=== PATIENT | female | born 1950 | race African-American/Black ===

== ENCOUNTER 2017-03-07 15:52 | Emergency (ER) | payer MEDICAID ==
[~2017-03-07] VITALS: Ht 177.8 cm; Wt 117.9 kg
[~2017-03-07 15:52] MED LIST: AMLODIPINE BESY10 MG ORAL; CIPROFLOXACIN500 M2 ORAL; CYCLOBENZAPRINE10 MG ORAL; DOXAZOSIN MESYLA4 MG ORAL; FLAGYL500 MG ORAL; HYDROCHLOROTHIA25 MG ORAL; LEVAQUIN500 MG ORAL; METOPROLOL TAR100 MG ORAL; METRONIDAZOLE500 MG ORAL; NORCO 10/3251 EA ORAL; SIMVASTATIN40 MG ORAL; SOMA350 MG PO; TRAZODONE HCL150 MG ORAL; UNOBMED
[2017-03-07 16:10] VITALS: BP 177/98
[2017-03-07 16:34] LABS: BASOPHILS % (AUTO) 0.7 % (0.0-2.0); EOSINOPHILS % (AUTO) 0.3 % (0.0-3.0); LYMPHOCYTES % (AUTO) 22.5 % (20.0-45.0); MEAN CORPUSCULAR HEMOGLOBIN 29.1 PG (27.0-31.0); MEAN CORPUSCULAR HGB CONC 33.1 G/DL (32.0-36.0); MEAN CORPUSCULAR VOLUME 88 FL (80-99); MEAN PLATELET VOLUME 8.1 FL (6.5-10.1); MONOCYTES % (AUTO) 7.4 % (1.0-10.0); NEUTROPHILS % (AUTO) 69.1 % (45.0-75.0); PLATELET COUNT 207 K/UL (150-450); RED BLOOD COUNT 4.64 M/UL (4.20-5.40); RED CELL DISTRIBUTION WIDTH 13.4 % (11.6-14.8); WHITE BLOOD COUNT 6.3 K/UL (4.8-10.8)
[2017-03-07 16:52] LABS: TROPONIN I < 0.30 ng/mL (<=0.30)
[2017-03-07 16:53] LABS: ALANINE AMINOTRANSFERASE 14 U/L (3-33); ALBUMIN/GLOBULIN RATIO 1.1 (1.0-2.7); ANION GAP 18 (5-15); ASPARTATE AMINO TRANSFERASE 28 U/L (5-40); CALCIUM 10.5 mg/dL (8.6-10.2); CARBON DIOXIDE 26 mEQ/L (20-30); CHLORIDE 99 mEQ/L (98-107); CREATININE 0.9 mg/dL (0.5-0.9); GLOMERULAR FILTRATION RATE > 60 mL/min (>60); HEMOLYSIS 0; POTASSIUM 3.4 mEQ/L (3.4-4.9); SODIUM 143 mEQ/L (135-145); TOTAL PROTEIN 7.7 g/dL (6.6-8.7)
[2017-03-07 17:03] LABS: CKMB 2.6 ng/mL (< 3.8)
[2017-03-07] MEDS ORDERED: Cephalexin 500mg cap ORAL ONE (18:15)
[2017-03-07] MEDS ORDERED: KEFLEX500 MG ORAL (18:21)
[2017-03-07 18:32] VITALS: BP 178/63
--- NOTE | 2017-03-07 19:20 | Emergency Room Report ---
History of Present Illness General Chief Complaint: Altered Level of Consciousness Source: Patient Present Illness HPI 66-year-old female presents to ED for evaluation. Patient brought in by daughter. Daughter states she is concerned that the patient may be having a stroke. Patient had a fall last week and another fall yesterday. Patient does not live with daughter. Daughter spoke to the patient states that she appeared confused after the fall. Patient did not appear confused at this time. Patient states she fell because of pain in her knees; has history of chronic pain in both knees and is on medication. Pain is a 10 out of 10, throbbing, nonradiating. Denies any headache, blurry vision, nausea or vomiting. Denies chest pain or shortness of breath. BP high at triage. States she did not take her medication today. No other aggravating or relieving factors. Denies any other associated symptoms Allergies: Coded Allergies: LISINOPRIL (Verified Allergy, Unknown, Hives, 04/12/14) Patient History Past Medical History: HTN Past Surgical History: none Pertinent Family History: none Social History: Denies: alcohol use, drug use, smoking Now: No Immunizations: UTD Reviewed Nursing Documentation: PMH: Agreed, PSxH: Agreed Nursing Documentation-PMH Past Medical History: No History, Except For Hx Cardiac Problems: Yes Hx Hypertension: Yes Hx Pacemaker: No - CHRONIC NECK PAIN Hx Cancer: No Hx Gastrointestinal Problems: Yes Hx Neurological Problems: No Review of Systems All Other Systems: negative except mentioned in HPI Physical Exam Vital Signs Date Time Temp Pulse Resp B/P Pulse Ox O2 Delivery O2 Flow Rate FiO2 5/20/17 16:04 96.3 62 22 192/109 96 Room Air Sp02 EP Interpretation: reviewed, normal General Appearance: no apparent distress, alert, GCS 15, non-toxic, obese Head: normocephalic, atraumatic Eyes: bilateral eye PERRL, bilateral eye normal inspection ENT: hearing grossly normal, normal pharynx, no angioedema, normal voice Neck: full range of motion, supple/symm/no masses Respiratory: chest non-tender, lungs clear, normal breath sounds, speaking full sentences Cardiovascular #1: regular rate, rhythm, no edema Cardiovascular #2: 2+ carotid (R), 2+ carotid (L), 2+ radial (R), 2+ radial (L) , 2+ dorsalis pedis (R), 2+ dorsalis pedis (L) Gastrointestinal: normal bowel sounds, non tender, soft, non-distended, no guarding, no rebound Rectal: deferred Genitourinary: normal inspection, no CVA tenderness Musculoskeletal: back normal, gait/station normal, normal range of motion, swelling - bilateral knees Neurologic: alert, oriented x3, responsive, motor strength/tone normal, sensory intact, speech normal Psychiatric: judgement/insight normal, memory normal, mood/affect normal, no suicidal/homicidal ideation Reflexes: 3+ bicep (R), 3+ bicep (L), 3+ tricep (R), 3+ tricep (L), 3+ knee (R) , 3+ knee (L) Skin: other - erythema/induration to LLE Lymphatic: no adenopathy Medical Decision Making Diagnostic Impression: Primary Impression: Forgetfulness Additional Impressions: Chronic pain of both knees Cellulitis of left leg Hypertension Qualified Codes: I10 - Essential (primary) hypertension ER Course Hospital Course 66-year-old female presents to ED for evaluation of forgetfulness, fall x2, chronic knee pain. daughter concerned for stroke Differential diagnoses include: arrythmia, dehydration, intracranial bleed, seizure Clinical course Patient placed on stretcher. on front desk monitor. After initial history and physical I ordered labs, EKG, chest Xray, IVFs, CT Brain, xrays of bilateral knees labs reviewed- no leukocytosis, Hb/Hct stable, electrolytes ok, troponins negative CT Brain - unremarkable Chest x-ray- no acute process EKG - NSR, no acute changes During my assessment patient had normal neurological exam. No slurred speech facial droop. No motor deficit. Patient is awake alert oriented x3, normal memory. patient does have erythema and induration to distal LLE consistent with cellulitis given keflex in ED X-rays of bilateral knee show significant reduction of joint spacing consistent with arthritis BP initially elevated, with some improvement noted without acute intervention. We will give patient her evening dose of blood pressure medication I discussed findings with patient and daughter. He agreed that patient can be discharged to home at this time pending followup with PMD this week I. I feel this is a highly complex case requiring extensive working including EKG/Rhythm strip, Xray/CT/US, Blood/urine lab work, repeat exams while in ED, and administration of strong opiates/narcotics for pain control, admission to hospital or close patient follow up. Diagnosis - forgetfulness, chronic pain of both knees, cellulitis of left leg, hypertension Stable and discharged to home with Rx Keflex. Followup with PMD. Return to ED if symptoms recur or worsen Labs Test 03/07/17 16:15 White Blood Count 6.3 K/UL (4.8-10.8) Red Blood Count 4.64 M/UL (4.20-5.40) Hemoglobin 13.5 G/DL (12.0-16.0) Hematocrit 40.8 % (37.0-47.0) Mean Corpuscular Volume 88 FL (80-99) Mean Corpuscular Hemoglobin 29.1 PG (27.0-31.0) Mean Corpuscular Hemoglobin Concent 33.1 G/DL (32.0-36.0) Red Cell Distribution Width 13.4 % (11.6-14.8) Platelet Count 207 K/UL (150-450) Mean Platelet Volume 8.1 FL (6.5-10.1) Neutrophils (%) (Auto) 69.1 % (45.0-75.0) Lymphocytes (%) (Auto) 22.5 % (20.0-45.0) Monocytes (%) (Auto) 7.4 % (1.0-10.0) Eosinophils (%) (Auto) 0.3 % (0.0-3.0) Basophils (%) (Auto) 0.7 % (0.0-2.0) Sodium Level 143 mEQ/L (135-145) Potassium Level 3.4 mEQ/L (3.4-4.9) Chloride Level 99 mEQ/L (98-107) Carbon Dioxide Level 26 mEQ/L (20-30) Anion Gap 18 (5-15) Blood Urea Nitrogen 19 mg/dL (7-23) Creatinine 0.9 mg/dL (0.5-0.9) Estimat Glomerular Filtration Rate > 60 mL/min (>60) Glucose Level 122 mg/dL (74-106) Calcium Level 10.5 mg/dL (8.6-10.2) Total Bilirubin 0.5 mg/dL (0.0-1.2) Aspartate Amino Transf (AST/SGOT) 28 U/L (5-40) Alanine Aminotransferase (ALT/SGPT) 14 U/L (3-33) Alkaline Phosphatase 240 U/L (35-104) Total Creatine Kinase 88 U/L (26-140) Creatine Kinase MB 2.6 ng/mL (< 3.8) Creatine Kinase MB Relative Index 2.9 Troponin I < 0.30 ng/mL (<=0.30) Total Protein 7.7 g/dL (6.6-8.7) Albumin 4.1 g/dL (3.5-5.2) Globulin 3.6 g/dL Albumin/Globulin Ratio 1.1 (1.0-2.7) EKG Diagnostic Results Rate: normal Rhythm: NSR ST Segments: no acute changes ASA given to the pt in ED: No Rhythm Strip Diag. Results EP Interpretation: yes Rhythm: NSR, no PVC's, no ectopy Chest X-Ray Diagnostic Results EP Interpretation: Yes Findings: no consolidation, no effusion, no pneumothorax, no acute cardiopulmonary disease Number of Views: 1 CT/MRI/US Diagnostic Results CT/MRI/US Diagnostic Results : Imaging Test Ordered: CT Head Impression no acute process Last Vital Signs Date Time Temp Pulse Resp B/P Pulse Ox O2 Delivery O2 Flow Rate FiO2 03/07/17 18:32 62 15 178/63 98 Room Air 03/07/17 16:10 98.3 Status: improved Disposition: HOME, SELF-CARE Condition: Stable Scripts Cephalexin* (KEFLEX*) 500 Mg Capsule 500 MG ORAL Q6H, #28 CAP 0 Refills Prov: GREG LUTZ M.D. 03/07/17 Referrals: NON PHYSICIAN (PCP) Patient Instructions: Cellulitis GREG LUTZ M.D. March 07, 2017 19:20
--- NOTE | 2017-03-08 09:01 | Diagnostic Imaging Report ---
Indications: Fall, left knee injury and pain Technique: 3 views left knee. Findings: Comparison: None Suprapatellar bursa is mildly distended and increased attenuation. No associated fat fluid level. No fracture, dislocation, joint space widening , surrounding soft tissue swelling/foreign body/gas, or other acute changes are identified. Lateral knee joint compartment [place] narrowed with marginal osteophyte formation. IMPRESSION: Small suprapatellar effusion, nonspecific No other evidence of acute injury to the left knee lateral knee joint osteoarthritis.
--- NOTE | 2017-03-08 09:02 | Diagnostic Imaging Report ---
Indication: Fall, chest injury and pain Technique: Single portable AP view of the chest. Findings: Comparison: None. The bones and extra pulmonary soft tissues, cardiomediastinal silhouette, pulmonary vasculature and parenchyma, and pleural surfaces are unremarkable. IMPRESSION: Negative portable AP chest--no evidence of acute injury.
--- NOTE | 2017-03-08 09:04 | Diagnostic Imaging Report ---
Indications: Fall, syncope, altered mental status Technique: Continuous helical CT imaging of the brain was performed with nonionic exposure control on a Siemens sensation [address] scanner. Axial and coronal images were reconstructed at 5 mm slice thickness and interval. CTDI volume(s): 70 mGy Total DLP: 1421 mGy-cm Findings: Comparison: None [place] low attenuation is present in the bilateral periventricular white matter. Ventricles, cisterns, and sulci are diffusely prominent. No evidence of mass or hemorrhage, mass effect, midline shift, hydrocephalus, or increased intracranial pressure. Bone window images demonstrate diffuse calvarial sclerosis, are otherwise unremarkable. Visualized paranasal sinuses and mastoid air cells are clear. IMPRESSION: No evidence of acute injury or other acute intracranial pathology Bilateral cerebral periventricular white matter low attenuation, nonspecific, likely chronic microvascular ischemic in nature. Atrophy. Apparent diffuse calvarial sclerosis. Underlying metabolic disorder or chronic Dilantin effect may be considered. Written preliminary report placed in PACS 03/07/[address] scanner at [facility] is accredited by the [employer] and the scans are performed using protocols designed to limit radiation exposure to as low as reasonably achievable to attain images of sufficient resolution adequate for diagnostic evaluation.
--- NOTE | 2017-03-09 08:34 | Diagnostic Imaging Report ---
Indications: Fall, right knee injury and pain Technique: 3 views right knee. Findings: Comparison: None Suprapatellar bursa is mildly distended and increased attenuation. No associated fat fluid level. No fracture, dislocation, joint space widening , surrounding soft tissue swelling/foreign body/gas, or other acute changes are identified. Lateral knee joint compartment severely narrowed with marginal osteophyte formation, subchondral sclerosis and cyst formation. IMPRESSION: Small suprapatellar effusion, nonspecific No other evidence of acute injury to the right knee lateral knee joint osteoarthritis.
--- NOTE | 2017-03-10 18:38 | Cardiology Report ---
APPROVED REPORT EKG Measurement Heart [id number] Sinus bradycardia Biatrial enlargement Abnormal ECG
== END 2017-03-07 18:34 | disposition home or self-care (01) ==
LOC: EMR 16:28
DX: R41.3 Other amnesia (principal); G89.29 Other chronic pain; M25.562 Pain in left knee; M25.561 Pain in right knee; L03.116 Cellulitis of left lower limb; I10 Essential (primary) hypertension; Z91.81 History of falling; Z88.8 Allergy status to other drugs, medicaments and biological substances
CPT/HCPCS: 36415; 70450; 71010; 73562; 80053; 82550; 82553; 84484; 85025; 93005; 96360; 99284; J7040

== ENCOUNTER 2017-03-25 15:11 | Inpatient (IN) | payer MEDICAID ==
[~2017-03-25] VITALS: Ht 177.8 cm; Wt 113.4 kg
[~2017-03-25 15:11] MED LIST changes: +KEFLEX500 MG ORAL
[2017-03-25] MEDS ORDERED: Bacitracin Oint UD TOPIC ONE (15:45)
[2017-03-25] MEDS ORDERED: TdaP Vaccine 0.5ml Syr IM ONE (15:45)
[2017-03-25 15:55] LABS: ABG PCO2 55.8 mmHg (35.0-45.0)
[2017-03-25 15:56] LABS: ABG ALLEN TEST POSITIVE; ABG BASE EXCESS 1.2
[2017-03-25 16:00] VITALS: BP 110/64
[2017-03-25 16:09] LABS: BASOPHILS % (AUTO) 0.3 % (0.0-2.0); LYMPHOCYTES % (AUTO) 29.1 % (20.0-45.0); MEAN CORPUSCULAR HEMOGLOBIN 26.1 PG (27.0-31.0); MEAN CORPUSCULAR HGB CONC 30.4 G/DL (32.0-36.0); MEAN CORPUSCULAR VOLUME 86 FL (80-99); MEAN PLATELET VOLUME 8.6 FL (6.5-10.1); MONOCYTES % (AUTO) 9.7 % (1.0-10.0); NEUTROPHILS % (AUTO) 59.8 % (45.0-75.0); PLATELET COUNT 183 K/UL (150-450); RED BLOOD COUNT 4.93 M/UL (4.20-5.40); RED CELL DISTRIBUTION WIDTH 13.4 % (11.6-14.8); WHITE BLOOD COUNT 3.8 K/UL (4.8-10.8)
[2017-03-25 16:09] LABS: APPEARANCE,URINE CLEAR; KETONES,URINE NEGATIVE (NEGATIVE); LEUKOCYTE ESTERASE ,URINE NEGATIVE (NEGATIVE); NITRITE,URINE NEGATIVE (NEGATIVE); PH,URINE 6 (4.5-8.0); PROTEIN,URINE 2+ (NEGATIVE); UROBILINOGEN,URINE NORMAL MG/DL (0.0-1.0)
[2017-03-25 16:19] LABS: BACTERIA,URINE FEW /HPF; RBC,URINE 0-2 /HPF (0 - 2); SQUAMOUS EPITHELIAL CELL,UR FEW /LPF (NONE/OCC); WBC,URINE 0-2 /HPF (0 - 2)
[2017-03-25 16:32] LABS: ACETAMINOPHEN < 10 ug/mL (10-30); ALANINE AMINOTRANSFERASE 29 U/L (3-33); ALCOHOL < 10 mg/dL; ANION GAP 13 (5-15); ASPARTATE AMINO TRANSFERASE 48 U/L (5-40); CALCIUM 9.8 mg/dL (8.6-10.2); CARBON DIOXIDE 28 mEQ/L (20-30); CHLORIDE 99 mEQ/L (98-107); CREATININE 1.5 mg/dL (0.5-0.9); GLOMERULAR FILTRATION RATE 42.3 mL/min (>60); HEMOLYSIS 30; POTASSIUM 2.9 mEQ/L (3.4-4.9); SODIUM 140 mEQ/L (135-145); TOTAL PROTEIN 7.4 g/dL (6.6-8.7)
[2017-03-25 16:33] LABS: AMMONIA 41 umol/L (11-51)
--- NOTE | 2017-03-25 16:33 | Emergency Room Report ---
History of Present Illness General Chief Complaint: Altered Level of Consciousness Source: Patient, Medical Record Present Illness HPI The patient was brought to emergency department by a friend. She spoke with a friend earlier this morning sounded normal. When the friend's cane this afternoon the patient was diaphoretic and was not responsive. She had difficulty getting the patient into the hospital. The patient has had at least 2 episodes of decreased mentation recently. One was felt related to a fall. She was evaluated here for this problem with the CAT scan and discharged to home. It's uncertain whether she's had more falling episodes of. Review of her medications suggest that she's taking soma and other analgesics. Uncertain whether she's taken excessive amounts of his medications recently. The patient has is wound on her left lower leg. There is swelling on that leg. There is no history of clots in the past. The friend does not know of any history of fevers. The patient has a colostomy which was performed after having a bout of diverticulitis. Allergies: Coded Allergies: LISINOPRIL (Verified Allergy, Unknown, Hives, 04/12/14) Patient History Limited by: medical condition Past Medical History: see triage record, old chart reviewed Past Surgical History: other - colostomy Social History Narrative lives by herself Reviewed Nursing Documentation: PMH: Agreed, PSxH: Agreed Nursing Documentation-PMH Past Medical History: No History, Except For Hx Cardiac Problems: Yes Hx Hypertension: Yes Hx Pacemaker: No - CHRONIC NECK PAIN Hx Cancer: No Hx Gastrointestinal Problems: Yes Hx Neurological Problems: No Review of Systems All Other Systems: limited Physical Exam Vital Signs Date Time Temp Pulse Resp B/P Pulse Ox O2 Delivery O2 Flow Rate FiO2 03/25/17 15:32 98.2 58 14 101/60 95 Room Air Sp02 EP Interpretation: reviewed, normal General Appearance: no apparent distress, lethargic - will answer to name Head: normocephalic Eyes: bilateral eye PERRL - small pupils, bilateral eye normal inspection ENT: dry mucus membranes - gag present Neck: supple Respiratory: lungs clear, normal breath sounds, other - decreased tidal volume but sat OK Cardiovascular #1: regular rate, rhythm Cardiovascular #2: 2+ radial (R) Gastrointestinal: normal inspection, non tender, no mass, non-distended, abnormal bowel sounds - decreased Musculoskeletal: back normal, normal range of motion, swelling - L calf Neurologic: responsive, sensory intact - all 4 to pain Reflexes: 1+ knee (R), 1+ knee (L) Skin: warm/dry, abrasions - L lower leg with surrounding erythema Medical Decision Making Diagnostic Impression: Primary Impression: Altered level of consciousness Additional Impressions: Leg abrasion, infected Qualified Codes: S80.812D - Abrasion, left lower leg, subsequent encounter; L08.9 - Local infection of the skin and subcutaneous tissue, unspecified Renal insufficiency Hypokalemia ER Course The patient presents with lethargy and stupor. She's not diaphoretic at this time. She's had recurrent falls. We need to exclude intracranial bleed or subdural hematoma. She has a nonfocal neurologic exam at this time but mentation is clearly depressed -- she does answer to her name. Her mucous membranes are dry suggesting an element of dehydration. With lethargy and the fact that she has Soma and Leander excessive medication is a consideration. In the past we noted cellulitis of the left leg. There appears to be an infection however this doesn't appear to be the cause of her altered mentation. There's unilateral swelling and DVT needs to be excluded. Respiratory drive is depressed and an ABG will assess her respiratory status. An EKG will be obtained to exclude cardiac cause. EKG was read by the computer as a STEMI however this EKG reading was in error. Chest x-ray reveals hyperventilation but no infiltrates. Is mild cardiomegaly. Blood gas has moderate hypercardia. This will be observed and consideration for BiPAP in the future if her mentation does not improve. One consideration would be to treat with narcan, however, I am electing to observe. CT of the head is negative. Labs are significant for positive tox screen for opiates and benzodiazepines. (No benzo Rx recorded -- family consider possible source = boyfriend). Decision to give trial of narcan as she is still lethargic. Improved mentation after narcan. Ultrasound neg for DVT. EKG repeated as first suggested acute injury. (Troponin neg.) Repeat EKG NSR, 63, nl axis and normal ST segments. Renal insufficiency. Will treat low potassium. Admit Dr. Butron telemetry. Laboratory Tests Test 03/25/17 15:40 03/25/17 15:44 03/25/17 16:00 White Blood Count 3.8 K/UL (4.8-10.8) L Red Blood Count 4.93 M/UL (4.20-5.40) Hemoglobin 12.9 G/DL (12.0-16.0) Hematocrit 42.4 % (37.0-47.0) Mean Corpuscular Volume 86 FL (80-99) Mean Corpuscular Hemoglobin 26.1 PG (27.0-31.0) L Mean Corpuscular Hemoglobin Concent 30.4 G/DL (32.0-36.0) L Red Cell Distribution Width 13.4 % (11.6-14.8) Platelet Count 183 K/UL (150-450) Mean Platelet Volume 8.6 FL (6.5-10.1) Neutrophils (%) (Auto) 59.8 % (45.0-75.0) Lymphocytes (%) (Auto) 29.1 % (20.0-45.0) Monocytes (%) (Auto) 9.7 % (1.0-10.0) Eosinophils (%) (Auto) 1.0 % (0.0-3.0) Basophils (%) (Auto) 0.3 % (0.0-2.0) Sodium Level 140 mEQ/L (135-145) Potassium Level 2.9 mEQ/L (3.4-4.9) L Chloride Level 99 mEQ/L (98-107) Carbon Dioxide Level 28 mEQ/L (20-30) Anion Gap 13 (5-15) Blood Urea Nitrogen 23 mg/dL (7-23) Creatinine 1.5 mg/dL (0.5-0.9) H Estimate Glomerular Filtration Rate 42.3 mL/min (>60) Glucose Level 117 mg/dL (74-106) H Calcium Level 9.8 mg/dL (8.6-10.2) Total Bilirubin 0.3 mg/dL (0.0-1.2) Aspartate Amino Transferase (AST) 48 U/L (5-40) H Alanine Aminotransferase (ALT) 29 U/L (3-33) Alkaline Phosphatase 234 U/L (35-104) H Ammonia 41 umol/L (11-51) Total Creatine Kinase 80 U/L (26-140) Troponin I < 0.30 ng/mL (<=0.30) Total Protein 7.4 g/dL (6.6-8.7) Albumin 3.7 g/dL (3.5-5.2) Globulin 3.7 g/dL Albumin/Globulin Ratio 1.0 (1.0-2.7) Salicylates Level < 1 mg/dL (10-30) L Acetaminophen Level < 10 ug/mL (10-30) L Serum Alcohol < 10 mg/dL Arterial Blood pH 7.324 (7.350-7.450) Arterial Blood Partial Pressure CO2 55.8 mmHg (35.0-45.0) *H Arterial Blood Partial Pressure O2 67.3 mmHg (75.0-100.0) L Arterial Blood HCO3 28.4 mmol/L (22.0-26.0) H Arterial Blood Oxygen Saturation 91.5 % (92.0-98.0) L Arterial Blood Base Excess 1.2 Kelvin Test Positive Urine Color Yellow Urine Appearance Clear Urine pH 6 (4.5-8.0) Urine Specific [place] 1.020 (1.005-1.035) Urine Protein 2+ (NEGATIVE) H Urine Glucose (UA) Negative (NEGATIVE) Urine Ketones Negative (NEGATIVE) Urine Occult Blood Negative (NEGATIVE) Urine Nitrite Negative (NEGATIVE) Urine Bilirubin Negative (NEGATIVE) Urine Urobilinogen Normal MG/DL (0.0-1.0) Urine Leukocyte Esterase Negative (NEGATIVE) Urine RBC 0-2 /HPF (0 - 2) Urine WBC 0-2 /HPF (0 - 2) Urine Squamous Epithelial Cells Few /LPF (NONE/OCC) Urine Bacteria Few /HPF (NONE) Urine Opiates Screen Positive (NEGATIVE) H Urine Barbiturates Screen Negative (NEGATIVE) Phencyclidine (PCP) Screen Negative (NEGATIVE) Urine Amphetamines Screen Negative (NEGATIVE) Urine Benzodiazepines Screen Positive (NEGATIVE) H Urine Cocaine Screen Negative (NEGATIVE) Urine Marijuana (THC) Screen Negative (NEGATIVE) EKG Diagnostic Results Rate: normal Rhythm: NSR ST Segments: other - EKG read as STEMI - I disagree - RBBB and NSSTTW changes Rhythm Strip Diag. Results EP Interpretation: yes Rhythm: NSR, no PVC's, no ectopy Chest X-Ray Diagnostic Results EP Interpretation: Yes Findings: no consolidation, no effusion, no pneumothorax, no acute cardiopulmonary disease, other - poor inspiration Number of Views: 1 CT/MRI/US Diagnostic Results CT/MRI/US Diagnostic Results #1: Imaging Test Ordered: head Impression no bleed - white matter changes CT/MRI/US Diagnostic Results #2: Imaging Test Ordered: non-invasive L leg Impression No DVT Last Vital Signs Date Time Temp Pulse Resp B/P Pulse Ox O2 Delivery O2 Flow Rate FiO2 03/26/17 00:00 97.3 56 20 122/71 100 Room Air 03/25/17 21:46 2.0 03/25/17 21:26 28 Status: improved Disposition: ADMITTED INPATIENT Condition: Serious Referrals: [facility],REFERRING (PCP) Rafat Daniels M.D. Mar 25, 2017 16:33
[2017-03-25 16:37] LABS: TROPONIN I < 0.30 ng/mL (<=0.30)
[2017-03-25] MEDS ORDERED: Naloxone 1mg/ml 2ml IVP ONE (17:30)
[2017-03-25 18:00] VITALS: BP 184/90
[2017-03-25] MEDS ORDERED: BACLOFEN10 MG ORAL (18:24)
[2017-03-25] MEDS ORDERED: TRIAMTERENE-HC1 EAC7 ORAL (18:24)
[2017-03-25] MEDS ORDERED: KCl 10% 40mEq/30ml liquid ORAL STA (18:45)
[2017-03-25] MEDS ORDERED: LORazepam Inj 2mg/ml 1ml IV PRN (19:15)
[2017-03-25] MEDS ORDERED: Mylanta II UD 30ml ORAL PRN (19:15)
[2017-03-25] MEDS ORDERED: Nitroglycerin Subl 0.4mg tab (Bottle Of 25) SL PRN (19:15)
[2017-03-25] MEDS ORDERED: Miralax 17gm pkt ORAL PRN (19:15)
[2017-03-25] MEDS ORDERED: DuoNeb 0.5-3(2.5)mg/3ml neb HHN PRN (19:15)
[2017-03-25 20:00] VITALS: BP 123/68
[2017-03-25 21:00] VITALS: BP 126/64
[2017-03-25 21:46] VITALS: BP 118/71
[2017-03-25] MEDS: Heparin 5000 units/ml inj SUBQ SCH (21:51)
[2017-03-25] MEDS: Morphine Sulfate 2mg/ml Inj IVP PRN (23:45)
[2017-03-26] VITALS: BP 122/71
[2017-03-26] MEDS: Morphine Sulfate 2mg/ml Inj IVP PRN ×3 (03:53→08:19)
[2017-03-26 04:12] VITALS: BP 151/71
[2017-03-26 08:11] VITALS: BP 146/74
[2017-03-26] MEDS: Heparin 5000 units/ml inj SUBQ SCH (08:20)
--- NOTE | 2017-03-26 09:09 | Diagnostic Imaging Report ---
Indication: Chest Pain Comparison: A single view chest radiograph was obtained. Findings: Mild interstitial edema suspected. Lung volumes are low. Heart is enlarged. Impression: Mild interstitial edema suspected
--- NOTE | 2017-03-26 09:09 | Diagnostic Imaging Report ---
Indication: Altered level of consciousness Technique: Contiguous 5 mm thick transaxial imaging of the head obtained in a Siemens Sensation [address] scanner. Soft tissue and bone windows generated. Total Dose length Product (DLP): [address] Dose Index Volume (CTDIvol): 70.38 mGy Comparison: 03/07/17 Findings: There is mild prominence of the ventricles, basal cisterns, and cerebral sulci consistent with atrophy. Mild, nonspecific, white matter hypoattenuation is noted throughout the brain consistent with chronic small vessel disease. There is no midline shift, edema, acute hemorrhage, mass effect, or abnormal extra-axial fluid collections. Bones and extra osseous soft tissues are unremarkable. Impression: No acute intracranial bleed, mass effect or edema. Mild atrophy of the brain. Nonspecific white matter hypoattenuation probably due to chronic small vessel disease. The CT scanner at [facility] is accredited by the [employer] and the scans are performed using dose optimization techniques as appropriate to a performed exam including Automatic Exposure control.
--- NOTE | 2017-03-26 11:44 | History and Physical ---
History of Present Illness General Date patient seen: Mar 26, 2017 Reason for Hospitalization: Altered Level of Consciousness Present Illness HPI 66 year old female with hx of HTN, chronic pain, was brought to emergency department by a friend because she was not responsive. she's taking soma and other analgesics. Uncertain whether she's taken excessive amounts of his medications recently. She was admitted to telemetry for ALOC. Initial evaluation showed that she had opiotes and benzos in her urine. This morning she is totally awake and asymtomatic and wants to go home. Allergies: Coded Allergies: LISINOPRIL (Verified Allergy, Unknown, Hives, 04/12/14) Medication History Scheduled Amlodipine Besylate* (Amlodipine Besylate*), 10 MG ORAL DAILY, (Reported) Baclofen* (Baclofen*), 10 MG ORAL NEEDED, (Reported) Cephalexin* (Keflex*), 500 MG ORAL Q6H Cyclobenzaprine Hcl* (Flexeril*), 10 MG ORAL THREE TIMES A DAY Doxazosin Mesylate* (Doxazosin Mesylate*), 4 MG ORAL DAILY, (Reported) Hydrochlorothiazide* (Hydrochlorothiazide*), 25 MG ORAL DAILY, (Reported) Simvastatin (Zocor), 40 MG ORAL BEDTIME, (Reported) Trazodone* (Trazodone*), 200 MG ORAL BEDTIME, (Reported) Triamterene/Hydrochlorothiazid (Triamterene-Hctz 37.5-25 Mg Cp), 1 CAP ORAL DAILY, (Reported) Scheduled PRN Carisoprodol* (Soma*), 350 MG PO Q6H PRN for For Pain, (Reported) Hydrocodone/Acetaminophen (Hydrocodon-Acetaminophn 10-325), 1 TAB ORAL Q6H PRN for For Pain, (Reported) Patient History Healthcare decision maker Resuscitation status Full Code Advanced Directive on File Past Medical/Surgical History Past Medical/Surgical History: (1) Chronic pain of both knees (2) Pericolonic abscess due to diverticulitis Review of Systems All Other Systems: negative except mentioned in HPI Physical Exam General Appearance: WD/WN, no apparent distress Lines, tubes and drains: peripheral HEENT: normocephalic, atraumatic Neck: non-tender, normal alignment Respiratory/Chest: chest wall non-tender, lungs clear Cardiovascular/Chest: normal peripheral pulses, normal rate Abdomen: normal bowel sounds Skin Exam: normal pigmentation Last 24 Hour Vital Signs Date Time Temp Pulse Resp B/P Pulse Ox O2 Delivery O2 Flow Rate FiO2 03/26/17 08:11 95.9 66 18 146/74 99 Nasal Cannula 2.0 66 03/26/17 08:00 55 03/26/17 07:10 98 Nasal Cannula 2.0 28 03/26/17 07:10 69 18 Nasal Cannula 2.0 28 03/26/17 07:10 Nasal Cannula 2.0 28 03/26/17 07:09 Nasal Cannula 2.0 28 03/26/17 07:09 98 Nasal Cannula 2.0 28 03/26/17 07:09 69 18 Nasal Cannula 2.0 28 03/26/17 04:12 97.5 61 20 151/71 100 Nasal Cannula 2.0 03/26/17 04:00 67 03/26/17 00:00 97.3 56 20 122/71 100 Room Air 03/25/17 23:39 55 03/25/17 21:46 97.0 66 20 118/71 99 Nasal Cannula 2.0 03/25/17 21:26 Nasal Cannula 2.0 28 03/25/17 21:25 66 16 Nasal Cannula 2.0 03/25/17 21:25 99 Nasal Cannula 2.0 28 03/25/17 21:00 98.3 64 14 126/64 100 Nasal Cannula 2.0 03/25/17 21:00 98.3 64 14 126/64 100 Nasal Cannula 2.0 03/25/17 20:00 98.1 64 17 123/68 100 Nasal Cannula 2.0 03/25/17 18:40 184/90 03/25/17 18:00 61 18 184/90 95 Nasal Cannula 2.0 03/25/17 16:00 56 12 110/64 97 Nasal Cannula 2.0 03/25/17 15:32 98.2 58 14 101/60 95 Room Air Intake and Output 03/25/17 03/26/17 19:00 07:00 Intake Total 1050 ml 1238 ml Output Total 600 ml Balance 1050 ml 638 ml Intake Oral 0 ml IV Total 1050 ml 1238 ml Output Urine Total 600 ml # Bowel Movements 1 Laboratory Tests Test 03/25/17 15:40 03/25/17 15:44 03/25/17 16:00 White Blood Count 3.8 K/UL (4.8-10.8) L Red Blood Count 4.93 M/UL (4.20-5.40) Hemoglobin 12.9 G/DL (12.0-16.0) Hematocrit 42.4 % (37.0-47.0) Mean Corpuscular Volume 86 FL (80-99) Mean Corpuscular Hemoglobin 26.1 PG (27.0-31.0) L Mean Corpuscular Hemoglobin Concent 30.4 G/DL (32.0-36.0) L Red Cell Distribution Width 13.4 % (11.6-14.8) Platelet Count 183 K/UL (150-450) Mean Platelet Volume 8.6 FL (6.5-10.1) Neutrophils (%) (Auto) 59.8 % (45.0-75.0) Lymphocytes (%) (Auto) 29.1 % (20.0-45.0) Monocytes (%) (Auto) 9.7 % (1.0-10.0) Eosinophils (%) (Auto) 1.0 % (0.0-3.0) Basophils (%) (Auto) 0.3 % (0.0-2.0) Sodium Level 140 mEQ/L (135-145) Potassium Level 2.9 mEQ/L (3.4-4.9) L Chloride Level 99 mEQ/L (98-107) Carbon Dioxide Level 28 mEQ/L (20-30) Anion Gap 13 (5-15) Blood Urea Nitrogen 23 mg/dL (7-23) Creatinine 1.5 mg/dL (0.5-0.9) H Estimat Glomerular Filtration Rate 42.3 mL/min (>60) Glucose Level 117 mg/dL (74-106) H Calcium Level 9.8 mg/dL (8.6-10.2) Total Bilirubin 0.3 mg/dL (0.0-1.2) Aspartate Amino Transf (AST/SGOT) 48 U/L (5-40) H Alanine Aminotransferase (ALT/SGPT) 29 U/L (3-33) Alkaline Phosphatase 234 U/L (35-104) H Ammonia 41 umol/L (11-51) Total Creatine Kinase 80 U/L (26-140) Troponin I < 0.30 ng/mL (<=0.30) Total Protein 7.4 g/dL (6.6-8.7) Albumin 3.7 g/dL (3.5-5.2) Globulin 3.7 g/dL Albumin/Globulin Ratio 1.0 (1.0-2.7) Salicylates Level < 1 mg/dL (10-30) L Acetaminophen Level < 10 ug/mL (10-30) L Serum Alcohol < 10 mg/dL Arterial Blood pH 7.324 (7.350-7.450) Arterial Blood Partial Pressure CO2 55.8 mmHg (35.0-45.0) *H Arterial Blood Partial Pressure O2 67.3 mmHg (75.0-100.0) L Arterial Blood HCO3 28.4 mmol/L (22.0-26.0) H Arterial Blood Oxygen Saturation 91.5 % (92.0-98.0) L Arterial Blood Base Excess 1.2 Kelvin Test Positive Urine Color Yellow Urine Appearance Clear Urine pH 6 (4.5-8.0) Urine Specific [place] 1.020 (1.005-1.035) Urine Protein 2+ (NEGATIVE) H Urine Glucose (UA) Negative (NEGATIVE) Urine Ketones Negative (NEGATIVE) Urine Occult Blood Negative (NEGATIVE) Urine Nitrite Negative (NEGATIVE) Urine Bilirubin Negative (NEGATIVE) Urine Urobilinogen Normal MG/DL (0.0-1.0) Urine Leukocyte Esterase Negative (NEGATIVE) Urine RBC 0-2 /HPF (0 - 2) Urine WBC 0-2 /HPF (0 - 2) Urine Squamous Epithelial Cells Few /LPF (NONE/OCC) Urine Bacteria Few /HPF (NONE) Urine Opiates Screen Positive (NEGATIVE) H Urine Barbiturates Screen Negative (NEGATIVE) Phencyclidine (PCP) Screen Negative (NEGATIVE) Urine Amphetamines Screen Negative (NEGATIVE) Urine Benzodiazepines Screen Positive (NEGATIVE) H Urine Cocaine Screen Negative (NEGATIVE) Urine Marijuana (THC) Screen Negative (NEGATIVE) Height (Feet): 5 Height (Inches): 10.00 Weight (Pounds): 250 Medications Current Medications Medications (Trade) Dose Ordered Sig/Debbie Route PRN Reason Start Time Stop Time Status Last Admin Dose Admin Acetaminophen (Tylenol) 650 mg Q4H PRN ORAL fever 03/25/17 19:15 04/24/17 19:14 Al Hydroxide/Mg Hydroxide (Mylanta II) 30 ml Q6H PRN ORAL dyspepsia 03/25/17 19:15 04/24/17 19:14 Albuterol/ Ipratropium (DuoNeb 0.5-3(2.5)mg/3ml) 3 ml EVERY 4 HOURS PRN HHN Shortness of Breath 03/25/17 19:15 03/30/17 19:14 Clonidine HCl (Catapres) 0.1 mg Q4H PRN ORAL For High Blood Pressure 03/25/17 19:15 04/24/17 19:14 Dextrose (Dextrose 50%) STAT PRN IV Hypoglycemia 03/25/17 19:15 04/24/17 19:14 Heparin Sodium (Porcine) (Heparin 5000 units/ml) 5,000 units EVERY 12 HOURS SUBQ 03/25/17 21:00 04/24/17 20:59 03/26/17 08:20 Lorazepam (Ativan 2mg/ml 1ml) 0.5 mg Q4H PRN IV For Anxiety 03/25/17 19:15 04/01/17 19:14 Morphine Sulfate (Morphine Sulfate) 1 mg EVERY 4 HOURS PRN IVP For Pain 7-03/25/17 19:15 04/01/17 19:14 03/26/17 08:19 Nitroglycerin (Ntg) 0.4 mg Q5M X 3 DOSES PRN SL Prn Chest Pain 03/25/17 19:15 04/24/17 19:14 Ondansetron HCl (Zofran) 4 mg Q6H PRN IVP Nausea & Vomiting 03/25/17 19:15 04/24/17 19:14 Polyethylene Glycol (Miralax) 17 gm HSPRN PRN ORAL Constipation 03/25/17 19:15 04/24/17 19:14 Sodium Chloride (Sodium Chloride 1000ml bag) 1,000 ml @ 150 mls/hr Q6H40M IV 03/25/17 15:45 04/24/17 15:44 03/26/17 05:58 Temazepam (Restoril) 15 mg HSPRN PRN ORAL Insomnia 03/25/17 19:15 04/01/17 19:14 Assessment/Plan Problem List: (1) Altered level of consciousness ICD Codes: R40.4 - Transient alteration of awareness SNOMED: 3081537 (2) Chronic pain of both knees ICD Codes: M25.561 - Pain in right knee; M25.562 - Pain in left knee; G89.29 - Other chronic pain SNOMED: 51274728, 16724881 (3) Hypokalemia ICD Codes: E87.6 - Hypokalemia SNOMED: 81513767, [id number] Assessment/Plan improved dc home with outpatient psych evaluation no suicidal intention was noticed TATYANA PALOMINO Mar 26, 2017 11:43
[2017-03-26 12:00] VITALS: BP 121/72
--- NOTE | 2017-03-27 12:15 | Discharge Summary ---
Discharge Summary Hospital Course Date of Admission Mar 25, 2017 at 15:50 Date of Discharge Mar 26, 2017 at 13:37 Admitting Diagnosis stupor HPI Hilaria Hayward is a 66 year old female who was admitted on Mar 25, 2017 at 15:50 for [facility] Hospital Course [id number] Discharge Discharge Disposition Patient was discharged to Home (01) Discharge Diagnoses: Wendi Moore NP Mar 27, 2017 12:15
--- NOTE | 2017-03-28 01:45 | Discharge Summary 2 SIG ---
DATE OF ADMISSION: 03/25/2017 DATE OF DISCHARGE: 03/26/2017 BRIEF HOSPITAL COURSE: The patient is a 66-year-old female, who was brought in by a friend due to altered level of consciousness. The patient was reported to be normal earlier in the morning and in the afternoon was diaphoretic and was not responsive. She had at least two episodes of decreased mentation recently. She was evaluated prior for same problems and CAT scan was done and was discharged home. Review of her medications suggest that she is on Soma and other analgesics and had a wound on the left leg with swelling. On evaluation at ED, she had nonfocal neurologic examination, but mentation was clearly depressed. Chest x-ray showed hyperventilation, but no infiltrates. Blood gas has moderate hypercapnia. CT of the head was negative. Urine toxicology was positive for opiates and benzodiazepines. She was given Narcan. Ultrasound of the leg was negative for DVT. Laboratories showed low potassium and renal insufficiency. EKG repeat showed normal sinus rhythm with normal axis and normal ST segments. She was unstable for transfer and was admitted to telemetry. Following day, the patient is fully awake and asymptomatic. Symptoms improved and the patient was discharged home. Recommended outpatient psychiatric evaluation. FINAL DIAGNOSES: 1. Altered level of consciousness/acute toxic metabolic encephalopathy. 2. Chronic pain on both knees. 3. Hypokalemia. Murray Burton M.D. I have been assigned to dictate discharge summary on this account and I was not involved in the patient's management. Wendi Moore N.P. DR: NICOLE JOB#: [id number] CC:
== END 2017-03-26 13:37 | disposition home or self-care (01) | DRG 52 ==
LOC: EMR 15:40 → 2E 15:50 → EDBEDREQ 20:01 → 2E 21:17
DX: G92 Toxic encephalopathy (principal); I10 Essential (primary) hypertension; E87.6 Hypokalemia; E86.0 Dehydration; G89.29 Other chronic pain; M25.562 Pain in left knee; L08.9 Local infection of the skin and subcutaneous tissue, unspecified; M25.561 Pain in right knee; N28.9 Disorder of kidney and ureter, unspecified; Z91.81 History of falling
CPT/HCPCS: 36415; 36600; 70450; 71010; 80053; 80300; 80329; 81003; 82140; 82550; 82803; 84484; 85025; 90471; 90715; 93005; 93306; 93880; 93971; 94664; 94760; J2310

== ENCOUNTER 2017-04-17 12:03 | Inpatient (IN) | payer MEDICAID ==
[~2017-04-17] VITALS: Ht 175.3 cm; Wt 95.3 kg
[~2017-04-17 12:03] MED LIST changes: +BACLOFEN10 MG ORAL; +TRIAMTERENE-HC1 EAC7 ORAL
[2017-04-17 12:40] LABS: BASOPHILS % (AUTO) 0.2 % (0.0-2.0); EOSINOPHILS % (AUTO) 0.1 % (0.0-3.0); LYMPHOCYTES % (AUTO) 13.3 % (20.0-45.0); MEAN CORPUSCULAR HEMOGLOBIN 27.8 PG (27.0-31.0); MEAN CORPUSCULAR HGB CONC 31.4 G/DL (32.0-36.0); MEAN CORPUSCULAR VOLUME 88 FL (80-99); MEAN PLATELET VOLUME 8.2 FL (6.5-10.1); NEUTROPHILS % (AUTO) 80.6 % (45.0-75.0); PLATELET COUNT 205 K/UL (150-450); RED BLOOD COUNT 4.73 M/UL (4.20-5.40); WHITE BLOOD COUNT 6.1 K/UL (4.8-10.8)
[2017-04-17 12:45] VITALS: BP 156/62
[2017-04-17 12:52] LABS: ACETAMINOPHEN < 10 ug/mL (10-30); ALANINE AMINOTRANSFERASE 23 U/L (3-33); ALBUMIN/GLOBULIN RATIO 0.9 (1.0-2.7); ALCOHOL < 10 mg/dL; ANION GAP 17 (5-15); ASPARTATE AMINO TRANSFERASE 101 U/L (5-40); CARBON DIOXIDE 24 mEQ/L (20-30); CHLORIDE 101 mEQ/L (98-107); CREATININE 1.5 mg/dL (0.5-0.9); GLOMERULAR FILTRATION RATE 42.3 mL/min (>60); HEMOLYSIS 6; POTASSIUM 3.4 mEQ/L (3.4-4.9); SODIUM 142 mEQ/L (135-145); TOTAL PROTEIN 8.1 g/dL (6.6-8.7)
[2017-04-17 12:56] LABS: AMMONIA 13 umol/L (11-51)
[2017-04-17 13:21] LABS: TROPONIN I < 0.30 ng/mL (<=0.30)
--- NOTE | 2017-04-17 13:25 | Emergency Room Report ---
History of Present Illness General Chief Complaint: Altered Level of Consciousness Source: Medical Record, EMS Present Illness HPI The patient was brought in with altered mental status. She came in via EMS. Her Accu-Chek was normal. She is unable to answer questions at this time. Paramedics did not get a focal neurologic exam. She's not cooperative for them. Eyes are open but she's not focalizing or responding to commands. Apparently, her colostomy broke at home. Apparently her boyfriend called daughter who then called 911. Glucose normal in field. She has many pain medicines. She had a similar presentation and was admitted 03/25, discharged next day. This was the admission note: The patient was brought to emergency department by a friend. She spoke with a friend earlier this morning sounded normal. When the friend's cane this afternoon the patient was diaphoretic and was not responsive. She had difficulty getting the patient into the hospital. The patient has had at least 2 episodes of decreased mentation recently. One was felt related to a fall. She was evaluated here for this problem with the CAT scan and discharged to home. It's uncertain whether she's had more falling episodes of. Review of her medications suggest that she's taking soma and other analgesics. Uncertain whether she's taken excessive amounts of his medications recently. The patient has is wound on her left lower leg. There is swelling on that leg. There is no history of clots in the past. The friend does not know of any history of fevers. The patient has a colostomy which was performed after having a bout of diverticulitis. Discharge Dx: 1. Altered level of consciousness/acute toxic metabolic encephalopathy. 2. Chronic pain on both knees. 3. Hypokalemia. Allergies: Coded Allergies: LISINOPRIL (Verified Allergy, Unknown, Hives, 04/12/14) Patient History Limited by: medical condition Past Medical History: see triage record Social History: Reports: drug use - RX, Denies: smoking Social History Narrative with boyfriend Reviewed Nursing Documentation: PMH: Agreed, PSxH: Agreed Nursing Documentation-PMH Past Medical History: No History, Except For Hx Cardiac Problems: Yes Hx Hypertension: Yes Hx Pacemaker: No - CHRONIC NECK PAIN Hx Cancer: No Hx Gastrointestinal Problems: Yes Hx Neurological Problems: No Review of Systems All Other Systems: limited Physical Exam Vital Signs Date Time Temp Pulse Resp B/P Pulse Ox O2 Delivery O2 Flow Rate FiO2 04/17/17 11:52 99.1 75 16 174/85 99 Room Air Sp02 EP Interpretation: reviewed, normal General Appearance: no apparent distress, non-toxic, Stupor - minimal response to pain Head: normocephalic, atraumatic Eyes: bilateral eye EOMI, bilateral eye PERRL ENT: moist mucus membranes Neck: supple Respiratory: lungs clear, normal breath sounds Cardiovascular #1: regular rate, rhythm Cardiovascular #2: 2+ radial (R) Gastrointestinal: normal inspection, normal bowel sounds, non tender, no mass, non-distended Musculoskeletal: back normal, gait/station normal, normal range of motion Neurologic: other - + gag, min withdrawal to pain Psychiatric: other - stupor Skin: other - pressure sore L cheek Medical Decision Making Diagnostic Impression: Primary Impression: Stupor Additional Impression: Polypharmacy overdose ER Course Patient presents with ALOC. DDx: OD, electrolyte abnormalities, CVA, bleed, encephalopathy from other sources, occult infection (amongst others). Needs emergent evaluation with labs, EKG, CT head. Patient protecting airway at the time. The patient is in a stupor. She's protecting her airway at this time. However were going to give her a test dose of Narcan to make sure that she responds. Patient some more responsive after narcan. Still stuporous. ABG not need intubation. Consideration for narcan drip - Gag still present, ABG no resp acidosis - stable without drip. Admit tele Dr. Burton. Contact Dr Gilbert for consultation Laboratory Tests Test 04/17/17 12:10 04/17/17 13:45 04/17/17 14:45 White Blood Count 6.1 K/UL (4.8-10.8) Red Blood Count 4.73 M/UL (4.20-5.40) Hemoglobin 13.1 G/DL (12.0-16.0) Hematocrit 41.8 % (37.0-47.0) Mean Corpuscular Volume 88 FL (80-99) Mean Corpuscular Hemoglobin 27.8 PG (27.0-31.0) Mean Corpuscular Hemoglobin Concent 31.4 G/DL (32.0-36.0) L Red Cell Distribution Width 14.0 % (11.6-14.8) Platelet Count 205 K/UL (150-450) Mean Platelet Volume 8.2 FL (6.5-10.1) Neutrophils (%) (Auto) 80.6 % (45.0-75.0) H Lymphocytes (%) (Auto) 13.3 % (20.0-45.0) L Monocytes (%) (Auto) 6.0 % (1.0-10.0) Eosinophils (%) (Auto) 0.1 % (0.0-3.0) Basophils (%) (Auto) 0.2 % (0.0-2.0) Sodium Level 142 mEQ/L (135-145) Potassium Level 3.4 mEQ/L (3.4-4.9) Chloride Level 101 mEQ/L (98-107) Carbon Dioxide Level 24 mEQ/L (20-30) Anion Gap 17 (5-15) H Blood Urea Nitrogen 36 mg/dL (7-23) H Creatinine 1.5 mg/dL (0.5-0.9) H Estimate Glomerular Filtration Rate 42.3 mL/min (>60) Glucose Level 158 mg/dL (74-106) H Lactic Acid Level 1.30 mmol/L (0.66-2.22) Calcium Level 10.0 mg/dL (8.6-10.2) Total Bilirubin 0.4 mg/dL (0.0-1.2) Aspartate Amino Transferase (AST) 101 U/L (5-40) H Alanine Aminotransferase (ALT) 23 U/L (3-33) Alkaline Phosphatase 173 U/L (35-104) H Ammonia 13 umol/L (11-51) Total Creatine Kinase 3554 U/L (26-140) H Troponin I < 0.30 ng/mL (<=0.30) Total Protein 8.1 g/dL (6.6-8.7) Albumin 3.9 g/dL (3.5-5.2) Globulin 4.2 g/dL Albumin/Globulin Ratio 0.9 (1.0-2.7) L Salicylates Level < 1 mg/dL (10-30) L Acetaminophen Level < 10 ug/mL (10-30) L Serum Alcohol < 10 mg/dL Urine Color Pale yellow Urine Appearance Clear Urine pH 5 (4.5-8.0) Urine Specific [place] 1.015 (1.005-1.035) Urine Protein 1+ (NEGATIVE) H Urine Glucose (UA) Negative (NEGATIVE) Urine Ketones Negative (NEGATIVE) Urine Occult Blood 5+ (NEGATIVE) H Urine Nitrite Negative (NEGATIVE) Urine Bilirubin Negative (NEGATIVE) Urine Urobilinogen Normal MG/DL (0.0-1.0) Urine Leukocyte Esterase Negative (NEGATIVE) Urine RBC 2-4 /HPF (0 - 2) H Urine WBC 0-2 /HPF (0 - 2) Urine Squamous Epithelial Cells Few /LPF (NONE/OCC) Urine Bacteria Few /HPF (NONE) Urine Hyaline Casts 0-2 /LPF (NONE) H Urine Opiates Screen Positive (NEGATIVE) H Urine Barbiturates Screen Negative (NEGATIVE) Phencyclidine (PCP) Screen Negative (NEGATIVE) Urine Amphetamines Screen Negative (NEGATIVE) Urine Benzodiazepines Screen Positive (NEGATIVE) H Urine Cocaine Screen Negative (NEGATIVE) Urine Marijuana (THC) Screen Negative (NEGATIVE) Arterial Blood pH 7.400 (7.350-7.450) Arterial Blood Partial Pressure CO2 38.2 mmHg (35.0-45.0) Arterial Blood Partial Pressure O2 73.8 mmHg (75.0-100.0) L Arterial Blood HCO3 23.2 mmol/L (22.0-26.0) Arterial Blood Oxygen Saturation 94.7 % (92.0-98.0) Arterial Blood Base Excess -1.3 Kelvin Test Positive EKG Diagnostic Results Rate: normal Rhythm: NSR ST Segments: no acute changes Rhythm Strip Diag. Results EP Interpretation: yes Rhythm: NSR, no PVC's, no ectopy Chest X-Ray Diagnostic Results Chest X-Ray Diagnostic Results : Chest X-Ray Ordered: Yes # of Views/Limited/Complete: 1 View EP Interpretation: Yes Interpretation: no consolidation, no effusion, no pneumothorax, no acute cardiopulmonary disease Indication: Other Impression: No acute disease Interpreting ER Provider: Electronically signed by Rafat Daniels MD Last Vital Signs Date Time Temp Pulse Resp B/P Pulse Ox O2 Delivery O2 Flow Rate FiO2 04/18/17 00:00 96 04/18/17 00:00 98.2 20 169/78 97 Room Air Status: improved Disposition: ADMITTED INPATIENT Condition: Serious Referrals: [facility],REFERRING (PCP) Rafat Daniels M.D. Apr 17, 2017 13:25
[2017-04-17] MEDS ORDERED: CYMBALTA60 MG ORAL (13:33)
[2017-04-17] MEDS ORDERED: PROMETHAZINE V473 ML PO (13:33)
[2017-04-17] MEDS ORDERED: GABAPENTIN300 MG ORAL (13:33)
[2017-04-17] MEDS ORDERED: DICLOFENAC SODI75 MG ORAL (13:36)
[2017-04-17] MEDS ORDERED: METOPROLOL TAR100 M1 ORAL (13:36)
[2017-04-17] MEDS ORDERED: BACTRIM-DS1 EA ORAL (13:38)
[2017-04-17 13:47] VITALS: BP 150/74
--- NOTE | 2017-04-17 13:49 | Diagnostic Imaging Report ---
Indications: Altered mental status Technique: Spiral acquisitions obtained through the brain. Angled axial and coronal 5 x 5 mm slices were reconstructed. Total dose length product 1495 mGycm. CTDI vol(s) 70 mGy. Dose reduction achieved using automated exposure control Comparison: 03/25/2017 Findings: Again demonstrated is prominence of the ventricles and extra-axial CSF spaces, particularly the former. No acute hemorrhage or edema. No mass effect or midline shift. Normal galindo-white differentiation. Visualized orbits and sinuses are unremarkable. Intact calvarium. Impression: Chronic and age-related changes, as described, stable since 03/25/2017. Negative for acute intracranial bleed or mass effect The CT scanner at [facility] is accredited by the [employer] and the scans are performed using protocols designed to limit radiation exposure to as low as reasonably achievable to attain images of sufficient resolution adequate for diagnostic evaluation.
[2017-04-17 13:58] LABS: APPEARANCE,URINE CLEAR; KETONES,URINE NEGATIVE (NEGATIVE); LEUKOCYTE ESTERASE ,URINE NEGATIVE (NEGATIVE); NITRITE,URINE NEGATIVE (NEGATIVE); PH,URINE 5 (4.5-8.0); PROTEIN,URINE 1+ (NEGATIVE); UROBILINOGEN,URINE NORMAL MG/DL (0.0-1.0)
[2017-04-17] MEDS ORDERED: Naloxone 1mg/ml 2ml IVP ONE (14:00)
[2017-04-17 14:10] LABS: BACTERIA,URINE FEW /HPF; HYALINE CASTS, URINE 0-2 /LPF; SQUAMOUS EPITHELIAL CELL,UR FEW /LPF (NONE/OCC); WBC,URINE 0-2 /HPF (0 - 2)
[2017-04-17 14:56] LABS: ABG ALLEN TEST POSITIVE; ABG BASE EXCESS -1.3; ABG PCO2 38.2 mmHg (35.0-45.0)
--- NOTE | 2017-04-17 15:08 | Diagnostic Imaging Report ---
Indication: Chest pain Technique: One view of the chest Comparison: 03/25/2017 Findings: The lungs and pleural spaces are clear. Heart size is upper limits of normal. There are degenerative changes of the thoracic spine. No significant change Impression: No acute process
[2017-04-17 16:14] VITALS: BP 210/82
--- NOTE | 2017-04-17 16:19 | History and Physical ---
History of Present Illness General Date patient seen: Apr 17, 2017 Time patient seen: 15:30 Reason for Hospitalization: Altered Level of Consciousness Present Illness HPI 66 y/old female was brought in with altered mental status. Boyfriend found her lying on the floor and called her daughter. who in turn called paramedics Accu-Chek was stable, WNL She was unable to answer questions at that time. Eyes were open but she' was not focalizing or responding to commands. patient was afebrile, no leucocytosis CT head no acute findings CXR no acute findings CK -3554 elevated blood pressure , highest 210/82 elevated alkaline phosphatase BUN 36 and creat 1.6 Narcan x 1 given, brief response, then fell in sleep again ABG no evidence of respiratory acidosis patient was able to protect her airway/intact gag reflex patient was admitted to telemetry floor Allergies: Coded Allergies: LISINOPRIL (Verified Allergy, Unknown, Hives, 04/12/14) Medication History Scheduled Amlodipine Besylate* (Amlodipine Besylate*), 10 MG ORAL DAILY, (Reported) Baclofen* (Baclofen*), 10 MG ORAL NEEDED, (Reported) Cephalexin* (Keflex*), 500 MG ORAL Q6H Cyclobenzaprine Hcl* (Flexeril*), 10 MG ORAL THREE TIMES A DAY Diclofenac Sod* (Voltaren*), 75 MG ORAL BID, (Reported) Doxazosin Mesylate* (Doxazosin Mesylate*), 4 MG ORAL DAILY, (Reported) Duloxetine Hcl* (Cymbalta*), 60 MG ORAL BID, (Reported) Gabapentin* (Gabapentin*), 300 MG ORAL BEDTIME, (Reported) Hydrochlorothiazide* (Hydrochlorothiazide*), 25 MG ORAL DAILY, (Reported) Metoprolol Tartrate* (Metoprolol Tartrate*), 100 MG ORAL EVERY 12 HOURS, ( Reported) Simvastatin (Zocor), 40 MG ORAL BEDTIME, (Reported) Trazodone* (Trazodone*), 200 MG ORAL BEDTIME, (Reported) Triamterene/Hydrochlorothiazid (Triamterene-Hctz 37.5-25 Mg Cp), 1 CAP ORAL DAILY, (Reported) Trimethoprim/Sulfamethoxazole (Bactrim Ds Tablet), 1 TAB ORAL TWICE A DAY, ( Reported) Scheduled PRN Carisoprodol* (Soma*), 350 MG PO Q6H PRN for For Pain, (Reported) Hydrocodone/Acetaminophen (Hydrocodon-Acetaminophn 10-325), 1 TAB ORAL Q6H PRN for For Pain, (Reported) Miscellaneous Medications Phenylephrine HCl/Prometh HCl (Promethazine Vc Syrup), Unknown Dose PO, ( Reported) Patient History Limited by: medical condition History Provided By: Family Member Healthcare decision maker Resuscitation status Advanced Directive on File Past Medical/Surgical History Past Medical/Surgical History: (1) Sciatica neuralgia (2) Chronic back pain (3) Hypertension (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 Review of Systems ROS Narrative unable to collect due to ALOC Physical Exam General Appearance: no apparent distress, lethargic Lines, tubes and drains: peripheral HEENT: normocephalic, atraumatic, anicteric Neck: supple Respiratory/Chest: chest wall non-tender, lungs clear, no respiratory distress , no accessory muscle use Cardiovascular/Chest: normal peripheral pulses, normal rate, regular rhythm, other - edema +1 BLE Abdomen: normal bowel sounds, non tender - obese, soft Skin Exam: warm/dry, other - abrasion L cheek and left forearm Neurologic: other - lethargic Musculoskeletal: normal muscle bulk Last 24 Hour Vital Signs Date Time Temp Pulse Resp B/P Pulse Ox O2 Delivery O2 Flow Rate FiO2 04/17/17 15:12 203/92 04/17/17 13:47 66 20 150/74 99 Room Air 04/17/17 12:45 97.6 69 22 156/62 100 Room Air 04/17/17 11:52 99.1 75 16 174/85 99 Room Air Laboratory Tests Test 04/17/17 12:10 04/17/17 13:45 04/17/17 14:45 White Blood Count 6.1 K/UL (4.8-10.8) Red Blood Count 4.73 M/UL (4.20-5.40) Hemoglobin 13.1 G/DL (12.0-16.0) Hematocrit 41.8 % (37.0-47.0) Mean Corpuscular Volume 88 FL (80-99) Mean Corpuscular Hemoglobin 27.8 PG (27.0-31.0) Mean Corpuscular Hemoglobin Concent 31.4 G/DL (32.0-36.0) L Red Cell Distribution Width 14.0 % (11.6-14.8) Platelet Count 205 K/UL (150-450) Mean Platelet Volume 8.2 FL (6.5-10.1) Neutrophils (%) (Auto) 80.6 % (45.0-75.0) H Lymphocytes (%) (Auto) 13.3 % (20.0-45.0) L Monocytes (%) (Auto) 6.0 % (1.0-10.0) Eosinophils (%) (Auto) 0.1 % (0.0-3.0) Basophils (%) (Auto) 0.2 % (0.0-2.0) Sodium Level 142 mEQ/L (135-145) Potassium Level 3.4 mEQ/L (3.4-4.9) Chloride Level 101 mEQ/L (98-107) Carbon Dioxide Level 24 mEQ/L (20-30) Anion Gap 17 (5-15) H Blood Urea Nitrogen 36 mg/dL (7-23) H Creatinine 1.5 mg/dL (0.5-0.9) H Estimat Glomerular Filtration Rate 42.3 mL/min (>60) Glucose Level 158 mg/dL (74-106) H Lactic Acid Level 1.30 mmol/L (0.66-2.22) Calcium Level 10.0 mg/dL (8.6-10.2) Total Bilirubin 0.4 mg/dL (0.0-1.2) Aspartate Amino Transf (AST/SGOT) 101 U/L (5-40) H Alanine Aminotransferase (ALT/SGPT) 23 U/L (3-33) Alkaline Phosphatase 173 U/L (35-104) H Ammonia 13 umol/L (11-51) Total Creatine Kinase 3554 U/L (26-140) H Troponin I < 0.30 ng/mL (<=0.30) Total Protein 8.1 g/dL (6.6-8.7) Albumin 3.9 g/dL (3.5-5.2) Globulin 4.2 g/dL Albumin/Globulin Ratio 0.9 (1.0-2.7) L Salicylates Level < 1 mg/dL (10-30) L Acetaminophen Level < 10 ug/mL (10-30) L Serum Alcohol < 10 mg/dL Urine Color Pale yellow Urine Appearance Clear Urine pH 5 (4.5-8.0) Urine Specific [place] 1.015 (1.005-1.035) Urine Protein 1+ (NEGATIVE) H Urine Glucose (UA) Negative (NEGATIVE) Urine Ketones Negative (NEGATIVE) Urine Occult Blood 5+ (NEGATIVE) H Urine Nitrite Negative (NEGATIVE) Urine Bilirubin Negative (NEGATIVE) Urine Urobilinogen Normal MG/DL (0.0-1.0) Urine Leukocyte Esterase Negative (NEGATIVE) Urine RBC 2-4 /HPF (0 - 2) H Urine WBC 0-2 /HPF (0 - 2) Urine Squamous Epithelial Cells Few /LPF (NONE/OCC) Urine Bacteria Few /HPF (NONE) Urine Hyaline Casts 0-2 /LPF (NONE) H Urine Opiates Screen Positive (NEGATIVE) H Urine Barbiturates Screen Negative (NEGATIVE) Phencyclidine (PCP) Screen Negative (NEGATIVE) Urine Amphetamines Screen Negative (NEGATIVE) Urine Benzodiazepines Screen Positive (NEGATIVE) H Urine Cocaine Screen Negative (NEGATIVE) Urine Marijuana (THC) Screen Negative (NEGATIVE) Arterial Blood pH 7.400 (7.350-7.450) Arterial Blood Partial Pressure CO2 38.2 mmHg (35.0-45.0) Arterial Blood Partial Pressure O2 73.8 mmHg (75.0-100.0) L Arterial Blood HCO3 23.2 mmol/L (22.0-26.0) Arterial Blood Oxygen Saturation 94.7 % (92.0-98.0) Arterial Blood Base Excess -1.3 Kelvin Test Positive Height (Feet): 5 Height (Inches): 9.00 Weight (Pounds): 210 Medications Current Medications Medications (Trade) Dose Ordered Sig/Debbie Route PRN Reason Start Time Stop Time Status Last Admin Dose Admin Sodium Chloride (Sodium Chloride 1000ml bag) 1,000 ml @ 300 mls/hr Q3H20M IV 04/17/17 12:15 05/17/17 12:14 04/17/17 12:33 Assessment/Plan Assessment/Plan ASSESSMENT acute toxic encephalopathy 2 to overdose overdose on pain medications rhabdo acute renal failure HTN urgency colostomy PLAN OF CARE admit to tele s/p Narcan CT head no acute intracranial pathology urine tox screen + benzo and opiates gag intact, will hold on Narcan gtt for now neuro checks and gag reflex q2 IVF monitor renal parameters, lytes trend CK renal US BP management with IV Hydralazine DVT prophylaxis wound nurse eval psych eval case discussed and evaluated by supervising physician Jason (Esther),Mary CHAIREZ Apr 17, 2017 16:19
[2017-04-17] MEDS ORDERED: DuoNeb 0.5-3(2.5)mg/3ml neb HHN PRN (16:30)
[2017-04-17 17:01] VITALS: BP 175/75
[2017-04-17] MEDS: D5 1/2NS 1,000 ML IV SCH (17:30)
[2017-04-17 17:47] VITALS: BP 136/60
[2017-04-17 20:00] VITALS: BP_SYST 137; BP_SYST 161; BP_DIAS 71; BP_DIAS 90
[2017-04-17] MEDS: Heparin 5000 units/ml inj SUBQ SCH (21:22)
[2017-04-18] VITALS: BP 169/78
[2017-04-18 04:00] VITALS: BP 161/87
[2017-04-18 06:36] LABS: BASOPHILS % (AUTO) 0.8 % (0.0-2.0); EOSINOPHILS % (AUTO) 0.8 % (0.0-3.0); LYMPHOCYTES % (AUTO) 22.6 % (20.0-45.0); MEAN CORPUSCULAR HEMOGLOBIN 27.5 PG (27.0-31.0); MEAN CORPUSCULAR HGB CONC 31.2 G/DL (32.0-36.0); MEAN CORPUSCULAR VOLUME 88 FL (80-99); MEAN PLATELET VOLUME 8.5 FL (6.5-10.1); MONOCYTES % (AUTO) 9.7 % (1.0-10.0); NEUTROPHILS % (AUTO) 66.1 % (45.0-75.0); PLATELET COUNT 204 K/UL (150-450); RED BLOOD COUNT 4.71 M/UL (4.20-5.40); RED CELL DISTRIBUTION WIDTH 13.9 % (11.6-14.8); WHITE BLOOD COUNT 6.1 K/UL (4.8-10.8)
[2017-04-18 06:44] LABS: ANION GAP 15 (5-15); CALCIUM 9.8 mg/dL (8.6-10.2); CARBON DIOXIDE 26 mEQ/L (20-30); CHLORIDE 108 mEQ/L (98-107); CREATININE 0.8 mg/dL (0.5-0.9); GLOMERULAR FILTRATION RATE > 60 mL/min (>60); HEMOLYSIS 3; POTASSIUM 3.1 mEQ/L (3.4-4.9); SODIUM 149 mEQ/L (135-145)
[2017-04-18] MEDS: D5 1/2NS 1,000 ML IV SCH (06:50)
[2017-04-18 07:56] VITALS: BP 148/79
[2017-04-18 08:44] LABS: ABG ALLEN TEST POSITIVE; ABG BASE EXCESS 1.2; ABG PCO2 35.2 mmHg (35.0-45.0)
[2017-04-18] MEDS: Nystatin Powder 100,000 units/gm 15gm TOPIC SCH ×3 (09:17→17:16)
[2017-04-18] MEDS: Heparin 5000 units/ml inj SUBQ SCH ×2 (09:22→21:10)
--- NOTE | 2017-04-18 09:43 | Cardiology Progress Note ---
Assessment/Plan Assessment/Plan altered mentation chronic pain systolic murmur sinus tachy rhabo s/p fall ?? 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 by not suggestive of syncope will however check orthostatic vital keep on tele ivf 10/20 ns as na has in creased agree with neuro evla echo [id number] Objective Last 24 Hour Vital Signs Date Time Temp Pulse Resp B/P Pulse Ox O2 Delivery O2 Flow Rate FiO2 04/18/17 08:00 97 04/18/17 07:56 97.9 95 20 148/79 97 Room Air 04/18/17 07:46 101 20 Room Air 04/18/17 04:00 98.2 102 20 161/87 97 Room Air 04/18/17 04:00 100 04/18/17 01:43 90 18 Room Air 04/18/17 00:00 96 04/18/17 00:00 98.2 81 20 169/78 97 Room Air 04/17/17 23:31 169/98 04/17/17 20:00 92 04/17/17 20:00 98.1 90 20 161/71 98 Room Air 04/17/17 17:47 95 136/60 04/17/17 17:01 98.2 98 23 175/75 Room Air 04/17/17 16:50 98 04/17/17 16:37 97.6 94 20 210/82 98 Room Air 04/17/17 16:26 210/82 04/17/17 16:14 97.6 94 20 210/82 98 Room Air 04/17/17 15:12 203/92 04/17/17 13:47 66 20 150/74 99 Room Air 04/17/17 12:45 97.6 69 22 156/62 100 Room Air 04/17/17 11:52 99.1 75 16 174/85 99 Room Air Intake and Output 04/17/17 04/18/17 19:00 07:00 Intake Total 75 ml 900 ml Output Total 500 ml 625 ml Balance -425 ml 275 ml IV Total 75 ml 900 ml Output Urine Total 500 ml 625 ml # Voids 1 1 Laboratory Tests Test 04/17/17 12:10 04/17/17 13:45 04/17/17 14:45 04/18/17 05:50 White Blood Count 6.1 K/UL (4.8-10.8) Red Blood Count 4.73 M/UL (4.20-5.40) Hemoglobin 13.1 G/DL (12.0-16.0) Hematocrit 41.8 % (37.0-47.0) Mean Corpuscular Volume 88 FL (80-99) Mean Corpuscular Hemoglobin 27.8 PG (27.0-31.0) Mean Corpuscular Hemoglobin Concent 31.4 G/DL (32.0-36.0) L Red Cell Distribution Width 14.0 % (11.6-14.8) Platelet Count 205 K/UL (150-450) Mean Platelet Volume 8.2 FL (6.5-10.1) Neutrophils (%) (Auto) 80.6 % (45.0-75.0) H Lymphocytes (%) (Auto) 13.3 % (20.0-45.0) L Monocytes (%) (Auto) 6.0 % (1.0-10.0) Eosinophils (%) (Auto) 0.1 % (0.0-3.0) Basophils (%) (Auto) 0.2 % (0.0-2.0) Sodium Level 142 mEQ/L (135-145) Potassium Level 3.4 mEQ/L (3.4-4.9) Chloride Level 101 mEQ/L (98-107) Carbon Dioxide Level 24 mEQ/L (20-30) Anion Gap 17 (5-15) H Blood Urea Nitrogen 36 mg/dL (7-23) H Creatinine 1.5 mg/dL (0.5-0.9) H Estimat Glomerular Filtration Rate 42.3 mL/min (>60) Glucose Level 158 mg/dL (74-106) H Lactic Acid Level 1.30 mmol/L (0.66-2.22) Calcium Level 10.0 mg/dL (8.6-10.2) Total Bilirubin 0.4 mg/dL (0.0-1.2) Aspartate Amino Transf (AST/SGOT) 101 U/L (5-40) H Alanine Aminotransferase (ALT/SGPT) 23 U/L (3-33) Alkaline Phosphatase 173 U/L (35-104) H Ammonia 13 umol/L (11-51) Total Creatine Kinase 3554 U/L (26-140) H Troponin I < 0.30 ng/mL (<=0.30) Total Protein 8.1 g/dL (6.6-8.7) Albumin 3.9 g/dL (3.5-5.2) Globulin 4.2 g/dL Albumin/Globulin Ratio 0.9 (1.0-2.7) L Salicylates Level < 1 mg/dL (10-30) L Acetaminophen Level < 10 ug/mL (10-30) L Serum Alcohol < 10 mg/dL Urine Color Pale yellow Urine Appearance Clear Urine pH 5 (4.5-8.0) Urine Specific [place] 1.015 (1.005-1.035) Urine Protein 1+ (NEGATIVE) H Urine Glucose (UA) Negative (NEGATIVE) Urine Ketones Negative (NEGATIVE) Urine Occult Blood 5+ (NEGATIVE) H Urine Nitrite Negative (NEGATIVE) Urine Bilirubin Negative (NEGATIVE) Urine Urobilinogen Normal MG/DL (0.0-1.0) Urine Leukocyte Esterase Negative (NEGATIVE) Urine RBC 2-4 /HPF (0 - 2) H Urine WBC 0-2 /HPF (0 - 2) Urine Squamous Epithelial Cells Few /LPF (NONE/OCC) Urine Bacteria Few /HPF (NONE) Urine Hyaline Casts 0-2 /LPF (NONE) H Urine Opiates Screen Positive (NEGATIVE) H Urine Barbiturates Screen Negative (NEGATIVE) Phencyclidine (PCP) Screen Negative (NEGATIVE) Urine Amphetamines Screen Negative (NEGATIVE) Urine Benzodiazepines Screen Positive (NEGATIVE) H Urine Cocaine Screen Negative (NEGATIVE) Urine Marijuana (THC) Screen Negative (NEGATIVE) Arterial Blood pH 7.400 (7.350-7.450) Arterial Blood Partial Pressure CO2 38.2 mmHg (35.0-45.0) Arterial Blood Partial Pressure O2 73.8 mmHg (75.0-100.0) L Arterial Blood HCO3 23.2 mmol/L (22.0-26.0) Arterial Blood Oxygen Saturation 94.7 % (92.0-98.0) Arterial Blood Base Excess -1.3 Kelvin Test Positive Magnesium Level 2.2 mg/dL (1.7-2.5) Test 04/18/17 05:55 04/18/17 08:30 White Blood Count 6.1 K/UL (4.8-10.8) Red Blood Count 4.71 M/UL (4.20-5.40) Hemoglobin 12.9 G/DL (12.0-16.0) Hematocrit 41.4 % (37.0-47.0) Mean Corpuscular Volume 88 FL (80-99) Mean Corpuscular Hemoglobin 27.5 PG (27.0-31.0) Mean Corpuscular Hemoglobin Concent 31.2 G/DL (32.0-36.0) L Red Cell Distribution Width 13.9 % (11.6-14.8) Platelet Count 204 K/UL (150-450) Mean Platelet Volume 8.5 FL (6.5-10.1) Neutrophils (%) (Auto) 66.1 % (45.0-75.0) Lymphocytes (%) (Auto) 22.6 % (20.0-45.0) Monocytes (%) (Auto) 9.7 % (1.0-10.0) Eosinophils (%) (Auto) 0.8 % (0.0-3.0) Basophils (%) (Auto) 0.8 % (0.0-2.0) Sodium Level 149 mEQ/L (135-145) H Potassium Level 3.1 mEQ/L (3.4-4.9) L Chloride Level 108 mEQ/L (98-107) H Carbon Dioxide Level 26 mEQ/L (20-30) Anion Gap 15 (5-15) Blood Urea Nitrogen 19 mg/dL (7-23) Creatinine 0.8 mg/dL (0.5-0.9) Estimat Glomerular Filtration Rate > 60 mL/min (>60) Glucose Level 143 mg/dL (74-106) H Calcium Level 9.8 mg/dL (8.6-10.2) Total Creatine Kinase 2935 U/L (26-140) H Arterial Blood pH 7.460 (7.350-7.450) Arterial Blood Partial Pressure CO2 35.2 mmHg (35.0-45.0) Arterial Blood Partial Pressure O2 84.5 mmHg (75.0-100.0) Arterial Blood HCO3 24.6 mmol/L (22.0-26.0) Arterial Blood Oxygen Saturation 96.0 % (92.0-98.0) Arterial Blood Base Excess 1.2 Kelvin Test Positive FARZANA BARRAZA Apr 18, 2017 09:43
--- NOTE | 2017-04-18 09:46 | Cardiology Progress Note ---
Assessment/Plan Assessment/Plan altered mentation chronic pain systolic murmur sinus tachy rhabo s/p fall ?? 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 100 mg bid and 3 bottles of dya zide will resume metoprolol for nwo and may consider hctz warned pt to avoid polypharmacy avoid arbs adn sudhir Objective Last 24 Hour Vital Signs Date Time Temp Pulse Resp B/P Pulse Ox O2 Delivery O2 Flow Rate FiO2 04/18/17 08:00 97 04/18/17 07:56 97.9 95 20 148/79 97 Room Air 04/18/17 07:46 101 20 Room Air 04/18/17 04:00 98.2 102 20 161/87 97 Room Air 04/18/17 04:00 100 04/18/17 01:43 90 18 Room Air 04/18/17 00:00 96 04/18/17 00:00 98.2 81 20 169/78 97 Room Air 04/17/17 23:31 169/98 04/17/17 20:00 92 04/17/17 20:00 98.1 90 20 161/71 98 Room Air 04/17/17 17:47 95 136/60 04/17/17 17:01 98.2 98 23 175/75 Room Air 04/17/17 16:50 98 04/17/17 16:37 97.6 94 20 210/82 98 Room Air 04/17/17 16:26 210/82 04/17/17 16:14 97.6 94 20 210/82 98 Room Air 04/17/17 15:12 203/92 04/17/17 13:47 66 20 150/74 99 Room Air 04/17/17 12:45 97.6 69 22 156/62 100 Room Air 04/17/17 11:52 99.1 75 16 174/85 99 Room Air Intake and Output 04/17/17 04/18/17 19:00 07:00 Intake Total 75 ml 900 ml Output Total 500 ml 625 ml Balance -425 ml 275 ml IV Total 75 ml 900 ml Output Urine Total 500 ml 625 ml # Voids 1 1 Laboratory Tests Test 04/17/17 12:10 04/17/17 13:45 04/17/17 14:45 04/18/17 05:50 White Blood Count 6.1 K/UL (4.8-10.8) Red Blood Count 4.73 M/UL (4.20-5.40) Hemoglobin 13.1 G/DL (12.0-16.0) Hematocrit 41.8 % (37.0-47.0) Mean Corpuscular Volume 88 FL (80-99) Mean Corpuscular Hemoglobin 27.8 PG (27.0-31.0) Mean Corpuscular Hemoglobin Concent 31.4 G/DL (32.0-36.0) L Red Cell Distribution Width 14.0 % (11.6-14.8) Platelet Count 205 K/UL (150-450) Mean Platelet Volume 8.2 FL (6.5-10.1) Neutrophils (%) (Auto) 80.6 % (45.0-75.0) H Lymphocytes (%) (Auto) 13.3 % (20.0-45.0) L Monocytes (%) (Auto) 6.0 % (1.0-10.0) Eosinophils (%) (Auto) 0.1 % (0.0-3.0) Basophils (%) (Auto) 0.2 % (0.0-2.0) Sodium Level 142 mEQ/L (135-145) Potassium Level 3.4 mEQ/L (3.4-4.9) Chloride Level 101 mEQ/L (98-107) Carbon Dioxide Level 24 mEQ/L (20-30) Anion Gap 17 (5-15) H Blood Urea Nitrogen 36 mg/dL (7-23) H Creatinine 1.5 mg/dL (0.5-0.9) H Estimat Glomerular Filtration Rate 42.3 mL/min (>60) Glucose Level 158 mg/dL (74-106) H Lactic Acid Level 1.30 mmol/L (0.66-2.22) Calcium Level 10.0 mg/dL (8.6-10.2) Total Bilirubin 0.4 mg/dL (0.0-1.2) Aspartate Amino Transf (AST/SGOT) 101 U/L (5-40) H Alanine Aminotransferase (ALT/SGPT) 23 U/L (3-33) Alkaline Phosphatase 173 U/L (35-104) H Ammonia 13 umol/L (11-51) Total Creatine Kinase 3554 U/L (26-140) H Troponin I < 0.30 ng/mL (<=0.30) Total Protein 8.1 g/dL (6.6-8.7) Albumin 3.9 g/dL (3.5-5.2) Globulin 4.2 g/dL Albumin/Globulin Ratio 0.9 (1.0-2.7) L Salicylates Level < 1 mg/dL (10-30) L Acetaminophen Level < 10 ug/mL (10-30) L Serum Alcohol < 10 mg/dL Urine Color Pale yellow Urine Appearance Clear Urine pH 5 (4.5-8.0) Urine Specific [place] 1.015 (1.005-1.035) Urine Protein 1+ (NEGATIVE) H Urine Glucose (UA) Negative (NEGATIVE) Urine Ketones Negative (NEGATIVE) Urine Occult Blood 5+ (NEGATIVE) H Urine Nitrite Negative (NEGATIVE) Urine Bilirubin Negative (NEGATIVE) Urine Urobilinogen Normal MG/DL (0.0-1.0) Urine Leukocyte Esterase Negative (NEGATIVE) Urine RBC 2-4 /HPF (0 - 2) H Urine WBC 0-2 /HPF (0 - 2) Urine Squamous Epithelial Cells Few /LPF (NONE/OCC) Urine Bacteria Few /HPF (NONE) Urine Hyaline Casts 0-2 /LPF (NONE) H Urine Opiates Screen Positive (NEGATIVE) H Urine Barbiturates Screen Negative (NEGATIVE) Phencyclidine (PCP) Screen Negative (NEGATIVE) Urine Amphetamines Screen Negative (NEGATIVE) Urine Benzodiazepines Screen Positive (NEGATIVE) H Urine Cocaine Screen Negative (NEGATIVE) Urine Marijuana (THC) Screen Negative (NEGATIVE) Arterial Blood pH 7.400 (7.350-7.450) Arterial Blood Partial Pressure CO2 38.2 mmHg (35.0-45.0) Arterial Blood Partial Pressure O2 73.8 mmHg (75.0-100.0) L Arterial Blood HCO3 23.2 mmol/L (22.0-26.0) Arterial Blood Oxygen Saturation 94.7 % (92.0-98.0) Arterial Blood Base Excess -1.3 Kelvin Test Positive Magnesium Level 2.2 mg/dL (1.7-2.5) Test 04/18/17 05:55 04/18/17 08:30 White Blood Count 6.1 K/UL (4.8-10.8) Red Blood Count 4.71 M/UL (4.20-5.40) Hemoglobin 12.9 G/DL (12.0-16.0) Hematocrit 41.4 % (37.0-47.0) Mean Corpuscular Volume 88 FL (80-99) Mean Corpuscular Hemoglobin 27.5 PG (27.0-31.0) Mean Corpuscular Hemoglobin Concent 31.2 G/DL (32.0-36.0) L Red Cell Distribution Width 13.9 % (11.6-14.8) Platelet Count 204 K/UL (150-450) Mean Platelet Volume 8.5 FL (6.5-10.1) Neutrophils (%) (Auto) 66.1 % (45.0-75.0) Lymphocytes (%) (Auto) 22.6 % (20.0-45.0) Monocytes (%) (Auto) 9.7 % (1.0-10.0) Eosinophils (%) (Auto) 0.8 % (0.0-3.0) Basophils (%) (Auto) 0.8 % (0.0-2.0) Sodium Level 149 mEQ/L (135-145) H Potassium Level 3.1 mEQ/L (3.4-4.9) L Chloride Level 108 mEQ/L (98-107) H Carbon Dioxide Level 26 mEQ/L (20-30) Anion Gap 15 (5-15) Blood Urea Nitrogen 19 mg/dL (7-23) Creatinine 0.8 mg/dL (0.5-0.9) Estimat Glomerular Filtration Rate > 60 mL/min (>60) Glucose Level 143 mg/dL (74-106) H Calcium Level 9.8 mg/dL (8.6-10.2) Total Creatine Kinase 2935 U/L (26-140) H Arterial Blood pH 7.460 (7.350-7.450) Arterial Blood Partial Pressure CO2 35.2 mmHg (35.0-45.0) Arterial Blood Partial Pressure O2 84.5 mmHg (75.0-100.0) Arterial Blood HCO3 24.6 mmol/L (22.0-26.0) Arterial Blood Oxygen Saturation 96.0 % (92.0-98.0) Arterial Blood Base Excess 1.2 Kelvin Test Positive FARZANA BARRAZA Apr 18, 2017 09:46
--- NOTE | 2017-04-18 10:51 | Pulmonology Progress Note ---
Assessment/Plan Assessment/Plan ASSESSMENT acute toxic encephalopathy possibly to overdose vs syncope possible overdose on pain medications possible syncope expressive aphasia rhabdo acute renal failure -resolved HTN urgency colostomy PT/OT PLAN OF CARE tele s/p Narcan now awake urine tox screen + benzo and opiates ( chronically using them, denies any increase in dose, denies taking extra) awake now, mental status back to normal, labile mood, expressive aphasia no prior hx of CVA, presumed earlier that was OD on meds, however for now unclear, possible syncopal episode , since patient denies using more pills, appears with expressive aphasia and labile mood CT head no acute intracranial pathology likely had syncopal episode will get neuro and cardio eval orthostatic VS carotid Duplex lipid apnel consider MRI on Thursday IVF monitor renal parameters, lytes ( replace K, Mg stable) ARF resolved, keep IVF till am then will dc CK trending down slowly renal US BP management with CCB DVT prophylaxis wound nurse eval psych eval case discussed and evaluated by supervising physician Subjective Allergies: Coded Allergies: LISINOPRIL (Verified Allergy, Unknown, Hives, 04/12/14) Subjective patient awake, alert, responsive unaware what happened, but at that day denies any symptoms preceding the incident such as chest pain, SOB, dizziness denies taking any extra pills except what she is taking for chronic pain during conversation noted expressive aphasia, patient corrects herself, labile mood no focal deficits denies chest pain, SOB, dizziness K-low CK slowly trending down Objective Last 24 Hour Vital Signs Date Time Temp Pulse Resp B/P Pulse Ox O2 Delivery O2 Flow Rate FiO2 04/18/17 08:00 97 04/18/17 07:56 97.9 95 20 148/79 97 Room Air 04/18/17 07:46 101 20 Room Air 04/18/17 04:00 98.2 102 20 161/87 97 Room Air 04/18/17 04:00 100 04/18/17 01:43 90 18 Room Air 04/18/17 00:00 96 04/18/17 00:00 98.2 81 20 169/78 97 Room Air 04/17/17 23:31 169/98 04/17/17 20:00 92 04/17/17 20:00 98.1 90 20 161/71 98 Room Air 04/17/17 17:47 95 136/60 04/17/17 17:01 98.2 98 23 175/75 Room Air 04/17/17 16:50 98 04/17/17 16:37 97.6 94 20 210 98 Room Air 04/17/17 16:26 210/82 04/17/17 16:14 97.6 94 20 210/82 98 Room Air 04/17/17 15:12 203/92 04/17/17 13:47 66 20 150/74 99 Room Air 04/17/17 12:45 97.6 69 22 156/62 100 Room Air 04/17/17 11:52 99.1 75 16 174/85 99 Room Air Intake and Output 04/17/17 04/18/17 19:00 07:00 Intake Total 75 ml 900 ml Output Total 500 ml 625 ml Balance -425 ml 275 ml IV Total 75 ml 900 ml Output Urine Total 500 ml 625 ml # Voids 1 1 Objective General Appearance: no apparent distress, awake, responsive Lines, tubes and drains: peripheral HEENT: normocephalic, atraumatic, anicteric Neck: supple Respiratory/Chest: chest wall non-tender, lungs clear, no respiratory distress , no accessory muscle use Cardiovascular/Chest: normal peripheral pulses, normal rate, regular rhythm, edema +1 BLE Abdomen: normal bowel sounds, non tender, obese, soft, colostomy with small amount of brown yellowish output Skin Exam: warm/dry, other - abrasion L cheek and left forearm Neurologic: awake, alert, responsive, labile mood, expressive aphasia Musculoskeletal: normal muscle bulk Laboratory Tests 04/17/17 12:10: White Blood Count 6.1, Red Blood Count 4.73, Hemoglobin 13.1, Hematocrit 41.8, Mean Corpuscular Volume 88, Mean Corpuscular Hemoglobin 27.8, Mean Corpuscular Hemoglobin Concent 31.4L, Red Cell Distribution Width 14.0, Platelet Count 205, Mean Platelet Volume 8.2, Neutrophils (%) (Auto) 80.6H, Lymphocytes (%) (Auto) 13.3L, Monocytes (%) (Auto) 6.0, Eosinophils (%) (Auto) 0.1, Basophils (%) (Auto ) 0.2, Sodium Level 142, Potassium Level 3.4, Chloride Level 101, Carbon Dioxide Level 24, Anion Gap 17H, Blood Urea Nitrogen 36H, Creatinine 1.5H, Estimat Glomerular Filtration Rate 42.3, Glucose Level 158H, Lactic Acid Level 1.30, Calcium Level 10.0, Total Bilirubin 0.4, Aspartate Amino Transf (AST/SGOT ) 101H, Alanine Aminotransferase (ALT/SGPT) 23, Alkaline Phosphatase 173H, Ammonia 13, Total Creatine Kinase 3554H, Troponin I < 0.30, Total Protein 8.1, Albumin 3.9, Globulin 4.2, Albumin/Globulin Ratio 0.9L, Salicylates Level < 1L, Acetaminophen Level < 10L, Serum Alcohol < 10 04/17/17 13:45: Urine Color Pale yellow, Urine Appearance Clear, Urine pH 5, Urine Specific [place] 1.015, Urine Protein 1+H, Urine Glucose (UA) Negative, Urine Ketones Negative, Urine Occult Blood 5+H, Urine Nitrite Negative, Urine Bilirubin Negative, Urine Urobilinogen Normal, Urine Leukocyte Esterase Negative, Urine RBC 2-4H, Urine WBC 0-2, Urine Squamous Epithelial Cells Few, Urine Bacteria Few , Urine Hyaline Casts 0-2H, Urine Opiates Screen PositiveH, Urine Barbiturates Screen Negative, Phencyclidine (PCP) Screen Negative, Urine Amphetamines Screen Negative, Urine Benzodiazepines Screen PositiveH, Urine Cocaine Screen Negative , Urine Marijuana (THC) Screen Negative 04/17/17 14:45: Arterial Blood pH 7.400, Arterial Blood Partial Pressure CO2 38.2, Arterial Blood Partial Pressure O2 73.8L, Arterial Blood HCO3 23.2, Arterial Blood Oxygen Saturation 94.7, Arterial Blood Base Excess -1.3, Kelvin Test Positive 04/18/17 05:50: Magnesium Level 2.2 04/18/17 05:55: White Blood Count 6.1, Red Blood Count 4.71, Hemoglobin 12.9, Hematocrit 41.4, Mean Corpuscular Volume 88, Mean Corpuscular Hemoglobin 27.5, Mean Corpuscular Hemoglobin Concent 31.2L, Red Cell Distribution Width 13.9, Platelet Count 204, Mean Platelet Volume 8.5, Neutrophils (%) (Auto) 66.1, Lymphocytes (%) (Auto) 22.6, Monocytes (%) (Auto) 9.7, Eosinophils (%) (Auto) 0.8, Basophils (%) (Auto ) 0.8, Sodium Level 149H, Potassium Level 3.1L, Chloride Level 108H, Carbon Dioxide Level 26, Anion Gap 15, Blood Urea Nitrogen 19, Creatinine 0.8, Estimat Glomerular Filtration Rate > 60, Glucose Level 143H, Calcium Level 9.8, Total Creatine Kinase 2935H 04/18/17 08:30: Arterial Blood pH 7.460H, Arterial Blood Partial Pressure CO2 35.2, Arterial Blood Partial Pressure O2 84.5, Arterial Blood HCO3 24.6, Arterial Blood Oxygen Saturation 96.0, Arterial Blood Base Excess 1.2, Kelvin Test Positive Current Medications Medications (Trade) Dose Ordered Sig/Debbie Route PRN Reason Start Time Stop Time Status Last Admin Dose Admin Albuterol/ Ipratropium (DuoNeb 0.5-3(2.5)mg/3ml) 3 ml Q4H PRN HHN Shortness of Breath 04/17/17 16:30 04/22/17 16:29 Amlodipine Besylate (Norvasc) 10 mg DAILY ORAL 04/18/17 10:00 05/18/17 09:59 Dextrose STAT PRN IV Hypoglycemia 04/17/17 16:30 05/17/17 16:29 Dextrose/Sodium Chloride (D5 0.45% NS) 1,000 ml @ 75 mls/hr [id number] IV 04/17/17 16:45 05/17/17 16:44 04/18/17 06:50 Heparin Sodium (Porcine) (Heparin 5000 units/ml) 5,000 units EVERY 12 HOURS SUBQ 04/17/17 21:00 05/17/17 20:59 04/18/17 09:22 Hydralazine HCl (Apresoline) 5 mg Q4H PRN IV SBP >160 04/17/17 23:30 05/17/17 23:29 04/17/17 23:31 Nystatin (Nystop Powder) 1 applic THREE TIMES A DAY TOPIC 04/18/17 09:00 05/18/17 08:59 04/18/17 09:17 Mary Gomez NP (Vanchtein) Apr 18, 2017 10:51
--- NOTE | 2017-04-18 10:54 | Diagnostic Imaging Report ---
Indication:Elevated Bun and Creatinine. Technique: Grayscale and duplex Doppler imaging of the kidneys performed. Comparison: None Findings: Renal echogenicity is normal. There is a question of a 3 cm mass in the midpole the right kidney. This is probably a column of Anastacio. However further evaluation with CT is suggested. There is no hydronephrosis. The IVC and urinary bladder are unremarkable. A Desai catheter is noted. Right kidney is 10.5 CM. Left kidney 11 point one CM. There is a probable cyst in the right kidney measuring 8 mm. Impression: Some prominence in the midpole the right kidney noted. This could be a column of Anastacio but a small mass is not excluded. Further evaluation with contrast-enhanced CT is recommended. Probable right renal cyst 8 mm.
[2017-04-18 11:50] VITALS: BP 186/98
[2017-04-18 16:00] VITALS: BP 166/82
--- NOTE | 2017-04-18 17:46 | Consultation ---
DATE OF CONSULTATION: 04/18/2017 CARDIOLOGY CONSULTATION: CONSULTING PHYSICIAN: Neri Moreno M.D. ATTENDING PHYSICIAN: Murray Burton M.D. REFERRING PHYSICIAN: Murray Burton M.D. REASON FOR REFERRAL: Change in mentation and evaluation for possible syncope. HISTORY OF PRESENT ILLNESS: This is a middle-aged female who is brought into the hospital at [facility]. Apparently, she was found on the on the floor altered. She sat down and then laid down. No complaints of trauma. Apparently, no droops. Apparently, the told the paramedics that she may have taken too much of her pain medications. Her initial blood pressure was 144/116 and subsequently 174/85. Blood sugar is 189. The patient was transferred to the emergency room here at [facility] where she was evaluated by the emergency room physician and was admitted to the hospital for altered level of consciousness of unknown etiology, although overdose of medications was being considered. The patient was initially unresponsive, but has been able to control her airway. She was given a dose of Narcan. She apparently responded to that for brief period of time and then she fell asleep again. At this time, on my evaluation, she is fully awake. She does not recall what happened to her and does not know what caused her to come to the hospital. She does not have any pain or pressure in her chest. She denies any shortness of breath. States she does admit to occasional to being dizzy or lightheaded when she stands up. She admits eating three times a day and she indicates she drinks water. There are no palpitations. There is no pain, pressure, tightness, or heaviness in her chest. PAST MEDICAL HISTORY: Positive for prior admissions for altered mentation on several occasions. Apparently, it was felt to be toxic metabolic encephalopathy, chronic pain in both knees, and hypokalemia. She has had history of E. coli, Bacteroides, Enterococcus, diverticulitis, and abscess where she has had colostomy bag. She has had hypertension, hyperlipidemia, anemia, and obesity. ALLERGIES: JENA inhibitors. SOCIAL HISTORY: She denies smoking or drinking of alcoholic beverages. No drug use. She states she lives at home. REVIEW OF SYSTEMS: Gastrointestinal: She denies any nausea, vomiting, diarrhea, or constipation. She has colostomy bag. Genitourinary: She denies. Pulmonary: She denies. Constitutional: She denies. Neurological: As mentioned, confusion. PHYSICAL EXAMINATION: GENERAL: Shows to be confused middle-aged female, in no respiratory distress. NECK: Supple. Carotid, cardiac murmur. LUNGS: Otherwise clear to auscultation and percussion. CARDIAC: Regular rhythm. Systolic ejection murmur. No RV lifts, heaves, or thrills noted. ABDOMEN: Soft. Colostomy bag is noted. EXTREMITIES: There is no edema. NEUROLOGIC: She is awake, alert, responsive, slow to mentate, but communicate. LABORATORY AND DIAGNOSTIC DATA: Her white count 6.1, hemoglobin 12.9, and platelet count 204,000. Blood gas, pH 7.46, pCO2 of 35, pO2 of 84, bicarbonate of 27, although her initial blood gases yesterday were also adequate. Sodium 149 that is up from 142 with potassium of 3.1, chloride 108, bicarbonate 26, BUN 19, creatinine 0.8, glucose 143, and calcium level of 9.8. CK is down to 2900 from 3500 in this hospitalization and previously as low as 70. Troponin was negative at the time of admission yesterday. Her albumin was 3.9. She had urinalysis that shows 2-4 RBCs, 0-2 WBCs, and urine drug screen that was positive for benzodiazepines as well as opiates but negative for salicylates, Tylenol, and alcohol. She has had CT scan of her head that was performed and this shows chronic and age-related changes, stable, and negative for any acute intracranial bleed. Chest x-ray performed yesterday showed no acute processes. Her electrocardiogram showed normal sinus rhythm, normal QRS axis, no ST or T-wave abnormalities of significant degree, and nonspecific changes noted. Telemetry shows sinus and sinus tachycardia. ASSESSMENT: 1. Altered mentation. 2. Chronic pain. 3. Systolic murmur. 4. Sinus tachycardia. 5. Rhabdomyolysis. 6. Questionable fall. PLAN: Dr. Burton, this patient was seen in cardiac consultation. The patient's electrocardiogram is negative. Troponins are negative. No chest pain. No signs of congestive heart failure. 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 We will, however, check orthostatic vitals and keep the patient on telemetry for another 24 hours. IV fluids will be administered with half-normal saline as sodium has increased. I do recommend neurological evaluation. An echocardiogram has been performed recently for which the patient was last here which showed trace to mild mitral and aortic regurgitation, mild diastolic relaxation abnormality, ejection fraction of 65%, pulmonary systolic pressure of 44, mild left ventricular hypertrophy, and moderate left atrial enlargement was documented. She does have a systolic murmur at this time. This may be related to flow as well as aortic cusp sclerosis. We will follow the patient along with you. Neri Moreno M.D. DR: Mary Lou JOB#: [id number] CC:
[2017-04-18 20:48] VITALS: BP 163/90
[2017-04-18] MEDS: Norco 5mg/325mg tab ORAL PRN (23:31)
[2017-04-19] VITALS (9 sets, daily range): BP systolic 124–191; BP diastolic 64–86
[2017-04-19] MEDS: Norco 5mg/325mg tab ORAL PRN ×3 (05:52→19:33)
[2017-04-19 08:29] LABS: BASOPHILS % (AUTO) 1.3 % (0.0-2.0); EOSINOPHILS % (AUTO) 1.6 % (0.0-3.0); LYMPHOCYTES % (AUTO) 30.1 % (20.0-45.0); MEAN CORPUSCULAR HEMOGLOBIN 27.7 PG (27.0-31.0); MEAN CORPUSCULAR HGB CONC 31.4 G/DL (32.0-36.0); MEAN CORPUSCULAR VOLUME 88 FL (80-99); MEAN PLATELET VOLUME 8.2 FL (6.5-10.1); MONOCYTES % (AUTO) 12.7 % (1.0-10.0); NEUTROPHILS % (AUTO) 54.3 % (45.0-75.0); PLATELET COUNT 215 K/UL (150-450); RED CELL DISTRIBUTION WIDTH 14.1 % (11.6-14.8); WHITE BLOOD COUNT 4.7 K/UL (4.8-10.8)
[2017-04-19 08:47] LABS: ANION GAP 14 (5-15); CALCIUM 9.7 mg/dL (8.6-10.2); CARBON DIOXIDE 24 mEQ/L (20-30); CHLORIDE 104 mEQ/L (98-107); CHOLESTEROL 169 mg/dL (< 200); CHOLESTEROL/HDL RATIO 4.6 (3.3-4.4); CREATININE 0.7 mg/dL (0.5-0.9); GLOMERULAR FILTRATION RATE > 60 mL/min (>60); HEMOLYSIS 12; LDL CHOLESTEROL (CALC.) 101 mg/dL (60-99); POTASSIUM 3.1 mEQ/L (3.4-4.9); SODIUM 142 mEQ/L (135-145)
[2017-04-19] MEDS: Nystatin Powder 100,000 units/gm 15gm TOPIC SCH ×3 (09:44→18:30)
[2017-04-19] MEDS: Heparin 5000 units/ml inj SUBQ SCH ×2 (09:46→21:22)
--- NOTE | 2017-04-19 11:18 | Cardiology Report ---
APPROVED REPORT EKG Measurement Heart [id number] Normal sinus rhythm Biatrial enlargement Abnormal ECG
--- NOTE | 2017-04-19 12:41 | Cardiology Progress Note ---
Assessment/Plan Assessment/Plan altered mentation chronic pain systolic murmur sinus tachy rhabo s/p fall ?? 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 100 mg bid and 3 bottles of dya zide will resume metoprolol for nwo and may consider hctz warned pt to avoid polypharmacy avoid arbs adn acei note the notation for 04/18 by me unfortunately duplicated by mistake with some data form 04/19 beign added to that note Subjective Cardiovascular: Reports: palpitations, Denies: chest pain, irregular heart rate , lightheadedness Respiratory: Denies: cough Gastrointestinal/Abdominal: Denies: abdominal pain Genitourinary: Denies: burning Objective Last 24 Hour Vital Signs Date Time Temp Pulse Resp B/P Pulse Ox O2 Delivery O2 Flow Rate FiO2 04/19/17 11:30 97.3 97 18 145/64 99 Room Air 04/19/17 09:45 97 172/79 04/19/17 09:10 119 04/19/17 09:05 100 04/19/17 09:03 97 18 172/79 98 Room Air 04/19/17 09:00 95 04/19/17 08:08 191/83 04/19/17 08:00 89 04/19/17 07:53 98.2 90 18 191/83 98 Room Air 04/19/17 07:49 95 18 Room Air 04/19/17 04:06 97.9 88 18 147/86 95 Room Air 04/19/17 04:00 93 04/19/17 00:27 107 04/19/17 00:11 97.3 101 18 137/69 99 Room Air 04/18/17 23:04 174 04/18/17 22:59 156 04/18/17 22:54 149 04/18/17 21:26 163/90 04/18/17 20:48 98.2 101 18 163/90 99 Room Air 04/18/17 20:19 115 04/18/17 19:45 101 18 Room Air 04/18/17 17:17 166/82 7/1/17 16:00 104 04/18/17 16:00 98.8 106 18 166/82 96 Room Air General Appearance: alert, obese Neck: supple Cardiovascular: normal rate, regular rhythm Respiratory/Chest: lungs clear, normal breath sounds Intake and Output 04/18/17 04/19/17 19:00 07:00 Intake Total 1040 ml 750 ml Output Total 900 ml 500 ml Balance 140 ml 250 ml Intake Oral 290 ml IV Total 750 ml 750 ml Output Urine Total 900 ml 500 ml # Bowel Movements 1 2 Laboratory Tests Test 04/19/17 08:15 White Blood Count 4.7 K/UL (4.8-10.8) L Red Blood Count 4.80 M/UL (4.20-5.40) Hemoglobin 13.3 G/DL (12.0-16.0) Hematocrit 42.4 % (37.0-47.0) Mean Corpuscular Volume 88 FL (80-99) Mean Corpuscular Hemoglobin 27.7 PG (27.0-31.0) Mean Corpuscular Hemoglobin Concent 31.4 G/DL (32.0-36.0) L Red Cell Distribution Width 14.1 % (11.6-14.8) Platelet Count 215 K/UL (150-450) Mean Platelet Volume 8.2 FL (6.5-10.1) Neutrophils (%) (Auto) 54.3 % (45.0-75.0) Lymphocytes (%) (Auto) 30.1 % (20.0-45.0) Monocytes (%) (Auto) 12.7 % (1.0-10.0) H Eosinophils (%) (Auto) 1.6 % (0.0-3.0) Basophils (%) (Auto) 1.3 % (0.0-2.0) Sodium Level 142 mEQ/L (135-145) Potassium Level 3.1 mEQ/L (3.4-4.9) L Chloride Level 104 mEQ/L (98-107) Carbon Dioxide Level 24 mEQ/L (20-30) Anion Gap 14 (5-15) Blood Urea Nitrogen 11 mg/dL (7-23) Creatinine 0.7 mg/dL (0.5-0.9) Estimat Glomerular Filtration Rate > 60 mL/min (>60) Glucose Level 153 mg/dL (74-106) H Calcium Level 9.7 mg/dL (8.6-10.2) Triglycerides Level 153 mg/dL (< 150) H Cholesterol Level 169 mg/dL (< 200) LDL Cholesterol 101 mg/dL (60-99) H HDL Cholesterol 37 mg/dL (> 60) Cholesterol/HDL Ratio 4.6 (3.3-4.4) H Microbiology Date/Time Source Procedure Growth Status 04/17/17 17:30 Nasal Nares MRSA Culture - Final NO METHICILLIN RESISTANT STAPH AUREUS... Complete 04/17/17 17:30 Rectum VRE Culture - Final NO VANCOMYCIN RESISTANT ENTEROCOCCUS ... Complete FARZANA BARRAZA Apr 19, 2017 12:41
[2017-04-19] MEDS ORDERED: Metoprolol 5mg/5ml Inj IVP ONE (12:45)
--- NOTE | 2017-04-19 12:53 | Pulmonology Progress Note ---
Assessment/Plan Assessment/Plan ASSESSMENT acute toxic encephalopathy possibly to overdose vs syncope possible overdose on pain medications possible syncope stupor initially -resolved expressive aphasia -resolved rhabdo acute renal failure -resolved HTN urgency colostomy PT/OT PLAN OF CARE tele s/p Narcan now awake urine tox screen + benzo and opiates ( chronically using them, denief any increase in dose, denies taking extra) awake now, mental status back to normal, labile mood, expressive aphasia resolved today no prior hx of CVA, presumed earlier that was OD on meds, however for now unclear, possible syncopal episode , since patient denied using more pills, appeared with expressive aphasia and labile mood, ?TIA CT head no acute intracranial pathology likely had syncopal episode cardio eval appreciated orthostatic VS with significant orthostatic changes hydrate patient /IVF continue syncope if real indeed could be due to orthostatic changes PT/OT eval and Rx mobilize fall precautions neuro eval pending carotid Duplex lipid panel with elevated LDL, not able to start statin due to increased CK educated on low fat low cholesterol diet, recheck lipid panel in 3 months consider MRI on Thursday per neuro discretion monitor renal parameters, lytes ( replace K,check in am ARF resolved, CK trending down slowly renal US with possible mass R pole kidney , CT recommended, will proceed in am BP management with CCB DVT prophylaxis wound nurse eval psych eval case discussed and evaluated by supervising physician Subjective Allergies: Coded Allergies: LISINOPRIL (Verified Allergy, Unknown, Hives, 04/12/14) Subjective patient awake, alert, responsive unaware what happened, but at that day denied any symptoms preceding the incident such as chest pain, SOB, dizziness today patient was telling me that she was told that she fell from the bed ( does not remember it) denied taking any extra pills except what she is taking for chronic pain during conversation on 04/18 noted expressive aphasia, patient corrected herself , today no expressive aphasia -resolved labile mood no focal deficits denies chest pain, SOB, dizziness K-low CK slowly trending down Objective Last 24 Hour Vital Signs Date Time Temp Pulse Resp B/P Pulse Ox O2 Delivery O2 Flow Rate FiO2 04/19/17 11:30 97.3 97 18 145/64 99 Room Air 04/19/17 09:45 97 172/79 04/19/17 09:10 119 04/19/17 09:05 100 04/19/17 09:03 97 18 172/79 98 Room Air 04/19/17 09:00 95 04/19/17 08:08 191/83 04/19/17 08:00 89 04/19/17 07:53 98.2 90 18 191/83 98 Room Air 04/19/17 07:49 95 18 Room Air 04/19/17 04:06 97.9 88 18 147/86 95 Room Air 04/19/17 04:00 93 04/19/17 00:27 107 04/19/17 00:11 97.3 101 18 137/69 99 Room Air 04/18/17 23:04 174 04/18/17 22:59 156 04/18/17 22:54 149 04/18/17 21:26 163/90 04/18/17 20:48 98.2 101 18 163/90 99 Room Air 04/18/17 20:19 115 04/18/17 19:45 101 18 Room Air 04/18/17 17:17 166/82 04/18/17 16:00 104 04/18/17 16:00 98.8 106 18 166/82 96 Room Air Intake and Output 04/18/17 04/19/17 19:00 07:00 Intake Total 1040 ml 750 ml Output Total 900 ml 500 ml Balance 140 ml 250 ml Intake Oral 290 ml IV Total 750 ml 750 ml Output Urine Total 900 ml 500 ml # Bowel Movements 1 2 Objective General Appearance: no apparent distress, awake, responsive Lines, tubes and drains: peripheral HEENT: normocephalic, atraumatic, anicteric Neck: supple Respiratory/Chest: chest wall non-tender, lungs clear, no respiratory distress , no accessory muscle use Cardiovascular/Chest: normal peripheral pulses, normal rate, regular rhythm, edema +1 BLE Abdomen: normal bowel sounds, non tender, obese, soft, colostomy with small amount of brown yellowish output Skin Exam: warm/dry, other - abrasion L cheek and left forearm Neurologic: awake, alert, responsive, labile mood, expressive aphasia Musculoskeletal: normal muscle bulk Microbiology Date/Time Source Procedure Growth Status 04/17/17 17:30 Nasal Nares MRSA Culture - Final NO METHICILLIN RESISTANT STAPH AUREUS... Complete 04/17/17 17:30 Rectum VRE Culture - Final NO VANCOMYCIN RESISTANT ENTEROCOCCUS ... Complete Laboratory Tests 04/19/17 08:15: White Blood Count 4.7L, Red Blood Count 4.80, Hemoglobin 13.3, Hematocrit 42.4, Mean Corpuscular Volume 88, Mean Corpuscular Hemoglobin 27.7, Mean Corpuscular Hemoglobin Concent 31.4L, Red Cell Distribution Width 14.1, Platelet Count 215, Mean Platelet Volume 8.2, Neutrophils (%) (Auto) 54.3, Lymphocytes (%) (Auto) 30.1, Monocytes (%) (Auto) 12.7H, Eosinophils (%) (Auto) 1.6, Basophils (%) ( Auto) 1.3, Sodium Level 142, Potassium Level 3.1L, Chloride Level 104, Carbon Dioxide Level 24, Anion Gap 14, Blood Urea Nitrogen 11, Creatinine 0.7, Estimat Glomerular Filtration Rate > 60, Glucose Level 153H, Calcium Level 9.7, Triglycerides Level 153H, Cholesterol Level 169, LDL Cholesterol 101H, HDL Cholesterol 37, Cholesterol/HDL Ratio 4.6H Current Medications Medications (Trade) Dose Ordered Sig/Debbie Route PRN Reason Start Time Stop Time Status Last Admin Dose Admin Acetaminophen/ Hydrocodone Bitart ([place] 5/325) 1 tab Q6H PRN ORAL For Pain 04/18/17 23:00 04/25/17 22:59 04/19/17 05:52 Albuterol/ Ipratropium (DuoNeb 0.5-3(2.5)mg/3ml) 3 ml Q4H PRN HHN Shortness of Breath 04/17/17 16:30 04/22/17 16:29 Amlodipine Besylate 10 mg 10 mg DAILY ORAL 04/18/17 10:00 05/18/17 09:59 04/19/17 09:45 Dextrose (D5W 1000ml) 1,000 ml @ 75 mls/hr [id number] IV 04/18/17 11:00 05/18/17 10:59 04/19/17 01:46 Dextrose (Dextrose 50%) STAT PRN IV Hypoglycemia 04/17/17 16:30 05/17/17 16:29 Heparin Sodium (Porcine) (Heparin 5000 units/ml) 5,000 units EVERY 12 HOURS SUBQ 04/17/17 21:00 05/17/17 20:59 04/19/17 09:46 Hydralazine HCl (Apresoline) 5 mg Q4H PRN IV SBP >160 04/17/17 23:30 05/17/17 23:29 04/19/17 08:08 Nystatin (Nystop Powder) 1 applic THREE TIMES A DAY TOPIC 04/18/17 09:00 05/18/17 08:59 04/19/17 09:44 Jason (Esther)Mary NP Apr 19, 2017 12:53
--- NOTE | 2017-04-19 14:36 | Consultation ---
History of Present Illness General Date patient seen: Apr 18, 2017 Chief Complaint: Altered Level of Consciousness Present Illness HPI the pt is a 66 yo female. The patient was brought in with altered mental status. She came in via EMS. Her Accu-Chek was normal. She is unable to answer questions at this time. Paramedics did not get a focal neurologic exam. She's not cooperative for them. Eyes are open but she's not focalizing or responding to commands. Apparently, her colostomy broke at home. Apparently her boyfriend called daughter who then called 911. During the eval sitter was beside her, the was irritable and confused. the pt was alert and oriented to self and place. the pt perseverated that she didn't want to speak with a psychiatrist. the pt insisted that she didn't attempt suicide. the pt however was unable to provide history. Allergies: Coded Allergies: LISINOPRIL (Verified Allergy, Unknown, Hives, 04/12/14) Medication History Scheduled Amlodipine Besylate* (Amlodipine Besylate*), 10 MG ORAL DAILY, (Reported) Baclofen* (Baclofen*), 10 MG ORAL NEEDED, (Reported) Cephalexin* (Keflex*), 500 MG ORAL Q6H Cyclobenzaprine Hcl* (Flexeril*), 10 MG ORAL THREE TIMES A DAY Diclofenac Sod* (Voltaren*), 75 MG ORAL BID, (Reported) Doxazosin Mesylate* (Doxazosin Mesylate*), 4 MG ORAL DAILY, (Reported) Duloxetine Hcl* (Cymbalta*), 60 MG ORAL BID, (Reported) Gabapentin* (Gabapentin*), 300 MG ORAL BEDTIME, (Reported) Hydrochlorothiazide* (Hydrochlorothiazide*), 25 MG ORAL DAILY, (Reported) Metoprolol Tartrate* (Metoprolol Tartrate*), 100 MG ORAL EVERY 12 HOURS, ( Reported) Simvastatin (Zocor), 40 MG ORAL BEDTIME, (Reported) Trazodone* (Trazodone*), 200 MG ORAL BEDTIME, (Reported) Triamterene/Hydrochlorothiazid (Triamterene-Hctz 37.5-25 Mg Cp), 1 CAP ORAL DAILY, (Reported) Trimethoprim/Sulfamethoxazole (Bactrim Ds Tablet), 1 TAB ORAL TWICE A DAY, ( Reported) Scheduled PRN Carisoprodol* (Soma*), 350 MG PO Q6H PRN for For Pain, (Reported) Hydrocodone/Acetaminophen (Hydrocodon-Acetaminophn 10-325), 1 TAB ORAL Q6H PRN for For Pain, (Reported) Miscellaneous Medications Phenylephrine HCl/Prometh HCl (Promethazine Vc Syrup), Unknown Dose PO, ( Reported) Patient History History Provided By: Patient, Caregiver, PMD Healthcare decision maker Resuscitation status Full Code Advanced Directive on File Past Medical/Surgical History Past Medical/Surgical History: (1) Abscess (2) Fistula (3) Forgetfulness (4) Cellulitis of left leg (5) Chronic pain of both knees (6) Stupor (7) Hypertension (8) Sciatica neuralgia (9) Chronic back pain (10) Pericolonic abscess due to diverticulitis (11) Overdose of opiate or related narcotic (12) Acute encephalopathy Review of Systems Psychiatric: Reports: anxiety, depressed feelings, emotional problems, prior hx Physical Exam General Appearance: alert, moderate distress, agitated, overweight Neurologic: alert, oriented x 3 - person and place, responsive, depressed affect Last 24 Hour Vital Signs Date Time Temp Pulse Resp B/P Pulse Ox O2 Delivery O2 Flow Rate FiO2 04/19/17 13:07 136 18 124/77 98 Room Air 04/19/17 12:50 146 157/74 04/19/17 12:50 146 157/74 04/19/17 11:30 97.3 97 18 145/64 99 Room Air 04/19/17 09:45 97 172/79 04/19/17 09:10 119 04/19/17 09:05 100 04/19/17 09:03 97 18 172/79 98 Room Air 04/19/17 09:00 95 04/19/17 08:08 191/83 04/19/17 08:00 89 04/19/17 07:53 98.2 90 18 191/83 98 Room Air 04/19/17 07:49 95 18 Room Air 04/19/17 04:06 97.9 88 18 147/86 95 Room Air 04/19/17 04:00 93 04/19/17 00:27 107 04/19/17 00:11 97.3 101 18 137/69 99 Room Air 04/18/17 23:04 174 04/18/17 22:59 156 04/18/17 22:54 149 04/18/17 21:26 163/90 04/18/17 20:48 98.2 101 18 163/90 99 Room Air 04/18/17 20:19 115 04/18/17 19:45 101 18 Room Air 04/18/17 17:17 166/82 04/18/17 16:00 104 04/18/17 16:00 98.8 106 18 166/82 96 Room Air Intake and Output 04/18/17 04/19/17 19:00 07:00 Intake Total 1040 ml 750 ml Output Total 900 ml 500 ml Balance 140 ml 250 ml Intake Oral 290 ml IV Total 750 ml 750 ml Output Urine Total 900 ml 500 ml # Bowel Movements 1 2 Laboratory Tests Test 04/19/17 08:15 White Blood Count 4.7 K/UL (4.8-10.8) L Red Blood Count 4.80 M/UL (4.20-5.40) Hemoglobin 13.3 G/DL (12.0-16.0) Hematocrit 42.4 % (37.0-47.0) Mean Corpuscular Volume 88 FL (80-99) Mean Corpuscular Hemoglobin 27.7 PG (27.0-31.0) Mean Corpuscular Hemoglobin Concent 31.4 G/DL (32.0-36.0) L Red Cell Distribution Width 14.1 % (11.6-14.8) Platelet Count 215 K/UL (150-450) Mean Platelet Volume 8.2 FL (6.5-10.1) Neutrophils (%) (Auto) 54.3 % (45.0-75.0) Lymphocytes (%) (Auto) 30.1 % (20.0-45.0) Monocytes (%) (Auto) 12.7 % (1.0-10.0) H Eosinophils (%) (Auto) 1.6 % (0.0-3.0) Basophils (%) (Auto) 1.3 % (0.0-2.0) Sodium Level 142 mEQ/L (135-145) Potassium Level 3.1 mEQ/L (3.4-4.9) L Chloride Level 104 mEQ/L (98-107) Carbon Dioxide Level 24 mEQ/L (20-30) Anion Gap 14 (5-15) Blood Urea Nitrogen 11 mg/dL (7-23) Creatinine 0.7 mg/dL (0.5-0.9) Estimat Glomerular Filtration Rate > 60 mL/min (>60) Glucose Level 153 mg/dL (74-106) H Calcium Level 9.7 mg/dL (8.6-10.2) Triglycerides Level 153 mg/dL (< 150) H Cholesterol Level 169 mg/dL (< 200) LDL Cholesterol 101 mg/dL (60-99) H HDL Cholesterol 37 mg/dL (> 60) Cholesterol/HDL Ratio 4.6 (3.3-4.4) H Height (Feet): 5 Height (Inches): 9.00 Weight (Pounds): 210 Medications Current Medications Medications (Trade) Dose Ordered Sig/Debbie Route PRN Reason Start Time Stop Time Status Last Admin Dose Admin Acetaminophen/ Hydrocodone Bitart (Adams 5/325) 1 tab Q6H PRN ORAL For Pain 04/18/17 23:00 04/25/17 22:59 04/19/17 13:30 Albuterol/ Ipratropium (DuoNeb 0.5-3(2.5)mg/3ml) 3 ml Q4H PRN HHN Shortness of Breath 04/17/17 16:30 04/22/17 16:29 Amlodipine Besylate (Norvasc) 10 mg DAILY ORAL 04/18/17 10:00 05/18/17 09:59 04/19/17 09:45 Dextrose (D5W 1000ml) 1,000 ml @ 50 mls/hr Q20H IV 04/19/17 14:00 05/19/17 13:59 04/19/17 14:22 Dextrose (Dextrose 50%) STAT PRN IV Hypoglycemia 04/17/17 16:30 05/17/17 16:29 Heparin Sodium (Porcine) (Heparin 5000 units/ml) 5,000 units EVERY 12 HOURS SUBQ 04/17/17 21:00 05/17/17 20:59 04/19/17 09:46 Hydralazine HCl (Apresoline) 5 mg Q4H PRN IV SBP >160 04/17/17 23:30 05/17/17 23:29 04/19/17 08:08 Metoprolol Tartrate 100 mg 100 mg EVERY 12 HOURS ORAL 04/19/17 12:45 05/19/17 12:44 04/19/17 12:50 Nystatin (Nystop Powder) 1 applic THREE TIMES A DAY TOPIC 04/18/17 09:00 05/18/17 08:59 04/19/17 13:29 Assessment/Plan Status: progressing Assessment/Plan sp ?od? denied si or sa - no meds -will reassess -not at imminent dts/dto Woody Gilbert M.D. Apr 19, 2017 14:36
[2017-04-20] MEDS: Norco 5mg/325mg tab ORAL PRN ×4 (01:54→21:40)
[2017-04-20 03:53] VITALS: BP 155/84
[2017-04-20 07:08] LABS: BASOPHILS % (AUTO) 1.1 % (0.0-2.0); EOSINOPHILS % (AUTO) 2.4 % (0.0-3.0); LYMPHOCYTES % (AUTO) 24.4 % (20.0-45.0); MEAN CORPUSCULAR HGB CONC 31.9 G/DL (32.0-36.0); MEAN CORPUSCULAR VOLUME 88 FL (80-99); MEAN PLATELET VOLUME 8.3 FL (6.5-10.1); MONOCYTES % (AUTO) 12.2 % (1.0-10.0); PLATELET COUNT 224 K/UL (150-450); RED BLOOD COUNT 4.93 M/UL (4.20-5.40); RED CELL DISTRIBUTION WIDTH 14.2 % (11.6-14.8); WHITE BLOOD COUNT 5.9 K/UL (4.8-10.8)
[2017-04-20 07:18] LABS: ANION GAP 13 (5-15); CALCIUM 10.1 mg/dL (8.6-10.2); CARBON DIOXIDE 26 mEQ/L (20-30); CHLORIDE 104 mEQ/L (98-107); CREATININE 0.7 mg/dL (0.5-0.9); GLOMERULAR FILTRATION RATE > 60 mL/min (>60); HEMOLYSIS 3; MAGNESIUM 1.7 mg/dL (1.7-2.5); POTASSIUM 3.4 mEQ/L (3.4-4.9); SODIUM 143 mEQ/L (135-145)
[2017-04-20 08:02] VITALS: BP 181/95
[2017-04-20] MEDS: Nystatin Powder 100,000 units/gm 15gm TOPIC SCH ×3 (08:47→18:40)
[2017-04-20] MEDS: Heparin 5000 units/ml inj SUBQ SCH ×2 (08:48→21:40)
[2017-04-20] MEDS ORDERED: D5 1/2NS 1000ml IV ONE (09:13)
[2017-04-20 11:15] VITALS: BP 153/67
--- NOTE | 2017-04-20 11:31 | Neurology Progress Note ---
Objective Physical Exam Last Vital Signs Date Time Temp Pulse Resp B/P Pulse Ox O2 Delivery O2 Flow Rate FiO2 04/20/17 11:15 96.6 63 18 153/67 97 Room Air 04/19/17 19:30 21 Laboratory Tests Test 04/20/17 05:05 White Blood Count 5.9 K/UL (4.8-10.8) Red Blood Count 4.93 M/UL (4.20-5.40) Hemoglobin 13.8 G/DL (12.0-16.0) Hematocrit 43.2 % (37.0-47.0) Mean Corpuscular Volume 88 FL (80-99) Mean Corpuscular Hemoglobin 28.0 PG (27.0-31.0) Mean Corpuscular Hemoglobin Concent 31.9 G/DL (32.0-36.0) L Red Cell Distribution Width 14.2 % (11.6-14.8) Platelet Count 224 K/UL (150-450) Mean Platelet Volume 8.3 FL (6.5-10.1) Neutrophils (%) (Auto) 60.0 % (45.0-75.0) Lymphocytes (%) (Auto) 24.4 % (20.0-45.0) Monocytes (%) (Auto) 12.2 % (1.0-10.0) H Eosinophils (%) (Auto) 2.4 % (0.0-3.0) Basophils (%) (Auto) 1.1 % (0.0-2.0) Sodium Level 143 mEQ/L (135-145) Potassium Level 3.4 mEQ/L (3.4-4.9) Chloride Level 104 mEQ/L (98-107) Carbon Dioxide Level 26 mEQ/L (20-30) Anion Gap 13 (5-15) Blood Urea Nitrogen 10 mg/dL (7-23) Creatinine 0.7 mg/dL (0.5-0.9) Estimat Glomerular Filtration Rate > 60 mL/min (>60) Glucose Level 115 mg/dL (74-106) H Calcium Level 10.1 mg/dL (8.6-10.2) Magnesium Level 1.7 mg/dL (1.7-2.5) Total Creatine Kinase 912 U/L (26-140) H Impression/Recommendations Status: progressing Recommendations #[id number] PAUL DONATO Apr 20, 2017 11:31
--- NOTE | 2017-04-20 11:48 | Cardiology Progress Note ---
Assessment/Plan Assessment/Plan altered mentation chronic pain systolic murmur sinus tachy rhabo s/p fall ?? 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 i have told her to make suer she get referral to salon customer experience specialist by pmd for fu no furtehr aflutter yest bp at tiem elevated cannot take acei will start hydralazine (avoid clonidine due to need for bb) had ct of ab await result ambulate Subjective Cardiovascular: Denies: chest pain, lightheadedness, palpitations Respiratory: Denies: shortness of breath Gastrointestinal/Abdominal: Denies: abdominal pain Genitourinary: Denies: burning Objective Last 24 Hour Vital Signs Date Time Temp Pulse Resp B/P Pulse Ox O2 Delivery O2 Flow Rate FiO2 04/20/17 11:15 96.6 63 18 153/67 97 Room Air 04/20/17 09:10 77 04/20/17 09:05 67 04/20/17 09:00 66 04/20/17 08:46 76 191/84 04/20/17 08:46 76 191/84 04/20/17 08:02 181/95 04/20/17 08:02 96.4 74 18 181/95 98 Room Air 04/20/17 04:09 68 04/20/17 03:53 98.6 78 18 155/84 94 Room Air 04/20/17 02:54 98.1 04/20/17 00:00 62 04/19/17 23:45 98.1 73 19 142/76 95 Room Air 04/19/17 21:21 76 178/89 04/19/17 20:11 75 76 88 04/19/17 20:10 98.7 75 18 159/78 98 Room Air 04/19/17 20:00 77 04/19/17 19:30 80 20 Room Air 21 04/19/17 16:00 68 04/19/17 15:41 97.5 72 18 148/78 95 Room Air 04/19/17 13:07 136 18 124/77 98 Room Air 04/19/17 12:50 146 157/74 04/19/17 12:50 146 157/74 04/19/17 12:00 102 General Appearance: no apparent distress, alert Neck: supple Cardiovascular: normal rate, regular rhythm Respiratory/Chest: lungs clear, normal breath sounds Abdomen: normal bowel sounds, non tender, soft Extremities: no swelling Intake and Output 04/19/17 04/20/17 19:00 07:00 Intake Total 975 ml 400 ml Balance 975 ml 400 ml Intake Oral 400 ml IV Total 575 ml 400 ml # Voids 1 # Bowel Movements 1 Laboratory Tests Test 04/20/17 05:05 White Blood Count 5.9 K/UL (4.8-10.8) Red Blood Count 4.93 M/UL (4.20-5.40) Hemoglobin 13.8 G/DL (12.0-16.0) Hematocrit 43.2 % (37.0-47.0) Mean Corpuscular Volume 88 FL (80-99) Mean Corpuscular Hemoglobin 28.0 PG (27.0-31.0) Mean Corpuscular Hemoglobin Concent 31.9 G/DL (32.0-36.0) L Red Cell Distribution Width 14.2 % (11.6-14.8) Platelet Count 224 K/UL (150-450) Mean Platelet Volume 8.3 FL (6.5-10.1) Neutrophils (%) (Auto) 60.0 % (45.0-75.0) Lymphocytes (%) (Auto) 24.4 % (20.0-45.0) Monocytes (%) (Auto) 12.2 % (1.0-10.0) H Eosinophils (%) (Auto) 2.4 % (0.0-3.0) Basophils (%) (Auto) 1.1 % (0.0-2.0) Sodium Level 143 mEQ/L (135-145) Potassium Level 3.4 mEQ/L (3.4-4.9) Chloride Level 104 mEQ/L (98-107) Carbon Dioxide Level 26 mEQ/L (20-30) Anion Gap 13 (5-15) Blood Urea Nitrogen 10 mg/dL (7-23) Creatinine 0.7 mg/dL (0.5-0.9) Estimat Glomerular Filtration Rate > 60 mL/min (>60) Glucose Level 115 mg/dL (74-106) H Calcium Level 10.1 mg/dL (8.6-10.2) Magnesium Level 1.7 mg/dL (1.7-2.5) Total Creatine Kinase 912 U/L (26-140) H Microbiology Date/Time Source Procedure Growth Status 04/17/17 17:30 Nasal Nares MRSA Culture - Final NO METHICILLIN RESISTANT STAPH AUREUS... Complete 04/17/17 17:30 Rectum VRE Culture - Final NO VANCOMYCIN RESISTANT ENTEROCOCCUS ... Complete FARZANA BARRAZA Apr 20, 2017 11:48
--- NOTE | 2017-04-20 12:11 | Pulmonology Progress Note ---
Assessment/Plan Problems: (1) Acute encephalopathy (2) Uncontrolled seizures (3) Atrial flutter (4) Chronic back pain (5) Hypertension Assessment/Plan EEG pending one episode of aflutter resolved spontaneously all notes reviewed awaiting neuro recommendation for treatment Subjective ROS Limited/Unobtainable: No Interval Events: d/w dr Song, EEG pending, Allergies: Coded Allergies: LISINOPRIL (Verified Allergy, Unknown, Hives, 04/12/14) Objective Last 24 Hour Vital Signs Date Time Temp Pulse Resp B/P Pulse Ox O2 Delivery O2 Flow Rate FiO2 04/20/17 11:15 96.6 63 18 153/67 97 Room Air 04/20/17 10:08 76 18 Room Air 04/20/17 09:10 77 04/20/17 09:05 67 04/20/17 09:00 66 04/20/17 08:46 76 191/84 04/20/17 08:46 76 191/84 04/20/17 08:02 181/95 04/20/17 08:02 96.4 74 18 181/95 98 Room Air 04/20/17 04:09 68 04/20/17 03:53 98.6 78 18 155/84 94 Room Air 04/20/17 02:54 98.1 04/20/17 00:00 62 04/19/17 23:45 98.1 73 19 142/76 95 Room Air 04/19/17 21:21 76 178/89 04/19/17 20:11 75 76 88 04/19/17 20:10 98.7 75 18 159/78 98 Room Air 04/19/17 20:00 77 04/19/17 19:30 80 20 Room Air 21 04/19/17 16:00 68 04/19/17 15:41 97.5 72 18 148/78 95 Room Air 04/19/17 13:07 136 18 124/77 98 Room Air 04/19/17 12:50 146 157/74 04/19/17 12:50 146 157/74 Intake and Output 04/19/17 04/20/17 19:00 07:00 Intake Total 975 ml 400 ml Balance 975 ml 400 ml Intake Oral 400 ml IV Total 575 ml 400 ml # Voids 1 # Bowel Movements 1 General Appearance: WD/WN HEENT: normocephalic, atraumatic Respiratory/Chest: chest wall non-tender, lungs clear Breasts: no masses Cardiovascular: normal peripheral pulses, normal rate Abdomen: normal bowel sounds, soft, non tender Genitourinary: normal external genitalia Extremities: no cyanosis, no clubbing Microbiology Date/Time Source Procedure Growth Status 04/17/17 17:30 Nasal Nares MRSA Culture - Final NO METHICILLIN RESISTANT STAPH AUREUS... Complete 04/17/17 17:30 Rectum VRE Culture - Final NO VANCOMYCIN RESISTANT ENTEROCOCCUS ... Complete Laboratory Tests 04/20/17 05:05: White Blood Count 5.9, Red Blood Count 4.93, Hemoglobin 13.8, Hematocrit 43.2, Mean Corpuscular Volume 88, Mean Corpuscular Hemoglobin 28.0, Mean Corpuscular Hemoglobin Concent 31.9L, Red Cell Distribution Width 14.2, Platelet Count 224, Mean Platelet Volume 8.3, Neutrophils (%) (Auto) 60.0, Lymphocytes (%) (Auto) 24.4, Monocytes (%) (Auto) 12.2H, Eosinophils (%) (Auto) 2.4, Basophils (%) ( Auto) 1.1, Sodium Level 143, Potassium Level 3.4, Chloride Level 104, Carbon Dioxide Level 26, Anion Gap 13, Blood Urea Nitrogen 10, Creatinine 0.7, Estimat Glomerular Filtration Rate > 60, Glucose Level 115H, Calcium Level 10.1, Magnesium Level 1.7, Total Creatine Kinase 912H, Triglycerides Level [Pending], Cholesterol Level [Pending], LDL Cholesterol [Pending], HDL Cholesterol [Pending ], Cholesterol/HDL Ratio [Pending], Vitamin B12 Level [Pending], Thyroid Stimulating Hormone (TSH) [Pending] Current Medications Medications (Trade) Dose Ordered Sig/Debbie Route PRN Reason Start Time Stop Time Status Last Admin Dose Admin Acetaminophen/ Hydrocodone Bitart (Annabella 5/325) 1 tab Q6H PRN ORAL For Pain 04/18/17 23:00 04/25/17 22:59 04/20/17 08:47 Albuterol/ Ipratropium (DuoNeb 0.5-3(2.5)mg/3ml) 3 ml Q4H PRN HHN Shortness of Breath 04/17/17 16:30 04/22/17 16:29 Amlodipine Besylate (Norvasc) 10 mg DAILY ORAL 04/18/17 10:00 05/18/17 09:59 04/20/17 08:46 Dextrose (D5W 1000ml) 1,000 ml @ 50 mls/hr Q20H IV 04/19/17 14:00 05/19/17 13:59 04/20/17 10:05 Dextrose (Dextrose 50%) STAT PRN IV Hypoglycemia 04/17/17 16:30 05/17/17 16:29 Heparin Sodium (Porcine) (Heparin 5000 units/ml) 5,000 units EVERY 12 HOURS SUBQ 04/17/17 21:00 05/17/17 20:59 04/20/17 08:48 Hydralazine HCl (Apresoline) 5 mg Q4H PRN IV SBP >160 04/17/17 23:30 05/17/17 23:29 04/20/17 08:02 Hydralazine HCl (Apresoline) 25 mg Q8HR ORAL 04/20/17 14:00 05/20/17 13:59 Metoprolol Tartrate 100 mg 100 mg EVERY 12 HOURS ORAL 04/19/17 12:45 05/19/17 12:44 04/20/17 08:46 Nystatin (Nystop Powder) 1 applic THREE TIMES A DAY TOPIC 04/18/17 09:00 05/18/17 08:59 04/20/17 08:47 Temazepam (Restoril) 7.5 mg HSPRN PRN ORAL Insomnia 04/19/17 19:45 04/26/17 19:44 TATYANA PALOMINO Apr 20, 2017 12:11
[2017-04-20 12:13] LABS: CHOLESTEROL/HDL RATIO 5.4 (3.3-4.4)
[2017-04-20 12:23] LABS: THYROID STIMULATING HORMONE 1.37 uIU/mL (0.300-4.500)
--- NOTE | 2017-04-20 12:27 | Diagnostic Imaging Report ---
Indications: Abdominal pain, indeterminate right renal mass Technique: Continuous helical CT imaging of the abdomen and pelvis was performed with automatic exposure control following administration of oral and intravenous nonionic iodine contrast, on a Siemens sensation [address] scanner. Arterial, venous, delayed phase imaging performed. Axial, coronal, and sagittal images were reconstructed at 5 mm slice thickness. CTDI volume(s): 12, 158, 19x3 mGy Total DLP: 2706 mGy-cm Findings: Comparison: Renal ultrasound 04/17/2017; multiple prior CT scans of the abdomen and pelvis ranging from 05/05/2016 back to 04/12/2014 Sharply circumscribed mass is again noted in the anterolateral periphery of upper pole cortex of right kidney, partially exophytic, measuring 15 mm in diameter. It is predominantly low in attenuation with a central focus of relatively increased attenuation. It is not appreciably enhance. It is entirely unchanged in appearance from 2013. 11 mm circumscribed uniformly low attenuation focus in anterior lower pole cortex of right kidney also unchanged. No additional mass corresponding to questionable 3 cm lesion on ultrasound exists. Both kidneys demonstrate otherwise homogeneous, symmetric nephrographic enhancement of in excretion of contrast by both kidneys, bladder opacifying normal caliber renal collecting systems and ureters bilaterally. No stone. No perinephric or periureteral stranding. Urinary bladder contains a small amount of intraluminal gas but is otherwise unremarkable. Circumscribed focus of decreased attenuation in hepatic segment IVb, scattered arterial mural calcifications without obvious flow-limiting stenosis or occlusion, broad-based diastases of the linea alba at and above the level of the umbilicus, separate left lower quadrant ventral hernia in association with left lower quadrant colostomy, containing multiple unremarkable appearing small bowel loops all unchanged. Segmental differential mural thickening of the descending colon above the level of colostomy now suggested. 5 cm loculated fluid collection resides adjacent to the colostomy hernia sac within the left lower quadrant subcutaneous soft tissues. Sigmoid colon has been resected. Residual rectal stump noted with adjacent surgical clips. Remainder of gastrointestinal tract anatomy demonstrates no other obvious acute abnormality. Minimal subsegmental atelectasis in both lung bases. Small right pleural effusion. Mild degenerative changes in lumbar spine. Impression: Stable 1.5 cm lesion in upper pole cortex of right kidney, not corresponding to apparent 3 cm sonographic mass, likely representing complex/complicated cyst. Apparent sonographic finding likely artifactual. Stable 1.1 cm simple cyst lower pole right kidney Interval sigmoid colon resection with left lower quadrant colostomy, associated hernia containing small bowel loops, adjacent to 5 cm fluid collection anterior abdominal wall which is nonspecific Apparent mural thickening of descending colon proximal to colostomy may represent under distention. Mural pathology not excludable. Consider colonoscopy for further evaluation. Liver lesion most likely focal fatty infiltration Arteriosclerosis Small right pleural effusion, nonspecific Pulmonary bibasal subsegmental atelectasis Degenerative spondylosis
--- NOTE | 2017-04-20 13:40 | Diagnostic Imaging Report ---
APPROVED REPORT CPT Code: 50637 Vascular Symptoms Syncope Doppler Spectral Velocity Analysis RightLeft RIGHT SIDE: CCA/ECA - Imaging reveals no significant plaque in the common carotid and external carotid arteries. ICA - Imaging reveals irregular plaque in the internal carotid artery. The Doppler signal indicates the degree of stenosis is mild (30%) in the internal carotid artery. VERTEBRAL-The vertebral artery is patent, without evidence of stenosis or steal. LEFT SIDE: CCA - Imaging reveals no significant plaque within the extracranial carotid arteries. The Doppler spectral flow analysis is within normal limits throughout the extracranial carotid arteries. VERTEBRAL - The vertebral artery is within normal limits.
--- NOTE | 2017-04-20 14:31 | Consultation ---
DATE OF CONSULTATION: 04/20/2017 REQUESTING PHYSICIAN: Murray Burton M.D. HISTORY OF PRESENT ILLNESS: This is a 66-year-old female, seen in neurological consultation to evaluate the recurrent episodes of unresponsiveness. According to the patient, she has no full recollection of event, but she knows that she was in bed and probably sleep, then apparently she fell off the bed down to the ground, hit her head and remained unresponsive for couple of hours. Meanwhile, her boyfriend called the daughter and then called paramedics and she was brought to the emergency room. Accu-Chek was normal, she was unable to respond to questions. There was no other focal findings. The patient was not cooperative for examination. She was able to open eyes, but was not responding to any command. Blood sugar was normal. Her vital signs on admission, blood pressure 174/85, temperature 99.1 degrees. After observation, blood pressure went up to 210/82, remained hypertensive during hospitalization. Heart rate fluctuating up to 136. Imaging studies included a CAT scan of the brain revealing a prominence of ventricles and extraaxial CSF spaces with no hemorrhage and no acute intracranial abnormality noted, chronic age-related changes. Remained stable since her last CT obtained on 03/22/2017. Her chest x-ray with no acute finding. Ultrasound, no mass or lesions noted. A 2D echocardiogram, no mural thrombi. The patient had a previous assessment at that facility initially on February 2017. She was brought in by her daughter, who was concerned that she might have a stroke after having at least two episodes of fall and described being confused after fall. Although, on arrival to the emergency room, she was back to her baseline. She was complaining of 10/10, throbbing, nonradiating knee pain. Blood pressure was very high at 192/109. The patient claimed that she was not taking any medications on the day of admission. An EKG revealed normal sinus rhythm. Second hospitalization was in 03/25/2017, the patient again was brought by her friend. The patient described as found to be diaphoretic and nonresponsive. She had difficulty responsive with a history of two recent decreased mentation episode as well, which was related to the fall. The patient was taken Soma and some other analgesics and was not sure if she overdosed with medication. There was a swelling of left lower extremity. The patient was given Narcan, which improved her mentation. Ultrasound of both lower extremities, no evidence of DVT. Her laboratory work included a normal ammonia level. Normal troponin. Elevated creatinine 1.5 and BUN of 23. Following current admission until present time, there was no further paroxysmal activities. PAST MEDICAL HISTORY: The patient has a history of diverticulitis, required colostomy, history of hypertension, history of chronic pain syndrome related to degenerative joint disease with severe both knee pain. Insomnia. MEDICATIONS: Her treatment prior to admission included Bactrim, triamterene, trazodone 200 mg at bedtime, simvastatin 40 mg at bedtime, metoprolol, hydrocodone 10 mg q.6 hours p.r.n., hydrochlorothiazide, gabapentin 300 mg at bedtime, Cymbalta 60 mg b.i.d., doxazosin, Voltaren 75 mg b.i.d., Soma q.6 hours p.r.n., Flexeril 10 mg three times a day, baclofen 10 mg p.r.n. . ALLERGIES: Lisinopril. FAMILY HISTORY: Noncontributory. SOCIAL HISTORY: The patient stated that she is a , but now lives with a boyfriend. She has a daughter helping her. The patient indicated she is doing all activities of daily living, although with difficulties using walker due to severe knee pain. REVIEW OF SYMPTOMS: The patient stated now she is feeling fine except pain in her knee. She denies headache, dizziness, or occasional episodes when she is getting up. No chest pain. No palpitations. No respiratory problems. Unaware of having strokes, TIA, or seizures. PHYSICAL EXAMINATION: GENERAL: Well-developed, obese female, not in acute distress, lying comfortably in bed. VITAL SIGNS: Her vital signs now are stable with blood pressure 153/67, heart rate of 62, and temperature 96.6 degrees. HEENT: Head, normocephalic. There is a bruise on the left zygomatic region. No otorrhea. No rhinorrhea. NECK: Supple. No meningeal signs. MUSCULOSKELETAL: Arthritic changes in both knees. Tender on palpation. This is a 1+ pitting edema both ankles. Peripheral pulses 1+ and symmetric. MENTAL STATUS: She is alert and oriented to her name, age, place, and address, but confused with year, stating it is 1917, then corrected with 1970, seems surprised to now it is 2017. She is a poor historian, has poor recollection indicating only that she probably slept during episodes of unresponsiveness. She describes no tongue biting. No urine or bowel incontinence. She is pleasant, cooperative, and follows commands. CRANIAL NERVE II: Pupils both responding to light and accommodation. Extraocular movements intact. No nystagmus. CRANIAL NERVE V: Normal corneal responses. CRANIAL NERVE VII: No facial asymmetry. CRANIAL NERVE VIII: Grossly normal hearing. CRANIAL NERVES IX THROUGH XII: Tongue is in midline. Symmetric palate elevation. MOTOR EXAMINATION: Normal muscle tone and strength 5/5 in all extremities. No involuntary movement. Deep tendon reflexes 1+ symmetric with downgoing toes on both sides. SENSORY EXAMINATION: Normal to pinprick and light touch. Gait not tested. IMPRESSION: 1. This is a 66-year-old female with recurrent episodes of loss of consciousness with fall, etiology not determined. Rule out seizure activities, rule out over medications, toxic encephalopathy. 2. Hypertension, poor control. 3. Morbid obesity. 4. Hyperlipidemia. 5. Chronic pain syndrome. 6. Osteoarthritis, severe knee pain. 7. Polypharmacy. RECOMMENDATION: 1. Reduce all unessential medications. 2. Electroencephalogram to obtain. 3. Recheck orthostatic blood pressure. 4. Carotid duplex. 5. Pain management. Thank you for allowing me to see this interesting patient in neurological consultation. Efren Song M.D. DR: PRITI JOB#: [id number] CC:
[2017-04-20] MEDS: HydrALAZINE 25mg tab ORAL SCH ×2 (15:11→21:40)
[2017-04-20 15:24] VITALS: BP 157/103
[2017-04-20 20:00] VITALS: BP 137/69
[2017-04-21] VITALS: BP 142/70
[2017-04-21] MEDS: Norco 5mg/325mg tab ORAL PRN ×2 (03:41→09:57)
[2017-04-21 03:59] VITALS: BP 159/68
[2017-04-21] MEDS: HydrALAZINE 25mg tab ORAL SCH (05:41)
[2017-04-21 08:00] VITALS: BP 172/92
--- NOTE | 2017-04-21 09:31 | Pulmonology Progress Note ---
Assessment/Plan Problems: (1) Acute encephalopathy (2) Uncontrolled seizures (3) Atrial flutter (4) Chronic back pain (5) Hypertension Assessment/Plan EEG done, result pending one episode of aflutter resolved spontaneously all notes reviewed awaiting neuro recommendation for treatment Pain consult monitor BP Subjective ROS Limited/Unobtainable: No Interval Events: no more episodes of syncope, c/o severe pain Allergies: Coded Allergies: LISINOPRIL (Verified Allergy, Unknown, Hives, 04/12/14) Objective Last 24 Hour Vital Signs Date Time Temp Pulse Resp B/P Pulse Ox O2 Delivery O2 Flow Rate FiO2 04/21/17 08:18 77 20 Room Air 21 04/21/17 08:00 97.9 63 18 172/92 95 Room Air 04/21/17 05:41 145/85 04/21/17 04:00 66 04/21/17 03:59 98.5 52 18 159/68 98 Room Air 04/21/17 00:00 98.2 58 18 142/70 94 Room Air 04/21/17 00:00 60 04/20/17 21:40 137/69 04/20/17 21:39 77 137/69 04/20/17 20:52 77 76 84 04/20/17 20:00 98.6 77 19 137/69 96 Room Air 04/20/17 20:00 75 04/20/17 19:30 77 20 Room Air 21 04/20/17 16:00 77 04/20/17 15:24 97.2 81 18 157/103 100 Room Air 04/20/17 15:11 157/103 04/20/17 12:00 66 04/20/17 11:15 96.6 63 18 153/67 97 Room Air 04/20/17 10:08 76 18 Room Air 21 Intake and Output 04/20/17 04/21/17 19:00 07:00 Intake Total 1030 ml 600 ml Output Total 700 ml 500 ml Balance 330 ml 100 ml Intake Oral 480 ml IV Total 550 ml 600 ml Output Urine Total 700 ml 500 ml # Voids 2 # Bowel Movements 1 General Appearance: WD/WN HEENT: normocephalic, atraumatic, anicteric Respiratory/Chest: chest wall non-tender, lungs clear Breasts: no masses Cardiovascular: normal peripheral pulses Abdomen: normal bowel sounds, soft, non tender Genitourinary: normal external genitalia Extremities: no cyanosis Skin: no rash, no ulcers 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 II-XII grossly normal, no motor/sensory deficits Current Medications Medications (Trade) Dose Ordered Sig/Debbie Route PRN Reason Start Time Stop Time Status Last Admin Dose Admin Acetaminophen/ Hydrocodone Bitart ([place] 5/325) 1 tab Q6H PRN ORAL For Pain 04/18/17 23:00 04/25/17 22:59 04/21/17 03:41 Albuterol/ Ipratropium (DuoNeb 0.5-3(2.5)mg/3ml) 3 ml Q4H PRN HHN Shortness of Breath 04/17/17 16:30 04/22/17 16:29 Amlodipine Besylate (Norvasc) 10 mg DAILY ORAL 04/18/17 10:00 05/18/17 09:59 04/20/17 08:46 Dextrose (D5W 1000ml) 1,000 ml @ 50 mls/hr Q20H IV 04/19/17 14:00 05/19/17 13:59 04/21/17 05:41 Dextrose (Dextrose 50%) STAT PRN IV Hypoglycemia 04/17/17 16:30 05/17/17 16:29 Heparin Sodium (Porcine) (Heparin 5000 units/ml) 5,000 units EVERY 12 HOURS SUBQ 04/17/17 21:00 05/17/17 20:59 04/20/17 21:40 Hydralazine HCl (Apresoline) 5 mg Q4H PRN IV SBP >160 04/17/17 23:30 05/17/17 23:29 04/20/17 08:02 Hydralazine HCl (Apresoline) 25 mg Q8HR ORAL 04/20/17 14:00 05/20/17 13:59 04/21/17 05:41 Metoprolol Tartrate 100 mg 100 mg EVERY 12 HOURS ORAL 04/19/17 12:45 05/19/17 12:44 04/20/17 21:39 Nystatin (Nystop Powder) 1 applic THREE TIMES A DAY TOPIC 04/18/17 09:00 05/18/17 08:59 04/20/17 18:40 Temazepam (Restoril) 7.5 mg HSPRN PRN ORAL Insomnia 04/19/17 19:45 04/26/17 19:44 04/20/17 22:46 TATYANA PALOMINO Apr 21, 2017 09:31
[2017-04-21] MEDS: Nystatin Powder 100,000 units/gm 15gm TOPIC SCH (10:01)
[2017-04-21] MEDS: Heparin 5000 units/ml inj SUBQ SCH (10:01)
--- NOTE | 2017-04-21 11:28 | Cardiology Progress Note ---
Assessment/Plan Assessment/Plan altered mentation chronic pain systolic murmur sinus tachy rhabo s/p fall ?? 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 bp at tiem elevated cannot take acei will increase hydralazine (avoid clonidine due to need for bb) ambualte Subjective Cardiovascular: Denies: chest pain, lightheadedness, palpitations Respiratory: Denies: shortness of breath Gastrointestinal/Abdominal: Denies: abdominal pain Genitourinary: Denies: burning Objective Last 24 Hour Vital Signs Date Time Temp Pulse Resp B/P Pulse Ox O2 Delivery O2 Flow Rate FiO2 04/21/17 09:57 81 171/85 04/21/17 09:56 81 171/85 04/21/17 09:00 78 81 78 04/21/17 08:18 77 20 Room Air 04/21/17 08:00 73 04/21/17 08:00 97.9 63 18 172/92 95 Room Air 04/21/17 05:41 145/85 04/21/17 04:00 66 04/21/17 03:59 98.5 52 18 159/68 98 Room Air 04/21/17 00:00 98.2 58 18 142/70 94 Room Air 04/21/17 00:00 60 04/20/17 21:40 137/69 04/20/17 21:39 77 137/69 04/20/17 20:52 77 76 84 04/20/17 20:00 98.6 77 19 137/69 96 Room Air 04/20/17 20:00 75 04/20/17 19:30 77 20 Room Air 04/20/17 16:00 77 04/20/17 15:24 97.2 81 18 157/103 100 Room Air 04/20/17 15:11 157/103 04/20/17 12:00 66 General Appearance: no apparent distress, alert Neck: no JVD Cardiovascular: normal rate, regular rhythm Respiratory/Chest: lungs clear, normal breath sounds Abdomen: normal bowel sounds, non tender, soft Extremities: trace edema Intake and Output 04/20/17 04/21/17 19:00 07:00 Intake Total 1030 ml 600 ml Output Total 700 ml 500 ml Balance 330 ml 100 ml Intake Oral 480 ml IV Total 550 ml 600 ml Output Urine Total 700 ml 500 ml # Voids 2 # Bowel Movements 1 FARZANA BARRAZA Apr 21, 2017 11:28
[2017-04-21 12:00] VITALS: BP 158/76
[2017-04-21] MEDS ORDERED: HydrALAZINE 50mg tab ORAL SCH (14:00)
--- NOTE | 2017-04-22 10:02 | Diagnostic Imaging Report ---
Indications: Altered mental status Technique: Sagittal and axial T1 weighted FLAIR, axial T2-weighted fat saturated fast spin echo propeller, T2-weighted FLAIR, T2*-weighted gradient echo, and diffusion sequences of the brain were performed without IV gadolinium administration. Findings: Comparison: Noncontrast CT head 04/17/17 Multiple small foci of T2 signal hyperintensity scattered throughout bilateral periventricular, deep, subcortical white matter. Pedicles, cisterns, sulci are diffusely prominent. No evidence of mass or hemorrhage, other signal abnormality, mass effect, midline shift, hydrocephalus, or increased intracranial pressure. No restricted diffusion. Central vascular flow voids are preserved. IMPRESSION: No evidence of acute intracranial pathology, unchanged Bilateral white matter mild focal signal hyperintensity likely chronic microvascular ischemic Atrophy, somewhat prominent for age. No change from prior exam.
--- NOTE | 2017-04-23 06:00 | Discharge Summary 2 SIG ---
DATE OF ADMISSION: 04/17/2017 DATE OF DISCHARGE: 04/21/2017 REASON FOR ADMISSION: The patient is a 66-year-old female, who was brought in with altered mental status. Boyfriend found her lying on the floor and called the daughter, who in turn called engraver tire mold. Accu-Chek was stable, within normal limits. She was unable to answer all questions at that time. She was afebrile. No leukocytosis. CT of the head revealed no acute intracranial pathology. Chest x-ray revealed no acute cardiopulmonary pathology. CK was 3554, elevated. Blood pressure highest 210/82. Elevated alkaline phosphatase. BUN 36 and creatinine 1.6. Narcan given. There was brief response, then patient fell asleep again. ABG revealed no evidence of respiratory acidosis. The patient was able to protect her airway and had intact gag reflex. I feel that did not meet any need for emergent intubation. The patient admitted to telemetry floor. ADMITTING DIAGNOSES: 1. Acute toxic encephalopathy secondary to overdose. 2. Overdose on pain medication. 3. Rhabdomyolysis. 4. Questionable fall. 5. Acute renal failure. 6. Hypertensive urgency. 7. Colostomy. HOSPITAL STAY: The patient admitted to telemetry floor. Urine tox screen was positive for benzodiazepine and opiates. However, the patient was taking the medication, taking the benzodiazepine and opiates on regular basis for chronic back pain and gag was negative. No Narcan drip was decided at that time and neuro checks and gag reflex every two hours. For the first 24 hours, the patient was on the IV fluids. Renal parameters and electrolytes were closely monitored. CK was trending down. Renal ultrasound was ordered. Blood pressure was managed on IV hydralazine initially. DVT prophylaxis provided. Psychiatric, neuro, and cardiac consults were requested. Subsequently, rail car repair carman have seen the patient. According to rail car repair carman, the patient has a questionable fall, systolic normal sinus tachycardia. The patient's electrocardiogram was negative. Troponins were negative. No chest pain. No signs of congestive heart failure. According to the history from engraver tire mold run sheet, it was not suggestive of syncope as the cause of the patient issue, however, orthostatic vital signs were checked and the patient found to be orthostatic likely secondary to dehydration and volume depletion. The patient was on the IV hydration and the patient was kept on telemetry for another 24 hours and was improving. IV fluids provided. Echocardiogram revealed ejection fraction of 65%, pulmonary systolic pressure of 44, mild left ventricular hypertrophy, and moderate left atrial enlargement. The patient had a systolic murmur. It could be related to the flow as well as the aortic cusp sclerosis. Neurology subsequently also seen the patient and per neurologist, the patient continued to have recurrent episodes, the loss of consciousness is full. Etiology was not determined. He wanted to rule out seizure activity versus over medication related to, recommended good control of blood pressure, reduce all unnecessarily medication. Recheck EEG. Carotid duplex was essentially negative as well as MRI of the brain. Head Of Merchandise Buying closely followed. Again, no chest pain, no shortness of breath, no signs of CHF. Troponin negative. EKG negative. Blood pressure higher. IV fluids discontinued. Blood pressure with beta-gabriel and hydralazine. The patient had episodes of atrial flutter, responded to beta-gabriel and started on beta-gabriel. The patient need long-term follow up with the rail car repair carman. Head Of Merchandise Buying spoke with the patient about that and the patient is aware of that. The patient needs to have a referral from primary care provider to rail car repair carman. No further atrial flutter. The patient unfortunately is allergic to JENA inhibitor. blood pressure controlled with beta-gabriel and hydralazine. Avoid clonidine due to the need for beta-gabriel for tachycardia control. The patient had a CT of the abdomen and pelvis done, which carefully reviewed, it does not show any acute pathology. EEG results still pending. The patient's mental status improved to baseline. Lipid panel reviewed, elevated triglycerides and elevated LDL. The patient started on the statin and aspirin. Psychiatrist has seen the patient. According to psychiatrist, the patient's condition is likely due to the overdose; however, the patient denied suicidal ideation or suicidal attempt. According to psychiatrist, the patient not an imminent danger to herself or danger to others. CK was trending down. Renal parameters improved with IV hydration. Acute renal failure likely secondary to rhabdomyolysis, resolved. Prior to signing against medical advice, BUN was 10 and creatinine was 0.7. While upon admission, BUN was 36 and creatinine 1.5. CK from 3554 down to 912. The patient decided to sign against medical advice. The patient did not want to listen to anyone. The patient did not want to hear any other explanation. All risks and consequences of leaving against medical advice discussed with the patient. The patient insisted on leaving. FINAL DIAGNOSES: 1. Acute toxic encephalopathy, possibly due to overdose versus syncope. 2. Possible overdose on pain medication. 3. Possible syncope. 4. Initial stupor, resolved. 5. Rhabdomyolysis. 6. Acute renal failure, resolved. 7. Hypertensive urgency. 8. Colostomy. 9. Chronic back pain. 10. Chronic pain syndrome. 11. Sinus tachycardia. 12. Episodes of atrial flutter. EEG still pending. The patient signed against medical advice. Murray Burton M.D. I have been assigned to dictate discharge summary on this account and I was not involved in the patient's management. Mary Camilogenesee hospitalNohemy N.PJaimee DR: PRADIP JOB#: [id number] CC:
--- NOTE | 2017-04-24 14:54 | General Progress Note ---
Assessment/Plan Status: doing well, stable, progressing Subjective Date patient seen: Apr 21, 2017 Constitutional: Reports: malaise, weakness Neurologic/Psychiatric: Reports: anxiety, depressed, emotional problems Allergies: Coded Allergies: LISINOPRIL (Verified Allergy, Unknown, Hives, 04/12/14) All Systems: reviewed and negative except above Objective Height (Feet): 5 Height (Inches): 9.00 Weight (Pounds): 210 General Appearance: no apparent distress, alert Neurologic: alert, oriented x 3, responsive, depressed affect Woody Gilbert M.D. Apr 24, 2017 14:54
== END 2017-04-21 13:30 | disposition left against medical advice (07) | DRG 812 ==
LOC: EDBD 12:03 → EDBEDREQ 13:10 → EMR 13:21 → 2E 13:30 → EDBEDREQ 14:22 → 2E 04-18 17:52
DX: T40.2X1A Poisoning by other opioids, accidental (unintentional), initial encounter (principal); G92 Toxic encephalopathy; N17.9 Acute kidney failure, unspecified; M62.82 Rhabdomyolysis; R47.01 Aphasia; I48.92 Unspecified atrial flutter; E66.01 Morbid (severe) obesity due to excess calories; R55 Syncope and collapse; I16.0 Hypertensive urgency; Z93.3 Colostomy status; Y92.009 Unspecified place in unspecified non-institutional (private) residence as the place of occurrence of the external cause; E86.0 Dehydration; M54.9 Dorsalgia, unspecified; E78.5 Hyperlipidemia, unspecified; G89.4 Chronic pain syndrome; R01.1 Cardiac murmur, unspecified; E87.6 Hypokalemia
CPT/HCPCS: 36415; 36600; 70450; 70551; 71010; 74177; 76775; 80048; 80053; 80061; 80300; 80329; 81003; 82140; 82550; 82607; 82803; 82962; 83605; 83735; 84443; 84484; 85025; 87081; 93005; 93880; 94664; 95819; J2310; J8499

== ENCOUNTER 2017-11-14 01:46 | Inpatient (IN) | payer MEDICARE, MEDICAID ==
[2017-11-14] VITALS (7 sets, daily range): BP systolic 130–160; BP diastolic 77–87
[~2017-11-14] VITALS: Ht 172.7 cm; Wt 77.1 kg
[~2017-11-14 01:46] MED LIST changes: +BACTRIM-DS1 EA ORAL; +CYMBALTA60 MG ORAL; +DICLOFENAC SODI75 MG ORAL; +GABAPENTIN300 MG ORAL; +METOPROLOL TAR100 M1 ORAL; +PROMETHAZINE V473 ML PO
--- NOTE | 2017-11-14 02:13 | Emergency Room Report ---
History of Present Illness General Chief Complaint: Generalized Weakness Source: Medical Record, EMS Present Illness HPI Is a 67-year-old female with history of chronic pain. She's been here a couple times for overdose on her pain medication. Patient presents with altered mental status. She's been falling more frequently in the last week. No focal deficit. Has generalized weakness. No nausea no vomiting. No fever or chills. History limited in this patient because of her confusion and medical condition. History is through EMS. Allergies: Coded Allergies: LISINOPRIL (Verified Allergy, Unknown, Hives, 04/12/14) Patient History Past Medical History: see triage record, old chart reviewed, HTN Past Surgical History: other Pertinent Family History: none Social History: Denies: drug use Last Menstrual Period: n/a Now: No Immunizations: other Reviewed Nursing Documentation: PMH: Agreed, PSxH: Agreed Nursing Documentation-PMH Past Medical History: No History, Except For Hx Cardiac Problems: Yes Hx Hypertension: Yes Hx Pacemaker: No - CHRONIC NECK PAIN Hx Diabetes: Yes Hx Cancer: No Hx Gastrointestinal Problems: Yes Hx Neurological Problems: No Review of Systems Constitutional: Reports: weakness Eye: Denies: eye pain, blurred vision ENT: Denies: ear pain, nose congestion, throat swelling Respiratory: Denies: cough, shortness of breath Cardiovascular: Denies: chest pain, palpitations Gastrointestinal: Denies: abdominal pain, diarrhea, nausea, vomiting Musculoskeletal: Denies: back pain, joint pain Skin: Denies: rash Neurological: Denies: headache, numbness Endocrine: Denies: increased thirst, increased urine Hematologic/Lymphatic: Denies: easy bruising All Other Systems: negative except mentioned in HPI Physical Exam Vital Signs Date Time Temp Pulse Resp B/P (MAP) Pulse Ox O2 Delivery O2 Flow Rate FiO2 11/14/17 01:40 97.9 140 18 130/82 97 Room Air vitals with tachycardia Sp02 EP Interpretation: reviewed, normal General Appearance: no apparent distress, lethargic, Chronically Ill Head: normocephalic, atraumatic Eyes: bilateral eye PERRL, bilateral eye EOMI ENT: hearing grossly normal, normal pharynx Neck: full range of motion, supple, no meningismus Respiratory: chest non-tender, lungs clear, normal breath sounds Cardiovascular #1: no murmur, tachycardia, other - Irregular pattern Gastrointestinal: normal bowel sounds, non tender, no mass, no organomegaly, no bruit, non-distended Musculoskeletal: back normal, normal range of motion Neurologic: grossly normal Psychiatric: depressed affect Skin: warm/dry Medical Decision Making Diagnostic Impression: Primary Impression: Acute encephalopathy Additional Impressions: Overdose of opiate or related narcotic Qualified Codes: T40.601A - Poisoning by unspecified narcotics, accidental ( unintentional), initial encounter Cocaine abuse Hypokalemia Hypertension Qualified Codes: I10 - Essential (primary) hypertension ER Course Patient presents with an altered mental status. This is secondary to most likely polysubstance. She said was issue in the past with opiate and benzo. Now positive for cocaine. No evidence of seizure. No evidence of TIA or CVA. No ACS. Heart rate improved after beta gabriel. I suspect that she is noncompliant with her blood pressure medication. Will admit for further workup. Because her primary care doctor is Dr. Hodges, will admit to Dr. Andrew. Lab Results Impression labs unremarkable EKG Diagnostic Results Rate: tachycardiac Rhythm: NSR ST Segments: no acute changes Rhythm Strip Diag. Results Rhythm Strip Time: 04:38 EP Interpretation: yes Rate: 100 Rhythm: NSR, no PVC's, no ectopy Chest X-Ray Diagnostic Results Chest X-Ray Diagnostic Results : Chest X-Ray Ordered: Yes # of Views/Limited/Complete: 1 View Indication: Shortness of Breath EP Interpretation: Yes Interpretation: no consolidation, no effusion, no pneumothorax Impression: No acute disease Electronically Signed by: John Estrada MD CT/MRI/US Diagnostic Results CT/MRI/US Diagnostic Results : Imaging Test Ordered: CT head Impression Read by radiologist. Negative. Last Vital Signs Date Time Temp Pulse Resp B/P (MAP) Pulse Ox O2 Delivery O2 Flow Rate FiO2 11/14/17 01:50 97.9 18 130/82 97 Room Air 11/14/17 01:40 140 Status: improved Disposition: ADMITTED INPATIENT Condition: Serious Referrals: NON PHYSICIAN (PCP) JOHN ESTRADA M.D. Nov 14, 2017 02:13
[2017-11-14] MEDS ORDERED: Metoprolol 5mg/5ml Inj IVP ONE (02:30)
[2017-11-14 02:51] LABS: BASOPHILS % (AUTO) 0.8 % (0.0-2.0); EOSINOPHILS % (AUTO) 0.3 % (0.0-3.0); HEMOGLOBIN 13.9 G/DL (12.0-16.0); LYMPHOCYTES % (AUTO) 8.2 % (20.0-45.0); MEAN CORPUSCULAR VOLUME 88 FL (80-99); MONOCYTES % (AUTO) 9.9 % (1.0-10.0); NEUTROPHILS % (AUTO) 80.9 % (45.0-75.0); PLATELET COUNT 222 K/UL (150-450); RED BLOOD COUNT 5.13 M/UL (4.20-5.40); RED CELL DISTRIBUTION WIDTH 13.3 % (11.6-14.8); WHITE BLOOD COUNT 7.6 K/UL (4.8-10.8)
[2017-11-14 02:53] LABS: APPEARANCE,URINE CLEAR; BILIRUBIN, URINE 1+ (NEGATIVE); GLUCOSE, URINE (UA) NEGATIVE (NEGATIVE); KETONES,URINE 3+ (NEGATIVE); LEUKOCYTE ESTERASE ,URINE 1+ (NEGATIVE); NITRITE,URINE NEGATIVE (NEGATIVE); PH,URINE 6 (4.5-8.0); PROTEIN,URINE 2+ (NEGATIVE); UROBILINOGEN,URINE 4 MG/DL (0.0-1.0)
[2017-11-14 03:03] LABS: ANION GAP 5 mmol/L (5-15); BLOOD UREA NITROGEN 24 mg/dL (7-18); CALCIUM 10.2 MG/DL (8.5-10.1); CARBON DIOXIDE 33 MMOL/L (21-32); CHLORIDE 106 MMOL/L (98-107); CREATININE 1.2 MG/DL (0.55-1.30); POTASSIUM 3.2 MMOL/L (3.5-5.1); SODIUM 144 MMOL/L (136-145)
[2017-11-14 03:17] LABS: COLOR,URINE YELLOW
[2017-11-14] MEDS ORDERED: LORazepam Inj 2mg/ml 1ml IV PRN (09:00)
--- NOTE | 2017-11-14 09:25 | Diagnostic Imaging Report ---
Indication: Altered mental status Technique: Continuous helical CT scanning of the head was performed utilizing automated exposure control without intravenous contrast material. Axial and coronal reconstructions were obtained. Comparison: MRI of the brain 04/20/2017; CT head 04/17/2017. CT dose: Total DLP 1530.42 mGycm; CTDI vol 70.38 mGy Findings: There is no acute intracranial hemorrhage, mass effect or cortical edema. The ventricles, cisterns and sulci are prominent consistent with atrophy; size and configuration of the ventricular system is stable compared to the prior exam. Periventricular hypoattenuation is seen, a nonspecific finding. Visualized mastoid air cells and paranasal sinuses are unremarkable. No focal lesions of the bony calvarium or soft tissues of the scalp are seen. IMPRESSION: No evidence of acute intracranial hemorrhage, mass effect or cortical edema. MRI may be obtained for more sensitive evaluation as clinically indicated. Atrophy and nonspecific periventricular hypoattenuation suggestive of chronic ischemic microvascular changes. This corresponds with the statrad preliminary report. The CT scanner at [facility] is accredited by the [employer] and the scans are performed using protocols designed to limit radiation exposure to as low as reasonably achievable to attain images of sufficient resolution adequate for diagnostic evaluation.
[2017-11-14] MEDS: Heparin 5000 units/ml inj SUBQ SCH ×2 (09:34→21:26)
[2017-11-14 11:41] LABS: ALANINE AMINOTRANSFERASE 7 U/L (12-78); ALBUMIN 2.5 G/DL (3.4-5.0); ALBUMIN/GLOBULIN RATIO 0.5 (1.0-2.7); ALKALINE PHOSPHATASE 141 U/L (46-116); ANION GAP 8 mmol/L (5-15); ASPARTATE AMINO TRANSFERASE 80 U/L (15-37); BILIRUBIN,TOTAL 0.6 MG/DL (0.2-1.0); BLOOD UREA NITROGEN 20 mg/dL (7-18); CALCIUM 9.4 MG/DL (8.5-10.1); CARBON DIOXIDE 28 MMOL/L (21-32); CHLORIDE 109 MMOL/L (98-107); CREATININE 0.9 MG/DL (0.55-1.30); POTASSIUM 3.4 MMOL/L (3.5-5.1); SODIUM 145 MMOL/L (136-145)
--- NOTE | 2017-11-14 12:14 | Diagnostic Imaging Report ---
Indication: Altered mental status Technique: XRAY Chest 1v Comparison: 04/17/2017 Findings: Borderline cardiomegaly stable. Mediastinal contours are sharp. Lung volumes are low, artifactually exaggerate vascular markings. No definite focal consolidation. No pleural effusion or pneumothorax. There is degenerative change of the spine. No acute osseous abnormality seen. Impression: Limited exam. No radiographic evidence of acute cardiopulmonary disease.
[2017-11-14] MEDS ORDERED: Tubing IV Secondary IV ONE (16:13)
--- NOTE | 2017-11-14 18:00 | History and Physical Report ---
DATE OF ADMISSION: 11/14/2017 CHIEF COMPLAINT: Altered mental status, possible drug overdose. HISTORY OF PRESENT ILLNESS: The patient is a 67-year-old female, who was brought in with complaints of altered mental status. She has had prior episodes at presentation in the ER because of possible overdose on pain medications. The patient is unclear how she actually ended up in the ER. She denies taking any medications including pain medications. On evaluation in the emergency room, the patient's tox screen was positive for opiates, benzodiazepines, and cocaine. She was tachycardiac. She had a CAT scan of the head that was negative. In light of her tachycardia and persistent altered mentation, she is admitted for further evaluation and care. PAST MEDICAL HISTORY: None. PAST SURGICAL HISTORY: None. CURRENT MEDICATIONS: The patient states none. ALLERGIES: Lisinopril. FAMILY HISTORY: None. SOCIAL HISTORY: The patient denies any tobacco, ethanol, or drugs. REVIEW OF SYSTEMS: GENERAL: No fever or chills. HEENT: No headaches or visual changes. CARDIOPULMONARY: No chest pain or shortness of breath. GASTROINTESTINAL: No nausea or vomiting. GENITOURINARY: No urgency or frequency. MUSCULOSKELETAL: No joint pain or swelling. NEUROLOGIC: No evidence of seizures. PHYSICAL EXAMINATION: VITAL SIGNS: Temperature 98.2, pulse 117, respirations 20, and blood pressure 159/77. GENERAL: The patient is a well-developed female, in no apparent distress. She is awake, alert, and oriented to person, place, and time. NECK: Supple. There is no adenopathy. HEART: Regular rate and rhythm. LUNGS: Clear. ABDOMEN: Soft, nontender, and nondistended. EXTREMITIES: Without clubbing, cyanosis, or edema. There is some ecchymosis on the left wrist and hand and slight swelling. LABORATORY DATA: CT scan of the head was negative. White count was 7, hemoglobin 13, and platelet count 222,000. Sodium 144, potassium is 3.2, and glucose of 135. ASSESSMENT: This is a pleasant female with complaints of altered mentation secondary to drug overdose. She appears to be improved although she is tachycardic and may be having some withdrawal. PLAN: 1. IV hydration. 2. P.r.n. blood pressure medication regimen. 3. X-ray of the left hand. 4. director client services evaluation. Roby Andrew M.D. DR: JASON JOB#: [id number] CC:
[2017-11-15] VITALS (7 sets, daily range): BP systolic 128–176; BP diastolic 85–105
[2017-11-15] MEDS: Heparin 5000 units/ml inj SUBQ SCH ×2 (09:00→21:19)
--- NOTE | 2017-11-15 12:29 | General Progress Note ---
Assessment/Plan Problem List: (1) Chronic back pain ICD Codes: M54.9 - Dorsalgia, unspecified; G89.29 - Other chronic pain SNOMED: 865490838 (2) Cocaine abuse ICD Codes: F14.10 - Cocaine abuse, uncomplicated SNOMED: 31620759 (3) Acute encephalopathy ICD Codes: G93.40 - Encephalopathy, unspecified SNOMED: 3125391 Status: stable Assessment/Plan on ivf repeat tox screen replace k dialysis social worker eval pt/ot Subjective ROS Limited/Unobtainable: No Constitutional: Reports: malaise, weakness HEENT: Reports: no symptoms Cardiovascular: Reports: no symptoms Respiratory: Reports: no symptoms Gastrointestinal/Abdominal: Reports: no symptoms Genitourinary: Reports: no symptoms Neurologic/Psychiatric: Reports: no symptoms Endocrine: Reports: no symptoms Hematologic/Lymphatic: Reports: no symptoms Allergies: Coded Allergies: LISINOPRIL (Verified Allergy, Unknown, Hives, 04/12/14) All Systems: reviewed and negative except above Subjective seems more alert and less confused. denies taking drugs. remains on ivf. Objective Last 24 Hour Vital Signs Date Time Temp Pulse Resp B/P (MAP) Pulse Ox O2 Delivery O2 Flow Rate FiO2 11/15/17 08:00 99.7 102 20 169/86 96 11/15/17 03:45 98.2 108 20 150/105 96 11/15/17 00:08 98.4 111 18 128/95 94 11/14/17 20:20 98.4 109 18 145/79 94 11/14/17 16:00 98.2 106 18 154/81 94 Room Air 11/14/17 15:39 160/80 Intake and Output 11/14/17 11/15/17 19:00 07:00 Intake Total 1440 ml 200 ml Balance 1440 ml 200 ml Intake Oral 540 ml IV Total 900 ml 200 ml # Voids 1 # Bowel Movements 1 Height (Feet): 5 Height (Inches): 8.00 Weight (Pounds): 170 General Appearance: WD/WN, alert Neck: supple Cardiovascular: normal rate, regular rhythm Respiratory/Chest: chest wall non-tender, lungs clear, normal breath sounds Abdomen: normal bowel sounds, non tender, soft, no organomegaly Edema: mild edema 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
[2017-11-15] MEDS ORDERED: NS 275ml ONE (16:27)
[2017-11-15] MEDS ORDERED: Flu Vaccine Quadrivalent 0.5ml IM ONE (17:30)
[2017-11-16] VITALS: BP 170/91
[2017-11-16 04:00] VITALS: BP 154/90
[2017-11-16 07:50] VITALS: BP 186/78
[2017-11-16 08:49] LABS: ALANINE AMINOTRANSFERASE 22 U/L (12-78); ALBUMIN 2.3 G/DL (3.4-5.0); ALBUMIN/GLOBULIN RATIO 0.5 (1.0-2.7); ALKALINE PHOSPHATASE 179 U/L (46-116); ANION GAP 9 mmol/L (5-15); ASPARTATE AMINO TRANSFERASE 67 U/L (15-37); BILIRUBIN,TOTAL 0.4 MG/DL (0.2-1.0); BLOOD UREA NITROGEN 11 mg/dL (7-18); CALCIUM 9.7 MG/DL (8.5-10.1); CARBON DIOXIDE 28 MMOL/L (21-32); CHLORIDE 110 MMOL/L (98-107); CREATININE 0.7 MG/DL (0.55-1.30); SODIUM 147 MMOL/L (136-145)
[2017-11-16] MEDS: Heparin 5000 units/ml inj SUBQ SCH ×2 (10:26→20:16)
[2017-11-16 12:00] VITALS: BP 163/98
--- NOTE | 2017-11-16 12:05 | General Progress Note ---
Assessment/Plan Problem List: (1) Chronic back pain ICD Codes: M54.9 - Dorsalgia, unspecified; G89.29 - Other chronic pain SNOMED: 695201558 (2) Cocaine abuse ICD Codes: F14.10 - Cocaine abuse, uncomplicated SNOMED: 08713418 (3) Acute encephalopathy ICD Codes: G93.40 - Encephalopathy, unspecified SNOMED: 0942397 Status: stable, progressing Assessment/Plan dc ivf repeat tox screen now negative for thc and cocaine director social service eval pt/ot increase bp rx Subjective ROS Limited/Unobtainable: No Constitutional: Reports: malaise, weakness HEENT: Reports: no symptoms Cardiovascular: Reports: no symptoms Respiratory: Reports: cough Gastrointestinal/Abdominal: Reports: no symptoms Genitourinary: Reports: no symptoms Neurologic/Psychiatric: Reports: pre-existing deficit Endocrine: Reports: no symptoms Hematologic/Lymphatic: Reports: no symptoms Allergies: Coded Allergies: LISINOPRIL (Verified Allergy, Unknown, Hives, 04/12/14) All Systems: reviewed and negative except above Subjective seems more alert and less confused. denies taking drugs. remains on ivf. BP high. wants to go home. still not seen by therapy yet. Objective Last 24 Hour Vital Signs Date Time Temp Pulse Resp B/P (MAP) Pulse Ox O2 Delivery O2 Flow Rate FiO2 11/16/17 10:25 90 186/78 11/16/17 10:25 90 186/78 11/16/17 07:50 97.9 90 18 186/78 95 Room Air 11/16/17 06:32 174/76 11/16/17 04:21 97.6 11/16/17 04:00 97.6 90 20 154/90 98 Room Air 11/16/17 00:50 170/91 11/16/17 00:00 97.9 95 20 170/91 97 Room Air 11/15/17 20:30 159/85 11/15/17 20:00 Room Air 11/15/17 20:00 98.1 92 20 174/88 97 11/15/17 16:00 98.2 94 20 170/95 94 Intake and Output 11/15/17 11/16/17 19:00 07:00 Intake Total 280 ml 480 ml Balance 280 ml 480 ml Intake Oral 180 ml 480 ml IV Total 100 ml # Voids 2 2 # Bowel Movements 1 Laboratory Tests 11/16/17 05:25: Sodium Level 147H, Potassium Level 4.0, Chloride Level 110H, Carbon Dioxide Level 28, Anion Gap 9, Blood Urea Nitrogen 11, Creatinine 0.7, Estimat Glomerular Filtration Rate > 60, Glucose Level 99, Calcium Level 9.7, Total Bilirubin 0.4, Aspartate Amino Transf (AST/SGOT) 67H, Alanine Aminotransferase ( ALT/SGPT) 22, Alkaline Phosphatase 179H, Troponin I 0.000, Total Protein 7.1, Albumin 2.3L, Globulin 4.8, Albumin/Globulin Ratio 0.5L Height (Feet): 5 Height (Inches): 8.00 Weight (Pounds): 170 Objective General Appearance: WD/WN, alert Neck: supple Cardiovascular: normal rate, regular rhythm Respiratory/Chest: chest wall non-tender, lungs clear, normal breath sounds Abdomen: normal bowel sounds, non tender, soft, no organomegaly Edema: mild edema 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
--- NOTE | 2017-11-16 15:06 | Wound Care Consultation ---
Wound Assessment Wound Assessment #1: Wound Number: 1 Wound Present on Admission: Yes New Wound: No Status Change of Wound: No Wound Location Body Site Modif: left, lower, anterior Wound Location Body Site: leg Wound Type: lesion-etiology unknown - with necrotic scab site #1 Grace Test: Does not Grace Wound Thickness: Full Thickness Wound Length: 1.5 Wound Width: 1.0 Wound Depth: utd Percent of Wound Black/Brown: 100 Wound Drainage Amount: None Wound Drainage Odor: None/Absent Tissue Surrounding Wound: Intact Wound General Appearance: Blackened - necrotic scab Wound Assessment #2: Wound Number: 2 Wound Present on Admission: Yes New Wound: No Status Change of Wound: No Wound Location Body Site Modif: left, lower, anterior Wound Location Body Site: leg Wound Type: lesion-etiology unknown - with dry necrotic adhered scab site #2 Grace Test: Does not Grace Wound Length: 1.0 Wound Width: 1.0 Wound Depth: utd Percent of Wound Black/Brown: 100 Wound Drainage Amount: None Wound Drainage Odor: None/Absent Tissue Surrounding Wound: Intact Wound General Appearance: Blackened - dry scab Wound Assessment #3: Wound Number: 3 Wound Present on Admission: Yes New Wound: No Status Change of Wound: No Wound Location Body Site: other - sacrococcygeal extending to left and right buttocks Wound Type: pressure ulcer Grace Test: Does not Grace Pressure Ulcer Stage: IV - noted unstageable wound bed mid sacrococcyx area ,appears deep Wound Thickness: Full Thickness Wound Length: 13.0 Wound Width: 18.0 Wound Depth: utd Percent of Wound [place]/Red: 10 Percent of Wound Bed Yellow/Wh: 40 Percent of Wound Purple/Maroon: 50 - at risk for further skin breakdown Wound Drainage Description: Serosanguineous Wound Drainage Amount: Copious Wound Drainage Odor: None/Absent Tissue Surrounding Wound: Macerated Wound General Appearance: Reddened, Draining, Necrotic Wound Assessment #4: Wound Number: 4 Wound Present on Admission: Yes New Wound: No Status Change of Wound: No Wound Location Body Site Modif: right, lateral Wound Location Body Site: heel Wound Type: pressure ulcer Grace Test: Does not Grace Pressure Ulcer Stage: Deep Tissue Injury - with serous filled blister Blisters: Blister w/ Intact Cap - surrounding tissue dti Wound Thickness: Full Thickness Wound Length: 4.0 Wound Width: 4.0 Wound Depth: utd Percent of Wound [place]/Red: 50 Percent of Wound Purple/Maroon: 50 Wound Drainage Amount: None Wound Drainage Odor: None/Absent Tissue Surrounding Wound: Intact - erythemic Wound General Appearance: Reddened Wound Assessment #5: Wound Number: 5 Wound Present on Admission: Yes New Wound: No Status Change of Wound: No Wound Location Body Site Modif: right, mid, lower, lateral Wound Location Body Site: leg Wound Type: scab - scattered scabs Grace Test: Does not Grace Wound Thickness: Partial Thickness Percent of Wound Black/Brown: 100 - dry brown Wound Drainage Amount: None Wound Drainage Odor: None/Absent Tissue Surrounding Wound: Intact Wound General Appearance: Reddened, Blackened - brown scabs Wound Assessment #6: Wound Number: 6 Wound Present on Admission: Yes New Wound: No Status Change of Wound: No Wound Location Body Site Modif: right, posterior Wound Location Body Site: shoulder Wound Type: scab Grace Test: Does not Grace Wound Length: 3.0 Wound Width: 0.5 Percent of Wound Black/Brown: 100 - wagner/brown Wound Drainage Amount: None Wound Drainage Odor: None/Absent Tissue Surrounding Wound: Intact Wound General Appearance: Open to air - bornw/wagner scab Wound Assessment #7: Wound Number: 7 Wound Present on Admission: Yes New Wound: No Status Change of Wound: No Wound Location Body Site Modif: left Wound Location Body Site: buttocks Wound Type: discoloration - scattered Grace Test: Does not Grace Percent of Wound Purple/Maroon: 100 - purple/maroon Wound Drainage Amount: None Wound Drainage Odor: None/Absent Tissue Surrounding Wound: Intact Wound General Appearance: Reddened - maroon Wound Comment #1 left lower leg lesion-etiology unknown with necrotic scab site #1 #2 left lower leg lesion-etiology unknown with necrotic scab site #2 #3 Sacrococcygeal extending to left and right buttocks stage 4 , depth unable to determine , presence of necrotic tissue, surrounding tissue deep maroon color at risk for further skin breakdown. #4 right lateral heel deep tissue injury with blister cap intact.-at risk for further skin breakdown #5 right lower, mid,lateral leg scattered scabs #6 right posterior shoulder scab #7 left buttocks scattered maroon discolorations. RECOMMENDATION. follow up with attending MD for possible consult with wound MD for debridement. -Local wound care as ordered. -Apply low air loss mattress for wound and skin management. -Optimize nutrition. -Keep clean and dry -Turn and reposition -Offload affected areas. -heel protectors. -Assess and notify MD for any further change of condition to skin noted. CORINNE MARTINES Nov 16, 2017 15:06
--- NOTE | 2017-11-16 17:37 | Consultation ---
History of Present Illness General Date patient seen: Nov 16, 2017 Time patient seen: 17:22 Chief Complaint: Generalized Weakness Referring physician: Dr. Andrew Reason for Consultation: Buttock ulcers Present Illness HPI Asked to evaluate this 67 yof who was admitted to [facility] over the weekend with altered mental status. Tox screen was found to be + for cocaine and opioids. She was noted to have b/l medial buttock ulcers upon admission. Per her history she states she has had them for approximately a month. She is ambulatory and lives at home with her boyfriend. She has a colostomy from an emergency surgery for intra-abdominal infection a year ago. She denies cigarette smoking and she denies h/o DM. Allergies: Coded Allergies: LISINOPRIL (Verified Allergy, Unknown, Hives, 04/12/14) Medication History Scheduled Amlodipine Besylate* (Amlodipine Besylate*), 10 MG ORAL DAILY, (Reported) Baclofen* (Baclofen*), 10 MG ORAL NEEDED, (Reported) Cephalexin* (Keflex*), 500 MG ORAL Q6H Cyclobenzaprine Hcl* (Flexeril*), 10 MG ORAL THREE TIMES A DAY Diclofenac Sod* (Voltaren*), 75 MG ORAL BID, (Reported) Doxazosin Mesylate* (Doxazosin Mesylate*), 4 MG ORAL DAILY, (Reported) Duloxetine Hcl* (Cymbalta*), 60 MG ORAL BID, (Reported) Gabapentin* (Gabapentin*), 300 MG ORAL BEDTIME, (Reported) Hydrochlorothiazide* (Hydrochlorothiazide*), 25 MG ORAL DAILY, (Reported) Metoprolol Tartrate* (Metoprolol Tartrate*), 100 MG ORAL EVERY 12 HOURS, ( Reported) Simvastatin (Zocor), 40 MG ORAL BEDTIME, (Reported) Trazodone* (Trazodone*), 200 MG ORAL BEDTIME, (Reported) Triamterene/Hydrochlorothiazid (Triamterene-Hctz 37.5-25 Mg Cp), 1 CAP ORAL DAILY, (Reported) Trimethoprim/Sulfamethoxazole (Bactrim Ds Tablet), 1 TAB ORAL TWICE A DAY, ( Reported) Scheduled PRN Carisoprodol* (Soma*), 350 MG PO Q6H PRN for For Pain, (Reported) Hydrocodone/Acetaminophen (Hydrocodon-Acetaminophn 10-325), 1 TAB ORAL Q6H PRN for For Pain, (Reported) Miscellaneous Medications Phenylephrine HCl/Prometh HCl (Promethazine Vc Syrup), Unknown Dose PO, ( Reported) Patient History History Provided By: Patient, Medical Record Healthcare decision maker Resuscitation status Advanced Directive on File Past Medical/Surgical History Past Medical/Surgical History: (1) Hypertension (2) Cocaine abuse Review of Systems Constitutional: Reports: no symptoms Eye: Reports: no symptoms ENT: Reports: no symptoms Respiratory: Reports: no symptoms Skin: Reports: see HPI Psychiatric: Reports: prior hx Neurological: Reports: no symptoms Endocrine: Reports: no symptoms Hematologic/Lymphatic: Reports: no symptoms Physical Exam General Appearance: no apparent distress, alert, obese Lines, tubes and drains: peripheral Respiratory/Chest: no respiratory distress Abdomen: non tender, soft Skin Exam: other - Right buttock with superficial ulcer in irregular pattern with pink granular base. Appears to have been a blister based on the periskin. Left medial buttock with area of DSTI and surrounding area with superficial epidermal loss and pink granular base. No erythema or warmth. No crepitus and no fluctuance. Musculoskeletal: normal muscle bulk Last 24 Hour Vital Signs Date Time Temp Pulse Resp B/P (MAP) Pulse Ox O2 Delivery O2 Flow Rate FiO2 11/16/17 12:00 97.8 72 18 163/98 97 Room Air 11/16/17 10:25 90 186/78 11/16/17 10:25 90 186/78 11/16/17 07:50 97.9 90 18 186/78 95 Room Air 11/16/17 06:32 174/76 11/16/17 04:21 97.6 11/16/17 04:00 97.6 90 20 154/90 98 Room Air 11/16/17 00:50 170/91 11/16/17 00:00 97.9 95 20 170/91 97 Room Air 11/15/17 20:30 159/85 11/15/17 20:00 Room Air 11/15/17 20:00 98.1 92 20 174/88 97 Intake and Output 11/15/17 11/16/17 19:00 07:00 Intake Total 280 ml 480 ml Balance 280 ml 480 ml Intake Oral 180 ml 480 ml IV Total 100 ml # Voids 2 2 # Bowel Movements 1 Laboratory Tests Test 11/16/17 05:25 Sodium Level 147 MMOL/L (136-145) H Potassium Level 4.0 MMOL/L (3.5-5.1) Chloride Level 110 MMOL/L (98-107) H Carbon Dioxide Level 28 MMOL/L (21-32) Anion Gap 9 mmol/L (5-15) Blood Urea Nitrogen 11 mg/dL (7-18) Creatinine 0.7 MG/DL (0.55-1.30) Estimat Glomerular Filtration Rate > 60 mL/min (>60) Glucose Level 99 MG/DL (74-106) Calcium Level 9.7 MG/DL (8.5-10.1) Total Bilirubin 0.4 MG/DL (0.2-1.0) Aspartate Amino Transf (AST/SGOT) 67 U/L (15-37) H Alanine Aminotransferase (ALT/SGPT) 22 U/L (12-78) Alkaline Phosphatase 179 U/L (46-116) H Troponin I 0.000 ng/mL (0.000-0.056) Total Protein 7.1 G/DL (6.4-8.2) Albumin 2.3 G/DL (3.4-5.0) L Globulin 4.8 g/dL Albumin/Globulin Ratio 0.5 (1.0-2.7) L Height (Feet): 5 Height (Inches): 8.00 Weight (Pounds): 170 Medications Current Medications Medications (Trade) Dose Ordered Sig/Debbie Route PRN Reason Start Time Stop Time Status Last Admin Dose Admin Acetaminophen (Tylenol) 650 mg Q4H PRN ORAL Mild Pain/Temp > 100.5 11/14/17 09:00 12/14/17 08:59 11/16/17 03:22 Amlodipine Besylate (Norvasc) 10 mg DAILY ORAL 11/16/17 09:00 12/16/17 08:59 11/16/17 10:25 Clonidine HCl (Catapres Tab) 0.1 mg Q4H PRN ORAL SBP>160 11/14/17 09:00 12/14/17 08:59 11/16/17 06:32 Heparin Sodium (Porcine) (Heparin 5000 units/ml) 5,000 units EVERY 12 HOURS SUBQ 11/14/17 09:00 12/14/17 08:59 11/16/17 10:26 Hydrochlorothiazide (Hydrodiuril) 25 mg DAILY ORAL 11/16/17 09:00 12/16/17 08:59 11/16/17 10:25 Lorazepam (Ativan 2mg/ml 1ml) 1 mg Q4H PRN IV For Anxiety 11/14/17 09:00 11/21/17 08:59 Metoprolol Tartrate (Lopressor) 100 mg EVERY 12 HOURS ORAL 11/16/17 10:00 12/16/17 09:59 11/16/17 10:25 Pantoprazole (Protonix) 40 mg DAILY ORAL 11/14/17 09:00 12/14/17 08:59 11/16/17 10:25 Sodium Chloride 1,000 ml @ 50 mls/hr Q20H IV 11/15/17 12:00 12/15/17 11:59 11/16/17 07:04 Vitamin A/Vitamin D (A & D Oint) 1 applic EVERY 12 HOURS TOPIC 11/16/17 21:00 12/16/17 20:59 Assessment/Plan Status: stable Assessment/Plan Patient with medial buttock ulcers. Unclear as to the etiology as she is ambulatory but denies being bedridden in the last month. Typical position for pressure ulcers but in an ambulatory patient the only explanation for her to have pressure ulcers is if she was supine or in a low seated position for a period of time. There is no clinical sign of wound infection. The area of deeper soft tissue injury on the left buttock will need to be off loaded to prevent worsening. The more superficial ulcers in the periphery should heal in the next couple-few weeks with dressing changes and offloading. Due to the location of the wounds there is a lot of moisture build up which creates too moist of an an environment. Recommend calcium alginate to the superficial epidermal loss to address the moisture level and facilitate healing covered by dry dressings. Once the patient is discharged, will arrange follow up at the outpatient wound center for continuity of care until the ulcers are healed. Thank you for allowing me to participate in this patient's care. ASHA SHUKLA Nov 16, 2017 17:37
[2017-11-16 20:00] VITALS: BP 165/96
[2017-11-16] MEDS: Vitamin A&D Oint 2oz Tube TOPIC SCH (20:13)
[2017-11-16 22:16] LABS: APPEARANCE,URINE CLEAR; BILIRUBIN, URINE NEGATIVE (NEGATIVE); COLOR,URINE PALE YELLOW; GLUCOSE, URINE (UA) NEGATIVE (NEGATIVE); KETONES,URINE NEGATIVE (NEGATIVE); LEUKOCYTE ESTERASE ,URINE 1+ (NEGATIVE); NITRITE,URINE NEGATIVE (NEGATIVE); PH,URINE 8 (4.5-8.0); PROTEIN,URINE NEGATIVE (NEGATIVE); UROBILINOGEN,URINE NORMAL MG/DL (0.0-1.0)
[2017-11-17] VITALS (7 sets, daily range): BP systolic 119–166; BP diastolic 76–101
[2017-11-17] MEDS: Vitamin A&D Oint 2oz Tube TOPIC SCH ×2 (09:25→20:33)
[2017-11-17] MEDS: Heparin 5000 units/ml inj SUBQ SCH ×2 (09:28→20:41)
[2017-11-18] VITALS: BP 143/80
[2017-11-18 04:00] VITALS: BP 140/73
[2017-11-18 08:09] VITALS: BP 155/65
[2017-11-18] MEDS: Vitamin A&D Oint 2oz Tube TOPIC SCH ×2 (09:17→22:52)
[2017-11-18] MEDS: Heparin 5000 units/ml inj SUBQ SCH ×2 (09:19→22:57)
[2017-11-18 11:41] VITALS: BP 138/68
[2017-11-18 15:45] VITALS: BP 151/75
[2017-11-18 20:00] VITALS: BP 123/61
[2017-11-19] VITALS: BP 149/74
[2017-11-19 04:00] VITALS: BP 157/88
[2017-11-19 08:00] VITALS: BP 169/80
[2017-11-19] MEDS: Vitamin A&D Oint 2oz Tube TOPIC SCH (08:21)
[2017-11-19] MEDS: Heparin 5000 units/ml inj SUBQ SCH (08:21)
--- NOTE | 2017-11-19 08:45 | General Progress Note ---
Assessment/Plan Problem List: (1) Chronic back pain ICD Codes: M54.9 - Dorsalgia, unspecified; G89.29 - Other chronic pain SNOMED: 091509030 (2) Cocaine abuse ICD Codes: F14.10 - Cocaine abuse, uncomplicated SNOMED: 79713070 (3) Acute encephalopathy ICD Codes: G93.40 - Encephalopathy, unspecified SNOMED: 7424134 Status: stable, tolerating diet Assessment/Plan dc ivf repeat tox screen now negative for thc and cocaine social science manager eval pt/ot increase bp rx as needed Subjective ROS Limited/Unobtainable: No Constitutional: Reports: malaise, weakness HEENT: Reports: no symptoms Cardiovascular: Reports: no symptoms Respiratory: Reports: cough Gastrointestinal/Abdominal: Reports: no symptoms Genitourinary: Reports: no symptoms Neurologic/Psychiatric: Reports: no symptoms Endocrine: Reports: no symptoms Hematologic/Lymphatic: Reports: no symptoms Allergies: Coded Allergies: LISINOPRIL (Verified Allergy, Unknown, Hives, 04/12/14) All Systems: reviewed and negative except above Subjective no complaints. denies pain. no sob. awaiting bed at [facility] Objective Last 24 Hour Vital Signs Date Time Temp Pulse Resp B/P (MAP) Pulse Ox O2 Delivery O2 Flow Rate FiO2 11/19/17 08:20 60 169/83 11/19/17 08:20 60 169/83 11/19/17 04:00 57 20 157/88 97 11/19/17 00:00 97.8 58 18 149/74 98 11/18/17 22:52 60 123/61 11/18/17 20:00 97.0 60 18 123/61 97 11/18/17 15:45 98.1 62 20 151/75 97 11/18/17 11:41 98.4 56 20 138/68 97 11/18/17 09:17 62 155/65 11/18/17 09:16 62 155/65 Intake and Output 11/18/17 11/19/17 19:00 07:00 Intake Total 360 ml 150 ml Balance 360 ml 150 ml Intake Oral 360 ml 150 ml # Voids 5 1 Height (Feet): 5 Height (Inches): 8.00 Weight (Pounds): 170 Objective General Appearance: WD/WN, alert Neck: supple Cardiovascular: normal rate, regular rhythm Respiratory/Chest: chest wall non-tender, lungs clear, normal breath sounds Abdomen: normal bowel sounds, non tender, soft, no organomegaly Edema: mild edema 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
[2017-11-19 12:00] VITALS: BP 156/91
[2017-11-19 16:00] VITALS: BP 160/91
--- NOTE | 2017-11-20 12:55 | Discharge Summary ---
DATE OF ADMISSION: 11/14/2017 DATE OF DISCHARGE: 11/17/2017 ADMISSION DIAGNOSES: 1. Altered mental status. 2. Toxic metabolic encephalopathy. 3. Hypertension. 4. Sacral decubitus ulcer. DISCHARGE DIAGNOSES: 1. Altered mental status. 2. Toxic metabolic encephalopathy. 3. Hypertension. 4. Sacral decubitus ulcer. HOSPITAL COURSE: The patient is a pleasant female, who was admitted with presumed drug overdose. She was monitored on the med/surg unit where she remained stable. The patient adamantly refused taking any type of illicit drugs and a repeat toxicology screen was actually negative for cocaine and marijuana. The patient was seen by Plastic Surgery for sacral wound. Wound care ordered for followup as per the Plastic Surgery instructions. On discharge, the patient was stable to be discharged to a alf facility for wound care. DISCHARGE MEDICATIONS: Please see discharge medication list for discharge medications. DIET: Cardiac diet. ACTIVITY: Ad-Pinky. FOLLOWUP: The patient will follow up in one to two days at the alf facility. Roby Andrew M.D. DR: HUEY JOB#: [id number] CC:
--- NOTE | 2017-11-20 12:55 | Discharge Summary ---
DATE OF ADMISSION: 11/14/2017 ADMISSION DIAGNOSES: 1. Toxic metabolic encephalopathy. 2. Possible drug overdose. 3. Possible urinary tract infection. 4. Hypertension. 5. Sacral stage II ulcer, present on admission. DISCHARGE DIAGNOSES: 1. Toxic metabolic encephalopathy. 2. Possible drug overdose. 3. Possible urinary tract infection. 4. Hypertension. 5. Sacral stage II ulcer, present on admission. HISTORY OF PRESENT ILLNESS: The patient is a pleasant female, admitted with overdose. She tested positive for cocaine, marijuana, and opiates. She was monitored. Mental status returned back to baseline. She did present with a sacral wound. She was seen by Plastic Surgery. The patient's hospital course was complicated by difficult to control blood pressure. Blood pressure regimen was adjusted. On discharge, she was doing well. Recommended the patient go to a longterm facility for wound care. The patient will be followed up there in one to two days. DISCHARGE MEDICATIONS: Please see discharge medication list discharge medications. DIET: Cardiac diet. ACTIVITY: Ad-Pinky. Roby Andrew M.D. DR: HUEY JOB#: [id number] CC:
--- NOTE | 2017-11-23 13:55 | Cardiology Report ---
APPROVED REPORT EKG Measurement Heart [id number] Sinus tachycardia Possible Left atrial enlargement Left ventricular hypertrophy Abnormal ECG
== END 2017-11-19 19:45 | DRG 917 ==
LOC: EDBD 01:46 → EMR 01:55 → 4W 04:05 → EDBEDREQ 04:25 → 4E 11-15 02:00 → 4W 11-15 08:44
DX: T50.901A Poisoning by unspecified drugs, medicaments and biological substances, accidental (unintentional), initial encounter (principal); G92 Toxic encephalopathy; L89.152 Pressure ulcer of sacral region, stage 2; N39.0 Urinary tract infection, site not specified; F14.10 Cocaine abuse, uncomplicated; I10 Essential (primary) hypertension; E87.6 Hypokalemia; G89.29 Other chronic pain; M54.9 Dorsalgia, unspecified; Z43.3 Encounter for attention to colostomy; Z88.8 Allergy status to other drugs, medicaments and biological substances
CPT/HCPCS: 36415; 70450; 71045; 80048; 80053; 80307; 80329; 81001; 84484; 85025; 87086; 87181; 90630; 93005; 99285; J8499

== ENCOUNTER 2020-01-21 18:57 | Inpatient (IN) | payer MEDICARE, MEDICAID ==
[~2020-01-21] VITALS: Ht 165.1 cm; Wt 98.4 kg
--- NOTE | 2020-01-21 19:00 | NUR ---
ED Nurse Note: Pt brought in by ambulance 70 from home c/o failure to thrive and body pain for 5 days. Per EMS, pt has decreased appetite, weakness for 5 days. Placed on bed, VSS, on RA, afebrile on triage. Pt is AOx3 arrived with a colostomy bag, in placed. Safety assured; will continue to monitor
[2020-01-21 19:10] VITALS: BP 108/94
--- NOTE | 2020-01-21 19:12 | Emergency Room Report ---
History of Present Illness General Chief Complaint: Generalized Weakness Source: Patient Present Illness HPI 69-year-old female history of hypertension, diabetes, polysubstance abuse, presented from home by EMS for generalized weakness. Apparently patient is unable to ambulate for the past 4 to 5 days. Patient is a very poor historian. She denies any nausea, vomiting, diarrhea or urinary complaints. She has been admitted in the past for altered mental status secondary to polysubstance abuse. As well as generalized weakness. Patient presented from home. Allergies: Coded Allergies: LISINOPRIL (Verified Allergy, Unknown, Hives, 04/12/14) COVID-19 Screening Contact w/high risk pt: No Recent Travel to affected area: No Experienced COVID-19 symptoms?: No Patient History Reviewed Nursing Documentation: PMH: Agreed; PSxH: Agreed Nursing Documentation-PMH Hx Cardiac Problems: Yes Hx Hypertension: Yes Hx Pacemaker: No - CHRONIC NECK PAIN Hx Diabetes: Yes Hx Cancer: No Hx Gastrointestinal Problems: Yes Hx Neurological Problems: No Review of Systems All Other Systems: negative except mentioned in HPI Physical Exam Vital Signs Date Time Temp Pulse Resp B/P (MAP) Pulse Ox O2 Delivery O2 Flow Rate FiO2 01/21/20 18:53 98.2 100 20 108/94 (99) 97 Room Air Sp02 EP Interpretation: reviewed, normal General Appearance: well appearing, no apparent distress Head: normocephalic, atraumatic Eyes: bilateral eye PERRL, bilateral eye EOMI ENT: hearing grossly normal, moist mucus membranes Neck: full range of motion, supple Respiratory: lungs clear, normal breath sounds, no rhonchi, no respiratory distress, no retraction, no wheezing Cardiovascular #1: normal peripheral pulses, regular rate, rhythm, no murmur Gastrointestinal: non tender, soft, non-distended, no guarding, other - Colostomy present with stool output Musculoskeletal: other - Trace bilateral lower extremity edema noted Neurologic: alert, oriented x3, no focal defects Skin: normal color, warm/dry Medical Decision Making Diagnostic Impression: Primary Impression: Episode of generalized weakness Additional Impressions: Hypokalemia Failure to thrive ER Course Differential included but not limited to deconditioning, dehydration, failure to thrive, generalized weakness, polysubstance abuse to name a few. On my exam patient had no focal neurologic deficits. IV fluids given. Laboratory studies demonstrated hypokalemia with a potassium of 2.6. EKG had no QRS widening noted. No arrhythmia noted. Due to patient's generalized weakness poor p.o. intake suspect failure to thrive in addition to hypokalemia will admit to the telemetry unit. I spoke with patient's primary care doctor who accepted the patient for admission. Laboratory Tests Test 01/21/20 19:10 01/21/20 19:45 White Blood Count 6.3 K/UL (4.8-10.8) Red Blood Count 4.30 M/UL (4.20-5.40) Hemoglobin 9.9 G/DL (12.0-16.0) L Hematocrit 32.4 % (37.0-47.0) L Mean Corpuscular Volume 75 FL (80-99) L Mean Corpuscular Hemoglobin 23.0 PG (27.0-31.0) L Mean Corpuscular Hemoglobin Concent 30.5 G/DL (32.0-36.0) L Red Cell Distribution Width 16.5 % (11.6-14.8) H Platelet Count 262 K/UL (150-450) Mean Platelet Volume 8.8 FL (6.5-10.1) Neutrophils (%) (Auto) 77.6 % (45.0-75.0) H Lymphocytes (%) (Auto) 10.1 % (20.0-45.0) L Monocytes (%) (Auto) 10.5 % (1.0-10.0) H Eosinophils (%) (Auto) 1.0 % (0.0-3.0) Basophils (%) (Auto) 0.8 % (0.0-2.0) Sodium Level 145 MMOL/L (136-145) Potassium Level 2.6 MMOL/L (3.5-5.1) *L Chloride Level 105 MMOL/L (98-107) Carbon Dioxide Level 28 MMOL/L (21-32) Anion Gap 12 mmol/L (5-15) Blood Urea Nitrogen 45 mg/dL (7-18) H Creatinine 1.1 MG/DL (0.55-1.30) Estimated Glomerular Filtration Rate > 60 mL/min (>60) Glucose Level 105 MG/DL (74-106) Lactic Acid Level 1.30 mmol/L (0.4-2.0) Calcium Level 10.2 MG/DL (8.5-10.1) H Magnesium Level 1.7 MG/DL (1.8-2.4) L Total Bilirubin 0.4 MG/DL (0.2-1.0) Aspartate Amino Transferase (AST) 34 U/L (15-37) Alanine Aminotransferase (ALT) 12 U/L (12-78) Alkaline Phosphatase 101 U/L (46-116) Total Creatine Kinase 540 U/L (26-308) H Creatine Kinase MB 3.6 NG/ML (0.0-3.6) Creatine Kinase MB Relative Index 0.6 Troponin I 0.005 ng/mL (0.000-0.056) Total Protein 8.0 G/DL (6.4-8.2) Albumin 2.8 G/DL (3.4-5.0) L Globulin 5.2 g/dL Albumin/Globulin Ratio 0.5 (1.0-2.7) L Urine Color Pale yellow Urine Appearance Clear Urine pH 6 (4.5-8.0) Urine Specific [place] 1.010 (1.005-1.035) Urine Protein 1+ (NEGATIVE) H Urine Glucose (UA) Negative (NEGATIVE) Urine Ketones 1+ (NEGATIVE) H Urine Blood Negative (NEGATIVE) Urine Nitrite Negative (NEGATIVE) Urine Bilirubin Negative (NEGATIVE) Urine Urobilinogen Normal MG/DL (0.0-1.0) Urine Leukocyte Esterase 1+ (NEGATIVE) H Urine RBC 0-2 /HPF (0 - 2) Urine WBC 2-4 /HPF (0 - 2) Urine Squamous Epithelial Cells Few /LPF (NONE/OCC) Urine Bacteria Few /HPF (NONE) Urine Opiates Screen Positive (NEGATIVE) H Urine Barbiturates Screen Negative (NEGATIVE) Phencyclidine (PCP) Screen Negative (NEGATIVE) Urine Amphetamines Screen Negative (NEGATIVE) Urine Benzodiazepines Screen Positive (NEGATIVE) H Urine Cocaine Screen Negative (NEGATIVE) Urine Marijuana (THC) Screen Negative (NEGATIVE) EKG Diagnostic Results Rhythm: NSR ST Segments: no acute changes Other Impression Sinus tachycardia CT/MRI/US Diagnostic Results CT/MRI/US Diagnostic Results : Imaging Test Ordered: CT scan of the brain Impression IMPRESSION: 1. No acute intracranial abnormality. 2. Mild chronic senescent findings above. Last Vital Signs Date Time Temp Pulse Resp B/P (MAP) Pulse Ox O2 Delivery O2 Flow Rate FiO2 4/4/20 18:53 98.2 100 20 108/94 (99) 97 Room Air Disposition: ADMITTED INPATIENT Condition: Serious Krystian Lao M.D. Jan 21, 2020 19:12
--- NOTE | 2020-01-21 19:20 | NUR ---
ED Nurse Note: All blood work drawn and sent to lab. prepress technician at bedside performing EKG.
--- NOTE | 2020-01-21 19:25 | NUR ---
ED Nurse Note: xray at bedside
--- NOTE | 2020-01-21 19:27 | NUR ---
ED Nurse Note: pt BIBA from home CO body aches and sudden inability to move. HR elevated, ERMD aware. pt aao x 4, bed bound. ERMD at bedside. Pt denies fever or cough.
--- NOTE | 2020-01-21 19:30 | NUR ---
ED Nurse Note: pt has 3 pressure ulcers on left and right buttocks and lower portion of coccyx; pt is aware of the wounds and states they are over a month old. Addendum: 01/21/20 at 2103 by DOLORES ED Nurse Note: pt has 3 pressure ulcers on left and right buttocks and lower portion of coccyx; pt is aware of the wounds and states they are over a month old. Pictures taken and uploaded.
--- NOTE | 2020-01-21 19:41 | Diagnostic Imaging Report ---
EXAM: XR Chest, 1 View CLINICAL HISTORY: SOB TECHNIQUE: Frontal view of the chest. COMPARISON: 11/14/2017 FINDINGS: Lungs: Unremarkable. No consolidation. Pleural space: Unremarkable. No pneumothorax. Heart: Unremarkable. No cardiomegaly. Mediastinum: Unremarkable. Bones/joints: Unremarkable. IMPRESSION: 1. No acute cardiopulmonary disease. 2. If there is continued concern recommend frontal and lateral chest radiographs or CT.
[2020-01-21 19:49] LABS: BASOPHILS % (AUTO) 0.8 % (0.0-2.0); HEMATOCRIT 32.4 % (37.0-47.0); HEMOGLOBIN 9.9 G/DL (12.0-16.0); LYMPHOCYTES % (AUTO) 10.1 % (20.0-45.0); MEAN CORPUSCULAR VOLUME 75 FL (80-99); MONOCYTES % (AUTO) 10.5 % (1.0-10.0); NEUTROPHILS % (AUTO) 77.6 % (45.0-75.0); PLATELET COUNT 262 K/UL (150-450); RED CELL DISTRIBUTION WIDTH 16.5 % (11.6-14.8); WHITE BLOOD COUNT 6.3 K/UL (4.8-10.8)
--- NOTE | 2020-01-21 20:15 | NUR ---
ED Nurse Note: Ua sent to lab with library cataloging technician. Pt requested pain medication; ermd aware
[2020-01-21 20:19] LABS: ALANINE AMINOTRANSFERASE 12 U/L (12-78); ALBUMIN 2.8 G/DL (3.4-5.0); ALBUMIN/GLOBULIN RATIO 0.5 (1.0-2.7); ALKALINE PHOSPHATASE 101 U/L (46-116); ANION GAP 12 mmol/L (5-15); ASPARTATE AMINO TRANSFERASE 34 U/L (15-37); BILIRUBIN,TOTAL 0.4 MG/DL (0.2-1.0); BLOOD UREA NITROGEN 45 mg/dL (7-18); CALCIUM 10.2 MG/DL (8.5-10.1); CARBON DIOXIDE 28 MMOL/L (21-32); CHLORIDE 105 MMOL/L (98-107); CKMB 3.6 NG/ML (0.0-3.6); CREATINE KINASE 540 U/L (26-308); CREATININE 1.1 MG/DL (0.55-1.30); SODIUM 145 MMOL/L (136-145)
[2020-01-21 20:21] LABS: POTASSIUM 2.6 MMOL/L (3.5-5.1)
--- NOTE | 2020-01-21 20:22 | Consultation ---
History of Present Illness General Chief Complaint: Generalized Weakness Present Illness HPI This is a 69 year old female with past medical history of HTN, HLD, s/p colostomy (hx of complicated diverticulitis) presenting with generalized weakness and fatigue. Patient states that over the last couple of weeks she has been experiencing worsening weakness and lethargy in addition to poor apatite. Patient reports of sleeping throughout the day because of extreme fatigue. She complains of generalized body pain and muscle cramps. Patient denies any nausea, vomiting, diarrhea, fever, chills, abdominal pain, cough, shortness of breath, sick contacts or recent travel. She does not report of any change in her colostomy output. On arrival to the ED, patient's vitals were within the normal limit .Patient's lab values were significant for K:2.6, M.7 and albumin low at 2.8. The CK was elevated at 540. Patient is being admitted for furher observation and medical management. Head CT: IMPRESSION: 1. No acute intracranial abnormality. 2. Mild chronic senescent findings above. Allergies: Coded Allergies: LISINOPRIL (Verified Allergy, Unknown, Hives, 04/12/14) Medication History Scheduled Amlodipine Besylate* (Amlodipine Besylate*), 10 MG ORAL DAILY, (Reported) Baclofen* (Baclofen*), 10 MG ORAL NEEDED, (Reported) Doxazosin Mesylate* (Doxazosin Mesylate*), 4 MG ORAL DAILY, (Reported) Duloxetine Hcl* (Cymbalta*), 60 MG ORAL BID, (Reported) Gabapentin* (Gabapentin*), 300 MG ORAL BEDTIME, (Reported) Metoprolol Tartrate* (Metoprolol Tartrate*), 100 MG ORAL EVERY 12 HOURS, ( Reported) Simvastatin (Zocor), 40 MG ORAL BEDTIME, (Reported) Trazodone* (Trazodone*), 200 MG ORAL BEDTIME, (Reported) Scheduled PRN Hydrocodone/Acetaminophen (Hydrocodon-Acetaminophn 10-325), 1 TAB ORAL Q6H PRN for For Pain, (Reported) Discontinued Medications Cephalexin* (Keflex*), 500 MG ORAL Q6H Discontinued Reason: MD discontinued med Hydrochlorothiazide* (Hydrochlorothiazide*), 25 MG ORAL DAILY, (Reported) Discontinued Reason: MD discontinued med Triamterene/Hydrochlorothiazid (Triamterene-Hctz 37.5-25 Mg Cp), 1 CAP ORAL DAILY, (Reported) Discontinued Reason: discontinued med Patient History Healthcare decision maker Resuscitation status Advanced Directive on File Review of Systems All Other Systems: negative except mentioned in HPI Physical Exam Last 24 Hour Vital Signs Date Time Temp Pulse Resp B/P (MAP) Pulse Ox O2 Delivery O2 Flow Rate FiO2 01/21/20 19:10 98.2 100 20 108/94 97 Room Air 01/21/20 19:10 100 20 Room Air 01/21/20 18:53 98.2 100 20 108/94 (99) 97 Room Air Laboratory Tests Test 01/21/20 19:10 White Blood Count 6.3 K/UL (4.8-10.8) Red Blood Count 4.30 M/UL (4.20-5.40) Hemoglobin 9.9 G/DL (12.0-16.0) L Hematocrit 32.4 % (37.0-47.0) L Mean Corpuscular Volume 75 FL (80-99) L Mean Corpuscular Hemoglobin 23.0 PG (27.0-31.0) L Mean Corpuscular Hemoglobin Concent 30.5 G/DL (32.0-36.0) L Red Cell Distribution Width 16.5 % (11.6-14.8) H Platelet Count 262 K/UL (150-450) Mean Platelet Volume 8.8 FL (6.5-10.1) Neutrophils (%) (Auto) 77.6 % (45.0-75.0) H Lymphocytes (%) (Auto) 10.1 % (20.0-45.0) L Monocytes (%) (Auto) 10.5 % (1.0-10.0) H Eosinophils (%) (Auto) 1.0 % (0.0-3.0) Basophils (%) (Auto) 0.8 % (0.0-2.0) Sodium Level 145 MMOL/L (136-145) Potassium Level 2.6 MMOL/L (3.5-5.1) *L Chloride Level 105 MMOL/L (98-107) Carbon Dioxide Level 28 MMOL/L (21-32) Anion Gap 12 mmol/L (5-15) Blood Urea Nitrogen 45 mg/dL (7-18) H Creatinine 1.1 MG/DL (0.55-1.30) Estimat Glomerular Filtration Rate > 60 mL/min (>60) Glucose Level 105 MG/DL (74-106) Lactic Acid Level Pending Calcium Level 10.2 MG/DL (8.5-10.1) H Magnesium Level 1.7 MG/DL (1.8-2.4) L Total Bilirubin 0.4 MG/DL (0.2-1.0) Aspartate Amino Transf (AST/SGOT) 34 U/L (15-37) Alanine Aminotransferase (ALT/SGPT) 12 U/L (12-78) Alkaline Phosphatase 101 U/L (46-116) Total Creatine Kinase 540 U/L (26-308) H Creatine Kinase MB 3.6 NG/ML (0.0-3.6) Creatine Kinase MB Relative Index 0.6 Troponin I 0.005 ng/mL (0.000-0.056) Total Protein 8.0 G/DL (6.4-8.2) Albumin 2.8 G/DL (3.4-5.0) L Globulin 5.2 g/dL Albumin/Globulin Ratio 0.5 (1.0-2.7) L Height (Feet): 5 Height (Inches): 6.00 Weight (Pounds): 220 Objective Narrative General Appearance: alert, no distress HEENT: normocephalic, atraumatic, anicteric, PERRL Neck: non-tender, normal alignment, normal inspection Respiratory/Chest: chest wall non-tender, lungs clear, normal breath sounds, no accessory muscle use, respiratory distress Cardiovascular/Chest: normal peripheral pulses, normal rate, regular rhythm, regularly irregular Abdomen: normal bowel sounds, other - colostomy bag in place Extremities: normal inspection, no calf tenderness, other - Generalized tenderness in the muscles of UE and LE Skin Exam: normal pigmentation Neurologic: no motor/sensory deficits, alert, oriented x 3 Assessment/Plan Diagnosis [place]: #severe hyperkalemia- in the setting of decreased PO intake and thiazide use #Hypomagnesemia #Anemia #Generalized weakness, failure to thrive #HTN #HLD # s/p colostomy (hx of complicated diverticulitis) - admit inpatient - IVF- d51/2NS + 20 meq at 75cc/hr - replete K - check phos - monitor BMP - hold HCTZ - resume home Amlodipine 10mg daily and Metoprolol 100mg BID -Hydralazine PRN for SBP >160 - Continue to monitor - replete mag - monitor hemoglobin - check iron panel - PT/OT - dispo planning to SNF-> [facility] Venkat Vick M.D. Jan 21, 2020 20:22
[2020-01-21 20:29] LABS: APPEARANCE,URINE CLEAR; BILIRUBIN, URINE NEGATIVE (NEGATIVE); COLOR,URINE PALE YELLOW; GLUCOSE, URINE (UA) NEGATIVE (NEGATIVE); KETONES,URINE 1+ (NEGATIVE); LEUKOCYTE ESTERASE ,URINE 1+ (NEGATIVE); NITRITE,URINE NEGATIVE (NEGATIVE); PH,URINE 6 (4.5-8.0); PROTEIN,URINE 1+ (NEGATIVE); UROBILINOGEN,URINE NORMAL MG/DL (0.0-1.0)
[2020-01-21] MEDS ORDERED: Potassium Chl 10mEq/100ml 110 ML IV ONE (20:30)
--- NOTE | 2020-01-21 20:58 | NUR ---
ED Nurse Note: IV and PO mediations administered and running. Pt tolerating well. no ss of distress noted. no adverse reactions noted.
--- NOTE | 2020-01-21 21:07 | NUR ---
ED Nurse Note: pt taken to CT in stable condition, vss no ss of distress noted.
--- NOTE | 2020-01-21 21:25 | NUR ---
ED Nurse Note: PT RETURNED FROM CT IN STABLE CONDITION, VSS NO SS OF DISTRESS NOTED.
[2020-01-21 21:30] VITALS: BP 148/68
--- NOTE | 2020-01-21 21:31 | Diagnostic Imaging Report ---
EXAM: CT Head Without Intravenous Contrast CLINICAL HISTORY: AMS TECHNIQUE: Axial computed tomography images of the head/brain without intravenous contrast. CTDI is 54 mGy and DLP is 1099 mGy-cm. One or more of the following dose reduction techniques were used: automated exposure control, adjustment of the mA and/or kV according to patient size, use of iterative reconstruction technique. COMPARISON: 11/14/2017 FINDINGS: Brain: Parenchymal volume loss. Nonspecific white matter hypoattenuation likely secondary to chronic microvascular ischemia. Cerebrovascular ASVD. No hemorrhage. Ventricles: Unremarkable. No ventriculomegaly. Bones/joints: Unremarkable. No acute fracture. Soft tissues: Unremarkable. Sinuses: Unremarkable as visualized. No acute sinusitis. Mastoid air cells: Unremarkable as visualized. No mastoid effusion. IMPRESSION: 1. No acute intracranial abnormality. 2. Mild chronic senescent findings above.
--- NOTE | 2020-01-21 22:17 | NUR ---
ED Nurse Note: PT COLOSTOMY BAG PLACED INCORRECTLY PRIOR TO ED VISIT. COLOSTOMY BAG REPLACED AND ADJUSTED. PT TOLERATED WELL. NO SS OF DISTRESS NOTED.
[2020-01-21 23:12] VITALS: BP 145/73
[2020-01-22 01:33] VITALS: BP 141/68
--- NOTE | 2020-01-22 01:56 | NUR ---
ED Nurse Note: Report given to JOSSELYN Valentine.
[2020-01-22 01:59] LABS: ANION GAP 9 mmol/L (5-15); BLOOD UREA NITROGEN 39 mg/dL (7-18); CALCIUM 9.2 MG/DL (8.5-10.1); CARBON DIOXIDE 28 MMOL/L (21-32); CHLORIDE 109 MMOL/L (98-107); SODIUM 146 MMOL/L (136-145)
[2020-01-22 02:01] LABS: POTASSIUM 2.7 MMOL/L (3.5-5.1)
--- NOTE | 2020-01-22 02:15 | NUR ---
ER DISCHARGE NOTE: Patient is cleared to be discharged to MS unit per ERMD, pt is aox3, on room air, with stable vital signs. pt was able to verbalize understanding. pt is bedbound. pt took all belongings. Report given to JOSSELYN Valentine. Pt transferred to MS unit with 2 RNs via liz
--- NOTE | 2020-01-22 02:30 | NUR ---
NURSE NOTES: Received patient per liz with iv line on the left ac. colostomy on the left lower quadrant, and weiss catheter draining well. complaints of generalized weakness. skin assessment done with pressure injury on the sacrum. called dr. reid. awaiting for call back. after 15 minutes, received a call back from dr. graham with an order of potassium cl 40 meq IV and potassium cl 40 meq PO bid x 1 day due to potassium level of 2.7. per to continue other home meds. reiterated to call or ask for assistance. call light and light button within easy reach. bed locked and in lowest position. will continue plan of care.
[2020-01-22] MEDS ORDERED: Sodium Chloride for KCL Premix X 4hrs IV SCH (03:30)
--- NOTE | 2020-01-22 05:28 | History and Physical ---
History of Present Illness General Date patient seen: Jan 22, 2020 Time patient seen: 03:00 Reason for Hospitalization: Generalized WeaknessHypokalemiaFailure to thrive Present Illness HPI Mrs. Hilaria Carrasco is a 69 YO F with HTN, HLD, s/p colostomy (hx of complicated diverticulitis) presenting with generalized weakness and fatigue. Patient states that over the last couple of weeks she has been experiencing worsening weakness and lethargy in addition to poor apatite. Patient reports of sleeping throughout the day because of extreme fatigue. She complains of generalized body pain and muscle cramps. Patient denies any nausea, vomiting, diarrhea, fever, chills, abdominal pain, cough, shortness of breath, sick contacts or recent travel. She does not report of any change in her colostomy output. On arrival to the ED, patient's vitals were within the normal limit .Patient's lab values were significant for K:2.6, M.7 and albumin low at 2.8. The CK was elevated at 540. Patient is being admitted for furher observation and medical management. Allergies: Coded Allergies: LISINOPRIL (Verified Allergy, Unknown, Hives, 04/12/14) COVID-19 Screening Contact w/high risk pt: No Recent Travel to affected area: No Experienced COVID-19 symptoms?: No Medication History Scheduled Amlodipine Besylate* (Amlodipine Besylate*), 10 MG ORAL DAILY, (Reported) Baclofen* (Baclofen*), 10 MG ORAL NEEDED, (Reported) Doxazosin Mesylate* (Doxazosin Mesylate*), 4 MG ORAL DAILY, (Reported) Duloxetine Hcl* (Cymbalta*), 60 MG ORAL BID, (Reported) Gabapentin* (Gabapentin*), 300 MG ORAL BEDTIME, (Reported) Metoprolol Tartrate* (Metoprolol Tartrate*), 100 MG ORAL EVERY 12 HOURS, ( Reported) Simvastatin (Zocor), 40 MG ORAL BEDTIME, (Reported) Trazodone* (Trazodone*), 200 MG ORAL BEDTIME, (Reported) Scheduled PRN Hydrocodone/Acetaminophen (Hydrocodon-Acetaminophn 10-325), 1 TAB ORAL Q6H PRN for For Pain, (Reported) Discontinued Medications Cephalexin* (Keflex*), 500 MG ORAL Q6H Discontinued Reason: MD discontinued med Hydrochlorothiazide* (Hydrochlorothiazide*), 25 MG ORAL DAILY, (Reported) Discontinued Reason: discontinued med Triamterene/Hydrochlorothiazid (Triamterene-Hctz 37.5-25 Mg Cp), 1 CAP ORAL DAILY, (Reported) Discontinued Reason: discontinued med Patient History Healthcare decision maker Resuscitation status Full Code Advanced Directive on File Review of Systems Constitutional: Reports: other - generalized wekaness and fatigue Musculoskeletal: Reports: no symptoms, see HPI, back pain, gout, joint pain, joint swelling, muscle pain, muscle stiffness, other - Diffuse muscle and joint pain Physical Exam General Appearance: alert, lethargic, mild distress HEENT: normocephalic, atraumatic, anicteric, PERRL Neck: non-tender, normal alignment, normal inspection Respiratory/Chest: chest wall non-tender, lungs clear, normal breath sounds, no accessory muscle use, respiratory distress Cardiovascular/Chest: normal peripheral pulses, normal rate, regular rhythm, regularly irregular Abdomen: normal bowel sounds, other - colostomy bag in place Extremities: normal inspection, no calf tenderness, other - Generalized tenderness in the muscles of UE and LE Skin Exam: normal pigmentation Neurologic: no motor/sensory deficits, alert, oriented x 3 Last 24 Hour Vital Signs Date Time Temp Pulse Resp B/P (MAP) Pulse Ox O2 Delivery O2 Flow Rate FiO2 01/22/20 04:21 Room Air 01/22/20 02:15 98.2 98 20 141/68 97 Room Air 01/22/20 01:33 98.2 98 20 141/68 97 Room Air 01/21/20 23:12 98.2 98 20 145/73 97 Room Air 01/21/20 21:30 98.2 98 20 148/68 97 Room Air 01/21/20 21:11 98.2 01/21/20 19:10 98.2 100 20 108/94 97 Room Air 01/21/20 19:10 100 20 Room Air 01/21/20 18:53 98.2 100 20 108/94 (99) 97 Room Air Intake and Output 01/21/20 01/22/20 19:00 07:00 Intake Total 2540 ml Output Total 900 ml Balance 1640 ml Intake Oral 240 ml IV Total 2300 ml Output Urine Total 900 ml Laboratory Tests Test 01/21/20 19:10 01/21/20 19:45 01/22/20 01:20 White Blood Count 6.3 K/UL (4.8-10.8) Red Blood Count 4.30 M/UL (4.20-5.40) Hemoglobin 9.9 G/DL (12.0-16.0) L Hematocrit 32.4 % (37.0-47.0) L Mean Corpuscular Volume 75 FL (80-99) L Mean Corpuscular Hemoglobin 23.0 PG (27.0-31.0) L Mean Corpuscular Hemoglobin Concent 30.5 G/DL (32.0-36.0) L Red Cell Distribution Width 16.5 % (11.6-14.8) H Platelet Count 262 K/UL (150-450) Mean Platelet Volume 8.8 FL (6.5-10.1) Neutrophils (%) (Auto) 77.6 % (45.0-75.0) H Lymphocytes (%) (Auto) 10.1 % (20.0-45.0) L Monocytes (%) (Auto) 10.5 % (1.0-10.0) H Eosinophils (%) (Auto) 1.0 % (0.0-3.0) Basophils (%) (Auto) 0.8 % (0.0-2.0) Sodium Level 145 MMOL/L (136-145) 146 MMOL/L (136-145) H Potassium Level 2.6 MMOL/L (3.5-5.1) *L 2.7 MMOL/L (3.5-5.1) *L Chloride Level 105 MMOL/L (98-107) 109 MMOL/L (98-107) H Carbon Dioxide Level 28 MMOL/L (21-32) 28 MMOL/L (21-32) Anion Gap 12 mmol/L (5-15) 9 mmol/L (5-15) Blood Urea Nitrogen 45 mg/dL (7-18) H 39 mg/dL (7-18) H Creatinine 1.1 MG/DL (0.55-1.30) 1.0 MG/DL (0.55-1.30) Estimat Glomerular Filtration Rate > 60 mL/min (>60) > 60 mL/min (>60) Glucose Level 105 MG/DL (74-106) 104 MG/DL (74-106) Lactic Acid Level 1.30 mmol/L (0.4-2.0) Calcium Level 10.2 MG/DL (8.5-10.1) H 9.2 MG/DL (8.5-10.1) Magnesium Level 1.7 MG/DL (1.8-2.4) L Total Bilirubin 0.4 MG/DL (0.2-1.0) Aspartate Amino Transf (AST/SGOT) 34 U/L (15-37) Alanine Aminotransferase (ALT/SGPT) 12 U/L (12-78) Alkaline Phosphatase 101 U/L (46-116) Total Creatine Kinase 540 U/L (26-308) H Creatine Kinase MB 3.6 NG/ML (0.0-3.6) Creatine Kinase MB Relative Index 0.6 Troponin I 0.005 ng/mL (0.000-0.056) Total Protein 8.0 G/DL (6.4-8.2) Albumin 2.8 G/DL (3.4-5.0) L Globulin 5.2 g/dL Albumin/Globulin Ratio 0.5 (1.0-2.7) L Urine Color Pale yellow Urine Appearance Clear Urine pH 6 (4.5-8.0) Urine Specific [place] 1.010 (1.005-1.035) Urine Protein 1+ (NEGATIVE) H Urine Glucose (UA) Negative (NEGATIVE) Urine Ketones 1+ (NEGATIVE) H Urine Blood Negative (NEGATIVE) Urine Nitrite Negative (NEGATIVE) Urine Bilirubin Negative (NEGATIVE) Urine Urobilinogen Normal MG/DL (0.0-1.0) Urine Leukocyte Esterase 1+ (NEGATIVE) H Urine RBC 0-2 /HPF (0 - 2) Urine WBC 2-4 /HPF (0 - 2) Urine Squamous Epithelial Cells Few /LPF (NONE/OCC) Urine Bacteria Few /HPF (NONE) Urine Opiates Screen Positive (NEGATIVE) H Urine Barbiturates Screen Negative (NEGATIVE) Phencyclidine (PCP) Screen Negative (NEGATIVE) Urine Amphetamines Screen Negative (NEGATIVE) Urine Benzodiazepines Screen Positive (NEGATIVE) H Urine Cocaine Screen Negative (NEGATIVE) Urine Marijuana (THC) Screen Negative (NEGATIVE) Height (Feet): 5 Height (Inches): 5.00 Weight (Pounds): 217 Medications Current Medications Medications (Trade) Dose Ordered Sig/Debbie Route PRN Reason Start Time Stop Time Status Last Admin Dose Admin Acetaminophen/ Hydrocodone Bitart ([place] 10/325) 1 tab Q6H PRN ORAL For Pain 01/22/20 04:00 01/29/20 03:59 Amlodipine Besylate (Norvasc) 10 mg DAILY ORAL 01/22/20 09:00 02/21/20 08:59 Atorvastatin Calcium (Lipitor) 40 mg BEDTIME ORAL 01/22/20 21:00 04/21/20 20:59 Baclofen (Lioresal) 10 mg NEEDED ORAL 01/22/20 04:00 02/21/20 03:59 UNV Doxazosin Mesylate (Cardura) 4 mg DAILY ORAL 01/22/20 09:00 02/21/20 08:59 Duloxetine HCl (Cymbalta) 60 mg BID ORAL 01/22/20 09:00 04/21/20 08:59 Gabapentin (Neurontin) 300 mg BEDTIME ORAL 01/22/20 21:00 02/21/20 20:59 Heparin Sodium (Porcine) (Heparin 5000 units/ml) 5,000 units EVERY 12 HOURS SUBQ 01/22/20 09:00 03/07/20 08:59 Metoprolol Tartrate (Lopressor) 100 mg EVERY 12 HOURS ORAL 01/22/20 09:00 04/21/20 08:59 Potassium Chloride 10 meq/ Sodium Chloride 1,005 ml @ 75 mls/hr [id number] ONCE IV 01/22/20 04:00 01/22/20 17:23 UNV Potassium Chloride 100 ml @ 100 mls/hr Q1H IVPB 01/22/20 03:30 01/22/20 07:29 01/22/20 03:28 Potassium Chloride (K-Dur) 40 meq TWICE A DAY ORAL 01/22/20 09:00 01/22/20 23:59 Sodium Chloride 400 ml @ 100 mls/hr Q4H IV 01/22/20 03:30 01/22/20 07:29 01/22/20 03:33 Trazodone HCl (Desyrel) 200 mg BEDTIME ORAL 01/22/20 21:00 02/21/20 20:59 Assessment/Plan Assessment/Plan: Mrs. Carrasco is a 69YO F with HTN, HLD, chronic pain, s/p colostomy (hx of complicated diverticulitis s/p colectomy) presenting with worsening poor apatite and generalized weakness. Inpatient medical work up is signicant for hypokalemia (K:2.6) and elevation of the CK:540. She is being admitted for further observation and medical management. #Generalized weakness #Failure to thrive #Hypoalbuminemia #Poor PO intake -Admit to inpatient. -IVF hydration. -PT/OT-Encourage mobilization -Nutrition consult. -Monitor electrolytes. -Neuro consult in the A.M. #Hypokalemia 2/2 to poor PO intake -Serum K: 2.6 on admission. -IV Potassium 40mg Once; KCl tab 40 mg PO BID x 1 day -Continue to monitor and replenish PRN. -Dr. Venkat Montes on board. Appreciate further input. #Hypomagnesemia: -Serum M.7 on admission -2g IV Mg. -Continue to monitor. #Elevated serum Creatinine Kinase: -In the setting of immobility and poor PO intake -IVF hydration #Chronic microcytic anemia: -Serum Hgb: 9.9; MCV: 75 -No signs of acute bleeding. -Continue to monitor. #Decubitus Ulcer (III): -No signs of cellulitis -wound care consult appreciated. #Essential HTN: -Resume home Amlodipine and Metoprolol -Home HCTZ held given electrolyte abnormalities. -Continue to monitor. #HLD: -Resume home Simvastatin. #Chronic pain: -Resume home Duloxetine, gabapentin and [place]. -PT/OT F: IV N.S @ 75cc/hr for 12 hours E: Monitor and replete PRN N: Cardiac Diet. DVT PPX: SubQ heparin I spent 55 minutes on this patient's case, and >50% was dedicated to counseling and/or care coordination. I spent an additional 17 min on chart review including prior consult notes, progress notes, procedures, imaging, labs hemodynamics and clinical documentation. Time of note may not reflect time of encounter. Augustin Tabares M.D. Jan 22, 2020 05:28
--- NOTE | 2020-01-22 07:36 | NUR ---
HAND-OFF: Report given to maddy euceda.
[2020-01-22 08:00] VITALS: BP 161/91
[2020-01-22 09:01] LABS: BASOPHILS % (AUTO) 0.4 % (0.0-2.0); EOSINOPHILS % (AUTO) 1.8 % (0.0-3.0); HEMATOCRIT 27.7 % (37.0-47.0); HEMOGLOBIN 8.6 G/DL (12.0-16.0); LYMPHOCYTES % (AUTO) 15.8 % (20.0-45.0); MEAN CORPUSCULAR VOLUME 74 FL (80-99); MONOCYTES % (AUTO) 12.5 % (1.0-10.0); NEUTROPHILS % (AUTO) 69.5 % (45.0-75.0); PLATELET COUNT 227 K/UL (150-450); RED BLOOD COUNT 3.75 M/UL (4.20-5.40); RED CELL DISTRIBUTION WIDTH 14.5 % (11.6-14.8); WHITE BLOOD COUNT 5.9 K/UL (4.8-10.8)
[2020-01-22] MEDS: DULoxetine 30mg cap ORAL SCH ×2 (09:20→19:01)
[2020-01-22] MEDS: HYDROcodone/Acetamin 10/325 tab ORAL PRN ×2 (09:21→19:16)
[2020-01-22 09:28] LABS: ALBUMIN 2.3 G/DL (3.4-5.0); ALBUMIN/GLOBULIN RATIO 0.5 (1.0-2.7); ALKALINE PHOSPHATASE 90 U/L (46-116); ANION GAP 10 mmol/L (5-15); ASPARTATE AMINO TRANSFERASE 36 U/L (15-37); BILIRUBIN,TOTAL 0.3 MG/DL (0.2-1.0); BLOOD UREA NITROGEN 31 mg/dL (7-18); CALCIUM 9.1 MG/DL (8.5-10.1); CARBON DIOXIDE 25 MMOL/L (21-32); CHLORIDE 111 MMOL/L (98-107); CREATININE 0.8 MG/DL (0.55-1.30); POTASSIUM 3.3 MMOL/L (3.5-5.1); SODIUM 146 MMOL/L (136-145)
[2020-01-22] MEDS: Heparin 5000 units/ml inj SUBQ SCH ×2 (09:35→20:16)
[2020-01-22] MEDS: Doxazosin 4mg tab ORAL SCH (09:36)
[2020-01-22] MEDS: Metoprolol Tartrate 100mg tab ORAL SCH ×2 (09:36→20:23)
--- NOTE | 2020-01-22 10:00 | NUR ---
NURSE NOTES: PT AXOX3, FORGETFUL AT TIMES. PT STATES PAIN 10/10 GENERALIZED. RN ADMINISTERED PRN [place] 10/325 ORDERED. IN NO APPARENT DISTRESS AT THIS TIME. PT INSTRUCTED ON FALL/SAFETY PRECAUTIONS AND NOT TO AMBULATE INDEPENDENTLY. PT VERBALIZED UNDERSTANDING. RN EDUCATED PT HOW TO USE CALL LIGHT. BED IN LOWEST POSITION WITH BEDSIDE RAILS X3 RAISE.D BED ALARM ON. WILL CONTINUE TO MONITOR.
[2020-01-22 10:20] LABS: ALANINE AMINOTRANSFERASE 6 U/L (12-78)
[2020-01-22 10:23] LABS: BILIRUBIN,DIRECT < 0.1 MG/DL (0.0-0.3)
--- NOTE | 2020-01-22 10:25 | General Progress Note ---
Assessment/Plan Assessment/Plan: Mrs. Carrasco is a 69YO F with HTN, HLD, chronic pain, s/p colostomy (hx of complicated diverticulitis s/p colectomy) presenting with worsening poor appetite and generalized weakness. Inpatient medical work up is significant for hypokalemia (K:2.6) and elevation of the CK:540. She is being admitted for further observation and medical management. #Generalized weakness #Failure to thrive #Hypoalbuminemia #Poor PO intake -Cont. inpatient medical management -IVF hydration. -PT/OT -Encourage mobilization -Nutrition consulted -Monitor electrolytes. -Neuro consulted, recs appreciated -CM for d/c planning #Hypokalemia 2/2 to poor PO intake -Serum K: 2.6 on admission, improved to 3.3 -s/p IV Potassium 40mg Once; KCl tab 40 mg PO BID x 1 day -Continue to monitor and replenish PRN. -Dr. Venkat Montes following. Appreciate further input. #Hypomagnesemia: -Serum M.7 on admission, s/p 2g IV Mg. -Continue to monitor, replace PRN #Elevated serum Creatinine Kinase: -In the setting of immobility and poor PO intake -IVF hydration #Chronic microcytic anemia: -Serum Hgb: 9.9; MCV: 75 -No signs of acute bleeding. -Continue to monitor. #Decubitus Ulcer (III): -No signs of cellulitis -wound care consult appreciated. #Essential HTN: -Cont. home Amlodipine and Metoprolol -Home HCTZ held given electrolyte abnormalities. -Hydralazine PRN for SBP >160 -Continue to monitor. #HLD: -Resume home Simvastatin. #Chronic pain: -Resume home Duloxetine, gabapentin and [place]. -PT/OT F: IV N.S @ 75cc/hr for 12 hours E: Monitor and replete PRN N: Cardiac Diet. DVT PPX: SubQ heparin I spent 35 minutes on this patient's case, and >50% was dedicated to counseling and/or care coordination. I spent an additional 25 min on chart review including prior consult notes, progress notes, procedures, imaging, labs hemodynamics and clinical documentation. Time of note may not reflect time of encounter. Subjective Constitutional: Reports: malaise HEENT: Denies: no symptoms, eye pain, blurred vision, tearing, double vision, ear pain, ear discharge, nose pain, nose congestion, throat pain, throat swelling, mouth pain, mouth swelling, other Cardiovascular: Denies: no symptoms, chest pain, edema, irregular heart rate, lightheadedness, palpitations, syncope, other Respiratory: Denies: no symptoms, cough, orthopnea, shortness of breath, SOB with excertion, SOB at rest, sputum, stridor, wheezing, other Gastrointestinal/Abdominal: Denies: no symptoms, abdomen distended, abdominal pain, black stools, tarry stools, blood in stool, constipated, diarrhea, difficulty swallowing, nausea, poor appetite, poor fluid intake, rectal bleeding , vomiting, other Genitourinary: Denies: no symptoms, burning, discharge, frequency, flank pain, hematuria, incontinence, pain, urgency, other Allergies: Coded Allergies: LISINOPRIL (Verified Allergy, Unknown, Hives, 04/12/14) Subjective Follow-up for generalized weakness. No acute events overnight, patient states she continues to feel generalized weakness, states it has been going on for about 2 weeks, patient notes decreased appetite. Denies any F/C, cough, CP, S OB, abdominal pain, dysuria. Objective Last 24 Hour Vital Signs Date Time Temp Pulse Resp B/P (MAP) Pulse Ox O2 Delivery O2 Flow Rate FiO2 01/22/20 09:36 99 167/91 01/22/20 09:36 99 167/91 01/22/20 08:00 97.3 96 16 161/91 (114) 96 01/22/20 04:21 Room Air 01/22/20 02:15 98.2 98 20 141/68 97 Room Air 01/22/20 01:33 98.2 98 20 141/68 97 Room Air 01/21/20 23:12 98.2 98 20 145/73 97 Room Air 01/21/20 21:30 98.2 98 20 148/68 97 Room Air 01/21/20 21:11 98.2 01/21/20 19:10 98.2 100 20 108/94 97 Room Air 01/21/20 19:10 100 20 Room Air 01/21/20 18:53 98.2 100 20 108/94 (99) 97 Room Air Intake and Output 01/21/20 01/22/20 19:00 07:00 Intake Total 2740 ml Output Total 1350 ml Balance 1390 ml Intake Oral 440 ml IV Total 2300 ml Output Urine Total 1350 ml Laboratory Tests 01/21/20 19:10: White Blood Count 6.3, Red Blood Count 4.30, Hemoglobin 9.9L, Hematocrit 32.4L, Mean Corpuscular Volume 75L, Mean Corpuscular Hemoglobin 23.0L, Mean Corpuscular Hemoglobin Concent 30.5L, Red Cell Distribution Width 16.5H, Platelet Count 262, Mean Platelet Volume 8.8, Neutrophils (%) (Auto) 77.6H, Lymphocytes (%) (Auto) 10.1L, Monocytes (%) (Auto) 10.5H, Eosinophils (%) (Auto ) 1.0, Basophils (%) (Auto) 0.8, Sodium Level 145, Potassium Level 2.6*L, Chloride Level 105, Carbon Dioxide Level 28, Anion Gap 12, Blood Urea Nitrogen 45H, Creatinine 1.1, Estimat Glomerular Filtration Rate > 60, Glucose Level 105 , Lactic Acid Level 1.30, Calcium Level 10.2H, Magnesium Level 1.7L, Total Bilirubin 0.4, Aspartate Amino Transf (AST/SGOT) 34, Alanine Aminotransferase ( ALT/SGPT) 12, Alkaline Phosphatase 101, Total Creatine Kinase 540H, Creatine Kinase MB 3.6, Creatine Kinase MB Relative Index 0.6, Troponin I 0.005, Total Protein 8.0, Albumin 2.8L, Globulin 5.2, Albumin/Globulin Ratio 0.5L 01/21/20 19:45: Urine Color Pale yellow, Urine Appearance Clear, Urine pH 6, Urine Specific [place] 1.010, Urine Protein 1+H, Urine Glucose (UA) Negative, Urine Ketones 1+H , Urine Blood Negative, Urine Nitrite Negative, Urine Bilirubin Negative, Urine Urobilinogen Normal, Urine Leukocyte Esterase 1+H, Urine RBC 0-2, Urine WBC 2-4 , Urine Squamous Epithelial Cells Few, Urine Bacteria Few, Urine Opiates Screen PositiveH, Urine Barbiturates Screen Negative, Phencyclidine (PCP) Screen Negative, Urine Amphetamines Screen Negative, Urine Benzodiazepines Screen PositiveH, Urine Cocaine Screen Negative, Urine Marijuana (THC) Screen Negative 01/22/20 01:20: Sodium Level 146H, Potassium Level 2.7*L, Chloride Level 109H, Carbon Dioxide Level 28, Anion Gap 9, Blood Urea Nitrogen 39H, Creatinine 1.0, Estimat Glomerular Filtration Rate > 60, Glucose Level 104, Calcium Level 9.2 01/22/20 08:13: White Blood Count 5.9, Red Blood Count 3.75L, Hemoglobin 8.6L, Hematocrit 27.7L , Mean Corpuscular Volume 74L, Mean Corpuscular Hemoglobin 23.0L, Mean Corpuscular Hemoglobin Concent 31.2L, Red Cell Distribution Width 14.5, Platelet Count 227, Mean Platelet Volume 6.8, Neutrophils (%) (Auto) 69.5, Lymphocytes (%) (Auto) 15.8L, Monocytes (%) (Auto) 12.5H, Eosinophils (%) (Auto ) 1.8, Basophils (%) (Auto) 0.4, Sodium Level 146H, Potassium Level 3.3L, Chloride Level 111H, Carbon Dioxide Level 25, Anion Gap 10, Blood Urea Nitrogen 31H, Creatinine 0.8, Estimat Glomerular Filtration Rate > 60, Glucose Level 91, Calcium Level 9.1, Total Bilirubin 0.3, Aspartate Amino Transf (AST/SGOT) 36, Alanine Aminotransferase (ALT/SGPT) 6L, Alkaline Phosphatase 90, Total Protein 6.8, Albumin 2.3L, Globulin 4.5, Albumin/Globulin Ratio 0.5L, Direct Bilirubin < 0.1 Height (Feet): 5 Height (Inches): 5.00 Weight (Pounds): 217 Objective General: NAD, A&O x 3, slow mentation otherwise awake, alert HEENT: NCAT, EOMi, dry MMM CV: RRR, no murmurs, rubs, or gallops Pulm: CTAB, No wheezes, rhonchi, or rales, no accessory muscle usage or conversational dyspnea GI: Soft, nontender, nondistended, bowel sounds present, colostomy present with brown stool, C/D/I Neuro: CN 2-12 grossly intact bilaterally, no focal signs. Ext: No lower extremity edema bilaterally Skin: no rashes lesions or ulcers Msk: Joints symmetrical in upper extremity and lower extremity bilaterally, no joint swelling. Delphine Cochran M.D. Jan 22, 2020 10:25
[2020-01-22] MEDS ORDERED: HydrALAZINE 25mg tab ORAL PRN (10:30)
[2020-01-22 12:00] VITALS: BP 134/50
--- NOTE | 2020-01-22 12:08 | Nephrology Progress Note ---
Assessment/Plan Plan #severe hyperkalemia- in the setting of decreased PO intake and thiazide use #Hypomagnesemia #Anemia #Generalized weakness, failure to thrive #HTN #HLD # s/p colostomy (hx of complicated diverticulitis) - IVF- d51/2NS + 20 meq at 75cc/hr - replete K - check phos - monitor BMP - hold HCTZ - resume home Amlodipine 10mg daily and Metoprolol 100mg BID - continue Hydralazine PRN for SBP >160 - Continue to monitor - replete mag - monitor hemoglobin - check iron panel - PT/OT - dispo planning to SNF-> [facility] Subjective ROS Limited/Unobtainable: No Constitutional: Denies: no symptoms, chills, diaphoresis, fever, malaise, weakness, other HEENT: Denies: no symptoms, eye pain, blurred vision, tearing, double vision, ear pain, ear discharge, nose pain, nose congestion, throat pain, throat swelling, mouth pain, mouth swelling, other Genitourinary: Denies: no symptoms, burning, discharge, frequency, flank pain, hematuria, incontinence, pain, urgency, other Subjective feeling better today less weak no nausea or emesis pending PT K 3.3 today getting repleted Objective Objective Last 24 Hour Vital Signs Date Time Temp Pulse Resp B/P (MAP) Pulse Ox O2 Delivery O2 Flow Rate FiO2 01/22/20 09:36 99 167/91 01/22/20 09:36 99 167/91 01/22/20 08:00 97.3 96 16 161/91 (114) 96 01/22/20 04:21 Room Air 01/22/20 02:15 98.2 98 20 141/68 97 Room Air 01/22/20 01:33 98.2 98 20 141/68 97 Room Air 01/21/20 23:12 98.2 98 20 145/73 97 Room Air 01/21/20 21:30 98.2 98 20 148/68 97 Room Air 01/21/20 21:11 98.2 01/21/20 19:10 98.2 100 20 108/94 97 Room Air 01/21/20 19:10 100 20 Room Air 01/21/20 18:53 98.2 100 20 108/94 (99) 97 Room Air Intake and Output 01/21/20 01/22/20 19:00 07:00 Intake Total 2740 ml Output Total 1350 ml Balance 1390 ml Intake Oral 440 ml IV Total 2300 ml Output Urine Total 1350 ml Laboratory Tests 01/21/20 19:10: White Blood Count 6.3, Red Blood Count 4.30, Hemoglobin 9.9L, Hematocrit 32.4L, Mean Corpuscular Volume 75L, Mean Corpuscular Hemoglobin 23.0L, Mean Corpuscular Hemoglobin Concent 30.5L, Red Cell Distribution Width 16.5H, Platelet Count 262, Mean Platelet Volume 8.8, Neutrophils (%) (Auto) 77.6H, Lymphocytes (%) (Auto) 10.1L, Monocytes (%) (Auto) 10.5H, Eosinophils (%) (Auto ) 1.0, Basophils (%) (Auto) 0.8, Sodium Level 145, Potassium Level 2.6*L, Chloride Level 105, Carbon Dioxide Level 28, Anion Gap 12, Blood Urea Nitrogen 45H, Creatinine 1.1, Estimat Glomerular Filtration Rate > 60, Glucose Level 105 , Lactic Acid Level 1.30, Calcium Level 10.2H, Magnesium Level 1.7L, Total Bilirubin 0.4, Aspartate Amino Transf (AST/SGOT) 34, Alanine Aminotransferase ( ALT/SGPT) 12, Alkaline Phosphatase 101, Total Creatine Kinase 540H, Creatine Kinase MB 3.6, Creatine Kinase MB Relative Index 0.6, Troponin I 0.005, Total Protein 8.0, Albumin 2.8L, Globulin 5.2, Albumin/Globulin Ratio 0.5L 01/21/20 19:45: Urine Color Pale yellow, Urine Appearance Clear, Urine pH 6, Urine Specific [place] 1.010, Urine Protein 1+H, Urine Glucose (UA) Negative, Urine Ketones 1+H , Urine Blood Negative, Urine Nitrite Negative, Urine Bilirubin Negative, Urine Urobilinogen Normal, Urine Leukocyte Esterase 1+H, Urine RBC 0-2, Urine WBC 2-4 , Urine Squamous Epithelial Cells Few, Urine Bacteria Few, Urine Opiates Screen PositiveH, Urine Barbiturates Screen Negative, Phencyclidine (PCP) Screen Negative, Urine Amphetamines Screen Negative, Urine Benzodiazepines Screen PositiveH, Urine Cocaine Screen Negative, Urine Marijuana (THC) Screen Negative 01/22/20 01:20: Sodium Level 146H, Potassium Level 2.7*L, Chloride Level 109H, Carbon Dioxide Level 28, Anion Gap 9, Blood Urea Nitrogen 39H, Creatinine 1.0, Estimat Glomerular Filtration Rate > 60, Glucose Level 104, Calcium Level 9.2 01/22/20 08:13: White Blood Count 5.9, Red Blood Count 3.75L, Hemoglobin 8.6L, Hematocrit 27.7L , Mean Corpuscular Volume 74L, Mean Corpuscular Hemoglobin 23.0L, Mean Corpuscular Hemoglobin Concent 31.2L, Red Cell Distribution Width 14.5, Platelet Count 227, Mean Platelet Volume 6.8, Neutrophils (%) (Auto) 69.5, Lymphocytes (%) (Auto) 15.8L, Monocytes (%) (Auto) 12.5H, Eosinophils (%) (Auto ) 1.8, Basophils (%) (Auto) 0.4, Sodium Level 146H, Potassium Level 3.3L, Chloride Level 111H, Carbon Dioxide Level 25, Anion Gap 10, Blood Urea Nitrogen 31H, Creatinine 0.8, Estimat Glomerular Filtration Rate > 60, Glucose Level 91, Calcium Level 9.1, Magnesium Level 1.9, Total Bilirubin 0.3, Aspartate Amino Transf (AST/SGOT) 36, Alanine Aminotransferase (ALT/SGPT) 6L, Alkaline Phosphatase 90, Total Protein 6.8, Albumin 2.3L, Globulin 4.5, Albumin/Globulin Ratio 0.5L, Direct Bilirubin < 0.1 Height (Feet): 5 Height (Inches): 5.00 Weight (Pounds): 217 General Appearance: WD/WN, no apparent distress EENT: PERRL/EOMI, normal ENT inspection Neck: non-tender, normal alignment Cardiovascular: normal peripheral pulses, normal rate, regular rhythm Respiratory/Chest: chest wall non-tender Abdomen: normal bowel sounds, non tender Neurologic: alert, oriented x 3 Venkat Montes M.D. Jan 22, 2020 12:07
[2020-01-22] MEDS: D5 1/2NS w/KCl 20mEq 1,000 ML IV SCH (13:56)
--- NOTE | 2020-01-22 15:00 | NUR ---
NURSE NOTES: Received report from [facility],patient alert,respirations unlabored,IV fluids infusing as ordered.Desai catheter is in place and draining clear yellow urine.colostomy bag in place with formed soft brown stool noted.No complaints at this time.Bed alarm is on,call light within reach.
--- NOTE | 2020-01-22 15:00 | NUR ---
HAND-OFF: Report given to Tamiko GOYAL RN.
[2020-01-22 16:00] VITALS: BP 121/67
--- NOTE | 2020-01-22 16:58 | NUR ---
PT note PT ronald completed, treatment initiated. Patient c/o pain in both knees, specially on weight bearing and has muscle weakness all over, requiring extensive assist x 2 persons in mobility and is unable to stand. Patient needs PT to increase her muscle strength and balance and decrease pain to improve her functional mobility and gait. Addendum: 01/22/20 at 1659 by FENG BLEVINS PT Amended: Links added.
--- NOTE | 2020-01-22 17:09 | Consultation ---
History of Present Illness General Date patient seen: Jan 22, 2020 Time patient seen: 17:03 Chief Complaint: Generalized Weakness Present Illness HPI Mrs. Carrasco is a 69 F with HTN, HLD, chronic pain, s/p colostomy (hx of complicated diverticulitis s/p colectomy) presenting with worsening poor appetite and generalized weakness. Inpatient medical work up is significant for hypokalemia (K:2.6) and elevation of the CK:540. Patient states that over the last couple of weeks she has been experiencing worsening weakness and lethargy in addition to poor apatite. Allergies: Coded Allergies: LISINOPRIL (Verified Allergy, Unknown, Hives, 04/12/14) Medication History Scheduled Amlodipine Besylate* (Amlodipine Besylate*), 10 MG ORAL DAILY, (Reported) Baclofen* (Baclofen*), 10 MG ORAL NEEDED, (Reported) Doxazosin Mesylate* (Doxazosin Mesylate*), 4 MG ORAL DAILY, (Reported) Duloxetine Hcl* (Cymbalta*), 60 MG ORAL BID, (Reported) Gabapentin* (Gabapentin*), 300 MG ORAL BEDTIME, (Reported) Metoprolol Tartrate* (Metoprolol Tartrate*), 100 MG ORAL EVERY 12 HOURS, ( Reported) Simvastatin (Zocor), 40 MG ORAL BEDTIME, (Reported) Trazodone* (Trazodone*), 200 MG ORAL BEDTIME, (Reported) Scheduled PRN Hydrocodone/Acetaminophen (Hydrocodon-Acetaminophn 10-325), 1 TAB ORAL Q6H PRN for For Pain, (Reported) Discontinued Medications Cephalexin* (Keflex*), 500 MG ORAL Q6H Discontinued Reason: MD discontinued med Hydrochlorothiazide* (Hydrochlorothiazide*), 25 MG ORAL DAILY, (Reported) Discontinued Reason: MD discontinued med Triamterene/Hydrochlorothiazid (Triamterene-Hctz 37.5-25 Mg Cp), 1 CAP ORAL DAILY, (Reported) Discontinued Reason: MD discontinued med Patient History Healthcare decision maker Resuscitation status Full Code Advanced Directive on File Review of Systems Constitutional: Reports: malaise, weakness Eye: Reports: no symptoms ENT: Reports: no symptoms Respiratory: Reports: no symptoms Cardiovascular: Reports: no symptoms Gastrointestinal: Reports: no symptoms Genitourinary: Reports: no symptoms Musculoskeletal: Reports: no symptoms Skin: Reports: no symptoms Psychiatric: Reports: no symptoms Neurological: Reports: no symptoms Endocrine: Reports: no symptoms Hematologic/Lymphatic: Reports: no symptoms Physical Exam General Appearance: lethargic, cachetic Lines, tubes and drains: peripheral HEENT: normocephalic, atraumatic Neck: non-tender, normal alignment, supple, normal inspection Respiratory/Chest: chest wall non-tender, lungs clear Cardiovascular/Chest: normal peripheral pulses, normal rate, regular rhythm Abdomen: normal bowel sounds, non tender, soft, no organomegaly Extremities: normal range of motion, non-tender, normal inspection, no calf tenderness Skin Exam: normal pigmentation, warm/dry, cyanotic 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, no motor/sensory deficits Last 24 Hour Vital Signs Date Time Temp Pulse Resp B/P (MAP) Pulse Ox O2 Delivery O2 Flow Rate FiO2 01/22/20 12:00 98.2 67 18 134/50 (78) 95 01/22/20 09:36 99 167/91 01/22/20 09:36 99 167/91 01/22/20 09:00 Room Air 01/22/20 08:00 97.3 96 16 161/91 (114) 96 01/22/20 04:21 Room Air 01/22/20 02:15 98.2 98 20 141/68 97 Room Air 01/22/20 01:33 98.2 98 20 141/68 97 Room Air 01/21/20 23:12 98.2 98 20 145/73 97 Room Air 01/21/20 21:30 98.2 98 20 148/68 97 Room Air 01/21/20 21:11 98.2 01/21/20 19:10 98.2 100 20 108/94 97 Room Air 01/21/20 19:10 100 20 Room Air 01/21/20 18:53 98.2 100 20 108/94 (99) 97 Room Air Intake and Output 01/21/20 01/22/20 19:00 07:00 Intake Total 2740 ml Output Total 1350 ml Balance 1390 ml Intake Oral 440 ml IV Total 2300 ml Output Urine Total 1350 ml Laboratory Tests Test 01/21/20 19:10 01/21/20 19:45 01/22/20 01:20 01/22/20 08:13 White Blood Count 6.3 K/UL (4.8-10.8) 5.9 K/UL (4.8-10.8) Red Blood Count 4.30 M/UL (4.20-5.40) 3.75 M/UL (4.20-5.40) L Hemoglobin 9.9 G/DL (12.0-16.0) L 8.6 G/DL (12.0-16.0) L Hematocrit 32.4 % (37.0-47.0) L 27.7 % (37.0-47.0) L Mean Corpuscular Volume 75 FL (80-99) L 74 FL (80-99) L Mean Corpuscular Hemoglobin 23.0 PG (27.0-31.0) L 23.0 PG (27.0-31.0) L Mean Corpuscular Hemoglobin Concent 30.5 G/DL (32.0-36.0) L 31.2 G/DL (32.0-36.0) L Red Cell Distribution Width 16.5 % (11.6-14.8) H 14.5 % (11.6-14.8) Platelet Count 262 K/UL (150-450) 227 K/UL (150-450) Mean Platelet Volume 8.8 FL (6.5-10.1) 6.8 FL (6.5-10.1) Neutrophils (%) (Auto) 77.6 % (45.0-75.0) H 69.5 % (45.0-75.0) Lymphocytes (%) (Auto) 10.1 % (20.0-45.0) L 15.8 % (20.0-45.0) L Monocytes (%) (Auto) 10.5 % (1.0-10.0) H 12.5 % (1.0-10.0) H Eosinophils (%) (Auto) 1.0 % (0.0-3.0) 1.8 % (0.0-3.0) Basophils (%) (Auto) 0.8 % (0.0-2.0) 0.4 % (0.0-2.0) Sodium Level 145 MMOL/L (136-145) 146 MMOL/L (136-145) H 146 MMOL/L (136-145) H Potassium Level 2.6 MMOL/L (3.5-5.1) *L 2.7 MMOL/L (3.5-5.1) *L 3.3 MMOL/L (3.5-5.1) L Chloride Level 105 MMOL/L (98-107) 109 MMOL/L (98-107) H 111 MMOL/L (98-107) H Carbon Dioxide Level 28 MMOL/L (21-32) 28 MMOL/L (21-32) 25 MMOL/L (21-32) Anion Gap 12 mmol/L (5-15) 9 mmol/L (5-15) 10 mmol/L (5-15) Blood Urea Nitrogen 45 mg/dL (7-18) H 39 mg/dL (7-18) H 31 mg/dL (7-18) H Creatinine 1.1 MG/DL (0.55-1.30) 1.0 MG/DL (0.55-1.30) 0.8 MG/DL (0.55-1.30) Estimat Glomerular Filtration Rate > 60 mL/min (>60) > 60 mL/min (>60) > 60 mL/min (>60) Glucose Level 105 MG/DL (74-106) 104 MG/DL (74-106) 91 MG/DL (74-106) Lactic Acid Level 1.30 mmol/L (0.4-2.0) Calcium Level 10.2 MG/DL (8.5-10.1) H 9.2 MG/DL (8.5-10.1) 9.1 MG/DL (8.5-10.1) Magnesium Level 1.7 MG/DL (1.8-2.4) L 1.9 MG/DL (1.8-2.4) Total Bilirubin 0.4 MG/DL (0.2-1.0) 0.3 MG/DL (0.2-1.0) Aspartate Amino Transf (AST/SGOT) 34 U/L (15-37) 36 U/L (15-37) Alanine Aminotransferase (ALT/SGPT) 12 U/L (12-78) 6 U/L (12-78) L Alkaline Phosphatase 101 U/L (46-116) 90 U/L (46-116) Total Creatine Kinase 540 U/L (26-308) H Creatine Kinase MB 3.6 NG/ML (0.0-3.6) Creatine Kinase MB Relative Index 0.6 Troponin I 0.005 ng/mL (0.000-0.056) Total Protein 8.0 G/DL (6.4-8.2) 6.8 G/DL (6.4-8.2) Albumin 2.8 G/DL (3.4-5.0) L 2.3 G/DL (3.4-5.0) L Globulin 5.2 g/dL 4.5 g/dL Albumin/Globulin Ratio 0.5 (1.0-2.7) L 0.5 (1.0-2.7) L Urine Color Pale yellow Urine Appearance Clear Urine pH 6 (4.5-8.0) Urine Specific [place] 1.010 (1.005-1.035) Urine Protein 1+ (NEGATIVE) H Urine Glucose (UA) Negative (NEGATIVE) Urine Ketones 1+ (NEGATIVE) H Urine Blood Negative (NEGATIVE) Urine Nitrite Negative (NEGATIVE) Urine Bilirubin Negative (NEGATIVE) Urine Urobilinogen Normal MG/DL (0.0-1.0) Urine Leukocyte Esterase 1+ (NEGATIVE) H Urine RBC 0-2 /HPF (0 - 2) Urine WBC 2-4 /HPF (0 - 2) Urine Squamous Epithelial Cells Few /LPF (NONE/OCC) Urine Bacteria Few /HPF (NONE) Urine Opiates Screen Positive (NEGATIVE) H Urine Barbiturates Screen Negative (NEGATIVE) Phencyclidine (PCP) Screen Negative (NEGATIVE) Urine Amphetamines Screen Negative (NEGATIVE) Urine Benzodiazepines Screen Positive (NEGATIVE) H Urine Cocaine Screen Negative (NEGATIVE) Urine Marijuana (THC) Screen Negative (NEGATIVE) Direct Bilirubin < 0.1 MG/DL (0.0-0.3) Height (Feet): 5 Height (Inches): 5.00 Weight (Pounds): 217 Medications Current Medications Medications (Trade) Dose Ordered Sig/Debbie Route PRN Reason Start Time Stop Time Status Last Admin Dose Admin Acetaminophen/ Hydrocodone Bitart ([place] 10/325) 1 tab Q6H PRN ORAL For Pain 01/22/20 04:00 01/29/20 03:59 01/22/20 09:21 Amlodipine Besylate (Norvasc) 10 mg DAILY ORAL 01/22/20 09:00 02/21/20 08:59 01/22/20 09:36 Atorvastatin Calcium (Lipitor) 40 mg BEDTIME ORAL 01/22/20 21:00 04/21/20 20:59 Baclofen (Lioresal) 10 mg DAILYPRN PRN ORAL muscle pain 01/22/20 04:00 02/21/20 03:59 Dextrose/ Electrolytes 1,000 ml @ 75 mls/hr [id number] IV 01/22/20 13:00 02/21/20 12:59 01/22/20 13:56 Doxazosin Mesylate (Cardura) 4 mg DAILY ORAL 01/22/20 09:00 02/21/20 08:59 01/22/20 09:36 Duloxetine HCl (Cymbalta) 60 mg BID ORAL 01/22/20 09:00 04/21/20 08:59 01/22/20 09:20 Gabapentin (Neurontin) 300 mg BEDTIME ORAL 01/22/20 21:00 02/21/20 20:59 Heparin Sodium (Porcine) (Heparin 5000 units/ml) 5,000 units EVERY 12 HOURS SUBQ 01/22/20 09:00 03/07/20 08:59 01/22/20 09:35 Hydralazine HCl (Apresoline) 25 mg Q6H PRN ORAL For High Blood Pressure 01/22/20 10:30 04/21/20 10:29 Hydralazine HCl (Apresoline) 25 mg Q6HR ORAL 01/22/20 18:00 04/21/20 17:59 Metoprolol Tartrate (Lopressor) 100 mg EVERY 12 HOURS ORAL 01/22/20 09:00 04/21/20 08:59 01/22/20 09:36 Potassium Chloride (K-Dur) 40 meq TWICE A DAY ORAL 01/22/20 09:00 01/22/20 23:59 01/22/20 09:20 Trazodone HCl (Desyrel) 200 mg BEDTIME ORAL 01/22/20 21:00 02/21/20 20:59 Assessment/Plan Status: stable Assessment/Plan: ASSESSMENT: -Weakness/Failure to thrive -Low albumin -Poor PO intake -Hypokalemia -Ectopy/PVCs -Low magnesium -VENTURA -Anemia -Hypertension -HLD -chronic pain PLAN: -IV fluid hydration -Replete electrolytes -Multivitamin -Continue metoprolol -Continue amlodipine -Hold HCTZ in setting of VENTURA -Continue simvastatin -Outpatient stress test -No indication for cardiac cath Rafat Crooks MD Jan 22, 2020 17:09
--- NOTE | 2020-01-22 18:38 | Consultation ---
History of Present Illness General Date patient seen: Jan 22, 2020 Reason for Hospitalization: Generalized Weakness Present Illness HPI 69F very pleasant presented feeling weak, ill, and with discomfort generalized. states had colostomy a few years ago for perforated viscus and since has been having bulge. ostomy output okay. no n/v/f/c. admitted for care and management. surgery called to evaluate. patient seen, chart reviewed, patient examined. Allergies: Coded Allergies: LISINOPRIL (Verified Allergy, Unknown, Hives, 04/12/14) COVID-19 Screening Contact w/high risk pt: No Recent Travel to affected area: No Experienced COVID-19 symptoms?: No Medication History Scheduled Amlodipine Besylate* (Amlodipine Besylate*), 10 MG ORAL DAILY, (Reported) Baclofen* (Baclofen*), 10 MG ORAL NEEDED, (Reported) Doxazosin Mesylate* (Doxazosin Mesylate*), 4 MG ORAL DAILY, (Reported) Duloxetine Hcl* (Cymbalta*), 60 MG ORAL BID, (Reported) Gabapentin* (Gabapentin*), 300 MG ORAL BEDTIME, (Reported) Metoprolol Tartrate* (Metoprolol Tartrate*), 100 MG ORAL EVERY 12 HOURS, ( Reported) Simvastatin (Zocor), 40 MG ORAL BEDTIME, (Reported) Trazodone* (Trazodone*), 200 MG ORAL BEDTIME, (Reported) Scheduled PRN Hydrocodone/Acetaminophen (Hydrocodon-Acetaminophn 10-325), 1 TAB ORAL Q6H PRN for For Pain, (Reported) Discontinued Medications Cephalexin* (Keflex*), 500 MG ORAL Q6H Discontinued Reason: MD discontinued med Hydrochlorothiazide* (Hydrochlorothiazide*), 25 MG ORAL DAILY, (Reported) Discontinued Reason: MD discontinued med Triamterene/Hydrochlorothiazid (Triamterene-Hctz 37.5-25 Mg Cp), 1 CAP ORAL DAILY, (Reported) Discontinued Reason: MD discontinued med Patient History History Provided By: Patient, Medical Record, PMD Healthcare decision maker Resuscitation status Full Code Advanced Directive on File Past Medical/Surgical History Past Medical/Surgical History: (1) Sciatica neuralgia (2) Abscess (3) Fistula (4) Forgetfulness (5) Cellulitis of left leg (6) Chronic pain of both knees (7) Atrial flutter (8) Uncontrolled seizures (9) Hypertension (10) Overdose of opiate or related narcotic (11) Chronic back pain (12) Acute encephalopathy (13) Pericolonic abscess due to diverticulitis (14) Hypokalemia (15) Failure to thrive (16) Episode of generalized weakness Review of Systems Review of Symptoms General ROS: no weight loss or fever Psychological ROS: no depression or mood changes, no memory loss Ophthalmic ROS: no visual changes or eye irritation ENT ROS: no nasal congestion, hearing loss, dizziness Allergy and Immunology ROS: no allergic symptoms or urticaria Hematological and Lymphatic ROS: no swollen glands, unusual bleeding or bruising Endocrine ROS: no polyuria, polydipsia, weight changes, temperature intolerance Respiratory ROS: no cough, shortness of breath, or wheezing Cardiovascular ROS: no chest pain or dyspnea on exertion Gastrointestinal ROS: denies abdominal pain, bright red blood in stool. Musculoskeletal ROS: no myalgias or arthralgias Neurological ROS: no TIA or stroke symptoms Dermatological ROS: no new or changing skin lesions, rashes or pruritis Physical Exam Physical Exam General appearance: alert, cooperative, no distress, appears stated age Head: Normocephalic, without obvious abnormality, atraumatic Eyes: conjunctivae/corneas clear. PERRL, EOM's intact. Fundi benign Throat: Lips, mucosa, and tongue normal. Teeth and gums normal Neck: supple, symmetrical, trachea midline, no adenopathy, thyroid: not enlarged, symmetric, no tenderness/mass/nodules, no carotid bruit and no JVD Lungs: clear to auscultation bilaterally Heart: regular rate and rhythm, S1, S2 normal, no murmur, click, rub or gallop Abdomen: soft, non-tender. Bowel sounds normal. No masses, no organomegaly; llq ostomy with parastomal hernia. midline ventral umbilical incisional hernia Extremities: extremities normal, atraumatic, no cyanosis or edema Pulses: 2+ and symmetric Skin: Skin color, texture, turgor normal. No rashes or lesions Neurologic: Grossly normal Last 24 Hour Vital Signs Date Time Temp Pulse Resp B/P (MAP) Pulse Ox O2 Delivery O2 Flow Rate FiO2 01/22/20 12:00 98.2 67 18 134/50 (78) 95 01/22/20 09:36 99 167/91 01/22/20 09:36 99 167/91 01/22/20 09:00 Room Air 01/22/20 08:00 97.3 96 16 161/91 (114) 96 01/22/20 04:21 Room Air 01/22/20 02:15 98.2 98 20 141/68 97 Room Air 01/22/20 01:33 98.2 98 20 141/68 97 Room Air 01/21/20 23:12 98.2 98 20 145/73 97 Room Air 01/21/20 21:30 98.2 98 20 148/68 97 Room Air 01/21/20 21:11 98.2 01/21/20 19:10 98.2 100 20 108/94 97 Room Air 01/21/20 19:10 100 20 Room Air 01/21/20 18:53 98.2 100 20 108/94 (99) 97 Room Air Intake and Output 01/21/20 01/22/20 19:00 07:00 Intake Total 2740 ml Output Total 1350 ml Balance 1390 ml Intake Oral 440 ml IV Total 2300 ml Output Urine Total 1350 ml Laboratory Tests Test 01/21/20 19:10 01/21/20 19:45 01/22/20 01:20 01/22/20 08:13 White Blood Count 6.3 K/UL (4.8-10.8) 5.9 K/UL (4.8-10.8) Red Blood Count 4.30 M/UL (4.20-5.40) 3.75 M/UL (4.20-5.40) L Hemoglobin 9.9 G/DL (12.0-16.0) L 8.6 G/DL (12.0-16.0) L Hematocrit 32.4 % (37.0-47.0) L 27.7 % (37.0-47.0) L Mean Corpuscular Volume 75 FL (80-99) L 74 FL (80-99) L Mean Corpuscular Hemoglobin 23.0 PG (27.0-31.0) L 23.0 PG (27.0-31.0) L Mean Corpuscular Hemoglobin Concent 30.5 G/DL (32.0-36.0) L 31.2 G/DL (32.0-36.0) L Red Cell Distribution Width 16.5 % (11.6-14.8) H 14.5 % (11.6-14.8) Platelet Count 262 K/UL (150-450) 227 K/UL (150-450) Mean Platelet Volume 8.8 FL (6.5-10.1) 6.8 FL (6.5-10.1) Neutrophils (%) (Auto) 77.6 % (45.0-75.0) H 69.5 % (45.0-75.0) Lymphocytes (%) (Auto) 10.1 % (20.0-45.0) L 15.8 % (20.0-45.0) L Monocytes (%) (Auto) 10.5 % (1.0-10.0) H 12.5 % (1.0-10.0) H Eosinophils (%) (Auto) 1.0 % (0.0-3.0) 1.8 % (0.0-3.0) Basophils (%) (Auto) 0.8 % (0.0-2.0) 0.4 % (0.0-2.0) Sodium Level 145 MMOL/L (136-145) 146 MMOL/L (136-145) H 146 MMOL/L (136-145) H Potassium Level 2.6 MMOL/L (3.5-5.1) *L 2.7 MMOL/L (3.5-5.1) *L 3.3 MMOL/L (3.5-5.1) L Chloride Level 105 MMOL/L (98-107) 109 MMOL/L (98-107) H 111 MMOL/L (98-107) H Carbon Dioxide Level 28 MMOL/L (21-32) 28 MMOL/L (21-32) 25 MMOL/L (21-32) Anion Gap 12 mmol/L (5-15) 9 mmol/L (5-15) 10 mmol/L (5-15) Blood Urea Nitrogen 45 mg/dL (7-18) H 39 mg/dL (7-18) H 31 mg/dL (7-18) H Creatinine 1.1 MG/DL (0.55-1.30) 1.0 MG/DL (0.55-1.30) 0.8 MG/DL (0.55-1.30) Estimat Glomerular Filtration Rate > 60 mL/min (>60) > 60 mL/min (>60) > 60 mL/min (>60) Glucose Level 105 MG/DL (74-106) 104 MG/DL (74-106) 91 MG/DL (74-106) Lactic Acid Level 1.30 mmol/L (0.4-2.0) Calcium Level 10.2 MG/DL (8.5-10.1) H 9.2 MG/DL (8.5-10.1) 9.1 MG/DL (8.5-10.1) Magnesium Level 1.7 MG/DL (1.8-2.4) L 1.9 MG/DL (1.8-2.4) Total Bilirubin 0.4 MG/DL (0.2-1.0) 0.3 MG/DL (0.2-1.0) Aspartate Amino Transf (AST/SGOT) 34 U/L (15-37) 36 U/L (15-37) Alanine Aminotransferase (ALT/SGPT) 12 U/L (12-78) 6 U/L (12-78) L Alkaline Phosphatase 101 U/L (46-116) 90 U/L (46-116) Total Creatine Kinase 540 U/L (26-308) H Creatine Kinase MB 3.6 NG/ML (0.0-3.6) Creatine Kinase MB Relative Index 0.6 Troponin I 0.005 ng/mL (0.000-0.056) Total Protein 8.0 G/DL (6.4-8.2) 6.8 G/DL (6.4-8.2) Albumin 2.8 G/DL (3.4-5.0) L 2.3 G/DL (3.4-5.0) L Globulin 5.2 g/dL 4.5 g/dL Albumin/Globulin Ratio 0.5 (1.0-2.7) L 0.5 (1.0-2.7) L Urine Color Pale yellow Urine Appearance Clear Urine pH 6 (4.5-8.0) Urine Specific [place] 1.010 (1.005-1.035) Urine Protein 1+ (NEGATIVE) H Urine Glucose (UA) Negative (NEGATIVE) Urine Ketones 1+ (NEGATIVE) H Urine Blood Negative (NEGATIVE) Urine Nitrite Negative (NEGATIVE) Urine Bilirubin Negative (NEGATIVE) Urine Urobilinogen Normal MG/DL (0.0-1.0) Urine Leukocyte Esterase 1+ (NEGATIVE) H Urine RBC 0-2 /HPF (0 - 2) Urine WBC 2-4 /HPF (0 - 2) Urine Squamous Epithelial Cells Few /LPF (NONE/OCC) Urine Bacteria Few /HPF (NONE) Urine Opiates Screen Positive (NEGATIVE) H Urine Barbiturates Screen Negative (NEGATIVE) Phencyclidine (PCP) Screen Negative (NEGATIVE) Urine Amphetamines Screen Negative (NEGATIVE) Urine Benzodiazepines Screen Positive (NEGATIVE) H Urine Cocaine Screen Negative (NEGATIVE) Urine Marijuana (THC) Screen Negative (NEGATIVE) Direct Bilirubin < 0.1 MG/DL (0.0-0.3) Height (Feet): 5 Height (Inches): 5.00 Weight (Pounds): 217 Medications Current Medications Medications (Trade) Dose Ordered Sig/Debbie Route PRN Reason Start Time Stop Time Status Last Admin Dose Admin Acetaminophen/ Hydrocodone Bitart ([place] 10/325) 1 tab Q6H PRN ORAL For Pain 01/22/20 04:00 01/29/20 03:59 01/22/20 09:21 Amlodipine Besylate (Norvasc) 10 mg DAILY ORAL 01/22/20 09:00 02/21/20 08:59 01/22/20 09:36 Atorvastatin Calcium (Lipitor) 40 mg BEDTIME ORAL 01/22/20 21:00 04/21/20 20:59 Baclofen (Lioresal) 10 mg DAILYPRN PRN ORAL muscle pain 01/22/20 04:00 02/21/20 03:59 Dextrose/ Electrolytes 1,000 ml @ 75 mls/hr [id number] IV 01/22/20 13:00 02/21/20 12:59 01/22/20 13:56 Doxazosin Mesylate (Cardura) 4 mg DAILY ORAL 01/22/20 09:00 02/21/20 08:59 01/22/20 09:36 Duloxetine HCl (Cymbalta) 60 mg BID ORAL 01/22/20 09:00 04/21/20 08:59 01/22/20 09:20 Gabapentin (Neurontin) 300 mg BEDTIME ORAL 01/22/20 21:00 02/21/20 20:59 Heparin Sodium (Porcine) (Heparin 5000 units/ml) 5,000 units EVERY 12 HOURS SUBQ 01/22/20 09:00 03/07/20 08:59 01/22/20 09:35 Hydralazine HCl (Apresoline) 25 mg Q6H PRN ORAL For High Blood Pressure 01/22/20 10:30 04/21/20 10:29 Hydralazine HCl (Apresoline) 25 mg Q6HR ORAL 01/22/20 18:00 04/21/20 17:59 Metoprolol Tartrate (Lopressor) 100 mg EVERY 12 HOURS ORAL 01/22/20 09:00 04/21/20 08:59 01/22/20 09:36 Potassium Chloride (K-Dur) 40 meq TWICE A DAY ORAL 01/22/20 09:00 01/22/20 23:59 01/22/20 09:20 Trazodone HCl (Desyrel) 200 mg BEDTIME ORAL 01/22/20 21:00 02/21/20 20:59 Assessment/Plan Problem List: (1) Hypokalemia ICD Codes: E87.6 - Hypokalemia SNOMED: 24150370 (2) Atrial flutter ICD Codes: I48.92 - Unspecified atrial flutter SNOMED: 1373114 (3) Abscess ICD Codes: L02.91 - Cutaneous abscess, unspecified SNOMED: 869228561 (4) Failure to thrive SNOMED: 25293476 (5) Fistula ICD Codes: L98.8 - Other specified disorders of the skin and subcutaneous tissue SNOMED: 167619604 (6) Hypertension ICD Codes: I10 - Essential (primary) hypertension SNOMED: 12480610 (7) Sciatica neuralgia ICD Codes: M54.30 - Sciatica, unspecified side SNOMED: 76840217 (8) Uncontrolled seizures ICD Codes: R56.9 - Unspecified convulsions SNOMED: 67377201 (9) Forgetfulness ICD Codes: R68.89 - Other general symptoms and signs SNOMED: 38153824 (10) Chronic back pain ICD Codes: M54.9 - Dorsalgia, unspecified; G89.29 - Other chronic pain SNOMED: 867020221 (11) Overdose of opiate or related narcotic ICD Codes: T40.601A - Poisoning by unspecified narcotics, accidental ( unintentional), initial encounter SNOMED: 729650121 (12) Cellulitis of left leg ICD Codes: L03.116 - Cellulitis of left lower limb; M25.562 - Pain in left knee ; G89.29 - Other chronic pain SNOMED: 072069890, 05119929 (13) Episode of generalized weakness ICD Codes: R53.1 - Weakness SNOMED: 76280255 (14) Acute encephalopathy ICD Codes: G93.40 - Encephalopathy, unspecified SNOMED: 3491576 (15) Pericolonic abscess due to diverticulitis ICD Codes: K63.0 - Abscess of intestine SNOMED: 304949233 (16) Chronic pain of both knees ICD Codes: M25.561 - Pain in right knee; M25.562 - Pain in left knee; G89.29 - Other chronic pain SNOMED: 74071389, 55811841 (17) Sacral decubitus ulcer Assessment & Plan: patient presented on admission with a stage 3 sacral decubitus ulcer. states she has note been walking in sometime and mainly lay flat or up. can move but does not much no tenderness on palpation no drainage no signs of active infection discussed with patient in detail and care plan given turn q2h off load pressure wash daily with NS, apply therahoney gauze and foam dressing daily and prn saturation heel protectors nutritional optimization will follow with recs thank you ICD Codes: L89.159 - Pressure ulcer of sacral region, unspecified stage SNOMED: 354361756 (18) Ventral incisional hernia Assessment & Plan: reducible ventral hernia incisional. small 2cm defect, no bowel contents noted parastomal hernia large on llq, reducible recommend outpatient eval for management will monitor okay for diet activity as tolerated ostomy bag prn thank you ICD Codes: K43.2 - Incisional hernia without obstruction or gangrene SNOMED: 402575033 Julian Iglesias Jan 22, 2020 18:38
--- NOTE | 2020-01-22 19:00 | NUR ---
NURSE NOTES: Skin care given,turned and postion,patient complaint of pain,will give pain medication as ordered,Bed alarm on,call light within reach.
[2020-01-22] MEDS: HydrALAZINE 25mg tab ORAL SCH (19:01)
--- NOTE | 2020-01-22 19:30 | NUR ---
NURSE NOTES: Patient in bed, alert and oriented x3, no complaints of pain upon rounds, no SOB noted. Instructed to use the call light for assistance. Bed in lowest, lock engaged and alarm on. Will continue plan of care.
--- NOTE | 2020-01-22 19:48 | NUR ---
HAND-OFF: Report given to Jammie ARCOS.
--- NOTE | 2020-01-22 19:48 | NUR ---
NURSE NOTES On coming Nurse aware of fall risk.:
--- NOTE | 2020-01-22 19:56 | Neurology Progress Note ---
Interim History Interim History ROS Limited/Unobtainable: No Interim History 69 YO F with HTN, HLD, s/p colostomy (hx of complicated diverticulitis) presenting with generalized weakness and fatigue. Patient states that over the last couple of weeks she has been experiencing worsening weakness and lethargy in addition to poor apatite. Patient reports of sleeping throughout the day because of extreme fatigue. She complains of generalized body pain and muscle cramps. Patient denies any nausea, vomiting, diarrhea, fever, chills, abdominal pain, cough, shortness of breath, sick contacts or recent travel. She does not report of any change in her colostomy output. On arrival to the ED, patient's vitals were within the normal limit .Patient's lab values were significant for K:2.6, M.7 and albumin low at 2.8. The CK was elevated at 540. pt very weak for days, disoriented, can only tell me name and year Objective Physical Exam Last Vital Signs Date Time Temp Pulse Resp B/P (MAP) Pulse Ox O2 Delivery O2 Flow Rate FiO2 01/22/20 19:01 140/62 01/22/20 16:00 98.3 87 19 96 01/22/20 09:00 Room Air cc 35 min Laboratory Tests Test 01/22/20 01:20 01/22/20 08:13 Sodium Level 146 MMOL/L (136-145) H 146 MMOL/L (136-145) H Potassium Level 2.7 MMOL/L (3.5-5.1) *L 3.3 MMOL/L (3.5-5.1) L Chloride Level 109 MMOL/L (98-107) H 111 MMOL/L (98-107) H Carbon Dioxide Level 28 MMOL/L (21-32) 25 MMOL/L (21-32) Anion Gap 9 mmol/L (5-15) 10 mmol/L (5-15) Blood Urea Nitrogen 39 mg/dL (7-18) H 31 mg/dL (7-18) H Creatinine 1.0 MG/DL (0.55-1.30) 0.8 MG/DL (0.55-1.30) Estimat Glomerular Filtration Rate > 60 mL/min (>60) > 60 mL/min (>60) Glucose Level 104 MG/DL (74-106) 91 MG/DL (74-106) Calcium Level 9.2 MG/DL (8.5-10.1) 9.1 MG/DL (8.5-10.1) White Blood Count 5.9 K/UL (4.8-10.8) Red Blood Count 3.75 M/UL (4.20-5.40) L Hemoglobin 8.6 G/DL (12.0-16.0) L Hematocrit 27.7 % (37.0-47.0) L Mean Corpuscular Volume 74 FL (80-99) L Mean Corpuscular Hemoglobin 23.0 PG (27.0-31.0) L Mean Corpuscular Hemoglobin Concent 31.2 G/DL (32.0-36.0) L Red Cell Distribution Width 14.5 % (11.6-14.8) Platelet Count 227 K/UL (150-450) Mean Platelet Volume 6.8 FL (6.5-10.1) Neutrophils (%) (Auto) 69.5 % (45.0-75.0) Lymphocytes (%) (Auto) 15.8 % (20.0-45.0) L Monocytes (%) (Auto) 12.5 % (1.0-10.0) H Eosinophils (%) (Auto) 1.8 % (0.0-3.0) Basophils (%) (Auto) 0.4 % (0.0-2.0) Magnesium Level 1.9 MG/DL (1.8-2.4) Total Bilirubin 0.3 MG/DL (0.2-1.0) Direct Bilirubin < 0.1 MG/DL (0.0-0.3) Aspartate Amino Transf (AST/SGOT) 36 U/L (15-37) Alanine Aminotransferase (ALT/SGPT) 6 U/L (12-78) L Alkaline Phosphatase 90 U/L (46-116) Total Protein 6.8 G/DL (6.4-8.2) Albumin 2.3 G/DL (3.4-5.0) L Globulin 4.5 g/dL Albumin/Globulin Ratio 0.5 (1.0-2.7) L Head: normocophalic Neck: no rigidity EENT: benign Neurologic Exam Mental Status: awake, alert Motor System: strength 5/5 Objective 5-/5 all over, non focal disoriented, confused, tangential Impression/Recommendations Problems: (1) Hypokalemia (2) Atrial flutter (3) Abscess (4) Failure to thrive (5) Fistula (6) Hypertension (7) Sciatica neuralgia (8) Uncontrolled seizures (9) Forgetfulness (10) Chronic back pain (11) Overdose of opiate or related narcotic (12) Cellulitis of left leg (13) Episode of generalized weakness (14) Acute encephalopathy (15) Pericolonic abscess due to diverticulitis (16) Chronic pain of both knees (17) Sacral decubitus ulcer (18) Ventral incisional hernia Status: stable Diagnostic Impression Acute encephalopathy with gen weakness, likely metabolic Non focal no signs of parkinsonism, possible underlying cognitive decline Cont exc medical support PT OT Del precautions Neuropsych outpatient Manolo Sauceda MD Jan 22, 2020 19:55
[2020-01-22 20:00] VITALS: BP_SYST 115; BP_SYST 123; BP_DIAS 60; BP_DIAS 83
[2020-01-22] MEDS: Atorvastatin 20mg tab ORAL SCH (20:14)
[2020-01-22] MEDS: TraZODone 100mg tab ORAL SCH (20:14)
[2020-01-23] VITALS: BP 142/84
[2020-01-23] MEDS: HydrALAZINE 25mg tab ORAL SCH ×2 (00:07→05:24)
[2020-01-23] MEDS: D5 1/2NS w/KCl 20mEq 1,000 ML IV SCH (02:31)
[2020-01-23 04:00] VITALS: BP 146/81
[2020-01-23] MEDS: HYDROcodone/Acetamin 10/325 tab ORAL PRN ×3 (05:23→18:32)
--- NOTE | 2020-01-23 07:09 | NUR ---
HAND-OFF: Report given to JOSSELYN Mays.
[2020-01-23 07:42] LABS: BASOPHILS % (AUTO) 0.4 % (0.0-2.0); EOSINOPHILS % (AUTO) 2.1 % (0.0-3.0); HEMATOCRIT 29.5 % (37.0-47.0); HEMOGLOBIN 9.3 G/DL (12.0-16.0); LYMPHOCYTES % (AUTO) 17.3 % (20.0-45.0); MEAN CORPUSCULAR VOLUME 74 FL (80-99); MONOCYTES % (AUTO) 9.2 % (1.0-10.0); PLATELET COUNT 228 K/UL (150-450); RED BLOOD COUNT 3.98 M/UL (4.20-5.40); RED CELL DISTRIBUTION WIDTH 14.4 % (11.6-14.8); WHITE BLOOD COUNT 6.4 K/UL (4.8-10.8)
[2020-01-23 08:00] VITALS: BP 165/85
[2020-01-23 08:47] LABS: ANION GAP 12 mmol/L (5-15); BLOOD UREA NITROGEN 18 mg/dL (7-18); CALCIUM 9.4 MG/DL (8.5-10.1); CARBON DIOXIDE 22 MMOL/L (21-32); CHLORIDE 109 MMOL/L (98-107); CREATININE 0.9 MG/DL (0.55-1.30); SODIUM 143 MMOL/L (136-145)
--- NOTE | 2020-01-23 09:05 | Consultation ---
History of Present Illness General Chief Complaint: Generalized Weakness Reason for Consultation: ams Present Illness HPI 69 YO F with HTN, HLD, s/p colostomy (hx of complicated diverticulitis) presenting with generalized weakness and fatigue. Patient states that over the last couple of weeks she has been experiencing worsening weakness and lethargy in addition to poor apatite. Patient reports of sleeping throughout the day because of extreme fatigue. She complains of generalized body pain and muscle cramps. Patient denies any nausea, vomiting, diarrhea, fever, chills, abdominal pain, cough, shortness of breath, sick contacts or recent travel. She does not report of any change in her colostomy output. On arrival to the ED, patient's vitals were within the normal limit .Patient's lab values were significant for K:2.6, M.7 and albumin low at 2.8. The CK was elevated at 540. pt very weak for days, disoriented, can only tell me name and year Allergies: Coded Allergies: LISINOPRIL (Verified Allergy, Unknown, Hives, 04/12/14) Medication History Scheduled Amlodipine Besylate* (Amlodipine Besylate*), 10 MG ORAL DAILY, (Reported) Baclofen* (Baclofen*), 10 MG ORAL NEEDED, (Reported) Doxazosin Mesylate* (Doxazosin Mesylate*), 4 MG ORAL DAILY, (Reported) Duloxetine Hcl* (Cymbalta*), 60 MG ORAL BID, (Reported) Gabapentin* (Gabapentin*), 300 MG ORAL BEDTIME, (Reported) Metoprolol Tartrate* (Metoprolol Tartrate*), 100 MG ORAL EVERY 12 HOURS, ( Reported) Simvastatin (Zocor), 40 MG ORAL BEDTIME, (Reported) Trazodone* (Trazodone*), 200 MG ORAL BEDTIME, (Reported) Scheduled PRN Hydrocodone/Acetaminophen (Hydrocodon-Acetaminophn 10-325), 1 TAB ORAL Q6H PRN for For Pain, (Reported) Discontinued Medications Cephalexin* (Keflex*), 500 MG ORAL Q6H Discontinued Reason: MD discontinued med Hydrochlorothiazide* (Hydrochlorothiazide*), 25 MG ORAL DAILY, (Reported) Discontinued Reason: MD discontinued med Triamterene/Hydrochlorothiazid (Triamterene-Hctz 37.5-25 Mg Cp), 1 CAP ORAL DAILY, (Reported) Discontinued Reason: discontinued med Patient History Healthcare decision maker Resuscitation status Full Code Advanced Directive on File Review of Systems ROS Narrative cc 36 min Physical Exam General Appearance: alert, confused HEENT: normocephalic, atraumatic Neck: non-tender, supple Respiratory/Chest: chest wall non-tender Breasts: no masses Cardiovascular/Chest: normal peripheral pulses Abdomen: normal bowel sounds 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, no motor/sensory deficits, alert, responsive, depressed affect Last 24 Hour Vital Signs Date Time Temp Pulse Resp B/P (MAP) Pulse Ox O2 Delivery O2 Flow Rate FiO2 01/23/20 08:00 98.2 100 19 165/85 (111) 97 01/23/20 05:24 152/81 01/23/20 04:00 99.0 95 18 146/81 (102) 98 01/23/20 00:07 142/84 01/23/20 00:00 98.2 92 16 142/84 (103) 95 01/22/20 21:00 Room Air 01/22/20 20:00 98.9 83 18 115/60 (78) 98 01/22/20 19:01 140/62 01/22/20 16:00 98.3 87 19 121/67 (85) 96 01/22/20 12:00 98.2 67 18 134/50 (78) 95 01/22/20 09:36 99 167/91 01/22/20 09:36 99 167/91 Intake and Output 01/22/20 01/23/20 19:00 07:00 Intake Total 655 ml 750 ml Output Total 400 ml 450 ml Balance 255 ml 300 ml Intake Oral 480 ml IV Total 175 ml 750 ml Output Urine Total 400 ml 450 ml # Voids 1 Laboratory Tests Test 01/23/20 06:14 White Blood Count 6.4 K/UL (4.8-10.8) Red Blood Count 3.98 M/UL (4.20-5.40) L Hemoglobin 9.3 G/DL (12.0-16.0) L Hematocrit 29.5 % (37.0-47.0) L Mean Corpuscular Volume 74 FL (80-99) L Mean Corpuscular Hemoglobin 23.4 PG (27.0-31.0) L Mean Corpuscular Hemoglobin Concent 31.5 G/DL (32.0-36.0) L Red Cell Distribution Width 14.4 % (11.6-14.8) Platelet Count 228 K/UL (150-450) Mean Platelet Volume 6.9 FL (6.5-10.1) Neutrophils (%) (Auto) 71.0 % (45.0-75.0) Lymphocytes (%) (Auto) 17.3 % (20.0-45.0) L Monocytes (%) (Auto) 9.2 % (1.0-10.0) Eosinophils (%) (Auto) 2.1 % (0.0-3.0) Basophils (%) (Auto) 0.4 % (0.0-2.0) Sodium Level 143 MMOL/L (136-145) Potassium Level 4.0 MMOL/L (3.5-5.1) Chloride Level 109 MMOL/L (98-107) H Carbon Dioxide Level 22 MMOL/L (21-32) Anion Gap 12 mmol/L (5-15) Blood Urea Nitrogen 18 mg/dL (7-18) Creatinine 0.9 MG/DL (0.55-1.30) Estimat Glomerular Filtration Rate > 60 mL/min (>60) Glucose Level 111 MG/DL (74-106) H Calcium Level 9.4 MG/DL (8.5-10.1) Phosphorus Level Pending Iron Level Pending Ferritin Pending Height (Feet): 5 Height (Inches): 5.00 Weight (Pounds): 217 Medications Current Medications Medications (Trade) Dose Ordered Sig/Debbie Route PRN Reason Start Time Stop Time Status Last Admin Dose Admin Acetaminophen/ Hydrocodone Bitart (Rosebud 10/325) 1 tab Q6H PRN ORAL For Pain 01/22/20 04:00 01/29/20 03:59 01/23/20 05:23 Amlodipine Besylate (Norvasc) 10 mg DAILY ORAL 01/22/20 09:00 02/21/20 08:59 01/22/20 09:36 Atorvastatin Calcium (Lipitor) 40 mg BEDTIME ORAL 01/22/20 21:00 04/21/20 20:59 01/22/20 20:14 Baclofen (Lioresal) 10 mg DAILYPRN PRN ORAL muscle pain 01/22/20 04:00 02/21/20 03:59 Dextrose/ Electrolytes 1,000 ml @ 75 mls/hr [id number] IV 01/22/20 13:00 02/21/20 12:59 01/23/20 02:31 Doxazosin Mesylate (Cardura) 4 mg DAILY ORAL 01/22/20 09:00 02/21/20 08:59 01/22/20 09:36 Duloxetine HCl (Cymbalta) 60 mg BID ORAL 01/22/20 09:00 04/21/20 08:59 01/22/20 19:01 Gabapentin (Neurontin) 300 mg BEDTIME ORAL 01/22/20 21:00 02/21/20 20:59 01/22/20 20:14 Heparin Sodium (Porcine) (Heparin 5000 units/ml) 5,000 units EVERY 12 HOURS SUBQ 01/22/20 09:00 03/07/20 08:59 01/22/20 20:16 Hydralazine HCl (Apresoline) 25 mg Q6H PRN ORAL For High Blood Pressure 01/22/20 10:30 04/21/20 10:29 Hydralazine HCl (Apresoline) 25 mg Q6HR ORAL 01/22/20 18:00 04/21/20 17:59 01/23/20 05:24 Metoprolol Tartrate (Lopressor) 100 mg EVERY 12 HOURS ORAL 01/22/20 09:00 04/21/20 08:59 01/22/20 09:36 Trazodone HCl (Desyrel) 200 mg BEDTIME ORAL 01/22/20 21:00 02/21/20 20:59 01/22/20 20:14 Assessment/Plan Problem List: (1) Hypokalemia ICD Codes: E87.6 - Hypokalemia SNOMED: 03611293 (2) Atrial flutter ICD Codes: I48.92 - Unspecified atrial flutter SNOMED: 5014965 (3) Abscess ICD Codes: L02.91 - Cutaneous abscess, unspecified SNOMED: 951084834 (4) Failure to thrive SNOMED: 07938999 (5) Fistula ICD Codes: L98.8 - Other specified disorders of the skin and subcutaneous tissue SNOMED: 954987340 (6) Hypertension ICD Codes: I10 - Essential (primary) hypertension SNOMED: 69215623 (7) Sciatica neuralgia ICD Codes: M54.30 - Sciatica, unspecified side SNOMED: 45789947 (8) Uncontrolled seizures ICD Codes: R56.9 - Unspecified convulsions SNOMED: 29463440 (9) Forgetfulness ICD Codes: R68.89 - Other general symptoms and signs SNOMED: 12055071 (10) Chronic back pain ICD Codes: M54.9 - Dorsalgia, unspecified; G89.29 - Other chronic pain SNOMED: 110297526 (11) Overdose of opiate or related narcotic ICD Codes: T40.601A - Poisoning by unspecified narcotics, accidental ( unintentional), initial encounter SNOMED: 768220911 (12) Cellulitis of left leg ICD Codes: L03.116 - Cellulitis of left lower limb; M25.562 - Pain in left knee ; G89.29 - Other chronic pain SNOMED: 474189745, 63527096 (13) Episode of generalized weakness ICD Codes: R53.1 - Weakness SNOMED: 08009237 (14) Acute encephalopathy ICD Codes: G93.40 - Encephalopathy, unspecified SNOMED: 2548796 (15) Pericolonic abscess due to diverticulitis ICD Codes: K63.0 - Abscess of intestine SNOMED: 619520755 (16) Chronic pain of both knees ICD Codes: M25.561 - Pain in right knee; M25.562 - Pain in left knee; G89.29 - Other chronic pain SNOMED: 16271667, 94151155 (17) Sacral decubitus ulcer ICD Codes: L89.159 - Pressure ulcer of sacral region, unspecified stage SNOMED: 826797074 (18) Ventral incisional hernia ICD Codes: K43.2 - Incisional hernia without obstruction or gangrene SNOMED: 981616311 Assessment/Plan: acute encephalopathy, metabolic non focal exam Manolo Sauceda MD Jan 23, 2020 09:05
--- NOTE | 2020-01-23 09:05 | Neurology Progress Note ---
Interim History Interim History ROS Limited/Unobtainable: No Interim History more alert today, conversant, still confused asking for breakfast Objective Physical Exam Last Vital Signs Date Time Temp Pulse Resp B/P (MAP) Pulse Ox O2 Delivery O2 Flow Rate FiO2 01/23/20 08:00 98.2 100 19 165/85 (111) 97 01/22/20 21:00 Room Air Laboratory Tests Test 01/23/20 06:14 White Blood Count 6.4 K/UL (4.8-10.8) Red Blood Count 3.98 M/UL (4.20-5.40) L Hemoglobin 9.3 G/DL (12.0-16.0) L Hematocrit 29.5 % (37.0-47.0) L Mean Corpuscular Volume 74 FL (80-99) L Mean Corpuscular Hemoglobin 23.4 PG (27.0-31.0) L Mean Corpuscular Hemoglobin Concent 31.5 G/DL (32.0-36.0) L Red Cell Distribution Width 14.4 % (11.6-14.8) Platelet Count 228 K/UL (150-450) Mean Platelet Volume 6.9 FL (6.5-10.1) Neutrophils (%) (Auto) 71.0 % (45.0-75.0) Lymphocytes (%) (Auto) 17.3 % (20.0-45.0) L Monocytes (%) (Auto) 9.2 % (1.0-10.0) Eosinophils (%) (Auto) 2.1 % (0.0-3.0) Basophils (%) (Auto) 0.4 % (0.0-2.0) Sodium Level 143 MMOL/L (136-145) Potassium Level 4.0 MMOL/L (3.5-5.1) Chloride Level 109 MMOL/L (98-107) H Carbon Dioxide Level 22 MMOL/L (21-32) Anion Gap 12 mmol/L (5-15) Blood Urea Nitrogen 18 mg/dL (7-18) Creatinine 0.9 MG/DL (0.55-1.30) Estimat Glomerular Filtration Rate > 60 mL/min (>60) Glucose Level 111 MG/DL (74-106) H Calcium Level 9.4 MG/DL (8.5-10.1) Phosphorus Level Pending Iron Level Pending Ferritin Pending Head: normocophalic Neck: no rigidity EENT: benign Neurologic Exam Mental Status: awake, alert Motor System: strength 5/5 Objective 5-/5 all over, non focal disoriented, confused, tangential Impression/Recommendations Problems: (1) Hypokalemia (2) Atrial flutter (3) Abscess (4) Failure to thrive (5) Fistula (6) Hypertension (7) Sciatica neuralgia (8) Uncontrolled seizures (9) Forgetfulness (10) Chronic back pain (11) Overdose of opiate or related narcotic (12) Cellulitis of left leg (13) Episode of generalized weakness (14) Acute encephalopathy (15) Pericolonic abscess due to diverticulitis (16) Chronic pain of both knees (17) Sacral decubitus ulcer (18) Ventral incisional hernia Status: stable Diagnostic Impression Acute encephalopathy with gen weakness, likely metabolic Non focal no signs of parkinsonism, possible underlying cognitive decline Cont exc medical support PT OT Del precautions Neuropsych outpatient Manolo Sauceda MD Jan 23, 2020 09:05
[2020-01-23] MEDS: Doxazosin 4mg tab ORAL SCH (09:13)
[2020-01-23] MEDS: Metoprolol Tartrate 100mg tab ORAL SCH ×2 (09:13→20:39)
[2020-01-23] MEDS: DULoxetine 30mg cap ORAL SCH ×2 (09:13→17:40)
[2020-01-23] MEDS: Heparin 5000 units/ml inj SUBQ SCH ×2 (09:15→20:40)
[2020-01-23 09:20] LABS: PHOSPHORUS 2.1 MG/DL (2.5-4.9)
--- NOTE | 2020-01-23 09:47 | Nephrology Progress Note ---
Assessment/Plan Plan #severe hyperkalemia- in the setting of decreased PO intake and thiazide use #Hypomagnesemia #Anemia #Generalized weakness, failure to thrive #HTN #HLD # s/p colostomy (hx of complicated diverticulitis) - DC - replete phos - check phos - monitor BMP - hold HCTZ - resume home Amlodipine 10mg daily and Metoprolol 100mg BID - hydralazine 50mg q6hr - continue Hydralazine PRN for SBP >160 - Continue to monitor - monitor hemoglobin - IV iron - PT/OT - dispo planning to SNF-> [facility] Subjective Subjective feeling better today less weak no nausea or emesis pending PT Lytes ok Objective Objective Last 24 Hour Vital Signs Date Time Temp Pulse Resp B/P (MAP) Pulse Ox O2 Delivery O2 Flow Rate FiO2 01/23/20 09:13 100 165/85 01/23/20 09:13 100 165/85 01/23/20 08:00 98.2 100 19 165/85 (111) 97 01/23/20 05:24 152/81 01/23/20 04:00 99.0 95 18 146/81 (102) 98 01/23/20 00:07 142/84 01/23/20 00:00 98.2 92 16 142/84 (103) 95 01/22/20 21:00 Room Air 01/22/20 20:00 98.9 83 18 115/60 (78) 98 01/22/20 19:01 140/62 01/22/20 16:00 98.3 87 19 121/67 (85) 96 01/22/20 12:00 98.2 67 18 134/50 (78) 95 Intake and Output 01/22/20 01/23/20 19:00 07:00 Intake Total 655 ml 750 ml Output Total 400 ml 450 ml Balance 255 ml 300 ml Intake Oral 480 ml IV Total 175 ml 750 ml Output Urine Total 400 ml 450 ml # Voids 1 Laboratory Tests 01/23/20 06:14: White Blood Count 6.4, Red Blood Count 3.98L, Hemoglobin 9.3L, Hematocrit 29.5L , Mean Corpuscular Volume 74L, Mean Corpuscular Hemoglobin 23.4L, Mean Corpuscular Hemoglobin Concent 31.5L, Red Cell Distribution Width 14.4, Platelet Count 228, Mean Platelet Volume 6.9, Neutrophils (%) (Auto) 71.0, Lymphocytes (%) (Auto) 17.3L, Monocytes (%) (Auto) 9.2, Eosinophils (%) (Auto) 2.1, Basophils (%) (Auto) 0.4, Sodium Level 143, Potassium Level 4.0, Chloride Level 109H, Carbon Dioxide Level 22, Anion Gap 12, Blood Urea Nitrogen 18, Creatinine 0.9, Estimat Glomerular Filtration Rate > 60, Glucose Level 111H, Calcium Level 9.4, Phosphorus Level 2.1L, Iron Level 15L, Ferritin 50 Height (Feet): 5 Height (Inches): 5.00 Weight (Pounds): 217 Venkat Montes M.D. Jan 23, 2020 09:47
--- NOTE | 2020-01-23 11:17 | Cardiology Progress Note ---
Assessment/Plan Status: stable Assessment/Plan Assessment/Plan: ASSESSMENT: -Weakness/Failure to thrive -Low albumin -Poor PO intake -Hypokalemia -Ectopy/PVCs -Low magnesium -VENTURA -Anemia -Hypertension -HLD -chronic pain PLAN: -IV fluid hydration -Replete electrolytes -Multivitamin -Continue metoprolol -Continue amlodipine -Hold HCTZ in setting of VENTURA -Continue simvastatin -Outpatient stress test -No indication for cardiac cath Subjective Cardiovascular: Reports: no symptoms Respiratory: Reports: no symptoms Gastrointestinal/Abdominal: Reports: no symptoms Genitourinary: Reports: no symptoms Subjective No acute events, vitals stable no fevers, patient reports feeling better. Objective Last 24 Hour Vital Signs Date Time Temp Pulse Resp B/P (MAP) Pulse Ox O2 Delivery O2 Flow Rate FiO2 01/23/20 09:13 100 165/85 01/23/20 09:13 100 165/85 01/23/20 08:00 98.2 100 19 165/85 (111) 97 01/23/20 05:24 152/81 01/23/20 04:00 99.0 95 18 146/81 (102) 98 01/23/20 00:07 142/84 01/23/20 00:00 98.2 92 16 142/84 (103) 95 01/22/20 21:00 Room Air 01/22/20 20:00 98.9 83 18 115/60 (78) 98 01/22/20 19:01 140/62 01/22/20 16:00 98.3 87 19 121/67 (85) 96 01/22/20 12:00 98.2 67 18 134/50 (78) 95 General Appearance: no apparent distress, alert EENT: PERRL/EOMI, normal ENT inspection, TMs normal, pharynx normal Neck: non-tender, normal alignment, supple, normal inspection, no JVD Rhythm: NSR Cardiovascular: normal peripheral pulses, normal rate, regular rhythm Respiratory/Chest: chest wall non-tender, lungs clear, normal breath sounds, no respiratory distress, no accessory muscle use Abdomen: normal bowel sounds, non tender, soft, no organomegaly, no mass Extremities: normal range of motion, non-tender, normal inspection Intake and Output 01/22/20 01/23/20 19:00 07:00 Intake Total 655 ml 750 ml Output Total 400 ml 450 ml Balance 255 ml 300 ml Intake Oral 480 ml IV Total 175 ml 750 ml Output Urine Total 400 ml 450 ml # Voids 1 Laboratory Tests Test 01/23/20 06:14 White Blood Count 6.4 K/UL (4.8-10.8) Red Blood Count 3.98 M/UL (4.20-5.40) L Hemoglobin 9.3 G/DL (12.0-16.0) L Hematocrit 29.5 % (37.0-47.0) L Mean Corpuscular Volume 74 FL (80-99) L Mean Corpuscular Hemoglobin 23.4 PG (27.0-31.0) L Mean Corpuscular Hemoglobin Concent 31.5 G/DL (32.0-36.0) L Red Cell Distribution Width 14.4 % (11.6-14.8) Platelet Count 228 K/UL (150-450) Mean Platelet Volume 6.9 FL (6.5-10.1) Neutrophils (%) (Auto) 71.0 % (45.0-75.0) Lymphocytes (%) (Auto) 17.3 % (20.0-45.0) L Monocytes (%) (Auto) 9.2 % (1.0-10.0) Eosinophils (%) (Auto) 2.1 % (0.0-3.0) Basophils (%) (Auto) 0.4 % (0.0-2.0) Sodium Level 143 MMOL/L (136-145) Potassium Level 4.0 MMOL/L (3.5-5.1) Chloride Level 109 MMOL/L (98-107) H Carbon Dioxide Level 22 MMOL/L (21-32) Anion Gap 12 mmol/L (5-15) Blood Urea Nitrogen 18 mg/dL (7-18) Creatinine 0.9 MG/DL (0.55-1.30) Estimat Glomerular Filtration Rate > 60 mL/min (>60) Glucose Level 111 MG/DL (74-106) H Calcium Level 9.4 MG/DL (8.5-10.1) Phosphorus Level 2.1 MG/DL (2.5-4.9) L Iron Level 15 ug/dL (50-175) L Ferritin 50 NG/ML (8-388) Rafat Crooks MD Jan 23, 2020 11:17
--- NOTE | 2020-01-23 11:54 | NUR ---
RD ASSESSMENT & RECOMMENDATIONS SEE CARE ACTIVITY FOR COMPLETE ASSESSMENT DAILY ESTIMATED NEEDS: Needs based on Wound, 75.8kg adj 23-28 kcals/kg [id number] total kcals 1.25-1.5 g protein/kg 95-114 g total protein 25-30 mL/kg 1866-1824 total fluid mLs NUTRITION DIAGNOSIS: Increased pro needs r/t wound healing as evidenced by sacral stage 3 wound. CURRENT DIET: Cardiac PO DIET RECOMMENDATIONS: Low Na/ Low fiber diet ADDITIONAL RECOMMENDATIONS: 1) Maintain calibrated bed scale wts 2) Wound care: CLIF BID + MVI w/ min qd Hold Vit C, may cause increased ostomy o/p If tolerated, rec 250mg BID 3) Lytes daily, replete as needed 4) Add High pro snacks w/ current fair po intake 5) Ensure Enlive qdaily
[2020-01-23 12:00] VITALS: BP 152/76
--- NOTE | 2020-01-23 12:03 | General Progress Note ---
Assessment/Plan Status: stable Assessment/Plan: Mrs. Carrasco is a 69YO F with HTN, HLD, chronic pain, s/p colostomy (hx of complicated diverticulitis s/p colectomy) presenting with worsening poor appetite and generalized weakness. Inpatient medical work up is significant for hypokalemia (K:2.6) and elevation of the CK:540. She is being admitted for further observation and medical management. #Generalized weakness #Failure to thrive #Hypoalbuminemia #Poor PO intake -Cont. inpatient medical management -d/c IVF hydration -PT/OT -Encourage mobilization -Nutrition consulted -Monitor electrolytes. -Neuro consulted, recs appreciated -CM for d/c planning #Hypokalemia 2/2 to poor PO intake - resolved #Hypomagnesemia - resolved #Elevated serum Creatinine Kinase -Continue to monitor and replenish PRN. -s/p IV hydration -Dr. Venkat Montes following. Appreciate further input. #Chronic microcytic anemia: -Serum Hgb: 9.9; MCV: 75 -No signs of acute bleeding. -Continue to monitor. #Decubitus Ulcer (III): -No signs of cellulitis -wound care consult appreciated. #Essential HTN: -Cont. home Amlodipine and Metoprolol -Home HCTZ held given electrolyte abnormalities -restart HCTZ given electrolytes now replaced -Hydralazine -Continue to monitor. #HLD: -cont. home Simvastatin. #Chronic pain: -Resume home Duloxetine, gabapentin and [place]. -PT/OT DVT PPX: SubQ heparin Dispo: plan to d/c to SNF tomorrow once BP better controlled. I spent 35 minutes on this patient's case, and >50% was dedicated to counseling and/or care coordination. Time of note may not reflect time of encounter. Subjective Constitutional: Reports: weakness - generalized; Denies: no symptoms, chills, diaphoresis, fever, malaise, other HEENT: Denies: no symptoms, eye pain, blurred vision, tearing, double vision, ear pain, ear discharge, nose pain, nose congestion, throat pain, throat swelling, mouth pain, mouth swelling, other Cardiovascular: Denies: no symptoms, chest pain, edema, irregular heart rate, lightheadedness, palpitations, syncope, other Respiratory: Denies: no symptoms, cough, orthopnea, shortness of breath, SOB with excertion, SOB at rest, sputum, stridor, wheezing, other Gastrointestinal/Abdominal: Denies: no symptoms, abdomen distended, abdominal pain, black stools, tarry stools, blood in stool, constipated, diarrhea, difficulty swallowing, nausea, poor appetite, poor fluid intake, rectal bleeding , vomiting, other Genitourinary: Denies: no symptoms, burning, discharge, frequency, flank pain, hematuria, incontinence, pain, urgency, other Allergies: Coded Allergies: LISINOPRIL (Verified Allergy, Unknown, Hives, 04/12/14) Subjective Follow-up for generalized weakness. No acute issues overnight, pt with no concerns today, denies CP, F/C, cough. BP elevated today. Objective Last 24 Hour Vital Signs Date Time Temp Pulse Resp B/P (MAP) Pulse Ox O2 Delivery O2 Flow Rate FiO2 01/23/20 09:13 100 165/85 01/23/20 09:13 100 165/85 01/23/20 08:00 98.2 100 19 165/85 (111) 97 01/23/20 05:24 152/81 01/23/20 04:00 99.0 95 18 146/81 (102) 98 01/23/20 00:07 142/84 01/23/20 00:00 98.2 92 16 142/84 (103) 95 01/22/20 21:00 Room Air 01/22/20 20:00 98.9 83 18 115/60 (78) 98 01/22/20 19:01 140/62 01/22/20 16:00 98.3 87 19 121/67 (85) 96 01/22/20 12:00 98.2 67 18 134/50 (78) 95 Intake and Output 01/22/20 01/23/20 19:00 07:00 Intake Total 655 ml 750 ml Output Total 400 ml 450 ml Balance 255 ml 300 ml Intake Oral 480 ml IV Total 175 ml 750 ml Output Urine Total 400 ml 450 ml # Voids 1 Laboratory Tests 01/23/20 06:14: White Blood Count 6.4, Red Blood Count 3.98L, Hemoglobin 9.3L, Hematocrit 29.5L , Mean Corpuscular Volume 74L, Mean Corpuscular Hemoglobin 23.4L, Mean Corpuscular Hemoglobin Concent 31.5L, Red Cell Distribution Width 14.4, Platelet Count 228, Mean Platelet Volume 6.9, Neutrophils (%) (Auto) 71.0, Lymphocytes (%) (Auto) 17.3L, Monocytes (%) (Auto) 9.2, Eosinophils (%) (Auto) 2.1, Basophils (%) (Auto) 0.4, Sodium Level 143, Potassium Level 4.0, Chloride Level 109H, Carbon Dioxide Level 22, Anion Gap 12, Blood Urea Nitrogen 18, Creatinine 0.9, Estimat Glomerular Filtration Rate > 60, Glucose Level 111H, Calcium Level 9.4, Phosphorus Level 2.1L, Iron Level 15L, Ferritin 50 Height (Feet): 5 Height (Inches): 5.00 Weight (Pounds): 217 Objective General: NAD, A&O x 3, awake, alert HEENT: NCAT, EOMi, MMM CV: RRR, no murmurs, rubs, or gallops Pulm: CTAB, No wheezes, rhonchi, or rales, no accessory muscle usage or conversational dyspnea GI: Soft, nontender, nondistended, bowel sounds present, colostomy present with brown stool, C/D/I Ext: No lower extremity edema bilaterally Skin: no rashes lesions or ulcers Delphine Cochran M.D. Jan 23, 2020 12:03
[2020-01-23] MEDS: Phospha 250 Neutral tab ORAL SCH ×2 (12:06→17:40)
[2020-01-23] MEDS: HydrALAZINE 50mg tab ORAL SCH ×2 (12:07→17:40)
--- NOTE | 2020-01-23 12:48 | NUR ---
DISCHARGE PLANNING: PATIENT HAS BEEN REFERRED TO [facility] T: [phone] F: [phone] ANTICIPATED DC IN AM
[2020-01-23 15:21] VITALS: BP 150/65
--- NOTE | 2020-01-23 17:40 | Surgery Progress Note ---
Surgery Progress Note Subjective Symptoms: improved, tolerating diet, voiding well, passing flatus, BM, pain decreased Objective Last 24 Hour Vital Signs Date Time Temp Pulse Resp B/P (MAP) Pulse Ox O2 Delivery O2 Flow Rate FiO2 01/23/20 15:21 99.3 93 21 150/65 (93) 97 01/23/20 12:37 98.2 01/23/20 12:07 165/85 01/23/20 12:00 98.6 93 20 152/76 (101) 97 01/23/20 09:13 100 165/85 01/23/20 09:13 100 165/85 01/23/20 09:00 Room Air 01/23/20 08:00 98.2 100 19 165/85 (111) 97 01/23/20 05:24 152/81 01/23/20 04:00 99.0 95 18 146/81 (102) 98 01/23/20 00:07 142/84 01/23/20 00:00 98.2 92 16 142/84 (103) 95 01/22/20 21:00 Room Air 01/22/20 20:00 98.9 83 18 115/60 (78) 98 01/22/20 19:01 140/62 I&O Intake and Output 01/22/20 01/23/20 19:00 07:00 Intake Total 655 ml 825 ml Output Total 400 ml 450 ml Balance 255 ml 375 ml Intake Oral 480 ml IV Total 175 ml 825 ml Output Urine Total 400 ml 450 ml # Voids 1 Dressing: dry Wound: clean Cardiovascular: RSR Respiratory: clear Abdomen: soft, non-tender, present bowel sounds, other Extremities: no tenderness, no cyanosis Laboratory Tests Test 01/23/20 06:14 White Blood Count 6.4 K/UL (4.8-10.8) Red Blood Count 3.98 M/UL (4.20-5.40) L Hemoglobin 9.3 G/DL (12.0-16.0) L Hematocrit 29.5 % (37.0-47.0) L Mean Corpuscular Volume 74 FL (80-99) L Mean Corpuscular Hemoglobin 23.4 PG (27.0-31.0) L Mean Corpuscular Hemoglobin Concent 31.5 G/DL (32.0-36.0) L Red Cell Distribution Width 14.4 % (11.6-14.8) Platelet Count 228 K/UL (150-450) Mean Platelet Volume 6.9 FL (6.5-10.1) Neutrophils (%) (Auto) 71.0 % (45.0-75.0) Lymphocytes (%) (Auto) 17.3 % (20.0-45.0) L Monocytes (%) (Auto) 9.2 % (1.0-10.0) Eosinophils (%) (Auto) 2.1 % (0.0-3.0) Basophils (%) (Auto) 0.4 % (0.0-2.0) Sodium Level 143 MMOL/L (136-145) Potassium Level 4.0 MMOL/L (3.5-5.1) Chloride Level 109 MMOL/L (98-107) H Carbon Dioxide Level 22 MMOL/L (21-32) Anion Gap 12 mmol/L (5-15) Blood Urea Nitrogen 18 mg/dL (7-18) Creatinine 0.9 MG/DL (0.55-1.30) Estimat Glomerular Filtration Rate > 60 mL/min (>60) Glucose Level 111 MG/DL (74-106) H Calcium Level 9.4 MG/DL (8.5-10.1) Phosphorus Level 2.1 MG/DL (2.5-4.9) L Iron Level 15 ug/dL (50-175) L Ferritin 50 NG/ML (8-388) Plan Problems: (1) Hypokalemia (2) Atrial flutter (3) Abscess (4) Failure to thrive (5) Fistula (6) Hypertension (7) Sciatica neuralgia (8) Uncontrolled seizures (9) Forgetfulness (10) Chronic back pain (11) Overdose of opiate or related narcotic (12) Cellulitis of left leg (13) Episode of generalized weakness (14) Acute encephalopathy (15) Pericolonic abscess due to diverticulitis (16) Chronic pain of both knees (17) Sacral decubitus ulcer Assessment & Plan: patient presented on admission with a stage 3 sacral decubitus ulcer. states she has note been walking in sometime and mainly lay flat or up. can move but does not much no tenderness on palpation no drainage no signs of active infection discussed with patient in detail and care plan given turn q2h off load pressure wash daily with NS, apply therahoney gauze and foam dressing daily and prn saturation heel protectors nutritional optimization will follow with recs thank you (18) Ventral incisional hernia Assessment & Plan: reducible ventral hernia incisional. small 2cm defect, no bowel contents noted parastomal hernia large on llq, reducible recommend outpatient eval for management will monitor okay for diet activity as tolerated ostomy bag prn thank you Julian Iglesias Jan 23, 2020 17:40
--- NOTE | 2020-01-23 17:41 | NUR ---
NURSE NOTES:WOUND CARE NOTES:Pt presented on admission with Sacral DTPI with multiple small Unstageable and full thickness wounds within base of injury (L)8.2cm x (W)10.4cm. surrounding base of wound is maroon and indurated. Small amt serous exudate noted. Reabsorbing DTPI L ischium. Base os injury is dry with peeling black skin. No erythema or induration periwound. Both heels are firm and easily blanchable. Pt denied tenderness when each heel individually palpated. Both lower ext are edematous . Hemosiderin noted to distal L lower ext. No other skin breakdown noted. Pt educated on wound prevention and encouraged to frequently turn while in bed to relieve pressure off buttocks. encouraged to keep heels floated off mattress. Tx.Plan: Cleanse wound sacrum with Saline. Apply Therahoney. Apply Moisture Barrier Paste periwound.Cover with Optifoam drsg Daily and prn. Apply Cavilon Skin Barrier to both heels. Cover each heels with Optifoam drsg. Change every 7 days and prn. Reposition at least every 2hours or as tolerated. Off-load heels with pillow. Moisturize both lower ext with Phytoplex Skin Nourishing Lotion Daily.
--- NOTE | 2020-01-23 19:30 | NUR ---
NURSE NOTES: Report received from Tabatha ARCOS. Patient is awake and alert x 3. Patient noted to currently be on room air. Denies shortness of breath. Denies chest pain. Patient noted to have Desai catheter for retention draining clear yellow urine. Patient noted to have 20 robert in right wrist. No fluids ordered at this time. Was endorsed to Alexis ARCOS that plan is for patient to be discharged on January. Educated patient to call if needs to get up. Patient verbalized understanding. Call light in reach. Bed locked, alarmed, in lowest position. Will continue to follow plan of care.
--- NOTE | 2020-01-23 19:54 | NUR ---
HAND-OFF: Report given to JOSSELYN Correa.
[2020-01-23 20:00] VITALS: BP 112/59
[2020-01-23] MEDS: TraZODone 100mg tab ORAL SCH (20:39)
[2020-01-23] MEDS: Atorvastatin 20mg tab ORAL SCH (20:40)
[2020-01-24] VITALS: BP 143/78
[2020-01-24] MEDS: HydrALAZINE 50mg tab ORAL SCH ×3 (00:27→12:57)
[2020-01-24 04:00] VITALS: BP 145/78
[2020-01-24 06:32] LABS: BASOPHILS % (AUTO) 1.6 % (0.0-2.0); HEMATOCRIT 29.9 % (37.0-47.0); HEMOGLOBIN 9.2 G/DL (12.0-16.0); LYMPHOCYTES % (AUTO) 11.6 % (20.0-45.0); MEAN CORPUSCULAR VOLUME 74 FL (80-99); MONOCYTES % (AUTO) 12.2 % (1.0-10.0); NEUTROPHILS % (AUTO) 73.6 % (45.0-75.0); PLATELET COUNT 237 K/UL (150-450); RED BLOOD COUNT 4.05 M/UL (4.20-5.40); RED CELL DISTRIBUTION WIDTH 14.3 % (11.6-14.8); WHITE BLOOD COUNT 6.7 K/UL (4.8-10.8)
[2020-01-24 06:57] LABS: ANION GAP 9 mmol/L (5-15); BLOOD UREA NITROGEN 14 mg/dL (7-18); CALCIUM 9.1 MG/DL (8.5-10.1); CARBON DIOXIDE 25 MMOL/L (21-32); CHLORIDE 109 MMOL/L (98-107); CREATININE 0.9 MG/DL (0.55-1.30); POTASSIUM 3.8 MMOL/L (3.5-5.1); SODIUM 143 MMOL/L (136-145)
--- NOTE | 2020-01-24 07:32 | NUR ---
HAND-OFF: Report given to Kinza ARCOS.
[2020-01-24 08:00] VITALS: BP 165/88
--- NOTE | 2020-01-24 08:08 | NUR ---
NURSE NOTES: Patient awake, alert x3, forgetful; on room air, no sing of distress and shortness of breath; no sing of chest pain; IV Right-Wrist 20G flushes well; Colostomy at the Left lower quadrant; Desai in place, drains yellow urine; bed side Commod within reach; side rails up x2, breaks engaged, bed at lowest position; call light within reach; will keep monitoring.
[2020-01-24] MEDS: Doxazosin 4mg tab ORAL SCH (08:49)
[2020-01-24] MEDS: Phospha 250 Neutral tab ORAL SCH ×2 (08:49→12:57)
[2020-01-24] MEDS: Metoprolol Tartrate 100mg tab ORAL SCH (08:49)
[2020-01-24] MEDS: DULoxetine 30mg cap ORAL SCH (08:49)
[2020-01-24] MEDS: HYDROcodone/Acetamin 10/325 tab ORAL PRN (08:51)
[2020-01-24] MEDS: Heparin 5000 units/ml inj SUBQ SCH (08:51)
--- NOTE | 2020-01-24 08:57 | NUR ---
NURSE NOTES: Patient is a fall risk, certified nursing attendant Toya is aware; bed at lowest position and locked, bed alarm on, call light within reach; patient instructed to call for help; will keep monitoring.
--- NOTE | 2020-01-24 11:29 | NUR ---
CASE MANAGEMENT: INITIAL REVIEW 69YR OLD FEMALE BIBA FROM HOME CC: GENERALIZED WEAKNESS; FAILURE TO THRIVE; BODY PAIN X5 DAYS; DECREASE APPETITE PMH: AMS; POLYSUBSTANCE ABUSE SI:GENERALIZED WEAKNESS . HYPOKALEMIA . WOUNDS . FAILURE TO THRIVE 98.3 100 20 108/94 97% ON RA K+ 2.6 BUN 45 CA+ 10.2 MG 1.7 TCK 540 H/H 9.9/32.4 URINE OPIATES (+) URINE BENZO (+) IS:IVF NS BOLUS X1 IV KCL X1 TYLENOL PO X1 CHEST X-RAY-No acute cardiopulmonary disease. CT HEAD- No acute intracranial abnormality; Mild chronic senescent findings above. \: [facility]E [facility]G UN[facility] DCP: HOME WHEN STABLE CASE MANAGEMENT: REVIEW 01/23/20 SI:GENERALIZED WEAKNESS . HYPOKALEMIA . WOUNDS . FAILURE TO THRIVE 98.6 93 20 152/76 97% ON RA CL- 109 H/H 9.3/29.5 IS:HEPARIN SQ BID NORVASC PO QD CARDURA PO QD HYDRALAZINE PO Q6HR LOPRESSOR PO BID LIPITOR PO QHS NEURONTIN PO QHS PHOSPHA NEUTRAL PO TID DOOR MANAGER VIT PO QD \: [facility]G UN[facility] DCP: HOME WHEN STABLE PLAN: MONITOR BP WOUND CARE PLACEMENT- PATIENT AGREEABLE [facility]
--- NOTE | 2020-01-24 11:59 | Nephrology Progress Note ---
Assessment/Plan Plan #severe hyperkalemia- in the setting of decreased PO intake and thiazide use #Hypomagnesemia #Anemia #Generalized weakness, failure to thrive #HTN #HLD # s/p colostomy (hx of complicated diverticulitis) - DC - replete phos - check phos - monitor BMP - hold HCTZ - resume home Amlodipine 10mg daily and Metoprolol 100mg BID - hydralazine 50mg q6hr - continue Hydralazine PRN for SBP >160 - Continue to monitor - monitor hemoglobin - IV iron - PT/OT - dispo planning to SNF-> [facility] Subjective Subjective feeling better today less weak had one episode of emesis today Objective Objective Last 24 Hour Vital Signs Date Time Temp Pulse Resp B/P (MAP) Pulse Ox O2 Delivery O2 Flow Rate FiO2 01/24/20 09:21 98.0 01/24/20 09:00 Room Air 01/24/20 08:49 112 165/88 01/24/20 08:49 112 165/88 01/24/20 08:00 98.0 112 18 165/88 (113) 97 01/24/20 06:12 145/80 01/24/20 04:58 Room Air 01/24/20 04:00 99.2 101 22 145/78 (100) 95 01/24/20 00:27 143/78 01/24/20 00:00 98.6 99 24 143/78 (99) 95 01/23/20 21:00 Room Air 01/23/20 20:39 100 112/59 01/23/20 20:00 98.0 100 20 112/59 (76) 94 01/23/20 17:40 150/65 01/23/20 15:21 99.3 93 21 150/65 (93) 97 01/23/20 12:07 165/85 01/23/20 12:00 98.6 93 20 152/76 (101) 97 Intake and Output 01/23/20 01/24/20 19:00 07:00 Intake Total 225 ml Output Total 200 ml Balance 225 ml -200 ml IV Total 225 ml Output Urine Total 200 ml # Bowel Movements 2 Laboratory Tests 01/24/20 05:45: White Blood Count 6.7, Red Blood Count 4.05L, Hemoglobin 9.2L, Hematocrit 29.9L , Mean Corpuscular Volume 74L, Mean Corpuscular Hemoglobin 22.8L, Mean Corpuscular Hemoglobin Concent 30.9L, Red Cell Distribution Width 14.3, Platelet Count 237, Mean Platelet Volume 6.6, Neutrophils (%) (Auto) 73.6, Lymphocytes (%) (Auto) 11.6L, Monocytes (%) (Auto) 12.2H, Eosinophils (%) (Auto ) 1.0, Basophils (%) (Auto) 1.6, Sodium Level 143, Potassium Level 3.8, Chloride Level 109H, Carbon Dioxide Level 25, Anion Gap 9, Blood Urea Nitrogen 14, Creatinine 0.9, Estimat Glomerular Filtration Rate > 60, Glucose Level 115H , Calcium Level 9.1 Height (Feet): 5 Height (Inches): 5.00 Weight (Pounds): 217 Venkat Montes M.D. Jan 24, 2020 11:59
[2020-01-24 12:00] VITALS: BP 166/93
--- NOTE | 2020-01-24 12:56 | Surgery Progress Note ---
Surgery Progress Note Subjective Symptoms: improved Objective Last 24 Hour Vital Signs Date Time Temp Pulse Resp B/P (MAP) Pulse Ox O2 Delivery O2 Flow Rate FiO2 01/24/20 12:00 97.9 96 19 166/93 (117) 98 01/24/20 09:21 98.0 01/24/20 09:00 Room Air 01/24/20 08:49 112 165/88 01/24/20 08:49 112 165/88 01/24/20 08:00 98.0 112 18 165/88 (113) 97 01/24/20 06:12 145/80 01/24/20 04:58 Room Air 01/24/20 04:00 99.2 101 22 145/78 (100) 95 01/24/20 00:27 143/78 01/24/20 00:00 98.6 99 24 143/78 (99) 95 01/23/20 21:00 Room Air 01/23/20 20:39 100 112/59 01/23/20 20:00 98.0 100 20 112/59 (76) 94 01/23/20 17:40 150/65 01/23/20 15:21 99.3 93 21 150/65 (93) 97 I&O Intake and Output 01/23/20 01/24/20 19:00 07:00 Intake Total 225 ml Output Total 200 ml Balance 225 ml -200 ml IV Total 225 ml Output Urine Total 200 ml # Bowel Movements 2 Dressing: dry Wound: clean Cardiovascular: RSR Respiratory: clear, decreased breath sounds Abdomen: non-tender, present bowel sounds Extremities: no cyanosis Laboratory Tests Test 01/24/20 05:45 White Blood Count 6.7 K/UL (4.8-10.8) Red Blood Count 4.05 M/UL (4.20-5.40) L Hemoglobin 9.2 G/DL (12.0-16.0) L Hematocrit 29.9 % (37.0-47.0) L Mean Corpuscular Volume 74 FL (80-99) L Mean Corpuscular Hemoglobin 22.8 PG (27.0-31.0) L Mean Corpuscular Hemoglobin Concent 30.9 G/DL (32.0-36.0) L Red Cell Distribution Width 14.3 % (11.6-14.8) Platelet Count 237 K/UL (150-450) Mean Platelet Volume 6.6 FL (6.5-10.1) Neutrophils (%) (Auto) 73.6 % (45.0-75.0) Lymphocytes (%) (Auto) 11.6 % (20.0-45.0) L Monocytes (%) (Auto) 12.2 % (1.0-10.0) H Eosinophils (%) (Auto) 1.0 % (0.0-3.0) Basophils (%) (Auto) 1.6 % (0.0-2.0) Sodium Level 143 MMOL/L (136-145) Potassium Level 3.8 MMOL/L (3.5-5.1) Chloride Level 109 MMOL/L (98-107) H Carbon Dioxide Level 25 MMOL/L (21-32) Anion Gap 9 mmol/L (5-15) Blood Urea Nitrogen 14 mg/dL (7-18) Creatinine 0.9 MG/DL (0.55-1.30) Estimat Glomerular Filtration Rate > 60 mL/min (>60) Glucose Level 115 MG/DL (74-106) H Calcium Level 9.1 MG/DL (8.5-10.1) Plan Problems: (1) Hypokalemia (2) Atrial flutter (3) Abscess (4) Failure to thrive (5) Fistula (6) Hypertension (7) Sciatica neuralgia (8) Uncontrolled seizures (9) Forgetfulness (10) Chronic back pain (11) Overdose of opiate or related narcotic (12) Cellulitis of left leg (13) Episode of generalized weakness (14) Acute encephalopathy (15) Pericolonic abscess due to diverticulitis (16) Chronic pain of both knees (17) Sacral decubitus ulcer Assessment & Plan: patient presented on admission with a stage 3 sacral decubitus ulcer. states she has note been walking in sometime and mainly lay flat or up. can move but does not much no tenderness on palpation no drainage no signs of active infection discussed with patient in detail and care plan given turn q2h off load pressure wash daily with NS, apply therahoney gauze and foam dressing daily and prn saturation heel protectors nutritional optimization will follow with recs thank you (18) Ventral incisional hernia Assessment & Plan: reducible ventral hernia incisional. small 2cm defect, no bowel contents noted parastomal hernia large on llq, reducible recommend outpatient eval for management will monitor okay for diet activity as tolerated ostomy bag prn thank you Julian Iglesias Jan 24, 2020 12:56
[2020-01-24 12:57] VITALS: BP 166/93
--- NOTE | 2020-01-24 12:57 | NUR ---
DISCHARGE PLANNING: PATIENT HAS BEEN ACCEPTED [facility]: [facility] T: [phone] ~~ FOR NURSE TO NURSE REPORT F: [phone] ROOM# 20 A SKILLED NO DC ORDER AT THIS TIME
[2020-01-24] MEDS ORDERED: APRESOLINE50 MG ORAL (13:48)
[2020-01-24] MEDS ORDERED: PHOSPHA 250 NE250 M1 ORAL (13:48)
--- NOTE | 2020-01-24 13:52 | Discharge Summary ---
Discharge Summary Hospital Course Date of Admission Jan 21, 2020 at 20:19 Date of Discharge 01/24/20 Admitting Diagnosis Gen Weakness, failure to thrive HPI Hilaria Carrasco is a 69 year old female who was admitted on Jan 21, 2020 at 20:19 for Generalized Weakness/Failure To Thrive Consultations Nephrology, Cardiology Procedures None Hospital Course Mrs. Carrasco is a 69YO F with HTN, HLD, chronic pain, s/p colostomy (hx of complicated diverticulitis s/p colectomy) presenting with worsening poor appetite and generalized weakness. Inpatient medical work up is significant for hypokalemia (K:2.6) and elevation of the CK:540. She was admitted to the medical service, seen by Nephrology, started on IV fluids and electrolytes replacement. Seen by Cardiology, she was started on hydralazine for uncontrolled HTN. She will be discharged back to SNF on neutraphos #Generalized weakness #Failure to thrive #Hypoalbuminemia #Poor PO intake #Hypokalemia 2/2 to poor PO intake - resolved #Hypomagnesemia - resolved #Elevated serum Creatinine Kinase #Chronic microcytic anemia: #Decubitus Ulcer (III) #Essential HTN #HLD #Chronic pain I spent 35 minutes on this patient's discharge I spent an additional 35 minutes on review of medical records including prior records, consult notes, progress notes, procedures, imaging, labs, hemodynamics , and other clinical documentation. Discharge Medications New Medications: Hydralazine HCl (Hydralazine HCl) 50 Mg Tablet 50 MG ORAL Q6HR for 30 Days, #30 TAB Phosphorus (Phospha 250 Neutral Tablet) 250 Mg Tablet 250 MG ORAL THREE TIMES A DAY for 10 Days, #10 TAB Continued Medications: Amlodipine Besylate* (Amlodipine Besylate*) 10 Mg Tablet 10 MG ORAL DAILY, TAB Baclofen* (Baclofen*) 10 Mg Tablet 10 MG ORAL NEEDED, TAB Doxazosin Mesylate* (Doxazosin Mesylate*) 4 Mg Tablet 4 MG ORAL DAILY, TAB Duloxetine Hcl* (Cymbalta*) 60 Mg Capsule.dr 60 MG ORAL BID, CAP Gabapentin* (Gabapentin*) 300 Mg Capsule 300 MG ORAL BEDTIME, CAP Hydrocodone/Acetaminophen (Hydrocodon-Acetaminophn 10-325) 1 Ea Tab 1 TAB ORAL Q6H PRN for For Pain, #60 TAB 0 Refills Metoprolol Tartrate* (Metoprolol Tartrate*) 100 Mg Tablet 100 MG ORAL EVERY 12 HOURS, TAB Simvastatin (Zocor) 40 Mg Tablet 40 MG ORAL BEDTIME, TAB Discharge Condition Upon Discharge: stable Discharge Vital Signs Last Vital Signs Date Time Temp Pulse Resp B/P (MAP) Pulse Ox O2 Delivery O2 Flow Rate FiO2 01/24/20 12:57 166/93 01/24/20 12:00 97.9 96 19 98 01/24/20 09:00 Room Air Discharge Disposition Patient was discharged to SNF Discharge Diagnoses: (1) Hypokalemia (2) Failure to thrive (3) Episode of generalized weakness Marocs Pathak MD Jan 24, 2020 13:51
--- NOTE | 2020-01-24 14:22 | NUR ---
*-*DISCHARGE PLANNED*-* PATIENT HAS BEEN ACCEPTED AND WILL BE DISCHARGED TO: [facility] T: [phone] ~~ FOR NURSE TO NURSE REPORT ROOM# 20 A SKILLED [facility] TRANSPORTATION HAS BEEN SET FOR 3PM SPOKE WITH MOO Han SPOKE WITH DAUGHTER, ALMA NUNEZ WHO IS IN AGREEMENT TO DISCHARGE AND TRANSPORTATION.
--- NOTE | 2020-01-24 14:29 | NUR ---
NURSE NOTES: I received an order to remove Desai upon discharge from [facility].
--- NOTE | 2020-01-24 15:45 | NUR ---
NURSE NOTES: Patient discharge to [facility]; report given to JOSSELYN Schwartz at T; family notified of patient's discharge; IV access and name tag removed upon discharge; Colostomy bag changed; Wound care provided and picture taken; patient stable upon discharge; printed package given to [facility] personnel; patient is stable upon discharge;
--- NOTE | 2020-01-24 21:43 | Neurology Progress Note ---
Interim History Interim History ROS Limited/Unobtainable: No Interim History doing better, stronger, back to [facility] today Objective Physical Exam Last Vital Signs Date Time Temp Pulse Resp B/P (MAP) Pulse Ox O2 Delivery O2 Flow Rate FiO2 01/24/20 12:57 166/93 01/24/20 12:00 97.9 96 19 98 01/24/20 09:00 Room Air Laboratory Tests Test 01/24/20 05:45 White Blood Count 6.7 K/UL (4.8-10.8) Red Blood Count 4.05 M/UL (4.20-5.40) L Hemoglobin 9.2 G/DL (12.0-16.0) L Hematocrit 29.9 % (37.0-47.0) L Mean Corpuscular Volume 74 FL (80-99) L Mean Corpuscular Hemoglobin 22.8 PG (27.0-31.0) L Mean Corpuscular Hemoglobin Concent 30.9 G/DL (32.0-36.0) L Red Cell Distribution Width 14.3 % (11.6-14.8) Platelet Count 237 K/UL (150-450) Mean Platelet Volume 6.6 FL (6.5-10.1) Neutrophils (%) (Auto) 73.6 % (45.0-75.0) Lymphocytes (%) (Auto) 11.6 % (20.0-45.0) L Monocytes (%) (Auto) 12.2 % (1.0-10.0) H Eosinophils (%) (Auto) 1.0 % (0.0-3.0) Basophils (%) (Auto) 1.6 % (0.0-2.0) Sodium Level 143 MMOL/L (136-145) Potassium Level 3.8 MMOL/L (3.5-5.1) Chloride Level 109 MMOL/L (98-107) H Carbon Dioxide Level 25 MMOL/L (21-32) Anion Gap 9 mmol/L (5-15) Blood Urea Nitrogen 14 mg/dL (7-18) Creatinine 0.9 MG/DL (0.55-1.30) Estimat Glomerular Filtration Rate > 60 mL/min (>60) Glucose Level 115 MG/DL (74-106) H Calcium Level 9.1 MG/DL (8.5-10.1) Head: normocophalic Neck: no rigidity EENT: benign Neurologic Exam Mental Status: awake, alert Motor System: strength 5/5 Objective 5-/5 all over, non focal disoriented, confused, tangential Impression/Recommendations Problems: (1) Hypokalemia (2) Atrial flutter (3) Abscess (4) Failure to thrive (5) Fistula (6) Hypertension (7) Sciatica neuralgia (8) Uncontrolled seizures (9) Forgetfulness (10) Chronic back pain (11) Overdose of opiate or related narcotic (12) Cellulitis of left leg (13) Episode of generalized weakness (14) Acute encephalopathy (15) Pericolonic abscess due to diverticulitis (16) Chronic pain of both knees (17) Sacral decubitus ulcer (18) Ventral incisional hernia Status: stable Diagnostic Impression Acute encephalopathy with gen weakness, likely metabolic Non focal no signs of parkinsonism, possible underlying cognitive decline Cont exc medical support PT OT Del precautions Neuropsych outpatient Manolo Sauceda MD Jan 24, 2020 21:43
== END 2020-01-24 16:01 | DRG 640 ==
LOC: EDBD 18:57 → EMR 19:29 → 4E 20:19 → EDBEDREQSVC 20:25 → EDBEDREQ 21:55 → 4E 01-22 20:42
DX: E87.6 Hypokalemia (principal); L89.153 Pressure ulcer of sacral region, stage 3; G93.41 Metabolic encephalopathy; I48.92 Unspecified atrial flutter; L03.116 Cellulitis of left lower limb; R62.7 Adult failure to thrive; Z88.8 Allergy status to other drugs, medicaments and biological substances; I10 Essential (primary) hypertension; E88.09 Other disorders of plasma-protein metabolism, not elsewhere classified; E83.42 Hypomagnesemia; E78.5 Hyperlipidemia, unspecified; G89.29 Other chronic pain; D64.9 Anemia, unspecified; Z93.3 Colostomy status; M54.30 Sciatica, unspecified side; K43.9 Ventral hernia without obstruction or gangrene
CPT/HCPCS: 36415; 70450; 71045; 80048; 80053; 80307; 81003; 82248; 82550; 82553; 82728; 83540; 83605; 83735; 84100; 84484; 85025; 93005; 96361; 96365; 99285; C9399; J7030; J8499

== ENCOUNTER 2020-03-26 18:47 | Inpatient (IN) | payer MEDICARE, MEDICAID ==
[~2020-03-26] VITALS: Ht 172.7 cm; Wt 133.0 kg
[2020-03-26 18:47] VITALS: BP 108/53
[~2020-03-26 18:47] MED LIST changes: +APRESOLINE50 MG ORAL; +PHOSPHA 250 NE250 M1 ORAL
--- NOTE | 2020-03-26 18:47 | NUR ---
ED Nurse Note: Patient SELAM RA68 from home c/o altered mental status. Per EMs, pt is more altered than usual and lethargic. Pt AAOx2, able to answer questions. Pt has a colostomy bag on right lower abdomen. No SOB. Afebrile. Pt placed on a gown and hooked on registered nurse cardiac telemetry.
--- NOTE | 2020-03-26 19:10 | NUR ---
HAND-OFF: Report given to Morgan RN. Endorsed plan of care.
--- NOTE | 2020-03-26 19:11 | NUR ---
ED Nurse Note: Report received from Miquel. Patient is on bed awake on semi fowlers position. Patient is lethargic but is arousable and communicates when asked.
--- NOTE | 2020-03-26 19:20 | NUR ---
ED Nurse Note: facilities technician at bedside
[2020-03-26 19:56] LABS: ANION GAP 23 mmol/L (5-15); BLOOD UREA NITROGEN 83 mg/dL (7-18); CALCIUM 9.4 MG/DL (8.5-10.1); CARBON DIOXIDE 15 MMOL/L (21-32); CHLORIDE 99 MMOL/L (98-107); CREATININE 6.6 MG/DL (0.55-1.30); POTASSIUM 5.8 MMOL/L (3.5-5.1); SODIUM 137 MMOL/L (136-145)
[2020-03-26 19:57] LABS: HEMATOCRIT 50.4 % (37.0-47.0); MEAN CORPUSCULAR VOLUME 88 FL (80-99); PLATELET COUNT 241 K/UL (150-450); RED BLOOD COUNT 5.73 M/UL (4.20-5.40); RED CELL DISTRIBUTION WIDTH 21.4 % (11.6-14.8); WHITE BLOOD COUNT 10.9 K/UL (4.8-10.8)
[2020-03-26 20:01] LABS: BASOPHILS % (AUTO) 0.6 % (0.0-2.0); LYMPHOCYTES % (AUTO) 4.1 % (20.0-45.0); MONOCYTES % (AUTO) 5.6 % (1.0-10.0); NEUTROPHILS % (AUTO) 89.7 % (45.0-75.0)
--- NOTE | 2020-03-26 20:04 | Emergency Room Report ---
History of Present Illness General Chief Complaint: Altered Level of Consciousness Source: Family Member, EMS Present Illness HPI Patient presents with complaints of worsening symptoms patient herself appears Chronically debilitated I did make contact with the patient's reports that the patient was at a nursing facility for over a month Upon coming home she appeared to be weak patient was also taking Increased numbers of her pain medication and became more unresponsive last night around 10 PM And as the patient was difficult to handle Appears to be more confused dehydrated paramedics were summoned There was no reports of vomiting or diarrhea Allergies: Coded Allergies: LISINOPRIL (Verified Allergy, Unknown, Hives, 04/12/14) COVID-19 Screening Contact w/high risk pt: No Recent Travel to affected area: No Experienced COVID-19 symptoms?: No COVID-19 Testing performed DIRECTOR PRODUCT: No Patient History Limited by: medical condition Past Medical History: see triage record Reviewed Nursing Documentation: PMH: Agreed; PSxH: Agreed Nursing Documentation-PMH Hx Cardiac Problems: Yes Hx Hypertension: Yes Hx Pacemaker: No - CHRONIC NECK PAIN Hx Diabetes: Yes Hx Cancer: No Hx Neurological Problems: Yes Hx Seizures: Yes Review of Systems All Other Systems: limited - Other than the ones mentioned in the history of present illness all others are reviewed however they do stay limited due to the patient's mental status Physical Exam Vital Signs Date Time Temp Pulse Resp B/P (MAP) Pulse Ox O2 Delivery O2 Flow Rate FiO2 03/26/20 18:40 99.0 115 20 108/53 (71) 98 Room Air Sp02 EP Interpretation: reviewed, normal General Appearance: other - Patient appears chronically ill Head: normocephalic, atraumatic Eyes: bilateral eye PERRL, bilateral eye EOMI ENT: EOM grossly intact Neck: supple Respiratory: no respiratory distress, no retraction, crackles - both lower lobes Cardiovascular #1: tachycardia Gastrointestinal: non tender, soft Musculoskeletal: other - Patient appears chronically debilitated both lower extremities are extended Neurologic: other - Some verbal response, but chronic disability Skin: no rash Lymphatic: normal inspection Procedures Critical Care Time Critical Care Time 50 minutes for multiple re-evaluations critical presentation concerning for endorgan failure and possible not including any procedural time Medical Decision Making Diagnostic Impression: Primary Impression: Hyperkalemia Additional Impressions: Dehydration Sepsis ER Course Patient is a fairly complex patient with multiple differential to consideration including but not limited to cardiac cardiopulmonary , infectious ,neurological , neurosurgical and vascular emergencies Patient had extensive blood work initiated and imaging Continues to maintain appropriate airway and respiration Patient's total CK significantly elevated Urine sample also shows infectious process Patient's x-ray does not show any acute process Patient further hydrated antibiotics are provided Patient admitted for further inpatient care Labs Test 03/26/20 19:15 White Blood Count 10.9 K/UL (4.8-10.8) Red Blood Count 5.73 M/UL (4.20-5.40) Hemoglobin 14.0 G/DL (12.0-16.0) Hematocrit 50.4 % (37.0-47.0) Mean Corpuscular Volume 88 FL (80-99) Mean Corpuscular Hemoglobin 24.4 PG (27.0-31.0) Mean Corpuscular Hemoglobin Concent 27.8 G/DL (32.0-36.0) Red Cell Distribution Width 21.4 % (11.6-14.8) Platelet Count 241 K/UL (150-450) Mean Platelet Volume 10.2 FL (6.5-10.1) Neutrophils (%) (Auto) 89.7 % (45.0-75.0) Lymphocytes (%) (Auto) 4.1 % (20.0-45.0) Monocytes (%) (Auto) 5.6 % (1.0-10.0) Eosinophils (%) (Auto) 0.0 % (0.0-3.0) Basophils (%) (Auto) 0.6 % (0.0-2.0) Sodium Level 137 MMOL/L (136-145) Potassium Level 5.8 MMOL/L (3.5-5.1) Chloride Level 99 MMOL/L (98-107) Carbon Dioxide Level 15 MMOL/L (21-32) Anion Gap 23 mmol/L (5-15) Blood Urea Nitrogen 83 mg/dL (7-18) Creatinine 6.6 MG/DL (0.55-1.30) Estimat Glomerular Filtration Rate 7.5 mL/min (>60) Glucose Level 193 MG/DL (74-106) Lactic Acid Level 5.40 mmol/L (0.4-2.0) Calcium Level 9.4 MG/DL (8.5-10.1) Total Bilirubin 0.6 MG/DL (0.2-1.0) Aspartate Amino Transf (AST/SGOT) 152 U/L (15-37) Alanine Aminotransferase (ALT/SGPT) 30 U/L (12-78) Alkaline Phosphatase 264 U/L (46-116) Creatine Kinase MB 112.0 NG/ML (0.0-3.6) Creatine Kinase MB Relative Index 1.1 Troponin I 0.004 ng/mL (0.000-0.056) Pro-B-Type Natriuretic Peptide 2592 pg/mL (0-125) Total Protein 8.1 G/DL (6.4-8.2) Albumin 3.2 G/DL (3.4-5.0) Globulin 4.9 g/dL Albumin/Globulin Ratio 0.7 (1.0-2.7) Lipase 83 U/L (73-393) Rhythm Strip Diag. Results EP Interpretation: yes Rate: 110 Rhythm: no PVC's, no ectopy, other - Sinus tach Chest X-Ray Diagnostic Results Chest X-Ray Diagnostic Results : Chest X-Ray Ordered: Yes # of Views/Limited/Complete: 1 View Indication: Chest Pain EP Interpretation: Yes Interpretation: no consolidation, no effusion, no pneumothorax Impression: No acute disease Electronically Signed by: Neo Johnson DO Last Vital Signs Date Time Temp Pulse Resp B/P (MAP) Pulse Ox O2 Delivery O2 Flow Rate FiO2 03/26/20 18:47 99.0 115 20 108/53 98 Room Air Status: improved Disposition: ADMITTED INPATIENT Condition: Serious Referrals: NOT CHOSEN IPA/,REFERRING (PCP) Neo Johnson DO Mar 26, 2020 20:04
[2020-03-26 20:10] LABS: ALANINE AMINOTRANSFERASE 30 U/L (12-78); ALBUMIN 3.2 G/DL (3.4-5.0); ALBUMIN/GLOBULIN RATIO 0.7 (1.0-2.7); ALKALINE PHOSPHATASE 264 U/L (46-116); ASPARTATE AMINO TRANSFERASE 152 U/L (15-37); BILIRUBIN,TOTAL 0.6 MG/DL (0.2-1.0)
[2020-03-26] MEDS ORDERED: cefTRIAXone 1 GM in NS 55 ML IVPB ONE (20:30)
[2020-03-26] MEDS ORDERED: Insulin Human Regular 100units/ml 3ml IV ONE (20:30)
[2020-03-26 20:40] VITALS: BP 138/82
[2020-03-26 20:57] LABS: CREATINE KINASE > 10000 U/L (26-308)
[2020-03-26] MEDS ORDERED: Miralax 17gm pkt ORAL PRN (21:15)
[2020-03-26] MEDS ORDERED: Milk of Magnesia 30ml Ud ORAL PRN (21:15)
[2020-03-26] MEDS ORDERED: Mylanta II UD 30ml ORAL PRN (21:15)
[2020-03-26] MEDS ORDERED: LORazepam Inj 2mg/ml 1ml IV PRN (21:15)
[2020-03-26] MEDS ORDERED: Morphine Sulfate 4mg/ml Inj (IV USE ONLY) IVP PRN (21:15)
[2020-03-26] MEDS ORDERED: Metoclopramide 10mg/2ml Inj IVP PRN (21:15)
--- NOTE | 2020-03-26 21:26 | History & Physical ---
History and Physical History & Physicial Discussed case with ED and Dr. Montes her food and beverage controller, chart, labs, flowsheet 69 y/o AA female who resides at a SNF sent into the ED for acute encephalopathy and lethargy. Labs reveal VENTURA (baseline creat 1.4) with hyperkalemia, likely all pre-renal due to dehydration. UA is pending but likely source of dehydration is sepsis, and given SNF, will cover empirically with cefepime until UA/cultures finalized. Cont hydration, and follow renal function carefully , will remain on tele due to hyperkalemia. Malathi Mendez MD Mar 26, 2020 21:26
[2020-03-26 22:40] VITALS: BP 131/68
[2020-03-27] VITALS (15 sets, daily range): BP systolic 90–133; BP diastolic 47–101
--- NOTE | 2020-03-27 03:50 | NUR ---
ED Nurse Note: Colostomy set and bag changed. Stoma is reddish and moist. No signs of bleeding noted.
--- NOTE | 2020-03-27 05:15 | NUR ---
GINNA, PATIENTS [phone]
--- NOTE | 2020-03-27 05:43 | NUR ---
ED Nurse Note: Patient asleep on bed. Patient was arousable when talked to. Not in distress
--- NOTE | 2020-03-27 07:26 | NUR ---
HAND-OFF: Report given to Keturah Dockery
--- NOTE | 2020-03-27 07:59 | NUR ---
ED Nurse Note: Morning labs sent. Noted pt had skin tear on left buttock.
[2020-03-27 08:16] LABS: BASOPHILS % (AUTO) 0.5 % (0.0-2.0); HEMATOCRIT 41.2 % (37.0-47.0); HEMOGLOBIN 13.1 G/DL (12.0-16.0); LYMPHOCYTES % (AUTO) 5.9 % (20.0-45.0); MEAN CORPUSCULAR VOLUME 81 FL (80-99); MONOCYTES % (AUTO) 14.7 % (1.0-10.0); NEUTROPHILS % (AUTO) 78.9 % (45.0-75.0); PLATELET COUNT 209 K/UL (150-450); RED BLOOD COUNT 5.11 M/UL (4.20-5.40); WHITE BLOOD COUNT 8.6 K/UL (4.8-10.8)
[2020-03-27 08:23] LABS: ANION GAP 16 mmol/L (5-15); BLOOD UREA NITROGEN 86 mg/dL (7-18); CALCIUM 8.2 MG/DL (8.5-10.1); CARBON DIOXIDE 18 MMOL/L (21-32); CHLORIDE 106 MMOL/L (98-107); POTASSIUM 5.1 MMOL/L (3.5-5.1); SODIUM 140 MMOL/L (136-145)
--- NOTE | 2020-03-27 08:47 | NUR ---
ED Nurse Note: Noted heart rate of 190-200. Dr Lewis was notified. EKG done. Waiting for new orders.
[2020-03-27] MEDS: Metoprolol Tartrate 5mg/5ml Inj IVP SCH ×3 (08:50→09:03)
--- NOTE | 2020-03-27 08:55 | NUR ---
ED Nurse Note: Dr Montes at the bed side and ordered kayexalate [address] Montes aware of EKG and heart rate with lopressor given per ERMD order.
[2020-03-27] MEDS ORDERED: Sodium Polystyrene Sulfonate 15gm Powder ORAL ONE (09:00)
[2020-03-27] MEDS ORDERED: Cefepime HCl 1 GM in D5W 55 ML IVPB ONE (09:00)
[2020-03-27] MEDS ORDERED: D5W IVPB SCH (09:00)
[2020-03-27] MEDS ORDERED: CEFEPIME IVPB SCH (09:00)
[2020-03-27] MEDS: Docusate 100mg cap ORAL SCH ×2 (09:22→21:00)
[2020-03-27] MEDS: Metoprolol Tartrate 100mg tab ORAL SCH ×2 (09:22→21:00)
[2020-03-27] MEDS: Heparin 5000 units/ml inj SUBQ SCH ×2 (09:23→22:01)
[2020-03-27] MEDS ORDERED: Cefepime HCl 1 GM in D5W 55 ML IVPB SCH (09:45)
--- NOTE | 2020-03-27 11:28 | NUR ---
ED Nurse Note:pt. became MD GAMA notified and placed on non-rebreather
--- NOTE | 2020-03-27 11:35 | NUR ---
ED Nurse Note:pt. got intubated by dr. Lewis at 1135 and placed on mech vent, ET size 8, 26cm at the lip, pt. was given 20mg of Ethimodate per md order
--- NOTE | 2020-03-27 12:44 | Diagnostic Imaging Report ---
Indication: Chest pain Technique: One view of the chest Comparison: 01/21/2020 Findings: There is some atelectasis at the left lung base. The heart is upper limits normal in size. The aorta is tortuous and calcified. Impression: Left basilar atelectasis. No acute process otherwise
--- NOTE | 2020-03-27 12:45 | NUR ---
ED Nurse Note: Dr Lewis notified of SBP 70-80mmhg. Started IV fluid bolus at this time.
--- NOTE | 2020-03-27 13:08 | Consultation ---
History of Present Illness General Chief Complaint: Altered Level of Consciousness Present Illness HPI This is a 69 year old female with past medical history of CKD III, chronic pain with opiod dependence, DM, HTN, obesity, recent discharged from SNF presented to the ED with weakness. while in the ED she became more lethargic,confused and went into afib with RVR. she was given multiple doses of metop. She was eventually intubated for airway protection. labs notable for hyperkalemi, Chaitanya, rhabdomyalysis and UTI. She was noted to have lactic acidosis. Allergies: Coded Allergies: LISINOPRIL (Verified Allergy, Unknown, Hives, 04/12/14) Medication History Scheduled Amlodipine Besylate* (Amlodipine Besylate*), 10 MG ORAL DAILY, (Reported) Baclofen* (Baclofen*), 10 MG ORAL NEEDED, (Reported) Doxazosin Mesylate* (Doxazosin Mesylate*), 4 MG ORAL DAILY, (Reported) Duloxetine Hcl* (Cymbalta*), 60 MG ORAL BID, (Reported) Gabapentin* (Gabapentin*), 300 MG ORAL BEDTIME, (Reported) Hydralazine HCl (Hydralazine HCl), 50 MG ORAL Q6HR Metoprolol Tartrate* (Metoprolol Tartrate*), 100 MG ORAL EVERY 12 HOURS, ( Reported) Phosphorus (Phospha 250 Neutral Tablet), 250 MG ORAL THREE TIMES A DAY Simvastatin (Zocor), 40 MG ORAL BEDTIME, (Reported) Trazodone* (Trazodone*), 200 MG ORAL BEDTIME, (Reported) Scheduled PRN Hydrocodone/Acetaminophen (Hydrocodon-Acetaminophn 10-325), 1 TAB ORAL Q6H PRN for For Pain, (Reported) Patient History Healthcare decision maker Resuscitation status Advanced Directive on File Review of Systems ROS Narrative Unable to obtain due to intubation. Physical Exam General Appearance: other - intubated Lines, tubes and drains: peripheral HEENT: normocephalic, atraumatic Neck: non-tender, normal alignment, supple Respiratory/Chest: lungs clear Cardiovascular/Chest: normal peripheral pulses, tachycardia, irregularly irregular Abdomen: soft Skin Exam: normal pigmentation Neurologic: disoriented Last 24 Hour Vital Signs Date Time Temp Pulse Resp B/P (MAP) Pulse Ox O2 Delivery O2 Flow Rate FiO2 03/27/20 11:56 97 20 100 03/27/20 11:40 97 33 114/80 100 Mechanical Ventilator 100 03/27/20 09:26 119 126/101 03/27/20 09:22 119 126/101 03/27/20 09:09 119 18 126/101 99 Nasal Cannula 2.0 03/27/20 09:03 146 126/101 03/27/20 08:57 166 118/75 03/27/20 08:50 195 115/74 03/27/20 08:35 195 22 115/74 99 Nasal Cannula 2.0 03/27/20 05:42 99.0 136 21 131/69 99 Room Air 03/27/20 03:40 98.2 138 20 128/82 98 Room Air 03/27/20 01:40 98.2 124 20 133/70 98 Room Air 03/26/20 22:40 98.2 120 20 131/68 98 Room Air 03/26/20 20:40 99.0 118 20 138/82 98 Room Air 03/26/20 18:47 99.0 115 20 108/53 98 Room Air 03/26/20 18:47 115 20 Room Air 03/26/20 18:40 99.0 115 20 108/53 (71) 98 Room Air Intake and Output 03/26/20 03/27/20 19:00 07:00 Output Total 600 ml Balance -600 ml Output Urine Total 500 ml Stool Total 100 ml Laboratory Tests Test 03/26/20 19:15 03/26/20 21:15 03/27/20 07:45 White Blood Count 10.9 K/UL (4.8-10.8) H 8.6 K/UL (4.8-10.8) Red Blood Count 5.73 M/UL (4.20-5.40) H 5.11 M/UL (4.20-5.40) Hemoglobin 14.0 G/DL (12.0-16.0) 13.1 G/DL (12.0-16.0) Hematocrit 50.4 % (37.0-47.0) H 41.2 % (37.0-47.0) Mean Corpuscular Volume 88 FL (80-99) 81 FL (80-99) Mean Corpuscular Hemoglobin 24.4 PG (27.0-31.0) L 25.6 PG (27.0-31.0) L Mean Corpuscular Hemoglobin Concent 27.8 G/DL (32.0-36.0) L 31.7 G/DL (32.0-36.0) L Red Cell Distribution Width 21.4 % (11.6-14.8) H 19.0 % (11.6-14.8) H Platelet Count 241 K/UL (150-450) 209 K/UL (150-450) Mean Platelet Volume 10.2 FL (6.5-10.1) H 7.2 FL (6.5-10.1) Neutrophils (%) (Auto) 89.7 % (45.0-75.0) H 78.9 % (45.0-75.0) H Lymphocytes (%) (Auto) 4.1 % (20.0-45.0) L 5.9 % (20.0-45.0) L Monocytes (%) (Auto) 5.6 % (1.0-10.0) 14.7 % (1.0-10.0) H Eosinophils (%) (Auto) 0.0 % (0.0-3.0) 0.0 % (0.0-3.0) Basophils (%) (Auto) 0.6 % (0.0-2.0) 0.5 % (0.0-2.0) Sodium Level 137 MMOL/L (136-145) 140 MMOL/L (136-145) Potassium Level 5.8 MMOL/L (3.5-5.1) H 5.1 MMOL/L (3.5-5.1) Chloride Level 99 MMOL/L (98-107) 106 MMOL/L (98-107) Carbon Dioxide Level 15 MMOL/L (21-32) L 18 MMOL/L (21-32) L Anion Gap 23 mmol/L (5-15) H 16 mmol/L (5-15) H Blood Urea Nitrogen 83 mg/dL (7-18) H 86 mg/dL (7-18) H Creatinine 6.6 MG/DL (0.55-1.30) H 6.0 MG/DL (0.55-1.30) H Estimat Glomerular Filtration Rate 7.5 mL/min (>60) 8.5 mL/min (>60) Glucose Level 193 MG/DL (74-106) H 142 MG/DL (74-106) H Lactic Acid Level 5.40 mmol/L (0.4-2.0) H 3.20 mmol/L (0.66-2.22) H Calcium Level 9.4 MG/DL (8.5-10.1) 8.2 MG/DL (8.5-10.1) L Total Bilirubin 0.6 MG/DL (0.2-1.0) Aspartate Amino Transf (AST/SGOT) 152 U/L (15-37) H Alanine Aminotransferase (ALT/SGPT) 30 U/L (12-78) Alkaline Phosphatase 264 U/L (46-116) H Total Creatine Kinase > 79064 U/L (26-308) H Creatine Kinase MB 112.0 NG/ML (0.0-3.6) H Creatine Kinase MB Relative Index 1.1 Troponin I 0.004 ng/mL (0.000-0.056) Pro-B-Type Natriuretic Peptide 2592 pg/mL (0-125) H Total Protein 8.1 G/DL (6.4-8.2) Albumin 3.2 G/DL (3.4-5.0) L Globulin 4.9 g/dL Albumin/Globulin Ratio 0.7 (1.0-2.7) L Lipase 83 U/L (73-393) Magnesium Level 2.4 MG/DL (1.8-2.4) Height (Feet): 5 Height (Inches): 8.00 Weight (Pounds): 250 Medications Current Medications Medications (Trade) Dose Ordered Sig/Debbie Route PRN Reason Start Time Stop Time Status Last Admin Dose Admin Acetaminophen (Tylenol) 650 mg Q4H PRN ORAL Mild Pain (Pain Scale 1-3) 03/26/20 21:15 04/25/20 21:14 Acetaminophen (Tylenol) 650 mg Q4H PRN ORAL Temp >100.5 03/26/20 21:15 04/25/20 21:14 Al Hydroxide/Mg Hydroxide (Mylanta II) 30 ml Q6H PRN ORAL dyspepsia 03/26/20 21:15 04/25/20 21:14 Amlodipine Besylate (Norvasc) 10 mg DAILY ORAL 03/27/20 09:00 04/26/20 08:59 03/27/20 09:26 Bisacodyl (Dulcolax) 10 mg HSPRN PRN RECTAL Constipation 03/26/20 21:15 06/24/20 21:14 Cefepime HCl 1 gm/ Dextrose 55 ml @ 110 mls/hr Q24H IVPB 03/27/20 09:45 04/03/20 09:44 03/27/20 09:40 Dextrose (Dextrose 50%) 25 ml Q30M PRN IV Hypoglycemia 03/26/20 21:15 06/24/20 21:14 Dextrose (Dextrose 50%) 50 ml Q30M PRN IV Hypoglycemia 03/26/20 21:15 06/24/20 21:14 Diphenhydramine HCl (Benadryl) 25 mg Q6H PRN ORAL Itching/Pruritis 03/26/20 21:15 04/25/20 21:14 Docusate Sodium (Colace) 100 mg EVERY 12 HOURS ORAL 03/27/20 09:00 04/26/20 08:59 03/27/20 09:22 Gabapentin (Neurontin) 300 mg BEDTIME ORAL 03/27/20 21:00 04/26/20 20:59 Heparin Sodium (Porcine) (Heparin 5000 units/ml) 5,000 units EVERY 12 HOURS SUBQ 03/27/20 09:00 05/11/20 08:59 03/27/20 09:23 Lorazepam (Ativan 2mg/ml 1ml) 0.5 mg Q4H PRN IV For Anxiety 03/26/20 21:15 04/02/20 21:14 Magnesium Hydroxide (Mom) 30 ml HSPRN PRN ORAL Constipation 03/26/20 21:15 04/25/20 21:14 Metoclopramide HCl (Reglan) 10 mg Q6H PRN IVP Nausea & Vomiting 03/26/20 21:15 04/25/20 21:14 Metoprolol Tartrate (Lopressor) 5 mg Q5MIN X 3 IVP 03/27/20 09:00 06/25/20 08:59 03/27/20 09:03 Metoprolol Tartrate (Lopressor) 100 mg EVERY 12 HOURS ORAL 03/27/20 09:00 06/25/20 08:59 03/27/20 09:22 Morphine Sulfate (Morphine Sulfate) 2 mg Q4H PRN IVP Moderate Pain (Pain Scale 4-6) 03/26/20 21:15 04/02/20 21:14 Morphine Sulfate (Morphine Sulfate) 4 mg Q4H PRN IVP Severe Pain (Pain Scale 7-10) 03/26/20 21:15 04/02/20 21:14 Ondansetron HCl (Zofran) 4 mg Q6H PRN IVP Nausea & Vomiting 03/26/20 21:15 04/25/20 21:14 Polyethylene Glycol (Miralax) 17 gm HSPRN PRN ORAL Constipation 03/26/20 21:15 04/25/20 21:14 Sodium Chloride 1,000 ml @ 200 mls/hr Q5H IV 03/27/20 12:45 04/26/20 12:44 03/27/20 12:49 Sodium Chloride 1,000 ml @ 999 mls/hr Q1H1M ONCE IV 03/27/20 12:45 03/27/20 13:45 03/27/20 12:49 Temazepam (Restoril) 15 mg HSPRN PRN ORAL Insomnia 03/26/20 21:15 04/02/20 21:14 Assessment/Plan Diagnosis [place] I: #CHAITANYA due to ATN in the setting of rhabdo- on CKD #hyperkalemia #Rhabdo #UTI sepsis #Lactic acidsis #AMS - toxic metabolic encephalopathy #Hypoxemic resp failure #afib with RVR #HLD #Obesity - admit to ICU - IVF - monitor K,bmp - will discuss need for HD if no improvement with hydration - weiss placed - strict I&Os - vent management per Dr. Cordova - cardiology eval - 2d echo - ID consult - vanco and cefepime - follow cx - monitor BMP, mag and phos daily Time spent over 70 minutes- greater than 50% on care coordination and counseling Venkat Montes M.D. Mar 27, 2020 13:08
[2020-03-27] MEDS ORDERED: Sodium Bicarbonate 50ml Carp IV SCH ×2 (13:09→22:45)
--- NOTE | 2020-03-27 13:24 | Emergency Room Report ---
History of Present Illness General Chief Complaint: Altered Level of Consciousness Source: Family Member, EMS Present Illness Allergies: Coded Allergies: LISINOPRIL (Verified Allergy, Unknown, Hives, 04/12/14) COVID-19 Screening Contact w/high risk pt: No Recent Travel to affected area: No Experienced COVID-19 symptoms?: No COVID-19 Testing performed WOOD GETTER: No Nursing Documentation-PMH Hx Cardiac Problems: Yes Hx Hypertension: Yes Hx Pacemaker: No - CHRONIC NECK PAIN Hx Diabetes: Yes Hx Cancer: No Hx Neurological Problems: Yes Hx Seizures: Yes Physical Exam Vital Signs Date Time Temp Pulse Resp B/P (MAP) Pulse Ox O2 Delivery O2 Flow Rate FiO2 03/26/20 18:40 99.0 115 20 108/53 (71) 98 Room Air 03/27/20 08:35 2.0 03/27/20 11:40 100 Procedures Critical Care Time Critical Care Time i. I feel this is a highly complex case requiring extensive working including EKG/Rhythm strip, Xray/CT/US, Blood/urine lab work, repeat exams while in ED, and administration of strong opiates/narcotics for pain control, admission to hospital or close patient follow up. Total time: 60 min bedside evaluation and treatment excludes procedures (EKG). Reason for critical care: afib with RVR, respiratory distress Possible complications: hypotension, hypertension, [place], shock, arrhythmias, metabolic acidosis, end organ damage, respiratory failure. Interventions: loressor x 3, intubation Course: Patient pending bed assignment. Patient tachycardic to the low 130s but suddenly became tachycardic to 1 6170. EKG shows A. fib with RVR. Given Lopressor x3 with cardioversion achieved. While awaiting bed assignment patient became hypoxic and appeared to be apneic. Patient required emergent intubation. Patient intubated. Currently awaiting ICU bed Consultations: nursing staff, EMS, family Performed by: Dr Lewis Tolerated well condition = critical j. because of unstable vital signs this patient had a condition that could potentially threaten life or limb. I feel this is a critical patient who required my full attention while patient was considered critical. Total Critical Care Time excluding procedures was greater than 60 minutes Intubation Intubation : Consent: Emergent Intubation Method: orotracheal Tube Size (cm): 7.5 Medications: Etomidate Breath Sounds after Intubation: equal Intubation Complications: no complications Post Intubation Xray: Yes Attempts: One Patient Tolerated: Well Complications: None Medical Decision Making Diagnostic Impression: Primary Impression: Hyperkalemia Additional Impressions: Sepsis Dehydration ER Course Dr Raineyent pending bed assignment. Patient initially seen and evaluated by Dr Johnson. Please see his note for full history and physical Patient tachycardic on monitor between 115 and 130. Patient then developed tachycardia to the 180s to 200. EKG shows A. fib with RVR. I ordered Lopressor x3 with cardioversion achieved Patient suddenly became stridorous and appeared apneic with hypoxia. I intubated patient emergently for airway protection. Chest x-ray confirms ET tube placement. Patient will be admitted to ICU Last Vital Signs Date Time Temp Pulse Resp B/P (MAP) Pulse Ox O2 Delivery O2 Flow Rate FiO2 03/27/20 11:56 97 20 100 03/27/20 11:40 114/80 100 Mechanical Ventilator 03/27/20 09:09 2.0 03/27/20 05:42 99.0 Status: improved Disposition: ADMITTED INPATIENT Condition: Critical Referrals: NOT CHOSEN IPA/,REFERRING (PCP) Simon Lewis MD Mar 27, 2020 13:24
--- NOTE | 2020-03-27 14:00 | Consultation ---
DATE OF CONSULTATION: 03/27/2020 PULMONARY CONSULTATION CONSULTING PHYSICIAN: Travis Cordova M.D. HISTORY OF PRESENT ILLNESS: This is a 69-year-old [facility] resident who is admitted to the hospital with generalized weakness. She was also found to have evidence of hyperkalemia and renal dysfunction. Consultation was requested due to need for ICU care and also concern regarding sepsis. The patient is weak and debilitated and unable to answer questions. The patient is confused and unable to answer questions appropriately. PAST MEDICAL HISTORY: Notable for hypertension, unspecified heart disease, diabetes mellitus, seizure disorder. PAST SURGICAL HISTORY: Unknown. ALLERGIES: Lisinopril. MEDICATIONS: Include Tylenol, amlodipine, cefepime, Neurontin, Ativan, metoprolol, Zofran, and temazepam. REVIEW OF SYSTEMS: Not obtainable. PHYSICAL EXAMINATION: GENERAL: Reveals a 69-year-old female. VITAL SIGNS: Blood pressure 120/90, heart rate 110, respirations 20. O2 saturation 99% on 2 L oxygen. HEENT: Unremarkable. CHEST: Shows decreased breath sounds bilaterally. HEART: Normal heart sounds. ABDOMEN: Soft. EXTREMITIES: No appreciable edema. LABORATORY DATA: As discussed above, notable for potassium now of 5.1, creatinine now of 6. CBC is 10.9, now at 8.6. Hemoglobin is normal. Platelet count is normal. X-ray chest, per report, is unremarkable although I have not reviewed the images myself. IMPRESSION: 1. Hyperkalemia. 2. Sinus tachycardia. 3. Rule out sepsis. 4. Hypertension. 5. Seizure disorder. 6. Acute renal failure. DISCUSSION: Admit to the hospital. The patient needs hydration. She will need correction of hyperkalemia with Kayexalate, glucose, calcium, and insulin. May need ICU care. We will monitor. Currently, the patient is in the ER. We will follow carefully. Travis Cordova M.D. DR: LEIDA JOB#: [id number] CC:
--- NOTE | 2020-03-27 15:34 | Diagnostic Imaging Report ---
Indication: Post intubation Technique: One view of the chest Comparison: 03/26/2020 Findings: Interim endotracheal intubation, endotracheal tube tip projecting approximately 2 cm above the ericka in good position. There is increased atelectasis in the right perihilar region. The lungs and pleural spaces are otherwise clear. The heart size is normal. Impression: Satisfactory endotracheal intubation Increased right perihilar atelectasis
--- NOTE | 2020-03-27 16:35 | NUR ---
ED Nurse Note: Pt is resting on gurney and connected to mechanical ventilator. IV fluids maintenance still running. Adan RN swabed for rapid covid testing witnesed by primary RN.
--- NOTE | 2020-03-27 16:47 | NUR ---
RESPIRATORY NOTE: called to ER for ABG. ABG was drawn and relayed to ER MD. pt intubated at 1135 with ETT 8.0 placed 26cm at the lip. ETT is secured via anchor fast with no visible redness or skin irriation prior to intubation. placed pt on AC 18 500 40% +5. no signs of resp distress post intubation. RN at bedside.
--- NOTE | 2020-03-27 17:41 | History and Physical ---
History of Present Illness General Date patient seen: Mar 27, 2020 Reason for Hospitalization: Altered Level of Consciousness Present Illness HPI Ms. Hayward is a 69 year old female with unclear PMHx, presenting from SNF, with increased lethargy, weakness. patient was intubated at the time of encounter. unable to get history Allergies: Coded Allergies: LISINOPRIL (Verified Allergy, Unknown, Hives, 04/12/14) COVID-19 Screening Contact w/high risk pt: No Recent Travel to affected area: No Experienced COVID-19 symptoms?: No Medication History Scheduled Amlodipine Besylate* (Amlodipine Besylate*), 10 MG ORAL DAILY, (Reported) Baclofen* (Baclofen*), 10 MG ORAL NEEDED, (Reported) Doxazosin Mesylate* (Doxazosin Mesylate*), 4 MG ORAL DAILY, (Reported) Duloxetine Hcl* (Cymbalta*), 60 MG ORAL BID, (Reported) Gabapentin* (Gabapentin*), 300 MG ORAL BEDTIME, (Reported) Hydralazine HCl (Hydralazine HCl), 50 MG ORAL Q6HR Metoprolol Tartrate* (Metoprolol Tartrate*), 100 MG ORAL EVERY 12 HOURS, ( Reported) Phosphorus (Phospha 250 Neutral Tablet), 250 MG ORAL THREE TIMES A DAY Simvastatin (Zocor), 40 MG ORAL BEDTIME, (Reported) Trazodone* (Trazodone*), 200 MG ORAL BEDTIME, (Reported) Scheduled PRN Hydrocodone/Acetaminophen (Hydrocodon-Acetaminophn 10-325), 1 TAB ORAL Q6H PRN for For Pain, (Reported) Patient History Limited by: medical condition History Provided By: Medical Record Healthcare decision maker Resuscitation status Advanced Directive on File Review of Systems ROS Narrative ROS unable to be obtained, patient intubated, nonverbal Physical Exam General Appearance: no apparent distress, obese HEENT: normocephalic, atraumatic Respiratory/Chest: lungs clear Cardiovascular/Chest: tachycardia, irregularly irregular Abdomen: normal bowel sounds, soft, no organomegaly Extremities: non-tender Neurologic: alert, oriented x 3 Last 24 Hour Vital Signs Date Time Temp Pulse Resp B/P (MAP) Pulse Ox O2 Delivery O2 Flow Rate FiO2 03/27/20 15:55 99 18 100 03/27/20 15:02 98.7 74 16 112/73 100 Mechanical Ventilator 40 03/27/20 13:52 86 20 104/60 99 Mechanical Ventilator 40 03/27/20 13:50 2.0 40 03/27/20 13:00 75 15 110/76 96 Mechanical Ventilator 40 03/27/20 12:00 99.0 89 16 90/62 99 Mechanical Ventilator 100 03/27/20 11:56 97 20 100 03/27/20 11:40 97 33 114/80 100 Mechanical Ventilator 100 03/27/20 09:26 119 126/101 03/27/20 09:22 119 126/101 03/27/20 09:09 119 18 126/101 99 Nasal Cannula 2.0 03/27/20 09:03 146 126/101 03/27/20 08:57 166 118/75 03/27/20 08:50 195 115/74 03/27/20 08:35 195 22 115/74 99 Nasal Cannula 2.0 03/27/20 05:42 99.0 136 21 131/69 99 Room Air 03/27/20 03:40 98.2 138 20 128/82 98 Room Air 03/27/20 01:40 98.2 124 20 133/70 98 Room Air 03/26/20 22:40 98.2 120 20 131/68 98 Room Air 03/26/20 20:40 99.0 118 20 138/82 98 Room Air 03/26/20 18:47 99.0 115 20 108/53 98 Room Air 03/26/20 18:47 115 20 Room Air 03/26/20 18:40 99.0 115 20 108/53 (71) 98 Room Air Intake and Output 03/26/20 03/27/20 19:00 07:00 Output Total 600 ml Balance -600 ml Output Urine Total 500 ml Stool Total 100 ml Laboratory Tests Test 03/26/20 19:15 03/26/20 21:15 03/27/20 07:45 03/27/20 13:10 White Blood Count 10.9 K/UL (4.8-10.8) H 8.6 K/UL (4.8-10.8) Red Blood Count 5.73 M/UL (4.20-5.40) H 5.11 M/UL (4.20-5.40) Hemoglobin 14.0 G/DL (12.0-16.0) 13.1 G/DL (12.0-16.0) Hematocrit 50.4 % (37.0-47.0) H 41.2 % (37.0-47.0) Mean Corpuscular Volume 88 FL (80-99) 81 FL (80-99) Mean Corpuscular Hemoglobin 24.4 PG (27.0-31.0) L 25.6 PG (27.0-31.0) L Mean Corpuscular Hemoglobin Concent 27.8 G/DL (32.0-36.0) L 31.7 G/DL (32.0-36.0) L Red Cell Distribution Width 21.4 % (11.6-14.8) H 19.0 % (11.6-14.8) H Platelet Count 241 K/UL (150-450) 209 K/UL (150-450) Mean Platelet Volume 10.2 FL (6.5-10.1) H 7.2 FL (6.5-10.1) Neutrophils (%) (Auto) 89.7 % (45.0-75.0) H 78.9 % (45.0-75.0) H Lymphocytes (%) (Auto) 4.1 % (20.0-45.0) L 5.9 % (20.0-45.0) L Monocytes (%) (Auto) 5.6 % (1.0-10.0) 14.7 % (1.0-10.0) H Eosinophils (%) (Auto) 0.0 % (0.0-3.0) 0.0 % (0.0-3.0) Basophils (%) (Auto) 0.6 % (0.0-2.0) 0.5 % (0.0-2.0) Sodium Level 137 MMOL/L (136-145) 140 MMOL/L (136-145) Potassium Level 5.8 MMOL/L (3.5-5.1) H 5.1 MMOL/L (3.5-5.1) Chloride Level 99 MMOL/L (98-107) 106 MMOL/L (98-107) Carbon Dioxide Level 15 MMOL/L (21-32) L 18 MMOL/L (21-32) L Anion Gap 23 mmol/L (5-15) H 16 mmol/L (5-15) H Blood Urea Nitrogen 83 mg/dL (7-18) H 86 mg/dL (7-18) H Creatinine 6.6 MG/DL (0.55-1.30) H 6.0 MG/DL (0.55-1.30) H Estimat Glomerular Filtration Rate 7.5 mL/min (>60) 8.5 mL/min (>60) Glucose Level 193 MG/DL (74-106) H 142 MG/DL (74-106) H Lactic Acid Level 5.40 mmol/L (0.4-2.0) H 3.20 mmol/L (0.66-2.22) H Calcium Level 9.4 MG/DL (8.5-10.1) 8.2 MG/DL (8.5-10.1) L Total Bilirubin 0.6 MG/DL (0.2-1.0) Aspartate Amino Transf (AST/SGOT) 152 U/L (15-37) H Alanine Aminotransferase (ALT/SGPT) 30 U/L (12-78) Alkaline Phosphatase 264 U/L (46-116) H Total Creatine Kinase > 17289 U/L (26-308) H Creatine Kinase MB 112.0 NG/ML (0.0-3.6) H Creatine Kinase MB Relative Index 1.1 Troponin I 0.004 ng/mL (0.000-0.056) Pro-B-Type Natriuretic Peptide 2592 pg/mL (0-125) H Total Protein 8.1 G/DL (6.4-8.2) Albumin 3.2 G/DL (3.4-5.0) L Globulin 4.9 g/dL Albumin/Globulin Ratio 0.7 (1.0-2.7) L Lipase 83 U/L (73-393) Magnesium Level 2.4 MG/DL (1.8-2.4) Arterial Blood pH 7.190 (7.350-7.450) Arterial Blood Partial Pressure CO2 36.4 mmHg (35.0-45.0) Arterial Blood Partial Pressure O2 481.3 mmHg (75.0-100.0) H Arterial Blood HCO3 13.6 mmol/L (22.0-26.0) *L Arterial Blood Oxygen Saturation 99.8 % (95-100) Arterial Blood Base Excess -13.7 (-2-2) *L Kelvin Test Positive Height (Feet): 5 Height (Inches): 8.00 Weight (Pounds): 250 Medications Current Medications Medications (Trade) Dose Ordered Sig/Debbie Route PRN Reason Start Time Stop Time Status Last Admin Dose Admin Acetaminophen (Tylenol) 650 mg Q4H PRN ORAL Mild Pain (Pain Scale 1-3) 03/26/20 21:15 04/25/20 21:14 Acetaminophen (Tylenol) 650 mg Q4H PRN ORAL Temp >100.5 03/26/20 21:15 04/25/20 21:14 Al Hydroxide/Mg Hydroxide (Mylanta II) 30 ml Q6H PRN ORAL dyspepsia 03/26/20 21:15 04/25/20 21:14 Amlodipine Besylate (Norvasc) 10 mg DAILY ORAL 03/27/20 09:00 04/26/20 08:59 03/27/20 09:26 Bisacodyl (Dulcolax) 10 mg HSPRN PRN RECTAL Constipation 03/26/20 21:15 06/24/20 21:14 Cefepime HCl 1 gm/ Dextrose 55 ml @ 110 mls/hr Q24H IVPB 03/27/20 09:45 04/03/20 09:44 03/27/20 09:40 Dextrose (Dextrose 50%) 25 ml Q30M PRN IV Hypoglycemia 03/26/20 21:15 06/24/20 21:14 Dextrose (Dextrose 50%) 50 ml Q30M PRN IV Hypoglycemia 03/26/20 21:15 06/24/20 21:14 Diphenhydramine HCl (Benadryl) 25 mg Q6H PRN ORAL Itching/Pruritis 03/26/20 21:15 04/25/20 21:14 Docusate Sodium (Colace) 100 mg EVERY 12 HOURS ORAL 03/27/20 09:00 04/26/20 08:59 03/27/20 09:22 Gabapentin (Neurontin) 300 mg BEDTIME ORAL 03/27/20 21:00 04/26/20 20:59 Heparin Sodium (Porcine) (Heparin 5000 units/ml) 5,000 units EVERY 12 HOURS SUBQ 03/27/20 09:00 05/11/20 08:59 03/27/20 09:23 Lorazepam (Ativan 2mg/ml 1ml) 0.5 mg Q4H PRN IV For Anxiety 03/26/20 21:15 04/02/20 21:14 Magnesium Hydroxide (Mom) 30 ml HSPRN PRN ORAL Constipation 03/26/20 21:15 04/25/20 21:14 Metoclopramide HCl (Reglan) 10 mg Q6H PRN IVP Nausea & Vomiting 03/26/20 21:15 04/25/20 21:14 Metoprolol Tartrate (Lopressor) 5 mg Q5MIN X 3 IVP 03/27/20 09:00 06/25/20 08:59 03/27/20 09:03 Metoprolol Tartrate (Lopressor) 100 mg EVERY 12 HOURS ORAL 03/27/20 09:00 06/25/20 08:59 03/27/20 09:22 Morphine Sulfate (Morphine Sulfate) 2 mg Q4H PRN IVP Moderate Pain (Pain Scale 4-6) 03/26/20 21:15 04/02/20 21:14 Morphine Sulfate (Morphine Sulfate) 4 mg Q4H PRN IVP Severe Pain (Pain Scale 7-10) 03/26/20 21:15 04/02/20 21:14 Ondansetron HCl (Zofran) 4 mg Q6H PRN IVP Nausea & Vomiting 03/26/20 21:15 04/25/20 21:14 Polyethylene Glycol (Miralax) 17 gm HSPRN PRN ORAL Constipation 03/26/20 21:15 04/25/20 21:14 Sodium Chloride 1,000 ml @ 200 mls/hr Q5H IV 03/27/20 12:45 04/26/20 12:44 03/27/20 12:49 Temazepam (Restoril) 15 mg HSPRN PRN ORAL Insomnia 03/26/20 21:15 04/02/20 21:14 Assessment/Plan Problem List: (1) Atrial flutter ICD Codes: I48.92 - Unspecified atrial flutter SNOMED: 6755966 (2) Hypertension ICD Codes: I10 - Essential (primary) hypertension SNOMED: 06853444 (3) Hyperkalemia ICD Codes: E87.5 - Hyperkalemia SNOMED: 22803775 (4) Acute encephalopathy ICD Codes: G93.40 - Encephalopathy, unspecified SNOMED: 3932399 (5) Acute and chronic respiratory failure with hypoxia ICD Codes: J96.21 - Acute and chronic respiratory failure with hypoxia SNOMED: 52644402, 130970877 (6) VENTURA (acute kidney injury) ICD Codes: N17.9 - Acute kidney failure, unspecified SNOMED: 4710543, 05657007 Status: deteriorating Assessment/Plan: Ms. Hayward is a 69 year old female with unknown history, presenting with AMS, weaknses, found to have rhabdo, VENTURA, a fib RVR then later was intubated for hypoxia/stridor. #Acute hypoxic respiratory failure #Acute toxometabolic encephalopathy -Unclear etiology, but desaturated in the ED. -Intubated in the ED (03/27 -) -Admit to ICU -pulm/ICU consulted. appreciate recs. -ventilator/sedation per ICU #A fib RVR #Elevated BNP #?CHF -s/p multiple doses of MTP in the ED. -cardiology consulted. appreciate recs. -cardiac meds per cards #rhabdomyolosis -CK >47567 on presentation. -s/p IVF boluses in ED. continue IVF. -check CK daily #VENTURA #Hyperkalemia #Anion gap metabolic acidosis -worsening renal fx. HyperK resolved. -nephrology on board. May need HD. -trend BMP #Sepsis -continue cefepime (03/27 -) -f/u cultures. Time spent on encounter, 77 minutes, >40 mins on counseling and coordination of care. Extra 37 mins spent on chart review of EMR records, including physician documentation, labs, meds, imaging studies. Time of note doesn't reflect time of encounter. Ousmane Torres MD Mar 27, 2020 17:41
--- NOTE | 2020-03-27 17:50 | NUR ---
ED Nurse Note: Lab called and rapid covid testing negative per Helga ARCOS.
--- NOTE | 2020-03-27 19:09 | NUR ---
HAND-OFF: Report given to Waleska ARCOS.
--- NOTE | 2020-03-27 19:15 | NUR ---
ED Nurse Note: Patient suctioned with yanker as thick mucus was down the right side of her face. Pillow provided ro prop neck in anterior position. VRE sample taken from stoma and sent down to lab along with MRSA nasal specimen. Will continue to monitor for transport to floor.
--- NOTE | 2020-03-27 20:00 | NUR ---
ED Nurse Note: Patient resting comfortably with no s/s of agitation despite lack of sedation medication. Will continue to monitor patient's behavioral status to protect airway.
[2020-03-27] MEDS ORDERED: Vancomycin 1.5gm/NS Premix 275 ML IVPB SCH ×2 (20:07→23:00)
--- NOTE | 2020-03-27 21:00 | NUR ---
ED Nurse Note: Nay guadarrama, will continue to monitor for transport to floor.
--- NOTE | 2020-03-27 21:05 | NUR ---
ED Nurse Note: Patient is tachycardic even more so than in recent history, Charge nurse informed.
--- NOTE | 2020-03-27 21:08 | Infectious Diseases Prog Note ---
Assessment/Plan Assessment/Plan Full consult dictated: A) 1) possible sepsis, elevated lactic acid 2) respiratory failure 3) dony 4) pmh noted 5) allergies - lisinopril P) 1) cefepime and vancomycin, add flagyl 2) f/u on cultures, covid-19 testing, labs and chest x-ray 3) thank you Subjective Allergies: Coded Allergies: LISINOPRIL (Verified Allergy, Unknown, Hives, 04/12/14) Objective Vital Signs Last 24 Hour Vital Signs Date Time Temp Pulse Resp B/P (MAP) Pulse Ox O2 Delivery O2 Flow Rate FiO2 03/27/20 20:14 98.7 105 18 107/56 100 Mechanical Ventilator 2.0 100 03/27/20 19:19 103 19 100 03/27/20 19:15 98.7 102 18 102/62 100 Mechanical Ventilator 2.0 40 03/27/20 18:08 89 15 97/47 100 Mechanical Ventilator 40 03/27/20 17:03 98.7 98 15 90/48 100 Mechanical Ventilator 40 03/27/20 16:03 92 16 90/61 100 Mechanical Ventilator 40 03/27/20 15:55 99 18 100 03/27/20 15:02 98.7 74 16 112/73 100 Mechanical Ventilator 40 03/27/20 13:52 86 20 104/60 99 Mechanical Ventilator 40 03/27/20 13:50 2.0 40 03/27/20 13:00 75 15 110/76 96 Mechanical Ventilator 40 03/27/20 12:00 99.0 89 16 90/62 99 Mechanical Ventilator 100 03/27/20 11:56 97 20 100 03/27/20 11:40 97 33 114/80 100 Mechanical Ventilator 100 03/27/20 09:26 119 126/101 03/27/20 09:22 119 126/101 03/27/20 09:09 119 18 126/101 99 Nasal Cannula 2.0 03/27/20 09:03 146 126/101 03/27/20 08:57 166 118/75 03/27/20 08:50 195 115/74 03/27/20 08:35 195 22 115/74 99 Nasal Cannula 2.0 03/27/20 05:42 99.0 136 21 131/69 99 Room Air 03/27/20 03:40 98.2 138 20 128/82 98 Room Air 03/27/20 01:40 98.2 124 20 133/70 98 Room Air 03/26/20 22:40 98.2 120 20 131/68 98 Room Air Height (Feet): 5 Height (Inches): 8.00 Weight (Pounds): 250 Laboratory Tests Test 03/26/20 21:15 03/27/20 07:45 03/27/20 13:10 03/27/20 20:05 Lactic Acid Level 3.20 mmol/L (0.66-2.22) H White Blood Count 8.6 K/UL (4.8-10.8) Red Blood Count 5.11 M/UL (4.20-5.40) Hemoglobin 13.1 G/DL (12.0-16.0) Hematocrit 41.2 % (37.0-47.0) Mean Corpuscular Volume 81 FL (80-99) Mean Corpuscular Hemoglobin 25.6 PG (27.0-31.0) L Mean Corpuscular Hemoglobin Concent 31.7 G/DL (32.0-36.0) L Red Cell Distribution Width 19.0 % (11.6-14.8) H Platelet Count 209 K/UL (150-450) Mean Platelet Volume 7.2 FL (6.5-10.1) Neutrophils (%) (Auto) 78.9 % (45.0-75.0) H Lymphocytes (%) (Auto) 5.9 % (20.0-45.0) L Monocytes (%) (Auto) 14.7 % (1.0-10.0) H Eosinophils (%) (Auto) 0.0 % (0.0-3.0) Basophils (%) (Auto) 0.5 % (0.0-2.0) Sodium Level 140 MMOL/L (136-145) Potassium Level 5.1 MMOL/L (3.5-5.1) Chloride Level 106 MMOL/L (98-107) Carbon Dioxide Level 18 MMOL/L (21-32) L Anion Gap 16 mmol/L (5-15) H Blood Urea Nitrogen 86 mg/dL (7-18) H Creatinine 6.0 MG/DL (0.55-1.30) H Estimat Glomerular Filtration Rate 8.5 mL/min (>60) Glucose Level 142 MG/DL (74-106) H Calcium Level 8.2 MG/DL (8.5-10.1) L Magnesium Level 2.4 MG/DL (1.8-2.4) Arterial Blood pH 7.190 (7.350-7.450) 7.274 (7.350-7.450) Arterial Blood Partial Pressure CO2 36.4 mmHg (35.0-45.0) 35.7 mmHg (35.0-45.0) Arterial Blood Partial Pressure O2 481.3 mmHg (75.0-100.0) H 141.0 mmHg (75.0-100.0) H Arterial Blood HCO3 13.6 mmol/L (22.0-26.0) *L 16.2 mmol/L (22.0-26.0) *L Arterial Blood Oxygen Saturation 99.8 % (95-100) 98.5 % (95-100) Arterial Blood Base Excess -13.7 (-2-2) *L -9.8 (-2-2) *L Kelvin Test Positive Positive Current Medications Medications (Trade) Dose Ordered Sig/Debbie Route PRN Reason Start Time Stop Time Status Last Admin Dose Admin Acetaminophen (Tylenol) 650 mg Q4H PRN ORAL Mild Pain (Pain Scale 1-3) 03/26/20 21:15 04/25/20 21:14 Acetaminophen (Tylenol) 650 mg Q4H PRN ORAL Temp >100.5 03/26/20 21:15 04/25/20 21:14 Al Hydroxide/Mg Hydroxide (Mylanta II) 30 ml Q6H PRN ORAL dyspepsia 03/26/20 21:15 04/25/20 21:14 Bisacodyl (Dulcolax) 10 mg HSPRN PRN RECTAL Constipation 03/26/20 21:15 06/24/20 21:14 Cefepime HCl 1 gm/ Dextrose 55 ml @ 110 mls/hr Q24H IVPB 03/28/20 15:00 04/04/20 14:59 Dextrose (Dextrose 50%) 25 ml Q30M PRN IV Hypoglycemia 03/26/20 21:15 06/24/20 21:14 Dextrose (Dextrose 50%) 50 ml Q30M PRN IV Hypoglycemia 03/26/20 21:15 06/24/20 21:14 Diphenhydramine HCl (Benadryl) 25 mg Q6H PRN ORAL Itching/Pruritis 03/26/20 21:15 04/25/20 21:14 Docusate Sodium (Colace) 100 mg EVERY 12 HOURS ORAL 03/27/20 09:00 04/26/20 08:59 03/27/20 09:22 Gabapentin (Neurontin) 300 mg BEDTIME ORAL 03/27/20 21:00 04/26/20 20:59 Heparin Sodium (Porcine) (Heparin 5000 units/ml) 5,000 units EVERY 12 HOURS SUBQ 03/27/20 09:00 05/11/20 08:59 03/27/20 09:23 Lorazepam (Ativan 2mg/ml 1ml) 0.5 mg Q4H PRN IV For Anxiety 03/26/20 21:15 04/02/20 21:14 Magnesium Hydroxide (Mom) 30 ml HSPRN PRN ORAL Constipation 03/26/20 21:15 04/25/20 21:14 Metoclopramide HCl (Reglan) 10 mg Q6H PRN IVP Nausea & Vomiting 03/26/20 21:15 04/25/20 21:14 Metoprolol Tartrate (Lopressor) 100 mg EVERY 12 HOURS ORAL 03/27/20 09:00 06/25/20 08:59 03/27/20 09:22 Morphine Sulfate (Morphine Sulfate) 2 mg Q4H PRN IVP Moderate Pain (Pain Scale 4-6) 03/26/20 21:15 04/02/20 21:14 Morphine Sulfate (Morphine Sulfate) 4 mg Q4H PRN IVP Severe Pain (Pain Scale 7-10) 03/26/20 21:15 04/02/20 21:14 Ondansetron HCl (Zofran) 4 mg Q6H PRN IVP Nausea & Vomiting 03/26/20 21:15 04/25/20 21:14 Polyethylene Glycol (Miralax) 17 gm HSPRN PRN ORAL Constipation 03/26/20 21:15 04/25/20 21:14 Sodium Chloride 1,000 ml @ 100 mls/hr Q10H IV 03/27/20 21:00 04/26/20 20:59 Temazepam (Restoril) 15 mg HSPRN PRN ORAL Insomnia 03/26/20 21:15 04/02/20 21:14 Vancomycin HCl (Vanco pharmacy to dose) 1 ea DAILY PRN MISC Per rx protocol 03/27/20 20:15 04/26/20 20:14 Vancomycin/Sodium Chloride 275 ml @ 137.5 mls/ hr ONCE IVPB 03/27/20 23:00 03/28/20 01:00 Jose Valdes MD Mar 27, 2020 21:08
--- NOTE | 2020-03-27 21:23 | NUR ---
ED Nurse Note: paged Dr. Mendez due to patients heart rate in the 160s
--- NOTE | 2020-03-27 21:35 | NUR ---
ED Nurse Note: Patient is also diaphoretic, and has axillary temp of 100.3, charge nurse informed. Wiped patient down with dry cloth, removed blanket and will continue to monitor patient closely and await return call of admitting physician regarding oral orders not being the correct route of administration given the oral intubation, persistent tachycardia as high as 162 and impending need for intervention medication.
--- NOTE | 2020-03-27 22:35 | NUR ---
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 Will await return call.
--- NOTE | 2020-03-27 22:43 | Consultation ---
History of Present Illness General Date patient seen: Mar 27, 2020 Time patient seen: 22:35 Chief Complaint: Altered Level of Consciousness Present Illness HPI 69 year old patient well know to me presents from [facility] AMS lethargy weakness , intubated for airway support, labs with elevated LFTs, troponin negative, CXR clear, Cardiology consulted for tachycardia Allergies: Coded Allergies: LISINOPRIL (Verified Allergy, Unknown, Hives, 04/12/14) Medication History Scheduled Amlodipine Besylate* (Amlodipine Besylate*), 10 MG ORAL DAILY, (Reported) Baclofen* (Baclofen*), 10 MG ORAL NEEDED, (Reported) Doxazosin Mesylate* (Doxazosin Mesylate*), 4 MG ORAL DAILY, (Reported) Duloxetine Hcl* (Cymbalta*), 60 MG ORAL BID, (Reported) Gabapentin* (Gabapentin*), 300 MG ORAL BEDTIME, (Reported) Hydralazine HCl (Hydralazine HCl), 50 MG ORAL Q6HR Metoprolol Tartrate* (Metoprolol Tartrate*), 100 MG ORAL EVERY 12 HOURS, ( Reported) Phosphorus (Phospha 250 Neutral Tablet), 250 MG ORAL THREE TIMES A DAY Simvastatin (Zocor), 40 MG ORAL BEDTIME, (Reported) Trazodone* (Trazodone*), 200 MG ORAL BEDTIME, (Reported) Scheduled PRN Hydrocodone/Acetaminophen (Hydrocodon-Acetaminophn 10-325), 1 TAB ORAL Q6H PRN for For Pain, (Reported) Patient History Healthcare decision maker Resuscitation status Advanced Directive on File Review of Systems Constitutional: Reports: no symptoms, weakness Eye: Reports: no symptoms ENT: Reports: no symptoms Respiratory: Reports: no symptoms Cardiovascular: Reports: no symptoms Gastrointestinal: Reports: no symptoms Genitourinary: Reports: no symptoms Musculoskeletal: Reports: no symptoms Skin: Reports: no symptoms Psychiatric: Reports: no symptoms Neurological: Reports: no symptoms Endocrine: Reports: no symptoms Hematologic/Lymphatic: Reports: no symptoms Physical Exam General Appearance: lethargic, confused, mild distress Lines, tubes and drains: peripheral HEENT: normocephalic, atraumatic, mucous membranes moist, PERRL, pharynx normal , no JVD Neck: non-tender, normal alignment, supple Respiratory/Chest: accessory muscle use, crackles/rales, rhonchi - bilaterally Cardiovascular/Chest: normal peripheral pulses, tachycardia Abdomen: normal bowel sounds, non tender Extremities: normal range of motion, non-tender, normal inspection, no calf tenderness Skin Exam: normal pigmentation, warm/dry 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, abnormal CN, sensory deficit, disoriented Last 24 Hour Vital Signs Date Time Temp Pulse Resp B/P (MAP) Pulse Ox O2 Delivery O2 Flow Rate FiO2 03/27/20 20:14 98.7 105 18 107/56 100 Mechanical Ventilator 2.0 100 03/27/20 19:19 103 19 100 03/27/20 19:15 98.7 102 18 102/62 100 Mechanical Ventilator 2.0 40 03/27/20 18:08 89 15 97/47 100 Mechanical Ventilator 40 03/27/20 17:03 98.7 98 15 90/48 100 Mechanical Ventilator 40 03/27/20 16:03 92 16 90/61 100 Mechanical Ventilator 40 03/27/20 15:55 99 18 100 03/27/20 15:02 98.7 74 16 112/73 100 Mechanical Ventilator 40 03/27/20 13:52 86 20 104/60 99 Mechanical Ventilator 40 03/27/20 13:50 2.0 40 03/27/20 13:00 75 15 110/76 96 Mechanical Ventilator 40 03/27/20 12:00 99.0 89 16 90/62 99 Mechanical Ventilator 100 03/27/20 11:56 97 20 100 03/27/20 11:40 97 33 114/80 100 Mechanical Ventilator 100 03/27/20 09:26 119 126/101 03/27/20 09:22 119 126/101 03/27/20 09:09 119 18 126/101 99 Nasal Cannula 2.0 03/27/20 09:03 146 126/101 03/27/20 08:57 166 118/75 03/27/20 08:50 195 115/74 03/27/20 08:35 195 22 115/74 99 Nasal Cannula 2.0 03/27/20 05:42 99.0 136 21 131/69 99 Room Air 03/27/20 03:40 98.2 138 20 128/82 98 Room Air 03/27/20 01:40 98.2 124 20 133/70 98 Room Air 03/26/20 22:40 98.2 120 20 131/68 98 Room Air Intake and Output 03/26/20 03/27/20 19:00 07:00 Output Total 600 ml Balance -600 ml Output Urine Total 500 ml Stool Total 100 ml Laboratory Tests Test 03/27/20 07:45 03/27/20 13:10 03/27/20 20:05 White Blood Count 8.6 K/UL (4.8-10.8) Red Blood Count 5.11 M/UL (4.20-5.40) Hemoglobin 13.1 G/DL (12.0-16.0) Hematocrit 41.2 % (37.0-47.0) Mean Corpuscular Volume 81 FL (80-99) Mean Corpuscular Hemoglobin 25.6 PG (27.0-31.0) L Mean Corpuscular Hemoglobin Concent 31.7 G/DL (32.0-36.0) L Red Cell Distribution Width 19.0 % (11.6-14.8) H Platelet Count 209 K/UL (150-450) Mean Platelet Volume 7.2 FL (6.5-10.1) Neutrophils (%) (Auto) 78.9 % (45.0-75.0) H Lymphocytes (%) (Auto) 5.9 % (20.0-45.0) L Monocytes (%) (Auto) 14.7 % (1.0-10.0) H Eosinophils (%) (Auto) 0.0 % (0.0-3.0) Basophils (%) (Auto) 0.5 % (0.0-2.0) Sodium Level 140 MMOL/L (136-145) Potassium Level 5.1 MMOL/L (3.5-5.1) Chloride Level 106 MMOL/L (98-107) Carbon Dioxide Level 18 MMOL/L (21-32) L Anion Gap 16 mmol/L (5-15) H Blood Urea Nitrogen 86 mg/dL (7-18) H Creatinine 6.0 MG/DL (0.55-1.30) H Estimat Glomerular Filtration Rate 8.5 mL/min (>60) Glucose Level 142 MG/DL (74-106) H Calcium Level 8.2 MG/DL (8.5-10.1) L Magnesium Level 2.4 MG/DL (1.8-2.4) Arterial Blood pH 7.190 (7.350-7.450) 7.274 (7.350-7.450) Arterial Blood Partial Pressure CO2 36.4 mmHg (35.0-45.0) 35.7 mmHg (35.0-45.0) Arterial Blood Partial Pressure O2 481.3 mmHg (75.0-100.0) H 141.0 mmHg (75.0-100.0) H Arterial Blood HCO3 13.6 mmol/L (22.0-26.0) *L 16.2 mmol/L (22.0-26.0) *L Arterial Blood Oxygen Saturation 99.8 % (95-100) 98.5 % (95-100) Arterial Blood Base Excess -13.7 (-2-2) *L -9.8 (-2-2) *L Kelvin Test Positive Positive Height (Feet): 5 Height (Inches): 8.00 Weight (Pounds): 250 Medications Current Medications Medications (Trade) Dose Ordered Sig/Debbie Route PRN Reason Start Time Stop Time Status Last Admin Dose Admin Acetaminophen (Tylenol) 650 mg Q4H PRN ORAL Mild Pain (Pain Scale 1-3) 03/26/20 21:15 04/25/20 21:14 Acetaminophen (Tylenol) 650 mg Q4H PRN ORAL Temp >100.5 03/26/20 21:15 04/25/20 21:14 Al Hydroxide/Mg Hydroxide (Mylanta II) 30 ml Q6H PRN ORAL dyspepsia 03/26/20 21:15 04/25/20 21:14 Bisacodyl (Dulcolax) 10 mg HSPRN PRN RECTAL Constipation 03/26/20 21:15 06/24/20 21:14 Cefepime HCl 1 gm/ Dextrose 55 ml @ 110 mls/hr Q24H IVPB 03/28/20 15:00 04/04/20 14:59 Dextrose (Dextrose 50%) 25 ml Q30M PRN IV Hypoglycemia 03/26/20 21:15 06/24/20 21:14 Dextrose (Dextrose 50%) 50 ml Q30M PRN IV Hypoglycemia 03/26/20 21:15 06/24/20 21:14 Diphenhydramine HCl (Benadryl) 25 mg Q6H PRN ORAL Itching/Pruritis 03/26/20 21:15 04/25/20 21:14 Docusate Sodium (Colace) 100 mg EVERY 12 HOURS ORAL 03/27/20 09:00 04/26/20 08:59 03/27/20 09:22 Gabapentin (Neurontin) 300 mg BEDTIME ORAL 03/27/20 21:00 04/26/20 20:59 Heparin Sodium (Porcine) (Heparin 5000 units/ml) 5,000 units EVERY 12 HOURS SUBQ 03/27/20 09:00 05/11/20 08:59 03/27/20 22:01 Lorazepam (Ativan 2mg/ml 1ml) 0.5 mg Q4H PRN IV For Anxiety 03/26/20 21:15 04/02/20 21:14 Magnesium Hydroxide (Mom) 30 ml HSPRN PRN ORAL Constipation 03/26/20 21:15 04/25/20 21:14 Metoclopramide HCl (Reglan) 10 mg Q6H PRN IVP Nausea & Vomiting 03/26/20 21:15 04/25/20 21:14 Metoprolol Tartrate (Lopressor) 100 mg EVERY 12 HOURS ORAL 03/27/20 09:00 06/25/20 08:59 03/27/20 09:22 Metronidazole 100 ml @ 100 mls/hr Q8HR IVPB 03/27/20 22:00 04/03/20 21:59 Morphine Sulfate (Morphine Sulfate) 2 mg Q4H PRN IVP Moderate Pain (Pain Scale 4-6) 03/26/20 21:15 04/02/20 21:14 Morphine Sulfate (Morphine Sulfate) 4 mg Q4H PRN IVP Severe Pain (Pain Scale 7-10) 03/26/20 21:15 04/02/20 21:14 Ondansetron HCl (Zofran) 4 mg Q6H PRN IVP Nausea & Vomiting 03/26/20 21:15 04/25/20 21:14 Polyethylene Glycol (Miralax) 17 gm HSPRN PRN ORAL Constipation 03/26/20 21:15 04/25/20 21:14 Sodium Chloride 1,000 ml @ 100 mls/hr Q10H IV 03/27/20 21:00 04/26/20 20:59 03/27/20 21:55 Temazepam (Restoril) 15 mg HSPRN PRN ORAL Insomnia 03/26/20 21:15 04/02/20 21:14 Vancomycin HCl (Vanco pharmacy to dose) 1 ea DAILY PRN MISC Per rx protocol 03/27/20 20:15 04/26/20 20:14 Vancomycin/Sodium Chloride 275 ml @ 137.5 mls/ hr ONCE IVPB 03/27/20 23:00 03/28/20 01:00 Assessment/Plan Status: stable Assessment/Plan: Assessment/Plan Problem List: (1) Atrial flutter ICD Codes: I48.92 - Unspecified atrial flutter SNOMED: 1370630 (2) Hypertension ICD Codes: I10 - Essential (primary) hypertension SNOMED: 93789168 (3) Hyperkalemia ICD Codes: E87.5 - Hyperkalemia SNOMED: 73560805 (4) Acute encephalopathy ICD Codes: G93.40 - Encephalopathy, unspecified SNOMED: 4596103 (5) Acute and chronic respiratory failure with hypoxia ICD Codes: J96.21 - Acute and chronic respiratory failure with hypoxia SNOMED: 34234708, 720532467 (6) VENTURA (acute kidney injury) ICD Codes: N17.9 - Acute kidney failure, unspecified SNOMED: 7906448, 69161470 Status: deteriorating AFIB -Rate control -No indication for cardioversion -Metoprolol 100 mg BID -Heparin gtt -Echocardiogram Elevated BNP -CXR clear -Echocardiogram pending' -No signs of LV fluid overload, wll monitor right sided filling pressures -Hold diuresis for now given VENTURA/CKD/Rhabdo Continue iV fluids Continue broad specturm Abx Monitor neuro exam, daily SBT Critical care 40 minutes Rafat Crooks MD Mar 27, 2020 22:43
[2020-03-27 23:10] LABS: ANION GAP 16 mmol/L (5-15); BLOOD UREA NITROGEN 92 mg/dL (7-18); CALCIUM 8.3 MG/DL (8.5-10.1); CARBON DIOXIDE 18 MMOL/L (21-32); CHLORIDE 110 MMOL/L (98-107); POTASSIUM 5.3 MMOL/L (3.5-5.1); SODIUM 144 MMOL/L (136-145)
--- NOTE | 2020-03-27 23:13 | NUR ---
ED Nurse Note: Returned call received from Dr. Mendez who intends to contact power brake rebuilder for orders for amiodarone. Also Vanessa informed of current inaccurate orders regarding oral route. Will await change in orders and new order to attend to tachycardia.
[2020-03-27 23:25] LABS: CREATINE KINASE 5981 U/L (26-308)
[2020-03-28] VITALS (52 sets, daily range): BP systolic 53–148; BP diastolic 34–79
[2020-03-28] MEDS: Sodium Bicarbonate 50 ML in Sodium Chloride 1,000 ML IV SCH ×2 (00:19→13:45)
--- NOTE | 2020-03-28 00:40 | NUR ---
ED Nurse Note: Report rendered to Kevin ARCOS, in person.
--- NOTE | 2020-03-28 00:54 | NUR ---
ED Nurse Note: Patient transported to ICU without incident by two RN and RT. Patient was manually bagged with O2 administration.
--- NOTE | 2020-03-28 01:00 | NUR ---
NURSE NOTES: Received patient from [facility] [employer] [facility]. Patient is awake, non-verbal. Patient is on an Osmolol gtt at 200mcg/min for SVT in the 150s. Patients temperature is 100.4F. Desai catheter noted, PIV noted. Decubitus on sacral area. Pictures taken. NAD at this time.
--- NOTE | 2020-03-28 01:30 | NUR ---
NURSE NOTES: Restarted NaHCO3 gtt. Patient has only one PIV. Attempted to insert another IV line but unsuccessful. Will try again later. Patient tolerating ventilator without any problems. Non-labored breathing, breathing pattern normal.
--- NOTE | 2020-03-28 02:00 | NUR ---
NURSE NOTES: Repositioned patient and oral care performed.
--- NOTE | 2020-03-28 04:00 | NUR ---
NURSE NOTES: Patients HR is 150-160s. Patient awake, eyes open spontaneously, not responsive to command. Spo2 100% at 40% Fio2. No acute respiratory distress. Temperature is 100.6F. Patients on cooling blanket. Blood pressures MAP at 60.
[2020-03-28 04:51] LABS: ANION GAP 17 mmol/L (5-15); BLOOD UREA NITROGEN 95 mg/dL (7-18); CALCIUM 8.1 MG/DL (8.5-10.1); CARBON DIOXIDE 17 MMOL/L (21-32); CHLORIDE 110 MMOL/L (98-107); CREATININE 5.9 MG/DL (0.55-1.30); POTASSIUM 4.9 MMOL/L (3.5-5.1); SODIUM 144 MMOL/L (136-145)
[2020-03-28 04:57] LABS: BASOPHILS % (AUTO) 0.4 % (0.0-2.0); HEMATOCRIT 34.1 % (37.0-47.0); MEAN CORPUSCULAR VOLUME 80 FL (80-99); MONOCYTES % (AUTO) 12.7 % (1.0-10.0); NEUTROPHILS % (AUTO) 79.9 % (45.0-75.0); PLATELET COUNT 197 K/UL (150-450); RED BLOOD COUNT 4.29 M/UL (4.20-5.40); RED CELL DISTRIBUTION WIDTH 18.9 % (11.6-14.8); WHITE BLOOD COUNT 7.9 K/UL (4.8-10.8)
[2020-03-28 05:04] LABS: ALANINE AMINOTRANSFERASE 31 U/L (12-78); ALBUMIN 1.6 G/DL (3.4-5.0); ALBUMIN/GLOBULIN RATIO 0.4 (1.0-2.7); ALKALINE PHOSPHATASE 159 U/L (46-116); ASPARTATE AMINO TRANSFERASE 144 U/L (15-37); BILIRUBIN,TOTAL 0.6 MG/DL (0.2-1.0); CREATINE KINASE 5241 U/L (26-308)
--- NOTE | 2020-03-28 05:45 | Consultation ---
DATE OF CONSULTATION: 03/27/2020 INFECTIOUS DISEASES CONSULTATION CONSULTING PHYSICIAN: Jose Valdes M.D. ATTENDING PHYSICIAN: Malathi Mendez M.D. REFERRING PHYSICIAN: Malathi Mendez M.D. REASON FOR CONSULTATION: Sepsis, elevated lactic acid. CHIEF COMPLAINT: The patient's chief complaint coming into the hospital is tachycardia, dehydration. HISTORY OF PRESENT ILLNESS: This is a 69-year-old female who presents to [facility] with what looks like initial lethargy and weakness. The patient had an elevated lactic acid and was cultured. The patient had on chest x-ray atelectasis. The patient now has respiratory failure, on a vent and is going to the ICU. It looks like she is not on pressors. Infectious Diseases consultation was requested for antibiotic management of the patient. She was started empirically on vancomycin and cefepime for sepsis. I am adding Flagyl. Followup chest x-ray is ordered. Cultures have been ordered. COVID testing is also underway. The patient has no fevers at this time. MAR was noted. Orders were noted. Notes are reviewed. The patient cannot add to this history. I saw the patient in the emergency room. REVIEW OF SYSTEMS: CONSTITUTIONAL: The patient is lethargic, weak. She came in with dehydration. She currently has no fevers. I do not believe she is on pressors. She is on a vent. HEAD AND NECK: Orally intubated. CARDIAC: No pressors that I am aware of. GASTROINTESTINAL: No nausea, vomiting, or diarrhea. GENITOURINARY: She has a Desai. PULMONARY: She is short of breath on a vent. SKIN: No new rash. NEUROLOGIC: No seizures. Generalized weakness, poorly responsive. No seizure activity. No significant secretions seen. Review of systems is otherwise limited in this patient. No seizure activity also. Review of systems otherwise limited in this patient. PAST MEDICAL HISTORY: The patient's past medical history includes the following:. The patient has a past medical history of atrial flutter, hypertension, hyperkalemia, encephalopathy, renal failure, atrial fibrillation with rapid ventricular response. She has a history of diabetes as I mentioned, hypertension, also history of diabetes, seizures, cardiac and neurologic disease, and chronic neck pain. ALLERGIES: Include lisinopril. No antibiotic allergies. SOCIAL HISTORY: Negative for smoking, alcohol, or drug abuse. I believe she comes from a [facility] facility also. FAMILY HISTORY: Noncontributory. Negative for exposure to tuberculosis or cancer. MEDICATIONS: Upon reviewing the MAR, she is on the following medications: She is on cefepime and vancomycin. She is on Neurontin, IV fluids, Flagyl. She is on heparin and docusate. She was given metoprolol, heparin, acetaminophen, morphine, bisacodyl, magnesium hydroxide, polyethylene glycol, Zofran, Reglan, lorazepam, and temazepam. Outside medications noted and reconciliated. Antibiotics, vancomycin, Rocephin, and Flagyl. PHYSICAL EXAMINATION: VITAL SIGNS: Temperature is 98.7, pulse rate 105, respiratory rate 18, blood pressure 107/56, and saturation 100% on FiO2 of 100%. GENERAL: Lethargic, weak. HEAD AND NECK: Orally intubated. No icterus. Normocephalic. No JVD. No icterus. HEART: Regular. No obvious gallop or murmur. ABDOMEN: Soft. Positive bowel sounds. LUNGS: Bilateral rhonchi and rales. SKIN: No rash. MUSCULOSKELETAL: No effusions. Legs are without cellulitis. She has edema. PERIPHERAL VASCULAR: No gangrene. GENITOURINARY: I think she has a Desai. LINES: Line sites without phlebitis. NEUROLOGIC: Generalized weakness, poorly responsive. LABORATORY AND DIAGNOSTIC DATA: White count 8.6, hemoglobin 13.1. Creatinine is 6.0. LFTs were noted. Lactic acid was 5.4. Cultures are pending. COVID testing pending. Chest x-ray shows only atelectasis. Both x-ray showed atelectasis. Report was noted and reviewed. Cultures pending. ASSESSMENT AND PLAN: 1. The patient has possible sepsis, elevated lactic acid, lethargy. She is currently in respiratory failure, renal failure, has SIRS criteria, on vent, respiratory failure with tachycardia, and altered mental status. Based on the elevated lactic acid, I agree with empiric treatment with vancomycin and cefepime for sepsis. I will add Flagyl also for anaerobic coverage. Continue vancomycin, Rocephin, and Flagyl for sepsis. Check cultures, laboratories, COVID testing, chest x-ray, and blood cultures. Continue vancomycin, Rocephin, and Flagyl for sepsis pending workup. 2. Respiratory failure, on vent. 3. Renal failure. 4. Diabetes. 5. Hypertension. 6. Diabetes and hypertension, treatment per primary care team. 7. Patient with history of altered mental status. 8. Seizure history. 9. Chronic neck pain. 10. Acute kidney injury and renal failure. 11. Allergies to lisinopril. 12. Social history is negative. 13. Family history is noncontributory. 14. MAR was noted. 15. Case was discussed with RN. 16. ICU care. 17. Skin care. 18. Continue treatment per primary consultants. Jose Valdes M.D. DR: RICHARD JOB#: [id number] CC: LISA
--- NOTE | 2020-03-28 06:00 | NUR ---
NURSE NOTES: AM meds given. Patient repositioned. IV line patent. HR maintains at 150s ST. Osmolol increased to 200mcg/min. BP us 89/56
--- NOTE | 2020-03-28 06:48 | NUR ---
NURSE NOTES: Hung new bag Osmolol.
--- NOTE | 2020-03-28 07:15 | NUR ---
NURSE NOTES: Patient received lying in bed, awake, does not track or follow. Orally intubated, vent settings: AC- 18, TV-500, FiO2-40%, PEEP - 5, saturating 100%. No respiratory distress. No tube feeding ordered. On Esmolol 200 mcg/kg/min via left EJ, infusing well. Patient is tachycardic on the monitor, rate of 140s. Safety measures implemented, bed in lowest position. Upper and lower extremities elevated. Will monitor the patient.
--- NOTE | 2020-03-28 08:23 | NUR ---
RD ASSESSMENT & RECOMMENDATIONS SEE CARE ACTIVITY FOR COMPLETE ASSESSMENT DAILY ESTIMATED NEEDS: Needs based on Critical care, sepsis 75.8kg adj 20-28 kcals/kg 0410-2139 total kcals 1.25-1.5 g protein/kg 95-152 g total protein 25-30 mL/kg 8590-4884 total fluid mLs NUTRITION DIAGNOSIS: Swallowing difficulty r/t respiratory status as evidenced by pt orally intubated, ICU status. CURRENT TF:NPO ENTERAL NUTRITION RECOMMENDATIONS: VITAL AF 1.2 @55ml/hr x24 hrs to provide 1320ml, 1584 kcal, 99g pro, 1071ml free H2O - As medically able, rec non oral feeds. Start VITAL 1.2 @low rate 15ml/hr x6 hrs, advance as tolerated 10ml/hr q4-6 hrs to goal. - Flush per MD/ HOB over 30 degrees -> IF POTASSIUM REMAINS ELEVATED-> Rec NEPRO w/ goal rate of 40ml/hr for 24 hrs to provide 960ml, 1728 kcal, 78g pro, 698ml free H2O. -> Feed w/ hemodynamic stability. ADDITIONAL RECOMMENDATIONS: 1) Maintain calibrated bed scale wts (248lbs vs 217lbs last adm) 2) F/up w/ WC eval. NPO at this time 3) Monitor lytes, need for renal formula 4) Feed when hemodynamically stable -> trophic feeds w/ low BP to maintain gut integrity . .
--- NOTE | 2020-03-28 08:34 | Nephrology Progress Note ---
Assessment/Plan Plan #VENTURA due to ATN in the setting of rhabdo- on CKD #hyperkalemia #Rhabdo #UTI sepsis #Lactic acidsis #AMS - toxic metabolic encephalopathy #Hypoxemic resp failure #afib with RVR #HLD #Obesity - no acute indication for HD - monitor UOP - DC IVF- - 2 amps of bicarb - albumin for BP support - check pm BMP - metop per Cardiology - monitor K,bmp - will discuss need for HD if no improvement with hydration - weiss placed - strict I&Os - vent management per Dr. Cordova - cardiology eval - 2d echo - ID consult - vanco and cefepime - follow cx - monitor BMP, mag and phos daily 30 minutes of critical care time- greater than 50% on care coordination and counseling Subjective ROS Limited/Unobtainable: Yes Subjective Cr slowly downtrending remains intubated tachycardic Objective Objective Last 24 Hour Vital Signs Date Time Temp Pulse Resp B/P (MAP) Pulse Ox O2 Delivery O2 Flow Rate FiO2 03/28/20 07:01 148 22 40 03/28/20 07:00 148 22 85/64 (71) 100 03/28/20 06:45 148 22 85/63 (70) 100 03/28/20 06:32 155 20 03/28/20 06:30 150 21 87/65 (72) 100 03/28/20 06:00 153 19 89/56 (67) 100 03/28/20 05:57 153 19 83/58 (66) 100 03/28/20 05:45 154 18 77/54 (62) 100 03/28/20 05:30 154 19 77/53 (61) 100 03/28/20 05:00 154 19 88/59 (69) 03/28/20 04:30 171 20 105/62 (76) 100 03/28/20 04:00 Mechanical Ventilator 03/28/20 04:00 160 03/28/20 04:00 100.6 169 21 77/50 (59) 03/28/20 04:00 40 03/28/20 03:30 161 22 82/59 (67) 03/28/20 03:08 159 21 40 03/28/20 03:00 160 21 88/61 (70) 03/28/20 02:50 160 23 85/54 (64) 03/28/20 02:30 159 21 84/60 (68) 03/28/20 02:00 166 22 83/60 (68) 100 03/28/20 01:40 163 23 89/72 (78) 100 03/28/20 01:30 160 21 82/62 (69) 100 03/28/20 01:26 168 22 53/34 (40) 100 03/28/20 01:00 155 03/28/20 01:00 Mechanical Ventilator 03/28/20 00:54 98.7 105 20 107/56 100 Mechanical Ventilator 2.0 40 03/28/20 00:00 40 03/28/20 00:00 Mechanical Ventilator 03/27/20 23:47 156 20 40 03/27/20 21:00 155 83/49 03/27/20 20:14 98.7 105 18 107/56 100 Mechanical Ventilator 2.0 100 03/27/20 19:19 103 19 100 03/27/20 19:15 98.7 102 18 102/62 100 Mechanical Ventilator 2.0 40 03/27/20 18:08 89 15 97/47 100 Mechanical Ventilator 40 03/27/20 17:03 98.7 98 15 90/48 100 Mechanical Ventilator 40 03/27/20 16:03 92 16 90/61 100 Mechanical Ventilator 40 03/27/20 15:55 99 18 100 03/27/20 15:02 98.7 74 16 112/73 100 Mechanical Ventilator 40 03/27/20 13:52 86 20 104/60 99 Mechanical Ventilator 40 03/27/20 13:50 2.0 40 03/27/20 13:00 75 15 110/76 96 Mechanical Ventilator 40 03/27/20 12:00 99.0 89 16 90/62 99 Mechanical Ventilator 100 03/27/20 11:56 97 20 100 03/27/20 11:40 97 33 114/80 100 Mechanical Ventilator 100 03/27/20 09:26 119 126/101 03/27/20 09:22 119 126/101 03/27/20 09:09 119 18 126/101 99 Nasal Cannula 2.0 03/27/20 09:03 146 126/101 03/27/20 08:57 166 118/75 03/27/20 08:50 195 115/74 03/27/20 08:35 195 22 115/74 99 Nasal Cannula 2.0 Intake and Output 03/27/20 03/28/20 19:00 07:00 Intake Total 200 ml 1198.790 ml Output Total 235 ml Balance 200 ml 963.790 ml Intake IV Total 200 ml 1198.790 ml Output Urine Total 235 ml Laboratory Tests 03/27/20 13:10: Arterial Blood pH 7.190*L, Arterial Blood Partial Pressure CO2 36.4, Arterial Blood Partial Pressure O2 481.3H, Arterial Blood HCO3 13.6*L, Arterial Blood Oxygen Saturation 99.8, Arterial Blood Base Excess -13.7*L, Kelvin Test Positive 03/27/20 20:05: Arterial Blood pH 7.274L, Arterial Blood Partial Pressure CO2 35.7, Arterial Blood Partial Pressure O2 141.0H, Arterial Blood HCO3 16.2*L, Arterial Blood Oxygen Saturation 98.5, Arterial Blood Base Excess -9.8*L, Kelvin Test Positive 03/27/20 22:38: Sodium Level 144, Potassium Level 5.3H, Chloride Level 110H, Carbon Dioxide Level 18L, Anion Gap 16H, Blood Urea Nitrogen 92H, Creatinine 6.0H, Estimat Glomerular Filtration Rate 8.5, Glucose Level 107H, Calcium Level 8.3L, Total Creatine Kinase 5981H 03/27/20 23:05: Lactic Acid Level 2.30H 03/27/20 23:45: Lactic Acid Level 2.60H 03/28/20 04:05: White Blood Count 7.9, Red Blood Count 4.29, Hemoglobin 11.0L, Hematocrit 34.1L , Mean Corpuscular Volume 80, Mean Corpuscular Hemoglobin 25.6L, Mean Corpuscular Hemoglobin Concent 32.1, Red Cell Distribution Width 18.9H, Platelet Count 197, Mean Platelet Volume 7.3, Neutrophils (%) (Auto) 79.9H, Lymphocytes (%) (Auto) 7.0L, Monocytes (%) (Auto) 12.7H, Eosinophils (%) (Auto) 0.0, Basophils (%) (Auto) 0.4, Sodium Level 144, Potassium Level 4.9, Chloride Level 110H, Carbon Dioxide Level 17L, Anion Gap 17H, Blood Urea Nitrogen 95H, Creatinine 5.9H, Estimat Glomerular Filtration Rate 8.6, Glucose Level 112H, Calcium Level 8.1L, Total Bilirubin 0.6, Aspartate Amino Transf (AST/SGOT) 144H , Alanine Aminotransferase (ALT/SGPT) 31, Alkaline Phosphatase 159H, Total Creatine Kinase 5241H, Total Protein 5.5#L, Albumin 1.6L, Globulin 3.9, Albumin/ Globulin Ratio 0.4L Height (Feet): 5 Height (Inches): 6.00 Weight (Pounds): 248 Objective General Appearance: other - intubated Lines, tubes and drains: peripheral HEENT: normocephalic, atraumatic Neck: non-tender, normal alignment, supple Respiratory/Chest: lungs clear Cardiovascular/Chest: normal peripheral pulses, tachycardia, irregularly irregular Abdomen: soft Skin Exam: normal pigmentation Neurologic: disoriented Venkat Montes M.D. Mar 28, 2020 08:34
[2020-03-28] MEDS: Heparin 5000 units/ml inj SUBQ SCH (08:35)
--- NOTE | 2020-03-28 08:50 | NUR ---
Dr. Crooks made aware of HR 145-149/min ( sustain)
[2020-03-28] MEDS: Docusate 100mg cap ORAL SCH ×2 (09:00→20:01)
[2020-03-28] MEDS: Metoprolol Tartrate 100mg tab ORAL SCH ×2 (09:38→20:01)
--- NOTE | 2020-03-28 09:38 | NUR ---
NURSE NOTES: Patient needing NG/OG tube placement, medications unable to be administered.
--- NOTE | 2020-03-28 10:42 | NUR ---
NURSE NOTES: Informed Dr. Crooks of pt's 12 EKG. Ordered amiodarone gtt.
[2020-03-28] MEDS ORDERED: Amiodarone 900 MG in D5W 500ml 482 ML IV ONE (10:45)
--- NOTE | 2020-03-28 10:58 | NUR ---
NURSE NOTES: Dr. Crooks called and canceled amiodarone gtt and continue esmolol drip d/t liver function.
--- NOTE | 2020-03-28 10:58 | Pulmonology Progress Note ---
Subjective Interval Events: Intubated; no new events Constitutional: Reports: no symptoms HEENT: Repors: no symptoms Respiratory: Reports: no symptoms Cardiovascular: Reports: no symptoms Gastrointestinal/Abdominal: Reports: no symptoms Allergies: Coded Allergies: LISINOPRIL (Verified Allergy, Unknown, Hives, 04/12/14) Objective Last 24 Hour Vital Signs Date Time Temp Pulse Resp B/P (MAP) Pulse Ox O2 Delivery O2 Flow Rate FiO2 03/28/20 10:50 144 22 40 03/28/20 09:30 144 23 97/58 (71) 03/28/20 09:15 144 23 103/57 (72) 03/28/20 09:00 145 21 93/65 (74) 03/28/20 09:00 40 03/28/20 08:45 148 22 101/65 (77) 03/28/20 08:30 144 20 86/61 (69) 03/28/20 08:15 145 23 80/53 (62) 03/28/20 08:00 98.7 145 21 84/60 (68) 03/28/20 08:00 Mechanical Ventilator 03/28/20 07:01 148 22 40 03/28/20 07:00 148 22 85/64 (71) 100 03/28/20 06:45 148 22 85/63 (70) 100 03/28/20 06:32 155 20 03/28/20 06:30 150 21 87/65 (72) 100 03/28/20 06:00 153 19 89/56 (67) 100 03/28/20 05:57 153 19 83/58 (66) 100 03/28/20 05:45 154 18 77/54 (62) 100 03/28/20 05:30 154 19 77/53 (61) 100 03/28/20 05:00 154 19 88/59 (69) 03/28/20 04:30 171 20 105/62 (76) 100 03/28/20 04:00 Mechanical Ventilator 03/28/20 04:00 160 03/28/20 04:00 100.6 169 21 77/50 (59) 03/28/20 04:00 40 03/28/20 03:30 161 22 82/59 (67) 03/28/20 03:08 159 21 40 03/28/20 03:00 160 21 88/61 (70) 03/28/20 02:50 160 23 85/54 (64) 03/28/20 02:30 159 21 84/60 (68) 03/28/20 02:00 166 22 83/60 (68) 100 03/28/20 01:40 163 23 89/72 (78) 100 03/28/20 01:30 160 21 82/62 (69) 100 03/28/20 01:26 168 22 53/34 (40) 100 03/28/20 01:00 155 03/28/20 01:00 Mechanical Ventilator 03/28/20 00:54 98.7 105 20 107/56 100 Mechanical Ventilator 2.0 40 03/28/20 00:00 40 03/28/20 00:00 Mechanical Ventilator 03/27/20 23:47 156 20 40 03/27/20 21:00 155 83/49 03/27/20 20:14 98.7 105 18 107/56 100 Mechanical Ventilator 2.0 100 03/27/20 19:19 103 19 100 03/27/20 19:15 98.7 102 18 102/62 100 Mechanical Ventilator 2.0 40 03/27/20 18:08 89 15 97/47 100 Mechanical Ventilator 40 03/27/20 17:03 98.7 98 15 90/48 100 Mechanical Ventilator 40 03/27/20 16:03 92 16 90/61 100 Mechanical Ventilator 40 03/27/20 15:55 99 18 100 03/27/20 15:02 98.7 74 16 112/73 100 Mechanical Ventilator 40 03/27/20 13:52 86 20 104/60 99 Mechanical Ventilator 40 03/27/20 13:50 2.0 40 03/27/20 13:00 75 15 110/76 96 Mechanical Ventilator 40 03/27/20 12:00 99.0 89 16 90/62 99 Mechanical Ventilator 100 03/27/20 11:56 97 20 100 03/27/20 11:40 97 33 114/80 100 Mechanical Ventilator 100 Intake and Output 03/27/20 03/28/20 19:00 07:00 Intake Total 200 ml 1198.790 ml Output Total 235 ml Balance 200 ml 963.790 ml Intake IV Total 200 ml 1198.790 ml Output Urine Total 235 ml General Appearance: no acute distress HEENT: normocephalic Respiratory: chest wall non-tender, lungs clear Cardiovascular: normal peripheral pulses, normal rate Abdomen: normal bowel sounds Microbiology Date/Time Source Procedure Growth Status 03/26/20 19:15 Blood Blood Culture - Preliminary NO GROWTH AFTER 24 HOURS Resulted 03/26/20 19:05 Blood Blood Culture - Preliminary NO GROWTH AFTER 24 HOURS Resulted 03/27/20 16:30 Nasopharynx SARS-CoV-2 RdRp Gene Assay - Final Complete 03/26/20 21:15 Nasopharynx Coronavirus COVID-19 PCR ([facility]) - Final Complete Laboratory Tests 03/27/20 13:10: Arterial Blood pH 7.190*L, Arterial Blood Partial Pressure CO2 36.4, Arterial Blood Partial Pressure O2 481.3H, Arterial Blood HCO3 13.6*L, Arterial Blood Oxygen Saturation 99.8, Arterial Blood Base Excess -13.7*L, Kelvin Test Positive 03/27/20 20:05: Arterial Blood pH 7.274L, Arterial Blood Partial Pressure CO2 35.7, Arterial Blood Partial Pressure O2 141.0H, Arterial Blood HCO3 16.2*L, Arterial Blood Oxygen Saturation 98.5, Arterial Blood Base Excess -9.8*L, Kelvin Test Positive 03/27/20 22:38: Sodium Level 144, Potassium Level 5.3H, Chloride Level 110H, Carbon Dioxide Level 18L, Anion Gap 16H, Blood Urea Nitrogen 92H, Creatinine 6.0H, Estimat Glomerular Filtration Rate 8.5, Glucose Level 107H, Calcium Level 8.3L, Total Creatine Kinase 5981H 03/27/20 23:05: Lactic Acid Level 2.30H 03/27/20 23:45: Lactic Acid Level 2.60H 03/28/20 04:05: White Blood Count 7.9, Red Blood Count 4.29, Hemoglobin 11.0L, Hematocrit 34.1L , Mean Corpuscular Volume 80, Mean Corpuscular Hemoglobin 25.6L, Mean Corpuscular Hemoglobin Concent 32.1, Red Cell Distribution Width 18.9H, Platelet Count 197, Mean Platelet Volume 7.3, Neutrophils (%) (Auto) 79.9H, Lymphocytes (%) (Auto) 7.0L, Monocytes (%) (Auto) 12.7H, Eosinophils (%) (Auto) 0.0, Basophils (%) (Auto) 0.4, Sodium Level 144, Potassium Level 4.9, Chloride Level 110H, Carbon Dioxide Level 17L, Anion Gap 17H, Blood Urea Nitrogen 95H, Creatinine 5.9H, Estimat Glomerular Filtration Rate 8.6, Glucose Level 112H, Calcium Level 8.1L, Total Bilirubin 0.6, Aspartate Amino Transf (AST/SGOT) 144H , Alanine Aminotransferase (ALT/SGPT) 31, Alkaline Phosphatase 159H, Total Creatine Kinase 5241H, Total Protein 5.5#L, Albumin 1.6L, Globulin 3.9, Albumin/ Globulin Ratio 0.4L 03/28/20 10:14: Arterial Blood pH 7.275L, Arterial Blood Partial Pressure CO2 33.0L, Arterial Blood Partial Pressure O2 141.0H, Arterial Blood HCO3 15.0*L, Arterial Blood Oxygen Saturation 98.1, Arterial Blood Base Excess -10.8*L, Kelvin Test Positive Current Medications Medications (Trade) Dose Ordered Sig/Debbie Route PRN Reason Start Time Stop Time Status Last Admin Dose Admin Acetaminophen (Tylenol) 650 mg Q4H PRN ORAL Mild Pain (Pain Scale 1-3) 03/26/20 21:15 04/25/20 21:14 Acetaminophen (Tylenol) 650 mg Q4H PRN ORAL Temp >100.5 03/26/20 21:15 04/25/20 21:14 Al Hydroxide/Mg Hydroxide (Mylanta II) 30 ml Q6H PRN ORAL dyspepsia 03/26/20 21:15 04/25/20 21:14 Bisacodyl (Dulcolax) 10 mg HSPRN PRN RECTAL Constipation 03/26/20 21:15 06/24/20 21:14 Cefepime HCl 1 gm/ Dextrose 55 ml @ 110 mls/hr Q24H IVPB 03/28/20 15:00 04/04/20 14:59 Dextrose (Dextrose 50%) 25 ml Q30M PRN IV Hypoglycemia 03/26/20 21:15 06/24/20 21:14 Dextrose (Dextrose 50%) 50 ml Q30M PRN IV Hypoglycemia 03/26/20 21:15 06/24/20 21:14 Diphenhydramine HCl (Benadryl) 25 mg Q6H PRN ORAL Itching/Pruritis 03/26/20 21:15 04/25/20 21:14 Docusate Sodium (Colace) 100 mg EVERY 12 HOURS ORAL 03/27/20 09:00 04/26/20 08:59 03/27/20 09:22 Esmolol HCl 250 ml @ 0 mls/hr Q24H IV 03/28/20 11:30 04/27/20 11:29 Gabapentin (Neurontin) 300 mg BEDTIME ORAL 03/27/20 21:00 04/26/20 20:59 03/27/20 21:00 Heparin Sodium (Porcine) (Heparin 5000 units/ml) 5,000 units EVERY 12 HOURS SUBQ 03/27/20 09:00 05/11/20 08:59 03/28/20 08:35 Lorazepam (Ativan 2mg/ml 1ml) 0.5 mg Q4H PRN IV For Anxiety 03/26/20 21:15 04/02/20 21:14 Magnesium Hydroxide (Mom) 30 ml HSPRN PRN ORAL Constipation 03/26/20 21:15 04/25/20 21:14 Metoclopramide HCl (Reglan) 10 mg Q6H PRN IVP Nausea & Vomiting 03/26/20 21:15 04/25/20 21:14 Metoprolol Tartrate (Lopressor) 100 mg EVERY 12 HOURS ORAL 03/27/20 09:00 06/25/20 08:59 03/27/20 09:22 Metronidazole 100 ml @ 100 mls/hr Q8HR IVPB 03/27/20 22:00 04/03/20 21:59 03/28/20 06:17 Morphine Sulfate (Morphine Sulfate) 2 mg Q4H PRN IVP Moderate Pain (Pain Scale 4-6) 03/26/20 21:15 04/02/20 21:14 Morphine Sulfate (Morphine Sulfate) 4 mg Q4H PRN IVP Severe Pain (Pain Scale 7-10) 03/26/20 21:15 04/02/20 21:14 Ondansetron HCl (Zofran) 4 mg Q6H PRN IVP Nausea & Vomiting 03/26/20 21:15 04/25/20 21:14 Polyethylene Glycol (Miralax) 17 gm HSPRN PRN ORAL Constipation 03/26/20 21:15 04/25/20 21:14 Sodium Bicarbonate 50 ml/ Sodium Chloride 1,050 ml @ 75 mls/hr Q14H IV 03/27/20 23:00 04/26/20 22:59 03/28/20 00:19 Temazepam (Restoril) 15 mg HSPRN PRN ORAL Insomnia 03/26/20 21:15 04/02/20 21:14 Vancomycin HCl (Vanco pharmacy to dose) 1 ea DAILY PRN MISC Per rx protocol 03/27/20 20:15 04/26/20 20:14 Assessment/Plan Assessment/Plan IMPRESSION: 1. Hyperkalemia. 2. Sinus tachycardia. 3. Rule out sepsis. 4. Hypertension. 5. Seizure disorder. 6. Acute renal failure. 7. Respiratory failure DISCUSSION: A Continue ICU care Correction of electrolytes Check ABg Will begin weaning in Am 03/29/20 Abx Seven Yao Omar Syed MD Mar 28, 2020 10:58
[2020-03-28] MEDS ORDERED: Heparin1,000 units/500ml Premix(Conc:2 units/ml) IV ONE (11:00)
[2020-03-28] MEDS ORDERED: Lidocaine 1% Plain 30 ml INJ ONE (11:00)
--- NOTE | 2020-03-28 11:06 | NUR ---
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 KYLEE spoke w/ pt's daughter Lainey Reaves [phone] and obtained information. Pt resides w/ her boyfriend Armand Giron at [address] [place] [address]. Pt was [facility] to [facility] on 01/24/2020. Pt is and has one adult daughter. Pt does not have POA/AD. It is unknown if pt is legally to Armand Giron [phone]. KYLEE left a vm to Armand Giron for call back. Lainey informed this SW that pt expressed full code in the past. Lainey is willing to make decision on behalf of pt if she cannot make one for herself.
--- NOTE | 2020-03-28 11:38 | NUR ---
NURSE NOTES: Left a message for Dr. Mendez, patient has no NG or OG tube for nutritional support and medication administration and also patient for PICC insertion per Dr. Cordova's order. Patient remains on Esmolol drip. Will await call back.
--- NOTE | 2020-03-28 11:55 | NUR ---
NURSE NOTES: Dr. Roy in unit, verified isolation status, per MD keep isolation for now till cleared to be off of isolation.
--- NOTE | 2020-03-28 13:02 | Infectious Diseases Prog Note ---
Assessment/Plan Assessment/Plan F A) 1) possible sepsis, elevated lactic acid 2) respiratory failure, covid testing negative x 2 3) dony 4) pmh noted 5) allergies - lisinopril P) 1) cefepime and vancomycin, flagyl 2) f/u on cultures, labs and chest x-ray 3) icu care 4) will f/u Subjective Constitutional: Reports: fever HEENT: Reports: congestion Respiratory: Reports: shortness of breath, other - on vent Cardiovascular: Reports: other - no pressors Allergies: Coded Allergies: LISINOPRIL (Verified Allergy, Unknown, Hives, 04/12/14) Objective Vital Signs Last 24 Hour Vital Signs Date Time Temp Pulse Resp B/P (MAP) Pulse Ox O2 Delivery O2 Flow Rate FiO2 03/28/20 11:15 145 21 124/65 (84) 03/28/20 11:00 145 19 106/50 (68) 03/28/20 10:50 144 22 40 03/28/20 10:30 142 20 93/62 (72) 03/28/20 10:00 141 21 95/58 (70) 03/28/20 09:30 144 23 97/58 (71) 03/28/20 09:15 144 23 103/57 (72) 03/28/20 09:00 145 21 93/65 (74) 03/28/20 09:00 40 03/28/20 08:45 148 22 101/65 (77) 03/28/20 08:30 144 20 86/61 (69) 03/28/20 08:15 145 23 80/53 (62) 03/28/20 08:00 98.7 145 21 84/60 (68) 03/28/20 08:00 Mechanical Ventilator 03/28/20 07:01 148 22 40 03/28/20 07:00 148 22 85/64 (71) 100 03/28/20 06:45 148 22 85/63 (70) 100 03/28/20 06:32 155 20 03/28/20 06:30 150 21 87/65 (72) 100 03/28/20 06:00 153 19 89/56 (67) 100 03/28/20 05:57 153 19 83/58 (66) 100 03/28/20 05:45 154 18 77/54 (62) 100 03/28/20 05:30 154 19 77/53 (61) 100 03/28/20 05:00 154 19 88/59 (69) 03/28/20 04:30 171 20 105/62 (76) 100 03/28/20 04:00 Mechanical Ventilator 03/28/20 04:00 160 03/28/20 04:00 100.6 169 21 77/50 (59) 03/28/20 04:00 40 03/28/20 03:30 161 22 82/59 (67) 03/28/20 03:08 159 21 40 03/28/20 03:00 160 21 88/61 (70) 03/28/20 02:50 160 23 85/54 (64) 03/28/20 02:30 159 21 84/60 (68) 03/28/20 02:00 166 22 83/60 (68) 100 03/28/20 01:40 163 23 89/72 (78) 100 03/28/20 01:30 160 21 82/62 (69) 100 03/28/20 01:26 168 22 53/34 (40) 100 03/28/20 01:00 155 03/28/20 01:00 Mechanical Ventilator 03/28/20 00:54 98.7 105 20 107/56 100 Mechanical Ventilator 2.0 40 03/28/20 00:00 40 03/28/20 00:00 Mechanical Ventilator 03/27/20 23:47 156 20 40 03/27/20 21:00 155 83/49 03/27/20 20:14 98.7 105 18 107/56 100 Mechanical Ventilator 2.0 100 03/27/20 19:19 103 19 100 03/27/20 19:15 98.7 102 18 102/62 100 Mechanical Ventilator 2.0 40 03/27/20 18:08 89 15 97/47 100 Mechanical Ventilator 40 03/27/20 17:03 98.7 98 15 90/48 100 Mechanical Ventilator 40 03/27/20 16:03 92 16 90/61 100 Mechanical Ventilator 40 03/27/20 15:55 99 18 100 03/27/20 15:02 98.7 74 16 112/73 100 Mechanical Ventilator 40 03/27/20 13:52 86 20 104/60 99 Mechanical Ventilator 40 03/27/20 13:50 2.0 40 Height (Feet): 5 Height (Inches): 6.00 Weight (Pounds): 248 General Appearance: no acute distress HEENT: normocephalic, atraumatic, anicteric Respiratory/Chest: crackles/rales, rhonchi - bilaterally Cardiovascular: normal rate, regular rhythm Microbiology Date/Time Source Procedure Growth Status 03/26/20 19:15 Blood Blood Culture - Preliminary NO GROWTH AFTER 24 HOURS Resulted 03/26/20 19:05 Blood Blood Culture - Preliminary NO GROWTH AFTER 24 HOURS Resulted 03/27/20 16:30 Nasopharynx SARS-CoV-2 RdRp Gene Assay - Final Complete 03/26/20 21:15 Nasopharynx Coronavirus COVID-19 PCR ([facility]) - Final Complete Laboratory Tests Test 03/27/20 13:10 03/27/20 20:05 03/27/20 22:38 03/27/20 23:05 Arterial Blood pH 7.190 (7.350-7.450) 7.274 (7.350-7.450) Arterial Blood Partial Pressure CO2 36.4 mmHg (35.0-45.0) 35.7 mmHg (35.0-45.0) Arterial Blood Partial Pressure O2 481.3 mmHg (75.0-100.0) H 141.0 mmHg (75.0-100.0) H Arterial Blood HCO3 13.6 mmol/L (22.0-26.0) *L 16.2 mmol/L (22.0-26.0) *L Arterial Blood Oxygen Saturation 99.8 % (95-100) 98.5 % (95-100) Arterial Blood Base Excess -13.7 (-2-2) *L -9.8 (-2-2) *L Kelvin Test Positive Positive Sodium Level 144 MMOL/L (136-145) Potassium Level 5.3 MMOL/L (3.5-5.1) H Chloride Level 110 MMOL/L (98-107) H Carbon Dioxide Level 18 MMOL/L (21-32) L Anion Gap 16 mmol/L (5-15) H Blood Urea Nitrogen 92 mg/dL (7-18) H Creatinine 6.0 MG/DL (0.55-1.30) H Estimat Glomerular Filtration Rate 8.5 mL/min (>60) Glucose Level 107 MG/DL (74-106) H Calcium Level 8.3 MG/DL (8.5-10.1) L Total Creatine Kinase 5981 U/L (26-308) H Lactic Acid Level 2.30 mmol/L (0.4-2.0) H Test 03/27/20 23:45 03/28/20 04:05 03/28/20 10:14 03/28/20 12:10 Lactic Acid Level 2.60 mmol/L (0.66-2.22) H White Blood Count 7.9 K/UL (4.8-10.8) Red Blood Count 4.29 M/UL (4.20-5.40) Hemoglobin 11.0 G/DL (12.0-16.0) L Hematocrit 34.1 % (37.0-47.0) L Mean Corpuscular Volume 80 FL (80-99) Mean Corpuscular Hemoglobin 25.6 PG (27.0-31.0) L Mean Corpuscular Hemoglobin Concent 32.1 G/DL (32.0-36.0) Red Cell Distribution Width 18.9 % (11.6-14.8) H Platelet Count 197 K/UL (150-450) Mean Platelet Volume 7.3 FL (6.5-10.1) Neutrophils (%) (Auto) 79.9 % (45.0-75.0) H Lymphocytes (%) (Auto) 7.0 % (20.0-45.0) L Monocytes (%) (Auto) 12.7 % (1.0-10.0) H Eosinophils (%) (Auto) 0.0 % (0.0-3.0) Basophils (%) (Auto) 0.4 % (0.0-2.0) Sodium Level 144 MMOL/L (136-145) Pending Potassium Level 4.9 MMOL/L (3.5-5.1) Pending Chloride Level 110 MMOL/L (98-107) H Pending Carbon Dioxide Level 17 MMOL/L (21-32) L Pending Anion Gap 17 mmol/L (5-15) H Blood Urea Nitrogen 95 mg/dL (7-18) H Pending Creatinine 5.9 MG/DL (0.55-1.30) H Pending Estimat Glomerular Filtration Rate 8.6 mL/min (>60) Pending Glucose Level 112 MG/DL (74-106) H Pending Calcium Level 8.1 MG/DL (8.5-10.1) L Pending Total Bilirubin 0.6 MG/DL (0.2-1.0) Aspartate Amino Transf (AST/SGOT) 144 U/L (15-37) H Alanine Aminotransferase (ALT/SGPT) 31 U/L (12-78) Alkaline Phosphatase 159 U/L (46-116) H Total Creatine Kinase 5241 U/L (26-308) H Total Protein 5.5 G/DL (6.4-8.2) #L Albumin 1.6 G/DL (3.4-5.0) L Globulin 3.9 g/dL Albumin/Globulin Ratio 0.4 (1.0-2.7) L Arterial Blood pH 7.275 (7.350-7.450) Arterial Blood Partial Pressure CO2 33.0 mmHg (35.0-45.0) L Arterial Blood Partial Pressure O2 141.0 mmHg (75.0-100.0) H Arterial Blood HCO3 15.0 mmol/L (22.0-26.0) *L Arterial Blood Oxygen Saturation 98.1 % (95-100) Arterial Blood Base Excess -10.8 (-2-2) *L Kelvin Test Positive Random Vancomycin Level Pending Current Medications Medications (Trade) Dose Ordered Sig/Debbie Route PRN Reason Start Time Stop Time Status Last Admin Dose Admin Acetaminophen (Tylenol) 650 mg Q4H PRN ORAL Mild Pain (Pain Scale 1-3) 03/26/20 21:15 04/25/20 21:14 Acetaminophen (Tylenol) 650 mg Q4H PRN ORAL Temp >100.5 03/26/20 21:15 04/25/20 21:14 Al Hydroxide/Mg Hydroxide (Mylanta II) 30 ml Q6H PRN ORAL dyspepsia 03/26/20 21:15 04/25/20 21:14 Bisacodyl (Dulcolax) 10 mg HSPRN PRN RECTAL Constipation 03/26/20 21:15 06/24/20 21:14 Cefepime HCl 1 gm/ Dextrose 55 ml @ 110 mls/hr Q24H IVPB 03/28/20 15:00 04/04/20 14:59 Chlorhexidine Gluconate (Laurie-Hex 2%) 1 applic DAILY@2000 TOPIC 03/28/20 20:00 06/26/20 19:59 Dextrose (Dextrose 50%) 25 ml Q30M PRN IV Hypoglycemia 03/26/20 21:15 06/24/20 21:14 Dextrose (Dextrose 50%) 50 ml Q30M PRN IV Hypoglycemia 03/26/20 21:15 06/24/20 21:14 Diphenhydramine HCl (Benadryl) 25 mg Q6H PRN ORAL Itching/Pruritis 03/26/20 21:15 04/25/20 21:14 Docusate Sodium (Colace) 100 mg EVERY 12 HOURS ORAL 03/27/20 09:00 04/26/20 08:59 03/27/20 09:22 Esmolol HCl 250 ml @ 0 mls/hr Q24H IV 03/28/20 11:30 04/27/20 11:29 03/28/20 11:19 Gabapentin (Neurontin) 300 mg BEDTIME ORAL 03/27/20 21:00 04/26/20 20:59 03/27/20 21:00 Heparin Sodium (Porcine) (Heparin 5000 units/ml) 5,000 units EVERY 12 HOURS SUBQ 03/27/20 09:00 05/11/20 08:59 03/28/20 08:35 Lorazepam (Ativan 2mg/ml 1ml) 0.5 mg Q4H PRN IV For Anxiety 03/26/20 21:15 04/02/20 21:14 Magnesium Hydroxide (Mom) 30 ml HSPRN PRN ORAL Constipation 03/26/20 21:15 04/25/20 21:14 Metoclopramide HCl (Reglan) 10 mg Q6H PRN IVP Nausea & Vomiting 03/26/20 21:15 04/25/20 21:14 Metoprolol Tartrate (Lopressor) 100 mg EVERY 12 HOURS ORAL 03/27/20 09:00 06/25/20 08:59 03/27/20 09:22 Metronidazole 100 ml @ 100 mls/hr Q8HR IVPB 03/27/20 22:00 04/03/20 21:59 03/28/20 06:17 Morphine Sulfate (Morphine Sulfate) 2 mg Q4H PRN IVP Moderate Pain (Pain Scale 4-6) 03/26/20 21:15 04/02/20 21:14 Morphine Sulfate (Morphine Sulfate) 4 mg Q4H PRN IVP Severe Pain (Pain Scale 7-10) 03/26/20 21:15 04/02/20 21:14 Ondansetron HCl (Zofran) 4 mg Q6H PRN IVP Nausea & Vomiting 03/26/20 21:15 04/25/20 21:14 Polyethylene Glycol (Miralax) 17 gm HSPRN PRN ORAL Constipation 03/26/20 21:15 04/25/20 21:14 Sodium Bicarbonate 50 ml/ Sodium Chloride 1,050 ml @ 75 mls/hr Q14H IV 03/27/20 23:00 04/26/20 22:59 03/28/20 00:19 Temazepam (Restoril) 15 mg HSPRN PRN ORAL Insomnia 03/26/20 21:15 04/02/20 21:14 Vancomycin HCl (Vanco pharmacy to dose) 1 ea DAILY PRN MISC Per rx protocol 03/27/20 20:15 04/26/20 20:14 Jose Valdes MD Mar 28, 2020 13:02
[2020-03-28] MEDS ORDERED: Adenosine 6mg/2ml Inj IVP SCH ×2 (13:03→14:00)
[2020-03-28 13:07] LABS: ANION GAP 20 mmol/L (5-15); BLOOD UREA NITROGEN 96 mg/dL (7-18); CALCIUM 8.1 MG/DL (8.5-10.1); CARBON DIOXIDE 16 MMOL/L (21-32); CHLORIDE 108 MMOL/L (98-107); CREATININE 5.8 MG/DL (0.55-1.30); POTASSIUM 5.3 MMOL/L (3.5-5.1); SODIUM 144 MMOL/L (136-145)
--- NOTE | 2020-03-28 13:10 | NUR ---
NURSE NOTES: Patient is still Afib 130s on the monitor. Adenosine 6mg IVP x1 given as ordered.
[2020-03-28] MEDS ORDERED: dilTIAZem Premix 125mg/125ml 125 ML IVPB SCH (13:56)
[2020-03-28] MEDS: Cefepime HCl 1 GM in D5W 55 ML IVPB SCH (14:18)
[2020-03-28] MEDS: Sodium Polystyrene Sulfonate Enema RECTAL ONE ×2 (14:30→14:51)
[2020-03-28] MEDS ORDERED: Sodium Bicarbonate 50ml Carp IV SCH (14:30)
[2020-03-28] MEDS ORDERED: Vancomycin 1gm/D5W 275ml IVPB ONE ×2 (14:30)
--- NOTE | 2020-03-28 14:33 | NUR ---
NURSE NOTES: Report given to JOSSELYN Ramires.
--- NOTE | 2020-03-28 14:38 | Consultation ---
History of Present Illness General Date patient seen: Mar 28, 2020 Reason for Hospitalization: Altered Level of Consciousness Present Illness HPI Very unfortunate [age]-year-old female multi-medical comorbidities with [facility] resident that presented with leukocytosis lactic acidosis abnormal labs renal insufficiency on vent support now in the intensive care unit identified to have sepsis. Surgery called to evaluate and assist with care. Patient seen , patient evaluate, chart reviewed. Imaging reviewed. Micro noted labs noted Allergies: Coded Allergies: LISINOPRIL (Verified Allergy, Unknown, Hives, 04/12/14) COVID-19 Screening Contact w/high risk pt: Yes Recent Travel to affected area: No Experienced COVID-19 symptoms?: Yes COVID-19 symptoms experienced: Fever (T>100.4F or >38C), Shortness of Breath Medication History Scheduled Amlodipine Besylate* (Amlodipine Besylate*), 10 MG ORAL DAILY, (Reported) Baclofen* (Baclofen*), 10 MG ORAL NEEDED, (Reported) Doxazosin Mesylate* (Doxazosin Mesylate*), 4 MG ORAL DAILY, (Reported) Duloxetine Hcl* (Cymbalta*), 60 MG ORAL BID, (Reported) Gabapentin* (Gabapentin*), 300 MG ORAL BEDTIME, (Reported) Hydralazine HCl (Hydralazine HCl), 50 MG ORAL Q6HR Metoprolol Tartrate* (Metoprolol Tartrate*), 100 MG ORAL EVERY 12 HOURS, ( Reported) Phosphorus (Phospha 250 Neutral Tablet), 250 MG ORAL THREE TIMES A DAY Simvastatin (Zocor), 40 MG ORAL BEDTIME, (Reported) Trazodone* (Trazodone*), 200 MG ORAL BEDTIME, (Reported) Scheduled PRN Hydrocodone/Acetaminophen (Hydrocodon-Acetaminophn 10-325), 1 TAB ORAL Q6H PRN for For Pain, (Reported) Patient History Limited by: medical condition, other History Provided By: Medical Record, PMD Healthcare decision maker Resuscitation status Advanced Directive on File Past Medical/Surgical History Past Medical/Surgical History: (1) Abscess (2) Fistula (3) Sciatica neuralgia (4) Uncontrolled seizures (5) Forgetfulness (6) Chronic back pain (7) Overdose of opiate or related narcotic (8) Cellulitis of left leg (9) Pericolonic abscess due to diverticulitis (10) Chronic pain of both knees (11) Sacral decubitus ulcer (12) Ventral incisional hernia (13) Dehydration (14) Hyperkalemia (15) Sepsis (16) Atrial flutter (17) Hypertension (18) Acute encephalopathy (19) VENTURA (acute kidney injury) (20) Acute and chronic respiratory failure with hypoxia Review of Systems Review of Symptoms -Y-n-s-e-r-a-l- -R-O-S--:- -n-o- -u-z-m-g-h-t- -l-o-s-s- -o-r- -f-e-v-e-r- -K-j-o-u-f-z-y-t-c-i-c-a-l- -R-O-S--:- -n-o- -r-e-q-j-q-s-s-i-o-n- -o-r- -m-o-o-d- -s-m-b-n-g-e-s--,- -n-o- -g-i-t-o-r-y- -l-o-s-s- -K-r-c-p-c-c-l-m-i-c- -R-O-S--:- -n-o- -u-t-h-u-a-l- -a-f-w-n-g-e-s- -o-r- -e-y-e- -o-t-o-x-g-k-t-i-o-n- -E-N-T- -R-O-S--:- -n-o- -n-a-s-a-l- -h-n-i-b-l-r-t-i-o-n--,- -x-l-c-r-i-n-g- -l-o-s-s--,- -o-m-x-x-b-i-e-s-s- -D-n-h-e-r-g-y- -a-n-d- -N-b-o-i-w-s-l-o-g-y- -R-O-S--:- -n-o- -a-y-s-e-r-g-i-c- -d-h-v-p-t-o-m-s- -o-r- -n-d-u-l-z-e-r-i-a- -Y-d-l-u-a-c-q-d-d-i-c-a-l- -a-n-d- -T-g-n-q-v-v-t-i-c- -R-O-S--:- -n-o- -r-i-w-l-l-e-n- -g-q-y-n-d-s--,- -a-j-i-s-u-a-l- -b-x-q-e-d-i-n-g- -o-r- -s-z-q-i-s-i-n-g- -K-a-g-f-l-i-i-n-e- -R-O-S--:- -n-o- -j-z-c-y-u-r-i-a--,- -b-z-g-h-e-v-p-s-i-a- -,- -v-q-c-g-h-t- -i-q-q-n-g-e-s--,- -y-f-x-x-j-h-a-t-u-r-e- -z-c-s-x-w-a-r-a-n-c-e- -U-b-q-g-q-o-a-t-o-r-y- -R-O-S--:- -n-o- -c-o-u-g-h--,- -f-c-o-l-s-e-e-s-s- -o-f- -v-n-q-a-t-h--,- -o-r- -m-d-d-e-z-i-n-g- -X-t-p-z-o-p-n-k-n-c-u-l-a-r- -R-O-S--:- -n-o- -c-h-e-s-t- -p-a-i-n- -o-r- -l-z-k-p-n-e-a- -o-n- -h-c-m-r-t-i-o-n- -O-p-y-t-d-w-y-v-f-k-c-f-i-n-a-l- -R-O-S--:- -i-r-o-i-e-s- -r-d-m-s-t-w-n-a-l- -p-a-i-n--,- -h-r-k-g-h-t- -r-e-d- -b-l-o-o-d- -i-n- -s-t-o-o-l-.- -Z-e-j-m-b-l-o-m-b-e-e-j-t-a-l- -R-O-S--:- -n-o- -u-g-h-l-g-i-a-s- -o-r- -y-i-e-f-r-e-l-g-i-a-s- -Y-o-u-a-g-r-n-r-b-c-a-l- -R-O-S--:- -n-o- -T-I-A- -o-r- -q-a-p-o-k-e- -l-t-f-p-t-o-m-s- -T-n-x-z-i-u-a-f-o-g-i-c-a-l- -R-O-S--:- -n-o- -n-e-w- -o-r- -u-w-q-n-g-i-n-g- -s-k-i-n- -t-k-n-i-o-n-s--,- -q-s-d-h-e-s- -o-r- -y-x-w-r-i-t-i-s- Physical Exam Physical Exam General appearance: distress, appears stated age Head: Normocephalic, without obvious abnormality, atraumatic Eyes: conjunctivae/corneas clear. PERRL, EOM's intact. Fundi benign Throat: Lips, mucosa, and tongue normal. Teeth and gums normal Neck: supple, symmetrical, trachea midline, no adenopathy, thyroid: not enlarged, symmetric, no tenderness/mass/nodules, no carotid bruit and no JVD Lungs: decresaed to auscultation bilaterally no support Heart: regular rate and rhythm, S1, S2 normal, no murmur, click, rub or gallop Abdomen: soft, non-tender. Bowel sounds normal. No masses, no organomegaly Extremities: extremities normal, atraumatic, no cyanosis or edema Pulses: 2+ and symmetric Skin: Skin cseen below Neurologic: Grossly normal Last 24 Hour Vital Signs Date Time Temp Pulse Resp B/P (MAP) Pulse Ox O2 Delivery O2 Flow Rate FiO2 03/28/20 14:03 136 03/28/20 13:10 136 03/28/20 11:15 145 21 124/65 (84) 03/28/20 11:00 145 19 106/50 (68) 03/28/20 10:50 144 22 40 03/28/20 10:30 142 20 93/62 (72) 03/28/20 10:00 141 21 95/58 (70) 03/28/20 09:30 144 23 97/58 (71) 03/28/20 09:15 144 23 103/57 (72) 03/28/20 09:00 145 21 93/65 (74) 03/28/20 09:00 40 03/28/20 08:45 148 22 101/65 (77) 03/28/20 08:30 144 20 86/61 (69) 03/28/20 08:15 145 23 80/53 (62) 03/28/20 08:00 98.7 145 21 84/60 (68) 03/28/20 08:00 Mechanical Ventilator 03/28/20 07:01 148 22 40 03/28/20 07:00 148 22 85/64 (71) 100 03/28/20 06:45 148 22 85/63 (70) 100 03/28/20 06:32 155 20 03/28/20 06:30 150 21 87/65 (72) 100 03/28/20 06:00 153 19 89/56 (67) 100 03/28/20 05:57 153 19 83/58 (66) 100 03/28/20 05:45 154 18 77/54 (62) 100 03/28/20 05:30 154 19 77/53 (61) 100 03/28/20 05:00 154 19 88/59 (69) 03/28/20 04:30 171 20 105/62 (76) 100 03/28/20 04:00 Mechanical Ventilator 03/28/20 04:00 160 03/28/20 04:00 100.6 169 21 77/50 (59) 03/28/20 04:00 40 03/28/20 03:30 161 22 82/59 (67) 03/28/20 03:08 159 21 40 03/28/20 03:00 160 21 88/61 (70) 03/28/20 02:50 160 23 85/54 (64) 03/28/20 02:30 159 21 84/60 (68) 03/28/20 02:00 166 22 83/60 (68) 100 03/28/20 01:40 163 23 89/72 (78) 100 03/28/20 01:30 160 21 82/62 (69) 100 03/28/20 01:26 168 22 53/34 (40) 100 03/28/20 01:00 155 03/28/20 01:00 Mechanical Ventilator 03/28/20 00:54 98.7 105 20 107/56 100 Mechanical Ventilator 2.0 40 03/28/20 00:00 40 03/28/20 00:00 Mechanical Ventilator 03/27/20 23:47 156 20 40 03/27/20 21:00 155 83/49 03/27/20 20:14 98.7 105 18 107/56 100 Mechanical Ventilator 2.0 100 03/27/20 19:19 103 19 100 03/27/20 19:15 98.7 102 18 102/62 100 Mechanical Ventilator 2.0 40 03/27/20 18:08 89 15 97/47 100 Mechanical Ventilator 40 03/27/20 17:03 98.7 98 15 90/48 100 Mechanical Ventilator 40 03/27/20 16:03 92 16 90/61 100 Mechanical Ventilator 40 03/27/20 15:55 99 18 100 03/27/20 15:02 98.7 74 16 112/73 100 Mechanical Ventilator 40 Intake and Output 03/27/20 03/28/20 19:00 07:00 Intake Total 200 ml 1198.790 ml Output Total 235 ml Balance 200 ml 963.790 ml Intake IV Total 200 ml 1198.790 ml Output Urine Total 235 ml Laboratory Tests Test 03/27/20 20:05 03/27/20 22:38 03/27/20 23:05 03/27/20 23:45 Arterial Blood pH 7.274 (7.350-7.450) Arterial Blood Partial Pressure CO2 35.7 mmHg (35.0-45.0) Arterial Blood Partial Pressure O2 141.0 mmHg (75.0-100.0) H Arterial Blood HCO3 16.2 mmol/L (22.0-26.0) *L Arterial Blood Oxygen Saturation 98.5 % (95-100) Arterial Blood Base Excess -9.8 (-2-2) *L Kelvin Test Positive Sodium Level 144 MMOL/L (136-145) Potassium Level 5.3 MMOL/L (3.5-5.1) H Chloride Level 110 MMOL/L (98-107) H Carbon Dioxide Level 18 MMOL/L (21-32) L Anion Gap 16 mmol/L (5-15) H Blood Urea Nitrogen 92 mg/dL (7-18) H Creatinine 6.0 MG/DL (0.55-1.30) H Estimat Glomerular Filtration Rate 8.5 mL/min (>60) Glucose Level 107 MG/DL (74-106) H Calcium Level 8.3 MG/DL (8.5-10.1) L Total Creatine Kinase 5981 U/L (26-308) H Lactic Acid Level 2.30 mmol/L (0.4-2.0) H 2.60 mmol/L (0.66-2.22) H Test 03/28/20 04:05 03/28/20 10:14 03/28/20 12:10 White Blood Count 7.9 K/UL (4.8-10.8) Red Blood Count 4.29 M/UL (4.20-5.40) Hemoglobin 11.0 G/DL (12.0-16.0) L Hematocrit 34.1 % (37.0-47.0) L Mean Corpuscular Volume 80 FL (80-99) Mean Corpuscular Hemoglobin 25.6 PG (27.0-31.0) L Mean Corpuscular Hemoglobin Concent 32.1 G/DL (32.0-36.0) Red Cell Distribution Width 18.9 % (11.6-14.8) H Platelet Count 197 K/UL (150-450) Mean Platelet Volume 7.3 FL (6.5-10.1) Neutrophils (%) (Auto) 79.9 % (45.0-75.0) H Lymphocytes (%) (Auto) 7.0 % (20.0-45.0) L Monocytes (%) (Auto) 12.7 % (1.0-10.0) H Eosinophils (%) (Auto) 0.0 % (0.0-3.0) Basophils (%) (Auto) 0.4 % (0.0-2.0) Sodium Level 144 MMOL/L (136-145) 144 MMOL/L (136-145) Potassium Level 4.9 MMOL/L (3.5-5.1) 5.3 MMOL/L (3.5-5.1) H Chloride Level 110 MMOL/L (98-107) H 108 MMOL/L (98-107) H Carbon Dioxide Level 17 MMOL/L (21-32) L 16 MMOL/L (21-32) L Anion Gap 17 mmol/L (5-15) H 20 mmol/L (5-15) H Blood Urea Nitrogen 95 mg/dL (7-18) H 96 mg/dL (7-18) H Creatinine 5.9 MG/DL (0.55-1.30) H 5.8 MG/DL (0.55-1.30) H Estimat Glomerular Filtration Rate 8.6 mL/min (>60) 8.8 mL/min (>60) Glucose Level 112 MG/DL (74-106) H 107 MG/DL (74-106) H Calcium Level 8.1 MG/DL (8.5-10.1) L 8.1 MG/DL (8.5-10.1) L Total Bilirubin 0.6 MG/DL (0.2-1.0) Aspartate Amino Transf (AST/SGOT) 144 U/L (15-37) H Alanine Aminotransferase (ALT/SGPT) 31 U/L (12-78) Alkaline Phosphatase 159 U/L (46-116) H Total Creatine Kinase 5241 U/L (26-308) H Total Protein 5.5 G/DL (6.4-8.2) #L Albumin 1.6 G/DL (3.4-5.0) L Globulin 3.9 g/dL Albumin/Globulin Ratio 0.4 (1.0-2.7) L Arterial Blood pH 7.275 (7.350-7.450) Arterial Blood Partial Pressure CO2 33.0 mmHg (35.0-45.0) L Arterial Blood Partial Pressure O2 141.0 mmHg (75.0-100.0) H Arterial Blood HCO3 15.0 mmol/L (22.0-26.0) *L Arterial Blood Oxygen Saturation 98.1 % (95-100) Arterial Blood Base Excess -10.8 (-2-2) *L Kelvin Test Positive Random Vancomycin Level 14.4 ug/mL Microbiology Date/Time Source Procedure Growth Status 03/27/20 16:30 Nasopharynx SARS-CoV-2 RdRp Gene Assay - Final Complete Height (Feet): 5 Height (Inches): 6.00 Weight (Pounds): 248 Medications Current Medications Medications (Trade) Dose Ordered Sig/Debbie Route PRN Reason Start Time Stop Time Status Last Admin Dose Admin Acetaminophen (Tylenol) 650 mg Q4H PRN ORAL Mild Pain (Pain Scale 1-3) 03/26/20 21:15 04/25/20 21:14 Acetaminophen (Tylenol) 650 mg Q4H PRN ORAL Temp >100.5 03/26/20 21:15 04/25/20 21:14 Adenosine (Adenocard) 6 mg ONCE IVP 03/28/20 13:03 03/28/20 15:30 03/28/20 13:10 Adenosine (Adenocard) 6 mg ONCE IVP 03/28/20 14:00 03/28/20 16:00 03/28/20 14:03 Al Hydroxide/Mg Hydroxide (Mylanta II) 30 ml Q6H PRN ORAL dyspepsia 03/26/20 21:15 04/25/20 21:14 Bisacodyl (Dulcolax) 10 mg HSPRN PRN RECTAL Constipation 03/26/20 21:15 06/24/20 21:14 Cefepime HCl 1 gm/ Dextrose 55 ml @ 110 mls/hr Q24H IVPB 03/28/20 15:00 04/04/20 14:59 03/28/20 14:18 Chlorhexidine Gluconate (Laurie-Hex 2%) 1 applic DAILY@2000 TOPIC 03/28/20 20:00 06/26/20 19:59 Dextrose (Dextrose 50%) 25 ml Q30M PRN IV Hypoglycemia 03/26/20 21:15 06/24/20 21:14 Dextrose (Dextrose 50%) 50 ml Q30M PRN IV Hypoglycemia 03/26/20 21:15 06/24/20 21:14 Diltiazem HCl 125 ml @ 0 mls/hr Q24H IVPB 03/28/20 13:56 03/29/20 13:56 Diphenhydramine HCl (Benadryl) 25 mg Q6H PRN ORAL Itching/Pruritis 03/26/20 21:15 04/25/20 21:14 Docusate Sodium (Colace) 100 mg EVERY 12 HOURS ORAL 03/27/20 09:00 04/26/20 08:59 03/27/20 09:22 Esmolol HCl 250 ml @ 0 mls/hr Q24H IV 03/28/20 11:30 04/27/20 11:29 03/28/20 11:19 Gabapentin (Neurontin) 300 mg BEDTIME ORAL 03/27/20 21:00 04/26/20 20:59 03/27/20 21:00 Heparin Sodium (Porcine) (Heparin 5000 units/ml) 5,000 units EVERY 12 HOURS SUBQ 03/27/20 09:00 05/11/20 08:59 03/28/20 08:35 Lorazepam (Ativan 2mg/ml 1ml) 0.5 mg Q4H PRN IV For Anxiety 03/26/20 21:15 04/02/20 21:14 Magnesium Hydroxide (Mom) 30 ml HSPRN PRN ORAL Constipation 03/26/20 21:15 04/25/20 21:14 Metoclopramide HCl (Reglan) 10 mg Q6H PRN IVP Nausea & Vomiting 03/26/20 21:15 04/25/20 21:14 Metoprolol Tartrate (Lopressor) 100 mg EVERY 12 HOURS ORAL 03/27/20 09:00 06/25/20 08:59 03/27/20 09:22 Metronidazole 100 ml @ 100 mls/hr Q8HR IVPB 03/27/20 22:00 04/03/20 21:59 03/28/20 13:09 Morphine Sulfate (Morphine Sulfate) 2 mg Q4H PRN IVP Moderate Pain (Pain Scale 4-6) 03/26/20 21:15 04/02/20 21:14 Morphine Sulfate (Morphine Sulfate) 4 mg Q4H PRN IVP Severe Pain (Pain Scale 7-10) 03/26/20 21:15 04/02/20 21:14 Ondansetron HCl (Zofran) 4 mg Q6H PRN IVP Nausea & Vomiting 03/26/20 21:15 04/25/20 21:14 Polyethylene Glycol (Miralax) 17 gm HSPRN PRN ORAL Constipation 03/26/20 21:15 04/25/20 21:14 Sodium Bicarbonate 50 ml/ Sodium Chloride 1,050 ml @ 75 mls/hr Q14H IV 03/27/20 23:00 04/26/20 22:59 03/28/20 13:45 Sodium Bicarbonate (Sodium Bicarbonate) 100 ml ONCE IV 03/28/20 14:30 03/28/20 15:30 03/28/20 14:19 Temazepam (Restoril) 15 mg HSPRN PRN ORAL Insomnia 03/26/20 21:15 04/02/20 21:14 Vancomycin HCl (Vanco pharmacy to dose) 1 ea DAILY PRN MISC Per rx protocol 03/27/20 20:15 04/26/20 20:14 Vancomycin HCl 1 gm/Dextrose 275 ml @ 183.708 mls/hr ONCE ONCE IVPB 03/28/20 14:30 03/28/20 15:59 03/28/20 14:19 Assessment/Plan Problem List: (1) Sepsis Assessment & Plan: Patient admitted identified to have sepsis leukocytosis tachycardia abnormal labs lactic acidosis. Chest x-ray reviewed. Imaging noted. Micro noted. Intensive care unit on support appreciate ICU care Nutritional optimization IV fluids IV antibiotics as per infectious disease tube feeds once stable will follow with recommendations thank you for letting participate patient's care DAILY ESTIMATED NEEDS: Needs based on Critical care, sepsis 75.8kg adj 20-28 kcals/kg 6589-4919 total kcals 1.25-1.5 g protein/kg 95-152 g total protein 25-30 mL/kg 7473-4861 total fluid mLs NUTRITION DIAGNOSIS: Swallowing difficulty r/t respiratory status as evidenced by pt orally intubated, ICU status. CURRENT TF:NPO ENTERAL NUTRITION RECOMMENDATIONS: VITAL AF 1.2 @55ml/hr x24 hrs to provide 1320ml, 1584 kcal, 99g pro, 1071ml free H2O - As medically able, rec non oral feeds. Start VITAL 1.2 @low rate 15ml/hr x6 hrs, advance as tolerated 10ml/hr q4-6 hrs to goal. - Flush per MD/ HOB over 30 degrees -> IF POTASSIUM REMAINS ELEVATED-> Rec NEPRO w/ goal rate of 40ml/hr for 24 hrs to provide 960ml, 1728 kcal, 78g pro, 698ml free H2O. -> Feed w/ hemodynamic stability. ADDITIONAL RECOMMENDATIONS: 1) Maintain calibrated bed scale wts (248lbs vs 217lbs last adm) 2) F/up w/ WC eval. NPO at this time 3) Monitor lytes, need for renal formula 4) Feed when hemodynamically stable -> trophic feeds w/ low BP to maintain gut integrity ICD Codes: A41.9 - Sepsis, unspecified organism SNOMED: 10391372 (2) Sacral decubitus ulcer Assessment & Plan: Patient identified to have a sacral deep tissue injury upon admission Currently intensive care unit on support Care plan initiated ICD Codes: L89.159 - Pressure ulcer of sacral region, unspecified stage SNOMED: 993657980 (3) Ventral incisional hernia Assessment & Plan: History of colon resection colostomy Ventral incisional hernia reducible No acute invention monitor ICD Codes: K43.2 - Incisional hernia without obstruction or gangrene SNOMED: 874162353 Julian Iglesias Mar 28, 2020 14:38
--- NOTE | 2020-03-28 14:44 | NUR ---
*-*DISCHARGE PLANNING*-* PATIENT PREVIOUSLY SERVICE WITH: [facility] P: [phone] F: [phone] UPON [place] PLEASE NOTIFY
--- NOTE | 2020-03-28 14:54 | NUR ---
CASE MANAGEMENT:REVIEW 03/26/20 ~ @ 5[age] YR OLD FEMALE BIBA FROM HOME CC: ALOC. SOB SI: SEPSIS. DEHYDRATION. HYPERKALEMIA 100.3 160 20 90/48 98% ON RA WBC+10.9 K+5.8 BUN+83 CR+6.6 TCK+81319 PH-7.190 HCO3-13.6 IS: INTUBATED 1L NS BOLUS IV ROCEPHIN BLOOD CX CHEST XRAY : TO ICU ON 03/28/20 @ 0054 INTERQUAL CRITERIA MET
--- NOTE | 2020-03-28 15:20 | Cardiology Progress Note ---
Assessment/Plan Status: stable Assessment/Plan Assessment/Plan Problem List: (1) Atrial flutter ICD Codes: I48.92 - Unspecified atrial flutter SNOMED: 1340432 (2) Hypertension ICD Codes: I10 - Essential (primary) hypertension SNOMED: 86352500 (3) Hyperkalemia ICD Codes: E87.5 - Hyperkalemia SNOMED: 93823348 (4) Acute encephalopathy ICD Codes: G93.40 - Encephalopathy, unspecified SNOMED: 8223675 (5) Acute and chronic respiratory failure with hypoxia ICD Codes: J96.21 - Acute and chronic respiratory failure with hypoxia SNOMED: 23570858, 388148141 (6) VENTURA (acute kidney injury) ICD Codes: N17.9 - Acute kidney failure, unspecified SNOMED: 8707071, 09339256 Status: deteriorating AFIB -Rate control -No indication for cardioversion at this time -Metoprolol 100 mg BID -Cardizem gtt -Can not use amiodarone given elevated LFTs -Can not use digoxin given elevated creatinine -Heparin gtt -Echocardiogram with normal LV function Elevated BNP -CXR clear -Echocardiogram normal LV function -No signs of LV fluid overload, wll monitor right sided filling pressures -Hold diuresis for now given VENTURA/CKD/Rhabdo -IV fluids for sepsis and hypotension Continue iV fluids Continue levophed Continue broad specturm Abx Monitor neuro exam, daily SBT Critical care 40 minutes Subjective Cardiovascular: Reports: no symptoms Respiratory: Reports: no symptoms Gastrointestinal/Abdominal: Reports: no symptoms Genitourinary: Reports: no symptoms Subjective Patient remains intubated sedated in ICU, remains tachycardic AFIB/Flutter and adenosine not working, has been on esmolol gtt but rates still not controlled. Objective Last 24 Hour Vital Signs Date Time Temp Pulse Resp B/P (MAP) Pulse Ox O2 Delivery O2 Flow Rate FiO2 03/28/20 14:03 136 03/28/20 13:10 136 03/28/20 11:15 145 21 124/65 (84) 03/28/20 11:00 145 19 106/50 (68) 03/28/20 10:50 144 22 40 03/28/20 10:30 142 20 93/62 (72) 03/28/20 10:00 141 21 95/58 (70) 03/28/20 09:30 144 23 97/58 (71) 03/28/20 09:15 144 23 103/57 (72) 03/28/20 09:00 145 21 93/65 (74) 03/28/20 09:00 40 03/28/20 08:45 148 22 101/65 (77) 03/28/20 08:30 144 20 86/61 (69) 03/28/20 08:15 145 23 80/53 (62) 03/28/20 08:00 98.7 145 21 84/60 (68) 03/28/20 08:00 Mechanical Ventilator 03/28/20 07:01 148 22 40 03/28/20 07:00 148 22 85/64 (71) 100 03/28/20 06:45 148 22 85/63 (70) 100 03/28/20 06:32 155 20 03/28/20 06:30 150 21 87/65 (72) 100 03/28/20 06:00 153 19 89/56 (67) 100 03/28/20 05:57 153 19 83/58 (66) 100 03/28/20 05:45 154 18 77/54 (62) 100 03/28/20 05:30 154 19 77/53 (61) 100 03/28/20 05:00 154 19 88/59 (69) 03/28/20 04:30 171 20 105/62 (76) 100 03/28/20 04:00 Mechanical Ventilator 03/28/20 04:00 160 03/28/20 04:00 100.6 169 21 77/50 (59) 03/28/20 04:00 40 03/28/20 03:30 161 22 82/59 (67) 03/28/20 03:08 159 21 40 03/28/20 03:00 160 21 88/61 (70) 03/28/20 02:50 160 23 85/54 (64) 03/28/20 02:30 159 21 84/60 (68) 03/28/20 02:00 166 22 83/60 (68) 100 03/28/20 01:40 163 23 89/72 (78) 100 03/28/20 01:30 160 21 82/62 (69) 100 03/28/20 01:26 168 22 53/34 (40) 100 03/28/20 01:00 155 03/28/20 01:00 Mechanical Ventilator 03/28/20 00:54 98.7 105 20 107/56 100 Mechanical Ventilator 2.0 40 03/28/20 00:00 40 03/28/20 00:00 Mechanical Ventilator 03/27/20 23:47 156 20 40 03/27/20 21:00 155 83/49 03/27/20 20:14 98.7 105 18 107/56 100 Mechanical Ventilator 2.0 100 03/27/20 19:19 103 19 100 03/27/20 19:15 98.7 102 18 102/62 100 Mechanical Ventilator 2.0 40 03/27/20 18:08 89 15 97/47 100 Mechanical Ventilator 40 03/27/20 17:03 98.7 98 15 90/48 100 Mechanical Ventilator 40 03/27/20 16:03 92 16 90/61 100 Mechanical Ventilator 40 03/27/20 15:55 99 18 100 General Appearance: no apparent distress, on vent EENT: PERRL/EOMI, normal ENT inspection, TMs normal, pharynx normal Neck: non-tender, normal alignment, supple, normal inspection, no JVD Rhythm: Afib Cardiovascular: tachycardia, irregularly irregular Respiratory/Chest: chest wall non-tender, lungs clear, no respiratory distress Abdomen: normal bowel sounds, non tender, soft, no organomegaly Extremities: normal range of motion, non-tender, normal inspection, no calf tenderness, no swelling 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 Intake and Output 03/27/20 03/28/20 19:00 07:00 Intake Total 200 ml 1198.790 ml Output Total 235 ml Balance 200 ml 963.790 ml Intake IV Total 200 ml 1198.790 ml Output Urine Total 235 ml Laboratory Tests Test 03/27/20 20:05 03/27/20 22:38 03/27/20 23:05 03/27/20 23:45 Arterial Blood pH 7.274 (7.350-7.450) Arterial Blood Partial Pressure CO2 35.7 mmHg (35.0-45.0) Arterial Blood Partial Pressure O2 141.0 mmHg (75.0-100.0) H Arterial Blood HCO3 16.2 mmol/L (22.0-26.0) *L Arterial Blood Oxygen Saturation 98.5 % (95-100) Arterial Blood Base Excess -9.8 (-2-2) *L Kelvin Test Positive Sodium Level 144 MMOL/L (136-145) Potassium Level 5.3 MMOL/L (3.5-5.1) H Chloride Level 110 MMOL/L (98-107) H Carbon Dioxide Level 18 MMOL/L (21-32) L Anion Gap 16 mmol/L (5-15) H Blood Urea Nitrogen 92 mg/dL (7-18) H Creatinine 6.0 MG/DL (0.55-1.30) H Estimat Glomerular Filtration Rate 8.5 mL/min (>60) Glucose Level 107 MG/DL (74-106) H Calcium Level 8.3 MG/DL (8.5-10.1) L Total Creatine Kinase 5981 U/L (26-308) H Lactic Acid Level 2.30 mmol/L (0.4-2.0) H 2.60 mmol/L (0.66-2.22) H Test 03/28/20 04:05 03/28/20 10:14 03/28/20 12:10 White Blood Count 7.9 K/UL (4.8-10.8) Red Blood Count 4.29 M/UL (4.20-5.40) Hemoglobin 11.0 G/DL (12.0-16.0) L Hematocrit 34.1 % (37.0-47.0) L Mean Corpuscular Volume 80 FL (80-99) Mean Corpuscular Hemoglobin 25.6 PG (27.0-31.0) L Mean Corpuscular Hemoglobin Concent 32.1 G/DL (32.0-36.0) Red Cell Distribution Width 18.9 % (11.6-14.8) H Platelet Count 197 K/UL (150-450) Mean Platelet Volume 7.3 FL (6.5-10.1) Neutrophils (%) (Auto) 79.9 % (45.0-75.0) H Lymphocytes (%) (Auto) 7.0 % (20.0-45.0) L Monocytes (%) (Auto) 12.7 % (1.0-10.0) H Eosinophils (%) (Auto) 0.0 % (0.0-3.0) Basophils (%) (Auto) 0.4 % (0.0-2.0) Sodium Level 144 MMOL/L (136-145) 144 MMOL/L (136-145) Potassium Level 4.9 MMOL/L (3.5-5.1) 5.3 MMOL/L (3.5-5.1) H Chloride Level 110 MMOL/L (98-107) H 108 MMOL/L (98-107) H Carbon Dioxide Level 17 MMOL/L (21-32) L 16 MMOL/L (21-32) L Anion Gap 17 mmol/L (5-15) H 20 mmol/L (5-15) H Blood Urea Nitrogen 95 mg/dL (7-18) H 96 mg/dL (7-18) H Creatinine 5.9 MG/DL (0.55-1.30) H 5.8 MG/DL (0.55-1.30) H Estimat Glomerular Filtration Rate 8.6 mL/min (>60) 8.8 mL/min (>60) Glucose Level 112 MG/DL (74-106) H 107 MG/DL (74-106) H Calcium Level 8.1 MG/DL (8.5-10.1) L 8.1 MG/DL (8.5-10.1) L Total Bilirubin 0.6 MG/DL (0.2-1.0) Aspartate Amino Transf (AST/SGOT) 144 U/L (15-37) H Alanine Aminotransferase (ALT/SGPT) 31 U/L (12-78) Alkaline Phosphatase 159 U/L (46-116) H Total Creatine Kinase 5241 U/L (26-308) H Total Protein 5.5 G/DL (6.4-8.2) #L Albumin 1.6 G/DL (3.4-5.0) L Globulin 3.9 g/dL Albumin/Globulin Ratio 0.4 (1.0-2.7) L Arterial Blood pH 7.275 (7.350-7.450) Arterial Blood Partial Pressure CO2 33.0 mmHg (35.0-45.0) L Arterial Blood Partial Pressure O2 141.0 mmHg (75.0-100.0) H Arterial Blood HCO3 15.0 mmol/L (22.0-26.0) *L Arterial Blood Oxygen Saturation 98.1 % (95-100) Arterial Blood Base Excess -10.8 (-2-2) *L Kelvin Test Positive Random Vancomycin Level 14.4 ug/mL Microbiology Date/Time Source Procedure Growth Status 03/26/20 19:15 Blood Blood Culture - Preliminary NO GROWTH AFTER 24 HOURS Resulted 03/26/20 19:05 Blood Blood Culture - Preliminary NO GROWTH AFTER 24 HOURS Resulted 03/27/20 16:30 Nasopharynx SARS-CoV-2 RdRp Gene Assay - Final Complete 03/26/20 21:15 Nasopharynx Coronavirus COVID-19 PCR ([facility]) - Final Complete Rafat Crooks MD Mar 28, 2020 15:20
--- NOTE | 2020-03-28 15:32 | General Progress Note ---
Assessment/Plan Problem List: (1) Atrial flutter ICD Codes: I48.92 - Unspecified atrial flutter SNOMED: 9464109 (2) Hypertension ICD Codes: I10 - Essential (primary) hypertension SNOMED: 44132728 (3) Hyperkalemia ICD Codes: E87.5 - Hyperkalemia SNOMED: 13477267 (4) Acute encephalopathy ICD Codes: G93.40 - Encephalopathy, unspecified SNOMED: 4643097 (5) Acute and chronic respiratory failure with hypoxia ICD Codes: J96.21 - Acute and chronic respiratory failure with hypoxia SNOMED: 62324846, 186808344 (6) VENTURA (acute kidney injury) ICD Codes: N17.9 - Acute kidney failure, unspecified SNOMED: 1620520, 68135368 Status: stable Assessment/Plan: Ms. Hayward is a 69 year old female with unknown history, presenting with AMS, weaknses, found to have rhabdo, VENTURA, a fib RVR then later was intubated for hypoxia/stridor. #Shock, unspecified -hypotensive -continue levophed for MAP >65 -central line. #Acute hypoxic respiratory failure #Acute toxometabolic encephalopathy -Intubated in the ED (03/27 -) -pulm/ICU consulted. appreciate recs. -continue ventilator therapy -daily weaning, SBT as tolerated once mroe stable. #A fib RVR #Elevated BNP #?CHF -s/p multiple doses of MTP in the ED. -cardiology consulted. appreciate recs. -s/p amiodarone, switched to esmolol gtt given renal function. #rhabdomyolosis -CK >38679 on presentation. -s/p IVF boluses in ED. continue IVF. -check CK daily #VENTURA #Hyperkalemia #Anion gap metabolic acidosis -worsening renal fx. HyperK resolved. -nephrology on board. May need HD. -Na bicarb for acidosis -trend BMP #Sepsis -BCx NGTD -UA ordered in ED but nevev collected. will obtain again. -continue cefepime (03/27 -) Time spent on encounter, 45 minutes, 30 mins spent on critical care, which includes telemetry review, lab data review, interpretation, radiology image review, interpretation, ventilator setting review, management, ABG interpretation, discussion with ICU team, nursing staff, consulting services. Time of note doesn't reflect time of encounter. Subjective Date patient seen: Mar 28, 2020 ROS Limited/Unobtainable: Yes - intubated, nonverbal Allergies: Coded Allergies: LISINOPRIL (Verified Allergy, Unknown, Hives, 04/12/14) Subjective intubated, nonverbal. Objective Last 24 Hour Vital Signs Date Time Temp Pulse Resp B/P (MAP) Pulse Ox O2 Delivery O2 Flow Rate FiO2 03/28/20 14:03 136 03/28/20 13:10 136 03/28/20 11:15 145 21 124/65 (84) 03/28/20 11:00 145 19 106/50 (68) 03/28/20 10:50 144 22 40 03/28/20 10:30 142 20 93/62 (72) 03/28/20 10:00 141 21 95/58 (70) 03/28/20 09:30 144 23 97/58 (71) 03/28/20 09:15 144 23 103/57 (72) 03/28/20 09:00 145 21 93/65 (74) 03/28/20 09:00 40 03/28/20 08:45 148 22 101/65 (77) 03/28/20 08:30 144 20 86/61 (69) 03/28/20 08:15 145 23 80/53 (62) 03/28/20 08:00 98.7 145 21 84/60 (68) 03/28/20 08:00 Mechanical Ventilator 03/28/20 07:01 148 22 40 03/28/20 07:00 148 22 85/64 (71) 100 03/28/20 06:45 148 22 85/63 (70) 100 03/28/20 06:32 155 20 03/28/20 06:30 150 21 87/65 (72) 100 03/28/20 06:00 153 19 89/56 (67) 100 03/28/20 05:57 153 19 83/58 (66) 100 03/28/20 05:45 154 18 77/54 (62) 100 03/28/20 05:30 154 19 77/53 (61) 100 03/28/20 05:00 154 19 88/59 (69) 03/28/20 04:30 171 20 105/62 (76) 100 03/28/20 04:00 Mechanical Ventilator 03/28/20 04:00 160 03/28/20 04:00 100.6 169 21 77/50 (59) 03/28/20 04:00 40 03/28/20 03:30 161 22 82/59 (67) 03/28/20 03:08 159 21 40 03/28/20 03:00 160 21 88/61 (70) 03/28/20 02:50 160 23 85/54 (64) 03/28/20 02:30 159 21 84/60 (68) 03/28/20 02:00 166 22 83/60 (68) 100 03/28/20 01:40 163 23 89/72 (78) 100 03/28/20 01:30 160 21 82/62 (69) 100 03/28/20 01:26 168 22 53/34 (40) 100 03/28/20 01:00 155 03/28/20 01:00 Mechanical Ventilator 03/28/20 00:54 98.7 105 20 107/56 100 Mechanical Ventilator 2.0 40 03/28/20 00:00 40 03/28/20 00:00 Mechanical Ventilator 03/27/20 23:47 156 20 40 03/27/20 21:00 155 83/49 03/27/20 20:14 98.7 105 18 107/56 100 Mechanical Ventilator 2.0 100 03/27/20 19:19 103 19 100 03/27/20 19:15 98.7 102 18 102/62 100 Mechanical Ventilator 2.0 40 03/27/20 18:08 89 15 97/47 100 Mechanical Ventilator 40 03/27/20 17:03 98.7 98 15 90/48 100 Mechanical Ventilator 40 03/27/20 16:03 92 16 90/61 100 Mechanical Ventilator 40 03/27/20 15:55 99 18 100 Intake and Output 03/27/20 03/28/20 19:00 07:00 Intake Total 200 ml 1198.790 ml Output Total 235 ml Balance 200 ml 963.790 ml Intake IV Total 200 ml 1198.790 ml Output Urine Total 235 ml Laboratory Tests 03/27/20 20:05: Arterial Blood pH 7.274L, Arterial Blood Partial Pressure CO2 35.7, Arterial Blood Partial Pressure O2 141.0H, Arterial Blood HCO3 16.2*L, Arterial Blood Oxygen Saturation 98.5, Arterial Blood Base Excess -9.8*L, Kelvin Test Positive 03/27/20 22:38: Sodium Level 144, Potassium Level 5.3H, Chloride Level 110H, Carbon Dioxide Level 18L, Anion Gap 16H, Blood Urea Nitrogen 92H, Creatinine 6.0H, Estimat Glomerular Filtration Rate 8.5, Glucose Level 107H, Calcium Level 8.3L, Total Creatine Kinase 5981H 03/27/20 23:05: Lactic Acid Level 2.30H 03/27/20 23:45: Lactic Acid Level 2.60H 03/28/20 04:05: White Blood Count 7.9, Red Blood Count 4.29, Hemoglobin 11.0L, Hematocrit 34.1L , Mean Corpuscular Volume 80, Mean Corpuscular Hemoglobin 25.6L, Mean Corpuscular Hemoglobin Concent 32.1, Red Cell Distribution Width 18.9H, Platelet Count 197, Mean Platelet Volume 7.3, Neutrophils (%) (Auto) 79.9H, Lymphocytes (%) (Auto) 7.0L, Monocytes (%) (Auto) 12.7H, Eosinophils (%) (Auto) 0.0, Basophils (%) (Auto) 0.4, Sodium Level 144, Potassium Level 4.9, Chloride Level 110H, Carbon Dioxide Level 17L, Anion Gap 17H, Blood Urea Nitrogen 95H, Creatinine 5.9H, Estimat Glomerular Filtration Rate 8.6, Glucose Level 112H, Calcium Level 8.1L, Total Bilirubin 0.6, Aspartate Amino Transf (AST/SGOT) 144H , Alanine Aminotransferase (ALT/SGPT) 31, Alkaline Phosphatase 159H, Total Creatine Kinase 5241H, Total Protein 5.5#L, Albumin 1.6L, Globulin 3.9, Albumin/ Globulin Ratio 0.4L 03/28/20 10:14: Arterial Blood pH 7.275L, Arterial Blood Partial Pressure CO2 33.0L, Arterial Blood Partial Pressure O2 141.0H, Arterial Blood HCO3 15.0*L, Arterial Blood Oxygen Saturation 98.1, Arterial Blood Base Excess -10.8*L, Kelvin Test Positive 03/28/20 12:10: Sodium Level 144, Potassium Level 5.3H, Chloride Level 108H, Carbon Dioxide Level 16L, Anion Gap 20H, Blood Urea Nitrogen 96H, Creatinine 5.8H, Estimat Glomerular Filtration Rate 8.8, Glucose Level 107H, Calcium Level 8.1L, Random Vancomycin Level 14.4 Height (Feet): 5 Height (Inches): 6.00 Weight (Pounds): 248 General Appearance: no apparent distress Neck: supple Cardiovascular: tachycardia, irregularly irregular Respiratory/Chest: no respiratory distress Abdomen: normal bowel sounds, soft Neurologic: other - inbuated, nonverbal Ousmane Torres MD Mar 28, 2020 15:32
--- NOTE | 2020-03-28 15:47 | Brief Operative Note ---
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
--- NOTE | 2020-03-28 15:48 | NUR ---
NURSE NOTES: Informed Dr. Crooks that rhythm is converted to ST 110s. Will titrate down.
--- NOTE | 2020-03-28 16:00 | NUR ---
NURSE NOTES: Titrated down cardizem 15mg/hr to 10mg/hr. ST on the monitor.
--- NOTE | 2020-03-28 16:06 | Diagnostic Imaging Report ---
Indications: Needs long-term IV access Technique: Procedure performed at bedside. Procedural timeout performed. Ultrasound confirms patent compressible left basilic vein. Total sterile technique, including sterile probe cover and sterile gel, sterile gloves, hand hygiene, hat, mask,, sterile gown, large sterile drape, and preparation with 2% chlorhexidine utilized. Local anesthesia with 1% lidocaine. Under real-time ultrasound guidance, puncture left basilic vein using 21-gauge needle, passage 0.018 guidewire, exchange for 4 Dominican peel-away sheath. 4 Dominican Bard dual-lumen power PICC cut to 47 cm. It was inserted through the peel-away sheath. Peel-away sheath and guidewire removed. Catheter fixed to the skin. Both catheter ports aspirated and flushed. Patient tolerated procedure well, without immediate complication. Followup chest x-ray obtained, documents catheter tip position at the cavoatrial junction Impression: Successful bedside placement of left arm PICC under sonographic guidance, as described above.
--- NOTE | 2020-03-28 16:11 | NUR ---
NURSE NOTES: Talked with Dr. Crooks. Will start heparin drip for Afib. Collected blood for PTT and sent to lab.
[2020-03-28] MEDS ORDERED: Heparin 5000 units/ml inj IV SCH (16:21)
[2020-03-28] MEDS: Heparin 25,000u/D5W 500ml 500 ML IV SCH (16:29)
--- NOTE | 2020-03-28 17:09 | NUR ---
NURSE NOTES: Inserted right NGT and Ordered KUB.
--- NOTE | 2020-03-28 17:15 | NUR ---
NURSE NOTES: Seen by Dr. Crooks and assessed patient. No new order at this time. ST 100s on the monitor.
--- NOTE | 2020-03-28 18:00 | NUR ---
NURSE NOTES: Bed bath given. Put P200 mattress. Titrated down cardizem to 5mg/hr. Will continue plan of care.
--- NOTE | 2020-03-28 18:45 | Diagnostic Imaging Report ---
History: TUBE PLCMT Exam: XR ABDOMEN single image Comparison: IMPRESSION: Nasogastric tube tip body of the stomach.
--- NOTE | 2020-03-28 19:02 | NUR ---
NURSE NOTES: NG tube in place. Kayexalate 45g NG once ordered.
[2020-03-28] MEDS ORDERED: Sodium Polystyrene Sulfonate 15gm Powder NG SCH (19:09)
--- NOTE | 2020-03-28 19:20 | NUR ---
HAND-OFF: Report given to JOSSELYN Brown. Endorsed plan of care.
--- NOTE | 2020-03-28 20:00 | NUR ---
NURSE NOTES: DC'd Cardizem gtt per cardio. Afebrile at this time. Stable Afib on the monitor 95-102. Remains on heparin gtt. No bleeding noted. Oral care performed. Lavaged and suctioned. Patient responsive to some command, slightly lethargic. Repositioned patient.
[2020-03-28] MEDS: Dyna-Hex 2% Top Sol 2oz TOPIC SCH (20:01)
[2020-03-28 20:42] LABS: APPEARANCE,URINE CLOUDY; BILIRUBIN, URINE 2+ (NEGATIVE); COLOR,URINE YELLOW; GLUCOSE, URINE (UA) NEGATIVE (NEGATIVE); KETONES,URINE 1+ (NEGATIVE); LEUKOCYTE ESTERASE ,URINE 2+ (NEGATIVE); NITRITE,URINE NEGATIVE (NEGATIVE); PROTEIN,URINE 2+ (NEGATIVE); UROBILINOGEN,URINE 1 MG/DL (0.0-1.0)
[2020-03-28 21:33] LABS: ANION GAP 15 mmol/L (5-15); BLOOD UREA NITROGEN 101 mg/dL (7-18); CALCIUM 7.9 MG/DL (8.5-10.1); CARBON DIOXIDE 21 MMOL/L (21-32); CHLORIDE 109 MMOL/L (98-107); CREATININE 5.4 MG/DL (0.55-1.30); POTASSIUM 4.5 MMOL/L (3.5-5.1); SODIUM 145 MMOL/L (136-145)
--- NOTE | 2020-03-28 22:00 | NUR ---
NURSE NOTES: Patient was repositioned. Suctioned patient. Afib on the monitor with stable BP parameters. PM meds were given. NAD at this time. 30% FiO2-100% SpO2. NAD at this time, will continue to monitor.
--- NOTE | 2020-03-28 23:00 | NUR ---
NURSE NOTES: PTT is 80, protocol resume Heparin gtt at same rate and next timed PTT to be done in the morning.
[2020-03-29] VITALS (44 sets, daily range): BP systolic 97–126; BP diastolic 47–91
--- NOTE | 2020-03-29 | NUR ---
NURSE NOTES: Oral care performed. Repositioned. Afebrile. Afib on the monitor. Pulses present. Stable BP. Will continue to monitor.
--- NOTE | 2020-03-29 02:00 | NUR ---
NURSE NOTES: Repositioned patient, Afib on the monitor, pulses present. Suctioned. PICC dressing changed.
--- NOTE | 2020-03-29 04:00 | NUR ---
NURSE NOTES: Sponge bath given, oral care performed, PTT and other labs drawn. NAD at this time.
[2020-03-29 05:06] LABS: HEMATOCRIT 27.5 % (37.0-47.0); HEMOGLOBIN 9.1 G/DL (12.0-16.0); MEAN CORPUSCULAR VOLUME 79 FL (80-99); PLATELET COUNT 146 K/UL (150-450); RED BLOOD COUNT 3.49 M/UL (4.20-5.40); RED CELL DISTRIBUTION WIDTH 18.5 % (11.6-14.8); WHITE BLOOD COUNT 10.5 K/UL (4.8-10.8)
[2020-03-29 05:31] LABS: ANION GAP 14 mmol/L (5-15); BLOOD UREA NITROGEN 101 mg/dL (7-18); CALCIUM 7.9 MG/DL (8.5-10.1); CARBON DIOXIDE 22 MMOL/L (21-32); CHLORIDE 109 MMOL/L (98-107); CREATININE 5.3 MG/DL (0.55-1.30); POTASSIUM 4.1 MMOL/L (3.5-5.1); SODIUM 145 MMOL/L (136-145)
[2020-03-29 05:40] LABS: ALANINE AMINOTRANSFERASE 28 U/L (12-78); ALBUMIN 1.8 G/DL (3.4-5.0); ALBUMIN/GLOBULIN RATIO 0.5 (1.0-2.7); ALKALINE PHOSPHATASE 136 U/L (46-116); ASPARTATE AMINO TRANSFERASE 75 U/L (15-37); BILIRUBIN,TOTAL 0.5 MG/DL (0.2-1.0); CREATINE KINASE 1891 U/L (26-308)
[2020-03-29] MEDS: Heparin 25,000u/D5W 500ml 500 ML IV SCH ×2 (06:00→18:49)
--- NOTE | 2020-03-29 06:00 | NUR ---
NURSE NOTES: Repositioned patient, Afib on the monitor, pulses present. Suctioned. Kept clean and dry.
[2020-03-29 06:43] LABS: PHOSPHORUS 7.5 MG/DL (2.5-4.9)
--- NOTE | 2020-03-29 07:00 | NUR ---
NURSE NOTES: Dr. Montes called for updates, new orders for 800mg of Relenva 3 times a day
--- NOTE | 2020-03-29 07:10 | NUR ---
NURSE NOTES: Report received from JOSSELYN Brown. Patient asleep when received, easily arousal to tactile stimuli.Alert and oriented x 2-3 with no apparent distress.Afib on the monitor with HR at 95.Able to follow simple command.Orally intubated AC 18 VT 500 FIO2 30%, Peep [address] with no output.Sacral DTI , on P200 mattress for skin management.Turned and repositioned.ANY picc running heparin drip at 18 units/hr.Will continue same care plan. Patient able to self repositioned, call light within easy reach.
--- NOTE | 2020-03-29 07:18 | NUR ---
HAND-OFF: Report given to Alexandria ARCOS.
--- NOTE | 2020-03-29 07:26 | NUR ---
NURSE NOTES: Report received from JOSSELYN Brown. Patient asleep when received, easily arousal to tactile stimuli.Alert and oriented x 2-3 with no apparent distress.ST on the monitor at this time 102.Able to follow simple command.On non rebreathing mask and saturate at 94%.RAC running NS at 125cc/hr.Will continue same care plan. Patient able to self repositioned, call light within easy reach. Addendum: 03/29/20 at 0730 by Alexandria Block RN wrong charting
[2020-03-29] MEDS: Renvela 800mg Pkt NG SCH ×3 (09:19→18:19)
[2020-03-29] MEDS: Metoprolol Tartrate 100mg tab ORAL SCH ×2 (09:19→19:50)
[2020-03-29] MEDS: Docusate 100mg cap ORAL SCH ×2 (09:19→19:50)
--- NOTE | 2020-03-29 09:51 | NUR ---
NURSE NOTES:WOUND CARE NOTES:Pt presented on admission with Large DTPI encompassing Sacral, R and L gluteal cheeks and extending into both ischial tuberosities and further into Upper aspects of both R and L thighs. Borders are irregular. Base of wound is mixed purple intertwined with maroon discoloration. Scattered areas within base of wound that are indurated.Borders that are closest in proximity to R and L hips are maroon in colour. Both heels are boggy with non-Blanchable erythema. Tx Plan:Apply Moisture Barrier paste to entire Buttocks,Both Ischial tuberosities and posterior aspects of both thighs. Cover with Optifoam drsgs. Change every 7 days and prn. Apply Cavilon Skin Barrier to both heels. Cover each heel with Optifoam drsg. Change every 7 days and prn. Reposition at least every 2hours or as tolerated. Off-load heels with Pillow. APM/MAREN Mattress Overlay
--- NOTE | 2020-03-29 10:24 | NUR ---
NURSE Pt turned and repositioned, mouth care done, suctioned as tolerated.Call light within easy reach, no significant change at this time.Converted to SR, will continue to monitor.Spoke with Armand and update given.HOB elevated to prevent aspiration,will continue close monitoring
--- NOTE | 2020-03-29 10:30 | Nephrology Progress Note ---
Assessment/Plan Plan #VENTURA due to ATN in the setting of rhabdo- on CKD #hyperkalemia #Rhabdo #UTI sepsis #Lactic acidsis #AMS - toxic metabolic encephalopathy #Hypoxemic resp failure #afib with RVR #HLD #Obesity - no acute indication for HD - monitor UOP - DC IVF- -Hr better controlled -phos high -will add sevelamer - metop per Cardiology - monitor K,bmp - will discuss need for HD if no improvement with hydration - weiss placed - strict I&Os - vent management per Dr. Cordova - cardiology eval - 2d echo - ID consult - vanco and cefepime - follow cx - monitor BMP, mag and phos daily 30 minutes of critical care time- greater than 50% on care coordination and counseling Subjective ROS Limited/Unobtainable: No Subjective Cr slowly downtrending remains intubated Hr better controlled phos high will add sevelamer Objective Objective Last 24 Hour Vital Signs Date Time Temp Pulse Resp B/P (MAP) Pulse Ox O2 Delivery O2 Flow Rate FiO2 03/29/20 10:00 87 16 105/63 (77) 100 03/29/20 09:19 101 101/67 03/29/20 09:00 102 18 114/70 (85) 100 03/29/20 08:00 30 03/29/20 08:00 98.3 99 18 109/91 (97) 100 03/29/20 08:00 Mechanical Ventilator 03/29/20 08:00 102 03/29/20 07:00 107 19 119/65 (83) 100 03/29/20 07:00 97 18 30 03/29/20 06:04 119 18 03/29/20 06:00 101 18 116/62 (80) 100 03/29/20 05:30 99 17 123/69 (87) 100 03/29/20 05:15 96 19 120/68 (85) 100 03/29/20 05:00 95 18 126/68 (87) 100 03/29/20 04:15 106 19 118/67 (84) 100 03/29/20 04:00 30 03/29/20 04:00 103 03/29/20 04:00 Mechanical Ventilator 03/29/20 04:00 98.9 106 18 115/54 (74) 100 03/29/20 03:45 106 17 114/51 (72) 100 03/29/20 03:30 106 18 103/56 (72) 100 03/29/20 03:15 104 18 102/47 (65) 100 03/29/20 03:00 103 18 30 03/29/20 03:00 100 18 103/55 (71) 100 03/29/20 02:30 93 18 113/67 (82) 100 03/29/20 02:00 97 16 110/64 (79) 100 03/29/20 01:45 93 16 122/72 (89) 100 03/29/20 01:30 97 18 107/63 (78) 100 03/29/20 01:00 95 113/68 (83) 100 03/29/20 00:30 94 122/68 (86) 100 03/29/20 00:15 95 124/66 (85) 100 03/29/20 00:00 95 03/29/20 00:00 30 03/29/20 00:00 Mechanical Ventilator 03/29/20 00:00 99.0 96 126/68 (87) 100 03/28/20 23:30 98 20 132/66 (88) 100 03/28/20 23:15 98 20 128/72 (90) 100 03/28/20 23:00 101 20 125/67 (86) 100 03/28/20 22:57 96 20 30 03/28/20 22:45 99 20 127/79 (95) 100 03/28/20 22:30 99 20 132/76 (94) 100 03/28/20 22:15 100 20 130/67 (88) 100 03/28/20 22:00 98 20 126/71 (89) 100 03/28/20 21:00 101 20 125/65 (85) 100 03/28/20 20:30 104 17 121/59 (79) 100 03/28/20 20:01 96 142/71 03/28/20 20:00 98.5 100 18 113/62 (79) 100 03/28/20 20:00 102 03/28/20 20:00 30 03/28/20 20:00 Mechanical Ventilator 03/28/20 19:30 99 18 121/65 (83) 100 03/28/20 19:30 96 18 30 03/28/20 19:00 97 18 135/67 (89) 100 03/28/20 18:00 104 20 142/71 (94) 97 03/28/20 17:00 101 18 148/70 (96) 97 03/28/20 16:00 111 03/28/20 16:00 109 19 111/52 (71) 97 03/28/20 16:00 30 03/28/20 16:00 Mechanical Ventilator 03/28/20 15:03 100 18 30 03/28/20 15:00 145 18 99/71 (80) 100 03/28/20 14:30 131 10 81/60 (67) 97 03/28/20 14:03 136 03/28/20 14:00 130 18 95/58 (70) 100 03/28/20 13:30 130 19 65/42 (50) 98 03/28/20 13:10 136 03/28/20 13:00 133 18 84/68 (73) 100 03/28/20 12:30 130 23 76/52 (60) 87 03/28/20 12:00 40 03/28/20 12:00 Mechanical Ventilator 03/28/20 12:00 142 03/28/20 12:00 97.1 134 20 87/47 (60) 100 03/28/20 11:30 140 18 96/68 (77) 96 03/28/20 11:15 145 21 124/65 (84) 03/28/20 11:00 145 19 106/50 (68) 03/28/20 10:50 144 22 40 03/28/20 10:30 142 20 93/62 (72) Intake and Output 03/28/20 03/29/20 19:00 07:00 Intake Total 1078.12 ml 605.0 ml Output Total 205 ml 220 ml Balance 873.12 ml 385.0 ml Intake IV Total 1078.12 ml 605.0 ml Output Urine Total 205 ml 220 ml Laboratory Tests 03/28/20 12:10: Sodium Level 144, Potassium Level 5.3H, Chloride Level 108H, Carbon Dioxide Level 16L, Anion Gap 20H, Blood Urea Nitrogen 96H, Creatinine 5.8H, Estimat Glomerular Filtration Rate 8.8, Glucose Level 107H, Calcium Level 8.1L, Random Vancomycin Level 14.4 03/28/20 16:04: Activated Partial Thromboplast Time 31 03/28/20 18:30: Urine Color Yellow, Urine Appearance Cloudy, Urine pH 5.0, Urine Specific [place] 1.025, Urine Protein 2+H, Urine Glucose (UA) Negative, Urine Ketones 1+H , Urine Blood 4+H, Urine Nitrite Negative, Urine Bilirubin 2+H, Urine Ictotest Negative, Urine Urobilinogen 1H, Urine Leukocyte Esterase 2+H, Urine RBC 5-10H, Urine WBC 10-15H, Urine Squamous Epithelial Cells ManyH, Urine Amorphous Sediment ManyH, Urine Bacteria ManyH, Urine Opiates Screen PositiveH, Urine Barbiturates Screen Negative, Phencyclidine (PCP) Screen Negative, Urine Amphetamines Screen Negative, Urine Benzodiazepines Screen PositiveH, Urine Cocaine Screen Negative, Urine Marijuana (THC) Screen Negative 03/28/20 20:35: Sodium Level 145, Potassium Level 4.5, Chloride Level 109H, Carbon Dioxide Level 21, Anion Gap 15, Blood Urea Nitrogen 101H, Creatinine 5.4H, Estimat Glomerular Filtration Rate 9.6, Glucose Level 113H, Calcium Level 7.9L 03/28/20 20:37: Arterial Blood pH 7.330L, Arterial Blood Partial Pressure CO2 38.0, Arterial Blood Partial Pressure O2 100.5H, Arterial Blood HCO3 19.6L, Arterial Blood Oxygen Saturation 96.6, Arterial Blood Base Excess -5.8L, Kelvin Test Positive 03/28/20 23:00: Activated Partial Thromboplast Time 80H 03/29/20 04:00: Arterial Blood pH 7.334L, Arterial Blood Partial Pressure CO2 40.2, Arterial Blood Partial Pressure O2 104.0H, Arterial Blood HCO3 20.9L, Arterial Blood Oxygen Saturation 96.8, Arterial Blood Base Excess -4.6L, Kelvin Test Positive, Activated Partial Thromboplast Time 88H, White Blood Count 10.5, Red Blood Count 3.49L, Hemoglobin 9.1L, Hematocrit 27.5L, Mean Corpuscular Volume 79L, Mean Corpuscular Hemoglobin 26.1L, Mean Corpuscular Hemoglobin Concent 33.1, Red Cell Distribution Width 18.5H, Platelet Count 146L, Mean Platelet Volume 6.7 , Neutrophils (%) (Auto) , Lymphocytes (%) (Auto) , Monocytes (%) (Auto) , Eosinophils (%) (Auto) , Basophils (%) (Auto) , Differential Total Cells Counted 100, Neutrophils % (Manual) 71, Lymphocytes % (Manual) 9L, Monocytes % ( Manual) 15H, Eosinophils % (Manual) 0, Basophils % (Manual) 0, Band Neutrophils 5, Nucleated Red Blood Cells 2, Platelet Estimate DecreasedL, Platelet Morphology Normal, Hypochromasia 2+, Anisocytosis 2+, Microcytosis 1+, Sodium Level 145, Potassium Level 4.1, Chloride Level 109H, Carbon Dioxide Level 22, Anion Gap 14, Blood Urea Nitrogen 101H, Creatinine 5.3H, Estimat Glomerular Filtration Rate 9.8, Glucose Level 102, Calcium Level 7.9L, Phosphorus Level 7.5H, Magnesium Level 2.2, Total Bilirubin 0.5, Aspartate Amino Transf (AST/SGOT ) 75H, Alanine Aminotransferase (ALT/SGPT) 28, Alkaline Phosphatase 136H, Total Creatine Kinase 1891H, Total Protein 5.4L, Albumin 1.8L, Globulin 3.6, Albumin/ Globulin Ratio 0.5L Height (Feet): 5 Height (Inches): 6.00 Weight (Pounds): 249 Objective General Appearance: other - intubated Lines, tubes and drains: peripheral HEENT: normocephalic, atraumatic Neck: non-tender, normal alignment, supple Respiratory/Chest: lungs clear Cardiovascular/Chest: normal peripheral pulses, tachycardia, irregularly irregular Abdomen: soft Skin Exam: normal pigmentation Neurologic: disoriented Venkat Montes M.D. Mar 29, 2020 10:29
--- NOTE | 2020-03-29 10:40 | Pulmonology Progress Note ---
Subjective ROS Limited/Unobtainable: Yes Interval Events: Intubated; no new events Constitutional: Reports: fever HEENT: Repors: no symptoms Respiratory: Reports: no symptoms Cardiovascular: Reports: no symptoms Gastrointestinal/Abdominal: Reports: no symptoms Allergies: Coded Allergies: LISINOPRIL (Verified Allergy, Unknown, Hives, 04/12/14) Objective Last 24 Hour Vital Signs Date Time Temp Pulse Resp B/P (MAP) Pulse Ox O2 Delivery O2 Flow Rate FiO2 03/29/20 10:00 87 16 105/63 (77) 100 03/29/20 09:19 101 101/67 03/29/20 09:00 102 18 114/70 (85) 100 03/29/20 08:00 30 03/29/20 08:00 98.3 99 18 109/91 (97) 100 03/29/20 08:00 Mechanical Ventilator 03/29/20 08:00 102 03/29/20 07:00 107 19 119/65 (83) 100 03/29/20 07:00 97 18 30 03/29/20 06:04 119 18 03/29/20 06:00 101 18 116/62 (80) 100 03/29/20 05:30 99 17 123/69 (87) 100 03/29/20 05:15 96 19 120/68 (85) 100 03/29/20 05:00 95 18 126/68 (87) 100 03/29/20 04:15 106 19 118/67 (84) 100 03/29/20 04:00 30 03/29/20 04:00 103 03/29/20 04:00 Mechanical Ventilator 03/29/20 04:00 98.9 106 18 115/54 (74) 100 03/29/20 03:45 106 17 114/51 (72) 100 03/29/20 03:30 106 18 103/56 (72) 100 03/29/20 03:15 104 18 102/47 (65) 100 03/29/20 03:00 103 18 30 03/29/20 03:00 100 18 103/55 (71) 100 03/29/20 02:30 93 18 113/67 (82) 100 03/29/20 02:00 97 16 110/64 (79) 100 03/29/20 01:45 93 16 122/72 (89) 100 03/29/20 01:30 97 18 107/63 (78) 100 03/29/20 01:00 95 113/68 (83) 100 03/29/20 00:30 94 122/68 (86) 100 03/29/20 00:15 95 124/66 (85) 100 03/29/20 00:00 95 03/29/20 00:00 30 03/29/20 00:00 Mechanical Ventilator 03/29/20 00:00 99.0 96 126/68 (87) 100 03/28/20 23:30 98 20 132/66 (88) 100 03/28/20 23:15 98 20 128/72 (90) 100 03/28/20 23:00 101 20 125/67 (86) 100 03/28/20 22:57 96 20 30 03/28/20 22:45 99 20 127/79 (95) 100 03/28/20 22:30 99 20 132/76 (94) 100 03/28/20 22:15 100 20 130/67 (88) 100 03/28/20 22:00 98 20 126/71 (89) 100 03/28/20 21:00 101 20 125/65 (85) 100 03/28/20 20:30 104 17 121/59 (79) 100 03/28/20 20:01 96 142/71 03/28/20 20:00 98.5 100 18 113/62 (79) 100 03/28/20 20:00 102 03/28/20 20:00 30 03/28/20 20:00 Mechanical Ventilator 03/28/20 19:30 99 18 121/65 (83) 100 03/28/20 19:30 96 18 30 03/28/20 19:00 97 18 135/67 (89) 100 03/28/20 18:00 104 20 142/71 (94) 97 03/28/20 17:00 101 18 148/70 (96) 97 03/28/20 16:00 111 03/28/20 16:00 109 19 111/52 (71) 97 03/28/20 16:00 30 03/28/20 16:00 Mechanical Ventilator 03/28/20 15:03 100 18 30 03/28/20 15:00 145 18 99/71 (80) 100 03/28/20 14:30 131 10 81/60 (67) 97 03/28/20 14:03 136 03/28/20 14:00 130 18 95/58 (70) 100 03/28/20 13:30 130 19 65/42 (50) 98 03/28/20 13:10 136 03/28/20 13:00 133 18 84/68 (73) 100 03/28/20 12:30 130 23 76/52 (60) 87 03/28/20 12:00 40 03/28/20 12:00 Mechanical Ventilator 03/28/20 12:00 142 03/28/20 12:00 97.1 134 20 87/47 (60) 100 03/28/20 11:30 140 18 96/68 (77) 96 03/28/20 11:15 145 21 124/65 (84) 03/28/20 11:00 145 19 106/50 (68) 03/28/20 10:50 144 22 40 Intake and Output 03/28/20 03/29/20 19:00 07:00 Intake Total 1078.12 ml 605.0 ml Output Total 205 ml 220 ml Balance 873.12 ml 385.0 ml Intake IV Total 1078.12 ml 605.0 ml Output Urine Total 205 ml 220 ml General Appearance: no acute distress HEENT: normocephalic Respiratory: chest wall non-tender, lungs clear Cardiovascular: normal peripheral pulses, normal rate Abdomen: normal bowel sounds Microbiology Date/Time Source Procedure Growth Status 03/26/20 19:15 Blood Blood Culture - Preliminary NO GROWTH AFTER 48 HOURS Resulted 03/26/20 19:05 Blood Blood Culture - Preliminary NO GROWTH AFTER 48 HOURS Resulted 03/27/20 16:30 Nasopharynx SARS-CoV-2 RdRp Gene Assay - Final Complete 03/26/20 21:15 Nasopharynx Coronavirus COVID-19 PCR ([facility]) - Final Complete 03/28/20 18:30 Urine,Catheterized Urine Culture - Preliminary NO GROWTH Resulted Laboratory Tests 03/28/20 12:10: Sodium Level 144, Potassium Level 5.3H, Chloride Level 108H, Carbon Dioxide Level 16L, Anion Gap 20H, Blood Urea Nitrogen 96H, Creatinine 5.8H, Estimat Glomerular Filtration Rate 8.8, Glucose Level 107H, Calcium Level 8.1L, Random Vancomycin Level 14.4 03/28/20 16:04: Activated Partial Thromboplast Time 31 03/28/20 18:30: Urine Color Yellow, Urine Appearance Cloudy, Urine pH 5.0, Urine Specific [place] 1.025, Urine Protein 2+H, Urine Glucose (UA) Negative, Urine Ketones 1+H , Urine Blood 4+H, Urine Nitrite Negative, Urine Bilirubin 2+H, Urine Ictotest Negative, Urine Urobilinogen 1H, Urine Leukocyte Esterase 2+H, Urine RBC 5-10H, Urine WBC 10-15H, Urine Squamous Epithelial Cells ManyH, Urine Amorphous Sediment ManyH, Urine Bacteria ManyH, Urine Opiates Screen PositiveH, Urine Barbiturates Screen Negative, Phencyclidine (PCP) Screen Negative, Urine Amphetamines Screen Negative, Urine Benzodiazepines Screen PositiveH, Urine Cocaine Screen Negative, Urine Marijuana (THC) Screen Negative 03/28/20 20:35: Sodium Level 145, Potassium Level 4.5, Chloride Level 109H, Carbon Dioxide Level 21, Anion Gap 15, Blood Urea Nitrogen 101H, Creatinine 5.4H, Estimat Glomerular Filtration Rate 9.6, Glucose Level 113H, Calcium Level 7.9L 03/28/20 20:37: Arterial Blood pH 7.330L, Arterial Blood Partial Pressure CO2 38.0, Arterial Blood Partial Pressure O2 100.5H, Arterial Blood HCO3 19.6L, Arterial Blood Oxygen Saturation 96.6, Arterial Blood Base Excess -5.8L, Kelvin Test Positive 03/28/20 23:00: Activated Partial Thromboplast Time 80H 03/29/20 04:00: Arterial Blood pH 7.334L, Arterial Blood Partial Pressure CO2 40.2, Arterial Blood Partial Pressure O2 104.0H, Arterial Blood HCO3 20.9L, Arterial Blood Oxygen Saturation 96.8, Arterial Blood Base Excess -4.6L, Kelvin Test Positive, Activated Partial Thromboplast Time 88H, White Blood Count 10.5, Red Blood Count 3.49L, Hemoglobin 9.1L, Hematocrit 27.5L, Mean Corpuscular Volume 79L, Mean Corpuscular Hemoglobin 26.1L, Mean Corpuscular Hemoglobin Concent 33.1, Red Cell Distribution Width 18.5H, Platelet Count 146L, Mean Platelet Volume 6.7 , Neutrophils (%) (Auto) , Lymphocytes (%) (Auto) , Monocytes (%) (Auto) , Eosinophils (%) (Auto) , Basophils (%) (Auto) , Differential Total Cells Counted 100, Neutrophils % (Manual) 71, Lymphocytes % (Manual) 9L, Monocytes % ( Manual) 15H, Eosinophils % (Manual) 0, Basophils % (Manual) 0, Band Neutrophils 5, Nucleated Red Blood Cells 2, Platelet Estimate DecreasedL, Platelet Morphology Normal, Hypochromasia 2+, Anisocytosis 2+, Microcytosis 1+, Sodium Level 145, Potassium Level 4.1, Chloride Level 109H, Carbon Dioxide Level 22, Anion Gap 14, Blood Urea Nitrogen 101H, Creatinine 5.3H, Estimat Glomerular Filtration Rate 9.8, Glucose Level 102, Calcium Level 7.9L, Phosphorus Level 7.5H, Magnesium Level 2.2, Total Bilirubin 0.5, Aspartate Amino Transf (AST/SGOT ) 75H, Alanine Aminotransferase (ALT/SGPT) 28, Alkaline Phosphatase 136H, Total Creatine Kinase 1891H, Total Protein 5.4L, Albumin 1.8L, Globulin 3.6, Albumin/ Globulin Ratio 0.5L Current Medications Medications (Trade) Dose Ordered Sig/Debbie Route PRN Reason Start Time Stop Time Status Last Admin Dose Admin Acetaminophen (Tylenol) 650 mg Q4H PRN ORAL Mild Pain (Pain Scale 1-3) 03/26/20 21:15 04/25/20 21:14 Acetaminophen (Tylenol) 650 mg Q4H PRN ORAL Temp >100.5 03/26/20 21:15 04/25/20 21:14 Al Hydroxide/Mg Hydroxide (Mylanta II) 30 ml Q6H PRN ORAL dyspepsia 03/26/20 21:15 04/25/20 21:14 Bisacodyl (Dulcolax) 10 mg HSPRN PRN RECTAL Constipation 03/26/20 21:15 06/24/20 21:14 Cefepime HCl 1 gm/ Dextrose 55 ml @ 110 mls/hr Q24H IVPB 03/28/20 15:00 04/04/20 14:59 03/28/20 14:18 Chlorhexidine Gluconate (Laurie-Hex 2%) 1 applic DAILY@2000 TOPIC 03/28/20 20:00 06/26/20 19:59 03/28/20 20:01 Dextrose (Dextrose 50%) 25 ml Q30M PRN IV Hypoglycemia 03/26/20 21:15 06/24/20 21:14 Dextrose (Dextrose 50%) 50 ml Q30M PRN IV Hypoglycemia 03/26/20 21:15 06/24/20 21:14 Diphenhydramine HCl (Benadryl) 25 mg Q6H PRN ORAL Itching/Pruritis 03/26/20 21:15 04/25/20 21:14 Docusate Sodium (Colace) 100 mg EVERY 12 HOURS ORAL 03/27/20 09:00 04/26/20 08:59 03/29/20 09:19 Gabapentin (Neurontin) 300 mg BEDTIME ORAL 03/27/20 21:00 04/26/20 20:59 03/28/20 20:01 Heparin Sodium/ Dextrose 500 ml @ 40.5 mls/hr ADJUST PER PROTOCOL IV 03/28/20 16:22 04/27/20 16:21 03/29/20 06:00 Lorazepam (Ativan 2mg/ml 1ml) 0.5 mg Q4H PRN IV For Anxiety 03/26/20 21:15 04/02/20 21:14 Magnesium Hydroxide (Mom) 30 ml HSPRN PRN ORAL Constipation 03/26/20 21:15 04/25/20 21:14 Metoclopramide HCl (Reglan) 10 mg Q6H PRN IVP Nausea & Vomiting 03/26/20 21:15 04/25/20 21:14 Metoprolol Tartrate (Lopressor) 100 mg EVERY 12 HOURS ORAL 03/27/20 09:00 06/25/20 08:59 03/29/20 09:19 Metronidazole 100 ml @ 100 mls/hr Q8HR IVPB 03/27/20 22:00 04/03/20 21:59 03/29/20 06:05 Morphine Sulfate (Morphine Sulfate) 2 mg Q4H PRN IVP Moderate Pain (Pain Scale 4-6) 03/26/20 21:15 04/02/20 21:14 Morphine Sulfate (Morphine Sulfate) 4 mg Q4H PRN IVP Severe Pain (Pain Scale 7-10) 03/26/20 21:15 04/02/20 21:14 Norepinephrine Bitartrate 4 mg/ Dextrose 250 ml @ 0 mls/hr Q24H IV 03/28/20 16:00 04/27/20 15:59 Ondansetron HCl (Zofran) 4 mg Q6H PRN IVP Nausea & Vomiting 03/26/20 21:15 04/25/20 21:14 Polyethylene Glycol (Miralax) 17 gm HSPRN PRN ORAL Constipation 03/26/20 21:15 04/25/20 21:14 Sevelamer Carbonate (Renvela) 800 mg THREE TIMES A DAY NG 03/29/20 09:00 06/27/20 08:59 03/29/20 09:19 Temazepam (Restoril) 15 mg HSPRN PRN ORAL Insomnia 03/26/20 21:15 04/02/20 21:14 Vancomycin HCl (Vanco pharmacy to dose) 1 ea DAILY PRN MISC Per rx protocol 03/27/20 20:15 04/26/20 20:14 Assessment/Plan Assessment/Plan IMPRESSION: 1. Hyperkalemia. 2. Sinus tachycardia. 3. Rule out sepsis. 4. Hypertension. 5. Seizure disorder. 6. Acute renal failure. 7. Respiratory failure DISCUSSION: Continue ICU care Correction of electrolytes Now on 30% FiO2 Weaning in progress Abx Seven Yao Omar Syed MD Mar 29, 2020 10:39
--- NOTE | 2020-03-29 10:48 | Diagnostic Imaging Report ---
Indication: Shortness of breath Technique: One view of the chest Comparison: 03/28/2020 post PICC radiograph Findings: Stable satisfactory positions of endotracheal tube, orogastric tube, left arm PICC. There is some increased atelectasis at the right lung base. There is minimal left basilar atelectasis as well. The heart size is normal. Impression: Increased right basilar atelectasis. Otherwise little change management consultant one day, findings as noted
--- NOTE | 2020-03-29 11:27 | Cardiology Progress Note ---
Assessment/Plan Status: stable Assessment/Plan Assessment/Plan Problem List: (1) Atrial flutter ICD Codes: I48.92 - Unspecified atrial flutter SNOMED: 8051281 (2) Hypertension ICD Codes: I10 - Essential (primary) hypertension SNOMED: 70042489 (3) Hyperkalemia ICD Codes: E87.5 - Hyperkalemia SNOMED: 35594719 (4) Acute encephalopathy ICD Codes: G93.40 - Encephalopathy, unspecified SNOMED: 2001247 (5) Acute and chronic respiratory failure with hypoxia ICD Codes: J96.21 - Acute and chronic respiratory failure with hypoxia SNOMED: 17900967, 315542484 (6) VENTURA (acute kidney injury) ICD Codes: N17.9 - Acute kidney failure, unspecified SNOMED: 4673474, 36468539 Status: deteriorating AFIB -Rate controlled -No indication for cardioversion at this time -Metoprolol 100 mg BID -Can not use amiodarone given elevated LFTs -Can not use digoxin given elevated creatinine -Heparin gtt -> transition to NOAC -Echocardiogram with normal LV function Elevated BNP -CXR clear -Echocardiogram normal LV function -No signs of LV fluid overload, wll monitor right sided filling pressures -Hold diuresis for now given VENTURA/CKD/Rhabdo -IV fluids for sepsis and hypotension Critical care 40 minutes Subjective Cardiovascular: Reports: no symptoms Respiratory: Reports: no symptoms Gastrointestinal/Abdominal: Reports: no symptoms Genitourinary: Reports: no symptoms Subjective Extubated to non rebreather Heart rate controlled BP stable NO fevers, clinically improving Objective Last 24 Hour Vital Signs Date Time Temp Pulse Resp B/P (MAP) Pulse Ox O2 Delivery O2 Flow Rate FiO2 03/29/20 10:00 87 16 105/63 (77) 100 03/29/20 09:19 101 101/67 03/29/20 09:00 102 18 114/70 (85) 100 03/29/20 08:00 30 03/29/20 08:00 98.3 99 18 109/91 (97) 100 03/29/20 08:00 Mechanical Ventilator 03/29/20 08:00 102 03/29/20 07:00 107 19 119/65 (83) 100 03/29/20 07:00 97 18 30 03/29/20 06:04 119 18 03/29/20 06:00 101 18 116/62 (80) 100 03/29/20 05:30 99 17 123/69 (87) 100 03/29/20 05:15 96 19 120/68 (85) 100 03/29/20 05:00 95 18 126/68 (87) 100 03/29/20 04:15 106 19 118/67 (84) 100 03/29/20 04:00 30 03/29/20 04:00 103 03/29/20 04:00 Mechanical Ventilator 03/29/20 04:00 98.9 106 18 115/54 (74) 100 03/29/20 03:45 106 17 114/51 (72) 100 03/29/20 03:30 106 18 103/56 (72) 100 03/29/20 03:15 104 18 102/47 (65) 100 03/29/20 03:00 103 18 30 03/29/20 03:00 100 18 103/55 (71) 100 03/29/20 02:30 93 18 113/67 (82) 100 03/29/20 02:00 97 16 110/64 (79) 100 03/29/20 01:45 93 16 122/72 (89) 100 03/29/20 01:30 97 18 107/63 (78) 100 03/29/20 01:00 95 113/68 (83) 100 03/29/20 00:30 94 122/68 (86) 100 03/29/20 00:15 95 124/66 (85) 100 03/29/20 00:00 95 03/29/20 00:00 30 03/29/20 00:00 Mechanical Ventilator 03/29/20 00:00 99.0 96 126/68 (87) 100 03/28/20 23:30 98 20 132/66 (88) 100 03/28/20 23:15 98 20 128/72 (90) 100 03/28/20 23:00 101 20 125/67 (86) 100 03/28/20 22:57 96 20 30 03/28/20 22:45 99 20 127/79 (95) 100 03/28/20 22:30 99 20 132/76 (94) 100 03/28/20 22:15 100 20 130/67 (88) 100 03/28/20 22:00 98 20 126/71 (89) 100 03/28/20 21:00 101 20 125/65 (85) 100 03/28/20 20:30 104 17 121/59 (79) 100 03/28/20 20:01 96 142/71 03/28/20 20:00 98.5 100 18 113/62 (79) 100 03/28/20 20:00 102 03/28/20 20:00 30 03/28/20 20:00 Mechanical Ventilator 03/28/20 19:30 99 18 121/65 (83) 100 03/28/20 19:30 96 18 30 03/28/20 19:00 97 18 135/67 (89) 100 03/28/20 18:00 104 20 142/71 (94) 97 03/28/20 17:00 101 18 148/70 (96) 97 03/28/20 16:00 111 03/28/20 16:00 109 19 111/52 (71) 97 03/28/20 16:00 30 03/28/20 16:00 Mechanical Ventilator 03/28/20 15:03 100 18 30 03/28/20 15:00 145 18 99/71 (80) 100 03/28/20 14:30 131 10 81/60 (67) 97 03/28/20 14:03 136 03/28/20 14:00 130 18 95/58 (70) 100 03/28/20 13:30 130 19 65/42 (50) 98 03/28/20 13:10 136 03/28/20 13:00 133 18 84/68 (73) 100 03/28/20 12:30 130 23 76/52 (60) 87 03/28/20 12:00 40 03/28/20 12:00 Mechanical Ventilator 03/28/20 12:00 142 03/28/20 12:00 97.1 134 20 87/47 (60) 100 03/28/20 11:30 140 18 96/68 (77) 96 General Appearance: no apparent distress, alert EENT: PERRL/EOMI, normal ENT inspection, TMs normal Neck: non-tender, normal alignment, normal inspection Rhythm: NSR Cardiovascular: normal peripheral pulses, normal rate, regular rhythm Respiratory/Chest: chest wall non-tender, crackles/rales, rhonchi - bilaterally Abdomen: normal bowel sounds, non tender, soft, no organomegaly, no mass Extremities: normal range of motion, non-tender, normal inspection, no calf tenderness, no swelling Neurologic: passenger relations representative II-XII grossly normal, no motor/sensory deficits Intake and Output 03/28/20 03/29/20 19:00 07:00 Intake Total 1078.12 ml 605.0 ml Output Total 205 ml 220 ml Balance 873.12 ml 385.0 ml Intake IV Total 1078.12 ml 605.0 ml Output Urine Total 205 ml 220 ml Laboratory Tests Test 03/28/20 12:10 03/28/20 16:04 03/28/20 18:30 03/28/20 20:35 Sodium Level 144 MMOL/L (136-145) 145 MMOL/L (136-145) Potassium Level 5.3 MMOL/L (3.5-5.1) H 4.5 MMOL/L (3.5-5.1) Chloride Level 108 MMOL/L (98-107) H 109 MMOL/L (98-107) H Carbon Dioxide Level 16 MMOL/L (21-32) L 21 MMOL/L (21-32) Anion Gap 20 mmol/L (5-15) H 15 mmol/L (5-15) Blood Urea Nitrogen 96 mg/dL (7-18) H 101 mg/dL (7-18) H Creatinine 5.8 MG/DL (0.55-1.30) H 5.4 MG/DL (0.55-1.30) H Estimat Glomerular Filtration Rate 8.8 mL/min (>60) 9.6 mL/min (>60) Glucose Level 107 MG/DL (74-106) H 113 MG/DL (74-106) H Calcium Level 8.1 MG/DL (8.5-10.1) L 7.9 MG/DL (8.5-10.1) L Random Vancomycin Level 14.4 ug/mL Activated Partial Thromboplast Time 31 SEC (23-33) Urine Color Yellow Urine Appearance Cloudy Urine pH 5.0 (4.5-8.0) Urine Specific [place] 1.025 (1.005-1.035) Urine Protein 2+ (NEGATIVE) H Urine Glucose (UA) Negative (NEGATIVE) Urine Ketones 1+ (NEGATIVE) H Urine Blood 4+ (NEGATIVE) H Urine Nitrite Negative (NEGATIVE) Urine Bilirubin 2+ (NEGATIVE) H Urine Ictotest Negative (NEGATIVE) Urine Urobilinogen 1 MG/DL (0.0-1.0) H Urine Leukocyte Esterase 2+ (NEGATIVE) H Urine RBC 5-10 /HPF (0 - 2) H Urine WBC 10-15 /HPF (0 - 2) H Urine Squamous Epithelial Cells Many /LPF (NONE/OCC) H Urine Amorphous Sediment Many /LPF (NONE) H Urine Bacteria Many /HPF (NONE) H Urine Opiates Screen Positive (NEGATIVE) H Urine Barbiturates Screen Negative (NEGATIVE) Phencyclidine (PCP) Screen Negative (NEGATIVE) Urine Amphetamines Screen Negative (NEGATIVE) Urine Benzodiazepines Screen Positive (NEGATIVE) H Urine Cocaine Screen Negative (NEGATIVE) Urine Marijuana (THC) Screen Negative (NEGATIVE) Test 03/28/20 20:37 03/28/20 23:00 03/29/20 04:00 Arterial Blood pH 7.330 (7.350-7.450) 7.334 (7.350-7.450) Arterial Blood Partial Pressure CO2 38.0 mmHg (35.0-45.0) 40.2 mmHg (35.0-45.0) Arterial Blood Partial Pressure O2 100.5 mmHg (75.0-100.0) H 104.0 mmHg (75.0-100.0) H Arterial Blood HCO3 19.6 mmol/L (22.0-26.0) L 20.9 mmol/L (22.0-26.0) L Arterial Blood Oxygen Saturation 96.6 % (95-100) 96.8 % (95-100) Arterial Blood Base Excess -5.8 (-2-2) L -4.6 (-2-2) L Kelvin Test Positive Positive Activated Partial Thromboplast Time 80 SEC (23-33) H 88 SEC (23-33) H White Blood Count 10.5 K/UL (4.8-10.8) Red Blood Count 3.49 M/UL (4.20-5.40) L Hemoglobin 9.1 G/DL (12.0-16.0) L Hematocrit 27.5 % (37.0-47.0) L Mean Corpuscular Volume 79 FL (80-99) L Mean Corpuscular Hemoglobin 26.1 PG (27.0-31.0) L Mean Corpuscular Hemoglobin Concent 33.1 G/DL (32.0-36.0) Red Cell Distribution Width 18.5 % (11.6-14.8) H Platelet Count 146 K/UL (150-450) L Mean Platelet Volume 6.7 FL (6.5-10.1) Neutrophils (%) (Auto) % (45.0-75.0) Lymphocytes (%) (Auto) % (20.0-45.0) Monocytes (%) (Auto) % (1.0-10.0) Eosinophils (%) (Auto) % (0.0-3.0) Basophils (%) (Auto) % (0.0-2.0) Differential Total Cells Counted 100 Neutrophils % (Manual) 71 % (45-75) Lymphocytes % (Manual) 9 % (20-45) L Monocytes % (Manual) 15 % (1-10) H Eosinophils % (Manual) 0 % (0-3) Basophils % (Manual) 0 % (0-2) Band Neutrophils 5 % (0-8) Nucleated Red Blood Cells 2 /100 WBC Platelet Estimate Decreased L Platelet Morphology Normal Hypochromasia 2+ Anisocytosis 2+ Microcytosis 1+ Sodium Level 145 MMOL/L (136-145) Potassium Level 4.1 MMOL/L (3.5-5.1) Chloride Level 109 MMOL/L (98-107) H Carbon Dioxide Level 22 MMOL/L (21-32) Anion Gap 14 mmol/L (5-15) Blood Urea Nitrogen 101 mg/dL (7-18) H Creatinine 5.3 MG/DL (0.55-1.30) H Estimat Glomerular Filtration Rate 9.8 mL/min (>60) Glucose Level 102 MG/DL (74-106) Calcium Level 7.9 MG/DL (8.5-10.1) L Phosphorus Level 7.5 MG/DL (2.5-4.9) H Magnesium Level 2.2 MG/DL (1.8-2.4) Total Bilirubin 0.5 MG/DL (0.2-1.0) Aspartate Amino Transf (AST/SGOT) 75 U/L (15-37) H Alanine Aminotransferase (ALT/SGPT) 28 U/L (12-78) Alkaline Phosphatase 136 U/L (46-116) H Total Creatine Kinase 1891 U/L (26-308) H Total Protein 5.4 G/DL (6.4-8.2) L Albumin 1.8 G/DL (3.4-5.0) L Globulin 3.6 g/dL Albumin/Globulin Ratio 0.5 (1.0-2.7) L Microbiology Date/Time Source Procedure Growth Status 03/26/20 19:15 Blood Blood Culture - Preliminary NO GROWTH AFTER 48 HOURS Resulted 03/26/20 19:05 Blood Blood Culture - Preliminary NO GROWTH AFTER 48 HOURS Resulted 03/27/20 16:30 Nasopharynx SARS-CoV-2 RdRp Gene Assay - Final Complete 03/26/20 21:15 Nasopharynx Coronavirus COVID-19 PCR ([facility]) - Final Complete 03/28/20 18:30 Urine,Catheterized Urine Culture - Preliminary NO GROWTH Resulted Rafat Crooks MD Mar 29, 2020 11:27
--- NOTE | 2020-03-29 12:04 | NUR ---
NURSE NOTES: Pt turned and repositioned, no significant change in condition.Will continue same care plan.Call light within reach, all dressings changed with wound nurse.
--- NOTE | 2020-03-29 13:13 | General Progress Note ---
Assessment/Plan Problem List: (1) Atrial flutter ICD Codes: I48.92 - Unspecified atrial flutter SNOMED: 3753805 (2) Hypertension ICD Codes: I10 - Essential (primary) hypertension SNOMED: 08625009 (3) Hyperkalemia ICD Codes: E87.5 - Hyperkalemia SNOMED: 18817079 (4) Acute encephalopathy ICD Codes: G93.40 - Encephalopathy, unspecified SNOMED: 8945115 (5) Acute and chronic respiratory failure with hypoxia ICD Codes: J96.21 - Acute and chronic respiratory failure with hypoxia SNOMED: 80737240, 053732611 (6) VENTURA (acute kidney injury) ICD Codes: N17.9 - Acute kidney failure, unspecified SNOMED: 5201508, 21227250 Status: stable Assessment/Plan: Ms. Hayward is a 69 year old female with unknown history, presenting with AMS, weaknses, found to have rhabdo, VENTURA, a fib RVR then later was intubated for hypoxia/stridor. #Shock, unspecified -hypotensive -continue levophed for MAP >65 -central line. #Acute hypoxic respiratory failure #Acute toxometabolic encephalopathy -Intubated in the ED (03/27 -) -pulm/ICU consulted. appreciate recs. -continue ventilator therapy -daily SBT per pulm. #A fib RVR - resolved #Elevated BNP #?CHF -s/p multiple doses of MTP in the ED. -cardiology consulted. appreciate recs. -MTP 100 BID, per cards. -amio, digoxin contraindicated given elevated LFTs and renal failure, respectively. #rhabdomyolosis - improving. -CK >68205 on presentation. -s/p IVF boluses in ED. continue IVF. -check CK daily #VENTURA #Hyperkalemia #Anion gap metabolic acidosis -worsening renal fx. HyperK resolved. -nephrology on board. May need HD, not indicated at this time. -Na bicarb for acidosis -trend BMP -IVF per nephro. #Sepsis -BCx NGTD -UA ordered in ED but nevev collected. will obtain again. -continue cefepime,flagyl,vanc (03/27 -) -f/u cultures. UA dirty, UCx, BCx pending. Time spent on encounter, 46 minutes, 30 mins spent on critical care, which includes telemetry review, lab data review, interpretation, radiology image review, interpretation, ventilator setting review, management, ABG interpretation, discussion with ICU team, nursing staff, consulting services. Time of note doesn't reflect time of encounter. Subjective Date patient seen: Mar 29, 2020 ROS Limited/Unobtainable: No Constitutional: Denies: no symptoms, chills, diaphoresis, fever, malaise, weakness, other HEENT: Denies: no symptoms, eye pain, blurred vision, tearing, double vision, ear pain, ear discharge, nose pain, nose congestion, throat pain, throat swelling, mouth pain, mouth swelling, other Cardiovascular: Denies: no symptoms, chest pain, edema, irregular heart rate, lightheadedness, palpitations, syncope, other Respiratory: Denies: no symptoms, cough, orthopnea, shortness of breath, SOB with excertion, SOB at rest, sputum, stridor, wheezing, other Gastrointestinal/Abdominal: Denies: no symptoms, abdomen distended, abdominal pain, black stools, tarry stools, blood in stool, constipated, diarrhea, difficulty swallowing, nausea, poor appetite, poor fluid intake, rectal bleeding , vomiting, other Genitourinary: Denies: no symptoms, burning, discharge, frequency, flank pain, hematuria, incontinence, pain, urgency, other Neurologic/Psychiatric: Denies: no symptoms, anxiety, depressed, emotional problems, headache, numbness, paresthesia, pre-existing deficit, seizure, tingling, tremors, weakness, other Endocrine: Denies: no symptoms, excessive sweating, flushing, intolerance to cold, intolerance to heat, increased hunger, increased thirst, increased urine, unexplained weight gain, unexplained weight loss, other Hematologic/Lymphatic: Denies: no symptoms, anemia, easy bleeding, easy bruising, other Allergies: Coded Allergies: LISINOPRIL (Verified Allergy, Unknown, Hives, 04/12/14) Subjective intubated, nonverbal. arousable to voice, following simple commands. denies any pain. Objective Last 24 Hour Vital Signs Date Time Temp Pulse Resp B/P (MAP) Pulse Ox O2 Delivery O2 Flow Rate FiO2 03/29/20 12:00 87 18 110/64 (79) 100 03/29/20 11:00 88 18 100/57 (71) 100 03/29/20 11:00 89 19 30 03/29/20 10:00 87 16 105/63 (77) 100 03/29/20 09:19 101 101/67 03/29/20 09:00 102 18 114/70 (85) 100 03/29/20 08:00 30 03/29/20 08:00 98.3 99 18 109/91 (97) 100 03/29/20 08:00 Mechanical Ventilator 03/29/20 08:00 102 03/29/20 07:00 107 19 119/65 (83) 100 03/29/20 07:00 97 18 30 03/29/20 06:04 119 18 03/29/20 06:00 101 18 116/62 (80) 100 03/29/20 05:30 99 17 123/69 (87) 100 03/29/20 05:15 96 19 120/68 (85) 100 03/29/20 05:00 95 18 126/68 (87) 100 03/29/20 04:15 106 19 118/67 (84) 100 03/29/20 04:00 30 03/29/20 04:00 103 03/29/20 04:00 Mechanical Ventilator 03/29/20 04:00 98.9 106 18 115/54 (74) 100 03/29/20 03:45 106 17 114/51 (72) 100 03/29/20 03:30 106 18 103/56 (72) 100 03/29/20 03:15 104 18 102/47 (65) 100 03/29/20 03:00 103 18 30 03/29/20 03:00 100 18 103/55 (71) 100 03/29/20 02:30 93 18 113/67 (82) 100 03/29/20 02:00 97 16 110/64 (79) 100 03/29/20 01:45 93 16 122/72 (89) 100 03/29/20 01:30 97 18 107/63 (78) 100 03/29/20 01:00 95 113/68 (83) 100 03/29/20 00:30 94 122/68 (86) 100 03/29/20 00:15 95 124/66 (85) 100 03/29/20 00:00 95 03/29/20 00:00 30 03/29/20 00:00 Mechanical Ventilator 03/29/20 00:00 99.0 96 126/68 (87) 100 03/28/20 23:30 98 20 132/66 (88) 100 03/28/20 23:15 98 20 128/72 (90) 100 03/28/20 23:00 101 20 125/67 (86) 100 03/28/20 22:57 96 20 30 03/28/20 22:45 99 20 127/79 (95) 100 03/28/20 22:30 99 20 132/76 (94) 100 03/28/20 22:15 100 20 130/67 (88) 100 03/28/20 22:00 98 20 126/71 (89) 100 03/28/20 21:00 101 20 125/65 (85) 100 03/28/20 20:30 104 17 121/59 (79) 100 03/28/20 20:01 96 142/71 03/28/20 20:00 98.5 100 18 113/62 (79) 100 03/28/20 20:00 102 03/28/20 20:00 30 03/28/20 20:00 Mechanical Ventilator 03/28/20 19:30 99 18 121/65 (83) 100 03/28/20 19:30 96 18 30 03/28/20 19:00 97 18 135/67 (89) 100 03/28/20 18:00 104 20 142/71 (94) 97 03/28/20 17:00 101 18 148/70 (96) 97 03/28/20 16:00 111 03/28/20 16:00 109 19 111/52 (71) 97 03/28/20 16:00 30 03/28/20 16:00 Mechanical Ventilator 03/28/20 15:03 100 18 30 03/28/20 15:00 145 18 99/71 (80) 100 03/28/20 14:30 131 10 81/60 (67) 97 03/28/20 14:03 136 03/28/20 14:00 130 18 95/58 (70) 100 03/28/20 13:30 130 19 65/42 (50) 98 03/28/20 13:10 136 Intake and Output 03/28/20 03/29/20 19:00 07:00 Intake Total 1078.12 ml 605.0 ml Output Total 205 ml 220 ml Balance 873.12 ml 385.0 ml IV Total 1078.12 ml 605.0 ml Output Urine Total 205 ml 220 ml Laboratory Tests 03/28/20 16:04: Activated Partial Thromboplast Time 31 03/28/20 18:30: Urine Color Yellow, Urine Appearance Cloudy, Urine pH 5.0, Urine Specific [place] 1.025, Urine Protein 2+H, Urine Glucose (UA) Negative, Urine Ketones 1+H , Urine Blood 4+H, Urine Nitrite Negative, Urine Bilirubin 2+H, Urine Ictotest Negative, Urine Urobilinogen 1H, Urine Leukocyte Esterase 2+H, Urine RBC 5-10H, Urine WBC 10-15H, Urine Squamous Epithelial Cells ManyH, Urine Amorphous Sediment ManyH, Urine Bacteria ManyH, Urine Opiates Screen PositiveH, Urine Barbiturates Screen Negative, Phencyclidine (PCP) Screen Negative, Urine Amphetamines Screen Negative, Urine Benzodiazepines Screen PositiveH, Urine Cocaine Screen Negative, Urine Marijuana (THC) Screen Negative 03/28/20 20:35: Sodium Level 145, Potassium Level 4.5, Chloride Level 109H, Carbon Dioxide Level 21, Anion Gap 15, Blood Urea Nitrogen 101H, Creatinine 5.4H, Estimat Glomerular Filtration Rate 9.6, Glucose Level 113H, Calcium Level 7.9L 03/28/20 20:37: Arterial Blood pH 7.330L, Arterial Blood Partial Pressure CO2 38.0, Arterial Blood Partial Pressure O2 100.5H, Arterial Blood HCO3 19.6L, Arterial Blood Oxygen Saturation 96.6, Arterial Blood Base Excess -5.8L, Kelvin Test Positive 03/28/20 23:00: Activated Partial Thromboplast Time 80H 03/29/20 04:00: Activated Partial Thromboplast Time 88H, White Blood Count 10.5, Red Blood Count 3.49L, Hemoglobin 9.1L, Hematocrit 27.5L, Mean Corpuscular Volume 79L, Mean Corpuscular Hemoglobin 26.1L, Mean Corpuscular Hemoglobin Concent 33.1, Red Cell Distribution Width 18.5H, Platelet Count 146L, Mean Platelet Volume 6.7 , Neutrophils (%) (Auto) , Lymphocytes (%) (Auto) , Monocytes (%) (Auto) , Eosinophils (%) (Auto) , Basophils (%) (Auto) , Differential Total Cells Counted 100, Neutrophils % (Manual) 71, Lymphocytes % (Manual) 9L, Monocytes % ( Manual) 15H, Eosinophils % (Manual) 0, Basophils % (Manual) 0, Band Neutrophils 5, Nucleated Red Blood Cells 2, Platelet Estimate DecreasedL, Platelet Morphology Normal, Hypochromasia 2+, Anisocytosis 2+, Microcytosis 1+, Arterial Blood pH 7.334L, Arterial Blood Partial Pressure CO2 40.2, Arterial Blood Partial Pressure O2 104.0H, Arterial Blood HCO3 20.9L, Arterial Blood Oxygen Saturation 96.8, Arterial Blood Base Excess -4.6L, Kelvin Test Positive, Sodium Level 145, Potassium Level 4.1, Chloride Level 109H, Carbon Dioxide Level 22, Anion Gap 14, Blood Urea Nitrogen 101H, Creatinine 5.3H, Estimat Glomerular Filtration Rate 9.8, Glucose Level 102, Calcium Level 7.9L, Phosphorus Level 7.5H, Magnesium Level 2.2, Total Bilirubin 0.5, Aspartate Amino Transf (AST/SGOT ) 75H, Alanine Aminotransferase (ALT/SGPT) 28, Alkaline Phosphatase 136H, Total Creatine Kinase 1891H, Total Protein 5.4L, Albumin 1.8L, Globulin 3.6, Albumin/ Globulin Ratio 0.5L 03/29/20 11:05: Random Vancomycin Level 18.7 Height (Feet): 5 Height (Inches): 6.00 Weight (Pounds): 249 General Appearance: no apparent distress, obese EENT: PERRL/EOMI Cardiovascular: normal rate, regular rhythm Respiratory/Chest: lungs clear, normal breath sounds Abdomen: non tender, soft Neurologic: other - intubated, but arousable to voice, following commands Ousmane Torres MD Mar 29, 2020 13:13
--- NOTE | 2020-03-29 14:02 | NUR ---
NURSE NOTES: No significant change in condition.Will continue same care plan.Turned and repositioned for comfort and skin management
--- NOTE | 2020-03-29 14:17 | Surgery Progress Note ---
Surgery Progress Note Subjective Additional Comments ng tube in place picc line okay labs noted wbc h/h trending down urine / micro noted Objective Last 24 Hour Vital Signs Date Time Temp Pulse Resp B/P (MAP) Pulse Ox O2 Delivery O2 Flow Rate FiO2 03/29/20 13:00 98.8 91 18 108/61 (77) 100 03/29/20 12:00 Mechanical Ventilator 03/29/20 12:00 88 03/29/20 12:00 87 18 110/64 (79) 100 03/29/20 12:00 30 03/29/20 11:00 88 18 100/57 (71) 100 03/29/20 11:00 89 19 30 03/29/20 10:00 87 16 105/63 (77) 100 03/29/20 09:19 101 101/67 03/29/20 09:00 102 18 114/70 (85) 100 03/29/20 08:00 30 03/29/20 08:00 98.3 99 18 109/91 (97) 100 03/29/20 08:00 Mechanical Ventilator 03/29/20 08:00 102 03/29/20 07:00 107 19 119/65 (83) 100 03/29/20 07:00 97 18 30 03/29/20 06:04 119 18 03/29/20 06:00 101 18 116/62 (80) 100 03/29/20 05:30 99 17 123/69 (87) 100 03/29/20 05:15 96 19 120/68 (85) 100 03/29/20 05:00 95 18 126/68 (87) 100 03/29/20 04:15 106 19 118/67 (84) 100 03/29/20 04:00 30 03/29/20 04:00 103 03/29/20 04:00 Mechanical Ventilator 03/29/20 04:00 98.9 106 18 115/54 (74) 100 03/29/20 03:45 106 17 114/51 (72) 100 03/29/20 03:30 106 18 103/56 (72) 100 03/29/20 03:15 104 18 102/47 (65) 100 03/29/20 03:00 103 18 30 03/29/20 03:00 100 18 103/55 (71) 100 03/29/20 02:30 93 18 113/67 (82) 100 03/29/20 02:00 97 16 110/64 (79) 100 03/29/20 01:45 93 16 122/72 (89) 100 03/29/20 01:30 97 18 107/63 (78) 100 03/29/20 01:00 95 113/68 (83) 100 03/29/20 00:30 94 122/68 (86) 100 03/29/20 00:15 95 124/66 (85) 100 03/29/20 00:00 95 03/29/20 00:00 30 03/29/20 00:00 Mechanical Ventilator 03/29/20 00:00 99.0 96 126/68 (87) 100 03/28/20 23:30 98 20 132/66 (88) 100 03/28/20 23:15 98 20 128/72 (90) 100 03/28/20 23:00 101 20 125/67 (86) 100 03/28/20 22:57 96 20 30 03/28/20 22:45 99 20 127/79 (95) 100 03/28/20 22:30 99 20 132/76 (94) 100 03/28/20 22:15 100 20 130/67 (88) 100 03/28/20 22:00 98 20 126/71 (89) 100 03/28/20 21:00 101 20 125/65 (85) 100 03/28/20 20:30 104 17 121/59 (79) 100 03/28/20 20:01 96 142/71 03/28/20 20:00 98.5 100 18 113/62 (79) 100 03/28/20 20:00 102 03/28/20 20:00 30 03/28/20 20:00 Mechanical Ventilator 03/28/20 19:30 99 18 121/65 (83) 100 03/28/20 19:30 96 18 30 03/28/20 19:00 97 18 135/67 (89) 100 03/28/20 18:00 104 20 142/71 (94) 97 03/28/20 17:00 101 18 148/70 (96) 97 03/28/20 16:00 111 03/28/20 16:00 109 19 111/52 (71) 97 03/28/20 16:00 30 03/28/20 16:00 Mechanical Ventilator 03/28/20 15:03 100 18 30 03/28/20 15:00 145 18 99/71 (80) 100 03/28/20 14:30 131 10 81/60 (67) 97 I&O Intake and Output 03/28/20 03/29/20 19:00 07:00 Intake Total 1078.12 ml 605.0 ml Output Total 205 ml 220 ml Balance 873.12 ml 385.0 ml IV Total 1078.12 ml 605.0 ml Output Urine Total 205 ml 220 ml Dressing: other Wound: other Drains: other Cardiovascular: RSR Respiratory: decreased breath sounds Abdomen: soft, present bowel sounds Extremities: no cyanosis Laboratory Tests Test 03/28/20 16:04 03/28/20 18:30 03/28/20 20:35 03/28/20 20:37 Activated Partial Thromboplast Time 31 SEC (23-33) Urine Color Yellow Urine Appearance Cloudy Urine pH 5.0 (4.5-8.0) Urine Specific [place] 1.025 (1.005-1.035) Urine Protein 2+ (NEGATIVE) H Urine Glucose (UA) Negative (NEGATIVE) Urine Ketones 1+ (NEGATIVE) H Urine Blood 4+ (NEGATIVE) H Urine Nitrite Negative (NEGATIVE) Urine Bilirubin 2+ (NEGATIVE) H Urine Ictotest Negative (NEGATIVE) Urine Urobilinogen 1 MG/DL (0.0-1.0) H Urine Leukocyte Esterase 2+ (NEGATIVE) H Urine RBC 5-10 /HPF (0 - 2) H Urine WBC 10-15 /HPF (0 - 2) H Urine Squamous Epithelial Cells Many /LPF (NONE/OCC) H Urine Amorphous Sediment Many /LPF (NONE) H Urine Bacteria Many /HPF (NONE) H Urine Opiates Screen Positive (NEGATIVE) H Urine Barbiturates Screen Negative (NEGATIVE) Phencyclidine (PCP) Screen Negative (NEGATIVE) Urine Amphetamines Screen Negative (NEGATIVE) Urine Benzodiazepines Screen Positive (NEGATIVE) H Urine Cocaine Screen Negative (NEGATIVE) Urine Marijuana (THC) Screen Negative (NEGATIVE) Sodium Level 145 MMOL/L (136-145) Potassium Level 4.5 MMOL/L (3.5-5.1) Chloride Level 109 MMOL/L (98-107) H Carbon Dioxide Level 21 MMOL/L (21-32) Anion Gap 15 mmol/L (5-15) Blood Urea Nitrogen 101 mg/dL (7-18) H Creatinine 5.4 MG/DL (0.55-1.30) H Estimat Glomerular Filtration Rate 9.6 mL/min (>60) Glucose Level 113 MG/DL (74-106) H Calcium Level 7.9 MG/DL (8.5-10.1) L Arterial Blood pH 7.330 (7.350-7.450) Arterial Blood Partial Pressure CO2 38.0 mmHg (35.0-45.0) Arterial Blood Partial Pressure O2 100.5 mmHg (75.0-100.0) H Arterial Blood HCO3 19.6 mmol/L (22.0-26.0) L Arterial Blood Oxygen Saturation 96.6 % (95-100) Arterial Blood Base Excess -5.8 (-2-2) L Kelvin Test Positive Test 03/28/20 23:00 03/29/20 04:00 03/29/20 11:05 Activated Partial Thromboplast Time 80 SEC (23-33) H 88 SEC (23-33) H White Blood Count 10.5 K/UL (4.8-10.8) Red Blood Count 3.49 M/UL (4.20-5.40) L Hemoglobin 9.1 G/DL (12.0-16.0) L Hematocrit 27.5 % (37.0-47.0) L Mean Corpuscular Volume 79 FL (80-99) L Mean Corpuscular Hemoglobin 26.1 PG (27.0-31.0) L Mean Corpuscular Hemoglobin Concent 33.1 G/DL (32.0-36.0) Red Cell Distribution Width 18.5 % (11.6-14.8) H Platelet Count 146 K/UL (150-450) L Mean Platelet Volume 6.7 FL (6.5-10.1) Neutrophils (%) (Auto) % (45.0-75.0) Lymphocytes (%) (Auto) % (20.0-45.0) Monocytes (%) (Auto) % (1.0-10.0) Eosinophils (%) (Auto) % (0.0-3.0) Basophils (%) (Auto) % (0.0-2.0) Differential Total Cells Counted 100 Neutrophils % (Manual) 71 % (45-75) Lymphocytes % (Manual) 9 % (20-45) L Monocytes % (Manual) 15 % (1-10) H Eosinophils % (Manual) 0 % (0-3) Basophils % (Manual) 0 % (0-2) Band Neutrophils 5 % (0-8) Nucleated Red Blood Cells 2 /100 WBC Platelet Estimate Decreased L Platelet Morphology Normal Hypochromasia 2+ Anisocytosis 2+ Microcytosis 1+ Arterial Blood pH 7.334 (7.350-7.450) Arterial Blood Partial Pressure CO2 40.2 mmHg (35.0-45.0) Arterial Blood Partial Pressure O2 104.0 mmHg (75.0-100.0) H Arterial Blood HCO3 20.9 mmol/L (22.0-26.0) L Arterial Blood Oxygen Saturation 96.8 % (95-100) Arterial Blood Base Excess -4.6 (-2-2) L Kelvin Test Positive Sodium Level 145 MMOL/L (136-145) Potassium Level 4.1 MMOL/L (3.5-5.1) Chloride Level 109 MMOL/L (98-107) H Carbon Dioxide Level 22 MMOL/L (21-32) Anion Gap 14 mmol/L (5-15) Blood Urea Nitrogen 101 mg/dL (7-18) H Creatinine 5.3 MG/DL (0.55-1.30) H Estimat Glomerular Filtration Rate 9.8 mL/min (>60) Glucose Level 102 MG/DL (74-106) Calcium Level 7.9 MG/DL (8.5-10.1) L Phosphorus Level 7.5 MG/DL (2.5-4.9) H Magnesium Level 2.2 MG/DL (1.8-2.4) Total Bilirubin 0.5 MG/DL (0.2-1.0) Aspartate Amino Transf (AST/SGOT) 75 U/L (15-37) H Alanine Aminotransferase (ALT/SGPT) 28 U/L (12-78) Alkaline Phosphatase 136 U/L (46-116) H Total Creatine Kinase 1891 U/L (26-308) H Total Protein 5.4 G/DL (6.4-8.2) L Albumin 1.8 G/DL (3.4-5.0) L Globulin 3.6 g/dL Albumin/Globulin Ratio 0.5 (1.0-2.7) L Random Vancomycin Level 18.7 ug/mL Plan Problems: (1) Sepsis Assessment & Plan: Patient admitted identified to have sepsis leukocytosis tachycardia abnormal labs lactic acidosis. Chest x-ray reviewed. Imaging noted. Micro noted. Intensive care unit on support appreciate ICU care Nutritional optimization IV fluids IV antibiotics as per infectious disease tube feeds once stable will follow with recommendations thank you for letting participate patient's care Urosepsis on abx DAILY ESTIMATED NEEDS: Needs based on Critical care, sepsis 75.8kg adj 20-28 kcals/kg [id number] total kcals 1.25-1.5 g protein/kg 95-152 g total protein 25-30 mL/kg 0942-4994 total fluid mLs NUTRITION DIAGNOSIS: Swallowing difficulty r/t respiratory status as evidenced by pt orally intubated, ICU status. CURRENT TF:NPO ENTERAL NUTRITION RECOMMENDATIONS: VITAL AF 1.2 @55ml/hr x24 hrs to provide 1320ml, 1584 kcal, 99g pro, 1071ml free H2O - As medically able, rec non oral feeds. Start VITAL 1.2 @low rate 15ml/hr x6 hrs, advance as tolerated 10ml/hr q4-6 hrs to goal. - Flush per MD/ HOB over 30 degrees -> IF POTASSIUM REMAINS ELEVATED-> Rec NEPRO w/ goal rate of 40ml/hr for 24 hrs to provide 960ml, 1728 kcal, 78g pro, 698ml free H2O. -> Feed w/ hemodynamic stability. ADDITIONAL RECOMMENDATIONS: 1) Maintain calibrated bed scale wts (248lbs vs 217lbs last adm) 2) F/up w/ WC eval. NPO at this time 3) Monitor lytes, need for renal formula 4) Feed when hemodynamically stable -> trophic feeds w/ low BP to maintain gut integrity (2) Sacral decubitus ulcer Assessment & Plan: Patient identified to have a sacral deep tissue injury upon admission Currently intensive care unit on support Care plan initiated (3) Ventral incisional hernia Assessment & Plan: History of colon resection colostomy Ventral incisional hernia reducible No acute invention monitor Julian Iglesias Mar 29, 2020 14:17
--- NOTE | 2020-03-29 16:01 | NUR ---
NURSE NOTES: Pt turned and repositioned.ADLs done, mouth care done.HOB elevated to prevent aspiration.Seen by Dr Crooks awaiting new orders.Call light within easy reach. HR 155 at this time.
[2020-03-29] MEDS: Morphine Sulfate 2mg/ml Inj(IV/IM USE ONLY) IVP PRN (16:04)
[2020-03-29] MEDS: Cefepime HCl 1 GM in D5W 55 ML IVPB SCH (16:11)
--- NOTE | 2020-03-29 17:44 | NUR ---
NURSE NOTES: Dr Crooks made aware of HR 157 with order to restart Cardizem drip 10mg.Order noted and carried out
[2020-03-29] MEDS: dilTIAZem Premix 125mg/125ml 125 ML IVPB SCH (18:19)
--- NOTE | 2020-03-29 18:56 | Infectious Diseases Prog Note ---
Assessment/Plan Assessment/Plan ASSESSMENT AND PLAN: 1. uti, sepsis, fevers, a.flutter, respiratory failure, atx, dony, + ua - vancomycin, cefepime, flagyl - f/u on cultures - covid-19 testing negative x 2 - monitor labs and chest x-ray 2. Respiratory failure, on vent. 3. Renal failure. 4. Diabetes. 5. Hypertension. 6. Diabetes and hypertension, treatment per primary care team. 7. Patient with history of altered mental status. 8. Seizure history. 9. Chronic neck pain. 10. Acute kidney injury and renal failure. 11. Allergies to lisinopril. 12. Social history is negative. 13. Family history is noncontributory. 14. MAR was noted. 15. Case was discussed with RN. 16. ICU care. 17. Skin care. 18. Continue treatment per primary consultants. Subjective Constitutional: Reports: fever, other - on vent, no pressors HEENT: Reports: congestion Respiratory: Reports: shortness of breath Cardiovascular: Reports: other - no pressors Gastrointestinal/Abdominal: Denies: nausea, vomiting, diarrhea Genitourinary: Reports: other - + weiss Neurologic: Reports: weakness, other - lethargic Psychiatric: Reports: other - NA Skin: Denies: rash Musculoskeletal: Reports: other - NA Allergies: Coded Allergies: LISINOPRIL (Verified Allergy, Unknown, Hives, 04/12/14) Objective Vital Signs Last 24 Hour Vital Signs Date Time Temp Pulse Resp B/P (MAP) Pulse Ox O2 Delivery O2 Flow Rate FiO2 03/29/20 18:00 156 18 101/59 (73) 100 03/29/20 17:00 155 18 103/61 (75) 100 03/29/20 16:34 98.8 03/29/20 16:00 30 03/29/20 16:00 Mechanical Ventilator 03/29/20 16:00 155 18 102/60 (74) 100 03/29/20 16:00 155 03/29/20 15:59 107/72 03/29/20 15:00 100 18 112/63 (79) 100 03/29/20 15:00 102 20 30 03/29/20 14:00 87 18 109/54 (72) 100 03/29/20 13:00 98.8 91 18 108/61 (77) 100 03/29/20 12:00 Mechanical Ventilator 03/29/20 12:00 88 03/29/20 12:00 87 18 110/64 (79) 100 03/29/20 12:00 30 03/29/20 11:00 88 18 100/57 (71) 100 03/29/20 11:00 89 19 30 03/29/20 10:00 87 16 105/63 (77) 100 03/29/20 09:19 101 101/67 03/29/20 09:00 102 18 114/70 (85) 100 03/29/20 08:00 30 03/29/20 08:00 98.3 99 18 109/91 (97) 100 03/29/20 08:00 Mechanical Ventilator 03/29/20 08:00 102 03/29/20 07:00 107 19 119/65 (83) 100 03/29/20 07:00 97 18 30 03/29/20 06:04 119 18 03/29/20 06:00 101 18 116/62 (80) 100 03/29/20 05:30 99 17 123/69 (87) 100 03/29/20 05:15 96 19 120/68 (85) 100 03/29/20 05:00 95 18 126/68 (87) 100 03/29/20 04:15 106 19 118/67 (84) 100 03/29/20 04:00 30 03/29/20 04:00 103 03/29/20 04:00 Mechanical Ventilator 03/29/20 04:00 98.9 106 18 115/54 (74) 100 03/29/20 03:45 106 17 114/51 (72) 100 03/29/20 03:30 106 18 103/56 (72) 100 03/29/20 03:15 104 18 102/47 (65) 100 03/29/20 03:00 103 18 30 03/29/20 03:00 100 18 103/55 (71) 100 03/29/20 02:30 93 18 113/67 (82) 100 03/29/20 02:00 97 16 110/64 (79) 100 03/29/20 01:45 93 16 122/72 (89) 100 03/29/20 01:30 97 18 107/63 (78) 100 03/29/20 01:00 95 113/68 (83) 100 03/29/20 00:30 94 122/68 (86) 100 03/29/20 00:15 95 124/66 (85) 100 03/29/20 00:00 95 03/29/20 00:00 30 03/29/20 00:00 Mechanical Ventilator 03/29/20 00:00 99.0 96 126/68 (87) 100 03/28/20 23:30 98 20 132/66 (88) 100 03/28/20 23:15 98 20 128/72 (90) 100 03/28/20 23:00 101 20 125/67 (86) 100 03/28/20 22:57 96 20 30 03/28/20 22:45 99 20 127/79 (95) 100 03/28/20 22:30 99 20 132/76 (94) 100 03/28/20 22:15 100 20 130/67 (88) 100 03/28/20 22:00 98 20 126/71 (89) 100 03/28/20 21:00 101 20 125/65 (85) 100 03/28/20 20:30 104 17 121/59 (79) 100 03/28/20 20:01 96 142/71 03/28/20 20:00 98.5 100 18 113/62 (79) 100 03/28/20 20:00 102 03/28/20 20:00 30 03/28/20 20:00 Mechanical Ventilator 03/28/20 19:30 99 18 121/65 (83) 100 03/28/20 19:30 96 18 30 03/28/20 19:00 97 18 135/67 (89) 100 Height (Feet): 5 Height (Inches): 6.00 Weight (Pounds): 249 General Appearance: no acute distress HEENT: normocephalic, atraumatic, anicteric, mucous membranes moist Respiratory/Chest: lungs clear, rhonchi - bilaterally, other - on vent Cardiovascular: regular rhythm, no gallop/murmur, tachycardia Abdomen: normal bowel sounds, soft, non tender, no organomegaly, non distended Genitourinary: other - + weiss Extremities: no cyanosis Skin: no rash Neurologic/Psychiatric: responsive Lymphatic: no neck adenopathy Musculoskeletal: no effusion Objective Chest x-ray - 03/29/20 - Procedure: XRAY Chest 1v Indication: Shortness of breath Technique: One view of the chest Comparison: 03/28/2020 post PICC radiograph Findings: Stable satisfactory positions of endotracheal tube, orogastric tube, left arm PICC. There is some increased atelectasis at the right lung base. There is minimal left basilar atelectasis as well. The heart size is normal. Impression: Increased right basilar atelectasis. 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, findings as noted Microbiology Date/Time Source Procedure Growth Status 03/26/20 19:15 Blood Blood Culture - Preliminary NO GROWTH AFTER 48 HOURS Resulted 03/26/20 19:05 Blood Blood Culture - Preliminary NO GROWTH AFTER 48 HOURS Resulted 03/27/20 16:30 Nasopharynx SARS-CoV-2 RdRp Gene Assay - Final Complete 03/26/20 21:15 Nasopharynx Coronavirus COVID-19 PCR ([facility]) - Final Complete 03/28/20 18:30 Urine,Catheterized Urine Culture - Preliminary NO GROWTH Resulted Laboratory Tests Test 03/28/20 20:35 03/28/20 20:37 03/28/20 23:00 03/29/20 04:00 Sodium Level 145 MMOL/L (136-145) 145 MMOL/L (136-145) Potassium Level 4.5 MMOL/L (3.5-5.1) 4.1 MMOL/L (3.5-5.1) Chloride Level 109 MMOL/L (98-107) H 109 MMOL/L (98-107) H Carbon Dioxide Level 21 MMOL/L (21-32) 22 MMOL/L (21-32) Anion Gap 15 mmol/L (5-15) 14 mmol/L (5-15) Blood Urea Nitrogen 101 mg/dL (7-18) H 101 mg/dL (7-18) H Creatinine 5.4 MG/DL (0.55-1.30) H 5.3 MG/DL (0.55-1.30) H Estimat Glomerular Filtration Rate 9.6 mL/min (>60) 9.8 mL/min (>60) Glucose Level 113 MG/DL (74-106) H 102 MG/DL (74-106) Calcium Level 7.9 MG/DL (8.5-10.1) L 7.9 MG/DL (8.5-10.1) L Arterial Blood pH 7.330 (7.350-7.450) 7.334 (7.350-7.450) Arterial Blood Partial Pressure CO2 38.0 mmHg (35.0-45.0) 40.2 mmHg (35.0-45.0) Arterial Blood Partial Pressure O2 100.5 mmHg (75.0-100.0) H 104.0 mmHg (75.0-100.0) H Arterial Blood HCO3 19.6 mmol/L (22.0-26.0) L 20.9 mmol/L (22.0-26.0) L Arterial Blood Oxygen Saturation 96.6 % (95-100) 96.8 % (95-100) Arterial Blood Base Excess -5.8 (-2-2) L -4.6 (-2-2) L Kelvin Test Positive Positive Activated Partial Thromboplast Time 80 SEC (23-33) H 88 SEC (23-33) H White Blood Count 10.5 K/UL (4.8-10.8) Red Blood Count 3.49 M/UL (4.20-5.40) L Hemoglobin 9.1 G/DL (12.0-16.0) L Hematocrit 27.5 % (37.0-47.0) L Mean Corpuscular Volume 79 FL (80-99) L Mean Corpuscular Hemoglobin 26.1 PG (27.0-31.0) L Mean Corpuscular Hemoglobin Concent 33.1 G/DL (32.0-36.0) Red Cell Distribution Width 18.5 % (11.6-14.8) H Platelet Count 146 K/UL (150-450) L Mean Platelet Volume 6.7 FL (6.5-10.1) Neutrophils (%) (Auto) % (45.0-75.0) Lymphocytes (%) (Auto) % (20.0-45.0) Monocytes (%) (Auto) % (1.0-10.0) Eosinophils (%) (Auto) % (0.0-3.0) Basophils (%) (Auto) % (0.0-2.0) Differential Total Cells Counted 100 Neutrophils % (Manual) 71 % (45-75) Lymphocytes % (Manual) 9 % (20-45) L Monocytes % (Manual) 15 % (1-10) H Eosinophils % (Manual) 0 % (0-3) Basophils % (Manual) 0 % (0-2) Band Neutrophils 5 % (0-8) Nucleated Red Blood Cells 2 /100 WBC Platelet Estimate Decreased L Platelet Morphology Normal Hypochromasia 2+ Anisocytosis 2+ Microcytosis 1+ Phosphorus Level 7.5 MG/DL (2.5-4.9) H Magnesium Level 2.2 MG/DL (1.8-2.4) Total Bilirubin 0.5 MG/DL (0.2-1.0) Aspartate Amino Transf (AST/SGOT) 75 U/L (15-37) H Alanine Aminotransferase (ALT/SGPT) 28 U/L (12-78) Alkaline Phosphatase 136 U/L (46-116) H Total Creatine Kinase 1891 U/L (26-308) H Total Protein 5.4 G/DL (6.4-8.2) L Albumin 1.8 G/DL (3.4-5.0) L Globulin 3.6 g/dL Albumin/Globulin Ratio 0.5 (1.0-2.7) L Test 03/29/20 11:05 Random Vancomycin Level 18.7 ug/mL Current Medications Medications (Trade) Dose Ordered Sig/Debbie Route PRN Reason Start Time Stop Time Status Last Admin Dose Admin Acetaminophen (Tylenol) 650 mg Q4H PRN ORAL Mild Pain (Pain Scale 1-3) 03/26/20 21:15 04/25/20 21:14 Acetaminophen (Tylenol) 650 mg Q4H PRN ORAL Temp >100.5 03/26/20 21:15 04/25/20 21:14 Al Hydroxide/Mg Hydroxide (Mylanta II) 30 ml Q6H PRN ORAL dyspepsia 03/26/20 21:15 04/25/20 21:14 Bisacodyl (Dulcolax) 10 mg HSPRN PRN RECTAL Constipation 03/26/20 21:15 06/24/20 21:14 Cefepime HCl 1 gm/ Dextrose 55 ml @ 110 mls/hr Q24H IVPB 03/28/20 15:00 04/04/20 14:59 03/29/20 16:11 Chlorhexidine Gluconate (Laurie-Hex 2%) 1 applic DAILY@2000 TOPIC 03/28/20 20:00 06/26/20 19:59 03/28/20 20:01 Dextrose (Dextrose 50%) 25 ml Q30M PRN IV Hypoglycemia 03/26/20 21:15 06/24/20 21:14 Dextrose (Dextrose 50%) 50 ml Q30M PRN IV Hypoglycemia 03/26/20 21:15 06/24/20 21:14 Diltiazem HCl 125 ml @ 0 mls/hr Q24H IVPB 03/29/20 18:15 03/30/20 18:14 03/29/20 18:19 Diphenhydramine HCl (Benadryl) 25 mg Q6H PRN ORAL Itching/Pruritis 03/26/20 21:15 04/25/20 21:14 Docusate Sodium (Colace) 100 mg EVERY 12 HOURS ORAL 03/27/20 09:00 04/26/20 08:59 03/29/20 09:19 Gabapentin (Neurontin) 300 mg BEDTIME ORAL 03/27/20 21:00 04/26/20 20:59 03/28/20 20:01 Heparin Sodium/ Dextrose 500 ml @ 40.5 mls/hr ADJUST PER PROTOCOL IV 03/28/20 16:22 04/27/20 16:21 03/29/20 06:00 Lorazepam (Ativan 2mg/ml 1ml) 0.5 mg Q4H PRN IV For Anxiety 03/26/20 21:15 04/02/20 21:14 Magnesium Hydroxide (Mom) 30 ml HSPRN PRN ORAL Constipation 03/26/20 21:15 04/25/20 21:14 Metoclopramide HCl (Reglan) 10 mg Q6H PRN IVP Nausea & Vomiting 03/26/20 21:15 04/25/20 21:14 Metoprolol Tartrate (Lopressor) 100 mg EVERY 12 HOURS ORAL 03/27/20 09:00 06/25/20 08:59 03/29/20 09:19 Metronidazole 100 ml @ 100 mls/hr Q8HR IVPB 03/27/20 22:00 04/03/20 21:59 03/29/20 13:13 Morphine Sulfate (Morphine Sulfate) 2 mg Q4H PRN IVP Moderate Pain (Pain Scale 4-6) 03/26/20 21:15 04/02/20 21:14 03/29/20 16:04 Morphine Sulfate (Morphine Sulfate) 4 mg Q4H PRN IVP Severe Pain (Pain Scale 7-10) 03/26/20 21:15 04/02/20 21:14 Norepinephrine Bitartrate 4 mg/ Dextrose 250 ml @ 0 mls/hr Q24H IV 03/28/20 16:00 04/27/20 15:59 Ondansetron HCl (Zofran) 4 mg Q6H PRN IVP Nausea & Vomiting 03/26/20 21:15 04/25/20 21:14 Polyethylene Glycol (Miralax) 17 gm HSPRN PRN ORAL Constipation 03/26/20 21:15 04/25/20 21:14 Sevelamer Carbonate (Renvela) 800 mg THREE TIMES A DAY NG 03/29/20 09:00 06/27/20 08:59 03/29/20 18:19 Temazepam (Restoril) 15 mg HSPRN PRN ORAL Insomnia 03/26/20 21:15 04/02/20 21:14 Vancomycin HCl (Vanco pharmacy to dose) 1 ea DAILY PRN MISC Per rx protocol 03/27/20 20:15 04/26/20 20:14 Vancomycin HCl 1 gm/Dextrose 275 ml @ 183.708 mls/hr ONCE ONCE IVPB 03/29/20 20:00 03/29/20 21:29 Jose Valdes MD Mar 29, 2020 18:56
--- NOTE | 2020-03-29 19:08 | NUR ---
HAND-OFF: Report given to Raza Juan.
[2020-03-29] MEDS: Dyna-Hex 2% Top Sol 2oz TOPIC SCH (19:50)
[2020-03-29] MEDS ORDERED: Vancomycin 1gm/D5W 275ml IVPB ONE ×2 (20:00)
--- NOTE | 2020-03-29 20:00 | NUR ---
NURSE NOTES: Afebrile at this time. SVT on the monitor 165, patient on cardizem gtt, just gave scheduled 100mg PO Metropolol Remains on heparin gtt. No bleeding noted. Oral care performed. Lavaged and suctioned. Patient responsive to some command, slightly lethargic. Repositioned patient.
--- NOTE | 2020-03-29 22:00 | NUR ---
NURSE NOTES: Repositioned patient, afebrile, Afib on the monitor, 98-120s, remains on Cardizem gtt at 10mg/hr. Blood pressure stable. IV lines patent and intact. NAD at this time. Will continue to monitor.
[2020-03-30] VITALS (34 sets, daily range): BP systolic 105–133; BP diastolic 53–84
--- NOTE | 2020-03-30 00:16 | NUR ---
NURSE NOTES: Repositioned and oral care performed, afebrile at 98.9F. Remais afib in the 120s with stable blood pressure. Cardizem gtt at 10mg/hr. Lavaged and suctioned patient. Heels kept offloaded. Will continue to monitor.
--- NOTE | 2020-03-30 01:00 | NUR ---
NURSE NOTES: Patient converted to NSR, pulses present. HR now is 83 NSR. Good BP parameters.
--- NOTE | 2020-03-30 01:00 | NUR ---
NURSE NOTES: Patient converted to NSR. HR is 81 NSR, BP 114/71. Decreased Cardizem gtt to 5mg/hr.
--- NOTE | 2020-03-30 02:00 | NUR ---
NURSE NOTES: Repositioned patient, kept arms elevated, heels off loaded. HR remains in NSR, current HR is 82 NSR, BP is 119/69. Saturating 100%, while on 30% FiO2. Patient isn't under any form of distress at this time, FLACC score is 0/10. Afebrile, cool to touch. Orally suctioned. Cardizem remains at 5mg/hr, Heparin gtt ongoing, no signs of bleeding. Low urine output. Breathing pattern regular.
--- NOTE | 2020-03-30 04:00 | NUR ---
NURSE NOTES: Sponge bath given, oral care performed, Desai care performed, PICC line dressing remains dry and intact. AM labs drawn along with timed PTT and sent to lab. Cardizem at 5mg/hr, heparin gtt remains at same rate, no signs of bleeding . Patient continues to be in NSR, blood pressure within normal parameters. Regular breathing pattern, no signs of distress. DC'd restraints. Safety measures remain in place.
[2020-03-30] MEDS: dilTIAZem Premix 125mg/125ml 125 ML IVPB SCH (05:31)
[2020-03-30 05:52] LABS: BASOPHILS % (AUTO) 0.3 % (0.0-2.0); EOSINOPHILS % (AUTO) 1.5 % (0.0-3.0); HEMATOCRIT 30.3 % (37.0-47.0); HEMOGLOBIN 9.5 G/DL (12.0-16.0); LYMPHOCYTES % (AUTO) 5.9 % (20.0-45.0); MEAN CORPUSCULAR VOLUME 84 FL (80-99); MONOCYTES % (AUTO) 8.6 % (1.0-10.0); NEUTROPHILS % (AUTO) 83.7 % (45.0-75.0); PLATELET COUNT 177 K/UL (150-450); RED CELL DISTRIBUTION WIDTH 18.4 % (11.6-14.8); WHITE BLOOD COUNT 15.9 K/UL (4.8-10.8)
[2020-03-30 05:59] LABS: ANION GAP 18 mmol/L (5-15); BLOOD UREA NITROGEN 105 mg/dL (7-18); CALCIUM 7.8 MG/DL (8.5-10.1); CARBON DIOXIDE 21 MMOL/L (21-32); CHLORIDE 108 MMOL/L (98-107); CREATININE 4.5 MG/DL (0.55-1.30); POTASSIUM 4.3 MMOL/L (3.5-5.1); SODIUM 147 MMOL/L (136-145)
[2020-03-30 06:13] LABS: ALANINE AMINOTRANSFERASE 19 U/L (12-78); ALBUMIN 1.8 G/DL (3.4-5.0); ALBUMIN/GLOBULIN RATIO 0.6 (1.0-2.7); ALKALINE PHOSPHATASE 163 U/L (46-116); ASPARTATE AMINO TRANSFERASE 67 U/L (15-37); BILIRUBIN,TOTAL 0.8 MG/DL (0.2-1.0); CREATINE KINASE 1052 U/L (26-308)
[2020-03-30] MEDS: Heparin 25,000u/D5W 500ml 500 ML IV SCH ×2 (06:37→18:59)
--- NOTE | 2020-03-30 07:00 | NUR ---
HAND-OFF: Report given to Alexandria ARCOS.
--- NOTE | 2020-03-30 07:14 | NUR ---
NURSE NOTES: Report received from JOSSELYN Brown. Patient asleep when received, easily arousal to tactile stimuli.Afebrile at this time, NSR on the monitor with HR at 91.Orally intubated AC 18 VT 500 FIO2 30%, Peep 5 , mouth care done and suctioned asd tolerated.Colostomy in place , skin pink and bulging abdomen soft to touch left lower quadrant.with no output.Sacral DTI , on P200 mattress for skin management.Turned and repositioned.ANY picc running heparin drip at 18 units/hr and Cardizem drip at 5mg/hr.Will continue same care plan. Patient able to self repositioned, call light within easy reach.
--- NOTE | 2020-03-30 07:55 | NUR ---
NURSE NOTES: Patient was seen by Dr Torres made aware patient has not had any output from colostomy, NPO status, no new orders at this time.
[2020-03-30] MEDS: Metoprolol Tartrate 100mg tab ORAL SCH ×2 (08:15→20:11)
[2020-03-30] MEDS: Docusate 100mg/10ml Liq NG SCH ×2 (08:15→20:11)
[2020-03-30] MEDS: Renvela 800mg Pkt NG SCH ×3 (08:15→17:30)
--- NOTE | 2020-03-30 08:24 | NUR ---
NURSE NOTES: cereal supervisor ( Dorothea) notified the family via phone - spoke with Evelyn Nicolas and made aware that patient is currently being coded at this time Addendum: 03/30/20 at 0931 by CHLOE OLSEN RN RN Wrong entry / wrong patient
[2020-03-30] MEDS: Morphine Sulfate 2mg/ml Inj(IV/IM USE ONLY) IVP PRN ×3 (09:13→18:57)
--- NOTE | 2020-03-30 09:31 | NUR ---
NURSE NOTES: Pt turned and repositioned, mouth care done and suctioned as tolerated.Remains on Cardizem drip at 5mg/hr and Heparin drip 18 units per hours. No significant change in condition at this time. Failed weaning trial and will continue close monitoring.Patient failed weaning trial will follow up with Dr Cordova. Addendum: 03/30/20 at 0949 by Alexandria Block RN pt seen by Dr Cordova, new order to change AC to 12 and continue with weaning trial
--- NOTE | 2020-03-30 10:12 | NUR ---
NURSE NOTES: Pt placed started on weaning protocol CPAP PS 8 at 30% and Peep 5.Tolerate well,will continue close monitoring.Turned and repositioned.Mouth care done,HOB elevated to prevent aspiration. Call light within easy reach.
--- NOTE | 2020-03-30 11:24 | Pulmonology Progress Note ---
Subjective ROS Limited/Unobtainable: No Interval Events: Intubated; no new events Constitutional: Reports: fever, other - on vent, no pressors HEENT: Repors: no symptoms Respiratory: Reports: no symptoms Cardiovascular: Reports: no symptoms Gastrointestinal/Abdominal: Denies: nausea, vomiting, diarrhea Psychiatric: Reports: other - NA Skin: Denies: rash Musculoskeletal: Reports: other - NA Allergies: Coded Allergies: LISINOPRIL (Verified Allergy, Unknown, Hives, 04/12/14) Objective Last 24 Hour Vital Signs Date Time Temp Pulse Resp B/P (MAP) Pulse Ox O2 Delivery O2 Flow Rate FiO2 03/30/20 10:44 82 17 30 03/30/20 09:55 79 17 30 03/30/20 09:43 98.3 03/30/20 09:00 89 18 119/54 (75) 100 03/30/20 08:15 87 131/76 03/30/20 08:00 30 03/30/20 08:00 99 03/30/20 08:00 Mechanical Ventilator 03/30/20 08:00 92 20 133/63 (86) 100 03/30/20 07:00 91 21 30 03/30/20 07:00 98.3 87 16 131/65 (87) 100 03/30/20 05:00 84 17 129/64 (85) 100 03/30/20 04:45 86 16 130/61 (84) 100 03/30/20 04:30 87 17 131/65 (87) 100 03/30/20 04:15 88 18 128/67 (87) 100 03/30/20 04:00 Mechanical Ventilator 03/30/20 04:00 30 03/30/20 04:00 82 03/30/20 04:00 97.9 83 18 129/68 (88) 100 03/30/20 03:45 84 18 128/68 (88) 100 03/30/20 03:30 82 18 126/63 (84) 100 03/30/20 03:15 80 18 121/63 (82) 100 03/30/20 03:01 86 24 30 03/30/20 03:00 81 18 105/73 (84) 100 03/30/20 02:45 81 17 118/64 (82) 100 03/30/20 02:30 79 18 119/66 (83) 100 03/30/20 02:15 79 16 117/71 (86) 100 03/30/20 02:00 82 17 114/72 (86) 100 03/30/20 01:45 81 15 119/66 (83) 100 03/30/20 01:30 82 21 124/65 (84) 100 03/30/20 01:00 95 18 112/65 (81) 100 03/30/20 00:00 101 03/30/20 00:00 30 03/30/20 00:00 Mechanical Ventilator 03/30/20 00:00 115 18 116/69 (85) 100 03/29/20 23:45 107 17 119/76 (90) 100 03/29/20 23:30 104 18 109/71 (84) 100 03/29/20 23:06 101 22 30 03/29/20 23:00 102 18 115/72 (86) 100 03/29/20 22:30 105 14 109/70 (83) 100 03/29/20 22:00 110 12 115/69 (84) 100 03/29/20 21:30 114 10 115/67 (83) 100 03/29/20 21:00 117 18 115/68 (84) 100 03/29/20 20:30 161 20 109/70 (83) 100 03/29/20 20:00 160 03/29/20 20:00 30 03/29/20 20:00 99.0 164 13 122/69 (86) 100 03/29/20 20:00 Mechanical Ventilator 03/29/20 19:50 165 108/68 03/29/20 19:30 165 15 105/70 (82) 100 03/29/20 19:15 165 19 108/68 (81) 100 03/29/20 19:10 165 20 30 03/29/20 19:00 166 19 106/67 (80) 100 03/29/20 18:45 157 22 97/60 (72) 100 03/29/20 18:30 157 22 100/58 (72) 100 03/29/20 18:00 156 18 101/59 (73) 100 03/29/20 17:00 155 18 103/61 (75) 100 03/29/20 16:00 30 03/29/20 16:00 Mechanical Ventilator 03/29/20 16:00 155 18 102/60 (74) 100 03/29/20 16:00 155 03/29/20 15:59 107/72 03/29/20 15:00 100 18 112/63 (79) 100 03/29/20 15:00 102 20 30 03/29/20 14:00 87 18 109/54 (72) 100 03/29/20 13:00 98.8 91 18 108/61 (77) 100 03/29/20 12:00 Mechanical Ventilator 03/29/20 12:00 88 03/29/20 12:00 87 18 110/64 (79) 100 03/29/20 12:00 30 Intake and Output 03/29/20 03/30/20 19:00 07:00 Intake Total 810.0 ml 1140.5 ml Output Total 520 ml 380 ml Balance 290.0 ml 760.5 ml Intake Free Water 200 ml IV Total 610.0 ml 1140.5 ml Output Urine Total 510 ml 380 ml Stool Total 10 ml 0 ml General Appearance: no acute distress HEENT: normocephalic Respiratory: chest wall non-tender, lungs clear Cardiovascular: normal peripheral pulses, normal rate Abdomen: normal bowel sounds Microbiology Date/Time Source Procedure Growth Status 03/27/20 19:15 Nasal Nares MRSA Culture - Final NO METHICILLIN RESISTANT STAPH AUREUS... Complete 03/27/20 16:30 Nasopharynx SARS-CoV-2 RdRp Gene Assay - Final Complete 03/28/20 18:30 Urine,Catheterized Urine Culture - Final NO GROWTH AFTER 48 HOURS Complete Laboratory Tests 03/30/20 04:00: White Blood Count 15.9#H, Red Blood Count 3.60L, Hemoglobin 9.5L, Hematocrit 30.3L, Mean Corpuscular Volume 84, Mean Corpuscular Hemoglobin 26.5L, Mean Corpuscular Hemoglobin Concent 31.5L, Red Cell Distribution Width 18.4H, Platelet Count 177, Mean Platelet Volume 8.3, Neutrophils (%) (Auto) 83.7H, Lymphocytes (%) (Auto) 5.9L, Monocytes (%) (Auto) 8.6, Eosinophils (%) (Auto) 1.5, Basophils (%) (Auto) 0.3, Activated Partial Thromboplast Time 92H, Sodium Level 147H, Potassium Level 4.3, Chloride Level 108H, Carbon Dioxide Level 21, Anion Gap 18H, Blood Urea Nitrogen 105H, Creatinine 4.5H, Estimat Glomerular Filtration Rate 11.8, Glucose Level 86, Calcium Level 7.8L, Total Bilirubin 0.8 , Aspartate Amino Transf (AST/SGOT) 67H, Alanine Aminotransferase (ALT/SGPT) 19 , Alkaline Phosphatase 163H, Total Creatine Kinase 1052H, Total Protein 5.0L, Albumin 1.8L, Globulin 3.2, Albumin/Globulin Ratio 0.6L Current Medications Medications (Trade) Dose Ordered Sig/Debbie Route PRN Reason Start Time Stop Time Status Last Admin Dose Admin Acetaminophen (Tylenol) 650 mg Q4H PRN ORAL Mild Pain (Pain Scale 1-3) 03/26/20 21:15 04/25/20 21:14 Acetaminophen (Tylenol) 650 mg Q4H PRN ORAL Temp >100.5 03/26/20 21:15 04/25/20 21:14 Al Hydroxide/Mg Hydroxide (Mylanta II) 30 ml Q6H PRN ORAL dyspepsia 03/26/20 21:15 04/25/20 21:14 Bisacodyl (Dulcolax) 10 mg HSPRN PRN RECTAL Constipation 03/26/20 21:15 06/24/20 21:14 Cefepime HCl 1 gm/ Dextrose 55 ml @ 110 mls/hr Q24H IVPB 03/28/20 15:00 04/04/20 14:59 03/29/20 16:11 Chlorhexidine Gluconate (Laurie-Hex 2%) 1 applic DAILY@2000 TOPIC 03/28/20 20:00 06/26/20 19:59 03/29/20 19:50 Dextrose (Dextrose 50%) 25 ml Q30M PRN IV Hypoglycemia 03/26/20 21:15 06/24/20 21:14 Dextrose (Dextrose 50%) 50 ml Q30M PRN IV Hypoglycemia 03/26/20 21:15 06/24/20 21:14 Diltiazem HCl 125 ml @ 0 mls/hr Q24H IVPB 03/29/20 18:15 03/30/20 18:14 03/30/20 05:31 Diphenhydramine HCl (Benadryl) 25 mg Q6H PRN ORAL Itching/Pruritis 03/26/20 21:15 04/25/20 21:14 Docusate Sodium (Colace) 100 mg Q12HR NG 03/30/20 09:00 04/29/20 08:59 03/30/20 08:15 Gabapentin (Neurontin) 300 mg BEDTIME ORAL 03/27/20 21:00 04/26/20 20:59 03/29/20 19:50 Heparin Sodium/ Dextrose 500 ml @ 40.5 mls/hr ADJUST PER PROTOCOL IV 03/28/20 16:22 04/27/20 16:21 03/30/20 06:37 Lorazepam (Ativan 2mg/ml 1ml) 0.5 mg Q4H PRN IV For Anxiety 03/26/20 21:15 04/02/20 21:14 Magnesium Hydroxide (Mom) 30 ml HSPRN PRN ORAL Constipation 03/26/20 21:15 04/25/20 21:14 Metoclopramide HCl (Reglan) 10 mg Q6H PRN IVP Nausea & Vomiting 03/26/20 21:15 04/25/20 21:14 Metoprolol Tartrate (Lopressor) 100 mg EVERY 12 HOURS ORAL 03/27/20 09:00 06/25/20 08:59 03/30/20 08:15 Metronidazole 100 ml @ 100 mls/hr Q8HR IVPB 03/27/20 22:00 04/03/20 21:59 03/30/20 05:31 Morphine Sulfate (Morphine Sulfate) 2 mg Q4H PRN IVP Moderate Pain (Pain Scale 4-6) 03/26/20 21:15 04/02/20 21:14 03/30/20 09:13 Morphine Sulfate (Morphine Sulfate) 4 mg Q4H PRN IVP Severe Pain (Pain Scale 7-10) 03/26/20 21:15 04/02/20 21:14 Norepinephrine Bitartrate 4 mg/ Dextrose 250 ml @ 0 mls/hr Q24H IV 03/28/20 16:00 04/27/20 15:59 Ondansetron HCl (Zofran) 4 mg Q6H PRN IVP Nausea & Vomiting 03/26/20 21:15 04/25/20 21:14 Polyethylene Glycol (Miralax) 17 gm HSPRN PRN ORAL Constipation 03/26/20 21:15 04/25/20 21:14 Sevelamer Carbonate (Renvela) 800 mg THREE TIMES A DAY NG 03/29/20 09:00 06/27/20 08:59 03/30/20 08:15 Temazepam (Restoril) 15 mg HSPRN PRN ORAL Insomnia 03/26/20 21:15 04/02/20 21:14 Vancomycin HCl (Vanco pharmacy to dose) 1 ea DAILY PRN MISC Per rx protocol 03/27/20 20:15 04/26/20 20:14 Assessment/Plan Assessment/Plan IMPRESSION: 1. Hyperkalemia. Corrected 2. Sinus tachycardia. 3. Sepsis 4. Hypertension. 5. Seizure disorder. 6. Acute renal failure. 7. Respiratory failure DISCUSSION: Continue ICU care Correction of electrolytes Now on 30% FiO2 Weaning in progress Abx Seven Yao Omar Syed MD Mar 30, 2020 11:24
--- NOTE | 2020-03-30 12:18 | NUR ---
NURSE NOTES: Pt remains on CPAP PS 8 at 30% and Peep 5 and tolerate well.Turned and repositioned,HOB elevated to prevent aspiration.Mouth care done and suctioned as tolerated.No significant change in condition.Will continue to monitor
--- NOTE | 2020-03-30 13:17 | Cardiology Progress Note ---
Assessment/Plan Status: stable Assessment/Plan Assessment/Plan Problem List: (1) Atrial flutter ICD Codes: I48.92 - Unspecified atrial flutter SNOMED: 0899617 (2) Hypertension ICD Codes: I10 - Essential (primary) hypertension SNOMED: 08718721 (3) Hyperkalemia ICD Codes: E87.5 - Hyperkalemia SNOMED: 96722934 (4) Acute encephalopathy ICD Codes: G93.40 - Encephalopathy, unspecified SNOMED: 3360011 (5) Acute and chronic respiratory failure with hypoxia ICD Codes: J96.21 - Acute and chronic respiratory failure with hypoxia SNOMED: 29689347, 447441774 (6) VENTURA (acute kidney injury) ICD Codes: N17.9 - Acute kidney failure, unspecified SNOMED: 6748517, 90007029 Status: deteriorating AFIB -Rate controlled -No indication for cardioversion at this time -Metoprolol 100 mg BID -Can not use amiodarone given elevated LFTs -Can not use digoxin given elevated creatinine -Heparin gtt -> transition to NOAC -Echocardiogram with normal LV function Elevated BNP -CXR clear -Echocardiogram normal LV function -No signs of LV fluid overload, wll monitor right sided filling pressures -Hold diuresis for now given VENTURA/CKD/Rhabdo -IV fluids for sepsis and hypotension -Wean cardizem -Continue heparin gtt Critical care 40 minutes Subjective Cardiovascular: Reports: no symptoms Respiratory: Reports: no symptoms Gastrointestinal/Abdominal: Reports: no symptoms Genitourinary: Reports: no symptoms Subjective Being weaned 30% Remains on cardizem 5 mg heart rates stable No bleeding on heparin Objective Last 24 Hour Vital Signs Date Time Temp Pulse Resp B/P (MAP) Pulse Ox O2 Delivery O2 Flow Rate FiO2 03/30/20 12:00 98.2 91 13 122/59 (80) 96 03/30/20 12:00 30 03/30/20 12:00 Mechanical Ventilator 03/30/20 11:00 84 16 116/55 (75) 97 03/30/20 10:44 82 17 30 03/30/20 10:00 79 15 111/57 (75) 98 03/30/20 09:55 79 17 30 03/30/20 09:43 98.3 03/30/20 09:00 89 18 119/54 (75) 100 03/30/20 08:15 87 131/76 03/30/20 08:00 30 03/30/20 08:00 99 03/30/20 08:00 Mechanical Ventilator 03/30/20 08:00 92 20 133/63 (86) 100 03/30/20 07:00 91 21 30 03/30/20 07:00 98.3 87 16 131/65 (87) 100 03/30/20 05:00 84 17 129/64 (85) 100 03/30/20 04:45 86 16 130/61 (84) 100 03/30/20 04:30 87 17 131/65 (87) 100 03/30/20 04:15 88 18 128/67 (87) 100 03/30/20 04:00 Mechanical Ventilator 03/30/20 04:00 30 03/30/20 04:00 82 03/30/20 04:00 97.9 83 18 129/68 (88) 100 03/30/20 03:45 84 18 128/68 (88) 100 03/30/20 03:30 82 18 126/63 (84) 100 03/30/20 03:15 80 18 121/63 (82) 100 03/30/20 03:01 86 24 30 03/30/20 03:00 81 18 105/73 (84) 100 03/30/20 02:45 81 17 118/64 (82) 100 03/30/20 02:30 79 18 119/66 (83) 100 03/30/20 02:15 79 16 117/71 (86) 100 03/30/20 02:00 82 17 114/72 (86) 100 03/30/20 01:45 81 15 119/66 (83) 100 03/30/20 01:30 82 21 124/65 (84) 100 03/30/20 01:00 95 18 112/65 (81) 100 03/30/20 00:00 101 03/30/20 00:00 30 03/30/20 00:00 Mechanical Ventilator 03/30/20 00:00 115 18 116/69 (85) 100 03/29/20 23:45 107 17 119/76 (90) 100 03/29/20 23:30 104 18 109/71 (84) 100 03/29/20 23:06 101 22 30 03/29/20 23:00 102 18 115/72 (86) 100 03/29/20 22:30 105 14 109/70 (83) 100 03/29/20 22:00 110 12 115/69 (84) 100 03/29/20 21:30 114 10 115/67 (83) 100 03/29/20 21:00 117 18 115/68 (84) 100 03/29/20 20:30 161 20 109/70 (83) 100 03/29/20 20:00 160 03/29/20 20:00 30 03/29/20 20:00 99.0 164 13 122/69 (86) 100 03/29/20 20:00 Mechanical Ventilator 03/29/20 19:50 165 108/68 03/29/20 19:30 165 15 105/70 (82) 100 03/29/20 19:15 165 19 108/68 (81) 100 03/29/20 19:10 165 20 30 03/29/20 19:00 166 19 106/67 (80) 100 03/29/20 18:45 157 22 97/60 (72) 100 03/29/20 18:30 157 22 100/58 (72) 100 03/29/20 18:00 156 18 101/59 (73) 100 03/29/20 17:00 155 18 103/61 (75) 100 03/29/20 16:00 30 03/29/20 16:00 Mechanical Ventilator 03/29/20 16:00 155 18 102/60 (74) 100 03/29/20 16:00 155 03/29/20 15:59 107/72 03/29/20 15:00 100 18 112/63 (79) 100 03/29/20 15:00 102 20 30 03/29/20 14:00 87 18 109/54 (72) 100 General Appearance: no apparent distress, alert EENT: PERRL/EOMI, normal ENT inspection, TMs normal, pharynx normal Neck: non-tender, normal alignment, supple, normal inspection Rhythm: NSR Cardiovascular: normal peripheral pulses, normal rate, regular rhythm Respiratory/Chest: chest wall non-tender, lungs clear, normal breath sounds Abdomen: normal bowel sounds, non tender, soft Extremities: normal range of motion, non-tender, normal inspection, no calf tenderness, no swelling 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, no motor/sensory deficits Intake and Output 03/29/20 03/30/20 18:59 06:59 Intake Total 941.0 ml 905.0 ml Output Total 520 ml 350 ml Balance 421.0 ml 555.0 ml Intake Free Water 200 ml IV Total 741.0 ml 905.0 ml Output Urine Total 510 ml 350 ml Stool Total 10 ml Laboratory Tests Test 03/30/20 04:00 White Blood Count 15.9 K/UL (4.8-10.8) #H Red Blood Count 3.60 M/UL (4.20-5.40) L Hemoglobin 9.5 G/DL (12.0-16.0) L Hematocrit 30.3 % (37.0-47.0) L Mean Corpuscular Volume 84 FL (80-99) Mean Corpuscular Hemoglobin 26.5 PG (27.0-31.0) L Mean Corpuscular Hemoglobin Concent 31.5 G/DL (32.0-36.0) L Red Cell Distribution Width 18.4 % (11.6-14.8) H Platelet Count 177 K/UL (150-450) Mean Platelet Volume 8.3 FL (6.5-10.1) Neutrophils (%) (Auto) 83.7 % (45.0-75.0) H Lymphocytes (%) (Auto) 5.9 % (20.0-45.0) L Monocytes (%) (Auto) 8.6 % (1.0-10.0) Eosinophils (%) (Auto) 1.5 % (0.0-3.0) Basophils (%) (Auto) 0.3 % (0.0-2.0) Activated Partial Thromboplast Time 92 SEC (23-33) H Sodium Level 147 MMOL/L (136-145) H Potassium Level 4.3 MMOL/L (3.5-5.1) Chloride Level 108 MMOL/L (98-107) H Carbon Dioxide Level 21 MMOL/L (21-32) Anion Gap 18 mmol/L (5-15) H Blood Urea Nitrogen 105 mg/dL (7-18) H Creatinine 4.5 MG/DL (0.55-1.30) H Estimat Glomerular Filtration Rate 11.8 mL/min (>60) Glucose Level 86 MG/DL (74-106) Calcium Level 7.8 MG/DL (8.5-10.1) L Total Bilirubin 0.8 MG/DL (0.2-1.0) Aspartate Amino Transf (AST/SGOT) 67 U/L (15-37) H Alanine Aminotransferase (ALT/SGPT) 19 U/L (12-78) Alkaline Phosphatase 163 U/L (46-116) H Total Creatine Kinase 1052 U/L (26-308) H Total Protein 5.0 G/DL (6.4-8.2) L Albumin 1.8 G/DL (3.4-5.0) L Globulin 3.2 g/dL Albumin/Globulin Ratio 0.6 (1.0-2.7) L Microbiology Date/Time Source Procedure Growth Status 03/27/20 19:15 Nasal Nares MRSA Culture - Final NO METHICILLIN RESISTANT STAPH AUREUS... Complete 03/27/20 16:30 Nasopharynx SARS-CoV-2 RdRp Gene Assay - Final Complete 03/28/20 18:30 Urine,Catheterized Urine Culture - Final NO GROWTH AFTER 48 HOURS Complete 03/27/20 19:15 Rectum - Final NO CARBAPENEM-RESISTANT ENTEROBACTERI... Complete 03/27/20 19:15 Rectum VRE Culture - Final Complete Rafat Crooks MD Mar 30, 2020 13:17
--- NOTE | 2020-03-30 14:02 | NUR ---
NURSE NOTES: Pt asleep with no acute distress,turned and repositioned.Mouth care done, HOB elevated to prevent aspiration.Call light within easy reach.Will continue same care plan
[2020-03-30] MEDS: Cefepime HCl 1 GM in D5W 55 ML IVPB SCH (14:11)
--- NOTE | 2020-03-30 14:34 | Nephrology Progress Note ---
Assessment/Plan Plan #VENTURA due to ATN in the setting of rhabdo- on CKD #hyperkalemia #Rhabdo #UTI sepsis #Lactic acidsis #AMS - toxic metabolic encephalopathy #Hypoxemic resp failure #afib with RVR #HLD #Obesity - no acute indication for HD - monitor UOP - resume 1/2NS at 50cc/hr -Hr better controlled -phos high -will add sevelamer - metop per Cardiology - monitor K,bmp - will discuss need for HD if no improvement with hydration - weiss placed - strict I&Os - vent management per Dr. Cordova - cardiology eval - 2d echo - ID consult - vanco and cefepime - follow cx - monitor BMP, mag and phos daily 30 minutes of critical care time- greater than 50% on care coordination and counseling Subjective ROS Limited/Unobtainable: Yes Subjective Cr slowly downtrending remains intubated Hr better controlled sodium uptrending Objective Objective Last 24 Hour Vital Signs Date Time Temp Pulse Resp B/P (MAP) Pulse Ox O2 Delivery O2 Flow Rate FiO2 03/30/20 12:00 98.2 91 13 122/59 (80) 96 03/30/20 12:00 30 03/30/20 12:00 Mechanical Ventilator 03/30/20 11:00 84 16 116/55 (75) 97 03/30/20 10:44 82 17 30 03/30/20 10:00 79 15 111/57 (75) 98 03/30/20 09:55 79 17 30 03/30/20 09:43 98.3 03/30/20 09:00 89 18 119/54 (75) 100 03/30/20 08:15 87 131/76 03/30/20 08:00 30 03/30/20 08:00 99 03/30/20 08:00 Mechanical Ventilator 03/30/20 08:00 92 20 133/63 (86) 100 03/30/20 07:00 91 21 30 03/30/20 07:00 98.3 87 16 131/65 (87) 100 03/30/20 05:00 84 17 129/64 (85) 100 03/30/20 04:45 86 16 130/61 (84) 100 03/30/20 04:30 87 17 131/65 (87) 100 03/30/20 04:15 88 18 128/67 (87) 100 03/30/20 04:00 Mechanical Ventilator 03/30/20 04:00 30 03/30/20 04:00 82 03/30/20 04:00 97.9 83 18 129/68 (88) 100 03/30/20 03:45 84 18 128/68 (88) 100 03/30/20 03:30 82 18 126/63 (84) 100 03/30/20 03:15 80 18 121/63 (82) 100 03/30/20 03:01 86 24 30 03/30/20 03:00 81 18 105/73 (84) 100 03/30/20 02:45 81 17 118/64 (82) 100 03/30/20 02:30 79 18 119/66 (83) 100 03/30/20 02:15 79 16 117/71 (86) 100 03/30/20 02:00 82 17 114/72 (86) 100 03/30/20 01:45 81 15 119/66 (83) 100 03/30/20 01:30 82 21 124/65 (84) 100 03/30/20 01:00 95 18 112/65 (81) 100 03/30/20 00:00 101 03/30/20 00:00 30 03/30/20 00:00 Mechanical Ventilator 03/30/20 00:00 115 18 116/69 (85) 100 03/29/20 23:45 107 17 119/76 (90) 100 03/29/20 23:30 104 18 109/71 (84) 100 03/29/20 23:06 101 22 30 03/29/20 23:00 102 18 115/72 (86) 100 03/29/20 22:30 105 14 109/70 (83) 100 03/29/20 22:00 110 12 115/69 (84) 100 03/29/20 21:30 114 10 115/67 (83) 100 03/29/20 21:00 117 18 115/68 (84) 100 03/29/20 20:30 161 20 109/70 (83) 100 03/29/20 20:00 160 03/29/20 20:00 30 03/29/20 20:00 99.0 164 13 122/69 (86) 100 03/29/20 20:00 Mechanical Ventilator 03/29/20 19:50 165 108/68 6/11/20 19:30 165 15 105/70 (82) 100 03/29/20 19:15 165 19 108/68 (81) 100 03/29/20 19:10 165 20 30 03/29/20 19:00 166 19 106/67 (80) 100 03/29/20 18:45 157 22 97/60 (72) 100 03/29/20 18:30 157 22 100/58 (72) 100 03/29/20 18:00 156 18 101/59 (73) 100 03/29/20 17:00 155 18 103/61 (75) 100 03/29/20 16:00 30 03/29/20 16:00 Mechanical Ventilator 03/29/20 16:00 155 18 102/60 (74) 100 03/29/20 16:00 155 03/29/20 15:59 107/72 03/29/20 15:00 100 18 112/63 (79) 100 03/29/20 15:00 102 20 30 Intake and Output 03/29/20 03/30/20 19:00 07:00 Intake Total 810.0 ml 1140.5 ml Output Total 520 ml 380 ml Balance 290.0 ml 760.5 ml Intake Free Water 200 ml IV Total 610.0 ml 1140.5 ml Output Urine Total 510 ml 380 ml Stool Total 10 ml 0 ml Laboratory Tests 03/30/20 04:00: White Blood Count 15.9#H, Red Blood Count 3.60L, Hemoglobin 9.5L, Hematocrit 30.3L, Mean Corpuscular Volume 84, Mean Corpuscular Hemoglobin 26.5L, Mean Corpuscular Hemoglobin Concent 31.5L, Red Cell Distribution Width 18.4H, Platelet Count 177, Mean Platelet Volume 8.3, Neutrophils (%) (Auto) 83.7H, Lymphocytes (%) (Auto) 5.9L, Monocytes (%) (Auto) 8.6, Eosinophils (%) (Auto) 1.5, Basophils (%) (Auto) 0.3, Activated Partial Thromboplast Time 92H, Sodium Level 147H, Potassium Level 4.3, Chloride Level 108H, Carbon Dioxide Level 21, Anion Gap 18H, Blood Urea Nitrogen 105H, Creatinine 4.5H, Estimat Glomerular Filtration Rate 11.8, Glucose Level 86, Calcium Level 7.8L, Total Bilirubin 0.8 , Aspartate Amino Transf (AST/SGOT) 67H, Alanine Aminotransferase (ALT/SGPT) 19 , Alkaline Phosphatase 163H, Total Creatine Kinase 1052H, Total Protein 5.0L, Albumin 1.8L, Globulin 3.2, Albumin/Globulin Ratio 0.6L Height (Feet): 5 Height (Inches): 6.00 Weight (Pounds): 249 Objective General Appearance: other - intubated Lines, tubes and drains: peripheral HEENT: normocephalic, atraumatic Neck: non-tender, normal alignment, supple Respiratory/Chest: lungs clear Cardiovascular/Chest: normal peripheral pulses, tachycardia, irregularly irregular Abdomen: soft Skin Exam: normal pigmentation Neurologic: disoriented Venkat Montes M.D. Mar 30, 2020 14:34
--- NOTE | 2020-03-30 14:38 | NUR ---
CASE MANAGEMENT: REVIEW 02/28/2020 SI:VENTURA due to ATN in the setting of rhabdo- on CKD. 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
--- NOTE | 2020-03-30 15:20 | NUR ---
NURSE NOTES: Patient was placed back on AC mode breathing at 30bpm.Turned and repositioned, mouth care done.HOB elevated to prevent aspiration.No significant change in condition.Will continue same care plan.
--- NOTE | 2020-03-30 15:20 | General Progress Note ---
Assessment/Plan Problem List: (1) Atrial flutter ICD Codes: I48.92 - Unspecified atrial flutter SNOMED: 1224066 (2) Hypertension ICD Codes: I10 - Essential (primary) hypertension SNOMED: 13102161 (3) Hyperkalemia ICD Codes: E87.5 - Hyperkalemia SNOMED: 91004396 (4) Acute encephalopathy ICD Codes: G93.40 - Encephalopathy, unspecified SNOMED: 3054672 (5) Acute and chronic respiratory failure with hypoxia ICD Codes: J96.21 - Acute and chronic respiratory failure with hypoxia SNOMED: 19159130, 974360167 (6) VENTURA (acute kidney injury) ICD Codes: N17.9 - Acute kidney failure, unspecified SNOMED: 3056825, 29596138 Status: stable Assessment/Plan: Ms. Hayward is a 69 year old female with unknown history, presenting with AMS, weaknses, found to have rhabdo, VENTURA, a fib RVR then later was intubated for hypoxia/stridor. #Acute hypoxic respiratory failure #Acute toxometabolic encephalopathy -Intubated in the ED (03/27 -) -pulm/ICU consulted. appreciate recs. -continue ventilator therapy, currently on minimal settings. -no sedation onboard, but appears comfortable. -daily SBT per pulm. -Tube feed, nutrition consult ordered. has OG tube. #A fib RVR - resolved #Elevated BNP #?CHF -s/p multiple doses of MTP in the ED. -cardiology consulted. appreciate recs. -MTP 100 BID, per cards. -amio, digoxin contraindicated given elevated LFTs and renal failure, respectively. #rhabdomyolosis - improving. -CK >25215 on presentation. -s/p IVF boluses in ED. continue IVF. -check CK daily #VENTURA #Hyperkalemia #Anion gap metabolic acidosis -worsening renal fx. HyperK resolved. -nephrology on board. May need HD, not indicated at this time. -Na bicarb for acidosis -trend BMP -IVF per nephro. #Sepsis -BCx NGTD -UA ordered in ED but nevev collected. will obtain again. -continue cefepime,flagyl,vanc (03/27 -) -f/u cultures. UA dirty, UCx, BCx pending. Time spent on encounter, 45 minutes, 30 mins spent on critical care, which includes telemetry review, lab data review, interpretation, radiology image review, interpretation, ventilator setting review, management, ABG interpretation, discussion with ICU team, nursing staff, consulting services. Time of note doesn't reflect time of encounter. Subjective Date patient seen: Mar 30, 2020 ROS Limited/Unobtainable: Yes - intubated, unable to provide ROS Allergies: Coded Allergies: LISINOPRIL (Verified Allergy, Unknown, Hives, 04/12/14) Subjective intubated, nonverbal. arousable to voice. trying to write something on a piece of paper but was too weak to write anything legible. reports pain. Objective Last 24 Hour Vital Signs Date Time Temp Pulse Resp B/P (MAP) Pulse Ox O2 Delivery O2 Flow Rate FiO2 03/30/20 12:00 98.2 91 13 122/59 (80) 96 03/30/20 12:00 30 03/30/20 12:00 Mechanical Ventilator 03/30/20 11:00 84 16 116/55 (75) 97 03/30/20 10:44 82 17 30 03/30/20 10:00 79 15 111/57 (75) 98 03/30/20 09:55 79 17 30 03/30/20 09:43 98.3 03/30/20 09:00 89 18 119/54 (75) 100 03/30/20 08:15 87 131/76 03/30/20 08:00 30 03/30/20 08:00 99 03/30/20 08:00 Mechanical Ventilator 03/30/20 08:00 92 20 133/63 (86) 100 03/30/20 07:00 91 21 30 03/30/20 07:00 98.3 87 16 131/65 (87) 100 03/30/20 05:00 84 17 129/64 (85) 100 03/30/20 04:45 86 16 130/61 (84) 100 03/30/20 04:30 87 17 131/65 (87) 100 03/30/20 04:15 88 18 128/67 (87) 100 03/30/20 04:00 Mechanical Ventilator 03/30/20 04:00 30 03/30/20 04:00 82 03/30/20 04:00 97.9 83 18 129/68 (88) 100 03/30/20 03:45 84 18 128/68 (88) 100 03/30/20 03:30 82 18 126/63 (84) 100 03/30/20 03:15 80 18 121/63 (82) 100 03/30/20 03:01 86 24 30 03/30/20 03:00 81 18 105/73 (84) 100 03/30/20 02:45 81 17 118/64 (82) 100 03/30/20 02:30 79 18 119/66 (83) 100 03/30/20 02:15 79 16 117/71 (86) 100 03/30/20 02:00 82 17 114/72 (86) 100 03/30/20 01:45 81 15 119/66 (83) 100 03/30/20 01:30 82 21 124/65 (84) 100 03/30/20 01:00 95 18 112/65 (81) 100 03/30/20 00:00 101 03/30/20 00:00 30 03/30/20 00:00 Mechanical Ventilator 03/30/20 00:00 115 18 116/69 (85) 100 03/29/20 23:45 107 17 119/76 (90) 100 03/29/20 23:30 104 18 109/71 (84) 100 03/29/20 23:06 101 22 30 03/29/20 23:00 102 18 115/72 (86) 100 03/29/20 22:30 105 14 109/70 (83) 100 03/29/20 22:00 110 12 115/69 (84) 100 03/29/20 21:30 114 10 115/67 (83) 100 03/29/20 21:00 117 18 115/68 (84) 100 03/29/20 20:30 161 20 109/70 (83) 100 03/29/20 20:00 160 03/29/20 20:00 30 03/29/20 20:00 99.0 164 13 122/69 (86) 100 03/29/20 20:00 Mechanical Ventilator 03/29/20 19:50 165 108/68 03/29/20 19:30 165 15 105/70 (82) 100 03/29/20 19:15 165 19 108/68 (81) 100 03/29/20 19:10 165 20 30 03/29/20 19:00 166 19 106/67 (80) 100 03/29/20 18:45 157 22 97/60 (72) 100 03/29/20 18:30 157 22 100/58 (72) 100 03/29/20 18:00 156 18 101/59 (73) 100 03/29/20 17:00 155 18 103/61 (75) 100 03/29/20 16:00 30 03/29/20 16:00 Mechanical Ventilator 03/29/20 16:00 155 18 102/60 (74) 100 03/29/20 16:00 155 03/29/20 15:59 107/72 Intake and Output 03/29/20 03/30/20 19:00 07:00 Intake Total 810.0 ml 1140.5 ml Output Total 520 ml 380 ml Balance 290.0 ml 760.5 ml Intake Free Water 200 ml IV Total 610.0 ml 1140.5 ml Output Urine Total 510 ml 380 ml Stool Total 10 ml 0 ml Laboratory Tests 03/30/20 04:00: White Blood Count 15.9#H, Red Blood Count 3.60L, Hemoglobin 9.5L, Hematocrit 30.3L, Mean Corpuscular Volume 84, Mean Corpuscular Hemoglobin 26.5L, Mean Corpuscular Hemoglobin Concent 31.5L, Red Cell Distribution Width 18.4H, Platelet Count 177, Mean Platelet Volume 8.3, Neutrophils (%) (Auto) 83.7H, Lymphocytes (%) (Auto) 5.9L, Monocytes (%) (Auto) 8.6, Eosinophils (%) (Auto) 1.5, Basophils (%) (Auto) 0.3, Activated Partial Thromboplast Time 92H, Sodium Level 147H, Potassium Level 4.3, Chloride Level 108H, Carbon Dioxide Level 21, Anion Gap 18H, Blood Urea Nitrogen 105H, Creatinine 4.5H, Estimat Glomerular Filtration Rate 11.8, Glucose Level 86, Calcium Level 7.8L, Total Bilirubin 0.8 , Aspartate Amino Transf (AST/SGOT) 67H, Alanine Aminotransferase (ALT/SGPT) 19 , Alkaline Phosphatase 163H, Total Creatine Kinase 1052H, Total Protein 5.0L, Albumin 1.8L, Globulin 3.2, Albumin/Globulin Ratio 0.6L Height (Feet): 5 Height (Inches): 6.00 Weight (Pounds): 249 General Appearance: no apparent distress EENT: PERRL/EOMI Cardiovascular: normal rate, regular rhythm Respiratory/Chest: lungs clear, normal breath sounds Abdomen: non tender, soft Neurologic: alert, oriented x 3 Ousmane Torres MD Mar 30, 2020 15:20
--- NOTE | 2020-03-30 15:53 | Surgery Progress Note ---
Surgery Progress Note Subjective Additional Comments Respiratory improved CPAP minimal settings Heparin drip labs noted Objective Last 24 Hour Vital Signs Date Time Temp Pulse Resp B/P (MAP) Pulse Ox O2 Delivery O2 Flow Rate FiO2 03/30/20 15:43 150/64 03/30/20 15:05 82 21 30 03/30/20 14:53 99.3 03/30/20 12:00 98.2 91 13 122/59 (80) 96 03/30/20 12:00 30 03/30/20 12:00 Mechanical Ventilator 03/30/20 11:00 84 16 116/55 (75) 97 03/30/20 10:44 82 17 30 03/30/20 10:00 79 15 111/57 (75) 98 03/30/20 09:55 79 17 30 03/30/20 09:00 89 18 119/54 (75) 100 03/30/20 08:15 87 131/76 03/30/20 08:00 30 03/30/20 08:00 99 03/30/20 08:00 Mechanical Ventilator 03/30/20 08:00 92 20 133/63 (86) 100 03/30/20 07:00 91 21 30 03/30/20 07:00 98.3 87 16 131/65 (87) 100 03/30/20 05:00 84 17 129/64 (85) 100 03/30/20 04:45 86 16 130/61 (84) 100 03/30/20 04:30 87 17 131/65 (87) 100 03/30/20 04:15 88 18 128/67 (87) 100 03/30/20 04:00 Mechanical Ventilator 03/30/20 04:00 30 03/30/20 04:00 82 03/30/20 04:00 97.9 83 18 129/68 (88) 100 03/30/20 03:45 84 18 128/68 (88) 100 03/30/20 03:30 82 18 126/63 (84) 100 03/30/20 03:15 80 18 121/63 (82) 100 03/30/20 03:01 86 24 30 03/30/20 03:00 81 18 105/73 (84) 100 03/30/20 02:45 81 17 118/64 (82) 100 03/30/20 02:30 79 18 119/66 (83) 100 03/30/20 02:15 79 16 117/71 (86) 100 03/30/20 02:00 82 17 114/72 (86) 100 03/30/20 01:45 81 15 119/66 (83) 100 03/30/20 01:30 82 21 124/65 (84) 100 03/30/20 01:00 95 18 112/65 (81) 100 03/30/20 00:00 101 03/30/20 00:00 30 03/30/20 00:00 Mechanical Ventilator 03/30/20 00:00 115 18 116/69 (85) 100 03/29/20 23:45 107 17 119/76 (90) 100 03/29/20 23:30 104 18 109/71 (84) 100 03/29/20 23:06 101 22 30 03/29/20 23:00 102 18 115/72 (86) 100 03/29/20 22:30 105 14 109/70 (83) 100 03/29/20 22:00 110 12 115/69 (84) 100 03/29/20 21:30 114 10 115/67 (83) 100 03/29/20 21:00 117 18 115/68 (84) 100 03/29/20 20:30 161 20 109/70 (83) 100 03/29/20 20:00 160 03/29/20 20:00 30 03/29/20 20:00 99.0 164 13 122/69 (86) 100 03/29/20 20:00 Mechanical Ventilator 03/29/20 19:50 165 108/68 03/29/20 19:30 165 15 105/70 (82) 100 03/29/20 19:15 165 19 108/68 (81) 100 03/29/20 19:10 165 20 30 03/29/20 19:00 166 19 106/67 (80) 100 03/29/20 18:45 157 22 97/60 (72) 100 03/29/20 18:30 157 22 100/58 (72) 100 03/29/20 18:00 156 18 101/59 (73) 100 03/29/20 17:00 155 18 103/61 (75) 100 03/29/20 16:00 30 03/29/20 16:00 Mechanical Ventilator 03/29/20 16:00 155 18 102/60 (74) 100 03/29/20 16:00 155 03/29/20 15:59 107/72 I&O Intake and Output 03/29/20 03/30/20 19:00 07:00 Intake Total 810.0 ml 1140.5 ml Output Total 520 ml 380 ml Balance 290.0 ml 760.5 ml Intake Free Water 200 ml IV Total 610.0 ml 1140.5 ml Output Urine Total 510 ml 380 ml Stool Total 10 ml 0 ml Dressing: other Wound: other Drains: other Cardiovascular: RSR Respiratory: decreased breath sounds Abdomen: soft, non-tender, present bowel sounds Extremities: no cyanosis Laboratory Tests Test 03/30/20 04:00 White Blood Count 15.9 K/UL (4.8-10.8) #H Red Blood Count 3.60 M/UL (4.20-5.40) L Hemoglobin 9.5 G/DL (12.0-16.0) L Hematocrit 30.3 % (37.0-47.0) L Mean Corpuscular Volume 84 FL (80-99) Mean Corpuscular Hemoglobin 26.5 PG (27.0-31.0) L Mean Corpuscular Hemoglobin Concent 31.5 G/DL (32.0-36.0) L Red Cell Distribution Width 18.4 % (11.6-14.8) H Platelet Count 177 K/UL (150-450) Mean Platelet Volume 8.3 FL (6.5-10.1) Neutrophils (%) (Auto) 83.7 % (45.0-75.0) H Lymphocytes (%) (Auto) 5.9 % (20.0-45.0) L Monocytes (%) (Auto) 8.6 % (1.0-10.0) Eosinophils (%) (Auto) 1.5 % (0.0-3.0) Basophils (%) (Auto) 0.3 % (0.0-2.0) Activated Partial Thromboplast Time 92 SEC (23-33) H Sodium Level 147 MMOL/L (136-145) H Potassium Level 4.3 MMOL/L (3.5-5.1) Chloride Level 108 MMOL/L (98-107) H Carbon Dioxide Level 21 MMOL/L (21-32) Anion Gap 18 mmol/L (5-15) H Blood Urea Nitrogen 105 mg/dL (7-18) H Creatinine 4.5 MG/DL (0.55-1.30) H Estimat Glomerular Filtration Rate 11.8 mL/min (>60) Glucose Level 86 MG/DL (74-106) Calcium Level 7.8 MG/DL (8.5-10.1) L Total Bilirubin 0.8 MG/DL (0.2-1.0) Aspartate Amino Transf (AST/SGOT) 67 U/L (15-37) H Alanine Aminotransferase (ALT/SGPT) 19 U/L (12-78) Alkaline Phosphatase 163 U/L (46-116) H Total Creatine Kinase 1052 U/L (26-308) H Total Protein 5.0 G/DL (6.4-8.2) L Albumin 1.8 G/DL (3.4-5.0) L Globulin 3.2 g/dL Albumin/Globulin Ratio 0.6 (1.0-2.7) L Plan Problems: (1) Sepsis Assessment & Plan: Patient admitted identified to have sepsis leukocytosis tachycardia abnormal labs lactic acidosis. Chest x-ray reviewed. Imaging noted. Micro noted. Intensive care unit on support appreciate ICU care Nutritional optimization IV fluids IV antibiotics as per infectious disease tube feeds once stable will follow with recommendations thank you for letting participate patient's care Urosepsis on abx DAILY ESTIMATED NEEDS: Needs based on Critical care, sepsis 75.8kg adj 20-28 kcals/kg 1219-4124 total kcals 1.25-1.5 g protein/kg 95-152 g total protein 25-30 mL/kg 7220-6125 total fluid mLs NUTRITION DIAGNOSIS: Swallowing difficulty r/t respiratory status as evidenced by pt orally intubated, ICU status. CURRENT TF:NPO ENTERAL NUTRITION RECOMMENDATIONS: VITAL AF 1.2 @55ml/hr x24 hrs to provide 1320ml, 1584 kcal, 99g pro, 1071ml free H2O - As medically able, rec non oral feeds. Start VITAL 1.2 @low rate 15ml/hr x6 hrs, advance as tolerated 10ml/hr q4-6 hrs to goal. - Flush per MD/ HOB over 30 degrees -> IF POTASSIUM REMAINS ELEVATED-> Rec NEPRO w/ goal rate of 40ml/hr for 24 hrs to provide 960ml, 1728 kcal, 78g pro, 698ml free H2O. -> Feed w/ hemodynamic stability. ADDITIONAL RECOMMENDATIONS: 1) Maintain calibrated bed scale wts (248lbs vs 217lbs last adm) 2) F/up w/ WC eval. NPO at this time 3) Monitor lytes, need for renal formula 4) Feed when hemodynamically stable -> trophic feeds w/ low BP to maintain gut integrity (2) Sacral decubitus ulcer Assessment & Plan: Patient identified to have a sacral deep tissue injury upon admission Currently intensive care unit on support Care plan initiated (3) Ventral incisional hernia Assessment & Plan: History of colon resection colostomy Ventral incisional hernia reducible No acute invention monitor Julian Iglesias Mar 30, 2020 15:53
--- NOTE | 2020-03-30 16:57 | NUR ---
NURSE NOTES: Spoke with Dr Torres with ok to follow crankshaft grinder consult ,VITAL AF 1.2 @55ml/hr x24 hrs to Start VITAL 1.2 @low rate 15ml/hr x6 hrs, advance as tolerated 10ml/hr q4-6 hrs to goal.
--- NOTE | 2020-03-30 18:22 | NUR ---
NURSE NOTES: Pt turned and repositioned, mouth care performed.Suctioned as tolerated.Feeding tube started and tolerate well.Call light within easy reach.No significant change in condition.Will continue with same plan of care
--- NOTE | 2020-03-30 19:22 | NUR ---
HAND-OFF: Report given to JOSSELYN Mccollum.
--- NOTE | 2020-03-30 19:30 | NUR ---
NURSE NOTES: Received report from JOSSELYN Ibrahim. Pt is resting on the bed and awake and alert. able ti make needs to known. Given realty orientation. Provide communication note. On secured entrance monitor with ST and HR 103's. Pt has ETT #8.0 and orally intubated and setting with Ac: 12, T:500, P:5, FiO2 30% and SaO2 95% noted. Given suction and oral care. Pt has NGT on Rt. nares and started NGT feeding with Vital AF @ 15cc/hr and no residual noted. Pt has colostomy bag and noted hard form small amount brownish BM. Pt has Desai cath and drainage well. Dressing is intact on wound area. Pt has Lt. ET and Lt. upper arm PICC line and dressing is clean and dry and on running with Heparin @ 18u/kg/hr, 1/2 NS @ 50cc/hr and Cardizem drip @ 10cc/hr. No sign of active bleeding. Noted swelling on both leg. Placed fall and seizure precaution. Proper isolation for PUI COVID. Will continue to care plan.
[2020-03-30] MEDS: Dyna-Hex 2% Top Sol 2oz TOPIC SCH (19:55)
--- NOTE | 2020-03-30 20:00 | NUR ---
NURSE NOTES: Pt is resting on the bed and awake and alert. able to needs to know. On library monitor with SR. BP checked 133/53mmHg and HR: 92's. Verified with Dr. Crooks for renewal Cardizem drip and d/c'd order. Will continue to monitor any change of condition.
--- NOTE | 2020-03-30 22:00 | NUR ---
NURSE NOTES: Suction was done. Turn and reposition. SaO2 95% with current Vent setting. Will continue to monitor any change of condition.
[2020-03-31] VITALS (39 sets, daily range): BP systolic 99–169; BP diastolic 54–94
--- NOTE | 2020-03-31 | NUR ---
NURSE NOTES: Pt is resting on the bed and no sign of acute distress noted. SaO2 95% noted with current Vent setting. Suction and oral care was done. No fever noted. On Heparin drip @18u/kg/hr and no sign of active bleeding. Tolerated well NGT feeding. no residual noted. Increase rate to 25cc/hr. Changed position. Will continue to monitor any change of condition.
--- NOTE | 2020-03-31 02:00 | NUR ---
NURSE NOTES: Pt is resting on the bed and no sign of acute distress noted. SaO2 97% with current Vent setting. Suction and oral care was done. Turn and reposition. Placed fall precaution. Will continue to care plan.
[2020-03-31] MEDS: Morphine Sulfate 2mg/ml Inj(IV/IM USE ONLY) IVP PRN ×4 (03:34→20:21)
--- NOTE | 2020-03-31 04:00 | NUR ---
NURSE NOTES: Pt is resting on the bed and awake and alert. Morning care was done. Cleaned Pt and applied lotion and cream. Noted open blister on Lt. shoulder area. Applied skin barrier film and OptiForm. Colostomy area still noted distended and hardened. Noted small amount formed BM. Given suction and oral care. Changed central line dressing. Collected blood sample. Changed position. Will continue to care plan.
[2020-03-31 05:27] LABS: BLOOD UREA NITROGEN 100 mg/dL (7-18); CALCIUM 8.2 MG/DL (8.5-10.1); CARBON DIOXIDE 24 MMOL/L (21-32); CHLORIDE 107 MMOL/L (98-107); PHOSPHORUS 5.9 MG/DL (2.5-4.9); POTASSIUM 2.9 MMOL/L (3.5-5.1); SODIUM 146 MMOL/L (136-145)
--- NOTE | 2020-03-31 05:36 | NUR ---
NURSE NOTES: Noted PTT result 80. Continue to same dose of Heparin drip. Verified pharmacist. Will scheduled next PTT tomorrow @ 4am. Will continue to monitor any change of condition.
--- NOTE | 2020-03-31 06:24 | NUR ---
RD ASSESSMENT & RECOMMENDATIONS SEE CARE ACTIVITY FOR COMPLETE ASSESSMENT DAILY ESTIMATED NEEDS: Needs based on Critical care, sepsis, wound, VENTURA 75.8kg adj 20-28 kcals/kg 8696-8351 total kcals 0.9-1.3 (increase w/ renal improvement) g protein/kg 68-98 g total protein 25-30 mL/kg 5971-1397 total fluid mLs NUTRITION DIAGNOSIS: Swallowing difficulty r/t respiratory status as evidenced by pt orally intubated, on NGT feeds. CURRENT TF:VITAL AF 1.2 @55ml/hr x24 hrs ENTERAL NUTRITION RECOMMENDATIONS: VITAL AF 1.2 @55ml/hr x24 hrs to provide 1320ml, 1584 kcal, 99g pro, 1071ml free H2O - advance as tolerated 10ml/hr q4-6 hrs to goal. - Flush per MD/ HOB over 30 degrees -> IF PHOSPHORUS REMAINS ELEVATED-> Rec NEPRO w/ goal rate of 40ml/hr for 24 hrs to provide 960ml, 1728 kcal, 78g pro, 698ml free H2O. ADDITIONAL RECOMMENDATIONS: 1) Mainain calibrated bed scale wts (248lbs vs 217lbs last adm) 2) Monitor renal fxn and lytes closely, need for renal formula --> Creat trending down, K is now low, phos elev, but trend down 3) Wound healing: ZnSO4 220mg QD x 10 days+ Boris BID via NGT hold vit C until renal fxn improves 4) NISS w/ TF- h/o DM .
--- NOTE | 2020-03-31 06:53 | NUR ---
NURSE NOTES: Noted today K level is 2.9. Notify to Dr. Montes and new order received. Carried out. Will continue to monitor any change of condition.
--- NOTE | 2020-03-31 07:04 | Pulmonology Progress Note ---
Subjective ROS Limited/Unobtainable: Yes Interval Events: Intubated; no new events Constitutional: Reports: fever, other - on vent, no pressors HEENT: Repors: no symptoms Respiratory: Reports: no symptoms Cardiovascular: Reports: no symptoms Gastrointestinal/Abdominal: Denies: nausea, vomiting, diarrhea Psychiatric: Reports: other - NA Skin: Denies: rash Musculoskeletal: Reports: other - NA Allergies: Coded Allergies: LISINOPRIL (Verified Allergy, Unknown, Hives, 04/12/14) Objective Last 24 Hour Vital Signs Date Time Temp Pulse Resp B/P (MAP) Pulse Ox O2 Delivery O2 Flow Rate FiO2 03/31/20 06:30 93 18 03/31/20 06:00 95 24 152/72 (98) 98 03/31/20 05:00 94 26 142/62 (88) 98 03/31/20 04:00 98.2 91 26 110/94 (99) 98 03/31/20 04:00 Mechanical Ventilator 03/31/20 04:00 87 03/31/20 04:00 30 03/31/20 03:11 90 24 30 03/31/20 03:00 88 25 132/78 (96) 98 03/31/20 02:00 85 25 137/58 (84) 97 03/31/20 01:00 86 24 122/71 (88) 98 03/31/20 00:00 30 03/31/20 00:00 Mechanical Ventilator 03/31/20 00:00 85 03/31/20 00:00 99.0 89 27 120/65 (83) 96 03/30/20 23:04 82 26 30 03/30/20 23:00 87 25 129/69 (89) 95 03/30/20 22:00 84 25 126/58 (80) 95 03/30/20 21:00 79 24 124/63 (83) 95 03/30/20 20:11 94 133/54 03/30/20 20:00 91 03/30/20 20:00 30 03/30/20 20:00 97.9 92 26 133/53 (79) 95 03/30/20 20:00 Mechanical Ventilator 03/30/20 19:07 85 26 30 03/30/20 19:00 109 15 129/84 (99) 96 03/30/20 18:00 96 19 122/69 (86) 03/30/20 17:00 94 20 119/67 (84) 99 03/30/20 16:00 Mechanical Ventilator 03/30/20 16:00 98.8 89 20 115/60 (78) 99 03/30/20 16:00 93 03/30/20 16:00 30 03/30/20 15:43 150/64 03/30/20 15:05 82 21 30 03/30/20 15:00 82 23 105/61 (76) 99 03/30/20 14:53 99.3 03/30/20 14:00 101 9 116/54 (74) 97 03/30/20 13:00 92 14 113/53 (73) 96 03/30/20 12:00 90 03/30/20 12:00 98.2 91 13 122/59 (80) 96 03/30/20 12:00 30 03/30/20 12:00 Mechanical Ventilator 03/30/20 11:00 84 16 116/55 (75) 97 03/30/20 10:44 82 17 30 03/30/20 10:00 79 15 111/57 (75) 98 03/30/20 09:55 79 17 30 03/30/20 09:00 89 18 119/54 (75) 100 03/30/20 08:15 87 131/76 03/30/20 08:00 30 03/30/20 08:00 99 03/30/20 08:00 Mechanical Ventilator 03/30/20 08:00 92 20 133/63 (86) 100 Intake and Output 03/30/20 03/31/20 19:00 07:00 Intake Total 1076.0 ml 1059.0 ml Output Total 695 ml 740 ml Balance 381.0 ml 319.0 ml Intake Free Water 200 ml IV Total 846.0 ml 834.0 ml Tube Feeding 30 ml 225 ml Output Urine Total 645 ml 710 ml Stool Total 50 ml 30 ml General Appearance: no acute distress HEENT: normocephalic Respiratory: chest wall non-tender, lungs clear Cardiovascular: normal peripheral pulses, normal rate Abdomen: normal bowel sounds Microbiology Date/Time Source Procedure Growth Status 03/28/20 18:30 Urine,Catheterized Urine Culture - Final NO GROWTH AFTER 48 HOURS Complete Laboratory Tests 03/31/20 04:00: Activated Partial Thromboplast Time 80H, Sodium Level 146H, Potassium Level 2.9L , Chloride Level 107, Carbon Dioxide Level 24, Blood Urea Nitrogen 100H, Creatinine 4.0H, Estimat Glomerular Filtration Rate 13.6, Glucose Level 104, Calcium Level 8.2L, Phosphorus Level 5.9H, Magnesium Level 2.1, Random Vancomycin Level 12.0 Current Medications Medications (Trade) Dose Ordered Sig/Debbie Route PRN Reason Start Time Stop Time Status Last Admin Dose Admin Acetaminophen (Tylenol) 650 mg Q4H PRN ORAL Mild Pain (Pain Scale 1-3) 03/26/20 21:15 04/25/20 21:14 Acetaminophen (Tylenol) 650 mg Q4H PRN ORAL Temp >100.5 03/26/20 21:15 04/25/20 21:14 Al Hydroxide/Mg Hydroxide (Mylanta II) 30 ml Q6H PRN ORAL dyspepsia 03/26/20 21:15 04/25/20 21:14 Bisacodyl (Dulcolax) 10 mg HSPRN PRN RECTAL Constipation 03/26/20 21:15 06/24/20 21:14 Cefepime HCl 1 gm/ Dextrose 55 ml @ 110 mls/hr Q24H IVPB 03/28/20 15:00 04/04/20 14:59 03/30/20 14:11 Chlorhexidine Gluconate (Laurie-Hex 2%) 1 applic DAILY@2000 TOPIC 03/28/20 20:00 06/26/20 19:59 03/30/20 19:55 Dextrose (Dextrose 50%) 25 ml Q30M PRN IV Hypoglycemia 03/26/20 21:15 06/24/20 21:14 Dextrose (Dextrose 50%) 50 ml Q30M PRN IV Hypoglycemia 03/26/20 21:15 06/24/20 21:14 Diphenhydramine HCl (Benadryl) 25 mg Q6H PRN ORAL Itching/Pruritis 03/26/20 21:15 04/25/20 21:14 Docusate Sodium (Colace) 100 mg Q12HR NG 03/30/20 09:00 04/29/20 08:59 03/30/20 20:11 Gabapentin (Neurontin) 300 mg BEDTIME ORAL 03/27/20 21:00 04/26/20 20:59 03/30/20 20:11 Heparin Sodium/ Dextrose 500 ml @ 40.5 mls/hr ADJUST PER PROTOCOL IV 03/28/20 16:22 04/27/20 16:21 03/30/20 18:59 Lorazepam (Ativan 2mg/ml 1ml) 0.5 mg Q4H PRN IV For Anxiety 03/26/20 21:15 04/02/20 21:14 Magnesium Hydroxide (Mom) 30 ml HSPRN PRN ORAL Constipation 03/26/20 21:15 04/25/20 21:14 Metoclopramide HCl (Reglan) 10 mg Q6H PRN IVP Nausea & Vomiting 03/26/20 21:15 04/25/20 21:14 Metoprolol Tartrate (Lopressor) 100 mg EVERY 12 HOURS ORAL 03/27/20 09:00 06/25/20 08:59 03/30/20 20:11 Metronidazole 100 ml @ 100 mls/hr Q8HR IVPB 03/27/20 22:00 04/03/20 21:59 03/31/20 05:16 Morphine Sulfate (Morphine Sulfate) 2 mg Q4H PRN IVP Moderate Pain (Pain Scale 4-6) 03/26/20 21:15 04/02/20 21:14 03/31/20 03:34 Morphine Sulfate (Morphine Sulfate) 4 mg Q4H PRN IVP Severe Pain (Pain Scale 7-10) 03/26/20 21:15 04/02/20 21:14 Norepinephrine Bitartrate 4 mg/ Dextrose 250 ml @ 0 mls/hr Q24H IV 03/28/20 16:00 04/27/20 15:59 Ondansetron HCl (Zofran) 4 mg Q6H PRN IVP Nausea & Vomiting 03/26/20 21:15 04/25/20 21:14 Polyethylene Glycol (Miralax) 17 gm HSPRN PRN ORAL Constipation 03/26/20 21:15 04/25/20 21:14 Potassium Chloride (K-Dur) 40 meq TWICE A DAY ORAL 03/31/20 09:00 03/31/20 23:00 Sevelamer Carbonate (Renvela) 1,600 mg THREE TIMES A DAY NG 03/31/20 09:00 06/27/20 08:59 Sodium Chloride 1,000 ml @ 50 mls/hr Q20H IV 03/30/20 14:45 04/29/20 14:44 03/30/20 16:27 Temazepam (Restoril) 15 mg HSPRN PRN ORAL Insomnia 03/26/20 21:15 04/02/20 21:14 Vancomycin HCl (Vanco pharmacy to dose) 1 ea DAILY PRN MISC Per rx protocol 03/27/20 20:15 04/26/20 20:14 Vancomycin HCl 1 gm/Dextrose 275 ml @ 183.708 mls/hr ONCE ONCE IVPB 03/31/20 08:00 03/31/20 09:29 Assessment/Plan Assessment/Plan IMPRESSION: 1. Hyperkalemia. Corrected 2. Sinus tachycardia. 3. Sepsis 4. Hypertension. 5. Seizure disorder. 6. Acute renal failure. 7. Respiratory failure DISCUSSION: Continue ICU care Correction of electrolytes Now on 30% FiO2 Weaning in progress Abx Seven Yao Omar Syed MD Mar 31, 2020 07:04
--- NOTE | 2020-03-31 07:15 | NUR ---
HAND-OFF: Report given to JOSSELYN Denise. Pt is sleeping on the bed and no sign of acute distress noted.
--- NOTE | 2020-03-31 07:30 | NUR ---
NURSE NOTES: Received report from JOSSELYN Mccollum. Patient is awake, alert, opens eyes spontaneously , able to make needs known. Patient is oriented to name, place, and is able to communicate using pen and paper provided. Patient is orally intubated with ETT 8.0, 26cm on the lipline with vent settings as follows: AC 12, TV 500, FiO2 30% and PEEP 5. SpO2 95-97% at this time. desk monitor shows ST with HR 102bpm. Pulses are palpable on the radial and dorsalis pedis. Patient has NGT on the right nares, Vital AF 1.2 infusing at 25ml/hr. Patient noted to have colostomy on the LLQ, stoma is pink and moist, surrounding area is firm. Colostomy bag intact, small amount of brown liquid stool noted. Patient has PICC line on left upper arm; intact, asymptomatic and patent. Heparin drip infusing at 18units/kg/hr and 1/2 NS infusing at 50ml/hr. Patient has a weiss catheter draining to gravity with yellow urine output noted to have sediments. Patient is afebrile. No distress noted at this time; all needs attended to. Bed is locked, alarmed, and in lowest position, padded side rails up x2, and call light left within reach. Will continue plan of care and will continue to monitor patient.
[2020-03-31] MEDS ORDERED: Vancomycin 1gm/D5W 275ml IVPB ONE ×2 (08:00)
[2020-03-31] MEDS: Renvela 800mg Pkt NG SCH ×3 (08:16→16:54)
[2020-03-31] MEDS: Metoprolol Tartrate 100mg tab ORAL SCH ×2 (08:16→20:21)
[2020-03-31] MEDS: Docusate 100mg/10ml Liq NG SCH ×2 (08:17→20:21)
--- NOTE | 2020-03-31 08:30 | NUR ---
NURSE NOTES: Scheduled medications given to patient. Dr Crooks present at bedside, seen patient, received new orders; noted, entered, and will carry out. Heparin drip discontinued per Dr Crooks's order. Patient also noted to have left EJ 18g IV; intact, patent, and asymptomatic. Oral care provided to patient; turned and shifted patient. PRN morphine given IVP, pt c/o bilateral lower extremities pain and lower back pain 6/10. Will reassess and will continue to monitor.
[2020-03-31] MEDS ORDERED: Vancomycin 1gm/D5W 275ml IVPB SCH ×2 (09:00)
[2020-03-31] MEDS ORDERED: Xarelto 15mg tab ORAL SCH (09:00)
[2020-03-31] MEDS ORDERED: NS 500ML ONE (09:09)
[2020-03-31] MEDS: Xarelto 15mg tab NG SCH (09:38)
--- NOTE | 2020-03-31 10:00 | NUR ---
NURSE NOTES: Patient resting in bed, appears to be sleeping, no s/s of pain/discomfort/distress. VSS on the monitor. 1/2 NS remains infusing at 50ml/hr on left upper arm PICC line. Shifted and turned patient. Will continue to monitor.
--- NOTE | 2020-03-31 12:00 | NUR ---
NURSE NOTES: Patient remains awake, able to follow commands. Remains orally intubated, failed weaning x2 this morning d/t tachypnea. Dr Mahoney present at bedside, updated on patient's condition. Notified regarding patient's colostomy site, firm around the area and bulging, stoma remains pink and moist. Dr Mahoney assessed patient. No new verbal orders received. Patient remains on TF Vital AF at 35ml/hr via NGT on the right nares. Suctioned orally and turned patient for comfort. No s/s of pain/discomfort at this time. Will continue to monitor.
[2020-03-31] MEDS: dilTIAZem HCl 60mg tab NG SCH ×2 (13:12→21:04)
--- NOTE | 2020-03-31 13:13 | Surgery Progress Note ---
Surgery Progress Note Subjective Additional Comments leukocytosis on vent h/h stable ill appearing imaging pending Objective Last 24 Hour Vital Signs Date Time Temp Pulse Resp B/P (MAP) Pulse Ox O2 Delivery O2 Flow Rate FiO2 03/31/20 12:00 109 20 130/63 (85) 94 03/31/20 12:00 Mechanical Ventilator 03/31/20 12:00 90 03/31/20 12:00 30 03/31/20 11:00 91 21 134/72 (92) 96 03/31/20 10:44 89 21 30 03/31/20 10:00 82 18 117/58 (77) 100 03/31/20 09:00 78 18 130/64 (86) 99 03/31/20 08:16 96 156/70 03/31/20 08:00 30 03/31/20 08:00 87 03/31/20 08:00 97.9 96 25 156/70 (98) 97 03/31/20 08:00 Mechanical Ventilator 03/31/20 07:06 100 03/31/20 07:06 93 25 30 03/31/20 07:00 91 23 158/68 (98) 98 03/31/20 06:30 93 18 03/31/20 06:00 95 24 152/72 (98) 98 03/31/20 05:00 94 26 142/62 (88) 98 03/31/20 04:00 98.2 91 26 110/94 (99) 98 03/31/20 04:00 Mechanical Ventilator 03/31/20 04:00 87 03/31/20 04:00 30 03/31/20 03:11 90 24 30 03/31/20 03:00 88 25 132/78 (96) 98 03/31/20 02:00 85 25 137/58 (84) 97 03/31/20 01:00 86 24 122/71 (88) 98 03/31/20 00:00 30 03/31/20 00:00 Mechanical Ventilator 03/31/20 00:00 85 03/31/20 00:00 99.0 89 27 120/65 (83) 96 03/30/20 23:04 82 26 30 03/30/20 23:00 87 25 129/69 (89) 95 03/30/20 22:00 84 25 126/58 (80) 95 03/30/20 21:00 79 24 124/63 (83) 95 03/30/20 20:11 94 133/54 03/30/20 20:00 91 03/30/20 20:00 30 03/30/20 20:00 97.9 92 26 133/53 (79) 95 03/30/20 20:00 Mechanical Ventilator 03/30/20 19:07 85 26 30 03/30/20 19:00 109 15 129/84 (99) 96 03/30/20 18:00 96 19 122/69 (86) 03/30/20 17:00 94 20 119/67 (84) 99 03/30/20 16:00 Mechanical Ventilator 03/30/20 16:00 98.8 89 20 115/60 (78) 99 03/30/20 16:00 93 03/30/20 16:00 30 03/30/20 15:43 150/64 03/30/20 15:05 82 21 30 03/30/20 15:00 82 23 105/61 (76) 99 03/30/20 14:53 99.3 03/30/20 14:00 101 9 116/54 (74) 97 I&O Intake and Output 03/30/20 03/31/20 19:00 07:00 Intake Total 1076.0 ml 1455.5 ml Output Total 695 ml 790 ml Balance 381.0 ml 665.5 ml Intake Free Water 200 ml IV Total 846.0 ml 1205.5 ml Tube Feeding 30 ml 250 ml Output Urine Total 645 ml 760 ml Stool Total 50 ml 30 ml Dressing: saturated Wound: other Drains: other Cardiovascular: RSR Respiratory: decreased breath sounds Abdomen: soft, present bowel sounds Extremities: no cyanosis Laboratory Tests Test 03/31/20 04:00 Activated Partial Thromboplast Time 80 SEC (23-33) H Sodium Level 146 MMOL/L (136-145) H Potassium Level 2.9 MMOL/L (3.5-5.1) L Chloride Level 107 MMOL/L (98-107) Carbon Dioxide Level 24 MMOL/L (21-32) Blood Urea Nitrogen 100 mg/dL (7-18) H Creatinine 4.0 MG/DL (0.55-1.30) H Estimat Glomerular Filtration Rate 13.6 mL/min (>60) Glucose Level 104 MG/DL (74-106) Calcium Level 8.2 MG/DL (8.5-10.1) L Phosphorus Level 5.9 MG/DL (2.5-4.9) H Magnesium Level 2.1 MG/DL (1.8-2.4) Random Vancomycin Level 12.0 ug/mL Plan Problems: (1) Sepsis Assessment & Plan: Patient admitted identified to have sepsis leukocytosis tachycardia abnormal labs lactic acidosis. Chest x-ray reviewed. Imaging noted. Micro noted. Intensive care unit on support appreciate ICU care Nutritional optimization IV fluids IV antibiotics as per infectious disease tube feeds once stable will follow with recommendations thank you for letting participate patient's care Urosepsis on abx DAILY ESTIMATED NEEDS: Needs based on Critical care, sepsis 75.8kg adj 20-28 kcals/kg 0256-2333 total kcals 1.25-1.5 g protein/kg 95-152 g total protein 25-30 mL/kg 2411-8891 total fluid mLs NUTRITION DIAGNOSIS: Swallowing difficulty r/t respiratory status as evidenced by pt orally intubated, ICU status. CURRENT TF:NPO ENTERAL NUTRITION RECOMMENDATIONS: VITAL AF 1.2 @55ml/hr x24 hrs to provide 1320ml, 1584 kcal, 99g pro, 1071ml free H2O - As medically able, rec non oral feeds. Start VITAL 1.2 @low rate 15ml/hr x6 hrs, advance as tolerated 10ml/hr q4-6 hrs to goal. - Flush per MD/ HOB over 30 degrees -> IF POTASSIUM REMAINS ELEVATED-> Rec NEPRO w/ goal rate of 40ml/hr for 24 hrs to provide 960ml, 1728 kcal, 78g pro, 698ml free H2O. -> Feed w/ hemodynamic stability. ADDITIONAL RECOMMENDATIONS: 1) Maintain calibrated bed scale wts (248lbs vs 217lbs last adm) 2) F/up w/ WC eval. NPO at this time 3) Monitor lytes, need for renal formula 4) Feed when hemodynamically stable -> trophic feeds w/ low BP to maintain gut integrity (2) Sacral decubitus ulcer Assessment & Plan: Patient identified to have a sacral deep tissue injury upon admission Currently intensive care unit on support Care plan initiated (3) Ventral incisional hernia Assessment & Plan: History of colon resection colostomy Ventral incisional hernia reducible No acute invention monitor Julian Iglesias Mar 31, 2020 13:13
--- NOTE | 2020-03-31 14:05 | Cardiology Progress Note ---
Assessment/Plan Status: stable, progressing Assessment/Plan Assessment/Plan Problem List: (1) Atrial flutter ICD Codes: I48.92 - Unspecified atrial flutter SNOMED: 8267286 (2) Hypertension ICD Codes: I10 - Essential (primary) hypertension SNOMED: 26990385 (3) Hyperkalemia ICD Codes: E87.5 - Hyperkalemia SNOMED: 48923698 (4) Acute encephalopathy ICD Codes: G93.40 - Encephalopathy, unspecified SNOMED: 3123331 (5) Acute and chronic respiratory failure with hypoxia ICD Codes: J96.21 - Acute and chronic respiratory failure with hypoxia SNOMED: 96960560, 920564640 (6) VENTURA (acute kidney injury) ICD Codes: N17.9 - Acute kidney failure, unspecified SNOMED: 8838085, 49420036 Status: deteriorating AFIB - resolved -D/c cardizem IV -> transition to PO -D/c heparin -Start DOAC xarelto -Echocardiogram with normal LV function Elevated BNP -CXR clear -No signs of LV fluid overload, wll monitor right sided filling pressures -Hold diuresis for now given VENTURA/CKD/Rhabdo -IV fluids for sepsis and hypotension Critical care 40 minutes Subjective Cardiovascular: Reports: no symptoms Respiratory: Reports: no symptoms Gastrointestinal/Abdominal: Reports: no symptoms Genitourinary: Reports: no symptoms Subjective Being weaned 30% Failed SBT this morning but patient alert and conversant Heparin being transitioned to DOAC Remains in normal sinus Cardizem to d/c Objective Last 24 Hour Vital Signs Date Time Temp Pulse Resp B/P (MAP) Pulse Ox O2 Delivery O2 Flow Rate FiO2 03/31/20 13:12 109 121/54 03/31/20 13:00 88 20 106/54 (71) 97 03/31/20 12:00 109 20 130/63 (85) 94 03/31/20 12:00 Mechanical Ventilator 03/31/20 12:00 90 03/31/20 12:00 30 03/31/20 11:00 91 21 134/72 (92) 96 03/31/20 10:44 89 21 30 03/31/20 10:00 82 18 117/58 (77) 100 03/31/20 09:00 78 18 130/64 (86) 99 03/31/20 08:16 96 156/70 03/31/20 08:00 30 03/31/20 08:00 87 03/31/20 08:00 97.9 96 25 156/70 (98) 97 03/31/20 08:00 Mechanical Ventilator 03/31/20 07:06 100 03/31/20 07:06 93 25 30 03/31/20 07:00 91 23 158/68 (98) 98 03/31/20 06:30 93 18 03/31/20 06:00 95 24 152/72 (98) 98 03/31/20 05:00 94 26 142/62 (88) 98 03/31/20 04:00 98.2 91 26 110/94 (99) 98 03/31/20 04:00 Mechanical Ventilator 03/31/20 04:00 87 03/31/20 04:00 30 03/31/20 03:11 90 24 30 03/31/20 03:00 88 25 132/78 (96) 98 03/31/20 02:00 85 25 137/58 (84) 97 03/31/20 01:00 86 24 122/71 (88) 98 03/31/20 00:00 30 03/31/20 00:00 Mechanical Ventilator 03/31/20 00:00 85 03/31/20 00:00 99.0 89 27 120/65 (83) 96 03/30/20 23:04 82 26 30 03/30/20 23:00 87 25 129/69 (89) 95 03/30/20 22:00 84 25 126/58 (80) 95 03/30/20 21:00 79 24 124/63 (83) 95 03/30/20 20:11 94 133/54 03/30/20 20:00 91 03/30/20 20:00 30 03/30/20 20:00 97.9 92 26 133/53 (79) 95 03/30/20 20:00 Mechanical Ventilator 03/30/20 19:07 85 26 30 03/30/20 19:00 109 15 129/84 (99) 96 03/30/20 18:00 96 19 122/69 (86) 03/30/20 17:00 94 20 119/67 (84) 99 03/30/20 16:00 Mechanical Ventilator 03/30/20 16:00 98.8 89 20 115/60 (78) 99 03/30/20 16:00 93 03/30/20 16:00 30 03/30/20 15:43 150/64 03/30/20 15:05 82 21 30 03/30/20 15:00 82 23 105/61 (76) 99 03/30/20 14:53 99.3 General Appearance: no apparent distress, on vent EENT: PERRL/EOMI, normal ENT inspection, TMs normal Neck: non-tender, normal alignment, supple, normal inspection Rhythm: NSR Cardiovascular: normal peripheral pulses, normal rate, regular rhythm Respiratory/Chest: chest wall non-tender, lungs clear, normal breath sounds, no respiratory distress Abdomen: normal bowel sounds, non tender, soft, no organomegaly, no mass Extremities: normal range of motion, non-tender, normal inspection, no calf tenderness, no swelling 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55-1.30) H Estimat Glomerular Filtration Rate 13.6 mL/min (>60) Glucose Level 104 MG/DL (74-106) Calcium Level 8.2 MG/DL (8.5-10.1) L Phosphorus Level 5.9 MG/DL (2.5-4.9) H Magnesium Level 2.1 MG/DL (1.8-2.4) Random Vancomycin Level 12.0 ug/mL Microbiology Date/Time Source Procedure Growth Status 03/28/20 18:30 Urine,Catheterized Urine Culture - Final NO GROWTH AFTER 48 HOURS Complete Rafat Crooks MD Mar 31, 2020 14:05
[2020-03-31] MEDS: Cefepime HCl 1 GM in D5W 55 ML IVPB SCH (15:00)
--- NOTE | 2020-03-31 16:00 | NUR ---
NURSE NOTES: Complete bed bath given to patient, linens changed and placed patient in clean gown. Oral care provided; suctioned orally and via ETT with small amount of thin, white sputum noted. Patient remains awake and able to follow commands. NGT on the right nares intact and patent. TF infusing, will titrate up as tolerated. Patient a-fib on the color television console monitor. Left upper arm PICC line remains intact, patent, 1/2 NS infusing at 50ml/hr. Patient noted to have 100.1 temp rectally, cooling blanket turned on. Photos taken on skin alterations per policy. LLQ colostomy noted with intact drainage bag. Left patient clean and dry. Will continue to monitor.
--- NOTE | 2020-03-31 17:19 | Internal Med Progress Note ---
Subjective Date of Service: Mar 31, 2020 Physician Name Cami Mahoney Attending Physician Malathi Mendez MD Current Medications Medications (Trade) Dose Ordered Sig/Debbie Route PRN Reason Start Time Stop Time Status Last Admin Dose Admin Acetaminophen (Tylenol) 650 mg Q4H PRN ORAL Mild Pain (Pain Scale 1-3) 03/26/20 21:15 04/25/20 21:14 Acetaminophen (Tylenol) 650 mg Q4H PRN ORAL Temp >100.5 03/26/20 21:15 04/25/20 21:14 Al Hydroxide/Mg Hydroxide (Mylanta II) 30 ml Q6H PRN ORAL dyspepsia 03/26/20 21:15 04/25/20 21:14 Bisacodyl (Dulcolax) 10 mg HSPRN PRN RECTAL Constipation 03/26/20 21:15 06/24/20 21:14 Cefepime HCl 1 gm/ Dextrose 55 ml @ 110 mls/hr Q24H IVPB 03/28/20 15:00 04/04/20 14:59 03/31/20 15:00 Chlorhexidine Gluconate (Laurie-Hex 2%) 1 applic DAILY@2000 TOPIC 03/28/20 20:00 06/26/20 19:59 03/30/20 19:55 Dextrose (Dextrose 50%) 25 ml Q30M PRN IV Hypoglycemia 03/26/20 21:15 06/24/20 21:14 Dextrose (Dextrose 50%) 50 ml Q30M PRN IV Hypoglycemia 03/26/20 21:15 06/24/20 21:14 Diltiazem HCl (Cardizem) 60 mg EVERY 8 HOURS NG 03/31/20 14:00 04/30/20 13:59 03/31/20 13:12 Diphenhydramine HCl (Benadryl) 25 mg Q6H PRN ORAL Itching/Pruritis 03/26/20 21:15 04/25/20 21:14 Docusate Sodium (Colace) 100 mg Q12HR NG 03/30/20 09:00 04/29/20 08:59 03/31/20 08:17 Gabapentin (Neurontin) 300 mg BEDTIME ORAL 03/27/20 21:00 04/26/20 20:59 03/30/20 20:11 Lorazepam (Ativan 2mg/ml 1ml) 0.5 mg Q4H PRN IV For Anxiety 03/26/20 21:15 04/02/20 21:14 Magnesium Hydroxide (Mom) 30 ml HSPRN PRN ORAL Constipation 03/26/20 21:15 04/25/20 21:14 Metoclopramide HCl (Reglan) 10 mg Q6H PRN IVP Nausea & Vomiting 03/26/20 21:15 04/25/20 21:14 Metoprolol Tartrate (Lopressor) 100 mg EVERY 12 HOURS ORAL 03/27/20 09:00 06/25/20 08:59 03/31/20 08:16 Metronidazole 100 ml @ 100 mls/hr Q8HR IVPB 03/27/20 22:00 04/03/20 21:59 03/31/20 13:12 Morphine Sulfate (Morphine Sulfate) 2 mg Q4H PRN IVP Moderate Pain (Pain Scale 4-6) 03/26/20 21:15 04/02/20 21:14 03/31/20 16:50 Morphine Sulfate (Morphine Sulfate) 4 mg Q4H PRN IVP Severe Pain (Pain Scale 7-10) 03/26/20 21:15 04/02/20 21:14 Norepinephrine Bitartrate 4 mg/ Dextrose 250 ml @ 0 mls/hr Q24H IV 03/28/20 16:00 04/27/20 15:59 Ondansetron HCl (Zofran) 4 mg Q6H PRN IVP Nausea & Vomiting 03/26/20 21:15 04/25/20 21:14 Pantoprazole (Protonix) 40 mg DAILY IVP 04/01/20 09:00 05/01/20 08:59 Polyethylene Glycol (Miralax) 17 gm HSPRN PRN ORAL Constipation 03/26/20 21:15 04/25/20 21:14 Potassium Chloride (K-Dur) 40 meq TWICE A DAY ORAL 03/31/20 09:00 03/31/20 23:00 03/31/20 16:54 Rivaroxaban (Xarelto) 15 mg DAILY NG 03/31/20 09:00 06/29/20 08:59 03/31/20 09:38 Sevelamer Carbonate (Renvela) 1,600 mg THREE TIMES A DAY NG 6/13/20 09:00 06/27/20 08:59 03/31/20 16:54 Sodium Chloride 1,000 ml @ 50 mls/hr Q20H IV 03/30/20 14:45 04/29/20 14:44 03/31/20 09:40 Temazepam (Restoril) 15 mg HSPRN PRN ORAL Insomnia 03/26/20 21:15 04/02/20 21:14 Vancomycin HCl ([facility] pharmacy to dose) 1 ea DAILY PRN MISC Per rx protocol 03/27/20 20:15 04/26/20 20:14 Allergies: Coded Allergies: LISINOPRIL (Verified Allergy, Unknown, Hives, 04/12/14) Subjective Patient remains intubated but alert. Fi02 35%, weening trail. Appreciate Consultants. Not on pressor supportive, UO decent. 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 grossly normal Skin: warm/dry Laboratory Tests Test 03/31/20 04:00 Activated Partial Thromboplast Time 80 SEC (23-33) H Sodium Level 146 MMOL/L (136-145) H Potassium Level 2.9 MMOL/L (3.5-5.1) L Chloride Level 107 MMOL/L (98-107) Carbon Dioxide Level 24 MMOL/L (21-32) Blood Urea Nitrogen 100 mg/dL (7-18) H Creatinine 4.0 MG/DL (0.55-1.30) H Estimat Glomerular Filtration Rate 13.6 mL/min (>60) Glucose Level 104 MG/DL (74-106) Calcium Level 8.2 MG/DL (8.5-10.1) L Phosphorus Level 5.9 MG/DL (2.5-4.9) H Magnesium Level 2.1 MG/DL (1.8-2.4) Random Vancomycin Level 12.0 ug/mL Microbiology Date/Time Source Procedure Growth Status 03/28/20 18:30 Urine,Catheterized Urine Culture - Final NO GROWTH AFTER 48 HOURS Complete Intake and Output 03/30/20 03/31/20 19:00 07:00 Intake Total 1076.0 ml 1455.5 ml Output Total 695 ml 790 ml Balance 381.0 ml 665.5 ml Intake Free Water 200 ml IV Total 846.0 ml 1205.5 ml Tube Feeding 30 ml 250 ml Output Urine Total 645 ml 760 ml Stool Total 50 ml 30 ml Assessment/Plan Assessment/Plan Assessment #Acute Hypoxic Resp Failure #Afib w/ RVR, now in SR, off heparin gtt #Acute Renal Failure 2/2 ATN from Rhabo --> BUN and creatinine still very elevated, consider HD if concern of Uremic Encephalopathy #Rhabdo #Sepsis, HCAP/UTI, COVID negative #Seizure?; will f/u Plan Appreciate Consultants and ICU team Weening Trials Vancomyin, Cefepime, Flagyl, Winters Cx Diltiazem drip prn, now in SR, heparin gtt dc, on Elaquis and Metoprolol IVF per Nephro, may require HD given renal function but output good DVT and GI ppx; Tube Feeds * Will need to follow up why patient had Rhabdo? if Seizure hx could be uncontrolled seizure and then a neuro consult would be needed. Will look into Cami Mahoney D.O. Mar 31, 2020 17:19
--- NOTE | 2020-03-31 17:26 | NUR ---
NURSE NOTES: Dr Valdes present at bedside, seen and assessed patient. Ordered to keep patient under PUI. No new other verbal orders received at this time. Will continue to monitor patient.
--- NOTE | 2020-03-31 17:27 | Infectious Diseases Prog Note ---
Assessment/Plan Assessment/Plan ASSESSMENT AND PLAN: 1. uti, sepsis, fevers, leukocytosis, a.flutter, respiratory failure, atx, dony, + ua, atx - vancomycin, cefepime, flagyl - day # 4 abx - f/u on cultures - covid-19 testing negative x 2 - monitor labs and chest x-ray - d/w RN - weaning per pulmonary medicine 2. Respiratory failure, on vent. 3. Renal failure. 4. Diabetes. 5. Hypertension. 6. Diabetes and hypertension, treatment per primary care team. 7. Patient with history of altered mental status. 8. Seizure history. 9. Chronic neck pain. 10. Acute kidney injury and renal failure. 11. Allergies to lisinopril. 12. Social history is negative. 13. Family history is noncontributory. 14. MAR was noted. 15. Case was discussed with RN. 16. ICU care. 17. Skin care. 18. Continue treatment per primary consultants. Subjective Constitutional: Reports: fatigue; Denies: fever HEENT: Reports: congestion Respiratory: Reports: shortness of breath Cardiovascular: Reports: other - no pressors Gastrointestinal/Abdominal: Denies: nausea, vomiting, diarrhea Genitourinary: Reports: other - + weiss Neurologic: Reports: other - more alert Psychiatric: Reports: other - NA Skin: Denies: rash Hematologic: Denies: bleeding Musculoskeletal: Reports: other - NA Allergies: Coded Allergies: LISINOPRIL (Verified Allergy, Unknown, Hives, 04/12/14) Objective Vital Signs Last 24 Hour Vital Signs Date Time Temp Pulse Resp B/P (MAP) Pulse Ox O2 Delivery O2 Flow Rate FiO2 03/31/20 17:00 109 24 149/60 (89) 100 03/31/20 16:00 128/65 03/31/20 16:00 Mechanical Ventilator 03/31/20 16:00 107 03/31/20 16:00 30 03/31/20 16:00 114 24 132/89 (103) 93 03/31/20 15:00 106 21 128/65 (86) 97 03/31/20 14:49 110 23 30 03/31/20 14:00 90 21 102/57 (72) 97 03/31/20 13:12 109 121/54 03/31/20 13:00 88 20 106/54 (71) 97 03/31/20 12:00 99.0 109 20 130/63 (85) 94 03/31/20 12:00 Mechanical Ventilator 03/31/20 12:00 90 03/31/20 12:00 30 03/31/20 11:00 91 21 134/72 (92) 96 03/31/20 10:44 89 21 30 03/31/20 10:00 82 18 117/58 (77) 100 03/31/20 09:00 78 18 130/64 (86) 99 03/31/20 08:16 96 156/70 03/31/20 08:00 30 03/31/20 08:00 87 03/31/20 08:00 97.9 96 25 156/70 (98) 97 03/31/20 08:00 Mechanical Ventilator 03/31/20 07:06 100 03/31/20 07:06 93 25 30 03/31/20 07:00 91 23 158/68 (98) 98 03/31/20 06:30 93 18 03/31/20 06:00 95 24 152/72 (98) 98 03/31/20 05:00 94 26 142/62 (88) 98 03/31/20 04:00 98.2 91 26 110/94 (99) 98 03/31/20 04:00 Mechanical Ventilator 03/31/20 04:00 87 03/31/20 04:00 30 03/31/20 03:11 90 24 30 03/31/20 03:00 88 25 132/78 (96) 98 03/31/20 02:00 85 25 137/58 (84) 97 03/31/20 01:00 86 24 122/71 (88) 98 03/31/20 00:00 30 03/31/20 00:00 Mechanical Ventilator 03/31/20 00:00 85 03/31/20 00:00 99.0 89 27 120/65 (83) 96 03/30/20 23:04 82 26 30 03/30/20 23:00 87 25 129/69 (89) 95 03/30/20 22:00 84 25 126/58 (80) 95 03/30/20 21:00 79 24 124/63 (83) 95 03/30/20 20:11 94 133/54 03/30/20 20:00 91 03/30/20 20:00 30 03/30/20 20:00 97.9 92 26 133/53 (79) 95 03/30/20 20:00 Mechanical Ventilator 03/30/20 19:07 85 26 30 03/30/20 19:00 109 15 129/84 (99) 96 03/30/20 18:00 96 19 122/69 (86) Height (Feet): 5 Height (Inches): 6.00 Weight (Pounds): 250 General Appearance: other - + vent, no pressors, more alert HEENT: normocephalic, atraumatic, anicteric, no JVD, other - oral - intubated Respiratory/Chest: crackles/rales, rhonchi - bilaterally Cardiovascular: normal rate, regular rhythm, no gallop/murmur, no JVD Abdomen: normal bowel sounds, soft, non tender, no organomegaly, non distended Genitourinary: other - + weiss - urine slt cloudy Extremities: no cyanosis Skin: no rash Neurologic/Psychiatric: fisher crab II-XII grossly normal, alert, responsive Lymphatic: no neck adenopathy Musculoskeletal: no effusion Objective Chest x-ray - 03/29/20 - Procedure: XRAY Chest 1v Indication: Shortness of breath Technique: One view of the chest Comparison: 03/28/2020 post PICC radiograph Findings: Stable satisfactory positions of endotracheal tube, orogastric tube, left arm PICC. There is some increased atelectasis at the right lung base. There is minimal left basilar atelectasis as well. The heart size is normal. Impression: Increased right basilar atelectasis. Otherwise little manager exchange one day, findings as noted Microbiology Date/Time Source Procedure Growth Status 03/26/20 19:15 Blood Blood Culture - Preliminary NO GROWTH AFTER 4 DAYS Resulted 03/27/20 19:15 Nasal Nares MRSA Culture - Final NO METHICILLIN RESISTANT STAPH AUREUS... Complete 03/28/20 18:30 Urine,Catheterized Urine Culture - Final NO GROWTH AFTER 48 HOURS Complete 03/27/20 19:15 Rectum - Final NO CARBAPENEM-RESISTANT ENTEROBACTERI... Complete Microbiology Date/Time Source Procedure Growth Status 03/28/20 18:30 Urine,Catheterized Urine Culture - Final NO GROWTH AFTER 48 HOURS Complete Microbiology Date/Time Source Procedure Growth Status 03/28/20 18:30 Urine,Catheterized Urine Culture - Final NO GROWTH AFTER 48 HOURS Complete Labs Test 03/28/20 18:30 03/28/20 20:35 03/28/20 20:37 03/28/20 23:00 Urine Color Yellow Urine Appearance Cloudy Urine pH 5.0 (4.5-8.0) Urine Specific Albert 1.025 (1.005-1.035) Urine Protein 2+ (NEGATIVE) Urine Glucose (UA) Negative (NEGATIVE) Urine Ketones 1+ (NEGATIVE) Urine Blood 4+ (NEGATIVE) Urine Nitrite Negative (NEGATIVE) Urine Bilirubin 2+ (NEGATIVE) Urine Ictotest Negative (NEGATIVE) Urine Urobilinogen 1 MG/DL (0.0-1.0) Urine Leukocyte Esterase 2+ (NEGATIVE) Urine RBC 5-10 /HPF (0 - 2) Urine WBC 10-15 /HPF (0 - 2) Urine Squamous Epithelial Cells Many /LPF (NONE/OCC) Urine Amorphous Sediment Many /LPF (NONE) Urine Bacteria Many /HPF (NONE) Urine Opiates Screen Positive (NEGATIVE) Urine Barbiturates Screen Negative (NEGATIVE) Phencyclidine (PCP) Screen Negative (NEGATIVE) Urine Amphetamines Screen Negative (NEGATIVE) Urine Benzodiazepines Screen Positive (NEGATIVE) Urine Cocaine Screen Negative (NEGATIVE) Urine Marijuana (THC) Screen Negative (NEGATIVE) Sodium Level 145 MMOL/L (136-145) Potassium Level 4.5 MMOL/L (3.5-5.1) Chloride Level 109 MMOL/L (98-107) Carbon Dioxide Level 21 MMOL/L (21-32) Anion Gap 15 mmol/L (5-15) Blood Urea Nitrogen 101 mg/dL (7-18) Creatinine 5.4 MG/DL (0.55-1.30) Estimat Glomerular Filtration Rate 9.6 mL/min (>60) Glucose Level 113 MG/DL (74-106) Calcium Level 7.9 MG/DL (8.5-10.1) Arterial Blood pH 7.330 (7.350-7.450) Arterial Blood Partial Pressure CO2 38.0 mmHg (35.0-45.0) Arterial Blood Partial Pressure O2 100.5 mmHg (75.0-100.0) Arterial Blood HCO3 19.6 mmol/L (22.0-26.0) Arterial Blood Oxygen Saturation 96.6 % (95-100) Arterial Blood Base Excess -5.8 (-2-2) Kelvin Test Positive Activated Partial Thromboplast Time 80 SEC (23-33) Test 03/29/20 04:00 03/29/20 11:05 03/30/20 04:00 03/31/20 04:00 White Blood Count 10.5 K/UL (4.8-10.8) 15.9 K/UL (4.8-10.8) Red Blood Count 3.49 M/UL (4.20-5.40) 3.60 M/UL (4.20-5.40) Hemoglobin 9.1 G/DL (12.0-16.0) 9.5 G/DL (12.0-16.0) Hematocrit 27.5 % (37.0-47.0) 30.3 % (37.0-47.0) Mean Corpuscular Volume 79 FL (80-99) 84 FL (80-99) Mean Corpuscular Hemoglobin 26.1 PG (27.0-31.0) 26.5 PG (27.0-31.0) Mean Corpuscular Hemoglobin Concent 33.1 G/DL (32.0-36.0) 31.5 G/DL (32.0-36.0) Red Cell Distribution Width 18.5 % (11.6-14.8) 18.4 % (11.6-14.8) Platelet Count 146 K/UL (150-450) 177 K/UL (150-450) Mean Platelet Volume 6.7 FL (6.5-10.1) 8.3 FL (6.5-10.1) Neutrophils (%) (Auto) % (45.0-75.0) 83.7 % (45.0-75.0) Lymphocytes (%) (Auto) % (20.0-45.0) 5.9 % (20.0-45.0) Monocytes (%) (Auto) % (1.0-10.0) 8.6 % (1.0-10.0) Eosinophils (%) (Auto) % (0.0-3.0) 1.5 % (0.0-3.0) Basophils (%) (Auto) % (0.0-2.0) 0.3 % (0.0-2.0) Differential Total Cells Counted 100 Neutrophils % (Manual) 71 % (45-75) Lymphocytes % (Manual) 9 % (20-45) Monocytes % (Manual) 15 % (1-10) Eosinophils % (Manual) 0 % (0-3) Basophils % (Manual) 0 % (0-2) Band Neutrophils 5 % (0-8) Nucleated Red Blood Cells 2 /100 WBC Platelet Estimate Decreased Platelet Morphology Normal Hypochromasia 2+ Anisocytosis 2+ Microcytosis 1+ Activated Partial Thromboplast Time 88 SEC (23-33) 92 SEC (23-33) 80 SEC (23-33) Arterial Blood pH 7.334 (7.350-7.450) Arterial Blood Partial Pressure CO2 40.2 mmHg (35.0-45.0) Arterial Blood Partial Pressure O2 104.0 mmHg (75.0-100.0) Arterial Blood HCO3 20.9 mmol/L (22.0-26.0) Arterial Blood Oxygen Saturation 96.8 % (95-100) Arterial Blood Base Excess -4.6 (-2-2) Kelvin Test Positive Sodium Level 145 MMOL/L (136-145) 147 MMOL/L (136-145) 146 MMOL/L (136-145) Potassium Level 4.1 MMOL/L (3.5-5.1) 4.3 MMOL/L (3.5-5.1) 2.9 MMOL/L (3.5-5.1) Chloride Level 109 MMOL/L (98-107) 108 MMOL/L (98-107) 107 MMOL/L (98-107) Carbon Dioxide Level 22 MMOL/L (21-32) 21 MMOL/L (21-32) 24 MMOL/L (21-32) Anion Gap 14 mmol/L (5-15) 18 mmol/L (5-15) Blood Urea Nitrogen 101 mg/dL (7-18) 105 mg/dL (7-18) 100 mg/dL (7-18) Creatinine 5.3 MG/DL (0.55-1.30) 4.5 MG/DL (0.55-1.30) 4.0 MG/DL (0.55-1.30) Estimat Glomerular Filtration Rate 9.8 mL/min (>60) 11.8 mL/min (>60) 13.6 mL/min (>60) Glucose Level 102 MG/DL (74-106) 86 MG/DL (74-106) 104 MG/DL (74-106) Calcium Level 7.9 MG/DL (8.5-10.1) 7.8 MG/DL (8.5-10.1) 8.2 MG/DL (8.5-10.1) Phosphorus Level 7.5 MG/DL (2.5-4.9) 5.9 MG/DL (2.5-4.9) Magnesium Level 2.2 MG/DL (1.8-2.4) 2.1 MG/DL (1.8-2.4) Total Bilirubin 0.5 MG/DL (0.2-1.0) 0.8 MG/DL (0.2-1.0) Aspartate Amino Transf (AST/SGOT) 75 U/L (15-37) 67 U/L (15-37) Alanine Aminotransferase (ALT/SGPT) 28 U/L (12-78) 19 U/L (12-78) Alkaline Phosphatase 136 U/L (46-116) 163 U/L (46-116) Total Creatine Kinase 1891 U/L (26-308) 1052 U/L (26-308) Total Protein 5.4 G/DL (6.4-8.2) 5.0 G/DL (6.4-8.2) Albumin 1.8 G/DL (3.4-5.0) 1.8 G/DL (3.4-5.0) Globulin 3.6 g/dL 3.2 g/dL Albumin/Globulin Ratio 0.5 (1.0-2.7) 0.6 (1.0-2.7) Random Vancomycin Level 18.7 ug/mL 12.0 ug/mL Laboratory Tests Test 03/31/20 04:00 Activated Partial Thromboplast Time 80 SEC (23-33) H Sodium Level 146 MMOL/L (136-145) H Potassium Level 2.9 MMOL/L (3.5-5.1) L Chloride Level 107 MMOL/L (98-107) Carbon Dioxide Level 24 MMOL/L (21-32) Blood Urea Nitrogen 100 mg/dL (7-18) H Creatinine 4.0 MG/DL (0.55-1.30) H Estimat Glomerular Filtration Rate 13.6 mL/min (>60) Glucose Level 104 MG/DL (74-106) Calcium Level 8.2 MG/DL (8.5-10.1) L Phosphorus Level 5.9 MG/DL (2.5-4.9) H Magnesium Level 2.1 MG/DL (1.8-2.4) Random Vancomycin Level 12.0 ug/mL Current Medications Medications (Trade) Dose Ordered Sig/Debbie Route PRN Reason Start Time Stop Time Status Last Admin Dose Admin Acetaminophen (Tylenol) 650 mg Q4H PRN ORAL Mild Pain (Pain Scale 1-3) 03/26/20 21:15 04/25/20 21:14 Acetaminophen (Tylenol) 650 mg Q4H PRN ORAL Temp >100.5 03/26/20 21:15 04/25/20 21:14 Al Hydroxide/Mg Hydroxide (Mylanta II) 30 ml Q6H PRN ORAL dyspepsia 03/26/20 21:15 04/25/20 21:14 Bisacodyl (Dulcolax) 10 mg HSPRN PRN RECTAL Constipation 03/26/20 21:15 06/24/20 21:14 Cefepime HCl 1 gm/ Dextrose 55 ml @ 110 mls/hr Q24H IVPB 03/28/20 15:00 04/04/20 14:59 03/31/20 15:00 Chlorhexidine Gluconate (Laurie-Hex 2%) 1 applic DAILY@2000 TOPIC 03/28/20 20:00 06/26/20 19:59 03/30/20 19:55 Dextrose (Dextrose 50%) 25 ml Q30M PRN IV Hypoglycemia 03/26/20 21:15 06/24/20 21:14 Dextrose (Dextrose 50%) 50 ml Q30M PRN IV Hypoglycemia 03/26/20 21:15 06/24/20 21:14 Diltiazem HCl (Cardizem) 60 mg EVERY 8 HOURS NG 03/31/20 14:00 04/30/20 13:59 03/31/20 13:12 Diphenhydramine HCl (Benadryl) 25 mg Q6H PRN ORAL Itching/Pruritis 03/26/20 21:15 04/25/20 21:14 Docusate Sodium (Colace) 100 mg Q12HR NG 03/30/20 09:00 04/29/20 08:59 03/31/20 08:17 Gabapentin (Neurontin) 300 mg BEDTIME ORAL 03/27/20 21:00 04/26/20 20:59 03/30/20 20:11 Lorazepam (Ativan 2mg/ml 1ml) 0.5 mg Q4H PRN IV For Anxiety 03/26/20 21:15 04/02/20 21:14 Magnesium Hydroxide (Mom) 30 ml HSPRN PRN ORAL Constipation 03/26/20 21:15 04/25/20 21:14 Metoclopramide HCl (Reglan) 10 mg Q6H PRN IVP Nausea & Vomiting 03/26/20 21:15 04/25/20 21:14 Metoprolol Tartrate (Lopressor) 100 mg EVERY 12 HOURS ORAL 03/27/20 09:00 06/25/20 08:59 03/31/20 08:16 Metronidazole 100 ml @ 100 mls/hr Q8HR IVPB 03/27/20 22:00 04/03/20 21:59 03/31/20 13:12 Morphine Sulfate (Morphine Sulfate) 2 mg Q4H PRN IVP Moderate Pain (Pain Scale 4-6) 03/26/20 21:15 04/02/20 21:14 03/31/20 16:50 Morphine Sulfate (Morphine Sulfate) 4 mg Q4H PRN IVP Severe Pain (Pain Scale 7-10) 03/26/20 21:15 04/02/20 21:14 Norepinephrine Bitartrate 4 mg/ Dextrose 250 ml @ 0 mls/hr Q24H IV 03/28/20 16:00 04/27/20 15:59 Ondansetron HCl (Zofran) 4 mg Q6H PRN IVP Nausea & Vomiting 03/26/20 21:15 04/25/20 21:14 Pantoprazole (Protonix) 40 mg DAILY IVP 04/01/20 09:00 05/01/20 08:59 Polyethylene Glycol (Miralax) 17 gm HSPRN PRN ORAL Constipation 03/26/20 21:15 04/25/20 21:14 Potassium Chloride (K-Dur) 40 meq TWICE A DAY ORAL 03/31/20 09:00 03/31/20 23:00 03/31/20 16:54 Rivaroxaban (Xarelto) 15 mg DAILY NG 03/31/20 09:00 06/29/20 08:59 03/31/20 09:38 Sevelamer Carbonate (Renvela) 1,600 mg THREE TIMES A DAY NG 03/31/20 09:00 06/27/20 08:59 03/31/20 16:54 Sodium Chloride 1,000 ml @ 50 mls/hr Q20H IV 03/30/20 14:45 04/29/20 14:44 03/31/20 09:40 Temazepam (Restoril) 15 mg HSPRN PRN ORAL Insomnia 03/26/20 21:15 04/02/20 21:14 Vancomycin HCl (Vanco pharmacy to dose) 1 ea DAILY PRN MISC Per rx protocol 03/27/20 20:15 04/26/20 20:14 Jose Valdes MD Mar 31, 2020 17:27
--- NOTE | 2020-03-31 18:00 | NUR ---
NURSE NOTES: Observed patient resting well in bed, no s/s of pain/distress at this time. Temp 98.7 per rectal. Will continue to monitor.
--- NOTE | 2020-03-31 19:04 | NUR ---
HAND-OFF: Report given to JOSSELNY Holt. Endorsed plan of care.
--- NOTE | 2020-03-31 19:05 | NUR ---
NURSE NOTES: Received patient from JOSSELYN Denise. Will continue plan of care.
--- NOTE | 2020-03-31 20:00 | NUR ---
NURSE NOTES: Patient is awake, alert and oriented x 3; follows commands, able to answer simple questions and write needs with pen and paper. She is not on restraints but understands not to pull medical devices for it is dangerous and life threatening which was reinforced the many times. Patient is intubated ETT 8.0 @ 26 to the lipline to vent settings of AC:12, TV:500, PEEP:5, FiO2:30% and O2 saturation:100%. Right nare NGT in place with feeding of Vital AF running at goal 45ml/hr, will monitor and increase to goal of 55ml/hr as tolerated. NS running at 50ml/hr vial left upper arm PICC line. Turned and repositioned as requested. Cooling blanket is on. Bed low, locked and alarm is on. RT at bedside.
[2020-03-31] MEDS: Dyna-Hex 2% Top Sol 2oz TOPIC SCH (20:20)
--- NOTE | 2020-03-31 20:24 | Nephrology Progress Note ---
Assessment/Plan Plan #VENTURA due to ATN in the setting of rhabdo- on CKD #hyperkalemia #Rhabdo #UTI sepsis #Lactic acidsis #AMS - toxic metabolic encephalopathy #Hypoxemic resp failure #afib with RVR #HLD #Obesity - no acute indication for HD - monitor UOP - resume 1/2NS at 50cc/hr -Hr better controlled -phos high -will add sevelamer - metop per Cardiology - add diltiazem 60mg TID - monitor K,bmp - will discuss need for HD if no improvement with hydration - weiss placed - strict I&Os - vent management per Dr. Cordova - cardiology eval - 2d echo - ID consult - vanco and cefepime - follow cx - monitor BMP, mag and phos daily 30 minutes of critical care time- greater than 50% on care coordination and counseling Subjective ROS Limited/Unobtainable: Yes Subjective Cr slowly downtrending remains intubated Hr better controlled sodium uptrending Objective Objective Last 24 Hour Vital Signs Date Time Temp Pulse Resp B/P (MAP) Pulse Ox O2 Delivery O2 Flow Rate FiO2 03/31/20 20:21 98 169/73 03/31/20 20:00 Mechanical Ventilator 03/31/20 20:00 30 03/31/20 20:00 98.8 95 23 162/74 (103) 77 03/31/20 19:45 100 22 166/75 (105) 03/31/20 19:30 95 21 149/84 (105) 03/31/20 19:30 100 29 30 03/31/20 19:15 94 20 157/69 (98) 03/31/20 19:00 98 22 151/79 (103) 100 03/31/20 18:00 98.7 88 17 146/68 (94) 100 03/31/20 17:00 109 24 149/60 (89) 100 03/31/20 16:00 128/65 03/31/20 16:00 Mechanical Ventilator 03/31/20 16:00 107 03/31/20 16:00 30 03/31/20 16:00 100.1 114 24 132/89 (103) 93 03/31/20 15:00 106 21 128/65 (86) 97 03/31/20 14:49 110 23 30 03/31/20 14:00 90 21 102/57 (72) 97 03/31/20 13:12 109 121/54 03/31/20 13:00 88 20 106/54 (71) 97 03/31/20 12:00 99.0 109 20 130/63 (85) 94 03/31/20 12:00 Mechanical Ventilator 03/31/20 12:00 90 03/31/20 12:00 30 03/31/20 11:00 91 21 134/72 (92) 96 03/31/20 10:44 89 21 30 03/31/20 10:00 82 18 117/58 (77) 100 03/31/20 09:00 78 18 130/64 (86) 99 03/31/20 08:16 96 156/70 03/31/20 08:00 30 03/31/20 08:00 87 03/31/20 08:00 97.9 96 25 156/70 (98) 97 03/31/20 08:00 Mechanical Ventilator 03/31/20 07:06 100 03/31/20 07:06 93 25 30 03/31/20 07:00 91 23 158/68 (98) 98 03/31/20 06:30 93 18 03/31/20 06:00 95 24 152/72 (98) 98 03/31/20 05:00 94 26 142/62 (88) 98 03/31/20 04:00 98.2 91 26 110/94 (99) 98 03/31/20 04:00 Mechanical Ventilator 03/31/20 04:00 87 03/31/20 04:00 30 03/31/20 03:11 90 24 30 03/31/20 03:00 88 25 132/78 (96) 98 03/31/20 02:00 85 25 137/58 (84) 97 03/31/20 01:00 86 24 122/71 (88) 98 03/31/20 00:00 30 03/31/20 00:00 Mechanical Ventilator 03/31/20 00:00 85 03/31/20 00:00 99.0 89 27 120/65 (83) 96 03/30/20 23:04 82 26 30 03/30/20 23:00 87 25 129/69 (89) 95 03/30/20 22:00 84 25 126/58 (80) 95 03/30/20 21:00 79 24 124/63 (83) 95 Intake and Output 03/30/20 03/31/20 19:00 07:00 Intake Total 1076.0 ml 1455.5 ml Output Total 695 ml 790 ml Balance 381.0 ml 665.5 ml Intake Free Water 200 ml IV Total 846.0 ml 1205.5 ml Tube Feeding 30 ml 250 ml Output Urine Total 645 ml 760 ml Stool Total 50 ml 30 ml Laboratory Tests 03/31/20 04:00: Activated Partial Thromboplast Time 80H, Sodium Level 146H, Potassium Level 2.9L , Chloride Level 107, Carbon Dioxide Level 24, Blood Urea Nitrogen 100H, Creatinine 4.0H, Estimat Glomerular Filtration Rate 13.6, Glucose Level 104, Calcium Level 8.2L, Phosphorus Level 5.9H, Magnesium Level 2.1, Random Vancomycin Level 12.0 Height (Feet): 5 Height (Inches): 6.00 Weight (Pounds): 250 Objective General Appearance: other - intubated Lines, tubes and drains: peripheral HEENT: normocephalic, atraumatic Neck: non-tender, normal alignment, supple Respiratory/Chest: lungs clear Cardiovascular/Chest: normal peripheral pulses, tachycardia, irregularly irregular Abdomen: soft Skin Exam: normal pigmentation Neurologic: disoriented Venkat Montes M.D. Mar 31, 2020 20:24
--- NOTE | 2020-03-31 22:00 | NUR ---
NURSE NOTES: Oral care and suctioning provided. Repositioned. Patient has anxiety about her condition; she spelled out AM I DY reassured her that everything is being done to get her well and for her to relax and get rest. Reinforced that the lines and tubes are to help her and to no pull which she understands. IV lines are changed and updated. Remains on cooling blanket.
--- NOTE | 2020-03-31 22:33 | NUR ---
NURSE NOTES: Patients called and wanted updated and to relay messages. He said he will call back tomorrow during the day and hope to have someone hold a phone to her ear so they can send her well wishes. Will find phone and prepare for his call back.
[2020-04-01] VITALS (48 sets, daily range): BP systolic 105–181; BP diastolic 50–99
--- NOTE | 2020-04-01 | NUR ---
NURSE NOTES: Patient complaints of pain; morphine 4mg IV PRN given. Suctioning provided. All needs are met. Will continue to monitor.
--- NOTE | 2020-04-01 02:00 | NUR ---
NURSE NOTES: Heart rate and BP increasing. Patient is very anxious about her condition which she shows by nodding and stating using the alphabet chart. Ativan PRN given.
--- NOTE | 2020-04-01 03:47 | NUR ---
NURSE NOTES: Patient has been every agitated, anxious and in chronic pain. Called Dr. Cordova and informed him, also informed him that patient has been hypertensive and tachycardic. Fentanyl drip ordered and will start.
[2020-04-01] MEDS: fentaNYL 2500mcg/NS 250ml 250 ML IV SCH (04:04)
[2020-04-01] MEDS: dilTIAZem HCl 60mg tab NG SCH ×3 (05:32→20:44)
[2020-04-01 05:45] LABS: BASOPHILS % (AUTO) 0.5 % (0.0-2.0); EOSINOPHILS % (AUTO) 0.1 % (0.0-3.0); HEMATOCRIT 31.9 % (37.0-47.0); HEMOGLOBIN 9.6 G/DL (12.0-16.0); LYMPHOCYTES % (AUTO) 5.8 % (20.0-45.0); MEAN CORPUSCULAR VOLUME 86 FL (80-99); MONOCYTES % (AUTO) 9.2 % (1.0-10.0); NEUTROPHILS % (AUTO) 84.4 % (45.0-75.0); PLATELET COUNT 189 K/UL (150-450); RED BLOOD COUNT 3.73 M/UL (4.20-5.40); RED CELL DISTRIBUTION WIDTH 20.5 % (11.6-14.8); WHITE BLOOD COUNT 16.8 K/UL (4.8-10.8)
--- NOTE | 2020-04-01 06:00 | NUR ---
NURSE NOTES: Fentanyl drip was started and titrated up per protocol. Current running at 150mcgs. Patient is more relaxed but still awake and alert. BP:114/56 HR:94. HR tends to go up when aroused but SR when relaxed and unbothered. Tylenol given PRN for elevated temp of 100.5F rectally. Cooling measures in place.
[2020-04-01 06:35] LABS: ALANINE AMINOTRANSFERASE 15 U/L (12-78); ALBUMIN 1.8 G/DL (3.4-5.0); ALBUMIN/GLOBULIN RATIO 0.4 (1.0-2.7); ALKALINE PHOSPHATASE 155 U/L (46-116); ANION GAP 15 mmol/L (5-15); ASPARTATE AMINO TRANSFERASE 35 U/L (15-37); BILIRUBIN,TOTAL 0.6 MG/DL (0.2-1.0); BLOOD UREA NITROGEN 94 mg/dL (7-18); CALCIUM 7.3 MG/DL (8.5-10.1); CARBON DIOXIDE 24 MMOL/L (21-32); CHLORIDE 109 MMOL/L (98-107); POTASSIUM 3.1 MMOL/L (3.5-5.1); SODIUM 147 MMOL/L (136-145)
[2020-04-01 06:36] LABS: PHOSPHORUS 3.8 MG/DL (2.5-4.9)
--- NOTE | 2020-04-01 07:00 | NUR ---
HAND-OFF: Report given to JOSSELYN Denise.
--- NOTE | 2020-04-01 07:08 | NUR ---
NURSE NOTES: Dr Montes contacted, reported patient's potassium level of 3.1 today. Received telephone orders, read back and verified. Will enter and will carry out.
--- NOTE | 2020-04-01 07:10 | NUR ---
NURSE NOTES: Received report from JOSSELYN Holt. Patient is awake, follows simple commands, and is able to communicate using pen and paper provided. Patient is orally intubated with ETT 8.0 @26cm on the lip line with vent settings as follows: AC 12, TV 500, FiO2 30% and PEEP 5. line person shows a-fib. Bilateral hands non pitting edema noted, but pulses are still palpable on the radial. Patient has NGT on the right nares, Vital AF 1.2 infusing at 55ml/hr. HOB elevated for aspiration precautions. Patient noted to have colostomy on the LLQ, stoma is pink and moist, surrounding area is firm and bulging. Colostomy bag intact, small amount of brown liquid stool noted. Patient has PICC line on left upper arm; intact, asymptomatic and patent running 1/2 NS at 50ml/hr, patient is on Fentanyl drip at 150ml/hr, placed on hold at this time to prepare patient for vent weaning; Patient is at a RASS of 0 at this time, she is alert and calm at the moment. RT Toya at bedside. Educated patient and reinforced teaching on not to pull out medical tubes/devices such as ETT and NGT. Patient has a Desai catheter draining to gravity with renetta colored urine output noted to have sediments. Patient is afebrile. No distress noted at this time; all needs attended to. Bed is locked, alarmed, and in lowest position, padded side rails up x2, and call light left within reach. Will continue plan of care and will continue to monitor patient.
[2020-04-01] MEDS: Pantoprazole Inj IVP SCH (08:09)
[2020-04-01] MEDS: Docusate 100mg/10ml Liq NG SCH ×2 (08:09→20:41)
[2020-04-01] MEDS: Renvela 800mg Pkt NG SCH ×3 (08:09→17:12)
[2020-04-01] MEDS: Metoprolol Tartrate 100mg tab ORAL SCH ×2 (08:10→20:42)
[2020-04-01] MEDS: Xarelto 15mg tab NG SCH (08:10)
[2020-04-01] MEDS ORDERED: Vancomycin 1gm/D5W 275ml IVPB ONE ×2 (08:30)
--- NOTE | 2020-04-01 08:35 | NUR ---
NURSE NOTES: Scheduled medications given to patient. Patient is asleep at this time, but opens eyes spontaneously to verbal stimuli, still able to make needs known and able to follow simple commands. Patient is calm, no s/s of anxiety/distress at this time. Placed Fentanyl in lock box; still on hold at this time per weaning protocol. Dr Iglesias present at bedside, assessed patient's colostomy site. No new verbal orders received at this time. Suctioned patient via ETT, small amount of white/yellow, thick sputum noted. Oral care provided and tolerated well. Patient is afebrile and denies pain at this time. Will continue to monitor.
--- NOTE | 2020-04-01 10:07 | NUR ---
RESPIRATORY NOTE: attempting to wean pt on CPAP PS8 fio2 30%. no signs of resp distress or labored breathing. pt met weaning criteria and will continue as tolerated. RN notified
--- NOTE | 2020-04-01 10:09 | NUR ---
NURSE NOTES: RT at bedside for weaning. Patient remains awake and following commands, off Fentanyl drip per weaning protocol. Will continue to monitor patient.
--- NOTE | 2020-04-01 10:17 | Nephrology Progress Note ---
Assessment/Plan Plan #VENTURA due to ATN in the setting of rhabdo- on CKD #hyperkalemia #Rhabdo #UTI sepsis #Lactic acidsis #AMS - toxic metabolic encephalopathy #Hypoxemic resp failure #afib with RVR #HLD #Obesity - no acute indication for HD - monitor UOP - resume 1/2NS at 50cc/hr -Hr better controlled -phos high -will add sevelamer - metop per Cardiology - add diltiazem 60mg TID - monitor K,bmp - will discuss need for HD if no improvement with hydration - weiss placed - strict I&Os - vent management per Dr. Cordova - cardiology eval - 2d echo - ID consult - vanco and cefepime - follow cx - monitor BMP, mag and phos daily 30 minutes of critical care time- greater than 50% on care coordination and counseling Subjective Subjective Cr slowly downtrending remains intubated Hr better controlled sodium uptrending Objective Objective Last 24 Hour Vital Signs Date Time Temp Pulse Resp B/P (MAP) Pulse Ox O2 Delivery O2 Flow Rate FiO2 04/01/20 10:06 100 04/01/20 10:00 81 21 112/65 (81) 100 04/01/20 09:00 83 17 106/67 (80) 100 04/01/20 08:10 109 127/71 04/01/20 08:00 30 04/01/20 08:00 Mechanical Ventilator 04/01/20 08:00 97.3 102 16 128/67 (87) 100 04/01/20 07:10 24 127/71 Mechanical Ventilator 30 04/01/20 07:06 109 19 30 04/01/20 07:00 103 18 127/71 (89) 100 04/01/20 07:00 24 127/71 Mechanical Ventilator 30 04/01/20 06:45 114 22 110/61 (77) 100 04/01/20 06:30 111 22 04/01/20 06:30 86 21 119/68 (85) 100 04/01/20 06:15 87 21 130/68 (88) 99 04/01/20 06:02 100.0 04/01/20 06:00 21 114/56 Mechanical Ventilator 30 04/01/20 06:00 110 23 114/56 (75) 99 04/01/20 05:45 164 21 131/67 (88) 04/01/20 05:45 22 131/67 Mechanical Ventilator 30 04/01/20 05:32 166 152/80 04/01/20 05:30 166 22 141/75 (97) 04/01/20 05:15 166 24 152/80 (104) 04/01/20 05:00 167 22 144/82 (102) 04/01/20 05:00 23 145/81 Mechanical Ventilator 30 04/01/20 04:45 168 20 130/74 (92) 89 04/01/20 04:30 165 27 141/82 (101) 04/01/20 04:15 169 33 164/86 (112) 04/01/20 04:04 20 156/83 Mechanical Ventilator 30 04/01/20 04:00 100.3 169 26 156/83 (107) 04/01/20 04:00 Mechanical Ventilator 04/01/20 04:00 30 04/01/20 03:45 169 20 154/81 (105) 04/01/20 03:30 169 29 158/86 (110) 04/01/20 03:28 159 33 30 04/01/20 03:19 169 04/01/20 03:15 169 32 149/84 (105) 99 04/01/20 03:00 167 31 156/80 (105) 04/01/20 02:45 168 31 160/75 (103) 98 04/01/20 02:30 168 25 152/73 (99) 98 04/01/20 02:15 148 22 159/76 (103) 98 04/01/20 02:00 140 25 181/74 (109) 85 04/01/20 01:45 136 23 167/74 (105) 100 04/01/20 01:30 122 29 171/73 (105) 100 04/01/20 01:24 123 26 173/86 (115) 100 04/01/20 01:15 114 26 159/99 (119) 100 04/01/20 01:03 112 29 148/64 (92) 100 04/01/20 01:00 108 28 172/69 (103) 100 04/01/20 00:45 97 27 160/86 (110) 100 04/01/20 00:30 93 27 159/79 (105) 100 04/01/20 00:15 93 29 165/69 (101) 100 04/01/20 00:00 99.5 90 27 157/74 (101) 100 04/01/20 00:00 Mechanical Ventilator 03/31/20 23:45 91 26 155/72 (99) 100 03/31/20 23:30 95 31 30 03/31/20 23:30 89 24 151/70 (97) 100 03/31/20 23:15 90 26 154/67 (96) 100 03/31/20 23:05 85 03/31/20 23:00 86 21 149/73 (98) 100 03/31/20 22:45 85 23 141/71 (94) 100 03/31/20 22:30 83 23 143/67 (92) 100 03/31/20 22:15 81 23 146/73 (97) 99 03/31/20 22:00 82 21 143/70 (94) 99 03/31/20 21:45 82 25 99/85 (90) 98 03/31/20 21:30 81 21 137/71 (93) 98 03/31/20 21:15 86 25 148/69 (95) 03/31/20 21:04 89 149/70 03/31/20 21:00 82 16 149/70 (96) 03/31/20 20:45 82 18 153/73 (99) 03/31/20 20:30 94 17 165/73 (103) 03/31/20 20:21 98 169/73 03/31/20 20:15 97 16 169/73 (105) 03/31/20 20:00 Mechanical Ventilator 03/31/20 20:00 30 03/31/20 20:00 98.8 95 23 162/74 (103) 77 03/31/20 19:45 100 22 166/75 (105) 03/31/20 19:41 99 03/31/20 19:30 95 21 149/84 (105) 03/31/20 19:30 100 29 30 03/31/20 19:15 94 20 157/69 (98) 03/31/20 19:00 98 22 151/79 (103) 100 03/31/20 18:00 98.7 88 17 146/68 (94) 100 03/31/20 17:00 109 24 149/60 (89) 100 03/31/20 16:00 128/65 03/31/20 16:00 Mechanical Ventilator 03/31/20 16:00 107 03/31/20 16:00 30 03/31/20 16:00 100.1 114 24 132/89 (103) 93 03/31/20 15:00 106 21 128/65 (86) 97 03/31/20 14:49 110 23 30 03/31/20 14:00 90 21 102/57 (72) 97 03/31/20 13:12 109 121/54 03/31/20 13:00 88 20 106/54 (71) 97 03/31/20 12:00 99.0 109 20 130/63 (85) 94 03/31/20 12:00 Mechanical Ventilator 03/31/20 12:00 90 03/31/20 12:00 30 03/31/20 11:00 91 21 134/72 (92) 96 03/31/20 10:44 89 21 30 Intake and Output 03/31/20 04/01/20 19:00 07:00 Intake Total 1497.73588 ml 1397.9166 ml Output Total 570 ml 1250 ml Balance 927.76759 ml 147.9166 ml IV Total 1037.79940 ml 817.9166 ml Tube Feeding 410 ml 580 ml Other 50 ml Output Urine Total 520 ml 1100 ml Stool Total 50 ml 150 ml Laboratory Tests 03/31/20 17:14: Stool Occult Blood [Pending] 04/01/20 04:00: White Blood Count 16.8H, Red Blood Count 3.73L, Hemoglobin 9.6L, Hematocrit 31.9L, Mean Corpuscular Volume 86, Mean Corpuscular Hemoglobin 25.8L, Mean Corpuscular Hemoglobin Concent 30.2L, Red Cell Distribution Width 20.5H, Platelet Count 189, Mean Platelet Volume 8.0, Neutrophils (%) (Auto) 84.4H, Lymphocytes (%) (Auto) 5.8L, Monocytes (%) (Auto) 9.2, Eosinophils (%) (Auto) 0.1, Basophils (%) (Auto) 0.5, Sodium Level 147H, Potassium Level 3.1L, Chloride Level 109H, Carbon Dioxide Level 24, Anion Gap 15, Blood Urea Nitrogen 94H, Creatinine 3.0H, Estimat Glomerular Filtration Rate 18.9, Glucose Level 141H, Calcium Level 7.3L, Phosphorus Level 3.8, Magnesium Level 1.8, Total Bilirubin 0.6, Aspartate Amino Transf (AST/SGOT) 35, Alanine Aminotransferase ( ALT/SGPT) 15, Alkaline Phosphatase 155H, Total Protein 5.8L, Albumin 1.8L, Globulin 4.0, Albumin/Globulin Ratio 0.4L, Random Vancomycin Level 15.8 Height (Feet): 5 Height (Inches): 6.00 Weight (Pounds): 250 Objective General Appearance: other - intubated Lines, tubes and drains: peripheral HEENT: normocephalic, atraumatic Neck: non-tender, normal alignment, supple Respiratory/Chest: lungs clear Cardiovascular/Chest: normal peripheral pulses, tachycardia, irregularly irregular Abdomen: soft Skin Exam: normal pigmentation Neurologic: disoriented Venkat Montes M.D. Apr 01, 2020 10:17
--- NOTE | 2020-04-01 10:30 | Surgery Progress Note ---
Surgery Progress Note Subjective Additional Comments leukocytosis h/h stable labs noted on support fi02 30% peep 5 Objective Last 24 Hour Vital Signs Date Time Temp Pulse Resp B/P (MAP) Pulse Ox O2 Delivery O2 Flow Rate FiO2 04/01/20 10:06 100 04/01/20 10:00 81 21 112/65 (81) 100 04/01/20 09:00 83 17 106/67 (80) 100 04/01/20 08:10 109 127/71 04/01/20 08:00 30 04/01/20 08:00 Mechanical Ventilator 04/01/20 08:00 97.3 102 16 128/67 (87) 100 04/01/20 07:10 24 127/71 Mechanical Ventilator 30 04/01/20 07:06 109 19 30 04/01/20 07:00 103 18 127/71 (89) 100 04/01/20 07:00 24 127/71 Mechanical Ventilator 30 04/01/20 06:45 114 22 110/61 (77) 100 04/01/20 06:30 111 22 04/01/20 06:30 86 21 119/68 (85) 100 04/01/20 06:15 87 21 130/68 (88) 99 04/01/20 06:02 100.0 04/01/20 06:00 21 114/56 Mechanical Ventilator 30 04/01/20 06:00 110 23 114/56 (75) 99 04/01/20 05:45 164 21 131/67 (88) 04/01/20 05:45 22 131/67 Mechanical Ventilator 30 04/01/20 05:32 166 152/80 04/01/20 05:30 166 22 141/75 (97) 04/01/20 05:15 166 24 152/80 (104) 04/01/20 05:00 167 22 144/82 (102) 04/01/20 05:00 23 145/81 Mechanical Ventilator 30 04/01/20 04:45 168 20 130/74 (92) 89 04/01/20 04:30 165 27 141/82 (101) 04/01/20 04:15 169 33 164/86 (112) 04/01/20 04:04 20 156/83 Mechanical Ventilator 30 04/01/20 04:00 100.3 169 26 156/83 (107) 04/01/20 04:00 Mechanical Ventilator 04/01/20 04:00 30 04/01/20 03:45 169 20 154/81 (105) 04/01/20 03:30 169 29 158/86 (110) 04/01/20 03:28 159 33 30 04/01/20 03:19 169 04/01/20 03:15 169 32 149/84 (105) 99 04/01/20 03:00 167 31 156/80 (105) 04/01/20 02:45 168 31 160/75 (103) 98 04/01/20 02:30 168 25 152/73 (99) 98 04/01/20 02:15 148 22 159/76 (103) 98 04/01/20 02:00 140 25 181/74 (109) 85 04/01/20 01:45 136 23 167/74 (105) 100 04/01/20 01:30 122 29 171/73 (105) 100 04/01/20 01:24 123 26 173/86 (115) 100 04/01/20 01:15 114 26 159/99 (119) 100 04/01/20 01:03 112 29 148/64 (92) 100 04/01/20 01:00 108 28 172/69 (103) 100 04/01/20 00:45 97 27 160/86 (110) 100 04/01/20 00:30 93 27 159/79 (105) 100 04/01/20 00:15 93 29 165/69 (101) 100 04/01/20 00:00 99.5 90 27 157/74 (101) 100 04/01/20 00:00 Mechanical Ventilator 03/31/20 23:45 91 26 155/72 (99) 100 03/31/20 23:30 95 31 30 03/31/20 23:30 89 24 151/70 (97) 100 03/31/20 23:15 90 26 154/67 (96) 100 03/31/20 23:05 85 03/31/20 23:00 86 21 149/73 (98) 100 03/31/20 22:45 85 23 141/71 (94) 100 03/31/20 22:30 83 23 143/67 (92) 100 03/31/20 22:15 81 23 146/73 (97) 99 03/31/20 22:00 82 21 143/70 (94) 99 03/31/20 21:45 82 25 99/85 (90) 98 03/31/20 21:30 81 21 137/71 (93) 98 03/31/20 21:15 86 25 148/69 (95) 03/31/20 21:04 89 149/70 03/31/20 21:00 82 16 149/70 (96) 03/31/20 20:45 82 18 153/73 (99) 03/31/20 20:30 94 17 165/73 (103) 03/31/20 20:21 98 169/73 03/31/20 20:15 97 16 169/73 (105) 03/31/20 20:00 Mechanical Ventilator 03/31/20 20:00 30 03/31/20 20:00 98.8 95 23 162/74 (103) 77 03/31/20 19:45 100 22 166/75 (105) 03/31/20 19:41 99 03/31/20 19:30 95 21 149/84 (105) 03/31/20 19:30 100 29 30 03/31/20 19:15 94 20 157/69 (98) 03/31/20 19:00 98 22 151/79 (103) 100 03/31/20 18:00 98.7 88 17 146/68 (94) 100 03/31/20 17:00 109 24 149/60 (89) 100 03/31/20 16:00 128/65 03/31/20 16:00 Mechanical Ventilator 03/31/20 16:00 107 03/31/20 16:00 30 03/31/20 16:00 100.1 114 24 132/89 (103) 93 03/31/20 15:00 106 21 128/65 (86) 97 03/31/20 14:49 110 23 30 03/31/20 14:00 90 21 102/57 (72) 97 03/31/20 13:12 109 121/54 03/31/20 13:00 88 20 106/54 (71) 97 03/31/20 12:00 99.0 109 20 130/63 (85) 94 03/31/20 12:00 Mechanical Ventilator 03/31/20 12:00 90 03/31/20 12:00 30 03/31/20 11:00 91 21 134/72 (92) 96 03/31/20 10:44 89 21 30 I&O Intake and Output 03/31/20 04/01/20 19:00 07:00 Intake Total 1497.74810 ml 1397.9166 ml Output Total 570 ml 1250 ml Balance 927.90008 ml 147.9166 ml IV Total 1037.88286 ml 817.9166 ml Tube Feeding 410 ml 580 ml Other 50 ml Output Urine Total 520 ml 1100 ml Stool Total 50 ml 150 ml Dressing: other Wound: other Drains: other Cardiovascular: RSR Respiratory: decreased breath sounds Abdomen: soft, non-tender, present bowel sounds, other Extremities: no cyanosis Laboratory Tests Test 03/31/20 17:14 04/01/20 04:00 Stool Occult Blood Pending White Blood Count 16.8 K/UL (4.8-10.8) H Red Blood Count 3.73 M/UL (4.20-5.40) L Hemoglobin 9.6 G/DL (12.0-16.0) L Hematocrit 31.9 % (37.0-47.0) L Mean Corpuscular Volume 86 FL (80-99) Mean Corpuscular Hemoglobin 25.8 PG (27.0-31.0) L Mean Corpuscular Hemoglobin Concent 30.2 G/DL (32.0-36.0) L Red Cell Distribution Width 20.5 % (11.6-14.8) H Platelet Count 189 K/UL (150-450) Mean Platelet Volume 8.0 FL (6.5-10.1) Neutrophils (%) (Auto) 84.4 % (45.0-75.0) H Lymphocytes (%) (Auto) 5.8 % (20.0-45.0) L Monocytes (%) (Auto) 9.2 % (1.0-10.0) Eosinophils (%) (Auto) 0.1 % (0.0-3.0) Basophils (%) (Auto) 0.5 % (0.0-2.0) Sodium Level 147 MMOL/L (136-145) H Potassium Level 3.1 MMOL/L (3.5-5.1) L Chloride Level 109 MMOL/L (98-107) H Carbon Dioxide Level 24 MMOL/L (21-32) Anion Gap 15 mmol/L (5-15) Blood Urea Nitrogen 94 mg/dL (7-18) H Creatinine 3.0 MG/DL (0.55-1.30) H Estimat Glomerular Filtration Rate 18.9 mL/min (>60) Glucose Level 141 MG/DL (74-106) H Calcium Level 7.3 MG/DL (8.5-10.1) L Phosphorus Level 3.8 MG/DL (2.5-4.9) Magnesium Level 1.8 MG/DL (1.8-2.4) Total Bilirubin 0.6 MG/DL (0.2-1.0) Aspartate Amino Transf (AST/SGOT) 35 U/L (15-37) Alanine Aminotransferase (ALT/SGPT) 15 U/L (12-78) Alkaline Phosphatase 155 U/L (46-116) H Total Protein 5.8 G/DL (6.4-8.2) L Albumin 1.8 G/DL (3.4-5.0) L Globulin 4.0 g/dL Albumin/Globulin Ratio 0.4 (1.0-2.7) L Random Vancomycin Level 15.8 ug/mL Plan Problems: (1) Sepsis Assessment & Plan: Patient admitted identified to have sepsis leukocytosis tachycardia abnormal labs lactic acidosis. Chest x-ray reviewed. Imaging noted. Micro noted. Intensive care unit on support appreciate ICU care Nutritional optimization IV fluids IV antibiotics as per infectious disease tube feeds once stable will follow with recommendations thank you for letting participate patient's care Urosepsis on abx DAILY ESTIMATED NEEDS: Needs based on Critical care, sepsis 75.8kg adj 20-28 kcals/kg 5195-8469 total kcals 1.25-1.5 g protein/kg 95-152 g total protein 25-30 mL/kg 0700-5483 total fluid mLs NUTRITION DIAGNOSIS: Swallowing difficulty r/t respiratory status as evidenced by pt orally intubated, ICU status. CURRENT TF:NPO ENTERAL NUTRITION RECOMMENDATIONS: VITAL AF 1.2 @55ml/hr x24 hrs to provide 1320ml, 1584 kcal, 99g pro, 1071ml free H2O - As medically able, rec non oral feeds. Start VITAL 1.2 @low rate 15ml/hr x6 hrs, advance as tolerated 10ml/hr q4-6 hrs to goal. - Flush per MD/ HOB over 30 degrees -> IF POTASSIUM REMAINS ELEVATED-> Rec NEPRO w/ goal rate of 40ml/hr for 24 hrs to provide 960ml, 1728 kcal, 78g pro, 698ml free H2O. -> Feed w/ hemodynamic stability. ADDITIONAL RECOMMENDATIONS: 1) Maintain calibrated bed scale wts (248lbs vs 217lbs last adm) 2) F/up w/ WC eval. NPO at this time 3) Monitor lytes, need for renal formula 4) Feed when hemodynamically stable -> trophic feeds w/ low BP to maintain gut integrity (2) Sacral decubitus ulcer Assessment & Plan: Patient identified to have a sacral deep tissue injury upon admission Currently intensive care unit on support Care plan initiated (3) Ventral incisional hernia Assessment & Plan: History of colon resection colostomy Ventral incisional hernia reducible No acute invention monitor parastomal hernia stable ostomy viable and functional no acute intervention planned Julian Iglesias Apr 01, 2020 10:30
--- NOTE | 2020-04-01 12:00 | NUR ---
NURSE NOTES: Patient remains on weaning CPAP. Fentanyl is off. 1/2 NS remains at 50ml/hr. Patient is asleep at this time. No s/s of distress noted. Shifted and repositioned. Will continue to monitor patient.
--- NOTE | 2020-04-01 12:10 | NUR ---
NURSE NOTES: Dr Mahoney present in the unit, updated on patient's condition. No new verbal orders received at this time.
--- NOTE | 2020-04-01 13:00 | Pulmonology Progress Note ---
Subjective ROS Limited/Unobtainable: Yes Interval Events: Intubated; no new events Constitutional: Reports: fever, other - on vent, no pressors HEENT: Repors: no symptoms Respiratory: Reports: no symptoms Cardiovascular: Reports: no symptoms Gastrointestinal/Abdominal: Denies: nausea, vomiting, diarrhea Psychiatric: Reports: other - NA Skin: Denies: rash Musculoskeletal: Reports: other - NA Allergies: Coded Allergies: LISINOPRIL (Verified Allergy, Unknown, Hives, 04/12/14) Objective Last 24 Hour Vital Signs Date Time Temp Pulse Resp B/P (MAP) Pulse Ox O2 Delivery O2 Flow Rate FiO2 04/01/20 11:00 75 17 105/50 (68) 100 04/01/20 10:39 76 18 30 30 04/01/20 10:06 100 04/01/20 10:00 81 21 112/65 (81) 100 04/01/20 09:00 83 17 106/67 (80) 100 04/01/20 08:10 109 127/71 04/01/20 08:00 30 04/01/20 08:00 Mechanical Ventilator 04/01/20 08:00 97.3 102 16 128/67 (87) 100 04/01/20 07:10 24 127/71 Mechanical Ventilator 30 04/01/20 07:06 109 19 30 04/01/20 07:00 103 18 127/71 (89) 100 04/01/20 07:00 24 127/71 Mechanical Ventilator 30 04/01/20 06:45 114 22 110/61 (77) 100 04/01/20 06:30 111 22 04/01/20 06:30 86 21 119/68 (85) 100 04/01/20 06:15 87 21 130/68 (88) 99 04/01/20 06:02 100.0 04/01/20 06:00 21 114/56 Mechanical Ventilator 30 04/01/20 06:00 110 23 114/56 (75) 99 04/01/20 05:45 164 21 131/67 (88) 04/01/20 05:45 22 131/67 Mechanical Ventilator 30 04/01/20 05:32 166 152/80 04/01/20 05:30 166 22 141/75 (97) 04/01/20 05:15 166 24 152/80 (104) 04/01/20 05:00 167 22 144/82 (102) 04/01/20 05:00 23 145/81 Mechanical Ventilator 30 04/01/20 04:45 168 20 130/74 (92) 89 04/01/20 04:30 165 27 141/82 (101) 04/01/20 04:15 169 33 164/86 (112) 04/01/20 04:04 20 156/83 Mechanical Ventilator 30 04/01/20 04:00 100.3 169 26 156/83 (107) 04/01/20 04:00 Mechanical Ventilator 04/01/20 04:00 30 04/01/20 03:45 169 20 154/81 (105) 04/01/20 03:30 169 29 158/86 (110) 04/01/20 03:28 159 33 30 04/01/20 03:19 169 04/01/20 03:15 169 32 149/84 (105) 99 04/01/20 03:00 167 31 156/80 (105) 04/01/20 02:45 168 31 160/75 (103) 98 04/01/20 02:30 168 25 152/73 (99) 98 04/01/20 02:15 148 22 159/76 (103) 98 04/01/20 02:00 140 25 181/74 (109) 85 04/01/20 01:45 136 23 167/74 (105) 100 04/01/20 01:30 122 29 171/73 (105) 100 04/01/20 01:24 123 26 173/86 (115) 100 04/01/20 01:15 114 26 159/99 (119) 100 04/01/20 01:03 112 29 148/64 (92) 100 04/01/20 01:00 108 28 172/69 (103) 100 04/01/20 00:45 97 27 160/86 (110) 100 04/01/20 00:30 93 27 159/79 (105) 100 04/01/20 00:15 93 29 165/69 (101) 100 04/01/20 00:00 99.5 90 27 157/74 (101) 100 04/01/20 00:00 Mechanical Ventilator 03/31/20 23:45 91 26 155/72 (99) 100 03/31/20 23:30 95 31 30 03/31/20 23:30 89 24 151/70 (97) 100 03/31/20 23:15 90 26 154/67 (96) 100 03/31/20 23:05 85 03/31/20 23:00 86 21 149/73 (98) 100 03/31/20 22:45 85 23 141/71 (94) 100 03/31/20 22:30 83 23 143/67 (92) 100 03/31/20 22:15 81 23 146/73 (97) 99 03/31/20 22:00 82 21 143/70 (94) 99 03/31/20 21:45 82 25 99/85 (90) 98 03/31/20 21:30 81 21 137/71 (93) 98 03/31/20 21:15 86 25 148/69 (95) 03/31/20 21:04 89 149/70 03/31/20 21:00 82 16 149/70 (96) 03/31/20 20:45 82 18 153/73 (99) 03/31/20 20:30 94 17 165/73 (103) 03/31/20 20:21 98 169/73 03/31/20 20:15 97 16 169/73 (105) 03/31/20 20:00 Mechanical Ventilator 03/31/20 20:00 30 03/31/20 20:00 98.8 95 23 162/74 (103) 77 03/31/20 19:45 100 22 166/75 (105) 03/31/20 19:41 99 03/31/20 19:30 95 21 149/84 (105) 03/31/20 19:30 100 29 30 03/31/20 19:15 94 20 157/69 (98) 03/31/20 19:00 98 22 151/79 (103) 100 03/31/20 18:00 98.7 88 17 146/68 (94) 100 03/31/20 17:00 109 24 149/60 (89) 100 03/31/20 16:00 128/65 03/31/20 16:00 Mechanical Ventilator 03/31/20 16:00 107 03/31/20 16:00 30 03/31/20 16:00 100.1 114 24 132/89 (103) 93 03/31/20 15:00 106 21 128/65 (86) 97 03/31/20 14:49 110 23 30 03/31/20 14:00 90 21 102/57 (72) 97 03/31/20 13:12 109 121/54 03/31/20 13:00 88 20 106/54 (71) 97 Intake and Output 03/31/20 04/01/20 19:00 07:00 Intake Total 1497.22803 ml 1397.9166 ml Output Total 570 ml 1250 ml Balance 927.31652 ml 147.9166 ml IV Total 1037.24585 ml 817.9166 ml Tube Feeding 410 ml 580 ml Other 50 ml Output Urine Total 520 ml 1100 ml Stool Total 50 ml 150 ml General Appearance: no acute distress HEENT: normocephalic Respiratory: chest wall non-tender, lungs clear Cardiovascular: normal peripheral pulses, normal rate Abdomen: normal bowel sounds Laboratory Tests 03/31/20 17:14: Stool Occult Blood Positive 04/01/20 04:00: White Blood Count 16.8H, Red Blood Count 3.73L, Hemoglobin 9.6L, Hematocrit 31.9L, Mean Corpuscular Volume 86, Mean Corpuscular Hemoglobin 25.8L, Mean Corpuscular Hemoglobin Concent 30.2L, Red Cell Distribution Width 20.5H, Platelet Count 189, Mean Platelet Volume 8.0, Neutrophils (%) (Auto) 84.4H, Lymphocytes (%) (Auto) 5.8L, Monocytes (%) (Auto) 9.2, Eosinophils (%) (Auto) 0.1, Basophils (%) (Auto) 0.5, Sodium Level 147H, Potassium Level 3.1L, Chloride Level 109H, Carbon Dioxide Level 24, Anion Gap 15, Blood Urea Nitrogen 94H, Creatinine 3.0H, Estimat Glomerular Filtration Rate 18.9, Glucose Level 141H, Calcium Level 7.3L, Phosphorus Level 3.8, Magnesium Level 1.8, Total Bilirubin 0.6, Aspartate Amino Transf (AST/SGOT) 35, Alanine Aminotransferase ( ALT/SGPT) 15, Alkaline Phosphatase 155H, Total Protein 5.8L, Albumin 1.8L, Globulin 4.0, Albumin/Globulin Ratio 0.4L, Random Vancomycin Level 15.8 Current Medications Medications (Trade) Dose Ordered Sig/Debbie Route PRN Reason Start Time Stop Time Status Last Admin Dose Admin Acetaminophen (Tylenol) 650 mg Q4H PRN ORAL Temp >100.5 03/26/20 21:15 04/25/20 21:14 04/01/20 05:32 Acetaminophen (Tylenol) 650 mg Q4H PRN ORAL Mild Pain (Pain Scale 1-3) 03/26/20 21:15 04/25/20 21:14 Al Hydroxide/Mg Hydroxide (Mylanta II) 30 ml Q6H PRN ORAL dyspepsia 03/26/20 21:15 04/25/20 21:14 Bisacodyl (Dulcolax) 10 mg HSPRN PRN RECTAL Constipation 03/26/20 21:15 06/24/20 21:14 Cefepime HCl 1 gm/ Dextrose 55 ml @ 110 mls/hr Q24H IVPB 03/28/20 15:00 04/04/20 14:59 03/31/20 15:00 Chlorhexidine Gluconate (Laurie-Hex 2%) 1 applic DAILY@2000 TOPIC 03/28/20 20:00 06/26/20 19:59 03/31/20 20:20 Dextrose (Dextrose 50%) 25 ml Q30M PRN IV Hypoglycemia 03/26/20 21:15 06/24/20 21:14 Dextrose (Dextrose 50%) 50 ml Q30M PRN IV Hypoglycemia 03/26/20 21:15 06/24/20 21:14 Diltiazem HCl (Cardizem) 60 mg EVERY 8 HOURS NG 03/31/20 14:00 04/30/20 13:59 04/01/20 05:32 Diphenhydramine HCl (Benadryl) 25 mg Q6H PRN ORAL Itching/Pruritis 03/26/20 21:15 04/25/20 21:14 Docusate Sodium (Colace) 100 mg Q12HR NG 03/30/20 09:00 04/29/20 08:59 04/01/20 08:09 Fentanyl Citrate 250 ml @ 0 mls/hr Q24H IV 04/01/20 04:00 06/30/20 03:59 04/01/20 04:04 Gabapentin (Neurontin) 300 mg BEDTIME ORAL 03/27/20 21:00 04/26/20 20:59 03/31/20 20:21 Lorazepam (Ativan 2mg/ml 1ml) 0.5 mg Q4H PRN IV For Anxiety 04/01/20 13:15 04/08/20 13:14 Magnesium Hydroxide (Mom) 30 ml HSPRN PRN ORAL Constipation 03/26/20 21:15 04/25/20 21:14 Metoclopramide HCl (Reglan) 10 mg Q6H PRN IVP Nausea & Vomiting 03/26/20 21:15 04/25/20 21:14 Metoprolol Tartrate (Lopressor) 100 mg EVERY 12 HOURS ORAL 03/27/20 09:00 06/25/20 08:59 04/01/20 08:10 Metronidazole 100 ml @ 100 mls/hr Q8HR IVPB 03/27/20 22:00 04/03/20 21:59 04/01/20 05:31 Morphine Sulfate (Morphine Sulfate) 2 mg Q4H PRN IVP Moderate Pain (Pain Scale 4-6) 04/01/20 13:15 04/08/20 13:14 Morphine Sulfate (Morphine Sulfate) 4 mg Q4H PRN IVP Severe Pain (Pain Scale 7-10) 04/01/20 13:15 04/08/20 13:14 Norepinephrine Bitartrate 4 mg/ Dextrose 250 ml @ 0 mls/hr Q24H IV 03/28/20 16:00 04/27/20 15:59 Ondansetron HCl (Zofran) 4 mg Q6H PRN IVP Nausea & Vomiting 03/26/20 21:15 04/25/20 21:14 Pantoprazole (Protonix) 40 mg DAILY IVP 04/01/20 09:00 05/01/20 08:59 04/01/20 08:09 Polyethylene Glycol (Miralax) 17 gm HSPRN PRN ORAL Constipation 03/26/20 21:15 04/25/20 21:14 Potassium Chloride (K-Dur) 40 meq BID NG 04/01/20 09:00 04/01/20 18:01 04/01/20 08:10 Rivaroxaban (Xarelto) 15 mg DAILY NG 03/31/20 09:00 06/29/20 08:59 04/01/20 08:10 Sevelamer Carbonate (Renvela) 1,600 mg THREE TIMES A DAY NG 03/31/20 09:00 06/27/20 08:59 04/01/20 08:09 Sodium Chloride 1,000 ml @ 50 mls/hr Q20H IV 03/30/20 14:45 04/29/20 14:44 04/01/20 05:31 Temazepam (Restoril) 15 mg HSPRN PRN ORAL Insomnia 04/01/20 10:15 04/08/20 10:14 Vancomycin HCl (Vanco pharmacy to dose) 1 ea DAILY PRN MISC Per rx protocol 03/27/20 20:15 04/26/20 20:14 Assessment/Plan Assessment/Plan IMPRESSION: 1. Hyperkalemia. Corrected 2. Sinus tachycardia. 3. Sepsis 4. Hypertension. 5. Seizure disorder. 6. Acute renal failure. 7. Respiratory failure DISCUSSION: Continue ICU care Correction of electrolytes Now on 30% FiO2 Weaning in progress Abx Seven Yao Omar Syed MD Apr 01, 2020 13:00
[2020-04-01] MEDS ORDERED: LORazepam Inj 2mg/ml 1ml IV PRN (13:15)
--- NOTE | 2020-04-01 14:00 | NUR ---
NURSE NOTES: Scheduled medications given. Patient resting in bed, asleep. No s/s of distress will continue to monitor.
--- NOTE | 2020-04-01 14:01 | Internal Med Progress Note ---
Subjective Date of Service: Apr 01, 2020 Physician Name DenzelCami Attending Physician Malathi Mendez MD Current Medications Medications (Trade) Dose Ordered Sig/Debbie Route PRN Reason Start Time Stop Time Status Last Admin Dose Admin Acetaminophen (Tylenol) 650 mg Q4H PRN ORAL Temp >100.5 03/26/20 21:15 04/25/20 21:14 04/01/20 05:32 Acetaminophen (Tylenol) 650 mg Q4H PRN ORAL Mild Pain (Pain Scale 1-3) 03/26/20 21:15 04/25/20 21:14 Al Hydroxide/Mg Hydroxide (Mylanta II) 30 ml Q6H PRN ORAL dyspepsia 03/26/20 21:15 04/25/20 21:14 Bisacodyl (Dulcolax) 10 mg HSPRN PRN RECTAL Constipation 03/26/20 21:15 06/24/20 21:14 Cefepime HCl 1 gm/ Dextrose 55 ml @ 110 mls/hr Q24H IVPB 03/28/20 15:00 04/04/20 14:59 03/31/20 15:00 Chlorhexidine Gluconate (Laurie-Hex 2%) 1 applic DAILY@2000 TOPIC 03/28/20 20:00 06/26/20 19:59 03/31/20 20:20 Dextrose (Dextrose 50%) 25 ml Q30M PRN IV Hypoglycemia 03/26/20 21:15 06/24/20 21:14 Dextrose (Dextrose 50%) 50 ml Q30M PRN IV Hypoglycemia 03/26/20 21:15 06/24/20 21:14 Diltiazem HCl (Cardizem) 60 mg EVERY 8 HOURS NG 03/31/20 14:00 04/30/20 13:59 04/01/20 13:55 Diphenhydramine HCl (Benadryl) 25 mg Q6H PRN ORAL Itching/Pruritis 03/26/20 21:15 04/25/20 21:14 Docusate Sodium (Colace) 100 mg Q12HR NG 03/30/20 09:00 04/29/20 08:59 04/01/20 08:09 Fentanyl Citrate 250 ml @ 0 mls/hr Q24H IV 04/01/20 04:00 06/30/20 03:59 04/01/20 04:04 Gabapentin (Neurontin) 300 mg BEDTIME ORAL 03/27/20 21:00 04/26/20 20:59 03/31/20 20:21 Lorazepam (Ativan 2mg/ml 1ml) 0.5 mg Q4H PRN IV For Anxiety 04/01/20 13:15 04/08/20 13:14 Magnesium Hydroxide (Mom) 30 ml HSPRN PRN ORAL Constipation 03/26/20 21:15 04/25/20 21:14 Metoclopramide HCl (Reglan) 10 mg Q6H PRN IVP Nausea & Vomiting 03/26/20 21:15 04/25/20 21:14 Metoprolol Tartrate (Lopressor) 100 mg EVERY 12 HOURS ORAL 03/27/20 09:00 06/25/20 08:59 04/01/20 08:10 Metronidazole 100 ml @ 100 mls/hr Q8HR IVPB 03/27/20 22:00 04/03/20 21:59 04/01/20 13:55 Morphine Sulfate (Morphine Sulfate) 2 mg Q4H PRN IVP Moderate Pain (Pain Scale 4-6) 04/01/20 13:15 04/08/20 13:14 Morphine Sulfate (Morphine Sulfate) 4 mg Q4H PRN IVP Severe Pain (Pain Scale 7-10) 04/01/20 13:15 04/08/20 13:14 Norepinephrine Bitartrate 4 mg/ Dextrose 250 ml @ 0 mls/hr Q24H IV 03/28/20 16:00 04/27/20 15:59 Ondansetron HCl (Zofran) 4 mg Q6H PRN IVP Nausea & Vomiting 03/26/20 21:15 04/25/20 21:14 Pantoprazole (Protonix) 40 mg DAILY IVP 04/01/20 09:00 05/01/20 08:59 04/01/20 08:09 Polyethylene Glycol (Miralax) 17 gm HSPRN PRN ORAL Constipation 03/26/20 21:15 04/25/20 21:14 Potassium Chloride (K-Dur) 40 meq BID NG 04/01/20 09:00 04/01/20 18:01 04/01/20 08:10 Rivaroxaban (Xarelto) 15 mg DAILY NG 03/31/20 09:00 06/29/20 08:59 04/01/20 08:10 Sevelamer Carbonate (Renvela) 1,600 mg THREE TIMES A DAY NG 03/31/20 09:00 06/27/20 08:59 04/01/20 13:54 Sodium Chloride 1,000 ml @ 50 mls/hr Q20H IV 03/30/20 14:45 04/29/20 14:44 04/01/20 05:31 Temazepam (Restoril) 15 mg HSPRN PRN ORAL Insomnia 04/01/20 10:15 04/08/20 10:14 Vancomycin HCl ([facility] pharmacy to dose) 1 ea DAILY PRN MISC Per rx protocol 03/27/20 20:15 04/26/20 20:14 Allergies: Coded Allergies: LISINOPRIL (Verified Allergy, Unknown, Hives, 04/12/14) Subjective Patient currently being weened off vent; She is tolerating well. Fentanyl was started this am for tachcyardia, but currently she is off; presumed to be from agitation. She has a mild fever of 100.5 earlier. Appreciate team. Objective Last Vital Signs Date Time Temp Pulse Resp B/P (MAP) Pulse Ox O2 Delivery O2 Flow Rate FiO2 04/01/20 13:55 81 117/53 04/01/20 13:00 19 100 04/01/20 12:00 Mechanical Ventilator 04/01/20 12:00 97.8 04/01/20 10:39 30 30 03/28/20 00:54 2.0 Laboratory Tests Test 03/31/20 17:14 04/01/20 04:00 Stool Occult Blood Positive (NEGATIVE) White Blood Count 16.8 K/UL (4.8-10.8) H Red Blood Count 3.73 M/UL (4.20-5.40) L Hemoglobin 9.6 G/DL (12.0-16.0) L Hematocrit 31.9 % (37.0-47.0) L Mean Corpuscular Volume 86 FL (80-99) Mean Corpuscular Hemoglobin 25.8 PG (27.0-31.0) L Mean Corpuscular Hemoglobin Concent 30.2 G/DL (32.0-36.0) L Red Cell Distribution Width 20.5 % (11.6-14.8) H Platelet Count 189 K/UL (150-450) Mean Platelet Volume 8.0 FL (6.5-10.1) Neutrophils (%) (Auto) 84.4 % (45.0-75.0) H Lymphocytes (%) (Auto) 5.8 % (20.0-45.0) L Monocytes (%) (Auto) 9.2 % (1.0-10.0) Eosinophils (%) (Auto) 0.1 % (0.0-3.0) Basophils (%) (Auto) 0.5 % (0.0-2.0) Sodium Level 147 MMOL/L (136-145) H Potassium Level 3.1 MMOL/L (3.5-5.1) L Chloride Level 109 MMOL/L (98-107) H Carbon Dioxide Level 24 MMOL/L (21-32) Anion Gap 15 mmol/L (5-15) Blood Urea Nitrogen 94 mg/dL (7-18) H Creatinine 3.0 MG/DL (0.55-1.30) H Estimat Glomerular Filtration Rate 18.9 mL/min (>60) Glucose Level 141 MG/DL (74-106) H Calcium Level 7.3 MG/DL (8.5-10.1) L Phosphorus Level 3.8 MG/DL (2.5-4.9) Magnesium Level 1.8 MG/DL (1.8-2.4) Total Bilirubin 0.6 MG/DL (0.2-1.0) Aspartate Amino Transf (AST/SGOT) 35 U/L (15-37) Alanine Aminotransferase (ALT/SGPT) 15 U/L (12-78) Alkaline Phosphatase 155 U/L (46-116) H Total Protein 5.8 G/DL (6.4-8.2) L Albumin 1.8 G/DL (3.4-5.0) L Globulin 4.0 g/dL Albumin/Globulin Ratio 0.4 (1.0-2.7) L Random Vancomycin Level 15.8 ug/mL Intake and Output 03/31/20 04/01/20 19:00 07:00 Intake Total 1497.87744 ml 1397.9166 ml Output Total 570 ml 1250 ml Balance 927.17821 ml 147.9166 ml IV Total 1037.33321 ml 817.9166 ml Tube Feeding 410 ml 580 ml Other 50 ml Output Urine Total 520 ml 1100 ml Stool Total 50 ml 150 ml Objective General Appearance: other - Intubated, ET tube in place EENT: PERRL/EOMI Cardiovascular: arrhythmia, irregularly irregular Respiratory/Chest: other - Vented lung sounds, Fi02 35% Abdomen: non tender, soft Edema: mild edema Neurologic: search specialist II-XII grossly normal Skin: warm/dry Assessment/Plan Assessment/Plan Assessment #Acute Hypoxic Resp Failure #Afib w/ RVR, now in SR, off heparin gtt #Acute Renal Failure 2/2 ATN from Rhabo --> BUN and creatinine still very elevated, consider HD if concern of Uremic Encephalopathy #Rhabdo #Sepsis, HCAP/UTI, COVID negative #Seizure?; will f/u Plan Appreciate Consultants and ICU team Weening Trials Vancomyin, Cefepime, Flagyl, Winters Cx Diltiazem drip prn, now in SR, heparin gtt dc, on Xarelto and Metoprolol IVF per Nephro, may require HD given renal function but output good DVT and GI ppx; Tube Feeds * Will need to follow up why patient had Rhabdo? if Seizure hx could be uncontrolled seizure and then a neuro consult would be needed. Will look into 04/01: Continue to ween off vent; Supportive measures. Cami Mahoney D.O. Apr 01, 2020 14:01
[2020-04-01] MEDS: Cefepime HCl 1 GM in D5W 55 ML IVPB SCH (15:15)
--- NOTE | 2020-04-01 15:30 | NUR ---
NURSE NOTES: Patient tolerated weaning x5hrs; placed back on AC mode by RT. No distress at this time. Will continue to monitor.
--- NOTE | 2020-04-01 16:00 | NUR ---
NURSE NOTES: Complete bed bath given to patient. Optifoam dressings changed, replaced linens and pt gown. Oral care provided, suctioned via ETT with small amount of sputum noted. Fentanyl resumed at 150mcg/hr post weaning; 1/2 NS remains at 50ml/hr. Patient remains awake and calm, RASS at 0. No s/s of distress at this time. Will continue to monitor.
--- NOTE | 2020-04-01 18:00 | NUR ---
NURSE NOTES: Patient remains orally intubated, tolerating vent settings. No respiratory distress at this time. Patient remains arousable to verbal stimuli, RASS 0 calm, still follows simple commands by nodding and making needs known using pen and paper provided. Patient remains on Fentanyl drip at 150mcg/hr and 1/2 NS at 50ml/hr infusing on left upper arm PICC line. Left EJ intact and patent. Patient's NGT on the right nares intact, infusing Vital AF 1.2 at 55ml/hr. HOB elevated for aspiration precautions. Colostomy bag emptied. Left patient clean and dry. Will continue to monitor.
--- NOTE | 2020-04-01 19:12 | NUR ---
HAND-OFF: Report given to JOSSELYN Juan. Endorsed plan of care.
--- NOTE | 2020-04-01 20:00 | NUR ---
NURSE NOTES: received report from sathish castañeda pt orally intubated -vent sat 100 % ON LEVO DRIP AT 18MCG/MIN SEDATED ON FENT [id number]/HR ROSS-2 WHE05CGNP /KG/HR REPOSITION AND SUCTION
[2020-04-01] MEDS: Dyna-Hex 2% Top Sol 2oz TOPIC SCH (20:41)
--- NOTE | 2020-04-01 20:49 | Cardiology Progress Note ---
Assessment/Plan Status: stable Assessment/Plan Assessment/Plan Problem List: (1) Atrial flutter ICD Codes: I48.92 - Unspecified atrial flutter SNOMED: 2345648 (2) Hypertension ICD Codes: I10 - Essential (primary) hypertension SNOMED: 05255144 (3) Hyperkalemia ICD Codes: E87.5 - Hyperkalemia SNOMED: 65254032 (4) Acute encephalopathy ICD Codes: G93.40 - Encephalopathy, unspecified SNOMED: 3218388 (5) Acute and chronic respiratory failure with hypoxia ICD Codes: J96.21 - Acute and chronic respiratory failure with hypoxia SNOMED: 78951550, 594293122 (6) VENTURA (acute kidney injury) ICD Codes: N17.9 - Acute kidney failure, unspecified SNOMED: 4827975, 16648715 Status: deteriorating AFIB - resolved -D/c cardizem IV -> transition to PO -D/c heparin -Start DOAC xarelto -Echocardiogram with normal LV function Elevated BNP -CXR clear -No signs of LV fluid overload, wll monitor right sided filling pressures -Hold diuresis for now given VENTURA/CKD/Rhabdo -IV fluids for sepsis and hypotension Critical care 40 minutes Subjective Cardiovascular: Reports: no symptoms Respiratory: Reports: no symptoms Gastrointestinal/Abdominal: Reports: no symptoms Subjective Continues to be sedated and intubated in ICU On cardizem via NGT, Remains in normal sinus Objective Last 24 Hour Vital Signs Date Time Temp Pulse Resp B/P (MAP) Pulse Ox O2 Delivery O2 Flow Rate FiO2 04/01/20 20:44 87 167/78 04/01/20 20:42 87 167/78 04/01/20 19:59 97 16 30 04/01/20 19:00 89 17 130/56 (80) 100 04/01/20 19:00 18 130/56 Mechanical Ventilator 30 04/01/20 18:00 19 125/56 Mechanical Ventilator 30 04/01/20 18:00 92 19 125/56 (79) 100 04/01/20 17:00 88 23 133/59 (83) 100 04/01/20 17:00 23 133/59 Mechanical Ventilator 30 04/01/20 16:30 84 17 130/61 (84) 100 04/01/20 16:00 90 04/01/20 16:00 21 132/71 Mechanical Ventilator 30 04/01/20 16:00 30 04/01/20 16:00 98.6 89 21 132/71 (91) 100 04/01/20 16:00 Mechanical Ventilator 04/01/20 15:45 133/63 04/01/20 15:30 15 133/63 Mechanical Ventilator 30 04/01/20 15:09 90 18 30 04/01/20 15:00 91 17 135/60 (85) 100 04/01/20 14:00 81 17 124/62 (82) 100 04/01/20 13:55 81 117/53 04/01/20 13:00 83 19 122/61 (81) 100 04/01/20 12:00 30 04/01/20 12:00 Mechanical Ventilator 04/01/20 12:00 97.8 80 18 111/58 (75) 100 04/01/20 11:00 75 17 105/50 (68) 100 04/01/20 10:39 76 18 30 30 04/01/20 10:06 100 04/01/20 10:00 81 21 112/65 (81) 100 04/01/20 09:00 83 17 106/67 (80) 100 04/01/20 08:10 109 127/71 04/01/20 08:00 106 04/01/20 08:00 30 04/01/20 08:00 Mechanical Ventilator 04/01/20 08:00 97.3 102 16 128/67 (87) 100 04/01/20 07:10 24 127/71 Mechanical Ventilator 30 04/01/20 07:06 109 19 30 04/01/20 07:00 103 18 127/71 (89) 100 04/01/20 07:00 24 127/71 Mechanical Ventilator 30 04/01/20 06:45 114 22 110/61 (77) 100 04/01/20 06:30 111 22 04/01/20 06:30 86 21 119/68 (85) 100 04/01/20 06:15 87 21 130/68 (88) 99 04/01/20 06:02 100.0 04/01/20 06:00 21 114/56 Mechanical Ventilator 30 04/01/20 06:00 110 23 114/56 (75) 99 04/01/20 05:45 164 21 131/67 (88) 6/14/20 05:45 22 131/67 Mechanical Ventilator 30 04/01/20 05:32 166 152/80 04/01/20 05:30 166 22 141/75 (97) 04/01/20 05:15 166 24 152/80 (104) 04/01/20 05:00 167 22 144/82 (102) 04/01/20 05:00 23 145/81 Mechanical Ventilator 30 04/01/20 04:45 168 20 130/74 (92) 89 04/01/20 04:30 165 27 141/82 (101) 04/01/20 04:15 169 33 164/86 (112) 04/01/20 04:04 20 156/83 Mechanical Ventilator 30 04/01/20 04:00 100.3 169 26 156/83 (107) 04/01/20 04:00 Mechanical Ventilator 04/01/20 04:00 30 04/01/20 03:45 169 20 154/81 (105) 04/01/20 03:30 169 29 158/86 (110) 04/01/20 03:28 159 33 30 04/01/20 03:19 169 04/01/20 03:15 169 32 149/84 (105) 99 04/01/20 03:00 167 31 156/80 (105) 04/01/20 02:45 168 31 160/75 (103) 98 04/01/20 02:30 168 25 152/73 (99) 98 04/01/20 02:15 148 22 159/76 (103) 98 04/01/20 02:00 140 25 181/74 (109) 85 04/01/20 01:45 136 23 167/74 (105) 100 04/01/20 01:30 122 29 171/73 (105) 100 04/01/20 01:24 123 26 173/86 (115) 100 04/01/20 01:15 114 26 159/99 (119) 100 04/01/20 01:03 112 29 148/64 (92) 100 04/01/20 01:00 108 28 172/69 (103) 100 04/01/20 00:45 97 27 160/86 (110) 100 04/01/20 00:30 93 27 159/79 (105) 100 04/01/20 00:15 93 29 165/69 (101) 100 04/01/20 00:00 99.5 90 27 157/74 (101) 100 04/01/20 00:00 Mechanical Ventilator 03/31/20 23:45 91 26 155/72 (99) 100 03/31/20 23:30 95 31 30 03/31/20 23:30 89 24 151/70 (97) 100 03/31/20 23:15 90 26 154/67 (96) 100 03/31/20 23:05 85 03/31/20 23:00 86 21 149/73 (98) 100 03/31/20 22:45 85 23 141/71 (94) 100 03/31/20 22:30 83 23 143/67 (92) 100 03/31/20 22:15 81 23 146/73 (97) 99 03/31/20 22:00 82 21 143/70 (94) 99 03/31/20 21:45 82 25 99/85 (90) 98 03/31/20 21:30 81 21 137/71 (93) 98 03/31/20 21:15 86 25 148/69 (95) 03/31/20 21:04 89 149/70 03/31/20 21:00 82 16 149/70 (96) General Appearance: no apparent distress, on vent EENT: normal ENT inspection, pharynx normal Neck: supple, normal inspection, no JVD Rhythm: NSR Cardiovascular: normal peripheral pulses, normal rate, regular rhythm Respiratory/Chest: chest wall non-tender, normal breath sounds Abdomen: normal bowel sounds, non tender, no mass Extremities: normal range of motion, normal inspection Neurologic: mushroom laborer II-XII grossly normal Intake and Output 03/31/20 04/01/20 19:00 07:00 Intake Total 1497.65083 ml 1397.9166 ml Output Total 570 ml 1250 ml Balance 927.08817 ml 147.9166 ml IV Total 1037.45805 ml 817.9166 ml Tube Feeding 410 ml 580 ml Other 50 ml Output Urine Total 520 ml 1100 ml Stool Total 50 ml 150 ml Laboratory Tests Test 04/01/20 04:00 White Blood Count 16.8 K/UL (4.8-10.8) H Red Blood Count 3.73 M/UL (4.20-5.40) L Hemoglobin 9.6 G/DL (12.0-16.0) L Hematocrit 31.9 % (37.0-47.0) L Mean Corpuscular Volume 86 FL (80-99) Mean Corpuscular Hemoglobin 25.8 PG (27.0-31.0) L Mean Corpuscular Hemoglobin Concent 30.2 G/DL (32.0-36.0) L Red Cell Distribution Width 20.5 % (11.6-14.8) H Platelet Count 189 K/UL (150-450) Mean Platelet Volume 8.0 FL (6.5-10.1) Neutrophils (%) (Auto) 84.4 % (45.0-75.0) H Lymphocytes (%) (Auto) 5.8 % (20.0-45.0) L Monocytes (%) (Auto) 9.2 % (1.0-10.0) Eosinophils (%) (Auto) 0.1 % (0.0-3.0) Basophils (%) (Auto) 0.5 % (0.0-2.0) Sodium Level 147 MMOL/L (136-145) H Potassium Level 3.1 MMOL/L (3.5-5.1) L Chloride Level 109 MMOL/L (98-107) H Carbon Dioxide Level 24 MMOL/L (21-32) Anion Gap 15 mmol/L (5-15) Blood Urea Nitrogen 94 mg/dL (7-18) H Creatinine 3.0 MG/DL (0.55-1.30) H Estimat Glomerular Filtration Rate 18.9 mL/min (>60) Glucose Level 141 MG/DL (74-106) H Calcium Level 7.3 MG/DL (8.5-10.1) L Phosphorus Level 3.8 MG/DL (2.5-4.9) Magnesium Level 1.8 MG/DL (1.8-2.4) Total Bilirubin 0.6 MG/DL (0.2-1.0) Aspartate Amino Transf (AST/SGOT) 35 U/L (15-37) Alanine Aminotransferase (ALT/SGPT) 15 U/L (12-78) Alkaline Phosphatase 155 U/L (46-116) H Total Protein 5.8 G/DL (6.4-8.2) L Albumin 1.8 G/DL (3.4-5.0) L Globulin 4.0 g/dL Albumin/Globulin Ratio 0.4 (1.0-2.7) L Random Vancomycin Level 15.8 ug/mL Rafat Crooks MD Apr 01, 2020 20:49
[2020-04-01] MEDS: Morphine Sulfate 4mg/ml Inj (IV USE ONLY) IVP PRN (20:51)
[2020-04-02] VITALS (53 sets, daily range): BP systolic 107–175; BP diastolic 49–115
--- NOTE | 2020-04-02 | NUR ---
NURSE NOTES: BS 457 ON 6UNIT /HR FIXED RATE PER MD ORDER
[2020-04-02] MEDS: fentaNYL 2500mcg/NS 250ml 250 ML IV SCH ×3 (01:14→14:38)
[2020-04-02] MEDS: Morphine Sulfate 4mg/ml Inj (IV USE ONLY) IVP PRN ×2 (01:35→21:15)
--- NOTE | 2020-04-02 04:00 | NUR ---
NURSE NOTES: complete bed bath
[2020-04-02] MEDS: dilTIAZem HCl 60mg tab NG SCH ×3 (06:26→21:38)
[2020-04-02 06:30] LABS: BASOPHILS % (AUTO) 1.4 % (0.0-2.0); EOSINOPHILS % (AUTO) 0.1 % (0.0-3.0); HEMATOCRIT 33.6 % (37.0-47.0); HEMOGLOBIN 9.8 G/DL (12.0-16.0); LYMPHOCYTES % (AUTO) 6.3 % (20.0-45.0); MEAN CORPUSCULAR VOLUME 89 FL (80-99); MONOCYTES % (AUTO) 10.5 % (1.0-10.0); NEUTROPHILS % (AUTO) 81.7 % (45.0-75.0); PLATELET COUNT 189 K/UL (150-450); RED BLOOD COUNT 3.77 M/UL (4.20-5.40); RED CELL DISTRIBUTION WIDTH 21.3 % (11.6-14.8); WHITE BLOOD COUNT 16.8 K/UL (4.8-10.8)
--- NOTE | 2020-04-02 07:30 | NUR ---
HAND-OFF: Report given to .chata castañeda using sbar
[2020-04-02 07:38] LABS: ALANINE AMINOTRANSFERASE 21 U/L (12-78); ALBUMIN 1.9 G/DL (3.4-5.0); ALBUMIN/GLOBULIN RATIO 0.6 (1.0-2.7); ALKALINE PHOSPHATASE 142 U/L (46-116); ANION GAP 15 mmol/L (5-15); ASPARTATE AMINO TRANSFERASE 37 U/L (15-37); BILIRUBIN,TOTAL 0.5 MG/DL (0.2-1.0); BLOOD UREA NITROGEN 89 mg/dL (7-18); CALCIUM 7.9 MG/DL (8.5-10.1); CARBON DIOXIDE 22 MMOL/L (21-32); CHLORIDE 111 MMOL/L (98-107); CREATININE 2.4 MG/DL (0.55-1.30); PHOSPHORUS 3.7 MG/DL (2.5-4.9); POTASSIUM 4.8 MMOL/L (3.5-5.1); SODIUM 148 MMOL/L (136-145)
--- NOTE | 2020-04-02 07:46 | NUR ---
RESPIRATORY NOTES: Weaning started at SPON PS +8 PEEP +5 FIO2 30% at 0745. No sign of RESP DISTRESS. RSBI 34, VT 825, RR 20, HR 104, SATS 99%. Patient doing well. Only concern is that patient has a large amount of thick wagner secretions. Will continue to closely monitor patient.
--- NOTE | 2020-04-02 07:55 | NUR ---
NURSE NOTES: Patient placed on weaning trial with CPAP on PS of 8, Peep of 5 and FIo2 of 30%. patient remains saturations at 98-99% with no distress noted.
[2020-04-02] MEDS: Xarelto 15mg tab NG SCH (08:36)
[2020-04-02] MEDS: Docusate 100mg/10ml Liq NG SCH ×2 (08:37→20:32)
[2020-04-02] MEDS: Metoprolol Tartrate 100mg tab ORAL SCH (08:37)
[2020-04-02] MEDS: Pantoprazole Inj IVP SCH (08:37)
[2020-04-02] MEDS: Renvela 800mg Pkt NG SCH ×3 (08:37→17:48)
[2020-04-02] MEDS ORDERED: Vancomycin 1gm/D5W 275ml IVPB ONE ×2 (09:00)
--- NOTE | 2020-04-02 09:00 | NUR ---
NURSE NOTES: Dr. Cordova called to place order for ABG to assess patient weaning trial. patient remains on CPAP with PS of 8, FIO2 30% with Peep of 5.
--- NOTE | 2020-04-02 10:15 | NUR ---
NURSE NOTES: Dr. Cordova made aware of patient respiratory status while weaning, remains stable with setting of CPAP, PS 8, FIo2 30% with peep of 5. ordered to place patient on T-tube trial. no further order given at this time.
--- NOTE | 2020-04-02 10:37 | Nephrology Progress Note ---
Assessment/Plan Plan #VENTURA due to ATN in the setting of rhabdo- on CKD #hyperkalemia #Rhabdo #UTI sepsis #Lactic acidsis #AMS - toxic metabolic encephalopathy #Hypoxemic resp failure #afib with RVR #HLD #Obesity - D5W 500 x1 - monitor UOP - continue 1/2NS at 50cc/hr -Hr better controlled -continue sevelamer - metop per Cardiology - add diltiazem 60mg TID - monitor K,bmp - will discuss need for HD if no improvement with hydration - weiss placed - strict I&Os - vent management per Dr. Cordova - cardiology eval - 2d echo - ID consult - vanco and cefepime - follow cx - monitor BMP, mag and phos daily 30 minutes of critical care time- greater than 50% on care coordination and counseling Subjective ROS Limited/Unobtainable: Yes Subjective Cr slowly downtrending remains intubated Hr better controlled sodium uptrending will give D5w 500cc today Objective Objective Last 24 Hour Vital Signs Date Time Temp Pulse Resp B/P (MAP) Pulse Ox O2 Delivery O2 Flow Rate FiO2 04/02/20 10:30 30 04/02/20 08:37 99 152/61 04/02/20 07:49 100 04/02/20 07:45 101 24 30 30 04/02/20 06:48 111 22 04/02/20 06:26 85 148/75 04/02/20 06:24 18 157/78 Mechanical Ventilator 30 04/02/20 06:00 20 148/74 Non-Rebreather 30 04/02/20 06:00 104 22 147/71 (96) 99 04/02/20 05:30 106 22 164/92 (116) 97 04/02/20 05:08 20 173/74 Mechanical Ventilator 100 04/02/20 05:00 111 24 175/74 (107) 94 04/02/20 05:00 24 148/68 Mechanical Ventilator 30 04/02/20 04:30 101 26 152/68 (96) 96 04/02/20 04:00 30 04/02/20 04:00 98.9 105 26 148/68 (94) 99 04/02/20 04:00 Mechanical Ventilator 04/02/20 04:00 24 153/66 Mechanical Ventilator 30 04/02/20 04:00 102 04/02/20 03:30 95 22 152/66 (94) 99 04/02/20 03:19 101 26 30 04/02/20 03:00 99 25 132/49 (76) 100 04/02/20 03:00 18 130/65 Mechanical Ventilator 30.0 30 04/02/20 02:30 93 20 152/76 (101) 99 04/02/20 02:00 21 141/81 Mechanical Ventilator 30 04/02/20 02:00 98 22 150/84 (106) 100 04/02/20 01:00 93 22 147/72 (97) 99 04/02/20 01:00 24 147/72 Mechanical Ventilator 30 04/02/20 00:00 Mechanical Ventilator 04/02/20 00:00 100 04/02/20 00:00 98.2 92 20 135/70 (91) 99 04/02/20 00:00 24 135/70 Mechanical Ventilator 30 04/02/20 00:00 30 04/01/20 23:47 88 27 30 04/01/20 23:00 20 130/58 Mechanical Ventilator 30 04/01/20 23:00 82 15 131/68 (89) 99 04/01/20 22:00 19 120/64 Mechanical Ventilator 30 04/01/20 22:00 73 15 123/65 (84) 99 04/01/20 21:00 90 23 124/73 (90) 99 04/01/20 21:00 17 115/65 Mechanical Ventilator 30 04/01/20 20:44 87 167/78 04/01/20 20:42 87 167/78 04/01/20 20:00 98.4 95 20 146/75 (98) 100 04/01/20 20:00 98 04/01/20 20:00 Mechanical Ventilator 04/01/20 20:00 20 146/73 Mechanical Ventilator 30 04/01/20 20:00 30 04/01/20 19:59 97 16 30 04/01/20 19:00 89 17 130/56 (80) 100 04/01/20 19:00 18 130/56 Mechanical Ventilator 30 04/01/20 18:00 19 125/56 Mechanical Ventilator 30 04/01/20 18:00 92 19 125/56 (79) 100 04/01/20 17:00 88 23 133/59 (83) 100 04/01/20 17:00 23 133/59 Mechanical Ventilator 30 04/01/20 16:30 84 17 130/61 (84) 100 04/01/20 16:00 90 04/01/20 16:00 21 132/71 Mechanical Ventilator 30 04/01/20 16:00 30 04/01/20 16:00 98.6 89 21 132/71 (91) 100 04/01/20 16:00 Mechanical Ventilator 04/01/20 15:45 133/63 04/01/20 15:30 15 133/63 Mechanical Ventilator 30 04/01/20 15:09 90 18 30 04/01/20 15:00 91 17 135/60 (85) 100 04/01/20 14:00 81 17 124/62 (82) 100 04/01/20 13:55 81 117/53 04/01/20 13:00 83 19 122/61 (81) 100 04/01/20 12:00 30 04/01/20 12:00 Mechanical Ventilator 04/01/20 12:00 97.8 80 18 111/58 (75) 100 04/01/20 11:00 75 17 105/50 (68) 100 04/01/20 10:39 76 18 30 30 Intake and Output 04/01/20 04/02/20 19:00 07:00 Intake Total 1892.5 ml 1550 ml Output Total 665 ml 630 ml Balance 1227.5 ml 920 ml Intake Free Water 200 ml IV Total 1082.5 ml 745 ml Tube Feeding 660 ml 605 ml Other 150 ml Output Urine Total 565 ml 630 ml Stool Total 100 ml # Bowel Movements 50 Laboratory Tests 04/02/20 04:02: White Blood Count 16.8H, Red Blood Count 3.77L, Hemoglobin 9.8L, Hematocrit 33.6L, Mean Corpuscular Volume 89, Mean Corpuscular Hemoglobin 25.9L, Mean Corpuscular Hemoglobin Concent 29.1L, Red Cell Distribution Width 21.3H, Platelet Count 189, Mean Platelet Volume 6.1L, Neutrophils (%) (Auto) 81.7H, Lymphocytes (%) (Auto) 6.3L, Monocytes (%) (Auto) 10.5H, Eosinophils (%) (Auto) 0.1, Basophils (%) (Auto) 1.4, Sodium Level 148H, Potassium Level 4.8#, Chloride Level 111H, Carbon Dioxide Level 22, Anion Gap 15, Blood Urea Nitrogen 89H, Creatinine 2.4H, Estimat Glomerular Filtration Rate 24.4, Glucose Level 117H, Calcium Level 7.9L, Phosphorus Level 3.7, Magnesium Level 1.8, Total Bilirubin 0.5, Aspartate Amino Transf (AST/SGOT) 37, Alanine Aminotransferase ( ALT/SGPT) 21, Alkaline Phosphatase 142H, Total Protein 5.3L, Albumin 1.9L, Globulin 3.4, Albumin/Globulin Ratio 0.6L, Random Vancomycin Level 18.1 04/02/20 09:02: Arterial Blood pH 7.369, Arterial Blood Partial Pressure CO2 41.5, Arterial Blood Partial Pressure O2 98.6, Arterial Blood HCO3 23.4, Arterial Blood Oxygen Saturation 96.6, Arterial Blood Base Excess -1.8, Kelvin Test Positive Height (Feet): 5 Height (Inches): 6.00 Weight (Pounds): 254 Objective General Appearance: other - intubated Lines, tubes and drains: peripheral HEENT: normocephalic, atraumatic Neck: non-tender, normal alignment, supple Respiratory/Chest: lungs clear Cardiovascular/Chest: normal peripheral pulses, tachycardia, irregularly irregular Abdomen: soft Skin Exam: normal pigmentation Neurologic: disoriented Venkat Montes M.D. Apr 02, 2020 10:37
--- NOTE | 2020-04-02 10:51 | Pulmonology Progress Note ---
Subjective ROS Limited/Unobtainable: Yes Interval Events: Intubated; no new events; weaning well Constitutional: Reports: fever, other - on vent, no pressors HEENT: Repors: no symptoms Respiratory: Reports: no symptoms Cardiovascular: Reports: no symptoms Gastrointestinal/Abdominal: Denies: nausea, vomiting, diarrhea Psychiatric: Reports: other - NA Skin: Denies: rash Musculoskeletal: Reports: other - NA Allergies: Coded Allergies: LISINOPRIL (Verified Allergy, Unknown, Hives, 04/12/14) Objective Last 24 Hour Vital Signs Date Time Temp Pulse Resp B/P (MAP) Pulse Ox O2 Delivery O2 Flow Rate FiO2 04/02/20 10:30 30 04/02/20 08:37 99 152/61 04/02/20 07:49 100 04/02/20 07:45 101 24 30 30 04/02/20 06:48 111 22 04/02/20 06:26 85 148/75 04/02/20 06:24 18 157/78 Mechanical Ventilator 30 04/02/20 06:00 20 148/74 Non-Rebreather 30 04/02/20 06:00 104 22 147/71 (96) 99 04/02/20 05:30 106 22 164/92 (116) 97 04/02/20 05:08 20 173/74 Mechanical Ventilator 100 04/02/20 05:00 111 24 175/74 (107) 94 04/02/20 05:00 24 148/68 Mechanical Ventilator 30 04/02/20 04:30 101 26 152/68 (96) 96 04/02/20 04:00 30 04/02/20 04:00 98.9 105 26 148/68 (94) 99 04/02/20 04:00 Mechanical Ventilator 04/02/20 04:00 24 153/66 Mechanical Ventilator 30 04/02/20 04:00 102 04/02/20 03:30 95 22 152/66 (94) 99 04/02/20 03:19 101 26 30 04/02/20 03:00 99 25 132/49 (76) 100 04/02/20 03:00 18 130/65 Mechanical Ventilator 30.0 30 04/02/20 02:30 93 20 152/76 (101) 99 04/02/20 02:00 21 141/81 Mechanical Ventilator 30 04/02/20 02:00 98 22 150/84 (106) 100 04/02/20 01:00 93 22 147/72 (97) 99 04/02/20 01:00 24 147/72 Mechanical Ventilator 30 04/02/20 00:00 Mechanical Ventilator 04/02/20 00:00 100 04/02/20 00:00 98.2 92 20 135/70 (91) 99 04/02/20 00:00 24 135/70 Mechanical Ventilator 30 04/02/20 00:00 30 04/01/20 23:47 88 27 30 04/01/20 23:00 20 130/58 Mechanical Ventilator 30 04/01/20 23:00 82 15 131/68 (89) 99 04/01/20 22:00 19 120/64 Mechanical Ventilator 30 04/01/20 22:00 73 15 123/65 (84) 99 04/01/20 21:00 90 23 124/73 (90) 99 04/01/20 21:00 17 115/65 Mechanical Ventilator 30 04/01/20 20:44 87 167/78 04/01/20 20:42 87 167/78 04/01/20 20:00 98.4 95 20 146/75 (98) 100 04/01/20 20:00 98 04/01/20 20:00 Mechanical Ventilator 04/01/20 20:00 20 146/73 Mechanical Ventilator 30 04/01/20 20:00 30 04/01/20 19:59 97 16 30 04/01/20 19:00 89 17 130/56 (80) 100 04/01/20 19:00 18 130/56 Mechanical Ventilator 30 04/01/20 18:00 19 125/56 Mechanical Ventilator 30 04/01/20 18:00 92 19 125/56 (79) 100 04/01/20 17:00 88 23 133/59 (83) 100 04/01/20 17:00 23 133/59 Mechanical Ventilator 30 04/01/20 16:30 84 17 130/61 (84) 100 04/01/20 16:00 90 04/01/20 16:00 21 132/71 Mechanical Ventilator 30 04/01/20 16:00 30 04/01/20 16:00 98.6 89 21 132/71 (91) 100 04/01/20 16:00 Mechanical Ventilator 04/01/20 15:45 133/63 04/01/20 15:30 15 133/63 Mechanical Ventilator 30 04/01/20 15:09 90 18 30 04/01/20 15:00 91 17 135/60 (85) 100 04/01/20 14:00 81 17 124/62 (82) 100 04/01/20 13:55 81 117/53 04/01/20 13:00 83 19 122/61 (81) 100 04/01/20 12:00 30 04/01/20 12:00 Mechanical Ventilator 04/01/20 12:00 97.8 80 18 111/58 (75) 100 04/01/20 11:00 75 17 105/50 (68) 100 Intake and Output 04/01/20 04/02/20 19:00 07:00 Intake Total 1892.5 ml 1550 ml Output Total 665 ml 630 ml Balance 1227.5 ml 920 ml Intake Free Water 200 ml IV Total 1082.5 ml 745 ml Tube Feeding 660 ml 605 ml Other 150 ml Output Urine Total 565 ml 630 ml Stool Total 100 ml # Bowel Movements 50 General Appearance: no acute distress HEENT: normocephalic Respiratory: chest wall non-tender, lungs clear Cardiovascular: normal peripheral pulses, normal rate Abdomen: normal bowel sounds Laboratory Tests 04/02/20 04:02: White Blood Count 16.8H, Red Blood Count 3.77L, Hemoglobin 9.8L, Hematocrit 33.6L, Mean Corpuscular Volume 89, Mean Corpuscular Hemoglobin 25.9L, Mean Corpuscular Hemoglobin Concent 29.1L, Red Cell Distribution Width 21.3H, Platelet Count 189, Mean Platelet Volume 6.1L, Neutrophils (%) (Auto) 81.7H, Lymphocytes (%) (Auto) 6.3L, Monocytes (%) (Auto) 10.5H, Eosinophils (%) (Auto) 0.1, Basophils (%) (Auto) 1.4, Sodium Level 148H, Potassium Level 4.8#, Chloride Level 111H, Carbon Dioxide Level 22, Anion Gap 15, Blood Urea Nitrogen 89H, Creatinine 2.4H, Estimat Glomerular Filtration Rate 24.4, Glucose Level 117H, Calcium Level 7.9L, Phosphorus Level 3.7, Magnesium Level 1.8, Total Bilirubin 0.5, Aspartate Amino Transf (AST/SGOT) 37, Alanine Aminotransferase ( ALT/SGPT) 21, Alkaline Phosphatase 142H, Total Protein 5.3L, Albumin 1.9L, Globulin 3.4, Albumin/Globulin Ratio 0.6L, Random Vancomycin Level 18.1 04/02/20 09:02: Arterial Blood pH 7.369, Arterial Blood Partial Pressure CO2 41.5, Arterial Blood Partial Pressure O2 98.6, Arterial Blood HCO3 23.4, Arterial Blood Oxygen Saturation 96.6, Arterial Blood Base Excess -1.8, Kelvin Test Positive Current Medications Medications (Trade) Dose Ordered Sig/Debbie Route PRN Reason Start Time Stop Time Status Last Admin Dose Admin Acetaminophen (Tylenol) 650 mg Q4H PRN ORAL Temp >100.5 03/26/20 21:15 04/25/20 21:14 04/01/20 05:32 Acetaminophen (Tylenol) 650 mg Q4H PRN ORAL Mild Pain (Pain Scale 1-3) 03/26/20 21:15 04/25/20 21:14 Al Hydroxide/Mg Hydroxide (Mylanta II) 30 ml Q6H PRN ORAL dyspepsia 03/26/20 21:15 04/25/20 21:14 Bisacodyl (Dulcolax) 10 mg HSPRN PRN RECTAL Constipation 03/26/20 21:15 06/24/20 21:14 Cefepime HCl 1 gm/ Dextrose 55 ml @ 110 mls/hr Q24H IVPB 03/28/20 15:00 04/04/20 14:59 04/01/20 15:15 Chlorhexidine Gluconate (Laurie-Hex 2%) 1 applic DAILY@2000 TOPIC 03/28/20 20:00 06/26/20 19:59 04/01/20 20:41 Dextrose 500 ml @ 500 mls/hr ONCE ONCE IV 04/02/20 10:45 04/02/20 11:44 Dextrose (Dextrose 50%) 25 ml Q30M PRN IV Hypoglycemia 03/26/20 21:15 06/24/20 21:14 Dextrose (Dextrose 50%) 50 ml Q30M PRN IV Hypoglycemia 03/26/20 21:15 06/24/20 21:14 Diltiazem HCl (Cardizem) 60 mg EVERY 8 HOURS NG 03/31/20 14:00 04/30/20 13:59 04/02/20 06:26 Diphenhydramine HCl (Benadryl) 25 mg Q6H PRN ORAL Itching/Pruritis 03/26/20 21:15 04/25/20 21:14 Docusate Sodium (Colace) 100 mg Q12HR NG 03/30/20 09:00 04/29/20 08:59 04/02/20 08:37 Fentanyl Citrate 250 ml @ 0 mls/hr Q24H IV 04/01/20 04:00 06/30/20 03:59 04/02/20 05:08 Gabapentin (Neurontin) 300 mg BEDTIME ORAL 03/27/20 21:00 04/26/20 20:59 04/01/20 20:43 Lorazepam (Ativan 2mg/ml 1ml) 0.5 mg Q4H PRN IV For Anxiety 04/01/20 13:15 04/08/20 13:14 Magnesium Hydroxide (Mom) 30 ml HSPRN PRN ORAL Constipation 03/26/20 21:15 04/25/20 21:14 Metoclopramide HCl (Reglan) 10 mg Q6H PRN IVP Nausea & Vomiting 03/26/20 21:15 04/25/20 21:14 Metoprolol Tartrate (Lopressor) 100 mg EVERY 12 HOURS ORAL 03/27/20 09:00 06/25/20 08:59 04/02/20 08:37 Metronidazole 100 ml @ 100 mls/hr Q8HR IVPB 03/27/20 22:00 04/03/20 21:59 04/02/20 06:24 Morphine Sulfate (Morphine Sulfate) 2 mg Q4H PRN IVP Moderate Pain (Pain Scale 4-6) 04/01/20 13:15 04/08/20 13:14 Morphine Sulfate (Morphine Sulfate) 4 mg Q4H PRN IVP Severe Pain (Pain Scale 7-10) 04/01/20 13:15 04/08/20 13:14 04/02/20 01:35 Norepinephrine Bitartrate 4 mg/ Dextrose 250 ml @ 0 mls/hr Q24H IV 03/28/20 16:00 04/27/20 15:59 Ondansetron HCl (Zofran) 4 mg Q6H PRN IVP Nausea & Vomiting 03/26/20 21:15 04/25/20 21:14 Pantoprazole (Protonix) 40 mg DAILY IVP 04/01/20 09:00 05/01/20 08:59 04/02/20 08:37 Polyethylene Glycol (Miralax) 17 gm HSPRN PRN ORAL Constipation 03/26/20 21:15 04/25/20 21:14 Rivaroxaban (Xarelto) 15 mg DAILY NG 03/31/20 09:00 06/29/20 08:59 04/02/20 08:36 Sevelamer Carbonate (Renvela) 1,600 mg THREE TIMES A DAY NG 03/31/20 09:00 06/27/20 08:59 04/02/20 08:37 Sodium Chloride 1,000 ml @ 50 mls/hr Q20H IV 03/30/20 14:45 04/29/20 14:44 04/02/20 03:35 Temazepam (Restoril) 15 mg HSPRN PRN ORAL Insomnia 04/01/20 10:15 04/08/20 10:14 Vancomycin HCl (Vanco pharmacy to dose) 1 ea DAILY PRN MISC Per rx protocol 03/27/20 20:15 04/26/20 20:14 Assessment/Plan Assessment/Plan IMPRESSION: 1. Hyperkalemia. Corrected 2. Sinus tachycardia. 3. Sepsis 4. Hypertension. 5. Seizure disorder. 6. Acute renal failure. 7. Respiratory failure DISCUSSION: Continue ICU care Correction of electrolytes Now on 30% FiO2 Weaning in progress Will try T tube Mentation poor; will hold off on extubation Also has thick gabriel-tracheal secretions Abx Seven Yao Omar Syed MD Apr 02, 2020 10:51
--- NOTE | 2020-04-02 11:00 | NUR ---
NURSE NOTES: Patient placed on T-bar with oxygen at 35% at 8l/Min. remains tolerating change with saturations at 98-100%. no Follow Up ABG ordered,
--- NOTE | 2020-04-02 11:10 | NUR ---
RESPIRATORY NOTES: TBAR TRAIL started at 1100. 35% FIo2 8 LPM. HR 72, BPM 10, SATS 100%. No WOB noted. Will continue to monitor.
--- NOTE | 2020-04-02 11:35 | NUR ---
NURSE NOTES: Dr. Torres covering Dr Vanessa adamspdated on patient progress. patient placed on T-piece with oxygen set at 35% and Dr. Montes placed order for 500ml of D5W once for elevated sodium of 148. no further orders given at this time.
--- NOTE | 2020-04-02 12:10 | Cardiology Progress Note ---
Assessment/Plan Status: stable, progressing Assessment/Plan Assessment/Plan Problem List: (1) Atrial flutter ICD Codes: I48.92 - Unspecified atrial flutter SNOMED: 3568820 (2) Hypertension ICD Codes: I10 - Essential (primary) hypertension SNOMED: 30397475 (3) Hyperkalemia ICD Codes: E87.5 - Hyperkalemia SNOMED: 78103564 (4) Acute encephalopathy ICD Codes: G93.40 - Encephalopathy, unspecified SNOMED: 2995694 (5) Acute and chronic respiratory failure with hypoxia ICD Codes: J96.21 - Acute and chronic respiratory failure with hypoxia SNOMED: 56375019, 451269867 (6) VENTURA (acute kidney injury) ICD Codes: N17.9 - Acute kidney failure, unspecified SNOMED: 8759059, 91413658 Status: deteriorating AFIB - resolved -D/c cardizem IV -> transition to PO -D/c heparin -Start DOAC xarelto -Echocardiogram with normal LV function Elevated BNP -CXR clear -No signs of LV fluid overload, wll monitor right sided filling pressures -Hold diuresis for now given VENTURA/CKD/Rhabdo -IV fluids for sepsis and hypotension Critical care 40 minutes Subjective Cardiovascular: Reports: no symptoms Respiratory: Reports: no symptoms Gastrointestinal/Abdominal: Reports: no symptoms Genitourinary: Reports: no symptoms Subjective Continues to be sedated and intubated in ICU On cardizem via NGT, Remains in normal sinus Objective Last 24 Hour Vital Signs Date Time Temp Pulse Resp B/P (MAP) Pulse Ox O2 Delivery O2 Flow Rate FiO2 04/02/20 11:30 90 15 149/84 (105) 99 04/02/20 11:08 35 04/02/20 11:00 73 10 121/64 (83) 100 04/02/20 10:30 30 04/02/20 10:30 74 10 115/57 (76) 100 04/02/20 10:00 74 10 114/62 (79) 100 04/02/20 09:30 76 11 122/58 (79) 100 04/02/20 09:00 101 15 149/76 (100) 99 04/02/20 08:37 99 152/61 04/02/20 08:30 100 15 152/61 (91) 99 6/15/20 08:00 Mechanical Ventilator 04/02/20 08:00 98.7 100 16 149/62 (91) 99 04/02/20 07:49 100 04/02/20 07:45 101 24 30 04/02/20 07:30 100 16 142/84 (103) 97 04/02/20 07:00 100 18 151/72 (98) 96 04/02/20 06:48 111 22 04/02/20 06:26 85 148/75 04/02/20 06:24 18 157/78 Mechanical Ventilator 30 04/02/20 06:00 20 148/74 Non-Rebreather 30 04/02/20 06:00 104 22 147/71 (96) 99 04/02/20 05:30 106 22 164/92 (116) 97 04/02/20 05:08 20 173/74 Mechanical Ventilator 100 04/02/20 05:00 111 24 175/74 (107) 94 04/02/20 05:00 24 148/68 Mechanical Ventilator 30 04/02/20 04:30 101 26 152/68 (96) 96 04/02/20 04:00 30 04/02/20 04:00 98.9 105 26 148/68 (94) 99 04/02/20 04:00 Mechanical Ventilator 04/02/20 04:00 24 153/66 Mechanical Ventilator 30 04/02/20 04:00 102 04/02/20 03:30 95 22 152/66 (94) 99 04/02/20 03:19 101 26 30 04/02/20 03:00 99 25 132/49 (76) 100 04/02/20 03:00 18 130/65 Mechanical Ventilator 30.0 30 04/02/20 02:30 93 20 152/76 (101) 99 04/02/20 02:00 21 141/81 Mechanical Ventilator 30 04/02/20 02:00 98 22 150/84 (106) 100 04/02/20 01:00 93 22 147/72 (97) 99 04/02/20 01:00 24 147/72 Mechanical Ventilator 30 04/02/20 00:00 Mechanical Ventilator 04/02/20 00:00 100 04/02/20 00:00 98.2 92 20 135/70 (91) 99 04/02/20 00:00 24 135/70 Mechanical Ventilator 30 04/02/20 00:00 30 04/01/20 23:47 88 27 30 04/01/20 23:00 20 130/58 Mechanical Ventilator 30 04/01/20 23:00 82 15 131/68 (89) 99 04/01/20 22:00 19 120/64 Mechanical Ventilator 30 04/01/20 22:00 73 15 123/65 (84) 99 04/01/20 21:00 90 23 124/73 (90) 99 04/01/20 21:00 17 115/65 Mechanical Ventilator 30 04/01/20 20:44 87 167/78 04/01/20 20:42 87 167/78 04/01/20 20:00 98.4 95 20 146/75 (98) 100 04/01/20 20:00 98 04/01/20 20:00 Mechanical Ventilator 04/01/20 20:00 20 146/73 Mechanical Ventilator 30 04/01/20 20:00 30 04/01/20 19:59 97 16 30 04/01/20 19:00 89 17 130/56 (80) 100 04/01/20 19:00 18 130/56 Mechanical Ventilator 30 04/01/20 18:00 19 125/56 Mechanical Ventilator 30 04/01/20 18:00 92 19 125/56 (79) 100 04/01/20 17:00 88 23 133/59 (83) 100 04/01/20 17:00 23 133/59 Mechanical Ventilator 30 04/01/20 16:30 84 17 130/61 (84) 100 04/01/20 16:00 90 04/01/20 16:00 21 132/71 Mechanical Ventilator 30 04/01/20 16:00 30 04/01/20 16:00 98.6 89 21 132/71 (91) 100 04/01/20 16:00 Mechanical Ventilator 04/01/20 15:45 133/63 04/01/20 15:30 15 133/63 Mechanical Ventilator 30 04/01/20 15:09 90 18 30 04/01/20 15:00 91 17 135/60 (85) 100 04/01/20 14:00 81 17 124/62 (82) 100 04/01/20 13:55 81 117/53 04/01/20 13:00 83 19 122/61 (81) 100 General Appearance: no apparent distress, on vent EENT: PERRL/EOMI, normal ENT inspection, TMs normal, pharynx normal Neck: normal alignment, supple, no JVD Rhythm: NSR Cardiovascular: normal peripheral pulses, normal rate, regular rhythm Respiratory/Chest: lungs clear, normal breath sounds, rhonchi - bilaterally Abdomen: non tender, no organomegaly Extremities: non-tender, normal inspection Neurologic: magistrate judge II-XII grossly normal, no motor/sensory deficits Intake and Output 04/01/20 04/02/20 19:00 07:00 Intake Total 1892.5 ml 1605 ml Output Total 665 ml 660 ml Balance 1227.5 ml 945 ml Intake Free Water 200 ml IV Total 1082.5 ml 745 ml Tube Feeding 660 ml 660 ml Other 150 ml Output Urine Total 565 ml 660 ml Stool Total 100 ml # Bowel Movements 50 Laboratory Tests Test 04/02/20 04:02 04/02/20 09:02 White Blood Count 16.8 K/UL (4.8-10.8) H Red Blood Count 3.77 M/UL (4.20-5.40) L Hemoglobin 9.8 G/DL (12.0-16.0) L Hematocrit 33.6 % (37.0-47.0) L Mean Corpuscular Volume 89 FL (80-99) Mean Corpuscular Hemoglobin 25.9 PG (27.0-31.0) L Mean Corpuscular Hemoglobin Concent 29.1 G/DL (32.0-36.0) L Red Cell Distribution Width 21.3 % (11.6-14.8) H Platelet Count 189 K/UL (150-450) Mean Platelet Volume 6.1 FL (6.5-10.1) L Neutrophils (%) (Auto) 81.7 % (45.0-75.0) H Lymphocytes (%) (Auto) 6.3 % (20.0-45.0) L Monocytes (%) (Auto) 10.5 % (1.0-10.0) H Eosinophils (%) (Auto) 0.1 % (0.0-3.0) Basophils (%) (Auto) 1.4 % (0.0-2.0) Sodium Level 148 MMOL/L (136-145) H Potassium Level 4.8 MMOL/L (3.5-5.1) # Chloride Level 111 MMOL/L (98-107) H Carbon Dioxide Level 22 MMOL/L (21-32) Anion Gap 15 mmol/L (5-15) Blood Urea Nitrogen 89 mg/dL (7-18) H Creatinine 2.4 MG/DL (0.55-1.30) H Estimat Glomerular Filtration Rate 24.4 mL/min (>60) Glucose Level 117 MG/DL (74-106) H Calcium Level 7.9 MG/DL (8.5-10.1) L Phosphorus Level 3.7 MG/DL (2.5-4.9) Magnesium Level 1.8 MG/DL (1.8-2.4) Total Bilirubin 0.5 MG/DL (0.2-1.0) Aspartate Amino Transf (AST/SGOT) 37 U/L (15-37) Alanine Aminotransferase (ALT/SGPT) 21 U/L (12-78) Alkaline Phosphatase 142 U/L (46-116) H Total Protein 5.3 G/DL (6.4-8.2) L Albumin 1.9 G/DL (3.4-5.0) L Globulin 3.4 g/dL Albumin/Globulin Ratio 0.6 (1.0-2.7) L Random Vancomycin Level 18.1 ug/mL Arterial Blood pH 7.369 (7.350-7.450) Arterial Blood Partial Pressure CO2 41.5 mmHg (35.0-45.0) Arterial Blood Partial Pressure O2 98.6 mmHg (75.0-100.0) Arterial Blood HCO3 23.4 mmol/L (22.0-26.0) Arterial Blood Oxygen Saturation 96.6 % (95-100) Arterial Blood Base Excess -1.8 (-2-2) Kelvin Test Positive Rafat Crooks MD Apr 02, 2020 12:10
--- NOTE | 2020-04-02 13:00 | NUR ---
NURSE NOTES: Dr. Iglesias updated on patient sacral wound DTI, ordered to continue recommendation placed in notes.
--- NOTE | 2020-04-02 13:57 | Surgery Progress Note ---
Surgery Progress Note Subjective Additional Comments Leukocytosis, H&H stable, labs noted. Off vent support on T-piece right now pending potential extubation gas noted Objective Last 24 Hour Vital Signs Date Time Temp Pulse Resp B/P (MAP) Pulse Ox O2 Delivery O2 Flow Rate FiO2 04/02/20 13:33 93 112/57 04/02/20 13:00 87 12 114/53 (73) 100 04/02/20 12:30 81 13 107/57 (74) 100 04/02/20 12:00 79 04/02/20 12:00 Mechanical Ventilator 04/02/20 12:00 35 04/02/20 12:00 97.2 82 13 126/67 (86) 100 04/02/20 11:30 90 15 149/84 (105) 99 04/02/20 11:08 35 04/02/20 11:00 73 10 121/64 (83) 100 04/02/20 10:30 74 10 115/57 (76) 100 04/02/20 10:00 74 10 114/62 (79) 100 04/02/20 09:30 76 11 122/58 (79) 100 04/02/20 09:00 101 15 149/76 (100) 99 04/02/20 08:37 99 152/61 04/02/20 08:30 100 15 152/61 (91) 99 04/02/20 08:00 30 04/02/20 08:00 Mechanical Ventilator 04/02/20 08:00 98.7 100 16 149/62 (91) 99 04/02/20 08:00 105 04/02/20 07:49 100 04/02/20 07:45 101 24 30 04/02/20 07:30 100 16 142/84 (103) 97 04/02/20 07:00 100 18 151/72 (98) 96 04/02/20 06:48 111 22 04/02/20 06:26 85 148/75 04/02/20 06:24 18 157/78 Mechanical Ventilator 30 04/02/20 06:00 20 148/74 Non-Rebreather 30 04/02/20 06:00 104 22 147/71 (96) 99 04/02/20 05:30 106 22 164/92 (116) 97 04/02/20 05:08 20 173/74 Mechanical Ventilator 100 04/02/20 05:00 111 24 175/74 (107) 94 04/02/20 05:00 24 148/68 Mechanical Ventilator 30 04/02/20 04:30 101 26 152/68 (96) 96 04/02/20 04:00 30 04/02/20 04:00 98.9 105 26 148/68 (94) 99 04/02/20 04:00 Mechanical Ventilator 04/02/20 04:00 24 153/66 Mechanical Ventilator 30 04/02/20 04:00 102 04/02/20 03:30 95 22 152/66 (94) 99 04/02/20 03:19 101 26 30 04/02/20 03:00 99 25 132/49 (76) 100 04/02/20 03:00 18 130/65 Mechanical Ventilator 30.0 30 04/02/20 02:30 93 20 152/76 (101) 99 04/02/20 02:00 21 141/81 Mechanical Ventilator 30 04/02/20 02:00 98 22 150/84 (106) 100 04/02/20 01:00 93 22 147/72 (97) 99 04/02/20 01:00 24 147/72 Mechanical Ventilator 30 04/02/20 00:00 Mechanical Ventilator 04/02/20 00:00 100 04/02/20 00:00 98.2 92 20 135/70 (91) 99 04/02/20 00:00 24 135/70 Mechanical Ventilator 30 04/02/20 00:00 30 04/01/20 23:47 88 27 30 04/01/20 23:00 20 130/58 Mechanical Ventilator 30 04/01/20 23:00 82 15 131/68 (89) 99 04/01/20 22:00 19 120/64 Mechanical Ventilator 30 04/01/20 22:00 73 15 123/65 (84) 99 04/01/20 21:00 90 23 124/73 (90) 99 04/01/20 21:00 17 115/65 Mechanical Ventilator 30 04/01/20 20:44 87 167/78 04/01/20 20:42 87 167/78 04/01/20 20:00 98.4 95 20 146/75 (98) 100 04/01/20 20:00 98 04/01/20 20:00 Mechanical Ventilator 04/01/20 20:00 20 146/73 Mechanical Ventilator 30 04/01/20 20:00 30 04/01/20 19:59 97 16 30 04/01/20 19:00 89 17 130/56 (80) 100 04/01/20 19:00 18 130/56 Mechanical Ventilator 30 04/01/20 18:00 19 125/56 Mechanical Ventilator 30 04/01/20 18:00 92 19 125/56 (79) 100 04/01/20 17:00 88 23 133/59 (83) 100 04/01/20 17:00 23 133/59 Mechanical Ventilator 30 04/01/20 16:30 84 17 130/61 (84) 100 04/01/20 16:00 90 04/01/20 16:00 21 132/71 Mechanical Ventilator 30 04/01/20 16:00 30 04/01/20 16:00 98.6 89 21 132/71 (91) 100 04/01/20 16:00 Mechanical Ventilator 04/01/20 15:45 133/63 04/01/20 15:30 15 133/63 Mechanical Ventilator 30 04/01/20 15:09 90 18 30 04/01/20 15:00 91 17 135/60 (85) 100 04/01/20 14:00 81 17 124/62 (82) 100 I&O Intake and Output 04/01/20 04/02/20 19:00 07:00 Intake Total 1892.5 ml 1605 ml Output Total 665 ml 660 ml Balance 1227.5 ml 945 ml Intake Free Water 200 ml IV Total 1082.5 ml 745 ml Tube Feeding 660 ml 660 ml Other 150 ml Output Urine Total 565 ml 660 ml Stool Total 100 ml # Bowel Movements 50 Dressing: other Wound: other Drains: other Cardiovascular: RSR Respiratory: decreased breath sounds Abdomen: soft, non-tender, present bowel sounds Extremities: no cyanosis Laboratory Tests Test 04/02/20 04:02 04/02/20 09:02 White Blood Count 16.8 K/UL (4.8-10.8) H Red Blood Count 3.77 M/UL (4.20-5.40) L Hemoglobin 9.8 G/DL (12.0-16.0) L Hematocrit 33.6 % (37.0-47.0) L Mean Corpuscular Volume 89 FL (80-99) Mean Corpuscular Hemoglobin 25.9 PG (27.0-31.0) L Mean Corpuscular Hemoglobin Concent 29.1 G/DL (32.0-36.0) L Red Cell Distribution Width 21.3 % (11.6-14.8) H Platelet Count 189 K/UL (150-450) Mean Platelet Volume 6.1 FL (6.5-10.1) L Neutrophils (%) (Auto) 81.7 % (45.0-75.0) H Lymphocytes (%) (Auto) 6.3 % (20.0-45.0) L Monocytes (%) (Auto) 10.5 % (1.0-10.0) H Eosinophils (%) (Auto) 0.1 % (0.0-3.0) Basophils (%) (Auto) 1.4 % (0.0-2.0) Sodium Level 148 MMOL/L (136-145) H Potassium Level 4.8 MMOL/L (3.5-5.1) # Chloride Level 111 MMOL/L (98-107) H Carbon Dioxide Level 22 MMOL/L (21-32) Anion Gap 15 mmol/L (5-15) Blood Urea Nitrogen 89 mg/dL (7-18) H Creatinine 2.4 MG/DL (0.55-1.30) H Estimat Glomerular Filtration Rate 24.4 mL/min (>60) Glucose Level 117 MG/DL (74-106) H Calcium Level 7.9 MG/DL (8.5-10.1) L Phosphorus Level 3.7 MG/DL (2.5-4.9) Magnesium Level 1.8 MG/DL (1.8-2.4) Total Bilirubin 0.5 MG/DL (0.2-1.0) Aspartate Amino Transf (AST/SGOT) 37 U/L (15-37) Alanine Aminotransferase (ALT/SGPT) 21 U/L (12-78) Alkaline Phosphatase 142 U/L (46-116) H Total Protein 5.3 G/DL (6.4-8.2) L Albumin 1.9 G/DL (3.4-5.0) L Globulin 3.4 g/dL Albumin/Globulin Ratio 0.6 (1.0-2.7) L Random Vancomycin Level 18.1 ug/mL Arterial Blood pH 7.369 (7.350-7.450) Arterial Blood Partial Pressure CO2 41.5 mmHg (35.0-45.0) Arterial Blood Partial Pressure O2 98.6 mmHg (75.0-100.0) Arterial Blood HCO3 23.4 mmol/L (22.0-26.0) Arterial Blood Oxygen Saturation 96.6 % (95-100) Arterial Blood Base Excess -1.8 (-2-2) Kelvin Test Positive Plan Problems: (1) Sepsis Assessment & Plan: Patient admitted identified to have sepsis leukocytosis tachycardia abnormal labs lactic acidosis. Chest x-ray reviewed. Imaging noted. Micro noted. Intensive care unit on support appreciate ICU care Nutritional optimization IV fluids IV antibiotics as per infectious disease tube feeds once stable will follow with recommendations thank you for letting participate patient's care Urosepsis on abx DAILY ESTIMATED NEEDS: Needs based on Critical care, sepsis 75.8kg adj 20-28 kcals/kg 3950-9536 total kcals 1.25-1.5 g protein/kg 95-152 g total protein 25-30 mL/kg 2529-7066 total fluid mLs NUTRITION DIAGNOSIS: Swallowing difficulty r/t respiratory status as evidenced by pt orally intubated, ICU status. CURRENT TF:NPO ENTERAL NUTRITION RECOMMENDATIONS: VITAL AF 1.2 @55ml/hr x24 hrs to provide 1320ml, 1584 kcal, 99g pro, 1071ml free H2O - As medically able, rec non oral feeds. Start VITAL 1.2 @low rate 15ml/hr x6 hrs, advance as tolerated 10ml/hr q4-6 hrs to goal. - Flush per MD/ HOB over 30 degrees -> IF POTASSIUM REMAINS ELEVATED-> Rec NEPRO w/ goal rate of 40ml/hr for 24 hrs to provide 960ml, 1728 kcal, 78g pro, 698ml free H2O. -> Feed w/ hemodynamic stability. ADDITIONAL RECOMMENDATIONS: 1) Maintain calibrated bed scale wts (248lbs vs 217lbs last adm) 2) F/up w/ WC eval. NPO at this time 3) Monitor lytes, need for renal formula 4) Feed when hemodynamically stable -> trophic feeds w/ low BP to maintain gut integrity (2) Sacral decubitus ulcer Assessment & Plan: Patient identified to have a sacral deep tissue injury upon admission Currently intensive care unit on support Care plan initiated (3) Ventral incisional hernia Assessment & Plan: History of colon resection colostomy Ventral incisional hernia reducible No acute invention monitor parastomal hernia stable ostomy viable and functional no acute intervention planned Julian Iglesias Apr 02, 2020 13:57
[2020-04-02] MEDS: Cefepime HCl 1 GM in D5W 55 ML IVPB SCH (14:36)
--- NOTE | 2020-04-02 14:42 | NUR ---
CASE MANAGEMENT: REVIEW SI: SEPSIS . A-FIB . INTUBATED T 97.2 HR 82 RR 13 BP 107/49 SAT 99% MECH VENT FIO2 35 WBC 16.8 H/H 9.8/33.6 NA 148 BUN 89 CR 2.4 IS: LEVOPHED IV Q24HR NS IVF @ 50ML/HR FENTANYL IV Q24HR PROTONIX IV QD ICU STATUS DCP: PATIENT IS FROM [facility]
--- NOTE | 2020-04-02 15:21 | Internal Med Progress Note ---
Subjective Date of Service: Apr 02, 2020 Physician Name DenzelCami Attending Physician Malathi Mendez MD Current Medications Medications (Trade) Dose Ordered Sig/Debbie Route PRN Reason Start Time Stop Time Status Last Admin Dose Admin Acetaminophen (Tylenol) 650 mg Q4H PRN ORAL Temp >100.5 03/26/20 21:15 04/25/20 21:14 04/01/20 05:32 Acetaminophen (Tylenol) 650 mg Q4H PRN ORAL Mild Pain (Pain Scale 1-3) 03/26/20 21:15 04/25/20 21:14 Al Hydroxide/Mg Hydroxide (Mylanta II) 30 ml Q6H PRN ORAL dyspepsia 03/26/20 21:15 04/25/20 21:14 Bisacodyl (Dulcolax) 10 mg HSPRN PRN RECTAL Constipation 03/26/20 21:15 06/24/20 21:14 Cefepime HCl 1 gm/ Dextrose 55 ml @ 110 mls/hr Q24H IVPB 03/28/20 15:00 04/04/20 14:59 04/02/20 14:36 Chlorhexidine Gluconate (Laurie-Hex 2%) 1 applic DAILY@2000 TOPIC 03/28/20 20:00 06/26/20 19:59 04/01/20 20:41 Dextrose (Dextrose 50%) 25 ml Q30M PRN IV Hypoglycemia 03/26/20 21:15 06/24/20 21:14 Dextrose (Dextrose 50%) 50 ml Q30M PRN IV Hypoglycemia 03/26/20 21:15 06/24/20 21:14 Diltiazem HCl (Cardizem) 60 mg EVERY 8 HOURS NG 03/31/20 14:00 04/30/20 13:59 04/02/20 13:33 Diphenhydramine HCl (Benadryl) 25 mg Q6H PRN ORAL Itching/Pruritis 03/26/20 21:15 04/25/20 21:14 Docusate Sodium (Colace) 100 mg Q12HR NG 03/30/20 09:00 04/29/20 08:59 04/02/20 08:37 Fentanyl Citrate 250 ml @ 0 mls/hr Q24H IV 04/01/20 04:00 06/30/20 03:59 04/02/20 14:38 Gabapentin (Neurontin) 300 mg BEDTIME ORAL 03/27/20 21:00 04/26/20 20:59 04/01/20 20:43 Lorazepam (Ativan 2mg/ml 1ml) 0.5 mg Q4H PRN IV For Anxiety 04/01/20 13:15 04/08/20 13:14 Magnesium Hydroxide (Mom) 30 ml HSPRN PRN ORAL Constipation 03/26/20 21:15 04/25/20 21:14 Metoclopramide HCl (Reglan) 10 mg Q6H PRN IVP Nausea & Vomiting 03/26/20 21:15 04/25/20 21:14 Metoprolol Tartrate (Lopressor) 100 mg EVERY 12 HOURS ORAL 03/27/20 09:00 06/25/20 08:59 04/02/20 08:37 Metronidazole 100 ml @ 100 mls/hr Q8HR IVPB 03/27/20 22:00 04/03/20 21:59 04/02/20 13:33 Morphine Sulfate (Morphine Sulfate) 2 mg Q4H PRN IVP Moderate Pain (Pain Scale 4-6) 04/01/20 13:15 04/08/20 13:14 Morphine Sulfate (Morphine Sulfate) 4 mg Q4H PRN IVP Severe Pain (Pain Scale 7-10) 04/01/20 13:15 04/08/20 13:14 04/02/20 01:35 Norepinephrine Bitartrate 4 mg/ Dextrose 250 ml @ 0 mls/hr Q24H IV 03/28/20 16:00 04/27/20 15:59 Ondansetron HCl (Zofran) 4 mg Q6H PRN IVP Nausea & Vomiting 03/26/20 21:15 04/25/20 21:14 Pantoprazole (Protonix) 40 mg DAILY IVP 04/01/20 09:00 05/01/20 08:59 04/02/20 08:37 Polyethylene Glycol (Miralax) 17 gm HSPRN PRN ORAL Constipation 03/26/20 21:15 04/25/20 21:14 Rivaroxaban (Xarelto) 15 mg DAILY NG 03/31/20 09:00 06/29/20 08:59 04/02/20 08:36 Sevelamer Carbonate (Renvela) 1,600 mg THREE TIMES A DAY NG 03/31/20 09:00 06/27/20 08:59 04/02/20 13:33 Sodium Chloride 1,000 ml @ 50 mls/hr Q20H IV 03/30/20 14:45 04/29/20 14:44 04/02/20 03:35 Temazepam (Restoril) 15 mg HSPRN PRN ORAL Insomnia 04/01/20 10:15 04/08/20 10:14 Vancomycin HCl ([facility] pharmacy to dose) 1 ea DAILY PRN MISC Per rx protocol 03/27/20 20:15 04/26/20 20:14 Allergies: Coded Allergies: LISINOPRIL (Verified Allergy, Unknown, Hives, 04/12/14) Subjective Patient currently being weened off vent; She is tolerating well. Spoke with nurse at bedside, all updates reviewed. Appreciate medical team. Vitals and labs reviewed. Renal function slowly improving, given gentle D5W bolus for hypernatremia. Objective Last Vital Signs Date Time Temp Pulse Resp B/P (MAP) Pulse Ox O2 Delivery O2 Flow Rate FiO2 04/02/20 14:38 16 118/50 Mechanical Ventilator 35 04/02/20 14:00 93 99 04/02/20 12:00 97.2 04/02/20 03:00 30.0 Laboratory Tests Test 04/02/20 04:02 04/02/20 09:02 White Blood Count 16.8 K/UL (4.8-10.8) H Red Blood Count 3.77 M/UL (4.20-5.40) L Hemoglobin 9.8 G/DL (12.0-16.0) L Hematocrit 33.6 % (37.0-47.0) L Mean Corpuscular Volume 89 FL (80-99) Mean Corpuscular Hemoglobin 25.9 PG (27.0-31.0) L Mean Corpuscular Hemoglobin Concent 29.1 G/DL (32.0-36.0) L Red Cell Distribution Width 21.3 % (11.6-14.8) H Platelet Count 189 K/UL (150-450) Mean Platelet Volume 6.1 FL (6.5-10.1) L Neutrophils (%) (Auto) 81.7 % (45.0-75.0) H Lymphocytes (%) (Auto) 6.3 % (20.0-45.0) L Monocytes (%) (Auto) 10.5 % (1.0-10.0) H Eosinophils (%) (Auto) 0.1 % (0.0-3.0) Basophils (%) (Auto) 1.4 % (0.0-2.0) Sodium Level 148 MMOL/L (136-145) H Potassium Level 4.8 MMOL/L (3.5-5.1) # Chloride Level 111 MMOL/L (98-107) H Carbon Dioxide Level 22 MMOL/L (21-32) Anion Gap 15 mmol/L (5-15) Blood Urea Nitrogen 89 mg/dL (7-18) H Creatinine 2.4 MG/DL (0.55-1.30) H Estimat Glomerular Filtration Rate 24.4 mL/min (>60) Glucose Level 117 MG/DL (74-106) H Calcium Level 7.9 MG/DL (8.5-10.1) L Phosphorus Level 3.7 MG/DL (2.5-4.9) Magnesium Level 1.8 MG/DL (1.8-2.4) Total Bilirubin 0.5 MG/DL (0.2-1.0) Aspartate Amino Transf (AST/SGOT) 37 U/L (15-37) Alanine Aminotransferase (ALT/SGPT) 21 U/L (12-78) Alkaline Phosphatase 142 U/L (46-116) H Total Protein 5.3 G/DL (6.4-8.2) L Albumin 1.9 G/DL (3.4-5.0) L Globulin 3.4 g/dL Albumin/Globulin Ratio 0.6 (1.0-2.7) L Random Vancomycin Level 18.1 ug/mL Arterial Blood pH 7.369 (7.350-7.450) Arterial Blood Partial Pressure CO2 41.5 mmHg (35.0-45.0) Arterial Blood Partial Pressure O2 98.6 mmHg (75.0-100.0) Arterial Blood HCO3 23.4 mmol/L (22.0-26.0) Arterial Blood Oxygen Saturation 96.6 % (95-100) Arterial Blood Base Excess -1.8 (-2-2) Kelvin Test Positive Intake and Output 04/01/20 04/02/20 19:00 07:00 Intake Total 1892.5 ml 1605 ml Output Total 665 ml 660 ml Balance 1227.5 ml 945 ml Intake Free Water 200 ml IV Total 1082.5 ml 745 ml Tube Feeding 660 ml 660 ml Other 150 ml Output Urine Total 565 ml 660 ml Stool Total 100 ml # Bowel Movements 50 Objective General Appearance: other - Intubated, ET tube in place EENT: PERRL/EOMI Cardiovascular: arrhythmia, irregularly irregular Respiratory/Chest: other - Vented lung sounds, Fi02 35% Abdomen: non tender, soft Edema: mild edema 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 grossly normal Skin: warm/dry Assessment/Plan Assessment/Plan Assessment #Acute Hypoxic Resp Failure #Afib w/ RVR, now in SR, off heparin gtt and on Xarelto #Acute Renal Failure 2/2 ATN from Rhabo --> BUN and creatinine still very elevated, consider HD if concern of Uremic Encephalopathy; slowly improving #Rhabdo #Sepsis, HCAP/UTI, COVID negative #Seizure?; will f/u Plan Appreciate Consultants and ICU team Weening Trials Vancomyin, Cefepime, Flagyl, Winters Cx Diltiazem and Metoprolol IVF per Nephro, may require HD given renal function but output good DVT and GI ppx; Tube Feeds * Will need to follow up why patient had Rhabdo? if Seizure hx could be uncontrolled seizure and then a neuro consult would be needed. Will look into 04/02: Vent weening; f/u w/ ID recs regarding WBC and ongoing AB Cami Mahoney D.O. Apr 02, 2020 15:21
--- NOTE | 2020-04-02 15:26 | NUR ---
NURSE NOTES: Dr. Crooks ordered to have Metoprolol to be stopped, already has Cardizem PO. patient currently remains with Heart rate at 90-95bpm in sinus rhythm and Bp is 113/51.
[2020-04-02] MEDS ORDERED: NS 275ml ONE ×2 (17:35→17:44)
[2020-04-02] MEDS ORDERED: Tubing IV Secondary IV ONE (17:35)
[2020-04-02] MEDS ORDERED: 1/2 NS 1000ml IV ONE ×2 (17:35→17:44)
[2020-04-02] MEDS ORDERED: D5W 550ml IV ONE (17:44)
[2020-04-02] MEDS ORDERED: Sterile Water Irrig 1000ml IRRIG ONE ×2 (17:44→17:45)
--- NOTE | 2020-04-02 19:27 | NUR ---
HAND-OFF: Report given to JOSSELYN Juan.
[2020-04-02] MEDS: Dyna-Hex 2% Top Sol 2oz TOPIC SCH (20:32)
--- NOTE | 2020-04-02 22:21 | Infectious Diseases Prog Note ---
Assessment/Plan Assessment/Plan ASSESSMENT AND PLAN: 1. uti, sepsis, fevers, leukocytosis, a.flutter, respiratory failure, atx, dony, + ua, atx - vancomycin, cefepime, flagyl - day # 6 abx - reculture patient because of persistent leukocytosis and recent fevers - covid-19 testing negative x 2 - monitor labs and chest x-ray - weaning per pulmonary medicine - communicated with Dr. Mahoney - d/w RN in icu 2. Respiratory failure, on vent. 3. Renal failure. 4. Diabetes. 5. Hypertension. 6. Diabetes and hypertension, treatment per primary care team. 7. Patient with history of altered mental status. 8. Seizure history. 9. Chronic neck pain. 10. Acute kidney injury and renal failure. 11. Allergies to lisinopril. 12. Social history is negative. 13. Family history is noncontributory. 14. MAR was noted. 15. Case was discussed with RN. 16. ICU care. 17. Skin care. 18. Continue treatment per primary consultants. Subjective Constitutional: Reports: fatigue, other - fever curve better last 24 hrs ; Denies: fever HEENT: Reports: congestion Respiratory: Reports: shortness of breath, other - + vent Cardiovascular: Reports: other - no pressors Gastrointestinal/Abdominal: Denies: nausea, vomiting, diarrhea Genitourinary: Reports: other - + weiss Neurologic: Reports: other - weak, alert, responsive Psychiatric: Reports: other - NA Skin: Denies: rash Hematologic: Denies: bleeding Musculoskeletal: Reports: pain Allergies: Coded Allergies: LISINOPRIL (Verified Allergy, Unknown, Hives, 04/12/14) Objective Vital Signs Last 24 Hour Vital Signs Date Time Temp Pulse Resp B/P (MAP) Pulse Ox O2 Delivery O2 Flow Rate FiO2 04/02/20 21:38 87 148/50 04/02/20 20:00 100 T-Piece 8.0 35 04/02/20 19:00 11 144/79 T-piece 35 04/02/20 19:00 85 11 144/79 (100) 100 04/02/20 18:30 85 11 146/61 (89) 100 04/02/20 18:00 86 13 141/63 (89) 100 04/02/20 18:00 11 146/61 T-piece 35 04/02/20 17:30 93 13 121/52 (75) 100 04/02/20 17:00 92 12 134/54 (80) 100 04/02/20 17:00 12 134/54 T-piece 35 04/02/20 16:30 87 9 128/53 (78) 100 04/02/20 16:00 Mechanical Ventilator 04/02/20 16:00 91 04/02/20 16:00 12 120/61 T-piece 35 04/02/20 16:00 120/61 04/02/20 16:00 97.3 83 12 120/61 (80) 100 04/02/20 15:30 88 10 123/52 (75) 100 04/02/20 15:02 35 04/02/20 15:00 92 12 121/54 (76) 100 04/02/20 15:00 12 121/54 T-piece 35 04/02/20 14:38 16 118/50 Mechanical Ventilator 35 04/02/20 14:30 93 15 118/50 (72) 99 04/02/20 14:00 93 15 107/49 (68) 99 04/02/20 14:00 15 107/49 T-piece 35 04/02/20 13:33 93 112/57 04/02/20 13:30 90 11 111/52 (71) 100 04/02/20 13:00 12 114/53 T-piece 35 04/02/20 13:00 87 12 114/53 (73) 100 04/02/20 12:30 81 13 107/57 (74) 100 04/02/20 12:00 79 04/02/20 12:00 Mechanical Ventilator 04/02/20 12:00 13 126/67 T-piece 35 04/02/20 12:00 35 04/02/20 12:00 97.2 82 13 126/67 (86) 100 04/02/20 11:30 90 15 149/84 (105) 99 04/02/20 11:08 35 04/02/20 11:00 10 121/64 T-piece 35 04/02/20 11:00 73 10 121/64 (83) 100 04/02/20 10:30 74 10 115/57 (76) 100 04/02/20 10:00 10 114/62 Mechanical Ventilator 30 04/02/20 10:00 74 10 114/62 (79) 100 04/02/20 09:30 76 11 122/58 (79) 100 04/02/20 09:00 101 15 149/76 (100) 99 04/02/20 09:00 15 149/76 Mechanical Ventilator 30 04/02/20 08:37 99 152/61 04/02/20 08:30 100 15 152/61 (91) 99 04/02/20 08:00 30 04/02/20 08:00 16 149/62 Mechanical Ventilator 30 04/02/20 08:00 Mechanical Ventilator 04/02/20 08:00 98.7 100 16 149/62 (91) 99 04/02/20 08:00 105 04/02/20 07:49 100 04/02/20 07:45 101 24 30 04/02/20 07:30 100 16 142/84 (103) 97 04/02/20 07:00 100 18 151/72 (98) 96 04/02/20 06:48 111 22 04/02/20 06:26 85 148/75 04/02/20 06:24 18 157/78 Mechanical Ventilator 30 04/02/20 06:00 20 148/74 Non-Rebreather 30 04/02/20 06:00 104 22 147/71 (96) 99 04/02/20 05:30 106 22 164/92 (116) 97 04/02/20 05:08 20 173/74 Mechanical Ventilator 100 04/02/20 05:00 111 24 175/74 (107) 94 04/02/20 05:00 24 148/68 Mechanical Ventilator 30 04/02/20 04:30 101 26 152/68 (96) 96 04/02/20 04:00 30 04/02/20 04:00 98.9 105 26 148/68 (94) 99 04/02/20 04:00 Mechanical Ventilator 04/02/20 04:00 24 153/66 Mechanical Ventilator 30 04/02/20 04:00 102 04/02/20 03:30 95 22 152/66 (94) 99 04/02/20 03:19 101 26 30 04/02/20 03:00 99 25 132/49 (76) 100 04/02/20 03:00 18 130/65 Mechanical Ventilator 30.0 30 04/02/20 02:30 93 20 152/76 (101) 99 04/02/20 02:00 21 141/81 Mechanical Ventilator 30 04/02/20 02:00 98 22 150/84 (106) 100 04/02/20 01:00 93 22 147/72 (97) 99 04/02/20 01:00 24 147/72 Mechanical Ventilator 30 04/02/20 00:00 Mechanical Ventilator 04/02/20 00:00 100 04/02/20 00:00 98.2 92 20 135/70 (91) 99 04/02/20 00:00 24 135/70 Mechanical Ventilator 30 04/02/20 00:00 30 04/01/20 23:47 88 27 30 04/01/20 23:00 20 130/58 Mechanical Ventilator 30 04/01/20 23:00 82 15 131/68 (89) 99 Height (Feet): 5 Height (Inches): 6.00 Weight (Pounds): 254 General Appearance: other - on vent, no pressors HEENT: normocephalic, atraumatic, anicteric, no JVD Respiratory/Chest: crackles/rales, rhonchi - bilaterally Cardiovascular: normal rate, regular rhythm, no gallop/murmur, no JVD Abdomen: normal bowel sounds, soft, non tender, no organomegaly, non distended Genitourinary: other - + weiss Extremities: no cyanosis Skin: no rash Neurologic/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 There is some increased atelectasis at the right lung base. There is minimal left basilar atelectasis as well. The heart size is normal. Impression: Increased right basilar atelectasis. Otherwise little exchange mechanic one day, findings as noted Microbiology Date/Time Source Procedure Growth Status 03/26/20 19:15 Blood Blood Culture - Final NO GROWTH AFTER 5 DAYS Complete 03/27/20 19:15 Nasal Nares MRSA Culture - Final NO METHICILLIN RESISTANT STAPH AUREUS... Complete 03/28/20 18:30 Urine,Catheterized Urine Culture - Final NO GROWTH AFTER 48 HOURS Complete 03/27/20 19:15 Rectum - Final NO CARBAPENEM-RESISTANT ENTEROBACTERI... Complete Laboratory Tests Test 04/02/20 04:02 04/02/20 09:02 White Blood Count 16.8 K/UL (4.8-10.8) H Red Blood Count 3.77 M/UL (4.20-5.40) L Hemoglobin 9.8 G/DL (12.0-16.0) L Hematocrit 33.6 % (37.0-47.0) L Mean Corpuscular Volume 89 FL (80-99) Mean Corpuscular Hemoglobin 25.9 PG (27.0-31.0) L Mean Corpuscular Hemoglobin Concent 29.1 G/DL (32.0-36.0) L Red Cell Distribution Width 21.3 % (11.6-14.8) H Platelet Count 189 K/UL (150-450) Mean Platelet Volume 6.1 FL (6.5-10.1) L Neutrophils (%) (Auto) 81.7 % (45.0-75.0) H Lymphocytes (%) (Auto) 6.3 % (20.0-45.0) L Monocytes (%) (Auto) 10.5 % (1.0-10.0) H Eosinophils (%) (Auto) 0.1 % (0.0-3.0) Basophils (%) (Auto) 1.4 % (0.0-2.0) Sodium Level 148 MMOL/L (136-145) H Potassium Level 4.8 MMOL/L (3.5-5.1) # Chloride Level 111 MMOL/L (98-107) H Carbon Dioxide Level 22 MMOL/L (21-32) Anion Gap 15 mmol/L (5-15) Blood Urea Nitrogen 89 mg/dL (7-18) H Creatinine 2.4 MG/DL (0.55-1.30) H Estimat Glomerular Filtration Rate 24.4 mL/min (>60) Glucose Level 117 MG/DL (74-106) H Calcium Level 7.9 MG/DL (8.5-10.1) L Phosphorus Level 3.7 MG/DL (2.5-4.9) Magnesium Level 1.8 MG/DL (1.8-2.4) Total Bilirubin 0.5 MG/DL (0.2-1.0) Aspartate Amino Transf (AST/SGOT) 37 U/L (15-37) Alanine Aminotransferase (ALT/SGPT) 21 U/L (12-78) Alkaline Phosphatase 142 U/L (46-116) H Total Protein 5.3 G/DL (6.4-8.2) L Albumin 1.9 G/DL (3.4-5.0) L Globulin 3.4 g/dL Albumin/Globulin Ratio 0.6 (1.0-2.7) L Random Vancomycin Level 18.1 ug/mL Arterial Blood pH 7.369 (7.350-7.450) Arterial Blood Partial Pressure CO2 41.5 mmHg (35.0-45.0) Arterial Blood Partial Pressure O2 98.6 mmHg (75.0-100.0) Arterial Blood HCO3 23.4 mmol/L (22.0-26.0) Arterial Blood Oxygen Saturation 96.6 % (95-100) Arterial Blood Base Excess -1.8 (-2-2) Kelvin Test Positive Current Medications Medications (Trade) Dose Ordered Sig/Debbie Route PRN Reason Start Time Stop Time Status Last Admin Dose Admin Acetaminophen (Tylenol) 650 mg Q4H PRN ORAL Temp >100.5 03/26/20 21:15 04/25/20 21:14 04/01/20 05:32 Acetaminophen (Tylenol) 650 mg Q4H PRN ORAL Mild Pain (Pain Scale 1-3) 03/26/20 21:15 04/25/20 21:14 Al Hydroxide/Mg Hydroxide (Mylanta II) 30 ml Q6H PRN ORAL dyspepsia 03/26/20 21:15 04/25/20 21:14 Bisacodyl (Dulcolax) 10 mg HSPRN PRN RECTAL Constipation 03/26/20 21:15 06/24/20 21:14 Cefepime HCl 1 gm/ Dextrose 55 ml @ 110 mls/hr Q24H IVPB 03/28/20 15:00 04/04/20 14:59 04/02/20 14:36 Chlorhexidine Gluconate (Laurie-Hex 2%) 1 applic DAILY@2000 TOPIC 03/28/20 20:00 06/26/20 19:59 04/02/20 20:32 Dextrose (Dextrose 50%) 25 ml Q30M PRN IV Hypoglycemia 03/26/20 21:15 06/24/20 21:14 Dextrose (Dextrose 50%) 50 ml Q30M PRN IV Hypoglycemia 03/26/20 21:15 06/24/20 21:14 Diltiazem HCl (Cardizem) 60 mg EVERY 8 HOURS NG 03/31/20 14:00 04/30/20 13:59 04/02/20 21:38 Diphenhydramine HCl (Benadryl) 25 mg Q6H PRN ORAL Itching/Pruritis 03/26/20 21:15 04/25/20 21:14 Docusate Sodium (Colace) 100 mg Q12HR NG 03/30/20 09:00 04/29/20 08:59 04/02/20 20:32 Gabapentin (Neurontin) 300 mg BEDTIME ORAL 03/27/20 21:00 04/26/20 20:59 04/02/20 20:32 Lorazepam (Ativan 2mg/ml 1ml) 0.5 mg Q4H PRN IV For Anxiety 04/01/20 13:15 04/08/20 13:14 Magnesium Hydroxide (Mom) 30 ml HSPRN PRN ORAL Constipation 03/26/20 21:15 04/25/20 21:14 Metoclopramide HCl (Reglan) 10 mg Q6H PRN IVP Nausea & Vomiting 03/26/20 21:15 04/25/20 21:14 Metronidazole 100 ml @ 100 mls/hr Q8HR IVPB 03/27/20 22:00 04/03/20 21:59 04/02/20 21:37 Morphine Sulfate (Morphine Sulfate) 2 mg Q4H PRN IVP Moderate Pain (Pain Scale 4-6) 04/01/20 13:15 04/08/20 13:14 Morphine Sulfate (Morphine Sulfate) 4 mg Q4H PRN IVP Severe Pain (Pain Scale 7-10) 04/01/20 13:15 04/08/20 13:14 04/02/20 21:15 Norepinephrine Bitartrate 4 mg/ Dextrose 250 ml @ 0 mls/hr Q24H IV 03/28/20 16:00 04/27/20 15:59 Ondansetron HCl (Zofran) 4 mg Q6H PRN IVP Nausea & Vomiting 03/26/20 21:15 04/25/20 21:14 Pantoprazole (Protonix) 40 mg DAILY IVP 04/01/20 09:00 05/01/20 08:59 04/02/20 08:37 Polyethylene Glycol (Miralax) 17 gm HSPRN PRN ORAL Constipation 03/26/20 21:15 04/25/20 21:14 Rivaroxaban (Xarelto) 15 mg DAILY NG 03/31/20 09:00 06/29/20 08:59 04/02/20 08:36 Sevelamer Carbonate (Renvela) 1,600 mg THREE TIMES A DAY NG 03/31/20 09:00 06/27/20 08:59 04/02/20 17:48 Sodium Chloride 1,000 ml @ 50 mls/hr Q20H IV 03/30/20 14:45 04/29/20 14:44 04/02/20 03:35 Temazepam (Restoril) 15 mg HSPRN PRN ORAL Insomnia 04/01/20 10:15 04/08/20 10:14 Vancomycin HCl ([facility] pharmacy to dose) 1 ea DAILY PRN MISC Per rx protocol 03/27/20 20:15 04/26/20 20:14 Jose Valdes MD Apr 02, 2020 22:21
[2020-04-02] MEDS ORDERED: Cefepime HCl 1 GM in D5W 55 ML IVPB ONE (23:00)
[2020-04-03] VITALS (68 sets, daily range): BP systolic 103–187; BP diastolic 47–121
[2020-04-03] MEDS: Morphine Sulfate 4mg/ml Inj (IV USE ONLY) IVP PRN (02:28)
--- NOTE | 2020-04-03 02:45 | NUR ---
NURSE NOTES: Pt went to A flutter rate 170-180s, 12 lead EKG was done,
--- NOTE | 2020-04-03 02:50 | NUR ---
NURSE NOTES: Notify DR Mendez and Dr Crooks, awaiting for md to call back.
[2020-04-03] MEDS ORDERED: dilTIAZem HCl 25mg/5ml Inj ONE (03:00)
[2020-04-03] MEDS ORDERED: dilTIAZem HCl 25mg/5ml Inj IVP SCH (03:00)
--- NOTE | 2020-04-03 03:00 | NUR ---
NURSE NOTES: Dr Boyce called back and was aware of pts dysrhythmia A flutter rate 170-180s with orders to give x1 cardizem 10mg ivp followed with cardizem drip.
[2020-04-03] MEDS ORDERED: dilTIAZem HCl 125mg/25ml Inj IVPB ONE (03:16)
[2020-04-03] MEDS: dilTIAZem Premix 125mg/125ml 125 ML IVPB SCH ×3 (03:26→21:36)
[2020-04-03] MEDS: dilTIAZem HCl 60mg tab NG SCH (06:00)
[2020-04-03 06:03] LABS: BASOPHILS % (AUTO) 3.1 % (0.0-2.0); HEMATOCRIT 29.2 % (37.0-47.0); HEMOGLOBIN 8.9 G/DL (12.0-16.0); LYMPHOCYTES % (AUTO) 5.2 % (20.0-45.0); MEAN CORPUSCULAR VOLUME 88 FL (80-99); MONOCYTES % (AUTO) 7.8 % (1.0-10.0); PLATELET COUNT 180 K/UL (150-450); WHITE BLOOD COUNT 3.9 K/UL (4.8-10.8)
[2020-04-03 06:04] LABS: ALANINE AMINOTRANSFERASE 16 U/L (12-78); ALBUMIN 1.8 G/DL (3.4-5.0); ALBUMIN/GLOBULIN RATIO 0.4 (1.0-2.7); ALKALINE PHOSPHATASE 113 U/L (46-116); ANION GAP 13 mmol/L (5-15); ASPARTATE AMINO TRANSFERASE 29 U/L (15-37); BILIRUBIN,TOTAL 0.4 MG/DL (0.2-1.0); BLOOD UREA NITROGEN 79 mg/dL (7-18); CALCIUM 8.4 MG/DL (8.5-10.1); CARBON DIOXIDE 21 MMOL/L (21-32); CHLORIDE 110 MMOL/L (98-107); CREATININE 1.8 MG/DL (0.55-1.30); PHOSPHORUS 2.5 MG/DL (2.5-4.9); POTASSIUM 3.8 MMOL/L (3.5-5.1); SODIUM 144 MMOL/L (136-145)
--- NOTE | 2020-04-03 07:15 | NUR ---
NURSE NOTES: Dr Dean here to see the patient. Updated him with pt's current condition including elevated HR 160-170's with flutter. Digoxin 0.5 IVP was ordered and given by JOSSELYN Juan.
[2020-04-03] MEDS ORDERED: Digoxin 0.5mg/2ml Inj IVP ONE (07:19)
--- NOTE | 2020-04-03 07:20 | NUR ---
NURSE NOTES: Report received from JOSSELYN Juan. Pt is wide awake and able to verbalize needs. Able to follow simple commands. A-flutter with HR 160-170's on creative services manager. Rectal temp 100.7. Orally unintubated with T-piece. 35%. Right NGT in place receiving Vital AF 1.2 at 55cc/hr. Left colostomy bag noted. Desai in place draining to gravity. DOMENICA PICC line patent and asymptomatic. Pt is on 1/2NS is running at 50cc/hr and Cardizem drip at 15mg/hr. Bed in lowest position. Side rails up x3. Will resume plan of care.
--- NOTE | 2020-04-03 07:24 | Cardiac Electrophysiology PN ---
Subjective Subjective [id number] Objective Last 24 Hour Vital Signs Date Time Temp Pulse Resp B/P (MAP) Pulse Ox O2 Delivery O2 Flow Rate FiO2 04/03/20 06:30 170 22 04/03/20 05:45 175 23 135/67 (89) 04/03/20 05:35 178 25 142/70 (94) 94 04/03/20 05:30 177 34 142/50 (80) 04/03/20 05:15 176 32 140/85 (103) 04/03/20 05:00 176 33 150/66 (94) 92 04/03/20 04:45 177 23 126/79 (95) 04/03/20 04:30 170 25 123/66 (85) 04/03/20 04:15 183 30 128/79 (95) 96 04/03/20 04:00 82 04/03/20 04:00 Mechanical Ventilator 04/03/20 04:00 35 04/03/20 04:00 100.6 187 24 144/86 (105) 04/03/20 03:45 186 28 154/121 (132) 04/03/20 03:30 187 34 117/75 (89) 04/03/20 03:15 180 26 150/91 (110) 04/03/20 03:12 174 174/71 04/03/20 03:00 186 26 174/71 (105) 04/03/20 02:45 172 32 174/80 (111) 04/03/20 02:30 172 27 165/100 (121) 04/03/20 02:15 100.6 177 24 178/108 (131) 93 04/03/20 02:00 144 25 177/84 (115) 100 04/03/20 01:05 100 T-Piece 8.0 35 04/03/20 01:00 129 24 167/77 (107) 04/03/20 00:00 119 22 176/76 (109) 100 04/03/20 00:00 Mechanical Ventilator 04/02/20 23:30 116 19 167/77 (107) 100 04/02/20 23:00 107 16 156/77 (103) 100 04/02/20 22:30 106 20 132/115 (121) 100 04/02/20 22:00 100 14 155/70 (98) 100 04/02/20 21:38 87 148/50 04/02/20 21:30 98 13 146/68 (94) 100 04/02/20 21:00 106 15 151/78 (102) 100 04/02/20 20:30 93 14 132/59 (83) 100 04/02/20 20:00 87 04/02/20 20:00 98.5 88 10 135/63 (87) 100 04/02/20 20:00 35 04/02/20 20:00 Mechanical Ventilator 04/02/20 20:00 100 T-Piece 8.0 35 04/02/20 19:00 11 144/79 T-piece 35 04/02/20 19:00 85 11 144/79 (100) 100 04/02/20 18:30 85 11 146/61 (89) 100 04/02/20 18:00 86 13 141/63 (89) 100 04/02/20 18:00 11 146/61 T-piece 35 04/02/20 17:30 93 13 121/52 (75) 100 04/02/20 17:00 92 12 134/54 (80) 100 04/02/20 17:00 12 134/54 T-piece 35 04/02/20 16:30 87 9 128/53 (78) 100 04/02/20 16:00 Mechanical Ventilator 04/02/20 16:00 91 04/02/20 16:00 12 120/61 T-piece 35 04/02/20 16:00 120/61 04/02/20 16:00 97.3 83 12 120/61 (80) 100 04/02/20 15:30 88 10 123/52 (75) 100 04/02/20 15:02 35 04/02/20 15:00 92 12 121/54 (76) 100 04/02/20 15:00 12 121/54 T-piece 35 04/02/20 14:38 16 118/50 Mechanical Ventilator 35 04/02/20 14:30 93 15 118/50 (72) 99 04/02/20 14:00 93 15 107/49 (68) 99 04/02/20 14:00 15 107/49 T-piece 35 04/02/20 13:33 93 112/57 04/02/20 13:30 90 11 111/52 (71) 100 04/02/20 13:00 12 114/53 T-piece 35 04/02/20 13:00 87 12 114/53 (73) 100 04/02/20 12:30 81 13 107/57 (74) 100 04/02/20 12:00 79 04/02/20 12:00 Mechanical Ventilator 04/02/20 12:00 13 126/67 T-piece 35 04/02/20 12:00 35 04/02/20 12:00 97.2 82 13 126/67 (86) 100 04/02/20 11:30 90 15 149/84 (105) 99 04/02/20 11:08 35 04/02/20 11:00 10 121/64 T-piece 35 04/02/20 11:00 73 10 121/64 (83) 100 04/02/20 10:30 74 10 115/57 (76) 100 04/02/20 10:00 10 114/62 Mechanical Ventilator 30 04/02/20 10:00 74 10 114/62 (79) 100 04/02/20 09:30 76 11 122/58 (79) 100 04/02/20 09:00 101 15 149/76 (100) 99 04/02/20 09:00 15 149/76 Mechanical Ventilator 30 04/02/20 08:37 99 152/61 04/02/20 08:30 100 15 152/61 (91) 99 04/02/20 08:00 30 04/02/20 08:00 16 149/62 Mechanical Ventilator 30 04/02/20 08:00 Mechanical Ventilator 04/02/20 08:00 98.7 100 16 149/62 (91) 99 04/02/20 08:00 105 04/02/20 07:49 100 04/02/20 07:45 101 24 30 04/02/20 07:30 100 16 142/84 (103) 97 Intake and Output 04/02/20 04/03/20 19:00 07:00 Intake Total 1975.0 ml 1285 ml Output Total 1055 ml 705 ml Balance 920.0 ml 580 ml Intake Free Water 220 ml 100 ml IV Total 1065.0 ml 580 ml Tube Feeding 660 ml 605 ml Other 30 ml Output Urine Total 980 ml 705 ml Stool Total 75 ml # Bowel Movements 50 Laboratory Tests Test 04/02/20 09:02 04/03/20 04:50 Arterial Blood pH 7.369 (7.350-7.450) Arterial Blood Partial Pressure CO2 41.5 mmHg (35.0-45.0) Arterial Blood Partial Pressure O2 98.6 mmHg (75.0-100.0) Arterial Blood HCO3 23.4 mmol/L (22.0-26.0) Arterial Blood Oxygen Saturation 96.6 % (95-100) Arterial Blood Base Excess -1.8 (-2-2) Kelvin Test Positive White Blood Count 3.9 K/UL (4.8-10.8) #L Red Blood Count 3.30 M/UL (4.20-5.40) L Hemoglobin 8.9 G/DL (12.0-16.0) L Hematocrit 29.2 % (37.0-47.0) L Mean Corpuscular Volume 88 FL (80-99) Mean Corpuscular Hemoglobin 27.1 PG (27.0-31.0) Mean Corpuscular Hemoglobin Concent 30.6 G/DL (32.0-36.0) L Red Cell Distribution Width 22.0 % (11.6-14.8) H Platelet Count 180 K/UL (150-450) Mean Platelet Volume 6.1 FL (6.5-10.1) L Neutrophils (%) (Auto) 78.0 % (45.0-75.0) H Lymphocytes (%) (Auto) 5.2 % (20.0-45.0) L Monocytes (%) (Auto) 7.8 % (1.0-10.0) Eosinophils (%) (Auto) 6.0 % (0.0-3.0) H Basophils (%) (Auto) 3.1 % (0.0-2.0) H Sodium Level 144 MMOL/L (136-145) Potassium Level 3.8 MMOL/L (3.5-5.1) Chloride Level 110 MMOL/L (98-107) H Carbon Dioxide Level 21 MMOL/L (21-32) Anion Gap 13 mmol/L (5-15) Blood Urea Nitrogen 79 mg/dL (7-18) H Creatinine 1.8 MG/DL (0.55-1.30) H Estimat Glomerular Filtration Rate 33.9 mL/min (>60) Glucose Level 157 MG/DL (74-106) H Calcium Level 8.4 MG/DL (8.5-10.1) L Phosphorus Level 2.5 MG/DL (2.5-4.9) Magnesium Level 1.5 MG/DL (1.8-2.4) L Total Bilirubin 0.4 MG/DL (0.2-1.0) Aspartate Amino Transf (AST/SGOT) 29 U/L (15-37) Alanine Aminotransferase (ALT/SGPT) 16 U/L (12-78) Alkaline Phosphatase 113 U/L (46-116) Total Protein 5.8 G/DL (6.4-8.2) L Albumin 1.8 G/DL (3.4-5.0) L Globulin 4.0 g/dL Albumin/Globulin Ratio 0.4 (1.0-2.7) L Carlos Dean MD Apr 03, 2020 07:24
[2020-04-03] MEDS ORDERED: Digoxin 0.5mg/2ml Inj IVP SCH (07:30)
--- NOTE | 2020-04-03 07:54 | NUR ---
RD ASSESSMENT & RECOMMENDATIONS SEE CARE ACTIVITY FOR COMPLETE ASSESSMENT DAILY ESTIMATED NEEDS: Needs based on Critical care, sepsis, wound, VENTURA 75.8kg adj 20-28 kcals/kg 2725-8364 total kcals 1-1.5 g protein/kg 76-114 g total protein 25-30 mL/kg 1209-5982 total fluid mLs NUTRITION DIAGNOSIS: Swallowing difficulty r/t respiratory status as evidenced by pt orally intubated, on NGT feeds. ENTERAL NUTRITION RECOMMENDATIONS: VITAL AF 1.2 @55ml/hr x24 hrs to provide 1320ml, 1584 kcal, 99g pro, 1071ml free H2O - Maintain at goal as tolerated - Flush per MD/ HOB over 30 degree -> IF PHOSPHORUS REMAINS ELEVATED-> Rec NEPRO w/ goal rate of 40ml/hr for 24 hrs to provide 960ml, 1728 kcal, 78g pro, 698ml free H2O. ADDITIONAL RECOMMENDATIONS: 1) Maintain calibrated bed scale wts (289lbs vs 248lbs vs 217lbs last adm) 2) Monitor renal fxn and lytes closely, need for renal formula --> Creat trending down, K and phos wnl 3) Wound healing: ZnSO4 220mg QD x 10 days+ Boris BID via NGT hold vit C until renal fxn improves 4) NISS w/ TF- h/o DM .
[2020-04-03] MEDS: Amiodarone 900 MG in D5W 500ml 482 ML IV SCH (08:27)
[2020-04-03] MEDS: Renvela 800mg Pkt NG SCH ×2 (08:31→12:38)
[2020-04-03] MEDS: Pantoprazole Inj IVP SCH (08:31)
[2020-04-03] MEDS: Docusate 100mg/10ml Liq NG SCH ×2 (08:31→20:22)
[2020-04-03] MEDS: Xarelto 15mg tab NG SCH (08:31)
[2020-04-03] MEDS: Morphine Sulfate 2mg/ml Inj(IV/IM USE ONLY) IVP PRN (08:33)
--- NOTE | 2020-04-03 08:34 | NUR ---
NURSE NOTES: PRN Morphine 2mg IVP given for pain. Will continue to monitor.
--- NOTE | 2020-04-03 08:40 | NUR ---
NURSE NOTES: Notified Dr Cordova regarding elevated HR 160-170's and that Digoxin 0.5 IVP, Amio 150mg bolus, and Amio drip as per protocol given for the HR. Order to put the patient back to AC mode and give PRN Ativan 1mg IVP for anxiety received, noted, and carried out.
[2020-04-03] MEDS: LORazepam Inj 2mg/ml 1ml IV PRN (10:18)
--- NOTE | 2020-04-03 10:18 | NUR ---
NURSE NOTES: HR is still in 150's on monitor tech. Pt is currently on Cardizem at 15mg/hr and Amiodarone drip at 1mg/min. Pt is anxious and still in leg pain. PRN Tylenol 650mg and 1 mg Ativan given for pain and anxiety.
--- NOTE | 2020-04-03 10:38 | NUR ---
RADIOLOGY DEPT., CHEST X-RAY DONE.-P.DYE
--- NOTE | 2020-04-03 10:57 | Pulmonology Progress Note ---
Subjective ROS Limited/Unobtainable: Yes Interval Events: Replaced on AC mode; tachyvcardic, on amio and cardizem Constitutional: Reports: no symptoms; Denies: fever HEENT: Repors: no symptoms Respiratory: Reports: no symptoms Cardiovascular: Reports: no symptoms Gastrointestinal/Abdominal: Reports: no symptoms; Denies: nausea, vomiting, diarrhea Psychiatric: Reports: other - NA Skin: Denies: rash Musculoskeletal: Reports: pain Allergies: Coded Allergies: LISINOPRIL (Verified Allergy, Unknown, Hives, 04/12/14) Objective Last 24 Hour Vital Signs Date Time Temp Pulse Resp B/P (MAP) Pulse Ox O2 Delivery O2 Flow Rate FiO2 04/03/20 10:36 154 29 30 04/03/20 09:00 100.1 156 30 146/91 (109) 100 04/03/20 08:45 156 33 137/75 (95) 100 04/03/20 08:30 158 29 147/75 (99) 99 04/03/20 08:15 158 29 133/50 (77) 98 04/03/20 08:00 Mechanical Ventilator 04/03/20 08:00 100.7 161 32 142/64 (90) 100 04/03/20 08:00 30 04/03/20 07:51 167 04/03/20 07:45 167 31 146/67 (93) 100 04/03/20 07:30 166 29 160/66 (97) 100 04/03/20 07:24 Mechanical Ventilator 04/03/20 07:22 167 35 30 04/03/20 07:15 168 27 144/73 (96) 100 04/03/20 07:00 170 29 146/70 (95) 99 04/03/20 06:30 170 22 04/03/20 05:45 175 23 135/67 (89) 04/03/20 05:35 178 25 142/70 (94) 94 04/03/20 05:30 177 34 142/50 (80) 04/03/20 05:15 176 32 140/85 (103) 04/03/20 05:00 176 33 150/66 (94) 92 04/03/20 04:45 177 23 126/79 (95) 04/03/20 04:30 170 25 123/66 (85) 04/03/20 04:15 183 30 128/79 (95) 96 04/03/20 04:00 82 04/03/20 04:00 Mechanical Ventilator 04/03/20 04:00 35 04/03/20 04:00 100.6 187 24 144/86 (105) 04/03/20 03:45 186 28 154/121 (132) 04/03/20 03:30 187 34 117/75 (89) 04/03/20 03:15 180 26 150/91 (110) 04/03/20 03:12 174 174/71 04/03/20 03:00 186 26 174/71 (105) 04/03/20 02:45 172 32 174/80 (111) 04/03/20 02:30 172 27 165/100 (121) 04/03/20 02:15 100.6 177 24 178/108 (131) 93 04/03/20 02:00 144 25 177/84 (115) 100 04/03/20 01:05 100 T-Piece 8.0 35 04/03/20 01:00 129 24 167/77 (107) 04/03/20 00:00 119 22 176/76 (109) 100 04/03/20 00:00 Mechanical Ventilator 04/02/20 23:30 116 19 167/77 (107) 100 04/02/20 23:00 107 16 156/77 (103) 100 04/02/20 22:30 106 20 132/115 (121) 100 04/02/20 22:00 100 14 155/70 (98) 100 04/02/20 21:38 87 148/50 04/02/20 21:30 98 13 146/68 (94) 100 04/02/20 21:00 106 15 151/78 (102) 100 04/02/20 20:30 93 14 132/59 (83) 100 04/02/20 20:00 87 04/02/20 20:00 98.5 88 10 135/63 (87) 100 04/02/20 20:00 35 04/02/20 20:00 Mechanical Ventilator 04/02/20 20:00 100 T-Piece 8.0 35 04/02/20 19:00 11 144/79 T-piece 35 04/02/20 19:00 85 11 144/79 (100) 100 04/02/20 18:30 85 11 146/61 (89) 100 04/02/20 18:00 86 13 141/63 (89) 100 04/02/20 18:00 11 146/61 T-piece 35 04/02/20 17:30 93 13 121/52 (75) 100 04/02/20 17:00 92 12 134/54 (80) 100 04/02/20 17:00 12 134/54 T-piece 35 04/02/20 16:30 87 9 128/53 (78) 100 04/02/20 16:00 Mechanical Ventilator 04/02/20 16:00 91 04/02/20 16:00 12 120/61 T-piece 35 04/02/20 16:00 120/61 04/02/20 16:00 97.3 83 12 120/61 (80) 100 04/02/20 15:30 88 10 123/52 (75) 100 04/02/20 15:02 35 04/02/20 15:00 92 12 121/54 (76) 100 04/02/20 15:00 12 121/54 T-piece 35 04/02/20 14:38 16 118/50 Mechanical Ventilator 35 04/02/20 14:30 93 15 118/50 (72) 99 04/02/20 14:00 93 15 107/49 (68) 99 04/02/20 14:00 15 107/49 T-piece 35 04/02/20 13:33 93 112/57 04/02/20 13:30 90 11 111/52 (71) 100 04/02/20 13:00 12 114/53 T-piece 35 04/02/20 13:00 87 12 114/53 (73) 100 04/02/20 12:30 81 13 107/57 (74) 100 04/02/20 12:00 79 04/02/20 12:00 Mechanical Ventilator 04/02/20 12:00 13 126/67 T-piece 35 04/02/20 12:00 35 04/02/20 12:00 97.2 82 13 126/67 (86) 100 04/02/20 11:30 90 15 149/84 (105) 99 04/02/20 11:08 35 04/02/20 11:00 10 121/64 T-piece 35 04/02/20 11:00 73 10 121/64 (83) 100 Intake and Output 04/02/20 04/03/20 19:00 07:00 Intake Total 1975.0 ml 1350 ml Output Total 1055 ml 705 ml Balance 920.0 ml 645 ml Intake Free Water 220 ml 100 ml IV Total 1065.0 ml 645 ml Tube Feeding 660 ml 605 ml Other 30 ml Output Urine Total 980 ml 705 ml Stool Total 75 ml # Bowel Movements 50 General Appearance: no acute distress HEENT: normocephalic Respiratory: chest wall non-tender, lungs clear Cardiovascular: normal peripheral pulses, normal rate Abdomen: normal bowel sounds Laboratory Tests 04/03/20 04:50: White Blood Count 3.9#L, Red Blood Count 3.30L, Hemoglobin 8.9L, Hematocrit 29.2L, Mean Corpuscular Volume 88, Mean Corpuscular Hemoglobin 27.1, Mean Corpuscular Hemoglobin Concent 30.6L, Red Cell Distribution Width 22.0H, Platelet Count 180, Mean Platelet Volume 6.1L, Neutrophils (%) (Auto) 78.0H, Lymphocytes (%) (Auto) 5.2L, Monocytes (%) (Auto) 7.8, Eosinophils (%) (Auto) 6.0H, Basophils (%) (Auto) 3.1H, Sodium Level 144, Potassium Level 3.8, Chloride Level 110H, Carbon Dioxide Level 21, Anion Gap 13, Blood Urea Nitrogen 79H, Creatinine 1.8H, Estimat Glomerular Filtration Rate 33.9, Glucose Level 157H, Calcium Level 8.4L, Phosphorus Level 2.5, Magnesium Level 1.5L, Total Bilirubin 0.4, Aspartate Amino Transf (AST/SGOT) 29, Alanine Aminotransferase ( ALT/SGPT) 16, Alkaline Phosphatase 113, Total Protein 5.8L, Albumin 1.8L, Globulin 4.0, Albumin/Globulin Ratio 0.4L Current Medications Medications (Trade) Dose Ordered Sig/Debbie Route PRN Reason Start Time Stop Time Status Last Admin Dose Admin Acetaminophen (Tylenol) 650 mg Q4H PRN ORAL Temp >100.5 03/26/20 21:15 04/25/20 21:14 04/01/20 05:32 Acetaminophen (Tylenol) 650 mg Q4H PRN ORAL Mild Pain (Pain Scale 1-3) 03/26/20 21:15 04/25/20 21:14 04/03/20 10:18 Al Hydroxide/Mg Hydroxide (Mylanta II) 30 ml Q6H PRN ORAL dyspepsia 03/26/20 21:15 04/25/20 21:14 Amiodarone HCl 900 mg/Dextrose 500 ml @ 0 mls/hr Q24H IV 04/03/20 09:00 04/04/20 08:59 04/03/20 08:27 Bisacodyl (Dulcolax) 10 mg HSPRN PRN RECTAL Constipation 03/26/20 21:15 06/24/20 21:14 Cefepime HCl 2 gm/ Dextrose 100 ml @ 200 mls/hr Q24HRS IVPB 04/03/20 15:00 04/10/20 14:59 Chlorhexidine Gluconate (Laurie-Hex 2%) 1 applic DAILY@2000 TOPIC 03/28/20 20:00 06/26/20 19:59 04/02/20 20:32 Dextrose (Dextrose 50%) 25 ml Q30M PRN IV Hypoglycemia 03/26/20 21:15 06/24/20 21:14 Dextrose (Dextrose 50%) 50 ml Q30M PRN IV Hypoglycemia 03/26/20 21:15 06/24/20 21:14 Diltiazem HCl 125 ml @ 0 mls/hr Q24H IVPB 04/03/20 03:00 04/04/20 02:59 04/03/20 03:26 Diphenhydramine HCl (Benadryl) 25 mg Q6H PRN ORAL Itching/Pruritis 03/26/20 21:15 04/25/20 21:14 Docusate Sodium (Colace) 100 mg Q12HR NG 03/30/20 09:00 04/29/20 08:59 04/03/20 08:31 Gabapentin (Neurontin) 300 mg BEDTIME ORAL 03/27/20 21:00 04/26/20 20:59 04/02/20 20:32 Lorazepam (Ativan 2mg/ml 1ml) 1 mg Q4H PRN IV For Anxiety 04/03/20 09:15 04/08/20 13:14 04/03/20 10:18 Magnesium Hydroxide (Mom) 30 ml HSPRN PRN ORAL Constipation 03/26/20 21:15 04/25/20 21:14 Metoclopramide HCl (Reglan) 10 mg Q6H PRN IVP Nausea & Vomiting 03/26/20 21:15 04/25/20 21:14 Metronidazole 100 ml @ 100 mls/hr Q8HR IVPB 04/03/20 06:00 04/10/20 05:59 04/03/20 05:46 Morphine Sulfate (Morphine Sulfate) 2 mg Q4H PRN IVP Moderate Pain (Pain Scale 4-6) 04/01/20 13:15 04/08/20 13:14 04/03/20 08:33 Morphine Sulfate (Morphine Sulfate) 4 mg Q4H PRN IVP Severe Pain (Pain Scale 7-10) 04/01/20 13:15 04/08/20 13:14 04/03/20 02:28 Norepinephrine Bitartrate 4 mg/ Dextrose 250 ml @ 0 mls/hr Q24H IV 03/28/20 16:00 04/27/20 15:59 Ondansetron HCl (Zofran) 4 mg Q6H PRN IVP Nausea & Vomiting 03/26/20 21:15 04/25/20 21:14 Pantoprazole (Protonix) 40 mg DAILY IVP 04/01/20 09:00 05/01/20 08:59 04/03/20 08:31 Polyethylene Glycol (Miralax) 17 gm HSPRN PRN ORAL Constipation 03/26/20 21:15 04/25/20 21:14 Rivaroxaban (Xarelto) 15 mg DAILY NG 03/31/20 09:00 06/29/20 08:59 04/03/20 08:31 Sevelamer Carbonate (Renvela) 1,600 mg THREE TIMES A DAY NG 03/31/20 09:00 06/27/20 08:59 04/03/20 08:31 Sodium Chloride 1,000 ml @ 50 mls/hr Q20H IV 03/30/20 14:45 04/29/20 14:44 04/03/20 00:02 Temazepam (Restoril) 15 mg HSPRN PRN ORAL Insomnia 04/01/20 10:15 04/08/20 10:14 Vancomycin HCl (Vanco pharmacy to dose) 1 ea DAILY PRN MISC Per rx protocol 03/27/20 20:15 04/26/20 20:14 Assessment/Plan Assessment/Plan IMPRESSION: 1. Hyperkalemia. Corrected 2. Tachycardia; on drips 3. Sepsis 4. Hypertension. 5. Seizure disorder. 6. Acute renal failure. 7. Respiratory failure DISCUSSION: Continue ICU care Correction of electrolytes Now on 30% FiO2 Back on AC mode till cardiac rhythm stabilizes Mentation poor; Also has thick gabriel-tracheal secretions Abx Seven Yao Omar Syed MD Apr 03, 2020 10:57
[2020-04-03 11:50] LABS: HEMATOCRIT 29.1 % (37.0-47.0); HEMOGLOBIN 8.6 G/DL (12.0-16.0); MEAN CORPUSCULAR VOLUME 87 FL (80-99); PLATELET COUNT 189 K/UL (150-450); RED BLOOD COUNT 3.35 M/UL (4.20-5.40); RED CELL DISTRIBUTION WIDTH 20.3 % (11.6-14.8); WHITE BLOOD COUNT 19.4 K/UL (4.8-10.8)
--- NOTE | 2020-04-03 12:04 | NUR ---
NURSE NOTES: Dr Mahoney here to see the patient. Updated her with patient's current condition. No new orders. HR 100's and fluctuates on monitoring tech. Will keep the same rate of Cardizem and Amiodarone. Rectal temp 98.9.
--- NOTE | 2020-04-03 12:26 | Internal Med Progress Note ---
Subjective Date of Service: Apr 03, 2020 Physician Name DenzelCami Attending Physician Malathi Mendez MD Current Medications Medications (Trade) Dose Ordered Sig/Debbie Route PRN Reason Start Time Stop Time Status Last Admin Dose Admin Acetaminophen (Tylenol) 650 mg Q4H PRN ORAL Temp >100.5 03/26/20 21:15 04/25/20 21:14 04/01/20 05:32 Acetaminophen (Tylenol) 650 mg Q4H PRN ORAL Mild Pain (Pain Scale 1-3) 03/26/20 21:15 04/25/20 21:14 04/03/20 10:18 Al Hydroxide/Mg Hydroxide (Mylanta II) 30 ml Q6H PRN ORAL dyspepsia 03/26/20 21:15 04/25/20 21:14 Amiodarone HCl 900 mg/Dextrose 500 ml @ 0 mls/hr Q24H IV 04/03/20 09:00 04/04/20 08:59 04/03/20 08:27 Bisacodyl (Dulcolax) 10 mg HSPRN PRN RECTAL Constipation 03/26/20 21:15 06/24/20 21:14 Cefepime HCl 2 gm/ Dextrose 100 ml @ 200 mls/hr Q24HRS IVPB 04/03/20 15:00 04/10/20 14:59 Chlorhexidine Gluconate (Laurie-Hex 2%) 1 applic DAILY@2000 TOPIC 03/28/20 20:00 06/26/20 19:59 04/02/20 20:32 Dextrose (Dextrose 50%) 25 ml Q30M PRN IV Hypoglycemia 03/26/20 21:15 06/24/20 21:14 Dextrose (Dextrose 50%) 50 ml Q30M PRN IV Hypoglycemia 03/26/20 21:15 06/24/20 21:14 Diltiazem HCl 125 ml @ 0 mls/hr Q24H IVPB 04/03/20 03:00 04/04/20 02:59 04/03/20 11:32 Diphenhydramine HCl (Benadryl) 25 mg Q6H PRN ORAL Itching/Pruritis 03/26/20 21:15 04/25/20 21:14 Docusate Sodium (Colace) 100 mg Q12HR NG 03/30/20 09:00 04/29/20 08:59 04/03/20 08:31 Gabapentin (Neurontin) 300 mg BEDTIME ORAL 03/27/20 21:00 04/26/20 20:59 04/02/20 20:32 Lorazepam (Ativan 2mg/ml 1ml) 1 mg Q4H PRN IV For Anxiety 04/03/20 09:15 04/08/20 13:14 04/03/20 10:18 Magnesium Hydroxide (Mom) 30 ml HSPRN PRN ORAL Constipation 03/26/20 21:15 04/25/20 21:14 Metoclopramide HCl (Reglan) 10 mg Q6H PRN IVP Nausea & Vomiting 03/26/20 21:15 04/25/20 21:14 Metronidazole 100 ml @ 100 mls/hr Q8HR IVPB 04/03/20 06:00 04/10/20 05:59 04/03/20 05:46 Morphine Sulfate (Morphine Sulfate) 2 mg Q4H PRN IVP Moderate Pain (Pain Scale 4-6) 04/01/20 13:15 04/08/20 13:14 04/03/20 08:33 Morphine Sulfate (Morphine Sulfate) 4 mg Q4H PRN IVP Severe Pain (Pain Scale 7-10) 04/01/20 13:15 04/08/20 13:14 04/03/20 02:28 Norepinephrine Bitartrate 4 mg/ Dextrose 250 ml @ 0 mls/hr Q24H IV 03/28/20 16:00 04/27/20 15:59 Ondansetron HCl (Zofran) 4 mg Q6H PRN IVP Nausea & Vomiting 03/26/20 21:15 04/25/20 21:14 Pantoprazole (Protonix) 40 mg DAILY IVP 04/01/20 09:00 05/01/20 08:59 04/03/20 08:31 Polyethylene Glycol (Miralax) 17 gm HSPRN PRN ORAL Constipation 03/26/20 21:15 04/25/20 21:14 Rivaroxaban (Xarelto) 15 mg DAILY NG 03/31/20 09:00 06/29/20 08:59 04/03/20 08:31 Sevelamer Carbonate (Renvela) 1,600 mg THREE TIMES A DAY NG 03/31/20 09:00 06/27/20 08:59 04/03/20 08:31 Sodium Chloride 1,000 ml @ 50 mls/hr Q20H IV 03/30/20 14:45 04/29/20 14:44 04/03/20 00:02 Temazepam (Restoril) 15 mg HSPRN PRN ORAL Insomnia 04/01/20 10:15 04/08/20 10:14 Vancomycin HCl (Vanco pharmacy to dose) 1 ea DAILY PRN MISC Per rx protocol 03/27/20 20:15 04/26/20 20:14 Allergies: Coded Allergies: LISINOPRIL (Verified Allergy, Unknown, Hives, 04/12/14) Subjective Patient has been recultured per infectious disease, remains on vancomycin, cefepime, Flagyl. Today patient had very elevated atrial flutter after being on T-bar all night, initially she was given digoxin did not respond so currently she is on a Cardizem drip and amiodarone drip as well. Appreciate consultants. Currently she is on FiO2 AC back on the ventilator. Renal function is improving slowly. At bedside she was alert. Objective Last Vital Signs Date Time Temp Pulse Resp B/P (MAP) Pulse Ox O2 Delivery O2 Flow Rate FiO2 04/03/20 12:00 Mechanical Ventilator 04/03/20 12:00 98.9 97 20 103/53 (70) 100 04/03/20 12:00 30 04/03/20 01:05 8.0 Laboratory Tests Test 04/03/20 04:50 04/03/20 11:30 White Blood Count 3.9 K/UL (4.8-10.8) #L 19.4 K/UL (4.8-10.8) #H Red Blood Count 3.30 M/UL (4.20-5.40) L 3.35 M/UL (4.20-5.40) L Hemoglobin 8.9 G/DL (12.0-16.0) L 8.6 G/DL (12.0-16.0) L Hematocrit 29.2 % (37.0-47.0) L 29.1 % (37.0-47.0) L Mean Corpuscular Volume 88 FL (80-99) 87 FL (80-99) Mean Corpuscular Hemoglobin 27.1 PG (27.0-31.0) 25.7 PG (27.0-31.0) L Mean Corpuscular Hemoglobin Concent 30.6 G/DL (32.0-36.0) L 29.6 G/DL (32.0-36.0) L Red Cell Distribution Width 22.0 % (11.6-14.8) H 20.3 % (11.6-14.8) H Platelet Count 180 K/UL (150-450) 189 K/UL (150-450) Mean Platelet Volume 6.1 FL (6.5-10.1) L 7.6 FL (6.5-10.1) Neutrophils (%) (Auto) 78.0 % (45.0-75.0) H % (45.0-75.0) Lymphocytes (%) (Auto) 5.2 % (20.0-45.0) L % (20.0-45.0) Monocytes (%) (Auto) 7.8 % (1.0-10.0) % (1.0-10.0) Eosinophils (%) (Auto) 6.0 % (0.0-3.0) H % (0.0-3.0) Basophils (%) (Auto) 3.1 % (0.0-2.0) H % (0.0-2.0) Sodium Level 144 MMOL/L (136-145) Potassium Level 3.8 MMOL/L (3.5-5.1) Chloride Level 110 MMOL/L (98-107) H Carbon Dioxide Level 21 MMOL/L (21-32) Anion Gap 13 mmol/L (5-15) Blood Urea Nitrogen 79 mg/dL (7-18) H Creatinine 1.8 MG/DL (0.55-1.30) H Estimat Glomerular Filtration Rate 33.9 mL/min (>60) Glucose Level 157 MG/DL (74-106) H Calcium Level 8.4 MG/DL (8.5-10.1) L Phosphorus Level 2.5 MG/DL (2.5-4.9) Magnesium Level 1.5 MG/DL (1.8-2.4) L Total Bilirubin 0.4 MG/DL (0.2-1.0) Aspartate Amino Transf (AST/SGOT) 29 U/L (15-37) Alanine Aminotransferase (ALT/SGPT) 16 U/L (12-78) Alkaline Phosphatase 113 U/L (46-116) Total Protein 5.8 G/DL (6.4-8.2) L Albumin 1.8 G/DL (3.4-5.0) L Globulin 4.0 g/dL Albumin/Globulin Ratio 0.4 (1.0-2.7) L Neutrophils % (Manual) Pending Lymphocytes % (Manual) Pending Platelet Estimate Pending Platelet Morphology Pending Urine Color Pending Urine Appearance Pending Urine pH Pending Urine Specific Mcdonough Pending Urine Protein Pending Urine Glucose (UA) Pending Urine Ketones Pending Urine Blood Pending Urine Nitrite Pending Urine Bilirubin Pending Urine Urobilinogen Pending Urine Leukocyte Esterase Pending Troponin I 0.018 ng/mL (0.000-0.056) Intake and Output 04/02/20 04/03/20 19:00 07:00 Intake Total 1975.0 ml 1405 ml Output Total 1055 ml 755 ml Balance 920.0 ml 650 ml Intake Free Water 220 ml 100 ml IV Total 1065.0 ml 645 ml Tube Feeding 660 ml 660 ml Other 30 ml Output Urine Total 980 ml 755 ml Stool Total 75 ml # Bowel Movements 50 Objective General Appearance: other - Intubated, ET tube in place EENT: PERRL/EOMI Cardiovascular: arrhythmia, irregularly irregular Respiratory/Chest: other - Vented lung sounds, Fi02 35% Abdomen: non tender, soft Edema: mild edema Neurologic: touch up carver II-XII grossly normal Skin: warm/dry Assessment/Plan Assessment/Plan Assessment #Acute Hypoxic Resp Failure #Afib w/ RVR, now in SR, off heparin gtt and on Xarelto #Acute Renal Failure 2/2 ATN from Rhabo --> BUN and creatinine still very elevated, consider HD if concern of Uremic Encephalopathy; slowly improving #Rhabdo #Sepsis, HCAP/UTI, COVID negative #Seizure vs prolonged period of immobility --> once extubated will investigate cause of Rhabdo and try to discern more info #Hx of Colectomy w/ Colostomy Plan Appreciate Consultants and ICU team Weening Trials Vancomyin, Cefepime, Flagyl, Win[place] Cx Amiodarone, Diltiazem, Metoprolol, S/P Digoxin 2/2 uncontrolled Aflutter Patient is on Apixiban [place] Bag care IVF per Nephro, may require HD given renal function but output good DVT and GI ppx; Tube Feeds * Will need to follow up why patient had Rhabdo? if Seizure hx could be uncontrolled seizure and then a neuro consult would be needed. Will look into s/ p extubation 04/02: Vent weening; f/u w/ ID recs regarding WBC and ongoing AB 04/03: Unable to wean patient as she has become hemodynamically unstable with elevated heart rate with atrial flutter in the 170s. Currently she is on amiodarone and Cardizem drip and did receive digoxin without good response today. We have recultured her , todd on broad-spectrum antibiotics with vancomycin, cefepime, Flagyl. Appreciate consultants. FiO2 at 35% on AC. Monitor urine output. Cami Mahoney D.O. Apr 03, 2020 12:26
--- NOTE | 2020-04-03 12:50 | Diagnostic Imaging Report ---
Procedure: XRAY Chest 1v Reason for study: Shortness of breath. Comparison films: 03/29/2020. FINDINGS: Endotracheal tube, NG tube and left PICC line remain in place. Vascularity is normal. There is worsening of bilateral infiltrates. Cardiac and mediastinal silhouette are within normal limits. CP angles are sharp. The bony thorax appear unremarkable. IMPRESSION: Worsening of bilateral infiltrates.
[2020-04-03 13:11] LABS: BILIRUBIN, URINE NEGATIVE (NEGATIVE); GLUCOSE, URINE (UA) NEGATIVE (NEGATIVE); KETONES,URINE NEGATIVE (NEGATIVE); LEUKOCYTE ESTERASE ,URINE 1+ (NEGATIVE); NITRITE,URINE NEGATIVE (NEGATIVE); PH,URINE 5 (4.5-8.0); PROTEIN,URINE 2+ (NEGATIVE); UROBILINOGEN,URINE NORMAL MG/DL (0.0-1.0)
--- NOTE | 2020-04-03 13:20 | Nephrology Progress Note ---
Assessment/Plan Plan #VENTURA due to ATN in the setting of rhabdo- on CKD #hyperkalemia #Rhabdo #UTI sepsis #Lactic acidsis #AMS - toxic metabolic encephalopathy #Hypoxemic resp failure #afib with RVR #HLD #Obesity - monitor UOP - continue 1/2NS at 50cc/h - Dilt and amiodarone drip per cardiology - monitor K,bmp - weiss placed - strict I&Os - vent management per Dr. Cordova - cardiology eval - ID consult - vanco and cefepime - flagyl - follow cx - monitor BMP, mag and phos daily - continue TF 30 minutes of critical care time- greater than 50% on care coordination and counseling Subjective ROS Limited/Unobtainable: Yes Subjective Cr slowly downtrending remains intubated tachycardc febrile on cefepime, vanco and flagyl WBC uptrending Objective Objective Last 24 Hour Vital Signs Date Time Temp Pulse Resp B/P (MAP) Pulse Ox O2 Delivery O2 Flow Rate FiO2 04/03/20 12:00 Mechanical Ventilator 04/03/20 12:00 98.9 97 20 103/53 (70) 100 04/03/20 12:00 30 04/03/20 11:30 119 18 124/53 (76) 100 04/03/20 11:25 93 04/03/20 11:00 116 18 119/67 (84) 04/03/20 10:36 154 29 30 04/03/20 10:30 155 20 144/86 (105) 100 04/03/20 10:00 152 30 135/84 (101) 99 04/03/20 09:30 157 22 163/74 (103) 100 04/03/20 09:15 158 29 161/77 (105) 100 04/03/20 09:00 100.1 156 30 146/91 (109) 100 04/03/20 08:45 156 33 137/75 (95) 100 04/03/20 08:30 158 29 147/75 (99) 99 04/03/20 08:24 160 04/03/20 08:15 158 29 133/50 (77) 98 04/03/20 08:00 Mechanical Ventilator 04/03/20 08:00 100.7 161 32 142/64 (90) 100 04/03/20 08:00 30 04/03/20 07:51 167 04/03/20 07:45 167 31 146/67 (93) 100 04/03/20 07:30 166 29 160/66 (97) 100 04/03/20 07:24 Mechanical Ventilator 04/03/20 07:22 167 35 30 04/03/20 07:15 168 27 144/73 (96) 100 04/03/20 07:00 170 29 146/70 (95) 99 04/03/20 06:30 170 22 04/03/20 05:45 175 23 135/67 (89) 04/03/20 05:35 178 25 142/70 (94) 94 04/03/20 05:30 177 34 142/50 (80) 04/03/20 05:15 176 32 140/85 (103) 04/03/20 05:00 176 33 150/66 (94) 92 04/03/20 04:45 177 23 126/79 (95) 04/03/20 04:30 170 25 123/66 (85) 04/03/20 04:15 183 30 128/79 (95) 96 04/03/20 04:00 82 04/03/20 04:00 Mechanical Ventilator 04/03/20 04:00 35 04/03/20 04:00 100.6 187 24 144/86 (105) 04/03/20 03:45 186 28 154/121 (132) 04/03/20 03:30 187 34 117/75 (89) 04/03/20 03:15 180 26 150/91 (110) 04/03/20 03:12 174 174/71 04/03/20 03:00 186 26 174/71 (105) 04/03/20 02:45 172 32 174/80 (111) 04/03/20 02:30 172 27 165/100 (121) 04/03/20 02:15 100.6 177 24 178/108 (131) 93 04/03/20 02:00 144 25 177/84 (115) 100 04/03/20 01:05 100 T-Piece 8.0 35 04/03/20 01:00 129 24 167/77 (107) 04/03/20 00:00 119 22 176/76 (109) 100 04/03/20 00:00 Mechanical Ventilator 04/02/20 23:30 116 19 167/77 (107) 100 04/02/20 23:00 107 16 156/77 (103) 100 04/02/20 22:30 106 20 132/115 (121) 100 04/02/20 22:00 100 14 155/70 (98) 100 04/02/20 21:38 87 148/50 04/02/20 21:30 98 13 146/68 (94) 100 04/02/20 21:00 106 15 151/78 (102) 100 04/02/20 20:30 93 14 132/59 (83) 100 04/02/20 20:00 87 04/02/20 20:00 98.5 88 10 135/63 (87) 100 04/02/20 20:00 35 04/02/20 20:00 Mechanical Ventilator 04/02/20 20:00 100 T-Piece 8.0 35 04/02/20 19:00 11 144/79 T-piece 35 04/02/20 19:00 85 11 144/79 (100) 100 04/02/20 18:30 85 11 146/61 (89) 100 04/02/20 18:00 86 13 141/63 (89) 100 04/02/20 18:00 11 146/61 T-piece 35 04/02/20 17:30 93 13 121/52 (75) 100 04/02/20 17:00 92 12 134/54 (80) 100 04/02/20 17:00 12 134/54 T-piece 35 04/02/20 16:30 87 9 128/53 (78) 100 04/02/20 16:00 Mechanical Ventilator 04/02/20 16:00 91 04/02/20 16:00 12 120/61 T-piece 35 04/02/20 16:00 120/61 04/02/20 16:00 97.3 83 12 120/61 (80) 100 04/02/20 15:30 88 10 123/52 (75) 100 04/02/20 15:02 35 04/02/20 15:00 92 12 121/54 (76) 100 04/02/20 15:00 12 121/54 T-piece 35 04/02/20 14:38 16 118/50 Mechanical Ventilator 35 04/02/20 14:30 93 15 118/50 (72) 99 04/02/20 14:00 93 15 107/49 (68) 99 04/02/20 14:00 15 107/49 T-piece 35 04/02/20 13:33 93 112/57 04/02/20 13:30 90 11 111/52 (71) 100 Intake and Output 04/02/20 04/03/20 19:00 07:00 Intake Total 1975.0 ml 1405 ml Output Total 1055 ml 755 ml Balance 920.0 ml 650 ml Intake Free Water 220 ml 100 ml IV Total 1065.0 ml 645 ml Tube Feeding 660 ml 660 ml Other 30 ml Output Urine Total 980 ml 755 ml Stool Total 75 ml # Bowel Movements 50 Laboratory Tests 04/03/20 04:50: White Blood Count 3.9#L, Red Blood Count 3.30L, Hemoglobin 8.9L, Hematocrit 29.2L, Mean Corpuscular Volume 88, Mean Corpuscular Hemoglobin 27.1, Mean Corpuscular Hemoglobin Concent 30.6L, Red Cell Distribution Width 22.0H, Platelet Count 180, Mean Platelet Volume 6.1L, Neutrophils (%) (Auto) 78.0H, Lymphocytes (%) (Auto) 5.2L, Monocytes (%) (Auto) 7.8, Eosinophils (%) (Auto) 6.0H, Basophils (%) (Auto) 3.1H, Sodium Level 144, Potassium Level 3.8, Chloride Level 110H, Carbon Dioxide Level 21, Anion Gap 13, Blood Urea Nitrogen 79H, Creatinine 1.8H, Estimat Glomerular Filtration Rate 33.9, Glucose Level 157H, Calcium Level 8.4L, Phosphorus Level 2.5, Magnesium Level 1.5L, Total Bilirubin 0.4, Aspartate Amino Transf (AST/SGOT) 29, Alanine Aminotransferase ( ALT/SGPT) 16, Alkaline Phosphatase 113, Total Protein 5.8L, Albumin 1.8L, Globulin 4.0, Albumin/Globulin Ratio 0.4L 04/03/20 11:30: White Blood Count 19.4#H, Red Blood Count 3.35L, Hemoglobin 8.6L, Hematocrit 29.1L, Mean Corpuscular Volume 87, Mean Corpuscular Hemoglobin 25.7L, Mean Corpuscular Hemoglobin Concent 29.6L, Red Cell Distribution Width 20.3H, Platelet Count 189, Mean Platelet Volume 7.6, Neutrophils (%) (Auto) , Lymphocytes (%) (Auto) , Monocytes (%) (Auto) , Eosinophils (%) (Auto) , Basophils (%) (Auto) , Neutrophils % (Manual) [Pending], Lymphocytes % (Manual) [Pending], Platelet Estimate [Pending], Platelet Morphology [Pending], Urine Color [Pending], Urine Appearance [Pending], Urine pH [Pending], Urine Specific [place] [Pending], Urine Protein [Pending], Urine Glucose (UA) [Pending], Urine Ketones [Pending], Urine Blood [Pending], Urine Nitrite [Pending], Urine Bilirubin [Pending], Urine Urobilinogen [Pending], Urine Leukocyte Esterase [ Pending], Troponin I 0.018 Height (Feet): 5 Height (Inches): 6.00 Weight (Pounds): 289 Objective General Appearance: other - intubated Lines, tubes and drains: peripheral HEENT: normocephalic, atraumatic Neck: non-tender, normal alignment, supple Respiratory/Chest: lungs clear Cardiovascular/Chest: normal peripheral pulses, tachycardia, irregularly irregular Abdomen: soft Skin Exam: normal pigmentation Neurologic: disoriented Venkat Montes M.D. Apr 03, 2020 13:20
[2020-04-03 13:24] LABS: APPEARANCE,URINE SLIGHTLY CLOUDY; COLOR,URINE YELLOW
--- NOTE | 2020-04-03 14:00 | NUR ---
NURSE NOTES: Titrated down Cardizem to 12.5mg/hr since HR converted to SR 80's. HR still fluctuates. Will continue to monitor and titrate down Cardizem rate according to HR as per protocol.
--- NOTE | 2020-04-03 15:32 | Surgery Progress Note ---
Surgery Progress Note Subjective Additional Comments patient became tachy and dysrhythmia placed on gtt now in sinus cardiology input noted and appreciated hold weaning Objective Last 24 Hour Vital Signs Date Time Temp Pulse Resp B/P (MAP) Pulse Ox O2 Delivery O2 Flow Rate FiO2 04/03/20 14:45 81 19 116/100 (105) 100 04/03/20 14:30 81 17 117/67 (84) 100 04/03/20 14:15 83 16 123/95 (104) 100 04/03/20 14:00 93 18 144/75 (98) 100 04/03/20 13:30 86 18 137/56 (83) 100 04/03/20 13:00 92 19 162/56 (91) 100 04/03/20 12:30 97 18 144/71 (95) 100 04/03/20 12:00 Mechanical Ventilator 04/03/20 12:00 98.9 97 20 103/53 (70) 100 04/03/20 12:00 30 04/03/20 11:30 119 18 124/53 (76) 100 04/03/20 11:25 93 04/03/20 11:00 116 18 119/67 (84) 04/03/20 10:36 154 29 30 04/03/20 10:30 155 20 144/86 (105) 100 04/03/20 10:00 152 30 135/84 (101) 99 04/03/20 09:30 157 22 163/74 (103) 100 04/03/20 09:15 158 29 161/77 (105) 100 04/03/20 09:00 100.1 156 30 146/91 (109) 100 04/03/20 08:45 156 33 137/75 (95) 100 04/03/20 08:30 158 29 147/75 (99) 99 04/03/20 08:24 160 04/03/20 08:15 158 29 133/50 (77) 98 04/03/20 08:00 Mechanical Ventilator 04/03/20 08:00 100.7 161 32 142/64 (90) 100 04/03/20 08:00 30 04/03/20 07:51 167 04/03/20 07:45 167 31 146/67 (93) 100 04/03/20 07:30 166 29 160/66 (97) 100 04/03/20 07:24 Mechanical Ventilator 04/03/20 07:22 167 35 30 04/03/20 07:15 168 27 144/73 (96) 100 04/03/20 07:00 170 29 146/70 (95) 99 04/03/20 06:30 170 22 04/03/20 05:45 175 23 135/67 (89) 04/03/20 05:35 178 25 142/70 (94) 94 04/03/20 05:30 177 34 142/50 (80) 04/03/20 05:15 176 32 140/85 (103) 04/03/20 05:00 176 33 150/66 (94) 92 04/03/20 04:45 177 23 126/79 (95) 04/03/20 04:30 170 25 123/66 (85) 04/03/20 04:15 183 30 128/79 (95) 96 04/03/20 04:00 82 04/03/20 04:00 Mechanical Ventilator 04/03/20 04:00 35 04/03/20 04:00 100.6 187 24 144/86 (105) 04/03/20 03:45 186 28 154/121 (132) 04/03/20 03:30 187 34 117/75 (89) 04/03/20 03:15 180 26 150/91 (110) 04/03/20 03:12 174 174/71 04/03/20 03:00 186 26 174/71 (105) 04/03/20 02:45 172 32 174/80 (111) 04/03/20 02:30 172 27 165/100 (121) 04/03/20 02:15 100.6 177 24 178/108 (131) 93 04/03/20 02:00 144 25 177/84 (115) 100 04/03/20 01:05 100 T-Piece 8.0 35 04/03/20 01:00 129 24 167/77 (107) 04/03/20 00:00 119 22 176/76 (109) 100 04/03/20 00:00 Mechanical Ventilator 04/02/20 23:30 116 19 167/77 (107) 100 04/02/20 23:00 107 16 156/77 (103) 100 04/02/20 22:30 106 20 132/115 (121) 100 04/02/20 22:00 100 14 155/70 (98) 100 04/02/20 21:38 87 148/50 04/02/20 21:30 98 13 146/68 (94) 100 04/02/20 21:00 106 15 151/78 (102) 100 04/02/20 20:30 93 14 132/59 (83) 100 04/02/20 20:00 87 04/02/20 20:00 98.5 88 10 135/63 (87) 100 04/02/20 20:00 35 04/02/20 20:00 Mechanical Ventilator 04/02/20 20:00 100 T-Piece 8.0 35 04/02/20 19:00 11 144/79 T-piece 35 04/02/20 19:00 85 11 144/79 (100) 100 04/02/20 18:30 85 11 146/61 (89) 100 04/02/20 18:00 86 13 141/63 (89) 100 04/02/20 18:00 11 146/61 T-piece 35 04/02/20 17:30 93 13 121/52 (75) 100 04/02/20 17:00 92 12 134/54 (80) 100 04/02/20 17:00 12 134/54 T-piece 35 04/02/20 16:30 87 9 128/53 (78) 100 04/02/20 16:00 Mechanical Ventilator 04/02/20 16:00 91 04/02/20 16:00 12 120/61 T-piece 35 04/02/20 16:00 120/61 04/02/20 16:00 97.3 83 12 120/61 (80) 100 I&O Intake and Output 04/02/20 04/03/20 19:00 07:00 Intake Total 1975.0 ml 1405 ml Output Total 1055 ml 755 ml Balance 920.0 ml 650 ml Intake Free Water 220 ml 100 ml IV Total 1065.0 ml 645 ml Tube Feeding 660 ml 660 ml Other 30 ml Output Urine Total 980 ml 755 ml Stool Total 75 ml # Bowel Movements 50 Dressing: saturated Wound: clean Cardiovascular: RSR Respiratory: clear, decreased breath sounds Abdomen: soft, non-tender, present bowel sounds Extremities: no cyanosis Laboratory Tests Test 04/03/20 04:50 04/03/20 11:30 White Blood Count 3.9 K/UL (4.8-10.8) #L 19.4 K/UL (4.8-10.8) #H Red Blood Count 3.30 M/UL (4.20-5.40) L 3.35 M/UL (4.20-5.40) L Hemoglobin 8.9 G/DL (12.0-16.0) L 8.6 G/DL (12.0-16.0) L Hematocrit 29.2 % (37.0-47.0) L 29.1 % (37.0-47.0) L Mean Corpuscular Volume 88 FL (80-99) 87 FL (80-99) Mean Corpuscular Hemoglobin 27.1 PG (27.0-31.0) 25.7 PG (27.0-31.0) L Mean Corpuscular Hemoglobin Concent 30.6 G/DL (32.0-36.0) L 29.6 G/DL (32.0-36.0) L Red Cell Distribution Width 22.0 % (11.6-14.8) H 20.3 % (11.6-14.8) H Platelet Count 180 K/UL (150-450) 189 K/UL (150-450) Mean Platelet Volume 6.1 FL (6.5-10.1) L 7.6 FL (6.5-10.1) Neutrophils (%) (Auto) 78.0 % (45.0-75.0) H % (45.0-75.0) Lymphocytes (%) (Auto) 5.2 % (20.0-45.0) L % (20.0-45.0) Monocytes (%) (Auto) 7.8 % (1.0-10.0) % (1.0-10.0) Eosinophils (%) (Auto) 6.0 % (0.0-3.0) H % (0.0-3.0) Basophils (%) (Auto) 3.1 % (0.0-2.0) H % (0.0-2.0) Sodium Level 144 MMOL/L (136-145) Potassium Level 3.8 MMOL/L (3.5-5.1) Chloride Level 110 MMOL/L (98-107) H Carbon Dioxide Level 21 MMOL/L (21-32) Anion Gap 13 mmol/L (5-15) Blood Urea Nitrogen 79 mg/dL (7-18) H Creatinine 1.8 MG/DL (0.55-1.30) H Estimat Glomerular Filtration Rate 33.9 mL/min (>60) Glucose Level 157 MG/DL (74-106) H Calcium Level 8.4 MG/DL (8.5-10.1) L Phosphorus Level 2.5 MG/DL (2.5-4.9) Magnesium Level 1.5 MG/DL (1.8-2.4) L Total Bilirubin 0.4 MG/DL (0.2-1.0) Aspartate Amino Transf (AST/SGOT) 29 U/L (15-37) Alanine Aminotransferase (ALT/SGPT) 16 U/L (12-78) Alkaline Phosphatase 113 U/L (46-116) Total Protein 5.8 G/DL (6.4-8.2) L Albumin 1.8 G/DL (3.4-5.0) L Globulin 4.0 g/dL Albumin/Globulin Ratio 0.4 (1.0-2.7) L Differential Total Cells Counted 100 Neutrophils % (Manual) 86 % (45-75) H Lymphocytes % (Manual) 7 % (20-45) L Monocytes % (Manual) 7 % (1-10) Eosinophils % (Manual) 0 % (0-3) Basophils % (Manual) 0 % (0-2) Band Neutrophils 0 % (0-8) Platelet Estimate Adequate Platelet Morphology Normal Hypochromasia 2+ Anisocytosis 2+ Urine Color Yellow Urine Appearance Slightly cloudy Urine pH 5 (4.5-8.0) Urine Specific [place] 1.010 (1.005-1.035) Urine Protein 2+ (NEGATIVE) H Urine Glucose (UA) Negative (NEGATIVE) Urine Ketones Negative (NEGATIVE) Urine Blood 2+ (NEGATIVE) H Urine Nitrite Negative (NEGATIVE) Urine Bilirubin Negative (NEGATIVE) Urine Urobilinogen Normal MG/DL (0.0-1.0) Urine Leukocyte Esterase 1+ (NEGATIVE) H Urine RBC 5-10 /HPF (0 - 2) H Urine WBC 5-10 /HPF (0 - 2) H Urine Squamous Epithelial Cells Many /LPF (NONE/OCC) H Urine Bacteria Few /HPF (NONE) Troponin I 0.018 ng/mL (0.000-0.056) Plan Problems: (1) Sepsis Assessment & Plan: Patient admitted identified to have sepsis leukocytosis tachycardia abnormal labs lactic acidosis. Chest x-ray reviewed. Imaging noted. Micro noted. Intensive care unit on support appreciate ICU care Nutritional optimization IV fluids IV antibiotics as per infectious disease tube feeds once stable will follow with recommendations thank you for letting participate patient's care Urosepsis on abx DAILY ESTIMATED NEEDS: Needs based on Critical care, sepsis 75.8kg adj 20-28 kcals/kg [id number] total kcals 1.25-1.5 g protein/kg 95-152 g total protein 25-30 mL/kg 3612-4106 total fluid mLs NUTRITION DIAGNOSIS: Swallowing difficulty r/t respiratory status as evidenced by pt orally intubated, ICU status. CURRENT TF:NPO ENTERAL NUTRITION RECOMMENDATIONS: VITAL AF 1.2 @55ml/hr x24 hrs to provide 1320ml, 1584 kcal, 99g pro, 1071ml free H2O - As medically able, rec non oral feeds. Start VITAL 1.2 @low rate 15ml/hr x6 hrs, advance as tolerated 10ml/hr q4-6 hrs to goal. - Flush per MD/ HOB over 30 degrees -> IF POTASSIUM REMAINS ELEVATED-> Rec NEPRO w/ goal rate of 40ml/hr for 24 hrs to provide 960ml, 1728 kcal, 78g pro, 698ml free H2O. -> Feed w/ hemodynamic stability. ADDITIONAL RECOMMENDATIONS: 1) Maintain calibrated bed scale wts (248lbs vs 217lbs last adm) 2) F/up w/ WC eval. NPO at this time 3) Monitor lytes, need for renal formula 4) Feed when hemodynamically stable -> trophic feeds w/ low BP to maintain gut integrity (2) Sacral decubitus ulcer Assessment & Plan: Patient identified to have a sacral deep tissue injury upon admission Currently intensive care unit on support Care plan initiated (3) Ventral incisional hernia Assessment & Plan: History of colon resection colostomy Ventral incisional hernia reducible No acute invention monitor parastomal hernia stable ostomy viable and functional no acute intervention planned Julian Iglesias Apr 03, 2020 15:32
--- NOTE | 2020-04-03 16:14 | NUR ---
CASE MANAGEMENT:REVIEW 04/03/20 SI: SEPSIS. RESPIRATORY FAILURE. A-FLUTTER 100.1 156 30 146/91 100% ON VENT SUPPORT WBC+19.4 H/H-8.6/29.1 BUN+79 CR+1.8 IS: IV CEFEPIME Q24 IV FLAGYL Q8HRS AMIODARONE GTT CARDIZEM GTT IVF@50/HR XARELTO NG QD : ICU STATUS DCP: PATIENT IS FROM HOME
--- NOTE | 2020-04-03 16:30 | NUR ---
NURSE NOTES: Cleaned and repositioned patient. NSR on satellite project site monitor with HR 80-90's. Will keep the same rate, Cardizem at 10mg/hr and Amiodarone at 0.5mg/min. Will continue to monitor.
--- NOTE | 2020-04-03 16:45 | Consultation ---
DATE OF CONSULTATION: 04/03/2020 CARDIAC ELECTROPHYSIOLOGY CONSULTATION CONSULTING PHYSICIAN: Carlos Dean MD. REFERRING PHYSICIAN: Malathi Mendez MD. REASON FOR CONSULTATION: Atrial flutter with rapid ventricular response. HISTORY OF PRESENT ILLNESS: The patient is a 69-year-old lady, who was admitted on March 26, 2020, from [facility] for altered mental status, lethargy, weakness, and respiratory failure. The patient also had atrial flutter and initially was started on Cardizem drip that has been switched to p.o. Cardizem. The patient also initially was intubated for airway and still intubated in intensive care unit. Today at around 3 o'clock in the morning, the patient developed atrial flutter with rapid ventricular response with heart rate up to 170s. The patient is on Cardizem drip, already maxed out at 15 mg/h and heart rate is still 170s. Cardiac electrophysiology consultation was requested for further evaluation and management. Per my evaluation, the patient is in intensive care unit with heart rate of 170s despite being on Cardizem drip. Her 12-lead EKG also at 2:34 showed atrial flutter with rate of 175 beats per minute with 2:1 AV conduction. REVIEW OF SYSTEMS: Cannot be obtained. The patient is intubated on a ventilator. PAST MEDICAL HISTORY: As mentioned above. FAMILY HISTORY: Noncontributory. SOCIAL HISTORY: She is a [facility] resident. PHYSICAL EXAMINATION: VITAL SIGNS: Blood pressure of 134/67, pulse is 170, respiration is 18, heart rate was as high as 186 beats per minute since 2 o'clock in the morning. NECK: Shows no JVD. She is orally intubated with OG tube. LUNGS: Coarse rhonchi. CARDIOVASCULAR: Tachycardic, S1 and S2 with no gallop. ABDOMEN: Soft. EXTREMITIES: No pitting edema. LABORATORY DATA: Sodium 144, potassium 3.8, BUN of 79, and creatinine 1.8. Initial BUN was 101 and creatinine of 5.8, that has improved. Glucose is 157. White count has dropped from 16.8 to 3.9, hemoglobin 8.9, hematocrit 29, and platelet count is 180,000. Urinalysis showed many bacteria. ASSESSMENT AND PLAN: 1. Atrial flutter with rapid ventricular response. The patient already maxed out on Cardizem drip at 15 mg/h. The patient will be on anticoagulation with Xarelto 15 mg daily. The patient was in sinus rhythm just yesterday, so we will start the patient on amiodarone drip; hopefully, that would convert the patient back to sinus rhythm. If after addition of amiodarone, the patient is still tachycardic, we may need to cardiovert the patient the patient's blood pressure still is 140s. Eventually, she would benefit from atrial flutter ablation from a critical approach for her arrhythmia. 2. Hypertension. Maximize Cardizem at this time. 3. Respiratory failure, still intubated via the T-tube. 4. Acute renal failure, that is improving. 5. Normal left ventricular systolic function based on the echocardiogram on March 26, 2020, with EF of 55%. Thank you very much for allowing me to participate in the care of this patient. Please do not hesitate to contact me for any questions regarding my evaluation. The case was discussed with Dr. Tabares as well as Dr. Torres, and the ICU team. The ICU time spent for this patient was in excess of 1 hour. Carlos Dean M.D. DR: JOSE JOB#: [id number] CC:
--- NOTE | 2020-04-03 19:18 | NUR ---
HAND-OFF: Report given to JOSSELYN Juan.
--- NOTE | 2020-04-03 20:00 | NUR ---
NURSE NOTES:received report from ulises puckett rn pt orally intubated -vent o2 sat 100% no c/o pain on cardizen drip at 10mg/hr and ammo drip at o.5mcg/min hr 86-96 tolerating feeding no residual reposition and suction
[2020-04-03] MEDS: Dyna-Hex 2% Top Sol 2oz TOPIC SCH (20:22)
--- NOTE | 2020-04-03 22:00 | NUR ---
NURSE NOTES: no acute distress noted vs stable
[2020-04-04] VITALS (54 sets, daily range): BP systolic 101–187; BP diastolic 42–111
[2020-04-04] MEDS: Morphine Sulfate 4mg/ml Inj (IV USE ONLY) IVP PRN ×2 (00:55→22:38)
--- NOTE | 2020-04-04 01:00 | NUR ---
NURSE NOTES: pt awake and alert asking for pain ms 4mg ivp given as order
--- NOTE | 2020-04-04 02:00 | NUR ---
NURSE NOTES: reposition and suction
[2020-04-04] MEDS: LORazepam Inj 2mg/ml 1ml IV PRN (03:16)
[2020-04-04] MEDS: dilTIAZem Premix 125mg/125ml 125 ML IVPB SCH (03:44)
--- NOTE | 2020-04-04 04:00 | NUR ---
NURSE NOTES: complete bed bath oral care and back care done
[2020-04-04 05:06] LABS: HEMATOCRIT 28.7 % (37.0-47.0); HEMOGLOBIN 8.6 G/DL (12.0-16.0); MEAN CORPUSCULAR VOLUME 86 FL (80-99); PLATELET COUNT 229 K/UL (150-450); RED BLOOD COUNT 3.32 M/UL (4.20-5.40); RED CELL DISTRIBUTION WIDTH 20.6 % (11.6-14.8); WHITE BLOOD COUNT 19.1 K/UL (4.8-10.8)
[2020-04-04 05:39] LABS: ANION GAP 10 mmol/L (5-15); BLOOD UREA NITROGEN 72 mg/dL (7-18); CALCIUM 8.3 MG/DL (8.5-10.1); CARBON DIOXIDE 26 MMOL/L (21-32); CHLORIDE 111 MMOL/L (98-107); CREATININE 1.5 MG/DL (0.55-1.30); PHOSPHORUS 2.6 MG/DL (2.5-4.9); POTASSIUM 3.7 MMOL/L (3.5-5.1); SODIUM 146 MMOL/L (136-145)
--- NOTE | 2020-04-04 07:04 | NUR ---
HAND-OFF: Report given to ulises puckett rn using sbar.
--- NOTE | 2020-04-04 07:05 | NUR ---
NURSE NOTES: Report received from JOSSELYN Juan. Pt is wide awake and able to verbalize needs. Able to follow simple commands. SR on hospital monitor. Rectal temp 99.5. Orally intubated. AC 12, TV 500, FiO2 30%, P 5. O2 sat 100%.. Right NGT in place receiving Vital AF 1.2 at 55cc/hr. No residual noted. Left colostomy bag draining brown loose BM. Desai in place draining to gravity. DOMENICA PICC line patent and asymptomatic. Pt is on 10/20 NS is running at 50cc/hr and Cardizem drip at 15mg/hr and Admio drip at 0.5 mg/min. Bed in lowest position. Side rails up x3. Will resume plan of care.
[2020-04-04] MEDS ORDERED: Vancomycin 1gm/D5W 275ml IVPB ONE ×2 (08:00)
[2020-04-04] MEDS: Xarelto 15mg tab NG SCH (08:24)
[2020-04-04] MEDS: Pantoprazole Inj IVP SCH (08:24)
[2020-04-04] MEDS: Docusate 100mg/10ml Liq NG SCH ×2 (08:24→20:49)
[2020-04-04] MEDS: Morphine Sulfate 2mg/ml Inj(IV/IM USE ONLY) IVP PRN ×3 (08:25→17:06)
--- NOTE | 2020-04-04 08:25 | NUR ---
NURSE NOTES: PRN Morphine 2mg IVP given for leg pain. Will continue to monitor.
[2020-04-04] MEDS: Amiodarone 900 MG in D5W 500ml 482 ML IV SCH (08:58)
--- NOTE | 2020-04-04 09:21 | NUR ---
RESPIRATORY NOTES Pt placed on SBT - CPAP 5, PS 8. SBT stopped due to increase in BP. PT placed back onto previous settings. JOSSELYN Llamas aware. Will continue to monitor.
--- NOTE | 2020-04-04 09:36 | Cardiology Progress Note ---
Assessment/Plan Status: stable Assessment/Plan Assessment/Plan Problem List: (1) Atrial flutter ICD Codes: I48.92 - Unspecified atrial flutter SNOMED: 2348721 (2) Hypertension ICD Codes: I10 - Essential (primary) hypertension SNOMED: 88434862 (3) Hyperkalemia ICD Codes: E87.5 - Hyperkalemia SNOMED: 22821965 (4) Acute encephalopathy ICD Codes: G93.40 - Encephalopathy, unspecified SNOMED: 8164558 (5) Acute and chronic respiratory failure with hypoxia ICD Codes: J96.21 - Acute and chronic respiratory failure with hypoxia SNOMED: 35071253, 218529880 (6) VENTURA (acute kidney injury) ICD Codes: N17.9 - Acute kidney failure, unspecified SNOMED: 2241067, 61084249 Status: deteriorating AFIB/Flutter -Cardizem Gtt -Amiodarone gtt now that LFT are normal -> Transition to oral after 1 gram load -Continue xarelto -may need cardioversion if persistent but likely to self convert -Echocardiogram with normal LV function -Continue ICU care and daily weaning Critical care 30 minutes Subjective Cardiovascular: Reports: no symptoms Respiratory: Reports: no symptoms Gastrointestinal/Abdominal: Reports: no symptoms Genitourinary: Reports: no symptoms Subjective Continues to be sedated and intubated in ICU On cardizem gtt,and remains in rapid atrial flutter Amiodarone to be started today Unable to be weaned off vent Blood pressures elevated Objective Last 24 Hour Vital Signs Date Time Temp Pulse Resp B/P (MAP) Pulse Ox O2 Delivery O2 Flow Rate FiO2 04/04/20 09:23 100 04/04/20 08:45 116 30 179/78 (111) 100 04/04/20 08:30 115 34 173/94 (120) 99 04/04/20 08:15 116 33 151/82 (105) 92 04/04/20 08:00 Mechanical Ventilator 04/04/20 08:00 115 31 172/89 (116) 99 04/04/20 08:00 30 04/04/20 07:55 114 04/04/20 07:45 111 32 162/81 (108) 99 04/04/20 07:30 114 35 153/80 (104) 99 04/04/20 07:15 113 34 172/85 (114) 100 04/04/20 07:00 111 29 187/85 (119) 100 04/04/20 06:59 107 37 30 04/04/20 06:30 109 22 04/04/20 06:00 109 33 182/111 (134) 100 04/04/20 05:30 111 26 147/89 (108) 100 04/04/20 05:00 113 34 161/107 (125) 100 04/04/20 04:30 112 29 184/73 (110) 95 04/04/20 04:00 99.2 111 30 113/65 (81) 98 04/04/20 04:00 106 04/04/20 04:00 Mechanical Ventilator 04/04/20 04:00 30 04/04/20 03:30 107 30 101/42 (61) 100 04/04/20 03:00 101 29 169/64 (99) 100 04/04/20 02:58 113 32 30 04/04/20 02:30 101 29 160/61 (94) 99 04/04/20 02:15 98 27 165/65 (98) 100 04/04/20 02:00 99 29 164/67 (99) 100 04/04/20 01:30 99 26 163/77 (105) 100 04/04/20 01:00 101 26 154/63 (93) 100 04/04/20 00:30 93 23 118/61 (80) 100 04/04/20 00:00 30 04/04/20 00:00 Mechanical Ventilator 04/04/20 00:00 99.5 98 23 137/50 (79) 100 04/03/20 23:48 101 28 30 04/03/20 23:30 93 21 129/50 (76) 100 04/03/20 23:00 96 23 132/55 (80) 100 04/03/20 22:30 99.0 93 21 116/47 (70) 100 04/03/20 22:00 92 22 129/49 (75) 100 04/03/20 21:30 96 28 137/49 (78) 100 04/03/20 21:00 90 04/03/20 21:00 91 21 137/51 (79) 100 04/03/20 20:30 91 21 140/55 (83) 100 04/03/20 20:00 Mechanical Ventilator 04/03/20 20:00 30 04/03/20 20:00 98.0 95 18 140/59 (86) 100 04/03/20 19:30 88 21 127/54 (78) 100 04/03/20 19:30 101 25 30 04/03/20 19:00 88 20 134/51 (78) 100 04/03/20 18:00 91 19 128/57 (80) 100 04/03/20 17:30 92 25 148/63 (91) 99 04/03/20 17:04 91 25 130/60 (83) 100 04/03/20 16:15 84 17 140/51 (80) 100 04/03/20 16:00 30 04/03/20 16:00 Mechanical Ventilator 04/03/20 16:00 96.5 96 22 149/65 (93) 100 04/03/20 15:48 85 04/03/20 15:45 88 17 132/58 (82) 99 04/03/20 15:30 88 17 134/70 (91) 99 04/03/20 15:15 84 14 141/63 (89) 100 04/03/20 15:02 92 28 30 04/03/20 15:00 84 19 129/89 (102) 100 04/03/20 14:45 81 19 116/100 (105) 100 04/03/20 14:30 81 17 117/67 (84) 100 04/03/20 14:15 83 16 123/95 (104) 100 04/03/20 14:00 93 18 144/75 (98) 100 04/03/20 13:30 86 18 137/56 (83) 100 04/03/20 13:00 92 19 162/56 (91) 100 04/03/20 12:30 97 18 144/71 (95) 100 04/03/20 12:00 Mechanical Ventilator 04/03/20 12:00 98.9 97 20 103/53 (70) 100 04/03/20 12:00 30 04/03/20 11:30 119 18 124/53 (76) 100 04/03/20 11:25 93 04/03/20 11:00 116 18 119/67 (84) 04/03/20 10:36 154 29 30 04/03/20 10:30 155 20 144/86 (105) 100 04/03/20 10:00 152 30 135/84 (101) 99 General Appearance: no apparent distress, on vent EENT: PERRL/EOMI, normal ENT inspection, TMs normal, pharynx normal Neck: non-tender, normal alignment, supple, normal inspection, no JVD Rhythm: Afib Cardiovascular: regularly irregular, tachycardia Respiratory/Chest: accessory muscle use, crackles/rales, rhonchi - bilaterally Abdomen: normal bowel sounds, non tender, soft, no organomegaly, no mass Extremities: normal range of motion, non-tender, normal inspection, no calf tenderness, no swelling 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0) L 28.7 % (37.0-47.0) L Mean Corpuscular Volume 87 FL (80-99) 86 FL (80-99) Mean Corpuscular Hemoglobin 25.7 PG (27.0-31.0) L 25.9 PG (27.0-31.0) L Mean Corpuscular Hemoglobin Concent 29.6 G/DL (32.0-36.0) L 30.0 G/DL (32.0-36.0) L Red Cell Distribution Width 20.3 % (11.6-14.8) H 20.6 % (11.6-14.8) H Platelet Count 189 K/UL (150-450) 229 K/UL (150-450) Mean Platelet Volume 7.6 FL (6.5-10.1) 8.0 FL (6.5-10.1) Neutrophils (%) (Auto) % (45.0-75.0) % (45.0-75.0) Lymphocytes (%) (Auto) % (20.0-45.0) % (20.0-45.0) Monocytes (%) (Auto) % (1.0-10.0) % (1.0-10.0) Eosinophils (%) (Auto) % (0.0-3.0) % (0.0-3.0) Basophils (%) (Auto) % (0.0-2.0) % (0.0-2.0) Differential Total Cells Counted 100 Neutrophils % (Manual) 86 % (45-75) H Pending Lymphocytes % (Manual) 7 % (20-45) L Pending Monocytes % (Manual) 7 % (1-10) Eosinophils % (Manual) 0 % (0-3) Basophils % (Manual) 0 % (0-2) Band Neutrophils 0 % (0-8) Platelet Estimate Adequate Pending Platelet Morphology Normal Pending Hypochromasia 2+ Anisocytosis 2+ Urine Color Yellow Urine Appearance Slightly cloudy Urine pH 5 (4.5-8.0) Urine Specific [place] 1.010 (1.005-1.035) Urine Protein 2+ (NEGATIVE) H Urine Glucose (UA) Negative (NEGATIVE) Urine Ketones Negative (NEGATIVE) Urine Blood 2+ (NEGATIVE) H Urine Nitrite Negative (NEGATIVE) Urine Bilirubin Negative (NEGATIVE) Urine Urobilinogen Normal MG/DL (0.0-1.0) Urine Leukocyte Esterase 1+ (NEGATIVE) H Urine RBC 5-10 /HPF (0 - 2) H Urine WBC 5-10 /HPF (0 - 2) H Urine Squamous Epithelial Cells Many /LPF (NONE/OCC) H Urine Bacteria Few /HPF (NONE) Troponin I 0.018 ng/mL (0.000-0.056) 0.005 ng/mL (0.000-0.056) 0.000 ng/mL (0.000-0.056) Sodium Level 146 MMOL/L (136-145) H Potassium Level 3.7 MMOL/L (3.5-5.1) Chloride Level 111 MMOL/L (98-107) H Carbon Dioxide Level 26 MMOL/L (21-32) Anion Gap 10 mmol/L (5-15) Blood Urea Nitrogen 72 mg/dL (7-18) H Creatinine 1.5 MG/DL (0.55-1.30) H Estimat Glomerular Filtration Rate 42.1 mL/min (>60) Glucose Level 119 MG/DL (74-106) H Calcium Level 8.3 MG/DL (8.5-10.1) L Phosphorus Level 2.6 MG/DL (2.5-4.9) Magnesium Level 1.8 MG/DL (1.8-2.4) Random Vancomycin Level 14.8 ug/mL Digoxin Level 0.6 NG/ML (0.9-2.0) L Microbiology Date/Time Source Procedure Growth Status 04/03/20 04:55 Blood Blood Culture - Preliminary NO GROWTH AFTER 24 HOURS Resulted 04/03/20 04:50 Blood Blood Culture - Preliminary NO GROWTH AFTER 24 HOURS Resulted 04/03/20 04:00 Sputum Expectorated Gram Stain - Final Resulted 04/03/20 04:00 Sputum Culture - Preliminary Gram Negative Bacillus 1 Gram Negative Bacillus 2 Resulted 04/03/20 04:00 Indwelling Cath Urine Culture - Preliminary NO GROWTH AFTER 24 HOURS Resulted Rafat Crooks MD Apr 04, 2020 09:36
--- NOTE | 2020-04-04 10:17 | Pulmonology Progress Note ---
Subjective ROS Limited/Unobtainable: Yes Interval Events: Remains on AC mode; tachycardic, on amio and cardizem Constitutional: Reports: no symptoms; Denies: fever HEENT: Repors: no symptoms Respiratory: Reports: no symptoms Cardiovascular: Reports: no symptoms Gastrointestinal/Abdominal: Reports: no symptoms; Denies: nausea, vomiting, diarrhea Psychiatric: Reports: other - NA Skin: Denies: rash Musculoskeletal: Reports: pain Allergies: Coded Allergies: LISINOPRIL (Verified Allergy, Unknown, Hives, 04/12/14) Objective Last 24 Hour Vital Signs Date Time Temp Pulse Resp B/P (MAP) Pulse Ox O2 Delivery O2 Flow Rate FiO2 04/04/20 09:23 100 04/04/20 08:45 116 30 179/78 (111) 100 04/04/20 08:30 115 34 173/94 (120) 99 04/04/20 08:15 116 33 151/82 (105) 92 04/04/20 08:00 Mechanical Ventilator 04/04/20 08:00 115 31 172/89 (116) 99 04/04/20 08:00 30 04/04/20 07:55 114 04/04/20 07:45 111 32 162/81 (108) 99 04/04/20 07:30 114 35 153/80 (104) 99 04/04/20 07:15 113 34 172/85 (114) 100 04/04/20 07:00 111 29 187/85 (119) 100 04/04/20 06:59 107 37 30 04/04/20 06:30 109 22 04/04/20 06:00 109 33 182/111 (134) 100 04/04/20 05:30 111 26 147/89 (108) 100 04/04/20 05:00 113 34 161/107 (125) 100 04/04/20 04:30 112 29 184/73 (110) 95 04/04/20 04:00 99.2 111 30 113/65 (81) 98 04/04/20 04:00 106 04/04/20 04:00 Mechanical Ventilator 04/04/20 04:00 30 04/04/20 03:30 107 30 101/42 (61) 100 04/04/20 03:00 101 29 169/64 (99) 100 04/04/20 02:58 113 32 30 04/04/20 02:30 101 29 160/61 (94) 99 04/04/20 02:15 98 27 165/65 (98) 100 04/04/20 02:00 99 29 164/67 (99) 100 04/04/20 01:30 99 26 163/77 (105) 100 04/04/20 01:00 101 26 154/63 (93) 100 04/04/20 00:30 93 23 118/61 (80) 100 04/04/20 00:00 30 04/04/20 00:00 Mechanical Ventilator 04/04/20 00:00 99.5 98 23 137/50 (79) 100 04/03/20 23:48 101 28 30 04/03/20 23:30 93 21 129/50 (76) 100 04/03/20 23:00 96 23 132/55 (80) 100 04/03/20 22:30 99.0 93 21 116/47 (70) 100 04/03/20 22:00 92 22 129/49 (75) 100 04/03/20 21:30 96 28 137/49 (78) 100 04/03/20 21:00 90 04/03/20 21:00 91 21 137/51 (79) 100 04/03/20 20:30 91 21 140/55 (83) 100 04/03/20 20:00 Mechanical Ventilator 04/03/20 20:00 30 04/03/20 20:00 98.0 95 18 140/59 (86) 100 04/03/20 19:30 88 21 127/54 (78) 100 04/03/20 19:30 101 25 30 04/03/20 19:00 88 20 134/51 (78) 100 04/03/20 18:00 91 19 128/57 (80) 100 04/03/20 17:30 92 25 148/63 (91) 99 04/03/20 17:04 91 25 130/60 (83) 100 04/03/20 16:15 84 17 140/51 (80) 100 04/03/20 16:00 30 04/03/20 16:00 Mechanical Ventilator 04/03/20 16:00 96.5 96 22 149/65 (93) 100 04/03/20 15:48 85 04/03/20 15:45 88 17 132/58 (82) 99 04/03/20 15:30 88 17 134/70 (91) 99 04/03/20 15:15 84 14 141/63 (89) 100 04/03/20 15:02 92 28 30 04/03/20 15:00 84 19 129/89 (102) 100 04/03/20 14:45 81 19 116/100 (105) 100 04/03/20 14:30 81 17 117/67 (84) 100 04/03/20 14:15 83 16 123/95 (104) 100 04/03/20 14:00 93 18 144/75 (98) 100 04/03/20 13:30 86 18 137/56 (83) 100 04/03/20 13:00 92 19 162/56 (91) 100 04/03/20 12:30 97 18 144/71 (95) 100 04/03/20 12:00 Mechanical Ventilator 04/03/20 12:00 98.9 97 20 103/53 (70) 100 04/03/20 12:00 30 04/03/20 11:30 119 18 124/53 (76) 100 04/03/20 11:25 93 04/03/20 11:00 116 18 119/67 (84) 04/03/20 10:36 154 29 30 04/03/20 10:30 155 20 144/86 (105) 100 Intake and Output 04/03/20 04/04/20 19:00 07:00 Intake Total 1852.450 ml 1869.92 ml Output Total 1240 ml 750 ml Balance 612.450 ml 1119.92 ml Intake Free Water 100 ml IV Total 1532.450 ml 1109.92 ml Tube Feeding 220 ml 660 ml Other 100 ml Output Urine Total 1040 ml 750 ml Stool Total 200 ml General Appearance: no acute distress HEENT: normocephalic Respiratory: chest wall non-tender, lungs clear Cardiovascular: normal peripheral pulses, normal rate Abdomen: normal bowel sounds Microbiology Date/Time Source Procedure Growth Status 04/03/20 04:55 Blood Blood Culture - Preliminary NO GROWTH AFTER 24 HOURS Resulted 04/03/20 04:50 Blood Blood Culture - Preliminary NO GROWTH AFTER 24 HOURS Resulted 04/03/20 04:00 Sputum Expectorated Gram Stain - Final Resulted 04/03/20 04:00 Sputum Culture - Preliminary Gram Negative Bacillus 1 Gram Negative Bacillus 2 Resulted 04/03/20 04:00 Indwelling Cath Urine Culture - Preliminary NO GROWTH AFTER 24 HOURS Resulted Laboratory Tests 04/03/20 11:30: White Blood Count 19.4#H, Red Blood Count 3.35L, Hemoglobin 8.6L, Hematocrit 29.1L, Mean Corpuscular Volume 87, Mean Corpuscular Hemoglobin 25.7L, Mean Corpuscular Hemoglobin Concent 29.6L, Red Cell Distribution Width 20.3H, Platelet Count 189, Mean Platelet Volume 7.6, Neutrophils (%) (Auto) , Lymphocytes (%) (Auto) , Monocytes (%) (Auto) , Eosinophils (%) (Auto) , Basophils (%) (Auto) , Differential Total Cells Counted 100, Neutrophils % ( Manual) 86H, Lymphocytes % (Manual) 7L, Monocytes % (Manual) 7, Eosinophils % ( Manual) 0, Basophils % (Manual) 0, Band Neutrophils 0, Platelet Estimate Adequate, Platelet Morphology Normal, Hypochromasia 2+, Anisocytosis 2+, Urine Color Yellow, Urine Appearance Slightly cloudy, Urine pH 5, Urine Specific [place] 1.010, Urine Protein 2+H, Urine Glucose (UA) Negative, Urine Ketones Negative, Urine Blood 2+H, Urine Nitrite Negative, Urine Bilirubin Negative, Urine Urobilinogen Normal, Urine Leukocyte Esterase 1+H, Urine RBC 5-10H, Urine WBC 5-10H, Urine Squamous Epithelial Cells ManyH, Urine Bacteria Few, Troponin I 0.018 04/03/20 19:05: Troponin I 0.005 04/04/20 03:00: White Blood Count 19.1H, Red Blood Count 3.32L, Hemoglobin 8.6L, Hematocrit 28.7L, Mean Corpuscular Volume 86, Mean Corpuscular Hemoglobin 25.9L, Mean Corpuscular Hemoglobin Concent 30.0L, Red Cell Distribution Width 20.6H, Platelet Count 229, Mean Platelet Volume 8.0, Neutrophils (%) (Auto) , Lymphocytes (%) (Auto) , Monocytes (%) (Auto) , Eosinophils (%) (Auto) , Basophils (%) (Auto) , Neutrophils % (Manual) [Pending], Lymphocytes % (Manual) [Pending], Platelet Estimate [Pending], Platelet Morphology [Pending], Troponin I 0.000, Sodium Level 146H, Potassium Level 3.7, Chloride Level 111H, Carbon Dioxide Level 26, Anion Gap 10, Blood Urea Nitrogen 72H, Creatinine 1.5H, Estimat Glomerular Filtration Rate 42.1, Glucose Level 119H, Calcium Level 8.3L , Phosphorus Level 2.6, Magnesium Level 1.8, Random Vancomycin Level 14.8, Digoxin Level 0.6L Current Medications Medications (Trade) Dose Ordered Sig/Debbie Route PRN Reason Start Time Stop Time Status Last Admin Dose Admin Acetaminophen (Tylenol) 650 mg Q4H PRN ORAL Temp >100.5 03/26/20 21:15 04/25/20 21:14 04/01/20 05:32 Acetaminophen (Tylenol) 650 mg Q4H PRN ORAL Mild Pain (Pain Scale 1-3) 03/26/20 21:15 04/25/20 21:14 04/03/20 10:18 Al Hydroxide/Mg Hydroxide (Mylanta II) 30 ml Q6H PRN ORAL dyspepsia 03/26/20 21:15 04/25/20 21:14 Amiodarone HCl 900 mg/Dextrose 500 ml @ 0 mls/hr ONCE ONCE IV 04/04/20 09:45 04/04/20 09:46 UNV Bisacodyl (Dulcolax) 10 mg HSPRN PRN RECTAL Constipation 03/26/20 21:15 06/24/20 21:14 Cefepime HCl 2 gm/ Dextrose 100 ml @ 200 mls/hr Q24HRS IVPB 04/03/20 15:00 04/10/20 14:59 04/03/20 14:45 Chlorhexidine Gluconate (Laurie-Hex 2%) 1 applic DAILY@2000 TOPIC 03/28/20 20:00 06/26/20 19:59 04/03/20 20:22 Dextrose (Dextrose 50%) 25 ml Q30M PRN IV Hypoglycemia 03/26/20 21:15 06/24/20 21:14 Dextrose (Dextrose 50%) 50 ml Q30M PRN IV Hypoglycemia 03/26/20 21:15 06/24/20 21:14 Diltiazem HCl 125 ml @ 0 mls/hr Q24H IVPB 04/03/20 21:15 04/04/20 21:14 04/04/20 03:44 Diphenhydramine HCl (Benadryl) 25 mg Q6H PRN ORAL Itching/Pruritis 03/26/20 21:15 04/25/20 21:14 Docusate Sodium (Colace) 100 mg Q12HR NG 03/30/20 09:00 04/29/20 08:59 04/04/20 08:24 Gabapentin (Neurontin) 300 mg BEDTIME ORAL 03/27/20 21:00 04/26/20 20:59 04/03/20 20:22 Lorazepam (Ativan 2mg/ml 1ml) 1 mg Q4H PRN IV For Anxiety 04/03/20 09:15 04/08/20 13:14 04/04/20 03:16 Magnesium Hydroxide (Mom) 30 ml HSPRN PRN ORAL Constipation 03/26/20 21:15 04/25/20 21:14 Metoclopramide HCl (Reglan) 10 mg Q6H PRN IVP Nausea & Vomiting 03/26/20 21:15 04/25/20 21:14 Metronidazole 100 ml @ 100 mls/hr Q8HR IVPB 04/03/20 06:00 04/10/20 05:59 04/04/20 05:29 Morphine Sulfate (Morphine Sulfate) 2 mg Q4H PRN IVP Moderate Pain (Pain Scale 4-6) 04/01/20 13:15 04/08/20 13:14 04/04/20 08:25 Morphine Sulfate (Morphine Sulfate) 4 mg Q4H PRN IVP Severe Pain (Pain Scale 7-10) 04/01/20 13:15 04/08/20 13:14 04/04/20 00:55 Norepinephrine Bitartrate 4 mg/ Dextrose 250 ml @ 0 mls/hr Q24H IV 03/28/20 16:00 04/27/20 15:59 Ondansetron HCl (Zofran) 4 mg Q6H PRN IVP Nausea & Vomiting 03/26/20 21:15 04/25/20 21:14 Pantoprazole (Protonix) 40 mg DAILY IVP 04/01/20 09:00 05/01/20 08:59 04/04/20 08:24 Polyethylene Glycol (Miralax) 17 gm HSPRN PRN ORAL Constipation 03/26/20 21:15 04/25/20 21:14 Rivaroxaban (Xarelto) 15 mg DAILY NG 03/31/20 09:00 06/29/20 08:59 04/04/20 08:24 Sodium Chloride 1,000 ml @ 50 mls/hr Q20H IV 03/30/20 14:45 04/29/20 14:44 04/03/20 18:47 Temazepam (Restoril) 15 mg HSPRN PRN ORAL Insomnia 04/01/20 10:15 04/08/20 10:14 Vancomycin HCl (Vanco pharmacy to dose) 1 ea DAILY PRN MISC Per rx protocol 03/27/20 20:15 04/26/20 20:14 Assessment/Plan Assessment/Plan IMPRESSION: 1. Hyperkalemia. Corrected 2. Tachycardia; on drips 3. Sepsis 4. Hypertension. 5. Seizure disorder. 6. Acute renal failure. 7. Respiratory failure DISCUSSION: Continue ICU care Correction of electrolytes Now on 30% FiO2 Back on AC mode till cardiac rhythm stabilizes Mentation poor; Also has thick gabriel-tracheal secretions Abx Seven Yao Omar Syed MD Apr 04, 2020 10:17
--- NOTE | 2020-04-04 10:57 | NUR ---
NURSE NOTES: Patient failed weaning with CPAP, PS 10. Patient lasted only for 5 minutes as per RT. Will continue to monitor.
[2020-04-04] MEDS ORDERED: Amiodarone 900 MG in D5W 500ml 482 ML IV SCH (10:58)
--- NOTE | 2020-04-04 12:38 | NUR ---
NURSE NOTES: PRN Morphine 2 mg IV and Tylenol 650 mg PO given for leg pain. Will continue to monitor.
--- NOTE | 2020-04-04 12:56 | NUR ---
CASE MANAGEMENT: REVIEW SI: SEPSIS . A-FLUTTER . ACUTE ENCEPHALOPATHY . INTUBATED T 99.4 HR 113 RR 31 BP 180/68 SATS 100% MECH VENT FIO2 30 WBC 19.1 H/H 8.6/28.7 NA 146 BUN 72 CR 1.5 IS: AMIODARONE IV X1 CARDIZEM IV Q24HR FLAGYL IV Q8HR NS IVF @ 50ML/HR PROTONIX IV QD ICU STATUS DCP: PATIENT IS FROM HOME [facility]
--- NOTE | 2020-04-04 13:24 | Nephrology Progress Note ---
Assessment/Plan Plan #VENTURA due to ATN in the setting of rhabdo- on CKD #hyperkalemia #Rhabdo #UTI sepsis #Lactic acidsis #AMS - toxic metabolic encephalopathy #Hypoxemic resp failure #afib with RVR #HLD #Obesity - monitor UOP - DC IVF - Dilt and amiodarone drip per cardiology - monitor K,bmp - weiss placed - strict I&Os - vent management per Dr. Cordova - cardiology eval - ID consult - vanco and cefepime - flagyl - follow cx - monitor BMP, mag and phos daily - continue TF 30 minutes of critical care time- greater than 50% on care coordination and counseling Subjective ROS Limited/Unobtainable: Yes Subjective Cr slowly downtrending remains intubated BP up febrile on cefepime, vanco and flagyl WBC uptrending Objective Objective Last 24 Hour Vital Signs Date Time Temp Pulse Resp B/P (MAP) Pulse Ox O2 Delivery O2 Flow Rate FiO2 04/04/20 11:55 111 04/04/20 10:45 106 28 171/82 (111) 100 04/04/20 10:40 107 30 30 04/04/20 10:30 106 30 155/72 (99) 100 04/04/20 10:15 106 26 162/71 (101) 100 04/04/20 10:00 105 30 140/76 (97) 100 04/04/20 09:45 108 29 163/78 (106) 100 04/04/20 09:30 111 31 162/73 (102) 100 04/04/20 09:23 100 04/04/20 09:18 111 20 168/66 (100) 100 04/04/20 09:15 112 34 180/68 (105) 100 04/04/20 09:00 99.4 113 31 158/93 (114) 100 04/04/20 08:45 116 30 179/78 (111) 100 04/04/20 08:30 115 34 173/94 (120) 99 04/04/20 08:15 116 33 151/82 (105) 92 04/04/20 08:00 Mechanical Ventilator 04/04/20 08:00 115 31 172/89 (116) 99 04/04/20 08:00 30 04/04/20 07:55 114 04/04/20 07:45 111 32 162/81 (108) 99 04/04/20 07:30 114 35 153/80 (104) 99 04/04/20 07:15 113 34 172/85 (114) 100 04/04/20 07:00 111 29 187/85 (119) 100 04/04/20 06:59 107 37 30 04/04/20 06:30 109 22 04/04/20 06:00 109 33 182/111 (134) 100 04/04/20 05:30 111 26 147/89 (108) 100 04/04/20 05:00 113 34 161/107 (125) 100 04/04/20 04:30 112 29 184/73 (110) 95 04/04/20 04:00 99.2 111 30 113/65 (81) 98 04/04/20 04:00 106 04/04/20 04:00 Mechanical Ventilator 04/04/20 04:00 30 04/04/20 03:30 107 30 101/42 (61) 100 04/04/20 03:00 101 29 169/64 (99) 100 04/04/20 02:58 113 32 30 04/04/20 02:30 101 29 160/61 (94) 99 04/04/20 02:15 98 27 165/65 (98) 100 04/04/20 02:00 99 29 164/67 (99) 100 04/04/20 01:30 99 26 163/77 (105) 100 04/04/20 01:00 101 26 154/63 (93) 100 04/04/20 00:30 93 23 118/61 (80) 100 04/04/20 00:00 30 04/04/20 00:00 Mechanical Ventilator 04/04/20 00:00 99.5 98 23 137/50 (79) 100 04/03/20 23:48 101 28 30 04/03/20 23:30 93 21 129/50 (76) 100 04/03/20 23:00 96 23 132/55 (80) 100 04/03/20 22:30 99.0 93 21 116/47 (70) 100 04/03/20 22:00 92 22 129/49 (75) 100 04/03/20 21:30 96 28 137/49 (78) 100 04/03/20 21:00 90 04/03/20 21:00 91 21 137/51 (79) 100 04/03/20 20:30 91 21 140/55 (83) 100 04/03/20 20:00 Mechanical Ventilator 04/03/20 20:00 30 04/03/20 20:00 98.0 95 18 140/59 (86) 100 04/03/20 19:30 88 21 127/54 (78) 100 04/03/20 19:30 101 25 30 04/03/20 19:00 88 20 134/51 (78) 100 04/03/20 18:00 91 19 128/57 (80) 100 04/03/20 17:30 92 25 148/63 (91) 99 04/03/20 17:04 91 25 130/60 (83) 100 04/03/20 16:15 84 17 140/51 (80) 100 04/03/20 16:00 30 04/03/20 16:00 Mechanical Ventilator 04/03/20 16:00 96.5 96 22 149/65 (93) 100 04/03/20 15:48 85 04/03/20 15:45 88 17 132/58 (82) 99 04/03/20 15:30 88 17 134/70 (91) 99 04/03/20 15:15 84 14 141/63 (89) 100 04/03/20 15:02 92 28 30 04/03/20 15:00 84 19 129/89 (102) 100 04/03/20 14:45 81 19 116/100 (105) 100 04/03/20 14:30 81 17 117/67 (84) 100 04/03/20 14:15 83 16 123/95 (104) 100 04/03/20 14:00 93 18 144/75 (98) 100 04/03/20 13:30 86 18 137/56 (83) 100 Intake and Output 04/03/20 04/04/20 19:00 07:00 Intake Total 1852.450 ml 1869.92 ml Output Total 1240 ml 750 ml Balance 612.450 ml 1119.92 ml Intake Free Water 100 ml IV Total 1532.450 ml 1109.92 ml Tube Feeding 220 ml 660 ml Other 100 ml Output Urine Total 1040 ml 750 ml Stool Total 200 ml Laboratory Tests 04/03/20 19:05: Troponin I 0.005 04/04/20 03:00: Troponin I 0.000, White Blood Count 19.1H, Red Blood Count 3.32L, Hemoglobin 8.6L, Hematocrit 28.7L, Mean Corpuscular Volume 86, Mean Corpuscular Hemoglobin 25.9L, Mean Corpuscular Hemoglobin Concent 30.0L, Red Cell Distribution Width 20.6H, Platelet Count 229, Mean Platelet Volume 8.0, Neutrophils (%) (Auto) , Lymphocytes (%) (Auto) , Monocytes (%) (Auto) , Eosinophils (%) (Auto) , Basophils (%) (Auto) , Differential Total Cells Counted 100, Neutrophils % ( Manual) 89H, Lymphocytes % (Manual) 7L, Monocytes % (Manual) 4, Eosinophils % ( Manual) 0, Basophils % (Manual) 0, Band Neutrophils 0, Platelet Estimate Adequate, Platelet Morphology Normal, Polychromasia 1+, Hypochromasia 1+, Anisocytosis 2+, Sodium Level 146H, Potassium Level 3.7, Chloride Level 111H, Carbon Dioxide Level 26, Anion Gap 10, Blood Urea Nitrogen 72H, Creatinine 1.5H , Estimat Glomerular Filtration Rate 42.1, Glucose Level 119H, Calcium Level 8.3L, Phosphorus Level 2.6, Magnesium Level 1.8, Random Vancomycin Level 14.8, Digoxin Level 0.6L Height (Feet): 5 Height (Inches): 6.00 Weight (Pounds): 303 Objective General Appearance: other - intubated Lines, tubes and drains: peripheral HEENT: normocephalic, atraumatic Neck: non-tender, normal alignment, supple Respiratory/Chest: lungs clear Cardiovascular/Chest: normal peripheral pulses, tachycardia, irregularly irregular Abdomen: soft Skin Exam: normal pigmentation Neurologic: disoriented Venkat Montes M.D. Apr 04, 2020 13:23
--- NOTE | 2020-04-04 13:43 | Surgery Progress Note ---
Surgery Progress Note Subjective Additional Comments ill appearing labs noted micro reviewed Objective Last 24 Hour Vital Signs Date Time Temp Pulse Resp B/P (MAP) Pulse Ox O2 Delivery O2 Flow Rate FiO2 04/04/20 12:00 Mechanical Ventilator 04/04/20 12:00 30 04/04/20 11:55 111 04/04/20 10:45 106 28 171/82 (111) 100 04/04/20 10:40 107 30 30 04/04/20 10:30 106 30 155/72 (99) 100 04/04/20 10:15 106 26 162/71 (101) 100 04/04/20 10:00 105 30 140/76 (97) 100 04/04/20 09:45 108 29 163/78 (106) 100 04/04/20 09:30 111 31 162/73 (102) 100 04/04/20 09:23 100 04/04/20 09:18 111 20 168/66 (100) 100 04/04/20 09:15 112 34 180/68 (105) 100 04/04/20 09:00 99.4 113 31 158/93 (114) 100 04/04/20 08:45 116 30 179/78 (111) 100 04/04/20 08:30 115 34 173/94 (120) 99 04/04/20 08:15 116 33 151/82 (105) 92 04/04/20 08:00 Mechanical Ventilator 04/04/20 08:00 115 31 172/89 (116) 99 04/04/20 08:00 30 04/04/20 07:55 114 04/04/20 07:45 111 32 162/81 (108) 99 04/04/20 07:30 114 35 153/80 (104) 99 04/04/20 07:15 113 34 172/85 (114) 100 04/04/20 07:00 111 29 187/85 (119) 100 04/04/20 06:59 107 37 30 04/04/20 06:30 109 22 04/04/20 06:00 109 33 182/111 (134) 100 04/04/20 05:30 111 26 147/89 (108) 100 04/04/20 05:00 113 34 161/107 (125) 100 04/04/20 04:30 112 29 184/73 (110) 95 04/04/20 04:00 99.2 111 30 113/65 (81) 98 04/04/20 04:00 106 04/04/20 04:00 Mechanical Ventilator 04/04/20 04:00 30 04/04/20 03:30 107 30 101/42 (61) 100 04/04/20 03:00 101 29 169/64 (99) 100 04/04/20 02:58 113 32 30 04/04/20 02:30 101 29 160/61 (94) 99 04/04/20 02:15 98 27 165/65 (98) 100 04/04/20 02:00 99 29 164/67 (99) 100 04/04/20 01:30 99 26 163/77 (105) 100 04/04/20 01:00 101 26 154/63 (93) 100 04/04/20 00:30 93 23 118/61 (80) 100 04/04/20 00:00 30 04/04/20 00:00 Mechanical Ventilator 04/04/20 00:00 99.5 98 23 137/50 (79) 100 04/03/20 23:48 101 28 30 04/03/20 23:30 93 21 129/50 (76) 100 04/03/20 23:00 96 23 132/55 (80) 100 04/03/20 22:30 99.0 93 21 116/47 (70) 100 04/03/20 22:00 92 22 129/49 (75) 100 04/03/20 21:30 96 28 137/49 (78) 100 04/03/20 21:00 90 04/03/20 21:00 91 21 137/51 (79) 100 04/03/20 20:30 91 21 140/55 (83) 100 04/03/20 20:00 Mechanical Ventilator 04/03/20 20:00 30 04/03/20 20:00 98.0 95 18 140/59 (86) 100 04/03/20 19:30 88 21 127/54 (78) 100 04/03/20 19:30 101 25 30 04/03/20 19:00 88 20 134/51 (78) 100 04/03/20 18:00 91 19 128/57 (80) 100 04/03/20 17:30 92 25 148/63 (91) 99 04/03/20 17:04 91 25 130/60 (83) 100 04/03/20 16:15 84 17 140/51 (80) 100 04/03/20 16:00 30 04/03/20 16:00 Mechanical Ventilator 04/03/20 16:00 96.5 96 22 149/65 (93) 100 04/03/20 15:48 85 04/03/20 15:45 88 17 132/58 (82) 99 04/03/20 15:30 88 17 134/70 (91) 99 04/03/20 15:15 84 14 141/63 (89) 100 04/03/20 15:02 92 28 30 04/03/20 15:00 84 19 129/89 (102) 100 04/03/20 14:45 81 19 116/100 (105) 100 04/03/20 14:30 81 17 117/67 (84) 100 04/03/20 14:15 83 16 123/95 (104) 100 04/03/20 14:00 93 18 144/75 (98) 100 I&O Intake and Output 04/03/20 04/04/20 19:00 07:00 Intake Total 1852.450 ml 1869.92 ml Output Total 1240 ml 750 ml Balance 612.450 ml 1119.92 ml Intake Free Water 100 ml IV Total 1532.450 ml 1109.92 ml Tube Feeding 220 ml 660 ml Other 100 ml Output Urine Total 1040 ml 750 ml Stool Total 200 ml Dressing: other Wound: other Drains: other Cardiovascular: RSR Respiratory: decreased breath sounds Abdomen: soft, present bowel sounds, non-distended Extremities: no cyanosis Laboratory Tests Test 04/03/20 19:05 04/04/20 03:00 Troponin I 0.005 ng/mL (0.000-0.056) 0.000 ng/mL (0.000-0.056) White Blood Count 19.1 K/UL (4.8-10.8) H Red Blood Count 3.32 M/UL (4.20-5.40) L Hemoglobin 8.6 G/DL (12.0-16.0) L Hematocrit 28.7 % (37.0-47.0) L Mean Corpuscular Volume 86 FL (80-99) Mean Corpuscular Hemoglobin 25.9 PG (27.0-31.0) L Mean Corpuscular Hemoglobin Concent 30.0 G/DL (32.0-36.0) L Red Cell Distribution Width 20.6 % (11.6-14.8) H Platelet Count 229 K/UL (150-450) Mean Platelet Volume 8.0 FL (6.5-10.1) Neutrophils (%) (Auto) % (45.0-75.0) Lymphocytes (%) (Auto) % (20.0-45.0) Monocytes (%) (Auto) % (1.0-10.0) Eosinophils (%) (Auto) % (0.0-3.0) Basophils (%) (Auto) % (0.0-2.0) Differential Total Cells Counted 100 Neutrophils % (Manual) 89 % (45-75) H Lymphocytes % (Manual) 7 % (20-45) L Monocytes % (Manual) 4 % (1-10) Eosinophils % (Manual) 0 % (0-3) Basophils % (Manual) 0 % (0-2) Band Neutrophils 0 % (0-8) Platelet Estimate Adequate Platelet Morphology Normal Polychromasia 1+ Hypochromasia 1+ Anisocytosis 2+ Sodium Level 146 MMOL/L (136-145) H Potassium Level 3.7 MMOL/L (3.5-5.1) Chloride Level 111 MMOL/L (98-107) H Carbon Dioxide Level 26 MMOL/L (21-32) Anion Gap 10 mmol/L (5-15) Blood Urea Nitrogen 72 mg/dL (7-18) H Creatinine 1.5 MG/DL (0.55-1.30) H Estimat Glomerular Filtration Rate 42.1 mL/min (>60) Glucose Level 119 MG/DL (74-106) H Calcium Level 8.3 MG/DL (8.5-10.1) L Phosphorus Level 2.6 MG/DL (2.5-4.9) Magnesium Level 1.8 MG/DL (1.8-2.4) Random Vancomycin Level 14.8 ug/mL Digoxin Level 0.6 NG/ML (0.9-2.0) L Plan Problems: (1) Atrial flutter (2) Hypertension (3) Acute encephalopathy (4) VENTURA (acute kidney injury) (5) Acute and chronic respiratory failure with hypoxia (6) Abscess (7) Fistula (8) Sciatica neuralgia (9) Uncontrolled seizures (10) Forgetfulness (11) Sacral decubitus ulcer Assessment & Plan: Patient identified to have a sacral deep tissue injury upon admission Currently intensive care unit on support Care plan initiated (12) Chronic back pain (13) Overdose of opiate or related narcotic (14) Cellulitis of left leg (15) Pericolonic abscess due to diverticulitis (16) Ventral incisional hernia Assessment & Plan: History of colon resection colostomy Ventral incisional hernia reducible No acute invention monitor parastomal hernia stable ostomy viable and functional no acute intervention planned (17) Chronic pain of both knees (18) Dehydration (19) Hyperkalemia (20) Sepsis Assessment & Plan: Patient admitted identified to have sepsis leukocytosis tachycardia abnormal labs lactic acidosis. Chest x-ray reviewed. Imaging noted. Micro noted. Intensive care unit on support appreciate ICU care Nutritional optimization IV fluids IV antibiotics as per infectious disease tube feeds once stable will follow with recommendations thank you for letting participate patient's care Urosepsis on abx DAILY ESTIMATED NEEDS: Needs based on Critical care, sepsis 75.8kg adj 20-28 kcals/kg 7944-8968 total kcals 1.25-1.5 g protein/kg 95-152 g total protein 25-30 mL/kg 1722-3037 total fluid mLs NUTRITION DIAGNOSIS: Swallowing difficulty r/t respiratory status as evidenced by pt orally intubated, ICU status. CURRENT TF:NPO ENTERAL NUTRITION RECOMMENDATIONS: VITAL AF 1.2 @55ml/hr x24 hrs to provide 1320ml, 1584 kcal, 99g pro, 1071ml free H2O - As medically able, rec non oral feeds. Start VITAL 1.2 @low rate 15ml/hr x6 hrs, advance as tolerated 10ml/hr q4-6 hrs to goal. - Flush per MD/ HOB over 30 degrees -> IF POTASSIUM REMAINS ELEVATED-> Rec NEPRO w/ goal rate of 40ml/hr for 24 hrs to provide 960ml, 1728 kcal, 78g pro, 698ml free H2O. -> Feed w/ hemodynamic stability. ADDITIONAL RECOMMENDATIONS: 1) Maintain calibrated bed scale wts (248lbs vs 217lbs last adm) 2) F/up w/ WC eval. NPO at this time 3) Monitor lytes, need for renal formula 4) Feed when hemodynamically stable -> trophic feeds w/ low BP to maintain gut integrity Julian Iglesias Apr 04, 2020 13:43
--- NOTE | 2020-04-04 14:10 | Cardiac Electrophysiology PN ---
Assessment/Plan Assessment/Plan 1. Atrial flutter with rapid ventricular response of 170s.Change Cardizem drip to Cardizem 90 OG q 6 hr change amiodarone drip to 400 po tid; Also on anticoagulation with Xarelto 15 mg daily. Eventually, she would benefit from atrial flutter ablation from a critical approach for her arrhythmia. 2. Hypertension. Maximize Cardizem at this time. 3. Respiratory failure, still intubated via the T-tube. 4. Acute renal failure, that is improving. 5. Normal left ventricular systolic function based on the echocardiogram on March 26, 2020, with EF of 55%. Subjective Subjective Converted to SR on iv Amiodarone and CArdizem.Intubated in ICU Objective Last 24 Hour Vital Signs Date Time Temp Pulse Resp B/P (MAP) Pulse Ox O2 Delivery O2 Flow Rate FiO2 04/04/20 13:59 97 26 170/75 (106) 100 04/04/20 13:30 99 25 150/83 (105) 100 04/04/20 13:00 101 27 160/75 (103) 100 04/04/20 12:30 107 30 168/88 (114) 100 04/04/20 12:00 Mechanical Ventilator 04/04/20 12:00 30 04/04/20 12:00 109 31 173/104 (127) 100 04/04/20 11:55 111 04/04/20 11:30 113 33 151/83 (105) 100 04/04/20 11:00 112 26 161/63 (95) 100 04/04/20 10:45 106 28 171/82 (111) 100 04/04/20 10:40 107 30 30 04/04/20 10:30 106 30 155/72 (99) 100 04/04/20 10:15 106 26 162/71 (101) 100 04/04/20 10:00 105 30 140/76 (97) 100 04/04/20 09:45 108 29 163/78 (106) 100 04/04/20 09:30 111 31 162/73 (102) 100 04/04/20 09:23 100 04/04/20 09:18 111 20 168/66 (100) 100 04/04/20 09:15 112 34 180/68 (105) 100 04/04/20 09:00 99.4 113 31 158/93 (114) 100 04/04/20 08:45 116 30 179/78 (111) 100 04/04/20 08:30 115 34 173/94 (120) 99 04/04/20 08:15 116 33 151/82 (105) 92 04/04/20 08:00 Mechanical Ventilator 04/04/20 08:00 115 31 172/89 (116) 99 04/04/20 08:00 30 04/04/20 07:55 114 04/04/20 07:45 111 32 162/81 (108) 99 04/04/20 07:30 114 35 153/80 (104) 99 04/04/20 07:15 113 34 172/85 (114) 100 04/04/20 07:00 111 29 187/85 (119) 100 04/04/20 06:59 107 37 30 04/04/20 06:30 109 22 04/04/20 06:00 109 33 182/111 (134) 100 04/04/20 05:30 111 26 147/89 (108) 100 04/04/20 05:00 113 34 161/107 (125) 100 04/04/20 04:30 112 29 184/73 (110) 95 04/04/20 04:00 99.2 111 30 113/65 (81) 98 04/04/20 04:00 106 04/04/20 04:00 Mechanical Ventilator 04/04/20 04:00 30 04/04/20 03:30 107 30 101/42 (61) 100 04/04/20 03:00 101 29 169/64 (99) 100 04/04/20 02:58 113 32 30 04/04/20 02:30 101 29 160/61 (94) 99 04/04/20 02:15 98 27 165/65 (98) 100 04/04/20 02:00 99 29 164/67 (99) 100 04/04/20 01:30 99 26 163/77 (105) 100 04/04/20 01:00 101 26 154/63 (93) 100 04/04/20 00:30 93 23 118/61 (80) 100 04/04/20 00:00 30 04/04/20 00:00 Mechanical Ventilator 04/04/20 00:00 99.5 98 23 137/50 (79) 100 04/03/20 23:48 101 28 30 04/03/20 23:30 93 21 129/50 (76) 100 04/03/20 23:00 96 23 132/55 (80) 100 04/03/20 22:30 99.0 93 21 116/47 (70) 100 04/03/20 22:00 92 22 129/49 (75) 100 04/03/20 21:30 96 28 137/49 (78) 100 04/03/20 21:00 90 04/03/20 21:00 91 21 137/51 (79) 100 04/03/20 20:30 91 21 140/55 (83) 100 04/03/20 20:00 Mechanical Ventilator 04/03/20 20:00 30 04/03/20 20:00 98.0 95 18 140/59 (86) 100 04/03/20 19:30 88 21 127/54 (78) 100 04/03/20 19:30 101 25 30 04/03/20 19:00 88 20 134/51 (78) 100 04/03/20 18:00 91 19 128/57 (80) 100 04/03/20 17:30 92 25 148/63 (91) 99 04/03/20 17:04 91 25 130/60 (83) 100 04/03/20 16:15 84 17 140/51 (80) 100 04/03/20 16:00 30 04/03/20 16:00 Mechanical Ventilator 04/03/20 16:00 96.5 96 22 149/65 (93) 100 04/03/20 15:48 85 04/03/20 15:45 88 17 132/58 (82) 99 04/03/20 15:30 88 17 134/70 (91) 99 04/03/20 15:15 84 14 141/63 (89) 100 04/03/20 15:02 92 28 30 04/03/20 15:00 84 19 129/89 (102) 100 04/03/20 14:45 81 19 116/100 (105) 100 04/03/20 14:30 81 17 117/67 (84) 100 04/03/20 14:15 83 16 123/95 (104) 100 Intake and Output 04/03/20 04/04/20 19:00 07:00 Intake Total 1852.450 ml 1869.92 ml Output Total 1240 ml 750 ml Balance 612.450 ml 1119.92 ml Intake Free Water 100 ml IV Total 1532.450 ml 1109.92 ml Tube Feeding 220 ml 660 ml Other 100 ml Output Urine Total 1040 ml 750 ml Stool Total 200 ml Laboratory Tests Test 04/03/20 19:05 04/04/20 03:00 Troponin I 0.005 ng/mL (0.000-0.056) 0.000 ng/mL (0.000-0.056) White Blood Count 19.1 K/UL (4.8-10.8) H Red Blood Count 3.32 M/UL (4.20-5.40) L Hemoglobin 8.6 G/DL (12.0-16.0) L Hematocrit 28.7 % (37.0-47.0) L Mean Corpuscular Volume 86 FL (80-99) Mean Corpuscular Hemoglobin 25.9 PG (27.0-31.0) L Mean Corpuscular Hemoglobin Concent 30.0 G/DL (32.0-36.0) L Red Cell Distribution Width 20.6 % (11.6-14.8) H Platelet Count 229 K/UL (150-450) Mean Platelet Volume 8.0 FL (6.5-10.1) Neutrophils (%) (Auto) % (45.0-75.0) Lymphocytes (%) (Auto) % (20.0-45.0) Monocytes (%) (Auto) % (1.0-10.0) Eosinophils (%) (Auto) % (0.0-3.0) Basophils (%) (Auto) % (0.0-2.0) Differential Total Cells Counted 100 Neutrophils % (Manual) 89 % (45-75) H Lymphocytes % (Manual) 7 % (20-45) L Monocytes % (Manual) 4 % (1-10) Eosinophils % (Manual) 0 % (0-3) Basophils % (Manual) 0 % (0-2) Band Neutrophils 0 % (0-8) Platelet Estimate Adequate Platelet Morphology Normal Polychromasia 1+ Hypochromasia 1+ Anisocytosis 2+ Sodium Level 146 MMOL/L (136-145) H Potassium Level 3.7 MMOL/L (3.5-5.1) Chloride Level 111 MMOL/L (98-107) H Carbon Dioxide Level 26 MMOL/L (21-32) Anion Gap 10 mmol/L (5-15) Blood Urea Nitrogen 72 mg/dL (7-18) H Creatinine 1.5 MG/DL (0.55-1.30) H Estimat Glomerular Filtration Rate 42.1 mL/min (>60) Glucose Level 119 MG/DL (74-106) H Calcium Level 8.3 MG/DL (8.5-10.1) L Phosphorus Level 2.6 MG/DL (2.5-4.9) Magnesium Level 1.8 MG/DL (1.8-2.4) Random Vancomycin Level 14.8 ug/mL Digoxin Level 0.6 NG/ML (0.9-2.0) L Microbiology Date/Time Source Procedure Growth Status 04/03/20 04:55 Blood Blood Culture - Preliminary NO GROWTH AFTER 24 HOURS Resulted 04/03/20 04:50 Blood Blood Culture - Preliminary NO GROWTH AFTER 24 HOURS Resulted 04/03/20 04:00 Sputum Expectorated Gram Stain - Final Resulted 04/03/20 04:00 Sputum Culture - Preliminary Gram Negative Bacillus 1 Gram Negative Bacillus 2 Resulted 04/03/20 04:00 Indwelling Cath Urine Culture - Preliminary NO GROWTH AFTER 24 HOURS Resulted Objective NECK: Shows no JVD. She is orally intubated with OG tube. LUNGS: Coarse rhonchi. CARDIOVASCULAR: Regular S1 and S2 with no gallop. ABDOMEN: Soft. EXTREMITIES: No pitting edema. Carlos Dean MD Apr 04, 2020 14:10
--- NOTE | 2020-04-04 14:36 | Internal Med Progress Note ---
Subjective Physician Name DenzelCami Attending Physician Malathi Mendez MD Current Medications Medications (Trade) Dose Ordered Sig/Debbie Route PRN Reason Start Time Stop Time Status Last Admin Dose Admin Acetaminophen (Tylenol) 650 mg Q4H PRN ORAL Temp >100.5 03/26/20 21:15 04/25/20 21:14 04/01/20 05:32 Acetaminophen (Tylenol) 650 mg Q4H PRN ORAL Mild Pain (Pain Scale 1-3) 03/26/20 21:15 04/25/20 21:14 04/04/20 12:38 Al Hydroxide/Mg Hydroxide (Mylanta II) 30 ml Q6H PRN ORAL dyspepsia 03/26/20 21:15 04/25/20 21:14 Amiodarone HCl (Cordarone) 400 mg EVERY 8 HOURS ORAL 04/04/20 22:00 07/03/20 21:59 Bisacodyl (Dulcolax) 10 mg HSPRN PRN RECTAL Constipation 03/26/20 21:15 06/24/20 21:14 Cefepime HCl 2 gm/ Dextrose 100 ml @ 200 mls/hr Q24HRS IVPB 04/03/20 15:00 04/10/20 14:59 04/03/20 14:45 Chlorhexidine Gluconate (Laurie-Hex 2%) 1 applic DAILY@2000 TOPIC 03/28/20 20:00 06/26/20 19:59 04/03/20 20:22 Dextrose (Dextrose 50%) 25 ml Q30M PRN IV Hypoglycemia 03/26/20 21:15 06/24/20 21:14 Dextrose (Dextrose 50%) 50 ml Q30M PRN IV Hypoglycemia 03/26/20 21:15 06/24/20 21:14 Diltiazem HCl (Cardizem) 90 mg EVERY 8 HOURS ORAL 04/04/20 22:00 05/04/20 21:59 Diphenhydramine HCl (Benadryl) 25 mg Q6H PRN ORAL Itching/Pruritis 03/26/20 21:15 04/25/20 21:14 Docusate Sodium (Colace) 100 mg Q12HR NG 03/30/20 09:00 04/29/20 08:59 04/04/20 08:24 Gabapentin (Neurontin) 300 mg BEDTIME ORAL 03/27/20 21:00 04/26/20 20:59 04/03/20 20:22 Lorazepam (Ativan 2mg/ml 1ml) 1 mg Q4H PRN IV For Anxiety 04/03/20 09:15 04/08/20 13:14 04/04/20 03:16 Magnesium Hydroxide (Mom) 30 ml HSPRN PRN ORAL Constipation 03/26/20 21:15 04/25/20 21:14 Metoclopramide HCl (Reglan) 10 mg Q6H PRN IVP Nausea & Vomiting 03/26/20 21:15 04/25/20 21:14 Metronidazole 100 ml @ 100 mls/hr Q8HR IVPB 04/03/20 06:00 04/10/20 05:59 04/04/20 05:29 Morphine Sulfate (Morphine Sulfate) 2 mg Q4H PRN IVP Moderate Pain (Pain Scale 4-6) 04/01/20 13:15 04/08/20 13:14 04/04/20 12:37 Morphine Sulfate (Morphine Sulfate) 4 mg Q4H PRN IVP Severe Pain (Pain Scale 7-10) 04/01/20 13:15 04/08/20 13:14 04/04/20 00:55 Ondansetron HCl (Zofran) 4 mg Q6H PRN IVP Nausea & Vomiting 03/26/20 21:15 04/25/20 21:14 Pantoprazole (Protonix) 40 mg DAILY IVP 04/01/20 09:00 05/01/20 08:59 04/04/20 08:24 Polyethylene Glycol (Miralax) 17 gm HSPRN PRN ORAL Constipation 03/26/20 21:15 04/25/20 21:14 Rivaroxaban (Xarelto) 15 mg DAILY NG 03/31/20 09:00 06/29/20 08:59 04/04/20 08:24 Temazepam (Restoril) 15 mg HSPRN PRN ORAL Insomnia 04/01/20 10:15 04/08/20 10:14 Vancomycin HCl (Vanco pharmacy to dose) 1 ea DAILY PRN MISC Per rx protocol 03/27/20 20:15 04/26/20 20:14 Allergies: Coded Allergies: LISINOPRIL (Verified Allergy, Unknown, Hives, 04/12/14) Subjective Still unable to ween patient off vent; She is currently on Amiodarone Drip and Cardizem Drip. Per ID, will likely put patient on Carbapenem. Awaiting repeat Cultures; preliminary sputum w/ gram negative cultures. Objective Last Vital Signs Date Time Temp Pulse Resp B/P (MAP) Pulse Ox O2 Delivery O2 Flow Rate FiO2 04/04/20 13:59 97 26 170/75 (106) 100 04/04/20 12:00 Mechanical Ventilator 04/04/20 12:00 30 04/04/20 09:00 99.4 04/03/20 01:05 8.0 Laboratory Tests Test 04/03/20 19:05 04/04/20 03:00 Troponin I 0.005 ng/mL (0.000-0.056) 0.000 ng/mL (0.000-0.056) White Blood Count 19.1 K/UL (4.8-10.8) H Red Blood Count 3.32 M/UL (4.20-5.40) L Hemoglobin 8.6 G/DL (12.0-16.0) L Hematocrit 28.7 % (37.0-47.0) L Mean Corpuscular Volume 86 FL (80-99) Mean Corpuscular Hemoglobin 25.9 PG (27.0-31.0) L Mean Corpuscular Hemoglobin Concent 30.0 G/DL (32.0-36.0) L Red Cell Distribution Width 20.6 % (11.6-14.8) H Platelet Count 229 K/UL (150-450) Mean Platelet Volume 8.0 FL (6.5-10.1) Neutrophils (%) (Auto) % (45.0-75.0) Lymphocytes (%) (Auto) % (20.0-45.0) Monocytes (%) (Auto) % (1.0-10.0) Eosinophils (%) (Auto) % (0.0-3.0) Basophils (%) (Auto) % (0.0-2.0) Differential Total Cells Counted 100 Neutrophils % (Manual) 89 % (45-75) H Lymphocytes % (Manual) 7 % (20-45) L Monocytes % (Manual) 4 % (1-10) Eosinophils % (Manual) 0 % (0-3) Basophils % (Manual) 0 % (0-2) Band Neutrophils 0 % (0-8) Platelet Estimate Adequate Platelet Morphology Normal Polychromasia 1+ Hypochromasia 1+ Anisocytosis 2+ Sodium Level 146 MMOL/L (136-145) H Potassium Level 3.7 MMOL/L (3.5-5.1) Chloride Level 111 MMOL/L (98-107) H Carbon Dioxide Level 26 MMOL/L (21-32) Anion Gap 10 mmol/L (5-15) Blood Urea Nitrogen 72 mg/dL (7-18) H Creatinine 1.5 MG/DL (0.55-1.30) H Estimat Glomerular Filtration Rate 42.1 mL/min (>60) Glucose Level 119 MG/DL (74-106) H Calcium Level 8.3 MG/DL (8.5-10.1) L Phosphorus Level 2.6 MG/DL (2.5-4.9) Magnesium Level 1.8 MG/DL (1.8-2.4) Random Vancomycin Level 14.8 ug/mL Digoxin Level 0.6 NG/ML (0.9-2.0) L Microbiology Date/Time Source Procedure Growth Status 04/03/20 04:55 Blood Blood Culture - Preliminary NO GROWTH AFTER 24 HOURS Resulted 04/03/20 04:50 Blood Blood Culture - Preliminary NO GROWTH AFTER 24 HOURS Resulted 04/03/20 04:00 Sputum Expectorated Gram Stain - Final Resulted 04/03/20 04:00 Sputum Culture - Preliminary Gram Negative Bacillus 1 Gram Negative Bacillus 2 Resulted 04/03/20 04:00 Indwelling Cath Urine Culture - Preliminary NO GROWTH AFTER 24 HOURS Resulted Intake and Output 04/03/20 04/04/20 19:00 07:00 Intake Total 1852.450 ml 1869.92 ml Output Total 1240 ml 750 ml Balance 612.450 ml 1119.92 ml Intake Free Water 100 ml IV Total 1532.450 ml 1109.92 ml Tube Feeding 220 ml 660 ml Other 100 ml Output Urine Total 1040 ml 750 ml Stool Total 200 ml Objective General Appearance: other - Intubated, ET tube in place EENT: PERRL/EOMI Cardiovascular: arrhythmia, irregularly irregular Respiratory/Chest: other - Vented lung sounds, Fi02 35% Abdomen: non tender, soft Edema: mild edema Neurologic: pre parole counseling aide II-XII grossly normal Skin: warm/dry Assessment/Plan Assessment/Plan Assessment #Acute Hypoxic Resp Failure #Afib w/ RVR, now in SR, off heparin gtt and on Xarelto #Acute Renal Failure 2/2 ATN from Rhabo --> BUN and creatinine still very elevated, consider HD if concern of Uremic Encephalopathy; slowly improving #Rhabdo #Sepsis, HCAP/UTI, COVID negative #Seizure vs prolonged period of immobility --> once extubated will investigate cause of Rhabdo and try to discern more info #Hx of Colectomy w/ Colostomy Plan Appreciate Consultants and ICU team Weening Trials Vancomyin, Cefepime, Flagyl, Winters Cx--> f/U 04/04, anticipate changing to Carbapenem Amiodarone, Diltiazem, Metoprolol, S/P Digoxin 2/2 uncontrolled Aflutter Patient is on Apixiban [place] Bag care IVF per Nephro, may require HD given renal function but output good DVT and GI ppx; Tube Feeds * Will need to follow up why patient had Rhabdo? if Seizure hx could be uncontrolled seizure and then a neuro consult would be needed. Will look into s/ p extubation 04/02: Vent weening; f/u w/ ID recs regarding WBC and ongoing AB 04/03: Unable to wean patient as she has become hemodynamically unstable with elevated heart rate with atrial flutter in the 170s. Currently she is on amiodarone and Cardizem drip and did receive digoxin without good response today. We have recultured her , todd on broad-spectrum antibiotics with vancomycin, cefepime, Flagyl. Appreciate consultants. FiO2 at 35% on AC. Monitor urine output. 04/04: Remains on Cardizem and Amiodarone gtt; Patient unable to ween. Anticipate placing on Carbapenem. Cami Mahoney D.O. Apr 04, 2020 14:36
[2020-04-04] MEDS: dilTIAZem HCl 90mg tab ORAL SCH ×2 (15:23→21:39)
[2020-04-04] MEDS: Amiodarone 200mg tab ORAL SCH ×2 (15:24→21:39)
--- NOTE | 2020-04-04 15:34 | NUR ---
NURSE NOTES: Spoke with pharmacy. Cardizem 90mg and Amio 400mg PO given as ordered. Will stop Cardizem and Amio IV drips in 1 hour.
--- NOTE | 2020-04-04 17:06 | NUR ---
NURSE NOTES: PRN Morphine 2 mg IV given for leg pain. Cleaned and repositioned pt. Sacral dressing changed. HR 96 SR on rn cardiac rehab. Pt is off Amio and Cardizem drips at 1630. Will continue to monitor.
--- NOTE | 2020-04-04 18:06 | Infectious Diseases Prog Note ---
Assessment/Plan Assessment/Plan ASSESSMENT AND PLAN: 1. gram neg pna, uti, sepsis, fevers, leukocytosis, a.flutter, respiratory failure, atx, dony, + ua, atx fungemia risk - change to meropenem and micafungin (avoid diflucan which is potentially pro -arrhythmic) - f/u on sputum culture - covid-19 testing negative x 2 - monitor labs and chest x-ray - weaning per pulmonary medicine - communicated with Dr. Mahoney - d/w RN in icu 2. Respiratory failure, on vent. 3. Renal failure. 4. Diabetes. 5. Hypertension. 6. Diabetes and hypertension, treatment per primary care team. 7. Patient with history of altered mental status. 8. Seizure history. 9. Chronic neck pain. 10. Acute kidney injury and renal failure. 11. Allergies to lisinopril. 12. Social history is negative. 13. Family history is noncontributory. 14. MAR was noted. 15. Case was discussed with RN. 16. ICU care. 17. Skin care. 18. Continue treatment per primary consultants. Subjective Constitutional: Reports: fever HEENT: Reports: congestion Respiratory: Reports: shortness of breath Cardiovascular: Denies: chest pain Gastrointestinal/Abdominal: Denies: nausea, vomiting, diarrhea Genitourinary: Reports: other - + weiss Neurologic: Denies: headache Psychiatric: Denies: depression Skin: Denies: rash Hematologic: Denies: bleeding Musculoskeletal: Denies: pain Allergies: Coded Allergies: LISINOPRIL (Verified Allergy, Unknown, Hives, 04/12/14) Objective Vital Signs Last 24 Hour Vital Signs Date Time Temp Pulse Resp B/P (MAP) Pulse Ox O2 Delivery O2 Flow Rate FiO2 04/04/20 17:30 95 21 142/58 (86) 100 04/04/20 17:00 89 21 160/66 (97) 100 04/04/20 16:30 94 21 148/54 (85) 98 04/04/20 16:15 92 20 148/60 (89) 99 04/04/20 16:00 30 04/04/20 16:00 Mechanical Ventilator 04/04/20 16:00 95 22 155/64 (94) 100 04/04/20 15:45 91 23 145/61 (89) 100 04/04/20 15:30 97 26 158/71 (100) 97 04/04/20 15:23 95 157/70 04/04/20 15:18 97 04/04/20 15:05 107 26 30 04/04/20 15:00 98.0 99 25 157/73 (101) 98 04/04/20 13:59 97 26 170/75 (106) 100 04/04/20 13:30 99 25 150/83 (105) 100 04/04/20 13:00 101 27 160/75 (103) 100 04/04/20 12:30 107 30 168/88 (114) 100 04/04/20 12:00 99.3 04/04/20 12:00 Mechanical Ventilator 04/04/20 12:00 30 04/04/20 12:00 109 31 173/104 (127) 100 04/04/20 11:55 111 04/04/20 11:30 113 33 151/83 (105) 100 04/04/20 11:00 112 26 161/63 (95) 100 04/04/20 10:45 106 28 171/82 (111) 100 04/04/20 10:40 107 30 30 04/04/20 10:30 106 30 155/72 (99) 100 04/04/20 10:15 106 26 162/71 (101) 100 04/04/20 10:00 105 30 140/76 (97) 100 04/04/20 09:45 108 29 163/78 (106) 100 04/04/20 09:30 111 31 162/73 (102) 100 04/04/20 09:23 100 04/04/20 09:18 111 20 168/66 (100) 100 04/04/20 09:15 112 34 180/68 (105) 100 04/04/20 09:00 99.4 113 31 158/93 (114) 100 04/04/20 08:45 116 30 179/78 (111) 100 04/04/20 08:30 115 34 173/94 (120) 99 04/04/20 08:15 116 33 151/82 (105) 92 04/04/20 08:00 Mechanical Ventilator 04/04/20 08:00 115 31 172/89 (116) 99 04/04/20 08:00 30 04/04/20 07:55 114 04/04/20 07:45 111 32 162/81 (108) 99 04/04/20 07:30 114 35 153/80 (104) 99 04/04/20 07:15 113 34 172/85 (114) 100 04/04/20 07:00 111 29 187/85 (119) 100 04/04/20 06:59 107 37 30 04/04/20 06:30 109 22 04/04/20 06:00 109 33 182/111 (134) 100 04/04/20 05:30 111 26 147/89 (108) 100 04/04/20 05:00 113 34 161/107 (125) 100 04/04/20 04:30 112 29 184/73 (110) 95 04/04/20 04:00 99.2 111 30 113/65 (81) 98 04/04/20 04:00 106 04/04/20 04:00 Mechanical Ventilator 04/04/20 04:00 30 04/04/20 03:30 107 30 101/42 (61) 100 04/04/20 03:00 101 29 169/64 (99) 100 04/04/20 02:58 113 32 30 04/04/20 02:30 101 29 160/61 (94) 99 04/04/20 02:15 98 27 165/65 (98) 100 04/04/20 02:00 99 29 164/67 (99) 100 04/04/20 01:30 99 26 163/77 (105) 100 04/04/20 01:00 101 26 154/63 (93) 100 04/04/20 00:30 93 23 118/61 (80) 100 04/04/20 00:00 30 04/04/20 00:00 Mechanical Ventilator 04/04/20 00:00 99.5 98 23 137/50 (79) 100 04/03/20 23:48 101 28 30 04/03/20 23:30 93 21 129/50 (76) 100 04/03/20 23:00 96 23 132/55 (80) 100 04/03/20 22:30 99.0 93 21 116/47 (70) 100 04/03/20 22:00 92 22 129/49 (75) 100 04/03/20 21:30 96 28 137/49 (78) 100 04/03/20 21:00 90 04/03/20 21:00 91 21 137/51 (79) 100 04/03/20 20:30 91 21 140/55 (83) 100 04/03/20 20:00 Mechanical Ventilator 04/03/20 20:00 30 04/03/20 20:00 98.0 95 18 140/59 (86) 100 04/03/20 19:30 88 21 127/54 (78) 100 04/03/20 19:30 101 25 30 04/03/20 19:00 88 20 134/51 (78) 100 04/03/20 18:00 91 19 128/57 (80) 100 Height (Feet): 5 Height (Inches): 6.00 Weight (Pounds): 303 General Appearance: no acute distress HEENT: normocephalic, atraumatic, anicteric, mucous membranes moist Respiratory/Chest: crackles/rales, rhonchi - bilaterally Cardiovascular: normal rate, regular rhythm, no gallop/murmur, no JVD Abdomen: normal bowel sounds, soft, non tender, no organomegaly, non distended Genitourinary: other - + weiss Extremities: no cyanosis Skin: no rash 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 There is some increased atelectasis at the right lung base. There is minimal left basilar atelectasis as well. The heart size is normal. Impression: Increased right basilar atelectasis. Otherwise little gear changer one day, findings as noted 04/03/20 - Procedure: XRAY Chest 1v Procedure: XRAY Chest 1v Reason for study: Shortness of breath. Comparison films: 03/29/2020. FINDINGS: Endotracheal tube, NG tube and left PICC line remain in place. Vascularity is normal. There is worsening of bilateral infiltrates. Cardiac and mediastinal silhouette are within normal limits. CP angles are sharp. The bony thorax appear unremarkable. IMPRESSION: Worsening of bilateral infiltrates. Microbiology Date/Time Source Procedure Growth Status 04/03/20 04:55 Blood Blood Culture - Preliminary NO GROWTH AFTER 24 HOURS Resulted 04/03/20 04:50 Blood Blood Culture - Preliminary NO GROWTH AFTER 24 HOURS Resulted 04/03/20 04:00 Sputum Expectorated Gram Stain - Final Resulted 04/03/20 04:00 Sputum Culture - Preliminary Gram Negative Bacillus 1 Gram Negative Bacillus 2 Resulted 04/03/20 04:00 Indwelling Cath Urine Culture - Preliminary NO GROWTH AFTER 24 HOURS Resulted Laboratory Tests Test 04/03/20 19:05 04/04/20 03:00 Troponin I 0.005 ng/mL (0.000-0.056) 0.000 ng/mL (0.000-0.056) White Blood Count 19.1 K/UL (4.8-10.8) H Red Blood Count 3.32 M/UL (4.20-5.40) L Hemoglobin 8.6 G/DL (12.0-16.0) L Hematocrit 28.7 % (37.0-47.0) L Mean Corpuscular Volume 86 FL (80-99) Mean Corpuscular Hemoglobin 25.9 PG (27.0-31.0) L Mean Corpuscular Hemoglobin Concent 30.0 G/DL (32.0-36.0) L Red Cell Distribution Width 20.6 % (11.6-14.8) H Platelet Count 229 K/UL (150-450) Mean Platelet Volume 8.0 FL (6.5-10.1) Neutrophils (%) (Auto) % (45.0-75.0) Lymphocytes (%) (Auto) % (20.0-45.0) Monocytes (%) (Auto) % (1.0-10.0) Eosinophils (%) (Auto) % (0.0-3.0) Basophils (%) (Auto) % (0.0-2.0) Differential Total Cells Counted 100 Neutrophils % (Manual) 89 % (45-75) H Lymphocytes % (Manual) 7 % (20-45) L Monocytes % (Manual) 4 % (1-10) Eosinophils % (Manual) 0 % (0-3) Basophils % (Manual) 0 % (0-2) Band Neutrophils 0 % (0-8) Platelet Estimate Adequate Platelet Morphology Normal Polychromasia 1+ Hypochromasia 1+ Anisocytosis 2+ Sodium Level 146 MMOL/L (136-145) H Potassium Level 3.7 MMOL/L (3.5-5.1) Chloride Level 111 MMOL/L (98-107) H Carbon Dioxide Level 26 MMOL/L (21-32) Anion Gap 10 mmol/L (5-15) Blood Urea Nitrogen 72 mg/dL (7-18) H Creatinine 1.5 MG/DL (0.55-1.30) H Estimat Glomerular Filtration Rate 42.1 mL/min (>60) Glucose Level 119 MG/DL (74-106) H Calcium Level 8.3 MG/DL (8.5-10.1) L Phosphorus Level 2.6 MG/DL (2.5-4.9) Magnesium Level 1.8 MG/DL (1.8-2.4) Random Vancomycin Level 14.8 ug/mL Digoxin Level 0.6 NG/ML (0.9-2.0) L Current Medications Medications (Trade) Dose Ordered Sig/Debbie Route PRN Reason Start Time Stop Time Status Last Admin Dose Admin Acetaminophen (Tylenol) 650 mg Q4H PRN ORAL Temp >100.5 03/26/20 21:15 04/25/20 21:14 04/01/20 05:32 Acetaminophen (Tylenol) 650 mg Q4H PRN ORAL Mild Pain (Pain Scale 1-3) 03/26/20 21:15 04/25/20 21:14 04/04/20 12:38 Al Hydroxide/Mg Hydroxide (Mylanta II) 30 ml Q6H PRN ORAL dyspepsia 03/26/20 21:15 04/25/20 21:14 Amiodarone HCl (Cordarone) 400 mg EVERY 8 HOURS ORAL 04/04/20 15:00 07/03/20 14:59 04/04/20 15:24 Bisacodyl (Dulcolax) 10 mg HSPRN PRN RECTAL Constipation 03/26/20 21:15 06/24/20 21:14 Chlorhexidine Gluconate (Laurie-Hex 2%) 1 applic DAILY@1999 TOPIC 03/28/20 20:00 06/26/20 19:59 04/03/20 20:22 Dextrose (Dextrose 50%) 25 ml Q30M PRN IV Hypoglycemia 03/26/20 21:15 06/24/20 21:14 Dextrose (Dextrose 50%) 50 ml Q30M PRN IV Hypoglycemia 03/26/20 21:15 06/24/20 21:14 Diltiazem HCl (Cardizem) 90 mg EVERY 8 HOURS ORAL 04/04/20 15:00 05/04/20 14:59 04/04/20 15:23 Diphenhydramine HCl (Benadryl) 25 mg Q6H PRN ORAL Itching/Pruritis 03/26/20 21:15 04/25/20 21:14 Docusate Sodium (Colace) 100 mg Q12HR NG 03/30/20 09:00 04/29/20 08:59 04/04/20 08:24 Gabapentin (Neurontin) 300 mg BEDTIME ORAL 03/27/20 21:00 04/26/20 20:59 04/03/20 20:22 Lorazepam (Ativan 2mg/ml 1ml) 1 mg Q4H PRN IV For Anxiety 04/03/20 09:15 04/08/20 13:14 04/04/20 03:16 Magnesium Hydroxide (Mom) 30 ml HSPRN PRN ORAL Constipation 03/26/20 21:15 04/25/20 21:14 Meropenem 1 gm/ Sodium Chloride 100 ml @ 200 mls/hr Q12HR IVPB 04/04/20 21:00 04/09/20 20:59 Metoclopramide HCl (Reglan) 10 mg Q6H PRN IVP Nausea & Vomiting 03/26/20 21:15 04/25/20 21:14 Morphine Sulfate (Morphine Sulfate) 2 mg Q4H PRN IVP Moderate Pain (Pain Scale 4-6) 04/01/20 13:15 04/08/20 13:14 04/04/20 17:06 Morphine Sulfate (Morphine Sulfate) 4 mg Q4H PRN IVP Severe Pain (Pain Scale 7-10) 04/01/20 13:15 04/08/20 13:14 04/04/20 00:55 Ondansetron HCl (Zofran) 4 mg Q6H PRN IVP Nausea & Vomiting 03/26/20 21:15 04/25/20 21:14 Pantoprazole (Protonix) 40 mg DAILY IVP 04/01/20 09:00 05/01/20 08:59 04/04/20 08:24 Polyethylene Glycol (Miralax) 17 gm HSPRN PRN ORAL Constipation 03/26/20 21:15 04/25/20 21:14 Rivaroxaban (Xarelto) 15 mg DAILY NG 03/31/20 09:00 06/29/20 08:59 04/04/20 08:24 Temazepam (Restoril) 15 mg HSPRN PRN ORAL Insomnia 04/01/20 10:15 04/08/20 10:14 Vancomycin HCl ([facility] pharmacy to dose) 1 ea DAILY PRN MISC Per rx protocol 03/27/20 20:15 04/26/20 20:14 Jose Valdes MD Apr 04, 2020 18:06
--- NOTE | 2020-04-04 19:11 | NUR ---
HAND-OFF: Report given to JOSSELYN Juan.
--- NOTE | 2020-04-04 19:58 | NUR ---
NURSE NOTES: received report from ulises puckett rn orally intubated -vent o2 sat 100% no acute resp distress noted reposition and suction tolerating tube feeding no residual
[2020-04-04] MEDS: Dyna-Hex 2% Top Sol 2oz TOPIC SCH (20:48)
--- NOTE | 2020-04-04 22:00 | NUR ---
NURSE NOTES: NURSE NOTES: asking pain medication ms given as order
[2020-04-05] VITALS (25 sets, daily range): BP systolic 108–167; BP diastolic 51–138
--- NOTE | 2020-04-05 02:00 | NUR ---
NURSE NOTES: asleep no acute distress noted
--- NOTE | 2020-04-05 04:00 | NUR ---
NURSE NOTES: complete bed bath oral care done wound care done central line dressing change
[2020-04-05] MEDS: Morphine Sulfate 4mg/ml Inj (IV USE ONLY) IVP PRN ×5 (04:04→22:36)
[2020-04-05 04:37] LABS: BASOPHILS % (AUTO) 1.5 % (0.0-2.0); EOSINOPHILS % (AUTO) 1.6 % (0.0-3.0); HEMATOCRIT 28.6 % (37.0-47.0); LYMPHOCYTES % (AUTO) 3.7 % (20.0-45.0); MEAN CORPUSCULAR VOLUME 90 FL (80-99); MONOCYTES % (AUTO) 9.3 % (1.0-10.0); PLATELET COUNT 169 K/UL (150-450); RED BLOOD COUNT 3.17 M/UL (4.20-5.40); RED CELL DISTRIBUTION WIDTH 22.3 % (11.6-14.8); WHITE BLOOD COUNT 13.2 K/UL (4.8-10.8)
[2020-04-05 05:18] LABS: ALANINE AMINOTRANSFERASE 9 U/L (12-78); ALBUMIN 1.4 G/DL (3.4-5.0); ALBUMIN/GLOBULIN RATIO 0.4 (1.0-2.7); ALKALINE PHOSPHATASE 87 U/L (46-116); ANION GAP 8 mmol/L (5-15); ASPARTATE AMINO TRANSFERASE 23 U/L (15-37); BILIRUBIN,TOTAL 0.3 MG/DL (0.2-1.0); BLOOD UREA NITROGEN 59 mg/dL (7-18); CALCIUM 8.3 MG/DL (8.5-10.1); CARBON DIOXIDE 23 MMOL/L (21-32); CHLORIDE 112 MMOL/L (98-107); CREATININE 1.4 MG/DL (0.55-1.30); POTASSIUM 3.5 MMOL/L (3.5-5.1); SODIUM 143 MMOL/L (136-145)
[2020-04-05 05:19] LABS: PHOSPHORUS 4.1 MG/DL (2.5-4.9)
[2020-04-05] MEDS: Amiodarone 200mg tab ORAL SCH (05:30)
[2020-04-05] MEDS: dilTIAZem HCl 90mg tab ORAL SCH ×3 (05:31→21:27)
--- NOTE | 2020-04-05 06:00 | NUR ---
NURSE NOTES: reposition and suction no acute resp distress noted
--- NOTE | 2020-04-05 07:30 | NUR ---
NURSE NOTES: WEANING STARTED AT 0710 WITH SETTING OF CPAP, PS 8, FIO2 30% WITH PEEP OF 5, SHE IS SATURATING AT 99-100%, NO SYMPTOMS OF RETRACTIONS OF DISTRESS NOTED AT THIS TIME. SHE REMAINS WITH NO SHORTNESS OR BREATHS AND ABLE TO FOLLOW COMMANDS, SHE OPENS EYES SPONTANEOUSLY. SHE IS CURRENTLY ON COOLING BLANKET WITH TEMPERATURE OF 99.7 USING THE RECTAL PROBE. WILL CONTINUE TO MONITOR PATIENT DURING WEANING,.
[2020-04-05] MEDS: Xarelto 15mg tab NG SCH (09:20)
[2020-04-05] MEDS: Pantoprazole Inj IVP SCH (09:20)
[2020-04-05] MEDS: Docusate 100mg/10ml Liq NG SCH ×2 (09:20→20:44)
--- NOTE | 2020-04-05 09:26 | Cardiology Progress Note ---
Assessment/Plan Status: stable Assessment/Plan Assessment/Plan Problem List: (1) Atrial flutter ICD Codes: I48.92 - Unspecified atrial flutter SNOMED: 6288977 (2) Hypertension ICD Codes: I10 - Essential (primary) hypertension SNOMED: 91418421 (3) Hyperkalemia ICD Codes: E87.5 - Hyperkalemia SNOMED: 12197984 (4) Acute encephalopathy ICD Codes: G93.40 - Encephalopathy, unspecified SNOMED: 1981580 (5) Acute and chronic respiratory failure with hypoxia ICD Codes: J96.21 - Acute and chronic respiratory failure with hypoxia SNOMED: 50537211, 817168897 (6) VENTURA (acute kidney injury) ICD Codes: N17.9 - Acute kidney failure, unspecified SNOMED: 4938249, 03246148 Status: deteriorating AFIB/Flutter Converted to normal sinus Continue amiodarone to maintain sinus Cardizem for rate control Echocardiogram with normal LV function Ischemia evaluation prior to d/c when stable Continue anticoagulation with xarelto EP for ablation Wean from vent Critical care 30 minutes Subjective Cardiovascular: Reports: no symptoms Respiratory: Reports: no symptoms Gastrointestinal/Abdominal: Reports: no symptoms Genitourinary: Reports: no symptoms Subjective Continues to be sedated and intubated in ICU She has maintained normal sinus and is not on NGT amiodarone and cardizem with stable blood pressures Appreciate EP recommendations, will need ablation when stable as outpatient Objective Last 24 Hour Vital Signs Date Time Temp Pulse Resp B/P (MAP) Pulse Ox O2 Delivery O2 Flow Rate FiO2 04/05/20 08:34 95 23 30 04/05/20 07:10 100 04/05/20 07:10 96 15 30 04/05/20 06:30 92 22 04/05/20 06:00 90 14 130/54 (79) 100 04/05/20 05:31 94 124/54 04/05/20 05:00 97 15 127/59 (81) 100 04/05/20 04:00 30 04/05/20 04:00 Mechanical Ventilator 04/05/20 04:00 99.4 100 10 144/62 (89) 100 04/05/20 04:00 85 04/05/20 03:00 104 19 30 04/05/20 03:00 100 15 124/60 (81) 100 04/05/20 02:00 100 23 133/62 (85) 100 04/05/20 01:00 98.8 95 19 130/54 (79) 100 04/05/20 00:00 103 14 142/58 (86) 100 04/05/20 00:00 Mechanical Ventilator 04/05/20 00:00 90 04/05/20 00:00 30 04/04/20 23:01 104 27 30 04/04/20 23:00 98.3 97 22 143/61 (88) 99 04/04/20 23:00 98 17 134/55 (81) 100 04/04/20 22:00 98.3 97 22 143/61 (88) 99 04/04/20 21:39 90 140/46 04/04/20 21:00 98 17 134/60 (84) 100 04/04/20 20:30 101 18 117/88 (98) 99 04/04/20 20:00 Mechanical Ventilator 04/04/20 20:00 30 04/04/20 20:00 96 21 133/55 (81) 100 04/04/20 20:00 100 04/04/20 19:07 94 20 30 04/04/20 19:00 98.6 98 23 156/62 (93) 100 04/04/20 18:26 97 19 138/54 (82) 100 04/04/20 18:00 90 19 144/55 (84) 100 04/04/20 17:30 95 21 142/58 (86) 100 04/04/20 17:00 89 21 160/66 (97) 100 04/04/20 16:30 94 21 148/54 (85) 98 04/04/20 16:15 92 20 148/60 (89) 99 04/04/20 16:00 30 04/04/20 16:00 Mechanical Ventilator 04/04/20 16:00 95 22 155/64 (94) 100 04/04/20 15:45 91 23 145/61 (89) 100 04/04/20 15:30 97 26 158/71 (100) 97 04/04/20 15:23 95 157/70 04/04/20 15:18 97 04/04/20 15:05 107 26 30 04/04/20 15:00 98.0 99 25 157/73 (101) 98 04/04/20 13:59 97 26 170/75 (106) 100 04/04/20 13:30 99 25 150/83 (105) 100 04/04/20 13:00 101 27 160/75 (103) 100 04/04/20 12:30 107 30 168/88 (114) 100 04/04/20 12:00 99.3 04/04/20 12:00 Mechanical Ventilator 04/04/20 12:00 30 04/04/20 12:00 109 31 173/104 (127) 100 04/04/20 11:55 111 04/04/20 11:30 113 33 151/83 (105) 100 04/04/20 11:00 112 26 161/63 (95) 100 04/04/20 10:45 106 28 171/82 (111) 100 04/04/20 10:40 107 30 30 04/04/20 10:30 106 30 155/72 (99) 100 04/04/20 10:15 106 26 162/71 (101) 100 04/04/20 10:00 105 30 140/76 (97) 100 04/04/20 09:45 108 29 163/78 (106) 100 04/04/20 09:30 111 31 162/73 (102) 100 General Appearance: no apparent distress, on vent EENT: PERRL/EOMI, normal ENT inspection, TMs normal, pharynx normal Neck: non-tender, normal alignment, supple, normal inspection, no JVD Rhythm: NSR Cardiovascular: normal peripheral pulses, normal rate Respiratory/Chest: chest wall non-tender, lungs clear, normal breath sounds Abdomen: normal bowel sounds, non tender, soft, no organomegaly, no mass Extremities: normal range of motion, non-tender, normal inspection, no calf tenderness, no swelling 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, no motor/sensory deficits Intake and Output 04/04/20 04/05/20 19:00 07:00 Intake Total 1992.020 ml 1055 ml Output Total 1215 ml 870 ml Balance 777.020 ml 185 ml Intake Free Water 50 ml 250 ml IV Total 1082.020 ml 200 ml Tube Feeding 660 ml 605 ml Other 200 ml Output Urine Total 1065 ml 870 ml Stool Total 150 ml Laboratory Tests Test 04/05/20 03:50 White Blood Count 13.2 K/UL (4.8-10.8) H Red Blood Count 3.17 M/UL (4.20-5.40) L Hemoglobin 9.0 G/DL (12.0-16.0) L Hematocrit 28.6 % (37.0-47.0) L Mean Corpuscular Volume 90 FL (80-99) Mean Corpuscular Hemoglobin 28.4 PG (27.0-31.0) Mean Corpuscular Hemoglobin Concent 31.5 G/DL (32.0-36.0) L Red Cell Distribution Width 22.3 % (11.6-14.8) H Platelet Count 169 K/UL (150-450) Mean Platelet Volume 6.7 FL (6.5-10.1) Neutrophils (%) (Auto) 84.0 % (45.0-75.0) H Lymphocytes (%) (Auto) 3.7 % (20.0-45.0) L Monocytes (%) (Auto) 9.3 % (1.0-10.0) Eosinophils (%) (Auto) 1.6 % (0.0-3.0) Basophils (%) (Auto) 1.5 % (0.0-2.0) Sodium Level 143 MMOL/L (136-145) Potassium Level 3.5 MMOL/L (3.5-5.1) Chloride Level 112 MMOL/L (98-107) H Carbon Dioxide Level 23 MMOL/L (21-32) Anion Gap 8 mmol/L (5-15) Blood Urea Nitrogen 59 mg/dL (7-18) H Creatinine 1.4 MG/DL (0.55-1.30) H Estimat Glomerular Filtration Rate 45.5 mL/min (>60) Glucose Level 127 MG/DL (74-106) H Calcium Level 8.3 MG/DL (8.5-10.1) L Phosphorus Level 4.1 MG/DL (2.5-4.9) Magnesium Level 2.0 MG/DL (1.8-2.4) Total Bilirubin 0.3 MG/DL (0.2-1.0) Aspartate Amino Transf (AST/SGOT) 23 U/L (15-37) Alanine Aminotransferase (ALT/SGPT) 9 U/L (12-78) L Alkaline Phosphatase 87 U/L (46-116) Total Protein 5.2 G/DL (6.4-8.2) L Albumin 1.4 G/DL (3.4-5.0) L Globulin 3.8 g/dL Albumin/Globulin Ratio 0.4 (1.0-2.7) L Digoxin Level 0.6 NG/ML (0.9-2.0) L Microbiology Date/Time Source Procedure Growth Status 04/03/20 04:55 Blood Blood Culture - Preliminary NO GROWTH AFTER 48 HOURS Resulted 04/03/20 04:50 Blood Blood Culture - Preliminary NO GROWTH AFTER 48 HOURS Resulted 04/03/20 04:00 Sputum Expectorated Gram Stain - Final Resulted 04/03/20 04:00 Sputum Culture - Preliminary Escherichia Coli - Esbl A.baumanii Complx - Mdr Resulted 04/03/20 04:00 Indwelling Cath Urine Culture - Final NO GROWTH AFTER 48 HOURS Rafat Kirkland MD Apr 05, 2020 09:26
--- NOTE | 2020-04-05 09:30 | NUR ---
NURSE NOTES: DR. CARTER UPDATED ON PATIENT HEART RATE. HEART RATE CONVERTED TO SINUS TACHYCARDIA SPONTANEOUSLY, DR. CARTER UPDATED ON CONVERSION BY CHARGE NURSE, SERAFIN. NO VERBAL ORDERS GIVEN AT THIS TIME.
--- NOTE | 2020-04-05 10:28 | Cardiac Electrophysiology PN ---
Assessment/Plan Assessment/Plan 1. Atrial flutter with rapid ventricular response of 170s. On Cardizem 90 OG tid and amiodarone 400 po tid On anticoagulation with Xarelto 15 mg daily. Would need atrial flutter ablation 2. Hypertension. Maximize Cardizem at this time. 3. Respiratory failure, still intubated via the T-tube. 4. Acute renal failure, that is improving. 5. Normal left ventricular systolic function based on the echocardiogram on March 26, 2020, with EF of 55%. Subjective Subjective Developed atrial flutter again. On NGT Amiodarone and Cardizem.Intubated in ICU Objective Last 24 Hour Vital Signs Date Time Temp Pulse Resp B/P (MAP) Pulse Ox O2 Delivery O2 Flow Rate FiO2 04/05/20 10:00 129 18 145/79 (101) 100 04/05/20 10:00 98 14 145/79 (101) 100 04/05/20 09:00 96 18 138/57 (84) 100 04/05/20 09:00 96 24 128/52 (77) 100 04/05/20 08:34 95 23 30 04/05/20 08:00 Mechanical Ventilator 04/05/20 08:00 99.7 95 25 129/51 (77) 100 04/05/20 08:00 30 04/05/20 08:00 108 04/05/20 08:00 96 23 150/79 (102) 100 04/05/20 07:10 100 04/05/20 07:10 96 15 30 04/05/20 07:00 94 21 125/51 (75) 100 04/05/20 07:00 95 21 136/57 (83) 100 04/05/20 06:30 92 22 04/05/20 06:00 90 14 130/54 (79) 100 04/05/20 05:31 94 124/54 04/05/20 05:00 97 15 127/59 (81) 100 04/05/20 04:00 30 04/05/20 04:00 Mechanical Ventilator 04/05/20 04:00 99.4 100 10 144/62 (89) 100 04/05/20 04:00 85 04/05/20 03:00 104 19 30 04/05/20 03:00 100 15 124/60 (81) 100 6/18/20 02:00 100 23 133/62 (85) 100 04/05/20 01:00 98.8 95 19 130/54 (79) 100 04/05/20 00:00 103 14 142/58 (86) 100 04/05/20 00:00 Mechanical Ventilator 04/05/20 00:00 90 04/05/20 00:00 30 04/04/20 23:01 104 27 30 04/04/20 23:00 98.3 97 22 143/61 (88) 99 04/04/20 23:00 98 17 134/55 (81) 100 04/04/20 22:00 98.3 97 22 143/61 (88) 99 04/04/20 21:39 90 140/46 04/04/20 21:00 98 17 134/60 (84) 100 04/04/20 20:30 101 18 117/88 (98) 99 04/04/20 20:00 Mechanical Ventilator 04/04/20 20:00 30 04/04/20 20:00 96 21 133/55 (81) 100 04/04/20 20:00 100 04/04/20 19:07 94 20 30 04/04/20 19:00 98.6 98 23 156/62 (93) 100 04/04/20 18:26 97 19 138/54 (82) 100 04/04/20 18:00 90 19 144/55 (84) 100 04/04/20 17:30 95 21 142/58 (86) 100 04/04/20 17:00 89 21 160/66 (97) 100 04/04/20 16:30 94 21 148/54 (85) 98 04/04/20 16:15 92 20 148/60 (89) 99 04/04/20 16:00 30 04/04/20 16:00 Mechanical Ventilator 04/04/20 16:00 95 22 155/64 (94) 100 04/04/20 15:45 91 23 145/61 (89) 100 04/04/20 15:30 97 26 158/71 (100) 97 04/04/20 15:23 95 157/70 04/04/20 15:18 97 04/04/20 15:05 107 26 30 04/04/20 15:00 98.0 99 25 157/73 (101) 98 04/04/20 13:59 97 26 170/75 (106) 100 6/17/20 13:30 99 25 150/83 (105) 100 04/04/20 13:00 101 27 160/75 (103) 100 04/04/20 12:30 107 30 168/88 (114) 100 04/04/20 12:00 99.3 04/04/20 12:00 Mechanical Ventilator 04/04/20 12:00 30 04/04/20 12:00 109 31 173/104 (127) 100 04/04/20 11:55 111 04/04/20 11:30 113 33 151/83 (105) 100 04/04/20 11:00 112 26 161/63 (95) 100 04/04/20 10:45 106 28 171/82 (111) 100 04/04/20 10:40 107 30 30 04/04/20 10:30 106 30 155/72 (99) 100 Intake and Output 04/04/20 04/05/20 19:00 07:00 Intake Total 1992.020 ml 1160 ml Output Total 1215 ml 900 ml Balance 777.020 ml 260 ml Intake Free Water 50 ml 300 ml IV Total 1082.020 ml 200 ml Tube Feeding 660 ml 660 ml Other 200 ml Output Urine Total 1065 ml 900 ml Stool Total 150 ml Laboratory Tests Test 04/05/20 03:50 White Blood Count 13.2 K/UL (4.8-10.8) H Red Blood Count 3.17 M/UL (4.20-5.40) L Hemoglobin 9.0 G/DL (12.0-16.0) L Hematocrit 28.6 % (37.0-47.0) L Mean Corpuscular Volume 90 FL (80-99) Mean Corpuscular Hemoglobin 28.4 PG (27.0-31.0) Mean Corpuscular Hemoglobin Concent 31.5 G/DL (32.0-36.0) L Red Cell Distribution Width 22.3 % (11.6-14.8) H Platelet Count 169 K/UL (150-450) Mean Platelet Volume 6.7 FL (6.5-10.1) Neutrophils (%) (Auto) 84.0 % (45.0-75.0) H Lymphocytes (%) (Auto) 3.7 % (20.0-45.0) L Monocytes (%) (Auto) 9.3 % (1.0-10.0) Eosinophils (%) (Auto) 1.6 % (0.0-3.0) Basophils (%) (Auto) 1.5 % (0.0-2.0) Sodium Level 143 MMOL/L (136-145) Potassium Level 3.5 MMOL/L (3.5-5.1) Chloride Level 112 MMOL/L (98-107) H Carbon Dioxide Level 23 MMOL/L (21-32) Anion Gap 8 mmol/L (5-15) Blood Urea Nitrogen 59 mg/dL (7-18) H Creatinine 1.4 MG/DL (0.55-1.30) H Estimat Glomerular Filtration Rate 45.5 mL/min (>60) Glucose Level 127 MG/DL (74-106) H Calcium Level 8.3 MG/DL (8.5-10.1) L Phosphorus Level 4.1 MG/DL (2.5-4.9) Magnesium Level 2.0 MG/DL (1.8-2.4) Total Bilirubin 0.3 MG/DL (0.2-1.0) Aspartate Amino Transf (AST/SGOT) 23 U/L (15-37) Alanine Aminotransferase (ALT/SGPT) 9 U/L (12-78) L Alkaline Phosphatase 87 U/L (46-116) Total Protein 5.2 G/DL (6.4-8.2) L Albumin 1.4 G/DL (3.4-5.0) L Globulin 3.8 g/dL Albumin/Globulin Ratio 0.4 (1.0-2.7) L Digoxin Level 0.6 NG/ML (0.9-2.0) L Microbiology Date/Time Source Procedure Growth Status 04/03/20 04:55 Blood Blood Culture - Preliminary NO GROWTH AFTER 48 HOURS Resulted 04/03/20 04:50 Blood Blood Culture - Preliminary NO GROWTH AFTER 48 HOURS Resulted 04/03/20 04:00 Sputum Expectorated Gram Stain - Final Resulted 04/03/20 04:00 Sputum Culture - Preliminary Escherichia Coli - Esbl [email or web address] Complx - Mdr Resulted 04/03/20 04:00 Indwelling Cath Urine Culture - Final NO GROWTH AFTER 48 HOURS Complete Objective NECK: No JVD, orally intubated with OG tube. LUNGS: Coarse rhonchi. CARDIOVASCULAR: Regular S1 and S2 with no gallop. ABDOMEN: Soft. EXTREMITIES: No pitting edema. Carlos Dean MD Apr 05, 2020 10:28
--- NOTE | 2020-04-05 10:30 | Pulmonology Progress Note ---
Subjective ROS Limited/Unobtainable: Yes Interval Events: Remains on AC mode; tachycardic, on amio and cardizem Constitutional: Reports: fever HEENT: Repors: no symptoms Respiratory: Reports: no symptoms Cardiovascular: Reports: no symptoms Gastrointestinal/Abdominal: Denies: nausea, vomiting, diarrhea Psychiatric: Denies: depression Skin: Denies: rash Musculoskeletal: Denies: pain Allergies: Coded Allergies: LISINOPRIL (Verified Allergy, Unknown, Hives, 04/12/14) Objective Last 24 Hour Vital Signs Date Time Temp Pulse Resp B/P (MAP) Pulse Ox O2 Delivery O2 Flow Rate FiO2 04/05/20 10:00 129 18 145/79 (101) 100 04/05/20 10:00 98 14 145/79 (101) 100 04/05/20 09:00 96 18 138/57 (84) 100 04/05/20 09:00 96 24 128/52 (77) 100 04/05/20 08:34 95 23 30 04/05/20 08:00 Mechanical Ventilator 04/05/20 08:00 99.7 95 25 129/51 (77) 100 04/05/20 08:00 30 04/05/20 08:00 108 04/05/20 08:00 96 23 150/79 (102) 100 04/05/20 07:10 100 04/05/20 07:10 96 15 30 04/05/20 07:00 94 21 125/51 (75) 100 04/05/20 07:00 95 21 136/57 (83) 100 04/05/20 06:30 92 22 04/05/20 06:00 90 14 130/54 (79) 100 04/05/20 05:31 94 124/54 04/05/20 05:00 97 15 127/59 (81) 100 04/05/20 04:00 30 04/05/20 04:00 Mechanical Ventilator 04/05/20 04:00 99.4 100 10 144/62 (89) 100 04/05/20 04:00 85 04/05/20 03:00 104 19 30 04/05/20 03:00 100 15 124/60 (81) 100 04/05/20 02:00 100 23 133/62 (85) 100 04/05/20 01:00 98.8 95 19 130/54 (79) 100 04/05/20 00:00 103 14 142/58 (86) 100 04/05/20 00:00 Mechanical Ventilator 04/05/20 00:00 90 04/05/20 00:00 30 04/04/20 23:01 104 27 30 04/04/20 23:00 98.3 97 22 143/61 (88) 99 04/04/20 23:00 98 17 134/55 (81) 100 04/04/20 22:00 98.3 97 22 143/61 (88) 99 04/04/20 21:39 90 140/46 04/04/20 21:00 98 17 134/60 (84) 100 04/04/20 20:30 101 18 117/88 (98) 99 04/04/20 20:00 Mechanical Ventilator 04/04/20 20:00 30 04/04/20 20:00 96 21 133/55 (81) 100 04/04/20 20:00 100 04/04/20 19:07 94 20 30 04/04/20 19:00 98.6 98 23 156/62 (93) 100 04/04/20 18:26 97 19 138/54 (82) 100 04/04/20 18:00 90 19 144/55 (84) 100 04/04/20 17:30 95 21 142/58 (86) 100 04/04/20 17:00 89 21 160/66 (97) 100 04/04/20 16:30 94 21 148/54 (85) 98 04/04/20 16:15 92 20 148/60 (89) 99 04/04/20 16:00 30 04/04/20 16:00 Mechanical Ventilator 04/04/20 16:00 95 22 155/64 (94) 100 04/04/20 15:45 91 23 145/61 (89) 100 04/04/20 15:30 97 26 158/71 (100) 97 04/04/20 15:23 95 157/70 04/04/20 15:18 97 04/04/20 15:05 107 26 30 04/04/20 15:00 98.0 99 25 157/73 (101) 98 04/04/20 13:59 97 26 170/75 (106) 100 04/04/20 13:30 99 25 150/83 (105) 100 04/04/20 13:00 101 27 160/75 (103) 100 04/04/20 12:30 107 30 168/88 (114) 100 04/04/20 12:00 99.3 04/04/20 12:00 Mechanical Ventilator 04/04/20 12:00 30 04/04/20 12:00 109 31 173/104 (127) 100 04/04/20 11:55 111 04/04/20 11:30 113 33 151/83 (105) 100 04/04/20 11:00 112 26 161/63 (95) 100 04/04/20 10:45 106 28 171/82 (111) 100 04/04/20 10:40 107 30 30 Intake and Output 04/04/20 04/05/20 19:00 07:00 Intake Total 1992.020 ml 1160 ml Output Total 1215 ml 900 ml Balance 777.020 ml 260 ml Intake Free Water 50 ml 300 ml IV Total 1082.020 ml 200 ml Tube Feeding 660 ml 660 ml Other 200 ml Output Urine Total 1065 ml 900 ml Stool Total 150 ml General Appearance: no acute distress HEENT: normocephalic Respiratory: chest wall non-tender, lungs clear Cardiovascular: normal peripheral pulses, normal rate Abdomen: normal bowel sounds Microbiology Date/Time Source Procedure Growth Status 04/03/20 04:55 Blood Blood Culture - Preliminary NO GROWTH AFTER 48 HOURS Resulted 04/03/20 04:50 Blood Blood Culture - Preliminary NO GROWTH AFTER 48 HOURS Resulted 04/03/20 04:00 Sputum Expectorated Gram Stain - Final Resulted 04/03/20 04:00 Sputum Culture - Preliminary Escherichia Coli - Esbl A.baumanii Complx - Mdr Resulted 04/03/20 04:00 Indwelling Cath Urine Culture - Final NO GROWTH AFTER 48 HOURS Complete Laboratory Tests 04/05/20 03:50: White Blood Count 13.2H, Red Blood Count 3.17L, Hemoglobin 9.0L, Hematocrit 28.6L, Mean Corpuscular Volume 90, Mean Corpuscular Hemoglobin 28.4, Mean Corpuscular Hemoglobin Concent 31.5L, Red Cell Distribution Width 22.3H, Platelet Count 169, Mean Platelet Volume 6.7, Neutrophils (%) (Auto) 84.0H, Lymphocytes (%) (Auto) 3.7L, Monocytes (%) (Auto) 9.3, Eosinophils (%) (Auto) 1.6, Basophils (%) (Auto) 1.5, Sodium Level 143, Potassium Level 3.5, Chloride Level 112H, Carbon Dioxide Level 23, Anion Gap 8, Blood Urea Nitrogen 59H, Creatinine 1.4H, Estimat Glomerular Filtration Rate 45.5, Glucose Level 127H, Calcium Level 8.3L, Phosphorus Level 4.1, Magnesium Level 2.0, Total Bilirubin 0.3, Aspartate Amino Transf (AST/SGOT) 23, Alanine Aminotransferase (ALT/SGPT) 9L, Alkaline Phosphatase 87, Total Protein 5.2L, Albumin 1.4L, Globulin 3.8, Albumin/Globulin Ratio 0.4L, Digoxin Level 0.6L Current Medications Medications (Trade) Dose Ordered Sig/Debbie Route PRN Reason Start Time Stop Time Status Last Admin Dose Admin Acetaminophen (Tylenol) 650 mg Q4H PRN ORAL Temp >100.5 03/26/20 21:15 04/25/20 21:14 04/01/20 05:32 Acetaminophen (Tylenol) 650 mg Q4H PRN ORAL Mild Pain (Pain Scale 1-3) 03/26/20 21:15 04/25/20 21:14 04/04/20 12:38 Al Hydroxide/Mg Hydroxide (Mylanta II) 30 ml Q6H PRN ORAL dyspepsia 03/26/20 21:15 04/25/20 21:14 Amiodarone HCl (Cordarone) 400 mg EVERY 8 HOURS ORAL 04/04/20 15:00 07/03/20 14:59 04/05/20 05:30 Bisacodyl (Dulcolax) 10 mg HSPRN PRN RECTAL Constipation 03/26/20 21:15 06/24/20 21:14 Chlorhexidine Gluconate (Laurie-Hex 2%) 1 applic DAILY@1999 TOPIC 03/28/20 20:00 06/26/20 19:59 04/04/20 20:48 Dextrose (Dextrose 50%) 25 ml Q30M PRN IV Hypoglycemia 03/26/20 21:15 06/24/20 21:14 Dextrose (Dextrose 50%) 50 ml Q30M PRN IV Hypoglycemia 03/26/20 21:15 06/24/20 21:14 Diltiazem HCl (Cardizem) 90 mg EVERY 8 HOURS ORAL 04/04/20 15:00 05/04/20 14:59 04/05/20 05:31 Diphenhydramine HCl (Benadryl) 25 mg Q6H PRN ORAL Itching/Pruritis 03/26/20 21:15 04/25/20 21:14 Docusate Sodium (Colace) 100 mg Q12HR NG 03/30/20 09:00 04/29/20 08:59 04/05/20 09:20 Gabapentin (Neurontin) 300 mg BEDTIME ORAL 03/27/20 21:00 04/26/20 20:59 04/04/20 20:49 Lorazepam (Ativan 2mg/ml 1ml) 1 mg Q4H PRN IV For Anxiety 04/03/20 09:15 04/08/20 13:14 04/04/20 03:16 Magnesium Hydroxide (Mom) 30 ml HSPRN PRN ORAL Constipation 03/26/20 21:15 04/25/20 21:14 Meropenem 1 gm/ Sodium Chloride 100 ml @ 200 mls/hr Q12HR IVPB 04/04/20 21:00 04/09/20 20:59 04/05/20 09:20 Metoclopramide HCl (Reglan) 10 mg Q6H PRN IVP Nausea & Vomiting 03/26/20 21:15 04/25/20 21:14 Micafungin Sodium 100 mg/Sodium Chloride 100 ml @ 100 mls/hr Q24H IVPB 04/04/20 20:00 04/11/20 19:59 04/04/20 20:48 Morphine Sulfate (Morphine Sulfate) 2 mg Q4H PRN IVP Moderate Pain (Pain Scale 4-6) 04/01/20 13:15 04/08/20 13:14 04/04/20 17:06 Morphine Sulfate (Morphine Sulfate) 4 mg Q4H PRN IVP Severe Pain (Pain Scale 7-10) 04/01/20 13:15 04/08/20 13:14 04/05/20 09:21 Ondansetron HCl (Zofran) 4 mg Q6H PRN IVP Nausea & Vomiting 03/26/20 21:15 04/25/20 21:14 Pantoprazole (Protonix) 40 mg DAILY IVP 04/01/20 09:00 05/01/20 08:59 04/05/20 09:20 Polyethylene Glycol (Miralax) 17 gm HSPRN PRN ORAL Constipation 03/26/20 21:15 04/25/20 21:14 Rivaroxaban (Xarelto) 15 mg DAILY NG 03/31/20 09:00 06/29/20 08:59 04/05/20 09:20 Temazepam (Restoril) 15 mg HSPRN PRN ORAL Insomnia 04/01/20 10:15 04/08/20 10:14 Assessment/Plan Assessment/Plan IMPRESSION: 1. Hyperkalemia. Corrected 2. Tachycardia; on drips 3. Sepsis 4. Hypertension. 5. Seizure disorder. 6. Acute renal failure. 7. Respiratory failure DISCUSSION: Continue ICU care Correction of electrolytes Now on 30% FiO2 Back on AC mode till cardiac rhythm stabilizes Mentation poor; Also has thick gabriel-tracheal secretions Abx Seven Yao Omar Syed MD Apr 05, 2020 10:30
[2020-04-05] MEDS ORDERED: Milk of Magnesia 30ml Ud NG PRN (10:45)
[2020-04-05] MEDS ORDERED: Miralax 17gm pkt NG PRN (10:45)
[2020-04-05] MEDS ORDERED: DiphenhydrAMINE 25mg/10ml Elixir NG PRN (10:45)
[2020-04-05] MEDS ORDERED: Acetaminophen 650mg/20.3ml NG PRN ×2 (10:45)
[2020-04-05] MEDS ORDERED: Mylanta II UD 30ml NG PRN (10:45)
--- NOTE | 2020-04-05 10:50 | NUR ---
NURSE NOTES: Dr. Cordova made aware patient has been weaning since 0720 tis morning on setting of CPAP with PS 8, FIO2 of 30% with peep of 5. she is saturating at 99-100% with RR of 10-14 and HR ranging from 93-99. Ordered to have a ABG done and call back with results.
--- NOTE | 2020-04-05 11:35 | NUR ---
NURSE NOTES: DR. CORRALES UPDATED AT THE BEDSIDE OF PATIENT WEANING TRIAL WITH SETTING OF CPAP, PS 8 AND FIO2 OF 30% WITH PEEP OF 5, NO VERBAL ORDERS GIVEN AT THIS TIME.
--- NOTE | 2020-04-05 13:25 | NUR ---
NURSE NOTES: PATIENT EXTUBATED AT 1315 AND PLACED ON COOL AEROSOL AT 5L/MIN AT 28%. SHE IS AWAKE AND ORIENTED TO NAME, PLACE AND SITUATION, SHE IS ATTEMTING TO TALK, HOWEVER SHE IS COUGHING THICK TANNISH SECRETIONS. SHE IS ABLE TO COUGH UP SECRETIONS AND USES THE SUCTION YANKER. SHE IS CURRENTLY SATURATING AT 99-100% WITH NO DISTRESS. PATIENT HAS PAIN, GENERALIZED OVER ENTIRE BODY. MORPHINE 4MG IVP GIVEN TO ALLEVIATE PAIN RATED AT 8/10.
--- NOTE | 2020-04-05 13:34 | Internal Med Progress Note ---
Subjective Date of Service: Apr 05, 2020 Physician Name Cami Mahoney Attending Physician Malathi Mendez MD Current Medications Medications (Trade) Dose Ordered Sig/Debbei Route PRN Reason Start Time Stop Time Status Last Admin Dose Admin Acetaminophen (Tylenol) 650 mg Q4H PRN NG Mild Pain (Pain Scale 1-3) 04/05/20 10:45 04/25/20 21:14 Acetaminophen (Tylenol) 650 mg Q4H PRN NG Temp >100.5 04/05/20 10:45 04/25/20 21:14 Al Hydroxide/Mg Hydroxide (Mylanta II) 30 ml Q6H PRN NG dyspepsia 04/05/20 10:45 04/25/20 21:14 Amiodarone HCl (Cordarone) 400 mg EVERY 8 HOURS NG 04/05/20 14:00 07/03/20 14:59 Bisacodyl (Dulcolax) 10 mg HSPRN PRN RECTAL Constipation 03/26/20 21:15 06/24/20 21:14 Chlorhexidine Gluconate (Laurie-Hex 2%) 1 applic DAILY@1999 TOPIC 03/28/20 20:00 06/26/20 19:59 04/04/20 20:48 Dextrose (Dextrose 50%) 25 ml Q30M PRN IV Hypoglycemia 03/26/20 21:15 06/24/20 21:14 Dextrose (Dextrose 50%) 50 ml Q30M PRN IV Hypoglycemia 03/26/20 21:15 06/24/20 21:14 Diltiazem HCl (Cardizem) 90 mg EVERY 8 HOURS ORAL 04/04/20 15:00 05/04/20 14:59 04/05/20 05:31 Diphenhydramine HCl (Benadryl) 25 mg Q6H PRN NG Itching/Pruritis 04/05/20 10:45 04/25/20 21:14 Docusate Sodium (Colace) 100 mg Q12HR NG 03/30/20 09:00 04/29/20 08:59 04/05/20 09:20 Gabapentin (Neurontin) 300 mg BEDTIME NG 04/05/20 21:00 04/26/20 20:59 Lorazepam (Ativan 2mg/ml 1ml) 1 mg Q4H PRN IV For Anxiety 04/03/20 09:15 04/08/20 13:14 04/04/20 03:16 Magnesium Hydroxide (Mom) 30 ml HSPRN PRN NG Constipation 04/05/20 10:45 04/25/20 21:14 Meropenem 1 gm/ Sodium Chloride 100 ml @ 200 mls/hr Q12HR IVPB 04/04/20 21:00 04/09/20 20:59 04/05/20 09:20 Metoclopramide HCl (Reglan) 10 mg Q6H PRN IVP Nausea & Vomiting 03/26/20 21:15 04/25/20 21:14 Micafungin Sodium 100 mg/Sodium Chloride 100 ml @ 100 mls/hr Q24H IVPB 04/04/20 20:00 04/11/20 19:59 04/04/20 20:48 Morphine Sulfate (Morphine Sulfate) 2 mg Q4H PRN IVP Moderate Pain (Pain Scale 4-6) 04/01/20 13:15 04/08/20 13:14 04/04/20 17:06 Morphine Sulfate (Morphine Sulfate) 4 mg Q4H PRN IVP Severe Pain (Pain Scale 7-10) 04/01/20 13:15 04/08/20 13:14 04/05/20 09:21 Ondansetron HCl (Zofran) 4 mg Q6H PRN IVP Nausea & Vomiting 03/26/20 21:15 04/25/20 21:14 Pantoprazole (Protonix) 40 mg DAILY IVP 04/01/20 09:00 05/01/20 08:59 04/05/20 09:20 Polyethylene Glycol (Miralax) 17 gm HSPRN PRN NG Constipation 04/05/20 10:45 04/25/20 21:14 Polymyxin B Sulfate 810612 units/Dextrose 500 ml @ 500 mls/hr EVERY 12 HOURS IVPB 04/05/20 21:00 04/12/20 20:59 Rivaroxaban (Xarelto) 15 mg DAILY NG 03/31/20 09:00 06/29/20 08:59 04/05/20 09:20 Temazepam (Restoril) 15 mg HSPRN PRN NG Insomnia 04/05/20 10:45 04/08/20 10:14 Allergies: Coded Allergies: LISINOPRIL (Verified Allergy, Unknown, Hives, 04/12/14) Subjective Patient visited at bedside; currently on CPAP w/ vitals maintaining. Ancipitate extubation today. Mentation seems to be improved as patient nodding yes and no. Now off Cardizem and Amoidarone drips; transitioned both options to oral. ESBL in sputum, now on carbapenem and responding much better w/ improved WBC. Appreciate consultants. UO noted. Objective Last Vital Signs Date Time Temp Pulse Resp B/P (MAP) Pulse Ox O2 Delivery O2 Flow Rate FiO2 04/05/20 13:00 104 18 167/63 (97) 100 04/05/20 12:00 98.9 04/05/20 12:00 Mechanical Ventilator 04/05/20 12:00 30 04/03/20 01:05 8.0 Laboratory Tests Test 04/05/20 03:50 04/05/20 11:03 White Blood Count 13.2 K/UL (4.8-10.8) H Red Blood Count 3.17 M/UL (4.20-5.40) L Hemoglobin 9.0 G/DL (12.0-16.0) L Hematocrit 28.6 % (37.0-47.0) L Mean Corpuscular Volume 90 FL (80-99) Mean Corpuscular Hemoglobin 28.4 PG (27.0-31.0) Mean Corpuscular Hemoglobin Concent 31.5 G/DL (32.0-36.0) L Red Cell Distribution Width 22.3 % (11.6-14.8) H Platelet Count 169 K/UL (150-450) Mean Platelet Volume 6.7 FL (6.5-10.1) Neutrophils (%) (Auto) 84.0 % (45.0-75.0) H Lymphocytes (%) (Auto) 3.7 % (20.0-45.0) L Monocytes (%) (Auto) 9.3 % (1.0-10.0) Eosinophils (%) (Auto) 1.6 % (0.0-3.0) Basophils (%) (Auto) 1.5 % (0.0-2.0) Sodium Level 143 MMOL/L (136-145) Potassium Level 3.5 MMOL/L (3.5-5.1) Chloride Level 112 MMOL/L (98-107) H Carbon Dioxide Level 23 MMOL/L (21-32) Anion Gap 8 mmol/L (5-15) Blood Urea Nitrogen 59 mg/dL (7-18) H Creatinine 1.4 MG/DL (0.55-1.30) H Estimat Glomerular Filtration Rate 45.5 mL/min (>60) Glucose Level 127 MG/DL (74-106) H Calcium Level 8.3 MG/DL (8.5-10.1) L Phosphorus Level 4.1 MG/DL (2.5-4.9) Magnesium Level 2.0 MG/DL (1.8-2.4) Total Bilirubin 0.3 MG/DL (0.2-1.0) Aspartate Amino Transf (AST/SGOT) 23 U/L (15-37) Alanine Aminotransferase (ALT/SGPT) 9 U/L (12-78) L Alkaline Phosphatase 87 U/L (46-116) Total Protein 5.2 G/DL (6.4-8.2) L Albumin 1.4 G/DL (3.4-5.0) L Globulin 3.8 g/dL Albumin/Globulin Ratio 0.4 (1.0-2.7) L Digoxin Level 0.6 NG/ML (0.9-2.0) L Arterial Blood pH 7.409 (7.350-7.450) Arterial Blood Partial Pressure CO2 38.6 mmHg (35.0-45.0) Arterial Blood Partial Pressure O2 112.4 mmHg (75.0-100.0) H Arterial Blood HCO3 23.9 mmol/L (22.0-26.0) Arterial Blood Oxygen Saturation 97.5 % (95-100) Arterial Blood Base Excess -0.7 (-2-2) Kelvin Test Positive Microbiology Date/Time Source Procedure Growth Status 04/03/20 04:55 Blood Blood Culture - Preliminary NO GROWTH AFTER 48 HOURS Resulted 04/03/20 04:50 Blood Blood Culture - Preliminary NO GROWTH AFTER 48 HOURS Resulted 04/03/20 04:00 Sputum Expectorated Gram Stain - Final Resulted 04/03/20 04:00 Sputum Culture - Preliminary Escherichia Coli - Esbl A.baumanii Complx - Mdr Resulted 04/03/20 04:00 Indwelling Cath Urine Culture - Final NO GROWTH AFTER 48 HOURS Complete Intake and Output 04/04/20 04/05/20 19:00 07:00 Intake Total 1992.020 ml 1160 ml Output Total 1215 ml 900 ml Balance 777.020 ml 260 ml Intake Free Water 50 ml 300 ml IV Total 1082.020 ml 200 ml Tube Feeding 660 ml 660 ml Other 200 ml Output Urine Total 1065 ml 900 ml Stool Total 150 ml Objective General Appearance: other - Intubated, ET tube in place EENT: PERRL/EOMI Cardiovascular: arrhythmia, irregularly irregular Respiratory/Chest: other - Vented lung sounds, Fi02 35% Abdomen: non tender, soft, Cochrane Bag Edema: mild edema 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 II-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 grossly normal Skin: warm/dry Assessment/Plan Assessment/Plan Assessment #Acute Hypoxic Resp Failure #Afib w/ RVR, now in SR, off heparin gtt and on Xarelto #Acute Renal Failure 2/2 ATN from Rhabo --> BUN and creatinine still very elevated, consider HD if concern of Uremic Encephalopathy; slowly improving #Rhabdo #Sepsis, HCAP/UTI, COVID negative , + ESBL #Seizure vs prolonged period of immobility --> once extubated will investigate cause of Rhabdo and try to discern more info #Hx of Colectomy w/ Colostomy Plan Appreciate Consultants and ICU team Weening Trials Now on Meropenem , S/P Vancomyin, Cefepime, Flagyl Amiodarone PO, Diltiazem PO, s/p drips Patient is on Apixiban Cochrane Bag care IVF per Nephro, may require HD given renal function but output good DVT and GI ppx; Tube Feeds * Will need to follow up why patient had Rhabdo? if Seizure hx could be uncontrolled seizure and then a neuro consult would be needed. Will look into s/ p extubation 04/02: Vent weening; f/u w/ ID recs regarding WBC and ongoing AB 04/03: Unable to wean patient as she has become hemodynamically unstable with elevated heart rate with atrial flutter in the 170s. Currently she is on amiodarone and Cardizem drip and did receive digoxin without good response today. We have recultured her , todd on broad-spectrum antibiotics with vancomycin, cefepime, Flagyl. Appreciate consultants. FiO2 at 35% on AC. Monitor urine output. 04/04: Remains on Cardizem and Amiodarone gtt; Patient unable to ween. Anticipate placing on Carbapenem. 04/05: WBC improving, Now on Carbapenem; anticipate extubation today. Cami Cutler D.O. Apr 05, 2020 13:34
--- NOTE | 2020-04-05 13:44 | Nephrology Progress Note ---
Assessment/Plan Plan #VENTURA due to ATN in the setting of rhabdo- on CKD #hyperkalemia #Rhabdo #UTI sepsis #Lactic acidsis #AMS - toxic metabolic encephalopathy #Hypoxemic resp failure #afib with RVR #HLD #Obesity - monitor UOP - DC IVF - Dilt and amiodarone drip per cardiology - monitor K,bmp - weiss placed - strict I&Os - vent management per Dr. Cordova - cardiology eval - ID consult - vanco and cefepime - flagyl - follow cx - monitor BMP, mag and phos daily - continue TF 30 minutes of critical care time- greater than 50% on care coordination and counseling Subjective ROS Limited/Unobtainable: Yes Subjective Cr slowly downtrending remains intubated BP up febrile on cefepime, vanco and flagyl WBC uptrending Objective Objective Last 24 Hour Vital Signs Date Time Temp Pulse Resp B/P (MAP) Pulse Ox O2 Delivery O2 Flow Rate FiO2 04/05/20 13:26 102 167/63 04/05/20 13:00 104 18 167/63 (97) 100 04/05/20 12:00 98.9 100 12 155/82 (106) 100 04/05/20 12:00 Mechanical Ventilator 04/05/20 12:00 30 04/05/20 11:56 100 16 156/76 (102) 100 04/05/20 11:55 100 04/05/20 11:03 100 13 30 04/05/20 11:00 101 16 162/65 (97) 100 04/05/20 10:00 129 18 145/79 (101) 100 04/05/20 10:00 98 14 145/79 (101) 100 04/05/20 09:00 96 18 138/57 (84) 100 04/05/20 09:00 96 24 128/52 (77) 100 04/05/20 08:34 95 23 30 04/05/20 08:00 Mechanical Ventilator 04/05/20 08:00 99.7 95 25 129/51 (77) 100 04/05/20 08:00 30 04/05/20 08:00 108 04/05/20 08:00 96 23 150/79 (102) 100 04/05/20 07:10 100 04/05/20 07:10 96 15 30 04/05/20 07:00 94 21 125/51 (75) 100 04/05/20 07:00 95 21 136/57 (83) 100 04/05/20 06:30 92 22 04/05/20 06:00 90 14 130/54 (79) 100 04/05/20 05:31 94 124/54 04/05/20 05:00 97 15 127/59 (81) 100 04/05/20 04:00 30 04/05/20 04:00 Mechanical Ventilator 04/05/20 04:00 99.4 100 10 144/62 (89) 100 04/05/20 04:00 85 04/05/20 03:00 104 19 30 04/05/20 03:00 100 15 124/60 (81) 100 04/05/20 02:00 100 23 133/62 (85) 100 04/05/20 01:00 98.8 95 19 130/54 (79) 100 04/05/20 00:00 103 14 142/58 (86) 100 04/05/20 00:00 Mechanical Ventilator 04/05/20 00:00 90 04/05/20 00:00 30 04/04/20 23:01 104 27 30 04/04/20 23:00 98.3 97 22 143/61 (88) 99 04/04/20 23:00 98 17 134/55 (81) 100 04/04/20 22:00 98.3 97 22 143/61 (88) 99 04/04/20 21:39 90 140/46 04/04/20 21:00 98 17 134/60 (84) 100 04/04/20 20:30 101 18 117/88 (98) 99 04/04/20 20:00 Mechanical Ventilator 04/04/20 20:00 30 04/04/20 20:00 96 21 133/55 (81) 100 04/04/20 20:00 100 04/04/20 19:07 94 20 30 04/04/20 19:00 98.6 98 23 156/62 (93) 100 04/04/20 18:26 97 19 138/54 (82) 100 04/04/20 18:00 90 19 144/55 (84) 100 04/04/20 17:30 95 21 142/58 (86) 100 04/04/20 17:00 89 21 160/66 (97) 100 04/04/20 16:30 94 21 148/54 (85) 98 04/04/20 16:15 92 20 148/60 (89) 99 04/04/20 16:00 30 04/04/20 16:00 Mechanical Ventilator 04/04/20 16:00 95 22 155/64 (94) 100 04/04/20 15:45 91 23 145/61 (89) 100 04/04/20 15:30 97 26 158/71 (100) 97 04/04/20 15:23 95 157/70 04/04/20 15:18 97 04/04/20 15:05 107 26 30 04/04/20 15:00 98.0 99 25 157/73 (101) 98 04/04/20 13:59 97 26 170/75 (106) 100 Intake and Output 04/04/20 04/05/20 19:00 07:00 Intake Total 1992.020 ml 1160 ml Output Total 1215 ml 900 ml Balance 777.020 ml 260 ml Intake Free Water 50 ml 300 ml IV Total 1082.020 ml 200 ml Tube Feeding 660 ml 660 ml Other 200 ml Output Urine Total 1065 ml 900 ml Stool Total 150 ml Laboratory Tests 04/05/20 03:50: White Blood Count 13.2H, Red Blood Count 3.17L, Hemoglobin 9.0L, Hematocrit 28.6L, Mean Corpuscular Volume 90, Mean Corpuscular Hemoglobin 28.4, Mean Corpuscular Hemoglobin Concent 31.5L, Red Cell Distribution Width 22.3H, Platelet Count 169, Mean Platelet Volume 6.7, Neutrophils (%) (Auto) 84.0H, Lymphocytes (%) (Auto) 3.7L, Monocytes (%) (Auto) 9.3, Eosinophils (%) (Auto) 1.6, Basophils (%) (Auto) 1.5, Sodium Level 143, Potassium Level 3.5, Chloride Level 112H, Carbon Dioxide Level 23, Anion Gap 8, Blood Urea Nitrogen 59H, Creatinine 1.4H, Estimat Glomerular Filtration Rate 45.5, Glucose Level 127H, Calcium Level 8.3L, Phosphorus Level 4.1, Magnesium Level 2.0, Total Bilirubin 0.3, Aspartate Amino Transf (AST/SGOT) 23, Alanine Aminotransferase (ALT/SGPT) 9L, Alkaline Phosphatase 87, Total Protein 5.2L, Albumin 1.4L, Globulin 3.8, Albumin/Globulin Ratio 0.4L, Digoxin Level 0.6L 04/05/20 11:03: Arterial Blood pH 7.409, Arterial Blood Partial Pressure CO2 38.6, Arterial Blood Partial Pressure O2 112.4H, Arterial Blood HCO3 23.9, Arterial Blood Oxygen Saturation 97.5, Arterial Blood Base Excess -0.7, Kelvin Test Positive Height (Feet): 5 Height (Inches): 6.00 Weight (Pounds): 286 Objective General Appearance: other - intubated Lines, tubes and drains: peripheral HEENT: normocephalic, atraumatic Neck: non-tender, normal alignment, supple Respiratory/Chest: lungs clear Cardiovascular/Chest: normal peripheral pulses, tachycardia, irregularly irregular Abdomen: soft Skin Exam: normal pigmentation Neurologic: disoriented Venkat Montes M.D. Apr 05, 2020 13:44
--- NOTE | 2020-04-05 14:13 | NUR ---
CASE MANAGEMENT:REVIEW SI;SEPSIS. A-FLUTTER. A-FIB W.RVR. AC ENCEPHALOPATHY. RESPIRATORY FAILURE - ORALLY INTUBATED 99.7 129 25 162/65 100% MECH VENT AC 12 TV 500 PEEP 5 FIO2 @ 30% WBC 13.2 BUN 59 CR 1.4 BG 127 ALB 1.4 IS;POLYMYXIN IV Q12 AMIODARONE NGT Q8 MICAFUNGIN IV Q24 MEROPENEM IV Q12 DILTIAZEM NGT Q8 PROTONIX IV QD XARELTO NGT QD ICU STATUS DCP;PATIENT IS FROM [facility];O2 WEANING TRIALS EXTUBATION Addendum: 04/05/20 at 1436 by [place] SERVIN LVN LVN CORRECTION PATIENT IS FROM [facility]
[2020-04-05] MEDS: Amiodarone 200mg tab NG SCH ×2 (14:23→21:27)
--- NOTE | 2020-04-05 14:40 | NUR ---
NURSE NOTES: PATIENT REMAINS ON COOL AEROSOL MASK AT 28% SATURATING AT 99-100%, REMAINS COUGHING THICK TANNISH SECRETIONS AND ABLE TO SPEAK SIMPLE SENTENCES. ORAL CARE PROVIDED AND SUCTIONED THICK SECRETIONS. WILL CONTINUE TO MONITOR
--- NOTE | 2020-04-05 15:24 | Surgery Progress Note ---
Surgery Progress Note Subjective Additional Comments extubated comfortable coughing up well Objective Last 24 Hour Vital Signs Date Time Temp Pulse Resp B/P (MAP) Pulse Ox O2 Delivery O2 Flow Rate FiO2 04/05/20 15:00 90 16 157/58 (91) 99 04/05/20 14:05 94 15 134/57 (82) 100 04/05/20 13:26 102 167/63 04/05/20 13:15 100 Cool Aerosol 5.0 28 04/05/20 13:15 Venturi Mask 5.0 28 04/05/20 13:00 104 18 167/63 (97) 100 04/05/20 12:00 98.9 100 12 155/82 (106) 100 04/05/20 12:00 Mechanical Ventilator 04/05/20 12:00 30 04/05/20 11:56 100 16 156/76 (102) 100 04/05/20 11:55 100 04/05/20 11:03 100 13 30 04/05/20 11:00 101 16 162/65 (97) 100 04/05/20 10:00 129 18 145/79 (101) 100 04/05/20 10:00 98 14 145/79 (101) 100 04/05/20 09:00 96 18 138/57 (84) 100 04/05/20 09:00 96 24 128/52 (77) 100 04/05/20 08:34 95 23 30 04/05/20 08:00 Mechanical Ventilator 04/05/20 08:00 99.7 95 25 129/51 (77) 100 04/05/20 08:00 30 04/05/20 08:00 108 04/05/20 08:00 96 23 150/79 (102) 100 04/05/20 07:10 100 04/05/20 07:10 96 15 30 04/05/20 07:00 94 21 125/51 (75) 100 04/05/20 07:00 95 21 136/57 (83) 100 04/05/20 06:30 92 22 04/05/20 06:00 90 14 130/54 (79) 100 04/05/20 05:31 94 124/54 04/05/20 05:00 97 15 127/59 (81) 100 04/05/20 04:00 30 04/05/20 04:00 Mechanical Ventilator 04/05/20 04:00 99.4 100 10 144/62 (89) 100 04/05/20 04:00 85 04/05/20 03:00 104 19 30 04/05/20 03:00 100 15 124/60 (81) 100 04/05/20 02:00 100 23 133/62 (85) 100 04/05/20 01:00 98.8 95 19 130/54 (79) 100 04/05/20 00:00 103 14 142/58 (86) 100 04/05/20 00:00 Mechanical Ventilator 04/05/20 00:00 90 04/05/20 00:00 30 04/04/20 23:01 104 27 30 04/04/20 23:00 98.3 97 22 143/61 (88) 99 04/04/20 23:00 98 17 134/55 (81) 100 04/04/20 22:00 98.3 97 22 143/61 (88) 99 04/04/20 21:39 90 140/46 04/04/20 21:00 98 17 134/60 (84) 100 04/04/20 20:30 101 18 117/88 (98) 99 04/04/20 20:00 Mechanical Ventilator 04/04/20 20:00 30 04/04/20 20:00 96 21 133/55 (81) 100 04/04/20 20:00 100 04/04/20 19:07 94 20 30 04/04/20 19:00 98.6 98 23 156/62 (93) 100 04/04/20 18:26 97 19 138/54 (82) 100 04/04/20 18:00 90 19 144/55 (84) 100 04/04/20 17:30 95 21 142/58 (86) 100 04/04/20 17:00 89 21 160/66 (97) 100 04/04/20 16:30 94 21 148/54 (85) 98 04/04/20 16:15 92 20 148/60 (89) 99 04/04/20 16:00 30 04/04/20 16:00 Mechanical Ventilator 04/04/20 16:00 95 22 155/64 (94) 100 04/04/20 15:45 91 23 145/61 (89) 100 04/04/20 15:30 97 26 158/71 (100) 97 I&O Intake and Output 04/04/20 04/05/20 19:00 07:00 Intake Total 1992.020 ml 1160 ml Output Total 1215 ml 900 ml Balance 777.020 ml 260 ml Intake Free Water 50 ml 300 ml IV Total 1082.020 ml 200 ml Tube Feeding 660 ml 660 ml Other 200 ml Output Urine Total 1065 ml 900 ml Stool Total 150 ml Dressing: other Wound: other Drains: other Cardiovascular: RSR Respiratory: decreased breath sounds Abdomen: soft, non-tender, present bowel sounds Extremities: no cyanosis Laboratory Tests Test 04/05/20 03:50 04/05/20 11:03 White Blood Count 13.2 K/UL (4.8-10.8) H Red Blood Count 3.17 M/UL (4.20-5.40) L Hemoglobin 9.0 G/DL (12.0-16.0) L Hematocrit 28.6 % (37.0-47.0) L Mean Corpuscular Volume 90 FL (80-99) Mean Corpuscular Hemoglobin 28.4 PG (27.0-31.0) Mean Corpuscular Hemoglobin Concent 31.5 G/DL (32.0-36.0) L Red Cell Distribution Width 22.3 % (11.6-14.8) H Platelet Count 169 K/UL (150-450) Mean Platelet Volume 6.7 FL (6.5-10.1) Neutrophils (%) (Auto) 84.0 % (45.0-75.0) H Lymphocytes (%) (Auto) 3.7 % (20.0-45.0) L Monocytes (%) (Auto) 9.3 % (1.0-10.0) Eosinophils (%) (Auto) 1.6 % (0.0-3.0) Basophils (%) (Auto) 1.5 % (0.0-2.0) Sodium Level 143 MMOL/L (136-145) Potassium Level 3.5 MMOL/L (3.5-5.1) Chloride Level 112 MMOL/L (98-107) H Carbon Dioxide Level 23 MMOL/L (21-32) Anion Gap 8 mmol/L (5-15) Blood Urea Nitrogen 59 mg/dL (7-18) H Creatinine 1.4 MG/DL (0.55-1.30) H Estimat Glomerular Filtration Rate 45.5 mL/min (>60) Glucose Level 127 MG/DL (74-106) H Calcium Level 8.3 MG/DL (8.5-10.1) L Phosphorus Level 4.1 MG/DL (2.5-4.9) Magnesium Level 2.0 MG/DL (1.8-2.4) Total Bilirubin 0.3 MG/DL (0.2-1.0) Aspartate Amino Transf (AST/SGOT) 23 U/L (15-37) Alanine Aminotransferase (ALT/SGPT) 9 U/L (12-78) L Alkaline Phosphatase 87 U/L (46-116) Total Protein 5.2 G/DL (6.4-8.2) L Albumin 1.4 G/DL (3.4-5.0) L Globulin 3.8 g/dL Albumin/Globulin Ratio 0.4 (1.0-2.7) L Digoxin Level 0.6 NG/ML (0.9-2.0) L Arterial Blood pH 7.409 (7.350-7.450) Arterial Blood Partial Pressure CO2 38.6 mmHg (35.0-45.0) Arterial Blood Partial Pressure O2 112.4 mmHg (75.0-100.0) H Arterial Blood HCO3 23.9 mmol/L (22.0-26.0) Arterial Blood Oxygen Saturation 97.5 % (95-100) Arterial Blood Base Excess -0.7 (-2-2) Kelvin Test Positive Plan Problems: (1) Atrial flutter (2) Hypertension (3) Acute encephalopathy (4) VENTURA (acute kidney injury) (5) Acute and chronic respiratory failure with hypoxia (6) Abscess (7) Fistula (8) Sciatica neuralgia (9) Uncontrolled seizures (10) Forgetfulness (11) Sacral decubitus ulcer Assessment & Plan: Patient identified to have a sacral deep tissue injury upon admission Currently intensive care unit on support Care plan initiated (12) Chronic back pain (13) Overdose of opiate or related narcotic (14) Cellulitis of left leg (15) Pericolonic abscess due to diverticulitis (16) Ventral incisional hernia Assessment & Plan: History of colon resection colostomy Ventral incisional hernia reducible No acute invention monitor parastomal hernia stable ostomy viable and functional no acute intervention planned (17) Chronic pain of both knees (18) Dehydration (19) Hyperkalemia (20) Sepsis Assessment & Plan: Patient admitted identified to have sepsis leukocytosis tachycardia abnormal labs lactic acidosis. Chest x-ray reviewed. Imaging noted. Micro noted. Intensive care unit on support appreciate ICU care Nutritional optimization IV fluids IV antibiotics as per infectious disease tube feeds once stable will follow with recommendations thank you for letting participate patient's care Urosepsis on abx extubated improving DAILY ESTIMATED NEEDS: Needs based on Critical care, sepsis 75.8kg adj 20-28 kcals/kg 5251-4714 total kcals 1.25-1.5 g protein/kg 95-152 g total protein 25-30 mL/kg 6952-6226 total fluid mLs NUTRITION DIAGNOSIS: Swallowing difficulty r/t respiratory status as evidenced by pt orally intubated, ICU status. CURRENT TF:NPO ENTERAL NUTRITION RECOMMENDATIONS: VITAL AF 1.2 @55ml/hr x24 hrs to provide 1320ml, 1584 kcal, 99g pro, 1071ml free H2O - As medically able, rec non oral feeds. Start VITAL 1.2 @low rate 15ml/hr x6 hrs, advance as tolerated 10ml/hr q4-6 hrs to goal. - Flush per MD/ HOB over 30 degrees -> IF POTASSIUM REMAINS ELEVATED-> Rec NEPRO w/ goal rate of 40ml/hr for 24 hrs to provide 960ml, 1728 kcal, 78g pro, 698ml free H2O. -> Feed w/ hemodynamic stability. ADDITIONAL RECOMMENDATIONS: 1) Maintain calibrated bed scale wts (248lbs vs 217lbs last adm) 2) F/up w/ WC eval. NPO at this time 3) Monitor lytes, need for renal formula 4) Feed when hemodynamically stable -> trophic feeds w/ low BP to maintain gut integrity Julian Iglesias Apr 05, 2020 15:23
--- NOTE | 2020-04-05 15:25 | NUR ---
NURSE NOTES: TUBE FEEDING RESUMED AT 55 ML/HR AFTER PATIENT REMAINED STABLE AFTER EXTUBATIONS. SHE REMAINS STABLE WITH COOL AEROSOL MASK AT 28% AT 5L/MIN. SATURATING AT 100%.
--- NOTE | 2020-04-05 15:33 | NUR ---
NURSE NOTES:WOUND CARE FOLLOW-UP NOTES:Partially opened Sacral DTPI 12.5cm x (W)15cm. Base of wound is maroon and indurated with an area of slough (L)4.1cm x (W)1.5cmL gluteus that is within base of wound. Non -Blanching erythema with scattered partial thickness shearing noted to R and L posterior upper thighs. Re-absorbed DTPI medial R heel. Dry brown eschar . edges adherent to base of wound. NO erythema/induration or fluctuance periwound. Wound Tx are effective and continued as ordered. All wound prevention protocols continued as care-planned.Pt has an APM/MAREN Mattress overlay and is being positioned with pillows and with heels off-loaded .
--- NOTE | 2020-04-05 18:05 | NUR ---
NURSE NOTES: Patient remains on cool aerosol mask on 28% with 5L/min, her saturations are 99-100% with no distress noted, she remains able to talk clearly with a soft voice and able to make needs known, patient colostomy bag contained soft liquid brown stool, approximately 100ml was emptied, patient is able to cough up thick secretions and clear them, tube feeding remains running at 55ml/hr on vital A.F. 1.2.
--- NOTE | 2020-04-05 19:27 | NUR ---
HAND-OFF: Report given to JOSSELYN Mccollum. Patient remains tolerating extubation and placed on cool aerosol mask at 28%, saturations remains at 99-100% with no distress and able to cough up secretions. tube feeding remains at 55ml/hr running through NG-tube.
--- NOTE | 2020-04-05 19:30 | NUR ---
NURSE NOTES: Received report from Rafat. Pt is resting on the bed and awake ad alert. Patient remains on cool aerosol simple mask on FiO2 28% with 5L/min and SaO2 99-100% noted. Given suction and oral care. On satellite project site monitor with ST and R 110's. On NGT feeding with vital AF @ 55cc/hr and no residual noted. Keep HOB position. Dressing is clean and dry on wound area. Pt has Desai cath and patent and drainage well. Pt has colostomy bag and noted brownish soft BM. Pt has Lt. upper arm PICC line ad dressing is clean and dry. On P-200 mattress for wound management. Turn and reposition. Placed fall and seizure precaution. Will continue to care plan.
[2020-04-05] MEDS: Dyna-Hex 2% Top Sol 2oz TOPIC SCH (19:58)
[2020-04-05] MEDS: Polymyxin B Sulfate 500,000 UNITS in D5W 500ml 500 ML IVPB SCH (21:27)
--- NOTE | 2020-04-05 22:00 | NUR ---
NURSE NOTES: Pt is sleeping on the bed and no sign of acute distress noted. Tolerated well with current NGT feeding. SaO2 99-100% with O2 5L via simple mask with cool aerosol. Changed position. Will continue to care plan.
[2020-04-06] VITALS (26 sets, daily range): BP systolic 109–155; BP diastolic 44–73
--- NOTE | 2020-04-06 | NUR ---
NURSE NOTES: Pt is sleeping on the bed and SaO2 100% with current O2 setting. On laboratory monitor with SR. Changed position. Will continue to monitor any change of condition.
--- NOTE | 2020-04-06 02:00 | NUR ---
NURSE NOTES: Pt is sleeping on the bed and on O2 5L via simple mask and SaO2 100% noted. Turn and reposition. Will continue to monitor any change of condition.
[2020-04-06] MEDS: Morphine Sulfate 4mg/ml Inj (IV USE ONLY) IVP PRN ×4 (03:23→16:52)
--- NOTE | 2020-04-06 04:00 | NUR ---
NURSE NOTES: Morning care was done. Cleaned Pt and applied lotion and cream. On O2 2L via nasal cannula and SaO2 100% noted. Collected blood sample. On computer numerical control grinder with SR. Will continue to monitor any change of condition.
[2020-04-06 04:46] LABS: HEMATOCRIT 24.1 % (37.0-47.0); HEMOGLOBIN 7.2 G/DL (12.0-16.0); MEAN CORPUSCULAR VOLUME 88 FL (80-99); PLATELET COUNT 243 K/UL (150-450); RED BLOOD COUNT 2.74 M/UL (4.20-5.40); RED CELL DISTRIBUTION WIDTH 20.8 % (11.6-14.8); WHITE BLOOD COUNT 10.7 K/UL (4.8-10.8)
[2020-04-06 05:17] LABS: ALANINE AMINOTRANSFERASE 10 U/L (12-78); ALBUMIN 1.4 G/DL (3.4-5.0); ALBUMIN/GLOBULIN RATIO 0.4 (1.0-2.7); ALKALINE PHOSPHATASE 70 U/L (46-116); ANION GAP 6 mmol/L (5-15); ASPARTATE AMINO TRANSFERASE 16 U/L (15-37); BILIRUBIN,TOTAL 0.2 MG/DL (0.2-1.0); BLOOD UREA NITROGEN 49 mg/dL (7-18); CARBON DIOXIDE 27 MMOL/L (21-32); CHLORIDE 113 MMOL/L (98-107); CREATININE 1.3 MG/DL (0.55-1.30); POTASSIUM 3.1 MMOL/L (3.5-5.1); SODIUM 146 MMOL/L (136-145)
[2020-04-06] MEDS: Amiodarone 200mg tab NG SCH ×2 (05:32→21:21)
[2020-04-06] MEDS: dilTIAZem HCl 90mg tab ORAL SCH ×3 (05:32→21:31)
--- NOTE | 2020-04-06 06:00 | NUR ---
NURSE NOTES: Noted Hgb:7.2. Dr. Wray visited and assessed Pt. No new order received. Continue to monitor ay change of condition.
--- NOTE | 2020-04-06 07:14 | NUR ---
HAND-OFF: Report given to JOSSELYN Corona. Pt is resting on the bed and no sign of acute distress noted. SaO2 100% noted with O2 2L via nasal cannula.
--- NOTE | 2020-04-06 07:14 | NUR ---
NURSE NOTES: Received patient from Chun ARCOS. Patient is awake, alert and oriented x4. Sinus Rhythm on the heart monitor, HR 98. Receiving oxygen via nasal cannula at 2L/min, no signs of respiratory distress. Right Nares NGT is intact and receiving Vital AF at 55cc/hr. IV site is left upper arm PICC intact and asymptomatic. Colostomy bag is intact and draining, Desai catheter is intact and draining. Bed is locked, placed in lowest position, side rails up x3, bed alarm on, call light in reach, head of bed elevated.
--- NOTE | 2020-04-06 07:24 | Pulmonology Progress Note ---
Subjective ROS Limited/Unobtainable: Yes Interval Events: Extubated 04/05/20; doing well on 2L/min O2 HEENT: Repors: no symptoms Respiratory: Reports: no symptoms Cardiovascular: Reports: no symptoms Gastrointestinal/Abdominal: Reports: no symptoms; Denies: nausea, vomiting, diarrhea Genitourinary: Reports: no symptoms Psychiatric: Denies: depression Skin: Denies: rash Musculoskeletal: Denies: pain Allergies: Coded Allergies: LISINOPRIL (Verified Allergy, Unknown, Hives, 04/12/14) Objective Last 24 Hour Vital Signs Date Time Temp Pulse Resp B/P (MAP) Pulse Ox O2 Delivery O2 Flow Rate FiO2 04/06/20 07:00 95 18 117/46 (69) 100 04/06/20 06:02 93 20 04/06/20 06:00 96 20 109/46 (67) 100 04/06/20 05:32 96 116/50 04/06/20 05:00 96 15 116/50 (72) 100 04/06/20 04:00 Nasal Cannula 2.0 04/06/20 04:00 99.2 93 12 119/51 (73) 100 04/06/20 04:00 99 04/06/20 04:00 2.0 04/06/20 03:00 95 21 118/48 (71) 100 04/06/20 02:00 92 19 115/50 (71) 99 04/06/20 01:00 91 22 121/50 (73) 100 04/06/20 00:00 87 04/06/20 00:00 Simple Mask 5.0 04/06/20 00:00 5.0 28 04/06/20 00:00 98.4 89 20 129/49 (75) 100 04/05/20 23:00 88 16 123/56 (78) 99 04/05/20 22:00 100 11 145/54 (84) 100 04/05/20 21:27 106 120/64 04/05/20 21:00 140 16 131/61 (84) 100 04/05/20 20:00 5.0 28 04/05/20 20:00 Simple Mask 5.0 04/05/20 20:00 99.0 126 19 108/70 (83) 100 04/05/20 20:00 99 04/05/20 19:00 100 20 134/54 (80) 100 04/05/20 18:58 Cool Aerosol 5.0 28 04/05/20 18:00 99 16 142/55 (84) 100 04/05/20 17:00 100 16 145/73 (97) 100 04/05/20 16:06 95 04/05/20 16:06 98.6 95 14 156/58 (90) 100 04/05/20 16:00 Mechanical Ventilator 04/05/20 16:00 5.0 28 04/05/20 15:00 90 16 157/58 (91) 99 04/05/20 14:05 94 15 134/57 (82) 100 04/05/20 13:26 102 167/63 04/05/20 13:15 100 Cool Aerosol 5.0 28 04/05/20 13:15 Venturi Mask 5.0 28 04/05/20 13:00 104 18 167/63 (97) 100 04/05/20 12:00 98.9 100 12 155/82 (106) 100 04/05/20 12:00 Mechanical Ventilator 04/05/20 12:00 30 04/05/20 11:56 100 16 156/76 (102) 100 04/05/20 11:55 100 04/05/20 11:03 100 13 30 04/05/20 11:00 101 16 162/65 (97) 100 04/05/20 10:00 129 18 145/79 (101) 100 04/05/20 10:00 98 14 145/79 (101) 100 04/05/20 09:00 96 18 138/57 (84) 100 04/05/20 09:00 96 24 128/52 (77) 100 04/05/20 08:34 95 23 30 04/05/20 08:00 Mechanical Ventilator 04/05/20 08:00 99.7 95 25 129/51 (77) 100 04/05/20 08:00 30 04/05/20 08:00 108 04/05/20 08:00 96 23 150/79 (102) 100 Intake and Output 04/05/20 04/06/20 19:00 07:00 Intake Total 740 ml 1410 ml Output Total 1365 ml 905 ml Balance -625 ml 505 ml Intake Free Water 60 ml 50 ml IV Total 100 ml 700 ml Tube Feeding 550 ml 660 ml Other 30 ml Output Urine Total 1265 ml 825 ml Stool Total 100 ml 80 ml General Appearance: no acute distress HEENT: normocephalic Respiratory: chest wall non-tender, lungs clear Cardiovascular: normal peripheral pulses, normal rate Abdomen: normal bowel sounds Laboratory Tests 04/05/20 11:03: Arterial Blood pH 7.409, Arterial Blood Partial Pressure CO2 38.6, Arterial Blood Partial Pressure O2 112.4H, Arterial Blood HCO3 23.9, Arterial Blood Oxygen Saturation 97.5, Arterial Blood Base Excess -0.7, Kelvin Test Positive 04/06/20 04:00: White Blood Count 10.7, Red Blood Count 2.74L, Hemoglobin 7.2L, Hematocrit 24.1L , Mean Corpuscular Volume 88, Mean Corpuscular Hemoglobin 26.3L, Mean Corpuscular Hemoglobin Concent 30.0L, Red Cell Distribution Width 20.8H, Platelet Count 243, Mean Platelet Volume 8.0, Neutrophils (%) (Auto) , Lymphocytes (%) (Auto) , Monocytes (%) (Auto) , Eosinophils (%) (Auto) , Basophils (%) (Auto) , Sodium Level 146H, Potassium Level 3.1L, Chloride Level 113H, Carbon Dioxide Level 27, Anion Gap 6, Blood Urea Nitrogen 49H, Creatinine 1.3, Estimat Glomerular Filtration Rate 49.6, Glucose Level 111H, Calcium Level 8.0L, Phosphorus Level 2.0L, Magnesium Level 1.6L, Total Bilirubin 0.2, Aspartate Amino Transf (AST/SGOT) 16, Alanine Aminotransferase (ALT/SGPT) 10L, Alkaline Phosphatase 70, Total Protein 5.0L, Albumin 1.4L, Globulin 3.6, Albumin /Globulin Ratio 0.4L Current Medications Medications (Trade) Dose Ordered Sig/Debbie Route PRN Reason Start Time Stop Time Status Last Admin Dose Admin Acetaminophen (Tylenol) 650 mg Q4H PRN NG Mild Pain (Pain Scale 1-3) 04/05/20 10:45 04/25/20 21:14 Acetaminophen (Tylenol) 650 mg Q4H PRN NG Temp >100.5 04/05/20 10:45 04/25/20 21:14 Al Hydroxide/Mg Hydroxide (Mylanta II) 30 ml Q6H PRN NG dyspepsia 04/05/20 10:45 04/25/20 21:14 Amiodarone HCl (Cordarone) 400 mg EVERY 8 HOURS NG 04/05/20 14:00 07/03/20 14:59 04/06/20 05:32 Bisacodyl (Dulcolax) 10 mg HSPRN PRN RECTAL Constipation 03/26/20 21:15 06/24/20 21:14 Chlorhexidine Gluconate (Laurie-Hex 2%) 1 applic DAILY@2000 TOPIC 03/28/20 20:00 06/26/20 19:59 04/05/20 19:58 Dextrose (Dextrose 50%) 25 ml Q30M PRN IV Hypoglycemia 03/26/20 21:15 06/24/20 21:14 Dextrose (Dextrose 50%) 50 ml Q30M PRN IV Hypoglycemia 03/26/20 21:15 06/24/20 21:14 Diltiazem HCl (Cardizem) 90 mg EVERY 8 HOURS ORAL 04/04/20 15:00 05/04/20 14:59 04/06/20 05:32 Diphenhydramine HCl (Benadryl) 25 mg Q6H PRN NG Itching/Pruritis 04/05/20 10:45 04/25/20 21:14 Docusate Sodium (Colace) 100 mg Q12HR NG 03/30/20 09:00 04/29/20 08:59 04/05/20 20:44 Gabapentin (Neurontin) 300 mg BEDTIME NG 04/05/20 21:00 04/26/20 20:59 04/05/20 20:44 Lorazepam (Ativan 2mg/ml 1ml) 1 mg Q4H PRN IV For Anxiety 04/03/20 09:15 04/08/20 13:14 04/04/20 03:16 Magnesium Hydroxide (Mom) 30 ml HSPRN PRN NG Constipation 04/05/20 10:45 04/25/20 21:14 Meropenem 1 gm/ Sodium Chloride 100 ml @ 200 mls/hr Q12HR IVPB 04/04/20 21:00 04/09/20 20:59 04/05/20 20:44 Metoclopramide HCl (Reglan) 10 mg Q6H PRN IVP Nausea & Vomiting 03/26/20 21:15 04/25/20 21:14 Micafungin Sodium 100 mg/Sodium Chloride 100 ml @ 100 mls/hr Q24H IVPB 04/04/20 20:00 04/11/20 19:59 04/05/20 19:48 Morphine Sulfate (Morphine Sulfate) 2 mg Q4H PRN IVP Moderate Pain (Pain Scale 4-6) 04/01/20 13:15 04/08/20 13:14 04/04/20 17:06 Morphine Sulfate (Morphine Sulfate) 4 mg Q4H PRN IVP Severe Pain (Pain Scale 7-10) 04/01/20 13:15 04/08/20 13:14 04/06/20 03:23 Ondansetron HCl (Zofran) 4 mg Q6H PRN IVP Nausea & Vomiting 03/26/20 21:15 04/25/20 21:14 Pantoprazole (Protonix) 40 mg DAILY IVP 04/01/20 09:00 05/01/20 08:59 04/05/20 09:20 Polyethylene Glycol (Miralax) 17 gm HSPRN PRN NG Constipation 04/05/20 10:45 04/25/20 21:14 Polymyxin B Sulfate 612608 units/Dextrose 500 ml @ 500 mls/hr EVERY 12 HOURS IVPB 04/05/20 21:00 04/12/20 20:59 04/05/20 21:27 Rivaroxaban (Xarelto) 15 mg DAILY NG 03/31/20 09:00 06/29/20 08:59 04/05/20 09:20 Temazepam (Restoril) 15 mg HSPRN PRN NG Insomnia 04/05/20 10:45 04/08/20 10:14 04/05/20 22:40 Assessment/Plan Assessment/Plan IMPRESSION: 1. Hyperkalemia. Corrected 2. Tachycardia; resolved 3. Sepsis 4. Hypertension. 5. Seizure disorder. 6. Acute renal failure. 7. Respiratory failure; extubated 04/05/20 DISCUSSION: Continue ICU care Correction of electrolytes Now on 2L/min O2 Desai/colostomy care Swallow eval Seven Yao Omar Syed MD Apr 06, 2020 07:24
--- NOTE | 2020-04-06 07:45 | NUR ---
NURSE NOTES: Patient complained of Bilateral Lower Extremity pain, prescribed Morphine 4mg was given. Asked patient if she would like to be repositioned, patient denied and is resting in a comfortable position.
--- NOTE | 2020-04-06 07:50 | NUR ---
RD ASSESSMENT & RECOMMENDATIONS SEE CARE ACTIVITY FOR COMPLETE ASSESSMENT DAILY ESTIMATED NEEDS: Needs based on Pulmonary, sepsis, wound, VENTURA 75.8kg adj 20-30 kcals/kg 9825-0916 total kcals 1.25-1.5 g protein/kg 94-114 g total protein 25-30 mL/kg 7563-5483 total fluid mLs NUTRITION DIAGNOSIS: Swallowing difficulty r/t respiratory status as evidenced by pt orally intubated, on NGT feeds-> now extubated, pending BUMBOATER eval. PO DIET RECOMMENDATIONS-->>> Cardiac diet / texture per BUMBOATER ENTERAL NUTRITION RECOMMENDATIONS: VITAL AF 1.2 @55ml/hr x24 hrs to provide 1320ml, 1584 kcal, 99g pro, 1071ml free H2O - Maintain at goal as tolerated if not cleared for oral diet by BUMBOATER - Flush per MD/ HOB over 30 degree ADDITIONAL RECOMMENDATIONS: 1) Maintain calibrated bed scale wts (248lbs vs 217lbs last adm) 2) Monitor renal fxn and lytes closely, need for renal formula Creat wnl; lytes low (K,phos,mg) 3) Wound healing: ZnSO4 220mg QD x 10 days+ Boris BID via NGT hold vit C until renal fxn improves 4) NISS w/ TF, h/o DM 5) Monitor po intake if cleared for oral diet; need for snacks/supplements
[2020-04-06] MEDS: Pantoprazole Inj IVP SCH (09:19)
[2020-04-06] MEDS: Xarelto 15mg tab NG SCH (09:19)
[2020-04-06] MEDS: Polymyxin B Sulfate 500,000 UNITS in D5W 500ml 500 ML IVPB SCH ×2 (09:19→21:17)
[2020-04-06] MEDS: Docusate 100mg/10ml Liq NG SCH ×2 (09:19→21:21)
--- NOTE | 2020-04-06 09:52 | Consultation ---
History of Present Illness General Chief Complaint: Altered Level of Consciousness Present Illness Allergies: Coded Allergies: LISINOPRIL (Verified Allergy, Unknown, Hives, 04/12/14) Medication History Scheduled Amlodipine Besylate* (Amlodipine Besylate*), 10 MG ORAL DAILY, (Reported) Baclofen* (Baclofen*), 10 MG ORAL NEEDED, (Reported) Doxazosin Mesylate* (Doxazosin Mesylate*), 4 MG ORAL DAILY, (Reported) Duloxetine Hcl* (Cymbalta*), 60 MG ORAL BID, (Reported) Gabapentin* (Gabapentin*), 300 MG ORAL BEDTIME, (Reported) Hydralazine HCl (Hydralazine HCl), 50 MG ORAL Q6HR Metoprolol Tartrate* (Metoprolol Tartrate*), 100 MG ORAL EVERY 12 HOURS, ( Reported) Phosphorus (Phospha 250 Neutral Tablet), 250 MG ORAL THREE TIMES A DAY Simvastatin (Zocor), 40 MG ORAL BEDTIME, (Reported) Trazodone* (Trazodone*), 200 MG ORAL BEDTIME, (Reported) Scheduled PRN Hydrocodone/Acetaminophen (Hydrocodon-Acetaminophn 10-325), 1 TAB ORAL Q6H PRN for For Pain, (Reported) Patient History Healthcare decision maker Resuscitation status Advanced Directive on File Physical Exam Last 24 Hour Vital Signs Date Time Temp Pulse Resp B/P (MAP) Pulse Ox O2 Delivery O2 Flow Rate FiO2 04/06/20 08:00 99.3 89 18 123/47 (72) 100 04/06/20 08:00 Nasal Cannula 2.0 04/06/20 08:00 2.0 04/06/20 07:00 95 18 117/46 (69) 100 04/06/20 06:02 93 20 04/06/20 06:00 96 20 109/46 (67) 100 04/06/20 05:32 96 116/50 04/06/20 05:00 96 15 116/50 (72) 100 04/06/20 04:00 Nasal Cannula 2.0 04/06/20 04:00 99.2 93 12 119/51 (73) 100 04/06/20 04:00 99 04/06/20 04:00 2.0 04/06/20 03:00 95 21 118/48 (71) 100 04/06/20 02:00 92 19 115/50 (71) 99 04/06/20 01:00 91 22 121/50 (73) 100 04/06/20 00:00 87 04/06/20 00:00 Simple Mask 5.0 04/06/20 00:00 5.0 28 04/06/20 00:00 98.4 89 20 129/49 (75) 100 04/05/20 23:00 88 16 123/56 (78) 99 04/05/20 22:00 100 11 145/54 (84) 100 04/05/20 21:27 106 120/64 04/05/20 21:00 140 16 131/61 (84) 100 04/05/20 20:00 5.0 28 04/05/20 20:00 Simple Mask 5.0 04/05/20 20:00 99.0 126 19 108/70 (83) 100 04/05/20 20:00 99 04/05/20 19:00 100 20 134/54 (80) 100 04/05/20 18:58 Cool Aerosol 5.0 28 04/05/20 18:00 99 16 142/55 (84) 100 04/05/20 17:00 100 16 145/73 (97) 100 04/05/20 16:06 95 04/05/20 16:06 98.6 95 14 156/58 (90) 100 04/05/20 16:00 Mechanical Ventilator 04/05/20 16:00 5.0 28 04/05/20 15:00 90 16 157/58 (91) 99 04/05/20 14:05 94 15 134/57 (82) 100 04/05/20 13:26 102 167/63 04/05/20 13:15 100 Cool Aerosol 5.0 28 04/05/20 13:15 Venturi Mask 5.0 28 04/05/20 13:00 104 18 167/63 (97) 100 04/05/20 12:00 98.9 100 12 155/82 (106) 100 04/05/20 12:00 Mechanical Ventilator 04/05/20 12:00 30 04/05/20 11:56 100 16 156/76 (102) 100 04/05/20 11:55 100 04/05/20 11:03 100 13 30 04/05/20 11:00 101 16 162/65 (97) 100 04/05/20 10:00 129 18 145/79 (101) 100 04/05/20 10:00 98 14 145/79 (101) 100 Intake and Output 04/05/20 04/06/20 19:00 07:00 Intake Total 740 ml 1410 ml Output Total 1365 ml 905 ml Balance -625 ml 505 ml Intake Free Water 60 ml 50 ml IV Total 100 ml 700 ml Tube Feeding 550 ml 660 ml Other 30 ml Output Urine Total 1265 ml 825 ml Stool Total 100 ml 80 ml Laboratory Tests Test 04/05/20 11:03 04/06/20 04:00 Arterial Blood pH 7.409 (7.350-7.450) Arterial Blood Partial Pressure CO2 38.6 mmHg (35.0-45.0) Arterial Blood Partial Pressure O2 112.4 mmHg (75.0-100.0) H Arterial Blood HCO3 23.9 mmol/L (22.0-26.0) Arterial Blood Oxygen Saturation 97.5 % (95-100) Arterial Blood Base Excess -0.7 (-2-2) Kelvin Test Positive White Blood Count 10.7 K/UL (4.8-10.8) Red Blood Count 2.74 M/UL (4.20-5.40) L Hemoglobin 7.2 G/DL (12.0-16.0) L Hematocrit 24.1 % (37.0-47.0) L Mean Corpuscular Volume 88 FL (80-99) Mean Corpuscular Hemoglobin 26.3 PG (27.0-31.0) L Mean Corpuscular Hemoglobin Concent 30.0 G/DL (32.0-36.0) L Red Cell Distribution Width 20.8 % (11.6-14.8) H Platelet Count 243 K/UL (150-450) Mean Platelet Volume 8.0 FL (6.5-10.1) Neutrophils (%) (Auto) % (45.0-75.0) Lymphocytes (%) (Auto) % (20.0-45.0) Monocytes (%) (Auto) % (1.0-10.0) Eosinophils (%) (Auto) % (0.0-3.0) Basophils (%) (Auto) % (0.0-2.0) Sodium Level 146 MMOL/L (136-145) H Potassium Level 3.1 MMOL/L (3.5-5.1) L Chloride Level 113 MMOL/L (98-107) H Carbon Dioxide Level 27 MMOL/L (21-32) Anion Gap 6 mmol/L (5-15) Blood Urea Nitrogen 49 mg/dL (7-18) H Creatinine 1.3 MG/DL (0.55-1.30) Estimat Glomerular Filtration Rate 49.6 mL/min (>60) Glucose Level 111 MG/DL (74-106) H Calcium Level 8.0 MG/DL (8.5-10.1) L Phosphorus Level 2.0 MG/DL (2.5-4.9) L Magnesium Level 1.6 MG/DL (1.8-2.4) L Total Bilirubin 0.2 MG/DL (0.2-1.0) Aspartate Amino Transf (AST/SGOT) 16 U/L (15-37) Alanine Aminotransferase (ALT/SGPT) 10 U/L (12-78) L Alkaline Phosphatase 70 U/L (46-116) Total Protein 5.0 G/DL (6.4-8.2) L Albumin 1.4 G/DL (3.4-5.0) L Globulin 3.6 g/dL Albumin/Globulin Ratio 0.4 (1.0-2.7) L Height (Feet): 5 Height (Inches): 6.00 Weight (Pounds): 289 Medications Current Medications Medications (Trade) Dose Ordered Sig/Debbie Route PRN Reason Start Time Stop Time Status Last Admin Dose Admin Acetaminophen (Tylenol) 650 mg Q4H PRN NG Mild Pain (Pain Scale 1-3) 04/05/20 10:45 04/25/20 21:14 Acetaminophen (Tylenol) 650 mg Q4H PRN NG Temp >100.5 04/05/20 10:45 04/25/20 21:14 Al Hydroxide/Mg Hydroxide (Mylanta II) 30 ml Q6H PRN NG dyspepsia 04/05/20 10:45 04/25/20 21:14 Amiodarone HCl (Cordarone) 400 mg EVERY 8 HOURS NG 04/05/20 14:00 07/03/20 14:59 04/06/20 05:32 Bisacodyl (Dulcolax) 10 mg HSPRN PRN RECTAL Constipation 03/26/20 21:15 06/24/20 21:14 Chlorhexidine Gluconate (Laurie-Hex 2%) 1 applic DAILY@2000 TOPIC 03/28/20 20:00 06/26/20 19:59 04/05/20 19:58 Dextrose (Dextrose 50%) 25 ml Q30M PRN IV Hypoglycemia 03/26/20 21:15 06/24/20 21:14 Dextrose (Dextrose 50%) 50 ml Q30M PRN IV Hypoglycemia 03/26/20 21:15 06/24/20 21:14 Diltiazem HCl (Cardizem) 90 mg EVERY 8 HOURS ORAL 04/04/20 15:00 05/04/20 14:59 04/06/20 05:32 Diphenhydramine HCl (Benadryl) 25 mg Q6H PRN NG Itching/Pruritis 04/05/20 10:45 04/25/20 21:14 Docusate Sodium (Colace) 100 mg Q12HR NG 03/30/20 09:00 04/29/20 08:59 04/06/20 09:19 Gabapentin (Neurontin) 300 mg BEDTIME NG 04/05/20 21:00 04/26/20 20:59 04/05/20 20:44 Iron Sucrose 100 mg/Sodium Chloride 60 ml @ 240 mls/hr BEDTIME IV 04/06/20 21:00 04/10/20 21:14 Lorazepam (Ativan 2mg/ml 1ml) 1 mg Q4H PRN IV For Anxiety 04/03/20 09:15 04/08/20 13:14 04/04/20 03:16 Magnesium Hydroxide (Mom) 30 ml HSPRN PRN NG Constipation 04/05/20 10:45 04/25/20 21:14 Meropenem 1 gm/ Sodium Chloride 100 ml @ 200 mls/hr Q12HR IVPB 04/04/20 21:00 04/09/20 20:59 04/06/20 09:19 Metoclopramide HCl (Reglan) 10 mg Q6H PRN IVP Nausea & Vomiting 03/26/20 21:15 04/25/20 21:14 Micafungin Sodium 100 mg/Sodium Chloride 100 ml @ 100 mls/hr Q24H IVPB 6/17/20 20:00 04/11/20 19:59 04/05/20 19:48 Morphine Sulfate (Morphine Sulfate) 2 mg Q4H PRN IVP Moderate Pain (Pain Scale 4-6) 04/01/20 13:15 04/08/20 13:14 04/04/20 17:06 Morphine Sulfate (Morphine Sulfate) 4 mg Q4H PRN IVP Severe Pain (Pain Scale 7-10) 04/01/20 13:15 04/08/20 13:14 04/06/20 07:40 Ondansetron HCl (Zofran) 4 mg Q6H PRN IVP Nausea & Vomiting 03/26/20 21:15 04/25/20 21:14 Pantoprazole (Protonix) 40 mg DAILY IVP 04/01/20 09:00 05/01/20 08:59 04/06/20 09:19 Polyethylene Glycol (Miralax) 17 gm HSPRN PRN NG Constipation 04/05/20 10:45 04/25/20 21:14 Polymyxin B Sulfate 114384 units/Dextrose 500 ml @ 500 mls/hr EVERY 12 HOURS IVPB 04/05/20 21:00 04/12/20 20:59 04/06/20 09:19 Rivaroxaban (Xarelto) 15 mg DAILY NG 03/31/20 09:00 06/29/20 08:59 04/06/20 09:19 Temazepam (Restoril) 15 mg HSPRN PRN NG Insomnia 04/05/20 10:45 04/08/20 10:14 04/05/20 22:40 Assessment/Plan Assessment/Plan: Hematology Consultation SUSAN SARGENT: Fei Mahoney [facility] Coaulopathy and iron deficiency anemia DOS 04/06/2020 ID [id number] old female Patient presents with complaints of worsening symptoms patient herself appears Chronically debilitated I did make contact with the patient's reports that the patient was at a nursing facility for over a month Upon coming home she appeared to be weak patient was also taking new meds and became unrepsonsive And as the patient was difficult to handle Appears to be more confused dehydrated paramedics were summoned There was no reports of vomiting or diarrhea Was intubated, initially started on hep gtt, now on xarelto, h/h low and heme consulted Currently in the icu, off hep gtt, on xarelto, is extubated, with nc Allergies: LISINOPRIL (Verified Allergy, Unknown, Hives, 04/12/14) COVID-19 Screening Contact w/high risk pt: No Recent Travel to affected area: No Experienced COVID-19 symptoms?: No 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 Patient History Limited by: medical condition Past Medical History: see triage record Reviewed Nursing Documentation: PMH: Agreed; PSxH: Agreed Nursing Documentation-PMH Hx Cardiac Problems: Yes Hx Hypertension: Yes Hx Pacemaker: No - CHRONIC NECK PAIN Hx Diabetes: Yes Hx Cancer: No Hx Neurological Problems: Yes Hx Seizures: Yes Review of Systems All Other Systems: limited - Other than the ones mentioned in the history of present illness all others are reviewed however they do stay limited due to the patient's mental status Physical Exam Sp02 EP Interpretation: reviewed, normal General: Patient appears chronically ill Head: normocephalic, atraumatic ++ngt Respiratory: , crackles - both lower lobes Cardiovascular: tachycardia Gastrointestinal: non tender, soft Musculoskeletal: other - Patient appears chronically debilitated both lower extremities are extended Neurologic: other - Some verbal response, but chronic disability Skin: no rash : ++weiss Labs noted Imaging reviewed Assessment and Recs # Anemia of iron deficiency, with a ferritin that is less than 50 recentrly --> Anemia workup has been ordered, rule out gi bleed --> recheck ferritin, occult was + --> No evidence of hemolysis is noted, peripheral smear has been reviewed. --> Hgb goal >7. Transfuse prn. --> IRon IV x 5 days started 04/06 as ferritin is low --> Medications have been reviewed --> low threshold for gi evaluation in case has occult + --> currently is on XARELTO --> as per Terrance, may need to hold if h /h lower --> hgb trend 8.2-->7.2 --> GI eval prn # Hypercoagulable disorder is on xarelto for afib with rvr --> reviewed cards recs --> if any further bleed, consider hold xarelto --> have dw Pcp --> monitor h/h # Leukocytoisis with gram neg pna, uti, sepsis, fevers, leukocytosis, a.flutter , respiratory failure, atx, dony, + ua, atx --> covid is neg --> abx svetlana and micafungin --> as per id recs # Respiratory failure, on vent initially --> now extubated # Renal failure. --> improved # Diabetes. --> endo prn # Hypertension. --> per cards # Diabetes and hypertension, treatment per primary care team. --> a1c goal <8, acchuchecks qac and qhs # Patient with history of altered mental status. --> metabolic encephalopathy # Seizure history. # Chronic neck pain. # Lactic acidsis # HLD # Obesity Appreciate consultation and dw Virgil Ortiz MD Apr 06, 2020 09:52
--- NOTE | 2020-04-06 09:58 | NUR ---
NURSE NOTES: Turned and repositioned patient. Medications given as prescribed, no adverse reaction. Patient rated pain 2/10 after morphine IV was given. Patient is afebrile.
[2020-04-06 10:12] LABS: % IRON SATURATION 18 % (15-50); IRON 17 ug/dL (50-175); TOTAL IRON BINDING CAPACITY 95 ug/dL (250-450)
--- NOTE | 2020-04-06 10:25 | NUR ---
NURSE NOTES: Patient seen and assessed by Dr. Dean, orders received.
[2020-04-06 10:27] LABS: FERRITIN 110 NG/ML (8-388)
--- NOTE | 2020-04-06 10:39 | Cardiac Electrophysiology PN ---
Assessment/Plan Assessment/Plan 1. Atrial flutter with rapid ventricular response of 170s. On Cardizem 90 OG tid and decrease amiodarone to 400 po bid On anticoagulation with Xarelto 15 mg daily. Would benefit from atrial flutter ablation when stable 2. Hypertension. On Cardizem 3. Respiratory failure, still intubated via the T-tube. 4. Acute renal failure, that is improving. 5. Normal left ventricular systolic function based on the echocardiogram on March 26, 2020, with EF of 55%. Subjective Subjective In SR on Po Amiodarone and Cardizem.Intubated in ICU in NAD Objective Last 24 Hour Vital Signs Date Time Temp Pulse Resp B/P (MAP) Pulse Ox O2 Delivery O2 Flow Rate FiO2 04/06/20 10:00 89 15 121/52 (75) 100 04/06/20 09:00 90 13 116/44 (68) 100 04/06/20 08:00 99.3 89 18 123/47 (72) 100 04/06/20 08:00 Nasal Cannula 2.0 04/06/20 08:00 2.0 04/06/20 07:53 90 04/06/20 07:00 95 18 117/46 (69) 100 04/06/20 06:02 93 20 04/06/20 06:00 96 20 109/46 (67) 100 04/06/20 05:32 96 116/50 04/06/20 05:00 96 15 116/50 (72) 100 04/06/20 04:00 Nasal Cannula 2.0 04/06/20 04:00 99.2 93 12 119/51 (73) 100 04/06/20 04:00 99 04/06/20 04:00 2.0 04/06/20 03:00 95 21 118/48 (71) 100 04/06/20 02:00 92 19 115/50 (71) 99 04/06/20 01:00 91 22 121/50 (73) 100 04/06/20 00:00 87 04/06/20 00:00 Simple Mask 5.0 04/06/20 00:00 5.0 28 04/06/20 00:00 98.4 89 20 129/49 (75) 100 04/05/20 23:00 88 16 123/56 (78) 99 04/05/20 22:00 100 11 145/54 (84) 100 04/05/20 21:27 106 120/64 04/05/20 21:00 140 16 131/61 (84) 100 04/05/20 20:00 5.0 28 04/05/20 20:00 Simple Mask 5.0 04/05/20 20:00 99.0 126 19 108/70 (83) 100 04/05/20 20:00 99 04/05/20 19:00 100 20 134/54 (80) 100 04/05/20 18:58 Cool Aerosol 5.0 28 04/05/20 18:00 99 16 142/55 (84) 100 04/05/20 17:00 100 16 145/73 (97) 100 04/05/20 16:06 95 04/05/20 16:06 98.6 95 14 156/58 (90) 100 04/05/20 16:00 Mechanical Ventilator 04/05/20 16:00 5.0 28 04/05/20 15:00 90 16 157/58 (91) 99 04/05/20 14:05 94 15 134/57 (82) 100 04/05/20 13:26 102 167/63 04/05/20 13:15 100 Cool Aerosol 5.0 28 04/05/20 13:15 Venturi Mask 5.0 28 04/05/20 13:00 104 18 167/63 (97) 100 04/05/20 12:00 98.9 100 12 155/82 (106) 100 04/05/20 12:00 Mechanical Ventilator 04/05/20 12:00 30 04/05/20 11:56 100 16 156/76 (102) 100 04/05/20 11:55 100 04/05/20 11:03 100 13 30 04/05/20 11:00 101 16 162/65 (97) 100 Intake and Output 04/05/20 04/06/20 19:00 07:00 Intake Total 740 ml 1410 ml Output Total 1365 ml 905 ml Balance -625 ml 505 ml Intake Free Water 60 ml 50 ml IV Total 100 ml 700 ml Tube Feeding 550 ml 660 ml Other 30 ml Output Urine Total 1265 ml 825 ml Stool Total 100 ml 80 ml Laboratory Tests Test 04/05/20 11:03 04/06/20 04:00 Arterial Blood pH 7.409 (7.350-7.450) Arterial Blood Partial Pressure CO2 38.6 mmHg (35.0-45.0) Arterial Blood Partial Pressure O2 112.4 mmHg (75.0-100.0) H Arterial Blood HCO3 23.9 mmol/L (22.0-26.0) Arterial Blood Oxygen Saturation 97.5 % (95-100) Arterial Blood Base Excess -0.7 (-2-2) Kelvin Test Positive White Blood Count 10.7 K/UL (4.8-10.8) Red Blood Count 2.74 M/UL (4.20-5.40) L Hemoglobin 7.2 G/DL (12.0-16.0) L Hematocrit 24.1 % (37.0-47.0) L Mean Corpuscular Volume 88 FL (80-99) Mean Corpuscular Hemoglobin 26.3 PG (27.0-31.0) L Mean Corpuscular Hemoglobin Concent 30.0 G/DL (32.0-36.0) L Red Cell Distribution Width 20.8 % (11.6-14.8) H Platelet Count 243 K/UL (150-450) Mean Platelet Volume 8.0 FL (6.5-10.1) Neutrophils (%) (Auto) % (45.0-75.0) Lymphocytes (%) (Auto) % (20.0-45.0) Monocytes (%) (Auto) % (1.0-10.0) Eosinophils (%) (Auto) % (0.0-3.0) Basophils (%) (Auto) % (0.0-2.0) Sodium Level 146 MMOL/L (136-145) H Potassium Level 3.1 MMOL/L (3.5-5.1) L Chloride Level 113 MMOL/L (98-107) H Carbon Dioxide Level 27 MMOL/L (21-32) Anion Gap 6 mmol/L (5-15) Blood Urea Nitrogen 49 mg/dL (7-18) H Creatinine 1.3 MG/DL (0.55-1.30) Estimat Glomerular Filtration Rate 49.6 mL/min (>60) Glucose Level 111 MG/DL (74-106) H Calcium Level 8.0 MG/DL (8.5-10.1) L Phosphorus Level 2.0 MG/DL (2.5-4.9) L Magnesium Level 1.6 MG/DL (1.8-2.4) L Iron Level 17 ug/dL (50-175) L Total Iron Binding Capacity 95 ug/dL (250-450) L Percent Iron Saturation 18 % (15-50) Unsaturated Iron Binding 78 ug/dL (112-346) L Ferritin 110 NG/ML (8-388) Total Bilirubin 0.2 MG/DL (0.2-1.0) Aspartate Amino Transf (AST/SGOT) 16 U/L (15-37) Alanine Aminotransferase (ALT/SGPT) 10 U/L (12-78) L Alkaline Phosphatase 70 U/L (46-116) Total Protein 5.0 G/DL (6.4-8.2) L Albumin 1.4 G/DL (3.4-5.0) L Globulin 3.6 g/dL Albumin/Globulin Ratio 0.4 (1.0-2.7) L Objective NECK: No JVD, orally intubated with OG tube. LUNGS: Coarse rhonchi. CARDIOVASCULAR: Regular S1 and S2 with no gallop. ABDOMEN: Soft. EXTREMITIES: No pitting edema. Carlos Dean MD Apr 06, 2020 10:39
--- NOTE | 2020-04-06 10:59 | NUR ---
NURSE NOTES: Magnesium and Potassium levels reported to Dr. Montes. Orders received.
--- NOTE | 2020-04-06 11:15 | NUR ---
NURSE NOTES: Phosphate level reported to Dr. Montes, orders received.
--- NOTE | 2020-04-06 12:52 | Internal Med Progress Note ---
Subjective Date of Service: Apr 06, 2020 Physician Name Cami Mahoney Attending Physician Malathi Mendez MD Current Medications Medications (Trade) Dose Ordered Sig/Debbie Route PRN Reason Start Time Stop Time Status Last Admin Dose Admin Acetaminophen (Tylenol) 650 mg Q4H PRN NG Mild Pain (Pain Scale 1-3) 04/05/20 10:45 04/25/20 21:14 Acetaminophen (Tylenol) 650 mg Q4H PRN NG Temp >100.5 04/05/20 10:45 04/25/20 21:14 Al Hydroxide/Mg Hydroxide (Mylanta II) 30 ml Q6H PRN NG dyspepsia 04/05/20 10:45 04/25/20 21:14 Amiodarone HCl (Cordarone) 400 mg EVERY 12 HOURS NG 04/06/20 21:00 07/05/20 20:59 Bisacodyl (Dulcolax) 10 mg HSPRN PRN RECTAL Constipation 03/26/20 21:15 06/24/20 21:14 Chlorhexidine Gluconate (Laurie-Hex 2%) 1 applic DAILY@2000 TOPIC 03/28/20 20:00 06/26/20 19:59 04/05/20 19:58 Dextrose (Dextrose 50%) 25 ml Q30M PRN IV Hypoglycemia 03/26/20 21:15 06/24/20 21:14 Dextrose (Dextrose 50%) 50 ml Q30M PRN IV Hypoglycemia 03/26/20 21:15 06/24/20 21:14 Diltiazem HCl (Cardizem) 90 mg EVERY 8 HOURS ORAL 04/04/20 15:00 05/04/20 14:59 04/06/20 05:32 Diphenhydramine HCl (Benadryl) 25 mg Q6H PRN NG Itching/Pruritis 04/05/20 10:45 04/25/20 21:14 Docusate Sodium (Colace) 100 mg Q12HR NG 03/30/20 09:00 04/29/20 08:59 04/06/20 09:19 Gabapentin (Neurontin) 300 mg BEDTIME NG 04/05/20 21:00 04/26/20 20:59 04/05/20 20:44 Iron Sucrose 100 mg/Sodium Chloride 60 ml @ 240 mls/hr BEDTIME IV 04/06/20 21:00 04/10/20 21:14 Lorazepam (Ativan 2mg/ml 1ml) 1 mg Q4H PRN IV For Anxiety 04/03/20 09:15 04/08/20 13:14 04/04/20 03:16 Magnesium Hydroxide (Mom) 30 ml HSPRN PRN NG Constipation 04/05/20 10:45 04/25/20 21:14 Magnesium Sulfate 100 ml @ 100 mls/hr Q1H IVPB 04/06/20 11:15 04/06/20 13:14 04/06/20 12:17 Meropenem 1 gm/ Sodium Chloride 100 ml @ 200 mls/hr Q12HR IVPB 04/04/20 21:00 04/09/20 20:59 04/06/20 09:19 Metoclopramide HCl (Reglan) 10 mg Q6H PRN IVP Nausea & Vomiting 03/26/20 21:15 04/25/20 21:14 Micafungin Sodium 100 mg/Sodium Chloride 100 ml @ 100 mls/hr Q24H IVPB 04/04/20 20:00 04/11/20 19:59 04/05/20 19:48 Morphine Sulfate (Morphine Sulfate) 2 mg Q4H PRN IVP Moderate Pain (Pain Scale 4-6) 04/01/20 13:15 04/08/20 13:14 04/04/20 17:06 Morphine Sulfate (Morphine Sulfate) 4 mg Q4H PRN IVP Severe Pain (Pain Scale 7-10) 04/01/20 13:15 04/08/20 13:14 04/06/20 11:41 Ondansetron HCl (Zofran) 4 mg Q6H PRN IVP Nausea & Vomiting 03/26/20 21:15 04/25/20 21:14 Pantoprazole (Protonix) 40 mg DAILY IVP 04/01/20 09:00 05/01/20 08:59 04/06/20 09:19 Polyethylene Glycol (Miralax) 17 gm HSPRN PRN NG Constipation 04/05/20 10:45 04/25/20 21:14 Polymyxin B Sulfate 440445 units/Dextrose 500 ml @ 500 mls/hr EVERY 12 HOURS IVPB 04/05/20 21:00 04/12/20 20:59 04/06/20 09:19 Potassium Phosphate 250 ml @ 83.333 mls/ hr Q3H IVPB 04/06/20 13:00 04/06/20 18:59 Potassium Chloride 100 ml @ 50 mls/hr Q2H IVPB 04/06/20 11:15 04/06/20 15:14 04/06/20 11:14 Rivaroxaban (Xarelto) 15 mg DAILY NG 03/31/20 09:00 06/29/20 08:59 04/06/20 09:19 Temazepam (Restoril) 15 mg HSPRN PRN NG Insomnia 04/05/20 10:45 04/08/20 10:14 04/05/20 22:40 Allergies: Coded Allergies: LISINOPRIL (Verified Allergy, Unknown, Hives, 04/12/14) Subjective Patient visited at bedside; she has been successfully extubated since yesterday and is doing well. Able to have long discussion with her regarding events leading up to hospitalization. She denies experiencing a seizure and states she was not bedbound; however she does live at home w/ her , and states she was moving around with a walker. However, she acknowledges she may not remember this all clearly. She did have one episode of Afib r/ RVR so prefer to monitor in ICU through afternoon in case she requires a drip to manage s/p extubation. HGB low today, will order SOBT. Ok to keep on xarelto for now, started on Iron, and she is on GI ppx. May require GI consult if SOBT positive, will f/u. She has grown very strong MDR in sputum and now is on aggressive MDR agents w/ good response in labs. Overall improving. Objective Last Vital Signs Date Time Temp Pulse Resp B/P (MAP) Pulse Ox O2 Delivery O2 Flow Rate FiO2 04/06/20 12:00 2.0 04/06/20 12:00 Nasal Cannula 04/06/20 12:00 99.4 93 20 128/53 (78) 100 04/06/20 00:00 28 Laboratory Tests Test 04/06/20 04:00 White Blood Count 10.7 K/UL (4.8-10.8) Red Blood Count 2.74 M/UL (4.20-5.40) L Hemoglobin 7.2 G/DL (12.0-16.0) L Hematocrit 24.1 % (37.0-47.0) L Mean Corpuscular Volume 88 FL (80-99) Mean Corpuscular Hemoglobin 26.3 PG (27.0-31.0) L Mean Corpuscular Hemoglobin Concent 30.0 G/DL (32.0-36.0) L Red Cell Distribution Width 20.8 % (11.6-14.8) H Platelet Count 243 K/UL (150-450) Mean Platelet Volume 8.0 FL (6.5-10.1) Neutrophils (%) (Auto) % (45.0-75.0) Lymphocytes (%) (Auto) % (20.0-45.0) Monocytes (%) (Auto) % (1.0-10.0) Eosinophils (%) (Auto) % (0.0-3.0) Basophils (%) (Auto) % (0.0-2.0) Sodium Level 146 MMOL/L (136-145) H Potassium Level 3.1 MMOL/L (3.5-5.1) L Chloride Level 113 MMOL/L (98-107) H Carbon Dioxide Level 27 MMOL/L (21-32) Anion Gap 6 mmol/L (5-15) Blood Urea Nitrogen 49 mg/dL (7-18) H Creatinine 1.3 MG/DL (0.55-1.30) Estimat Glomerular Filtration Rate 49.6 mL/min (>60) Glucose Level 111 MG/DL (74-106) H Calcium Level 8.0 MG/DL (8.5-10.1) L Phosphorus Level 2.0 MG/DL (2.5-4.9) L Magnesium Level 1.6 MG/DL (1.8-2.4) L Iron Level 17 ug/dL (50-175) L Total Iron Binding Capacity 95 ug/dL (250-450) L Percent Iron Saturation 18 % (15-50) Unsaturated Iron Binding 78 ug/dL (112-346) L Ferritin 110 NG/ML (8-388) Total Bilirubin 0.2 MG/DL (0.2-1.0) Aspartate Amino Transf (AST/SGOT) 16 U/L (15-37) Alanine Aminotransferase (ALT/SGPT) 10 U/L (12-78) L Alkaline Phosphatase 70 U/L (46-116) Total Protein 5.0 G/DL (6.4-8.2) L Albumin 1.4 G/DL (3.4-5.0) L Globulin 3.6 g/dL Albumin/Globulin Ratio 0.4 (1.0-2.7) L Intake and Output 04/05/20 04/06/20 19:00 07:00 Intake Total 740 ml 1410 ml Output Total 1365 ml 905 ml Balance -625 ml 505 ml Intake Free Water 60 ml 50 ml IV Total 100 ml 700 ml Tube Feeding 550 ml 660 ml Other 30 ml Output Urine Total 1265 ml 825 ml Stool Total 100 ml 80 ml Objective General Appearance: Extubated,saturating well on NC EENT: PERRL/EOMI Cardiovascular: arrhythmia, irregularly irregular Respiratory/Chest: + Rhonchi Abdomen: non tender, soft, [place] Edema: mild edema Neurologic: flatwork catcher II-XII grossly normal Skin: warm/dry, + pressure ulcers Assessment/Plan Assessment/Plan Assessment #Acute Hypoxic Resp Failure #Afib w/ RVR, now in SR, off heparin gtt and on Xarelto #Acute Renal Failure 2/2 ATN from Rhabo --> BUN and creatinine still very elevated, consider HD if concern of Uremic Encephalopathy; slowly improving #Rhabdo #Sepsis, HCAP/UTI, COVID negative , + ESBL --> Sputum w/ multiple MDR organisms , now requiring aggressive AB #Seizure vs prolonged period of immobility --> once extubated will investigate cause of Rhabdo and try to discern more info #Hx of Colectomy w/ Colostomy #R/O GI Bleed, Anemia , Iron Deficient Plan Appreciate Consultants and ICU team Weening Trials Now Meropenem, Micagungin, Polymoxin, S/P Vancomyin, Cefepime, Flagyl Amiodarone PO, Diltiazem PO, s/p drips Patient is on Apixiban, Continue IV Iron, Pending SOBT [place] Bag care IVF per Nephro, may require HD given renal function but output good DVT and GI ppx; Tube Feeds * Will need to follow up why patient had Rhabdo? if Seizure hx could be uncontrolled seizure and then a neuro consult would be needed. Will look into s/ p extubation 04/02: Vent weening; f/u w/ ID recs regarding WBC and ongoing AB 04/03: Unable to wean patient as she has become hemodynamically unstable with elevated heart rate with atrial flutter in the 170s. Currently she is on amiodarone and Cardizem drip and did receive digoxin without good response today. We have recultured her , todd on broad-spectrum antibiotics with vancomycin, cefepime, Flagyl. Appreciate consultants. FiO2 at 35% on AC. Monitor urine output. 04/04: Remains on Cardizem and Amiodarone gtt; Patient unable to ween. Anticipate placing on Carbapenem. 04/05: WBC improving, Now on Carbapenem; anticipate extubation today. Amio and Cardizem PO 04/06: Continue Meropenem, Micafungin, and Polymoxin. Pending SOBT; continue IV iron. Downgrade if stable later today and ok w/ pulm. Will order swallow Cami Kaplan D.O. Apr 06, 2020 12:52
[2020-04-06] MEDS ORDERED: Potassium Phosphate 20 MM in NS 275 ML IVPB ONE (13:00)
[2020-04-06] MEDS: Potassium Phosphate 15mm/250ml 250 ML IVPB SCH ×2 (13:21→16:42)
--- NOTE | 2020-04-06 14:05 | NUR ---
NURSE NOTES: Speech therapist at bedside with patient.
--- NOTE | 2020-04-06 14:12 | NUR ---
NURSE NOTES: Procedure started by Dr. Nunez via right chest
--- NOTE | 2020-04-06 14:48 | Surgery Progress Note ---
Surgery Progress Note Subjective Symptoms: improved Additional Comments improving plan downgrade h/h noted pending swallow Objective Last 24 Hour Vital Signs Date Time Temp Pulse Resp B/P (MAP) Pulse Ox O2 Delivery O2 Flow Rate FiO2 04/06/20 14:00 94 19 136/52 (80) 100 04/06/20 13:21 93 110/56 04/06/20 13:00 92 24 150/55 (86) 100 04/06/20 12:00 2.0 04/06/20 12:00 Nasal Cannula 2.0 04/06/20 12:00 99.4 93 20 128/53 (78) 100 04/06/20 11:40 96 04/06/20 11:00 95 15 133/52 (79) 100 04/06/20 10:00 89 15 121/52 (75) 100 04/06/20 09:00 90 13 116/44 (68) 100 04/06/20 08:00 99.3 89 18 123/47 (72) 100 04/06/20 08:00 Nasal Cannula 2.0 04/06/20 08:00 2.0 04/06/20 07:53 90 04/06/20 07:00 95 18 117/46 (69) 100 04/06/20 06:02 93 20 04/06/20 06:00 96 20 109/46 (67) 100 04/06/20 05:32 96 116/50 04/06/20 05:00 96 15 116/50 (72) 100 04/06/20 04:00 Nasal Cannula 2.0 04/06/20 04:00 99.2 93 12 119/51 (73) 100 04/06/20 04:00 99 04/06/20 04:00 2.0 04/06/20 03:00 95 21 118/48 (71) 100 04/06/20 02:00 92 19 115/50 (71) 99 04/06/20 01:00 91 22 121/50 (73) 100 04/06/20 00:00 87 04/06/20 00:00 Simple Mask 5.0 04/06/20 00:00 5.0 28 04/06/20 00:00 98.4 89 20 129/49 (75) 100 04/05/20 23:00 88 16 123/56 (78) 99 04/05/20 22:00 100 11 145/54 (84) 100 04/05/20 21:27 106 120/64 04/05/20 21:00 140 16 131/61 (84) 100 04/05/20 20:00 5.0 28 04/05/20 20:00 Simple Mask 5.0 04/05/20 20:00 99.0 126 19 108/70 (83) 100 04/05/20 20:00 99 04/05/20 19:00 100 20 134/54 (80) 100 04/05/20 18:58 Cool Aerosol 5.0 28 04/05/20 18:00 99 16 142/55 (84) 100 04/05/20 17:00 100 16 145/73 (97) 100 04/05/20 16:06 95 04/05/20 16:06 98.6 95 14 156/58 (90) 100 04/05/20 16:00 Mechanical Ventilator 04/05/20 16:00 5.0 28 04/05/20 15:00 90 16 157/58 (91) 99 I&O Intake and Output 04/05/20 04/06/20 19:00 07:00 Intake Total 740 ml 1410 ml Output Total 1365 ml 905 ml Balance -625 ml 505 ml Intake Free Water 60 ml 50 ml IV Total 100 ml 700 ml Tube Feeding 550 ml 660 ml Other 30 ml Output Urine Total 1265 ml 825 ml Stool Total 100 ml 80 ml Dressing: other Wound: other Drains: other Cardiovascular: RSR Respiratory: decreased breath sounds Abdomen: soft, present bowel sounds Extremities: no cyanosis Laboratory Tests Test 04/06/20 04:00 White Blood Count 10.7 K/UL (4.8-10.8) Red Blood Count 2.74 M/UL (4.20-5.40) L Hemoglobin 7.2 G/DL (12.0-16.0) L Hematocrit 24.1 % (37.0-47.0) L Mean Corpuscular Volume 88 FL (80-99) Mean Corpuscular Hemoglobin 26.3 PG (27.0-31.0) L Mean Corpuscular Hemoglobin Concent 30.0 G/DL (32.0-36.0) L Red Cell Distribution Width 20.8 % (11.6-14.8) H Platelet Count 243 K/UL (150-450) Mean Platelet Volume 8.0 FL (6.5-10.1) Neutrophils (%) (Auto) % (45.0-75.0) Lymphocytes (%) (Auto) % (20.0-45.0) Monocytes (%) (Auto) % (1.0-10.0) Eosinophils (%) (Auto) % (0.0-3.0) Basophils (%) (Auto) % (0.0-2.0) Sodium Level 146 MMOL/L (136-145) H Potassium Level 3.1 MMOL/L (3.5-5.1) L Chloride Level 113 MMOL/L (98-107) H Carbon Dioxide Level 27 MMOL/L (21-32) Anion Gap 6 mmol/L (5-15) Blood Urea Nitrogen 49 mg/dL (7-18) H Creatinine 1.3 MG/DL (0.55-1.30) Estimat Glomerular Filtration Rate 49.6 mL/min (>60) Glucose Level 111 MG/DL (74-106) H Calcium Level 8.0 MG/DL (8.5-10.1) L Phosphorus Level 2.0 MG/DL (2.5-4.9) L Magnesium Level 1.6 MG/DL (1.8-2.4) L Iron Level 17 ug/dL (50-175) L Total Iron Binding Capacity 95 ug/dL (250-450) L Percent Iron Saturation 18 % (15-50) Unsaturated Iron Binding 78 ug/dL (112-346) L Ferritin 110 NG/ML (8-388) Total Bilirubin 0.2 MG/DL (0.2-1.0) Aspartate Amino Transf (AST/SGOT) 16 U/L (15-37) Alanine Aminotransferase (ALT/SGPT) 10 U/L (12-78) L Alkaline Phosphatase 70 U/L (46-116) Total Protein 5.0 G/DL (6.4-8.2) L Albumin 1.4 G/DL (3.4-5.0) L Globulin 3.6 g/dL Albumin/Globulin Ratio 0.4 (1.0-2.7) L Plan Problems: (1) Atrial flutter (2) Hypertension (3) Acute encephalopathy (4) VENTURA (acute kidney injury) (5) Acute and chronic respiratory failure with hypoxia (6) Abscess (7) Fistula (8) Sciatica neuralgia (9) Uncontrolled seizures (10) Forgetfulness (11) Sacral decubitus ulcer Assessment & Plan: Patient identified to have a sacral deep tissue injury upon admission Currently intensive care unit on support Care plan initiated (12) Chronic back pain (13) Overdose of opiate or related narcotic (14) Cellulitis of left leg (15) Pericolonic abscess due to diverticulitis (16) Ventral incisional hernia Assessment & Plan: History of colon resection colostomy Ventral incisional hernia reducible No acute invention monitor parastomal hernia stable ostomy viable and functional no acute intervention planned (17) Chronic pain of both knees (18) Dehydration (19) Hyperkalemia (20) Sepsis Assessment & Plan: Patient admitted identified to have sepsis leukocytosis tachycardia abnormal labs lactic acidosis. Chest x-ray reviewed. Imaging noted. Micro noted. Intensive care unit on support appreciate ICU care Nutritional optimization IV fluids IV antibiotics as per infectious disease tube feeds once stable will follow with recommendations thank you for letting participate patient's care Urosepsis on abx extubated improving DAILY ESTIMATED NEEDS: Needs based on Pulmonary, sepsis, wound, VENTURA 75.8kg adj 20-30 kcals/kg [id number] total kcals 1.25-1.5 g protein/kg 94-114 g total protein 25-30 mL/kg 0794-8194 total fluid mLs NUTRITION DIAGNOSIS: Swallowing difficulty r/t respiratory status as evidenced by pt orally intubated, on NGT feeds-> now extubated, pending FIRE ALARM MECHANIC eval. PO DIET RECOMMENDATIONS-->>> Cardiac diet / texture per FIRE ALARM MECHANIC ENTERAL NUTRITION RECOMMENDATIONS: VITAL AF 1.2 @55ml/hr x24 hrs to provide 1320ml, 1584 kcal, 99g pro, 1071ml free H2O - Maintain at goal as tolerated if not cleared for oral diet by FIRE ALARM MECHANIC - Flush per MD/ HOB over 30 degree ADDITIONAL RECOMMENDATIONS: 1) Maintain calibrated bed scale wts (248lbs vs 217lbs last adm) 2) Monitor renal fxn and lytes closely, need for renal formula Creat wnl; lytes low (K,phos,mg) 3) Wound healing: ZnSO4 220mg QD x 10 days+ Boris BID via NGT hold vit C until renal fxn improves 4) NISS w/ TF, h/o DM 5) Monitor po intake if cleared for oral diet; need for snacks/supplements Julian Iglesias Apr 06, 2020 14:48
--- NOTE | 2020-04-06 14:56 | NUR ---
CASE MANAGEMENT:REVIEW SI;SEPSIS. A-FLUTTER. A-FIB W.RVR. AC ENCEPHALOPATHY. 99.4 96 24 150/55 99% 2L NC S/P EXTUBATION 6/18 H/H 7.2/24.1 NA 146 K+ 3.1 BUN 49 IRON 17 TIBC 78 ALB 1.4 IS;POLYMYXIN IV Q12 MICAFUNGIN IV MEROPENEM IV K PHOS IV IRON SUCROSE IV AMIODARONE NGT MAG SULFATE IV PROTONIX IV ZARELTO NGT ICU STATUS DCP;PATIENT IS FROM [facility] PLAN;DOWNGRADE FROM ICU CONTINUE ABX
--- NOTE | 2020-04-06 15:05 | NUR ---
NURSE NOTES: NGT and tube feeding was discontinued, patient is now on Regular Pureed Moist diet. Fed patient at bedside and patient tolerated well. Approximately 25% of the meal consumed.
--- NOTE | 2020-04-06 15:15 | NUR ---
BEDSIDE SWALLOW EVALUATION RECEIVED, CHART REVIEWED, INTERVIEW WITH RN COMPLETED. PATIENT PRESENTS A 69 Y.O. FEMALE WHO WAS ADMITTED FROM HOME WITH DX OF ALOC. PER CHART REVIEW, SHE HAD BEEN IN A SNF FACILITY FOR APPROX ONE MONTH PRIOR TO BEING DISCHARGED HOME. DYSPHAGIA RISK FACTORS INCLUDE: OPIATE OVERDOSE WITH SUBSEQUENT ALOC, COGNITIVE DEFICITS, ACUTE ENCEPHALOPATHY, UNCONTROLLED SEIQURES, HX OF HYPOXIA, CURRENT CXR POSITIVE FOR WORSENING BILATERAL INFILTRATES., GERD PLOF: PATIENT ON REGULAR TEXTURE DIET AT HOME POLST STATUS: FULL CODE INITIAL IMPRESSION: OROPHARYNGEAL PHASE OF SWALLOW PRESENTS GROSSLY INTACT WITH NO OVERT S/S OF ASPIRATION WHEN PRESENTED WITH P.O. TRIALS OF THIN LIQUIDS (CUP SIP AND VIA STRAW), SOFT SOLID AND PUREE. SHE WAS ABLE TO FOLLOW COMMANDS FOR ORAL MOTOR EXAM. dENTITION IS wfl. LINGUAL/LABIAL/STRENGTH/ROM AND COORDINATION PRESENT ESSENTIALLY INTACT. ORAL PHASE OF SWALLOW WFL WITH NO ANTERIOR SPILLAGE OR [id number] FOLLOWING THE SWALLOW BOLUS FORMATION AND MANIPULATION WAS WFL. PHARYNGEAL PHASE WAS PALPATED, HYLOLARYNGEAL EXCURSION APPEARED TO BE TIMELY AND ADEQUATE FOR AIRWAY PROTECTION. NO CHANGES OBSERVED IN VOCAL QUALITY. CLEAR UPPER AIRWAY SOUNDS PRE/POST SWALLOW. MILD COGNITIVE SUSPECTED AND NEEDS FURTHER ASSESSMENT. DISCUSSED FINDINGS/RECOMMENDATIONS WITH RN PATRICK. RECOMMENDATIONS: 1. INITIATE P.O. DIET WITH PUREE/NECTAR THICK LIQUIDS AND ADVANCE TEXTURE TOLERATED 2. MEDS PRESENTED TOLERATED 3. MEALTIME PRECAUTIONS INCLUDING GERD PRECAUTIONS, SITTING UPRIGHT AT 90 DEGREES FOR MEALS, SET UP ASSIST WITH MEALS 4. INSTRUMENTAL SWALLOW EVALUATION SOON CAN BE SCHEDULED 5. COGNITIVE/LINGUISTIC EVAL/TX 6. SKILLED SYSPHAGIA MAODILON AND TX. MEALTIME PROTOCOL POSTED AT BEDSIDE.
--- NOTE | 2020-04-06 16:12 | Infectious Diseases Prog Note ---
Assessment/Plan Assessment/Plan ASSESSMENT AND PLAN: 1. esbl e.coli pna/acinetobacter pna, uti, sepsis, fevers, leukocytosis, a.flutter, respiratory failure, atx, dony, + ua, atx fungemia risk - change to meropenem, polymyxin x 6 days more, micafungin - day # 3 (avoid diflucan which is potentially pro-arrhythmic) - extubated, clinically improved - covid-19 testing negative x 2 - monitor labs and chest x-ray - pulmonary f/u - communicated with Dr. Mahoney - d/w RN in icu 2. Respiratory failure, on vent. 3. Renal failure. 4. Diabetes. 5. Hypertension. 6. Diabetes and hypertension, treatment per primary care team. 7. Patient with history of altered mental status. 8. Seizure history. 9. Chronic neck pain. 10. Acute kidney injury and renal failure. 11. Allergies to lisinopril. 12. Social history is negative. 13. Family history is noncontributory. 14. MAR was noted. 15. Case was discussed with RN. 16. ICU care. 17. Skin care. 18. Continue treatment per primary consultants. Subjective Constitutional: Reports: other - extubated ; Denies: fever, fatigue HEENT: Reports: congestion - less Respiratory: Reports: shortness of breath - less Cardiovascular: Denies: chest pain Gastrointestinal/Abdominal: Denies: nausea, vomiting, diarrhea Genitourinary: Reports: other - + weiss - urine clear Neurologic: Denies: headache Psychiatric: Denies: depression Skin: Denies: rash Hematologic: Denies: bleeding Musculoskeletal: Denies: pain Allergies: Coded Allergies: LISINOPRIL (Verified Allergy, Unknown, Hives, 04/12/14) Objective Vital Signs Last 24 Hour Vital Signs Date Time Temp Pulse Resp B/P (MAP) Pulse Ox O2 Delivery O2 Flow Rate FiO2 04/06/20 15:00 92 19 134/59 (84) 100 04/06/20 14:00 94 19 136/52 (80) 100 04/06/20 13:21 93 110/56 04/06/20 13:00 92 24 150/55 (86) 100 04/06/20 12:00 2.0 04/06/20 12:00 Nasal Cannula 2.0 04/06/20 12:00 99.4 93 20 128/53 (78) 100 6/19/20 11:40 96 04/06/20 11:00 95 15 133/52 (79) 100 04/06/20 10:00 89 15 121/52 (75) 100 04/06/20 09:00 90 13 116/44 (68) 100 04/06/20 08:00 99.3 89 18 123/47 (72) 100 04/06/20 08:00 Nasal Cannula 2.0 04/06/20 08:00 2.0 04/06/20 07:53 90 04/06/20 07:00 95 18 117/46 (69) 100 04/06/20 06:02 93 20 04/06/20 06:00 96 20 109/46 (67) 100 04/06/20 05:32 96 116/50 04/06/20 05:00 96 15 116/50 (72) 100 04/06/20 04:00 Nasal Cannula 2.0 04/06/20 04:00 99.2 93 12 119/51 (73) 100 04/06/20 04:00 99 04/06/20 04:00 2.0 04/06/20 03:00 95 21 118/48 (71) 100 04/06/20 02:00 92 19 115/50 (71) 99 04/06/20 01:00 91 22 121/50 (73) 100 04/06/20 00:00 87 04/06/20 00:00 Simple Mask 5.0 04/06/20 00:00 5.0 28 04/06/20 00:00 98.4 89 20 129/49 (75) 100 04/05/20 23:00 88 16 123/56 (78) 99 04/05/20 22:00 100 11 145/54 (84) 100 04/05/20 21:27 106 120/64 04/05/20 21:00 140 16 131/61 (84) 100 04/05/20 20:00 5.0 28 04/05/20 20:00 Simple Mask 5.0 04/05/20 20:00 99.0 126 19 108/70 (83) 100 04/05/20 20:00 99 04/05/20 19:00 100 20 134/54 (80) 100 04/05/20 18:58 Cool Aerosol 5.0 28 04/05/20 18:00 99 16 142/55 (84) 100 04/05/20 17:00 100 16 145/73 (97) 100 Height (Feet): 5 Height (Inches): 6.00 Weight (Pounds): 289 General Appearance: no acute distress HEENT: normocephalic, atraumatic, anicteric Respiratory/Chest: crackles/rales, rhonchi - bilaterally, other - on vent Cardiovascular: normal rate, regular rhythm, no gallop/murmur, no JVD Abdomen: normal bowel sounds, soft, non tender, no organomegaly, non distended Genitourinary: other - + weiss - urine slt cloudy Extremities: no cyanosis Skin: no rash 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 There is some increased atelectasis at the right lung base. There is minimal left basilar atelectasis as well. The heart size is normal. Impression: Increased right basilar atelectasis. 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 Comparison films: 03/29/2020. FINDINGS: Endotracheal tube, NG tube and left PICC line remain in place. Vascularity is normal. There is worsening of bilateral infiltrates. Cardiac and mediastinal silhouette are within normal limits. CP angles are sharp. The bony thorax appear unremarkable. IMPRESSION: Worsening of bilateral infiltrates. Microbiology Date/Time Source Procedure Growth Status 04/03/20 04:55 Blood Blood Culture - Preliminary NO GROWTH AFTER 72 HOURS Resulted 04/03/20 04:00 Sputum Expectorated Gram Stain - Final Complete 04/03/20 04:00 Sputum Culture - Final Escherichia Coli - Esbl A.baumanii Complx - Mdr Complete 04/03/20 04:00 Indwelling Cath Urine Culture - Final NO GROWTH AFTER 48 HOURS Complete 03/27/20 19:15 Rectum - Final NO CARBAPENEM-RESISTANT ENTEROBACTERI... Complete Laboratory Tests Test 04/06/20 04:00 White Blood Count 10.7 K/UL (4.8-10.8) Red Blood Count 2.74 M/UL (4.20-5.40) L Hemoglobin 7.2 G/DL (12.0-16.0) L Hematocrit 24.1 % (37.0-47.0) L Mean Corpuscular Volume 88 FL (80-99) Mean Corpuscular Hemoglobin 26.3 PG (27.0-31.0) L Mean Corpuscular Hemoglobin Concent 30.0 G/DL (32.0-36.0) L Red Cell Distribution Width 20.8 % (11.6-14.8) H Platelet Count 243 K/UL (150-450) Mean Platelet Volume 8.0 FL (6.5-10.1) Neutrophils (%) (Auto) % (45.0-75.0) Lymphocytes (%) (Auto) % (20.0-45.0) Monocytes (%) (Auto) % (1.0-10.0) Eosinophils (%) (Auto) % (0.0-3.0) Basophils (%) (Auto) % (0.0-2.0) Sodium Level 146 MMOL/L (136-145) H Potassium Level 3.1 MMOL/L (3.5-5.1) L Chloride Level 113 MMOL/L (98-107) H Carbon Dioxide Level 27 MMOL/L (21-32) Anion Gap 6 mmol/L (5-15) Blood Urea Nitrogen 49 mg/dL (7-18) H Creatinine 1.3 MG/DL (0.55-1.30) Estimat Glomerular Filtration Rate 49.6 mL/min (>60) Glucose Level 111 MG/DL (74-106) H Calcium Level 8.0 MG/DL (8.5-10.1) L Phosphorus Level 2.0 MG/DL (2.5-4.9) L Magnesium Level 1.6 MG/DL (1.8-2.4) L Iron Level 17 ug/dL (50-175) L Total Iron Binding Capacity 95 ug/dL (250-450) L Percent Iron Saturation 18 % (15-50) Unsaturated Iron Binding 78 ug/dL (112-346) L Ferritin 110 NG/ML (8-388) Total Bilirubin 0.2 MG/DL (0.2-1.0) Aspartate Amino Transf (AST/SGOT) 16 U/L (15-37) Alanine Aminotransferase (ALT/SGPT) 10 U/L (12-78) L Alkaline Phosphatase 70 U/L (46-116) Total Protein 5.0 G/DL (6.4-8.2) L Albumin 1.4 G/DL (3.4-5.0) L Globulin 3.6 g/dL Albumin/Globulin Ratio 0.4 (1.0-2.7) L Current Medications Medications (Trade) Dose Ordered Sig/Debbie Route PRN Reason Start Time Stop Time Status Last Admin Dose Admin Acetaminophen (Tylenol) 650 mg Q4H PRN NG Mild Pain (Pain Scale 1-3) 04/05/20 10:45 04/25/20 21:14 Acetaminophen (Tylenol) 650 mg Q4H PRN NG Temp >100.5 04/05/20 10:45 04/25/20 21:14 Al Hydroxide/Mg Hydroxide (Mylanta II) 30 ml Q6H PRN NG dyspepsia 04/05/20 10:45 04/25/20 21:14 Amiodarone HCl (Cordarone) 400 mg EVERY 12 HOURS NG 04/06/20 21:00 07/05/20 20:59 Bisacodyl (Dulcolax) 10 mg HSPRN PRN RECTAL Constipation 03/26/20 21:15 06/24/20 21:14 Chlorhexidine Gluconate (Laurie-Hex 2%) 1 applic DAILY@1999 TOPIC 03/28/20 20:00 06/26/20 19:59 04/05/20 19:58 Dextrose (Dextrose 50%) 25 ml Q30M PRN IV Hypoglycemia 03/26/20 21:15 06/24/20 21:14 Dextrose (Dextrose 50%) 50 ml Q30M PRN IV Hypoglycemia 03/26/20 21:15 06/24/20 21:14 Diltiazem HCl (Cardizem) 90 mg EVERY 8 HOURS ORAL 04/04/20 15:00 05/04/20 14:59 04/06/20 13:21 Diphenhydramine HCl (Benadryl) 25 mg Q6H PRN NG Itching/Pruritis 04/05/20 10:45 04/25/20 21:14 Docusate Sodium (Colace) 100 mg Q12HR NG 03/30/20 09:00 04/29/20 08:59 04/06/20 09:19 Gabapentin (Neurontin) 300 mg BEDTIME NG 04/05/20 21:00 04/26/20 20:59 04/05/20 20:44 Iron Sucrose 100 mg/Sodium Chloride 60 ml @ 240 mls/hr BEDTIME IV 04/06/20 21:00 04/10/20 21:14 Lorazepam (Ativan 2mg/ml 1ml) 1 mg Q4H PRN IV For Anxiety 04/03/20 09:15 04/08/20 13:14 04/04/20 03:16 Magnesium Hydroxide (Mom) 30 ml HSPRN PRN NG Constipation 04/05/20 10:45 04/25/20 21:14 Meropenem 1 gm/ Sodium Chloride 100 ml @ 200 mls/hr Q12HR IVPB 04/04/20 21:00 04/09/20 20:59 04/06/20 09:19 Metoclopramide HCl (Reglan) 10 mg Q6H PRN IVP Nausea & Vomiting 03/26/20 21:15 04/25/20 21:14 Micafungin Sodium 100 mg/Sodium Chloride 100 ml @ 100 mls/hr Q24H IVPB 04/04/20 20:00 04/11/20 19:59 04/05/20 19:48 Morphine Sulfate (Morphine Sulfate) 2 mg Q4H PRN IVP Moderate Pain (Pain Scale 4-6) 04/01/20 13:15 04/08/20 13:14 04/04/20 17:06 Morphine Sulfate (Morphine Sulfate) 4 mg Q4H PRN IVP Severe Pain (Pain Scale 7-10) 04/01/20 13:15 04/08/20 13:14 04/06/20 11:41 Ondansetron HCl (Zofran) 4 mg Q6H PRN IVP Nausea & Vomiting 03/26/20 21:15 04/25/20 21:14 Pantoprazole (Protonix) 40 mg DAILY IVP 04/01/20 09:00 05/01/20 08:59 04/06/20 09:19 Polyethylene Glycol (Miralax) 17 gm HSPRN PRN NG Constipation 04/05/20 10:45 04/25/20 21:14 Polymyxin B Sulfate 893083 units/Dextrose 500 ml @ 500 mls/hr EVERY 12 HOURS IVPB 04/05/20 21:00 04/12/20 20:59 04/06/20 09:19 Potassium Phosphate 250 ml @ 83.333 mls/ hr Q3H IVPB 04/06/20 13:00 04/06/20 18:59 04/06/20 13:21 Rivaroxaban (Xarelto) 15 mg DAILY NG 03/31/20 09:00 06/29/20 08:59 04/06/20 09:19 Temazepam (Restoril) 15 mg HSPRN PRN NG Insomnia 04/05/20 10:45 04/08/20 10:14 04/05/20 22:40 Jose Valdes MD Apr 06, 2020 16:12
[2020-04-06] MEDS ORDERED: Tubing IV Secondary IV ONE (16:56)
--- NOTE | 2020-04-06 17:33 | NUR ---
NURSE NOTES: Bed bath given to patient, wound dressings changed, patient tolerated well, no signs of acute distress. Colostomy bag changed.
--- NOTE | 2020-04-06 18:37 | Nephrology Progress Note ---
Assessment/Plan Plan #VENTURA due to ATN in the setting of rhabdo- on CKD #hyperkalemia #Rhabdo #UTI sepsis #Lactic acidsis #AMS - toxic metabolic encephalopathy #Hypoxemic resp failure #afib with RVR #HLD #Obesity - monitor UOP - replete lytes - monitor K,bmp - weiss placed - strict I&Os - vent management per Dr. Cordova - cardiology eval - ID consult - vanco and cefepime - flagyl - follow cx - monitor BMP, mag and phos daily - continue TF 30 minutes of critical care time- greater than 50% on care coordination and counseling Subjective ROS Limited/Unobtainable: Yes Subjective Cr slowly downtrending extubated to NC lethargic Objective Objective Last 24 Hour Vital Signs Date Time Temp Pulse Resp B/P (MAP) Pulse Ox O2 Delivery O2 Flow Rate FiO2 04/06/20 17:00 86 10 126/54 (78) 85 04/06/20 16:01 97 04/06/20 16:00 Nasal Cannula 2.0 04/06/20 16:00 97 16 132/56 (81) 95 04/06/20 16:00 2.0 04/06/20 15:00 92 19 134/59 (84) 100 04/06/20 14:00 94 19 136/52 (80) 100 04/06/20 13:21 93 110/56 04/06/20 13:00 92 24 150/55 (86) 100 04/06/20 12:00 2.0 04/06/20 12:00 Nasal Cannula 2.0 04/06/20 12:00 99.4 93 20 128/53 (78) 100 04/06/20 11:40 96 04/06/20 11:00 95 15 133/52 (79) 100 04/06/20 10:00 89 15 121/52 (75) 100 04/06/20 09:00 90 13 116/44 (68) 100 04/06/20 08:00 99.3 89 18 123/47 (72) 100 04/06/20 08:00 Nasal Cannula 2.0 04/06/20 08:00 2.0 04/06/20 07:53 90 04/06/20 07:00 95 18 117/46 (69) 100 04/06/20 06:02 93 20 04/06/20 06:00 96 20 109/46 (67) 100 04/06/20 05:32 96 116/50 04/06/20 05:00 96 15 116/50 (72) 100 04/06/20 04:00 Nasal Cannula 2.0 04/06/20 04:00 99.2 93 12 119/51 (73) 100 04/06/20 04:00 99 04/06/20 04:00 2.0 04/06/20 03:00 95 21 118/48 (71) 100 04/06/20 02:00 92 19 115/50 (71) 99 04/06/20 01:00 91 22 121/50 (73) 100 04/06/20 00:00 87 04/06/20 00:00 Simple Mask 5.0 04/06/20 00:00 5.0 28 04/06/20 00:00 98.4 89 20 129/49 (75) 100 04/05/20 23:00 88 16 123/56 (78) 99 04/05/20 22:00 100 11 145/54 (84) 100 04/05/20 21:27 106 120/64 04/05/20 21:00 140 16 131/61 (84) 100 04/05/20 20:00 5.0 28 04/05/20 20:00 Simple Mask 5.0 04/05/20 20:00 99.0 126 19 108/70 (83) 100 04/05/20 20:00 99 04/05/20 19:00 100 20 134/54 (80) 100 04/05/20 18:58 Cool Aerosol 5.0 28 Intake and Output 04/05/20 04/06/20 19:00 07:00 Intake Total 740 ml 1410 ml Output Total 1365 ml 905 ml Balance -625 ml 505 ml Intake Free Water 60 ml 50 ml IV Total 100 ml 700 ml Tube Feeding 550 ml 660 ml Other 30 ml Output Urine Total 1265 ml 825 ml Stool Total 100 ml 80 ml Laboratory Tests 04/06/20 04:00: White Blood Count 10.7, Red Blood Count 2.74L, Hemoglobin 7.2L, Hematocrit 24.1L , Mean Corpuscular Volume 88, Mean Corpuscular Hemoglobin 26.3L, Mean Corpuscular Hemoglobin Concent 30.0L, Red Cell Distribution Width 20.8H, Platelet Count 243, Mean Platelet Volume 8.0, Neutrophils (%) (Auto) , Lymphocytes (%) (Auto) , Monocytes (%) (Auto) , Eosinophils (%) (Auto) , Basophils (%) (Auto) , Sodium Level 146H, Potassium Level 3.1L, Chloride Level 113H, Carbon Dioxide Level 27, Anion Gap 6, Blood Urea Nitrogen 49H, Creatinine 1.3, Estimat Glomerular Filtration Rate 49.6, Glucose Level 111H, Calcium Level 8.0L, Phosphorus Level 2.0L, Magnesium Level 1.6L, Iron Level 17L, Total Iron Binding Capacity 95L, Percent Iron Saturation 18, Unsaturated Iron Binding 78L, Ferritin 110, Total Bilirubin 0.2, Aspartate Amino Transf (AST/SGOT) 16, Alanine Aminotransferase (ALT/SGPT) 10L, Alkaline Phosphatase 70, Total Protein 5.0L, Albumin 1.4L, Globulin 3.6, Albumin/Globulin Ratio 0.4L Height (Feet): 5 Height (Inches): 6.00 Weight (Pounds): 289 Objective General Appearance: other - intubated Lines, tubes and drains: peripheral HEENT: normocephalic, atraumatic Neck: non-tender, normal alignment, supple Respiratory/Chest: lungs clear Cardiovascular/Chest: normal peripheral pulses, tachycardia, irregularly irregular Abdomen: soft Skin Exam: normal pigmentation Neurologic: disoriented Venkat Montes M.D. Apr 06, 2020 18:37
--- NOTE | 2020-04-06 18:41 | NUR ---
NURSE NOTES: Fed patient dinner by bedside, no distress noted, able to tolerate feeding well.
--- NOTE | 2020-04-06 19:19 | NUR ---
HAND-OFF: Report given to Tino ARCOS.
--- NOTE | 2020-04-06 19:30 | NUR ---
NURSE NOTES: Received pt awake AO x3, watching tv at this time, left arm 3-4+ swollen >Rt arm lower extremities 2-3+ SR on the monitor, bp stable. Afebile. On 02 at 2L/nc 02 sat >95%, Colostomy to drain with lg amt of brownish stool emptied 150ml, pt has pressure sores, pls see pictures , all are covered with optifoam. pt on p2 00 mattress. Will continue to monitor.
[2020-04-06] MEDS: Dyna-Hex 2% Top Sol 2oz TOPIC SCH (20:10)
[2020-04-06] MEDS: Iron Sucrose 100 MG in NS 55 ML IV SCH (21:17)
[2020-04-06] MEDS: Morphine Sulfate 2mg/ml Inj(IV/IM USE ONLY) IVP PRN (21:32)
--- NOTE | 2020-04-06 21:32 | NUR ---
NURSE NOTES: Morphine 2mg ivp was given due to generalized arthritic pain scale of 6
[2020-04-06] MEDS: LORazepam Inj 2mg/ml 1ml IV PRN (23:05)
--- NOTE | 2020-04-06 23:05 | NUR ---
NURSE NOTES: Ativan 1 mg ivp was given due to pts anxiety
[2020-04-07] VITALS (25 sets, daily range): BP systolic 101–175; BP diastolic 47–94
--- NOTE | 2020-04-07 | NUR ---
NURSE NOTES: Instructed to self suctioned herself with emberkuer suction, Return demonstration was done.
[2020-04-07] MEDS: Morphine Sulfate 2mg/ml Inj(IV/IM USE ONLY) IVP PRN ×2 (01:39→05:40)
--- NOTE | 2020-04-07 01:39 | NUR ---
NURSE NOTES: Pt complained of generalized discomfort due to her arthritis bilateral knee radiating to her other joints scale of 7- Morphine 2mg ivp was given.
[2020-04-07] MEDS: LORazepam Inj 2mg/ml 1ml IV PRN (04:45)
--- NOTE | 2020-04-07 04:45 | NUR ---
NURSE NOTES: Ativan 1mg ivp was given due to pts anxiety
--- NOTE | 2020-04-07 05:30 | NUR ---
NURSE NOTES: Complete bed bath with bed changed was done.
[2020-04-07] MEDS: dilTIAZem HCl 90mg tab ORAL SCH (05:39)
[2020-04-07 05:58] LABS: RED CELL DISTRIBUTION WIDTH 19.4 % (11.6-14.8)
[2020-04-07 06:06] LABS: BASOPHILS % (AUTO) 0.6 % (0.0-2.0); EOSINOPHILS % (AUTO) 1.5 % (0.0-3.0); HEMATOCRIT 24.1 % (37.0-47.0); LYMPHOCYTES % (AUTO) 12.1 % (20.0-45.0); MEAN CORPUSCULAR VOLUME 87 FL (80-99); MONOCYTES % (AUTO) 8.1 % (1.0-10.0); NEUTROPHILS % (AUTO) 77.7 % (45.0-75.0); PLATELET COUNT 246 K/UL (150-450); RED BLOOD COUNT 2.76 M/UL (4.20-5.40); WHITE BLOOD COUNT 9.2 K/UL (4.8-10.8)
[2020-04-07 06:08] LABS: ALBUMIN 1.4 G/DL (3.4-5.0); ALKALINE PHOSPHATASE 68 U/L (46-116); ASPARTATE AMINO TRANSFERASE 10 U/L (15-37); BILIRUBIN,DIRECT 0.1 MG/DL (0.0-0.3); BILIRUBIN,TOTAL 0.2 MG/DL (0.2-1.0)
[2020-04-07 06:09] LABS: PHOSPHORUS 2.7 MG/DL (2.5-4.9)
[2020-04-07 06:22] LABS: ALANINE AMINOTRANSFERASE 8 U/L (12-78); ALBUMIN 1.4 G/DL (3.4-5.0); ALBUMIN/GLOBULIN RATIO 0.4 (1.0-2.7); ALKALINE PHOSPHATASE 72 U/L (46-116); ANION GAP 6 mmol/L (5-15); ASPARTATE AMINO TRANSFERASE 18 U/L (15-37); BILIRUBIN,TOTAL 0.2 MG/DL (0.2-1.0); BLOOD UREA NITROGEN 37 mg/dL (7-18); CARBON DIOXIDE 26 MMOL/L (21-32); CHLORIDE 112 MMOL/L (98-107); CREATININE 1.2 MG/DL (0.55-1.30); POTASSIUM 3.9 MMOL/L (3.5-5.1); SODIUM 144 MMOL/L (136-145)
[2020-04-07 06:30] LABS: ALANINE AMINOTRANSFERASE 8 U/L (12-78)
--- NOTE | 2020-04-07 07:08 | NUR ---
HAND-OFF: Report given to Cj RN for continuity of care.
--- NOTE | 2020-04-07 07:10 | NUR ---
NURSE NOTES: Received patient from Radha ARCOS. Patient is asleep, easily awoken to name, alert and oriented x4. Sinus Rhythm on the heart monitor, HR 90. Receiving oxygen via nasal cannula at 2L/min, no signs of respiratory distress. IV site is left upper arm PICC intact and asymptomatic. Colostomy bag is intact and draining, Desai catheter is intact and draining. Bed is locked, placed in lowest position, side rails up x3, bed alarm on, call light in reach, head of bed elevated.
[2020-04-07] MEDS: Xarelto 15mg tab NG SCH (09:00)
--- NOTE | 2020-04-07 09:13 | NUR ---
RADIOLOGY NOTE: PORTABLE CHEST X-RAY COMPLETED AT 0744 HRS. FA
[2020-04-07] MEDS: Pantoprazole Inj IVP SCH (09:18)
[2020-04-07] MEDS: Polymyxin B Sulfate 500,000 UNITS in D5W 500ml 500 ML IVPB SCH ×2 (09:18→22:39)
[2020-04-07] MEDS: Docusate 100mg/10ml Liq NG SCH ×2 (09:18→22:41)
[2020-04-07] MEDS: Amiodarone 200mg tab NG SCH ×2 (09:19→22:41)
[2020-04-07] MEDS ORDERED: Sterile Water Irrig 1000ml IRRIG ONE ×3 (09:35→09:49)
--- NOTE | 2020-04-07 09:43 | Diagnostic Imaging Report ---
EXAM: XR Chest, 1 View CLINICAL HISTORY: ABN CHST TECHNIQUE: Frontal view of the chest. COMPARISON: 04/03/20 FINDINGS: Lungs: Since the prior study, there is been interval worsening of left perihilar and left lower lobe infiltrates. There unchanged right perihilar and right upper lobe infiltrates. Pleural space: There is an unchanged small left pleural effusion. No pneumothorax. Heart: Unremarkable. No cardiomegaly. Mediastinum: Unremarkable. Bones/joints: Unremarkable. Tubes, lines and devices: There is been removal of an endotracheal tube. There is a left-sided PICC line in unchanged position. IMPRESSION: Worsening left lung infiltrates with unchanged right lung infiltrates.
[2020-04-07] MEDS ORDERED: NS 275ml ONE ×2 (09:48→09:49)
[2020-04-07] MEDS ORDERED: Tubing IV Secondary IV ONE (09:49)
[2020-04-07] MEDS: Morphine Sulfate 4mg/ml Inj (IV USE ONLY) IVP PRN ×4 (09:54→22:41)
--- NOTE | 2020-04-07 09:55 | Cardiology Progress Note ---
Assessment/Plan Status: stable Assessment/Plan Assessment/Plan Problem List: (1) Atrial flutter ICD Codes: I48.92 - Unspecified atrial flutter SNOMED: 8349097 (2) Hypertension ICD Codes: I10 - Essential (primary) hypertension SNOMED: 23047065 (3) Hyperkalemia ICD Codes: E87.5 - Hyperkalemia SNOMED: 95717527 (4) Acute encephalopathy ICD Codes: G93.40 - Encephalopathy, unspecified SNOMED: 6780665 (5) Acute and chronic respiratory failure with hypoxia ICD Codes: J96.21 - Acute and chronic respiratory failure with hypoxia SNOMED: 95011269, 019174968 (6) VENTURA (acute kidney injury) ICD Codes: N17.9 - Acute kidney failure, unspecified SNOMED: 4541400, 11222968 Status: deteriorating AFIB/Flutter Converted to normal sinus Continue amiodarone to maintain sinus Cardizem for rate control Echocardiogram with normal LV function Ischemia evaluation prior to d/c when stable Continue anticoagulation with xarelto 15 mg EP for ablation as outpatient ok transfer to [facility] Critical care 30 minutes Subjective Cardiovascular: Reports: no symptoms Respiratory: Reports: no symptoms Gastrointestinal/Abdominal: Reports: no symptoms Subjective No acute events, patient stable on nasal canula and remains in normal sinus, no fevers, vitals stable, no complaints Objective Last 24 Hour Vital Signs Date Time Temp Pulse Resp B/P (MAP) Pulse Ox O2 Delivery O2 Flow Rate FiO2 04/07/20 08:00 Nasal Cannula 2.0 04/07/20 08:00 88 16 124/47 (72) 100 04/07/20 07:00 93 21 143/49 (80) 91 04/07/20 06:00 98 18 133/56 (81) 99 04/07/20 05:39 95 133/50 04/07/20 05:00 92 25 133/50 (77) 100 04/07/20 04:00 95 04/07/20 04:00 Nasal Cannula 2.0 04/07/20 04:00 99.0 95 19 138/61 (86) 100 04/07/20 03:00 91 22 146/52 (83) 99 04/07/20 02:00 93 19 129/51 (77) 100 04/07/20 02:00 88 22 99 04/07/20 01:00 93 19 133/51 (78) 100 04/07/20 00:00 Nasal Cannula 2.0 04/07/20 00:00 98.6 92 22 141/61 (87) 99 04/07/20 00:00 90 04/07/20 00:00 97 04/06/20 23:00 93 22 155/65 (95) 100 04/06/20 22:00 96 18 154/68 (96) 100 04/06/20 21:31 100 137/58 04/06/20 21:00 91 12 137/58 (84) 100 04/06/20 20:30 92 23 130/73 (92) 76 04/06/20 20:15 94 17 136/60 (85) 84 04/06/20 20:00 98.8 89 14 136/64 (88) 84 04/06/20 20:00 92 04/06/20 20:00 Nasal Cannula 2.0 04/06/20 19:00 91 18 143/59 (87) 94 04/06/20 18:00 88 11 152/66 (94) 81 04/06/20 17:00 86 10 126/54 (78) 85 04/06/20 16:01 97 04/06/20 16:00 Nasal Cannula 2.0 04/06/20 16:00 97 16 132/56 (81) 95 04/06/20 16:00 2.0 04/06/20 15:00 92 19 134/59 (84) 100 04/06/20 14:00 94 19 136/52 (80) 100 04/06/20 13:21 93 110/56 04/06/20 13:00 92 24 150/55 (86) 100 04/06/20 12:00 2.0 04/06/20 12:00 Nasal Cannula 2.0 04/06/20 12:00 99.4 93 20 128/53 (78) 100 04/06/20 11:40 96 04/06/20 11:00 95 15 133/52 (79) 100 04/06/20 10:00 89 15 121/52 (75) 100 General Appearance: no apparent distress, alert EENT: PERRL/EOMI, normal ENT inspection, pharynx normal Neck: non-tender, normal alignment, supple, normal inspection Rhythm: NSR Cardiovascular: normal peripheral pulses, normal rate, regular rhythm Respiratory/Chest: chest wall non-tender, lungs clear, normal breath sounds Abdomen: non tender, soft, no mass Extremities: normal range of motion, non-tender, normal inspection, no calf tenderness Neurologic: echocardiologist II-XII grossly normal, no motor/sensory deficits Intake and Output 04/06/20 04/07/20 19:00 07:00 Intake Total 1660.826 ml 1220 ml Output Total 995 ml 790 ml Balance 665.826 ml 430 ml Intake Oral 400 ml 560 ml IV Total 820.826 ml 660 ml Tube Feeding 440 ml Output Urine Total 845 ml 570 ml Stool Total 150 ml 220 ml Laboratory Tests Test 04/06/20 17:15 04/07/20 04:45 Stool Occult Blood Positive (NEGATIVE) White Blood Count 9.2 K/UL (4.8-10.8) Red Blood Count 2.76 M/UL (4.20-5.40) L Hemoglobin 7.0 G/DL (12.0-16.0) L Hematocrit 24.1 % (37.0-47.0) L Mean Corpuscular Volume 87 FL (80-99) Mean Corpuscular Hemoglobin 25.4 PG (27.0-31.0) L Mean Corpuscular Hemoglobin Concent 29.2 G/DL (32.0-36.0) L Red Cell Distribution Width 19.4 % (11.6-14.8) H Platelet Count 246 K/UL (150-450) Mean Platelet Volume 8.0 FL (6.5-10.1) Neutrophils (%) (Auto) 77.7 % (45.0-75.0) H Lymphocytes (%) (Auto) 12.1 % (20.0-45.0) L Monocytes (%) (Auto) 8.1 % (1.0-10.0) Eosinophils (%) (Auto) 1.5 % (0.0-3.0) Basophils (%) (Auto) 0.6 % (0.0-2.0) Neutrophils % (Manual) Pending Lymphocytes % (Manual) Pending Platelet Estimate Pending Platelet Morphology Pending Sodium Level 144 MMOL/L (136-145) Potassium Level 3.9 MMOL/L (3.5-5.1) Chloride Level 112 MMOL/L (98-107) H Carbon Dioxide Level 26 MMOL/L (21-32) Anion Gap 6 mmol/L (5-15) Blood Urea Nitrogen 37 mg/dL (7-18) H Creatinine 1.2 MG/DL (0.55-1.30) Estimat Glomerular Filtration Rate 54.3 mL/min (>60) Glucose Level 105 MG/DL (74-106) Calcium Level 8.0 MG/DL (8.5-10.1) L Phosphorus Level 2.7 MG/DL (2.5-4.9) Magnesium Level 1.6 MG/DL (1.8-2.4) L Total Bilirubin 0.2 MG/DL (0.2-1.0) Direct Bilirubin 0.1 MG/DL (0.0-0.3) Aspartate Amino Transf (AST/SGOT) 10 U/L (15-37) L Alanine Aminotransferase (ALT/SGPT) 8 U/L (12-78) L Alkaline Phosphatase 68 U/L (46-116) Total Protein 5.0 G/DL (6.4-8.2) L Albumin 1.4 G/DL (3.4-5.0) L Globulin 3.7 g/dL Albumin/Globulin Ratio 0.4 (1.0-2.7) L Rafat Crooks MD Apr 07, 2020 09:55
--- NOTE | 2020-04-07 10:05 | NUR ---
NURSE NOTES: Gave medications as prescribed, no adverse reactions noted. Fed breakfast to patient at bedside, approximately 25% consumed. Patient complained of pain 8/10, prescribed morphine 4mg given. Patient is afebrile.
--- NOTE | 2020-04-07 11:15 | NUR ---
NURSE NOTES: Spoke to patient regarding blood transfusion, patient would like to, "think about it first." Informed Dr. Wray, instructed to hold off on blood transfusion, continue Venofer, and check CBC in the morning.
--- NOTE | 2020-04-07 12:10 | General Progress Note ---
Assessment/Plan Status: stable Status Narrative #Acute Hypoxic Resp Failure #Afib w/ RVR, now in SR, off heparin gtt and on Xarelto #Acute Renal Failure 2/2 ATN from Rhabo --> BUN and creatinine still very elevated, consider HD if concern of Uremic Encephalopathy; slowly improving #Rhabdo #Sepsis, HCAP/UTI, COVID negative , + ESBL --> Sputum w/ multiple MDR organisms , now requiring aggressive AB #Seizure vs prolonged period of immobility --> once extubated will investigate cause of Rhabdo and try to discern more info #Hx of Colectomy w/ Colostomy #GI Bleed, Acute Anemia due to blood loss, Iron Deficient Plan Appreciate Consultants and ICU team Extubated and satting well on NC Now Meropenem, Micagungin, Polymoxin, S/P Vancomyin, Cefepime, Flagyl Amiodarone PO, Diltiazem PO, s/p drips DC AC given drop in Hb and + FOBT -> Trend CBC, transfuse for Hb < 7, GI consult (Dr Boyd) Chelsea Bag care IVF per Nephro, may require HD given renal function but output good DVT and GI ppx; Tube Feeds * Will need to follow up why patient had Rhabdo? if Seizure hx could be uncontrolled seizure and then a neuro consult would be needed. Will look into s/ p extubation 04/02: Vent weening; f/u w/ ID recs regarding WBC and ongoing AB 04/03: Unable to wean patient as she has become hemodynamically unstable with elevated heart rate with atrial flutter in the 170s. Currently she is on amiodarone and Cardizem drip and did receive digoxin without good response today. We have recultured her , todd on broad-spectrum antibiotics with vancomycin, cefepime, Flagyl. Appreciate consultants. FiO2 at 35% on AC. Monitor urine output. 04/04: Remains on Cardizem and Amiodarone gtt; Patient unable to ween. Anticipate placing on Carbapenem. 04/05: WBC improving, Now on Carbapenem; anticipate extubation today. Amio and Cardizem PO 04/06: Continue Meropenem, Micafungin, and Polymoxin. Pending SOBT; continue IV iron. Downgrade if stable later today and ok w/ pulm. Will order swallow eval 04/07: HDS, Resp stable, +FOBT w/ Hb 7.2 -> 7.0, AC held, will DC. GI to evaluate Subjective Date patient seen: Apr 07, 2020 Allergies: Coded Allergies: LISINOPRIL (Verified Allergy, Unknown, Hives, 04/12/14) Subjective Remains in ICU AVSS Hb stable at ~7 FOBT positive AC held this am Stable for downgrade to stepdown unit today Objective Last 24 Hour Vital Signs Date Time Temp Pulse Resp B/P (MAP) Pulse Ox O2 Delivery O2 Flow Rate FiO2 04/07/20 11:00 106 24 148/65 (92) 100 04/07/20 10:00 97.3 93 17 144/65 (91) 100 04/07/20 09:00 94 16 126/53 (77) 100 04/07/20 08:00 92 04/07/20 08:00 Nasal Cannula 2.0 04/07/20 08:00 88 16 124/47 (72) 100 04/07/20 07:00 93 21 143/49 (80) 91 04/07/20 06:00 98 18 133/56 (81) 99 04/07/20 05:39 95 133/50 04/07/20 05:00 92 25 133/50 (77) 100 04/07/20 04:00 95 04/07/20 04:00 Nasal Cannula 2.0 04/07/20 04:00 99.0 95 19 138/61 (86) 100 04/07/20 03:00 91 22 146/52 (83) 99 04/07/20 02:00 93 19 129/51 (77) 100 04/07/20 02:00 88 22 99 04/07/20 01:00 93 19 133/51 (78) 100 04/07/20 00:00 Nasal Cannula 2.0 04/07/20 00:00 98.6 92 22 141/61 (87) 99 04/07/20 00:00 90 04/07/20 00:00 97 04/06/20 23:00 93 22 155/65 (95) 100 04/06/20 22:00 96 18 154/68 (96) 100 04/06/20 21:31 100 137/58 04/06/20 21:00 91 12 137/58 (84) 100 04/06/20 20:30 92 23 130/73 (92) 76 04/06/20 20:15 94 17 136/60 (85) 84 04/06/20 20:00 98.8 89 14 136/64 (88) 84 04/06/20 20:00 92 04/06/20 20:00 Nasal Cannula 2.0 04/06/20 19:00 91 18 143/59 (87) 94 04/06/20 18:00 88 11 152/66 (94) 81 04/06/20 17:00 86 10 126/54 (78) 85 04/06/20 16:01 97 04/06/20 16:00 Nasal Cannula 2.0 04/06/20 16:00 97 16 132/56 (81) 95 04/06/20 16:00 2.0 04/06/20 15:00 92 19 134/59 (84) 100 04/06/20 14:00 94 19 136/52 (80) 100 04/06/20 13:21 93 110/56 04/06/20 13:00 92 24 150/55 (86) 100 04/06/20 12:00 2.0 04/06/20 12:00 Nasal Cannula 2.0 04/06/20 12:00 99.4 93 20 128/53 (78) 100 Intake and Output 04/06/20 04/07/20 19:00 07:00 Intake Total 1660.826 ml 1220 ml Output Total 995 ml 790 ml Balance 665.826 ml 430 ml Intake Oral 400 ml 560 ml IV Total 820.826 ml 660 ml Tube Feeding 440 ml Output Urine Total 845 ml 570 ml Stool Total 150 ml 220 ml Laboratory Tests 04/06/20 17:15: Stool Occult Blood Positive 04/07/20 04:45: White Blood Count 9.2, Red Blood Count 2.76L, Hemoglobin 7.0L, Hematocrit 24.1L , Mean Corpuscular Volume 87, Mean Corpuscular Hemoglobin 25.4L, Mean Corpuscular Hemoglobin Concent 29.2L, Red Cell Distribution Width 19.4H, Platelet Count 246, Mean Platelet Volume 8.0, Neutrophils (%) (Auto) 77.7H, Lymphocytes (%) (Auto) 12.1L, Monocytes (%) (Auto) 8.1, Eosinophils (%) (Auto) 1.5, Basophils (%) (Auto) 0.6, Differential Total Cells Counted 100, Neutrophils % (Manual) 79H, Lymphocytes % (Manual) 13L, Monocytes % (Manual) 6, Eosinophils % (Manual) 2, Basophils % (Manual) 0, Band Neutrophils 0, Platelet Estimate Adequate, Platelet Morphology Normal, Hypochromasia 3+, Anisocytosis 2+ , Sodium Level 144, Potassium Level 3.9, Chloride Level 112H, Carbon Dioxide Level 26, Anion Gap 6, Blood Urea Nitrogen 37H, Creatinine 1.2, Estimat Glomerular Filtration Rate 54.3, Glucose Level 105, Calcium Level 8.0L, Phosphorus Level 2.7, Magnesium Level 1.6L, Total Bilirubin 0.2, Direct Bilirubin 0.1, Aspartate Amino Transf (AST/SGOT) 10L, Alanine Aminotransferase ( ALT/SGPT) 8L, Alkaline Phosphatase 68, Total Protein 5.0L, Albumin 1.4L, Globulin 3.7, Albumin/Globulin Ratio 0.4L Height (Feet): 5 Height (Inches): 6.00 Weight (Pounds): 294 Objective General Appearance: Extubated,saturating well on NC EENT: PERRL/EOMI Cardiovascular: arrhythmia, irregularly irregular Respiratory/Chest: + Rhonchi Abdomen: non tender, soft, Chelsea Bag Edema: mild edema 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
[2020-04-07] MEDS: dilTIAZem HCl 90mg tab NG SCH ×2 (13:25→22:42)
--- NOTE | 2020-04-07 14:20 | Cardiac Electrophysiology PN ---
Assessment/Plan Assessment/Plan 1. Atrial flutter with rapid ventricular response of 170s. On Cardizem 90 OG tid and amiodarone 400 po bid On Xarelto 15 mg daily. Would benefit from atrial flutter ablation when stable 2. Hypertension. On Cardizem 3. Respiratory failure, still intubated via the T-tube. 4. Acute renal failure, that is improving. 5. Normal left ventricular systolic function based on the echocardiogram on March 26, 2020, with EF of 55%. Subjective Subjective In SR on Po Amiodarone and Cardizem.In ICU in NAD only on 2 liter NC Objective Last 24 Hour Vital Signs Date Time Temp Pulse Resp B/P (MAP) Pulse Ox O2 Delivery O2 Flow Rate FiO2 04/07/20 14:03 100 24 117/67 (84) 100 04/07/20 13:25 85 167/54 04/07/20 13:01 98.9 96 22 159/64 (95) 100 04/07/20 13:00 94 24 175/69 (104) 100 04/07/20 12:06 85 24 167/54 (91) 100 04/07/20 12:05 90 04/07/20 12:00 Nasal Cannula 2.0 04/07/20 11:00 106 24 148/65 (92) 100 04/07/20 10:00 97.3 93 17 144/65 (91) 100 04/07/20 09:00 94 16 126/53 (77) 100 04/07/20 08:00 92 04/07/20 08:00 Nasal Cannula 2.0 04/07/20 08:00 88 16 124/47 (72) 100 04/07/20 07:00 93 21 143/49 (80) 91 04/07/20 06:00 98 18 133/56 (81) 99 04/07/20 05:39 95 133/50 04/07/20 05:00 92 25 133/50 (77) 100 04/07/20 04:00 95 04/07/20 04:00 Nasal Cannula 2.0 04/07/20 04:00 99.0 95 19 138/61 (86) 100 04/07/20 03:00 91 22 146/52 (83) 99 04/07/20 02:00 93 19 129/51 (77) 100 04/07/20 02:00 88 22 99 04/07/20 01:00 93 19 133/51 (78) 100 04/07/20 00:00 Nasal Cannula 2.0 04/07/20 00:00 98.6 92 22 141/61 (87) 99 04/07/20 00:00 90 04/07/20 00:00 97 04/06/20 23:00 93 22 155/65 (95) 100 04/06/20 22:00 96 18 154/68 (96) 100 04/06/20 21:31 100 137/58 04/06/20 21:00 91 12 137/58 (84) 100 04/06/20 20:30 92 23 130/73 (92) 76 04/06/20 20:15 94 17 136/60 (85) 84 04/06/20 20:00 98.8 89 14 136/64 (88) 84 04/06/20 20:00 92 04/06/20 20:00 Nasal Cannula 2.0 04/06/20 19:00 91 18 143/59 (87) 94 04/06/20 18:00 88 11 152/66 (94) 81 04/06/20 17:00 86 10 126/54 (78) 85 04/06/20 16:01 97 04/06/20 16:00 Nasal Cannula 2.0 04/06/20 16:00 97 16 132/56 (81) 95 04/06/20 16:00 2.0 04/06/20 15:00 92 19 134/59 (84) 100 Intake and Output 04/06/20 04/07/20 19:00 07:00 Intake Total 1660.826 ml 1220 ml Output Total 995 ml 790 ml Balance 665.826 ml 430 ml Intake Oral 400 ml 560 ml IV Total 820.826 ml 660 ml Tube Feeding 440 ml Output Urine Total 845 ml 570 ml Stool Total 150 ml 220 ml Laboratory Tests Test 04/06/20 17:15 04/07/20 04:45 Stool Occult Blood Positive (NEGATIVE) White Blood Count 9.2 K/UL (4.8-10.8) Red Blood Count 2.76 M/UL (4.20-5.40) L Hemoglobin 7.0 G/DL (12.0-16.0) L Hematocrit 24.1 % (37.0-47.0) L Mean Corpuscular Volume 87 FL (80-99) Mean Corpuscular Hemoglobin 25.4 PG (27.0-31.0) L Mean Corpuscular Hemoglobin Concent 29.2 G/DL (32.0-36.0) L Red Cell Distribution Width 19.4 % (11.6-14.8) H Platelet Count 246 K/UL (150-450) Mean Platelet Volume 8.0 FL (6.5-10.1) Neutrophils (%) (Auto) 77.7 % (45.0-75.0) H Lymphocytes (%) (Auto) 12.1 % (20.0-45.0) L Monocytes (%) (Auto) 8.1 % (1.0-10.0) Eosinophils (%) (Auto) 1.5 % (0.0-3.0) Basophils (%) (Auto) 0.6 % (0.0-2.0) Differential Total Cells Counted 100 Neutrophils % (Manual) 79 % (45-75) H Lymphocytes % (Manual) 13 % (20-45) L Monocytes % (Manual) 6 % (1-10) Eosinophils % (Manual) 2 % (0-3) Basophils % (Manual) 0 % (0-2) Band Neutrophils 0 % (0-8) Platelet Estimate Adequate Platelet Morphology Normal Hypochromasia 3+ Anisocytosis 2+ Sodium Level 144 MMOL/L (136-145) Potassium Level 3.9 MMOL/L (3.5-5.1) Chloride Level 112 MMOL/L (98-107) H Carbon Dioxide Level 26 MMOL/L (21-32) Anion Gap 6 mmol/L (5-15) Blood Urea Nitrogen 37 mg/dL (7-18) H Creatinine 1.2 MG/DL (0.55-1.30) Estimat Glomerular Filtration Rate 54.3 mL/min (>60) Glucose Level 105 MG/DL (74-106) Calcium Level 8.0 MG/DL (8.5-10.1) L Phosphorus Level 2.7 MG/DL (2.5-4.9) Magnesium Level 1.6 MG/DL (1.8-2.4) L Total Bilirubin 0.2 MG/DL (0.2-1.0) Direct Bilirubin 0.1 MG/DL (0.0-0.3) Aspartate Amino Transf (AST/SGOT) 10 U/L (15-37) L Alanine Aminotransferase (ALT/SGPT) 8 U/L (12-78) L Alkaline Phosphatase 68 U/L (46-116) Total Protein 5.0 G/DL (6.4-8.2) L Albumin 1.4 G/DL (3.4-5.0) L Globulin 3.7 g/dL Albumin/Globulin Ratio 0.4 (1.0-2.7) L Objective NECK: No JVD LUNGS: Coarse rhonchi. CARDIOVASCULAR: Regular S1 and S2 with no gallop. ABDOMEN: Soft. EXTREMITIES: No pitting edema. Carlos Dean MD Apr 07, 2020 14:20
--- NOTE | 2020-04-07 14:30 | NUR ---
NURSE NOTES: Bed bath given to patient, turned and repositioned. Changed wound dressings.
--- NOTE | 2020-04-07 15:02 | Pulmonology Progress Note ---
Subjective ROS Limited/Unobtainable: Yes Interval Events: Extubated 04/05/20; doing well on 2L/min O2 Constitutional: Reports: other - extubated ; Denies: fever, fatigue HEENT: Repors: no symptoms Respiratory: Reports: no symptoms Cardiovascular: Reports: no symptoms Gastrointestinal/Abdominal: Denies: nausea, vomiting, diarrhea Genitourinary: Reports: no symptoms Psychiatric: Denies: depression Skin: Denies: rash Musculoskeletal: Denies: pain Allergies: Coded Allergies: LISINOPRIL (Verified Allergy, Unknown, Hives, 04/12/14) Objective Last 24 Hour Vital Signs Date Time Temp Pulse Resp B/P (MAP) Pulse Ox O2 Delivery O2 Flow Rate FiO2 04/07/20 14:03 100 24 117/67 (84) 100 04/07/20 13:25 85 167/54 04/07/20 13:01 98.9 96 22 159/64 (95) 100 04/07/20 13:00 94 24 175/69 (104) 100 04/07/20 12:06 85 24 167/54 (91) 100 04/07/20 12:05 90 04/07/20 12:00 Nasal Cannula 2.0 04/07/20 11:00 106 24 148/65 (92) 100 04/07/20 10:00 97.3 93 17 144/65 (91) 100 04/07/20 09:00 94 16 126/53 (77) 100 04/07/20 08:00 92 04/07/20 08:00 Nasal Cannula 2.0 04/07/20 08:00 88 16 124/47 (72) 100 04/07/20 07:00 93 21 143/49 (80) 91 04/07/20 06:00 98 18 133/56 (81) 99 04/07/20 05:39 95 133/50 04/07/20 05:00 92 25 133/50 (77) 100 04/07/20 04:00 95 04/07/20 04:00 Nasal Cannula 2.0 04/07/20 04:00 99.0 95 19 138/61 (86) 100 04/07/20 03:00 91 22 146/52 (83) 99 04/07/20 02:00 93 19 129/51 (77) 100 04/07/20 02:00 88 22 99 04/07/20 01:00 93 19 133/51 (78) 100 04/07/20 00:00 Nasal Cannula 2.0 04/07/20 00:00 98.6 92 22 141/61 (87) 99 04/07/20 00:00 90 04/07/20 00:00 97 04/06/20 23:00 93 22 155/65 (95) 100 04/06/20 22:00 96 18 154/68 (96) 100 04/06/20 21:31 100 137/58 04/06/20 21:00 91 12 137/58 (84) 100 04/06/20 20:30 92 23 130/73 (92) 76 04/06/20 20:15 94 17 136/60 (85) 84 04/06/20 20:00 98.8 89 14 136/64 (88) 84 04/06/20 20:00 92 04/06/20 20:00 Nasal Cannula 2.0 04/06/20 19:00 91 18 143/59 (87) 94 04/06/20 18:00 88 11 152/66 (94) 81 04/06/20 17:00 86 10 126/54 (78) 85 04/06/20 16:01 97 04/06/20 16:00 Nasal Cannula 2.0 04/06/20 16:00 97 16 132/56 (81) 95 04/06/20 16:00 2.0 Intake and Output 04/06/20 04/07/20 19:00 07:00 Intake Total 1660.826 ml 1220 ml Output Total 995 ml 790 ml Balance 665.826 ml 430 ml Intake Oral 400 ml 560 ml IV Total 820.826 ml 660 ml Tube Feeding 440 ml Output Urine Total 845 ml 570 ml Stool Total 150 ml 220 ml General Appearance: no acute distress HEENT: normocephalic Respiratory: chest wall non-tender, lungs clear Cardiovascular: normal peripheral pulses, normal rate Abdomen: normal bowel sounds Laboratory Tests 04/06/20 17:15: Stool Occult Blood Positive 04/07/20 04:45: White Blood Count 9.2, Red Blood Count 2.76L, Hemoglobin 7.0L, Hematocrit 24.1L , Mean Corpuscular Volume 87, Mean Corpuscular Hemoglobin 25.4L, Mean Corpuscular Hemoglobin Concent 29.2L, Red Cell Distribution Width 19.4H, Platelet Count 246, Mean Platelet Volume 8.0, Neutrophils (%) (Auto) 77.7H, Lymphocytes (%) (Auto) 12.1L, Monocytes (%) (Auto) 8.1, Eosinophils (%) (Auto) 1.5, Basophils (%) (Auto) 0.6, Differential Total Cells Counted 100, Neutrophils % (Manual) 79H, Lymphocytes % (Manual) 13L, Monocytes % (Manual) 6, Eosinophils % (Manual) 2, Basophils % (Manual) 0, Band Neutrophils 0, Platelet Estimate Adequate, Platelet Morphology Normal, Hypochromasia 3+, Anisocytosis 2+ , Sodium Level 144, Potassium Level 3.9, Chloride Level 112H, Carbon Dioxide Level 26, Anion Gap 6, Blood Urea Nitrogen 37H, Creatinine 1.2, Estimat Glomerular Filtration Rate 54.3, Glucose Level 105, Calcium Level 8.0L, Phosphorus Level 2.7, Magnesium Level 1.6L, Total Bilirubin 0.2, Direct Bilirubin 0.1, Aspartate Amino Transf (AST/SGOT) 10L, Alanine Aminotransferase ( ALT/SGPT) 8L, Alkaline Phosphatase 68, Total Protein 5.0L, Albumin 1.4L, Globulin 3.7, Albumin/Globulin Ratio 0.4L Current Medications Medications (Trade) Dose Ordered Sig/Debbie Route PRN Reason Start Time Stop Time Status Last Admin Dose Admin Acetaminophen (Tylenol) 650 mg Q4H PRN NG Mild Pain (Pain Scale 1-3) 04/05/20 10:45 04/25/20 21:14 04/07/20 12:41 Acetaminophen (Tylenol) 650 mg Q4H PRN NG Temp >100.5 04/05/20 10:45 04/25/20 21:14 Al Hydroxide/Mg Hydroxide (Mylanta II) 30 ml Q6H PRN NG dyspepsia 04/05/20 10:45 04/25/20 21:14 Amiodarone HCl (Cordarone) 400 mg EVERY 12 HOURS NG 04/06/20 21:00 07/05/20 20:59 04/07/20 09:19 Bisacodyl (Dulcolax) 10 mg HSPRN PRN RECTAL Constipation 03/26/20 21:15 06/24/20 21:14 Chlorhexidine Gluconate (Laurie-Hex 2%) 1 applic DAILY@2000 TOPIC 03/28/20 20:00 06/26/20 19:59 04/06/20 20:10 Dextrose (Dextrose 50%) 25 ml Q30M PRN IV Hypoglycemia 03/26/20 21:15 06/24/20 21:14 Dextrose (Dextrose 50%) 50 ml Q30M PRN IV Hypoglycemia 03/26/20 21:15 06/24/20 21:14 Diltiazem HCl (Cardizem) 90 mg EVERY 8 HOURS NG 04/07/20 14:00 05/04/20 14:59 04/07/20 13:25 Diphenhydramine HCl (Benadryl) 25 mg Q6H PRN NG Itching/Pruritis 04/05/20 10:45 04/25/20 21:14 Docusate Sodium (Colace) 100 mg Q12HR NG 03/30/20 09:00 04/29/20 08:59 04/07/20 09:18 Gabapentin (Neurontin) 300 mg BEDTIME NG 04/05/20 21:00 04/26/20 20:59 04/06/20 21:21 Iron Sucrose 100 mg/Sodium Chloride 60 ml @ 240 mls/hr BEDTIME IV 04/06/20 21:00 04/10/20 21:14 04/06/20 21:17 Lorazepam (Ativan 2mg/ml 1ml) 1 mg Q4H PRN IV For Anxiety 04/03/20 09:15 04/08/20 13:14 04/07/20 04:45 Magnesium Hydroxide (Mom) 30 ml HSPRN PRN NG Constipation 04/05/20 10:45 04/25/20 21:14 Meropenem 1 gm/ Sodium Chloride 100 ml @ 200 mls/hr Q12HR IVPB 04/04/20 21:00 04/09/20 20:59 04/07/20 09:18 Metoclopramide HCl (Reglan) 10 mg Q6H PRN IVP Nausea & Vomiting 03/26/20 21:15 04/25/20 21:14 Micafungin Sodium 100 mg/Sodium Chloride 100 ml @ 100 mls/hr Q24H IVPB 04/04/20 20:00 04/11/20 19:59 04/06/20 20:10 Morphine Sulfate (Morphine Sulfate) 2 mg Q4H PRN IVP Moderate Pain (Pain Scale 4-6) 04/01/20 13:15 04/08/20 13:14 04/07/20 05:40 Morphine Sulfate (Morphine Sulfate) 4 mg Q4H PRN IVP Severe Pain (Pain Scale 7-10) 04/01/20 13:15 04/08/20 13:14 04/07/20 13:58 Ondansetron HCl (Zofran) 4 mg Q6H PRN IVP Nausea & Vomiting 03/26/20 21:15 04/25/20 21:14 Pantoprazole (Protonix) 40 mg DAILY IVP 04/01/20 09:00 05/01/20 08:59 04/07/20 09:18 Polyethylene Glycol (Miralax) 17 gm HSPRN PRN NG Constipation 04/05/20 10:45 04/25/20 21:14 Polymyxin B Sulfate [id number] units/Dextrose 500 ml @ 500 mls/hr EVERY 12 HOURS IVPB 04/05/20 21:00 04/12/20 20:59 04/07/20 09:18 Rivaroxaban (Xarelto) 15 mg DAILY NG 03/31/20 09:00 06/29/20 08:59 04/06/20 09:19 Temazepam (Restoril) 15 mg HSPRN PRN NG Insomnia 04/05/20 10:45 04/08/20 10:14 04/05/20 22:40 Assessment/Plan Assessment/Plan IMPRESSION: 1. Hyperkalemia. Corrected 2. Tachycardia; resolved 3. Sepsis 4. Hypertension. 5. Seizure disorder. 6. Acute renal failure. 7. Respiratory failure; extubated 04/05/20 DISCUSSION: Continue ICU care Correction of electrolytes Now on 2L/min O2 Desai/colostomy care Swallow eval Seven Yao Omar Syed MD Apr 07, 2020 15:02
--- NOTE | 2020-04-07 16:44 | Surgery Progress Note ---
Surgery Progress Note Subjective Additional Comments doing well extubated comfortable downgrade labs noted Objective Last 24 Hour Vital Signs Date Time Temp Pulse Resp B/P (MAP) Pulse Ox O2 Delivery O2 Flow Rate FiO2 04/07/20 16:00 88 12 121/58 (79) 98 04/07/20 16:00 Nasal Cannula 2.0 04/07/20 15:19 86 04/07/20 15:03 91 24 113/67 (82) 100 04/07/20 14:03 100 24 117/67 (84) 100 04/07/20 13:25 85 167/54 04/07/20 13:01 98.9 96 22 159/64 (95) 100 04/07/20 13:00 94 24 175/69 (104) 100 04/07/20 12:06 85 24 167/54 (91) 100 04/07/20 12:05 90 04/07/20 12:00 Nasal Cannula 2.0 04/07/20 11:00 106 24 148/65 (92) 100 04/07/20 10:00 97.3 93 17 144/65 (91) 100 04/07/20 09:00 94 16 126/53 (77) 100 04/07/20 08:00 92 04/07/20 08:00 Nasal Cannula 2.0 04/07/20 08:00 88 16 124/47 (72) 100 04/07/20 07:00 93 21 143/49 (80) 91 04/07/20 06:00 98 18 133/56 (81) 99 04/07/20 05:39 95 133/50 04/07/20 05:00 92 25 133/50 (77) 100 04/07/20 04:00 95 04/07/20 04:00 Nasal Cannula 2.0 04/07/20 04:00 99.0 95 19 138/61 (86) 100 04/07/20 03:00 91 22 146/52 (83) 99 04/07/20 02:00 93 19 129/51 (77) 100 04/07/20 02:00 88 22 99 04/07/20 01:00 93 19 133/51 (78) 100 04/07/20 00:00 Nasal Cannula 2.0 04/07/20 00:00 98.6 92 22 141/61 (87) 99 04/07/20 00:00 90 04/07/20 00:00 97 04/06/20 23:00 93 22 155/65 (95) 100 04/06/20 22:00 96 18 154/68 (96) 100 04/06/20 21:31 100 137/58 04/06/20 21:00 91 12 137/58 (84) 100 04/06/20 20:30 92 23 130/73 (92) 76 04/06/20 20:15 94 17 136/60 (85) 84 04/06/20 20:00 98.8 89 14 136/64 (88) 84 04/06/20 20:00 92 04/06/20 20:00 Nasal Cannula 2.0 04/06/20 19:00 91 18 143/59 (87) 94 04/06/20 18:00 88 11 152/66 (94) 81 04/06/20 17:00 86 10 126/54 (78) 85 I&O Intake and Output 04/06/20 04/07/20 19:00 07:00 Intake Total 1660.826 ml 1220 ml Output Total 995 ml 790 ml Balance 665.826 ml 430 ml Intake Oral 400 ml 560 ml IV Total 820.826 ml 660 ml Tube Feeding 440 ml Output Urine Total 845 ml 570 ml Stool Total 150 ml 220 ml Dressing: saturated Cardiovascular: RSR Respiratory: decreased breath sounds Abdomen: soft, non-tender, present bowel sounds Extremities: edema Laboratory Tests Test 04/06/20 17:15 04/07/20 04:45 Stool Occult Blood Positive (NEGATIVE) White Blood Count 9.2 K/UL (4.8-10.8) Red Blood Count 2.76 M/UL (4.20-5.40) L Hemoglobin 7.0 G/DL (12.0-16.0) L Hematocrit 24.1 % (37.0-47.0) L Mean Corpuscular Volume 87 FL (80-99) Mean Corpuscular Hemoglobin 25.4 PG (27.0-31.0) L Mean Corpuscular Hemoglobin Concent 29.2 G/DL (32.0-36.0) L Red Cell Distribution Width 19.4 % (11.6-14.8) H Platelet Count 246 K/UL (150-450) Mean Platelet Volume 8.0 FL (6.5-10.1) Neutrophils (%) (Auto) 77.7 % (45.0-75.0) H Lymphocytes (%) (Auto) 12.1 % (20.0-45.0) L Monocytes (%) (Auto) 8.1 % (1.0-10.0) Eosinophils (%) (Auto) 1.5 % (0.0-3.0) Basophils (%) (Auto) 0.6 % (0.0-2.0) Differential Total Cells Counted 100 Neutrophils % (Manual) 79 % (45-75) H Lymphocytes % (Manual) 13 % (20-45) L Monocytes % (Manual) 6 % (1-10) Eosinophils % (Manual) 2 % (0-3) Basophils % (Manual) 0 % (0-2) Band Neutrophils 0 % (0-8) Platelet Estimate Adequate Platelet Morphology Normal Hypochromasia 3+ Anisocytosis 2+ Sodium Level 144 MMOL/L (136-145) Potassium Level 3.9 MMOL/L (3.5-5.1) Chloride Level 112 MMOL/L (98-107) H Carbon Dioxide Level 26 MMOL/L (21-32) Anion Gap 6 mmol/L (5-15) Blood Urea Nitrogen 37 mg/dL (7-18) H Creatinine 1.2 MG/DL (0.55-1.30) Estimat Glomerular Filtration Rate 54.3 mL/min (>60) Glucose Level 105 MG/DL (74-106) Calcium Level 8.0 MG/DL (8.5-10.1) L Phosphorus Level 2.7 MG/DL (2.5-4.9) Magnesium Level 1.6 MG/DL (1.8-2.4) L Total Bilirubin 0.2 MG/DL (0.2-1.0) Direct Bilirubin 0.1 MG/DL (0.0-0.3) Aspartate Amino Transf (AST/SGOT) 10 U/L (15-37) L Alanine Aminotransferase (ALT/SGPT) 8 U/L (12-78) L Alkaline Phosphatase 68 U/L (46-116) Total Protein 5.0 G/DL (6.4-8.2) L Albumin 1.4 G/DL (3.4-5.0) L Globulin 3.7 g/dL Albumin/Globulin Ratio 0.4 (1.0-2.7) L Plan Problems: (1) Atrial flutter (2) Hypertension (3) Acute encephalopathy (4) VENTURA (acute kidney injury) (5) Acute and chronic respiratory failure with hypoxia (6) Abscess (7) Fistula (8) Sciatica neuralgia (9) Uncontrolled seizures (10) Forgetfulness (11) Sacral decubitus ulcer Assessment & Plan: Patient identified to have a sacral deep tissue injury upon admission Currently intensive care unit on support Care plan initiated (12) Chronic back pain (13) Overdose of opiate or related narcotic (14) Cellulitis of left leg (15) Pericolonic abscess due to diverticulitis (16) Ventral incisional hernia Assessment & Plan: History of colon resection colostomy Ventral incisional hernia reducible No acute invention monitor parastomal hernia stable ostomy viable and functional no acute intervention planned (17) Chronic pain of both knees (18) Dehydration (19) Hyperkalemia (20) Sepsis Assessment & Plan: Patient admitted identified to have sepsis leukocytosis tachycardia abnormal labs lactic acidosis. Chest x-ray reviewed. Imaging noted. Micro noted. Intensive care unit on support appreciate ICU care Nutritional optimization IV fluids IV antibiotics as per infectious disease tube feeds once stable will follow with recommendations thank you for letting participate patient's care Urosepsis on abx extubated improving DAILY ESTIMATED NEEDS: Needs based on Pulmonary, sepsis, wound, VENTURA 75.8kg adj 20-30 kcals/kg 8850-2310 total kcals 1.25-1.5 g protein/kg 94-114 g total protein 25-30 mL/kg 4487-7041 total fluid mLs NUTRITION DIAGNOSIS: Swallowing difficulty r/t respiratory status as evidenced by pt orally intubated, on NGT feeds-> now extubated, pending COKE WORKER eval. PO DIET RECOMMENDATIONS-->>> Cardiac diet / texture per COKE WORKER ENTERAL NUTRITION RECOMMENDATIONS: VITAL AF 1.2 @55ml/hr x24 hrs to provide 1320ml, 1584 kcal, 99g pro, 1071ml free H2O - Maintain at goal as tolerated if not cleared for oral diet by COKE WORKER - Flush per MD/ HOB over 30 degree ADDITIONAL RECOMMENDATIONS: 1) Maintain calibrated bed scale wts (248lbs vs 217lbs last adm) 2) Monitor renal fxn and lytes closely, need for renal formula Creat wnl; lytes low (K,phos,mg) 3) Wound healing: ZnSO4 220mg QD x 10 days+ Boris BID via NGT hold vit C until renal fxn improves 4) NISS w/ TF, h/o DM 5) Monitor po intake if cleared for oral diet; need for snacks/supplements Julian Iglesias Apr 07, 2020 16:44
--- NOTE | 2020-04-07 18:41 | NUR ---
NURSE NOTES: Fed patient dinner at bedside consumed approximately 50% of meal. Patient complained of pain, 4mg prescribed morphine given.
--- NOTE | 2020-04-07 19:15 | NUR ---
HAND-OFF: Report given to John Dior RN.
--- NOTE | 2020-04-07 19:30 | NUR ---
NURSE NOTES: Received report from JOSSELYN Corona. Upon visual inspection; patient in sleeping bed with no acute distress.
--- NOTE | 2020-04-07 19:40 | Nephrology Progress Note ---
Assessment/Plan Plan #VENTURA due to ATN in the setting of rhabdo- on CKD #hyperkalemia #Rhabdo #UTI sepsis #Lactic acidsis #AMS - toxic metabolic encephalopathy #Hypoxemic resp failure #afib with RVR #HLD #Obesity - monitor UOP - replete lytes - monitor K,bmp - weiss placed - strict I&Os - vent management per Dr. Cordova - cardiology eval - ID consult- - antibiotics per ID - flagyl - follow cx - monitor BMP, mag and phos daily - continue TF 30 minutes of critical care time- greater than 50% on care coordination and counseling Subjective ROS Limited/Unobtainable: No Constitutional: Denies: no symptoms, chills, diaphoresis, fever, malaise, weakness, other Genitourinary: Denies: no symptoms, burning, discharge, frequency, flank pain, hematuria, incontinence, pain, urgency, other Neurologic/Psychiatric: Denies: no symptoms, anxiety, depressed, emotional problems, headache, numbness, paresthesia, pre-existing deficit, seizure, tingling, tremors, weakness, other Subjective Cr slowly downtrending extubated to NC lethargic mag low -repleted on broad abx per ID Objective Objective Last 24 Hour Vital Signs Date Time Temp Pulse Resp B/P (MAP) Pulse Ox O2 Delivery O2 Flow Rate FiO2 04/07/20 19:00 90 18 101/53 (69) 100 04/07/20 18:00 85 16 111/53 (72) 98 04/07/20 16:58 90 12 117/48 (71) 98 04/07/20 16:00 97.9 88 12 121/58 (79) 98 04/07/20 16:00 Nasal Cannula 2.0 04/07/20 15:19 86 04/07/20 15:03 91 24 113/67 (82) 100 04/07/20 14:03 100 24 117/67 (84) 100 04/07/20 13:25 85 167/54 04/07/20 13:01 98.9 96 22 159/64 (95) 100 04/07/20 13:00 94 24 175/69 (104) 100 04/07/20 12:06 85 24 167/54 (91) 100 04/07/20 12:05 90 04/07/20 12:00 Nasal Cannula 2.0 04/07/20 11:00 106 24 148/65 (92) 100 04/07/20 10:00 97.3 93 17 144/65 (91) 100 04/07/20 09:00 94 16 126/53 (77) 100 04/07/20 08:00 92 04/07/20 08:00 Nasal Cannula 2.0 04/07/20 08:00 88 16 124/47 (72) 100 04/07/20 07:00 93 21 143/49 (80) 91 04/07/20 06:00 98 18 133/56 (81) 99 04/07/20 05:39 95 133/50 04/07/20 05:00 92 25 133/50 (77) 100 04/07/20 04:00 95 04/07/20 04:00 Nasal Cannula 2.0 04/07/20 04:00 99.0 95 19 138/61 (86) 100 04/07/20 03:00 91 22 146/52 (83) 99 04/07/20 02:00 93 19 129/51 (77) 100 04/07/20 02:00 88 22 99 04/07/20 01:00 93 19 133/51 (78) 100 04/07/20 00:00 Nasal Cannula 2.0 04/07/20 00:00 98.6 92 22 141/61 (87) 99 04/07/20 00:00 90 04/07/20 00:00 97 04/06/20 23:00 93 22 155/65 (95) 100 04/06/20 22:00 96 18 154/68 (96) 100 04/06/20 21:31 100 137/58 04/06/20 21:00 91 12 137/58 (84) 100 04/06/20 20:30 92 23 130/73 (92) 76 04/06/20 20:15 94 17 136/60 (85) 84 04/06/20 20:00 98.8 89 14 136/64 (88) 84 04/06/20 20:00 92 04/06/20 20:00 Nasal Cannula 2.0 Intake and Output 04/06/20 04/07/20 19:00 07:00 Intake Total 1660.826 ml 1220 ml Output Total 995 ml 790 ml Balance 665.826 ml 430 ml Intake Oral 400 ml 560 ml IV Total 820.826 ml 660 ml Tube Feeding 440 ml Output Urine Total 845 ml 570 ml Stool Total 150 ml 220 ml Laboratory Tests 04/07/20 04:45: White Blood Count 9.2, Red Blood Count 2.76L, Hemoglobin 7.0L, Hematocrit 24.1L , Mean Corpuscular Volume 87, Mean Corpuscular Hemoglobin 25.4L, Mean Corpuscular Hemoglobin Concent 29.2L, Red Cell Distribution Width 19.4H, Platelet Count 246, Mean Platelet Volume 8.0, Neutrophils (%) (Auto) 77.7H, Lymphocytes (%) (Auto) 12.1L, Monocytes (%) (Auto) 8.1, Eosinophils (%) (Auto) 1.5, Basophils (%) (Auto) 0.6, Differential Total Cells Counted 100, Neutrophils % (Manual) 79H, Lymphocytes % (Manual) 13L, Monocytes % (Manual) 6, Eosinophils % (Manual) 2, Basophils % (Manual) 0, Band Neutrophils 0, Platelet Estimate Adequate, Platelet Morphology Normal, Hypochromasia 3+, Anisocytosis 2+ , Sodium Level 144, Potassium Level 3.9, Chloride Level 112H, Carbon Dioxide Level 26, Anion Gap 6, Blood Urea Nitrogen 37H, Creatinine 1.2, Estimat Glomerular Filtration Rate 54.3, Glucose Level 105, Calcium Level 8.0L, Phosphorus Level 2.7, Magnesium Level 1.6L, Total Bilirubin 0.2, Direct Bilirubin 0.1, Aspartate Amino Transf (AST/SGOT) 10L, Alanine Aminotransferase ( ALT/SGPT) 8L, Alkaline Phosphatase 68, Total Protein 5.0L, Albumin 1.4L, Globulin 3.7, Albumin/Globulin Ratio 0.4L Height (Feet): 5 Height (Inches): 6.00 Weight (Pounds): 294 Objective General Appearance: other - intubated Lines, tubes and drains: peripheral HEENT: normocephalic, atraumatic Neck: non-tender, normal alignment, supple Respiratory/Chest: lungs clear Cardiovascular/Chest: normal peripheral pulses, tachycardia, irregularly irregular Abdomen: soft Skin Exam: normal pigmentation Neurologic: disoriented Venkat Montes M.D. Apr 07, 2020 19:40
--- NOTE | 2020-04-07 20:00 | NUR ---
NURSE NOTES: Responded to patient call light. Patient presents with no acute distress. Patient request TV channel to be changed. Reports mild generalized pain 3/10; states pain is tolerable and denies need for medication. Discussed plan of care, pain management schedule and possible blood transfusion with patient; patient willing and cooperative; will continue to assess progress of pain and administer PRN analgesics. Patient presented with questions and concerns for blood transfusion; reinforced explanation and educated patient on transfusion criteria and process. Explained transfusion orders placed by MD prior to shift; transfusion on hold pending AM lab results; consent needed. Patient states she will think about it and sign in the morning depending on lab results. PUI droplet precautions observed. All safety measures met; side rails raised x3; bed locked at lowest position; bed alarm engaged on zone 2; call light within reach.
--- NOTE | 2020-04-07 22:00 | NUR ---
NURSE NOTES: Patient awake alert and oriented x4; presents with purposeful movement; left extremity weakness. Vitals stable; NSR 84; RR 22 at 100% on NC 2L; respirations even and unlabored; temp 98.3F axillary. Desai intact and patent; draining well to gravity. Left upper arm PICC noted; flushed and patent. CHG bath provided. Initiated IV infusions and medicated patient as prescribed. Patient reports increasing generalized pain 10/10; administered PRN analgesic; repositioned for comfort. Aspiration precautions observed; HOB raised >30 degrees. Provided patient with nourishment; tolerated well; no signs and symptoms of aspiration. Able to tolerate liquids, solid food and whole pills without incident.
[2020-04-07] MEDS: Iron Sucrose 100 MG in NS 55 ML IV SCH (22:40)
[2020-04-07] MEDS: Dyna-Hex 2% Top Sol 2oz TOPIC SCH (22:41)
[2020-04-08] VITALS (19 sets, daily range): BP systolic 112–161; BP diastolic 26–85
--- NOTE | 2020-04-08 | NUR ---
NURSE NOTES: Repositioned for comfort. Provided patient with water. Patient states pain has plateaud and tolerable; aware of next available time for analgesic administration. Patient states call light with be utilized when pain progresses. Axillary temp 99.1F. Patient remains without acute distress; repositioned for comfort and decreased environmental stimuli. Will continue to monitor.
[2020-04-08] MEDS: Morphine Sulfate 4mg/ml Inj (IV USE ONLY) IVP PRN ×4 (02:51→20:21)
--- NOTE | 2020-04-08 03:00 | NUR ---
NURSE NOTES: Patient reports progressing pain; administered PRN analgesics. Provided patient with complete bed bath; changed soiled linens and gown. Colostomy noted; stoma presents with no signs and symptoms of infection. Pressure sore noted to sacrum left shoulder and left abdomen; dressing remains intact and unsoiled. Patient and vitals remain stable to baseline. Axillary temp 98.2. AM labs drawn and stool specimen collected; sent down to lab. Repositioned for comfort; bilateral upper and lower extremities raised. All safety measures met.
[2020-04-08 06:00] LABS: HEMATOCRIT 25.3 % (37.0-47.0); HEMOGLOBIN 7.5 G/DL (12.0-16.0); MEAN CORPUSCULAR VOLUME 88 FL (80-99); PLATELET COUNT 264 K/UL (150-450); RED BLOOD COUNT 2.89 M/UL (4.20-5.40); RED CELL DISTRIBUTION WIDTH 19.5 % (11.6-14.8); WHITE BLOOD COUNT 10.4 K/UL (4.8-10.8)
--- NOTE | 2020-04-08 06:00 | NUR ---
NURSE NOTES: Medicated patient as prescribed; patient tolerated well. Provided patient with juice per request. Repositioned for comfort.
[2020-04-08] MEDS: dilTIAZem HCl 90mg tab NG SCH ×2 (06:05→13:09)
[2020-04-08 06:14] LABS: ALANINE AMINOTRANSFERASE 7 U/L (12-78); ALBUMIN 1.5 G/DL (3.4-5.0); ALBUMIN/GLOBULIN RATIO 0.4 (1.0-2.7); ALKALINE PHOSPHATASE 78 U/L (46-116); ANION GAP 6 mmol/L (5-15); ASPARTATE AMINO TRANSFERASE 28 U/L (15-37); BILIRUBIN,TOTAL 0.1 MG/DL (0.2-1.0); BLOOD UREA NITROGEN 28 mg/dL (7-18); CALCIUM 8.1 MG/DL (8.5-10.1); CARBON DIOXIDE 26 MMOL/L (21-32); CHLORIDE 110 MMOL/L (98-107); PHOSPHORUS 2.9 MG/DL (2.5-4.9); POTASSIUM 4.9 MMOL/L (3.5-5.1); SODIUM 142 MMOL/L (136-145)
--- NOTE | 2020-04-08 06:27 | Hematology/Onc Progress Note ---
Assessment/Plan Assessment/Plan Assessment and Recs # Anemia of iron deficiency, with a ferritin that is less than 50 recentrly --> Anemia workup has been ordered, rule out gi bleed --> recheck ferritin, occult was + --> No evidence of hemolysis is noted, peripheral smear has been reviewed. --> Hgb goal >7. Transfuse prn. --> IRon IV x 5 days started 04/06 as ferritin is low --> Medications have been reviewed --> low threshold for gi evaluation in case has occult + --> currently is on XARELTO --> as per Terrance, may need to hold if h /h lower --> hgb trend 8.2-->7.2 --> GI eval prn # Hypercoagulable disorder is on xarelto for afib with rvr --> reviewed cards recs --> if any further bleed, consider hold xarelto --> have dw Pcp --> monitor h/h # Leukocytoisis with gram neg pna, uti, sepsis, fevers, leukocytosis, a.flutter , respiratory failure, atx, dony, + ua, atx --> covid is neg --> abx svetlana and micafungin/polymyx --> as per id recs # Respiratory failure, on vent initially --> now extubated # Renal failure. --> improved # Diabetes. --> endo prn # Hypertension. --> per cards # Diabetes and hypertension, treatment per primary care team. --> a1c goal <8, acchuchecks qac and qhs # Patient with history of altered mental status. --> metabolic encephalopathy # Seizure history. # Chronic neck pain. # Lactic acidsis # HLD # Obesity Appreciate consultation and vanessa RN Subjective Constitutional: Denies: no symptoms, chills, fever, malaise, weakness, other HEENT: Denies: no symptoms, eye pain, blurred vision, tearing, double vision, ear pain, ear discharge, nose pain, nose congestion, throat pain, throat swelling, mouth pain, mouth swelling, other Cardiovascular: Denies: no symptoms, chest pain, edema, irregular heart rate, lightheadedness, palpitations, syncope, other Respiratory: Denies: no symptoms, cough, shortness of breath, SOB with excertion, SOB at rest, sputum, wheezing, other Gastrointestinal/Abdominal: Denies: no symptoms, abdomen distended, abdominal pain, black stools, tarry stools, blood in stool, constipated, diarrhea, difficulty swallowing, nausea, poor appetite, poor fluid intake, rectal bleeding , vomiting, other Genitourinary: Denies: no symptoms, burning, discharge, frequency, flank pain, hematuria, incontinence, pain, urgency, other Neurologic/Psychiatric: Denies: no symptoms, anxiety, depressed, emotional problems, headache, numbness, paresthesia, pre-existing deficit, seizure, tingling, tremors, weakness, other Endocrine: Denies: no symptoms, excessive sweating, flushing, intolerance to cold, intolerance to heat, increased hunger, increased thirst, increased urine, unexplained weight gain, unexplained weight loss, other Allergies: Coded Allergies: LISINOPRIL (Verified Allergy, Unknown, Hives, 04/12/14) Subjective 04/08 labs have been reviewed, no night sweats, eating overnight, labs pending Objective Objective Current Medications Medications (Trade) Dose Ordered Sig/Debbie Route PRN Reason Start Time Stop Time Status Last Admin Dose Admin Acetaminophen (Tylenol) 650 mg Q4H PRN NG Mild Pain (Pain Scale 1-3) 04/05/20 10:45 04/25/20 21:14 04/07/20 12:41 Acetaminophen (Tylenol) 650 mg Q4H PRN NG Temp >100.5 04/05/20 10:45 04/25/20 21:14 Al Hydroxide/Mg Hydroxide (Mylanta II) 30 ml Q6H PRN NG dyspepsia 04/05/20 10:45 04/25/20 21:14 Amiodarone HCl (Cordarone) 400 mg EVERY 12 HOURS NG 04/06/20 21:00 07/05/20 20:59 04/07/20 22:41 Bisacodyl (Dulcolax) 10 mg HSPRN PRN RECTAL Constipation 03/26/20 21:15 06/24/20 21:14 Chlorhexidine Gluconate (Laurie-Hex 2%) 1 applic DAILY@2000 TOPIC 03/28/20 20:00 06/26/20 19:59 04/07/20 22:41 Dextrose (Dextrose 50%) 25 ml Q30M PRN IV Hypoglycemia 03/26/20 21:15 06/24/20 21:14 Dextrose (Dextrose 50%) 50 ml Q30M PRN IV Hypoglycemia 03/26/20 21:15 06/24/20 21:14 Diltiazem HCl (Cardizem) 90 mg EVERY 8 HOURS NG 04/07/20 14:00 05/04/20 14:59 04/08/20 06:05 Diphenhydramine HCl (Benadryl) 25 mg Q6H PRN NG Itching/Pruritis 04/05/20 10:45 04/25/20 21:14 Docusate Sodium (Colace) 100 mg Q12HR NG 03/30/20 09:00 04/29/20 08:59 04/07/20 22:41 Gabapentin (Neurontin) 300 mg BEDTIME NG 04/05/20 21:00 04/26/20 20:59 04/07/20 22:40 Iron Sucrose 100 mg/Sodium Chloride 60 ml @ 240 mls/hr BEDTIME IV 04/06/20 21:00 04/10/20 21:14 04/07/20 22:40 Lorazepam (Ativan 2mg/ml 1ml) 1 mg Q4H PRN IV For Anxiety 04/03/20 09:15 04/08/20 13:14 04/07/20 04:45 Magnesium Hydroxide (Mom) 30 ml HSPRN PRN NG Constipation 04/05/20 10:45 04/25/20 21:14 Meropenem 1 gm/ Sodium Chloride 100 ml @ 200 mls/hr Q12HR IVPB 04/04/20 21:00 04/09/20 20:59 04/07/20 22:40 Metoclopramide HCl (Reglan) 10 mg Q6H PRN IVP Nausea & Vomiting 03/26/20 21:15 04/25/20 21:14 Micafungin Sodium 100 mg/Sodium Chloride 100 ml @ 100 mls/hr Q24H IVPB 04/04/20 20:00 04/11/20 19:59 04/07/20 22:39 Morphine Sulfate (Morphine Sulfate) 2 mg Q4H PRN IVP Moderate Pain (Pain Scale 4-6) 04/01/20 13:15 04/08/20 13:14 04/07/20 05:40 Morphine Sulfate (Morphine Sulfate) 4 mg Q4H PRN IVP Severe Pain (Pain Scale 7-10) 04/01/20 13:15 04/08/20 13:14 04/08/20 02:51 Ondansetron HCl (Zofran) 4 mg Q6H PRN IVP Nausea & Vomiting 03/26/20 21:15 04/25/20 21:14 Pantoprazole (Protonix) 40 mg DAILY IVP 04/01/20 09:00 05/01/20 08:59 04/07/20 09:18 Polyethylene Glycol (Miralax) 17 gm HSPRN PRN NG Constipation 04/05/20 10:45 04/25/20 21:14 Polymyxin B Sulfate 201029 units/Dextrose 500 ml @ 500 mls/hr EVERY 12 HOURS IVPB 04/05/20 21:00 04/12/20 20:59 04/07/20 22:39 Rivaroxaban (Xarelto) 15 mg DAILY NG 03/31/20 09:00 06/29/20 08:59 04/06/20 09:19 Temazepam (Restoril) 15 mg HSPRN PRN NG Insomnia 04/05/20 10:45 04/08/20 10:14 04/05/20 22:40 Last 24 Hour Vital Signs Date Time Temp Pulse Resp B/P (MAP) Pulse Ox O2 Delivery O2 Flow Rate FiO2 04/08/20 06:05 98 157/67 04/08/20 06:00 100 10 130/56 (80) 99 04/08/20 05:00 98 20 157/67 (97) 100 04/08/20 04:00 86 04/08/20 04:00 98.2 95 18 152/66 (94) 100 04/08/20 04:00 Nasal Cannula 2.0 04/08/20 03:21 98.2 04/08/20 03:00 90 14 140/79 (99) 100 04/08/20 02:00 93 20 135/69 (91) 100 04/08/20 01:00 89 18 148/56 (86) 100 04/08/20 00:00 Nasal Cannula 2.0 04/08/20 00:00 99.1 92 19 127/55 (79) 100 04/08/20 00:00 92 04/07/20 23:00 87 17 161/94 (116) 100 620/20 22:42 88 133/81 620/20 22:00 87 17 133/81 (98) 100 620/20 21:00 98.3 84 24 140/61 (87) 99 6/20/20 20:00 88 620/20 20:00 Nasal Cannula 2.0 620/20 20:00 84 22 139/61 (87) 100 620/20 19:00 90 18 101/53 (69) 100 62020 18:00 85 16 111/53 (72) 98 62020 16:58 90 12 117/48 (71) 98 620 16:00 97.9 88 12 121/58 (79) 98 620 16:00 Nasal Cannula 2.0 04/07/20 15:19 86 620 15:03 91 24 113/67 (82) 100 620 14:03 100 24 117/67 (84) 100 620 13:25 85 167/54 6 13:01 98.9 96 22 159/64 (95) 100 620 13:00 94 24 175/69 (104) 100 620 12:06 85 24 167/54 (91) 100 620 12:05 90 6 12:00 Nasal Cannula 2.0 04/07/20 11:00 106 24 148/65 (92) 100 620/20 10:00 97.3 93 17 144/65 (91) 100 620 09:00 94 16 126/53 (77) 100 620/20 08:00 92 62020 08:00 Nasal Cannula 2.0 620 08:00 88 16 124/47 (72) 100 62020 07:00 93 21 143/49 (80) 91 620 06:00 98 18 133/56 (81) 99 620/20 05:39 95 133/50 620/20 05:00 92 25 133/50 (77) 100 62020 04:00 95 620 04:00 Nasal Cannula 2.0 04/07/20 04:00 99.0 95 19 138/61 (86) 100 04/07/20 03:00 91 22 146/52 (83) 99 04/07/20 02:00 93 19 129/51 (77) 100 04/07/20 02:00 88 22 99 04/07/20 01:00 93 19 133/51 (78) 100 04/07/20 00:00 Nasal Cannula 2.0 04/07/20 00:00 98.6 92 22 141/61 (87) 99 04/07/20 00:00 90 04/07/20 00:00 97 04/06/20 23:00 93 22 155/65 (95) 100 04/06/20 22:00 96 18 154/68 (96) 100 04/06/20 21:31 100 137/58 04/06/20 21:00 91 12 137/58 (84) 100 04/06/20 20:30 92 23 130/73 (92) 76 04/06/20 20:15 94 17 136/60 (85) 84 04/06/20 20:00 98.8 89 14 136/64 (88) 84 04/06/20 20:00 92 04/06/20 20:00 Nasal Cannula 2.0 04/06/20 19:00 91 18 143/59 (87) 94 04/06/20 18:00 88 11 152/66 (94) 81 04/06/20 17:00 86 10 126/54 (78) 85 04/06/20 16:01 97 04/06/20 16:00 Nasal Cannula 2.0 04/06/20 16:00 97 16 132/56 (81) 95 04/06/20 16:00 2.0 04/06/20 15:00 92 19 134/59 (84) 100 04/06/20 14:00 94 19 136/52 (80) 100 04/06/20 13:21 93 110/56 04/06/20 13:00 92 24 150/55 (86) 100 04/06/20 12:00 2.0 04/06/20 12:00 Nasal Cannula 2.0 04/06/20 12:00 99.4 93 20 128/53 (78) 100 04/06/20 11:40 96 04/06/20 11:00 95 15 133/52 (79) 100 04/06/20 10:00 89 15 121/52 (75) 100 04/06/20 09:00 90 13 116/44 (68) 100 04/06/20 08:00 99.3 89 18 123/47 (72) 100 04/06/20 08:00 Nasal Cannula 2.0 04/06/20 08:00 2.0 04/06/20 07:53 90 04/06/20 07:00 95 18 117/46 (69) 100 Intake and Output 04/07/20 04/08/20 19:00 07:00 Intake Total 1250 ml 990 ml Output Total 790 ml 545 ml Balance 460 ml 445 ml Intake Oral 650 ml 30 ml IV Total 600 ml 960 ml Output Urine Total 790 ml 545 ml Labs Test 04/05/20 11:03 04/06/20 04:00 04/06/20 17:15 04/07/20 04:45 Arterial Blood pH 7.409 (7.350-7.450) Arterial Blood Partial Pressure CO2 38.6 mmHg (35.0-45.0) Arterial Blood Partial Pressure O2 112.4 mmHg (75.0-100.0) Arterial Blood HCO3 23.9 mmol/L (22.0-26.0) Arterial Blood Oxygen Saturation 97.5 % (95-100) Arterial Blood Base Excess -0.7 (-2-2) Kelvin Test Positive White Blood Count 10.7 K/UL (4.8-10.8) 9.2 K/UL (4.8-10.8) Red Blood Count 2.74 M/UL (4.20-5.40) 2.76 M/UL (4.20-5.40) Hemoglobin 7.2 G/DL (12.0-16.0) 7.0 G/DL (12.0-16.0) Hematocrit 24.1 % (37.0-47.0) 24.1 % (37.0-47.0) Mean Corpuscular Volume 88 FL (80-99) 87 FL (80-99) Mean Corpuscular Hemoglobin 26.3 PG (27.0-31.0) 25.4 PG (27.0-31.0) Mean Corpuscular Hemoglobin Concent 30.0 G/DL (32.0-36.0) 29.2 G/DL (32.0-36.0) Red Cell Distribution Width 20.8 % (11.6-14.8) 19.4 % (11.6-14.8) Platelet Count 243 K/UL (150-450) 246 K/UL (150-450) Mean Platelet Volume 8.0 FL (6.5-10.1) 8.0 FL (6.5-10.1) Neutrophils (%) (Auto) % (45.0-75.0) 77.7 % (45.0-75.0) Lymphocytes (%) (Auto) % (20.0-45.0) 12.1 % (20.0-45.0) Monocytes (%) (Auto) % (1.0-10.0) 8.1 % (1.0-10.0) Eosinophils (%) (Auto) % (0.0-3.0) 1.5 % (0.0-3.0) Basophils (%) (Auto) % (0.0-2.0) 0.6 % (0.0-2.0) Sodium Level 146 MMOL/L (136-145) 144 MMOL/L (136-145) Potassium Level 3.1 MMOL/L (3.5-5.1) 3.9 MMOL/L (3.5-5.1) Chloride Level 113 MMOL/L (98-107) 112 MMOL/L (98-107) Carbon Dioxide Level 27 MMOL/L (21-32) 26 MMOL/L (21-32) Anion Gap 6 mmol/L (5-15) 6 mmol/L (5-15) Blood Urea Nitrogen 49 mg/dL (7-18) 37 mg/dL (7-18) Creatinine 1.3 MG/DL (0.55-1.30) 1.2 MG/DL (0.55-1.30) Estimat Glomerular Filtration Rate 49.6 mL/min (>60) 54.3 mL/min (>60) Glucose Level 111 MG/DL (74-106) 105 MG/DL (74-106) Calcium Level 8.0 MG/DL (8.5-10.1) 8.0 MG/DL (8.5-10.1) Phosphorus Level 2.0 MG/DL (2.5-4.9) 2.7 MG/DL (2.5-4.9) Magnesium Level 1.6 MG/DL (1.8-2.4) 1.6 MG/DL (1.8-2.4) Iron Level 17 ug/dL (50-175) Total Iron Binding Capacity 95 ug/dL (250-450) Percent Iron Saturation 18 % (15-50) Unsaturated Iron Binding 78 ug/dL (112-346) Ferritin 110 NG/ML (8-388) Total Bilirubin 0.2 MG/DL (0.2-1.0) 0.2 MG/DL (0.2-1.0) Aspartate Amino Transf (AST/SGOT) 16 U/L (15-37) 10 U/L (15-37) Alanine Aminotransferase (ALT/SGPT) 10 U/L (12-78) 8 U/L (12-78) Alkaline Phosphatase 70 U/L (46-116) 68 U/L (46-116) Total Protein 5.0 G/DL (6.4-8.2) 5.0 G/DL (6.4-8.2) Albumin 1.4 G/DL (3.4-5.0) 1.4 G/DL (3.4-5.0) Globulin 3.6 g/dL 3.7 g/dL Albumin/Globulin Ratio 0.4 (1.0-2.7) 0.4 (1.0-2.7) Stool Occult Blood Positive (NEGATIVE) Differential Total Cells Counted 100 Neutrophils % (Manual) 79 % (45-75) Lymphocytes % (Manual) 13 % (20-45) Monocytes % (Manual) 6 % (1-10) Eosinophils % (Manual) 2 % (0-3) Basophils % (Manual) 0 % (0-2) Band Neutrophils 0 % (0-8) Platelet Estimate Adequate Platelet Morphology Normal Hypochromasia 3+ Anisocytosis 2+ Direct Bilirubin 0.1 MG/DL (0.0-0.3) Test 04/08/20 05:10 White Blood Count 10.4 K/UL (4.8-10.8) Red Blood Count 2.89 M/UL (4.20-5.40) Hemoglobin 7.5 G/DL (12.0-16.0) Hematocrit 25.3 % (37.0-47.0) Mean Corpuscular Volume 88 FL (80-99) Mean Corpuscular Hemoglobin 25.9 PG (27.0-31.0) Mean Corpuscular Hemoglobin Concent 29.6 G/DL (32.0-36.0) Red Cell Distribution Width 19.5 % (11.6-14.8) Platelet Count 264 K/UL (150-450) Mean Platelet Volume 6.7 FL (6.5-10.1) Neutrophils (%) (Auto) % (45.0-75.0) Lymphocytes (%) (Auto) % (20.0-45.0) Monocytes (%) (Auto) % (1.0-10.0) Eosinophils (%) (Auto) % (0.0-3.0) Basophils (%) (Auto) % (0.0-2.0) Sodium Level 142 MMOL/L (136-145) Potassium Level 4.9 MMOL/L (3.5-5.1) Chloride Level 110 MMOL/L (98-107) Carbon Dioxide Level 26 MMOL/L (21-32) Anion Gap 6 mmol/L (5-15) Blood Urea Nitrogen 28 mg/dL (7-18) Creatinine 1.0 MG/DL (0.55-1.30) Estimat Glomerular Filtration Rate > 60 mL/min (>60) Glucose Level 85 MG/DL (74-106) Calcium Level 8.1 MG/DL (8.5-10.1) Phosphorus Level 2.9 MG/DL (2.5-4.9) Magnesium Level 1.8 MG/DL (1.8-2.4) Total Bilirubin 0.1 MG/DL (0.2-1.0) Aspartate Amino Transf (AST/SGOT) 28 U/L (15-37) Alanine Aminotransferase (ALT/SGPT) 7 U/L (12-78) Alkaline Phosphatase 78 U/L (46-116) Total Protein 4.9 G/DL (6.4-8.2) Albumin 1.5 G/DL (3.4-5.0) Globulin 3.4 g/dL Albumin/Globulin Ratio 0.4 (1.0-2.7) Height (Feet): 5 Height (Inches): 6.00 Weight (Pounds): 296 Objective Physical Exam Sp02 EP Interpretation: reviewed, normal General: Patient appears chronically ill Head: normocephalic, atraumatic ++ngt Respiratory: , crackles - both lower lobes Cardiovascular: tachycardia Gastrointestinal: non tender, soft Musculoskeletal: other - Patient appears chronically debilitated both lower extremities are extended Neurologic: other - Some verbal response, but chronic disability Skin: no rash : ++Virgil Chowdhury MD Apr 08, 2020 06:27
--- NOTE | 2020-04-08 07:30 | NUR ---
NURSE NOTES: Received change of shift report from John Dior RN. Pt is awake, alert, oriented x4, on 2L of oxygen via nasal cannula. 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 Temp 98.9F axillary. Pt has left upper arm double lumen PICC, patent/intact, dressing dry/intact. Left arm has moderate to severe edema, warm to the touch, with limited movement. Abdomen is large, round, soft, nontender to touch with active bowel sounds. Desai catheter is noted, draining, clear/yellow urine to gravity. Skin alterations are noted on sacral, left shoulder and left abdominal areas, covered with optifoam dressings. Pt is on pressure releasing mattress. HOB at semi-bustamante's, bed locked, in lowest position, three side rails up, and call light is placed within easy reach. Will continue to monitor pt and follow plan of care per MD orders and protocol.
--- NOTE | 2020-04-08 08:00 | NUR ---
NURSE NOTES: Pt was reassessed for Morphine that was administered by previous shift nurse. Pt reports pain relief, and is now eating breakfast with stable vital signs.
[2020-04-08] MEDS: Docusate 100mg/10ml Liq NG SCH (08:34)
[2020-04-08] MEDS: Polymyxin B Sulfate 500,000 UNITS in D5W 500ml 500 ML IVPB SCH ×2 (08:34→22:11)
[2020-04-08] MEDS: Pantoprazole Inj IVP SCH (08:35)
[2020-04-08] MEDS: Amiodarone 200mg tab NG SCH (08:35)
[2020-04-08] MEDS: Xarelto 15mg tab NG SCH (08:35)
--- NOTE | 2020-04-08 09:30 | NUR ---
NURSE NOTES: AM meds were administered. IV lines and TKO NS fluid bag were changed and dated.
--- NOTE | 2020-04-08 11:06 | NUR ---
NURSE NOTES: Pt was administered Morphine 4mg IVP per PRN order for severe pain, as pt reports severe generalized body pain due to arthritis. VS currently remain stable. Will continue to monitor.
--- NOTE | 2020-04-08 12:13 | Pulmonology Progress Note ---
Subjective ROS Limited/Unobtainable: Yes Interval Events: Extubated 04/05/20; doing well on 2L/min O2 Constitutional: Reports: other - extubated ; Denies: fever, fatigue HEENT: Repors: no symptoms Respiratory: Reports: no symptoms Cardiovascular: Reports: no symptoms Gastrointestinal/Abdominal: Denies: nausea, vomiting, diarrhea Genitourinary: Reports: no symptoms Psychiatric: Denies: depression Skin: Denies: rash Musculoskeletal: Denies: pain Allergies: Coded Allergies: LISINOPRIL (Verified Allergy, Unknown, Hives, 04/12/14) Objective Last 24 Hour Vital Signs Date Time Temp Pulse Resp B/P (MAP) Pulse Ox O2 Delivery O2 Flow Rate FiO2 04/08/20 11:00 97 25 140/62 (88) 96 04/08/20 10:00 99 24 112/52 (72) 100 04/08/20 09:00 103 19 143/83 (103) 99 04/08/20 08:00 98 22 138/85 (102) 100 04/08/20 08:00 102 04/08/20 08:00 Nasal Cannula 2.0 04/08/20 07:39 98.2 04/08/20 07:00 99.0 105 19 125/67 (86) 100 04/08/20 06:05 98 157/67 04/08/20 06:00 100 10 130/56 (80) 99 04/08/20 05:00 98 20 157/67 (97) 100 04/08/20 04:00 86 04/08/20 04:00 98.2 95 18 152/66 (94) 100 04/08/20 04:00 Nasal Cannula 2.0 04/08/20 03:00 90 14 140/79 (99) 100 04/08/20 02:00 93 20 135/69 (91) 100 04/08/20 01:00 89 18 148/56 (86) 100 04/08/20 00:00 Nasal Cannula 2.0 04/08/20 00:00 99.1 92 19 127/55 (79) 100 04/08/20 00:00 92 04/07/20 23:00 87 17 161/94 (116) 100 04/07/20 22:42 88 133/81 04/07/20 22:00 87 17 133/81 (98) 100 04/07/20 21:00 98.3 84 24 140/61 (87) 99 04/07/20 20:00 88 04/07/20 20:00 Nasal Cannula 2.0 04/07/20 20:00 84 22 139/61 (87) 100 04/07/20 19:00 90 18 101/53 (69) 100 04/07/20 18:00 85 16 111/53 (72) 98 04/07/20 16:58 90 12 117/48 (71) 98 04/07/20 16:00 97.9 88 12 121/58 (79) 98 04/07/20 16:00 Nasal Cannula 2.0 04/07/20 15:19 86 04/07/20 15:03 91 24 113/67 (82) 100 04/07/20 14:03 100 24 117/67 (84) 100 04/07/20 13:25 85 167/54 04/07/20 13:01 98.9 96 22 159/64 (95) 100 04/07/20 13:00 94 24 175/69 (104) 100 Intake and Output 04/07/20 04/08/20 19:00 07:00 Intake Total 1250 ml 990 ml Output Total 790 ml 605 ml Balance 460 ml 385 ml Intake Oral 650 ml 30 ml IV Total 600 ml 960 ml Output Urine Total 790 ml 605 ml General Appearance: no acute distress HEENT: normocephalic Respiratory: chest wall non-tender, lungs clear Cardiovascular: normal peripheral pulses, normal rate Abdomen: normal bowel sounds Laboratory Tests 04/08/20 04:00: Stool Occult Blood [Pending] 04/08/20 05:10: White Blood Count 10.4, Red Blood Count 2.89L, Hemoglobin 7.5L, Hematocrit 25.3L , Mean Corpuscular Volume 88, Mean Corpuscular Hemoglobin 25.9L, Mean Corpuscular Hemoglobin Concent 29.6L, Red Cell Distribution Width 19.5H, Platelet Count 264, Mean Platelet Volume 6.7, Neutrophils (%) (Auto) , Lymphocytes (%) (Auto) , Monocytes (%) (Auto) , Eosinophils (%) (Auto) , Basophils (%) (Auto) , Differential Total Cells Counted 100, Neutrophils % ( Manual) 78H, Lymphocytes % (Manual) 15L, Monocytes % (Manual) 7, Eosinophils % ( Manual) 0, Basophils % (Manual) 0, Band Neutrophils 0, Platelet Estimate Adequate, Platelet Morphology Normal, Hypochromasia 1+, Anisocytosis 1+, Sodium Level 142, Potassium Level 4.9, Chloride Level 110H, Carbon Dioxide Level 26, Anion Gap 6, Blood Urea Nitrogen 28H, Creatinine 1.0, Estimat Glomerular Filtration Rate > 60, Glucose Level 85, Calcium Level 8.1L, Phosphorus Level 2.9 , Magnesium Level 1.8, Total Bilirubin 0.1L, Aspartate Amino Transf (AST/SGOT) 28, Alanine Aminotransferase (ALT/SGPT) 7L, Alkaline Phosphatase 78, Total Protein 4.9L, Albumin 1.5L, Globulin 3.4, Albumin/Globulin Ratio 0.4L Current Medications Medications (Trade) Dose Ordered Sig/Debbie Route PRN Reason Start Time Stop Time Status Last Admin Dose Admin Acetaminophen (Tylenol) 650 mg Q4H PRN NG Mild Pain (Pain Scale 1-3) 04/05/20 10:45 04/25/20 21:14 04/07/20 12:41 Acetaminophen (Tylenol) 650 mg Q4H PRN NG Temp >100.5 04/05/20 10:45 04/25/20 21:14 Al Hydroxide/Mg Hydroxide (Mylanta II) 30 ml Q6H PRN NG dyspepsia 04/05/20 10:45 04/25/20 21:14 Amiodarone HCl (Cordarone) 400 mg EVERY 12 HOURS NG 04/06/20 21:00 07/05/20 20:59 04/08/20 08:35 Bisacodyl (Dulcolax) 10 mg HSPRN PRN RECTAL Constipation 03/26/20 21:15 06/24/20 21:14 Chlorhexidine Gluconate (Laurie-Hex 2%) 1 applic DAILY@1999 TOPIC 03/28/20 20:00 06/26/20 19:59 04/07/20 22:41 Dextrose (Dextrose 50%) 25 ml Q30M PRN IV Hypoglycemia 03/26/20 21:15 06/24/20 21:14 Dextrose (Dextrose 50%) 50 ml Q30M PRN IV Hypoglycemia 03/26/20 21:15 06/24/20 21:14 Diltiazem HCl (Cardizem) 90 mg EVERY 8 HOURS NG 04/07/20 14:00 05/04/20 14:59 04/08/20 06:05 Diphenhydramine HCl (Benadryl) 25 mg Q6H PRN NG Itching/Pruritis 04/05/20 10:45 04/25/20 21:14 Docusate Sodium (Colace) 100 mg Q12HR NG 03/30/20 09:00 04/29/20 08:59 04/08/20 08:34 Gabapentin (Neurontin) 300 mg BEDTIME NG 04/05/20 21:00 04/26/20 20:59 04/07/20 22:40 Iron Sucrose 100 mg/Sodium Chloride 60 ml @ 240 mls/hr BEDTIME IV 04/06/20 21:00 04/10/20 21:14 04/07/20 22:40 Lorazepam (Ativan 2mg/ml 1ml) 1 mg Q4H PRN IV For Anxiety 04/03/20 09:15 04/08/20 13:14 04/07/20 04:45 Magnesium Hydroxide (Mom) 30 ml HSPRN PRN NG Constipation 04/05/20 10:45 04/25/20 21:14 Meropenem 1 gm/ Sodium Chloride 100 ml @ 200 mls/hr Q12HR IVPB 04/04/20 21:00 04/10/20 20:59 04/08/20 08:34 Metoclopramide HCl (Reglan) 10 mg Q6H PRN IVP Nausea & Vomiting 03/26/20 21:15 04/25/20 21:14 Micafungin Sodium 100 mg/Sodium Chloride 100 ml @ 100 mls/hr Q24H IVPB 04/04/20 20:00 04/11/20 19:59 04/07/20 22:39 Morphine Sulfate (Morphine Sulfate) 2 mg Q4H PRN IVP Moderate Pain (Pain Scale 4-6) 04/01/20 13:15 04/08/20 13:14 04/07/20 05:40 Morphine Sulfate (Morphine Sulfate) 4 mg Q4H PRN IVP Severe Pain (Pain Scale 7-10) 04/01/20 13:15 04/08/20 13:14 04/08/20 11:06 Ondansetron HCl (Zofran) 4 mg Q6H PRN IVP Nausea & Vomiting 03/26/20 21:15 04/25/20 21:14 Pantoprazole (Protonix) 40 mg DAILY IVP 04/01/20 09:00 05/01/20 08:59 04/08/20 08:35 Polyethylene Glycol (Miralax) 17 gm HSPRN PRN NG Constipation 04/05/20 10:45 04/25/20 21:14 Polymyxin B Sulfate 585637 units/Dextrose 500 ml @ 500 mls/hr EVERY 12 HOURS IVPB 04/05/20 21:00 04/12/20 20:59 04/08/20 08:34 Rivaroxaban (Xarelto) 15 mg DAILY NG 03/31/20 09:00 06/29/20 08:59 04/08/20 08:35 Assessment/Plan Assessment/Plan IMPRESSION: 1. Hyperkalemia. Corrected 2. Tachycardia; resolved 3. Sepsis 4. Hypertension. 5. Seizure disorder. 6. Acute renal failure. 7. Respiratory failure; extubated 04/05/20 DISCUSSION: Continue ICU care Correction of electrolytes Now on 2L/min O2 Desai/colostomy care Swallow eval Seven Yao Omar Syed MD Apr 08, 2020 12:13
[2020-04-08 12:17] LABS: HEMATOCRIT 24.8 % (37.0-47.0); HEMOGLOBIN 7.2 G/DL (12.0-16.0); MEAN CORPUSCULAR VOLUME 88 FL (80-99); PLATELET COUNT 257 K/UL (150-450); RED BLOOD COUNT 2.81 M/UL (4.20-5.40); RED CELL DISTRIBUTION WIDTH 19.4 % (11.6-14.8); WHITE BLOOD COUNT 10.9 K/UL (4.8-10.8)
--- NOTE | 2020-04-08 12:39 | General Progress Note ---
Assessment/Plan Status: stable Assessment/Plan: Status Narrative #Acute Hypoxic Resp Failure- resolved #Afib w/ RVR, now in SR, off heparin gtt and on Xarelto #Acute Renal Failure 2/2 ATN from Rhabo --> BUN and creatinine still very elevated, consider HD if concern of Uremic Encephalopathy; slowly improving #Rhabdo #Sepsis, HCAP/UTI, COVID negative , + ESBL --> Sputum w/ multiple MDR organisms , now requiring aggressive AB #Seizure vs prolonged period of immobility --> once extubated will investigate cause of Rhabdo and try to discern more info #Hx of Colectomy w/ Colostomy #GI Bleed, Acute Anemia due to blood loss, Iron Deficient Plan Appreciate Consultants and ICU team Extubated and satting well on NC Now Meropenem, Micagungin, Polymoxin, S/P Vancomyin, Cefepime, Flagyl Amiodarone PO, Diltiazem PO, s/p drips DC AC given drop in Hb and + FOBT -> Trend CBC, transfuse for Hb < 7, GI consult (Dr Boyd) [place] Bag care IVF per Nephro, may require HD given renal function but output good DVT and GI ppx; Tube Feeds * Will need to follow up why patient had Rhabdo? if Seizure hx could be uncontrolled seizure and then a neuro consult would be needed. Will look into s/ p extubation 04/02: Vent weening; f/u w/ ID recs regarding WBC and ongoing AB 04/03: Unable to wean patient as she has become hemodynamically unstable with elevated heart rate with atrial flutter in the 170s. Currently she is on amiodarone and Cardizem drip and did receive digoxin without good response today. We have recultured her , todd on broad-spectrum antibiotics with vancomycin, cefepime, Flagyl. Appreciate consultants. FiO2 at 35% on AC. Monitor urine output. 04/04: Remains on Cardizem and Amiodarone gtt; Patient unable to ween. Anticipate placing on Carbapenem. 04/05: WBC improving, Now on Carbapenem; anticipate extubation today. Amio and Cardizem PO 04/06: Continue Meropenem, Micafungin, and Polymoxin. Pending SOBT; continue IV iron. Downgrade if stable later today and ok w/ pulm. Will order swallow eval 04/07: HDS, Resp stable, +FOBT w/ Hb 7.2 -> 7.0, AC held, will DC. GI to evaluate Subjective Date patient seen: Apr 08, 2020 Time patient seen: 12:37 ROS Limited/Unobtainable: No Allergies: Coded Allergies: LISINOPRIL (Verified Allergy, Unknown, Hives, 04/12/14) Subjective Feels much better today, denied any cp/sob/n/v/abd pain, would like to leave ICU to regular floor, says it feels "like a skilled nursing." Objective Last 24 Hour Vital Signs Date Time Temp Pulse Resp B/P (MAP) Pulse Ox O2 Delivery O2 Flow Rate FiO2 04/08/20 11:36 98.2 04/08/20 11:00 97 25 140/62 (88) 96 04/08/20 10:00 99 24 112/52 (72) 100 04/08/20 09:00 103 19 143/83 (103) 99 04/08/20 08:00 98 22 138/85 (102) 100 04/08/20 08:00 102 04/08/20 08:00 Nasal Cannula 2.0 04/08/20 07:00 99.0 105 19 125/67 (86) 100 04/08/20 06:05 98 157/67 04/08/20 06:00 100 10 130/56 (80) 99 04/08/20 05:00 98 20 157/67 (97) 100 04/08/20 04:00 86 04/08/20 04:00 98.2 95 18 152/66 (94) 100 04/08/20 04:00 Nasal Cannula 2.0 04/08/20 03:00 90 14 140/79 (99) 100 04/08/20 02:00 93 20 135/69 (91) 100 04/08/20 01:00 89 18 148/56 (86) 100 04/08/20 00:00 Nasal Cannula 2.0 04/08/20 00:00 99.1 92 19 127/55 (79) 100 04/08/20 00:00 92 04/07/20 23:00 87 17 161/94 (116) 100 04/07/20 22:42 88 133/81 04/07/20 22:00 87 17 133/81 (98) 100 04/07/20 21:00 98.3 84 24 140/61 (87) 99 04/07/20 20:00 88 04/07/20 20:00 Nasal Cannula 2.0 04/07/20 20:00 84 22 139/61 (87) 100 04/07/20 19:00 90 18 101/53 (69) 100 04/07/20 18:00 85 16 111/53 (72) 98 04/07/20 16:58 90 12 117/48 (71) 98 04/07/20 16:00 97.9 88 12 121/58 (79) 98 04/07/20 16:00 Nasal Cannula 2.0 04/07/20 15:19 86 04/07/20 15:03 91 24 113/67 (82) 100 04/07/20 14:03 100 24 117/67 (84) 100 04/07/20 13:25 85 167/54 04/07/20 13:01 98.9 96 22 159/64 (95) 100 04/07/20 13:00 94 24 175/69 (104) 100 Intake and Output 04/07/20 04/08/20 19:00 07:00 Intake Total 1250 ml 990 ml Output Total 790 ml 605 ml Balance 460 ml 385 ml Intake Oral 650 ml 30 ml IV Total 600 ml 960 ml Output Urine Total 790 ml 605 ml Laboratory Tests 04/08/20 04:00: Stool Occult Blood [Pending] 04/08/20 05:10: White Blood Count 10.4, Red Blood Count 2.89L, Hemoglobin 7.5L, Hematocrit 25.3L , Mean Corpuscular Volume 88, Mean Corpuscular Hemoglobin 25.9L, Mean Corpuscular Hemoglobin Concent 29.6L, Red Cell Distribution Width 19.5H, Platelet Count 264, Mean Platelet Volume 6.7, Neutrophils (%) (Auto) , Lymphocytes (%) (Auto) , Monocytes (%) (Auto) , Eosinophils (%) (Auto) , Basophils (%) (Auto) , Differential Total Cells Counted 100, Neutrophils % ( Manual) 78H, Lymphocytes % (Manual) 15L, Monocytes % (Manual) 7, Eosinophils % ( Manual) 0, Basophils % (Manual) 0, Band Neutrophils 0, Platelet Estimate Adequate, Platelet Morphology Normal, Hypochromasia 1+, Anisocytosis 1+, Sodium Level 142, Potassium Level 4.9, Chloride Level 110H, Carbon Dioxide Level 26, Anion Gap 6, Blood Urea Nitrogen 28H, Creatinine 1.0, Estimat Glomerular Filtration Rate > 60, Glucose Level 85, Calcium Level 8.1L, Phosphorus Level 2.9 , Magnesium Level 1.8, Total Bilirubin 0.1L, Aspartate Amino Transf (AST/SGOT) 28, Alanine Aminotransferase (ALT/SGPT) 7L, Alkaline Phosphatase 78, Total Protein 4.9L, Albumin 1.5L, Globulin 3.4, Albumin/Globulin Ratio 0.4L 04/08/20 12:00: White Blood Count 10.9H, Red Blood Count 2.81L, Hemoglobin 7.2L, Hematocrit 24.8L, Mean Corpuscular Volume 88, Mean Corpuscular Hemoglobin 25.6L, Mean Corpuscular Hemoglobin Concent 29.1L, Red Cell Distribution Width 19.4H, Platelet Count 257, Mean Platelet Volume 7.5, Neutrophils (%) (Auto) , Lymphocytes (%) (Auto) , Monocytes (%) (Auto) , Eosinophils (%) (Auto) , Basophils (%) (Auto) , Neutrophils % (Manual) [Pending], Lymphocytes % (Manual) [Pending], Platelet Estimate [Pending], Platelet Morphology [Pending] Height (Feet): 5 Height (Inches): 6.00 Weight (Pounds): 296 Objective General: alert, cooperative, no distress, appears stated age Head: normocephalic, without obvious abnormality, atraumatic Eyes: conjunctivae/corneas clear. PERRL, EOM's intact Throat: lips, mucosa, and tongue normal. MMM Neck: supple, symmetrical, trachea midline, and no JVD Lungs: clear to auscultation bilaterally Heart: regular rate and rhythm, S1, S2 normal, no murmur, click, rub or gallop Abdomen: soft, non-tender, non-distended, bowel sounds normal; no masses or organomegaly Extremities: extremities normal, atraumatic, no cyanosis or edema Pulses: 2+ and symmetric Skin: skin color, texture, turgor normal; no rashes or lesions Neurologic: grossly normal, no focal deficits Malathi Mendez MD Apr 08, 2020 12:39
--- NOTE | 2020-04-08 12:59 | Nephrology Progress Note ---
Assessment/Plan Plan #VENTURA due to ATN in the setting of rhabdo- on CKD #hyperkalemia #Rhabdo #UTI sepsis #Lactic acidsis #AMS - toxic metabolic encephalopathy #Hypoxemic resp failure #afib with RVR #HLD #Obesity - monitor UOP - replete lytes - monitor K,bmp - weiss placed - strict I&Os - cardiology eval - amiodarone, diltiazem - IV iron - monitor hemoglobin - ID consult- - antibiotics per ID - follow cx - monitor BMP, mag and phos daily - PT 30 minutes of critical care time- greater than 50% on care coordination and counseling Subjective ROS Limited/Unobtainable: No Constitutional: Denies: no symptoms, chills, diaphoresis, fever, malaise, weakness, other HEENT: Denies: no symptoms, eye pain, blurred vision, tearing, double vision, ear pain, ear discharge, nose pain, nose congestion, throat pain, throat swelling, mouth pain, mouth swelling, other Genitourinary: Denies: no symptoms, burning, discharge, frequency, flank pain, hematuria, incontinence, pain, urgency, other Neurologic/Psychiatric: Denies: no symptoms, anxiety, depressed, emotional problems, headache, numbness, paresthesia, pre-existing deficit, seizure, tingling, tremors, weakness, other Subjective Cr stable very weak WBC downtrended mag low -repleted on broad abx per ID Hr controlled Objective Objective Last 24 Hour Vital Signs Date Time Temp Pulse Resp B/P (MAP) Pulse Ox O2 Delivery O2 Flow Rate FiO2 04/08/20 12:00 101 04/08/20 12:00 98.9 100 17 157/67 (97) 100 04/08/20 12:00 Nasal Cannula 2.0 04/08/20 11:36 98.2 04/08/20 11:00 97 25 140/62 (88) 96 04/08/20 10:00 99 24 112/52 (72) 100 04/08/20 09:00 103 19 143/83 (103) 99 04/08/20 08:00 98 22 138/85 (102) 100 04/08/20 08:00 102 04/08/20 08:00 Nasal Cannula 2.0 04/08/20 07:00 99.0 105 19 125/67 (86) 100 04/08/20 06:05 98 157/67 04/08/20 06:00 100 10 130/56 (80) 99 04/08/20 05:00 98 20 157/67 (97) 100 04/08/20 04:00 86 04/08/20 04:00 98.2 95 18 152/66 (94) 100 04/08/20 04:00 Nasal Cannula 2.0 04/08/20 03:00 90 14 140/79 (99) 100 04/08/20 02:00 93 20 135/69 (91) 100 04/08/20 01:00 89 18 148/56 (86) 100 04/08/20 00:00 Nasal Cannula 2.0 04/08/20 00:00 99.1 92 19 127/55 (79) 100 04/08/20 00:00 92 04/07/20 23:00 87 17 161/94 (116) 100 04/07/20 22:42 88 133/81 04/07/20 22:00 87 17 133/81 (98) 100 04/07/20 21:00 98.3 84 24 140/61 (87) 99 04/07/20 20:00 88 04/07/20 20:00 Nasal Cannula 2.0 04/07/20 20:00 84 22 139/61 (87) 100 04/07/20 19:00 90 18 101/53 (69) 100 04/07/20 18:00 85 16 111/53 (72) 98 04/07/20 16:58 90 12 117/48 (71) 98 04/07/20 16:00 97.9 88 12 121/58 (79) 98 04/07/20 16:00 Nasal Cannula 2.0 04/07/20 15:19 86 04/07/20 15:03 91 24 113/67 (82) 100 04/07/20 14:03 100 24 117/67 (84) 100 04/07/20 13:25 85 167/54 04/07/20 13:01 98.9 96 22 159/64 (95) 100 04/07/20 13:00 94 24 175/69 (104) 100 Intake and Output 04/07/20 04/08/20 19:00 07:00 Intake Total 1250 ml 990 ml Output Total 790 ml 605 ml Balance 460 ml 385 ml Intake Oral 650 ml 30 ml IV Total 600 ml 960 ml Output Urine Total 790 ml 605 ml Laboratory Tests 04/08/20 04:00: Stool Occult Blood [Pending] 04/08/20 05:10: White Blood Count 10.4, Red Blood Count 2.89L, Hemoglobin 7.5L, Hematocrit 25.3L , Mean Corpuscular Volume 88, Mean Corpuscular Hemoglobin 25.9L, Mean Corpuscular Hemoglobin Concent 29.6L, Red Cell Distribution Width 19.5H, Platelet Count 264, Mean Platelet Volume 6.7, Neutrophils (%) (Auto) , Lymphocytes (%) (Auto) , Monocytes (%) (Auto) , Eosinophils (%) (Auto) , Basophils (%) (Auto) , Differential Total Cells Counted 100, Neutrophils % ( Manual) 78H, Lymphocytes % (Manual) 15L, Monocytes % (Manual) 7, Eosinophils % ( Manual) 0, Basophils % (Manual) 0, Band Neutrophils 0, Platelet Estimate Adequate, Platelet Morphology Normal, Hypochromasia 1+, Anisocytosis 1+, Sodium Level 142, Potassium Level 4.9, Chloride Level 110H, Carbon Dioxide Level 26, Anion Gap 6, Blood Urea Nitrogen 28H, Creatinine 1.0, Estimat Glomerular Filtration Rate > 60, Glucose Level 85, Calcium Level 8.1L, Phosphorus Level 2.9 , Magnesium Level 1.8, Total Bilirubin 0.1L, Aspartate Amino Transf (AST/SGOT) 28, Alanine Aminotransferase (ALT/SGPT) 7L, Alkaline Phosphatase 78, Total Protein 4.9L, Albumin 1.5L, Globulin 3.4, Albumin/Globulin Ratio 0.4L 04/08/20 12:00: White Blood Count 10.9H, Red Blood Count 2.81L, Hemoglobin 7.2L, Hematocrit 24.8L, Mean Corpuscular Volume 88, Mean Corpuscular Hemoglobin 25.6L, Mean Corpuscular Hemoglobin Concent 29.1L, Red Cell Distribution Width 19.4H, Platelet Count 257, Mean Platelet Volume 7.5, Neutrophils (%) (Auto) , Lymphocytes (%) (Auto) , Monocytes (%) (Auto) , Eosinophils (%) (Auto) , Basophils (%) (Auto) , Neutrophils % (Manual) [Pending], Lymphocytes % (Manual) [Pending], Platelet Estimate [Pending], Platelet Morphology [Pending] Height (Feet): 5 Height (Inches): 6.00 Weight (Pounds): 296 Objective General Appearance: other - intubated Lines, tubes and drains: peripheral HEENT: normocephalic, atraumatic Neck: non-tender, normal alignment, supple Respiratory/Chest: lungs clear Cardiovascular/Chest: normal peripheral pulses, tachycardia, irregularly irregular Abdomen: soft Skin Exam: normal pigmentation Neurologic: disoriented Venkat Montes M.D. Apr 08, 2020 12:59
--- NOTE | 2020-04-08 13:30 | NUR ---
NURSE NOTES: Dr Cordova was notified regarding my assessment finding of pt's left upper arm severe edema, very warm to the touch and pt's reports of being unable to move the involved extremity due to pain. MD also aware this arm currently has double lumen PICC line, which was inserted on 03/28/2020 and dressing is intact/dry which was done on 04/03/20. Per MD, okay to leave PICC line in place for now, while we order for STAT duplex of the arm and wait for the results. Temp 99.8F axillary. Pt is currently having lunch and watching TV, while maintained on 2L of oxygen via nasal cannula at 100% O2Sat. Last Morphine 4mg was administered at 1106 this morning for reports of severe generalized arthritic pain, which pt reports relief after med-admin.
--- NOTE | 2020-04-08 14:00 | NUR ---
HAND-OFF: Report given to Sharon ARCOS. Endorsed plan of care, including pending STAT venous duplex for upper extremities, waiting for piano technician. VS remain stable.
--- NOTE | 2020-04-08 14:05 | NUR ---
NURSE NOTES: Report received from JOSSELYN March. Pt is wide awake and able to verbalize needs. Able to follow commands. SR with flutter on director of cardiac rehabilitation. On 2L N/C. O2 sat 100%. Temp 99.0 axillary. Left colostomy bag draining pasty brown BM. Desai in place draining to gravity. ANY PICC line patent and asymptomatic. Left lower arm swollen and warm to touch and elevated with pillow. Bed in lowest position. Side rails up x3. Will resume plan of care.
--- NOTE | 2020-04-08 14:05 | NUR ---
NURSE NOTES: Report received from JOSSELYN March. Pt is alert, awake, and oriented x3, eating in bed. ST with flutter 103-105 on monitoring coordinator. On N/C 2L. Desai in place draining to gravity. ANY PICC line patent and asymptomatic, open for TKO. Left arm swollen and warm to touch and elevated with pillow. Left colostomy bag intact and draining to gravity. Bed in lowest position. Side rails up x3. Call light within reach. Will continue to monitor.
--- NOTE | 2020-04-08 14:15 | NUR ---
NURSE NOTES: Called Radiology to call on-call [employer] technical lead senior developer to do STAT venous duplex on left arm. Awaiting call back.
--- NOTE | 2020-04-08 15:08 | Surgery Progress Note ---
Surgery Progress Note Subjective Additional Comments doing well tolerating diet labs noted exam stable downgrade Objective Last 24 Hour Vital Signs Date Time Temp Pulse Resp B/P (MAP) Pulse Ox O2 Delivery O2 Flow Rate FiO2 04/08/20 15:00 99 22 150/26 (67) 100 04/08/20 14:00 104 10 149/71 (97) 99 04/08/20 13:09 101 157/67 04/08/20 13:00 102 16 161/62 (95) 98 04/08/20 12:00 101 04/08/20 12:00 98.9 100 17 157/67 (97) 100 04/08/20 12:00 Nasal Cannula 2.0 04/08/20 11:36 98.2 04/08/20 11:00 97 25 140/62 (88) 96 04/08/20 10:00 99 24 112/52 (72) 100 04/08/20 09:00 103 19 143/83 (103) 99 04/08/20 08:00 98 22 138/85 (102) 100 04/08/20 08:00 102 04/08/20 08:00 Nasal Cannula 2.0 04/08/20 07:00 99.0 105 19 125/67 (86) 100 04/08/20 06:05 98 157/67 04/08/20 06:00 100 10 130/56 (80) 99 04/08/20 05:00 98 20 157/67 (97) 100 04/08/20 04:00 86 04/08/20 04:00 98.2 95 18 152/66 (94) 100 04/08/20 04:00 Nasal Cannula 2.0 04/08/20 03:00 90 14 140/79 (99) 100 04/08/20 02:00 93 20 135/69 (91) 100 04/08/20 01:00 89 18 148/56 (86) 100 04/08/20 00:00 Nasal Cannula 2.0 04/08/20 00:00 99.1 92 19 127/55 (79) 100 04/08/20 00:00 92 04/07/20 23:00 87 17 161/94 (116) 100 04/07/20 22:42 88 133/81 04/07/20 22:00 87 17 133/81 (98) 100 04/07/20 21:00 98.3 84 24 140/61 (87) 99 04/07/20 20:00 88 04/07/20 20:00 Nasal Cannula 2.0 04/07/20 20:00 84 22 139/61 (87) 100 04/07/20 19:00 90 18 101/53 (69) 100 04/07/20 18:00 85 16 111/53 (72) 98 04/07/20 16:58 90 12 117/48 (71) 98 04/07/20 16:00 97.9 88 12 121/58 (79) 98 04/07/20 16:00 Nasal Cannula 2.0 04/07/20 15:19 86 I&O Intake and Output 04/07/20 04/08/20 19:00 07:00 Intake Total 1250 ml 990 ml Output Total 790 ml 605 ml Balance 460 ml 385 ml Intake Oral 650 ml 30 ml IV Total 600 ml 960 ml Output Urine Total 790 ml 605 ml Dressing: other Wound: other Drains: other Cardiovascular: RSR Respiratory: decreased breath sounds Abdomen: soft, non-tender, present bowel sounds Extremities: edema, no cyanosis, other Laboratory Tests Test 04/08/20 04:00 04/08/20 05:10 04/08/20 12:00 Stool Occult Blood Positive (NEGATIVE) White Blood Count 10.4 K/UL (4.8-10.8) 10.9 K/UL (4.8-10.8) H Red Blood Count 2.89 M/UL (4.20-5.40) L 2.81 M/UL (4.20-5.40) L Hemoglobin 7.5 G/DL (12.0-16.0) L 7.2 G/DL (12.0-16.0) L Hematocrit 25.3 % (37.0-47.0) L 24.8 % (37.0-47.0) L Mean Corpuscular Volume 88 FL (80-99) 88 FL (80-99) Mean Corpuscular Hemoglobin 25.9 PG (27.0-31.0) L 25.6 PG (27.0-31.0) L Mean Corpuscular Hemoglobin Concent 29.6 G/DL (32.0-36.0) L 29.1 G/DL (32.0-36.0) L Red Cell Distribution Width 19.5 % (11.6-14.8) H 19.4 % (11.6-14.8) H Platelet Count 264 K/UL (150-450) 257 K/UL (150-450) Mean Platelet Volume 6.7 FL (6.5-10.1) 7.5 FL (6.5-10.1) Neutrophils (%) (Auto) % (45.0-75.0) % (45.0-75.0) Lymphocytes (%) (Auto) % (20.0-45.0) % (20.0-45.0) Monocytes (%) (Auto) % (1.0-10.0) % (1.0-10.0) Eosinophils (%) (Auto) % (0.0-3.0) % (0.0-3.0) Basophils (%) (Auto) % (0.0-2.0) % (0.0-2.0) Differential Total Cells Counted 100 100 Neutrophils % (Manual) 78 % (45-75) H 83 % (45-75) H Lymphocytes % (Manual) 15 % (20-45) L 6 % (20-45) L Monocytes % (Manual) 7 % (1-10) 10 % (1-10) Eosinophils % (Manual) 0 % (0-3) 0 % (0-3) Basophils % (Manual) 0 % (0-2) 1 % (0-2) Band Neutrophils 0 % (0-8) 0 % (0-8) Platelet Estimate Adequate Adequate Platelet Morphology Normal Normal Hypochromasia 1+ 1+ Anisocytosis 1+ 2+ Sodium Level 142 MMOL/L (136-145) Potassium Level 4.9 MMOL/L (3.5-5.1) Chloride Level 110 MMOL/L (98-107) H Carbon Dioxide Level 26 MMOL/L (21-32) Anion Gap 6 mmol/L (5-15) Blood Urea Nitrogen 28 mg/dL (7-18) H Creatinine 1.0 MG/DL (0.55-1.30) Estimat Glomerular Filtration Rate > 60 mL/min (>60) Glucose Level 85 MG/DL (74-106) Calcium Level 8.1 MG/DL (8.5-10.1) L Phosphorus Level 2.9 MG/DL (2.5-4.9) Magnesium Level 1.8 MG/DL (1.8-2.4) Total Bilirubin 0.1 MG/DL (0.2-1.0) L Aspartate Amino Transf (AST/SGOT) 28 U/L (15-37) Alanine Aminotransferase (ALT/SGPT) 7 U/L (12-78) L Alkaline Phosphatase 78 U/L (46-116) Total Protein 4.9 G/DL (6.4-8.2) L Albumin 1.5 G/DL (3.4-5.0) L Globulin 3.4 g/dL Albumin/Globulin Ratio 0.4 (1.0-2.7) L Plan Problems: (1) Atrial flutter (2) Hypertension (3) Acute encephalopathy (4) VENTURA (acute kidney injury) (5) Acute and chronic respiratory failure with hypoxia (6) Abscess (7) Fistula (8) Sciatica neuralgia (9) Uncontrolled seizures (10) Forgetfulness (11) Sacral decubitus ulcer Assessment & Plan: Patient identified to have a sacral deep tissue injury upon admission Currently intensive care unit on support Care plan initiated (12) Chronic back pain (13) Overdose of opiate or related narcotic (14) Cellulitis of left leg (15) Pericolonic abscess due to diverticulitis (16) Ventral incisional hernia Assessment & Plan: History of colon resection colostomy Ventral incisional hernia reducible No acute invention monitor parastomal hernia stable ostomy viable and functional no acute intervention planned (17) Chronic pain of both knees (18) Dehydration (19) Hyperkalemia (20) Sepsis Assessment & Plan: Patient admitted identified to have sepsis leukocytosis tachycardia abnormal labs lactic acidosis. Chest x-ray reviewed. Imaging noted. Micro noted. Intensive care unit on support appreciate ICU care Nutritional optimization IV fluids IV antibiotics as per infectious disease tube feeds once stable will follow with recommendations thank you for letting participate patient's care Urosepsis on abx extubated improving downgrade upper ext edema pending US DAILY ESTIMATED NEEDS: Needs based on Pulmonary, sepsis, wound, VENTURA 75.8kg adj 20-30 kcals/kg 5309-8982 total kcals 1.25-1.5 g protein/kg 94-114 g total protein 25-30 mL/kg 7160-9467 total fluid mLs NUTRITION DIAGNOSIS: Swallowing difficulty r/t respiratory status as evidenced by pt orally intubated, on NGT feeds-> now extubated, pending OUTSIDE MAINTENANCE WORKER eval. PO DIET RECOMMENDATIONS-->>> Cardiac diet / texture per OUTSIDE MAINTENANCE WORKER ENTERAL NUTRITION RECOMMENDATIONS: VITAL AF 1.2 @55ml/hr x24 hrs to provide 1320ml, 1584 kcal, 99g pro, 1071ml free H2O - Maintain at goal as tolerated if not cleared for oral diet by OUTSIDE MAINTENANCE WORKER - Flush per MD/ HOB over 30 degree ADDITIONAL RECOMMENDATIONS: 1) Maintain calibrated bed scale wts (248lbs vs 217lbs last adm) 2) Monitor renal fxn and lytes closely, need for renal formula Creat wnl; lytes low (K,phos,mg) 3) Wound healing: ZnSO4 220mg QD x 10 days+ Boris BID via NGT hold vit C until renal fxn improves 4) NISS w/ TF, h/o DM 5) Monitor po intake if cleared for oral diet; need for snacks/supplements Julian Iglesias Apr 08, 2020 15:08
--- NOTE | 2020-04-08 15:21 | NUR ---
NURSE NOTES: Dr Roy discontinued droplet isolation. Order received and noted and notified instrument and electrical technician.
--- NOTE | 2020-04-08 15:44 | NUR ---
NURSE NOTES: Venous duplex of bilateral upper extremities are being done at bedside
[2020-04-08] MEDS ORDERED: Morphine Sulfate 4mg/ml Inj (IV USE ONLY) IVP ONE (16:15)
--- NOTE | 2020-04-08 16:19 | NUR ---
NURSE NOTES: Order for 4mg Morphine IVP for pain received from Dr Iglesias. Order noted and it was given to the patient for pain caused by lifting up arms for venous duplex studies. Venous duplex is being done at bedside.
[2020-04-08] MEDS ORDERED: Morphine Sulfate 2mg/ml Inj(IV/IM USE ONLY) IVP PRN ×2 (17:00→17:43)
[2020-04-08] MEDS ORDERED: Morphine Sulfate 4mg/ml Inj (IV USE ONLY) IVP PRN (17:00)
--- NOTE | 2020-04-08 17:08 | Diagnostic Imaging Report ---
EXAM: US Duplex Bilateral Upper Extremities Veins CLINICAL HISTORY: DVT TECHNIQUE: Real-time duplex ultrasound scan of the bilateral upper extremity veins integrating B-mode two-dimensional vascular structure, Doppler spectral analysis, color flow Doppler imaging and compression. COMPARISON: No relevant prior studies available. FINDINGS: Limitations: Limited study. Right deep veins: Unremarkable. No DVT in the right internal jugular, subclavian, axillary, or brachial veins. The veins demonstrate normal color flow, are normally compressible, with normal phasic flow and/or augmentation response. Right superficial veins: Unremarkable. No thrombus in the visualized right basilic and cephalic veins. Left deep veins: Possible left brachial vein DVT. Left superficial veins: Unremarkable. No thrombus in the visualized left basilic and cephalic veins. Soft tissues: No acute findings. IMPRESSION: Possible left brachial vein DVT. <MYCVCSECTION> Communications: 04/08/20 17:10 Verify Receipt Verified receipt with JOSSELYN FISHER in the ICU on 04/08 17:10 (-07:00)
[2020-04-08] MEDS ORDERED: DiphenhydrAMINE 25mg/10ml Elixir NG PRN (17:37)
[2020-04-08] MEDS ORDERED: Milk of Magnesia 30ml Ud NG PRN (17:39)
--- NOTE | 2020-04-08 17:44 | NUR ---
NURSE NOTES: Dr Chamorro called and gave order to continue Morphine 4 mg for severe pain and Morphine 2 mg for moderate pain. Pain parameters are as follows: severe pain is 7-10 pain scale for 4 Mg Morphine PRN q 4 hr and moderate pain pain is 4-6 pain scale for Morphine 2 mg q 4 hours.
--- NOTE | 2020-04-08 18:10 | NUR ---
NURSE NOTES: Venous duplex done on right arm. No DVT found as per result. Venous on left arm will be done tomorrow as per environmental field services technician. Order is in the system. Will endorse to tele nurse.
--- NOTE | 2020-04-08 18:12 | NUR ---
TRANSFER TO FLOOR: Patient transferred to 220-1, . Report given to JOSSELYN Cloud. No belongings noted. Medications given to JOSSELYN Cloud. Patient is alert and aware of transfer at this time.
--- NOTE | 2020-04-08 18:12 | NUR ---
NURSE NOTES: Patient's transferred from ICU to Tele. Patient's transferred by hospital bed, with assistance of CLOTH FEEDER. Nurse report given by Asya Emanuel RN. Patient's in stable condition, AO x 4, PERRLA, breathing unlabored and regular, no s/s of distress or SOB. On 2L nasal cannula. Bed low and locked, call light within reach, side rails x3, bed alarm is armed. ID band checked. Allergy band checked. Patient has no belonging . Belonging list signed by both nurses at bedside. IV is PICC Left Upper Arm. Left Arm noted hot to touch, edematous than right arm, withdrawal to pain when touch. Was endorsed Venous Dupplex was done on the wrong arm; the test will be retest tomorrow for Left Arm tomorrow 04/09/20. Skin assessment performed, area of concerns noted on Left shoulder and sacral. Left Colostomy noted, draining well. Desai noted, intact, draining well with gravity. Vital signs: 167/62, WI 81, O2 100%, Temp 97.9, RR 22. Transferred orders noted. All needs met. Will continue to monitor.
--- NOTE | 2020-04-08 18:14 | Infectious Diseases Prog Note ---
Assessment/Plan Assessment/Plan ASSESSMENT AND PLAN: 1. esbl e.coli pna/acinetobacter pna, uti, sepsis, fevers, leukocytosis, a.flutter, respiratory failure, atx, dony, + ua, atx fungemia risk - change to meropenem, polymyxin x 4 days more, micafungin - day # 5 (avoid diflucan which is potentially pro-arrhythmic) - extubated, clinically improved but chest x-ray worse - covid-19 testing negative x 2 - monitor labs and chest x-ray, check f/u sputum culture 2. Respiratory failure, on vent. 3. Renal failure. 4. Diabetes. 5. Hypertension. 6. Diabetes and hypertension, treatment per primary care team. 7. Patient with history of altered mental status. 8. Seizure history. 9. Chronic neck pain. 10. Acute kidney injury and renal failure. 11. Allergies to lisinopril. 12. Social history is negative. 13. Family history is noncontributory. 14. MAR was noted. 15. Case was discussed with RN. 16. ICU care. 17. Skin care. 18. Continue treatment per primary consultants. Subjective Constitutional: Reports: other - alert, nad; Denies: fever HEENT: Reports: congestion - mild Respiratory: Reports: shortness of breath - mild Cardiovascular: Denies: chest pain Gastrointestinal/Abdominal: Denies: nausea, vomiting, diarrhea Genitourinary: Reports: other - + weiss Neurologic: Denies: headache Psychiatric: Denies: depression Skin: Denies: rash Hematologic: Denies: bleeding Musculoskeletal: Denies: pain Allergies: Coded Allergies: LISINOPRIL (Verified Allergy, Unknown, Hives, 04/12/14) Objective Vital Signs Last 24 Hour Vital Signs Date Time Temp Pulse Resp B/P (MAP) Pulse Ox O2 Delivery O2 Flow Rate FiO2 04/08/20 17:00 99 13 145/82 (103) 100 04/08/20 16:00 99.0 102 20 154/65 (94) 100 04/08/20 16:00 Nasal Cannula 2.0 04/08/20 15:48 97 04/08/20 15:00 99 22 150/26 (67) 100 04/08/20 14:05 Nasal Cannula 2.0 04/08/20 14:00 104 10 149/71 (97) 99 04/08/20 13:09 101 157/67 04/08/20 13:00 102 16 161/62 (95) 98 04/08/20 12:00 101 04/08/20 12:00 98.9 100 17 157/67 (97) 100 04/08/20 12:00 Nasal Cannula 2.0 04/08/20 11:36 98.2 04/08/20 11:00 97 25 140/62 (88) 96 04/08/20 10:00 99 24 112/52 (72) 100 04/08/20 09:00 103 19 143/83 (103) 99 04/08/20 08:00 98 22 138/85 (102) 100 04/08/20 08:00 102 04/08/20 08:00 Nasal Cannula 2.0 04/08/20 07:00 99.0 105 19 125/67 (86) 100 04/08/20 06:05 98 157/67 04/08/20 06:00 100 10 130/56 (80) 99 04/08/20 05:00 98 20 157/67 (97) 100 04/08/20 04:00 86 04/08/20 04:00 98.2 95 18 152/66 (94) 100 04/08/20 04:00 Nasal Cannula 2.0 04/08/20 03:00 90 14 140/79 (99) 100 04/08/20 02:00 93 20 135/69 (91) 100 04/08/20 01:00 89 18 148/56 (86) 100 04/08/20 00:00 Nasal Cannula 2.0 04/08/20 00:00 99.1 92 19 127/55 (79) 100 04/08/20 00:00 92 04/07/20 23:00 87 17 161/94 (116) 100 04/07/20 22:42 88 133/81 04/07/20 22:00 87 17 133/81 (98) 100 04/07/20 21:00 98.3 84 24 140/61 (87) 99 04/07/20 20:00 88 04/07/20 20:00 Nasal Cannula 2.0 04/07/20 20:00 84 22 139/61 (87) 100 04/07/20 19:00 90 18 101/53 (69) 100 Height (Feet): 5 Height (Inches): 6.00 Weight (Pounds): 296 General Appearance: no acute distress HEENT: normocephalic, atraumatic Respiratory/Chest: crackles/rales, rhonchi - bilaterally Cardiovascular: normal rate, regular rhythm, no gallop/murmur, no JVD Abdomen: normal bowel sounds, soft, non tender, no organomegaly, non distended Genitourinary: other - + weiss - urine clear Extremities: no cyanosis Skin: no rash Neurologic/Psychiatric: enterprise manager II-XII grossly normal, alert, oriented x 3, responsive Lymphatic: no neck adenopathy Musculoskeletal: no effusion Objective Chest x-ray - 03/29/20 - Procedure: XRAY Chest 1v Indication: Shortness of breath Technique: One view of the chest Comparison: 03/28/2020 post PICC radiograph Findings: Stable satisfactory positions of endotracheal tube, orogastric tube, left arm PICC. There is some increased atelectasis at the right lung base. There is minimal left basilar atelectasis as well. The heart size is normal. Impression: Increased right basilar atelectasis. Otherwise little change number operator one day, findings as noted 04/03/20 - Procedure: XRAY Chest 1v Procedure: XRAY Chest 1v Reason for study: Shortness of breath. Comparison films: 03/29/2020. FINDINGS: Endotracheal tube, NG tube and left PICC line remain in place. Vascularity is normal. There is worsening of bilateral infiltrates. Cardiac and mediastinal silhouette are within normal limits. CP angles are sharp. The bony thorax appear unremarkable. IMPRESSION: Worsening of bilateral infiltrates. Chest x-ray - 04/07/20 - IMPRESSION: Worsening left lung infiltrates with unchanged right lung infiltrates. Microbiology Date/Time Source Procedure Growth Status 04/03/20 04:55 Blood Blood Culture - Preliminary NO GROWTH AFTER 4 DAYS Resulted 04/03/20 04:00 Sputum Expectorated Gram Stain - Final Complete 04/03/20 04:00 Sputum Culture - Final Escherichia Coli - Esbl A.baumanii Complx - Mdr Complete 04/03/20 04:00 Indwelling Cath Urine Culture - Final NO GROWTH AFTER 48 HOURS Complete 03/27/20 19:15 Rectum - Final NO CARBAPENEM-RESISTANT ENTEROBACTERI... Complete Laboratory Tests Test 04/08/20 04:00 04/08/20 05:04/08/20 12:00 Stool Occult Blood Positive (NEGATIVE) White Blood Count 10.4 K/UL (4.8-10.8) 10.9 K/UL (4.8-10.8) H Red Blood Count 2.89 M/UL (4.20-5.40) L 2.81 M/UL (4.20-5.40) L Hemoglobin 7.5 G/DL (12.0-16.0) L 7.2 G/DL (12.0-16.0) L Hematocrit 25.3 % (37.0-47.0) L 24.8 % (37.0-47.0) L Mean Corpuscular Volume 88 FL (80-99) 88 FL (80-99) Mean Corpuscular Hemoglobin 25.9 PG (27.0-31.0) L 25.6 PG (27.0-31.0) L Mean Corpuscular Hemoglobin Concent 29.6 G/DL (32.0-36.0) L 29.1 G/DL (32.0-36.0) L Red Cell Distribution Width 19.5 % (11.6-14.8) H 19.4 % (11.6-14.8) H Platelet Count 264 K/UL (150-450) 257 K/UL (150-450) Mean Platelet Volume 6.7 FL (6.5-10.1) 7.5 FL (6.5-10.1) Neutrophils (%) (Auto) % (45.0-75.0) % (45.0-75.0) Lymphocytes (%) (Auto) % (20.0-45.0) % (20.0-45.0) Monocytes (%) (Auto) % (1.0-10.0) % (1.0-10.0) Eosinophils (%) (Auto) % (0.0-3.0) % (0.0-3.0) Basophils (%) (Auto) % (0.0-2.0) % (0.0-2.0) Differential Total Cells Counted 100 100 Neutrophils % (Manual) 78 % (45-75) H 83 % (45-75) H Lymphocytes % (Manual) 15 % (20-45) L 6 % (20-45) L Monocytes % (Manual) 7 % (1-10) 10 % (1-10) Eosinophils % (Manual) 0 % (0-3) 0 % (0-3) Basophils % (Manual) 0 % (0-2) 1 % (0-2) Band Neutrophils 0 % (0-8) 0 % (0-8) Platelet Estimate Adequate Adequate Platelet Morphology Normal Normal Hypochromasia 1+ 1+ Anisocytosis 1+ 2+ Sodium Level 142 MMOL/L (136-145) Potassium Level 4.9 MMOL/L (3.5-5.1) Chloride Level 110 MMOL/L (98-107) H Carbon Dioxide Level 26 MMOL/L (21-32) Anion Gap 6 mmol/L (5-15) Blood Urea Nitrogen 28 mg/dL (7-18) H Creatinine 1.0 MG/DL (0.55-1.30) Estimat Glomerular Filtration Rate > 60 mL/min (>60) Glucose Level 85 MG/DL (74-106) Calcium Level 8.1 MG/DL (8.5-10.1) L Phosphorus Level 2.9 MG/DL (2.5-4.9) Magnesium Level 1.8 MG/DL (1.8-2.4) Total Bilirubin 0.1 MG/DL (0.2-1.0) L Aspartate Amino Transf (AST/SGOT) 28 U/L (15-37) Alanine Aminotransferase (ALT/SGPT) 7 U/L (12-78) L Alkaline Phosphatase 78 U/L (46-116) Total Protein 4.9 G/DL (6.4-8.2) L Albumin 1.5 G/DL (3.4-5.0) L Globulin 3.4 g/dL Albumin/Globulin Ratio 0.4 (1.0-2.7) L Current Medications Medications (Trade) Dose Ordered Sig/Debbie Route PRN Reason Start Time Stop Time Status Last Admin Dose Admin Acetaminophen (Tylenol) 650 mg Q4H PRN NG Mild Pain (Pain Scale 1-3) 04/08/20 18:45 04/25/20 21:14 Acetaminophen (Tylenol) 650 mg Q4H PRN NG Temp >100.5 04/08/20 18:45 04/25/20 21:14 Al Hydroxide/Mg Hydroxide (Mylanta II) 30 ml Q6H PRN NG dyspepsia 04/08/20 22:45 04/25/20 21:14 Amiodarone HCl (Cordarone) 400 mg EVERY 12 HOURS NG 04/08/20 21:00 07/05/20 20:59 Bisacodyl (Dulcolax) 10 mg HSPRN PRN RECTAL Constipation 04/08/20 21:15 06/24/20 21:14 Chlorhexidine Gluconate (Laurie-Hex 2%) 1 applic DAILY@2000 TOPIC 04/08/20 20:00 06/26/20 19:59 Dextrose (Dextrose 50%) 25 ml Q30M PRN IV Hypoglycemia 04/08/20 17:45 06/24/20 21:14 Dextrose (Dextrose 50%) 50 ml Q30M PRN IV Hypoglycemia 04/08/20 17:45 06/24/20 21:14 Diltiazem HCl (Cardizem) 90 mg EVERY 8 HOURS NG 04/08/20 22:00 05/04/20 14:59 Diphenhydramine HCl (Benadryl) 25 mg Q6H PRN NG Itching/Pruritis 04/08/20 17:37 04/25/20 17:36 Docusate Sodium (Colace) 100 mg Q12HR NG 04/08/20 21:00 04/29/20 08:59 Gabapentin (Neurontin) 300 mg BEDTIME NG 04/08/20 21:00 04/26/20 20:59 Iron Sucrose 100 mg/Sodium Chloride 60 ml @ 240 mls/hr BEDTIME IV 04/08/20 21:00 04/10/20 21:14 Magnesium Hydroxide (Mom) 30 ml HSPRN PRN NG Constipation 04/08/20 17:39 05/08/20 17:38 Meropenem 1 gm/ Sodium Chloride 100 ml @ 200 mls/hr Q12HR IVPB 04/08/20 21:00 04/10/20 20:59 Metoclopramide HCl (Reglan) 10 mg Q6H PRN IVP Nausea & Vomiting 04/08/20 21:15 04/25/20 21:14 Micafungin Sodium 100 mg/Sodium Chloride 100 ml @ 100 mls/hr Q24H IVPB 04/08/20 20:00 04/11/20 19:59 Morphine Sulfate (Morphine Sulfate) 2 mg Q4H PRN IVP Moderate Breakthru Pain (5-7) 04/08/20 17:43 04/15/20 17:42 Morphine Sulfate (Morphine Sulfate) 4 mg Q4H PRN IVP Severe Pain (Pain Scale 7-10) 04/08/20 17:43 04/15/20 17:42 Ondansetron HCl (Zofran) 4 mg Q6H PRN IVP Nausea & Vomiting 04/08/20 17:44 04/25/20 17:43 Pantoprazole (Protonix) 40 mg DAILY IVP 04/09/20 09:00 05/01/20 08:59 Polyethylene Glycol (Miralax) 17 gm HSPRN PRN NG Constipation 04/08/20 21:00 05/08/20 20:59 Polymyxin B Sulfate [id number] units/Dextrose 500 ml @ 500 mls/hr EVERY 12 HOURS IVPB 04/08/20 21:00 04/12/20 20:59 Rivaroxaban (Xarelto) 15 mg DAILY NG 04/09/20 09:00 06/29/20 08:59 Jose Valdes MD Apr 08, 2020 18:14
--- NOTE | 2020-04-08 18:30 | NUR ---
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 New belonging list was signed again by both ICU nurse Asya Emanuel and Tele nurse Ai; and signed by patient at bedside. Per patient stated she also has glasses upon admission ER ; however no belonging documented by previous nurses/shifts. Patient's AO x 4.
[2020-04-08] MEDS ORDERED: Acetaminophen 650mg/20.3ml NG PRN ×2 (18:45)
--- NOTE | 2020-04-08 18:48 | NUR ---
NURSE NOTES: Nurse asked patient to be turned in order to have skin assessment and pictures to be taken. Patient refused to be checked at this moment. Patient stated to be checked later after she eats dinner first. Will endorsed to next shift nurse.
--- NOTE | 2020-04-08 19:20 | NUR ---
HAND-OFF: Report given to JOSSELYN YATES. Patient's in stable condition. Endorsed that patient needs to have wound pictures to be taken and sputum colect.
--- NOTE | 2020-04-08 19:20 | NUR ---
NURSE NOTES: Received report from JOSSELYN Cloud. Patient awake in bed, afebrile and has no respiratory distress noted. On SR in geoduck diver. On NC at 2lpm saturating at 97-99%. With left upper arm PICC line intact, flushed and asymptomatic. With left colostomy bag intact without any leakage. With FC to UB intact and draining well. HOB elevated . Needs were attended. Bed rails are up and wheels are locked. Continue plan of care
[2020-04-08] MEDS: Dyna-Hex 2% Top Sol 2oz TOPIC SCH (20:22)
[2020-04-08] MEDS ORDERED: Amiodarone 200mg tab NG SCH (21:00)
[2020-04-08] MEDS ORDERED: Docusate 100mg/10ml Liq NG SCH (21:00)
[2020-04-08] MEDS ORDERED: Miralax 17gm pkt NG PRN (21:00)
[2020-04-08] MEDS ORDERED: Metoclopramide 10mg/2ml Inj IVP PRN (21:15)
[2020-04-08] MEDS ORDERED: dilTIAZem HCl 90mg tab NG SCH (22:00)
[2020-04-08 22:05] LABS: BASOPHILS % (AUTO) 1.4 % (0.0-2.0); EOSINOPHILS % (AUTO) 0.7 % (0.0-3.0); HEMATOCRIT 27.2 % (37.0-47.0); LYMPHOCYTES % (AUTO) 7.1 % (20.0-45.0); MEAN CORPUSCULAR VOLUME 88 FL (80-99); MONOCYTES % (AUTO) 7.1 % (1.0-10.0); NEUTROPHILS % (AUTO) 83.7 % (45.0-75.0); PLATELET COUNT 273 K/UL (150-450); RED BLOOD COUNT 3.08 M/UL (4.20-5.40); RED CELL DISTRIBUTION WIDTH 19.9 % (11.6-14.8); WHITE BLOOD COUNT 11.6 K/UL (4.8-10.8)
[2020-04-08] MEDS: Iron Sucrose 100 MG in NS 55 ML IV SCH (22:07)
[2020-04-08] MEDS ORDERED: Mylanta II UD 30ml NG PRN (22:45)
[2020-04-09] VITALS: BP 155/68
[2020-04-09] MEDS: Morphine Sulfate 4mg/ml Inj (IV USE ONLY) IVP PRN ×6 (00:33→22:49)
[2020-04-09] MEDS ORDERED: Milk of Magnesia 30ml Ud ORAL PRN (01:30)
[2020-04-09] MEDS ORDERED: Miralax 17gm pkt ORAL PRN (01:30)
--- NOTE | 2020-04-09 03:00 | NUR ---
NURSE NOTES: Provided cleaning and gown changing to patient. Wound care done as tolerated by patient. Patient wasn't able to maintain side to side turning. Allowed patient to rest and gave time to turn. Pt tolerated after every resting periods. No respiratory distress noted. Continue to monitor the patient.
[2020-04-09 04:00] VITALS: BP 146/70
[2020-04-09] MEDS ORDERED: Mylanta II UD 30ml ORAL PRN (04:45)
[2020-04-09] MEDS: dilTIAZem HCl 90mg tab ORAL SCH ×3 (05:21→21:30)
[2020-04-09] MEDS ORDERED: DiphenhydrAMINE 25mg/10ml Elixir ORAL PRN (05:37)
--- NOTE | 2020-04-09 06:51 | Hematology/Onc Progress Note ---
Assessment/Plan Assessment/Plan Assessment and Recs # Anemia of iron deficiency, with a ferritin that is less than 50 recentrly --> Anemia workup has been ordered, rule out gi bleed --> recheck ferritin, occult was + --> No evidence of hemolysis is noted, peripheral smear has been reviewed. --> Hgb goal >7. Transfuse prn. --> IRon IV x 5 days started 04/06 as ferritin is low --> Medications have been reviewed --> low threshold for gi evaluation in case has occult + --> currently is on XARELTO --> as per Terrance, may need to hold if h /h lower --> hgb trend 8.2-->7.2 --> GI eval prn # Hypercoagulable disorder is on xarelto for afib with rvr --> reviewed cards recs --> if any further bleed, consider hold xarelto --> have dw Pcp --> monitor h/h # Leukocytoisis with gram neg pna, uti, sepsis, fevers, leukocytosis, a.flutter , respiratory failure, atx, dony, + ua, atx --> covid is neg --> abx svetlana and micafungin/polymyx --> as per id recs # Respiratory failure, on vent initially --> now extubated # Renal failure. --> improved # Diabetes. --> endo prn # Hypertension. --> per cards # Diabetes and hypertension, treatment per primary care team. --> a1c goal <8, acchuchecks qac and qhs # Patient with history of altered mental status. --> metabolic encephalopathy # Seizure history. # Chronic neck pain. # Lactic acidsis # HLD # Obesity # Dvt ppx xarelto Appreciate consultation and vanessa RN Subjective Cardiovascular: Denies: no symptoms, chest pain, edema, irregular heart rate, lightheadedness, palpitations, syncope, other Respiratory: Denies: no symptoms, cough, shortness of breath, SOB with excertion, SOB at rest, sputum, wheezing, other Gastrointestinal/Abdominal: Denies: no symptoms, abdomen distended, abdominal pain, black stools, tarry stools, blood in stool, constipated, diarrhea, difficulty swallowing, nausea, poor appetite, poor fluid intake, rectal bleeding , vomiting, other Genitourinary: Denies: no symptoms, burning, discharge, frequency, flank pain, hematuria, incontinence, pain, urgency, other Neurologic/Psychiatric: Denies: no symptoms, anxiety, depressed, emotional problems, headache, numbness, paresthesia, pre-existing deficit, seizure, tingling, tremors, weakness, other Hematologic/Lymphatic: Denies: no symptoms, anemia, easy bleeding, easy bruising, adenopathy, other Allergies: Coded Allergies: LISINOPRIL (Verified Allergy, Unknown, Hives, 04/12/14) Subjective 04/08 labs have been reviewed, no night sweats, eating overnight, labs pending 04/09 awake, alert with picc, labs from am pending, no major events Objective Objective Current Medications Medications (Trade) Dose Ordered Sig/Debbie Route PRN Reason Start Time Stop Time Status Last Admin Dose Admin Acetaminophen (Tylenol) 650 mg Q4H PRN ORAL Mild Pain (Pain Scale 1-3) 04/09/20 02:45 04/25/20 21:14 Acetaminophen (Tylenol) 650 mg Q4H PRN ORAL Temp >100.5 04/09/20 02:45 04/25/20 21:14 Al Hydroxide/Mg Hydroxide (Mylanta II) 30 ml Q6H PRN ORAL dyspepsia 04/09/20 04:45 04/25/20 21:14 Amiodarone HCl (Cordarone) 400 mg EVERY 12 HOURS ORAL 04/09/20 09:00 07/05/20 20:59 Bisacodyl (Dulcolax) 10 mg HSPRN PRN RECTAL Constipation 04/08/20 21:15 06/24/20 21:14 Chlorhexidine Gluconate (Laurie-Hex 2%) 1 applic DAILY@1999 TOPIC 04/08/20 20:00 06/26/20 19:59 04/08/20 20:22 Dextrose (Dextrose 50%) 25 ml Q30M PRN IV Hypoglycemia 04/08/20 17:45 06/24/20 21:14 Dextrose (Dextrose 50%) 50 ml Q30M PRN IV Hypoglycemia 04/08/20 17:45 06/24/20 21:14 Diltiazem HCl (Cardizem) 90 mg EVERY 8 HOURS ORAL 04/09/20 06:00 05/04/20 14:59 04/09/20 05:21 Diphenhydramine HCl (Benadryl) 25 mg Q6H PRN ORAL Itching/Pruritis 04/09/20 05:37 04/25/20 17:36 Docusate Sodium (Colace) 100 mg Q12HR ORAL 04/09/20 09:00 04/29/20 08:59 Gabapentin (Neurontin) 300 mg BEDTIME ORAL 04/09/20 21:00 04/26/20 20:59 Iron Sucrose 100 mg/Sodium Chloride 60 ml @ 240 mls/hr BEDTIME IV 04/08/20 21:00 04/10/20 21:14 04/08/20 22:07 Magnesium Hydroxide (Mom) 30 ml HSPRN PRN ORAL Constipation 04/09/20 01:30 05/08/20 17:38 Meropenem 1 gm/ Sodium Chloride 100 ml @ 200 mls/hr Q8HR IVPB 04/08/20 22:00 04/13/20 21:59 04/09/20 05:12 Metoclopramide HCl (Reglan) 10 mg Q6H PRN IVP Nausea & Vomiting 04/08/20 21:15 04/25/20 21:14 Micafungin Sodium 100 mg/Sodium Chloride 100 ml @ 100 mls/hr Q24H IVPB 04/08/20 20:00 04/11/20 19:59 04/08/20 20:32 Morphine Sulfate (Morphine Sulfate) 2 mg Q4H PRN IVP Moderate Breakthru Pain (5-7) 04/08/20 17:43 04/15/20 17:42 Morphine Sulfate (Morphine Sulfate) 4 mg Q4H PRN IVP Severe Pain (Pain Scale 7-10) 04/08/20 17:43 04/15/20 17:42 04/09/20 05:12 Ondansetron HCl (Zofran) 4 mg Q6H PRN IVP Nausea & Vomiting 04/08/20 17:44 04/25/20 17:43 Pantoprazole (Protonix) 40 mg DAILY IVP 04/09/20 09:00 05/01/20 08:59 Polyethylene Glycol (Miralax) 17 gm HSPRN PRN ORAL Constipation 04/09/20 01:30 05/08/20 20:59 Polymyxin B Sulfate 187317 units/Dextrose 500 ml @ 500 mls/hr EVERY 12 HOURS IVPB 04/08/20 21:00 04/12/20 20:59 04/08/20 22:11 Rivaroxaban (Xarelto) 15 mg DAILY ORAL 04/09/20 09:00 06/29/20 08:59 Last 24 Hour Vital Signs Date Time Temp Pulse Resp B/P (MAP) Pulse Ox O2 Delivery O2 Flow Rate FiO2 04/09/20 05:21 95 166/62 04/09/20 04:00 Nasal Cannula 2.0 04/09/20 04:00 98.1 95 13 146/70 (95) 100 04/09/20 03:36 97 04/09/20 00:00 99.6 96 13 155/68 (97) 100 04/09/20 00:00 Nasal Cannula 2.0 04/08/20 23:20 95 04/08/20 22:26 85 161/58 04/08/20 20:00 99.0 97 13 153/63 (93) 100 04/08/20 20:00 Nasal Cannula 2.0 04/08/20 19:43 96 04/08/20 17:00 99 13 145/82 (103) 100 04/08/20 16:00 99.0 102 20 154/65 (94) 100 04/08/20 16:00 Nasal Cannula 2.0 04/08/20 15:48 97 04/08/20 15:00 99 22 150/26 (67) 100 04/08/20 14:05 Nasal Cannula 2.0 04/08/20 14:00 104 10 149/71 (97) 99 04/08/20 13:09 101 157/67 04/08/20 13:00 102 16 161/62 (95) 98 04/08/20 12:00 101 04/08/20 12:00 98.9 100 17 157/67 (97) 100 04/08/20 12:00 Nasal Cannula 2.0 04/08/20 11:36 98.2 04/08/20 11:00 97 25 140/62 (88) 96 04/08/20 10:00 99 24 112/52 (72) 100 04/08/20 09:00 103 19 143/83 (103) 99 04/08/20 08:00 98 22 138/85 (102) 100 04/08/20 08:00 102 04/08/20 08:00 Nasal Cannula 2.0 04/08/20 07:00 99.0 105 19 125/67 (86) 100 04/08/20 06:05 98 157/67 04/08/20 06:00 100 10 130/56 (80) 99 04/08/20 05:00 98 20 157/67 (97) 100 04/08/20 04:00 86 04/08/20 04:00 98.2 95 18 152/66 (94) 100 04/08/20 04:00 Nasal Cannula 2.0 04/08/20 03:00 90 14 140/79 (99) 100 04/08/20 02:00 93 20 135/69 (91) 100 04/08/20 01:00 89 18 148/56 (86) 100 04/08/20 00:00 Nasal Cannula 2.0 04/08/20 00:00 99.1 92 19 127/55 (79) 100 04/08/20 00:00 92 04/07/20 23:00 87 17 161/94 (116) 100 04/07/20 22:42 88 133/81 04/07/20 22:00 87 17 133/81 (98) 100 04/07/20 21:00 98.3 84 24 140/61 (87) 99 04/07/20 20:00 88 04/07/20 20:00 Nasal Cannula 2.0 04/07/20 20:00 84 22 139/61 (87) 100 04/07/20 19:00 90 18 101/53 (69) 100 04/07/20 18:00 85 16 111/53 (72) 98 04/07/20 16:58 90 12 117/48 (71) 98 04/07/20 16:00 97.9 88 12 121/58 (79) 98 04/07/20 16:00 Nasal Cannula 2.0 04/07/20 15:19 86 04/07/20 15:03 91 24 113/67 (82) 100 04/07/20 14:03 100 24 117/67 (84) 100 04/07/20 13:25 85 167/54 04/07/20 13:01 98.9 96 22 159/64 (95) 100 04/07/20 13:00 94 24 175/69 (104) 100 04/07/20 12:06 85 24 167/54 (91) 100 04/07/20 12:05 90 04/07/20 12:00 Nasal Cannula 2.0 04/07/20 11:00 106 24 148/65 (92) 100 04/07/20 10:00 97.3 93 17 144/65 (91) 100 04/07/20 09:00 94 16 126/53 (77) 100 04/07/20 08:00 92 04/07/20 08:00 Nasal Cannula 2.0 04/07/20 08:00 88 16 124/47 (72) 100 04/07/20 07:00 93 21 143/49 (80) 91 Intake and Output 04/08/20 04/09/20 19:00 07:00 Intake Total 1105 ml 1840 ml Output Total 660 ml 1000 ml Balance 445 ml 840 ml Intake Oral 405 ml 780 ml IV Total 700 ml 1060 ml Output Urine Total 560 ml 1000 ml Stool Total 100 ml # Voids 1 Labs Test 04/06/20 17:15 04/07/20 04:45 04/08/20 04:00 04/08/20 05:10 Stool Occult Blood Positive (NEGATIVE) Positive (NEGATIVE) White Blood Count 9.2 K/UL (4.8-10.8) 10.4 K/UL (4.8-10.8) Red Blood Count 2.76 M/UL (4.20-5.40) 2.89 M/UL (4.20-5.40) Hemoglobin 7.0 G/DL (12.0-16.0) 7.5 G/DL (12.0-16.0) Hematocrit 24.1 % (37.0-47.0) 25.3 % (37.0-47.0) Mean Corpuscular Volume 87 FL (80-99) 88 FL (80-99) Mean Corpuscular Hemoglobin 25.4 PG (27.0-31.0) 25.9 PG (27.0-31.0) Mean Corpuscular Hemoglobin Concent 29.2 G/DL (32.0-36.0) 29.6 G/DL (32.0-36.0) Red Cell Distribution Width 19.4 % (11.6-14.8) 19.5 % (11.6-14.8) Platelet Count 246 K/UL (150-450) 264 K/UL (150-450) Mean Platelet Volume 8.0 FL (6.5-10.1) 6.7 FL (6.5-10.1) Neutrophils (%) (Auto) 77.7 % (45.0-75.0) % (45.0-75.0) Lymphocytes (%) (Auto) 12.1 % (20.0-45.0) % (20.0-45.0) Monocytes (%) (Auto) 8.1 % (1.0-10.0) % (1.0-10.0) Eosinophils (%) (Auto) 1.5 % (0.0-3.0) % (0.0-3.0) Basophils (%) (Auto) 0.6 % (0.0-2.0) % (0.0-2.0) Differential Total Cells Counted 100 100 Neutrophils % (Manual) 79 % (45-75) 78 % (45-75) Lymphocytes % (Manual) 13 % (20-45) 15 % (20-45) Monocytes % (Manual) 6 % (1-10) 7 % (1-10) Eosinophils % (Manual) 2 % (0-3) 0 % (0-3) Basophils % (Manual) 0 % (0-2) 0 % (0-2) Band Neutrophils 0 % (0-8) 0 % (0-8) Platelet Estimate Adequate Adequate Platelet Morphology Normal Normal Hypochromasia 3+ 1+ Anisocytosis 2+ 1+ Sodium Level 144 MMOL/L (136-145) 142 MMOL/L (136-145) Potassium Level 3.9 MMOL/L (3.5-5.1) 4.9 MMOL/L (3.5-5.1) Chloride Level 112 MMOL/L (98-107) 110 MMOL/L (98-107) Carbon Dioxide Level 26 MMOL/L (21-32) 26 MMOL/L (21-32) Anion Gap 6 mmol/L (5-15) 6 mmol/L (5-15) Blood Urea Nitrogen 37 mg/dL (7-18) 28 mg/dL (7-18) Creatinine 1.2 MG/DL (0.55-1.30) 1.0 MG/DL (0.55-1.30) Estimat Glomerular Filtration Rate 54.3 mL/min (>60) > 60 mL/min (>60) Glucose Level 105 MG/DL (74-106) 85 MG/DL (74-106) Calcium Level 8.0 MG/DL (8.5-10.1) 8.1 MG/DL (8.5-10.1) Phosphorus Level 2.7 MG/DL (2.5-4.9) 2.9 MG/DL (2.5-4.9) Magnesium Level 1.6 MG/DL (1.8-2.4) 1.8 MG/DL (1.8-2.4) Total Bilirubin 0.2 MG/DL (0.2-1.0) 0.1 MG/DL (0.2-1.0) Direct Bilirubin 0.1 MG/DL (0.0-0.3) Aspartate Amino Transf (AST/SGOT) 10 U/L (15-37) 28 U/L (15-37) Alanine Aminotransferase (ALT/SGPT) 8 U/L (12-78) 7 U/L (12-78) Alkaline Phosphatase 68 U/L (46-116) 78 U/L (46-116) Total Protein 5.0 G/DL (6.4-8.2) 4.9 G/DL (6.4-8.2) Albumin 1.4 G/DL (3.4-5.0) 1.5 G/DL (3.4-5.0) Globulin 3.7 g/dL 3.4 g/dL Albumin/Globulin Ratio 0.4 (1.0-2.7) 0.4 (1.0-2.7) Test 04/08/20 12:00 04/08/20 22:00 04/09/20 06:21 White Blood Count 10.9 K/UL (4.8-10.8) 11.6 K/UL (4.8-10.8) Red Blood Count 2.81 M/UL (4.20-5.40) 3.08 M/UL (4.20-5.40) Hemoglobin 7.2 G/DL (12.0-16.0) 8.0 G/DL (12.0-16.0) Hematocrit 24.8 % (37.0-47.0) 27.2 % (37.0-47.0) Mean Corpuscular Volume 88 FL (80-99) 88 FL (80-99) Mean Corpuscular Hemoglobin 25.6 PG (27.0-31.0) 25.8 PG (27.0-31.0) Mean Corpuscular Hemoglobin Concent 29.1 G/DL (32.0-36.0) 29.3 G/DL (32.0-36.0) Red Cell Distribution Width 19.4 % (11.6-14.8) 19.9 % (11.6-14.8) Platelet Count 257 K/UL (150-450) 273 K/UL (150-450) Mean Platelet Volume 7.5 FL (6.5-10.1) 7.2 FL (6.5-10.1) Neutrophils (%) (Auto) % (45.0-75.0) 83.7 % (45.0-75.0) Lymphocytes (%) (Auto) % (20.0-45.0) 7.1 % (20.0-45.0) Monocytes (%) (Auto) % (1.0-10.0) 7.1 % (1.0-10.0) Eosinophils (%) (Auto) % (0.0-3.0) 0.7 % (0.0-3.0) Basophils (%) (Auto) % (0.0-2.0) 1.4 % (0.0-2.0) Differential Total Cells Counted 100 Neutrophils % (Manual) 83 % (45-75) Lymphocytes % (Manual) 6 % (20-45) Monocytes % (Manual) 10 % (1-10) Eosinophils % (Manual) 0 % (0-3) Basophils % (Manual) 1 % (0-2) Band Neutrophils 0 % (0-8) Platelet Estimate Adequate Platelet Morphology Normal Hypochromasia 1+ Anisocytosis 2+ Height (Feet): 5 Height (Inches): 6.00 Weight (Pounds): 294 Objective Physical Exam Sp02 EP Interpretation: reviewed, normal General: Patient appears chronically ill Head: normocephalic, atraumatic ++ngt Respiratory: , crackles - both lower lobes Cardiovascular: tachycardia Gastrointestinal: non tender, soft Musculoskeletal: other - Patient appears chronically debilitated both lower extremities are extended Neurologic: other - Some verbal response, but chronic disability Skin: no rash : ++Virgil Chowdhury MD Apr 09, 2020 06:51
[2020-04-09 07:07] LABS: HEMATOCRIT 24.7 % (37.0-47.0); HEMOGLOBIN 7.3 G/DL (12.0-16.0); MEAN CORPUSCULAR VOLUME 88 FL (80-99); PLATELET COUNT 279 K/UL (150-450); RED BLOOD COUNT 2.81 M/UL (4.20-5.40); RED CELL DISTRIBUTION WIDTH 18.8 % (11.6-14.8); WHITE BLOOD COUNT 10.7 K/UL (4.8-10.8)
--- NOTE | 2020-04-09 07:20 | NUR ---
HAND-OFF: Report given to JOSSELYN Cloud. Pt awake in bed and stable.
[2020-04-09 07:28] LABS: PHOSPHORUS 3.1 MG/DL (2.5-4.9)
[2020-04-09 07:30] LABS: ALANINE AMINOTRANSFERASE 7 U/L (12-78); ALBUMIN 1.3 G/DL (3.4-5.0); ALBUMIN/GLOBULIN RATIO 0.3 (1.0-2.7); ALKALINE PHOSPHATASE 76 U/L (46-116); ANION GAP 4 mmol/L (5-15); ASPARTATE AMINO TRANSFERASE 23 U/L (15-37); BILIRUBIN,TOTAL 0.2 MG/DL (0.2-1.0); BLOOD UREA NITROGEN 19 mg/dL (7-18); CARBON DIOXIDE 25 MMOL/L (21-32); CHLORIDE 107 MMOL/L (98-107); CREATININE 1.2 MG/DL (0.55-1.30); POTASSIUM 4.5 MMOL/L (3.5-5.1); SODIUM 136 MMOL/L (136-145)
--- NOTE | 2020-04-09 07:32 | NUR ---
NURSE NOTES: Nurse report given by JOSSELYN YATES. Patient's awake and sitting in bed, high bustamante position, eating breakfast in bed. AO x 4, complains of pain 7/10, at arm and back. Medication will be provide. Bed low and locked, call light within reach, side rails x 3, bed alarm is armed. IV is PICC, on Left upper arm. Left arm is swollen, warm to touch and patient withdrawal to pain when touched. Left colostomy noted. Desai is intact, draining well. Will continue to monitor.
[2020-04-09 08:00] VITALS: BP 146/83
[2020-04-09] MEDS: Polymyxin B Sulfate 500,000 UNITS in D5W 500ml 500 ML IVPB SCH ×2 (08:21→21:50)
[2020-04-09] MEDS: Xarelto 15mg tab ORAL SCH (08:21)
[2020-04-09] MEDS: Pantoprazole Inj IVP SCH (08:22)
[2020-04-09] MEDS: Docusate 100mg/10ml Liq ORAL SCH ×2 (08:22→21:30)
[2020-04-09] MEDS ORDERED: Amiodarone 200mg tab ORAL SCH (09:00)
[2020-04-09] MEDS ORDERED: Xarelto 15mg tab NG SCH (09:00)
--- NOTE | 2020-04-09 10:21 | Pulmonology Progress Note ---
Subjective ROS Limited/Unobtainable: No Interval Events: Extubated 04/05/20; doing well on 2L/min O2 Constitutional: Reports: other - alert, nad; Denies: fever HEENT: Repors: no symptoms Respiratory: Reports: no symptoms Cardiovascular: Reports: no symptoms Gastrointestinal/Abdominal: Denies: nausea, vomiting, diarrhea Genitourinary: Reports: no symptoms Psychiatric: Denies: depression Skin: Denies: rash Musculoskeletal: Denies: pain Allergies: Coded Allergies: LISINOPRIL (Verified Allergy, Unknown, Hives, 04/12/14) Objective Last 24 Hour Vital Signs Date Time Temp Pulse Resp B/P (MAP) Pulse Ox O2 Delivery O2 Flow Rate FiO2 04/09/20 08:00 99.0 102 16 146/83 (104) 98 04/09/20 08:00 104 04/09/20 08:00 Nasal Cannula 2.0 04/09/20 05:21 95 166/62 04/09/20 04:00 Nasal Cannula 2.0 04/09/20 04:00 98.1 95 13 146/70 (95) 100 04/09/20 03:36 97 04/09/20 00:00 99.6 96 13 155/68 (97) 100 04/09/20 00:00 Nasal Cannula 2.0 04/08/20 23:20 95 04/08/20 22:26 85 161/58 04/08/20 20:00 99.0 97 13 153/63 (93) 100 04/08/20 20:00 Nasal Cannula 2.0 04/08/20 19:43 96 04/08/20 17:00 99 13 145/82 (103) 100 04/08/20 16:00 99.0 102 20 154/65 (94) 100 04/08/20 16:00 Nasal Cannula 2.0 04/08/20 15:48 97 04/08/20 15:00 99 22 150/26 (67) 100 04/08/20 14:05 Nasal Cannula 2.0 04/08/20 14:00 104 10 149/71 (97) 99 04/08/20 13:09 101 157/67 04/08/20 13:00 102 16 161/62 (95) 98 04/08/20 12:00 101 04/08/20 12:00 98.9 100 17 157/67 (97) 100 04/08/20 12:00 Nasal Cannula 2.0 04/08/20 11:36 98.2 04/08/20 11:00 97 25 140/62 (88) 96 Intake and Output 04/08/20 04/09/20 18:59 06:59 Intake Total 1105 ml 1840 ml Output Total 690 ml 1000 ml Balance 415 ml 840 ml Intake Oral 405 ml 780 ml IV Total 700 ml 1060 ml Output Urine Total 590 ml 1000 ml Stool Total 100 ml # Voids 1 General Appearance: no acute distress HEENT: normocephalic Respiratory: chest wall non-tender, lungs clear Cardiovascular: normal peripheral pulses, normal rate Abdomen: normal bowel sounds Laboratory Tests 04/08/20 12:00: White Blood Count 10.9H, Red Blood Count 2.81L, Hemoglobin 7.2L, Hematocrit 24.8L, Mean Corpuscular Volume 88, Mean Corpuscular Hemoglobin 25.6L, Mean Corpuscular Hemoglobin Concent 29.1L, Red Cell Distribution Width 19.4H, Platelet Count 257, Mean Platelet Volume 7.5, Neutrophils (%) (Auto) , Lymphocytes (%) (Auto) , Monocytes (%) (Auto) , Eosinophils (%) (Auto) , Basophils (%) (Auto) , Differential Total Cells Counted 100, Neutrophils % ( Manual) 83H, Lymphocytes % (Manual) 6L, Monocytes % (Manual) 10, Eosinophils % ( Manual) 0, Basophils % (Manual) 1, Band Neutrophils 0, Platelet Estimate Adequate, Platelet Morphology Normal, Hypochromasia 1+, Anisocytosis 2+ 04/08/20 22:00: White Blood Count 11.6H, Red Blood Count 3.08L, Hemoglobin 8.0L, Hematocrit 27.2L, Mean Corpuscular Volume 88, Mean Corpuscular Hemoglobin 25.8L, Mean Corpuscular Hemoglobin Concent 29.3L, Red Cell Distribution Width 19.9H, Platelet Count 273, Mean Platelet Volume 7.2, Neutrophils (%) (Auto) 83.7H, Lymphocytes (%) (Auto) 7.1L, Monocytes (%) (Auto) 7.1, Eosinophils (%) (Auto) 0.7, Basophils (%) (Auto) 1.4 04/09/20 06:21: White Blood Count 10.7, Red Blood Count 2.81L, Hemoglobin 7.3L, Hematocrit 24.7L , Mean Corpuscular Volume 88, Mean Corpuscular Hemoglobin 26.1L, Mean Corpuscular Hemoglobin Concent 29.6L, Red Cell Distribution Width 18.8H, Platelet Count 279, Mean Platelet Volume 7.4, Neutrophils (%) (Auto) , Lymphocytes (%) (Auto) , Monocytes (%) (Auto) , Eosinophils (%) (Auto) , Basophils (%) (Auto) , Neutrophils % (Manual) [Pending], Lymphocytes % (Manual) [Pending], Platelet Estimate [Pending], Platelet Morphology [Pending], Sodium Level 136, Potassium Level 4.5, Chloride Level 107, Carbon Dioxide Level 25, Anion Gap 4L, Blood Urea Nitrogen 19H, Creatinine 1.2, Estimat Glomerular Filtration Rate 54.3, Glucose Level 100, Calcium Level 8.0L, Phosphorus Level 3.1, Magnesium Level 1.4L, Total Bilirubin 0.2, Aspartate Amino Transf (AST/SGOT ) 23, Alanine Aminotransferase (ALT/SGPT) 7L, Alkaline Phosphatase 76, Total Protein 5.2L, Albumin 1.3L, Globulin 3.9, Albumin/Globulin Ratio 0.3L Current Medications Medications (Trade) Dose Ordered Sig/Debbie Route PRN Reason Start Time Stop Time Status Last Admin Dose Admin Acetaminophen (Tylenol) 650 mg Q4H PRN ORAL Mild Pain (Pain Scale 1-3) 04/09/20 02:45 04/25/20 21:14 Acetaminophen (Tylenol) 650 mg Q4H PRN ORAL Temp >100.5 04/09/20 02:45 04/25/20 21:14 Al Hydroxide/Mg Hydroxide (Mylanta II) 30 ml Q6H PRN ORAL dyspepsia 04/09/20 04:45 04/25/20 21:14 Amiodarone HCl (Cordarone) 400 mg EVERY 12 HOURS ORAL 04/09/20 09:00 07/05/20 20:59 04/09/20 08:22 Bisacodyl (Dulcolax) 10 mg HSPRN PRN RECTAL Constipation 04/08/20 21:15 06/24/20 21:14 Chlorhexidine Gluconate (Laurie-Hex 2%) 1 applic DAILY@1999 TOPIC 04/08/20 20:00 06/26/20 19:59 04/08/20 20:22 Dextrose (Dextrose 50%) 25 ml Q30M PRN IV Hypoglycemia 04/08/20 17:45 06/24/20 21:14 Dextrose (Dextrose 50%) 50 ml Q30M PRN IV Hypoglycemia 04/08/20 17:45 06/24/20 21:14 Diltiazem HCl (Cardizem) 90 mg EVERY 8 HOURS ORAL 04/09/20 06:00 05/04/20 14:59 04/09/20 05:21 Diphenhydramine HCl (Benadryl) 25 mg Q6H PRN ORAL Itching/Pruritis 04/09/20 05:37 04/25/20 17:36 Docusate Sodium (Colace) 100 mg Q12HR ORAL 04/09/20 09:00 04/29/20 08:59 04/09/20 08:22 Gabapentin (Neurontin) 300 mg BEDTIME ORAL 04/09/20 21:00 04/26/20 20:59 Iron Sucrose 100 mg/Sodium Chloride 60 ml @ 240 mls/hr BEDTIME IV 04/08/20 21:00 04/10/20 21:14 04/08/20 22:07 Magnesium Hydroxide (Mom) 30 ml HSPRN PRN ORAL Constipation 04/09/20 01:30 05/08/20 17:38 Meropenem 1 gm/ Sodium Chloride 100 ml @ 200 mls/hr Q8HR IVPB 04/08/20 22:00 04/13/20 21:59 04/09/20 05:12 Metoclopramide HCl (Reglan) 10 mg Q6H PRN IVP Nausea & Vomiting 04/08/20 21:15 04/25/20 21:14 Micafungin Sodium 100 mg/Sodium Chloride 100 ml @ 100 mls/hr Q24H IVPB 04/08/20 20:00 04/11/20 19:59 04/08/20 20:32 Morphine Sulfate (Morphine Sulfate) 2 mg Q4H PRN IVP Moderate Breakthru Pain (5-7) 04/08/20 17:43 04/15/20 17:42 Morphine Sulfate (Morphine Sulfate) 4 mg Q4H PRN IVP Severe Pain (Pain Scale 7-10) 04/08/20 17:43 04/15/20 17:42 04/09/20 09:17 Ondansetron HCl (Zofran) 4 mg Q6H PRN IVP Nausea & Vomiting 04/08/20 17:44 04/25/20 17:43 Pantoprazole (Protonix) 40 mg DAILY IVP 04/09/20 09:00 05/01/20 08:59 04/09/20 08:22 Polyethylene Glycol (Miralax) 17 gm HSPRN PRN ORAL Constipation 04/09/20 01:30 05/08/20 20:59 Polymyxin B Sulfate 447961 units/Dextrose 500 ml @ 500 mls/hr EVERY 12 HOURS IVPB 04/08/20 21:00 04/12/20 20:59 04/09/20 08:21 Rivaroxaban (Xarelto) 15 mg DAILY ORAL 04/09/20 09:00 06/29/20 08:59 04/09/20 08:21 Assessment/Plan Assessment/Plan IMPRESSION: 1. Hyperkalemia. Corrected 2. Tachycardia; resolved 3. Sepsis 4. Hypertension. 5. Seizure disorder. 6. Acute renal failure. 7. Respiratory failure; extubated 04/05/20 DISCUSSION: Correction of electrolytes Continue 2L/min O2 Desai/colostomy care Swallow eval Seven Yao Omar Syed MD Apr 09, 2020 10:21
--- NOTE | 2020-04-09 10:48 | NUR ---
NURSE NOTES: Left messaged and Page Dr. Mendez's office that patient's venous dupplex result came back positive for DVT and Magnesium lab result is 1.4. Awaiting for call back. IV is saline locked, hold fluid at this time. Will continue to monitor.
--- NOTE | 2020-04-09 11:04 | NUR ---
NURSE NOTES: Spoke with Dr. Rogers. under Dr. Mendez's group. ordered to keep PICC line and Xarelto as the current treatment. also ordered Magnesium 1gm x 2 IVPB. Orders acknowledged and carried out.
--- NOTE | 2020-04-09 11:15 | Diagnostic Imaging Report ---
Procedure: XRAY Chest 1v Reason for study: Cough Comparison films: 04/07/2020. FINDINGS: Left PICC line remains in place. Vascularity is normal. There is mildly improved aeration right lung. However left upper lobe infiltrate is slightly increased. Cardiac and mediastinal silhouette are within normal limits. Small left effusion unchanged. The bony thorax appear unremarkable. IMPRESSION: Slightly improved aeration right lung but increased left upper lobe infiltrate.
--- NOTE | 2020-04-09 11:18 | NUR ---
ST NOTE SWALLOW STATUS Patient seen at bedside, has nasal cannula placed and VSS for the duration of the session. Patient reporting +10/10 right leg pain, RN made aware. VITALS ON 2 L NASAL CANNULA: HR: 102; RR: 16; SP02 98% Patient reports not liking current diet texture of Moist Puree with Thin Liquids. Patient completed PO intake of solids (crackers), Patient's swallow is grossly functional. Plan: 1. Upgrade Diet Texture to Soft Solids and continue Thin Liquids; type/supplements per RD. 2. Nursing to assist Patient with oral care BID. 3. CONGRESSIONAL DISTRICT AIDE plans to f/u for diet tolerance and dysphagia tx/management. CONGRESSIONAL DISTRICT AIDE made RN aware of plan for diet texture change and posted aspiration precautions sign above Patient's HOB. CONGRESSIONAL DISTRICT AIDE will continue to follow. [phone]
--- NOTE | 2020-04-09 11:21 | Diagnostic Imaging Report ---
EXAM: ULTRASOUND Venous Duplex Upper EXT UNI CLINICAL HISTORY: Left arm swelling and pain. COMPARISON: None TECHNIQUE: Doppler examination include grayscale images obtained with and without compression, and color and spectral doppler analysis. FINDINGS: Obtained images confirms hypoechoic thrombus identified in the mid basilic vein. The PICC line courses through this area. In addition, there is also thrombus identified in the mid brachial vein. The affected segments show noncompressibility and poor color flow. The other deep venous segments of the left upper extremity otherwise compressible and normally patent. IMPRESSION: HYPOECHOIC THROMBUS AND NONCOMPRESSIBILITY NOTED IN THE MID BASILIC AND MID BRACHIAL VEINS. Critical value findings were communicated to the patient's nurse, Ai. 04/09/2020 AT 10:30 A.M.
--- NOTE | 2020-04-09 11:54 | Nephrology Progress Note ---
Assessment/Plan Plan #VENTURA due to ATN in the setting of rhabdo- on CKD #hyperkalemia #Rhabdo #UTI sepsis #Lactic acidsis #AMS - toxic metabolic encephalopathy #Hypoxemic resp failure #afib with RVR #HLD #Obesity - lasix 40 IV BID - monitor UOP - replete lytes - monitor K,bmp - weiss placed - strict I&Os - cardiology eval - amiodarone, diltiazem - IV iron - monitor hemoglobin - ID consult- - antibiotics per ID - follow cx - monitor BMP, mag and phos daily - PT 30 minutes of critical care time- greater than 50% on care coordination and counseling Subjective ROS Limited/Unobtainable: No Constitutional: Denies: no symptoms, chills, diaphoresis, fever, malaise, weakness, other HEENT: Denies: no symptoms, eye pain, blurred vision, tearing, double vision, ear pain, ear discharge, nose pain, nose congestion, throat pain, throat swelling, mouth pain, mouth swelling, other Genitourinary: Denies: no symptoms, burning, discharge, frequency, flank pain, hematuria, incontinence, pain, urgency, other Neurologic/Psychiatric: Denies: no symptoms, anxiety, depressed, emotional problems, headache, numbness, paresthesia, pre-existing deficit, seizure, tingling, tremors, weakness, other Subjective Cr stable very weak WBC downtrended mag low -repleted on broad abx per ID Hr controlled lasix 40 IV BID Objective Objective Last 24 Hour Vital Signs Date Time Temp Pulse Resp B/P (MAP) Pulse Ox O2 Delivery O2 Flow Rate FiO2 04/09/20 09:47 99.0 04/09/20 08:00 99.0 102 16 146/83 (104) 98 04/09/20 08:00 104 04/09/20 08:00 Nasal Cannula 2.0 04/09/20 05:21 95 166/62 04/09/20 04:00 Nasal Cannula 2.0 04/09/20 04:00 98.1 95 13 146/70 (95) 100 04/09/20 03:36 97 04/09/20 00:00 99.6 96 13 155/68 (97) 100 04/09/20 00:00 Nasal Cannula 2.0 04/08/20 23:20 95 04/08/20 22:26 85 161/58 04/08/20 20:00 99.0 97 13 153/63 (93) 100 04/08/20 20:00 Nasal Cannula 2.0 04/08/20 19:43 96 04/08/20 17:00 99 13 145/82 (103) 100 04/08/20 16:00 99.0 102 20 154/65 (94) 100 04/08/20 16:00 Nasal Cannula 2.0 04/08/20 15:48 97 04/08/20 15:00 99 22 150/26 (67) 100 04/08/20 14:05 Nasal Cannula 2.0 04/08/20 14:00 104 10 149/71 (97) 99 04/08/20 13:09 101 157/67 04/08/20 13:00 102 16 161/62 (95) 98 04/08/20 12:00 101 04/08/20 12:00 98.9 100 17 157/67 (97) 100 04/08/20 12:00 Nasal Cannula 2.0 Intake and Output 04/08/20 04/09/20 19:00 07:00 Intake Total 1105 ml 1840 ml Output Total 660 ml 1000 ml Balance 445 ml 840 ml Intake Oral 405 ml 780 ml IV Total 700 ml 1060 ml Output Urine Total 560 ml 1000 ml Stool Total 100 ml # Voids 1 Laboratory Tests 04/08/20 12:00: White Blood Count 10.9H, Red Blood Count 2.81L, Hemoglobin 7.2L, Hematocrit 24.8L, Mean Corpuscular Volume 88, Mean Corpuscular Hemoglobin 25.6L, Mean Corpuscular Hemoglobin Concent 29.1L, Red Cell Distribution Width 19.4H, Platelet Count 257, Mean Platelet Volume 7.5, Neutrophils (%) (Auto) , Lymphocytes (%) (Auto) , Monocytes (%) (Auto) , Eosinophils (%) (Auto) , Basophils (%) (Auto) , Differential Total Cells Counted 100, Neutrophils % ( Manual) 83H, Lymphocytes % (Manual) 6L, Monocytes % (Manual) 10, Eosinophils % ( Manual) 0, Basophils % (Manual) 1, Band Neutrophils 0, Platelet Estimate Adequate, Platelet Morphology Normal, Hypochromasia 1+, Anisocytosis 2+ 04/08/20 22:00: White Blood Count 11.6H, Red Blood Count 3.08L, Hemoglobin 8.0L, Hematocrit 27.2L, Mean Corpuscular Volume 88, Mean Corpuscular Hemoglobin 25.8L, Mean Corpuscular Hemoglobin Concent 29.3L, Red Cell Distribution Width 19.9H, Platelet Count 273, Mean Platelet Volume 7.2, Neutrophils (%) (Auto) 83.7H, Lymphocytes (%) (Auto) 7.1L, Monocytes (%) (Auto) 7.1, Eosinophils (%) (Auto) 0.7, Basophils (%) (Auto) 1.4 04/09/20 06:21: White Blood Count 10.7, Red Blood Count 2.81L, Hemoglobin 7.3L, Hematocrit 24.7L , Mean Corpuscular Volume 88, Mean Corpuscular Hemoglobin 26.1L, Mean Corpuscular Hemoglobin Concent 29.6L, Red Cell Distribution Width 18.8H, Platelet Count 279, Mean Platelet Volume 7.4, Neutrophils (%) (Auto) , Lymphocytes (%) (Auto) , Monocytes (%) (Auto) , Eosinophils (%) (Auto) , Basophils (%) (Auto) , Differential Total Cells Counted 100, Neutrophils % ( Manual) 82H, Lymphocytes % (Manual) 13L, Monocytes % (Manual) 4, Eosinophils % ( Manual) 1, Basophils % (Manual) 0, Band Neutrophils 0, Platelet Estimate Adequate, Platelet Morphology Normal, Hypochromasia 1+, Anisocytosis 1+, Sodium Level 136, Potassium Level 4.5, Chloride Level 107, Carbon Dioxide Level 25, Anion Gap 4L, Blood Urea Nitrogen 19H, Creatinine 1.2, Estimat Glomerular Filtration Rate 54.3, Glucose Level 100, Calcium Level 8.0L, Phosphorus Level 3.1, Magnesium Level 1.4L, Total Bilirubin 0.2, Aspartate Amino Transf (AST/SGOT ) 23, Alanine Aminotransferase (ALT/SGPT) 7L, Alkaline Phosphatase 76, Total Protein 5.2L, Albumin 1.3L, Globulin 3.9, Albumin/Globulin Ratio 0.3L Height (Feet): 5 Height (Inches): 6.00 Weight (Pounds): 294 Objective General Appearance: other - intubated Lines, tubes and drains: peripheral HEENT: normocephalic, atraumatic Neck: non-tender, normal alignment, supple Respiratory/Chest: lungs clear Cardiovascular/Chest: normal peripheral pulses, tachycardia, irregularly irregular Abdomen: soft Skin Exam: normal pigmentation Neurologic: disoriented Venkat Montes M.D. Apr 09, 2020 11:54
[2020-04-09 12:00] VITALS: BP 142/89
--- NOTE | 2020-04-09 12:10 | NUR ---
RD ASSESSMENT & RECOMMENDATIONS SEE CARE ACTIVITY FOR COMPLETE ASSESSMENT DAILY ESTIMATED NEEDS: Needs based on Pulmonary, sepsis, wound, VENTURA 75.8kg adj 20-30 kcals/kg 3797-4482 total kcals 1.25-1.5 g protein/kg 94-114 g total protein 25-30 mL/kg 7798-5382 total fluid mLs NUTRITION DIAGNOSIS: Swallowing difficulty r/t respiratory status as evidenced by pt orally intubated, on NGT feeds-> now extubated, s/p UNDERWRITING SUPPORT MANAGER evaluation, texture advanced from pureed moist to soft easy chew, thin liquids. CURRENT DIET:CARDIAC, soft easy chew PO DIET RECOMMENDATIONS: Cardiac diet / texture per UNDERWRITING SUPPORT MANAGER ADDITIONAL RECOMMENDATIONS: 1) Mainain calibrated bed scale wts (243lbs vs 217lbs last adm) 2) Monitor PO intake + tolerance -> s/p extubation, now on soft easy chew tedxture 3) Wound healing: MVI x 1, Vit C 500mg QD, ZnSO4 220mg QD x 10 days Boris BID 4) Monitor lytes, replete as needed (low mag) .
--- NOTE | 2020-04-09 12:16 | NUR ---
CASE MANAGEMENT:REVIEW 04/09/20 SI;NOW + DVT . BILATERAL PNA . SINUS RHYTHM . SPUTUM + ECOLI 99.0 102 146/83 98% 2L NC S/P EXTUBATION 6/18 H/H 7.3/24.7 BUN 19 MG 1.4 ALB 1.3 OB STOOL (+) X3 IS;IV POLYMYXIN BID IV MICAFUNGIN QD IV MEROPENEM TID IV IRON SUCROSE QHS AMIODARONE NGT BID CARDIZEM PO TID IV PROTONIX QD XARELTO NGT QD IV MORPHINE SULFATE Q4HR/PRN Venous Duplex Upper EXT UNI-HYPOECHOIC THROMBUS AND NONCOMPRESSIBILITY NOTED IN THE MID BASILIC AND MID BRACHIAL VEINS. XRAY Chest 1v-Slightly improved aeration right lung but increased left upper lobe infiltrate. \: 3E MED SURG UNIT DCP: HOME WHEN STABLE PLAN: + DVT AND SWOLLEN UPPER EXT OB STOOL + X3 WEAN OFF O2 CORRECT ELECTROLYTES MIMS AND COLOSTOMY CARE SWALLOW EVAL
--- NOTE | 2020-04-09 12:57 | NUR ---
DISCHARGE PANNING CM SPOKE WITH PATIENT AT BEDSIDE PATIENT ORIGINALLY FROM HOME [facility] DISCUSSED DISCHARGE PLAN WITH PATIENT PATIENT AGREEABLE TO LONG-TERM FACILITY PLACEMENT PATIENT WILL BE REFERRED TO MD PREFERRED FACILITIES
[2020-04-09] MEDS: HYDROcodone/Acetamin 5/325 tab ORAL PRN (13:10)
--- NOTE | 2020-04-09 13:30 | NUR ---
NURSE NOTES: Dr. Rogers ordered to d/c PICC line d/t DVT and PICC line occlusion. Order acknowledged and carried out. PICC line removed, tip intact, pressure applied with gauze for 2 minutes after catheter removal. No s/s of active bleeding. Will continue to monitor closely.
--- NOTE | 2020-04-09 13:44 | NUR ---
*-*DISCHARGE PLANNING*-* PATIENT HAS BEEN REFERRED TO: [facility] P: [phone] [facility] P: [phone]
--- NOTE | 2020-04-09 13:51 | Cardiac Electrophysiology PN ---
Assessment/Plan Assessment/Plan 1. Atrial flutter with rapid ventricular response of 170s. On Cardizem 90 OG tid and amiodarone 400 po bid On Xarelto 15 mg daily. Would benefit from atrial flutter ablation when stable Decrease Amio to 200 po daily. 2. Hypertension. On Cardizem 3. S/P Respiratory failure, extubated 4. Acute renal failure, that is improving. 5. Normal left ventricular systolic function based on the echocardiogram on March 26, 2020, with EF of 55%. 6. Severe bilateral LE edema. Start Lasix 40 iv bid. Bilateral LE duplex Subjective Subjective In SR on Po Amiodarone and Cardizem.In NAD only on 2 liter NC Objective Last 24 Hour Vital Signs Date Time Temp Pulse Resp B/P (MAP) Pulse Ox O2 Delivery O2 Flow Rate FiO2 04/09/20 12:00 96 04/09/20 12:00 99.7 97 16 142/89 (106) 98 04/09/20 09:47 99.0 04/09/20 08:00 99.0 102 16 146/83 (104) 98 04/09/20 08:00 104 04/09/20 08:00 Nasal Cannula 2.0 04/09/20 05:21 95 166/62 04/09/20 04:00 Nasal Cannula 2.0 04/09/20 04:00 98.1 95 13 146/70 (95) 100 04/09/20 03:36 97 04/09/20 00:00 99.6 96 13 155/68 (97) 100 04/09/20 00:00 Nasal Cannula 2.0 04/08/20 23:20 95 04/08/20 22:26 85 161/58 04/08/20 20:00 99.0 97 13 153/63 (93) 100 04/08/20 20:00 Nasal Cannula 2.0 04/08/20 19:43 96 04/08/20 17:00 99 13 145/82 (103) 100 04/08/20 16:00 99.0 102 20 154/65 (94) 100 04/08/20 16:00 Nasal Cannula 2.0 04/08/20 15:48 97 04/08/20 15:00 99 22 150/26 (67) 100 04/08/20 14:05 Nasal Cannula 2.0 04/08/20 14:00 104 10 149/71 (97) 99 Intake and Output 04/08/20 04/09/20 19:00 07:00 Intake Total 1105 ml 1840 ml Output Total 660 ml 1000 ml Balance 445 ml 840 ml Intake Oral 405 ml 780 ml IV Total 700 ml 1060 ml Output Urine Total 560 ml 1000 ml Stool Total 100 ml # Voids 1 Laboratory Tests Test 04/08/20 22:00 04/09/20 06:21 White Blood Count 11.6 K/UL (4.8-10.8) H 10.7 K/UL (4.8-10.8) Red Blood Count 3.08 M/UL (4.20-5.40) L 2.81 M/UL (4.20-5.40) L Hemoglobin 8.0 G/DL (12.0-16.0) L 7.3 G/DL (12.0-16.0) L Hematocrit 27.2 % (37.0-47.0) L 24.7 % (37.0-47.0) L Mean Corpuscular Volume 88 FL (80-99) 88 FL (80-99) Mean Corpuscular Hemoglobin 25.8 PG (27.0-31.0) L 26.1 PG (27.0-31.0) L Mean Corpuscular Hemoglobin Concent 29.3 G/DL (32.0-36.0) L 29.6 G/DL (32.0-36.0) L Red Cell Distribution Width 19.9 % (11.6-14.8) H 18.8 % (11.6-14.8) H Platelet Count 273 K/UL (150-450) 279 K/UL (150-450) Mean Platelet Volume 7.2 FL (6.5-10.1) 7.4 FL (6.5-10.1) Neutrophils (%) (Auto) 83.7 % (45.0-75.0) H % (45.0-75.0) Lymphocytes (%) (Auto) 7.1 % (20.0-45.0) L % (20.0-45.0) Monocytes (%) (Auto) 7.1 % (1.0-10.0) % (1.0-10.0) Eosinophils (%) (Auto) 0.7 % (0.0-3.0) % (0.0-3.0) Basophils (%) (Auto) 1.4 % (0.0-2.0) % (0.0-2.0) Differential Total Cells Counted 100 Neutrophils % (Manual) 82 % (45-75) H Lymphocytes % (Manual) 13 % (20-45) L Monocytes % (Manual) 4 % (1-10) Eosinophils % (Manual) 1 % (0-3) Basophils % (Manual) 0 % (0-2) Band Neutrophils 0 % (0-8) Platelet Estimate Adequate Platelet Morphology Normal Hypochromasia 1+ Anisocytosis 1+ Sodium Level 136 MMOL/L (136-145) Potassium Level 4.5 MMOL/L (3.5-5.1) Chloride Level 107 MMOL/L (98-107) Carbon Dioxide Level 25 MMOL/L (21-32) Anion Gap 4 mmol/L (5-15) L Blood Urea Nitrogen 19 mg/dL (7-18) H Creatinine 1.2 MG/DL (0.55-1.30) Estimat Glomerular Filtration Rate 54.3 mL/min (>60) Glucose Level 100 MG/DL (74-106) Calcium Level 8.0 MG/DL (8.5-10.1) L Phosphorus Level 3.1 MG/DL (2.5-4.9) Magnesium Level 1.4 MG/DL (1.8-2.4) L Total Bilirubin 0.2 MG/DL (0.2-1.0) Aspartate Amino Transf (AST/SGOT) 23 U/L (15-37) Alanine Aminotransferase (ALT/SGPT) 7 U/L (12-78) L Alkaline Phosphatase 76 U/L (46-116) Total Protein 5.2 G/DL (6.4-8.2) L Albumin 1.3 G/DL (3.4-5.0) L Globulin 3.9 g/dL Albumin/Globulin Ratio 0.3 (1.0-2.7) L Objective NECK: No JVD LUNGS: Coarse rhonchi. CARDIOVASCULAR: Regular S1 and S2 with no gallop. ABDOMEN: Soft. EXTREMITIES: No pitting edema. Carlos Dean MD Apr 09, 2020 13:51
[2020-04-09 14:00] LABS: HEMATOCRIT 26.2 % (37.0-47.0); HEMOGLOBIN 7.7 G/DL (12.0-16.0); MEAN CORPUSCULAR VOLUME 88 FL (80-99); PLATELET COUNT 297 K/UL (150-450); RED BLOOD COUNT 2.98 M/UL (4.20-5.40); RED CELL DISTRIBUTION WIDTH 18.6 % (11.6-14.8); WHITE BLOOD COUNT 10.5 K/UL (4.8-10.8)
--- NOTE | 2020-04-09 14:00 | NUR ---
PT EVALUATION NOTE Patient seen for initial evaluation and treatment initiated. Patient presents with generalized weakness and pain which limits patient's ability to perform mobility tasks safely. Patient requires max/dependent assist of 2 people for bed mobility, unable to come to sitting at the EOB due to pain BLEs. Patient will benefit from skilled inpatient PT intervention to address strength, pain, safety and balance for improved level of functional mobility. Recommend ARU/SNF for further rehab to increase functional mobility once medically cleared by MD. DME needs to be determined based on patient's progress, patient has a FWW and wheelchair at home. Addendum: 04/09/20 at 1431 by UDAY TAYLOR PT Amended: Links added.
--- NOTE | 2020-04-09 14:42 | NUR ---
*-*DISCHARGE PLANNING*-* PATIENT HAS BEEN REFERRED TO: [facility] P: [phone] S/W JOHNSON, WHO STATED, HE REFERRED PATIENT TO [facility], WHO IS WILLING TO ACCEPT PATIENT UPON DISCHARGE, CALL BACK TOMORROW ROOM#.
--- NOTE | 2020-04-09 14:55 | NUR ---
*-*DISCHARGE PLANNING*-* PATIENT HAS BEEN REFERRED TO: [facility] P: [phone] S/W ALYCE, NOT ACCEPTING ANY ADMISSIONS, ON LOCK DOWN
--- NOTE | 2020-04-09 15:10 | Cardiology Progress Note ---
Assessment/Plan Status: stable Assessment/Plan Assessment/Plan Problem List: (1) Atrial flutter ICD Codes: I48.92 - Unspecified atrial flutter SNOMED: 6701670 (2) Hypertension ICD Codes: I10 - Essential (primary) hypertension SNOMED: 88965863 (3) Hyperkalemia ICD Codes: E87.5 - Hyperkalemia SNOMED: 68951838 (4) Acute encephalopathy ICD Codes: G93.40 - Encephalopathy, unspecified SNOMED: 9166140 (5) Acute and chronic respiratory failure with hypoxia ICD Codes: J96.21 - Acute and chronic respiratory failure with hypoxia SNOMED: 13042490, 666724452 (6) VENTURA (acute kidney injury) ICD Codes: N17.9 - Acute kidney failure, unspecified SNOMED: 1410241, 66696463 Status: deteriorating AFIB/Flutter Converted to normal sinus Continue amiodarone to maintain sinus Cardizem for rate control Echocardiogram with normal LV function Ischemia evaluation prior to d/c when stable Continue anticoagulation with xarelto 15 mg EP for ablation as outpatient Subjective Cardiovascular: Reports: no symptoms Respiratory: Reports: no symptoms Gastrointestinal/Abdominal: Reports: no symptoms Genitourinary: Reports: no symptoms Subjective No acute events, patient stable on nasal canula and remains in normal sinus, no fevers, vitals stable, no complaints, stable on floors, amiodarone titrated down Objective Last 24 Hour Vital Signs Date Time Temp Pulse Resp B/P (MAP) Pulse Ox O2 Delivery O2 Flow Rate FiO2 04/09/20 14:13 96 142/89 04/09/20 12:00 96 04/09/20 12:00 99.7 97 16 142/89 (106) 98 04/09/20 09:47 99.0 04/09/20 08:00 99.0 102 16 146/83 (104) 98 04/09/20 08:00 104 04/09/20 08:00 Nasal Cannula 2.0 04/09/20 05:21 95 166/62 04/09/20 04:00 Nasal Cannula 2.0 04/09/20 04:00 98.1 95 13 146/70 (95) 100 04/09/20 03:36 97 04/09/20 00:00 99.6 96 13 155/68 (97) 100 04/09/20 00:00 Nasal Cannula 2.0 04/08/20 23:20 95 04/08/20 22:26 85 161/58 04/08/20 20:00 99.0 97 13 153/63 (93) 100 04/08/20 20:00 Nasal Cannula 2.0 04/08/20 19:43 96 04/08/20 17:00 99 13 145/82 (103) 100 04/08/20 16:00 99.0 102 20 154/65 (94) 100 04/08/20 16:00 Nasal Cannula 2.0 04/08/20 15:48 97 General Appearance: no apparent distress, alert EENT: PERRL/EOMI, normal ENT inspection, TMs normal, pharynx normal Neck: non-tender, normal alignment, supple, normal inspection, no JVD Rhythm: NSR Cardiovascular: normal peripheral pulses, normal rate Respiratory/Chest: chest wall non-tender, lungs clear Abdomen: normal bowel sounds, non tender, soft, no organomegaly Extremities: normal range of motion, non-tender, normal inspection, no calf tenderness Neurologic: phlebotomist lab assistant II-XII grossly normal, no motor/sensory deficits Intake and Output 04/08/20 04/09/20 19:00 07:00 Intake Total 1105 ml 1840 ml Output Total 660 ml 1000 ml Balance 445 ml 840 ml Intake Oral 405 ml 780 ml IV Total 700 ml 1060 ml Output Urine Total 560 ml 1000 ml Stool Total 100 ml # Voids 1 Laboratory Tests Test 04/08/20 22:00 04/09/20 06:21 04/09/20 13:39 White Blood Count 11.6 K/UL (4.8-10.8) H 10.7 K/UL (4.8-10.8) 10.5 K/UL (4.8-10.8) Red Blood Count 3.08 M/UL (4.20-5.40) L 2.81 M/UL (4.20-5.40) L 2.98 M/UL (4.20-5.40) L Hemoglobin 8.0 G/DL (12.0-16.0) L 7.3 G/DL (12.0-16.0) L 7.7 G/DL (12.0-16.0) L Hematocrit 27.2 % (37.0-47.0) L 24.7 % (37.0-47.0) L 26.2 % (37.0-47.0) L Mean Corpuscular Volume 88 FL (80-99) 88 FL (80-99) 88 FL (80-99) Mean Corpuscular Hemoglobin 25.8 PG (27.0-31.0) L 26.1 PG (27.0-31.0) L 25.8 PG (27.0-31.0) L Mean Corpuscular Hemoglobin Concent 29.3 G/DL (32.0-36.0) L 29.6 G/DL (32.0-36.0) L 29.3 G/DL (32.0-36.0) L Red Cell Distribution Width 19.9 % (11.6-14.8) H 18.8 % (11.6-14.8) H 18.6 % (11.6-14.8) H Platelet Count 273 K/UL (150-450) 279 K/UL (150-450) 297 K/UL (150-450) Mean Platelet Volume 7.2 FL (6.5-10.1) 7.4 FL (6.5-10.1) 7.4 FL (6.5-10.1) Neutrophils (%) (Auto) 83.7 % (45.0-75.0) H % (45.0-75.0) % (45.0-75.0) Lymphocytes (%) (Auto) 7.1 % (20.0-45.0) L % (20.0-45.0) % (20.0-45.0) Monocytes (%) (Auto) 7.1 % (1.0-10.0) % (1.0-10.0) % (1.0-10.0) Eosinophils (%) (Auto) 0.7 % (0.0-3.0) % (0.0-3.0) % (0.0-3.0) Basophils (%) (Auto) 1.4 % (0.0-2.0) % (0.0-2.0) % (0.0-2.0) Differential Total Cells Counted 100 100 Neutrophils % (Manual) 82 % (45-75) H 77 % (45-75) H Lymphocytes % (Manual) 13 % (20-45) L 14 % (20-45) L Monocytes % (Manual) 4 % (1-10) 8 % (1-10) Eosinophils % (Manual) 1 % (0-3) 1 % (0-3) Basophils % (Manual) 0 % (0-2) 0 % (0-2) Band Neutrophils 0 % (0-8) 0 % (0-8) Platelet Estimate Adequate Adequate Platelet Morphology Normal Normal Hypochromasia 1+ 1+ Anisocytosis 1+ 1+ Sodium Level 136 MMOL/L (136-145) Potassium Level 4.5 MMOL/L (3.5-5.1) Chloride Level 107 MMOL/L (98-107) Carbon Dioxide Level 25 MMOL/L (21-32) Anion Gap 4 mmol/L (5-15) L Blood Urea Nitrogen 19 mg/dL (7-18) H Creatinine 1.2 MG/DL (0.55-1.30) Estimat Glomerular Filtration Rate 54.3 mL/min (>60) Glucose Level 100 MG/DL (74-106) Calcium Level 8.0 MG/DL (8.5-10.1) L Phosphorus Level 3.1 MG/DL (2.5-4.9) Magnesium Level 1.4 MG/DL (1.8-2.4) L Total Bilirubin 0.2 MG/DL (0.2-1.0) Aspartate Amino Transf (AST/SGOT) 23 U/L (15-37) Alanine Aminotransferase (ALT/SGPT) 7 U/L (12-78) L Alkaline Phosphatase 76 U/L (46-116) Total Protein 5.2 G/DL (6.4-8.2) L Albumin 1.3 G/DL (3.4-5.0) L Globulin 3.9 g/dL Albumin/Globulin Ratio 0.3 (1.0-2.7) L Rafat Crooks MD Apr 09, 2020 15:10
[2020-04-09] MEDS ORDERED: Lexiscan 0.4mg/5ml syringe IV PRN (15:15)
--- NOTE | 2020-04-09 15:18 | Diagnostic Imaging Report ---
EXAM: ULTRASOUND Venous Duplex Scan Cecilio Leg CLINICAL HISTORY: Leg pain and edema. COMPARISON: None TECHNIQUE: Doppler examination include grayscale images obtained with and without compression, and color and spectral doppler analysis. FINDINGS: Study is technically limited related to body habitus. The mid to distal segments of the superficial femoral veins are fairly deep and not well visualized bilaterally. Of the visualized segments, Doppler examination shows normal spontaneity, phasicity, compressibility in both lower extremities. There is no thrombus identified by grayscale. Normal color and spectral flow is identified. There is no evidence of valvular incompetency or insufficiency. IMPRESSION: STUDY LIMITED DUE TO BODY HABITUS AND DEPTH OF VESSELS. NO EVIDENCE OF DVT IN THE VISUALIZED SEGMENTS. HOWEVER THE MID TO DISTAL SFVs ARE NOT WELL SEEN BILATERALLY.
[2020-04-09 16:00] VITALS: BP 142/67
[2020-04-09] MEDS: Acetaminophen 650mg/20.3ml ORAL PRN (16:44)
--- NOTE | 2020-04-09 16:48 | History and Physical ---
History of Present Illness General Reason for Hospitalization: Altered Level of Consciousness Present Illness Allergies: Coded Allergies: LISINOPRIL (Verified Allergy, Unknown, Hives, 04/12/14) COVID-19 Screening Contact w/high risk pt: Yes Recent Travel to affected area: No Experienced COVID-19 symptoms?: Yes COVID-19 symptoms experienced: Fever (T>100.4F or >38C), Shortness of Breath Medication History Scheduled Amlodipine Besylate* (Amlodipine Besylate*), 10 MG ORAL DAILY, (Reported) Baclofen* (Baclofen*), 10 MG ORAL NEEDED, (Reported) Doxazosin Mesylate* (Doxazosin Mesylate*), 4 MG ORAL DAILY, (Reported) Duloxetine Hcl* (Cymbalta*), 60 MG ORAL BID, (Reported) Gabapentin* (Gabapentin*), 300 MG ORAL BEDTIME, (Reported) Hydralazine HCl (Hydralazine HCl), 50 MG ORAL Q6HR Metoprolol Tartrate* (Metoprolol Tartrate*), 100 MG ORAL EVERY 12 HOURS, ( Reported) Phosphorus (Phospha 250 Neutral Tablet), 250 MG ORAL THREE TIMES A DAY Simvastatin (Zocor), 40 MG ORAL BEDTIME, (Reported) Trazodone* (Trazodone*), 200 MG ORAL BEDTIME, (Reported) Scheduled PRN Hydrocodone/Acetaminophen (Hydrocodon-Acetaminophn 10-325), 1 TAB ORAL Q6H PRN for For Pain, (Reported) Patient History Healthcare decision maker Resuscitation status Advanced Directive on File Physical Exam Last 24 Hour Vital Signs Date Time Temp Pulse Resp B/P (MAP) Pulse Ox O2 Delivery O2 Flow Rate FiO2 04/09/20 16:00 99.5 95 15 142/67 (92) 98 04/09/20 14:13 96 142/89 04/09/20 12:00 96 04/09/20 12:00 99.7 97 16 142/89 (106) 98 04/09/20 09:47 99.0 04/09/20 08:00 99.0 102 16 146/83 (104) 98 04/09/20 08:00 104 04/09/20 08:00 Nasal Cannula 2.0 04/09/20 05:21 95 166/62 04/09/20 04:00 Nasal Cannula 2.0 04/09/20 04:00 98.1 95 13 146/70 (95) 100 04/09/20 03:36 97 04/09/20 00:00 99.6 96 13 155/68 (97) 100 04/09/20 00:00 Nasal Cannula 2.0 04/08/20 23:20 95 04/08/20 22:26 85 161/58 04/08/20 20:00 99.0 97 13 153/63 (93) 100 04/08/20 20:00 Nasal Cannula 2.0 04/08/20 19:43 96 04/08/20 17:00 99 13 145/82 (103) 100 Intake and Output 04/08/20 04/09/20 19:00 07:00 Intake Total 1105 ml 1840 ml Output Total 660 ml 1000 ml Balance 445 ml 840 ml Intake Oral 405 ml 780 ml IV Total 700 ml 1060 ml Output Urine Total 560 ml 1000 ml Stool Total 100 ml # Voids 1 Laboratory Tests Test 04/08/20 22:00 04/09/20 06:21 04/09/20 13:39 White Blood Count 11.6 K/UL (4.8-10.8) H 10.7 K/UL (4.8-10.8) 10.5 K/UL (4.8-10.8) Red Blood Count 3.08 M/UL (4.20-5.40) L 2.81 M/UL (4.20-5.40) L 2.98 M/UL (4.20-5.40) L Hemoglobin 8.0 G/DL (12.0-16.0) L 7.3 G/DL (12.0-16.0) L 7.7 G/DL (12.0-16.0) L Hematocrit 27.2 % (37.0-47.0) L 24.7 % (37.0-47.0) L 26.2 % (37.0-47.0) L Mean Corpuscular Volume 88 FL (80-99) 88 FL (80-99) 88 FL (80-99) Mean Corpuscular Hemoglobin 25.8 PG (27.0-31.0) L 26.1 PG (27.0-31.0) L 25.8 PG (27.0-31.0) L Mean Corpuscular Hemoglobin Concent 29.3 G/DL (32.0-36.0) L 29.6 G/DL (32.0-36.0) L 29.3 G/DL (32.0-36.0) L Red Cell Distribution Width 19.9 % (11.6-14.8) H 18.8 % (11.6-14.8) H 18.6 % (11.6-14.8) H Platelet Count 273 K/UL (150-450) 279 K/UL (150-450) 297 K/UL (150-450) Mean Platelet Volume 7.2 FL (6.5-10.1) 7.4 FL (6.5-10.1) 7.4 FL (6.5-10.1) Neutrophils (%) (Auto) 83.7 % (45.0-75.0) H % (45.0-75.0) % (45.0-75.0) Lymphocytes (%) (Auto) 7.1 % (20.0-45.0) L % (20.0-45.0) % (20.0-45.0) Monocytes (%) (Auto) 7.1 % (1.0-10.0) % (1.0-10.0) % (1.0-10.0) Eosinophils (%) (Auto) 0.7 % (0.0-3.0) % (0.0-3.0) % (0.0-3.0) Basophils (%) (Auto) 1.4 % (0.0-2.0) % (0.0-2.0) % (0.0-2.0) Differential Total Cells Counted 100 100 Neutrophils % (Manual) 82 % (45-75) H 77 % (45-75) H Lymphocytes % (Manual) 13 % (20-45) L 14 % (20-45) L Monocytes % (Manual) 4 % (1-10) 8 % (1-10) Eosinophils % (Manual) 1 % (0-3) 1 % (0-3) Basophils % (Manual) 0 % (0-2) 0 % (0-2) Band Neutrophils 0 % (0-8) 0 % (0-8) Platelet Estimate Adequate Adequate Platelet Morphology Normal Normal Hypochromasia 1+ 1+ Anisocytosis 1+ 1+ Sodium Level 136 MMOL/L (136-145) Potassium Level 4.5 MMOL/L (3.5-5.1) Chloride Level 107 MMOL/L (98-107) Carbon Dioxide Level 25 MMOL/L (21-32) Anion Gap 4 mmol/L (5-15) L Blood Urea Nitrogen 19 mg/dL (7-18) H Creatinine 1.2 MG/DL (0.55-1.30) Estimat Glomerular Filtration Rate 54.3 mL/min (>60) Glucose Level 100 MG/DL (74-106) Calcium Level 8.0 MG/DL (8.5-10.1) L Phosphorus Level 3.1 MG/DL (2.5-4.9) Magnesium Level 1.4 MG/DL (1.8-2.4) L Total Bilirubin 0.2 MG/DL (0.2-1.0) Aspartate Amino Transf (AST/SGOT) 23 U/L (15-37) Alanine Aminotransferase (ALT/SGPT) 7 U/L (12-78) L Alkaline Phosphatase 76 U/L (46-116) Total Protein 5.2 G/DL (6.4-8.2) L Albumin 1.3 G/DL (3.4-5.0) L Globulin 3.9 g/dL Albumin/Globulin Ratio 0.3 (1.0-2.7) L Height (Feet): 5 Height (Inches): 6.00 Weight (Pounds): 294 Medications Current Medications Medications (Trade) Dose Ordered Sig/Debbie Route PRN Reason Start Time Stop Time Status Last Admin Dose Admin Acetaminophen (Tylenol) 650 mg Q4H PRN ORAL Mild Pain (Pain Scale 1-3) 04/09/20 02:45 04/25/20 21:14 04/09/20 16:44 Acetaminophen (Tylenol) 650 mg Q4H PRN ORAL Temp >100.5 04/09/20 02:45 04/25/20 21:14 Acetaminophen/ Hydrocodone Bitart ([place] 5/325) 1 tab Q4H PRN ORAL Moderate Pain (Pain Scale 4-6) 04/09/20 12:30 04/16/20 12:29 04/09/20 13:10 Al Hydroxide/Mg Hydroxide (Mylanta II) 30 ml Q6H PRN ORAL dyspepsia 04/09/20 04:45 04/25/20 21:14 Amiodarone HCl (Cordarone) 200 mg DAILY ORAL 04/10/20 09:00 07/05/20 20:59 Bisacodyl (Dulcolax) 10 mg HSPRN PRN RECTAL Constipation 04/08/20 21:15 06/24/20 21:14 Chlorhexidine Gluconate (Laurie-Hex 2%) 1 applic DAILY@2000 TOPIC 04/08/20 20:00 06/26/20 19:59 04/08/20 20:22 Dextrose (Dextrose 50%) 25 ml Q30M PRN IV Hypoglycemia 04/08/20 17:45 06/24/20 21:14 Dextrose (Dextrose 50%) 50 ml Q30M PRN IV Hypoglycemia 04/08/20 17:45 06/24/20 21:14 Diltiazem HCl (Cardizem) 90 mg EVERY 8 HOURS ORAL 04/09/20 06:00 05/04/20 14:59 04/09/20 14:13 Diphenhydramine HCl (Benadryl) 25 mg Q6H PRN ORAL Itching/Pruritis 04/09/20 05:37 04/25/20 17:36 Docusate Sodium (Colace) 100 mg Q12HR ORAL 04/09/20 09:00 04/29/20 08:59 04/09/20 08:22 Furosemide (Lasix) 40 mg EVERY 12 HOURS IV 04/09/20 21:00 05/09/20 20:59 Gabapentin (Neurontin) 300 mg BEDTIME ORAL 04/09/20 21:00 04/26/20 20:59 Iron Sucrose 100 mg/Sodium Chloride 60 ml @ 240 mls/hr BEDTIME IV 04/08/20 21:00 04/10/20 21:14 04/08/20 22:07 Magnesium Hydroxide (Mom) 30 ml HSPRN PRN ORAL Constipation 04/09/20 01:30 05/08/20 17:38 Meropenem 1 gm/ Sodium Chloride 100 ml @ 200 mls/hr Q8HR IVPB 04/08/20 22:00 04/13/20 21:59 04/09/20 14:52 Metoclopramide HCl (Reglan) 10 mg Q6H PRN IVP Nausea & Vomiting 04/08/20 21:15 04/25/20 21:14 Micafungin Sodium 100 mg/Sodium Chloride 100 ml @ 100 mls/hr Q24H IVPB 04/08/20 20:00 04/11/20 19:59 04/08/20 20:32 Morphine Sulfate (Morphine Sulfate) 2 mg Q4H PRN IVP Breakthrough pain 5-10 04/09/20 12:30 04/15/20 17:42 Morphine Sulfate (Morphine Sulfate) 4 mg Q4H PRN IVP Severe Pain (Pain Scale 7-10) 04/08/20 17:43 04/15/20 17:42 04/09/20 14:13 Ondansetron HCl (Zofran) 4 mg Q6H PRN IVP Nausea & Vomiting 04/08/20 17:44 04/25/20 17:43 Pantoprazole (Protonix) 40 mg DAILY IVP 04/09/20 09:00 05/01/20 08:59 04/09/20 08:22 Polyethylene Glycol (Miralax) 17 gm HSPRN PRN ORAL Constipation 04/09/20 01:30 05/08/20 20:59 Polymyxin B Sulfate 135281 units/Dextrose 500 ml @ 500 mls/hr EVERY 12 HOURS IVPB 04/08/20 21:00 04/12/20 23:59 04/09/20 08:21 Regadenoson (Lexiscan) 0.4 mg ONCE PRN IV stress test 04/09/20 15:15 04/11/20 15:14 Rivaroxaban (Xarelto) 15 mg DAILY ORAL 04/09/20 09:00 06/29/20 08:59 04/09/20 08:21 Yon Vidal M.D. Apr 09, 2020 16:48
--- NOTE | 2020-04-09 16:49 | General Progress Note ---
Assessment/Plan Status: stable Assessment/Plan: #Acute Hypoxic Resp Failure- resolved #Afib w/ RVR, now in SR, off heparin gtt and on Xarelto #Acute Renal Failure 2/2 ATN from Rhabo --> BUN and creatinine still very elevated, consider HD if concern of Uremic Encephalopathy; slowly improving #Rhabdo #Sepsis, HCAP/UTI, COVID negative , + ESBL --> Sputum w/ multiple MDR organisms , now requiring aggressive AB #Seizure vs prolonged period of immobility --> once extubated will investigate cause of Rhabdo and try to discern more info #Hx of Colectomy w/ Colostomy #GI Bleed, Acute Anemia due to blood loss, Iron Deficient Plan Appreciate Consultants Extubated and satting well on NC Lasix IV per renal Now Meropenem, Micagungin, Polymoxin, S/P Vancomyin, Cefepime, Flagyl Amiodarone PO, Diltiazem PO, s/p drips DC AC given drop in Hb and + FOBT -> Trend CBC, transfuse for Hb < 7, GI consult (Dr Boyd), f/u rec's IV iron 04/06- [place] IVF per Nephro, may require HD given renal function but output good PT/OT DVT and GI ppx; Tube Feeds Full Code Dispo 1-2d, pending rehab placement I spent 38min on this encounter w/ 19min on care/coordination and counseling I spent 31min on chart review, reviewed h&P, progress notes, documentation consultant notes Subjective Date patient seen: Apr 09, 2020 Time patient seen: 12:30 ROS Limited/Unobtainable: No Constitutional: Reports: weakness HEENT: Reports: no symptoms Cardiovascular: Reports: no symptoms Respiratory: Reports: no symptoms Gastrointestinal/Abdominal: Reports: no symptoms Genitourinary: Reports: no symptoms Neurologic/Psychiatric: Reports: no symptoms Endocrine: Reports: no symptoms Hematologic/Lymphatic: Reports: no symptoms Allergies: Coded Allergies: LISINOPRIL (Verified Allergy, Unknown, Hives, 04/12/14) Subjective No acute o/n events Hgb stable at 7.7 C/o b/l leg pain. Denies chest pain, SOB, cough, f/c Objective Last 24 Hour Vital Signs Date Time Temp Pulse Resp B/P (MAP) Pulse Ox O2 Delivery O2 Flow Rate FiO2 04/09/20 16:00 99.5 95 15 142/67 (92) 98 04/09/20 14:13 96 142/89 04/09/20 12:00 96 04/09/20 12:00 99.7 97 16 142/89 (106) 98 04/09/20 09:47 99.0 04/09/20 08:00 99.0 102 16 146/83 (104) 98 04/09/20 08:00 104 04/09/20 08:00 Nasal Cannula 2.0 04/09/20 05:21 95 166/62 04/09/20 04:00 Nasal Cannula 2.0 04/09/20 04:00 98.1 95 13 146/70 (95) 100 04/09/20 03:36 97 04/09/20 00:00 99.6 96 13 155/68 (97) 100 04/09/20 00:00 Nasal Cannula 2.0 04/08/20 23:20 95 04/08/20 22:26 85 161/58 04/08/20 20:00 99.0 97 13 153/63 (93) 100 04/08/20 20:00 Nasal Cannula 2.0 04/08/20 19:43 96 04/08/20 17:00 99 13 145/82 (103) 100 Intake and Output 04/08/20 04/09/20 19:00 07:00 Intake Total 1105 ml 1840 ml Output Total 660 ml 1000 ml Balance 445 ml 840 ml Intake Oral 405 ml 780 ml IV Total 700 ml 1060 ml Output Urine Total 560 ml 1000 ml Stool Total 100 ml # Voids 1 Laboratory Tests 04/08/20 22:00: White Blood Count 11.6H, Red Blood Count 3.08L, Hemoglobin 8.0L, Hematocrit 27.2L, Mean Corpuscular Volume 88, Mean Corpuscular Hemoglobin 25.8L, Mean Corpuscular Hemoglobin Concent 29.3L, Red Cell Distribution Width 19.9H, Platelet Count 273, Mean Platelet Volume 7.2, Neutrophils (%) (Auto) 83.7H, Lymphocytes (%) (Auto) 7.1L, Monocytes (%) (Auto) 7.1, Eosinophils (%) (Auto) 0.7, Basophils (%) (Auto) 1.4 04/09/20 06:21: White Blood Count 10.7, Red Blood Count 2.81L, Hemoglobin 7.3L, Hematocrit 24.7L , Mean Corpuscular Volume 88, Mean Corpuscular Hemoglobin 26.1L, Mean Corpuscular Hemoglobin Concent 29.6L, Red Cell Distribution Width 18.8H, Platelet Count 279, Mean Platelet Volume 7.4, Neutrophils (%) (Auto) , Lymphocytes (%) (Auto) , Monocytes (%) (Auto) , Eosinophils (%) (Auto) , Basophils (%) (Auto) , Differential Total Cells Counted 100, Neutrophils % ( Manual) 82H, Lymphocytes % (Manual) 13L, Monocytes % (Manual) 4, Eosinophils % ( Manual) 1, Basophils % (Manual) 0, Band Neutrophils 0, Platelet Estimate Adequate, Platelet Morphology Normal, Hypochromasia 1+, Anisocytosis 1+, Sodium Level 136, Potassium Level 4.5, Chloride Level 107, Carbon Dioxide Level 25, Anion Gap 4L, Blood Urea Nitrogen 19H, Creatinine 1.2, Estimat Glomerular Filtration Rate 54.3, Glucose Level 100, Calcium Level 8.0L, Phosphorus Level 3.1, Magnesium Level 1.4L, Total Bilirubin 0.2, Aspartate Amino Transf (AST/SGOT ) 23, Alanine Aminotransferase (ALT/SGPT) 7L, Alkaline Phosphatase 76, Total Protein 5.2L, Albumin 1.3L, Globulin 3.9, Albumin/Globulin Ratio 0.3L 04/09/20 13:39: White Blood Count 10.5, Red Blood Count 2.98L, Hemoglobin 7.7L, Hematocrit 26.2L , Mean Corpuscular Volume 88, Mean Corpuscular Hemoglobin 25.8L, Mean Corpuscular Hemoglobin Concent 29.3L, Red Cell Distribution Width 18.6H, Platelet Count 297, Mean Platelet Volume 7.4, Neutrophils (%) (Auto) , Lymphocytes (%) (Auto) , Monocytes (%) (Auto) , Eosinophils (%) (Auto) , Basophils (%) (Auto) , Differential Total Cells Counted 100, Neutrophils % ( Manual) 77H, Lymphocytes % (Manual) 14L, Monocytes % (Manual) 8, Eosinophils % ( Manual) 1, Basophils % (Manual) 0, Band Neutrophils 0, Platelet Estimate Adequate, Platelet Morphology Normal, Hypochromasia 1+, Anisocytosis 1+ Height (Feet): 5 Height (Inches): 6.00 Weight (Pounds): 294 Objective General: alert, cooperative, no distress, appears stated age Head: normocephalic, without obvious abnormality, atraumatic Eyes: conjunctivae/corneas clear. PERRL, EOM's intact Throat: lips, mucosa, and tongue normal. MMM Neck: supple, symmetrical, trachea midline, and no JVD Lungs: clear to auscultation bilaterally Heart: regular rate and rhythm, S1, S2 normal, no murmur, click, rub or gallop Abdomen: soft, non-tender, non-distended, bowel sounds normal; no masses or organomegaly Extremities: extremities normal, atraumatic, no cyanosis or edema Pulses: 2+ and symmetric Skin: skin color, texture, turgor normal; no rashes or lesions Neurologic: grossly normal, no focal deficits Yon Vidal M.D. Apr 09, 2020 16:49
--- NOTE | 2020-04-09 19:27 | NUR ---
HAND-OFF: Report given to JOSSELYN Correa. Patient's stable, plan of care endorsed.
[2020-04-09 20:00] VITALS: BP 148/77
[2020-04-09 21:13] LABS: HEMATOCRIT 25.4 % (37.0-47.0); HEMOGLOBIN 7.7 G/DL (12.0-16.0); MEAN CORPUSCULAR VOLUME 85 FL (80-99); PLATELET COUNT 300 K/UL (150-450); RED BLOOD COUNT 2.97 M/UL (4.20-5.40); RED CELL DISTRIBUTION WIDTH 19.3 % (11.6-14.8); WHITE BLOOD COUNT 11.2 K/UL (4.8-10.8)
[2020-04-09 21:14] LABS: BASOPHILS % (AUTO) 1.2 % (0.0-2.0); EOSINOPHILS % (AUTO) 0.8 % (0.0-3.0); LYMPHOCYTES % (AUTO) 8.8 % (20.0-45.0); MONOCYTES % (AUTO) 7.8 % (1.0-10.0); NEUTROPHILS % (AUTO) 81.4 % (45.0-75.0)
[2020-04-09] MEDS: Dyna-Hex 2% Top Sol 2oz TOPIC SCH (21:29)
--- NOTE | 2020-04-09 21:30 | NUR ---
NURSE NOTES: Received patient in bed, awake, alert, oriented x4, able to make her needs known, has left lower quadrant colostomy, site is clean dry and intact, F/C is in place for strict I and O, patient is bedbound, IV site is clean dry and intact. Call light is within reach, bed is lowered, locked, alarm is on, will continue to monitor for comfort and safety.
[2020-04-09] MEDS: Iron Sucrose 100 MG in NS 55 ML IV SCH (21:31)
--- NOTE | 2020-04-09 22:05 | Surgery Progress Note ---
Surgery Progress Note Subjective Additional Comments US with thrombus labs wbc elevated anemia improving Objective Last 24 Hour Vital Signs Date Time Temp Pulse Resp B/P (MAP) Pulse Ox O2 Delivery O2 Flow Rate FiO2 04/09/20 21:30 78 128/74 04/09/20 20:00 98.2 85 18 148/77 (100) 95 04/09/20 19:25 99.5 04/09/20 17:23 99.5 04/09/20 16:00 92 04/09/20 16:00 99.5 95 15 142/67 (92) 98 04/09/20 14:13 96 142/89 04/09/20 12:00 96 04/09/20 12:00 99.7 97 16 142/89 (106) 98 04/09/20 08:00 99.0 102 16 146/83 (104) 98 04/09/20 08:00 104 04/09/20 08:00 Nasal Cannula 2.0 04/09/20 05:21 95 166/62 04/09/20 04:00 Nasal Cannula 2.0 04/09/20 04:00 98.1 95 13 146/70 (95) 100 04/09/20 03:36 97 04/09/20 00:00 99.6 96 13 155/68 (97) 100 04/09/20 00:00 Nasal Cannula 2.0 04/08/20 23:20 95 04/08/20 22:26 85 161/58 I&O Intake and Output 04/08/20 04/09/20 19:00 07:00 Intake Total 1105 ml 1840 ml Output Total 660 ml 1000 ml Balance 445 ml 840 ml Intake Oral 405 ml 780 ml IV Total 700 ml 1060 ml Output Urine Total 560 ml 1000 ml Stool Total 100 ml # Voids 1 Dressing: dry Wound: clean Cardiovascular: RSR Respiratory: decreased breath sounds Abdomen: non-tender, present bowel sounds Extremities: edema, no cyanosis Laboratory Tests Test 04/09/20 06:21 04/09/20 13:39 04/09/20 20:50 White Blood Count 10.7 K/UL (4.8-10.8) 10.5 K/UL (4.8-10.8) 11.2 K/UL (4.8-10.8) H Red Blood Count 2.81 M/UL (4.20-5.40) L 2.98 M/UL (4.20-5.40) L 2.97 M/UL (4.20-5.40) L Hemoglobin 7.3 G/DL (12.0-16.0) L 7.7 G/DL (12.0-16.0) L 7.7 G/DL (12.0-16.0) L Hematocrit 24.7 % (37.0-47.0) L 26.2 % (37.0-47.0) L 25.4 % (37.0-47.0) L Mean Corpuscular Volume 88 FL (80-99) 88 FL (80-99) 85 FL (80-99) Mean Corpuscular Hemoglobin 26.1 PG (27.0-31.0) L 25.8 PG (27.0-31.0) L 26.1 PG (27.0-31.0) L Mean Corpuscular Hemoglobin Concent 29.6 G/DL (32.0-36.0) L 29.3 G/DL (32.0-36.0) L 30.5 G/DL (32.0-36.0) L Red Cell Distribution Width 18.8 % (11.6-14.8) H 18.6 % (11.6-14.8) H 19.3 % (11.6-14.8) H Platelet Count 279 K/UL (150-450) 297 K/UL (150-450) 300 K/UL (150-450) Mean Platelet Volume 7.4 FL (6.5-10.1) 7.4 FL (6.5-10.1) 7.1 FL (6.5-10.1) Neutrophils (%) (Auto) % (45.0-75.0) % (45.0-75.0) 81.4 % (45.0-75.0) H Lymphocytes (%) (Auto) % (20.0-45.0) % (20.0-45.0) 8.8 % (20.0-45.0) L Monocytes (%) (Auto) % (1.0-10.0) % (1.0-10.0) 7.8 % (1.0-10.0) Eosinophils (%) (Auto) % (0.0-3.0) % (0.0-3.0) 0.8 % (0.0-3.0) Basophils (%) (Auto) % (0.0-2.0) % (0.0-2.0) 1.2 % (0.0-2.0) Differential Total Cells Counted 100 100 Neutrophils % (Manual) 82 % (45-75) H 77 % (45-75) H Lymphocytes % (Manual) 13 % (20-45) L 14 % (20-45) L Monocytes % (Manual) 4 % (1-10) 8 % (1-10) Eosinophils % (Manual) 1 % (0-3) 1 % (0-3) Basophils % (Manual) 0 % (0-2) 0 % (0-2) Band Neutrophils 0 % (0-8) 0 % (0-8) Platelet Estimate Adequate Adequate Platelet Morphology Normal Normal Hypochromasia 1+ 1+ Anisocytosis 1+ 1+ Sodium Level 136 MMOL/L (136-145) Potassium Level 4.5 MMOL/L (3.5-5.1) Chloride Level 107 MMOL/L (98-107) Carbon Dioxide Level 25 MMOL/L (21-32) Anion Gap 4 mmol/L (5-15) L Blood Urea Nitrogen 19 mg/dL (7-18) H Creatinine 1.2 MG/DL (0.55-1.30) Estimat Glomerular Filtration Rate 54.3 mL/min (>60) Glucose Level 100 MG/DL (74-106) Calcium Level 8.0 MG/DL (8.5-10.1) L Phosphorus Level 3.1 MG/DL (2.5-4.9) Magnesium Level 1.4 MG/DL (1.8-2.4) L Total Bilirubin 0.2 MG/DL (0.2-1.0) Aspartate Amino Transf (AST/SGOT) 23 U/L (15-37) Alanine Aminotransferase (ALT/SGPT) 7 U/L (12-78) L Alkaline Phosphatase 76 U/L (46-116) Total Protein 5.2 G/DL (6.4-8.2) L Albumin 1.3 G/DL (3.4-5.0) L Globulin 3.9 g/dL Albumin/Globulin Ratio 0.3 (1.0-2.7) L Plan Problems: (1) Atrial flutter (2) Hypertension (3) Acute encephalopathy (4) VENTURA (acute kidney injury) (5) Acute and chronic respiratory failure with hypoxia (6) Abscess (7) Fistula (8) Sciatica neuralgia (9) Uncontrolled seizures (10) Forgetfulness (11) Sacral decubitus ulcer Assessment & Plan: Patient identified to have a sacral deep tissue injury upon admission Currently intensive care unit on support Care plan initiated (12) Chronic back pain (13) Overdose of opiate or related narcotic (14) Cellulitis of left leg (15) Pericolonic abscess due to diverticulitis (16) Ventral incisional hernia Assessment & Plan: History of colon resection colostomy Ventral incisional hernia reducible No acute invention monitor parastomal hernia stable ostomy viable and functional no acute intervention planned (17) Chronic pain of both knees (18) Dehydration (19) Hyperkalemia (20) Sepsis Assessment & Plan: Patient admitted identified to have sepsis leukocytosis tachycardia abnormal labs lactic acidosis. Chest x-ray reviewed. Imaging noted. Micro noted. Intensive care unit on support appreciate ICU care Nutritional optimization IV fluids IV antibiotics as per infectious disease tube feeds once stable will follow with recommendations thank you for letting participate patient's care Urosepsis on abx extubated improving downgrade upper ext edema noted US on coag as per heme Patient reports not liking current diet texture of Moist Puree with Thin Liquids. Patient completed PO intake of solids (crackers), Patient's swallow is grossly functional. Plan: 1. Upgrade Diet Texture to Soft Solids and continue Thin Liquids; type/ supplements per RD. 2. Nursing to assist Patient with oral care BID. DAILY ESTIMATED NEEDS: Needs based on Pulmonary, sepsis, wound, VENTURA 75.8kg adj 20-30 kcals/kg 7164-2545 total kcals 1.25-1.5 g protein/kg 94-114 g total protein 25-30 mL/kg 0426-7203 total fluid mLs NUTRITION DIAGNOSIS: Swallowing difficulty r/t respiratory status as evidenced by pt orally intubated, on NGT feeds-> now extubated, pending TRANSCRIPTION eval. PO DIET RECOMMENDATIONS-->>> Cardiac diet / texture per TRANSCRIPTION ENTERAL NUTRITION RECOMMENDATIONS: VITAL AF 1.2 @55ml/hr x24 hrs to provide 1320ml, 1584 kcal, 99g pro, 1071ml free H2O - Maintain at goal as tolerated if not cleared for oral diet by TRANSCRIPTION - Flush per MD/ HOB over 30 degree ADDITIONAL RECOMMENDATIONS: 1) Maintain calibrated bed scale wts (248lbs vs 217lbs last adm) 2) Monitor renal fxn and lytes closely, need for renal formula Creat wnl; lytes low (K,phos,mg) 3) Wound healing: ZnSO4 220mg QD x 10 days+ Boris BID via NGT hold vit C until renal fxn improves 4) NISS w/ TF, h/o DM 5) Monitor po intake if cleared for oral diet; need for snacks/supplements Julian Iglesias Apr 09, 2020 22:05
[2020-04-10] VITALS: BP 147/81
[2020-04-10] MEDS: Morphine Sulfate 4mg/ml Inj (IV USE ONLY) IVP PRN ×4 (03:36→21:33)
[2020-04-10 04:00] VITALS: BP 147/74
[2020-04-10] MEDS: dilTIAZem HCl 90mg tab ORAL SCH ×3 (05:49→22:35)
--- NOTE | 2020-04-10 07:03 | Hematology/Onc Progress Note ---
Assessment/Plan Assessment/Plan Assessment and Recs # Anemia of iron deficiency, with a ferritin that is less than 50 recentrly --> Anemia workup has been ordered, rule out gi bleed --> recheck ferritin, occult was + --> No evidence of hemolysis is noted, peripheral smear has been reviewed. --> Hgb goal >7. Transfuse prn. --> IRon IV x 5 days started 04/06 as ferritin is low --> Medications have been reviewed --> low threshold for gi evaluation in case has occult + --> currently is on XARELTO --> as per Terrance, may need to hold if h /h lower --> hgb trend 8.2-->7.2 --> GI eval prn # Hypercoagulable disorder is on xarelto for afib with rvr --> reviewed cards recs --> if any further bleed, consider hold xarelto --> have dw Pcp --> monitor h/h # Leukocytoisis with gram neg pna, uti, sepsis, fevers, leukocytosis, a.flutter , respiratory failure, atx, dony, + ua, atx --> covid is neg --> abx svetlana and micafungin/polymyx --> as per id recs # Respiratory failure, on vent initially --> now extubated # Renal failure. --> improved # Diabetes. --> endo prn # Hypertension. --> per cards # Diabetes and hypertension, treatment per primary care team. --> a1c goal <8, acchuchecks qac and qhs # Patient with history of altered mental status. --> metabolic encephalopathy # Seizure history. # Chronic neck pain. # Lactic acidsis # HLD # Obesity # Dvt ppx xarelto Appreciate consultation and vanesas RN Subjective Constitutional: Denies: no symptoms, chills, fever, malaise, weakness, other HEENT: Denies: no symptoms, eye pain, blurred vision, tearing, double vision, ear pain, ear discharge, nose pain, nose congestion, throat pain, throat swelling, mouth pain, mouth swelling, other Cardiovascular: Denies: no symptoms, chest pain, edema, irregular heart rate, lightheadedness, palpitations, syncope, other Respiratory: Denies: no symptoms, cough, shortness of breath, SOB with excertion, SOB at rest, sputum, wheezing, other Gastrointestinal/Abdominal: Denies: no symptoms, abdomen distended, abdominal pain, black stools, tarry stools, blood in stool, constipated, diarrhea, difficulty swallowing, nausea, poor appetite, poor fluid intake, rectal bleeding , vomiting, other Genitourinary: Denies: no symptoms, burning, discharge, frequency, flank pain, hematuria, incontinence, pain, urgency, other Neurologic/Psychiatric: Denies: no symptoms, anxiety, depressed, emotional problems, headache, numbness, paresthesia, pre-existing deficit, seizure, tingling, tremors, weakness, other Endocrine: Denies: no symptoms, excessive sweating, flushing, intolerance to cold, intolerance to heat, increased hunger, increased thirst, increased urine, unexplained weight gain, unexplained weight loss, other Allergies: Coded Allergies: LISINOPRIL (Verified Allergy, Unknown, Hives, 04/12/14) Subjective 04/08 labs have been reviewed, no night sweats, eating overnight, labs pending 04/09 awake, alert with picc, labs from am pending, no major events 04/10 no events, dw rn, duplex study reviewed, major vessels show no dvt Objective Objective Current Medications Medications (Trade) Dose Ordered Sig/Debbie Route PRN Reason Start Time Stop Time Status Last Admin Dose Admin Acetaminophen (Tylenol) 650 mg Q4H PRN ORAL Mild Pain (Pain Scale 1-3) 04/09/20 02:45 04/25/20 21:14 04/09/20 16:44 Acetaminophen (Tylenol) 650 mg Q4H PRN ORAL Temp >100.5 04/09/20 02:45 04/25/20 21:14 Acetaminophen/ Hydrocodone Bitart ([place] 5/325) 1 tab Q4H PRN ORAL Moderate Pain (Pain Scale 4-6) 04/09/20 12:30 04/16/20 12:29 04/09/20 13:10 Al Hydroxide/Mg Hydroxide (Mylanta II) 30 ml Q6H PRN ORAL dyspepsia 04/09/20 04:45 04/25/20 21:14 Amiodarone HCl (Cordarone) 200 mg DAILY ORAL 04/10/20 09:00 07/05/20 20:59 Bisacodyl (Dulcolax) 10 mg HSPRN PRN RECTAL Constipation 04/08/20 21:15 06/24/20 21:14 Chlorhexidine Gluconate (Laurie-Hex 2%) 1 applic DAILY@2000 TOPIC 04/08/20 20:00 06/26/20 19:59 04/09/20 21:29 Dextrose (Dextrose 50%) 25 ml Q30M PRN IV Hypoglycemia 04/08/20 17:45 06/24/20 21:14 Dextrose (Dextrose 50%) 50 ml Q30M PRN IV Hypoglycemia 04/08/20 17:45 06/24/20 21:14 Diltiazem HCl (Cardizem) 90 mg EVERY 8 HOURS ORAL 04/09/20 06:00 05/04/20 14:59 04/10/20 05:49 Diphenhydramine HCl (Benadryl) 25 mg Q6H PRN ORAL Itching/Pruritis 04/09/20 05:37 04/25/20 17:36 Docusate Sodium (Colace) 100 mg Q12HR ORAL 04/09/20 09:00 04/29/20 08:59 04/09/20 21:30 Furosemide (Lasix) 40 mg EVERY 12 HOURS IV 04/09/20 21:00 05/09/20 20:59 04/09/20 21:31 Gabapentin (Neurontin) 300 mg BEDTIME ORAL 04/09/20 21:00 04/26/20 20:59 04/09/20 21:30 Iron Sucrose 100 mg/Sodium Chloride 60 ml @ 240 mls/hr BEDTIME IV 04/08/20 21:00 04/10/20 21:14 04/09/20 21:31 Magnesium Hydroxide (Mom) 30 ml HSPRN PRN ORAL Constipation 04/09/20 01:30 05/08/20 17:38 Meropenem 1 gm/ Sodium Chloride 100 ml @ 200 mls/hr Q8HR IVPB 04/08/20 22:00 04/13/20 21:59 04/10/20 05:49 Metoclopramide HCl (Reglan) 10 mg Q6H PRN IVP Nausea & Vomiting 04/08/20 21:15 04/25/20 21:14 Micafungin Sodium 100 mg/Sodium Chloride 100 ml @ 100 mls/hr Q24H IVPB 04/08/20 20:00 04/11/20 19:59 04/09/20 21:30 Morphine Sulfate (Morphine Sulfate) 2 mg Q4H PRN IVP Breakthrough pain 5-10 04/09/20 12:30 04/15/20 17:42 Morphine Sulfate (Morphine Sulfate) 4 mg Q4H PRN IVP Severe Pain (Pain Scale 7-10) 04/08/20 17:43 04/15/20 17:42 04/10/20 03:36 Ondansetron HCl (Zofran) 4 mg Q6H PRN IVP Nausea & Vomiting 04/08/20 17:44 04/25/20 17:43 Pantoprazole (Protonix) 40 mg DAILY IVP 04/09/20 09:00 05/01/20 08:59 04/09/20 08:22 Polyethylene Glycol (Miralax) 17 gm HSPRN PRN ORAL Constipation 04/09/20 01:30 05/08/20 20:59 Polymyxin B Sulfate 111114 units/Dextrose 500 ml @ 500 mls/hr EVERY 12 HOURS IVPB 04/08/20 21:00 04/12/20 23:59 04/09/20 21:50 Regadenoson (Lexiscan) 0.4 mg ONCE PRN IV stress test 04/09/20 15:15 04/11/20 15:14 Rivaroxaban (Xarelto) 15 mg DAILY ORAL 04/09/20 09:00 06/29/20 08:59 04/09/20 08:21 Last 24 Hour Vital Signs Date Time Temp Pulse Resp B/P (MAP) Pulse Ox O2 Delivery O2 Flow Rate FiO2 04/10/20 05:49 78 148/74 04/10/20 04:23 97.3 04/10/20 04:00 96 04/10/20 04:00 99.0 92 18 147/74 (98) 97 04/10/20 00:00 97.3 79 18 147/81 (103) 96 04/10/20 00:00 87 04/09/20 22:28 Nasal Cannula 2.0 04/09/20 21:30 78 128/74 04/09/20 20:19 96 Nasal Cannula 2.0 28 04/09/20 20:00 98.2 85 18 148/77 (100) 95 04/09/20 20:00 86 04/09/20 17:23 99.5 04/09/20 16:00 92 04/09/20 16:00 99.5 95 15 142/67 (92) 98 04/09/20 14:13 96 142/89 04/09/20 12:00 96 04/09/20 12:00 99.7 97 16 142/89 (106) 98 04/09/20 08:00 99.0 102 16 146/83 (104) 98 04/09/20 08:00 104 04/09/20 08:00 Nasal Cannula 2.0 04/09/20 05:21 95 166/62 04/09/20 04:00 Nasal Cannula 2.0 04/09/20 04:00 98.1 95 13 146/70 (95) 100 04/09/20 03:36 97 04/09/20 00:00 99.6 96 13 155/68 (97) 100 04/09/20 00:00 Nasal Cannula 2.0 04/08/20 23:20 95 04/08/20 22:26 85 161/58 04/08/20 20:00 99.0 97 13 153/63 (93) 100 04/08/20 20:00 Nasal Cannula 2.0 04/08/20 19:43 96 04/08/20 17:00 99 13 145/82 (103) 100 04/08/20 16:00 99.0 102 20 154/65 (94) 100 04/08/20 16:00 Nasal Cannula 2.0 04/08/20 15:48 97 04/08/20 15:00 99 22 150/26 (67) 100 04/08/20 14:05 Nasal Cannula 2.0 04/08/20 14:00 104 10 149/71 (97) 99 04/08/20 13:09 101 157/67 04/08/20 13:00 102 16 161/62 (95) 98 04/08/20 12:00 101 04/08/20 12:00 98.9 100 17 157/67 (97) 100 04/08/20 12:00 Nasal Cannula 2.0 04/08/20 11:36 98.2 04/08/20 11:00 97 25 140/62 (88) 96 04/08/20 10:00 99 24 112/52 (72) 100 04/08/20 09:00 103 19 143/83 (103) 99 04/08/20 08:00 98 22 138/85 (102) 100 04/08/20 08:00 102 04/08/20 08:00 Nasal Cannula 2.0 Intake and Output 04/09/20 04/10/20 19:00 07:00 Intake Total 800 ml Output Total 3000 ml 1000 ml Balance -2200 ml -1000 ml Intake Oral 800 ml Output Urine Total 1800 ml 1000 ml Stool Total 1200 ml # Voids 1 # Bowel Movements 2 Labs Test 04/08/20 04:00 04/08/20 05:10 04/08/20 12:00 04/08/20 22:00 Stool Occult Blood Positive (NEGATIVE) White Blood Count 10.4 K/UL (4.8-10.8) 10.9 K/UL (4.8-10.8) 11.6 K/UL (4.8-10.8) Red Blood Count 2.89 M/UL (4.20-5.40) 2.81 M/UL (4.20-5.40) 3.08 M/UL (4.20-5.40) Hemoglobin 7.5 G/DL (12.0-16.0) 7.2 G/DL (12.0-16.0) 8.0 G/DL (12.0-16.0) Hematocrit 25.3 % (37.0-47.0) 24.8 % (37.0-47.0) 27.2 % (37.0-47.0) Mean Corpuscular Volume 88 FL (80-99) 88 FL (80-99) 88 FL (80-99) Mean Corpuscular Hemoglobin 25.9 PG (27.0-31.0) 25.6 PG (27.0-31.0) 25.8 PG (27.0-31.0) Mean Corpuscular Hemoglobin Concent 29.6 G/DL (32.0-36.0) 29.1 G/DL (32.0-36.0) 29.3 G/DL (32.0-36.0) Red Cell Distribution Width 19.5 % (11.6-14.8) 19.4 % (11.6-14.8) 19.9 % (11.6-14.8) Platelet Count 264 K/UL (150-450) 257 K/UL (150-450) 273 K/UL (150-450) Mean Platelet Volume 6.7 FL (6.5-10.1) 7.5 FL (6.5-10.1) 7.2 FL (6.5-10.1) Neutrophils (%) (Auto) % (45.0-75.0) % (45.0-75.0) 83.7 % (45.0-75.0) Lymphocytes (%) (Auto) % (20.0-45.0) % (20.0-45.0) 7.1 % (20.0-45.0) Monocytes (%) (Auto) % (1.0-10.0) % (1.0-10.0) 7.1 % (1.0-10.0) Eosinophils (%) (Auto) % (0.0-3.0) % (0.0-3.0) 0.7 % (0.0-3.0) Basophils (%) (Auto) % (0.0-2.0) % (0.0-2.0) 1.4 % (0.0-2.0) Differential Total Cells Counted 100 100 Neutrophils % (Manual) 78 % (45-75) 83 % (45-75) Lymphocytes % (Manual) 15 % (20-45) 6 % (20-45) Monocytes % (Manual) 7 % (1-10) 10 % (1-10) Eosinophils % (Manual) 0 % (0-3) 0 % (0-3) Basophils % (Manual) 0 % (0-2) 1 % (0-2) Band Neutrophils 0 % (0-8) 0 % (0-8) Platelet Estimate Adequate Adequate Platelet Morphology Normal Normal Hypochromasia 1+ 1+ Anisocytosis 1+ 2+ Sodium Level 142 MMOL/L (136-145) Potassium Level 4.9 MMOL/L (3.5-5.1) Chloride Level 110 MMOL/L (98-107) Carbon Dioxide Level 26 MMOL/L (21-32) Anion Gap 6 mmol/L (5-15) Blood Urea Nitrogen 28 mg/dL (7-18) Creatinine 1.0 MG/DL (0.55-1.30) Estimat Glomerular Filtration Rate > 60 mL/min (>60) Glucose Level 85 MG/DL (74-106) Calcium Level 8.1 MG/DL (8.5-10.1) Phosphorus Level 2.9 MG/DL (2.5-4.9) Magnesium Level 1.8 MG/DL (1.8-2.4) Total Bilirubin 0.1 MG/DL (0.2-1.0) Aspartate Amino Transf (AST/SGOT) 28 U/L (15-37) Alanine Aminotransferase (ALT/SGPT) 7 U/L (12-78) Alkaline Phosphatase 78 U/L (46-116) Total Protein 4.9 G/DL (6.4-8.2) Albumin 1.5 G/DL (3.4-5.0) Globulin 3.4 g/dL Albumin/Globulin Ratio 0.4 (1.0-2.7) Test 04/09/20 06:21 04/09/20 13:39 04/09/20 20:50 04/10/20 06:46 White Blood Count 10.7 K/UL (4.8-10.8) 10.5 K/UL (4.8-10.8) 11.2 K/UL (4.8-10.8) Red Blood Count 2.81 M/UL (4.20-5.40) 2.98 M/UL (4.20-5.40) 2.97 M/UL (4.20-5.40) Hemoglobin 7.3 G/DL (12.0-16.0) 7.7 G/DL (12.0-16.0) 7.7 G/DL (12.0-16.0) Hematocrit 24.7 % (37.0-47.0) 26.2 % (37.0-47.0) 25.4 % (37.0-47.0) Mean Corpuscular Volume 88 FL (80-99) 88 FL (80-99) 85 FL (80-99) Mean Corpuscular Hemoglobin 26.1 PG (27.0-31.0) 25.8 PG (27.0-31.0) 26.1 PG (27.0-31.0) Mean Corpuscular Hemoglobin Concent 29.6 G/DL (32.0-36.0) 29.3 G/DL (32.0-36.0) 30.5 G/DL (32.0-36.0) Red Cell Distribution Width 18.8 % (11.6-14.8) 18.6 % (11.6-14.8) 19.3 % (11.6-14.8) Platelet Count 279 K/UL (150-450) 297 K/UL (150-450) 300 K/UL (150-450) Mean Platelet Volume 7.4 FL (6.5-10.1) 7.4 FL (6.5-10.1) 7.1 FL (6.5-10.1) Neutrophils (%) (Auto) % (45.0-75.0) % (45.0-75.0) 81.4 % (45.0-75.0) Lymphocytes (%) (Auto) % (20.0-45.0) % (20.0-45.0) 8.8 % (20.0-45.0) Monocytes (%) (Auto) % (1.0-10.0) % (1.0-10.0) 7.8 % (1.0-10.0) Eosinophils (%) (Auto) % (0.0-3.0) % (0.0-3.0) 0.8 % (0.0-3.0) Basophils (%) (Auto) % (0.0-2.0) % (0.0-2.0) 1.2 % (0.0-2.0) Differential Total Cells Counted 100 100 Neutrophils % (Manual) 82 % (45-75) 77 % (45-75) Lymphocytes % (Manual) 13 % (20-45) 14 % (20-45) Monocytes % (Manual) 4 % (1-10) 8 % (1-10) Eosinophils % (Manual) 1 % (0-3) 1 % (0-3) Basophils % (Manual) 0 % (0-2) 0 % (0-2) Band Neutrophils 0 % (0-8) 0 % (0-8) Platelet Estimate Adequate Adequate Platelet Morphology Normal Normal Hypochromasia 1+ 1+ Anisocytosis 1+ 1+ Sodium Level 136 MMOL/L (136-145) Potassium Level 4.5 MMOL/L (3.5-5.1) Chloride Level 107 MMOL/L (98-107) Carbon Dioxide Level 25 MMOL/L (21-32) Anion Gap 4 mmol/L (5-15) Blood Urea Nitrogen 19 mg/dL (7-18) Creatinine 1.2 MG/DL (0.55-1.30) Estimat Glomerular Filtration Rate 54.3 mL/min (>60) Glucose Level 100 MG/DL (74-106) Calcium Level 8.0 MG/DL (8.5-10.1) Phosphorus Level 3.1 MG/DL (2.5-4.9) Magnesium Level 1.4 MG/DL (1.8-2.4) Total Bilirubin 0.2 MG/DL (0.2-1.0) Aspartate Amino Transf (AST/SGOT) 23 U/L (15-37) Alanine Aminotransferase (ALT/SGPT) 7 U/L (12-78) Alkaline Phosphatase 76 U/L (46-116) Total Protein 5.2 G/DL (6.4-8.2) Albumin 1.3 G/DL (3.4-5.0) Globulin 3.9 g/dL Albumin/Globulin Ratio 0.3 (1.0-2.7) Height (Feet): 5 Height (Inches): 6.00 Weight (Pounds): 294 Objective Physical Exam Sp02 EP Interpretation: reviewed, normal General: Patient appears chronically ill Head: normocephalic, atraumatic ++ngt Respiratory: , crackles - both lower lobes Cardiovascular: tachycardia Gastrointestinal: non tender, soft Musculoskeletal: other - Patient appears chronically debilitated both lower extremities are extended Neurologic: other - Some verbal response, but chronic disability Skin: no rash : ++Virgil Chowdhury MD Apr 10, 2020 07:03
--- NOTE | 2020-04-10 07:15 | NUR ---
NURSE NOTES: Received patient in bed awake. O2 via NC in place, no SOB or acute distress. IV line infiltrated. Colostomy bag intact. FC intact, draining yellow colored urine. HOB elevated. Bed locked in lowest position. Call light within reach. Will continue plan of care.
[2020-04-10 07:24] LABS: HEMATOCRIT 26.3 % (37.0-47.0); HEMOGLOBIN 7.9 G/DL (12.0-16.0); MEAN CORPUSCULAR VOLUME 88 FL (80-99); PLATELET COUNT 288 K/UL (150-450); RED CELL DISTRIBUTION WIDTH 18.7 % (11.6-14.8); WHITE BLOOD COUNT 10.2 K/UL (4.8-10.8)
[2020-04-10 07:49] LABS: ALANINE AMINOTRANSFERASE 6 U/L (12-78); ALBUMIN 1.3 G/DL (3.4-5.0); ALBUMIN/GLOBULIN RATIO 0.3 (1.0-2.7); ALKALINE PHOSPHATASE 73 U/L (46-116); ANION GAP 6 mmol/L (5-15); ASPARTATE AMINO TRANSFERASE 17 U/L (15-37); BILIRUBIN,TOTAL 0.2 MG/DL (0.2-1.0); BLOOD UREA NITROGEN 16 mg/dL (7-18); CALCIUM 8.5 MG/DL (8.5-10.1); CARBON DIOXIDE 25 MMOL/L (21-32); CHLORIDE 109 MMOL/L (98-107); POTASSIUM 4.1 MMOL/L (3.5-5.1); SODIUM 140 MMOL/L (136-145)
[2020-04-10 08:00] VITALS: BP 176/76
--- NOTE | 2020-04-10 08:22 | NUR ---
NURSE NOTES: Patient transported down for stress test.
--- NOTE | 2020-04-10 08:35 | Nephrology Progress Note ---
Assessment/Plan Plan #VENTURA due to ATN in the setting of rhabdo- on CKD #hyperkalemia #Rhabdo #UTI sepsis #Lactic acidsis #AMS - toxic metabolic encephalopathy #Hypoxemic resp failure #afib with RVR #HLD #Obesity - lasix 40 IV BID - monitor UOP - replete lytes - monitor K,bmp - weiss placed - strict I&Os - cardiology eval - amiodarone, diltiazem - IV iron - monitor hemoglobin - ID consult- - antibiotics per ID - follow cx - monitor BMP, mag and phos daily - PT 30 minutes of critical care time- greater than 50% on care coordination and counseling Subjective Subjective Cr stable very weak WBC downtrended mag low -repleted on broad abx per ID Hr controlled lasix 40 IV BID Objective Objective Last 24 Hour Vital Signs Date Time Temp Pulse Resp B/P (MAP) Pulse Ox O2 Delivery O2 Flow Rate FiO2 04/10/20 08:00 98.6 109 18 176/76 (109) 100 04/10/20 05:49 78 148/74 04/10/20 04:23 97.3 04/10/20 04:00 96 04/10/20 04:00 99.0 92 18 147/74 (98) 97 04/10/20 00:00 97.3 79 18 147/81 (103) 96 04/10/20 00:00 87 04/09/20 22:28 Nasal Cannula 2.0 04/09/20 21:30 78 128/74 04/09/20 20:19 96 Nasal Cannula 2.0 28 04/09/20 20:00 98.2 85 18 148/77 (100) 95 04/09/20 20:00 86 04/09/20 17:23 99.5 04/09/20 16:00 92 04/09/20 16:00 99.5 95 15 142/67 (92) 98 04/09/20 14:13 96 142/89 04/09/20 12:00 96 04/09/20 12:00 99.7 97 16 142/89 (106) 98 Intake and Output 04/09/20 04/10/20 19:00 07:00 Intake Total 800 ml Output Total 3000 ml 1000 ml Balance -2200 ml -1000 ml Intake Oral 800 ml Output Urine Total 1800 ml 1000 ml Stool Total 1200 ml # Voids 1 # Bowel Movements 2 Laboratory Tests 04/09/20 13:39: White Blood Count 10.5, Red Blood Count 2.98L, Hemoglobin 7.7L, Hematocrit 26.2L , Mean Corpuscular Volume 88, Mean Corpuscular Hemoglobin 25.8L, Mean Corpuscular Hemoglobin Concent 29.3L, Red Cell Distribution Width 18.6H, Platelet Count 297, Mean Platelet Volume 7.4, Neutrophils (%) (Auto) , Lymphocytes (%) (Auto) , Monocytes (%) (Auto) , Eosinophils (%) (Auto) , Basophils (%) (Auto) , Differential Total Cells Counted 100, Neutrophils % ( Manual) 77H, Lymphocytes % (Manual) 14L, Monocytes % (Manual) 8, Eosinophils % ( Manual) 1, Basophils % (Manual) 0, Band Neutrophils 0, Platelet Estimate Adequate, Platelet Morphology Normal, Hypochromasia 1+, Anisocytosis 1+ 04/09/20 20:50: White Blood Count 11.2H, Red Blood Count 2.97L, Hemoglobin 7.7L, Hematocrit 25.4L, Mean Corpuscular Volume 85, Mean Corpuscular Hemoglobin 26.1L, Mean Corpuscular Hemoglobin Concent 30.5L, Red Cell Distribution Width 19.3H, Platelet Count 300, Mean Platelet Volume 7.1, Neutrophils (%) (Auto) 81.4H, Lymphocytes (%) (Auto) 8.8L, Monocytes (%) (Auto) 7.8, Eosinophils (%) (Auto) 0.8, Basophils (%) (Auto) 1.2 04/10/20 06:46: White Blood Count 10.2, Red Blood Count 3.00L, Hemoglobin 7.9L, Hematocrit 26.3L , Mean Corpuscular Volume 88, Mean Corpuscular Hemoglobin 26.3L, Mean Corpuscular Hemoglobin Concent 29.9L, Red Cell Distribution Width 18.7H, Platelet Count 288, Mean Platelet Volume 7.0, Neutrophils (%) (Auto) , Lymphocytes (%) (Auto) , Monocytes (%) (Auto) , Eosinophils (%) (Auto) , Basophils (%) (Auto) , Neutrophils % (Manual) [Pending], Lymphocytes % (Manual) [Pending], Platelet Estimate [Pending], Platelet Morphology [Pending], Sodium Level 140, Potassium Level 4.1, Chloride Level 109H, Carbon Dioxide Level 25, Anion Gap 6, Blood Urea Nitrogen 16, Creatinine 1.0, Estimat Glomerular Filtration Rate > 60, Glucose Level 90, Calcium Level 8.5, Ferritin 274, Total Bilirubin 0.2, Aspartate Amino Transf (AST/SGOT) 17, Alanine Aminotransferase ( ALT/SGPT) 6L, Alkaline Phosphatase 73, Total Protein 5.4L, Albumin 1.3L, Globulin 4.1, Albumin/Globulin Ratio 0.3L Height (Feet): 5 Height (Inches): 6.00 Weight (Pounds): 294 Objective General Appearance: other - intubated Lines, tubes and drains: peripheral HEENT: normocephalic, atraumatic Neck: non-tender, normal alignment, supple Respiratory/Chest: lungs clear Cardiovascular/Chest: normal peripheral pulses, tachycardia, irregularly irregular Abdomen: soft Skin Exam: normal pigmentation Neurologic: disoriented Venkat Montes M.D. Apr 10, 2020 08:35
--- NOTE | 2020-04-10 08:46 | NUR ---
CARDIOLOGY The [employer] engineer on panel today - Dr. Moreno - is aware about Hgb 7.7, agrees to do the test at 1pm.
[2020-04-10] MEDS: Xarelto 15mg tab ORAL SCH ×2 (09:00→12:09)
--- NOTE | 2020-04-10 09:16 | NUR ---
Attempted to do Myocardial Perfusion Scan. The patient is unable to tolerate the scan. Informed RN Tracey and cardiology department.
[2020-04-10] MEDS: Pantoprazole Inj IVP SCH (09:32)
[2020-04-10] MEDS: Docusate 100mg/10ml Liq ORAL SCH ×2 (09:32→20:43)
[2020-04-10] MEDS: Amiodarone 200mg tab ORAL SCH (09:33)
[2020-04-10] MEDS: HydrALAZINE 50mg tab ORAL SCH ×3 (09:59→22:36)
--- NOTE | 2020-04-10 10:19 | Cardiac Electrophysiology PN ---
Assessment/Plan Assessment/Plan 1. Atrial flutter with rapid ventricular response of 170s. On Cardizem 90 OG tid and amiodarone 200 po daily On Xarelto 15 mg daily. Would benefit from atrial flutter ablation when stable Ischemia eval per Dr. Crooks( Patient couldn't complete the stress test). 2. Hypertension. On Cardizem 3. S/P Respiratory failure, extubated 4. Acute renal failure, that is improving. 5. Normal left ventricular systolic function by echo on March 26, 2020, with EF of 55%. 6. Severe bilateral LE edema. On Lasix 40 iv bid. Bilateral LE duplex, showed no DVT DW RN Subjective Subjective In SR on PO Amiodarone and Cardizem.In NAD only on 2 liter NC. Stress test cancelled today as she couldn't tolerate it Objective Last 24 Hour Vital Signs Date Time Temp Pulse Resp B/P (MAP) Pulse Ox O2 Delivery O2 Flow Rate FiO2 04/10/20 09:59 176/76 04/10/20 08:00 98.6 109 18 176/76 (109) 100 04/10/20 05:49 78 148/74 04/10/20 04:23 97.3 04/10/20 04:00 96 04/10/20 04:00 99.0 92 18 147/74 (98) 97 04/10/20 00:00 97.3 79 18 147/81 (103) 96 04/10/20 00:00 87 04/09/20 22:28 Nasal Cannula 2.0 04/09/20 21:30 78 128/74 04/09/20 20:19 96 Nasal Cannula 2.0 28 04/09/20 20:00 98.2 85 18 148/77 (100) 95 04/09/20 20:00 86 04/09/20 17:23 99.5 04/09/20 16:00 92 04/09/20 16:00 99.5 95 15 142/67 (92) 98 04/09/20 14:13 96 142/89 04/09/20 12:00 96 04/09/20 12:00 99.7 97 16 142/89 (106) 98 Intake and Output 04/09/20 04/10/20 19:00 07:00 Intake Total 800 ml Output Total 3000 ml 1000 ml Balance -2200 ml -1000 ml Intake Oral 800 ml Output Urine Total 1800 ml 1000 ml Stool Total 1200 ml # Voids 1 # Bowel Movements 2 Laboratory Tests Test 04/09/20 13:39 04/09/20 20:50 04/10/20 06:46 White Blood Count 10.5 K/UL (4.8-10.8) 11.2 K/UL (4.8-10.8) H 10.2 K/UL (4.8-10.8) Red Blood Count 2.98 M/UL (4.20-5.40) L 2.97 M/UL (4.20-5.40) L 3.00 M/UL (4.20-5.40) L Hemoglobin 7.7 G/DL (12.0-16.0) L 7.7 G/DL (12.0-16.0) L 7.9 G/DL (12.0-16.0) L Hematocrit 26.2 % (37.0-47.0) L 25.4 % (37.0-47.0) L 26.3 % (37.0-47.0) L Mean Corpuscular Volume 88 FL (80-99) 85 FL (80-99) 88 FL (80-99) Mean Corpuscular Hemoglobin 25.8 PG (27.0-31.0) L 26.1 PG (27.0-31.0) L 26.3 PG (27.0-31.0) L Mean Corpuscular Hemoglobin Concent 29.3 G/DL (32.0-36.0) L 30.5 G/DL (32.0-36.0) L 29.9 G/DL (32.0-36.0) L Red Cell Distribution Width 18.6 % (11.6-14.8) H 19.3 % (11.6-14.8) H 18.7 % (11.6-14.8) H Platelet Count 297 K/UL (150-450) 300 K/UL (150-450) 288 K/UL (150-450) Mean Platelet Volume 7.4 FL (6.5-10.1) 7.1 FL (6.5-10.1) 7.0 FL (6.5-10.1) Neutrophils (%) (Auto) % (45.0-75.0) 81.4 % (45.0-75.0) H % (45.0-75.0) Lymphocytes (%) (Auto) % (20.0-45.0) 8.8 % (20.0-45.0) L % (20.0-45.0) Monocytes (%) (Auto) % (1.0-10.0) 7.8 % (1.0-10.0) % (1.0-10.0) Eosinophils (%) (Auto) % (0.0-3.0) 0.8 % (0.0-3.0) % (0.0-3.0) Basophils (%) (Auto) % (0.0-2.0) 1.2 % (0.0-2.0) % (0.0-2.0) Differential Total Cells Counted 100 100 Neutrophils % (Manual) 77 % (45-75) H 88 % (45-75) H Lymphocytes % (Manual) 14 % (20-45) L 7 % (20-45) L Monocytes % (Manual) 8 % (1-10) 4 % (1-10) Eosinophils % (Manual) 1 % (0-3) 1 % (0-3) Basophils % (Manual) 0 % (0-2) 0 % (0-2) Band Neutrophils 0 % (0-8) 0 % (0-8) Platelet Estimate Adequate Adequate Platelet Morphology Normal Normal Hypochromasia 1+ Anisocytosis 1+ Sodium Level 140 MMOL/L (136-145) Potassium Level 4.1 MMOL/L (3.5-5.1) Chloride Level 109 MMOL/L (98-107) H Carbon Dioxide Level 25 MMOL/L (21-32) Anion Gap 6 mmol/L (5-15) Blood Urea Nitrogen 16 mg/dL (7-18) Creatinine 1.0 MG/DL (0.55-1.30) Estimat Glomerular Filtration Rate > 60 mL/min (>60) Glucose Level 90 MG/DL (74-106) Calcium Level 8.5 MG/DL (8.5-10.1) Ferritin 274 NG/ML (8-388) Total Bilirubin 0.2 MG/DL (0.2-1.0) Aspartate Amino Transf (AST/SGOT) 17 U/L (15-37) Alanine Aminotransferase (ALT/SGPT) 6 U/L (12-78) L Alkaline Phosphatase 73 U/L (46-116) Total Protein 5.4 G/DL (6.4-8.2) L Albumin 1.3 G/DL (3.4-5.0) L Globulin 4.1 g/dL Albumin/Globulin Ratio 0.3 (1.0-2.7) L Objective NECK: No JVD LUNGS: Coarse rhonchi. CARDIOVASCULAR: Regular S1 and S2 with no gallop. ABDOMEN: Soft. EXTREMITIES: No pitting edema. Carlos Dean MD Apr 10, 2020 10:19
--- NOTE | 2020-04-10 11:10 | NUR ---
*-*DISCHARGE PLANNED*-* PATIENT HAS BEEN ACCEPTED AND [facility] BE [facility] P: [phone] FOR NURSE TO NURSE REPORT ROOM#49.[facility] TRANSPORTATION SET FOR 3:30PM S/W ROGEL[facility] [id number] S/W PATIENTS DAUGHTER, ALMA NUNEZ, WHO IS IN AGREEMENT WITH DISCHARGE PLAN. Addendum: 04/10/20 at 1125 by ARNIE SPENCER CM *-*DISCHARGE PLANNED*-* PATIENT HAS BEEN ACCEPTED AND WILL BE DISCHARGED TO[facility] P: [phone] FOR NURSE TO NURSE REPORT ROOM#49.[facility] TRANSPORT[facility] SET FOR WILL CALL S/W N[facility] [id number] S/W PATIENTS DAUGHTER, ALMA NUNEZ, WHO IS IN AGREEMENT WITH DISCHARGE PLAN.
--- NOTE | 2020-04-10 11:38 | Pulmonology Progress Note ---
Subjective ROS Limited/Unobtainable: No Interval Events: Extubated 04/05/20; doing well on 2L/min O2 Constitutional: Reports: other - alert, nad; Denies: fever HEENT: Repors: no symptoms Respiratory: Reports: no symptoms Cardiovascular: Reports: no symptoms Gastrointestinal/Abdominal: Denies: nausea, vomiting, diarrhea Genitourinary: Reports: no symptoms Psychiatric: Denies: depression Skin: Denies: rash Musculoskeletal: Denies: pain Allergies: Coded Allergies: LISINOPRIL (Verified Allergy, Unknown, Hives, 04/12/14) Objective Last 24 Hour Vital Signs Date Time Temp Pulse Resp B/P (MAP) Pulse Ox O2 Delivery O2 Flow Rate FiO2 04/10/20 09:59 176/76 04/10/20 08:00 98.6 109 18 176/76 (109) 100 04/10/20 05:49 78 148/74 04/10/20 04:23 97.3 04/10/20 04:00 96 04/10/20 04:00 99.0 92 18 147/74 (98) 97 04/10/20 00:00 97.3 79 18 147/81 (103) 96 04/10/20 00:00 87 04/09/20 22:28 Nasal Cannula 2.0 04/09/20 21:30 78 128/74 04/09/20 20:19 96 Nasal Cannula 2.0 28 04/09/20 20:00 98.2 85 18 148/77 (100) 95 04/09/20 20:00 86 04/09/20 17:23 99.5 04/09/20 16:00 92 04/09/20 16:00 99.5 95 15 142/67 (92) 98 04/09/20 14:13 96 142/89 04/09/20 12:00 96 04/09/20 12:00 99.7 97 16 142/89 (106) 98 Intake and Output 04/09/20 04/10/20 19:00 07:00 Intake Total 800 ml Output Total 3000 ml 1000 ml Balance -2200 ml -1000 ml Intake Oral 800 ml Output Urine Total 1800 ml 1000 ml Stool Total 1200 ml # Voids 1 # Bowel Movements 2 General Appearance: no acute distress HEENT: normocephalic Respiratory: chest wall non-tender, lungs clear Cardiovascular: normal peripheral pulses, normal rate Abdomen: normal bowel sounds Laboratory Tests 04/09/20 13:39: White Blood Count 10.5, Red Blood Count 2.98L, Hemoglobin 7.7L, Hematocrit 26.2L , Mean Corpuscular Volume 88, Mean Corpuscular Hemoglobin 25.8L, Mean Corpuscular Hemoglobin Concent 29.3L, Red Cell Distribution Width 18.6H, Platelet Count 297, Mean Platelet Volume 7.4, Neutrophils (%) (Auto) , Lymphocytes (%) (Auto) , Monocytes (%) (Auto) , Eosinophils (%) (Auto) , Basophils (%) (Auto) , Differential Total Cells Counted 100, Neutrophils % ( Manual) 77H, Lymphocytes % (Manual) 14L, Monocytes % (Manual) 8, Eosinophils % ( Manual) 1, Basophils % (Manual) 0, Band Neutrophils 0, Platelet Estimate Adequate, Platelet Morphology Normal, Hypochromasia 1+, Anisocytosis 1+ 04/09/20 20:50: White Blood Count 11.2H, Red Blood Count 2.97L, Hemoglobin 7.7L, Hematocrit 25.4L, Mean Corpuscular Volume 85, Mean Corpuscular Hemoglobin 26.1L, Mean Corpuscular Hemoglobin Concent 30.5L, Red Cell Distribution Width 19.3H, Platelet Count 300, Mean Platelet Volume 7.1, Neutrophils (%) (Auto) 81.4H, Lymphocytes (%) (Auto) 8.8L, Monocytes (%) (Auto) 7.8, Eosinophils (%) (Auto) 0.8, Basophils (%) (Auto) 1.2 04/10/20 06:46: White Blood Count 10.2, Red Blood Count 3.00L, Hemoglobin 7.9L, Hematocrit 26.3L , Mean Corpuscular Volume 88, Mean Corpuscular Hemoglobin 26.3L, Mean Corpuscular Hemoglobin Concent 29.9L, Red Cell Distribution Width 18.7H, Platelet Count 288, Mean Platelet Volume 7.0, Neutrophils (%) (Auto) , Lymphocytes (%) (Auto) , Monocytes (%) (Auto) , Eosinophils (%) (Auto) , Basophils (%) (Auto) , Differential Total Cells Counted 100, Neutrophils % ( Manual) 88H, Lymphocytes % (Manual) 7L, Monocytes % (Manual) 4, Eosinophils % ( Manual) 1, Basophils % (Manual) 0, Band Neutrophils 0, Platelet Estimate Adequate, Platelet Morphology Normal, Sodium Level 140, Potassium Level 4.1, Chloride Level 109H, Carbon Dioxide Level 25, Anion Gap 6, Blood Urea Nitrogen 16, Creatinine 1.0, Estimat Glomerular Filtration Rate > 60, Glucose Level 90, Calcium Level 8.5, Ferritin 274, Total Bilirubin 0.2, Aspartate Amino Transf ( AST/SGOT) 17, Alanine Aminotransferase (ALT/SGPT) 6L, Alkaline Phosphatase 73, Total Protein 5.4L, Albumin 1.3L, Globulin 4.1, Albumin/Globulin Ratio 0.3L Current Medications Medications (Trade) Dose Ordered Sig/Debbie Route PRN Reason Start Time Stop Time Status Last Admin Dose Admin Acetaminophen (Tylenol) 650 mg Q4H PRN ORAL Mild Pain (Pain Scale 1-3) 04/09/20 02:45 04/25/20 21:14 04/09/20 16:44 Acetaminophen (Tylenol) 650 mg Q4H PRN ORAL Temp >100.5 04/09/20 02:45 04/25/20 21:14 Acetaminophen/ Hydrocodone Bitart ([place] 5/325) 1 tab Q4H PRN ORAL Moderate Pain (Pain Scale 4-6) 04/09/20 12:30 04/16/20 12:29 04/09/20 13:10 Al Hydroxide/Mg Hydroxide (Mylanta II) 30 ml Q6H PRN ORAL dyspepsia 04/09/20 04:45 04/25/20 21:14 Amiodarone HCl (Cordarone) 200 mg DAILY ORAL 04/10/20 09:00 07/05/20 20:59 04/10/20 09:33 Bisacodyl (Dulcolax) 10 mg HSPRN PRN RECTAL Constipation 04/08/20 21:15 06/24/20 21:14 Chlorhexidine Gluconate (Laurie-Hex 2%) 1 applic DAILY@1999 TOPIC 04/08/20 20:00 06/26/20 19:59 04/09/20 21:29 Dextrose (Dextrose 50%) 25 ml Q30M PRN IV Hypoglycemia 04/08/20 17:45 06/24/20 21:14 Dextrose (Dextrose 50%) 50 ml Q30M PRN IV Hypoglycemia 04/08/20 17:45 06/24/20 21:14 Diltiazem HCl (Cardizem) 90 mg EVERY 8 HOURS ORAL 04/09/20 06:00 05/04/20 14:59 04/10/20 05:49 Diphenhydramine HCl (Benadryl) 25 mg Q6H PRN ORAL Itching/Pruritis 04/09/20 05:37 04/25/20 17:36 Docusate Sodium (Colace) 100 mg Q12HR ORAL 04/09/20 09:00 04/29/20 08:59 04/10/20 09:32 Furosemide (Lasix) 40 mg EVERY 12 HOURS IV 04/09/20 21:00 05/09/20 20:59 04/10/20 09:33 Gabapentin (Neurontin) 300 mg BEDTIME ORAL 04/09/20 21:00 04/26/20 20:59 04/09/20 21:30 Hydralazine HCl (Apresoline) 50 mg Q8HR ORAL 04/10/20 09:00 07/09/20 08:59 04/10/20 09:59 Iron Sucrose 100 mg/Sodium Chloride 60 ml @ 240 mls/hr BEDTIME IV 04/08/20 21:00 04/10/20 21:14 04/09/20 21:31 Magnesium Hydroxide (Mom) 30 ml HSPRN PRN ORAL Constipation 04/09/20 01:30 05/08/20 17:38 Meropenem 1 gm/ Sodium Chloride 100 ml @ 200 mls/hr Q8HR IVPB 04/08/20 22:00 04/13/20 21:59 04/10/20 05:49 Metoclopramide HCl (Reglan) 10 mg Q6H PRN IVP Nausea & Vomiting 04/08/20 21:15 04/25/20 21:14 Micafungin Sodium 100 mg/Sodium Chloride 100 ml @ 100 mls/hr Q24H IVPB 04/08/20 20:00 04/11/20 19:59 04/09/20 21:30 Morphine Sulfate (Morphine Sulfate) 2 mg Q4H PRN IVP Breakthrough pain 5-10 04/09/20 12:30 04/15/20 17:42 Morphine Sulfate (Morphine Sulfate) 4 mg Q4H PRN IVP Severe Pain (Pain Scale 7-10) 04/08/20 17:43 04/15/20 17:42 04/10/20 09:34 Ondansetron HCl (Zofran) 4 mg Q6H PRN IVP Nausea & Vomiting 04/08/20 17:44 04/25/20 17:43 Pantoprazole (Protonix) 40 mg DAILY IVP 04/09/20 09:00 05/01/20 08:59 04/10/20 09:32 Polyethylene Glycol (Miralax) 17 gm HSPRN PRN ORAL Constipation 04/09/20 01:30 05/08/20 20:59 Polymyxin B Sulfate 601496 units/Dextrose 500 ml @ 500 mls/hr EVERY 12 HOURS IVPB 04/08/20 21:00 04/12/20 23:59 04/09/20 21:50 Regadenoson (Lexiscan) 0.4 mg ONCE PRN IV stress test 04/09/20 15:15 04/11/20 15:14 Rivaroxaban (Xarelto) 15 mg DAILY ORAL 04/09/20 09:00 06/29/20 08:59 04/09/20 08:21 Assessment/Plan Assessment/Plan IMPRESSION: 1. Hyperkalemia. Corrected 2. Tachycardia; resolved 3. Sepsis 4. Hypertension. 5. Seizure disorder. 6. Acute renal failure. 7. Respiratory failure; extubated 04/05/20 DISCUSSION: Correction of electrolytes Continue 2L/min O2 Desai/colostomy care Speech and swallow therapy Seven Yao Omar Syed MD Apr 10, 2020 11:38
[2020-04-10] MEDS: Polymyxin B Sulfate 500,000 UNITS in D5W 500ml 500 ML IVPB SCH ×2 (11:54→23:05)
[2020-04-10 12:00] VITALS: BP 179/69
--- NOTE | 2020-04-10 12:00 | NUR ---
NURSE NOTES: IV line reinserted to right hand g22. Patient unable to tolerate stress test this morning, Dr Dean and Dr Crooks aware.
--- NOTE | 2020-04-10 13:17 | General Progress Note ---
Assessment/Plan Problem List: (1) VENTURA (acute kidney injury) ICD Codes: N17.9 - Acute kidney failure, unspecified SNOMED: 8548613, 59783039 (2) Acute encephalopathy ICD Codes: G93.40 - Encephalopathy, unspecified SNOMED: 9199220 (3) Hypertension ICD Codes: I10 - Essential (primary) hypertension SNOMED: 11827396 (4) Atrial flutter ICD Codes: I48.92 - Unspecified atrial flutter SNOMED: 8536972 (5) Sacral decubitus ulcer ICD Codes: L89.159 - Pressure ulcer of sacral region, unspecified stage SNOMED: 767640063 (6) Chronic back pain ICD Codes: M54.9 - Dorsalgia, unspecified; G89.29 - Other chronic pain SNOMED: 242067288 (7) Sepsis ICD Codes: A41.9 - Sepsis, unspecified organism SNOMED: 44057027 (8) Hyperkalemia ICD Codes: E87.5 - Hyperkalemia SNOMED: 30635912 Status: stable Assessment/Plan: #Acute Hypoxic Resp Failure- resolved - s/p extubation and ICU course - now on NC - CTM resp status - lasix per cards #Afib w/ RVR, now in SR, off heparin gtt and on Xarelto - cont amiodarone , cardizem and hydralazine - Cardiology and EP following, appreciate recs - ischemic w/u and ablation prior to dc - DC AC given drop in Hb and + FOBT -> Trend CBC, transfuse for Hb < 7, GI consult (Dr Boyd), f/u rec's->awaitng cards clearance #Acute Renal Failure 2/2 ATN from Rhabo #Rhabdo - resolved - CTM - Nephrology following, appreciate recs #GI Bleed, Acute Anemia due to blood loss, Iron Deficient - GI following, appreciate recs - awaiting cardiology clearance for scope - fobt positive x 3 #Sepsis, HCAP/UTI, COVID negative , + ESBL - Sputum w/ multiple MDR organisms, now requiring aggressive AB - Now Meropenem, Micagungin, Polymoxin, S/P Vancomyin, Cefepime, Flagyl #Seizure vs prolonged period of immobility # S/P Acute metabolic Encephalopathy #Hx of Colectomy w/ Colostomy DVT and GI ppx; xarelto , holding for bleeding Full Code Dispo 1-2d, pending rehab placement I spent 38min on this encounter w/ 19min on care/coordination and counseling I spent 37min on chart review, reviewed h&P, progress notes, distributed energy systems consultant notes Subjective Date patient seen: Apr 10, 2020 Time patient seen: 10:50 ROS Limited/Unobtainable: No Allergies: Coded Allergies: LISINOPRIL (Verified Allergy, Unknown, Hives, 04/12/14) All Systems: reviewed and negative except above Subjective denies cp, sob did not tolerate cardiac stress test bc of knee pain Objective Last 24 Hour Vital Signs Date Time Temp Pulse Resp B/P (MAP) Pulse Ox O2 Delivery O2 Flow Rate FiO2 04/10/20 12:00 98.1 105 18 179/69 (105) 100 04/10/20 09:59 176/76 04/10/20 08:00 98.6 109 18 176/76 (109) 100 04/10/20 05:49 78 148/74 04/10/20 04:23 97.3 04/10/20 04:00 96 04/10/20 04:00 99.0 92 18 147/74 (98) 97 04/10/20 00:00 97.3 79 18 147/81 (103) 96 04/10/20 00:00 87 04/09/20 22:28 Nasal Cannula 2.0 04/09/20 21:30 78 128/74 04/09/20 20:19 96 Nasal Cannula 2.0 28 04/09/20 20:00 98.2 85 18 148/77 (100) 95 04/09/20 20:00 86 04/09/20 17:23 99.5 04/09/20 16:00 92 04/09/20 16:00 99.5 95 15 142/67 (92) 98 04/09/20 14:13 96 142/89 Intake and Output 04/09/20 04/10/20 19:00 07:00 Intake Total 800 ml Output Total 3000 ml 1000 ml Balance -2200 ml -1000 ml Intake Oral 800 ml Output Urine Total 1800 ml 1000 ml Stool Total 1200 ml # Voids 1 # Bowel Movements 2 Laboratory Tests 04/09/20 13:39: White Blood Count 10.5, Red Blood Count 2.98L, Hemoglobin 7.7L, Hematocrit 26.2L , Mean Corpuscular Volume 88, Mean Corpuscular Hemoglobin 25.8L, Mean Corpuscular Hemoglobin Concent 29.3L, Red Cell Distribution Width 18.6H, Platelet Count 297, Mean Platelet Volume 7.4, Neutrophils (%) (Auto) , Lymphocytes (%) (Auto) , Monocytes (%) (Auto) , Eosinophils (%) (Auto) , Basophils (%) (Auto) , Differential Total Cells Counted 100, Neutrophils % ( Manual) 77H, Lymphocytes % (Manual) 14L, Monocytes % (Manual) 8, Eosinophils % ( Manual) 1, Basophils % (Manual) 0, Band Neutrophils 0, Platelet Estimate Adequate, Platelet Morphology Normal, Hypochromasia 1+, Anisocytosis 1+ 04/09/20 20:50: White Blood Count 11.2H, Red Blood Count 2.97L, Hemoglobin 7.7L, Hematocrit 25.4L, Mean Corpuscular Volume 85, Mean Corpuscular Hemoglobin 26.1L, Mean Corpuscular Hemoglobin Concent 30.5L, Red Cell Distribution Width 19.3H, Platelet Count 300, Mean Platelet Volume 7.1, Neutrophils (%) (Auto) 81.4H, Lymphocytes (%) (Auto) 8.8L, Monocytes (%) (Auto) 7.8, Eosinophils (%) (Auto) 0.8, Basophils (%) (Auto) 1.2 04/10/20 06:46: White Blood Count 10.2, Red Blood Count 3.00L, Hemoglobin 7.9L, Hematocrit 26.3L , Mean Corpuscular Volume 88, Mean Corpuscular Hemoglobin 26.3L, Mean Corpuscular Hemoglobin Concent 29.9L, Red Cell Distribution Width 18.7H, Platelet Count 288, Mean Platelet Volume 7.0, Neutrophils (%) (Auto) , Lymphocytes (%) (Auto) , Monocytes (%) (Auto) , Eosinophils (%) (Auto) , Basophils (%) (Auto) , Differential Total Cells Counted 100, Neutrophils % ( Manual) 88H, Lymphocytes % (Manual) 7L, Monocytes % (Manual) 4, Eosinophils % ( Manual) 1, Basophils % (Manual) 0, Band Neutrophils 0, Platelet Estimate Adequate, Platelet Morphology Normal, Sodium Level 140, Potassium Level 4.1, Chloride Level 109H, Carbon Dioxide Level 25, Anion Gap 6, Blood Urea Nitrogen 16, Creatinine 1.0, Estimat Glomerular Filtration Rate > 60, Glucose Level 90, Calcium Level 8.5, Ferritin 274, Total Bilirubin 0.2, Aspartate Amino Transf ( AST/SGOT) 17, Alanine Aminotransferase (ALT/SGPT) 6L, Alkaline Phosphatase 73, Total Protein 5.4L, Albumin 1.3L, Globulin 4.1, Albumin/Globulin Ratio 0.3L Height (Feet): 5 Height (Inches): 6.00 Weight (Pounds): 294 Objective GENERAL: No acute distress, appears comfortable, alert, obese, anasarca HEENT: NCAT, non-icteric eyes, pupils PERRLA Neck: No cervical lymphadenopathy, trachea midline CV: Regular rate and rhythm, no murmurs rubs or gallops RESP: Clear to auscultation bilaterally, no wheezes/rhonchi/crackles ABD: soft, non-distended, no TTP EXT: Normal muscle tone, +5/5 muscle strength, severe edema bilateral lower extremities NEURO: No obvious deficits, alert and oriented x3 Bell Tanner DO Apr 10, 2020 13:17
--- NOTE | 2020-04-10 15:49 | NUR ---
CASE MANAGEMENT:NOTES PLAN FOR CARE PER DR HERNANDEZ EGD/COLONOSCOPY THURSDAY
[2020-04-10 16:00] VITALS: BP 160/61
--- NOTE | 2020-04-10 16:01 | Cardiology Progress Note ---
Assessment/Plan Status: stable Assessment/Plan Assessment/Plan Problem List: (1) Atrial flutter ICD Codes: I48.92 - Unspecified atrial flutter SNOMED: 0501141 (2) Hypertension ICD Codes: I10 - Essential (primary) hypertension SNOMED: 75284364 (3) Hyperkalemia ICD Codes: E87.5 - Hyperkalemia SNOMED: 78868256 (4) Acute encephalopathy ICD Codes: G93.40 - Encephalopathy, unspecified SNOMED: 9126429 (5) Acute and chronic respiratory failure with hypoxia ICD Codes: J96.21 - Acute and chronic respiratory failure with hypoxia SNOMED: 45890858, 923042842 (6) VENTURA (acute kidney injury) ICD Codes: N17.9 - Acute kidney failure, unspecified SNOMED: 0037715, 65414603 Status: deteriorating AFIB/Flutter: Converted to normal sinus Continue amiodarone to maintain sinus Cardizem for rate control Echocardiogram with normal LV function Ischemia evaluation at later date Continue anticoagulation with xarelto 15 mg (held for endoscopy ) EP for ablation as outpatient Clear to proceed with GI procedures given low risk Subjective Cardiovascular: Reports: no symptoms Respiratory: Reports: no symptoms Gastrointestinal/Abdominal: Reports: no symptoms Genitourinary: Reports: no symptoms Subjective No acute events, patient stable on nasal canula and remains in normal sinus, no fevers, vitals stable, no complaints, stable on floors, amiodarone titrated down She could not complete stress test today due to inability to lay flat GI for endoscopy , xarelto to be held Objective Last 24 Hour Vital Signs Date Time Temp Pulse Resp B/P (MAP) Pulse Ox O2 Delivery O2 Flow Rate FiO2 04/10/20 13:55 105 179/69 04/10/20 13:55 179/69 04/10/20 13:55 105 179/69 04/10/20 12:00 102 04/10/20 12:00 98.1 105 18 179/69 (105) 100 04/10/20 09:59 176/76 04/10/20 09:00 Nasal Cannula 2.0 04/10/20 08:00 98.6 109 18 176/76 (109) 100 04/10/20 08:00 91 04/10/20 05:49 78 148/74 04/10/20 04:23 97.3 04/10/20 04:00 96 04/10/20 04:00 99.0 92 18 147/74 (98) 97 04/10/20 00:00 97.3 79 18 147/81 (103) 96 04/10/20 00:00 87 04/09/20 22:28 Nasal Cannula 2.0 04/09/20 21:30 78 128/74 04/09/20 20:19 96 Nasal Cannula 2.0 28 04/09/20 20:00 98.2 85 18 148/77 (100) 95 04/09/20 20:00 86 04/09/20 17:23 99.5 04/09/20 16:00 92 04/09/20 16:00 99.5 95 15 142/67 (92) 98 General Appearance: alert, mild distress EENT: PERRL/EOMI, TMs normal Neck: non-tender, normal inspection Rhythm: NSR Cardiovascular: normal peripheral pulses, regular rhythm Respiratory/Chest: chest wall non-tender, lungs clear, no respiratory distress Abdomen: non tender, soft, no organomegaly, no mass Extremities: normal range of motion, non-tender, normal inspection Neurologic: cam maker II-XII grossly normal, no motor/sensory deficits Intake and Output 04/09/20 04/10/20 19:00 07:00 Intake Total 800 ml Output Total 3000 ml 1000 ml Balance -2200 ml -1000 ml Intake Oral 800 ml Output Urine Total 1800 ml 1000 ml Stool Total 1200 ml # Voids 1 # Bowel Movements 2 Laboratory Tests Test 04/09/20 20:50 04/10/20 06:46 White Blood Count 11.2 K/UL (4.8-10.8) H 10.2 K/UL (4.8-10.8) Red Blood Count 2.97 M/UL (4.20-5.40) L 3.00 M/UL (4.20-5.40) L Hemoglobin 7.7 G/DL (12.0-16.0) L 7.9 G/DL (12.0-16.0) L Hematocrit 25.4 % (37.0-47.0) L 26.3 % (37.0-47.0) L Mean Corpuscular Volume 85 FL (80-99) 88 FL (80-99) Mean Corpuscular Hemoglobin 26.1 PG (27.0-31.0) L 26.3 PG (27.0-31.0) L Mean Corpuscular Hemoglobin Concent 30.5 G/DL (32.0-36.0) L 29.9 G/DL (32.0-36.0) L Red Cell Distribution Width 19.3 % (11.6-14.8) H 18.7 % (11.6-14.8) H Platelet Count 300 K/UL (150-450) 288 K/UL (150-450) Mean Platelet Volume 7.1 FL (6.5-10.1) 7.0 FL (6.5-10.1) Neutrophils (%) (Auto) 81.4 % (45.0-75.0) H % (45.0-75.0) Lymphocytes (%) (Auto) 8.8 % (20.0-45.0) L % (20.0-45.0) Monocytes (%) (Auto) 7.8 % (1.0-10.0) % (1.0-10.0) Eosinophils (%) (Auto) 0.8 % (0.0-3.0) % (0.0-3.0) Basophils (%) (Auto) 1.2 % (0.0-2.0) % (0.0-2.0) Differential Total Cells Counted 100 Neutrophils % (Manual) 88 % (45-75) H Lymphocytes % (Manual) 7 % (20-45) L Monocytes % (Manual) 4 % (1-10) Eosinophils % (Manual) 1 % (0-3) Basophils % (Manual) 0 % (0-2) Band Neutrophils 0 % (0-8) Platelet Estimate Adequate Platelet Morphology Normal Sodium Level 140 MMOL/L (136-145) Potassium Level 4.1 MMOL/L (3.5-5.1) Chloride Level 109 MMOL/L (98-107) H Carbon Dioxide Level 25 MMOL/L (21-32) Anion Gap 6 mmol/L (5-15) Blood Urea Nitrogen 16 mg/dL (7-18) Creatinine 1.0 MG/DL (0.55-1.30) Estimat Glomerular Filtration Rate > 60 mL/min (>60) Glucose Level 90 MG/DL (74-106) Calcium Level 8.5 MG/DL (8.5-10.1) Ferritin 274 NG/ML (8-388) Total Bilirubin 0.2 MG/DL (0.2-1.0) Aspartate Amino Transf (AST/SGOT) 17 U/L (15-37) Alanine Aminotransferase (ALT/SGPT) 6 U/L (12-78) L Alkaline Phosphatase 73 U/L (46-116) Total Protein 5.4 G/DL (6.4-8.2) L Albumin 1.3 G/DL (3.4-5.0) L Globulin 4.1 g/dL Albumin/Globulin Ratio 0.3 (1.0-2.7) L Rafat Crooks MD Apr 10, 2020 16:01
--- NOTE | 2020-04-10 16:31 | NUR ---
SPEECH PATHOLOGY NOTE/DYSPHAGIA MANAGEMENT PATIENT SEEN FOR FOLLOWUP DYSPHAGIA TX SESSION, CLEARED BY RN RAMESH. PER CONVERSATION WITH PHOTOGRAPHER PORTRAIT, PATIENT'S EFFORTS TO FEED HERSELF RESULTS IN MASSIVE SPILLAGE DUE TO LACK OF UE COORDINATION, CONSEQUENTLY, PHOTOGRAPHER PORTRAIT FED PATIENT AND THIS CHANGE IN NEED FOR ASSIST WAS NOTED ON MEALTIME PROTOCOL POSTED AT BEDSIDE. PATIENT TOLERATED P.O. TRIALS WITH SOFT SOLID (CRACKERS) WITH NO OVERT S/S OF ASPIRATION. PER HER REPORT, PRIOR TO ADMISSION AND WHILE LIVING AT HOME, THE PATIENT WAS ABLE TO COMPLETE ADLS RELATIVE TO DRESSING/BATHING/SELF FEEDING. POST HOSPITALIZATION, SHE PRESENTS WITH UE WEAKNESS/INCOORDINATION WHICH RESULTS IN SELF FEEDING WITH EXCESSIVE SPILLAGE. RECOMMENDATIONS 1. CONTINUE ADVANCED TEXTURE DIET OF SOFT CHOPPED SOLIDS AND THIN LIQUIDS 2. TOTAL ASSIST BY STAFF FOR MEALS 3. STAFF TO PROVIDE ORAL CARE 3X DAILY TO MINIMIZE DEVELOPMENT OF ORAL PATHOGENS 4. OCCUPATIONAL THERAPY RECOMMENDED IN HOUSE OR IN DISCHARGE SETTING TO ADDRESS DEFICITS IN UE STRENGTH/INCOORDINATION.
--- NOTE | 2020-04-10 16:44 | Consultation ---
DATE OF CONSULTATION: 04/10/2020 GASTROENTEROLOGY CONSULTATION CONSULTING PHYSICIAN: Arturo Boyd MD CHIEF COMPLAINT: Anemia, stool OB positive. HISTORY OF PRESENT ILLNESS: This is a 69-year-old female with numerous medical problems, which I will dictate in a second, was admitted to the hospital with respiratory failure requiring intubation initially and now is extubated. The patient also has atrial fibrillation with rapid response, which is being followed by irrigation engineer. GI consultation was requested for evaluation of anemia and stool OB being positive. According to the patient, she never had an endoscopy and colonoscopy before. Denies any significant abdominal pain at this time. No nausea. No vomiting. No dysphagia. No odynophagia. PAST MEDICAL HISTORY: 1. History of diabetes. 2. Obesity. 3. Hypertension. 4. Hypercholesterolemia. 5. Diverticulosis/diverticulitis. 6. History of uterine fibroids. 7. Tonsillectomy. ALLERGIES: Lisinopril. MEDICATIONS: Please see medication reconciliation list. FAMILY HISTORY: Noncontributory. PAST SURGICAL HISTORY: As dictated above. PHYSICAL EXAMINATION: VITAL SIGNS: Temperature 98.6, pulse is 109, respirations 18, blood pressure /76. HEENT: Normocephalic and atraumatic. Mild pale conjunctivae. NECK: Supple. No evidence of obvious lymphadenopathy. CARDIOVASCULAR: The patient has irregularly irregular. Plus S1, S2. There is a murmur in the left sternal border. LUNGS: Decreased breath sounds bilaterally diffusely on the supine exam. ABDOMEN: Soft, nontender. No rebound. No guarding. No peritoneal sign. EXTREMITIES: Bilateral lower extremity edema. LABORATORY DATA: White count is 10, hemoglobin 7.9, hematocrit 26, platelet count 228,000. BUN and creatinine is normal. Stool OB positive x3. ASSESSMENT AND PLAN: This is a 69-year-old female with significant cardiac problems, who has stool OB positive and significant anemia. The patient needs an endoscopy and colonoscopy given the stool being positive for blood x3, but the patient needed to have a stress test done today. According to her, she could not complete the stress test today. Reviewing Dr. Dean knows also the patient needs to have cardiac ablation. At this time, it seems that the patient might not cardiac-bautista to be stable for GI procedure. Plan will be to monitor H and H, transfuse as needed. The patient to be on a PPI for GI prophylaxis. We will consider doing endoscopy and colonoscopy when the patient is more stable and needs to be off of Xarelto. Arturo Boyd M.D. DR: KIRSTIN JOB#: [id number] CC:
--- NOTE | 2020-04-10 18:03 | Surgery Progress Note ---
Surgery Progress Note Subjective Symptoms: improved, pain absent, tolerating diet, passing flatus Objective Last 24 Hour Vital Signs Date Time Temp Pulse Resp B/P (MAP) Pulse Ox O2 Delivery O2 Flow Rate FiO2 04/10/20 16:00 100.0 84 18 160/61 (94) 100 04/10/20 13:55 105 179/69 04/10/20 13:55 179/69 04/10/20 13:55 105 179/69 04/10/20 12:00 102 04/10/20 12:00 98.1 105 18 179/69 (105) 100 04/10/20 09:59 176/76 04/10/20 09:00 Nasal Cannula 2.0 04/10/20 08:00 98.6 109 18 176/76 (109) 100 04/10/20 08:00 91 04/10/20 05:49 78 148/74 04/10/20 04:23 97.3 04/10/20 04:00 96 04/10/20 04:00 99.0 92 18 147/74 (98) 97 04/10/20 00:00 97.3 79 18 147/81 (103) 96 04/10/20 00:00 87 04/09/20 22:28 Nasal Cannula 2.0 04/09/20 21:30 78 128/74 04/09/20 20:19 96 Nasal Cannula 2.0 28 04/09/20 20:00 98.2 85 18 148/77 (100) 95 04/09/20 20:00 86 I&O Intake and Output 04/09/20 04/10/20 19:00 07:00 Intake Total 800 ml Output Total 3000 ml 1000 ml Balance -2200 ml -1000 ml Intake Oral 800 ml Output Urine Total 1800 ml 1000 ml Stool Total 1200 ml # Voids 1 # Bowel Movements 2 Dressing: dry Wound: clean Cardiovascular: RSR Respiratory: clear Abdomen: soft, non-tender, present bowel sounds Extremities: no edema, no tenderness, no cyanosis Laboratory Tests Test 04/09/20 20:50 04/10/20 06:46 White Blood Count 11.2 K/UL (4.8-10.8) H 10.2 K/UL (4.8-10.8) Red Blood Count 2.97 M/UL (4.20-5.40) L 3.00 M/UL (4.20-5.40) L Hemoglobin 7.7 G/DL (12.0-16.0) L 7.9 G/DL (12.0-16.0) L Hematocrit 25.4 % (37.0-47.0) L 26.3 % (37.0-47.0) L Mean Corpuscular Volume 85 FL (80-99) 88 FL (80-99) Mean Corpuscular Hemoglobin 26.1 PG (27.0-31.0) L 26.3 PG (27.0-31.0) L Mean Corpuscular Hemoglobin Concent 30.5 G/DL (32.0-36.0) L 29.9 G/DL (32.0-36.0) L Red Cell Distribution Width 19.3 % (11.6-14.8) H 18.7 % (11.6-14.8) H Platelet Count 300 K/UL (150-450) 288 K/UL (150-450) Mean Platelet Volume 7.1 FL (6.5-10.1) 7.0 FL (6.5-10.1) Neutrophils (%) (Auto) 81.4 % (45.0-75.0) H % (45.0-75.0) Lymphocytes (%) (Auto) 8.8 % (20.0-45.0) L % (20.0-45.0) Monocytes (%) (Auto) 7.8 % (1.0-10.0) % (1.0-10.0) Eosinophils (%) (Auto) 0.8 % (0.0-3.0) % (0.0-3.0) Basophils (%) (Auto) 1.2 % (0.0-2.0) % (0.0-2.0) Differential Total Cells Counted 100 Neutrophils % (Manual) 88 % (45-75) H Lymphocytes % (Manual) 7 % (20-45) L Monocytes % (Manual) 4 % (1-10) Eosinophils % (Manual) 1 % (0-3) Basophils % (Manual) 0 % (0-2) Band Neutrophils 0 % (0-8) Platelet Estimate Adequate Platelet Morphology Normal Sodium Level 140 MMOL/L (136-145) Potassium Level 4.1 MMOL/L (3.5-5.1) Chloride Level 109 MMOL/L (98-107) H Carbon Dioxide Level 25 MMOL/L (21-32) Anion Gap 6 mmol/L (5-15) Blood Urea Nitrogen 16 mg/dL (7-18) Creatinine 1.0 MG/DL (0.55-1.30) Estimat Glomerular Filtration Rate > 60 mL/min (>60) Glucose Level 90 MG/DL (74-106) Calcium Level 8.5 MG/DL (8.5-10.1) Ferritin 274 NG/ML (8-388) Total Bilirubin 0.2 MG/DL (0.2-1.0) Aspartate Amino Transf (AST/SGOT) 17 U/L (15-37) Alanine Aminotransferase (ALT/SGPT) 6 U/L (12-78) L Alkaline Phosphatase 73 U/L (46-116) Total Protein 5.4 G/DL (6.4-8.2) L Albumin 1.3 G/DL (3.4-5.0) L Globulin 4.1 g/dL Albumin/Globulin Ratio 0.3 (1.0-2.7) L Plan Problems: (1) Atrial flutter (2) Hypertension (3) Acute encephalopathy (4) VENTURA (acute kidney injury) (5) Acute and chronic respiratory failure with hypoxia (6) Abscess (7) Fistula (8) Sciatica neuralgia (9) Uncontrolled seizures (10) Forgetfulness (11) Sacral decubitus ulcer Assessment & Plan: Patient identified to have a sacral deep tissue injury upon admission Currently intensive care unit on support Care plan initiated (12) Chronic back pain (13) Overdose of opiate or related narcotic (14) Cellulitis of left leg (15) Pericolonic abscess due to diverticulitis (16) Ventral incisional hernia Assessment & Plan: History of colon resection colostomy Ventral incisional hernia reducible No acute invention monitor parastomal hernia stable ostomy viable and functional no acute intervention planned (17) Chronic pain of both knees (18) Dehydration (19) Hyperkalemia (20) Sepsis Assessment & Plan: Patient admitted identified to have sepsis leukocytosis tachycardia abnormal labs lactic acidosis. Chest x-ray reviewed. Imaging noted. Micro noted. Intensive care unit on support appreciate ICU care Nutritional optimization IV fluids IV antibiotics as per infectious disease tube feeds once stable will follow with recommendations thank you for letting participate patient's care Urosepsis on abx extubated improving downgrade upper ext edema noted US on coag as per heme Patient reports not liking current diet texture of Moist Puree with Thin Liquids. Patient completed PO intake of solids (crackers), Patient's swallow is grossly functional. Plan: 1. Upgrade Diet Texture to Soft Solids and continue Thin Liquids; type/ supplements per RD. 2. Nursing to assist Patient with oral care BID. DAILY ESTIMATED NEEDS: Needs based on Pulmonary, sepsis, wound, VENTURA 75.8kg adj 20-30 kcals/kg 9560-9667 total kcals 1.25-1.5 g protein/kg 94-114 g total protein 25-30 mL/kg 9011-8901 total fluid mLs NUTRITION DIAGNOSIS: Swallowing difficulty r/t respiratory status as evidenced by pt orally intubated, on NGT feeds-> now extubated, pending [employer] eval. PO DIET RECOMMENDATIONS-->>> Cardiac diet / texture per [employer] ENTERAL NUTRITION RECOMMENDATIONS: VITAL AF 1.2 @55ml/hr x24 hrs to provide 1320ml, 1584 kcal, 99g pro, 1071ml free H2O - Maintain at goal as tolerated if not cleared for oral diet by [employer] - Flush per MD/ HOB over 30 degree ADDITIONAL RECOMMENDATIONS: 1) Maintain calibrated bed scale wts (248lbs vs 217lbs last adm) 2) Monitor renal fxn and lytes closely, need for renal formula Creat wnl; lytes low (K,phos,mg) 3) Wound healing: ZnSO4 220mg QD x 10 days+ Boris BID via NGT hold vit C until renal fxn improves 4) NISS w/ TF, h/o DM 5) Monitor po intake if cleared for oral diet; need for snacks/supplements Julian Iglseias Apr 10, 2020 18:03
[2020-04-10] MEDS ORDERED: NS 275ml ONE (19:07)
--- NOTE | 2020-04-10 19:20 | NUR ---
NURSE NOTES: Received report from Tracey Marvin RN. Pt in stable condition, denies pain. Will continue plan of care and close monitoring.
--- NOTE | 2020-04-10 19:37 | NUR ---
HAND-OFF: Report given to Deborah ARCOS.
--- NOTE | 2020-04-10 19:44 | Infectious Diseases Prog Note ---
Assessment/Plan Assessment/Plan ASSESSMENT AND PLAN: 1. esbl e.coli pna/acinetobacter pna, uti, sepsis, fevers, leukocytosis, a.flutter, respiratory failure, atx, dony, + ua, atx fungemia risk - meropenem, polymyxin x 2 days more, micafungin - day # 7 - extubated, lgt noted, 04/09/20 chest x-ray improved - covid-19 testing negative x 2 - monitor labs and chest x-ray, surveillance cultures for low grade temps 2. Respiratory failure, on vent. 3. Renal failure. 4. Diabetes. 5. Hypertension. 6. Diabetes and hypertension, treatment per primary care team. 7. Patient with history of altered mental status. 8. Seizure history. 9. Chronic neck pain. 10. Acute kidney injury and renal failure. 11. Allergies to lisinopril. 12. Social history is negative. 13. Family history is noncontributory. 14. MAR was noted. 15. Case was discussed with RN. 16. ICU care. 17. Skin care. 18. Continue treatment per primary consultants. Subjective Constitutional: Reports: fever HEENT: Reports: congestion - mild Respiratory: Reports: shortness of breath - mild Gastrointestinal/Abdominal: Denies: nausea, vomiting, diarrhea Genitourinary: Reports: other - + weiss Neurologic: Denies: headache Skin: Denies: rash Hematologic: Denies: bleeding Musculoskeletal: Denies: pain Allergies: Coded Allergies: LISINOPRIL (Verified Allergy, Unknown, Hives, 04/12/14) Objective Vital Signs Last 24 Hour Vital Signs Date Time Temp Pulse Resp B/P (MAP) Pulse Ox O2 Delivery O2 Flow Rate FiO2 04/10/20 16:00 100.0 84 18 160/61 (94) 100 04/10/20 16:00 105 04/10/20 13:55 105 179/69 04/10/20 13:55 179/69 04/10/20 13:55 105 179/69 04/10/20 12:00 102 04/10/20 12:00 98.1 105 18 179/69 (105) 100 04/10/20 09:59 176/76 04/10/20 09:00 Nasal Cannula 2.0 04/10/20 08:00 98.6 109 18 176/76 (109) 100 04/10/20 08:00 91 04/10/20 05:49 78 148/74 04/10/20 04:23 97.3 04/10/20 04:00 96 04/10/20 04:00 99.0 92 18 147/74 (98) 97 04/10/20 00:00 97.3 79 18 147/81 (103) 96 04/10/20 00:00 87 04/09/20 22:28 Nasal Cannula 2.0 04/09/20 21:30 78 128/74 04/09/20 20:19 96 Nasal Cannula 2.0 28 04/09/20 20:00 98.2 85 18 148/77 (100) 95 04/09/20 20:00 86 Height (Feet): 5 Height (Inches): 6.00 Weight (Pounds): 294 General Appearance: no acute distress HEENT: normocephalic, atraumatic, anicteric Respiratory/Chest: no accessory muscle use, crackles/rales, rhonchi - bilaterally Cardiovascular: normal rate, regular rhythm, no gallop/murmur, no JVD Abdomen: normal bowel sounds, soft, non tender, no organomegaly Genitourinary: other - + weiss - urine slt cloudy Extremities: no cyanosis Skin: no rash Neurologic/Psychiatric: stick puller II-XII grossly normal, abnormal gait, responsive Lymphatic: no neck adenopathy Musculoskeletal: no effusion Objective Chest x-ray - 03/29/20 - Procedure: XRAY Chest 1v Indication: Shortness of breath Technique: One view of the chest Comparison: 03/28/2020 post PICC radiograph Findings: Stable satisfactory positions of endotracheal tube, orogastric tube, left arm PICC. There is some increased atelectasis at the right lung base. There is minimal left basilar atelectasis as well. The heart size is normal. Impression: Increased right basilar atelectasis. 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 Comparison films: 03/29/2020. FINDINGS: Endotracheal tube, NG tube and left PICC line remain in place. Vascularity is normal. There is worsening of bilateral infiltrates. Cardiac and mediastinal silhouette are within normal limits. CP angles are sharp. The bony thorax appear unremarkable. IMPRESSION: Worsening of bilateral infiltrates. Chest x-ray - 04/07/20 - IMPRESSION: Worsening left lung infiltrates with unchanged right lung infiltrates. Microbiology Date/Time Source Procedure Growth Status 04/03/20 04:55 Blood Blood Culture - Final NO GROWTH AFTER 5 DAYS Complete 04/03/20 04:00 Sputum Expectorated Gram Stain - Final Complete 04/03/20 04:00 Sputum Culture - Final Escherichia Coli - Esbl A.baumanii Complx - Mdr Complete 04/03/20 04:00 Indwelling Cath Urine Culture - Final NO GROWTH AFTER 48 HOURS Complete 03/27/20 19:15 Rectum - Final NO CARBAPENEM-RESISTANT ENTEROBACTERI... Complete Laboratory Tests Test 04/09/20 20:50 04/10/20 06:46 White Blood Count 11.2 K/UL (4.8-10.8) H 10.2 K/UL (4.8-10.8) Red Blood Count 2.97 M/UL (4.20-5.40) L 3.00 M/UL (4.20-5.40) L Hemoglobin 7.7 G/DL (12.0-16.0) L 7.9 G/DL (12.0-16.0) L Hematocrit 25.4 % (37.0-47.0) L 26.3 % (37.0-47.0) L Mean Corpuscular Volume 85 FL (80-99) 88 FL (80-99) Mean Corpuscular Hemoglobin 26.1 PG (27.0-31.0) L 26.3 PG (27.0-31.0) L Mean Corpuscular Hemoglobin Concent 30.5 G/DL (32.0-36.0) L 29.9 G/DL (32.0-36.0) L Red Cell Distribution Width 19.3 % (11.6-14.8) H 18.7 % (11.6-14.8) H Platelet Count 300 K/UL (150-450) 288 K/UL (150-450) Mean Platelet Volume 7.1 FL (6.5-10.1) 7.0 FL (6.5-10.1) Neutrophils (%) (Auto) 81.4 % (45.0-75.0) H % (45.0-75.0) Lymphocytes (%) (Auto) 8.8 % (20.0-45.0) L % (20.0-45.0) Monocytes (%) (Auto) 7.8 % (1.0-10.0) % (1.0-10.0) Eosinophils (%) (Auto) 0.8 % (0.0-3.0) % (0.0-3.0) Basophils (%) (Auto) 1.2 % (0.0-2.0) % (0.0-2.0) Differential Total Cells Counted 100 Neutrophils % (Manual) 88 % (45-75) H Lymphocytes % (Manual) 7 % (20-45) L Monocytes % (Manual) 4 % (1-10) Eosinophils % (Manual) 1 % (0-3) Basophils % (Manual) 0 % (0-2) Band Neutrophils 0 % (0-8) Platelet Estimate Adequate Platelet Morphology Normal Sodium Level 140 MMOL/L (136-145) Potassium Level 4.1 MMOL/L (3.5-5.1) Chloride Level 109 MMOL/L (98-107) H Carbon Dioxide Level 25 MMOL/L (21-32) Anion Gap 6 mmol/L (5-15) Blood Urea Nitrogen 16 mg/dL (7-18) Creatinine 1.0 MG/DL (0.55-1.30) Estimat Glomerular Filtration Rate > 60 mL/min (>60) Glucose Level 90 MG/DL (74-106) Calcium Level 8.5 MG/DL (8.5-10.1) Ferritin 274 NG/ML (8-388) Total Bilirubin 0.2 MG/DL (0.2-1.0) Aspartate Amino Transf (AST/SGOT) 17 U/L (15-37) Alanine Aminotransferase (ALT/SGPT) 6 U/L (12-78) L Alkaline Phosphatase 73 U/L (46-116) Total Protein 5.4 G/DL (6.4-8.2) L Albumin 1.3 G/DL (3.4-5.0) L Globulin 4.1 g/dL Albumin/Globulin Ratio 0.3 (1.0-2.7) L Current Medications Medications (Trade) Dose Ordered Sig/Debbie Route PRN Reason Start Time Stop Time Status Last Admin Dose Admin Acetaminophen (Tylenol) 650 mg Q4H PRN ORAL Mild Pain (Pain Scale 1-3) 04/09/20 02:45 04/25/20 21:14 04/09/20 16:44 Acetaminophen (Tylenol) 650 mg Q4H PRN ORAL Temp >100.5 04/09/20 02:45 04/25/20 21:14 Acetaminophen/ Hydrocodone Bitart ([place] 5/325) 1 tab Q4H PRN ORAL Moderate Pain (Pain Scale 4-6) 04/09/20 12:30 04/16/20 12:29 04/09/20 13:10 Al Hydroxide/Mg Hydroxide (Mylanta II) 30 ml Q6H PRN ORAL dyspepsia 04/09/20 04:45 04/25/20 21:14 Amiodarone HCl (Cordarone) 200 mg DAILY ORAL 04/10/20 09:00 07/05/20 20:59 04/10/20 09:33 Bisacodyl (Dulcolax) 10 mg HSPRN PRN RECTAL Constipation 04/08/20 21:15 06/24/20 21:14 Chlorhexidine Gluconate (Laurie-Hex 2%) 1 applic DAILY@1999 TOPIC 04/08/20 20:00 06/26/20 19:59 04/09/20 21:29 Dextrose (Dextrose 50%) 25 ml Q30M PRN IV Hypoglycemia 04/08/20 17:45 06/24/20 21:14 Dextrose (Dextrose 50%) 50 ml Q30M PRN IV Hypoglycemia 04/08/20 17:45 06/24/20 21:14 Diltiazem HCl (Cardizem) 90 mg EVERY 8 HOURS ORAL 04/09/20 06:00 05/04/20 14:59 04/10/20 13:55 Diphenhydramine HCl (Benadryl) 25 mg Q6H PRN ORAL Itching/Pruritis 04/09/20 05:37 04/25/20 17:36 Docusate Sodium (Colace) 100 mg Q12HR ORAL 04/09/20 09:00 04/29/20 08:59 04/10/20 09:32 Furosemide (Lasix) 40 mg EVERY 12 HOURS IV 04/09/20 21:00 05/09/20 20:59 04/10/20 09:33 Gabapentin (Neurontin) 300 mg BEDTIME ORAL 04/09/20 21:00 04/26/20 20:59 04/09/20 21:30 Hydralazine HCl (Apresoline) 50 mg Q8HR ORAL 04/10/20 09:00 07/09/20 08:59 04/10/20 13:55 Iron Sucrose 100 mg/Sodium Chloride 60 ml @ 240 mls/hr BEDTIME IV 04/08/20 21:00 04/10/20 21:14 04/09/20 21:31 Magnesium Hydroxide (Mom) 30 ml HSPRN PRN ORAL Constipation 04/09/20 01:30 05/08/20 17:38 Meropenem 1 gm/ Sodium Chloride 100 ml @ 200 mls/hr Q8HR IVPB 04/08/20 22:00 04/13/20 21:59 04/10/20 13:55 Metoclopramide HCl (Reglan) 10 mg Q6H PRN IVP Nausea & Vomiting 04/08/20 21:15 04/25/20 21:14 Micafungin Sodium 100 mg/Sodium Chloride 100 ml @ 100 mls/hr Q24H IVPB 04/08/20 20:00 04/11/20 19:59 04/09/20 21:30 Morphine Sulfate (Morphine Sulfate) 2 mg Q4H PRN IVP Breakthrough pain 5-10 04/09/20 12:30 04/15/20 17:42 Morphine Sulfate (Morphine Sulfate) 4 mg Q4H PRN IVP Severe Pain (Pain Scale 7-10) 04/08/20 17:43 04/15/20 17:42 04/10/20 15:48 Ondansetron HCl (Zofran) 4 mg Q6H PRN IVP Nausea & Vomiting 04/08/20 17:44 04/25/20 17:43 Pantoprazole (Protonix) 40 mg DAILY IVP 04/09/20 09:00 05/01/20 08:59 04/10/20 09:32 Polyethylene Glycol (Miralax) 17 gm HSPRN PRN ORAL Constipation 04/09/20 01:30 05/08/20 20:59 Polymyxin B Sulfate 026345 units/Dextrose 500 ml @ 500 mls/hr EVERY 12 HOURS IVPB 04/08/20 21:00 04/12/20 23:59 04/10/20 11:54 Regadenoson (Lexiscan) 0.4 mg ONCE PRN IV stress test 04/09/20 15:15 04/11/20 15:14 Rivaroxaban (Xarelto) 15 mg DAILY ORAL 04/09/20 09:00 06/29/20 08:59 04/10/20 12:09 Jose Valdes MD Apr 10, 2020 19:44
[2020-04-10 20:00] VITALS: BP_SYST 117; BP_SYST 134; BP_DIAS 59; BP_DIAS 65
[2020-04-10] MEDS: Dyna-Hex 2% Top Sol 2oz TOPIC SCH (20:43)
[2020-04-10] MEDS: Iron Sucrose 100 MG in NS 55 ML IV SCH (22:24)
[2020-04-11] VITALS (7 sets, daily range): BP systolic 106–169; BP diastolic 59–84
[2020-04-11] MEDS: Acetaminophen 650mg/20.3ml ORAL PRN ×2 (00:11→04:40)
[2020-04-11] MEDS: Morphine Sulfate 4mg/ml Inj (IV USE ONLY) IVP PRN ×4 (04:10→18:01)
[2020-04-11] MEDS: HydrALAZINE 50mg tab ORAL SCH ×3 (06:11→21:18)
[2020-04-11] MEDS: dilTIAZem HCl 90mg tab ORAL SCH ×3 (06:11→21:19)
[2020-04-11 06:44] LABS: BASOPHILS % (AUTO) 1.2 % (0.0-2.0); EOSINOPHILS % (AUTO) 0.9 % (0.0-3.0); HEMATOCRIT 26.9 % (37.0-47.0); LYMPHOCYTES % (AUTO) 12.4 % (20.0-45.0); MEAN CORPUSCULAR VOLUME 87 FL (80-99); MONOCYTES % (AUTO) 12.3 % (1.0-10.0); NEUTROPHILS % (AUTO) 73.1 % (45.0-75.0); PLATELET COUNT 323 K/UL (150-450); WHITE BLOOD COUNT 7.9 K/UL (4.8-10.8)
--- NOTE | 2020-04-11 07:23 | NUR ---
HAND-OFF: Report given to Clara Pelaez RN. Pt in stable condition, plan of care endorsed.
--- NOTE | 2020-04-11 07:25 | NUR ---
NURSE NOTES: Received report from Deborah/RN, Patient lying semi-bustamante's in bed, resting comfortably, On nasal canula, no acute distress/SOB noted, Able to make needs known, Keily pain at this time. IV on right Hand, patent. Bed in low position and locked, side rails up x3. Call light within reach. Encouraged to use call light when needed. Will continue plan of care.
[2020-04-11 07:26] LABS: ALANINE AMINOTRANSFERASE 6 U/L (12-78); ALBUMIN 1.3 G/DL (3.4-5.0); ALBUMIN/GLOBULIN RATIO 0.3 (1.0-2.7); ALKALINE PHOSPHATASE 74 U/L (46-116); ANION GAP 8 mmol/L (5-15); ASPARTATE AMINO TRANSFERASE 18 U/L (15-37); BILIRUBIN,TOTAL 0.2 MG/DL (0.2-1.0); BLOOD UREA NITROGEN 18 mg/dL (7-18); CALCIUM 7.6 MG/DL (8.5-10.1); CARBON DIOXIDE 26 MMOL/L (21-32); CHLORIDE 107 MMOL/L (98-107); CREATININE 1.1 MG/DL (0.55-1.30); POTASSIUM 3.6 MMOL/L (3.5-5.1); SODIUM 141 MMOL/L (136-145)
[2020-04-11] MEDS: Docusate 100mg/10ml Liq ORAL SCH ×2 (08:29→20:49)
[2020-04-11] MEDS: Pantoprazole Inj IVP SCH (08:29)
[2020-04-11] MEDS: Amiodarone 200mg tab ORAL SCH (08:29)
[2020-04-11] MEDS: Polymyxin B Sulfate 500,000 UNITS in D5W 500ml 500 ML IVPB SCH ×2 (08:30→21:13)
[2020-04-11] MEDS: Xarelto 15mg tab ORAL SCH (08:30)
--- NOTE | 2020-04-11 09:12 | Hematology/Onc Progress Note ---
Assessment/Plan Assessment/Plan Assessment and Recs # Anemia of iron deficiency, with a ferritin that is less than 50 recentrly --> Anemia workup has been ordered, rule out gi bleed --> recheck ferritin, occult was + --> No evidence of hemolysis is noted, peripheral smear has been reviewed. --> Hgb goal >7. Transfuse prn. --> IRon IV x 5 days started 04/06 as ferritin is low --> Medications have been reviewed --> low threshold for gi evaluation in case has occult + --> currently is on XARELTO --> as per Terrance, may need to hold if h /h lower --> hgb trend 8.2-->7.2->8 --> GI eval prn # Hypercoagulable disorder is on xarelto for afib with rvr --> reviewed cards recs --> if any further bleed, consider hold xarelto --> have dw Pcp --> monitor h/h # Leukocytoisis with gram neg pna, uti, sepsis, fevers, leukocytosis, a.flutter , respiratory failure, atx, dony, + ua, atx --> covid is neg --> abx svetlana and micafungin/polymyx=->hola/svetlana --> as per id recs # Respiratory failure, on vent initially --> now extubated # Renal failure. --> improved # Diabetes. --> endo prn # Hypertension. --> per cards # Diabetes and hypertension, treatment per primary care team. --> a1c goal <8, acchuchecks qac and qhs # Patient with history of altered mental status. --> metabolic encephalopathy # Seizure history. # Chronic neck pain. # Lactic acidsis # HLD # Obesity # Dvt ppx xarelto Appreciate consultation and vanessa RN Subjective HEENT: Denies: no symptoms, eye pain, blurred vision, tearing, double vision, ear pain, ear discharge, nose pain, nose congestion, throat pain, throat swelling, mouth pain, mouth swelling, other Cardiovascular: Denies: no symptoms, chest pain, edema, irregular heart rate, lightheadedness, palpitations, syncope, other Respiratory: Denies: no symptoms, cough, shortness of breath, SOB with excertion, SOB at rest, sputum, wheezing, other Gastrointestinal/Abdominal: Denies: no symptoms, abdomen distended, abdominal pain, black stools, tarry stools, blood in stool, constipated, diarrhea, difficulty swallowing, nausea, poor appetite, poor fluid intake, rectal bleeding , vomiting, other Genitourinary: Denies: no symptoms, burning, discharge, frequency, flank pain, hematuria, incontinence, pain, urgency, other Neurologic/Psychiatric: Denies: no symptoms, anxiety, depressed, emotional problems, headache, numbness, paresthesia, pre-existing deficit, seizure, tingling, tremors, weakness, other Endocrine: Denies: no symptoms, excessive sweating, flushing, intolerance to cold, intolerance to heat, increased hunger, increased thirst, increased urine, unexplained weight gain, unexplained weight loss, other Hematologic/Lymphatic: Denies: no symptoms, anemia, easy bleeding, easy bruising, adenopathy, other Allergies: Coded Allergies: LISINOPRIL (Verified Allergy, Unknown, Hives, 04/12/14) Subjective 04/08 labs have been reviewed, no night sweats, eating overnight, labs pending 04/09 awake, alert with picc, labs from am pending, no major events 04/10 no events, vanessa rn, duplex study reviewed, major vessels show no dvt 04/11 labs reviewed, laying in bed, no complaints, vanessa rn, hgb 8 Objective Objective Current Medications Medications (Trade) Dose Ordered Sig/Debbie Route PRN Reason Start Time Stop Time Status Last Admin Dose Admin Acetaminophen (Tylenol) 650 mg Q4H PRN ORAL Mild Pain (Pain Scale 1-3) 04/09/20 02:45 04/25/20 21:14 04/09/20 16:44 Acetaminophen (Tylenol) 650 mg Q4H PRN ORAL Temp >100.5 04/09/20 02:45 04/25/20 21:14 04/11/20 04:40 Acetaminophen/ Hydrocodone Bitart ([place] 5/325) 1 tab Q4H PRN ORAL Moderate Pain (Pain Scale 4-6) 04/09/20 12:30 04/16/20 12:29 04/09/20 13:10 Al Hydroxide/Mg Hydroxide (Mylanta II) 30 ml Q6H PRN ORAL dyspepsia 04/09/20 04:45 04/25/20 21:14 Amiodarone HCl (Cordarone) 200 mg DAILY ORAL 04/10/20 09:00 07/05/20 20:59 04/11/20 08:29 Bisacodyl (Dulcolax) 10 mg HSPRN PRN RECTAL Constipation 04/08/20 21:15 06/24/20 21:14 Chlorhexidine Gluconate (Laurie-Hex 2%) 1 applic DAILY@2000 TOPIC 04/08/20 20:00 06/26/20 19:59 04/10/20 20:43 Dextrose (Dextrose 50%) 25 ml Q30M PRN IV Hypoglycemia 04/08/20 17:45 06/24/20 21:14 Dextrose (Dextrose 50%) 50 ml Q30M PRN IV Hypoglycemia 04/08/20 17:45 06/24/20 21:14 Diltiazem HCl (Cardizem) 90 mg EVERY 8 HOURS ORAL 04/09/20 06:00 05/04/20 14:59 04/11/20 06:11 Diphenhydramine HCl (Benadryl) 25 mg Q6H PRN ORAL Itching/Pruritis 04/09/20 05:37 04/25/20 17:36 Docusate Sodium (Colace) 100 mg Q12HR ORAL 04/09/20 09:00 04/29/20 08:59 04/11/20 08:29 Furosemide (Lasix) 40 mg EVERY 12 HOURS IV 04/09/20 21:00 05/09/20 20:59 04/11/20 08:25 Gabapentin (Neurontin) 300 mg BEDTIME ORAL 04/09/20 21:00 04/26/20 20:59 04/10/20 20:43 Hydralazine HCl (Apresoline) 50 mg Q8HR ORAL 04/10/20 09:00 07/09/20 08:59 04/11/20 06:11 Magnesium Hydroxide (Mom) 30 ml HSPRN PRN ORAL Constipation 04/09/20 01:30 05/08/20 17:38 Meropenem 1 gm/ Sodium Chloride 100 ml @ 200 mls/hr Q8HR IVPB 04/08/20 22:00 04/13/20 21:59 04/11/20 06:11 Metoclopramide HCl (Reglan) 10 mg Q6H PRN IVP Nausea & Vomiting 04/08/20 21:15 04/25/20 21:14 Micafungin Sodium 100 mg/Sodium Chloride 100 ml @ 100 mls/hr Q24H IVPB 04/10/20 20:00 04/13/20 19:59 04/10/20 20:44 Morphine Sulfate (Morphine Sulfate) 2 mg Q4H PRN IVP Breakthrough pain 5-10 04/09/20 12:30 04/15/20 17:42 Morphine Sulfate (Morphine Sulfate) 4 mg Q4H PRN IVP Severe Pain (Pain Scale 7-10) 04/08/20 17:43 04/15/20 17:42 04/11/20 08:29 Ondansetron HCl (Zofran) 4 mg Q6H PRN IVP Nausea & Vomiting 04/08/20 17:44 04/25/20 17:43 Pantoprazole (Protonix) 40 mg DAILY IVP 04/09/20 09:00 05/01/20 08:59 04/11/20 08:29 Polyethylene Glycol (Miralax) 17 gm HSPRN PRN ORAL Constipation 04/09/20 01:30 05/08/20 20:59 Polymyxin B Sulfate 835944 units/Dextrose 500 ml @ 500 mls/hr EVERY 12 HOURS IVPB 04/10/20 21:00 04/14/20 23:59 04/11/20 08:30 Regadenoson (Lexiscan) 0.4 mg ONCE PRN IV stress test 04/09/20 15:15 04/11/20 15:14 Rivaroxaban (Xarelto) 15 mg DAILY ORAL 04/09/20 09:00 06/29/20 08:59 04/10/20 12:09 Last 24 Hour Vital Signs Date Time Temp Pulse Resp B/P (MAP) Pulse Ox O2 Delivery O2 Flow Rate FiO2 04/11/20 08:00 98.1 73 18 140/63 (88) 96 04/11/20 06:11 141/66 04/11/20 06:11 89 141/66 04/11/20 06:00 97.6 89 18 141/66 (91) 97 04/11/20 05:10 100.5 04/11/20 04:00 100.5 89 16 106/81 (89) 98 04/11/20 04:00 93 04/11/20 00:00 99 04/11/20 00:00 99.4 107 20 134/65 (88) 96 04/10/20 22:36 119/59 04/10/20 22:35 104 117/59 04/10/20 22:03 101.1 04/10/20 21:00 Nasal Cannula 2.0 04/10/20 20:06 97 Nasal Cannula 2.0 28 04/10/20 20:00 101.1 104 18 117/59 (78) 96 04/10/20 20:00 104 04/10/20 20:00 99.4 107 20 134/65 (88) 96 04/10/20 16:00 100.0 84 18 160/61 (94) 100 04/10/20 16:00 105 04/10/20 13:55 105 179/69 04/10/20 13:55 179/69 04/10/20 13:55 105 179/69 04/10/20 12:00 102 04/10/20 12:00 98.1 105 18 179/69 (105) 100 04/10/20 09:59 176/76 04/10/20 09:00 Nasal Cannula 2.0 04/10/20 08:00 98.6 109 18 176/76 (109) 100 04/10/20 08:00 91 04/10/20 05:49 78 148/74 04/10/20 04:00 96 04/10/20 04:00 99.0 92 18 147/74 (98) 97 04/10/20 00:00 97.3 79 18 147/81 (103) 96 04/10/20 00:00 87 04/09/20 22:28 Nasal Cannula 2.0 04/09/20 21:30 78 128/74 04/09/20 20:19 96 Nasal Cannula 2.0 28 04/09/20 20:00 98.2 85 18 148/77 (100) 95 04/09/20 20:00 86 04/09/20 17:23 99.5 04/09/20 16:00 92 04/09/20 16:00 99.5 95 15 142/67 (92) 98 04/09/20 14:13 96 142/89 04/09/20 12:00 96 04/09/20 12:00 99.7 97 16 142/89 (106) 98 Intake and Output 04/10/20 04/11/20 19:00 07:00 Intake Total 800 ml 880 ml Output Total 1850 ml 2200 ml Balance -1050 ml -1320 ml Intake Oral 800 ml 780 ml IV Total 100 ml Output Urine Total 1850 ml 2200 ml # Voids 2 Labs Test 04/08/20 12:00 04/08/20 22:00 04/09/20 06:21 04/09/20 13:39 White Blood Count 10.9 K/UL (4.8-10.8) 11.6 K/UL (4.8-10.8) 10.7 K/UL (4.8-10.8) 10.5 K/UL (4.8-10.8) Red Blood Count 2.81 M/UL (4.20-5.40) 3.08 M/UL (4.20-5.40) 2.81 M/UL (4.20-5.40) 2.98 M/UL (4.20-5.40) Hemoglobin 7.2 G/DL (12.0-16.0) 8.0 G/DL (12.0-16.0) 7.3 G/DL (12.0-16.0) 7.7 G/DL (12.0-16.0) Hematocrit 24.8 % (37.0-47.0) 27.2 % (37.0-47.0) 24.7 % (37.0-47.0) 26.2 % (37.0-47.0) Mean Corpuscular Volume 88 FL (80-99) 88 FL (80-99) 88 FL (80-99) 88 FL (80- 99) Mean Corpuscular Hemoglobin 25.6 PG (27.0-31.0) 25.8 PG (27.0-31.0) 26.1 PG (27.0-31.0) 25.8 PG (27.0-31.0) Mean Corpuscular Hemoglobin Concent 29.1 G/DL (32.0-36.0) 29.3 G/DL (32.0-36.0) 29.6 G/DL (32.0-36.0) 29.3 G/DL (32.0-36.0) Red Cell Distribution Width 19.4 % (11.6-14.8) 19.9 % (11.6-14.8) 18.8 % (11.6-14.8) 18.6 % (11.6-14.8) Platelet Count 257 K/UL (150-450) 273 K/UL (150-450) 279 K/UL (150-450) 297 K/UL (150-450) Mean Platelet Volume 7.5 FL (6.5-10.1) 7.2 FL (6.5-10.1) 7.4 FL (6.5-10.1) 7.4 FL (6.5-10.1) Neutrophils (%) (Auto) % (45.0-75.0) 83.7 % (45.0-75.0) % (45.0-75.0) % (45.0-75.0) Lymphocytes (%) (Auto) % (20.0-45.0) 7.1 % (20.0-45.0) % (20.0-45.0) % (20.0-45.0) Monocytes (%) (Auto) % (1.0-10.0) 7.1 % (1.0-10.0) % (1.0-10.0) % (1.0-10.0) Eosinophils (%) (Auto) % (0.0-3.0) 0.7 % (0.0-3.0) % (0.0-3.0) % (0.0-3.0) Basophils (%) (Auto) % (0.0-2.0) 1.4 % (0.0-2.0) % (0.0-2.0) % (0.0-2.0) Differential Total Cells Counted 100 100 100 Neutrophils % (Manual) 83 % (45-75) 82 % (45-75) 77 % (45-75) Lymphocytes % (Manual) 6 % (20-45) 13 % (20-45) 14 % (20-45) Monocytes % (Manual) 10 % (1-10) 4 % (1-10) 8 % (1-10) Eosinophils % (Manual) 0 % (0-3) 1 % (0-3) 1 % (0-3) Basophils % (Manual) 1 % (0-2) 0 % (0-2) 0 % (0-2) Band Neutrophils 0 % (0-8) 0 % (0-8) 0 % (0-8) Platelet Estimate Adequate Adequate Adequate Platelet Morphology Normal Normal Normal Hypochromasia 1+ 1+ 1+ Anisocytosis 2+ 1+ 1+ Sodium Level 136 MMOL/L (136-145) Potassium Level 4.5 MMOL/L (3.5-5.1) Chloride Level 107 MMOL/L (98-107) Carbon Dioxide Level 25 MMOL/L (21-32) Anion Gap 4 mmol/L (5-15) Blood Urea Nitrogen 19 mg/dL (7-18) Creatinine 1.2 MG/DL (0.55-1.30) Estimat Glomerular Filtration Rate 54.3 mL/min (>60) Glucose Level 100 MG/DL (74-106) Calcium Level 8.0 MG/DL (8.5-10.1) Phosphorus Level 3.1 MG/DL (2.5-4.9) Magnesium Level 1.4 MG/DL (1.8-2.4) Total Bilirubin 0.2 MG/DL (0.2-1.0) Aspartate Amino Transf (AST/SGOT) 23 U/L (15-37) Alanine Aminotransferase (ALT/SGPT) 7 U/L (12-78) Alkaline Phosphatase 76 U/L (46-116) Total Protein 5.2 G/DL (6.4-8.2) Albumin 1.3 G/DL (3.4-5.0) Globulin 3.9 g/dL Albumin/Globulin Ratio 0.3 (1.0-2.7) Test 04/09/20 20:50 04/10/20 06:46 04/11/20 05:25 White Blood Count 11.2 K/UL (4.8-10.8) 10.2 K/UL (4.8-10.8) 7.9 K/UL (4.8-10.8) Red Blood Count 2.97 M/UL (4.20-5.40) 3.00 M/UL (4.20-5.40) 3.10 M/UL (4.20-5.40) Hemoglobin 7.7 G/DL (12.0-16.0) 7.9 G/DL (12.0-16.0) 8.0 G/DL (12.0-16.0) Hematocrit 25.4 % (37.0-47.0) 26.3 % (37.0-47.0) 26.9 % (37.0-47.0) Mean Corpuscular Volume 85 FL (80-99) 88 FL (80-99) 87 FL (80-99) Mean Corpuscular Hemoglobin 26.1 PG (27.0-31.0) 26.3 PG (27.0-31.0) 25.9 PG (27.0-31.0) Mean Corpuscular Hemoglobin Concent 30.5 G/DL (32.0-36.0) 29.9 G/DL (32.0-36.0) 29.9 G/DL (32.0-36.0) Red Cell Distribution Width 19.3 % (11.6-14.8) 18.7 % (11.6-14.8) 18.0 % (11.6-14.8) Platelet Count 300 K/UL (150-450) 288 K/UL (150-450) 323 K/UL (150-450) Mean Platelet Volume 7.1 FL (6.5-10.1) 7.0 FL (6.5-10.1) 8.2 FL (6.5-10.1) Neutrophils (%) (Auto) 81.4 % (45.0-75.0) % (45.0-75.0) 73.1 % (45.0-75.0) Lymphocytes (%) (Auto) 8.8 % (20.0-45.0) % (20.0-45.0) 12.4 % (20.0-45.0) Monocytes (%) (Auto) 7.8 % (1.0-10.0) % (1.0-10.0) 12.3 % (1.0-10.0) Eosinophils (%) (Auto) 0.8 % (0.0-3.0) % (0.0-3.0) 0.9 % (0.0-3.0) Basophils (%) (Auto) 1.2 % (0.0-2.0) % (0.0-2.0) 1.2 % (0.0-2.0) Differential Total Cells Counted 100 Neutrophils % (Manual) 88 % (45-75) Lymphocytes % (Manual) 7 % (20-45) Monocytes % (Manual) 4 % (1-10) Eosinophils % (Manual) 1 % (0-3) Basophils % (Manual) 0 % (0-2) Band Neutrophils 0 % (0-8) Platelet Estimate Adequate Platelet Morphology Normal Sodium Level 140 MMOL/L (136-145) 141 MMOL/L (136-145) Potassium Level 4.1 MMOL/L (3.5-5.1) 3.6 MMOL/L (3.5-5.1) Chloride Level 109 MMOL/L (98-107) 107 MMOL/L (98-107) Carbon Dioxide Level 25 MMOL/L (21-32) 26 MMOL/L (21-32) Anion Gap 6 mmol/L (5-15) 8 mmol/L (5-15) Blood Urea Nitrogen 16 mg/dL (7-18) 18 mg/dL (7-18) Creatinine 1.0 MG/DL (0.55-1.30) 1.1 MG/DL (0.55-1.30) Estimat Glomerular Filtration Rate > 60 mL/min (>60) > 60 mL/min (>60) Glucose Level 90 MG/DL (74-106) 90 MG/DL (74-106) Calcium Level 8.5 MG/DL (8.5-10.1) 7.6 MG/DL (8.5-10.1) Ferritin 274 NG/ML (8-388) Total Bilirubin 0.2 MG/DL (0.2-1.0) 0.2 MG/DL (0.2-1.0) Aspartate Amino Transf (AST/SGOT) 17 U/L (15-37) 18 U/L (15-37) Alanine Aminotransferase (ALT/SGPT) 6 U/L (12-78) 6 U/L (12-78) Alkaline Phosphatase 73 U/L (46-116) 74 U/L (46-116) Total Protein 5.4 G/DL (6.4-8.2) 5.4 G/DL (6.4-8.2) Albumin 1.3 G/DL (3.4-5.0) 1.3 G/DL (3.4-5.0) Globulin 4.1 g/dL 4.1 g/dL Albumin/Globulin Ratio 0.3 (1.0-2.7) 0.3 (1.0-2.7) Height (Feet): 5 Height (Inches): 6.00 Weight (Pounds): 294 Objective Physical Exam Sp02 EP Interpretation: reviewed, normal General: Patient appears chronically ill Head: normocephalic, atraumatic ++ngt Respiratory: , crackles - both lower lobes Cardiovascular: tachycardia Gastrointestinal: non tender, soft Musculoskeletal: other - Patient appears chronically debilitated both lower extremities are extended Neurologic: other - Some verbal response, but chronic disability Skin: no rash : ++Virgil Chowdhury MD Apr 11, 2020 09:12
--- NOTE | 2020-04-11 09:33 | NUR ---
CASE MANAGEMENT:REVIEW 04/11/20 SI;NOW + DVT . CECILIO PNA~ SLIGHT IMPROVEMENT . SPUTUM + ECOLI S/P EXTUBATION 04/05 100.5 89 16 106/81 98% 2L NC H/H 8.0/26.9 CA+7.6 BUN 19 ALB 1.3 IS;IV LASIX BID XARELTO NGT QD IV POLYMYXIN BID IV MICAFUNGIN QD IV MEROPENEM TID IV IRON SUCROSE QHS AMIODARONE NGT BID HYDRALAZINE PO TID CARDIZEM PO TID IV PROTONIX QD TYLENOL PO Q4HR/PRN Venous Duplex Scan Cecilio Leg-STUDY LIMITED DUE TO BODY HABITUS AND DEPTH OF VESSELS. NO EVIDENCE OF DVT IN THE VISUALIZED SEGMENTS. HOWEVER THE MID TO DISTAL SFVs ARE NOT WELL SEEN BILATERALLY. \: 3E MED SURG UNIT DCP: HOME WHEN STABLE PLAN: OB STOOL (+)X3 ~GI PLANS FOR EGD/COLONOSCOPY THURSDAY UNABLE TO TOLERATE LEXISCAN~ON HOLD DECREASE UPPER STRENGTH MOBILITY PATIENT REQUIRING TO BE FED ENCOURAGE UPPER BODY EXERCISES TO IMPROVE STRENGTH COVID-19 ~PENDING FEVERS 101.1 LATE EVENING 04/10/20 @1600 ID~URINE CX X3 IN PROCESS ID~BLOOD CX ~IN PROCESS
--- NOTE | 2020-04-11 09:52 | Pulmonology Progress Note ---
Subjective ROS Limited/Unobtainable: No Interval Events: Extubated 04/05/20; doing well on 2L/min O2 Constitutional: Reports: fever HEENT: Repors: no symptoms Respiratory: Reports: no symptoms Cardiovascular: Reports: no symptoms Gastrointestinal/Abdominal: Denies: nausea, vomiting, diarrhea Genitourinary: Reports: no symptoms Psychiatric: Denies: depression Skin: Denies: rash Musculoskeletal: Denies: pain Allergies: Coded Allergies: LISINOPRIL (Verified Allergy, Unknown, Hives, 04/12/14) All Systems: reviewed and negative except above Objective Last 24 Hour Vital Signs Date Time Temp Pulse Resp B/P (MAP) Pulse Ox O2 Delivery O2 Flow Rate FiO2 04/11/20 09:00 Nasal Cannula 2.0 04/11/20 08:00 98.1 73 18 140/63 (88) 96 04/11/20 08:00 98 04/11/20 06:11 141/66 04/11/20 06:11 89 141/66 04/11/20 06:00 97.6 89 18 141/66 (91) 97 04/11/20 05:10 100.5 04/11/20 04:00 100.5 89 16 106/81 (89) 98 04/11/20 04:00 93 04/11/20 00:00 99 04/11/20 00:00 99.4 107 20 134/65 (88) 96 04/10/20 22:36 119/59 04/10/20 22:35 104 117/59 04/10/20 22:03 101.1 04/10/20 21:00 Nasal Cannula 2.0 04/10/20 20:06 97 Nasal Cannula 2.0 28 04/10/20 20:00 101.1 104 18 117/59 (78) 96 04/10/20 20:00 104 04/10/20 20:00 99.4 107 20 134/65 (88) 96 04/10/20 16:00 100.0 84 18 160/61 (94) 100 04/10/20 16:00 105 04/10/20 13:55 105 179/69 04/10/20 13:55 179/69 04/10/20 13:55 105 179/69 04/10/20 12:00 102 04/10/20 12:00 98.1 105 18 179/69 (105) 100 04/10/20 09:59 176/76 Intake and Output 04/10/20 04/11/20 19:00 07:00 Intake Total 800 ml 880 ml Output Total 1850 ml 2200 ml Balance -1050 ml -1320 ml Intake Oral 800 ml 780 ml IV Total 100 ml Output Urine Total 1850 ml 2200 ml # Voids 2 General Appearance: no acute distress HEENT: normocephalic Respiratory: chest wall non-tender, lungs clear Cardiovascular: normal peripheral pulses, normal rate Abdomen: normal bowel sounds Laboratory Tests 04/11/20 05:25: White Blood Count 7.9, Red Blood Count 3.10L, Hemoglobin 8.0L, Hematocrit 26.9L , Mean Corpuscular Volume 87, Mean Corpuscular Hemoglobin 25.9L, Mean Corpuscular Hemoglobin Concent 29.9L, Red Cell Distribution Width 18.0H, Platelet Count 323, Mean Platelet Volume 8.2, Neutrophils (%) (Auto) 73.1, Lymphocytes (%) (Auto) 12.4L, Monocytes (%) (Auto) 12.3H, Eosinophils (%) (Auto ) 0.9, Basophils (%) (Auto) 1.2, Sodium Level 141, Potassium Level 3.6, Chloride Level 107, Carbon Dioxide Level 26, Anion Gap 8, Blood Urea Nitrogen 18 , Creatinine 1.1, Estimat Glomerular Filtration Rate > 60, Glucose Level 90, Calcium Level 7.6L, Total Bilirubin 0.2, Aspartate Amino Transf (AST/SGOT) 18, Alanine Aminotransferase (ALT/SGPT) 6L, Alkaline Phosphatase 74, Total Protein 5.4L, Albumin 1.3L, Globulin 4.1, Albumin/Globulin Ratio 0.3L Current Medications Medications (Trade) Dose Ordered Sig/Debbie Route PRN Reason Start Time Stop Time Status Last Admin Dose Admin Acetaminophen (Tylenol) 650 mg Q4H PRN ORAL Mild Pain (Pain Scale 1-3) 04/09/20 02:45 04/25/20 21:14 04/09/20 16:44 Acetaminophen (Tylenol) 650 mg Q4H PRN ORAL Temp >100.5 04/09/20 02:45 04/25/20 21:14 04/11/20 04:40 Acetaminophen/ Hydrocodone Bitart ([place] 5/325) 1 tab Q4H PRN ORAL Moderate Pain (Pain Scale 4-6) 04/09/20 12:30 04/16/20 12:29 04/09/20 13:10 Al Hydroxide/Mg Hydroxide (Mylanta II) 30 ml Q6H PRN ORAL dyspepsia 04/09/20 04:45 04/25/20 21:14 Amiodarone HCl (Cordarone) 200 mg DAILY ORAL 04/10/20 09:00 07/05/20 20:59 04/11/20 08:29 Bisacodyl (Dulcolax) 10 mg HSPRN PRN RECTAL Constipation 04/08/20 21:15 06/24/20 21:14 Chlorhexidine Gluconate (Laurie-Hex 2%) 1 applic DAILY@2000 TOPIC 04/08/20 20:00 06/26/20 19:59 04/10/20 20:43 Dextrose (Dextrose 50%) 25 ml Q30M PRN IV Hypoglycemia 04/08/20 17:45 06/24/20 21:14 Dextrose (Dextrose 50%) 50 ml Q30M PRN IV Hypoglycemia 04/08/20 17:45 06/24/20 21:14 Diltiazem HCl (Cardizem) 90 mg EVERY 8 HOURS ORAL 04/09/20 06:00 05/04/20 14:59 04/11/20 06:11 Diphenhydramine HCl (Benadryl) 25 mg Q6H PRN ORAL Itching/Pruritis 04/09/20 05:37 04/25/20 17:36 Docusate Sodium (Colace) 100 mg Q12HR ORAL 04/09/20 09:00 04/29/20 08:59 04/11/20 08:29 Furosemide (Lasix) 40 mg EVERY 12 HOURS IV 04/09/20 21:00 05/09/20 20:59 04/11/20 08:25 Gabapentin (Neurontin) 300 mg BEDTIME ORAL 04/09/20 21:00 04/26/20 20:59 04/10/20 20:43 Hydralazine HCl (Apresoline) 50 mg Q8HR ORAL 04/10/20 09:00 07/09/20 08:59 04/11/20 06:11 Magnesium Hydroxide (Mom) 30 ml HSPRN PRN ORAL Constipation 04/09/20 01:30 05/08/20 17:38 Meropenem 1 gm/ Sodium Chloride 100 ml @ 200 mls/hr Q8HR IVPB 04/08/20 22:00 04/13/20 21:59 04/11/20 06:11 Metoclopramide HCl (Reglan) 10 mg Q6H PRN IVP Nausea & Vomiting 04/08/20 21:15 04/25/20 21:14 Micafungin Sodium 100 mg/Sodium Chloride 100 ml @ 100 mls/hr Q24H IVPB 04/10/20 20:00 04/13/20 19:59 04/10/20 20:44 Morphine Sulfate (Morphine Sulfate) 2 mg Q4H PRN IVP Breakthrough pain 5-10 04/09/20 12:30 04/15/20 17:42 Morphine Sulfate (Morphine Sulfate) 4 mg Q4H PRN IVP Severe Pain (Pain Scale 7-10) 04/08/20 17:43 04/15/20 17:42 04/11/20 08:29 Ondansetron HCl (Zofran) 4 mg Q6H PRN IVP Nausea & Vomiting 04/08/20 17:44 04/25/20 17:43 Pantoprazole (Protonix) 40 mg DAILY IVP 04/09/20 09:00 05/01/20 08:59 04/11/20 08:29 Polyethylene Glycol (Miralax) 17 gm HSPRN PRN ORAL Constipation 04/09/20 01:30 05/08/20 20:59 Polymyxin B Sulfate 251126 units/Dextrose 500 ml @ 500 mls/hr EVERY 12 HOURS IVPB 04/10/20 21:00 04/14/20 23:59 04/11/20 08:30 Regadenoson (Lexiscan) 0.4 mg ONCE PRN IV stress test 04/09/20 15:15 04/11/20 15:14 Rivaroxaban (Xarelto) 15 mg DAILY ORAL 04/09/20 09:00 06/29/20 08:59 04/10/20 12:09 Assessment/Plan Assessment/Plan IMPRESSION: 1. Hyperkalemia. Corrected 2. Tachycardia; resolved 3. Sepsis 4. Hypertension. 5. Seizure disorder. 6. Acute renal failure. 7. Respiratory failure; extubated 04/05/20 DISCUSSION: Correction of electrolytes Continue 2L/min O2 Desai/colostomy care Speech and swallow therapy Seven Yao Omar Syed MD Apr 11, 2020 09:52
--- NOTE | 2020-04-11 10:00 | NUR ---
NURSE NOTES: Opioid teaching done, Patient insisted on getting Morphine and [place] every [address] Montes made aware, per MD OK to give pain meds as ordered.
--- NOTE | 2020-04-11 10:20 | NUR ---
PT NOTE Attempted to see patient for PT treatment. Patient declining to participate with PT due to c/o bilateral LE pain. Clara RN notified, per RN patient had been medicated earlier for pain. Will re-attempt later as schedule permits.
--- NOTE | 2020-04-11 10:25 | Diagnostic Imaging Report ---
Procedure: XRAY Chest 1v Reason for study: Shortness of breath. Comparison films: 04/09/2020. FINDINGS: A single one view chest is obtained. Vascularity is normal. Bilateral infiltrates not significantly changed. Cardiac and mediastinal silhouette are within normal limits. There is decreased left effusion. The bony thorax appear unremarkable. IMPRESSION: No significant change bilateral infiltrates. Decreased left effusion.
--- NOTE | 2020-04-11 10:39 | General Progress Note ---
Assessment/Plan Status: stable Assessment/Plan: 1. History of diabetes. 2. Obesity. 3. Hypertension. 4. Hypercholesterolemia. 5. Diverticulosis/diverticulitis. 6. History of uterine fibroids. 7. Anemi 8. Stool ob positive x3 9. A.fib d/w cardiology plan EGD and colonoscopy tomorrow Subjective ROS Limited/Unobtainable: Yes Allergies: Coded Allergies: LISINOPRIL (Verified Allergy, Unknown, Hives, 04/12/14) Objective Last 24 Hour Vital Signs Date Time Temp Pulse Resp B/P (MAP) Pulse Ox O2 Delivery O2 Flow Rate FiO2 04/11/20 09:00 Nasal Cannula 2.0 04/11/20 08:00 98.1 73 18 140/63 (88) 96 04/11/20 08:00 98 04/11/20 06:11 141/66 04/11/20 06:11 89 141/66 04/11/20 06:00 97.6 89 18 141/66 (91) 97 04/11/20 05:10 100.5 04/11/20 04:00 100.5 89 16 106/81 (89) 98 04/11/20 04:00 93 04/11/20 00:00 99 04/11/20 00:00 99.4 107 20 134/65 (88) 96 04/10/20 22:36 119/59 04/10/20 22:35 104 117/59 04/10/20 22:03 101.1 04/10/20 21:00 Nasal Cannula 2.0 04/10/20 20:06 97 Nasal Cannula 2.0 28 04/10/20 20:00 101.1 104 18 117/59 (78) 96 04/10/20 20:00 104 04/10/20 20:00 99.4 107 20 134/65 (88) 96 04/10/20 16:00 100.0 84 18 160/61 (94) 100 04/10/20 16:00 105 04/10/20 13:55 105 179/69 04/10/20 13:55 179/69 04/10/20 13:55 105 179/69 04/10/20 12:00 102 04/10/20 12:00 98.1 105 18 179/69 (105) 100 Intake and Output 04/10/20 04/11/20 19:00 07:00 Intake Total 800 ml 880 ml Output Total 1850 ml 2200 ml Balance -1050 ml -1320 ml Intake Oral 800 ml 780 ml IV Total 100 ml Output Urine Total 1850 ml 2200 ml # Voids 2 Laboratory Tests 04/11/20 05:25: White Blood Count 7.9, Red Blood Count 3.10L, Hemoglobin 8.0L, Hematocrit 26.9L , Mean Corpuscular Volume 87, Mean Corpuscular Hemoglobin 25.9L, Mean Corpuscular Hemoglobin Concent 29.9L, Red Cell Distribution Width 18.0H, Platelet Count 323, Mean Platelet Volume 8.2, Neutrophils (%) (Auto) 73.1, Lymphocytes (%) (Auto) 12.4L, Monocytes (%) (Auto) 12.3H, Eosinophils (%) (Auto ) 0.9, Basophils (%) (Auto) 1.2, Sodium Level 141, Potassium Level 3.6, Chloride Level 107, Carbon Dioxide Level 26, Anion Gap 8, Blood Urea Nitrogen 18 , Creatinine 1.1, Estimat Glomerular Filtration Rate > 60, Glucose Level 90, Calcium Level 7.6L, Total Bilirubin 0.2, Aspartate Amino Transf (AST/SGOT) 18, Alanine Aminotransferase (ALT/SGPT) 6L, Alkaline Phosphatase 74, Total Protein 5.4L, Albumin 1.3L, Globulin 4.1, Albumin/Globulin Ratio 0.3L Height (Feet): 5 Height (Inches): 6.00 Weight (Pounds): 294 General Appearance: alert EENT: normal ENT inspection Neck: supple Cardiovascular: normal rate Respiratory/Chest: decreased breath sounds Abdomen: hypoactive bowel sounds Arturo Boyd MD Apr 11, 2020 10:39
--- NOTE | 2020-04-11 10:41 | General Progress Note ---
Assessment/Plan Status: stable Assessment/Plan: 1. History of diabetes. 2. Obesity. 3. Hypertension. 4. Hypercholesterolemia. 5. Diverticulosis/diverticulitis. 6. History of uterine fibroids. 7. Anemi 8. Stool ob positive x3 9. A.fib d/w cardiology plan EGD and colonoscopy tomorrow Subjective ROS Limited/Unobtainable: Yes Allergies: Coded Allergies: LISINOPRIL (Verified Allergy, Unknown, Hives, 04/12/14) Objective Last 24 Hour Vital Signs Date Time Temp Pulse Resp B/P (MAP) Pulse Ox O2 Delivery O2 Flow Rate FiO2 04/11/20 09:00 Nasal Cannula 2.0 04/11/20 08:00 98.1 73 18 140/63 (88) 96 04/11/20 08:00 98 04/11/20 06:11 141/66 04/11/20 06:11 89 141/66 04/11/20 06:00 97.6 89 18 141/66 (91) 97 04/11/20 05:10 100.5 04/11/20 04:00 100.5 89 16 106/81 (89) 98 04/11/20 04:00 93 04/11/20 00:00 99 04/11/20 00:00 99.4 107 20 134/65 (88) 96 04/10/20 22:36 119/59 04/10/20 22:35 104 117/59 04/10/20 22:03 101.1 04/10/20 21:00 Nasal Cannula 2.0 04/10/20 20:06 97 Nasal Cannula 2.0 28 04/10/20 20:00 101.1 104 18 117/59 (78) 96 04/10/20 20:00 104 04/10/20 20:00 99.4 107 20 134/65 (88) 96 04/10/20 16:00 100.0 84 18 160/61 (94) 100 04/10/20 16:00 105 04/10/20 13:55 105 179/69 04/10/20 13:55 179/69 04/10/20 13:55 105 179/69 04/10/20 12:00 102 04/10/20 12:00 98.1 105 18 179/69 (105) 100 Intake and Output 04/10/20 04/11/20 19:00 07:00 Intake Total 800 ml 880 ml Output Total 1850 ml 2200 ml Balance -1050 ml -1320 ml Intake Oral 800 ml 780 ml IV Total 100 ml Output Urine Total 1850 ml 2200 ml # Voids 2 Laboratory Tests 04/11/20 05:25: White Blood Count 7.9, Red Blood Count 3.10L, Hemoglobin 8.0L, Hematocrit 26.9L , Mean Corpuscular Volume 87, Mean Corpuscular Hemoglobin 25.9L, Mean Corpuscular Hemoglobin Concent 29.9L, Red Cell Distribution Width 18.0H, Platelet Count 323, Mean Platelet Volume 8.2, Neutrophils (%) (Auto) 73.1, Lymphocytes (%) (Auto) 12.4L, Monocytes (%) (Auto) 12.3H, Eosinophils (%) (Auto ) 0.9, Basophils (%) (Auto) 1.2, Sodium Level 141, Potassium Level 3.6, Chloride Level 107, Carbon Dioxide Level 26, Anion Gap 8, Blood Urea Nitrogen 18 , Creatinine 1.1, Estimat Glomerular Filtration Rate > 60, Glucose Level 90, Calcium Level 7.6L, Total Bilirubin 0.2, Aspartate Amino Transf (AST/SGOT) 18, Alanine Aminotransferase (ALT/SGPT) 6L, Alkaline Phosphatase 74, Total Protein 5.4L, Albumin 1.3L, Globulin 4.1, Albumin/Globulin Ratio 0.3L Height (Feet): 5 Height (Inches): 6.00 Weight (Pounds): 294 General Appearance: alert EENT: PERRL/EOMI Neck: supple Cardiovascular: normal rate Respiratory/Chest: decreased breath sounds Abdomen: normal bowel sounds, non tender, soft Arturo Boyd MD Apr 11, 2020 10:41
[2020-04-11] MEDS: HYDROcodone/Acetamin 5/325 tab ORAL PRN (11:27)
--- NOTE | 2020-04-11 12:02 | Cardiac Electrophysiology PN ---
Assessment/Plan Assessment/Plan 1. Atrial flutter with rapid ventricular response of 170s. On Cardizem 90 OG tid and amiodarone 200 po daily On Xarelto 15 mg daily but is on hold for rectal bleeding for EGD nd colonoscopy tomorrow. Would benefit from atrial flutter ablation when stable Ischemia eval per Dr. Crooks( Patient couldn't complete the stress test). 2. Hypertension. On Cardizem 3. S/P Respiratory failure, extubated 4. Acute renal failure, that is improving. 5. Normal left ventricular systolic function by echo on March 26, 2020, with EF of 55%. 6. Severe bilateral LE edema. On Lasix 40 iv bid. Bilateral LE duplex, showed no DVT 7. Rectal bleed, Xarelto on hold. EGD and Colonoscopy in am DW RN Subjective Subjective In SR on PO Amiodarone and Cardizem.In NAD on 2 liter NC. Stress test cancelled as she couldn't tolerate it Objective Last 24 Hour Vital Signs Date Time Temp Pulse Resp B/P (MAP) Pulse Ox O2 Delivery O2 Flow Rate FiO2 04/11/20 09:00 Nasal Cannula 2.0 04/11/20 08:00 98.1 73 18 140/63 (88) 96 04/11/20 08:00 98 04/11/20 06:11 141/66 04/11/20 06:11 89 141/66 04/11/20 06:00 97.6 89 18 141/66 (91) 97 04/11/20 05:10 100.5 04/11/20 04:00 100.5 89 16 106/81 (89) 98 04/11/20 04:00 93 04/11/20 00:00 99 04/11/20 00:00 99.4 107 20 134/65 (88) 96 04/10/20 22:36 119/59 04/10/20 22:35 104 117/59 04/10/20 22:03 101.1 04/10/20 21:00 Nasal Cannula 2.0 04/10/20 20:06 97 Nasal Cannula 2.0 28 04/10/20 20:00 101.1 104 18 117/59 (78) 96 04/10/20 20:00 104 04/10/20 20:00 99.4 107 20 134/65 (88) 96 04/10/20 16:00 100.0 84 18 160/61 (94) 100 04/10/20 16:00 105 04/10/20 13:55 105 179/69 04/10/20 13:55 179/69 04/10/20 13:55 105 179/69 04/10/20 12:00 102 04/10/20 12:00 98.1 105 18 179/69 (105) 100 Intake and Output 04/10/20 04/11/20 19:00 07:00 Intake Total 800 ml 880 ml Output Total 1850 ml 2200 ml Balance -1050 ml -1320 ml Intake Oral 800 ml 780 ml IV Total 100 ml Output Urine Total 1850 ml 2200 ml # Voids 2 Laboratory Tests Test 04/11/20 05:25 04/11/20 11:40 White Blood Count 7.9 K/UL (4.8-10.8) Red Blood Count 3.10 M/UL (4.20-5.40) L Hemoglobin 8.0 G/DL (12.0-16.0) L Hematocrit 26.9 % (37.0-47.0) L Mean Corpuscular Volume 87 FL (80-99) Mean Corpuscular Hemoglobin 25.9 PG (27.0-31.0) L Mean Corpuscular Hemoglobin Concent 29.9 G/DL (32.0-36.0) L Red Cell Distribution Width 18.0 % (11.6-14.8) H Platelet Count 323 K/UL (150-450) Mean Platelet Volume 8.2 FL (6.5-10.1) Neutrophils (%) (Auto) 73.1 % (45.0-75.0) Lymphocytes (%) (Auto) 12.4 % (20.0-45.0) L Monocytes (%) (Auto) 12.3 % (1.0-10.0) H Eosinophils (%) (Auto) 0.9 % (0.0-3.0) Basophils (%) (Auto) 1.2 % (0.0-2.0) Sodium Level 141 MMOL/L (136-145) Potassium Level 3.6 MMOL/L (3.5-5.1) Chloride Level 107 MMOL/L (98-107) Carbon Dioxide Level 26 MMOL/L (21-32) Anion Gap 8 mmol/L (5-15) Blood Urea Nitrogen 18 mg/dL (7-18) Creatinine 1.1 MG/DL (0.55-1.30) Estimat Glomerular Filtration Rate > 60 mL/min (>60) Glucose Level 90 MG/DL (74-106) Calcium Level 7.6 MG/DL (8.5-10.1) L Total Bilirubin 0.2 MG/DL (0.2-1.0) Aspartate Amino Transf (AST/SGOT) 18 U/L (15-37) Alanine Aminotransferase (ALT/SGPT) 6 U/L (12-78) L Alkaline Phosphatase 74 U/L (46-116) Total Protein 5.4 G/DL (6.4-8.2) L Albumin 1.3 G/DL (3.4-5.0) L Globulin 4.1 g/dL Albumin/Globulin Ratio 0.3 (1.0-2.7) L Urine Color Pending Urine Appearance Pending Urine pH Pending Urine Specific [place] Pending Urine Protein Pending Urine Glucose (UA) Pending Urine Ketones Pending Urine Blood Pending Urine Nitrite Pending Urine Bilirubin Pending Urine Urobilinogen Pending Urine Leukocyte Esterase Pending Objective NECK: No JVD LUNGS: Coarse rhonchi. CARDIOVASCULAR: Regular S1 and S2 with no gallop. ABDOMEN: Soft. EXTREMITIES: No pitting edema. Carlos Dean MD Apr 11, 2020 12:02
[2020-04-11 12:08] LABS: APPEARANCE,URINE CLEAR; BILIRUBIN, URINE NEGATIVE (NEGATIVE); COLOR,URINE PALE YELLOW; GLUCOSE, URINE (UA) NEGATIVE (NEGATIVE); KETONES,URINE NEGATIVE (NEGATIVE); LEUKOCYTE ESTERASE ,URINE NEGATIVE (NEGATIVE); NITRITE,URINE NEGATIVE (NEGATIVE); PH,URINE 6 (4.5-8.0); PROTEIN,URINE 1+ (NEGATIVE); UROBILINOGEN,URINE NORMAL MG/DL (0.0-1.0)
--- NOTE | 2020-04-11 13:11 | Cardiology Progress Note ---
Assessment/Plan Status: stable Assessment/Plan Assessment/Plan Problem List: (1) Atrial flutter ICD Codes: I48.92 - Unspecified atrial flutter SNOMED: 6022842 (2) Hypertension ICD Codes: I10 - Essential (primary) hypertension SNOMED: 82378030 (3) Hyperkalemia ICD Codes: E87.5 - Hyperkalemia SNOMED: 61428907 (4) Acute encephalopathy ICD Codes: G93.40 - Encephalopathy, unspecified SNOMED: 5579461 (5) Acute and chronic respiratory failure with hypoxia ICD Codes: J96.21 - Acute and chronic respiratory failure with hypoxia SNOMED: 66539032, 016461285 (6) VENTURA (acute kidney injury) ICD Codes: N17.9 - Acute kidney failure, unspecified SNOMED: 4093244, 44489087 Status: deteriorating AFIB/Flutter: Converted to normal sinus Continue amiodarone to maintain sinus Cardizem for rate control Echocardiogram with normal LV function Ischemia evaluation at later date Continue anticoagulation with xarelto 15 mg (held for endoscopy ) EP for ablation as outpatient Clear to proceed with GI procedures given low risk Subjective Cardiovascular: Reports: no symptoms Respiratory: Reports: no symptoms Gastrointestinal/Abdominal: Reports: no symptoms Genitourinary: Reports: no symptoms Subjective No acute events, patient stable on nasal canula and remains in normal sinus, no fevers, vitals stable, no complaints, stable on floors, amiodarone titrated down She could not complete stress test today due to inability to lay flat GI for endoscopy , xarelto to be held Objective Last 24 Hour Vital Signs Date Time Temp Pulse Resp B/P (MAP) Pulse Ox O2 Delivery O2 Flow Rate FiO2 04/11/20 12:00 98.2 88 19 160/59 (92) 98 04/11/20 12:00 95 04/11/20 09:00 Nasal Cannula 2.0 04/11/20 08:00 98.1 73 18 140/63 (88) 96 04/11/20 08:00 98 04/11/20 06:11 141/66 04/11/20 06:11 89 141/66 04/11/20 06:00 97.6 89 18 141/66 (91) 97 04/11/20 05:10 100.5 6/24/20 04:00 100.5 89 16 106/81 (89) 98 04/11/20 04:00 93 04/11/20 00:00 99 04/11/20 00:00 99.4 107 20 134/65 (88) 96 04/10/20 22:36 119/59 04/10/20 22:35 104 117/59 04/10/20 22:03 101.1 04/10/20 21:00 Nasal Cannula 2.0 04/10/20 20:06 97 Nasal Cannula 2.0 28 04/10/20 20:00 101.1 104 18 117/59 (78) 96 04/10/20 20:00 104 04/10/20 20:00 99.4 107 20 134/65 (88) 96 04/10/20 16:00 100.0 84 18 160/61 (94) 100 04/10/20 16:00 105 04/10/20 13:55 105 179/69 04/10/20 13:55 179/69 04/10/20 13:55 105 179/69 General Appearance: no apparent distress, alert EENT: PERRL/EOMI, normal ENT inspection, TMs normal, pharynx normal Neck: non-tender, normal alignment, supple, normal inspection, no JVD Rhythm: NSR Cardiovascular: normal peripheral pulses, normal rate, regular rhythm Respiratory/Chest: chest wall non-tender, lungs clear, normal breath sounds Abdomen: normal bowel sounds, non tender, no organomegaly Extremities: normal range of motion, non-tender, normal inspection, no calf tenderness, no swelling Neurologic: stores [place] II-XII grossly normal, no motor/sensory deficits Intake and Output 04/10/20 04/11/20 19:00 07:00 Intake Total 800 ml 880 ml Output Total 1850 ml 2200 ml Balance -1050 ml -1320 ml Intake Oral 800 ml 780 ml IV Total 100 ml Output Urine Total 1850 ml 2200 ml # Voids 2 Laboratory Tests Test 04/11/20 05:25 04/11/20 11:40 White Blood Count 7.9 K/UL (4.8-10.8) Red Blood Count 3.10 M/UL (4.20-5.40) L Hemoglobin 8.0 G/DL (12.0-16.0) L Hematocrit 26.9 % (37.0-47.0) L Mean Corpuscular Volume 87 FL (80-99) Mean Corpuscular Hemoglobin 25.9 PG (27.0-31.0) L Mean Corpuscular Hemoglobin Concent 29.9 G/DL (32.0-36.0) L Red Cell Distribution Width 18.0 % (11.6-14.8) H Platelet Count 323 K/UL (150-450) Mean Platelet Volume 8.2 FL (6.5-10.1) Neutrophils (%) (Auto) 73.1 % (45.0-75.0) Lymphocytes (%) (Auto) 12.4 % (20.0-45.0) L Monocytes (%) (Auto) 12.3 % (1.0-10.0) H Eosinophils (%) (Auto) 0.9 % (0.0-3.0) Basophils (%) (Auto) 1.2 % (0.0-2.0) Sodium Level 141 MMOL/L (136-145) Potassium Level 3.6 MMOL/L (3.5-5.1) Chloride Level 107 MMOL/L (98-107) Carbon Dioxide Level 26 MMOL/L (21-32) Anion Gap 8 mmol/L (5-15) Blood Urea Nitrogen 18 mg/dL (7-18) Creatinine 1.1 MG/DL (0.55-1.30) Estimat Glomerular Filtration Rate > 60 mL/min (>60) Glucose Level 90 MG/DL (74-106) Calcium Level 7.6 MG/DL (8.5-10.1) L Total Bilirubin 0.2 MG/DL (0.2-1.0) Aspartate Amino Transf (AST/SGOT) 18 U/L (15-37) Alanine Aminotransferase (ALT/SGPT) 6 U/L (12-78) L Alkaline Phosphatase 74 U/L (46-116) Total Protein 5.4 G/DL (6.4-8.2) L Albumin 1.3 G/DL (3.4-5.0) L Globulin 4.1 g/dL Albumin/Globulin Ratio 0.3 (1.0-2.7) L Urine Color Pale yellow Urine Appearance Clear Urine pH 6 (4.5-8.0) Urine Specific [place] 1.010 (1.005-1.035) Urine Protein 1+ (NEGATIVE) H Urine Glucose (UA) Negative (NEGATIVE) Urine Ketones Negative (NEGATIVE) Urine Blood Negative (NEGATIVE) Urine Nitrite Negative (NEGATIVE) Urine Bilirubin Negative (NEGATIVE) Urine Urobilinogen Normal MG/DL (0.0-1.0) Urine Leukocyte Esterase Negative (NEGATIVE) Urine RBC 0-2 /HPF (0 - 2) Urine WBC 0-2 /HPF (0 - 2) Urine Squamous Epithelial Cells Moderate /LPF (NONE/OCC) H Urine Bacteria Few /HPF (NONE) Rafat Crooks MD Apr 11, 2020 13:11
--- NOTE | 2020-04-11 13:21 | Nephrology Progress Note ---
Assessment/Plan Plan #VENTURA due to ATN in the setting of rhabdo- on CKD #hyperkalemia #Rhabdo #UTI sepsis #Lactic acidsis #AMS - toxic metabolic encephalopathy #Hypoxemic resp failure #afib with RVR #HLD #Obesity - lasix 40 IV BID - monitor UOP - replete lytes - monitor K,bmp - plan for EGD/colo - weiss placed - strict I&Os - cardiology eval - amiodarone, diltiazem - IV iron - monitor hemoglobin - ID consult- - antibiotics per ID - follow cx - monitor BMP, mag and phos daily - PT 30 minutes of critical care time- greater than 50% on care coordination and counseling Subjective ROS Limited/Unobtainable: No Constitutional: Denies: no symptoms, chills, diaphoresis, fever, malaise, weakness, other HEENT: Denies: no symptoms, eye pain, blurred vision, tearing, double vision, ear pain, ear discharge, nose pain, nose congestion, throat pain, throat swelling, mouth pain, mouth swelling, other Genitourinary: Denies: no symptoms, burning, discharge, frequency, flank pain, hematuria, incontinence, pain, urgency, other Neurologic/Psychiatric: Denies: no symptoms, anxiety, depressed, emotional problems, headache, numbness, paresthesia, pre-existing deficit, seizure, tingling, tremors, weakness, other Subjective Cr stable very weak WBC downtrended evaluated by GI plan for EGD/colo Objective Objective Last 24 Hour Vital Signs Date Time Temp Pulse Resp B/P (MAP) Pulse Ox O2 Delivery O2 Flow Rate FiO2 04/11/20 13:11 160/59 04/11/20 13:10 95 160/59 04/11/20 12:00 98.2 88 19 160/59 (92) 98 04/11/20 12:00 95 04/11/20 09:00 Nasal Cannula 2.0 04/11/20 08:00 98.1 73 18 140/63 (88) 96 04/11/20 08:00 98 04/11/20 06:11 141/66 04/11/20 06:11 89 141/66 04/11/20 06:00 97.6 89 18 141/66 (91) 97 04/11/20 05:10 100.5 04/11/20 04:00 100.5 89 16 106/81 (89) 98 04/11/20 04:00 93 04/11/20 00:00 99 04/11/20 00:00 99.4 107 20 134/65 (88) 96 04/10/20 22:36 119/59 04/10/20 22:35 104 117/59 04/10/20 22:03 101.1 04/10/20 21:00 Nasal Cannula 2.0 04/10/20 20:06 97 Nasal Cannula 2.0 28 04/10/20 20:00 101.1 104 18 117/59 (78) 96 04/10/20 20:00 104 04/10/20 20:00 99.4 107 20 134/65 (88) 96 04/10/20 16:00 100.0 84 18 160/61 (94) 100 04/10/20 16:00 105 04/10/20 13:55 105 179/69 04/10/20 13:55 179/69 04/10/20 13:55 105 179/69 Intake and Output 04/10/20 04/11/20 19:00 07:00 Intake Total 800 ml 880 ml Output Total 1850 ml 2200 ml Balance -1050 ml -1320 ml Intake Oral 800 ml 780 ml IV Total 100 ml Output Urine Total 1850 ml 2200 ml # Voids 2 Laboratory Tests 04/11/20 05:25: White Blood Count 7.9, Red Blood Count 3.10L, Hemoglobin 8.0L, Hematocrit 26.9L , Mean Corpuscular Volume 87, Mean Corpuscular Hemoglobin 25.9L, Mean Corpuscular Hemoglobin Concent 29.9L, Red Cell Distribution Width 18.0H, Platelet Count 323, Mean Platelet Volume 8.2, Neutrophils (%) (Auto) 73.1, Lymphocytes (%) (Auto) 12.4L, Monocytes (%) (Auto) 12.3H, Eosinophils (%) (Auto ) 0.9, Basophils (%) (Auto) 1.2, Sodium Level 141, Potassium Level 3.6, Chloride Level 107, Carbon Dioxide Level 26, Anion Gap 8, Blood Urea Nitrogen 18 , Creatinine 1.1, Estimat Glomerular Filtration Rate > 60, Glucose Level 90, Calcium Level 7.6L, Total Bilirubin 0.2, Aspartate Amino Transf (AST/SGOT) 18, Alanine Aminotransferase (ALT/SGPT) 6L, Alkaline Phosphatase 74, Total Protein 5.4L, Albumin 1.3L, Globulin 4.1, Albumin/Globulin Ratio 0.3L 04/11/20 11:40: Urine Color Pale yellow, Urine Appearance Clear, Urine pH 6, Urine Specific [place] 1.010, Urine Protein 1+H, Urine Glucose (UA) Negative, Urine Ketones Negative, Urine Blood Negative, Urine Nitrite Negative, Urine Bilirubin Negative , Urine Urobilinogen Normal, Urine Leukocyte Esterase Negative, Urine RBC 0-2, Urine WBC 0-2, Urine Squamous Epithelial Cells ModerateH, Urine Bacteria Few Height (Feet): 5 Height (Inches): 6.00 Weight (Pounds): 294 Objective General Appearance: other - intubated Lines, tubes and drains: peripheral HEENT: normocephalic, atraumatic Neck: non-tender, normal alignment, supple Respiratory/Chest: lungs clear Cardiovascular/Chest: normal peripheral pulses, tachycardia, irregularly irregular Abdomen: soft Skin Exam: normal pigmentation Neurologic: disoriented Venkat Montes M.D. Apr 11, 2020 13:21
[2020-04-11] MEDS ORDERED: HydrALAZINE 50mg tab ORAL SCH (13:23)
--- NOTE | 2020-04-11 14:04 | General Progress Note ---
Assessment/Plan Problem List: (1) VENTURA (acute kidney injury) ICD Codes: N17.9 - Acute kidney failure, unspecified SNOMED: 1708041, 84409412 (2) Acute encephalopathy ICD Codes: G93.40 - Encephalopathy, unspecified SNOMED: 0493954 (3) Hypertension ICD Codes: I10 - Essential (primary) hypertension SNOMED: 90306178 (4) Atrial flutter ICD Codes: I48.92 - Unspecified atrial flutter SNOMED: 9840265 (5) Sacral decubitus ulcer ICD Codes: L89.159 - Pressure ulcer of sacral region, unspecified stage SNOMED: 693352654 (6) Chronic back pain ICD Codes: M54.9 - Dorsalgia, unspecified; G89.29 - Other chronic pain SNOMED: 507588389 (7) Sepsis ICD Codes: A41.9 - Sepsis, unspecified organism SNOMED: 13780490 (8) Hyperkalemia ICD Codes: E87.5 - Hyperkalemia SNOMED: 68864816 Status: stable Assessment/Plan: #Acute Hypoxic Resp Failure- resolved - s/p extubation and ICU course - now on NC - CT resp status - lasix per cards and renal - wean o2 #Afib w/ RVR, now in SR, off heparin gtt and on Xarelto - cont amiodarone , cardizem and hydralazine - Cardiology and EP following, appreciate recs - ischemic w/u and ablation prior to dc - DC AC given drop in Hb and + FOBT -> Trend CBC, transfuse for Hb < 7, GI consult (Dr Boyd), f/u rec's-> plan for EGD #Acute Renal Failure 2/2 ATN from Rhabo #Rhabdo - resolved - CTM - Nephrology following, appreciate recs #GI Bleed, Acute Anemia due to blood loss, Iron Deficient - GI following, appreciate recs - awaiting cardiology clearance for scope - fobt positive x 3 #Sepsis, HCAP/UTI, COVID negative , + ESBL - Sputum w/ multiple MDR organisms, now requiring aggressive AB - Now Meropenem, Micagungin, Polymoxin, S/P Vancomyin, Cefepime, Flagyl #Seizure vs prolonged period of immobility # S/P Acute metabolic Encephalopathy #Hx of Colectomy w/ Colostomy DVT and GI ppx; xarelto , holding for bleeding Full Code Dispo 1-2d, pending rehab placement I spent 38min on this encounter w/ 19min on care/coordination and counseling Subjective Date patient seen: Apr 11, 2020 Time patient seen: 10:15 Allergies: Coded Allergies: LISINOPRIL (Verified Allergy, Unknown, Hives, 04/12/14) Subjective denies cp, sob did not tolerate cardiac stress test bc of knee pain No acute events overnight Objective Last 24 Hour Vital Signs Date Time Temp Pulse Resp B/P (MAP) Pulse Ox O2 Delivery O2 Flow Rate FiO2 04/11/20 13:52 160/59 04/11/20 13:11 160/59 04/11/20 13:10 95 160/59 04/11/20 12:00 98.2 88 19 160/59 (92) 98 04/11/20 12:00 95 04/11/20 09:00 Nasal Cannula 2.0 04/11/20 08:00 98.1 73 18 140/63 (88) 96 04/11/20 08:00 98 04/11/20 06:11 141/66 04/11/20 06:11 89 141/66 04/11/20 06:00 97.6 89 18 141/66 (91) 97 04/11/20 05:10 100.5 04/11/20 04:00 100.5 89 16 106/81 (89) 98 04/11/20 04:00 93 04/11/20 00:00 99 04/11/20 00:00 99.4 107 20 134/65 (88) 96 04/10/20 22:36 119/59 04/10/20 22:35 104 117/59 04/10/20 22:03 101.1 04/10/20 21:00 Nasal Cannula 2.0 04/10/20 20:06 97 Nasal Cannula 2.0 28 04/10/20 20:00 101.1 104 18 117/59 (78) 96 04/10/20 20:00 104 04/10/20 20:00 99.4 107 20 134/65 (88) 96 04/10/20 16:00 100.0 84 18 160/61 (94) 100 04/10/20 16:00 105 Intake and Output 6/23/20 6/24/20 19:00 07:00 Intake Total 800 ml 880 ml Output Total 1850 ml 2200 ml Balance -1050 ml -1320 ml Intake Oral 800 ml 780 ml IV Total 100 ml Output Urine Total 1850 ml 2200 ml # Voids 2 Laboratory Tests 04/11/20 05:25: White Blood Count 7.9, Red Blood Count 3.10L, Hemoglobin 8.0L, Hematocrit 26.9L , Mean Corpuscular Volume 87, Mean Corpuscular Hemoglobin 25.9L, Mean Corpuscular Hemoglobin Concent 29.9L, Red Cell Distribution Width 18.0H, Platelet Count 323, Mean Platelet Volume 8.2, Neutrophils (%) (Auto) 73.1, Lymphocytes (%) (Auto) 12.4L, Monocytes (%) (Auto) 12.3H, Eosinophils (%) (Auto ) 0.9, Basophils (%) (Auto) 1.2, Sodium Level 141, Potassium Level 3.6, Chloride Level 107, Carbon Dioxide Level 26, Anion Gap 8, Blood Urea Nitrogen 18 , Creatinine 1.1, Estimat Glomerular Filtration Rate > 60, Glucose Level 90, Calcium Level 7.6L, Total Bilirubin 0.2, Aspartate Amino Transf (AST/SGOT) 18, Alanine Aminotransferase (ALT/SGPT) 6L, Alkaline Phosphatase 74, Total Protein 5.4L, Albumin 1.3L, Globulin 4.1, Albumin/Globulin Ratio 0.3L 04/11/20 11:40: Urine Color Pale yellow, Urine Appearance Clear, Urine pH 6, Urine Specific [place] 1.010, Urine Protein 1+H, Urine Glucose (UA) Negative, Urine Ketones Negative, Urine Blood Negative, Urine Nitrite Negative, Urine Bilirubin Negative , Urine Urobilinogen Normal, Urine Leukocyte Esterase Negative, Urine RBC 0-2, Urine WBC 0-2, Urine Squamous Epithelial Cells ModerateH, Urine Bacteria Few Height (Feet): 5 Height (Inches): 6.00 Weight (Pounds): 294 Objective GENERAL: No acute distress, appears comfortable, alert, obese, anasarca HEENT: NCAT, non-icteric eyes, pupils PERRLA Neck: No cervical lymphadenopathy, trachea midline CV: Regular rate and rhythm, no murmurs rubs or gallops RESP: Clear to auscultation bilaterally, no wheezes/rhonchi/crackles ABD: soft, non-distended, no TTP EXT: Normal muscle tone, +5/5 muscle strength, severe edema bilateral lower extremities NEURO: No obvious deficits, alert and oriented x3 Bell Tanner DO Apr 11, 2020 14:04
--- NOTE | 2020-04-11 14:11 | NUR ---
ST NOTE SWALLOW STATUS Patient being seen for dysphagia tx and management. Plan for Patient to have EGD and colonoscopy tomorrow, therefore, Patient currently on clear liquid diet today (04/11/20) and NPO at midnight tonight in preparation for OR procedure. Per RN Patient continues to tolerate diet, no overt s/s of aspiration with meds or observed during meals. Patient reporting difficulty moving UE, RN made aware of Patient's limited UE ROM and difficulty reaching items. KNOWLEDGE ARCHITECT plans to f/u with Patient s/p OR to assure safety with initial diet recs: Soft, Easy Chew Cardiac Diet +Boris BID. (type/supplements per RD assessment; see below) Per RD on 04/09/20 CURRENT DIET:CARDIAC, soft easy chew PO DIET RECOMMENDATIONS: Cardiac diet / texture per KNOWLEDGE ARCHITECT ADDITIONAL RECOMMENDATIONS: 1) [place] calibrated bed scale wts (243lbs vs 217lbs last adm) 2) Monitor PO intake + tolerance -> s/p extubation, now on soft easy chew texture 3) Wound healing: MVI x 1, Vit C 500mg QD, ZnSO4 220mg QD x 10 days Boris BID 4) Monitor lytes, replete as needed (low mag) . KNOWLEDGE ARCHITECT will follow-up with Patient tomorrow 04/12/20 s/p OR and clearance from MD for PO solids. KNOWLEDGE ARCHITECT [phone]
--- NOTE | 2020-04-11 14:46 | Surgery Progress Note ---
Surgery Progress Note Subjective Symptoms: improved, tolerating diet, passing flatus Objective Last 24 Hour Vital Signs Date Time Temp Pulse Resp B/P (MAP) Pulse Ox O2 Delivery O2 Flow Rate FiO2 04/11/20 13:52 160/59 04/11/20 13:11 160/59 04/11/20 13:10 95 160/59 04/11/20 12:00 98.2 88 19 160/59 (92) 98 04/11/20 12:00 95 04/11/20 09:00 Nasal Cannula 2.0 04/11/20 08:00 98.1 73 18 140/63 (88) 96 04/11/20 08:00 98 04/11/20 06:11 141/66 04/11/20 06:11 89 141/66 04/11/20 06:00 97.6 89 18 141/66 (91) 97 04/11/20 05:10 100.5 04/11/20 04:00 100.5 89 16 106/81 (89) 98 04/11/20 04:00 93 04/11/20 00:00 99 04/11/20 00:00 99.4 107 20 134/65 (88) 96 04/10/20 22:36 119/59 04/10/20 22:35 104 117/59 04/10/20 22:03 101.1 04/10/20 21:00 Nasal Cannula 2.0 04/10/20 20:06 97 Nasal Cannula 2.0 28 04/10/20 20:00 101.1 104 18 117/59 (78) 96 04/10/20 20:00 104 04/10/20 20:00 99.4 107 20 134/65 (88) 96 04/10/20 16:00 100.0 84 18 160/61 (94) 100 04/10/20 16:00 105 I&O Intake and Output 04/10/20 04/11/20 19:00 07:00 Intake Total 800 ml 880 ml Output Total 1850 ml 2200 ml Balance -1050 ml -1320 ml Intake Oral 800 ml 780 ml IV Total 100 ml Output Urine Total 1850 ml 2200 ml # Voids 2 Dressing: dry Wound: clean Cardiovascular: RSR Respiratory: clear, decreased breath sounds Abdomen: soft, non-tender, present bowel sounds Extremities: no edema, no cyanosis Laboratory Tests Test 04/11/20 05:25 04/11/20 11:40 White Blood Count 7.9 K/UL (4.8-10.8) Red Blood Count 3.10 M/UL (4.20-5.40) L Hemoglobin 8.0 G/DL (12.0-16.0) L Hematocrit 26.9 % (37.0-47.0) L Mean Corpuscular Volume 87 FL (80-99) Mean Corpuscular Hemoglobin 25.9 PG (27.0-31.0) L Mean Corpuscular Hemoglobin Concent 29.9 G/DL (32.0-36.0) L Red Cell Distribution Width 18.0 % (11.6-14.8) H Platelet Count 323 K/UL (150-450) Mean Platelet Volume 8.2 FL (6.5-10.1) Neutrophils (%) (Auto) 73.1 % (45.0-75.0) Lymphocytes (%) (Auto) 12.4 % (20.0-45.0) L Monocytes (%) (Auto) 12.3 % (1.0-10.0) H Eosinophils (%) (Auto) 0.9 % (0.0-3.0) Basophils (%) (Auto) 1.2 % (0.0-2.0) Sodium Level 141 MMOL/L (136-145) Potassium Level 3.6 MMOL/L (3.5-5.1) Chloride Level 107 MMOL/L (98-107) Carbon Dioxide Level 26 MMOL/L (21-32) Anion Gap 8 mmol/L (5-15) Blood Urea Nitrogen 18 mg/dL (7-18) Creatinine 1.1 MG/DL (0.55-1.30) Estimat Glomerular Filtration Rate > 60 mL/min (>60) Glucose Level 90 MG/DL (74-106) Calcium Level 7.6 MG/DL (8.5-10.1) L Total Bilirubin 0.2 MG/DL (0.2-1.0) Aspartate Amino Transf (AST/SGOT) 18 U/L (15-37) Alanine Aminotransferase (ALT/SGPT) 6 U/L (12-78) L Alkaline Phosphatase 74 U/L (46-116) Total Protein 5.4 G/DL (6.4-8.2) L Albumin 1.3 G/DL (3.4-5.0) L Globulin 4.1 g/dL Albumin/Globulin Ratio 0.3 (1.0-2.7) L Urine Color Pale yellow Urine Appearance Clear Urine pH 6 (4.5-8.0) Urine Specific [place] 1.010 (1.005-1.035) Urine Protein 1+ (NEGATIVE) H Urine Glucose (UA) Negative (NEGATIVE) Urine Ketones Negative (NEGATIVE) Urine Blood Negative (NEGATIVE) Urine Nitrite Negative (NEGATIVE) Urine Bilirubin Negative (NEGATIVE) Urine Urobilinogen Normal MG/DL (0.0-1.0) Urine Leukocyte Esterase Negative (NEGATIVE) Urine RBC 0-2 /HPF (0 - 2) Urine WBC 0-2 /HPF (0 - 2) Urine Squamous Epithelial Cells Moderate /LPF (NONE/OCC) H Urine Bacteria Few /HPF (NONE) Plan Problems: (1) Atrial flutter (2) Hypertension (3) Acute encephalopathy (4) VENTURA (acute kidney injury) (5) Acute and chronic respiratory failure with hypoxia (6) Abscess (7) Fistula (8) Sciatica neuralgia (9) Uncontrolled seizures (10) Forgetfulness (11) Sacral decubitus ulcer Assessment & Plan: Patient identified to have a sacral deep tissue injury upon admission Currently intensive care unit on support Care plan initiated (12) Chronic back pain (13) Overdose of opiate or related narcotic (14) Cellulitis of left leg (15) Pericolonic abscess due to diverticulitis (16) Ventral incisional hernia Assessment & Plan: History of colon resection colostomy Ventral incisional hernia reducible No acute invention monitor parastomal hernia stable ostomy viable and functional no acute intervention planned (17) Chronic pain of both knees (18) Dehydration (19) Hyperkalemia (20) Sepsis Assessment & Plan: Patient admitted identified to have sepsis leukocytosis tachycardia abnormal labs lactic acidosis. Chest x-ray reviewed. Imaging noted. Micro noted. Intensive care unit on support appreciate ICU care Nutritional optimization IV fluids IV antibiotics as per infectious disease tube feeds once stable will follow with recommendations thank you for letting participate patient's care Urosepsis on abx extubated improving downgrade upper ext edema noted US on coag as per heme Patient reports not liking current diet texture of Moist Puree with Thin Liquids. Patient completed PO intake of solids (crackers), Patient's swallow is grossly functional. Plan: 1. Upgrade Diet Texture to Soft Solids and continue Thin Liquids; type/ supplements per RD. 2. Nursing to assist Patient with oral care BID. DAILY ESTIMATED NEEDS: Needs based on Pulmonary, sepsis, wound, VENTURA 75.8kg adj 20-30 kcals/kg 9634-1560 total kcals 1.25-1.5 g protein/kg 94-114 g total protein 25-30 mL/kg 5522-9873 total fluid mLs NUTRITION DIAGNOSIS: Swallowing difficulty r/t respiratory status as evidenced by pt orally intubated, on NGT feeds-> now extubated, pending MATERIAL MOVERS eval. PO DIET RECOMMENDATIONS-->>> Cardiac diet / texture per MATERIAL MOVERS ENTERAL NUTRITION RECOMMENDATIONS: VITAL AF 1.2 @55ml/hr x24 hrs to provide 1320ml, 1584 kcal, 99g pro, 1071ml free H2O - Maintain at goal as tolerated if not cleared for oral diet by MATERIAL MOVERS - Flush per MD/ HOB over 30 degree ADDITIONAL RECOMMENDATIONS: 1) Maintain calibrated bed scale wts (248lbs vs 217lbs last adm) 2) Monitor renal fxn and lytes closely, need for renal formula Creat wnl; lytes low (K,phos,mg) 3) Wound healing: ZnSO4 220mg QD x 10 days+ Boris BID via NGT hold vit C until renal fxn improves 4) NISS w/ TF, h/o DM 5) Monitor po intake if cleared for oral diet; need for snacks/supplements Julian Iglesias Apr 11, 2020 14:46
[2020-04-11] MEDS ORDERED: Nulytely 4L ORAL SCH (16:00)
[2020-04-11] MEDS: D5 1/2NS w/KCl 20mEq 1,000 ML IV SCH (16:09)
[2020-04-11] MEDS: HYDROcodone/Acetamin 10/325 tab ORAL PRN ×2 (16:09→22:47)
--- NOTE | 2020-04-11 19:23 | NUR ---
HAND-OFF: Report given to Deborah/JOSSELYN, Patient is in stable condition. Endorsed plan of care.
--- NOTE | 2020-04-11 19:30 | NUR ---
NURSE NOTES: Received report from Clara Pelaez RN. Pt in bed, denies pain, in stable condition. Will continue monitoring and plan of care.
[2020-04-11] MEDS: Dyna-Hex 2% Top Sol 2oz TOPIC SCH (20:49)
[2020-04-11] MEDS: Morphine Sulfate 2mg/ml Inj(IV/IM USE ONLY) IVP PRN (21:17)
[2020-04-12] VITALS: BP 119/57
[2020-04-12] MEDS: Morphine Sulfate 4mg/ml Inj (IV USE ONLY) IVP PRN ×5 (03:51→22:57)
[2020-04-12 04:00] VITALS: BP 146/61
[2020-04-12] MEDS: D5 1/2NS w/KCl 20mEq 1,000 ML IV SCH ×3 (05:20→20:56)
[2020-04-12] MEDS: HydrALAZINE 50mg tab ORAL SCH ×3 (05:26→21:52)
[2020-04-12] MEDS: dilTIAZem HCl 90mg tab ORAL SCH ×3 (05:27→21:51)
--- NOTE | 2020-04-12 06:38 | Hematology/Onc Progress Note ---
Assessment/Plan Assessment/Plan Assessment and Recs # Anemia of iron deficiency, with a ferritin that is less than 50 recentrly --> Anemia workup has been ordered, rule out gi bleed --> recheck ferritin, occult was + --> No evidence of hemolysis is noted, peripheral smear has been reviewed. --> Hgb goal >7. Transfuse prn. --> IRon IV x 5 days started 04/06 as ferritin is low --> Medications have been reviewed --> low threshold for gi evaluation in case has occult + --> currently is on XARELTO --> as per Terrance, may need to hold if h /h lower --> hgb trend 8.2-->7.2->8 --> GI eval prn # Hypercoagulable disorder is on xarelto for afib with rvr --> reviewed cards recs --> if any further bleed, consider hold xarelto --> have dw Pcp --> monitor h/h # Leukocytoisis with gram neg pna, uti, sepsis, fevers, leukocytosis, a.flutter , respiratory failure, atx, dony, + ua, atx --> covid is neg --> abx svetlana and micafungin/polymyx=->hola/svetlana --> as per id recs # Respiratory failure, on vent initially --> now extubated # Renal failure. --> improved # Diabetes. --> endo prn # Hypertension. --> per cards # Diabetes and hypertension, treatment per primary care team. --> a1c goal <8, acchuchecks qac and qhs # Patient with history of altered mental status. --> metabolic encephalopathy # Seizure history. # Chronic neck pain. # Lactic acidsis # HLD # Obesity # Dvt ppx xarelto Appreciate consultation and vanessa RN Subjective Constitutional: Denies: no symptoms, chills, fever, malaise, weakness, other HEENT: Denies: no symptoms, eye pain, blurred vision, tearing, double vision, ear pain, ear discharge, nose pain, nose congestion, throat pain, throat swelling, mouth pain, mouth swelling, other Cardiovascular: Denies: no symptoms, chest pain, edema, irregular heart rate, lightheadedness, palpitations, syncope, other Respiratory: Denies: no symptoms, cough, shortness of breath, SOB with excertion, SOB at rest, sputum, wheezing, other Genitourinary: Denies: no symptoms, burning, discharge, frequency, flank pain, hematuria, incontinence, pain, urgency, other Neurologic/Psychiatric: Denies: no symptoms, anxiety, depressed, emotional problems, headache, numbness, paresthesia, pre-existing deficit, seizure, tingling, tremors, weakness, other Endocrine: Denies: no symptoms, excessive sweating, flushing, intolerance to cold, intolerance to heat, increased hunger, increased thirst, increased urine, unexplained weight gain, unexplained weight loss, other Allergies: Coded Allergies: LISINOPRIL (Verified Allergy, Unknown, Hives, 04/12/14) Subjective 04/08 labs have been reviewed, no night sweats, eating overnight, labs pending 04/09 awake, alert with picc, labs from am pending, no major events 04/10 no events, vanessa rn, duplex study reviewed, major vessels show no dvt 04/11 labs reviewed, laying in bed, no complaints, vanessa rn, hgb 8 04/12 no events, no bleeding, meds reviewed, no night sweats Objective Objective Current Medications Medications (Trade) Dose Ordered Sig/Debbie Route PRN Reason Start Time Stop Time Status Last Admin Dose Admin Acetaminophen (Tylenol) 650 mg Q4H PRN ORAL Mild Pain (Pain Scale 1-3) 04/09/20 02:45 04/25/20 21:14 04/09/20 16:44 Acetaminophen (Tylenol) 650 mg Q4H PRN ORAL Temp >100.5 04/09/20 02:45 04/25/20 21:14 04/11/20 04:40 Acetaminophen/ Hydrocodone Bitart ([place] 10/325) 1 tab Q4H PRN ORAL severe pain 04/11/20 13:55 04/18/20 13:54 04/11/20 22:47 Acetaminophen/ Hydrocodone Bitart ([place] 5/325) 1 tab Q4H PRN ORAL Moderate Pain (Pain Scale 4-6) 04/09/20 12:30 04/16/20 12:29 04/11/20 11:27 Al Hydroxide/Mg Hydroxide (Mylanta II) 30 ml Q6H PRN ORAL dyspepsia 04/09/20 04:45 04/25/20 21:14 Amiodarone HCl (Cordarone) 200 mg DAILY ORAL 04/10/20 09:00 07/05/20 20:59 04/11/20 08:29 Bisacodyl (Dulcolax) 10 mg HSPRN PRN RECTAL Constipation 04/08/20 21:15 06/24/20 21:14 Chlorhexidine Gluconate (Laurie-Hex 2%) 1 applic DAILY@2000 TOPIC 04/08/20 20:00 06/26/20 19:59 04/11/20 20:49 Dextrose (Dextrose 50%) 25 ml Q30M PRN IV Hypoglycemia 04/08/20 17:45 06/24/20 21:14 Dextrose (Dextrose 50%) 50 ml Q30M PRN IV Hypoglycemia 04/08/20 17:45 06/24/20 21:14 Dextrose/ Electrolytes 1,000 ml @ 75 mls/hr [id number] IV 04/11/20 16:00 05/11/20 15:59 04/12/20 05:35 Diltiazem HCl (Cardizem) 90 mg EVERY 8 HOURS ORAL 04/09/20 06:00 05/04/20 14:59 04/12/20 05:27 Diphenhydramine HCl (Benadryl) 25 mg Q6H PRN ORAL Itching/Pruritis 04/09/20 05:37 04/25/20 17:36 Docusate Sodium (Colace) 100 mg Q12HR ORAL 04/09/20 09:00 04/29/20 08:59 04/11/20 20:49 Furosemide (Lasix) 40 mg EVERY 12 HOURS IV 04/09/20 21:00 05/09/20 20:59 04/11/20 20:50 Gabapentin (Neurontin) 300 mg BEDTIME ORAL 04/09/20 21:00 04/26/20 20:59 04/11/20 20:49 Hydralazine HCl (Apresoline) 100 mg Q8HR ORAL 04/11/20 22:00 07/10/20 21:59 04/12/20 05:26 Magnesium Hydroxide (Mom) 30 ml HSPRN PRN ORAL Constipation 04/09/20 01:30 05/08/20 17:38 Meropenem 1 gm/ Sodium Chloride 100 ml @ 200 mls/hr Q8HR IVPB 04/08/20 22:00 04/13/20 21:59 04/12/20 05:25 Metoclopramide HCl (Reglan) 10 mg Q6H PRN IVP Nausea & Vomiting 04/08/20 21:15 04/25/20 21:14 Micafungin Sodium 100 mg/Sodium Chloride 100 ml @ 100 mls/hr Q24H IVPB 04/10/20 20:00 04/13/20 19:59 04/11/20 20:50 Morphine Sulfate (Morphine Sulfate) 2 mg Q4H PRN IVP Breakthrough pain 5-10 04/09/20 12:30 04/15/20 17:42 04/11/20 21:17 Morphine Sulfate (Morphine Sulfate) 4 mg Q4H PRN IVP Severe Pain (Pain Scale 7-10) 04/08/20 17:43 04/15/20 17:42 04/12/20 03:51 Ondansetron HCl (Zofran) 4 mg Q6H PRN IVP Nausea & Vomiting 04/08/20 17:44 04/25/20 17:43 Pantoprazole (Protonix) 40 mg DAILY IVP 04/09/20 09:00 05/01/20 08:59 04/11/20 08:29 Polyethylene Glycol (Miralax) 17 gm HSPRN PRN ORAL Constipation 04/09/20 01:30 05/08/20 20:59 Polymyxin B Sulfate [id number] units/Dextrose 500 ml @ 500 mls/hr EVERY 12 HOURS IVPB 04/10/20 21:00 04/14/20 23:59 04/11/20 21:13 Rivaroxaban (Xarelto) 15 mg DAILY ORAL 04/09/20 09:00 06/29/20 08:59 04/10/20 12:09 Last 24 Hour Vital Signs Date Time Temp Pulse Resp B/P (MAP) Pulse Ox O2 Delivery O2 Flow Rate FiO2 04/12/20 05:27 97 146/61 04/12/20 05:26 146/66 04/12/20 04:21 96.9 04/12/20 04:00 111 04/12/20 04:00 96.9 97 20 146/61 (89) 98 04/12/20 00:00 103 04/12/20 00:00 96.6 107 20 119/57 (77) 100 04/11/20 21:19 96 169/69 04/11/20 21:18 169/69 04/11/20 21:00 Venturi Mask 10.0 04/11/20 20:00 94 04/11/20 20:00 98.9 96 20 169/69 (102) 98 04/11/20 16:00 103 04/11/20 16:00 98.3 63 20 152/84 (106) 98 04/11/20 13:52 160/59 04/11/20 13:11 160/59 04/11/20 13:10 95 160/59 04/11/20 12:00 98.2 88 19 160/59 (92) 98 04/11/20 12:00 95 04/11/20 09:00 Nasal Cannula 2.0 04/11/20 08:00 98.1 73 18 140/63 (88) 96 04/11/20 08:00 98 04/11/20 06:11 141/66 04/11/20 06:11 89 141/66 04/11/20 06:00 97.6 89 18 141/66 (91) 97 04/11/20 05:10 100.5 04/11/20 04:00 100.5 89 16 106/81 (89) 98 04/11/20 04:00 93 04/11/20 00:00 99 04/11/20 00:00 99.4 107 20 134/65 (88) 96 04/10/20 22:36 119/59 04/10/20 22:35 104 117/59 04/10/20 21:00 Nasal Cannula 2.0 04/10/20 20:06 97 Nasal Cannula 2.0 28 04/10/20 20:00 101.1 104 18 117/59 (78) 96 04/10/20 20:00 104 04/10/20 20:00 99.4 107 20 134/65 (88) 96 04/10/20 16:00 100.0 84 18 160/61 (94) 100 04/10/20 16:00 105 04/10/20 13:55 105 179/69 04/10/20 13:55 179/69 04/10/20 13:55 105 179/69 04/10/20 12:00 102 04/10/20 12:00 98.1 105 18 179/69 (105) 100 04/10/20 09:59 176/76 04/10/20 09:00 Nasal Cannula 2.0 04/10/20 08:00 98.6 109 18 176/76 (109) 100 04/10/20 08:00 91 Intake and Output 04/11/20 04/12/20 19:00 07:00 Intake Total 2500 ml Output Total 2300 ml 2500 ml Balance 200 ml -2500 ml Intake Oral 500 ml Other 2000 ml Output Urine Total 2300 ml 2500 ml # Voids 2 Labs Test 04/09/20 13:39 04/09/20 20:50 04/10/20 06:46 04/11/20 05:25 White Blood Count 10.5 K/UL (4.8-10.8) 11.2 K/UL (4.8-10.8) 10.2 K/UL (4.8-10.8) 7.9 K/UL (4.8-10.8) Red Blood Count 2.98 M/UL (4.20-5.40) 2.97 M/UL (4.20-5.40) 3.00 M/UL (4.20-5.40) 3.10 M/UL (4.20-5.40) Hemoglobin 7.7 G/DL (12.0-16.0) 7.7 G/DL (12.0-16.0) 7.9 G/DL (12.0-16.0) 8.0 G/DL (12.0-16.0) Hematocrit 26.2 % (37.0-47.0) 25.4 % (37.0-47.0) 26.3 % (37.0-47.0) 26.9 % (37.0-47.0) Mean Corpuscular Volume 88 FL (80-99) 85 FL (80-99) 88 FL (80-99) 87 FL (80- 99) Mean Corpuscular Hemoglobin 25.8 PG (27.0-31.0) 26.1 PG (27.0-31.0) 26.3 PG (27.0-31.0) 25.9 PG (27.0-31.0) Mean Corpuscular Hemoglobin Concent 29.3 G/DL (32.0-36.0) 30.5 G/DL (32.0-36.0) 29.9 G/DL (32.0-36.0) 29.9 G/DL (32.0-36.0) Red Cell Distribution Width 18.6 % (11.6-14.8) 19.3 % (11.6-14.8) 18.7 % (11.6-14.8) 18.0 % (11.6-14.8) Platelet Count 297 K/UL (150-450) 300 K/UL (150-450) 288 K/UL (150-450) 323 K/UL (150-450) Mean Platelet Volume 7.4 FL (6.5-10.1) 7.1 FL (6.5-10.1) 7.0 FL (6.5-10.1) 8.2 FL (6.5-10.1) Neutrophils (%) (Auto) % (45.0-75.0) 81.4 % (45.0-75.0) % (45.0-75.0) 73.1 % (45.0-75.0) Lymphocytes (%) (Auto) % (20.0-45.0) 8.8 % (20.0-45.0) % (20.0-45.0) 12.4 % (20.0-45.0) Monocytes (%) (Auto) % (1.0-10.0) 7.8 % (1.0-10.0) % (1.0-10.0) 12.3 % (1.0-10.0) Eosinophils (%) (Auto) % (0.0-3.0) 0.8 % (0.0-3.0) % (0.0-3.0) 0.9 % (0.0-3.0) Basophils (%) (Auto) % (0.0-2.0) 1.2 % (0.0-2.0) % (0.0-2.0) 1.2 % (0.0-2.0) Differential Total Cells Counted 100 100 Neutrophils % (Manual) 77 % (45-75) 88 % (45-75) Lymphocytes % (Manual) 14 % (20-45) 7 % (20-45) Monocytes % (Manual) 8 % (1-10) 4 % (1-10) Eosinophils % (Manual) 1 % (0-3) 1 % (0-3) Basophils % (Manual) 0 % (0-2) 0 % (0-2) Band Neutrophils 0 % (0-8) 0 % (0-8) Platelet Estimate Adequate Adequate Platelet Morphology Normal Normal Hypochromasia 1+ Anisocytosis 1+ Sodium Level 140 MMOL/L (136-145) 141 MMOL/L (136-145) Potassium Level 4.1 MMOL/L (3.5-5.1) 3.6 MMOL/L (3.5-5.1) Chloride Level 109 MMOL/L (98-107) 107 MMOL/L (98-107) Carbon Dioxide Level 25 MMOL/L (21-32) 26 MMOL/L (21-32) Anion Gap 6 mmol/L (5-15) 8 mmol/L (5-15) Blood Urea Nitrogen 16 mg/dL (7-18) 18 mg/dL (7-18) Creatinine 1.0 MG/DL (0.55-1.30) 1.1 MG/DL (0.55-1.30) Estimat Glomerular Filtration Rate > 60 mL/min (>60) > 60 mL/min (>60) Glucose Level 90 MG/DL (74-106) 90 MG/DL (74-106) Calcium Level 8.5 MG/DL (8.5-10.1) 7.6 MG/DL (8.5-10.1) Ferritin 274 NG/ML (8-388) Total Bilirubin 0.2 MG/DL (0.2-1.0) 0.2 MG/DL (0.2-1.0) Aspartate Amino Transf (AST/SGOT) 17 U/L (15-37) 18 U/L (15-37) Alanine Aminotransferase (ALT/SGPT) 6 U/L (12-78) 6 U/L (12-78) Alkaline Phosphatase 73 U/L (46-116) 74 U/L (46-116) Total Protein 5.4 G/DL (6.4-8.2) 5.4 G/DL (6.4-8.2) Albumin 1.3 G/DL (3.4-5.0) 1.3 G/DL (3.4-5.0) Globulin 4.1 g/dL 4.1 g/dL Albumin/Globulin Ratio 0.3 (1.0-2.7) 0.3 (1.0-2.7) Test 04/11/20 11:40 Urine Color Pale yellow Urine Appearance Clear Urine pH 6 (4.5-8.0) Urine Specific [place] 1.010 (1.005-1.035) Urine Protein 1+ (NEGATIVE) Urine Glucose (UA) Negative (NEGATIVE) Urine Ketones Negative (NEGATIVE) Urine Blood Negative (NEGATIVE) Urine Nitrite Negative (NEGATIVE) Urine Bilirubin Negative (NEGATIVE) Urine Urobilinogen Normal MG/DL (0.0-1.0) Urine Leukocyte Esterase Negative (NEGATIVE) Urine RBC 0-2 /HPF (0 - 2) Urine WBC 0-2 /HPF (0 - 2) Urine Squamous Epithelial Cells Moderate /LPF (NONE/OCC) Urine Bacteria Few /HPF (NONE) Height (Feet): 5 Height (Inches): 8.00 Weight (Pounds): 294 Objective Physical Exam Sp02 EP Interpretation: reviewed, normal General: Patient appears chronically ill Head: normocephalic, atraumatic ++ngt Respiratory: , crackles - both lower lobes Cardiovascular: tachycardia Gastrointestinal: non tender, soft Musculoskeletal: other - Patient appears chronically debilitated both lower extremities are extended Neurologic: other - Some verbal response, but chronic disability Skin: no rash : ++Virgil Chowdhury MD Apr 12, 2020 06:37
--- NOTE | 2020-04-12 06:48 | NUR ---
NURSE NOTES: Informed Dr. Boyd that pt did not complete Gol[place]ely Bowel Prep. Pt finished about 1/3 of the contents. No new orders given at this time.
--- NOTE | 2020-04-12 07:13 | NUR ---
HAND-OFF: Report given to Alexis Pelaez RN. Pt is in stable condition, plan of care endorsed. Addendum: 04/12/20 at 0720 by Deborah Gregorio RN NURSE NOTES: Report given to Clara Pelaez RN. Pt in stable condition. Plan of care endorsed. Addendum: 04/12/20 at 0745 by Clara Shultz RN Received report at 07:31, not at 07:13
--- NOTE | 2020-04-12 07:20 | NUR ---
NURSE NOTES: Left VM for Dr. Cordova requesting approval for rapid COVID testing r/t upcoming procedure. Awaiting reply. Endorsed to next shift.
--- NOTE | 2020-04-12 07:32 | NUR ---
NURSE NOTES: Received report from Deborah/RN, Patient lying semi-bustamante's in bed, resting comfortably, On 2L nasal canula, no acute distress/SOB noted, Able to make needs known, Keily pain at this time. IV on right Hand, patent. Desai draining well to gravity. Bed in low position and locked, side rails up x3. Call light within reach. Encouraged to use call light when needed. Will continue plan of care.
[2020-04-12 08:00] VITALS: BP 163/77
[2020-04-12 08:41] LABS: HEMATOCRIT 27.5 % (37.0-47.0); HEMOGLOBIN 8.3 G/DL (12.0-16.0); LYMPHOCYTES % (AUTO) 14.6 % (20.0-45.0); MEAN CORPUSCULAR VOLUME 87 FL (80-99); MONOCYTES % (AUTO) 12.1 % (1.0-10.0); NEUTROPHILS % (AUTO) 71.4 % (45.0-75.0); PLATELET COUNT 376 K/UL (150-450); RED BLOOD COUNT 3.16 M/UL (4.20-5.40); RED CELL DISTRIBUTION WIDTH 17.6 % (11.6-14.8); WHITE BLOOD COUNT 7.2 K/UL (4.8-10.8)
[2020-04-12 09:12] LABS: ANION GAP 10 mmol/L (5-15); BLOOD UREA NITROGEN 14 mg/dL (7-18); CALCIUM 8.5 MG/DL (8.5-10.1); CARBON DIOXIDE 24 MMOL/L (21-32); CHLORIDE 105 MMOL/L (98-107); SODIUM 139 MMOL/L (136-145)
[2020-04-12] MEDS: Docusate 100mg/10ml Liq ORAL SCH ×3 (09:30→21:00)
[2020-04-12] MEDS: Amiodarone 200mg tab ORAL SCH (09:30)
[2020-04-12] MEDS: Xarelto 15mg tab ORAL SCH (09:30)
[2020-04-12] MEDS: Pantoprazole Inj IVP SCH (09:31)
[2020-04-12] MEDS: Polymyxin B Sulfate 500,000 UNITS in D5W 500ml 500 ML IVPB SCH ×2 (09:31→21:52)
--- NOTE | 2020-04-12 09:31 | Nephrology Progress Note ---
Assessment/Plan Plan #VENTURA due to ATN in the setting of rhabdo- on CKD #hyperkalemia #Rhabdo #UTI sepsis #Lactic acidsis #AMS - toxic metabolic encephalopathy #Hypoxemic resp failure #afib with RVR #HLD #Obesity - lasix 40 IV BID - monitor UOP - replete lytes - monitor K,bmp - plan for EGD/colo - weiss placed - strict I&Os - cardiology eval - amiodarone, diltiazem - s/p IV iron - monitor hemoglobin - norco dose adjuested - ID consult- - antibiotics per ID - follow cx - monitor BMP, mag and phos daily - PT 30 minutes of critical care time- greater than 50% on care coordination and counseling Subjective ROS Limited/Unobtainable: No Constitutional: Reports: malaise, weakness HEENT: Denies: no symptoms, eye pain, blurred vision, tearing, double vision, ear pain, ear discharge, nose pain, nose congestion, throat pain, throat swelling, mouth pain, mouth swelling, other Genitourinary: Denies: no symptoms, burning, discharge, frequency, flank pain, hematuria, incontinence, pain, urgency, other Neurologic/Psychiatric: Denies: no symptoms, anxiety, depressed, emotional problems, headache, numbness, paresthesia, pre-existing deficit, seizure, tingling, tremors, weakness, other Subjective Cr stable very weak evaluated by GI plan for EGD/colo complains of leg pain increased [place] dose Objective Objective Last 24 Hour Vital Signs Date Time Temp Pulse Resp B/P (MAP) Pulse Ox O2 Delivery O2 Flow Rate FiO2 04/12/20 08:00 97.1 103 21 163/77 (105) 97 04/12/20 05:27 97 146/61 04/12/20 05:26 146/66 04/12/20 04:21 96.9 04/12/20 04:00 111 04/12/20 04:00 96.9 97 20 146/61 (89) 98 04/12/20 00:00 103 04/12/20 00:00 96.6 107 20 119/57 (77) 100 04/11/20 21:19 96 169/69 04/11/20 21:18 169/69 04/11/20 21:00 Nasal Cannula 2.0 04/11/20 20:00 94 04/11/20 20:00 98.9 96 20 169/69 (102) 98 04/11/20 16:00 103 04/11/20 16:00 98.3 63 20 152/84 (106) 98 04/11/20 13:52 160/59 04/11/20 13:11 160/59 04/11/20 13:10 95 160/59 04/11/20 12:00 98.2 88 19 160/59 (92) 98 04/11/20 12:00 95 Intake and Output 04/11/20 04/12/20 18:59 06:59 Intake Total 2500 ml Output Total 2300 ml 2500 ml Balance 200 ml -2500 ml Intake Oral 500 ml Other 2000 ml Output Urine Total 2300 ml 2500 ml # Voids 2 Laboratory Tests 04/11/20 11:40: Urine Color Pale yellow, Urine Appearance Clear, Urine pH 6, Urine Specific [place] 1.010, Urine Protein 1+H, Urine Glucose (UA) Negative, Urine Ketones Negative, Urine Blood Negative, Urine Nitrite Negative, Urine Bilirubin Negative , Urine Urobilinogen Normal, Urine Leukocyte Esterase Negative, Urine RBC 0-2, Urine WBC 0-2, Urine Squamous Epithelial Cells ModerateH, Urine Bacteria Few 04/12/20 08:20: White Blood Count 7.2, Red Blood Count 3.16L, Hemoglobin 8.3L, Hematocrit 27.5L , Mean Corpuscular Volume 87, Mean Corpuscular Hemoglobin 26.3L, Mean Corpuscular Hemoglobin Concent 30.3L, Red Cell Distribution Width 17.6H, Platelet Count 376, Mean Platelet Volume 6.8, Neutrophils (%) (Auto) 71.4, Lymphocytes (%) (Auto) 14.6L, Monocytes (%) (Auto) 12.1H, Eosinophils (%) (Auto ) 1.0, Basophils (%) (Auto) 1.0, Sodium Level 139, Potassium Level 4.0, Chloride Level 105, Carbon Dioxide Level 24, Anion Gap 10, Blood Urea Nitrogen 14, Creatinine 1.0, Estimat Glomerular Filtration Rate > 60, Glucose Level 95, Calcium Level 8.5 Height (Feet): 5 Height (Inches): 8.00 Weight (Pounds): 294 Objective General Appearance: no distress Lines, tubes and drains: peripheral HEENT: normocephalic, atraumatic Neck: non-tender, normal alignment, supple Respiratory/Chest: lungs clear Cardiovascular/Chest: normal peripheral pulses, tachycardia, irregularly irregular Abdomen: soft Skin Exam: normal pigmentation Neurologic: nonfocal Venkat Montes M.D. Apr 12, 2020 09:30
--- NOTE | 2020-04-12 10:21 | Cardiac Electrophysiology PN ---
Assessment/Plan Assessment/Plan 1. Atrial flutter with rapid ventricular response of 170s. On Cardizem 90 OG tid and amiodarone 200 po daily On Xarelto 15 mg daily but is on hold for rectal bleeding for EGD nd colonoscopy tomorrow. Would benefit from atrial flutter ablation when stable Ischemia eval per Dr. Crooks ( Patient couldn't complete the stress test) . 2. Hypertension. On Cardizem 3. S/P Respiratory failure, extubated 4. Acute renal failure, that is improving. 5. Normal left ventricular systolic function by echo on March 26, 2020, with EF of 55%. 6. Severe bilateral LE edema. On Lasix 40 iv bid. Bilateral LE duplex, showed no DVT 7. Rectal bleed, Xarelto on hold. EGD and Colonoscopy today pending DW RN Subjective Subjective In SR on PO Amiodarone and Cardizem. Stress test cancelled as she couldn't tolerate it. NPO for EGD and colonoscopy today for positive OB Objective Last 24 Hour Vital Signs Date Time Temp Pulse Resp B/P (MAP) Pulse Ox O2 Delivery O2 Flow Rate FiO2 04/12/20 08:00 97.1 103 21 163/77 (105) 97 04/12/20 05:27 97 146/61 04/12/20 05:26 146/66 04/12/20 04:21 96.9 04/12/20 04:00 111 04/12/20 04:00 96.9 97 20 146/61 (89) 98 04/12/20 00:00 103 04/12/20 00:00 96.6 107 20 119/57 (77) 100 04/11/20 21:19 96 169/69 04/11/20 21:18 169/69 04/11/20 21:00 Nasal Cannula 2.0 04/11/20 20:00 94 04/11/20 20:00 98.9 96 20 169/69 (102) 98 04/11/20 16:00 103 04/11/20 16:00 98.3 63 20 152/84 (106) 98 04/11/20 13:52 160/59 04/11/20 13:11 160/59 04/11/20 13:10 95 160/59 04/11/20 12:00 98.2 88 19 160/59 (92) 98 04/11/20 12:00 95 Intake and Output 04/11/20 04/12/20 19:00 07:00 Intake Total 2500 ml Output Total 2300 ml 2500 ml Balance 200 ml -2500 ml Intake Oral 500 ml Other 2000 ml Output Urine Total 2300 ml 2500 ml # Voids 2 Laboratory Tests Test 04/11/20 11:40 04/12/20 08:20 Urine Color Pale yellow Urine Appearance Clear Urine pH 6 (4.5-8.0) Urine Specific [place] 1.010 (1.005-1.035) Urine Protein 1+ (NEGATIVE) H Urine Glucose (UA) Negative (NEGATIVE) Urine Ketones Negative (NEGATIVE) Urine Blood Negative (NEGATIVE) Urine Nitrite Negative (NEGATIVE) Urine Bilirubin Negative (NEGATIVE) Urine Urobilinogen Normal MG/DL (0.0-1.0) Urine Leukocyte Esterase Negative (NEGATIVE) Urine RBC 0-2 /HPF (0 - 2) Urine WBC 0-2 /HPF (0 - 2) Urine Squamous Epithelial Cells Moderate /LPF (NONE/OCC) H Urine Bacteria Few /HPF (NONE) White Blood Count 7.2 K/UL (4.8-10.8) Red Blood Count 3.16 M/UL (4.20-5.40) L Hemoglobin 8.3 G/DL (12.0-16.0) L Hematocrit 27.5 % (37.0-47.0) L Mean Corpuscular Volume 87 FL (80-99) Mean Corpuscular Hemoglobin 26.3 PG (27.0-31.0) L Mean Corpuscular Hemoglobin Concent 30.3 G/DL (32.0-36.0) L Red Cell Distribution Width 17.6 % (11.6-14.8) H Platelet Count 376 K/UL (150-450) Mean Platelet Volume 6.8 FL (6.5-10.1) Neutrophils (%) (Auto) 71.4 % (45.0-75.0) Lymphocytes (%) (Auto) 14.6 % (20.0-45.0) L Monocytes (%) (Auto) 12.1 % (1.0-10.0) H Eosinophils (%) (Auto) 1.0 % (0.0-3.0) Basophils (%) (Auto) 1.0 % (0.0-2.0) Sodium Level 139 MMOL/L (136-145) Potassium Level 4.0 MMOL/L (3.5-5.1) Chloride Level 105 MMOL/L (98-107) Carbon Dioxide Level 24 MMOL/L (21-32) Anion Gap 10 mmol/L (5-15) Blood Urea Nitrogen 14 mg/dL (7-18) Creatinine 1.0 MG/DL (0.55-1.30) Estimat Glomerular Filtration Rate > 60 mL/min (>60) Glucose Level 95 MG/DL (74-106) Calcium Level 8.5 MG/DL (8.5-10.1) Objective NECK: No JVD LUNGS: Coarse rhonchi. CARDIOVASCULAR: Regular S1 and S2 with no gallop. ABDOMEN: Soft. EXTREMITIES: No pitting edema. Carlos Dean MD Apr 12, 2020 10:21
[2020-04-12] MEDS ORDERED: Ketamine 500mg/10ml vial ONE (11:02)
[2020-04-12] MEDS ORDERED: Midazolam 2mg/2ml Inj ONE (11:02)
[2020-04-12] MEDS: Acetaminophen 650mg/20.3ml ORAL PRN (11:03)
--- NOTE | 2020-04-12 11:16 | NUR ---
CASE MANAGEMENT:REVIEW 04/12/20 SI;NOW + DVT . GRAHAM PNA~ SLIGHT IMPROVEMENT . SPUTUM + ECOLI S/P EXTUBATION 04/05 101.5 103 21 163/77 97% 2L NC H/H 8.3/27.5 CA+7.6 ALB 1.3 IS:GI LAB: EGD/COLONOSCOPY IV D5 @75ML/HR IV LASIX BID XARELTO NGT QD IV POLYMYXIN BID IV MICAFUNGIN QD IV MEROPENEM TID NEURONTIN PO QHS AMIODARONE NGT BID HYDRALAZINE PO TID CARDIZEM PO TID IV PROTONIX QD TYLENOL PO Q4HR/PRN \: 3E MED SURG UNIT DCP: HOME WHEN STABLE PLAN: OB STOOL (+)X3 ~GI PLANS FOR EGD/COLONOSCOPY THURSDAY UNABLE TO TOLERATE LEXISCAN~ON HOLD DECREASE UPPER STRENGTH MOBILITY PATIENT REQUIRING TO BE FED ENCOURAGE UPPER BODY EXERCISES TO IMPROVE STRENGTH COVID-19 ~NEGATIVE X1 CONT TO HAVE INCREASE FEVERS ID~URINE CX X3 IN PROCESS ID~BLOOD CX ~IN PROCESS
--- NOTE | 2020-04-12 11:20 | Cardiology Progress Note ---
Assessment/Plan Status: stable Assessment/Plan Assessment/Plan Problem List: (1) Atrial flutter ICD Codes: I48.92 - Unspecified atrial flutter SNOMED: 3441033 (2) Hypertension ICD Codes: I10 - Essential (primary) hypertension SNOMED: 56598101 (3) Hyperkalemia ICD Codes: E87.5 - Hyperkalemia SNOMED: 06737212 (4) Acute encephalopathy ICD Codes: G93.40 - Encephalopathy, unspecified SNOMED: 1061242 (5) Acute and chronic respiratory failure with hypoxia ICD Codes: J96.21 - Acute and chronic respiratory failure with hypoxia SNOMED: 07802232, 552032159 (6) VENTURA (acute kidney injury) ICD Codes: N17.9 - Acute kidney failure, unspecified SNOMED: 5767695, 23057320 Status: deteriorating AFIB/Flutter: Converted to normal sinus Continue amiodarone to maintain sinus Cardizem for rate control Echocardiogram with normal LV function Ischemia evaluation at later date Continue anticoagulation with xarelto 15 mg (held for endoscopy ) EP for ablation as outpatient Clear to proceed with GI procedures given low risk Subjective Cardiovascular: Reports: no symptoms Respiratory: Reports: no symptoms Gastrointestinal/Abdominal: Reports: no symptoms Genitourinary: Reports: no symptoms Subjective No acute events, patient stable on nasal canula and remains in normal sinus, no fevers, vitals stable, no complaints, stable on floors, amiodarone titrated down She could not complete stress test due to inability to lay flat GI for endoscopy , xarelto to be held Objective Last 24 Hour Vital Signs Date Time Temp Pulse Resp B/P (MAP) Pulse Ox O2 Delivery O2 Flow Rate FiO2 04/12/20 08:00 97.1 103 21 163/77 (105) 97 04/12/20 05:27 97 146/61 04/12/20 05:26 146/66 04/12/20 04:21 96.9 04/12/20 04:00 111 04/12/20 04:00 96.9 97 20 146/61 (89) 98 04/12/20 00:00 103 04/12/20 00:00 96.6 107 20 119/57 (77) 100 04/11/20 21:19 96 169/69 04/11/20 21:18 169/69 04/11/20 21:00 Nasal Cannula 2.0 04/11/20 20:00 94 04/11/20 20:00 98.9 96 20 169/69 (102) 98 04/11/20 16:00 103 04/11/20 16:00 98.3 63 20 152/84 (106) 98 04/11/20 13:52 160/59 04/11/20 13:11 160/59 04/11/20 13:10 95 160/59 04/11/20 12:00 98.2 88 19 160/59 (92) 98 04/11/20 12:00 95 General Appearance: no apparent distress, alert EENT: PERRL/EOMI, normal ENT inspection, TMs normal, pharynx normal Neck: non-tender, normal alignment, supple, normal inspection, no JVD Rhythm: NSR Cardiovascular: normal peripheral pulses, normal rate, regular rhythm Respiratory/Chest: chest wall non-tender, lungs clear, normal breath sounds Abdomen: normal bowel sounds, non tender, soft, no organomegaly, no mass Extremities: normal range of motion, non-tender, normal inspection, no calf tenderness, no swelling Neurologic: country director II-XII grossly normal, no motor/sensory deficits Intake and Output 04/11/20 04/12/20 19:00 07:00 Intake Total 2500 ml Output Total 2300 ml 2500 ml Balance 200 ml -2500 ml Intake Oral 500 ml Other 2000 ml Output Urine Total 2300 ml 2500 ml # Voids 2 Laboratory Tests Test 04/11/20 11:40 04/12/20 08:20 Urine Color Pale yellow Urine Appearance Clear Urine pH 6 (4.5-8.0) Urine Specific [place] 1.010 (1.005-1.035) Urine Protein 1+ (NEGATIVE) H Urine Glucose (UA) Negative (NEGATIVE) Urine Ketones Negative (NEGATIVE) Urine Blood Negative (NEGATIVE) Urine Nitrite Negative (NEGATIVE) Urine Bilirubin Negative (NEGATIVE) Urine Urobilinogen Normal MG/DL (0.0-1.0) Urine Leukocyte Esterase Negative (NEGATIVE) Urine RBC 0-2 /HPF (0 - 2) Urine WBC 0-2 /HPF (0 - 2) Urine Squamous Epithelial Cells Moderate /LPF (NONE/OCC) H Urine Bacteria Few /HPF (NONE) White Blood Count 7.2 K/UL (4.8-10.8) Red Blood Count 3.16 M/UL (4.20-5.40) L Hemoglobin 8.3 G/DL (12.0-16.0) L Hematocrit 27.5 % (37.0-47.0) L Mean Corpuscular Volume 87 FL (80-99) Mean Corpuscular Hemoglobin 26.3 PG (27.0-31.0) L Mean Corpuscular Hemoglobin Concent 30.3 G/DL (32.0-36.0) L Red Cell Distribution Width 17.6 % (11.6-14.8) H Platelet Count 376 K/UL (150-450) Mean Platelet Volume 6.8 FL (6.5-10.1) Neutrophils (%) (Auto) 71.4 % (45.0-75.0) Lymphocytes (%) (Auto) 14.6 % (20.0-45.0) L Monocytes (%) (Auto) 12.1 % (1.0-10.0) H Eosinophils (%) (Auto) 1.0 % (0.0-3.0) Basophils (%) (Auto) 1.0 % (0.0-2.0) Sodium Level 139 MMOL/L (136-145) Potassium Level 4.0 MMOL/L (3.5-5.1) Chloride Level 105 MMOL/L (98-107) Carbon Dioxide Level 24 MMOL/L (21-32) Anion Gap 10 mmol/L (5-15) Blood Urea Nitrogen 14 mg/dL (7-18) Creatinine 1.0 MG/DL (0.55-1.30) Estimat Glomerular Filtration Rate > 60 mL/min (>60) Glucose Level 95 MG/DL (74-106) Calcium Level 8.5 MG/DL (8.5-10.1) Microbiology Date/Time Source Procedure Growth Status 04/12/20 10:12 Nasopharynx SARS-CoV-2 RdRp Gene Assay - Final Complete Filsoof,Rafat Mckeon MD Apr 12, 2020 11:20
[2020-04-12 12:00] VITALS: BP 137/56
--- NOTE | 2020-04-12 12:27 | General Progress Note ---
Assessment/Plan Status: stable Assessment/Plan: 1. History of diabetes. 2. Obesity. 3. Hypertension. 4. Hypercholesterolemia. 5. Diverticulosis/diverticulitis. 6. History of uterine fibroids. 7. Anemi 8. Stool ob positive x3 9. A.fib EGD and colonoscopy was canceled due to high fever stable H&H will hold GI procedures for now Subjective Allergies: Coded Allergies: LISINOPRIL (Verified Allergy, Unknown, Hives, 04/12/14) Objective Last 24 Hour Vital Signs Date Time Temp Pulse Resp B/P (MAP) Pulse Ox O2 Delivery O2 Flow Rate FiO2 04/12/20 11:33 101.5 04/12/20 09:00 Nasal Cannula 2.0 04/12/20 08:00 97.1 103 21 163/77 (105) 97 04/12/20 08:00 121 04/12/20 05:27 97 146/61 04/12/20 05:26 146/66 04/12/20 04:21 96.9 04/12/20 04:00 111 04/12/20 04:00 96.9 97 20 146/61 (89) 98 04/12/20 00:00 103 04/12/20 00:00 96.6 107 20 119/57 (77) 100 04/11/20 21:19 96 169/69 04/11/20 21:18 169/69 04/11/20 21:00 Nasal Cannula 2.0 04/11/20 20:00 94 04/11/20 20:00 98.9 96 20 169/69 (102) 98 04/11/20 16:00 103 04/11/20 16:00 98.3 63 20 152/84 (106) 98 04/11/20 13:52 160/59 04/11/20 13:11 160/59 04/11/20 13:10 95 160/59 Intake and Output 04/11/20 04/12/20 19:00 07:00 Intake Total 2500 ml Output Total 2300 ml 2500 ml Balance 200 ml -2500 ml Intake Oral 500 ml Other 2000 ml Output Urine Total 2300 ml 2500 ml # Voids 2 Laboratory Tests 04/12/20 08:20: White Blood Count 7.2, Red Blood Count 3.16L, Hemoglobin 8.3L, Hematocrit 27.5L , Mean Corpuscular Volume 87, Mean Corpuscular Hemoglobin 26.3L, Mean Corpuscular Hemoglobin Concent 30.3L, Red Cell Distribution Width 17.6H, Platelet Count 376, Mean Platelet Volume 6.8, Neutrophils (%) (Auto) 71.4, Lymphocytes (%) (Auto) 14.6L, Monocytes (%) (Auto) 12.1H, Eosinophils (%) (Auto ) 1.0, Basophils (%) (Auto) 1.0, Sodium Level 139, Potassium Level 4.0, Chloride Level 105, Carbon Dioxide Level 24, Anion Gap 10, Blood Urea Nitrogen 14, Creatinine 1.0, Estimat Glomerular Filtration Rate > 60, Glucose Level 95, Calcium Level 8.5 Height (Feet): 5 Height (Inches): 8.00 Weight (Pounds): 294 General Appearance: alert EENT: normal ENT inspection Neck: supple Cardiovascular: normal rate Respiratory/Chest: decreased breath sounds Abdomen: soft, hypoactive bowel sounds Extremities: non-tender Arturo Boyd MD Apr 12, 2020 12:27
[2020-04-12] MEDS: HYDROcodone/Acetamin 10/325 tab ORAL PRN ×2 (12:28→21:53)
--- NOTE | 2020-04-12 14:14 | Pulmonology Progress Note ---
Subjective ROS Limited/Unobtainable: No Interval Events: Extubated 04/05/20; doing well on 2L/min O2 Constitutional: Reports: fever HEENT: Repors: no symptoms Respiratory: Reports: no symptoms Cardiovascular: Reports: no symptoms Gastrointestinal/Abdominal: Denies: nausea, vomiting, diarrhea Genitourinary: Reports: no symptoms Psychiatric: Denies: depression Skin: Denies: rash Musculoskeletal: Denies: pain Allergies: Coded Allergies: LISINOPRIL (Verified Allergy, Unknown, Hives, 04/12/14) All Systems: reviewed and negative except above Objective Last 24 Hour Vital Signs Date Time Temp Pulse Resp B/P (MAP) Pulse Ox O2 Delivery O2 Flow Rate FiO2 04/12/20 13:44 137/56 04/12/20 13:44 107 137/56 04/12/20 12:45 98.4 04/12/20 12:30 101.5 04/12/20 12:00 107 04/12/20 12:00 101.7 107 19 137/56 (83) 99 04/12/20 11:33 101.5 04/12/20 09:00 Nasal Cannula 2.0 04/12/20 08:00 97.1 103 21 163/77 (105) 97 04/12/20 08:00 121 04/12/20 05:27 97 146/61 04/12/20 05:26 146/66 04/12/20 04:21 96.9 04/12/20 04:00 111 04/12/20 04:00 96.9 97 20 146/61 (89) 98 04/12/20 00:00 103 04/12/20 00:00 96.6 107 20 119/57 (77) 100 04/11/20 21:19 96 169/69 04/11/20 21:18 169/69 04/11/20 21:00 Nasal Cannula 2.0 04/11/20 20:00 94 04/11/20 20:00 98.9 96 20 169/69 (102) 98 04/11/20 16:00 103 04/11/20 16:00 98.3 63 20 152/84 (106) 98 Intake and Output 04/11/20 04/12/20 19:00 07:00 Intake Total 2500 ml Output Total 2300 ml 2500 ml Balance 200 ml -2500 ml Intake Oral 500 ml Other 2000 ml Output Urine Total 2300 ml 2500 ml # Voids 2 General Appearance: no acute distress HEENT: normocephalic Respiratory: chest wall non-tender, lungs clear Cardiovascular: normal peripheral pulses, normal rate Abdomen: normal bowel sounds Microbiology Date/Time Source Procedure Growth Status 04/12/20 10:12 Nasopharynx SARS-CoV-2 RdRp Gene Assay - Final Complete Laboratory Tests 04/12/20 08:20: White Blood Count 7.2, Red Blood Count 3.16L, Hemoglobin 8.3L, Hematocrit 27.5L , Mean Corpuscular Volume 87, Mean Corpuscular Hemoglobin 26.3L, Mean Corpuscular Hemoglobin Concent 30.3L, Red Cell Distribution Width 17.6H, Platelet Count 376, Mean Platelet Volume 6.8, Neutrophils (%) (Auto) 71.4, Lymphocytes (%) (Auto) 14.6L, Monocytes (%) (Auto) 12.1H, Eosinophils (%) (Auto ) 1.0, Basophils (%) (Auto) 1.0, Sodium Level 139, Potassium Level 4.0, Chloride Level 105, Carbon Dioxide Level 24, Anion Gap 10, Blood Urea Nitrogen 14, Creatinine 1.0, Estimat Glomerular Filtration Rate > 60, Glucose Level 95, Calcium Level 8.5 Current Medications Medications (Trade) Dose Ordered Sig/Debbie Route PRN Reason Start Time Stop Time Status Last Admin Dose Admin Acetaminophen (Tylenol) 650 mg Q4H PRN ORAL Mild Pain (Pain Scale 1-3) 04/09/20 02:45 04/25/20 21:14 04/09/20 16:44 Acetaminophen (Tylenol) 650 mg Q4H PRN ORAL Temp >100.5 04/09/20 02:45 04/25/20 21:14 04/12/20 11:03 Acetaminophen/ Hydrocodone Bitart ([place] 10/325) 1 tab Q4H PRN ORAL severe pain 04/11/20 13:55 04/18/20 13:54 04/12/20 12:28 Acetaminophen/ Hydrocodone Bitart ([place] 5/325) 1 tab Q4H PRN ORAL Moderate Pain (Pain Scale 4-6) 04/09/20 12:30 04/16/20 12:29 04/11/20 11:27 Al Hydroxide/Mg Hydroxide (Mylanta II) 30 ml Q6H PRN ORAL dyspepsia 04/09/20 04:45 04/25/20 21:14 Amiodarone HCl (Cordarone) 200 mg DAILY ORAL 04/10/20 09:00 07/05/20 20:59 04/12/20 09:30 Bisacodyl (Dulcolax) 10 mg HSPRN PRN RECTAL Constipation 04/08/20 21:15 06/24/20 21:14 Chlorhexidine Gluconate (Laurie-Hex 2%) 1 applic DAILY@2000 TOPIC 04/08/20 20:00 06/26/20 19:59 04/11/20 20:49 Dextrose (Dextrose 50%) 25 ml Q30M PRN IV Hypoglycemia 04/08/20 17:45 06/24/20 21:14 Dextrose (Dextrose 50%) 50 ml Q30M PRN IV Hypoglycemia 04/08/20 17:45 06/24/20 21:14 Dextrose/ Electrolytes 1,000 ml @ 75 mls/hr [id number] IV 04/11/20 16:00 05/11/20 15:59 04/12/20 05:35 Diltiazem HCl (Cardizem) 90 mg EVERY 8 HOURS ORAL 04/09/20 06:00 05/04/20 14:59 04/12/20 13:44 Diphenhydramine HCl (Benadryl) 25 mg Q6H PRN ORAL Itching/Pruritis 04/09/20 05:37 04/25/20 17:36 Docusate Sodium (Colace) 100 mg Q12HR ORAL 04/09/20 09:00 04/29/20 08:59 04/11/20 20:49 Furosemide (Lasix) 40 mg EVERY 12 HOURS IV 04/09/20 21:00 05/09/20 20:59 04/12/20 09:31 Gabapentin (Neurontin) 300 mg BEDTIME ORAL 04/09/20 21:00 04/26/20 20:59 04/11/20 20:49 Hydralazine HCl (Apresoline) 100 mg Q8HR ORAL 04/11/20 22:00 07/10/20 21:59 04/12/20 13:44 Magnesium Hydroxide (Mom) 30 ml HSPRN PRN ORAL Constipation 04/09/20 01:30 05/08/20 17:38 Meropenem 1 gm/ Sodium Chloride 100 ml @ 200 mls/hr Q8HR IVPB 04/08/20 22:00 04/13/20 21:59 04/12/20 13:44 Metoclopramide HCl (Reglan) 10 mg Q6H PRN IVP Nausea & Vomiting 04/08/20 21:15 04/25/20 21:14 Micafungin Sodium 100 mg/Sodium Chloride 100 ml @ 100 mls/hr Q24H IVPB 04/10/20 20:00 04/13/20 19:59 04/11/20 20:50 Morphine Sulfate (Morphine Sulfate) 2 mg Q4H PRN IVP Breakthrough pain 5-10 04/09/20 12:30 04/15/20 17:42 04/11/20 21:17 Morphine Sulfate (Morphine Sulfate) 4 mg Q4H PRN IVP Severe Pain (Pain Scale 7-10) 04/08/20 17:43 04/15/20 17:42 04/12/20 13:45 Ondansetron HCl (Zofran) 4 mg Q6H PRN IVP Nausea & Vomiting 04/08/20 17:44 04/25/20 17:43 Pantoprazole (Protonix) 40 mg DAILY IVP 04/09/20 09:00 05/01/20 08:59 04/12/20 09:31 Polyethylene Glycol (Miralax) 17 gm HSPRN PRN ORAL Constipation 04/09/20 01:30 05/08/20 20:59 Polymyxin B Sulfate 300804 units/Dextrose 500 ml @ 500 mls/hr EVERY 12 HOURS IVPB 04/10/20 21:00 04/14/20 23:59 04/12/20 09:31 Rivaroxaban (Xarelto) 15 mg DAILY ORAL 04/09/20 09:00 06/29/20 08:59 04/10/20 12:09 Assessment/Plan Assessment/Plan IMPRESSION: 1. Hyperkalemia. Corrected 2. Tachycardia; resolved 3. Sepsis 4. Hypertension. 5. Seizure disorder. 6. Acute renal failure. 7. Respiratory failure; extubated 04/05/20 DISCUSSION: Correction of electrolytes Continue 2L/min O2 Desai/colostomy care Speech and swallow therapy Seven Yao Omar Syed MD Apr 12, 2020 14:14
--- NOTE | 2020-04-12 14:36 | Surgery Progress Note ---
Surgery Progress Note Subjective Symptoms: improved, tolerating diet, voiding well, passing flatus Objective Last 24 Hour Vital Signs Date Time Temp Pulse Resp B/P (MAP) Pulse Ox O2 Delivery O2 Flow Rate FiO2 04/12/20 13:44 137/56 04/12/20 13:44 107 137/56 04/12/20 12:45 98.4 04/12/20 12:30 101.5 04/12/20 12:00 107 04/12/20 12:00 101.7 107 19 137/56 (83) 99 04/12/20 11:33 101.5 04/12/20 09:00 Nasal Cannula 2.0 04/12/20 08:00 97.1 103 21 163/77 (105) 97 04/12/20 08:00 121 04/12/20 05:27 97 146/61 04/12/20 05:26 146/66 04/12/20 04:21 96.9 04/12/20 04:00 111 04/12/20 04:00 96.9 97 20 146/61 (89) 98 04/12/20 00:00 103 04/12/20 00:00 96.6 107 20 119/57 (77) 100 04/11/20 21:19 96 169/69 04/11/20 21:18 169/69 04/11/20 21:00 Nasal Cannula 2.0 04/11/20 20:00 94 04/11/20 20:00 98.9 96 20 169/69 (102) 98 04/11/20 16:00 103 04/11/20 16:00 98.3 63 20 152/84 (106) 98 I&O Intake and Output 04/11/20 04/12/20 19:00 07:00 Intake Total 2500 ml Output Total 2300 ml 2500 ml Balance 200 ml -2500 ml Intake Oral 500 ml Other 2000 ml Output Urine Total 2300 ml 2500 ml # Voids 2 Dressing: dry Wound: clean Cardiovascular: RSR Respiratory: clear, decreased breath sounds Abdomen: soft, non-tender, present bowel sounds Extremities: edema, no tenderness, no cyanosis Laboratory Tests Test 04/12/20 08:20 White Blood Count 7.2 K/UL (4.8-10.8) Red Blood Count 3.16 M/UL (4.20-5.40) L Hemoglobin 8.3 G/DL (12.0-16.0) L Hematocrit 27.5 % (37.0-47.0) L Mean Corpuscular Volume 87 FL (80-99) Mean Corpuscular Hemoglobin 26.3 PG (27.0-31.0) L Mean Corpuscular Hemoglobin Concent 30.3 G/DL (32.0-36.0) L Red Cell Distribution Width 17.6 % (11.6-14.8) H Platelet Count 376 K/UL (150-450) Mean Platelet Volume 6.8 FL (6.5-10.1) Neutrophils (%) (Auto) 71.4 % (45.0-75.0) Lymphocytes (%) (Auto) 14.6 % (20.0-45.0) L Monocytes (%) (Auto) 12.1 % (1.0-10.0) H Eosinophils (%) (Auto) 1.0 % (0.0-3.0) Basophils (%) (Auto) 1.0 % (0.0-2.0) Sodium Level 139 MMOL/L (136-145) Potassium Level 4.0 MMOL/L (3.5-5.1) Chloride Level 105 MMOL/L (98-107) Carbon Dioxide Level 24 MMOL/L (21-32) Anion Gap 10 mmol/L (5-15) Blood Urea Nitrogen 14 mg/dL (7-18) Creatinine 1.0 MG/DL (0.55-1.30) Estimat Glomerular Filtration Rate > 60 mL/min (>60) Glucose Level 95 MG/DL (74-106) Calcium Level 8.5 MG/DL (8.5-10.1) Plan Problems: (1) Atrial flutter (2) Hypertension (3) Acute encephalopathy (4) VENTURA (acute kidney injury) (5) Acute and chronic respiratory failure with hypoxia (6) Abscess (7) Fistula (8) Sciatica neuralgia (9) Uncontrolled seizures (10) Forgetfulness (11) Sacral decubitus ulcer Assessment & Plan: Patient identified to have a sacral deep tissue injury upon admission Currently intensive care unit on support Care plan initiated (12) Chronic back pain (13) Overdose of opiate or related narcotic (14) Cellulitis of left leg (15) Pericolonic abscess due to diverticulitis (16) Ventral incisional hernia Assessment & Plan: History of colon resection colostomy Ventral incisional hernia reducible No acute invention monitor parastomal hernia stable ostomy viable and functional no acute intervention planned (17) Chronic pain of both knees (18) Dehydration (19) Hyperkalemia (20) Sepsis Assessment & Plan: Patient admitted identified to have sepsis leukocytosis tachycardia abnormal labs lactic acidosis. Chest x-ray reviewed. Imaging noted. Micro noted. Intensive care unit on support appreciate ICU care Nutritional optimization IV fluids IV antibiotics as per infectious disease tube feeds once stable will follow with recommendations thank you for letting participate patient's care Urosepsis on abx extubated improving downgrade upper ext edema noted US on coag as per heme Patient reports not liking current diet texture of Moist Puree with Thin Liquids. Patient completed PO intake of solids (crackers), Patient's swallow is grossly functional. Plan: 1. Upgrade Diet Texture to Soft Solids and continue Thin Liquids; type/ supplements per RD. 2. Nursing to assist Patient with oral care BID. DAILY ESTIMATED NEEDS: Needs based on Pulmonary, sepsis, wound, VENTURA 75.8kg adj 20-30 kcals/kg 5815-7421 total kcals 1.25-1.5 g protein/kg 94-114 g total protein 25-30 mL/kg 3635-1229 total fluid mLs NUTRITION DIAGNOSIS: Swallowing difficulty r/t respiratory status as evidenced by pt orally intubated, on NGT feeds-> now extubated, pending NETWORK SUPPORT ANALYST eval. PO DIET RECOMMENDATIONS-->>> Cardiac diet / texture per NETWORK SUPPORT ANALYST ENTERAL NUTRITION RECOMMENDATIONS: VITAL AF 1.2 @55ml/hr x24 hrs to provide 1320ml, 1584 kcal, 99g pro, 1071ml free H2O - Maintain at goal as tolerated if not cleared for oral diet by NETWORK SUPPORT ANALYST - Flush per MD/ HOB over 30 degree ADDITIONAL RECOMMENDATIONS: 1) Maintain calibrated bed scale wts (248lbs vs 217lbs last adm) 2) Monitor renal fxn and lytes closely, need for renal formula Creat wnl; lytes low (K,phos,mg) 3) Wound healing: ZnSO4 220mg QD x 10 days+ Boris BID via NGT hold vit C until renal fxn improves 4) NISS w/ TF, h/o DM 5) Monitor po intake if cleared for oral diet; need for snacks/supplements Julian Iglesias Apr 12, 2020 14:36
[2020-04-12 16:00] VITALS: BP 121/73
--- NOTE | 2020-04-12 16:14 | NUR ---
SPEECH PATHOLOGY/COGNITIVE-LINGUISTIC EVALUATION: PATIENT CLEARED FOR ST INTERVENTION BY JOSSELYN MERINO. PATIENT UNABLE TO PARTICIPATE IN GI PROCEDURE TODAY DUE TO EMERGENCE OF TEMPERATURE. SHE CONTINUES TO TEST NEGATIVE FOR CO/VID. PROCEDURE HAS BEEN POSTPONED TO APRIL 13. SHE IS CURRENTLY ON THIN LIQUID DIET UNTIL MIDNIGHT. NO OVERT S/S OF ASPIRATION NOTED WITH P.O. TRIALS OF THIN LIQUIDS VIA STRAW. PATIENT ACHIEVED A SCORE OF 13 ON THE SL[facility]MS ([facility] MENTAL SCALE) WHICH IS CONSISTENT WITH A MOD/SEVERE COGNITIVE DECLINE. HER BASELINE COGNITIVE SKILLS ARE NOT NOTED IN HER HISTORY. SHE HAS EXPERIENCED GROUP HOME/CHRONIC PHYSICAL CHALLENGES, SHELTER HOME PLACEMENT AND MORE RECENTLY EXTENSVE ICU PLACEMENT FOR PULMONARY COMPLICATIONS. SHE STATES THAT HER UE WEAKENSS/INCOORDINATION IS OF RECENT ONSET (SINCE HOSITALIZATION). RECOMMENDATIONS: 1. ST INTERVENTION TO INCLUDE COGNITIVE RETRAINING TASKS WELL ONGOING MONITORING FOR DIET TOLERANCE 2. CONSIDER MRI FOR NEUROLOGIC ASSESSMENT IN LIGHT OF PATENT'S COGNITIVE DEFICITS AND UPPER EXTREMITY WEAKNESS/INCOORDINATION/LIMITED ROM 3. FAMILY/CAREGIVER EDUCATION. 4. ST RECOMMENDED AT NEXT LEVEL OF CARE TO ADDRESS COGNITIVE DEFICITS. THANK YOU FOR THIS REFERRAL.
--- NOTE | 2020-04-12 16:40 | General Progress Note ---
Assessment/Plan Problem List: (1) VENTURA (acute kidney injury) ICD Codes: N17.9 - Acute kidney failure, unspecified SNOMED: 4558851, 94745886 (2) Acute encephalopathy ICD Codes: G93.40 - Encephalopathy, unspecified SNOMED: 0858223 (3) Hypertension ICD Codes: I10 - Essential (primary) hypertension SNOMED: 27871162 (4) Atrial flutter ICD Codes: I48.92 - Unspecified atrial flutter SNOMED: 5756971 (5) Sacral decubitus ulcer ICD Codes: L89.159 - Pressure ulcer of sacral region, unspecified stage SNOMED: 710371107 (6) Chronic back pain ICD Codes: M54.9 - Dorsalgia, unspecified; G89.29 - Other chronic pain SNOMED: 705501743 (7) Sepsis ICD Codes: A41.9 - Sepsis, unspecified organism SNOMED: 93542855 (8) Hyperkalemia ICD Codes: E87.5 - Hyperkalemia SNOMED: 07654869 Status: stable Assessment/Plan: # fever, on broad antibiotics for multiple infections -Infectious disease following, appreciate recommendations -Blood culture, lactic acid, UA, chest x-ray, C. difficile if diarrhea #Acute Hypoxic Resp Failure- resolved - s/p extubation and ICU course - now on NC - CTM resp status - lasix per cards and renal - wean o2 #Afib w/ RVR, now in SR, off heparin gtt and on Xarelto - cont amiodarone , cardizem and hydralazine - Cardiology and EP following, appreciate recs - ischemic w/u and ablation prior to dc - DC AC given drop in Hb and + FOBT -> Trend CBC, transfuse for Hb < 7, GI consult (Dr Boyd), f/u rec's-> plan for EGD #Acute Renal Failure 2/2 ATN from Rhabo #Rhabdo - resolved - CTM - Nephrology following, appreciate recs #GI Bleed, Acute Anemia due to blood loss, Iron Deficient - GI following, appreciate recs - awaiting cardiology clearance for scope - fobt positive x 3 #Sepsis, HCAP/UTI, COVID negative , + ESBL; see above - Sputum w/ multiple MDR organisms, now requiring aggressive AB - Now Meropenem, Micagungin, Polymoxin, S/P Vancomyin, Cefepime, Flagyl #Seizure vs prolonged period of immobility # S/P Acute metabolic Encephalopathy #Hx of Colectomy w/ Colostomy DVT and GI ppx; xarelto , holding for bleeding Full Code Dispo 1-2d, pending rehab placement I spent 38min on this encounter w/ 19min on care/coordination and counseling Subjective Date patient seen: Apr 12, 2020 Time patient seen: 13:30 Allergies: Coded Allergies: LISINOPRIL (Verified Allergy, Unknown, Hives, 04/12/14) Subjective Fevers noted Patient denies any changes in breathing, denies shortness of breath, cough, sore throat, abdominal pain, nausea, vomiting. Mentions "stool blew up her ostomy" but is unaware if there is any change in consistency Objective Last 24 Hour Vital Signs Date Time Temp Pulse Resp B/P (MAP) Pulse Ox O2 Delivery O2 Flow Rate FiO2 04/12/20 13:44 137/56 04/12/20 13:44 107 137/56 04/12/20 12:45 98.4 04/12/20 12:30 101.5 04/12/20 12:00 107 04/12/20 12:00 101.7 107 19 137/56 (83) 99 04/12/20 11:33 101.5 04/12/20 09:00 Nasal Cannula 2.0 04/12/20 08:00 97.1 103 21 163/77 (105) 97 04/12/20 08:00 121 04/12/20 05:27 97 146/61 04/12/20 05:26 146/66 04/12/20 04:21 96.9 04/12/20 04:00 111 04/12/20 04:00 96.9 97 20 146/61 (89) 98 04/12/20 00:00 103 04/12/20 00:00 96.6 107 20 119/57 (77) 100 04/11/20 21:19 96 169/69 04/11/20 21:18 169/69 04/11/20 21:00 Nasal Cannula 2.0 04/11/20 20:00 94 04/11/20 20:00 98.9 96 20 169/69 (102) 98 Intake and Output 04/11/20 04/12/20 19:00 07:00 Intake Total 2500 ml Output Total 2300 ml 2500 ml Balance 200 ml -2500 ml Intake Oral 500 ml Other 2000 ml Output Urine Total 2300 ml 2500 ml # Voids 2 Laboratory Tests 04/12/20 08:20: White Blood Count 7.2, Red Blood Count 3.16L, Hemoglobin 8.3L, Hematocrit 27.5L , Mean Corpuscular Volume 87, Mean Corpuscular Hemoglobin 26.3L, Mean Corpuscular Hemoglobin Concent 30.3L, Red Cell Distribution Width 17.6H, Platelet Count 376, Mean Platelet Volume 6.8, Neutrophils (%) (Auto) 71.4, Lymphocytes (%) (Auto) 14.6L, Monocytes (%) (Auto) 12.1H, Eosinophils (%) (Auto ) 1.0, Basophils (%) (Auto) 1.0, Sodium Level 139, Potassium Level 4.0, Chloride Level 105, Carbon Dioxide Level 24, Anion Gap 10, Blood Urea Nitrogen 14, Creatinine 1.0, Estimat Glomerular Filtration Rate > 60, Glucose Level 95, Calcium Level 8.5 Height (Feet): 5 Height (Inches): 8.00 Weight (Pounds): 294 Objective GENERAL: No acute distress, appears comfortable, alert, obese, anasarca HEENT: NCAT, non-icteric eyes, pupils PERRLA Neck: No cervical lymphadenopathy, trachea midline CV: Regular rate and rhythm, no murmurs rubs or gallops RESP: Clear to auscultation bilaterally, no wheezes/rhonchi/crackles ABD: Ostomy noted with liquid hate colored stool, soft, non-distended, no TTP EXT: Normal muscle tone, +5/5 muscle strength, severe edema bilateral lower extremities NEURO: No obvious deficits, alert and oriented x3 Bell Tanner DO Apr 12, 2020 16:40
--- NOTE | 2020-04-12 19:43 | NUR ---
HAND-OFF: Report given to Jose/RN, Patient is in stable condition, Endorsed plan of care.
--- NOTE | 2020-04-12 19:45 | NUR ---
NURSE NOTES: Pt. received from JOSSELYN Elizabeth. Pt. AAOx4, on NC 2L, breathing even and unlabored, no complaints of pain at this time. IV right hand 22g intact and patent running D5 1/2 NS with 20 KCl at 75cc. Colostomy noted, intact. Desai intact and patent draining yellow urine well. Swelling noted bilateral upper extremities, elevated. Discussed pt. will be NPO at midnight for upcoming procedure, pt. acknowledged and verbalized understanding. Bed is low and locked, side rails x3 up and upper rails are padded, bed alarm active, and call light is in reach.
[2020-04-12 20:00] VITALS: BP 139/64
[2020-04-12] MEDS ORDERED: Vancomycin 1750mg/D5W 550ml IVPB ONE ×2 (20:00)
[2020-04-12 20:30] LABS: APPEARANCE,URINE CLEAR; BILIRUBIN, URINE NEGATIVE (NEGATIVE); COLOR,URINE PALE YELLOW; GLUCOSE, URINE (UA) NEGATIVE (NEGATIVE); KETONES,URINE NEGATIVE (NEGATIVE); LEUKOCYTE ESTERASE ,URINE NEGATIVE (NEGATIVE); NITRITE,URINE NEGATIVE (NEGATIVE); PH,URINE 6 (4.5-8.0); PROTEIN,URINE 2+ (NEGATIVE); UROBILINOGEN,URINE NORMAL MG/DL (0.0-1.0)
[2020-04-12] MEDS: Dyna-Hex 2% Top Sol 2oz TOPIC SCH (20:57)
--- NOTE | 2020-04-12 22:55 | Infectious Diseases Prog Note ---
Assessment/Plan Assessment/Plan ASSESSMENT AND PLAN: 1. esbl e.coli pna/acinetobacter pna, uti, sepsis, fevers, leukocytosis, a.flutter, respiratory failure, atx, dony, + ua, atx fungemia risk ? recurrent sepsis, persistent fevers - meropenem, polymyxin, micafungin, add vancomycin - surveillance cultures ordered, f/u chest x-ray - covid-19 testing negative x 3 - monitor labs - communicated with Dr. Tanner - d/w RN and patient 2. Respiratory failure, on vent. 3. Renal failure. 4. Diabetes. 5. Hypertension. 6. Diabetes and hypertension, treatment per primary care team. 7. Patient with history of altered mental status. 8. Seizure history. 9. Chronic neck pain. 10. Acute kidney injury and renal failure. 11. Allergies to lisinopril. 12. Social history is negative. 13. Family history is noncontributory. 14. MAR was noted. 15. Case was discussed with RN. 16. ICU care. 17. Skin care. 18. Continue treatment per primary consultants. Subjective Constitutional: Reports: fever HEENT: Denies: congestion Respiratory: Denies: shortness of breath Cardiovascular: Denies: chest pain Gastrointestinal/Abdominal: Denies: nausea, vomiting, diarrhea Genitourinary: Reports: other - + weiss Neurologic: Reports: weakness; Denies: headache Psychiatric: Reports: no symptoms Skin: Denies: rash Hematologic: Denies: bleeding Musculoskeletal: Denies: pain Allergies: Coded Allergies: LISINOPRIL (Verified Allergy, Unknown, Hives, 04/12/14) Objective Vital Signs Last 24 Hour Vital Signs Date Time Temp Pulse Resp B/P (MAP) Pulse Ox O2 Delivery O2 Flow Rate FiO2 04/12/20 21:52 139/64 04/12/20 21:51 92 139/64 04/12/20 16:00 89 04/12/20 16:00 97.1 86 19 121/73 (89) 97 04/12/20 13:44 137/56 04/12/20 13:44 107 137/56 04/12/20 12:45 98.4 04/12/20 12:30 101.5 04/12/20 12:00 107 04/12/20 12:00 101.7 107 19 137/56 (83) 99 04/12/20 11:33 101.5 04/12/20 09:00 Nasal Cannula 2.0 04/12/20 08:00 97.1 103 21 163/77 (105) 97 04/12/20 08:00 121 04/12/20 05:27 97 146/61 04/12/20 05:26 146/66 04/12/20 04:21 96.9 04/12/20 04:00 111 04/12/20 04:00 96.9 97 20 146/61 (89) 98 04/12/20 00:00 103 04/12/20 00:00 96.6 107 20 119/57 (77) 100 Height (Feet): 5 Height (Inches): 8.00 Weight (Pounds): 294 General Appearance: no acute distress HEENT: normocephalic, atraumatic, anicteric, mucous membranes moist, no JVD Respiratory/Chest: crackles/rales, rhonchi - bilaterally Cardiovascular: normal rate, regular rhythm, no gallop/murmur, no JVD Abdomen: normal bowel sounds, soft, non tender, no organomegaly, non distended Genitourinary: other - + weiss Extremities: no cyanosis Skin: no rash 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 There is some increased atelectasis at the right lung base. There is minimal left basilar atelectasis as well. The heart size is normal. Impression: Increased right basilar atelectasis. 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 Comparison films: 03/29/2020. FINDINGS: Endotracheal tube, NG tube and left PICC line remain in place. Vascularity is normal. There is worsening of bilateral infiltrates. Cardiac and mediastinal silhouette are within normal limits. CP angles are sharp. The bony thorax appear unremarkable. IMPRESSION: Worsening of bilateral infiltrates. Chest x-ray - 04/07/20 - IMPRESSION: Worsening left lung infiltrates with unchanged right lung infiltrates. Chest x-ray - 04/09/20 - Procedure: XRAY Chest 1v Procedure: XRAY Chest 1v Reason for study: Shortness of breath. Comparison films: 04/09/2020. FINDINGS: A single one view chest is obtained. Vascularity is normal. Bilateral infiltrates not significantly changed. Cardiac and mediastinal silhouette are within normal limits. There is decreased left effusion. The bony thorax appear unremarkable. IMPRESSION: No significant change bilateral infiltrates. Decreased left effusion. Chest x-ray - 04/11/20 - Procedure: XRAY Chest 1v Procedure: XRAY Chest 1v Reason for study: Shortness of breath. Comparison films: 04/09/2020. FINDINGS: A single one view chest is obtained. Vascularity is normal. Bilateral infiltrates not significantly changed. Cardiac and mediastinal silhouette are within normal limits. There is decreased left effusion. The bony thorax appear unremarkable. IMPRESSION: No significant change bilateral infiltrates. Decreased left effusion. Microbiology Date/Time Source Procedure Growth Status 04/03/20 04:55 Blood Blood Culture - Final NO GROWTH AFTER 5 DAYS Complete 04/12/20 10:12 Nasopharynx SARS-CoV-2 RdRp Gene Assay - Final Complete 04/03/20 04:00 Indwelling Cath Urine Culture - Final NO GROWTH AFTER 48 HOURS Complete 03/27/20 19:15 Rectum - Final NO CARBAPENEM-RESISTANT ENTEROBACTERI... Complete Microbiology Date/Time Source Procedure Growth Status 04/12/20 10:12 Nasopharynx SARS-CoV-2 RdRp Gene Assay - Final Complete Laboratory Tests Test 04/12/20 08:20 04/12/20 18:30 04/12/20 18:35 White Blood Count 7.2 K/UL (4.8-10.8) Red Blood Count 3.16 M/UL (4.20-5.40) L Hemoglobin 8.3 G/DL (12.0-16.0) L Hematocrit 27.5 % (37.0-47.0) L Mean Corpuscular Volume 87 FL (80-99) Mean Corpuscular Hemoglobin 26.3 PG (27.0-31.0) L Mean Corpuscular Hemoglobin Concent 30.3 G/DL (32.0-36.0) L Red Cell Distribution Width 17.6 % (11.6-14.8) H Platelet Count 376 K/UL (150-450) Mean Platelet Volume 6.8 FL (6.5-10.1) Neutrophils (%) (Auto) 71.4 % (45.0-75.0) Lymphocytes (%) (Auto) 14.6 % (20.0-45.0) L Monocytes (%) (Auto) 12.1 % (1.0-10.0) H Eosinophils (%) (Auto) 1.0 % (0.0-3.0) Basophils (%) (Auto) 1.0 % (0.0-2.0) Sodium Level 139 MMOL/L (136-145) Potassium Level 4.0 MMOL/L (3.5-5.1) Chloride Level 105 MMOL/L (98-107) Carbon Dioxide Level 24 MMOL/L (21-32) Anion Gap 10 mmol/L (5-15) Blood Urea Nitrogen 14 mg/dL (7-18) Creatinine 1.0 MG/DL (0.55-1.30) Estimat Glomerular Filtration Rate > 60 mL/min (>60) Glucose Level 95 MG/DL (74-106) Calcium Level 8.5 MG/DL (8.5-10.1) Urine Color Pale yellow Urine Appearance Clear Urine pH 6 (4.5-8.0) Urine Specific [place] 1.010 (1.005-1.035) Urine Protein 2+ (NEGATIVE) H Urine Glucose (UA) Negative (NEGATIVE) Urine Ketones Negative (NEGATIVE) Urine Blood Negative (NEGATIVE) Urine Nitrite Negative (NEGATIVE) Urine Bilirubin Negative (NEGATIVE) Urine Urobilinogen Normal MG/DL (0.0-1.0) Urine Leukocyte Esterase Negative (NEGATIVE) Urine RBC 0-2 /HPF (0 - 2) Urine WBC 0-2 /HPF (0 - 2) Urine Squamous Epithelial Cells Occasional /LPF Urine Amorphous Sediment Few /LPF (NONE) H Urine Bacteria Few /HPF (NONE) Lactic Acid Level 1.50 mmol/L (0.4-2.0) Current Medications Medications (Trade) Dose Ordered Sig/Debbie Route PRN Reason Start Time Stop Time Status Last Admin Dose Admin Acetaminophen (Tylenol) 650 mg Q4H PRN ORAL Mild Pain (Pain Scale 1-3) 04/09/20 02:45 04/25/20 21:14 04/09/20 16:44 Acetaminophen (Tylenol) 650 mg Q4H PRN ORAL Temp >100.5 04/09/20 02:45 04/25/20 21:14 04/12/20 11:03 Acetaminophen/ Hydrocodone Bitart ([place] 10/325) 1 tab Q4H PRN ORAL severe pain 04/11/20 13:55 04/18/20 13:54 04/12/20 21:53 Acetaminophen/ Hydrocodone Bitart ([place] 5/325) 1 tab Q4H PRN ORAL Moderate Pain (Pain Scale 4-6) 04/09/20 12:30 04/16/20 12:29 04/11/20 11:27 Al Hydroxide/Mg Hydroxide (Mylanta II) 30 ml Q6H PRN ORAL dyspepsia 04/09/20 04:45 04/25/20 21:14 Amiodarone HCl (Cordarone) 200 mg DAILY ORAL 04/10/20 09:00 07/05/20 20:59 04/12/20 09:30 Bisacodyl (Dulcolax) 10 mg HSPRN PRN RECTAL Constipation 04/08/20 21:15 06/24/20 21:14 Chlorhexidine Gluconate (Laurie-Hex 2%) 1 applic DAILY@2000 TOPIC 04/08/20 20:00 06/26/20 19:59 04/11/20 20:49 Dextrose (Dextrose 50%) 25 ml Q30M PRN IV Hypoglycemia 04/08/20 17:45 06/24/20 21:14 Dextrose (Dextrose 50%) 50 ml Q30M PRN IV Hypoglycemia 04/08/20 17:45 06/24/20 21:14 Dextrose/ Electrolytes 1,000 ml @ 75 mls/hr [id number] IV 04/11/20 16:00 05/11/20 15:59 04/12/20 20:56 Diltiazem HCl (Cardizem) 90 mg EVERY 8 HOURS ORAL 04/09/20 06:00 05/04/20 14:59 04/12/20 21:51 Diphenhydramine HCl (Benadryl) 25 mg Q6H PRN ORAL Itching/Pruritis 04/09/20 05:37 04/25/20 17:36 Docusate Sodium (Colace) 100 mg Q12HR ORAL 04/09/20 09:00 04/29/20 08:59 04/11/20 20:49 Furosemide (Lasix) 40 mg EVERY 12 HOURS IV 04/09/20 21:00 05/09/20 20:59 04/12/20 20:56 Gabapentin (Neurontin) 300 mg BEDTIME ORAL 04/09/20 21:00 04/26/20 20:59 04/12/20 20:56 Hydralazine HCl (Apresoline) 100 mg Q8HR ORAL 04/11/20 22:00 07/10/20 21:59 04/12/20 21:52 Magnesium Hydroxide (Mom) 30 ml HSPRN PRN ORAL Constipation 04/09/20 01:30 05/08/20 17:38 Meropenem 1 gm/ Sodium Chloride 100 ml @ 200 mls/hr Q8HR IVPB 04/08/20 22:00 04/13/20 21:59 04/12/20 21:52 Metoclopramide HCl (Reglan) 10 mg Q6H PRN IVP Nausea & Vomiting 04/08/20 21:15 04/25/20 21:14 Micafungin Sodium 100 mg/Sodium Chloride 100 ml @ 100 mls/hr Q24H IVPB 04/10/20 20:00 04/13/20 19:59 04/12/20 19:44 Morphine Sulfate (Morphine Sulfate) 2 mg Q4H PRN IVP Breakthrough pain 5-10 04/09/20 12:30 04/15/20 17:42 04/11/20 21:17 Morphine Sulfate (Morphine Sulfate) 4 mg Q4H PRN IVP Severe Pain (Pain Scale 7-10) 04/08/20 17:43 04/15/20 17:42 04/12/20 18:31 Ondansetron HCl (Zofran) 4 mg Q6H PRN IVP Nausea & Vomiting 04/08/20 17:44 04/25/20 17:43 Pantoprazole (Protonix) 40 mg DAILY IVP 04/09/20 09:00 05/01/20 08:59 04/12/20 09:31 Polyethylene Glycol (Miralax) 17 gm HSPRN PRN ORAL Constipation 04/09/20 01:30 05/08/20 20:59 Polymyxin B Sulfate 270898 units/Dextrose 500 ml @ 500 mls/hr EVERY 12 HOURS IVPB 04/10/20 21:00 04/14/20 23:59 04/12/20 21:52 Rivaroxaban (Xarelto) 15 mg DAILY ORAL 04/09/20 09:00 06/29/20 08:59 04/10/20 12:09 Vancomycin HCl (Vanco pharmacy to dose) 1 ea DAILY PRN MISC Per rx protocol 04/12/20 17:45 05/12/20 17:44 Vancomycin HCl 1 gm/Dextrose 275 ml @ 183.708 mls/hr Q12H IVPB 04/13/20 08:00 04/18/20 07:59 Jose Valdes MD Apr 12, 2020 22:55
[2020-04-13] VITALS (10 sets, daily range): BP systolic 100–167; BP diastolic 56–86
[2020-04-13] MEDS: HYDROcodone/Acetamin 10/325 tab ORAL PRN ×2 (04:12→08:21)
[2020-04-13] MEDS: Morphine Sulfate 4mg/ml Inj (IV USE ONLY) IVP PRN ×4 (04:52→23:13)
--- NOTE | 2020-04-13 05:29 | Pulmonology Progress Note ---
Subjective ROS Limited/Unobtainable: No Interval Events: Extubated 04/05/20; doing well on 2L/min O2 Constitutional: Reports: fever HEENT: Repors: no symptoms Respiratory: Reports: no symptoms Cardiovascular: Reports: no symptoms Gastrointestinal/Abdominal: Denies: nausea, vomiting, diarrhea Genitourinary: Reports: no symptoms Psychiatric: Reports: no symptoms Skin: Denies: rash Musculoskeletal: Denies: pain Allergies: Coded Allergies: LISINOPRIL (Verified Allergy, Unknown, Hives, 04/12/14) All Systems: reviewed and negative except above Objective Last 24 Hour Vital Signs Date Time Temp Pulse Resp B/P (MAP) Pulse Ox O2 Delivery O2 Flow Rate FiO2 04/13/20 04:00 90 04/13/20 00:00 98.8 77 19 100/64 (76) 97 04/13/20 00:00 96 04/12/20 21:52 139/64 04/12/20 21:51 92 139/64 04/12/20 21:00 Nasal Cannula 2.0 04/12/20 20:02 96 Nasal Cannula 2.0 28 04/12/20 20:00 98.1 92 20 139/64 (89) 98 04/12/20 20:00 93 04/12/20 16:00 89 04/12/20 16:00 97.1 86 19 121/73 (89) 97 04/12/20 13:44 137/56 04/12/20 13:44 107 137/56 04/12/20 12:45 98.4 04/12/20 12:30 101.5 04/12/20 12:00 107 04/12/20 12:00 101.7 107 19 137/56 (83) 99 04/12/20 11:33 101.5 04/12/20 09:00 Nasal Cannula 2.0 04/12/20 08:00 97.1 103 21 163/77 (105) 97 04/12/20 08:00 121 Intake and Output 04/12/20 04/13/20 19:00 07:00 Intake Total 960 ml 800 ml Output Total 600 ml Balance 360 ml 800 ml Intake Oral 960 ml IV Total 800 ml Output Urine Total 600 ml General Appearance: no acute distress HEENT: normocephalic Respiratory: chest wall non-tender, lungs clear Cardiovascular: normal peripheral pulses, normal rate Abdomen: normal bowel sounds Microbiology Date/Time Source Procedure Growth Status 04/11/20 05:30 Blood Blood Culture - Preliminary NO GROWTH AFTER 24 HOURS Resulted 04/11/20 05:25 Blood Blood Culture - Preliminary NO GROWTH AFTER 24 HOURS Resulted 04/12/20 10:12 Nasopharynx SARS-CoV-2 RdRp Gene Assay - Final Complete 04/12/20 18:30 Stool Clostridium difficile Toxin Assay - Final Complete 04/12/20 18:30 External Cath Urine Culture - Preliminary NO GROWTH Resulted Laboratory Tests 04/12/20 08:20: White Blood Count 7.2, Red Blood Count 3.16L, Hemoglobin 8.3L, Hematocrit 27.5L , Mean Corpuscular Volume 87, Mean Corpuscular Hemoglobin 26.3L, Mean Corpuscular Hemoglobin Concent 30.3L, Red Cell Distribution Width 17.6H, Platelet Count 376, Mean Platelet Volume 6.8, Neutrophils (%) (Auto) 71.4, Lymphocytes (%) (Auto) 14.6L, Monocytes (%) (Auto) 12.1H, Eosinophils (%) (Auto ) 1.0, Basophils (%) (Auto) 1.0, Sodium Level 139, Potassium Level 4.0, Chloride Level 105, Carbon Dioxide Level 24, Anion Gap 10, Blood Urea Nitrogen 14, Creatinine 1.0, Estimat Glomerular Filtration Rate > 60, Glucose Level 95, Calcium Level 8.5 04/12/20 18:30: Urine Color Pale yellow, Urine Appearance Clear, Urine pH 6, Urine Specific [place] 1.010, Urine Protein 2+H, Urine Glucose (UA) Negative, Urine Ketones Negative, Urine Blood Negative, Urine Nitrite Negative, Urine Bilirubin Negative , Urine Urobilinogen Normal, Urine Leukocyte Esterase Negative, Urine RBC 0-2, Urine WBC 0-2, Urine Squamous Epithelial Cells Occasional, Urine Amorphous Sediment FewH, Urine Bacteria Few 04/12/20 18:35: Lactic Acid Level 1.50 Current Medications Medications (Trade) Dose Ordered Sig/Debbie Route PRN Reason Start Time Stop Time Status Last Admin Dose Admin Acetaminophen (Tylenol) 650 mg Q4H PRN ORAL Mild Pain (Pain Scale 1-3) 04/09/20 02:45 04/25/20 21:14 04/09/20 16:44 Acetaminophen (Tylenol) 650 mg Q4H PRN ORAL Temp >100.5 04/09/20 02:45 04/25/20 21:14 04/12/20 11:03 Acetaminophen/ Hydrocodone Bitart ([place] 10/325) 1 tab Q4H PRN ORAL severe pain 04/11/20 13:55 04/18/20 13:54 04/13/20 04:12 Acetaminophen/ Hydrocodone Bitart ([place] 5/325) 1 tab Q4H PRN ORAL Moderate Pain (Pain Scale 4-6) 04/09/20 12:30 04/16/20 12:29 04/11/20 11:27 Al Hydroxide/Mg Hydroxide (Mylanta II) 30 ml Q6H PRN ORAL dyspepsia 04/09/20 04:45 04/25/20 21:14 Amiodarone HCl (Cordarone) 200 mg DAILY ORAL 04/10/20 09:00 07/05/20 20:59 04/12/20 09:30 Bisacodyl (Dulcolax) 10 mg HSPRN PRN RECTAL Constipation 04/08/20 21:15 06/24/20 21:14 Chlorhexidine Gluconate (Laurie-Hex 2%) 1 applic DAILY@2000 TOPIC 04/08/20 20:00 06/26/20 19:59 04/11/20 20:49 Dextrose (Dextrose 50%) 25 ml Q30M PRN IV Hypoglycemia 04/08/20 17:45 06/24/20 21:14 Dextrose (Dextrose 50%) 50 ml Q30M PRN IV Hypoglycemia 04/08/20 17:45 06/24/20 21:14 Dextrose/ Electrolytes 1,000 ml @ 75 mls/hr [id number] IV 04/11/20 16:00 05/11/20 15:59 04/12/20 20:56 Diltiazem HCl (Cardizem) 90 mg EVERY 8 HOURS ORAL 04/09/20 06:00 05/04/20 14:59 04/12/20 21:51 Diphenhydramine HCl (Benadryl) 25 mg Q6H PRN ORAL Itching/Pruritis 04/09/20 05:37 04/25/20 17:36 Docusate Sodium (Colace) 100 mg Q12HR ORAL 04/09/20 09:00 04/29/20 08:59 04/11/20 20:49 Furosemide (Lasix) 40 mg EVERY 12 HOURS IV 04/09/20 21:00 05/09/20 20:59 04/12/20 20:56 Gabapentin (Neurontin) 300 mg BEDTIME ORAL 04/09/20 21:00 04/26/20 20:59 04/12/20 20:56 Hydralazine HCl (Apresoline) 100 mg Q8HR ORAL 04/11/20 22:00 07/10/20 21:59 04/12/20 21:52 Magnesium Hydroxide (Mom) 30 ml HSPRN PRN ORAL Constipation 04/09/20 01:30 05/08/20 17:38 Meropenem 1 gm/ Sodium Chloride 100 ml @ 200 mls/hr Q8HR IVPB 04/13/20 06:00 04/18/20 05:59 Metoclopramide HCl (Reglan) 10 mg Q6H PRN IVP Nausea & Vomiting 04/08/20 21:15 04/25/20 21:14 Micafungin Sodium 100 mg/Sodium Chloride 100 ml @ 100 mls/hr Q24H IVPB 04/13/20 20:00 04/16/20 19:59 Morphine Sulfate (Morphine Sulfate) 2 mg Q4H PRN IVP Breakthrough pain 5-10 04/09/20 12:30 04/15/20 17:42 04/11/20 21:17 Morphine Sulfate (Morphine Sulfate) 4 mg Q4H PRN IVP Severe Pain (Pain Scale 7-10) 04/08/20 17:43 04/15/20 17:42 04/13/20 04:52 Ondansetron HCl (Zofran) 4 mg Q6H PRN IVP Nausea & Vomiting 04/08/20 17:44 04/25/20 17:43 Pantoprazole (Protonix) 40 mg DAILY IVP 04/09/20 09:00 05/01/20 08:59 04/12/20 09:31 Polyethylene Glycol (Miralax) 17 gm HSPRN PRN ORAL Constipation 04/09/20 01:30 05/08/20 20:59 Polymyxin B Sulfate 249461 units/Dextrose 500 ml @ 500 mls/hr EVERY 12 HOURS IVPB 04/13/20 09:00 04/17/20 11:59 Rivaroxaban (Xarelto) 15 mg DAILY ORAL 04/09/20 09:00 06/29/20 08:59 04/10/20 12:09 Vancomycin HCl (Vanco pharmacy to dose) 1 ea DAILY PRN MISC Per rx protocol 04/12/20 17:45 05/12/20 17:44 Vancomycin HCl 1 gm/Dextrose 275 ml @ 183.708 mls/hr Q12H IVPB 04/13/20 08:00 04/18/20 07:59 Assessment/Plan Assessment/Plan IMPRESSION: 1. Hyperkalemia. Corrected 2. Tachycardia; resolved 3. Sepsis 4. Hypertension. 5. Seizure disorder. 6. Acute renal failure. 7. Respiratory failure; extubated 04/05/20 DISCUSSION: Correction of electrolytes Continue 2L/min O2 Desai/colostomy care Speech and swallow therapy Seven Yao Omar Syed MD Apr 13, 2020 05:29
[2020-04-13] MEDS: dilTIAZem HCl 90mg tab ORAL SCH ×3 (05:56→21:11)
[2020-04-13] MEDS: HydrALAZINE 50mg tab ORAL SCH ×3 (05:56→21:10)
[2020-04-13 06:55] LABS: HEMATOCRIT 23.4 % (37.0-47.0); MEAN CORPUSCULAR VOLUME 87 FL (80-99); PLATELET COUNT 335 K/UL (150-450); RED BLOOD COUNT 2.68 M/UL (4.20-5.40); RED CELL DISTRIBUTION WIDTH 16.9 % (11.6-14.8); WHITE BLOOD COUNT 4.6 K/UL (4.8-10.8)
[2020-04-13 07:05] LABS: ANION GAP 7 mmol/L (5-15); BLOOD UREA NITROGEN 10 mg/dL (7-18); CALCIUM 8.4 MG/DL (8.5-10.1); CARBON DIOXIDE 28 MMOL/L (21-32); CHLORIDE 105 MMOL/L (98-107); POTASSIUM 3.4 MMOL/L (3.5-5.1); SODIUM 140 MMOL/L (136-145)
[2020-04-13 07:13] LABS: ALANINE AMINOTRANSFERASE 6 U/L (12-78); ALBUMIN 1.3 G/DL (3.4-5.0); ALKALINE PHOSPHATASE 71 U/L (46-116); ASPARTATE AMINO TRANSFERASE 19 U/L (15-37); BILIRUBIN,DIRECT 0.2 MG/DL (0.0-0.3); BILIRUBIN,TOTAL 0.2 MG/DL (0.2-1.0)
--- NOTE | 2020-04-13 07:28 | NUR ---
Received patient in bed awake. O2 via NC in place, no SOB or acute distress. IV line intact. FC intact, draining yellow colored urine. Colostomy bag intact. HOB elevated. Bed locked in lowest position. Call light within reach. Patient ate jello, surgery and anesthesia aware, said ok as long as patient did not eat oatmeal. Reminded patient to be on NPO, verbalized understanding. Will continue plan of care.
--- NOTE | 2020-04-13 07:32 | NUR ---
HAND-OFF: Report given to JOSSELYN Webb.
[2020-04-13] MEDS: Amiodarone 200mg tab ORAL SCH (08:20)
[2020-04-13] MEDS: Vancomycin 1 GM in D5W 275 ML IVPB SCH ×2 (08:20→21:10)
[2020-04-13] MEDS: Pantoprazole Inj IVP SCH (08:21)
[2020-04-13] MEDS: Docusate 100mg/10ml Liq ORAL SCH ×3 (08:21→21:10)
[2020-04-13] MEDS: Xarelto 15mg tab ORAL SCH (08:22)
[2020-04-13] MEDS ORDERED: Polymyxin B Sulfate 500,000 UNITS in D5W 500ml 500 ML IVPB SCH (09:00)
--- NOTE | 2020-04-13 09:14 | General Progress Note ---
Assessment/Plan Problem List: (1) VENTURA (acute kidney injury) ICD Codes: N17.9 - Acute kidney failure, unspecified SNOMED: 7163102, 79911005 (2) Acute encephalopathy ICD Codes: G93.40 - Encephalopathy, unspecified SNOMED: 8819873 (3) Hypertension ICD Codes: I10 - Essential (primary) hypertension SNOMED: 41371800 (4) Atrial flutter ICD Codes: I48.92 - Unspecified atrial flutter SNOMED: 2879762 (5) Sacral decubitus ulcer ICD Codes: L89.159 - Pressure ulcer of sacral region, unspecified stage SNOMED: 810431512 (6) Chronic back pain ICD Codes: M54.9 - Dorsalgia, unspecified; G89.29 - Other chronic pain SNOMED: 984353982 (7) Sepsis ICD Codes: A41.9 - Sepsis, unspecified organism SNOMED: 75218567 (8) Hyperkalemia ICD Codes: E87.5 - Hyperkalemia SNOMED: 49605994 Status: stable Assessment/Plan: # fever, on broad antibiotics for multiple infections resolved after addition of vancomycin 04/12- -Infectious disease following, appreciate recommendations -Follow-up blood culture, - 0 lactic acid, - UA, neg - chest x-ray stable - C. difficile if diarrhea.: Negative #Acute Hypoxic Resp Failure - s/p extubation and ICU course - now on MD - CT resp status - lasix per cards and renal - wean o2 #Afib w/ RVR, now in SR, off heparin gtt and on Xarelto - cont amiodarone , cardizem and hydralazine - Cardiology and EP following, appreciate recs - ischemic w/u and ablation prior to dc - DC AC given drop in Hb and + FOBT -> Trend CBC, transfuse for Hb < 7, GI consult (Dr Boyd), f/u rec's-> plan for EGD #Acute Renal Failure 2/2 ATN from Rhabo #Rhabdo - resolved - CTM - Nephrology following, appreciate recs #GI Bleed, Acute Anemia due to blood loss, Iron Deficient - GI following, appreciate recs - awaiting cardiology clearance for scope - fobt positive x 3 #Sepsis, HCAP/UTI, COVID negative , + ESBL; see above - Sputum w/ multiple MDR organisms, now requiring aggressive AB - Now Meropenem, Micagungin, Polymoxin, S/P Vancomyin, Cefepime, Flagyl #Seizure vs prolonged period of immobility # S/P Acute metabolic Encephalopathy #Hx of Colectomy w/ Colostomy DVT and GI ppx; xarelto , holding for bleeding Full Code Dispo 1-2d, pending rehab placement I spent 38min on this encounter w/ 19min on care/coordination and counseling I spent an additional 40 minutes on reviewing patient's chart from admission. This includes review of imaging, labs, notes, and interpretation of results. Subjective Date patient seen: Apr 13, 2020 Time patient seen: 08:30 Allergies: Coded Allergies: LISINOPRIL (Verified Allergy, Unknown, Hives, 04/12/14) Subjective Fevers resolved Chronic cough stable No signs of bleeding Objective Last 24 Hour Vital Signs Date Time Temp Pulse Resp B/P (MAP) Pulse Ox O2 Delivery O2 Flow Rate FiO2 04/13/20 08:00 96.6 71 20 146/60 (88) 98 04/13/20 05:56 144/68 04/13/20 05:56 98 144/68 04/13/20 04:00 90 04/13/20 04:00 97.9 98 19 144/68 (93) 98 04/13/20 00:00 98.8 77 19 100/64 (76) 97 04/13/20 00:00 96 04/12/20 21:52 139/64 04/12/20 21:51 92 139/64 04/12/20 21:00 Nasal Cannula 2.0 04/12/20 20:02 96 Nasal Cannula 2.0 28 04/12/20 20:00 98.1 92 20 139/64 (89) 98 04/12/20 20:00 93 04/12/20 16:00 89 04/12/20 16:00 97.1 86 19 121/73 (89) 97 04/12/20 13:44 137/56 04/12/20 13:44 107 137/56 04/12/20 12:45 98.4 04/12/20 12:30 101.5 04/12/20 12:00 107 04/12/20 12:00 101.7 107 19 137/56 (83) 99 04/12/20 11:33 101.5 Intake and Output 04/12/20 04/13/20 19:00 07:00 Intake Total 960 ml 1025 ml Output Total 600 ml 2800 ml Balance 360 ml -1775 ml Intake Oral 960 ml IV Total 1025 ml Output Urine Total 600 ml 2800 ml Laboratory Tests 04/12/20 18:30: Urine Color Pale yellow, Urine Appearance Clear, Urine pH 6, Urine Specific [place] 1.010, Urine Protein 2+H, Urine Glucose (UA) Negative, Urine Ketones Negative, Urine Blood Negative, Urine Nitrite Negative, Urine Bilirubin Negative , Urine Urobilinogen Normal, Urine Leukocyte Esterase Negative, Urine RBC 0-2, Urine WBC 0-2, Urine Squamous Epithelial Cells Occasional, Urine Amorphous Sediment FewH, Urine Bacteria Few 04/12/20 18:35: Lactic Acid Level 1.50 04/13/20 06:05: White Blood Count 4.6L, Red Blood Count 2.68L, Hemoglobin 7.0L, Hematocrit 23.4L , Mean Corpuscular Volume 87, Mean Corpuscular Hemoglobin 26.1L, Mean Corpuscular Hemoglobin Concent 29.9L, Red Cell Distribution Width 16.9H, Platelet Count 335, Mean Platelet Volume 7.2, Neutrophils (%) (Auto) , Lymphocytes (%) (Auto) , Monocytes (%) (Auto) , Eosinophils (%) (Auto) , Basophils (%) (Auto) , Differential Total Cells Counted 100, Neutrophils % ( Manual) 73, Lymphocytes % (Manual) 19L, Monocytes % (Manual) 7, Eosinophils % ( Manual) 0, Basophils % (Manual) 1, Band Neutrophils 0, Platelet Estimate Adequate, Platelet Morphology Normal, Anisocytosis 1+, Sodium Level 140, Potassium Level 3.4L, Chloride Level 105, Carbon Dioxide Level 28, Anion Gap 7, Blood Urea Nitrogen 10, Creatinine 1.0, Estimat Glomerular Filtration Rate > 60 , Glucose Level 89, Calcium Level 8.4L, Total Bilirubin 0.2, Direct Bilirubin 0.2, Aspartate Amino Transf (AST/SGOT) 19, Alanine Aminotransferase (ALT/SGPT) 6L, Alkaline Phosphatase 71, Total Protein 5.0L, Albumin 1.3L Height (Feet): 5 Height (Inches): 8.00 Weight (Pounds): 294 Objective GENERAL: No acute distress, appears comfortable, alert, obese, anasarca HEENT: NCAT, non-icteric eyes, pupils PERRLA Neck: No cervical lymphadenopathy, trachea midline CV: Regular rate and rhythm, no murmurs rubs or gallops RESP: Clear to auscultation bilaterally, no wheezes/rhonchi/crackles ABD: Ostomy noted with liquid hate colored stool, soft, non-distended, no TTP EXT: Normal muscle tone, +5/5 muscle strength, severe edema bilateral lower extremities NEURO: No obvious deficits, alert and oriented x3 Bell Tanner DO Apr 13, 2020 09:14
--- NOTE | 2020-04-13 09:15 | NUR ---
RADIOLOGY DEPT., CHEST X-RAY DONE.-P.DYE
--- NOTE | 2020-04-13 09:26 | NUR ---
CASE MANAGEMENT:REVIEW 04/13/20 SI;FEVERS . + DVT . GRAHAM PNA~ SLIGHT IMPROVEMENT . SPUTUM + ECOLI S/P EXTUBATION 04/05 96.6 71 20 146/60 98% 2L NC WBC 4.6 H/H 7.0/23.4 K+3.4 CA+8.4 ALB 1.3 IS: EGD/COLONOSCOPY WITH POSSIBLE BIOPSY IV D5 @75ML/HR IV VANCOMYCIN BID IV MEROPENEM TID IV LASIX BID XARELTO NGT QD NEURONTIN PO QHS AMIODARONE NGT BID HYDRALAZINE PO TID CARDIZEM PO TID IV PROTONIX QD NORCO PO Q4/PRN \: 3E MED SURG UNIT DCP: HOME WHEN STABLE PLAN: LEXISCAN~ON HOLD DECREASE UPPER STRENGTH MOBILITY ENCOURAGE UPPER BODY EXERCISES TO IMPROVE STRENGTH MONITOR HH DECEASING PATIENT UNABLE TO COMPLETE BOWEL PREP THURSDAY START ON VANCOMYCIN
[2020-04-13] MEDS: Morphine Sulfate 2mg/ml Inj(IV/IM USE ONLY) IVP PRN (09:30)
--- NOTE | 2020-04-13 09:34 | Nephrology Progress Note ---
Assessment/Plan Plan #VENTURA due to ATN in the setting of rhabdo- on CKD #hyperkalemia #Rhabdo #UTI sepsis #Lactic acidsis #AMS - toxic metabolic encephalopathy #Hypoxemic resp failure #afib with RVR #HLD #Obesity - lasix 40 IV BID - monitor UOP - replete lytes - monitor K,bmp - plan for EGD/colo - weiss placed - strict I&Os - cardiology eval - amiodarone, diltiazem - s/p IV iron - monitor hemoglobin - norco dose adjuested - ID consult- - antibiotics per ID - follow cx - monitor BMP, mag and phos daily - PT 30 minutes of critical care time- greater than 50% on care coordination and counseling Subjective ROS Limited/Unobtainable: No Constitutional: Reports: weakness HEENT: Denies: no symptoms, eye pain, blurred vision, tearing, double vision, ear pain, ear discharge, nose pain, nose congestion, throat pain, throat swelling, mouth pain, mouth swelling, other Genitourinary: Denies: no symptoms, burning, discharge, frequency, flank pain, hematuria, incontinence, pain, urgency, other Neurologic/Psychiatric: Denies: no symptoms, anxiety, depressed, emotional problems, headache, numbness, paresthesia, pre-existing deficit, seizure, tingling, tremors, weakness, other Subjective Cr stable very weak evaluated by GI s/p colo and EGD complains of leg pain increased [place] dose Objective Objective Last 24 Hour Vital Signs Date Time Temp Pulse Resp B/P (MAP) Pulse Ox O2 Delivery O2 Flow Rate FiO2 04/13/20 08:00 96.6 71 20 146/60 (88) 98 04/13/20 05:56 144/68 04/13/20 05:56 98 144/68 04/13/20 04:00 90 04/13/20 04:00 97.9 98 19 144/68 (93) 98 04/13/20 00:00 98.8 77 19 100/64 (76) 97 04/13/20 00:00 96 04/12/20 21:52 139/64 04/12/20 21:51 92 139/64 04/12/20 21:00 Nasal Cannula 2.0 04/12/20 20:02 96 Nasal Cannula 2.0 28 04/12/20 20:00 98.1 92 20 139/64 (89) 98 04/12/20 20:00 93 04/12/20 16:00 89 04/12/20 16:00 97.1 86 19 121/73 (89) 97 04/12/20 13:44 137/56 04/12/20 13:44 107 137/56 04/12/20 12:45 98.4 04/12/20 12:30 101.5 04/12/20 12:00 107 04/12/20 12:00 101.7 107 19 137/56 (83) 99 04/12/20 11:33 101.5 Intake and Output 04/12/20 04/13/20 19:00 07:00 Intake Total 960 ml 1025 ml Output Total 600 ml 2800 ml Balance 360 ml -1775 ml Intake Oral 960 ml IV Total 1025 ml Output Urine Total 600 ml 2800 ml Laboratory Tests 04/12/20 18:30: Urine Color Pale yellow, Urine Appearance Clear, Urine pH 6, Urine Specific [place] 1.010, Urine Protein 2+H, Urine Glucose (UA) Negative, Urine Ketones Negative, Urine Blood Negative, Urine Nitrite Negative, Urine Bilirubin Negative , Urine Urobilinogen Normal, Urine Leukocyte Esterase Negative, Urine RBC 0-2, Urine WBC 0-2, Urine Squamous Epithelial Cells Occasional, Urine Amorphous Sediment FewH, Urine Bacteria Few 04/12/20 18:35: Lactic Acid Level 1.50 04/13/20 06:05: White Blood Count 4.6L, Red Blood Count 2.68L, Hemoglobin 7.0L, Hematocrit 23.4L , Mean Corpuscular Volume 87, Mean Corpuscular Hemoglobin 26.1L, Mean Corpuscular Hemoglobin Concent 29.9L, Red Cell Distribution Width 16.9H, Platelet Count 335, Mean Platelet Volume 7.2, Neutrophils (%) (Auto) , Lymphocytes (%) (Auto) , Monocytes (%) (Auto) , Eosinophils (%) (Auto) , Basophils (%) (Auto) , Differential Total Cells Counted 100, Neutrophils % ( Manual) 73, Lymphocytes % (Manual) 19L, Monocytes % (Manual) 7, Eosinophils % ( Manual) 0, Basophils % (Manual) 1, Band Neutrophils 0, Platelet Estimate Adequate, Platelet Morphology Normal, Anisocytosis 1+, Sodium Level 140, Potassium Level 3.4L, Chloride Level 105, Carbon Dioxide Level 28, Anion Gap 7, Blood Urea Nitrogen 10, Creatinine 1.0, Estimat Glomerular Filtration Rate > 60 , Glucose Level 89, Calcium Level 8.4L, Total Bilirubin 0.2, Direct Bilirubin 0.2, Aspartate Amino Transf (AST/SGOT) 19, Alanine Aminotransferase (ALT/SGPT) 6L, Alkaline Phosphatase 71, Total Protein 5.0L, Albumin 1.3L Height (Feet): 5 Height (Inches): 8.00 Weight (Pounds): 294 Objective General Appearance: no distress Lines, tubes and drains: peripheral HEENT: normocephalic, atraumatic Neck: non-tender, normal alignment, supple Respiratory/Chest: lungs clear Cardiovascular/Chest: normal peripheral pulses, tachycardia, irregularly irregular Abdomen: soft Skin Exam: normal pigmentation Neurologic: nonfocal Venkat Montes M.D. Apr 13, 2020 09:34
--- NOTE | 2020-04-13 10:11 | NUR ---
*-*DISCHARGE PLANNED*-* PATIENT HAS BEEN ACCEPTED TO: [facility] P: [phone] S/W [facility], STATED WILL ACCEPT PATIENT UPON DISCHARGE. ROOM#53.C SKILLED
--- NOTE | 2020-04-13 10:23 | NUR ---
NURSE NOTES: IV line leaking but still in the vein, patient hardstick, Dr Tanner aware, said she will review ultrasound result in regards to IV access.
[2020-04-13] MEDS: Polymyxin B Sulfate 500,000 UNITS in D5W 500ml 550 ML IVPB SCH ×2 (10:39→21:00)
--- NOTE | 2020-04-13 11:01 | Hematology/Onc Progress Note ---
Assessment/Plan Assessment/Plan Assessment and Recs # Anemia of iron deficiency, with a ferritin that is less than 50 recentrly --> Anemia workup has been ordered, rule out gi bleed --> recheck ferritin, occult was + --> No evidence of hemolysis is noted, peripheral smear has been reviewed. --> Hgb goal >7. Transfuse prn. --> IRon IV x 5 days started 04/06 as ferritin is low --> Medications have been reviewed --> low threshold for gi evaluation in case has occult + --> currently is on XARELTO --> as per Terrance, may need to hold if h /h lower --> hgb trend 8.2-->7.2->8 --> GI eval prn # Hypercoagulable disorder is on xarelto for afib with rvr --> reviewed cards recs --> if any further bleed, consider hold xarelto --> have dw Pcp --> monitor h/h # Leukocytoisis with gram neg pna, uti, sepsis, fevers, leukocytosis, a.flutter , respiratory failure, atx, dony, + ua, atx --> covid is neg --> abx svetlana and micafungin/polymyx=->hola/svetlana --> as per id recs # Respiratory failure, on vent initially --> now extubated # Renal failure. --> improved # Diabetes. --> endo prn # Hypertension. --> per cards # Diabetes and hypertension, treatment per primary care team. --> a1c goal <8, acchuchecks qac and qhs # Patient with history of altered mental status. --> metabolic encephalopathy # Seizure history. # Chronic neck pain. # Lactic acidsis # HLD # Obesity # Dvt ppx xarelto Appreciate consultation and vanessa RN Subjective Constitutional: Denies: no symptoms, chills, fever, malaise, weakness, other HEENT: Denies: no symptoms, eye pain, blurred vision, tearing, double vision, ear pain, ear discharge, nose pain, nose congestion, throat pain, throat swelling, mouth pain, mouth swelling, other Respiratory: Denies: no symptoms, cough, shortness of breath, SOB with excertion, SOB at rest, sputum, wheezing, other Genitourinary: Denies: no symptoms, burning, discharge, frequency, flank pain, hematuria, incontinence, pain, urgency, other Neurologic/Psychiatric: Denies: no symptoms, anxiety, depressed, emotional problems, headache, numbness, paresthesia, pre-existing deficit, seizure, tingling, tremors, weakness, other Endocrine: Denies: no symptoms, excessive sweating, flushing, intolerance to cold, intolerance to heat, increased hunger, increased thirst, increased urine, unexplained weight gain, unexplained weight loss, other Allergies: Coded Allergies: LISINOPRIL (Verified Allergy, Unknown, Hives, 04/12/14) Subjective 04/08 labs have been reviewed, no night sweats, eating overnight, labs pending 04/09 awake, alert with picc, labs from am pending, no major events 04/10 no events, vanessa rn, duplex study reviewed, major vessels show no dvt 04/11 labs reviewed, laying in bed, no complaints, vanessa castañeda, hgb 8 04/12 no events, no bleeding, meds reviewed, no night sweats 04/13 labs reviewed, no bleeding, meds reviewed, no night sweats Objective Objective Current Medications Medications (Trade) Dose Ordered Sig/Debbie Route PRN Reason Start Time Stop Time Status Last Admin Dose Admin Acetaminophen (Tylenol) 650 mg Q4H PRN ORAL Mild Pain (Pain Scale 1-3) 04/09/20 02:45 04/25/20 21:14 04/09/20 16:44 Acetaminophen (Tylenol) 650 mg Q4H PRN ORAL Temp >100.5 04/09/20 02:45 04/25/20 21:14 04/12/20 11:03 Acetaminophen/ Hydrocodone Bitart ([place] 10/325) 1 tab Q4H PRN ORAL severe pain 04/11/20 13:55 04/18/20 13:54 04/13/20 08:21 Acetaminophen/ Hydrocodone Bitart ([place] 5/325) 1 tab Q4H PRN ORAL Moderate Pain (Pain Scale 4-6) 04/09/20 12:30 04/16/20 12:29 04/11/20 11:27 Al Hydroxide/Mg Hydroxide (Mylanta II) 30 ml Q6H PRN ORAL dyspepsia 04/09/20 04:45 04/25/20 21:14 Amiodarone HCl (Cordarone) 200 mg DAILY ORAL 04/10/20 09:00 07/05/20 20:59 04/13/20 08:20 Bisacodyl (Dulcolax) 10 mg HSPRN PRN RECTAL Constipation 04/08/20 21:15 06/24/20 21:14 Chlorhexidine Gluconate (Laurie-Hex 2%) 1 applic DAILY@2000 TOPIC 04/08/20 20:00 06/26/20 19:59 04/11/20 20:49 Dextrose (Dextrose 50%) 25 ml Q30M PRN IV Hypoglycemia 04/08/20 17:45 06/24/20 21:14 Dextrose (Dextrose 50%) 50 ml Q30M PRN IV Hypoglycemia 04/08/20 17:45 06/24/20 21:14 Dextrose/ Electrolytes 1,000 ml @ 75 mls/hr [id number] IV 04/11/20 16:00 05/11/20 15:59 04/12/20 20:56 Diltiazem HCl (Cardizem) 90 mg EVERY 8 HOURS ORAL 04/09/20 06:00 05/04/20 14:59 04/13/20 05:56 Diphenhydramine HCl (Benadryl) 25 mg Q6H PRN ORAL Itching/Pruritis 04/09/20 05:37 04/25/20 17:36 Docusate Sodium (Colace) 100 mg Q12HR ORAL 04/09/20 09:00 04/29/20 08:59 04/11/20 20:49 Furosemide (Lasix) 40 mg EVERY 12 HOURS IV 04/09/20 21:00 05/09/20 20:59 04/13/20 08:21 Gabapentin (Neurontin) 300 mg BEDTIME ORAL 04/09/20 21:00 04/26/20 20:59 04/12/20 20:56 Hydralazine HCl (Apresoline) 100 mg Q8HR ORAL 04/11/20 22:00 07/10/20 21:59 04/13/20 05:56 Magnesium Hydroxide (Mom) 30 ml HSPRN PRN ORAL Constipation 04/09/20 01:30 05/08/20 17:38 Meropenem 1 gm/ Sodium Chloride 100 ml @ 200 mls/hr Q8HR IVPB 04/13/20 06:00 04/18/20 05:59 04/13/20 05:55 Metoclopramide HCl (Reglan) 10 mg Q6H PRN IVP Nausea & Vomiting 04/08/20 21:15 04/25/20 21:14 Micafungin Sodium 100 mg/Sodium Chloride 100 ml @ 100 mls/hr Q24H IVPB 04/13/20 20:00 04/16/20 19:59 Morphine Sulfate (Morphine Sulfate) 2 mg Q4H PRN IVP Breakthrough pain 5-10 04/09/20 12:30 04/15/20 17:42 04/13/20 09:30 Morphine Sulfate (Morphine Sulfate) 4 mg Q4H PRN IVP Severe Pain (Pain Scale 7-10) 04/08/20 17:43 04/15/20 17:42 04/13/20 04:52 Ondansetron HCl (Zofran) 4 mg Q6H PRN IVP Nausea & Vomiting 04/08/20 17:44 04/25/20 17:43 Pantoprazole (Protonix) 40 mg DAILY IVP 04/09/20 09:00 05/01/20 08:59 04/13/20 08:21 Polyethylene Glycol (Miralax) 17 gm HSPRN PRN ORAL Constipation 04/09/20 01:30 05/08/20 20:59 Polymyxin B Sulfate 592126 units/Dextrose 550 ml @ 550 mls/hr EVERY 12 HOURS IVPB 04/13/20 10:34 04/17/20 11:59 04/13/20 10:39 Potassium Chloride (K-Dur) 40 meq ONCE ORAL 04/13/20 09:45 04/13/20 12:00 04/13/20 10:38 Rivaroxaban (Xarelto) 15 mg DAILY ORAL 04/09/20 09:00 06/29/20 08:59 04/10/20 12:09 Vancomycin HCl (Vanco pharmacy to dose) 1 ea DAILY PRN MISC Per rx protocol 04/12/20 17:45 05/12/20 17:44 Vancomycin HCl 1 gm/Dextrose 275 ml @ 183.708 mls/hr Q12H IVPB 04/13/20 08:00 04/18/20 07:59 04/13/20 08:20 Last 24 Hour Vital Signs Date Time Temp Pulse Resp B/P (MAP) Pulse Ox O2 Delivery O2 Flow Rate FiO2 04/13/20 09:00 Nasal Cannula 2.0 04/13/20 08:00 96.6 71 20 146/60 (88) 98 04/13/20 05:56 144/68 04/13/20 05:56 98 144/68 04/13/20 04:00 90 04/13/20 04:00 97.9 98 19 144/68 (93) 98 04/13/20 00:00 98.8 77 19 100/64 (76) 97 04/13/20 00:00 96 04/12/20 21:52 139/64 04/12/20 21:51 92 139/64 04/12/20 21:00 Nasal Cannula 2.0 04/12/20 20:02 96 Nasal Cannula 2.0 28 04/12/20 20:00 98.1 92 20 139/64 (89) 98 04/12/20 20:00 93 04/12/20 16:00 89 04/12/20 16:00 97.1 86 19 121/73 (89) 97 04/12/20 13:44 137/56 04/12/20 13:44 107 137/56 04/12/20 12:45 98.4 04/12/20 12:30 101.5 04/12/20 12:00 107 04/12/20 12:00 101.7 107 19 137/56 (83) 99 04/12/20 11:33 101.5 04/12/20 09:00 Nasal Cannula 2.0 04/12/20 08:00 97.1 103 21 163/77 (105) 97 04/12/20 08:00 121 04/12/20 05:27 97 146/61 04/12/20 05:26 146/66 04/12/20 04:21 96.9 04/12/20 04:00 111 04/12/20 04:00 96.9 97 20 146/61 (89) 98 04/12/20 00:00 103 04/12/20 00:00 96.6 107 20 119/57 (77) 100 04/11/20 21:19 96 169/69 04/11/20 21:18 169/69 6/24/20 21:00 Nasal Cannula 2.0 04/11/20 20:00 94 04/11/20 20:00 98.9 96 20 169/69 (102) 98 04/11/20 16:00 103 04/11/20 16:00 98.3 63 20 152/84 (106) 98 04/11/20 13:52 160/59 04/11/20 13:11 160/59 04/11/20 13:10 95 160/59 04/11/20 12:00 98.2 88 19 160/59 (92) 98 04/11/20 12:00 95 Intake and Output 04/12/20 04/13/20 19:00 07:00 Intake Total 960 ml 1025 ml Output Total 600 ml 2800 ml Balance 360 ml -1775 ml Intake Oral 960 ml IV Total 1025 ml Output Urine Total 600 ml 2800 ml Labs Test 04/11/20 05:25 04/11/20 11:40 04/12/20 08:20 04/12/20 18:30 White Blood Count 7.9 K/UL (4.8-10.8) 7.2 K/UL (4.8-10.8) Red Blood Count 3.10 M/UL (4.20-5.40) 3.16 M/UL (4.20-5.40) Hemoglobin 8.0 G/DL (12.0-16.0) 8.3 G/DL (12.0-16.0) Hematocrit 26.9 % (37.0-47.0) 27.5 % (37.0-47.0) Mean Corpuscular Volume 87 FL (80-99) 87 FL (80-99) Mean Corpuscular Hemoglobin 25.9 PG (27.0-31.0) 26.3 PG (27.0-31.0) Mean Corpuscular Hemoglobin Concent 29.9 G/DL (32.0-36.0) 30.3 G/DL (32.0-36.0) Red Cell Distribution Width 18.0 % (11.6-14.8) 17.6 % (11.6-14.8) Platelet Count 323 K/UL (150-450) 376 K/UL (150-450) Mean Platelet Volume 8.2 FL (6.5-10.1) 6.8 FL (6.5-10.1) Neutrophils (%) (Auto) 73.1 % (45.0-75.0) 71.4 % (45.0-75.0) Lymphocytes (%) (Auto) 12.4 % (20.0-45.0) 14.6 % (20.0-45.0) Monocytes (%) (Auto) 12.3 % (1.0-10.0) 12.1 % (1.0-10.0) Eosinophils (%) (Auto) 0.9 % (0.0-3.0) 1.0 % (0.0-3.0) Basophils (%) (Auto) 1.2 % (0.0-2.0) 1.0 % (0.0-2.0) Sodium Level 141 MMOL/L (136-145) 139 MMOL/L (136-145) Potassium Level 3.6 MMOL/L (3.5-5.1) 4.0 MMOL/L (3.5-5.1) Chloride Level 107 MMOL/L (98-107) 105 MMOL/L (98-107) Carbon Dioxide Level 26 MMOL/L (21-32) 24 MMOL/L (21-32) Anion Gap 8 mmol/L (5-15) 10 mmol/L (5-15) Blood Urea Nitrogen 18 mg/dL (7-18) 14 mg/dL (7-18) Creatinine 1.1 MG/DL (0.55-1.30) 1.0 MG/DL (0.55-1.30) Estimat Glomerular Filtration Rate > 60 mL/min (>60) > 60 mL/min (>60) Glucose Level 90 MG/DL (74-106) 95 MG/DL (74-106) Calcium Level 7.6 MG/DL (8.5-10.1) 8.5 MG/DL (8.5-10.1) Total Bilirubin 0.2 MG/DL (0.2-1.0) Aspartate Amino Transf (AST/SGOT) 18 U/L (15-37) Alanine Aminotransferase (ALT/SGPT) 6 U/L (12-78) Alkaline Phosphatase 74 U/L (46-116) Total Protein 5.4 G/DL (6.4-8.2) Albumin 1.3 G/DL (3.4-5.0) Globulin 4.1 g/dL Albumin/Globulin Ratio 0.3 (1.0-2.7) Urine Color Pale yellow Pale yellow Urine Appearance Clear Clear Urine pH 6 (4.5-8.0) 6 (4.5-8.0) Urine Specific [place] 1.010 (1.005-1.035) 1.010 (1.005-1.035) Urine Protein 1+ (NEGATIVE) 2+ (NEGATIVE) Urine Glucose (UA) Negative (NEGATIVE) Negative (NEGATIVE) Urine Ketones Negative (NEGATIVE) Negative (NEGATIVE) Urine Blood Negative (NEGATIVE) Negative (NEGATIVE) Urine Nitrite Negative (NEGATIVE) Negative (NEGATIVE) Urine Bilirubin Negative (NEGATIVE) Negative (NEGATIVE) Urine Urobilinogen Normal MG/DL (0.0-1.0) Normal MG/DL (0.0-1.0) Urine Leukocyte Esterase Negative (NEGATIVE) Negative (NEGATIVE) Urine RBC 0-2 /HPF (0 - 2) 0-2 /HPF (0 - 2) Urine WBC 0-2 /HPF (0 - 2) 0-2 /HPF (0 - 2) Urine Squamous Epithelial Cells Moderate /LPF (NONE/OCC) Occasional /LPF Urine Bacteria Few /HPF (NONE) Few /HPF (NONE) Urine Amorphous Sediment Few /LPF (NONE) Test 04/12/20 18:35 04/13/20 06:05 Lactic Acid Level 1.50 mmol/L (0.4-2.0) White Blood Count 4.6 K/UL (4.8-10.8) Red Blood Count 2.68 M/UL (4.20-5.40) Hemoglobin 7.0 G/DL (12.0-16.0) Hematocrit 23.4 % (37.0-47.0) Mean Corpuscular Volume 87 FL (80-99) Mean Corpuscular Hemoglobin 26.1 PG (27.0-31.0) Mean Corpuscular Hemoglobin Concent 29.9 G/DL (32.0-36.0) Red Cell Distribution Width 16.9 % (11.6-14.8) Platelet Count 335 K/UL (150-450) Mean Platelet Volume 7.2 FL (6.5-10.1) Neutrophils (%) (Auto) % (45.0-75.0) Lymphocytes (%) (Auto) % (20.0-45.0) Monocytes (%) (Auto) % (1.0-10.0) Eosinophils (%) (Auto) % (0.0-3.0) Basophils (%) (Auto) % (0.0-2.0) Differential Total Cells Counted 100 Neutrophils % (Manual) 73 % (45-75) Lymphocytes % (Manual) 19 % (20-45) Monocytes % (Manual) 7 % (1-10) Eosinophils % (Manual) 0 % (0-3) Basophils % (Manual) 1 % (0-2) Band Neutrophils 0 % (0-8) Platelet Estimate Adequate Platelet Morphology Normal Anisocytosis 1+ Sodium Level 140 MMOL/L (136-145) Potassium Level 3.4 MMOL/L (3.5-5.1) Chloride Level 105 MMOL/L (98-107) Carbon Dioxide Level 28 MMOL/L (21-32) Anion Gap 7 mmol/L (5-15) Blood Urea Nitrogen 10 mg/dL (7-18) Creatinine 1.0 MG/DL (0.55-1.30) Estimat Glomerular Filtration Rate > 60 mL/min (>60) Glucose Level 89 MG/DL (74-106) Calcium Level 8.4 MG/DL (8.5-10.1) Total Bilirubin 0.2 MG/DL (0.2-1.0) Direct Bilirubin 0.2 MG/DL (0.0-0.3) Aspartate Amino Transf (AST/SGOT) 19 U/L (15-37) Alanine Aminotransferase (ALT/SGPT) 6 U/L (12-78) Alkaline Phosphatase 71 U/L (46-116) Total Protein 5.0 G/DL (6.4-8.2) Albumin 1.3 G/DL (3.4-5.0) Micro Microbiology Date/Time Source Procedure Growth Status 04/12/20 18:30 Stool Clostridium difficile Toxin Assay - Final Complete 04/12/20 18:30 External Cath Urine Culture - Preliminary NO GROWTH Resulted Height (Feet): 5 Height (Inches): 8.00 Weight (Pounds): 294 Objective Physical Exam Sp02 EP Interpretation: reviewed, normal General: Patient appears chronically ill Head: normocephalic, atraumatic ++ngt Respiratory: , crackles - both lower lobes Cardiovascular: tachycardia Gastrointestinal: non tender, soft Musculoskeletal: other - Patient appears chronically debilitated both lower extremities are extended Neurologic: other - Some verbal response, but chronic disability Skin: no rash : ++Virgil Chowdhury MD Apr 13, 2020 11:01
--- NOTE | 2020-04-13 11:04 | NUR ---
ST NOTE COGNITIVE RE-TRAINING Patient seen at bedside for cognitive re-training, alert and NPO for OR at 13:00. Dysphagia tx not completed given NPO. -Throughout the session Patient continued to report severe pain in legs, neck, and hips; this resulted in Patient having difficulty focusing on tasks, however, Patient agreeable to [facility] cognitive re-training tx. Patient is alert and orientated x4, VSS for the duration of the session. -Patient trained and educated on memory strategies: association, repetition, and visualization; completed practice activities with delayed recall of +6/9. -Patient educated and trained on compensatory memory strategies such as writing down information, using a calendar, and daily routines. -Patient educated on convergent and divergent thinking skills, trained on strategies to improve word retrieval skills. Patient with ongoing pain and session was ended due to Patient's difficulty focusing. [facility] plans to continue to f/u with Patient for cognitive re-training. RECOMMENDATIONS: 1. Soft East Chew Solids with Thin Liquids (Per most recent [facility] tx session). -->Per RD 04/09/20, Cardiac Type +Boris BID 2. Nursing to assist Patient with oral care BID. 3. [facility] plans to f/u for diet tolerance and dysphagia tx/management. 4. Will continue to f/u for cognitive re-training while in house. [facility] plans to f/u with Patient s/p OR to assure continued tolerance of PO diet consistency. [facility] [phone]
--- NOTE | 2020-04-13 11:20 | Diagnostic Imaging Report ---
Procedure: XRAY Chest 1v Reason for study: Reason For Exam: SOB Comparison films: 04/11/2020. FINDINGS: A single one view chest is obtained. Vascularity is normal. No significant change bilateral infiltrates. Cardiac and mediastinal silhouette are within normal limits. Small left effusion unchanged. The bony thorax appear unremarkable. IMPRESSION: NO SIGNIFICANT CHANGE COMPARED TO PREVIOUS EXAM.
--- NOTE | 2020-04-13 11:24 | NUR ---
NURSE NOTES: [facility] 7, Dr Mendez/ Dr Tanner made aware, awaiting callback. Addendum: 04/13/20 at 1230 by Tracey Ortiz RN Spoke with Dr Tanner, will review ultrasound result first.
--- NOTE | 2020-04-13 12:28 | NUR ---
NURSE NOTES: Patient transported down for procedure.
[2020-04-13] MEDS ORDERED: Lidocaine 1% MPF 10mg/ml 5ml ONE (12:30)
[2020-04-13] MEDS ORDERED: LR 1000ml ONE (12:30)
--- NOTE | 2020-04-13 12:32 | Pre-Procedure Note/Attestation ---
Pre-Procedure Note/Attestation Complete Prior to Procedure Planned Procedure: not applicable Procedure Narrative: esophagogastroduodenoscopy and colonoscopy Indications for Procedure Pre-Operative Diagnosis: anemia Attestation I attest that I discussed the nature of the procedure; its benefits; risks and complications; and alternatives (and the risks and benefits of such alternatives ), prior to the procedure, with the patient (or the patient's legal junior sales representative). I attest that, if there was a reasonable possibility of needing a blood transfusion, the patient (or the patient's legal junior sales representative) was given the [facility] standardized written summary, pursuant to the [place] Joelle Blood Safety Act ([place] Health and Safety Code # 1645, as amended). I attest that I re-evaluated the patient just prior to the surgery and that there has been no change in the patient's H&P, except as documented below: Arturo Boyd MD Apr 13, 2020 12:32
--- NOTE | 2020-04-13 12:37 | Cardiac Electrophysiology PN ---
Assessment/Plan Assessment/Plan 1. Atrial flutter with rapid ventricular response of 170s. On Cardizem 90 OG tid and amiodarone 200 po daily On Xarelto 15 mg daily but is on hold for rectal bleeding for EGD nd colonoscopy tomorrow. Would benefit from atrial flutter ablation when stable Ischemia eval per Dr. Crooks ( Patient couldn't complete the stress test) . 2. Hypertension. On Cardizem 3. S/P Respiratory failure, extubated 4. Acute renal failure, that is improving. 5. Normal left ventricular systolic function by echo on March 26, 2020, with EF of 55%. 6. Severe bilateral LE edema. On Lasix 40 iv bid. Bilateral LE duplex, showed no DVT 7. Rectal bleed, Xarelto on hold. EGD and Colonoscopy today by Dr jesica MATA RN Subjective Subjective In SR on PO Amiodarone and Cardizem. Stress test cancelled as she couldn't tolerate it. NPO for EGD and colonoscopy today for positive OB by Dr Boyd Objective Last 24 Hour Vital Signs Date Time Temp Pulse Resp B/P (MAP) Pulse Ox O2 Delivery O2 Flow Rate FiO2 04/13/20 11:40 97.8 88 18 140/80 (100) 97 04/13/20 09:00 Nasal Cannula 2.0 04/13/20 08:00 94 04/13/20 08:00 96.6 71 20 146/60 (88) 98 04/13/20 05:56 144/68 04/13/20 05:56 98 144/68 04/13/20 04:00 90 04/13/20 04:00 97.9 98 19 144/68 (93) 98 04/13/20 00:00 98.8 77 19 100/64 (76) 97 04/13/20 00:00 96 04/12/20 21:52 139/64 04/12/20 21:51 92 139/64 04/12/20 21:00 Nasal Cannula 2.0 04/12/20 20:02 96 Nasal Cannula 2.0 28 04/12/20 20:00 98.1 92 20 139/64 (89) 98 04/12/20 20:00 93 04/12/20 16:00 89 04/12/20 16:00 97.1 86 19 121/73 (89) 97 04/12/20 13:44 137/56 04/12/20 13:44 107 137/56 04/12/20 12:45 98.4 Intake and Output 04/12/20 04/13/20 19:00 07:00 Intake Total 960 ml 1025 ml Output Total 600 ml 2800 ml Balance 360 ml -1775 ml Intake Oral 960 ml IV Total 1025 ml Output Urine Total 600 ml 2800 ml Laboratory Tests Test 04/12/20 18:30 04/12/20 18:35 04/13/20 06:05 Urine Color Pale yellow Urine Appearance Clear Urine pH 6 (4.5-8.0) Urine Specific [place] 1.010 (1.005-1.035) Urine Protein 2+ (NEGATIVE) H Urine Glucose (UA) Negative (NEGATIVE) Urine Ketones Negative (NEGATIVE) Urine Blood Negative (NEGATIVE) Urine Nitrite Negative (NEGATIVE) Urine Bilirubin Negative (NEGATIVE) Urine Urobilinogen Normal MG/DL (0.0-1.0) Urine Leukocyte Esterase Negative (NEGATIVE) Urine RBC 0-2 /HPF (0 - 2) Urine WBC 0-2 /HPF (0 - 2) Urine Squamous Epithelial Cells Occasional /LPF Urine Amorphous Sediment Few /LPF (NONE) H Urine Bacteria Few /HPF (NONE) Lactic Acid Level 1.50 mmol/L (0.4-2.0) White Blood Count 4.6 K/UL (4.8-10.8) L Red Blood Count 2.68 M/UL (4.20-5.40) L Hemoglobin 7.0 G/DL (12.0-16.0) L Hematocrit 23.4 % (37.0-47.0) L Mean Corpuscular Volume 87 FL (80-99) Mean Corpuscular Hemoglobin 26.1 PG (27.0-31.0) L Mean Corpuscular Hemoglobin Concent 29.9 G/DL (32.0-36.0) L Red Cell Distribution Width 16.9 % (11.6-14.8) H Platelet Count 335 K/UL (150-450) Mean Platelet Volume 7.2 FL (6.5-10.1) Neutrophils (%) (Auto) % (45.0-75.0) Lymphocytes (%) (Auto) % (20.0-45.0) Monocytes (%) (Auto) % (1.0-10.0) Eosinophils (%) (Auto) % (0.0-3.0) Basophils (%) (Auto) % (0.0-2.0) Differential Total Cells Counted 100 Neutrophils % (Manual) 73 % (45-75) Lymphocytes % (Manual) 19 % (20-45) L Monocytes % (Manual) 7 % (1-10) Eosinophils % (Manual) 0 % (0-3) Basophils % (Manual) 1 % (0-2) Band Neutrophils 0 % (0-8) Platelet Estimate Adequate Platelet Morphology Normal Anisocytosis 1+ Sodium Level 140 MMOL/L (136-145) Potassium Level 3.4 MMOL/L (3.5-5.1) L Chloride Level 105 MMOL/L (98-107) Carbon Dioxide Level 28 MMOL/L (21-32) Anion Gap 7 mmol/L (5-15) Blood Urea Nitrogen 10 mg/dL (7-18) Creatinine 1.0 MG/DL (0.55-1.30) Estimat Glomerular Filtration Rate > 60 mL/min (>60) Glucose Level 89 MG/DL (74-106) Calcium Level 8.4 MG/DL (8.5-10.1) L Total Bilirubin 0.2 MG/DL (0.2-1.0) Direct Bilirubin 0.2 MG/DL (0.0-0.3) Aspartate Amino Transf (AST/SGOT) 19 U/L (15-37) Alanine Aminotransferase (ALT/SGPT) 6 U/L (12-78) L Alkaline Phosphatase 71 U/L (46-116) Total Protein 5.0 G/DL (6.4-8.2) L Albumin 1.3 G/DL (3.4-5.0) L Microbiology Date/Time Source Procedure Growth Status 04/11/20 05:30 Blood Blood Culture - Preliminary NO GROWTH AFTER 24 HOURS Resulted 04/11/20 05:25 Blood Blood Culture - Preliminary NO GROWTH AFTER 24 HOURS Resulted 04/12/20 10:12 Nasopharynx SARS-CoV-2 RdRp Gene Assay - Final Complete 04/12/20 18:30 Stool Clostridium difficile Toxin Assay - Final Complete 04/12/20 18:30 External Cath Urine Culture - Preliminary NO GROWTH Resulted Objective NECK: No JVD LUNGS: Coarse rhonchi. CARDIOVASCULAR: Regular S1 and S2 with no gallop. ABDOMEN: Soft. EXTREMITIES: No pitting edema. Carlos Dean MD Apr 13, 2020 12:37
--- NOTE | 2020-04-13 12:54 | Cardiology Progress Note ---
Assessment/Plan Status: stable Assessment/Plan Assessment/Plan Problem List: (1) Atrial flutter ICD Codes: I48.92 - Unspecified atrial flutter SNOMED: 9039705 (2) Hypertension ICD Codes: I10 - Essential (primary) hypertension SNOMED: 92068686 (3) Hyperkalemia ICD Codes: E87.5 - Hyperkalemia SNOMED: 09853141 (4) Acute encephalopathy ICD Codes: G93.40 - Encephalopathy, unspecified SNOMED: 0893690 (5) Acute and chronic respiratory failure with hypoxia ICD Codes: J96.21 - Acute and chronic respiratory failure with hypoxia SNOMED: 19449262, 517665327 (6) VENTURA (acute kidney injury) ICD Codes: N17.9 - Acute kidney failure, unspecified SNOMED: 6618235, 38439036 Status: deteriorating AFIB/Flutter: Converted to normal sinus Continue amiodarone to maintain sinus Cardizem for rate control Echocardiogram with normal LV function Ischemia evaluation at later date Continue anticoagulation with xarelto 15 mg (held for endoscopy ) EP for ablation as outpatient Clear to proceed with GI procedures given low risk Subjective Cardiovascular: Reports: no symptoms Respiratory: Reports: no symptoms Gastrointestinal/Abdominal: Reports: no symptoms Genitourinary: Reports: no symptoms Subjective No acute events, patient stable on nasal canula and remains in normal sinus, no fevers, vitals stable, no complaints, stable on floors, amiodarone titrated down She could not complete stress test due to inability to lay flat GI for endoscopy today xarelto to be held Objective Last 24 Hour Vital Signs Date Time Temp Pulse Resp B/P (MAP) Pulse Ox O2 Delivery O2 Flow Rate FiO2 04/13/20 11:40 97.8 88 18 140/80 (100) 97 04/13/20 09:00 Nasal Cannula 2.0 04/13/20 08:00 94 04/13/20 08:00 96.6 71 20 146/60 (88) 98 04/13/20 05:56 144/68 04/13/20 05:56 98 144/68 04/13/20 04:00 90 04/13/20 04:00 97.9 98 19 144/68 (93) 98 04/13/20 00:00 98.8 77 19 100/64 (76) 97 04/13/20 00:00 96 04/12/20 21:52 139/64 04/12/20 21:51 92 139/64 04/12/20 21:00 Nasal Cannula 2.0 04/12/20 20:02 96 Nasal Cannula 2.0 28 04/12/20 20:00 98.1 92 20 139/64 (89) 98 04/12/20 20:00 93 04/12/20 16:00 89 04/12/20 16:00 97.1 86 19 121/73 (89) 97 04/12/20 13:44 137/56 04/12/20 13:44 107 137/56 General Appearance: no apparent distress, alert EENT: PERRL/EOMI, normal ENT inspection, TMs normal, pharynx normal Neck: non-tender, normal alignment, supple, normal inspection, no JVD Rhythm: NSR Cardiovascular: normal peripheral pulses, normal rate Respiratory/Chest: chest wall non-tender, lungs clear, normal breath sounds, no respiratory distress, no accessory muscle use Abdomen: normal bowel sounds, non tender, soft, no organomegaly, no mass Extremities: normal range of motion, non-tender, normal inspection, no calf tenderness, no swelling Neurologic: sensor operator II-XII grossly normal, no motor/sensory deficits Intake and Output 04/12/20 04/13/20 18:59 06:59 Intake Total 960 ml 1025 ml Output Total 600 ml 2800 ml Balance 360 ml -1775 ml Intake Oral 960 ml IV Total 1025 ml Output Urine Total 600 ml 2800 ml Laboratory Tests Test 04/12/20 18:30 04/12/20 18:35 04/13/20 06:05 Urine Color Pale yellow Urine Appearance Clear Urine pH 6 (4.5-8.0) Urine Specific [place] 1.010 (1.005-1.035) Urine Protein 2+ (NEGATIVE) H Urine Glucose (UA) Negative (NEGATIVE) Urine Ketones Negative (NEGATIVE) Urine Blood Negative (NEGATIVE) Urine Nitrite Negative (NEGATIVE) Urine Bilirubin Negative (NEGATIVE) Urine Urobilinogen Normal MG/DL (0.0-1.0) Urine Leukocyte Esterase Negative (NEGATIVE) Urine RBC 0-2 /HPF (0 - 2) Urine WBC 0-2 /HPF (0 - 2) Urine Squamous Epithelial Cells Occasional /LPF Urine Amorphous Sediment Few /LPF (NONE) H Urine Bacteria Few /HPF (NONE) Lactic Acid Level 1.50 mmol/L (0.4-2.0) White Blood Count 4.6 K/UL (4.8-10.8) L Red Blood Count 2.68 M/UL (4.20-5.40) L Hemoglobin 7.0 G/DL (12.0-16.0) L Hematocrit 23.4 % (37.0-47.0) L Mean Corpuscular Volume 87 FL (80-99) Mean Corpuscular Hemoglobin 26.1 PG (27.0-31.0) L Mean Corpuscular Hemoglobin Concent 29.9 G/DL (32.0-36.0) L Red Cell Distribution Width 16.9 % (11.6-14.8) H Platelet Count 335 K/UL (150-450) Mean Platelet Volume 7.2 FL (6.5-10.1) Neutrophils (%) (Auto) % (45.0-75.0) Lymphocytes (%) (Auto) % (20.0-45.0) Monocytes (%) (Auto) % (1.0-10.0) Eosinophils (%) (Auto) % (0.0-3.0) Basophils (%) (Auto) % (0.0-2.0) Differential Total Cells Counted 100 Neutrophils % (Manual) 73 % (45-75) Lymphocytes % (Manual) 19 % (20-45) L Monocytes % (Manual) 7 % (1-10) Eosinophils % (Manual) 0 % (0-3) Basophils % (Manual) 1 % (0-2) Band Neutrophils 0 % (0-8) Platelet Estimate Adequate Platelet Morphology Normal Anisocytosis 1+ Sodium Level 140 MMOL/L (136-145) Potassium Level 3.4 MMOL/L (3.5-5.1) L Chloride Level 105 MMOL/L (98-107) Carbon Dioxide Level 28 MMOL/L (21-32) Anion Gap 7 mmol/L (5-15) Blood Urea Nitrogen 10 mg/dL (7-18) Creatinine 1.0 MG/DL (0.55-1.30) Estimat Glomerular Filtration Rate > 60 mL/min (>60) Glucose Level 89 MG/DL (74-106) Calcium Level 8.4 MG/DL (8.5-10.1) L Total Bilirubin 0.2 MG/DL (0.2-1.0) Direct Bilirubin 0.2 MG/DL (0.0-0.3) Aspartate Amino Transf (AST/SGOT) 19 U/L (15-37) Alanine Aminotransferase (ALT/SGPT) 6 U/L (12-78) L Alkaline Phosphatase 71 U/L (46-116) Total Protein 5.0 G/DL (6.4-8.2) L Albumin 1.3 G/DL (3.4-5.0) L Microbiology Date/Time Source Procedure Growth Status 04/11/20 05:30 Blood Blood Culture - Preliminary NO GROWTH AFTER 24 HOURS Resulted 04/11/20 05:25 Blood Blood Culture - Preliminary NO GROWTH AFTER 24 HOURS Resulted 04/12/20 10:12 Nasopharynx SARS-CoV-2 RdRp Gene Assay - Final Complete 04/12/20 18:30 Stool Clostridium difficile Toxin Assay - Final Complete 04/12/20 18:30 External Cath Urine Culture - Preliminary NO GROWTH Resulted Rafat Crooks MD Apr 13, 2020 12:54
[2020-04-13] MEDS ORDERED: NS 500ML IVPB ONE (12:55)
--- NOTE | 2020-04-13 13:23 | Endoscopy Procedure Note ---
Endoscopy Procedure Note General Indication for Procedure: gib Procedures Performed: EGD, colonoscopy Operative Findings/Diagnosis: ischemic colitis Specimen: yes Pt Tolerated Procedure Well: Yes Estimated Blood Loss: none Anesthesia Anesthesiologist: jimmy Anesthesia: MAC Inserted Devices Implant(s) used?: No GI Core Measures 50 yrs or older w/o bx or poly: Not Applicable 10yrs. F/U recommended: Not Applicable Arturo Boyd MD Apr 13, 2020 13:23
--- NOTE | 2020-04-13 13:34 | Immediate Post-Op Evaluation ---
Immediate Post-Op Evalulation Immediate Post-Op Evalulation Procedure: EGD/Colonoscopy Date of Evaluation: Apr 13, 2020 Time of Evaluation: 13:33 IV Fluids: 500 Blood Pressure Systolic: 149 Blood Pressure Diastolic: 78 Pulse Rate: 96 Respiratory Rate: 14 O2 Sat by Pulse Oximetry: 99 Temperature (Fahrenheit): 98.7 Nausea: No Vomiting: No Patient Status: awake, reacts, patent Hydration Status: adequate Drug: none Malissa Parra CRNA Apr 13, 2020 13:34
--- NOTE | 2020-04-13 13:38 | Anethesia Preoperative Eval ---
Anesthesia Pre-op PMH/ROS General Date of Evaluation: Apr 13, 2020 Time of Evaluation: 12:40 Anesthesiologist: angella ASA Score: ASA 3 Mallampati Score Class I : Soft palate, uvula, fauces, pillars visible Class II: Soft palate, uvula, fauces visible Class III: Soft palate, base of uvula visible Class IV: Only hard plate visible Mallampati Classification: Class III Surgeon: nella Diagnosis: anemia Surgical Procedure: EGD/Colonoscopy Anesthesia History: none Family History: no anesthesia problems Allergies: Coded Allergies: LISINOPRIL (Verified Allergy, Unknown, Hives, 04/12/14) Medications: see eMAR Patient NPO?: Yes NPO Date: Apr 13, 2020 NPO Time: 07:00 Past Medical History Cardiovascular: Reports: HTN, CAD, arrhythmia Pulmonary: Reports: other - pneumonia Gastrointestinal/Genitourinary: Reports: GERD; Denies: CRI, ESRD, other Neurologic/Psychiatric: Reports: dementia - hx; Denies: CVA, depression/anxiety, TIA, other Endocrine: Reports: DM; Denies: hypothyroidism, steroids, other HEENT: Denies: cataract (L), cataract (R), glaucoma, [place] (L), [place] (R), other Hematology/Immune: Reports: anemia Musculoskeletal/Integumentary: Denies: OA, RA, DJD, DDD, edema, other Other: obesity Anesthesia Pre-op Phys. Exam Physician Exam Last Vital Signs Date Time Temp Pulse Resp B/P (MAP) Pulse Ox O2 Delivery O2 Flow Rate FiO2 04/13/20 12:00 89 04/13/20 11:40 97.8 18 140/80 (100) 97 04/13/20 09:00 Nasal Cannula 2.0 04/12/20 20:02 28 Constitutional: NAD - on 2L nc; swellling to legs and arms, other Neurologic: CN 2-12 intact Cardiovascular: other - Aflul/ SR hr 90 Respiratory: CTA Gastrointestinal: S/NT/ND Airway Exam Mallampati Classification 3 Mallampati Score: Class III MO: limited ROM: limited Dentures: no upper, no lower Anesthesia Pre-op A/P Labs Hematology Test 04/13/20 06:05 White Blood Count 4.6 K/UL (4.8-10.8) L Red Blood Count 2.68 M/UL (4.20-5.40) L Hemoglobin 7.0 G/DL (12.0-16.0) L Hematocrit 23.4 % (37.0-47.0) L Mean Corpuscular Volume 87 FL (80-99) Mean Corpuscular Hemoglobin 26.1 PG (27.0-31.0) L Mean Corpuscular Hemoglobin Concent 29.9 G/DL (32.0-36.0) L Red Cell Distribution Width 16.9 % (11.6-14.8) H Platelet Count 335 K/UL (150-450) Mean Platelet Volume 7.2 FL (6.5-10.1) Neutrophils (%) (Auto) % (45.0-75.0) Lymphocytes (%) (Auto) % (20.0-45.0) Monocytes (%) (Auto) % (1.0-10.0) Eosinophils (%) (Auto) % (0.0-3.0) Basophils (%) (Auto) % (0.0-2.0) Differential Total Cells Counted 100 Neutrophils % (Manual) 73 % (45-75) Lymphocytes % (Manual) 19 % (20-45) L Monocytes % (Manual) 7 % (1-10) Eosinophils % (Manual) 0 % (0-3) Basophils % (Manual) 1 % (0-2) Band Neutrophils 0 % (0-8) Platelet Estimate Adequate Platelet Morphology Normal Anisocytosis 1+ Chemistry Test 04/12/20 18:35 04/13/20 06:05 Lactic Acid Level 1.50 mmol/L (0.4-2.0) Sodium Level 140 MMOL/L (136-145) Potassium Level 3.4 MMOL/L (3.5-5.1) L Chloride Level 105 MMOL/L (98-107) Carbon Dioxide Level 28 MMOL/L (21-32) Anion Gap 7 mmol/L (5-15) Blood Urea Nitrogen 10 mg/dL (7-18) Creatinine 1.0 MG/DL (0.55-1.30) Estimat Glomerular Filtration Rate > 60 mL/min (>60) Glucose Level 89 MG/DL (74-106) Calcium Level 8.4 MG/DL (8.5-10.1) L Total Bilirubin 0.2 MG/DL (0.2-1.0) Direct Bilirubin 0.2 MG/DL (0.0-0.3) Aspartate Amino Transf (AST/SGOT) 19 U/L (15-37) Alanine Aminotransferase (ALT/SGPT) 6 U/L (12-78) L Alkaline Phosphatase 71 U/L (46-116) Total Protein 5.0 G/DL (6.4-8.2) L Albumin 1.3 G/DL (3.4-5.0) L Studies Pre-op Studies: EKG - Aflutter/ hr 90 Risk Assessment & Plan Plan: mac; IV established Status Change Before Surgery: No Pre-Antibiotics Drug: none Malissa Parra SENIOR JAVA SOFTWARE DEVELOPER Apr 13, 2020 13:38
--- NOTE | 2020-04-13 14:36 | 48 Hour Post Anesthesia Eval ---
Post Anesthesia Evaluation Procedure: EGD/Colonoscopy Date of Evaluation: Apr 13, 2020 Time of Evaluation: 14:36 Blood Pressure Systolic: 170 0: 60 Pulse Rate: 54 Respiratory Rate: 14 O2 Sat by Pulse Oximetry: 98 Airway: patent Nausea: No Vomiting: No Hydration Status: adequate Cardiopulmonary Status: stable Mental Status/LOC: patient returned to baseline Post-Anesthesia Complications: none Follow-up care needed: N/A Malissa Parra CRNA Apr 13, 2020 14:36
--- NOTE | 2020-04-13 16:10 | NUR ---
*-*DISCHARGE PLANNED*-* PATIENT WILL NEED ANOTHER COVID-19 PRIOR TO ADMISSION PATIENT LAST FEVER 04/12 PATIENT HAS BEEN ACCEPTED TO: [facility] P: [phone] S/W ASHLEY, STATED WILL ACCEPT PATIENT UPON DISCHARGE. ROOM#53.C SKILLED
--- NOTE | 2020-04-13 16:13 | NUR ---
CASE MANAGEMENT:NOTE CM ASKED FOR DOWNGRADE TO MED SURG AFTER EGD/COLONOSCOPY CM WAITING TO FOR RESPONSE
--- NOTE | 2020-04-13 17:15 | NUR ---
NURSE NOTES: Covid swab done, set to lab.
--- NOTE | 2020-04-13 18:14 | Procedure Note ---
DATE OF PROCEDURE: 04/13/2020 SURGEON: Arturo Boyd MD. PROCEDURE: Upper endoscopy with biopsy and colonoscopy with biopsy. ANESTHESIA: Per RETAIL ASSISTANT, Malissa Tarrillion. INSTRUMENT: Olympus adult flexible upper endoscope and colonoscope. INDICATION: GI bleeding. REASON FOR PROCEDURE: The procedure, risks, benefits, and possible consequences, including hemorrhage, aspiration, perforation and infection, and alternative treatments, were explained to the patient/legal guardian by Dr. Arturo Boyd and the patient/legal guardian understood and accepted these risks. DESCRIPTION OF PROCEDURE: After informed consent was obtained and patient was adequately sedated, Olympus upper endoscope was advanced from mouth in to the second portion of the duodenum and retroflexion was performed in the stomach. Patient has diffuse gastritis. Random biopsy from antrum was obtained to rule out H. pylori infection. Otherwise, the rest of upper endoscopic examination grossly within normal limits. At this time, the upper endoscope was retrieved and patient was turned over for colonoscopy. The scope was advanced from the colostomy bag to the cecum. Quality of prep overall was poor. Patient had evidence of ischemic ulceration just proximal to the opening of the colostomy, most probably ischemic. Multiple biopsies from this area were obtained. SUMMARY OF FINDINGS: 1. Gastritis, status post biopsy. 2. Ulcerations behind the colostomy bag, most probably ischemic in nature, status post biopsy. RECOMMENDATIONS: Follow up biopsy results and treat accordingly. Arturo Boyd M.D. DR: JUSTINO JOB#: [id number] CC:
--- NOTE | 2020-04-13 19:07 | Surgery Progress Note ---
Surgery Progress Note Subjective Symptoms: improved, tolerating diet, voiding well, passing flatus, BM Objective Last 24 Hour Vital Signs Date Time Temp Pulse Resp B/P (MAP) Pulse Ox O2 Delivery O2 Flow Rate FiO2 04/13/20 16:00 96.6 19 143/56 (85) 98 04/13/20 16:00 114 04/13/20 14:36 54 14 98 04/13/20 14:35 107 182/77 04/13/20 14:33 182/77 04/13/20 13:55 99.1 98 20 159/86 100 Room Air 04/13/20 13:45 99 15 154/83 100 Room Air 04/13/20 13:35 98 15 161/70 100 Room Air 04/13/20 13:34 96 14 99 04/13/20 13:30 98.7 96 15 149/78 100 Room Air 04/13/20 12:00 89 04/13/20 11:40 97.8 88 18 140/80 (100) 97 04/13/20 09:00 Nasal Cannula 2.0 04/13/20 08:00 94 04/13/20 08:00 96.6 71 20 146/60 (88) 98 04/13/20 05:56 144/68 04/13/20 05:56 98 144/68 04/13/20 04:00 90 04/13/20 04:00 97.9 98 19 144/68 (93) 98 04/13/20 00:00 98.8 77 19 100/64 (76) 97 04/13/20 00:00 96 04/12/20 21:52 139/64 04/12/20 21:51 92 139/64 04/12/20 21:00 Nasal Cannula 2.0 04/12/20 20:02 96 Nasal Cannula 2.0 28 04/12/20 20:00 98.1 92 20 139/64 (89) 98 04/12/20 20:00 93 I&O Intake and Output 04/12/20 04/13/20 19:00 07:00 Intake Total 960 ml 1025 ml Output Total 600 ml 2800 ml Balance 360 ml -1775 ml Intake Oral 960 ml IV Total 1025 ml Output Urine Total 600 ml 2800 ml Cardiovascular: RSR Respiratory: clear, decreased breath sounds Abdomen: soft, non-tender, present bowel sounds Extremities: no tenderness, no cyanosis Laboratory Tests Test 04/13/20 06:05 White Blood Count 4.6 K/UL (4.8-10.8) L Red Blood Count 2.68 M/UL (4.20-5.40) L Hemoglobin 7.0 G/DL (12.0-16.0) L Hematocrit 23.4 % (37.0-47.0) L Mean Corpuscular Volume 87 FL (80-99) Mean Corpuscular Hemoglobin 26.1 PG (27.0-31.0) L Mean Corpuscular Hemoglobin Concent 29.9 G/DL (32.0-36.0) L Red Cell Distribution Width 16.9 % (11.6-14.8) H Platelet Count 335 K/UL (150-450) Mean Platelet Volume 7.2 FL (6.5-10.1) Neutrophils (%) (Auto) % (45.0-75.0) Lymphocytes (%) (Auto) % (20.0-45.0) Monocytes (%) (Auto) % (1.0-10.0) Eosinophils (%) (Auto) % (0.0-3.0) Basophils (%) (Auto) % (0.0-2.0) Differential Total Cells Counted 100 Neutrophils % (Manual) 73 % (45-75) Lymphocytes % (Manual) 19 % (20-45) L Monocytes % (Manual) 7 % (1-10) Eosinophils % (Manual) 0 % (0-3) Basophils % (Manual) 1 % (0-2) Band Neutrophils 0 % (0-8) Platelet Estimate Adequate Platelet Morphology Normal Anisocytosis 1+ Sodium Level 140 MMOL/L (136-145) Potassium Level 3.4 MMOL/L (3.5-5.1) L Chloride Level 105 MMOL/L (98-107) Carbon Dioxide Level 28 MMOL/L (21-32) Anion Gap 7 mmol/L (5-15) Blood Urea Nitrogen 10 mg/dL (7-18) Creatinine 1.0 MG/DL (0.55-1.30) Estimat Glomerular Filtration Rate > 60 mL/min (>60) Glucose Level 89 MG/DL (74-106) Calcium Level 8.4 MG/DL (8.5-10.1) L Total Bilirubin 0.2 MG/DL (0.2-1.0) Direct Bilirubin 0.2 MG/DL (0.0-0.3) Aspartate Amino Transf (AST/SGOT) 19 U/L (15-37) Alanine Aminotransferase (ALT/SGPT) 6 U/L (12-78) L Alkaline Phosphatase 71 U/L (46-116) Total Protein 5.0 G/DL (6.4-8.2) L Albumin 1.3 G/DL (3.4-5.0) L Plan Problems: (1) Atrial flutter (2) Hypertension (3) Acute encephalopathy (4) VENTURA (acute kidney injury) (5) Acute and chronic respiratory failure with hypoxia (6) Abscess (7) Fistula (8) Sciatica neuralgia (9) Uncontrolled seizures (10) Forgetfulness (11) Sacral decubitus ulcer Assessment & Plan: Patient identified to have a sacral deep tissue injury upon admission Currently intensive care unit on support Care plan initiated (12) Chronic back pain (13) Overdose of opiate or related narcotic (14) Cellulitis of left leg (15) Pericolonic abscess due to diverticulitis (16) Ventral incisional hernia Assessment & Plan: History of colon resection colostomy Ventral incisional hernia reducible No acute invention monitor parastomal hernia stable ostomy viable and functional no acute intervention planned (17) Chronic pain of both knees (18) Dehydration (19) Hyperkalemia (20) Sepsis Assessment & Plan: Patient admitted identified to have sepsis leukocytosis tachycardia abnormal labs lactic acidosis. Chest x-ray reviewed. Imaging noted. Micro noted. Intensive care unit on support appreciate ICU care Nutritional optimization IV fluids IV antibiotics as per infectious disease tube feeds once stable will follow with recommendations thank you for letting participate patient's care Urosepsis on abx extubated improving downgrade upper ext edema noted US on coag as per heme Patient reports not liking current diet texture of Moist Puree with Thin Liquids. Patient completed PO intake of solids (crackers), Patient's swallow is grossly functional. Plan: 1. Upgrade Diet Texture to Soft Solids and continue Thin Liquids; type/ supplements per RD. 2. Nursing to assist Patient with oral care BID. DAILY ESTIMATED NEEDS: Needs based on Pulmonary, sepsis, wound, VENTURA 75.8kg adj 20-30 kcals/kg 8789-1977 total kcals 1.25-1.5 g protein/kg 94-114 g total protein 25-30 mL/kg 9418-0070 total fluid mLs NUTRITION DIAGNOSIS: Swallowing difficulty r/t respiratory status as evidenced by pt orally intubated, on NGT feeds-> now extubated, pending FUEL HOUSE ATTENDANT eval. PO DIET RECOMMENDATIONS-->>> Cardiac diet / texture per FUEL HOUSE ATTENDANT ENTERAL NUTRITION RECOMMENDATIONS: VITAL AF 1.2 @55ml/hr x24 hrs to provide 1320ml, 1584 kcal, 99g pro, 1071ml free H2O - Maintain at goal as tolerated if not cleared for oral diet by FUEL HOUSE ATTENDANT - Flush per MD/ HOB over 30 degree ADDITIONAL RECOMMENDATIONS: 1) Maintain calibrated bed scale wts (248lbs vs 217lbs last adm) 2) Monitor renal fxn and lytes closely, need for renal formula Creat wnl; lytes low (K,phos,mg) 3) Wound healing: ZnSO4 220mg QD x 10 days+ Boris BID via NGT hold vit C until renal fxn improves 4) NISS w/ TF, h/o DM 5) Monitor po intake if cleared for oral diet; need for snacks/supplements Julian Iglesias Apr 13, 2020 19:07
--- NOTE | 2020-04-13 19:30 | NUR ---
NURSE NOTES: Report received from JOSSELYN Webb. Patient is awake alert and orieted x3. No SOB or acute distress. LAC 22 gauge IV site intact. Denies pain. Bedside table and call light within reach. monitor technician intact. Bed at lowest position, locked and siderails up. Will continue plan of care.
[2020-04-13] MEDS: Dyna-Hex 2% Top Sol 2oz TOPIC SCH (20:00)
[2020-04-13] MEDS: Acetaminophen 650mg/20.3ml ORAL PRN (21:09)
[2020-04-13] MEDS: D5 1/2NS w/KCl 20mEq 1,000 ML IV SCH (21:33)
--- NOTE | 2020-04-13 23:00 | NUR ---
NURSE NOTES: Called and left message with Dr. Crooks regarding patients conversion to afib. He gave orders for Amiodarone IV Push, but patient converted back to sinus rhythm so Amiodarone was NOT given. Will continue to monitor.
[2020-04-13] MEDS ORDERED: Amiodarone 150mg/3ml Amp IVP ONE (23:45)
[2020-04-14] VITALS: BP 156/69
--- NOTE | 2020-04-14 01:40 | NUR ---
NURSE NOTES: Called and left message with Dr. Mendez regarding patient's elevated blood pressure. Awaiting call back.
--- NOTE | 2020-04-14 02:00 | NUR ---
NURSE NOTES: Had to give all IV meds one by one over the course of the night d/t pt only having one IV line and drugs not being compatible with each other. Pt refused another IV. Will continue to monitor.
[2020-04-14] MEDS: HYDROcodone/Acetamin 10/325 tab ORAL PRN ×3 (02:02→22:02)
[2020-04-14] MEDS: Morphine Sulfate 4mg/ml Inj (IV USE ONLY) IVP PRN ×3 (03:12→13:46)
[2020-04-14 04:00] VITALS: BP 173/63
[2020-04-14] MEDS: dilTIAZem HCl 90mg tab ORAL SCH ×3 (05:27→21:47)
[2020-04-14] MEDS: HydrALAZINE 50mg tab ORAL SCH ×3 (05:43→21:47)
--- NOTE | 2020-04-14 06:28 | NUR ---
HAND-OFF: Report given to JOSSELYN Wiggins. Pt stable.
[2020-04-14] MEDS ORDERED: Acetaminophen 650mg/20.3ml ORAL PRN ×2 (06:45)
[2020-04-14] MEDS ORDERED: Mylanta II UD 30ml ORAL PRN (06:50)
--- NOTE | 2020-04-14 06:50 | NUR ---
NURSE NOTES: The patient is alert and oriented x4 and was verbally responsive in clear syriac. The resp is even and unlabored and she is on room air saturating t Spo2% RA. She does not seem to be in any distress . The is a stage 2 pressure sore noted in the bilateral buttocks, the sacral and the left upper arm. will continue to monitor
[2020-04-14] MEDS ORDERED: DiphenhydrAMINE 25mg/10ml Elixir ORAL PRN (06:53)
[2020-04-14] MEDS ORDERED: HYDROcodone/Acetamin 5/325 tab ORAL PRN (06:56)
[2020-04-14] MEDS ORDERED: Milk of Magnesia 30ml Ud ORAL PRN (07:02)
[2020-04-14] MEDS ORDERED: Morphine Sulfate 2mg/ml Inj(IV/IM USE ONLY) IVP PRN (07:03)
[2020-04-14] MEDS ORDERED: Miralax 17gm pkt ORAL PRN (07:04)
--- NOTE | 2020-04-14 07:23 | General Progress Note ---
Assessment/Plan Status: stable Assessment/Plan: 1. History of diabetes. 2. Obesity. 3. Hypertension. 4. Hypercholesterolemia. 5. Diverticulosis/diverticulitis. 6. History of uterine fibroids. 7. Anemi 8. Stool ob positive x3 9. A.fib EGD and colonoscopy: SUMMARY OF FINDINGS: 1. Gastritis, status post biopsy. 2. Ulcerations behind the colostomy bag, most probably ischemic in nature, status post biopsy. RECOMMENDATIONS: Follow up biopsy results and treat accordingly. Subjective Allergies: Coded Allergies: LISINOPRIL (Verified Allergy, Unknown, Hives, 04/12/14) Objective Last 24 Hour Vital Signs Date Time Temp Pulse Resp B/P (MAP) Pulse Ox O2 Delivery O2 Flow Rate FiO2 04/14/20 05:43 156/69 04/14/20 05:27 90 156/69 04/14/20 04:00 98.6 99 20 173/63 (99) 92 04/14/20 04:00 90 04/14/20 02:32 98.6 04/14/20 00:00 98.6 100 23 156/69 (98) 95 04/14/20 00:00 95 04/13/20 23:43 98.6 04/13/20 21:39 98.6 04/13/20 21:11 99 167/68 04/13/20 21:10 167/68 04/13/20 21:00 Nasal Cannula 1.0 04/13/20 20:00 101.3 99 22 167/66 (99) 94 04/13/20 20:00 114 04/13/20 16:00 96.6 19 143/56 (85) 98 04/13/20 16:00 114 04/13/20 14:36 54 14 98 04/13/20 14:35 107 182/77 04/13/20 14:33 182/77 04/13/20 13:55 99.1 98 20 159/86 100 Room Air 04/13/20 13:45 99 15 154/83 100 Room Air 04/13/20 13:35 98 15 161/70 100 Room Air 04/13/20 13:34 96 14 99 04/13/20 13:30 98.7 96 15 149/78 100 Room Air 04/13/20 12:00 89 04/13/20 11:40 97.8 88 18 140/80 (100) 97 04/13/20 09:00 Nasal Cannula 2.0 04/13/20 08:00 94 04/13/20 08:00 96.6 71 20 146/60 (88) 98 Intake and Output 04/13/20 04/14/20 19:00 07:00 Intake Total 2745 ml Output Total 4000 ml Balance -1255 ml Intake Oral 480 ml Free Water 50 ml IV Total 160 ml Tube Feeding 55 ml Other 2000 ml Output Urine Total 2800 ml Stool Total 1200 ml # Voids 2 2 # Bowel Movements 2 Height (Feet): 5 Height (Inches): 8.00 Weight (Pounds): 294 General Appearance: alert EENT: normal ENT inspection Neck: supple Cardiovascular: normal rate Respiratory/Chest: decreased breath sounds Abdomen: normal bowel sounds, non tender, soft Pelvis: no masses - hernia, other - colostomy in place Extremities: non-tender Arturo Boyd MD Apr 14, 2020 07:23
--- NOTE | 2020-04-14 07:42 | NUR ---
HAND-OFF: Report given to Rafat ARCOS.
[2020-04-14] MEDS ORDERED: D5 1/2NS w/KCl 20mEq 1,000 ML IV SCH (08:00)
[2020-04-14] MEDS ORDERED: Vancomycin 1 GM in D5W 275 ML IVPB SCH (08:00)
--- NOTE | 2020-04-14 08:05 | NUR ---
NURSE NOTES: Received patient on bed, awake. IV access intact and patent. Bed in low and locked position. Patient has weiss and colostomy. Intact and patent and draining. No signs of respiratory distress. Call light in reach. Will continue to monitor.
[2020-04-14 08:24] VITALS: BP 123/61
[2020-04-14] MEDS: Pantoprazole Inj IVP SCH (08:35)
[2020-04-14] MEDS: Docusate 100mg/10ml Liq ORAL SCH ×3 (08:35→20:03)
[2020-04-14] MEDS: Amiodarone 200mg tab ORAL SCH (08:36)
[2020-04-14] MEDS: Xarelto 15mg tab ORAL SCH (08:36)
[2020-04-14 08:53] LABS: HEMATOCRIT 24.6 % (37.0-47.0); HEMOGLOBIN 7.5 G/DL (12.0-16.0); MEAN CORPUSCULAR VOLUME 87 FL (80-99); PLATELET COUNT 369 K/UL (150-450); RED BLOOD COUNT 2.83 M/UL (4.20-5.40); RED CELL DISTRIBUTION WIDTH 16.6 % (11.6-14.8); WHITE BLOOD COUNT 5.4 K/UL (4.8-10.8)
[2020-04-14 09:09] LABS: ANION GAP 8 mmol/L (5-15); BLOOD UREA NITROGEN 10 mg/dL (7-18); CARBON DIOXIDE 26 MMOL/L (21-32); CHLORIDE 104 MMOL/L (98-107); POTASSIUM 3.3 MMOL/L (3.5-5.1); SODIUM 138 MMOL/L (136-145)
[2020-04-14] MEDS ORDERED: Metoclopramide 10mg/2ml Inj IVP PRN (09:15)
--- NOTE | 2020-04-14 09:53 | Pulmonology Progress Note ---
Subjective ROS Limited/Unobtainable: No Skin: Denies: rash Musculoskeletal: Denies: pain Allergies: Coded Allergies: LISINOPRIL (Verified Allergy, Unknown, Hives, 04/12/14) All Systems: reviewed and negative except above Objective Last 24 Hour Vital Signs Date Time Temp Pulse Resp B/P (MAP) Pulse Ox O2 Delivery O2 Flow Rate FiO2 04/14/20 08:24 98.2 101 20 123/61 (81) 99 04/14/20 05:43 156/69 04/14/20 05:27 90 156/69 04/14/20 04:00 98.6 99 20 173/63 (99) 92 04/14/20 04:00 90 04/14/20 02:32 98.6 04/14/20 00:00 98.6 100 23 156/69 (98) 95 04/14/20 00:00 95 04/13/20 23:43 98.6 04/13/20 21:39 98.6 04/13/20 21:11 99 167/68 04/13/20 21:10 167/68 04/13/20 21:00 Nasal Cannula 1.0 04/13/20 20:00 101.3 99 22 167/66 (99) 94 04/13/20 20:00 114 04/13/20 16:00 96.6 19 143/56 (85) 98 04/13/20 16:00 114 04/13/20 14:36 54 14 98 04/13/20 14:35 107 182/77 04/13/20 14:33 182/77 04/13/20 13:55 99.1 98 20 159/86 100 Room Air 04/13/20 13:45 99 15 154/83 100 Room Air 04/13/20 13:35 98 15 161/70 100 Room Air 04/13/20 13:34 96 14 99 04/13/20 13:30 98.7 96 15 149/78 100 Room Air 04/13/20 12:00 89 04/13/20 11:40 97.8 88 18 140/80 (100) 97 Intake and Output 04/13/20 04/14/20 19:00 07:00 Intake Total 2745 ml Output Total 4000 ml Balance -1255 ml Intake Oral 480 ml Free Water 50 ml IV Total 160 ml Tube Feeding 55 ml Other 2000 ml Output Urine Total 2800 ml Stool Total 1200 ml # Voids 2 2 # Bowel Movements 2 Objective deferred due to COVID Microbiology Date/Time Source Procedure Growth Status 04/12/20 10:12 Nasopharynx SARS-CoV-2 RdRp Gene Assay - Final Complete 04/12/20 18:30 Stool Clostridium difficile Toxin Assay - Final Complete 04/12/20 18:30 External Cath Urine Culture - Final NO GROWTH AFTER 48 HOURS Complete Laboratory Tests 04/14/20 07:10: White Blood Count 5.4, Red Blood Count 2.83L, Hemoglobin 7.5L, Hematocrit 24.6L , Mean Corpuscular Volume 87, Mean Corpuscular Hemoglobin 26.6L, Mean Corpuscular Hemoglobin Concent 30.5L, Red Cell Distribution Width 16.6H, Platelet Count 369, Mean Platelet Volume 6.1L, Neutrophils (%) (Auto) , Lymphocytes (%) (Auto) , Monocytes (%) (Auto) , Eosinophils (%) (Auto) , Basophils (%) (Auto) , Neutrophils % (Manual) [Pending], Lymphocytes % (Manual) [Pending], Platelet Estimate [Pending], Platelet Morphology [Pending], Sodium Level 138, Potassium Level 3.3L, Chloride Level 104, Carbon Dioxide Level 26, Anion Gap 8, Blood Urea Nitrogen 10, Creatinine 1.0, Estimat Glomerular Filtration Rate > 60, Glucose Level 100, Calcium Level 8.0L, Vancomycin Level Trough 19.3H Current Medications Medications (Trade) Dose Ordered Sig/Debbie Route PRN Reason Start Time Stop Time Status Last Admin Dose Admin Acetaminophen (Tylenol) 650 mg Q4H PRN ORAL Mild Pain (Pain Scale 1-3) 04/14/20 06:45 04/25/20 21:14 Acetaminophen (Tylenol) 650 mg Q4H PRN ORAL Temp >100.5 04/14/20 06:45 04/25/20 21:14 Acetaminophen/ Hydrocodone Bitart ([place] 10/325) 1 tab Q4H PRN ORAL severe pain 04/14/20 06:54 04/18/20 06:53 Acetaminophen/ Hydrocodone Bitart ([place] 5/325) 1 tab Q4H PRN ORAL Moderate Pain (Pain Scale 4-6) 04/14/20 06:56 04/16/20 06:55 Al Hydroxide/Mg Hydroxide (Mylanta II) 30 ml Q6H PRN ORAL dyspepsia 04/14/20 06:50 04/25/20 06:49 Amiodarone HCl (Cordarone) 200 mg DAILY ORAL 04/14/20 09:00 07/05/20 20:59 04/14/20 08:36 Bisacodyl (Dulcolax) 10 mg HSPRN PRN RECTAL Constipation 04/14/20 06:50 06/24/20 06:49 Chlorhexidine Gluconate (Laurie-Hex 2%) 1 applic DAILY@2000 TOPIC 04/14/20 20:00 06/26/20 19:59 Dextrose (Dextrose 50%) 25 ml Q30M PRN IV Hypoglycemia 04/14/20 06:45 06/24/20 21:14 Dextrose (Dextrose 50%) 50 ml Q30M PRN IV Hypoglycemia 04/14/20 06:45 06/24/20 21:14 Dextrose/ Electrolytes 1,000 ml @ 75 mls/hr [id number] IV 04/14/20 08:00 05/11/20 07:59 04/14/20 08:34 Diltiazem HCl (Cardizem) 90 mg EVERY 8 HOURS ORAL 04/14/20 14:00 05/04/20 14:59 Diphenhydramine HCl (Benadryl) 25 mg Q6H PRN ORAL Itching/Pruritis 04/14/20 06:53 04/25/20 06:52 Docusate Sodium (Colace) 100 mg Q12HR ORAL 04/14/20 09:00 04/29/20 08:59 Furosemide (Lasix) 40 mg EVERY 12 HOURS IV 04/14/20 09:00 05/09/20 20:59 04/14/20 08:35 Gabapentin (Neurontin) 300 mg BEDTIME ORAL 04/14/20 21:00 04/26/20 20:59 Hydralazine HCl (Apresoline) 100 mg Q8HR ORAL 04/14/20 14:00 07/10/20 21:59 Magnesium Hydroxide (Mom) 30 ml HSPRN PRN ORAL Constipation 04/14/20 07:02 05/14/20 07:01 Meropenem 1 gm/ Sodium Chloride 100 ml @ 200 mls/hr Q8HR IVPB 04/14/20 14:00 04/18/20 05:59 Metoclopramide HCl (Reglan) 10 mg Q6H PRN IVP Nausea & Vomiting 04/14/20 09:15 04/25/20 21:14 Micafungin Sodium 100 mg/Sodium Chloride 100 ml @ 100 mls/hr Q24H IVPB 04/14/20 20:00 04/16/20 19:59 Morphine Sulfate (Morphine Sulfate) 2 mg Q4H PRN IVP Breakthrough pain 5-10 04/14/20 07:03 04/15/20 07:02 Morphine Sulfate (Morphine Sulfate) 4 mg Q4H PRN IVP Severe Pain (Pain Scale 7-10) 04/14/20 07:12 04/15/20 07:11 04/14/20 08:37 Ondansetron HCl (Zofran) 4 mg Q6H PRN IVP Nausea & Vomiting 04/14/20 07:04 04/25/20 07:03 Pantoprazole (Protonix) 40 mg DAILY IVP 04/14/20 09:00 05/01/20 08:59 04/14/20 08:35 Polyethylene Glycol (Miralax) 17 gm HSPRN PRN ORAL Constipation 04/14/20 07:04 05/14/20 07:03 Polymyxin B Sulfate 488463 units/Dextrose 550 ml @ 550 mls/hr EVERY 12 HOURS IVPB 04/14/20 09:00 04/17/20 11:59 Rivaroxaban (Xarelto) 15 mg DAILY ORAL 04/14/20 09:00 06/29/20 08:59 04/14/20 08:36 Vancomycin HCl (Vanco pharmacy to dose) 1 ea DAILY PRN MISC Per rx protocol 04/14/20 09:00 05/12/20 17:44 Vancomycin HCl 1 gm/Dextrose 275 ml @ 183.708 mls/hr Q12H IVPB 04/14/20 08:00 04/18/20 07:59 04/14/20 08:34 Assessment/Plan Assessment/Plan IMPRESSION: 1. Hyperkalemia. Corrected 2. Tachycardia; resolved 3. Sepsis 4. Hypertension. 5. Seizure disorder. 6. Acute renal failure. 7. Respiratory failure; extubated 04/05/20 PLAN care noted still with infiltrates oxygen as is hope to see improvement monitor for respiratory deterioration full code impression, plan, and exam edited and reviewed in detail care discussed with Bobo Roland MD Apr 14, 2020 09:53
[2020-04-14] MEDS: Polymyxin B Sulfate 500,000 UNITS in D5W 500ml 550 ML IVPB SCH ×2 (10:45→19:59)
--- NOTE | 2020-04-14 11:52 | Surgery Progress Note ---
Surgery Progress Note Subjective Symptoms: improved, tolerating diet, voiding well, passing flatus Additional Comments intermittent fevers Objective Last 24 Hour Vital Signs Date Time Temp Pulse Resp B/P (MAP) Pulse Ox O2 Delivery O2 Flow Rate FiO2 04/14/20 08:24 98.2 101 20 123/61 (81) 99 04/14/20 05:43 156/69 04/14/20 05:27 90 156/69 04/14/20 04:00 98.6 99 20 173/63 (99) 92 04/14/20 04:00 90 04/14/20 02:32 98.6 04/14/20 00:00 98.6 100 23 156/69 (98) 95 04/14/20 00:00 95 04/13/20 23:43 98.6 04/13/20 21:39 98.6 04/13/20 21:11 99 167/68 04/13/20 21:10 167/68 04/13/20 21:00 Nasal Cannula 1.0 04/13/20 20:00 101.3 99 22 167/66 (99) 94 04/13/20 20:00 114 04/13/20 16:00 96.6 19 143/56 (85) 98 04/13/20 16:00 114 04/13/20 14:36 54 14 98 04/13/20 14:35 107 182/77 04/13/20 14:33 182/77 04/13/20 13:55 99.1 98 20 159/86 100 Room Air 04/13/20 13:45 99 15 154/83 100 Room Air 04/13/20 13:35 98 15 161/70 100 Room Air 04/13/20 13:34 96 14 99 04/13/20 13:30 98.7 96 15 149/78 100 Room Air 04/13/20 12:00 89 I&O Intake and Output 04/13/20 04/14/20 19:00 07:00 Intake Total 2745 ml Output Total 4000 ml Balance -1255 ml Intake Oral 480 ml Free Water 50 ml IV Total 160 ml Tube Feeding 55 ml Other 2000 ml Output Urine Total 2800 ml Stool Total 1200 ml # Voids 2 2 # Bowel Movements 2 Dressing: saturated Wound: clean Cardiovascular: RSR Respiratory: clear Abdomen: soft, non-tender, present bowel sounds Extremities: no edema, no tenderness, no cyanosis Laboratory Tests Test 04/14/20 07:10 White Blood Count 5.4 K/UL (4.8-10.8) Red Blood Count 2.83 M/UL (4.20-5.40) L Hemoglobin 7.5 G/DL (12.0-16.0) L Hematocrit 24.6 % (37.0-47.0) L Mean Corpuscular Volume 87 FL (80-99) Mean Corpuscular Hemoglobin 26.6 PG (27.0-31.0) L Mean Corpuscular Hemoglobin Concent 30.5 G/DL (32.0-36.0) L Red Cell Distribution Width 16.6 % (11.6-14.8) H Platelet Count 369 K/UL (150-450) Mean Platelet Volume 6.1 FL (6.5-10.1) L Neutrophils (%) (Auto) % (45.0-75.0) Lymphocytes (%) (Auto) % (20.0-45.0) Monocytes (%) (Auto) % (1.0-10.0) Eosinophils (%) (Auto) % (0.0-3.0) Basophils (%) (Auto) % (0.0-2.0) Differential Total Cells Counted 100 Neutrophils % (Manual) 65 % (45-75) Lymphocytes % (Manual) 26 % (20-45) Monocytes % (Manual) 7 % (1-10) Eosinophils % (Manual) 2 % (0-3) Basophils % (Manual) 0 % (0-2) Band Neutrophils 0 % (0-8) Platelet Estimate Adequate Platelet Morphology Normal Hypochromasia 1+ Anisocytosis 1+ Sodium Level 138 MMOL/L (136-145) Potassium Level 3.3 MMOL/L (3.5-5.1) L Chloride Level 104 MMOL/L (98-107) Carbon Dioxide Level 26 MMOL/L (21-32) Anion Gap 8 mmol/L (5-15) Blood Urea Nitrogen 10 mg/dL (7-18) Creatinine 1.0 MG/DL (0.55-1.30) Estimat Glomerular Filtration Rate > 60 mL/min (>60) Glucose Level 100 MG/DL (74-106) Calcium Level 8.0 MG/DL (8.5-10.1) L Vancomycin Level Trough 19.3 ug/mL (5.0-12.0) H Plan Problems: (1) Atrial flutter (2) Hypertension (3) Acute encephalopathy (4) VENTURA (acute kidney injury) (5) Acute and chronic respiratory failure with hypoxia (6) Abscess (7) Fistula (8) Sciatica neuralgia (9) Uncontrolled seizures (10) Forgetfulness (11) Sacral decubitus ulcer Assessment & Plan: Patient identified to have a sacral deep tissue injury upon admission Currently intensive care unit on support Care plan initiated (12) Chronic back pain (13) Overdose of opiate or related narcotic (14) Cellulitis of left leg (15) Pericolonic abscess due to diverticulitis (16) Ventral incisional hernia Assessment & Plan: History of colon resection colostomy Ventral incisional hernia reducible No acute invention monitor parastomal hernia stable ostomy viable and functional no acute intervention planned (17) Chronic pain of both knees (18) Dehydration (19) Hyperkalemia (20) Sepsis Assessment & Plan: Patient admitted identified to have sepsis leukocytosis tachycardia abnormal labs lactic acidosis. Chest x-ray reviewed. Imaging noted. Micro noted. Intensive care unit on support appreciate ICU care Nutritional optimization IV fluids IV antibiotics as per infectious disease tube feeds once stable will follow with recommendations thank you for letting participate patient's care Urosepsis on abx extubated improving downgrade upper ext edema noted US on coag as per heme Patient reports not liking current diet texture of Moist Puree with Thin Liquids. Patient completed PO intake of solids (crackers), Patient's swallow is grossly functional. Plan: 1. Upgrade Diet Texture to Soft Solids and continue Thin Liquids; type/ supplements per RD. 2. Nursing to assist Patient with oral care BID. DAILY ESTIMATED NEEDS: Needs based on Pulmonary, sepsis, wound, VENTURA 75.8kg adj 20-30 kcals/kg 6436-9776 total kcals 1.25-1.5 g protein/kg 94-114 g total protein 25-30 mL/kg 6050-7315 total fluid mLs NUTRITION DIAGNOSIS: Swallowing difficulty r/t respiratory status as evidenced by pt orally intubated, on NGT feeds-> now extubated, pending GARDENER eval. PO DIET RECOMMENDATIONS-->>> Cardiac diet / texture per GARDENER ENTERAL NUTRITION RECOMMENDATIONS: VITAL AF 1.2 @55ml/hr x24 hrs to provide 1320ml, 1584 kcal, 99g pro, 1071ml free H2O - Maintain at goal as tolerated if not cleared for oral diet by GARDENER - Flush per MD/ HOB over 30 degree ADDITIONAL RECOMMENDATIONS: 1) Maintain calibrated bed scale wts (248lbs vs 217lbs last adm) 2) Monitor renal fxn and lytes closely, need for renal formula Creat wnl; lytes low (K,phos,mg) 3) Wound healing: ZnSO4 220mg QD x 10 days+ Boris BID via NGT hold vit C until renal fxn improves 4) NISS w/ TF, h/o DM 5) Monitor po intake if cleared for oral diet; need for snacks/supplements Julian Iglesias Apr 14, 2020 11:52
[2020-04-14 12:00] VITALS: BP 135/65
--- NOTE | 2020-04-14 12:56 | Nephrology Progress Note ---
Assessment/Plan Plan #VENTURA due to ATN in the setting of rhabdo- on CKD #hyperkalemia #Rhabdo #UTI sepsis #Lactic acidsis #AMS - toxic metabolic encephalopathy #Hypoxemic resp failure #afib with RVR #HLD #Obesity - lasix 40 IV BID - monitor UOP - replete lytes - monitor K,bmp - plan for EGD/colo - weiss placed - strict I&Os - cardiology eval - amiodarone, diltiazem - s/p IV iron - monitor hemoglobin - norco dose adjuested - ID consult- - antibiotics per ID - follow cx - monitor BMP, mag and phos daily - PT 30 minutes of critical care time- greater than 50% on care coordination and counseling Subjective ROS Limited/Unobtainable: No Constitutional: Reports: malaise, weakness HEENT: Denies: no symptoms, eye pain, blurred vision, tearing, double vision, ear pain, ear discharge, nose pain, nose congestion, throat pain, throat swelling, mouth pain, mouth swelling, other Genitourinary: Denies: no symptoms, burning, discharge, frequency, flank pain, hematuria, incontinence, pain, urgency, other Neurologic/Psychiatric: Denies: no symptoms, anxiety, depressed, emotional problems, headache, numbness, paresthesia, pre-existing deficit, seizure, tingling, tremors, weakness, other Subjective Cr stable very weak evaluated by GI s/p colo and EGD complains of leg pain increased [place] dose Objective Objective Last 24 Hour Vital Signs Date Time Temp Pulse Resp B/P (MAP) Pulse Ox O2 Delivery O2 Flow Rate FiO2 04/14/20 08:24 98.2 101 20 123/61 (81) 99 04/14/20 05:43 156/69 04/14/20 05:27 90 156/69 04/14/20 04:00 98.6 99 20 173/63 (99) 92 04/14/20 04:00 90 04/14/20 02:32 98.6 04/14/20 00:00 98.6 100 23 156/69 (98) 95 04/14/20 00:00 95 04/13/20 23:43 98.6 04/13/20 21:39 98.6 04/13/20 21:11 99 167/68 04/13/20 21:10 167/68 04/13/20 21:00 Nasal Cannula 1.0 04/13/20 20:00 101.3 99 22 167/66 (99) 94 04/13/20 20:00 114 04/13/20 16:00 96.6 19 143/56 (85) 98 04/13/20 16:00 114 04/13/20 14:36 54 14 98 04/13/20 14:35 107 182/77 04/13/20 14:33 182/77 04/13/20 13:55 99.1 98 20 159/86 100 Room Air 04/13/20 13:45 99 15 154/83 100 Room Air 04/13/20 13:35 98 15 161/70 100 Room Air 04/13/20 13:34 96 14 99 04/13/20 13:30 98.7 96 15 149/78 100 Room Air Intake and Output 04/13/20 04/14/20 19:00 07:00 Intake Total 2745 ml Output Total 4000 ml Balance -1255 ml Intake Oral 480 ml Free Water 50 ml IV Total 160 ml Tube Feeding 55 ml Other 2000 ml Output Urine Total 2800 ml Stool Total 1200 ml # Voids 2 2 # Bowel Movements 2 Laboratory Tests 04/14/20 07:10: White Blood Count 5.4, Red Blood Count 2.83L, Hemoglobin 7.5L, Hematocrit 24.6L , Mean Corpuscular Volume 87, Mean Corpuscular Hemoglobin 26.6L, Mean Corpuscular Hemoglobin Concent 30.5L, Red Cell Distribution Width 16.6H, Platelet Count 369, Mean Platelet Volume 6.1L, Neutrophils (%) (Auto) , Lymphocytes (%) (Auto) , Monocytes (%) (Auto) , Eosinophils (%) (Auto) , Basophils (%) (Auto) , Differential Total Cells Counted 100, Neutrophils % ( Manual) 65, Lymphocytes % (Manual) 26, Monocytes % (Manual) 7, Eosinophils % ( Manual) 2, Basophils % (Manual) 0, Band Neutrophils 0, Platelet Estimate Adequate, Platelet Morphology Normal, Hypochromasia 1+, Anisocytosis 1+, Sodium Level 138, Potassium Level 3.3L, Chloride Level 104, Carbon Dioxide Level 26, Anion Gap 8, Blood Urea Nitrogen 10, Creatinine 1.0, Estimat Glomerular Filtration Rate > 60, Glucose Level 100, Calcium Level 8.0L, Vancomycin Level Trough 19.3H Height (Feet): 5 Height (Inches): 8.00 Weight (Pounds): 294 Objective General Appearance: no distress Lines, tubes and drains: peripheral HEENT: normocephalic, atraumatic Neck: non-tender, normal alignment, supple Respiratory/Chest: lungs clear Cardiovascular/Chest: normal peripheral pulses, tachycardia, irregularly irregular Abdomen: soft Skin Exam: normal pigmentation Neurologic: nonfocal Venkat Montes M.D. Apr 14, 2020 12:56
--- NOTE | 2020-04-14 14:08 | Cardiac Electrophysiology PN ---
Assessment/Plan Assessment/Plan 1. Atrial flutter with rapid ventricular response of 170s. On Cardizem 90 OG tid and amiodarone 200 po daily On Xarelto 15 mg daily but is on hold for rectal bleeding for EGD nd colonoscopy tomorrow. Would benefit from atrial flutter ablation when stable Patient couldn't complete the stress test. 2. Hypertension. On Cardizem 3. S/P Respiratory failure, extubated 4. Acute renal failure, that is improving. 5. Normal left ventricular systolic function by echo on March 26, 2020, with EF of 55%. 6. Severe bilateral LE edema. On Lasix 40 iv bid. Bilateral LE duplex, showed no DVT 7. Rectal bleed, Xarelto on hold.S/P EGD and Colonoscopy by Dr deb MATA RN Subjective Subjective On PO Amiodarone and Cardizem. Stress test cancelled as she couldn't tolerate it. Had EGD and colonoscopy for positive OB by Dr Deb ARCOS in room. Being Ruled out for Covid Objective Last 24 Hour Vital Signs Date Time Temp Pulse Resp B/P (MAP) Pulse Ox O2 Delivery O2 Flow Rate FiO2 04/14/20 13:44 135/65 04/14/20 13:44 99 135/65 04/14/20 12:00 98.6 99 20 135/65 (88) 99 04/14/20 09:00 Nasal Cannula 1.0 04/14/20 08:24 98.2 101 20 123/61 (81) 99 04/14/20 05:43 156/69 04/14/20 05:27 90 156/69 04/14/20 04:00 98.6 99 20 173/63 (99) 92 04/14/20 04:00 90 04/14/20 02:32 98.6 04/14/20 00:00 98.6 100 23 156/69 (98) 95 04/14/20 00:00 95 04/13/20 23:43 98.6 04/13/20 21:39 98.6 04/13/20 21:11 99 167/68 04/13/20 21:10 167/68 04/13/20 21:00 Nasal Cannula 1.0 04/13/20 20:00 101.3 99 22 167/66 (99) 94 04/13/20 20:00 114 04/13/20 16:00 96.6 19 143/56 (85) 98 04/13/20 16:00 114 04/13/20 14:36 54 14 98 04/13/20 14:35 107 182/77 04/13/20 14:33 182 Intake and Output 04/13/20 04/14/20 19:00 07:00 Intake Total 2745 ml Output Total 4000 ml Balance -1255 ml Intake Oral 480 ml Free Water 50 ml IV Total 160 ml Tube Feeding 55 ml Other 2000 ml Output Urine Total 2800 ml Stool Total 1200 ml # Voids 2 2 # Bowel Movements 2 Laboratory Tests Test 04/14/20 07:10 White Blood Count 5.4 K/UL (4.8-10.8) Red Blood Count 2.83 M/UL (4.20-5.40) L Hemoglobin 7.5 G/DL (12.0-16.0) L Hematocrit 24.6 % (37.0-47.0) L Mean Corpuscular Volume 87 FL (80-99) Mean Corpuscular Hemoglobin 26.6 PG (27.0-31.0) L Mean Corpuscular Hemoglobin Concent 30.5 G/DL (32.0-36.0) L Red Cell Distribution Width 16.6 % (11.6-14.8) H Platelet Count 369 K/UL (150-450) Mean Platelet Volume 6.1 FL (6.5-10.1) L Neutrophils (%) (Auto) % (45.0-75.0) Lymphocytes (%) (Auto) % (20.0-45.0) Monocytes (%) (Auto) % (1.0-10.0) Eosinophils (%) (Auto) % (0.0-3.0) Basophils (%) (Auto) % (0.0-2.0) Differential Total Cells Counted 100 Neutrophils % (Manual) 65 % (45-75) Lymphocytes % (Manual) 26 % (20-45) Monocytes % (Manual) 7 % (1-10) Eosinophils % (Manual) 2 % (0-3) Basophils % (Manual) 0 % (0-2) Band Neutrophils 0 % (0-8) Platelet Estimate Adequate Platelet Morphology Normal Hypochromasia 1+ Anisocytosis 1+ Sodium Level 138 MMOL/L (136-145) Potassium Level 3.3 MMOL/L (3.5-5.1) L Chloride Level 104 MMOL/L (98-107) Carbon Dioxide Level 26 MMOL/L (21-32) Anion Gap 8 mmol/L (5-15) Blood Urea Nitrogen 10 mg/dL (7-18) Creatinine 1.0 MG/DL (0.55-1.30) Estimat Glomerular Filtration Rate > 60 mL/min (>60) Glucose Level 100 MG/DL (74-106) Calcium Level 8.0 MG/DL (8.5-10.1) L Vancomycin Level Trough 19.3 ug/mL (5.0-12.0) H Microbiology Date/Time Source Procedure Growth Status 04/12/20 10:12 Nasopharynx SARS-CoV-2 RdRp Gene Assay - Final Complete 04/12/20 18:30 Stool Clostridium difficile Toxin Assay - Final Complete 04/12/20 18:30 External Cath Urine Culture - Final NO GROWTH AFTER 48 HOURS Complete Objective NECK: No JVD LUNGS: Coarse rhonchi. CARDIOVASCULAR: Regular S1 and S2 with no gallop. ABDOMEN: Soft. EXTREMITIES: No pitting edema. Carlos Dean MD Apr 14, 2020 14:07
[2020-04-14] MEDS ORDERED: Methocarbamol 500mg tab ORAL PRN (14:30)
--- NOTE | 2020-04-14 14:43 | Infectious Diseases Prog Note ---
Assessment/Plan Assessment/Plan ASSESSMENT AND PLAN: 1. esbl e.coli pna/acinetobacter pna, uti, sepsis, fevers, leukocytosis, a.flutter, respiratory failure, atx, dony, + ua, atx fungemia risk ? recurrent sepsis, persistent fevers - fevers better, cultures negative, chest x-ray stable, repeat covid-19 test ordered - polymyxin, micafungin and vancomycin x 5 days - 2 week tx course for MDR pna - f/u on cultures - covid-19 testing negative x 3 - monitor labs - d/w RN and patient 2. Respiratory failure, on vent. 3. Renal failure. 4. Diabetes. 5. Hypertension. 6. Diabetes and hypertension, treatment per primary care team. 7. Patient with history of altered mental status. 8. Seizure history. 9. Chronic neck pain. 10. Acute kidney injury and renal failure. 11. Allergies to lisinopril. 12. Social history is negative. 13. Family history is noncontributory. 14. MAR was noted. 15. Case was discussed with RN. 16. ICU care. 17. Skin care. 18. Continue treatment per primary consultants. Subjective Constitutional: Reports: other - last fever yesterday ; Denies: fever HEENT: Denies: congestion Respiratory: Denies: shortness of breath Cardiovascular: Denies: chest pain Gastrointestinal/Abdominal: Denies: nausea, vomiting, diarrhea Genitourinary: Reports: other - + weiss Neurologic: Denies: headache Psychiatric: Denies: depression Skin: Denies: rash Hematologic: Denies: bleeding Musculoskeletal: Denies: pain Allergies: Coded Allergies: LISINOPRIL (Verified Allergy, Unknown, Hives, 04/12/14) Objective Last 24 Hour Vital Signs Date Time Temp Pulse Resp B/P (MAP) Pulse Ox O2 Delivery O2 Flow Rate FiO2 04/14/20 13:44 135/65 04/14/20 13:44 99 135/65 04/14/20 12:00 98.6 99 20 135/65 (88) 99 04/14/20 09:00 Nasal Cannula 1.0 04/14/20 08:24 98.2 101 20 123/61 (81) 99 04/14/20 05:43 156/69 04/14/20 05:27 90 156/69 04/14/20 04:00 98.6 99 20 173/63 (99) 92 04/14/20 04:00 90 04/14/20 02:32 98.6 04/14/20 00:00 98.6 100 23 156/69 (98) 95 04/14/20 00:00 95 04/13/20 23:43 98.6 04/13/20 21:39 98.6 04/13/20 21:11 99 167/68 04/13/20 21:10 167/68 04/13/20 21:00 Nasal Cannula 1.0 04/13/20 20:00 101.3 99 22 167/66 (99) 94 04/13/20 20:00 114 04/13/20 16:00 96.6 19 143/56 (85) 98 04/13/20 16:00 114 04/13/20 14:36 54 14 98 04/13/20 14:35 107 182/77 04/13/20 14:33 182/77 Height (Feet): 5 Height (Inches): 8.00 Weight (Pounds): 294 General Appearance: no acute distress HEENT: normocephalic, atraumatic, anicteric, mucous membranes moist Respiratory/Chest: no accessory muscle use, crackles/rales, rhonchi - bilaterally Cardiovascular: normal rate, regular rhythm, no gallop/murmur, no JVD Abdomen: normal bowel sounds, soft, non tender, no organomegaly, non distended Genitourinary: other - + weiss - urine slt cloudy Extremities: no cyanosis Skin: no rash Neurologic/Psychiatric: flight agent II-XII grossly normal, alert, responsive Lymphatic: no neck adenopathy Musculoskeletal: no effusion Chest x-ray - 03/29/20 - Procedure: XRAY Chest 1v Indication: Shortness of breath Technique: One view of the chest Comparison: 03/28/2020 post PICC radiograph Findings: Stable satisfactory positions of endotracheal tube, orogastric tube, left arm PICC. There is some increased atelectasis at the right lung base. There is minimal left basilar atelectasis as well. The heart size is normal. Impression: Increased right basilar atelectasis. Otherwise little pipe changer one day, findings as noted 04/03/20 - Procedure: XRAY Chest 1v Procedure: XRAY Chest 1v Reason for study: Shortness of breath. Comparison films: 03/29/2020. FINDINGS: Endotracheal tube, NG tube and left PICC line remain in place. Vascularity is normal. There is worsening of bilateral infiltrates. Cardiac and mediastinal silhouette are within normal limits. CP angles are sharp. The bony thorax appear unremarkable. IMPRESSION: Worsening of bilateral infiltrates. Chest x-ray - 04/07/20 - IMPRESSION: Worsening left lung infiltrates with unchanged right lung infiltrates. Chest x-ray - 04/09/20 - Procedure: XRAY Chest 1v Procedure: XRAY Chest 1v Reason for study: Shortness of breath. Comparison films: 04/09/2020. FINDINGS: A single one view chest is obtained. Vascularity is normal. Bilateral infiltrates not significantly changed. Cardiac and mediastinal silhouette are within normal limits. There is decreased left effusion. The bony thorax appear unremarkable. IMPRESSION: No significant change bilateral infiltrates. Decreased left effusion. Chest x-ray - 04/11/20 - Procedure: XRAY Chest 1v Procedure: XRAY Chest 1v Reason for study: Shortness of breath. Comparison films: 04/09/2020. FINDINGS: A single one view chest is obtained. Vascularity is normal. Bilateral infiltrates not significantly changed. Cardiac and mediastinal silhouette are within normal limits. There is decreased left effusion. The bony thorax appear unremarkable. IMPRESSION: No significant change bilateral infiltrates. Decreased left effusion. Chest x-ray - 04/13/20 - Procedure: XRAY Chest 1v Procedure: XRAY Chest 1v Reason for study: Reason For Exam: SOB Comparison films: 04/11/2020. FINDINGS: A single one view chest is obtained. Vascularity is normal. No significant change bilateral infiltrates. Cardiac and mediastinal silhouette are within normal limits. Small left effusion unchanged. The bony thorax appear unremarkable. IMPRESSION: NO SIGNIFICANT CHANGE COMPARED TO PREVIOUS EXAM. Microbiology Date/Time Source Procedure Growth Status 04/12/20 10:12 Nasopharynx SARS-CoV-2 RdRp Gene Assay - Final Complete 04/12/20 18:30 Stool Clostridium difficile Toxin Assay - Final Complete 04/12/20 18:30 External Cath Urine Culture - Final NO GROWTH AFTER 48 HOURS Complete Laboratory Tests Test 04/14/20 07:10 White Blood Count 5.4 K/UL (4.8-10.8) Red Blood Count 2.83 M/UL (4.20-5.40) L Hemoglobin 7.5 G/DL (12.0-16.0) L Hematocrit 24.6 % (37.0-47.0) L Mean Corpuscular Volume 87 FL (80-99) Mean Corpuscular Hemoglobin 26.6 PG (27.0-31.0) L Mean Corpuscular Hemoglobin Concent 30.5 G/DL (32.0-36.0) L Red Cell Distribution Width 16.6 % (11.6-14.8) H Platelet Count 369 K/UL (150-450) Mean Platelet Volume 6.1 FL (6.5-10.1) L Neutrophils (%) (Auto) % (45.0-75.0) Lymphocytes (%) (Auto) % (20.0-45.0) Monocytes (%) (Auto) % (1.0-10.0) Eosinophils (%) (Auto) % (0.0-3.0) Basophils (%) (Auto) % (0.0-2.0) Differential Total Cells Counted 100 Neutrophils % (Manual) 65 % (45-75) Lymphocytes % (Manual) 26 % (20-45) Monocytes % (Manual) 7 % (1-10) Eosinophils % (Manual) 2 % (0-3) Basophils % (Manual) 0 % (0-2) Band Neutrophils 0 % (0-8) Platelet Estimate Adequate Platelet Morphology Normal Hypochromasia 1+ Anisocytosis 1+ Sodium Level 138 MMOL/L (136-145) Potassium Level 3.3 MMOL/L (3.5-5.1) L Chloride Level 104 MMOL/L (98-107) Carbon Dioxide Level 26 MMOL/L (21-32) Anion Gap 8 mmol/L (5-15) Blood Urea Nitrogen 10 mg/dL (7-18) Creatinine 1.0 MG/DL (0.55-1.30) Estimat Glomerular Filtration Rate > 60 mL/min (>60) Glucose Level 100 MG/DL (74-106) Calcium Level 8.0 MG/DL (8.5-10.1) L Vancomycin Level Trough 19.3 ug/mL (5.0-12.0) H Current Medications Medications (Trade) Dose Ordered Sig/Debbie Route PRN Reason Start Time Stop Time Status Last Admin Dose Admin Acetaminophen (Tylenol) 650 mg Q4H PRN ORAL Mild Pain (Pain Scale 1-3) 04/14/20 06:45 04/25/20 21:14 Acetaminophen (Tylenol) 650 mg Q4H PRN ORAL Temp >100.5 04/14/20 06:45 04/25/20 21:14 Acetaminophen/ Hydrocodone Bitart ([place] 10/325) 1 tab Q4H PRN ORAL severe pain 04/14/20 06:54 04/18/20 06:53 Acetaminophen/ Hydrocodone Bitart ([place] 5/325) 1 tab Q4H PRN ORAL Moderate Pain (Pain Scale 4-6) 04/14/20 06:56 04/16/20 06:55 Al Hydroxide/Mg Hydroxide (Mylanta II) 30 ml Q6H PRN ORAL dyspepsia 04/14/20 06:50 04/25/20 06:49 Amiodarone HCl (Cordarone) 200 mg DAILY ORAL 04/14/20 09:00 07/05/20 20:59 04/14/20 08:36 Bisacodyl (Dulcolax) 10 mg HSPRN PRN RECTAL Constipation 04/14/20 06:50 06/24/20 06:49 Chlorhexidine Gluconate (Laurie-Hex 2%) 1 applic DAILY@1999 TOPIC 04/14/20 20:00 06/26/20 19:59 Dextrose (Dextrose 50%) 25 ml Q30M PRN IV Hypoglycemia 04/14/20 06:45 06/24/20 21:14 Dextrose (Dextrose 50%) 50 ml Q30M PRN IV Hypoglycemia 04/14/20 06:45 06/24/20 21:14 Diltiazem HCl (Cardizem) 90 mg EVERY 8 HOURS ORAL 04/14/20 14:00 05/04/20 14:59 04/14/20 13:44 Diphenhydramine HCl (Benadryl) 25 mg Q6H PRN ORAL Itching/Pruritis 04/14/20 06:53 04/25/20 06:52 Docusate Sodium (Colace) 100 mg Q12HR ORAL 04/14/20 09:00 04/29/20 08:59 Furosemide (Lasix) 40 mg EVERY 12 HOURS IV 04/14/20 09:00 05/09/20 20:59 04/14/20 08:35 Gabapentin (Neurontin) 300 mg BEDTIME ORAL 04/14/20 21:00 04/26/20 20:59 Hydralazine HCl (Apresoline) 100 mg Q8HR ORAL 04/14/20 14:00 07/10/20 21:59 04/14/20 13:44 Magnesium Hydroxide (Mom) 30 ml HSPRN PRN ORAL Constipation 04/14/20 07:02 05/14/20 07:01 Meropenem 1 gm/ Sodium Chloride 100 ml @ 200 mls/hr Q8HR IVPB 04/14/20 14:00 04/18/20 05:59 04/14/20 13:45 Metoclopramide HCl (Reglan) 10 mg Q6H PRN IVP Nausea & Vomiting 04/14/20 09:15 04/25/20 21:14 Micafungin Sodium 100 mg/Sodium Chloride 100 ml @ 100 mls/hr Q24H IVPB 04/14/20 20:00 04/16/20 19:59 Morphine Sulfate (Morphine Sulfate) 2 mg Q4H PRN IVP Breakthrough pain 5-10 04/14/20 07:03 04/15/20 07:02 04/14/20 11:50 Morphine Sulfate (Morphine Sulfate) 4 mg Q4H PRN IVP Severe Pain (Pain Scale 7-10) 04/14/20 07:12 04/15/20 07:11 04/14/20 13:46 Ondansetron HCl (Zofran) 4 mg Q6H PRN IVP Nausea & Vomiting 04/14/20 07:04 04/25/20 07:03 Pantoprazole (Protonix) 40 mg DAILY IVP 04/14/20 09:00 05/01/20 08:59 04/14/20 08:35 Polyethylene Glycol (Miralax) 17 gm HSPRN PRN ORAL Constipation 04/14/20 07:04 05/14/20 07:03 Polymyxin B Sulfate 275198 units/Dextrose 550 ml @ 550 mls/hr EVERY 12 HOURS IVPB 04/14/20 09:00 04/17/20 11:59 04/14/20 10:45 Rivaroxaban (Xarelto) 15 mg DAILY ORAL 04/14/20 09:00 06/29/20 08:59 04/14/20 08:36 Vancomycin HCl (Vanco pharmacy to dose) 1 ea DAILY PRN MISC Per rx protocol 04/14/20 09:00 05/12/20 17:44 Vancomycin/Sodium Chloride 275 ml @ 137.5 mls/ hr Q24H IVPB 04/15/20 08:00 04/20/20 09:00 Jose Roman MD Apr 14, 2020 14:43
--- NOTE | 2020-04-14 14:46 | General Progress Note ---
Assessment/Plan Problem List: (1) VENTURA (acute kidney injury) ICD Codes: N17.9 - Acute kidney failure, unspecified SNOMED: 5781165, 09736937 (2) Acute encephalopathy ICD Codes: G93.40 - Encephalopathy, unspecified SNOMED: 2293902 (3) Hypertension ICD Codes: I10 - Essential (primary) hypertension SNOMED: 66806050 (4) Atrial flutter ICD Codes: I48.92 - Unspecified atrial flutter SNOMED: 8721202 (5) Sacral decubitus ulcer ICD Codes: L89.159 - Pressure ulcer of sacral region, unspecified stage SNOMED: 963704776 (6) Chronic back pain ICD Codes: M54.9 - Dorsalgia, unspecified; G89.29 - Other chronic pain SNOMED: 316084760 (7) Sepsis ICD Codes: A41.9 - Sepsis, unspecified organism SNOMED: 12568511 (8) Hyperkalemia ICD Codes: E87.5 - Hyperkalemia SNOMED: 93713057 Status: stable Assessment/Plan: # Pain - add robaxin for spasms - cont norco and morphine, change breakthrough to dilaudid # fever, on broad antibiotics for multiple infections resolved after addition of vancomycin 04/12- -Infectious disease following, appreciate recommendations -Follow-up blood culture, - 0 lactic acid, - UA, neg - chest x-ray stable - C. difficile if diarrhea.: Negative #Acute Hypoxic Resp Failure - s/p extubation and ICU course - now on NC - CT resp status - lasix per cards and renal - wean o2 #Afib w/ RVR, now in SR, off heparin gtt and on Xarelto - cont amiodarone , cardizem and hydralazine - Cardiology and EP following, appreciate recs - ischemic w/u and ablation prior to dc - DC AC given drop in Hb and + FOBT -> Trend CBC, transfuse for Hb < 7, GI consult (Dr Boyd), f/u rec's-> plan for EGD #Acute Renal Failure 2/2 ATN from Rhabo #Rhabdo - resolved - CTM - Nephrology following, appreciate recs #GI Bleed, Acute Anemia due to blood loss, Iron Deficient - GI following, appreciate recs - awaiting cardiology clearance for scope - fobt positive x 3 #Sepsis, HCAP/UTI, COVID negative , + ESBL; see above - Sputum w/ multiple MDR organisms, now requiring aggressive AB - Now Meropenem, Micagungin, Polymoxin, S/P Vancomyin, Cefepime, Flagyl #Seizure vs prolonged period of immobility # S/P Acute metabolic Encephalopathy #Hx of Colectomy w/ Colostomy DVT and GI ppx; xarelto , holding for bleeding Full Code Dispo 1-2d, pending rehab placement I spent 38min on this encounter w/ 19min on care/coordination and counseling I spent an additional 40 minutes on reviewing patient's chart from admission. This includes review of imaging, labs, notes, and interpretation of results. Subjective Date patient seen: Apr 14, 2020 Time patient seen: 14:00 Allergies: Coded Allergies: LISINOPRIL (Verified Allergy, Unknown, Hives, 04/12/14) Subjective tmax 101.3 last night no fevers today patient is "feeling unwell" pain worse today in BL LE and neck Objective Last 24 Hour Vital Signs Date Time Temp Pulse Resp B/P (MAP) Pulse Ox O2 Delivery O2 Flow Rate FiO2 04/14/20 13:44 135/65 04/14/20 13:44 99 135/65 04/14/20 12:00 98.6 99 20 135/65 (88) 99 04/14/20 09:00 Nasal Cannula 1.0 04/14/20 08:24 98.2 101 20 123/61 (81) 99 04/14/20 05:43 156/69 04/14/20 05:27 90 156/69 04/14/20 04:00 98.6 99 20 173/63 (99) 92 04/14/20 04:00 90 04/14/20 02:32 98.6 04/14/20 00:00 98.6 100 23 156/69 (98) 95 04/14/20 00:00 95 04/13/20 23:43 98.6 04/13/20 21:39 98.6 04/13/20 21:11 99 167/68 04/13/20 21:10 167/68 04/13/20 21:00 Nasal Cannula 1.0 04/13/20 20:00 101.3 99 22 167/66 (99) 94 04/13/20 20:00 114 04/13/20 16:00 96.6 19 143/56 (85) 98 04/13/20 16:00 114 Intake and Output 04/13/20 04/14/20 19:00 07:00 Intake Total 2745 ml Output Total 4000 ml Balance -1255 ml Intake Oral 480 ml Free Water 50 ml IV Total 160 ml Tube Feeding 55 ml Other 2000 ml Output Urine Total 2800 ml Stool Total 1200 ml # Voids 2 2 # Bowel Movements 2 Laboratory Tests 04/14/20 07:10: White Blood Count 5.4, Red Blood Count 2.83L, Hemoglobin 7.5L, Hematocrit 24.6L , Mean Corpuscular Volume 87, Mean Corpuscular Hemoglobin 26.6L, Mean Corpuscular Hemoglobin Concent 30.5L, Red Cell Distribution Width 16.6H, Platelet Count 369, Mean Platelet Volume 6.1L, Neutrophils (%) (Auto) , Lymphocytes (%) (Auto) , Monocytes (%) (Auto) , Eosinophils (%) (Auto) , Basophils (%) (Auto) , Differential Total Cells Counted 100, Neutrophils % ( Manual) 65, Lymphocytes % (Manual) 26, Monocytes % (Manual) 7, Eosinophils % ( Manual) 2, Basophils % (Manual) 0, Band Neutrophils 0, Platelet Estimate Adequate, Platelet Morphology Normal, Hypochromasia 1+, Anisocytosis 1+, Sodium Level 138, Potassium Level 3.3L, Chloride Level 104, Carbon Dioxide Level 26, Anion Gap 8, Blood Urea Nitrogen 10, Creatinine 1.0, Estimat Glomerular Filtration Rate > 60, Glucose Level 100, Calcium Level 8.0L, Vancomycin Level Trough 19.3H Height (Feet): 5 Height (Inches): 8.00 Weight (Pounds): 294 Objective GENERAL: No acute distress, appears comfortable, alert, obese, anasarca HEENT: NCAT, non-icteric eyes, pupils PERRLA Neck: No cervical lymphadenopathy, trachea midline CV: Regular rate and rhythm, no murmurs rubs or gallops RESP: Clear to auscultation bilaterally, no wheezes/rhonchi/crackles ABD: Ostomy noted with liquid hate colored stool, soft, non-distended, no TTP EXT: Normal muscle tone, +5/5 muscle strength, severe edema bilateral lower extremities NEURO: No obvious deficits, alert and oriented x3 Bell Tanner DO Apr 14, 2020 14:46
[2020-04-14 16:00] VITALS: BP 108/60
--- NOTE | 2020-04-14 17:43 | NUR ---
NURSE NOTES: IV infiltrated. Notified MD Tanner. PICC order placed. Unable to find peripheral IV access.
--- NOTE | 2020-04-14 18:44 | NUR ---
NURSE NOTES: Ice packs placed on bilat lower extremities.
--- NOTE | 2020-04-14 18:45 | NUR ---
NURSE NOTES: Colostomy bag changed, and weiss re-anchored.
--- NOTE | 2020-04-14 19:32 | NUR ---
HAND-OFF: Report given to JOSSELYN Correa.
--- NOTE | 2020-04-14 19:40 | NUR ---
NURSE NOTES: Report received from Rafat ARCOS. Patient is awake and alert x 4. Patient is currently noted to be on 1 liter of oxygen via nasal canula. Patient denies chest pain and shortness of breath at this time. Patient does have complaints of chronic pain her in her legs bilaterally. Will follow pain protocol for patient. Patient noted to have bileral upper extremity edema. Patient noted to have bilateral lower extremity edema. Patient noted to have no IV access at this time. Endorsed to Alexis ARCOS that several nurses attempted to place access today and had no success. Endorsed to Alexis ARCOS that Doctor Tanner is aware and ordered for a PICC line to be placed this coming Thursday. Consent not yet obtained. Patient noted to currently have ice packs on lower extremities bilaterally per MD orders. Patient noted to have indwelling weiss draining and patent. Patient noted to be on droplet and contact isolation due to covid 19 rule out. Patient previously had 3 negative test. Patient was tested for covid 19 for fourth time, swab still pending. Wound care was endorsed to Alexis ARCOS. Endorsed that dressings where changed today and pictures were obtained. Wound care pictures from today noted to be uploaded to patients chart. Bed locked, alarmed, in lowest position, call light in reach. Will continue to follow plan of care.
[2020-04-14] MEDS: Dyna-Hex 2% Top Sol 2oz TOPIC SCH (19:59)
[2020-04-14 20:00] VITALS: BP 121/76
[2020-04-14] MEDS: HYDROmorphone 1mg/ml Carpuject SUBQ PRN (20:04)
[2020-04-14] MEDS ORDERED: Tubing IV Secondary IV ONE (20:17)
--- NOTE | 2020-04-14 21:02 | NUR ---
NURSE NOTES: Unsuccessful in placing IV access. Patient noted to have PICC line ordered for this coming Thursday. Alexis ARCOS paged Doctor Mendez in regards to Lasix order. Alexis ARCOS requested to change Lasix from IV to PO due to no IV access and patient has edema in all four extremities. Awaiting call back.
[2020-04-15] VITALS: BP 115/73
[2020-04-15] MEDS: HYDROcodone/Acetamin 10/325 tab ORAL PRN ×3 (01:59→13:07)
[2020-04-15 04:00] VITALS: BP 139/74
[2020-04-15] MEDS: HYDROmorphone 1mg/ml Carpuject SUBQ PRN ×2 (04:37→09:03)
[2020-04-15] MEDS: dilTIAZem HCl 90mg tab ORAL SCH ×3 (06:10→21:19)
[2020-04-15] MEDS: HydrALAZINE 50mg tab ORAL SCH ×3 (06:10→21:18)
[2020-04-15 06:35] LABS: HEMATOCRIT 24.4 % (37.0-47.0); HEMOGLOBIN 7.4 G/DL (12.0-16.0); MEAN CORPUSCULAR VOLUME 87 FL (80-99); PLATELET COUNT 379 K/UL (150-450); RED CELL DISTRIBUTION WIDTH 16.8 % (11.6-14.8); WHITE BLOOD COUNT 5.2 K/UL (4.8-10.8)
[2020-04-15 06:54] LABS: ANION GAP 6 mmol/L (5-15); BLOOD UREA NITROGEN 11 mg/dL (7-18); CALCIUM 8.3 MG/DL (8.5-10.1); CARBON DIOXIDE 28 MMOL/L (21-32); CHLORIDE 106 MMOL/L (98-107); POTASSIUM 3.5 MMOL/L (3.5-5.1); SODIUM 140 MMOL/L (136-145)
--- NOTE | 2020-04-15 07:15 | NUR ---
NURSE NOTES: Received report from JOSSELYN Espinoza. Pt received lying in hospital bed with p200 mattress in place. Pt is AAO x 4, on bed rest, able to make needs known. On RA with no s/s of respiratory distress. c/o pain at 7/10 on R leg. Pt is on cardiac diet, LBM 04/14, weiss in place. Multiple skin issues located on sacral area, L and R hip, L shoulder. Pt has no IV access. MDs are aware. Pending picc line placement on 04/16/20. Bed in lowest position, side rails padded for seizure precaution, bed alarm on, call light within reach. Will continue POC.
--- NOTE | 2020-04-15 07:36 | NUR ---
HAND-OFF: Report given to Phillip ARCOS. Endorsed that patient suffers from chronic bilateral leg pain. Patient is currently in stable condition.
[2020-04-15 08:00] VITALS: BP 164/87
[2020-04-15] MEDS: Vancomycin 1.5gm/NS Premix q24h IVPB SCH (08:00)
--- NOTE | 2020-04-15 08:07 | General Progress Note ---
Assessment/Plan Status: stable Assessment/Plan: 1. History of diabetes. 2. Obesity. 3. Hypertension. 4. Hypercholesterolemia. 5. Diverticulosis/diverticulitis. 6. History of uterine fibroids. 7. Anemi 8. Stool ob positive x3 9. A.fib EGD and colonoscopy: SUMMARY OF FINDINGS: 1. Gastritis, status post biopsy. 2. Ulcerations behind the colostomy bag, most probably ischemic in nature, status post biopsy. RECOMMENDATIONS: Follow up biopsy results and treat accordingly. fu H&H consider adding carafate per colostomy prn blood transfusion Subjective ROS Limited/Unobtainable: Yes Allergies: Coded Allergies: LISINOPRIL (Verified Allergy, Unknown, Hives, 04/12/14) Objective Last 24 Hour Vital Signs Date Time Temp Pulse Resp B/P (MAP) Pulse Ox O2 Delivery O2 Flow Rate FiO2 04/15/20 06:10 139/74 04/15/20 06:10 91 139/74 04/15/20 04:00 98.3 91 18 139/74 (95) 97 04/15/20 00:00 98.5 92 18 115/73 (87) 97 04/14/20 21:47 121/76 04/14/20 21:47 83 121/76 04/14/20 21:00 Nasal Cannula 1.0 04/14/20 20:00 98.5 83 18 121/76 (91) 97 04/14/20 19:51 96 Nasal Cannula 2.0 28 04/14/20 16:00 98.8 104 20 108/60 (76) 98 04/14/20 13:44 135/65 04/14/20 13:44 99 135/65 04/14/20 12:00 98.6 99 20 135/65 (88) 99 04/14/20 09:00 Nasal Cannula 1.0 04/14/20 08:24 98.2 101 20 123/61 (81) 99 Intake and Output 04/14/20 04/15/20 19:00 07:00 Intake Total 1480.000 ml Output Total 3200 ml 1500 ml Balance -1720.000 ml -1500 ml Intake Oral 480 ml IV Total 1000.000 ml Output Urine Total 3200 ml 1500 ml # Voids 1 # Bowel Movements 1 Laboratory Tests 04/15/20 05:40: White Blood Count 5.2, Red Blood Count 2.80L, Hemoglobin 7.4L, Hematocrit 24.4L , Mean Corpuscular Volume 87, Mean Corpuscular Hemoglobin 26.3L, Mean Corpuscular Hemoglobin Concent 30.1L, Red Cell Distribution Width 16.8H, Platelet Count 379, Mean Platelet Volume 6.3L, Neutrophils (%) (Auto) , Lymphocytes (%) (Auto) , Monocytes (%) (Auto) , Eosinophils (%) (Auto) , Basophils (%) (Auto) , Neutrophils % (Manual) [Pending], Lymphocytes % (Manual) [Pending], Platelet Estimate [Pending], Platelet Morphology [Pending], Sodium Level 140, Potassium Level 3.5, Chloride Level 106, Carbon Dioxide Level 28, Anion Gap 6, Blood Urea Nitrogen 11, Creatinine 1.0, Estimat Glomerular Filtration Rate > 60, Glucose Level 90, Calcium Level 8.3L Height (Feet): 5 Height (Inches): 8.00 Weight (Pounds): 292 General Appearance: alert EENT: normal ENT inspection Neck: normal alignment Cardiovascular: normal rate Respiratory/Chest: decreased breath sounds Abdomen: soft, hypoactive bowel sounds, tender Extremities: non-tender Arturo Boyd MD Apr 15, 2020 08:07
--- NOTE | 2020-04-15 08:33 | Pulmonology Progress Note ---
Subjective ROS Limited/Unobtainable: Yes Constitutional: Reports: other - last fever yesterday ; Denies: fever Gastrointestinal/Abdominal: Denies: nausea, vomiting, diarrhea Psychiatric: Denies: depression Skin: Denies: rash Musculoskeletal: Denies: pain Allergies: Coded Allergies: LISINOPRIL (Verified Allergy, Unknown, Hives, 04/12/14) All Systems: reviewed and negative except above Objective Last 24 Hour Vital Signs Date Time Temp Pulse Resp B/P (MAP) Pulse Ox O2 Delivery O2 Flow Rate FiO2 04/15/20 06:10 139/74 04/15/20 06:10 91 139/74 04/15/20 04:00 98.3 91 18 139/74 (95) 97 04/15/20 00:00 98.5 92 18 115/73 (87) 97 04/14/20 21:47 121/76 04/14/20 21:47 83 121/76 04/14/20 21:00 Nasal Cannula 1.0 04/14/20 20:00 98.5 83 18 121/76 (91) 97 04/14/20 19:51 96 Nasal Cannula 2.0 28 04/14/20 16:00 98.8 104 20 108/60 (76) 98 04/14/20 13:44 135/65 04/14/20 13:44 99 135/65 04/14/20 12:00 98.6 99 20 135/65 (88) 99 04/14/20 09:00 Nasal Cannula 1.0 Intake and Output 04/14/20 04/15/20 19:00 07:00 Intake Total 1480.000 ml Output Total 3200 ml 1500 ml Balance -1720.000 ml -1500 ml Intake Oral 480 ml IV Total 1000.000 ml Output Urine Total 3200 ml 1500 ml # Voids 1 # Bowel Movements 1 Objective deferred due to COVID Microbiology Date/Time Source Procedure Growth Status 04/12/20 18:35 Blood Blood Culture - Preliminary NO GROWTH AFTER 48 HOURS Resulted 04/12/20 18:20 Blood Blood Culture - Preliminary NO GROWTH AFTER 48 HOURS Resulted 04/12/20 10:12 Nasopharynx SARS-CoV-2 RdRp Gene Assay - Final Complete 04/12/20 18:30 Stool Clostridium difficile Toxin Assay - Final Complete 04/12/20 18:30 External Cath Urine Culture - Final NO GROWTH AFTER 48 HOURS Complete Laboratory Tests 04/15/20 05:40: White Blood Count 5.2, Red Blood Count 2.80L, Hemoglobin 7.4L, Hematocrit 24.4L , Mean Corpuscular Volume 87, Mean Corpuscular Hemoglobin 26.3L, Mean Corpuscular Hemoglobin Concent 30.1L, Red Cell Distribution Width 16.8H, Platelet Count 379, Mean Platelet Volume 6.3L, Neutrophils (%) (Auto) , Lymphocytes (%) (Auto) , Monocytes (%) (Auto) , Eosinophils (%) (Auto) , Basophils (%) (Auto) , Neutrophils % (Manual) [Pending], Lymphocytes % (Manual) [Pending], Platelet Estimate [Pending], Platelet Morphology [Pending], Sodium Level 140, Potassium Level 3.5, Chloride Level 106, Carbon Dioxide Level 28, Anion Gap 6, Blood Urea Nitrogen 11, Creatinine 1.0, Estimat Glomerular Filtration Rate > 60, Glucose Level 90, Calcium Level 8.3L Current Medications Medications (Trade) Dose Ordered Sig/Debbie Route PRN Reason Start Time Stop Time Status Last Admin Dose Admin Acetaminophen (Tylenol) 650 mg Q4H PRN ORAL Mild Pain (Pain Scale 1-3) 04/14/20 06:45 04/25/20 21:14 Acetaminophen (Tylenol) 650 mg Q4H PRN ORAL Temp >100.5 04/14/20 06:45 04/25/20 21:14 Acetaminophen/ Hydrocodone Bitart ([place] 10/325) 1 tab Q4H PRN ORAL severe pain 04/14/20 06:54 04/18/20 06:53 04/15/20 06:11 Acetaminophen/ Hydrocodone Bitart ([place] 5/325) 1 tab Q4H PRN ORAL Moderate Pain (Pain Scale 4-6) 04/14/20 06:56 04/16/20 06:55 Al Hydroxide/Mg Hydroxide (Mylanta II) 30 ml Q6H PRN ORAL dyspepsia 04/14/20 06:50 04/25/20 06:49 Amiodarone HCl (Cordarone) 200 mg DAILY ORAL 04/14/20 09:00 07/05/20 20:59 04/14/20 08:36 Bisacodyl (Dulcolax) 10 mg HSPRN PRN RECTAL Constipation 04/14/20 06:50 06/24/20 06:49 Chlorhexidine Gluconate (Laurie-Hex 2%) 1 applic DAILY@1999 TOPIC 04/14/20 20:00 06/26/20 19:59 Chlorhexidine Gluconate (Laurie-Hex 2%) 1 applic DAILY@1999 TOPIC 04/16/20 20:00 07/15/20 19:59 Dextrose (Dextrose 50%) 25 ml Q30M PRN IV Hypoglycemia 04/14/20 06:45 06/24/20 21:14 Dextrose (Dextrose 50%) 50 ml Q30M PRN IV Hypoglycemia 04/14/20 06:45 06/24/20 21:14 Diltiazem HCl (Cardizem) 90 mg EVERY 8 HOURS ORAL 04/14/20 14:00 05/04/20 14:59 04/15/20 06:10 Diphenhydramine HCl (Benadryl) 25 mg Q6H PRN ORAL Itching/Pruritis 04/14/20 06:53 04/25/20 06:52 Docusate Sodium (Colace) 100 mg Q12HR ORAL 04/14/20 09:00 04/29/20 08:59 04/14/20 20:03 Furosemide (Lasix) 40 mg EVERY 12 HOURS ORAL 04/15/20 09:00 05/15/20 08:59 Gabapentin (Neurontin) 300 mg BEDTIME ORAL 04/14/20 21:00 04/26/20 20:59 04/14/20 20:03 Heparin Sodium/ Sodium Chloride (Heparin 1000 units/500ml Premix) 1,000 unit ONCE IV 04/16/20 06:00 04/16/20 18:00 Hydralazine HCl (Apresoline) 100 mg Q8HR ORAL 04/14/20 14:00 07/10/20 21:59 04/15/20 06:10 Hydromorphone HCl (Dilaudid) 1 mg Q4H PRN SUBQ Breakthrough 04/14/20 15:00 04/21/20 14:59 04/15/20 04:37 Lidocaine HCl (Xylocaine 1% 30ml) 30 ml ONCE INJ 04/16/20 06:00 04/16/20 18:00 Magnesium Hydroxide (Mom) 30 ml HSPRN PRN ORAL Constipation 04/14/20 07:02 05/14/20 07:01 Methocarbamol (Robaxin) 500 mg QID PRN ORAL spasms 04/14/20 14:30 05/14/20 14:29 04/14/20 23:20 Metoclopramide HCl (Reglan) 10 mg Q6H PRN IVP Nausea & Vomiting 04/14/20 09:15 04/25/20 21:14 Micafungin Sodium 100 mg/Sodium Chloride 100 ml @ 100 mls/hr Q24H IVPB 04/14/20 20:00 04/16/20 19:59 Ondansetron HCl (Zofran) 4 mg Q6H PRN IVP Nausea & Vomiting 04/14/20 07:04 04/25/20 07:03 Pantoprazole (Protonix) 40 mg DAILY IVP 04/14/20 09:00 05/01/20 08:59 04/14/20 08:35 Polyethylene Glycol (Miralax) 17 gm HSPRN PRN ORAL Constipation 04/14/20 07:04 05/14/20 07:03 Polymyxin B Sulfate 182179 units/Dextrose 550 ml @ 550 mls/hr EVERY 12 HOURS IVPB 04/14/20 09:00 04/17/20 11:59 04/14/20 10:45 Rivaroxaban (Xarelto) 15 mg DAILY ORAL 04/14/20 09:00 06/29/20 08:59 04/14/20 08:36 Vancomycin HCl (Vanco pharmacy to dose) 1 ea DAILY PRN MISC Per rx protocol 04/14/20 09:00 05/12/20 17:44 Vancomycin/Sodium Chloride 275 ml @ 137.5 mls/ hr Q24H IVPB 04/15/20 08:00 04/20/20 09:00 Assessment/Plan Assessment/Plan IMPRESSION: 1. Hyperkalemia. Corrected 2. Tachycardia; resolved 3. Sepsis 4. Hypertension. 5. Seizure disorder. 6. Acute renal failure. 7. Respiratory failure; extubated 04/05/20 PLAN care noted still with infiltrates- repeat CXR oxygen as is hope to see improvement and will monitor monitor for respiratory deterioration full code as is impression, plan, and exam edited and reviewed in detail care discussed with Bobo Roland MD Apr 15, 2020 08:33
[2020-04-15] MEDS: Pantoprazole Inj IVP SCH (08:46)
[2020-04-15] MEDS: Xarelto 15mg tab ORAL SCH (08:50)
--- NOTE | 2020-04-15 08:51 | NUR ---
NURSE NOTES: Violette held d/t Hgb 7.4. Will continue to monitor pt for s/s of bleeding.
[2020-04-15] MEDS: Polymyxin B Sulfate 500,000 UNITS in D5W 500ml 550 ML IVPB SCH ×2 (09:00→21:00)
[2020-04-15] MEDS: Docusate 100mg/10ml Liq ORAL SCH ×2 (09:02→20:50)
[2020-04-15] MEDS: Furosemide 40mg tab ORAL SCH ×2 (09:02→20:50)
[2020-04-15] MEDS: Amiodarone 200mg tab ORAL SCH (09:02)
[2020-04-15 12:00] VITALS: BP 132/85
--- NOTE | 2020-04-15 12:21 | NUR ---
NURSE NOTES: S/w Dr. Montes re patient's no IV access status as patient is unable to receive IV medications. No new orders received at this time. Pending PICC placement tomorrow, 04/16/20.
--- NOTE | 2020-04-15 13:13 | Nephrology Progress Note ---
Assessment/Plan Plan #VENTURA due to ATN in the setting of rhabdo- on CKD #hyperkalemia #Rhabdo #UTI sepsis #Lactic acidsis #AMS - toxic metabolic encephalopathy #Hypoxemic resp failure #afib with RVR #HLD #Obesity - lasix 40 IV BID - monitor UOP - replete lytes - monitor K,bmp - plan for EGD/colo - weiss placed - strict I&Os - cardiology eval - amiodarone, diltiazem - s/p IV iron - monitor hemoglobin - norco dose adjuested - ID consult- - antibiotics per ID - follow cx - monitor BMP, mag and phos daily - PT 30 minutes of critical care time- greater than 50% on care coordination and counseling Subjective Subjective Cr stable very weak evaluated by GI s/p colo and EGD complains of leg pain increased [place] dose Objective Objective Last 24 Hour Vital Signs Date Time Temp Pulse Resp B/P (MAP) Pulse Ox O2 Delivery O2 Flow Rate FiO2 04/15/20 13:08 132/85 04/15/20 13:08 88 132/85 04/15/20 12:00 97.9 88 18 132/85 (101) 95 04/15/20 09:00 Nasal Cannula 1.0 04/15/20 08:00 97.7 95 19 164/87 (112) 95 04/15/20 06:10 139/74 04/15/20 06:10 91 139/74 04/15/20 04:00 98.3 91 18 139/74 (95) 97 04/15/20 00:00 98.5 92 18 115/73 (87) 97 04/14/20 21:47 121/76 04/14/20 21:47 83 121/76 04/14/20 21:00 Nasal Cannula 1.0 04/14/20 20:00 98.5 83 18 121/76 (91) 97 04/14/20 19:51 96 Nasal Cannula 2.0 28 04/14/20 16:00 98.8 104 20 108/60 (76) 98 04/14/20 13:44 135/65 04/14/20 13:44 99 135/65 Intake and Output 04/14/20 04/15/20 19:00 07:00 Intake Total 1480.000 ml Output Total 3200 ml 1500 ml Balance -1720.000 ml -1500 ml Intake Oral 480 ml IV Total 1000.000 ml Output Urine Total 3200 ml 1500 ml # Voids 1 # Bowel Movements 1 Laboratory Tests 04/15/20 05:40: White Blood Count 5.2, Red Blood Count 2.80L, Hemoglobin 7.4L, Hematocrit 24.4L , Mean Corpuscular Volume 87, Mean Corpuscular Hemoglobin 26.3L, Mean Corpuscular Hemoglobin Concent 30.1L, Red Cell Distribution Width 16.8H, Platelet Count 379, Mean Platelet Volume 6.3L, Neutrophils (%) (Auto) , Lymphocytes (%) (Auto) , Monocytes (%) (Auto) , Eosinophils (%) (Auto) , Basophils (%) (Auto) , Differential Total Cells Counted 100, Neutrophils % ( Manual) 62, Lymphocytes % (Manual) 25, Monocytes % (Manual) 13H, Eosinophils % ( Manual) 0, Basophils % (Manual) 0, Band Neutrophils 0, Platelet Estimate Adequate, Platelet Morphology Normal, Hypochromasia 1+, Anisocytosis 1+, Sodium Level 140, Potassium Level 3.5, Chloride Level 106, Carbon Dioxide Level 28, Anion Gap 6, Blood Urea Nitrogen 11, Creatinine 1.0, Estimat Glomerular Filtration Rate > 60, Glucose Level 90, Calcium Level 8.3L Height (Feet): 5 Height (Inches): 8.00 Weight (Pounds): 292 Objective General Appearance: no distress Lines, tubes and drains: peripheral HEENT: normocephalic, atraumatic Neck: non-tender, normal alignment, supple Respiratory/Chest: lungs clear Cardiovascular/Chest: normal peripheral pulses, tachycardia, irregularly irregular Abdomen: soft Skin Exam: normal pigmentation Neurologic: nonfocal Venkat Montes M.D. Apr 15, 2020 13:13
[2020-04-15 16:00] VITALS: BP 156/68
--- NOTE | 2020-04-15 16:00 | NUR ---
NURSE NOTES: Pt signed consent for PICC line placement planned for tomorrow, 04/16/2020.
--- NOTE | 2020-04-15 18:29 | General Progress Note ---
Assessment/Plan Problem List: (1) VENTURA (acute kidney injury) ICD Codes: N17.9 - Acute kidney failure, unspecified SNOMED: 7851212, 36485791 (2) Acute encephalopathy ICD Codes: G93.40 - Encephalopathy, unspecified SNOMED: 5467412 (3) Hypertension ICD Codes: I10 - Essential (primary) hypertension SNOMED: 74986763 (4) Atrial flutter ICD Codes: I48.92 - Unspecified atrial flutter SNOMED: 6832554 (5) Sacral decubitus ulcer ICD Codes: L89.159 - Pressure ulcer of sacral region, unspecified stage SNOMED: 624578647 (6) Chronic back pain ICD Codes: M54.9 - Dorsalgia, unspecified; G89.29 - Other chronic pain SNOMED: 927564403 (7) Sepsis ICD Codes: A41.9 - Sepsis, unspecified organism SNOMED: 62736275 (8) Hyperkalemia ICD Codes: E87.5 - Hyperkalemia SNOMED: 31311960 Status: stable Assessment/Plan: # Pain - add robaxin for spasms - cont norco and morphine, change breakthrough to dilaudid; pain reports that medication is improved, [place] changed to Percocet which seems to work better for # fever, on broad antibiotics for multiple infections resolved after addition of vancomycin 04/12- -Infectious disease following, appreciate recommendations -Follow-up blood culture, - 0 lactic acid, - UA, neg - chest x-ray stable - C. difficile if diarrhea.: Negative -Patient to receive PICC line on 04/16, has no IV access at this time #Acute Hypoxic Resp Failure - s/p extubation and ICU course - now on NC - CT resp status - lasix per cards and renal - wean o2 #Afib w/ RVR, now in SR, off heparin gtt and on Xarelto - cont amiodarone , cardizem and hydralazine - Cardiology and EP following, appreciate recs - ischemic w/u and ablation prior to dc - DC AC given drop in Hb and + FOBT -> Trend CBC, transfuse for Hb < 7, GI consult (Dr Boyd), f/u rec's-> plan for EGD #Acute Renal Failure 2/2 ATN from Rhabo #Rhabdo - resolved - CTM - Nephrology following, appreciate recs #GI Bleed, Acute Anemia due to blood loss, Iron Deficient - GI following, appreciate recs - awaiting cardiology clearance for scope - fobt positive x 3 #Sepsis, HCAP/UTI, COVID negative , + ESBL; see above - Sputum w/ multiple MDR organisms, now requiring aggressive AB - Now Meropenem, Micagungin, Polymoxin, S/P Vancomyin, Cefepime, Flagyl #Seizure vs prolonged period of immobility # S/P Acute metabolic Encephalopathy #Hx of Colectomy w/ Colostomy DVT and GI ppx; xarelto , holding for bleeding Full Code Dispo 1-2d, pending rehab placement I spent 38min on this encounter w/ 19min on care/coordination and counseling Subjective Date patient seen: Apr 15, 2020 Time patient seen: 18:03 Allergies: Coded Allergies: LISINOPRIL (Verified Allergy, Unknown, Hives, 04/12/14) Subjective Unable to obtain IV Will need PEG tomorrow Has been afebrile Has not received IV medication Hemoglobin stable Objective Last 24 Hour Vital Signs Date Time Temp Pulse Resp B/P (MAP) Pulse Ox O2 Delivery O2 Flow Rate FiO2 04/15/20 16:00 98.2 98 19 156/68 (97) 98 04/15/20 13:08 132/85 04/15/20 13:08 88 132/85 04/15/20 12:00 97.9 88 18 132/85 (101) 95 04/15/20 09:00 Nasal Cannula 1.0 04/15/20 08:00 97.7 95 19 164/87 (112) 95 04/15/20 06:10 139/74 04/15/20 06:10 91 139/74 04/15/20 04:00 98.3 91 18 139/74 (95) 97 04/15/20 00:00 98.5 92 18 115/73 (87) 97 04/14/20 21:47 121/76 04/14/20 21:47 83 121/76 04/14/20 21:00 Nasal Cannula 1.0 04/14/20 20:00 98.5 83 18 121/76 (91) 97 04/14/20 19:51 96 Nasal Cannula 2.0 28 Intake and Output 04/14/20 04/15/20 19:00 07:00 Intake Total 1480.000 ml Output Total 3200 ml 1500 ml Balance -1720.000 ml -1500 ml Intake Oral 480 ml IV Total 1000.000 ml Output Urine Total 3200 ml 1500 ml # Voids 1 # Bowel Movements 1 Laboratory Tests 04/15/20 05:40: White Blood Count 5.2, Red Blood Count 2.80L, Hemoglobin 7.4L, Hematocrit 24.4L , Mean Corpuscular Volume 87, Mean Corpuscular Hemoglobin 26.3L, Mean Corpuscular Hemoglobin Concent 30.1L, Red Cell Distribution Width 16.8H, Platelet Count 379, Mean Platelet Volume 6.3L, Neutrophils (%) (Auto) , Lymphocytes (%) (Auto) , Monocytes (%) (Auto) , Eosinophils (%) (Auto) , Basophils (%) (Auto) , Differential Total Cells Counted 100, Neutrophils % ( Manual) 62, Lymphocytes % (Manual) 25, Monocytes % (Manual) 13H, Eosinophils % ( Manual) 0, Basophils % (Manual) 0, Band Neutrophils 0, Platelet Estimate Adequate, Platelet Morphology Normal, Hypochromasia 1+, Anisocytosis 1+, Sodium Level 140, Potassium Level 3.5, Chloride Level 106, Carbon Dioxide Level 28, Anion Gap 6, Blood Urea Nitrogen 11, Creatinine 1.0, Estimat Glomerular Filtration Rate > 60, Glucose Level 90, Calcium Level 8.3L Height (Feet): 5 Height (Inches): 8.00 Weight (Pounds): 292 Objective GENERAL: No acute distress, appears comfortable, alert, obese, anasarca HEENT: NCAT, non-icteric eyes, pupils PERRLA Neck: No cervical lymphadenopathy, trachea midline CV: Regular rate and rhythm, no murmurs rubs or gallops RESP: Clear to auscultation bilaterally, no wheezes/rhonchi/crackles ABD: Ostomy noted with liquid hate colored stool, soft, non-distended, no TTP EXT: Normal muscle tone, +5/5 muscle strength, severe edema bilateral lower extremities NEURO: No obvious deficits, alert and oriented x3 Bell Tanner DO Apr 15, 2020 18:29
--- NOTE | 2020-04-15 19:22 | NUR ---
HAND-OFF: Report given to JOSSELYN Wiggins. Endorsed POC.
--- NOTE | 2020-04-15 19:42 | NUR ---
NURSE NOTES: Received report from Phillip ARCOS, the patient is alert and oriented x4 and was calm and cooperative with her care and does not seem to be in any distress. she does not have an IV line and was noted with swelling in the left arm that was supported with a pillow. She has a Desai catheter draining yellowish pale urine under gravity. Isolation precautions maintained. Bed low and locked, siderails up x2, zone alarms on 1, will continue to monitor.
[2020-04-15 20:00] VITALS: BP 158/86
[2020-04-15] MEDS: Dyna-Hex 2% Top Sol 2oz TOPIC SCH (20:00)
--- NOTE | 2020-04-15 20:24 | Surgery Progress Note ---
Surgery Progress Note Objective Last 24 Hour Vital Signs Date Time Temp Pulse Resp B/P (MAP) Pulse Ox O2 Delivery O2 Flow Rate FiO2 04/15/20 20:00 97.5 91 24 158/86 (110) 97 04/15/20 16:00 98.2 98 19 156/68 (97) 98 04/15/20 13:08 132/85 04/15/20 13:08 88 132/85 04/15/20 12:00 97.9 88 18 132/85 (101) 95 04/15/20 09:00 Nasal Cannula 1.0 04/15/20 08:00 97.7 95 19 164/87 (112) 95 04/15/20 06:10 139/74 04/15/20 06:10 91 139/74 04/15/20 04:00 98.3 91 18 139/74 (95) 97 04/15/20 00:00 98.5 92 18 115/73 (87) 97 04/14/20 21:47 121/76 04/14/20 21:47 83 121/76 04/14/20 21:00 Nasal Cannula 1.0 I&O Intake and Output 04/14/20 04/15/20 19:00 07:00 Intake Total 1480.000 ml Output Total 3200 ml 1500 ml Balance -1720.000 ml -1500 ml Intake Oral 480 ml IV Total 1000.000 ml Output Urine Total 3200 ml 1500 ml # Voids 1 # Bowel Movements 1 Laboratory Tests Test 04/15/20 05:40 White Blood Count 5.2 K/UL (4.8-10.8) Red Blood Count 2.80 M/UL (4.20-5.40) L Hemoglobin 7.4 G/DL (12.0-16.0) L Hematocrit 24.4 % (37.0-47.0) L Mean Corpuscular Volume 87 FL (80-99) Mean Corpuscular Hemoglobin 26.3 PG (27.0-31.0) L Mean Corpuscular Hemoglobin Concent 30.1 G/DL (32.0-36.0) L Red Cell Distribution Width 16.8 % (11.6-14.8) H Platelet Count 379 K/UL (150-450) Mean Platelet Volume 6.3 FL (6.5-10.1) L Neutrophils (%) (Auto) % (45.0-75.0) Lymphocytes (%) (Auto) % (20.0-45.0) Monocytes (%) (Auto) % (1.0-10.0) Eosinophils (%) (Auto) % (0.0-3.0) Basophils (%) (Auto) % (0.0-2.0) Differential Total Cells Counted 100 Neutrophils % (Manual) 62 % (45-75) Lymphocytes % (Manual) 25 % (20-45) Monocytes % (Manual) 13 % (1-10) H Eosinophils % (Manual) 0 % (0-3) Basophils % (Manual) 0 % (0-2) Band Neutrophils 0 % (0-8) Platelet Estimate Adequate Platelet Morphology Normal Hypochromasia 1+ Anisocytosis 1+ Sodium Level 140 MMOL/L (136-145) Potassium Level 3.5 MMOL/L (3.5-5.1) Chloride Level 106 MMOL/L (98-107) Carbon Dioxide Level 28 MMOL/L (21-32) Anion Gap 6 mmol/L (5-15) Blood Urea Nitrogen 11 mg/dL (7-18) Creatinine 1.0 MG/DL (0.55-1.30) Estimat Glomerular Filtration Rate > 60 mL/min (>60) Glucose Level 90 MG/DL (74-106) Calcium Level 8.3 MG/DL (8.5-10.1) L Plan Problems: (1) Atrial flutter (2) Hypertension (3) Acute encephalopathy (4) VENTURA (acute kidney injury) (5) Acute and chronic respiratory failure with hypoxia (6) Abscess (7) Fistula (8) Sciatica neuralgia (9) Uncontrolled seizures (10) Forgetfulness (11) Sacral decubitus ulcer Assessment & Plan: Patient identified to have a sacral deep tissue injury upon admission Currently intensive care unit on support Care plan initiated (12) Chronic back pain (13) Overdose of opiate or related narcotic (14) Cellulitis of left leg (15) Pericolonic abscess due to diverticulitis (16) Ventral incisional hernia Assessment & Plan: History of colon resection colostomy Ventral incisional hernia reducible No acute invention monitor parastomal hernia stable ostomy viable and functional no acute intervention planned (17) Chronic pain of both knees (18) Dehydration (19) Hyperkalemia (20) Sepsis Assessment & Plan: Patient admitted identified to have sepsis leukocytosis tachycardia abnormal labs lactic acidosis. Chest x-ray reviewed. Imaging noted. Micro noted. Intensive care unit on support appreciate ICU care Nutritional optimization IV fluids IV antibiotics as per infectious disease tube feeds once stable will follow with recommendations thank you for letting participate patient's care Urosepsis on abx extubated improving downgrade upper ext edema noted US on coag as per heme Patient reports not liking current diet texture of Moist Puree with Thin Liquids. Patient completed PO intake of solids (crackers), Patient's swallow is grossly functional. Plan: 1. Upgrade Diet Texture to Soft Solids and continue Thin Liquids; type/ supplements per RD. 2. Nursing to assist Patient with oral care BID. DAILY ESTIMATED NEEDS: Needs based on Pulmonary, sepsis, wound, VENTURA 75.8kg adj 20-30 kcals/kg 4821-9980 total kcals 1.25-1.5 g protein/kg 94-114 g total protein 25-30 mL/kg 0083-9969 total fluid mLs NUTRITION DIAGNOSIS: Swallowing difficulty r/t respiratory status as evidenced by pt orally intubated, on NGT feeds-> now extubated, pending BARE[facility] RIDER eval. PO DIET RECOMMENDATIONS-->>> Cardiac diet / texture per [facility] ENTERAL NUTRITION RECOMMENDATIONS: VITAL AF 1.2 @55ml/hr x24 hrs to provide 1320ml, 1584 kcal, 99g pro, 1071ml free H2O - Maintain at goal as tolerated if not cleared for oral diet by [facility] RIDER - Flush per MD/ HOB over 30 degree ADDITIONAL RECOMMENDATIONS: 1) Maintain calibrated bed scale wts (248lbs vs 217lbs last adm) 2) Monitor renal fxn and lytes closely, need for renal formula Creat wnl; lytes low (K,phos,mg) 3) Wound healing: ZnSO4 220mg QD x 10 days+ Boris BID via NGT hold vit C until renal fxn improves 4) NISS w/ TF, h/o DM 5) Monitor po intake if cleared for oral diet; need for snacks/supplements Julian Iglesias Apr 15, 2020 20:24
--- NOTE | 2020-04-15 21:11 | Hematology/Onc Progress Note ---
Assessment/Plan Assessment/Plan Assessment and Recs # Anemia of iron deficiency, with a ferritin that is less than 50 recentrly --> Anemia workup has been ordered, rule out gi bleed --> recheck ferritin, occult was + --> No evidence of hemolysis is noted, peripheral smear has been reviewed. --> Hgb goal >7. Transfuse prn. --> IRon IV x 5 days started 04/06 as ferritin is low --> Medications have been reviewed --> low threshold for gi evaluation in case has occult + --> currently is on XARELTO --> as per Terrance, may need to hold if h /h lower --> hgb trend 8.2-->7.2->8->7.4 --> GI eval prn # Hypercoagulable disorder is on xarelto for afib with rvr --> reviewed cards recs --> if any further bleed, consider hold xarelto --> have dw Pcp --> monitor h/h # Leukocytoisis with gram neg pna, uti, sepsis, fevers, leukocytosis, a.flutter , respiratory failure, atx, dony, + ua, atx --> covid is neg --> abx svetlana and micafungin/polymyx=->hola/svetlana --> as per id recs # Respiratory failure, on vent initially --> now extubated # Renal failure. --> improved # Diabetes. --> endo prn # Hypertension. --> per cards # Diabetes and hypertension, treatment per primary care team. --> a1c goal <8, acchuchecks qac and qhs # Patient with history of altered mental status. --> metabolic encephalopathy # Seizure history. # Chronic neck pain. # Lactic acidsis # HLD # Obesity # Dvt ppx xarelto Appreciate consultation and vanessa ARCOS Subjective Allergies: Coded Allergies: LISINOPRIL (Verified Allergy, Unknown, Hives, 04/12/14) All Systems: reviewed and negative except above Subjective 04/08 labs have been reviewed, no night sweats, eating overnight, labs pending 04/09 awake, alert with picc, labs from am pending, no major events 04/10 no events, vanessa arcos, duplex study reviewed, major vessels show no dvt 04/11 labs reviewed, laying in bed, no complaints, dw rn, hgb 8 04/12 no events, no bleeding, meds reviewed, no night sweats 04/13 labs reviewed, no bleeding, meds reviewed, no night sweats 04/15 alert and oriented, hgb 7.4, no hemolysis, no bleeding Objective Objective Current Medications Medications (Trade) Dose Ordered Sig/Debbie Route PRN Reason Start Time Stop Time Status Last Admin Dose Admin Acetaminophen (Tylenol) 650 mg Q4H PRN ORAL Mild Pain (Pain Scale 1-3) 04/14/20 06:45 04/25/20 21:14 Acetaminophen (Tylenol) 650 mg Q4H PRN ORAL Temp >100.5 04/14/20 06:45 04/25/20 21:14 Acetaminophen/ Hydrocodone Bitart (Clinton 5/325) 1 tab Q4H PRN ORAL Moderate Pain (Pain Scale 4-6) 04/14/20 06:56 04/16/20 06:55 Al Hydroxide/Mg Hydroxide (Mylanta II) 30 ml Q6H PRN ORAL dyspepsia 04/14/20 06:50 04/25/20 06:49 Amiodarone HCl (Cordarone) 200 mg DAILY ORAL 04/14/20 09:00 07/05/20 20:59 04/15/20 09:02 Bisacodyl (Dulcolax) 10 mg HSPRN PRN RECTAL Constipation 04/14/20 06:50 06/24/20 06:49 Chlorhexidine Gluconate (Laurie-Hex 2%) 1 applic DAILY@1999 TOPIC 04/14/20 20:00 06/26/20 19:59 Chlorhexidine Gluconate (Laurie-Hex 2%) 1 applic DAILY@1999 TOPIC 04/16/20 20:00 07/15/20 19:59 Dextrose (Dextrose 50%) 25 ml Q30M PRN IV Hypoglycemia 04/14/20 06:45 06/24/20 21:14 Dextrose (Dextrose 50%) 50 ml Q30M PRN IV Hypoglycemia 04/14/20 06:45 06/24/20 21:14 Diltiazem HCl (Cardizem) 90 mg EVERY 8 HOURS ORAL 04/14/20 14:00 05/04/20 14:59 04/15/20 13:08 Diphenhydramine HCl (Benadryl) 25 mg Q6H PRN ORAL Itching/Pruritis 04/14/20 06:53 04/25/20 06:52 Docusate Sodium (Colace) 100 mg Q12HR ORAL 04/14/20 09:00 04/29/20 08:59 04/15/20 20:50 Furosemide (Lasix) 40 mg EVERY 12 HOURS ORAL 04/15/20 09:00 05/15/20 08:59 04/15/20 20:50 Gabapentin (Neurontin) 300 mg BEDTIME ORAL 04/14/20 21:00 04/26/20 20:59 04/15/20 20:50 Heparin Sodium/ Sodium Chloride (Heparin 1000 units/500ml Premix) 1,000 unit ONCE IV 04/16/20 06:00 04/16/20 18:00 Hydralazine HCl (Apresoline) 100 mg Q8HR ORAL 04/14/20 14:00 07/10/20 21:59 04/15/20 13:08 Hydromorphone HCl (Dilaudid) 1 mg Q4H PRN SUBQ Breakthrough 04/14/20 15:00 04/21/20 14:59 04/15/20 09:03 Lidocaine HCl (Xylocaine 1% 30ml) 30 ml ONCE INJ 04/16/20 06:00 04/16/20 18:00 Magnesium Hydroxide (Mom) 30 ml HSPRN PRN ORAL Constipation 04/14/20 07:02 05/14/20 07:01 Methocarbamol (Robaxin) 500 mg QID PRN ORAL spasms 04/14/20 14:30 05/14/20 14:29 04/14/20 23:20 Metoclopramide HCl (Reglan) 10 mg Q6H PRN IVP Nausea & Vomiting 04/14/20 09:15 04/25/20 21:14 Micafungin Sodium 100 mg/Sodium Chloride 100 ml @ 100 mls/hr Q24H IVPB 04/14/20 20:00 04/16/20 19:59 Ondansetron HCl (Zofran) 4 mg Q6H PRN IVP Nausea & Vomiting 04/14/20 07:04 04/25/20 07:03 Oxycodone/ Acetaminophen (Percocet 10/325) 1 tab Q4H PRN ORAL Severe Pain (Pain Scale 7-10) 04/15/20 13:30 04/22/20 13:29 04/15/20 18:55 Pantoprazole (Protonix) 40 mg DAILY IVP 04/14/20 09:00 05/01/20 08:59 04/14/20 08:35 Polyethylene Glycol (Miralax) 17 gm HSPRN PRN ORAL Constipation 04/14/20 07:04 05/14/20 07:03 Polymyxin B Sulfate [id number] units/Dextrose 550 ml @ 550 mls/hr EVERY 12 HOURS IVPB 04/14/20 09:00 04/17/20 11:59 04/14/20 10:45 Rivaroxaban (Xarelto) 15 mg DAILY ORAL 04/14/20 09:00 06/29/20 08:59 04/14/20 08:36 Vancomycin HCl (Vanco pharmacy to dose) 1 ea DAILY PRN MISC Per rx protocol 04/14/20 09:00 05/12/20 17:44 Vancomycin/Sodium Chloride 275 ml @ 137.5 mls/ hr Q24H IVPB 04/15/20 08:00 04/20/20 09:00 Last 24 Hour Vital Signs Date Time Temp Pulse Resp B/P (MAP) Pulse Ox O2 Delivery O2 Flow Rate FiO2 04/15/20 20:10 97 Nasal Cannula 2.0 28 04/15/20 20:00 97.5 91 24 158/86 (110) 97 04/15/20 16:00 98.2 98 19 156/68 (97) 98 04/15/20 13:08 132/85 04/15/20 13:08 88 132/85 04/15/20 12:00 97.9 88 18 132/85 (101) 95 04/15/20 09:00 Nasal Cannula 1.0 04/15/20 08:00 97.7 95 19 164/87 (112) 95 04/15/20 06:10 139/74 04/15/20 06:10 91 139/74 04/15/20 04:00 98.3 91 18 139/74 (95) 97 04/15/20 00:00 98.5 92 18 115/73 (87) 97 04/14/20 21:47 121/76 04/14/20 21:47 83 121/76 04/14/20 21:00 Nasal Cannula 1.0 04/14/20 20:00 98.5 83 18 121/76 (91) 97 04/14/20 19:51 96 Nasal Cannula 2.0 28 04/14/20 16:00 98.8 104 20 108/60 (76) 98 04/14/20 13:44 135/65 04/14/20 13:44 99 135/65 04/14/20 12:00 98.6 99 20 135/65 (88) 99 04/14/20 09:00 Nasal Cannula 1.0 04/14/20 08:24 98.2 101 20 123/61 (81) 99 04/14/20 05:43 156/69 04/14/20 05:27 90 156/69 04/14/20 04:00 98.6 99 20 173/63 (99) 92 04/14/20 04:00 90 04/14/20 02:32 98.6 04/14/20 00:00 98.6 100 23 156/69 (98) 95 04/14/20 00:00 95 04/13/20 23:43 98.6 04/13/20 21:39 98.6 04/13/20 21:11 99 167/68 Intake and Output 04/14/20 04/15/20 19:00 07:00 Intake Total 1480.000 ml Output Total 3200 ml 1500 ml Balance -1720.000 ml -1500 ml Intake Oral 480 ml IV Total 1000.000 ml Output Urine Total 3200 ml 1500 ml # Voids 1 # Bowel Movements 1 Labs Test 04/13/20 06:05 04/14/20 07:10 04/15/20 05:40 White Blood Count 4.6 K/UL (4.8-10.8) 5.4 K/UL (4.8-10.8) 5.2 K/UL (4.8-10.8) Red Blood Count 2.68 M/UL (4.20-5.40) 2.83 M/UL (4.20-5.40) 2.80 M/UL (4.20-5.40) Hemoglobin 7.0 G/DL (12.0-16.0) 7.5 G/DL (12.0-16.0) 7.4 G/DL (12.0-16.0) Hematocrit 23.4 % (37.0-47.0) 24.6 % (37.0-47.0) 24.4 % (37.0-47.0) Mean Corpuscular Volume 87 FL (80-99) 87 FL (80-99) 87 FL (80-99) Mean Corpuscular Hemoglobin 26.1 PG (27.0-31.0) 26.6 PG (27.0-31.0) 26.3 PG (27.0-31.0) Mean Corpuscular Hemoglobin Concent 29.9 G/DL (32.0-36.0) 30.5 G/DL (32.0-36.0) 30.1 G/DL (32.0-36.0) Red Cell Distribution Width 16.9 % (11.6-14.8) 16.6 % (11.6-14.8) 16.8 % (11.6-14.8) Platelet Count 335 K/UL (150-450) 369 K/UL (150-450) 379 K/UL (150-450) Mean Platelet Volume 7.2 FL (6.5-10.1) 6.1 FL (6.5-10.1) 6.3 FL (6.5-10.1) Neutrophils (%) (Auto) % (45.0-75.0) % (45.0-75.0) % (45.0-75.0) Lymphocytes (%) (Auto) % (20.0-45.0) % (20.0-45.0) % (20.0-45.0) Monocytes (%) (Auto) % (1.0-10.0) % (1.0-10.0) % (1.0-10.0) Eosinophils (%) (Auto) % (0.0-3.0) % (0.0-3.0) % (0.0-3.0) Basophils (%) (Auto) % (0.0-2.0) % (0.0-2.0) % (0.0-2.0) Differential Total Cells Counted 100 100 100 Neutrophils % (Manual) 73 % (45-75) 65 % (45-75) 62 % (45-75) Lymphocytes % (Manual) 19 % (20-45) 26 % (20-45) 25 % (20-45) Monocytes % (Manual) 7 % (1-10) 7 % (1-10) 13 % (1-10) Eosinophils % (Manual) 0 % (0-3) 2 % (0-3) 0 % (0-3) Basophils % (Manual) 1 % (0-2) 0 % (0-2) 0 % (0-2) Band Neutrophils 0 % (0-8) 0 % (0-8) 0 % (0-8) Platelet Estimate Adequate Adequate Adequate Platelet Morphology Normal Normal Normal Anisocytosis 1+ 1+ 1+ Sodium Level 140 MMOL/L (136-145) 138 MMOL/L (136-145) 140 MMOL/L (136-145) Potassium Level 3.4 MMOL/L (3.5-5.1) 3.3 MMOL/L (3.5-5.1) 3.5 MMOL/L (3.5-5.1) Chloride Level 105 MMOL/L (98-107) 104 MMOL/L (98-107) 106 MMOL/L (98-107) Carbon Dioxide Level 28 MMOL/L (21-32) 26 MMOL/L (21-32) 28 MMOL/L (21-32) Anion Gap 7 mmol/L (5-15) 8 mmol/L (5-15) 6 mmol/L (5-15) Blood Urea Nitrogen 10 mg/dL (7-18) 10 mg/dL (7-18) 11 mg/dL (7-18) Creatinine 1.0 MG/DL (0.55-1.30) 1.0 MG/DL (0.55-1.30) 1.0 MG/DL (0.55-1.30) Estimat Glomerular Filtration Rate > 60 mL/min (>60) > 60 mL/min (>60) > 60 mL/min (>60) Glucose Level 89 MG/DL (74-106) 100 MG/DL (74-106) 90 MG/DL (74-106) Calcium Level 8.4 MG/DL (8.5-10.1) 8.0 MG/DL (8.5-10.1) 8.3 MG/DL (8.5-10.1) Total Bilirubin 0.2 MG/DL (0.2-1.0) Direct Bilirubin 0.2 MG/DL (0.0-0.3) Aspartate Amino Transf (AST/SGOT) 19 U/L (15-37) Alanine Aminotransferase (ALT/SGPT) 6 U/L (12-78) Alkaline Phosphatase 71 U/L (46-116) Total Protein 5.0 G/DL (6.4-8.2) Albumin 1.3 G/DL (3.4-5.0) Hypochromasia 1+ 1+ Vancomycin Level Trough 19.3 ug/mL (5.0-12.0) Height (Feet): 5 Height (Inches): 8.00 Weight (Pounds): 292 Objective Physical Exam Sp02 EP Interpretation: reviewed, normal General: Patient appears chronically ill Head: normocephalic, atraumatic ++ngt Respiratory: , crackles - both lower lobes Cardiovascular: tachycardia Gastrointestinal: non tender, soft Musculoskeletal: other - Patient appears chronically debilitated both lower extremities are extended Neurologic: other - Some verbal response, but chronic disability Skin: no rash : ++Virgil Chowdhury MD Apr 15, 2020 21:11
[2020-04-16] VITALS: BP 136/79
[2020-04-16 04:00] VITALS: BP 157/68
[2020-04-16] MEDS: dilTIAZem HCl 90mg tab ORAL SCH ×3 (05:46→21:39)
[2020-04-16] MEDS: HydrALAZINE 50mg tab ORAL SCH ×3 (05:46→21:40)
[2020-04-16] MEDS ORDERED: Heparin1,000 units/500ml Premix(Conc:2 units/ml) IV SCH (06:00)
[2020-04-16] MEDS ORDERED: Lidocaine 1% Plain 30 ml INJ SCH (06:00)
--- NOTE | 2020-04-16 06:25 | NUR ---
NURSE NOTES: The patient is is alert and very cooperative with her care. She complained of pain twice last night and was given her PRN pain medication well tolerated. She is on 1 liter of 0xygen via NC and is saturating >93% NC. Turning and re-positioning done Q2hrs PRN well tolerated. Treatment was also done and she is clean and comfortable. WILL continue to monitor
--- NOTE | 2020-04-16 06:32 | NUR ---
NURSE NOTES: Heparin 5000 units was held due to scheduled PICC- line infusion this morning of which lidocaine 15 will be use as indicated.
--- NOTE | 2020-04-16 07:15 | NUR ---
HAND-OFF: Report given to Phillip ARCOS.
--- NOTE | 2020-04-16 07:25 | NUR ---
NURSE NOTES: Received report from JOSSELYN Wiggins. Pt received lying in hospital bed with p200 mattress in place. Pt is AAO x 4, nonambulatory, able to make needs known. On RA with no s/s of respiratory distress. Pt is on cardiac diet, LBM 04/15/20 in LLQ colostomy small loose liquid stool, weiss in place draining yellow urine. Multiple skin issues located on sacral area, L and R hip, L shoulder. Pt has no IV access. MDs are aware. Pending picc line placement today 04/16/20. Bed in lowest position, side rails padded for seizure precaution, bed alarm on, call light within reach. Will continue POC.
[2020-04-16 08:00] VITALS: BP 153/56
[2020-04-16] MEDS: Vancomycin 1.5gm/NS Premix q24h IVPB SCH (08:00)
--- NOTE | 2020-04-16 08:27 | NUR ---
NURSE NOTES: MD Valdes discontinued COVID PUI isolations due to negative test result. RN notified.
[2020-04-16] MEDS: Amiodarone 200mg tab ORAL SCH (08:31)
[2020-04-16] MEDS: Pantoprazole Inj IVP SCH (08:32)
[2020-04-16] MEDS: Furosemide 40mg tab ORAL SCH ×2 (08:32→20:08)
[2020-04-16] MEDS: Polymyxin B Sulfate 500,000 UNITS in D5W 500ml 550 ML IVPB SCH (08:32)
[2020-04-16] MEDS: Docusate 100mg/10ml Liq ORAL SCH ×2 (08:33→20:09)
[2020-04-16] MEDS: Xarelto 15mg tab ORAL SCH (08:33)
[2020-04-16 08:41] LABS: HEMATOCRIT 24.9 % (37.0-47.0); HEMOGLOBIN 7.6 G/DL (12.0-16.0); MEAN CORPUSCULAR VOLUME 86 FL (80-99); PLATELET COUNT 436 K/UL (150-450); RED BLOOD COUNT 2.89 M/UL (4.20-5.40); RED CELL DISTRIBUTION WIDTH 16.5 % (11.6-14.8)
[2020-04-16 08:52] LABS: ANION GAP 7 mmol/L (5-15); BLOOD UREA NITROGEN 11 mg/dL (7-18); CALCIUM 8.5 MG/DL (8.5-10.1); CARBON DIOXIDE 29 MMOL/L (21-32); CHLORIDE 104 MMOL/L (98-107); POTASSIUM 3.2 MMOL/L (3.5-5.1); SODIUM 140 MMOL/L (136-145)
--- NOTE | 2020-04-16 09:37 | Nephrology Progress Note ---
Assessment/Plan Plan #VENTURA due to ATN in the setting of rhabdo- on CKD #hyperkalemia #Rhabdo #UTI sepsis #Lactic acidsis #AMS - toxic metabolic encephalopathy #Hypoxemic resp failure #afib with RVR #HLD #Obesity - lasix 40PO BID - replete K - monitor UOP - replete lytes - monitor K,bmp - plan for EGD/colo - weiss placed - strict I&Os - cardiology eval - amiodarone, diltiazem - s/p IV iron - monitor hemoglobin - norco dose adjuested - ID consult- - antibiotics per ID - follow cx - monitor BMP, mag and phos daily - PT 30 minutes of critical care time- greater than 50% on care coordination and counseling Subjective ROS Limited/Unobtainable: No Constitutional: Reports: malaise, weakness Subjective Cr stable very weak evaluated by GI s/p colo and EGD complains of leg pain now pain better on percocet Objective Objective Last 24 Hour Vital Signs Date Time Temp Pulse Resp B/P (MAP) Pulse Ox O2 Delivery O2 Flow Rate FiO2 04/16/20 08:00 97.4 97 21 153/56 (88) 96 04/16/20 05:46 157/68 04/16/20 05:46 94 157/68 04/16/20 04:49 96.4 04/16/20 04:00 96.4 94 22 157/68 (97) 95 04/16/20 00:00 98.0 87 20 136/79 (98) 97 04/15/20 21:19 91 158/86 04/15/20 21:18 158/86 04/15/20 21:00 Nasal Cannula 1.0 04/15/20 20:10 97 Nasal Cannula 2.0 28 04/15/20 20:00 97.5 91 24 158/86 (110) 97 04/15/20 16:00 98.2 98 19 156/68 (97) 98 04/15/20 13:08 132/85 04/15/20 13:08 88 132/85 04/15/20 12:00 97.9 88 18 132/85 (101) 95 Intake and Output 04/15/20 04/16/20 19:00 07:00 Intake Total 572 ml 360 ml Output Total 2700 ml 3330 ml Balance -2128 ml -2970 ml Intake Oral 572 ml Other 360 ml Output Urine Total 2700 ml 3330 ml Laboratory Tests 04/16/20 08:35: White Blood Count 5.0, Red Blood Count 2.89L, Hemoglobin 7.6L, Hematocrit 24.9L , Mean Corpuscular Volume 86, Mean Corpuscular Hemoglobin 26.4L, Mean Corpuscular Hemoglobin Concent 30.8L, Red Cell Distribution Width 16.5H, Platelet Count 436, Mean Platelet Volume 6.5, Neutrophils (%) (Auto) , Lymphocytes (%) (Auto) , Monocytes (%) (Auto) , Eosinophils (%) (Auto) , Basophils (%) (Auto) , Neutrophils % (Manual) [Pending], Lymphocytes % (Manual) [Pending], Platelet Estimate [Pending], Platelet Morphology [Pending], Sodium Level 140, Potassium Level 3.2L, Chloride Level 104, Carbon Dioxide Level 29, Anion Gap 7, Blood Urea Nitrogen 11, Creatinine 1.0, Estimat Glomerular Filtration Rate > 60, Glucose Level 125H, Calcium Level 8.5 Height (Feet): 5 Height (Inches): 8.00 Weight (Pounds): 293 Objective General Appearance: no distress Lines, tubes and drains: peripheral HEENT: normocephalic, atraumatic Neck: non-tender, normal alignment, supple Respiratory/Chest: lungs clear Cardiovascular/Chest: normal peripheral pulses, tachycardia, irregularly irregular Abdomen: soft Skin Exam: normal pigmentation Neurologic: nonfocal Venkat Montes M.D. Apr 16, 2020 09:37
--- NOTE | 2020-04-16 09:44 | Cardiology Progress Note ---
Assessment/Plan Status: stable Assessment/Plan Assessment/Plan Problem List: (1) Atrial flutter ICD Codes: I48.92 - Unspecified atrial flutter SNOMED: 1623830 (2) Hypertension ICD Codes: I10 - Essential (primary) hypertension SNOMED: 58510295 (3) Hyperkalemia ICD Codes: E87.5 - Hyperkalemia SNOMED: 05944038 (4) Acute encephalopathy ICD Codes: G93.40 - Encephalopathy, unspecified SNOMED: 7915723 (5) Acute and chronic respiratory failure with hypoxia ICD Codes: J96.21 - Acute and chronic respiratory failure with hypoxia SNOMED: 71335620, 201676036 (6) VENTURA (acute kidney injury) ICD Codes: N17.9 - Acute kidney failure, unspecified SNOMED: 8134306, 81714936 Status: deteriorating AFIB/Flutter: Converted to normal sinus Continue amiodarone to maintain sinus Cardizem for rate control Echocardiogram with normal LV function Ischemia evaluation at later date Hold anticoagulation given ischemic colitis/gastritis, patient would benefit for watchman as outpatient at [facility] for ablation as outpatient For PICC line today Subjective Cardiovascular: Reports: no symptoms Respiratory: Reports: no symptoms Gastrointestinal/Abdominal: Reports: no symptoms Genitourinary: Reports: no symptoms Subjective No acute events, patient stable on nasal canula and remains in normal sinus, no fevers, vitals stable, no complaints, stable on floors, amiodarone titrated down She could not complete stress test due to inability to lay flat Endoscopy showed ischemic gastritis/colitis, xarelto held, H/H stable For PICC line today Objective Last 24 Hour Vital Signs Date Time Temp Pulse Resp B/P (MAP) Pulse Ox O2 Delivery O2 Flow Rate FiO2 04/16/20 08:00 97.4 97 21 153/56 (88) 96 04/16/20 05:46 157/68 04/16/20 05:46 94 157/68 04/16/20 04:49 96.4 04/16/20 04:00 96.4 94 22 157/68 (97) 95 04/16/20 00:00 98.0 87 20 136/79 (98) 97 04/15/20 21:19 91 158/86 04/15/20 21:18 158/86 04/15/20 21:00 Nasal Cannula 1.0 04/15/20 20:10 97 Nasal Cannula 2.0 28 04/15/20 20:00 97.5 91 24 158/86 (110) 97 04/15/20 16:00 98.2 98 19 156/68 (97) 98 04/15/20 13:08 132/85 04/15/20 13:08 88 132/85 04/15/20 12:00 97.9 88 18 132/85 (101) 95 General Appearance: no apparent distress, alert EENT: PERRL/EOMI, normal ENT inspection, TMs normal, pharynx normal Neck: non-tender, normal alignment, supple, normal inspection, no JVD Rhythm: NSR Cardiovascular: normal peripheral pulses, normal rate, regular rhythm Respiratory/Chest: chest wall non-tender, lungs clear Abdomen: normal bowel sounds, non tender, soft Extremities: normal range of motion, non-tender, normal inspection Neurologic: client engagement specialist II-XII grossly normal, no motor/sensory deficits Intake and Output 04/15/20 04/16/20 19:00 07:00 Intake Total 572 ml 360 ml Output Total 2700 ml 3330 ml Balance -2128 ml -2970 ml Intake Oral 572 ml Other 360 ml Output Urine Total 2700 ml 3330 ml Laboratory Tests Test 04/16/20 08:35 White Blood Count 5.0 K/UL (4.8-10.8) Red Blood Count 2.89 M/UL (4.20-5.40) L Hemoglobin 7.6 G/DL (12.0-16.0) L Hematocrit 24.9 % (37.0-47.0) L Mean Corpuscular Volume 86 FL (80-99) Mean Corpuscular Hemoglobin 26.4 PG (27.0-31.0) L Mean Corpuscular Hemoglobin Concent 30.8 G/DL (32.0-36.0) L Red Cell Distribution Width 16.5 % (11.6-14.8) H Platelet Count 436 K/UL (150-450) Mean Platelet Volume 6.5 FL (6.5-10.1) Neutrophils (%) (Auto) % (45.0-75.0) Lymphocytes (%) (Auto) % (20.0-45.0) Monocytes (%) (Auto) % (1.0-10.0) Eosinophils (%) (Auto) % (0.0-3.0) Basophils (%) (Auto) % (0.0-2.0) Differential Total Cells Counted 100 Neutrophils % (Manual) 63 % (45-75) Lymphocytes % (Manual) 25 % (20-45) Monocytes % (Manual) 10 % (1-10) Eosinophils % (Manual) 2 % (0-3) Basophils % (Manual) 0 % (0-2) Band Neutrophils 0 % (0-8) Platelet Estimate Adequate Platelet Morphology Normal Hypochromasia 1+ Anisocytosis 1+ Sodium Level 140 MMOL/L (136-145) Potassium Level 3.2 MMOL/L (3.5-5.1) L Chloride Level 104 MMOL/L (98-107) Carbon Dioxide Level 29 MMOL/L (21-32) Anion Gap 7 mmol/L (5-15) Blood Urea Nitrogen 11 mg/dL (7-18) Creatinine 1.0 MG/DL (0.55-1.30) Estimat Glomerular Filtration Rate > 60 mL/min (>60) Glucose Level 125 MG/DL (74-106) H Calcium Level 8.5 MG/DL (8.5-10.1) Microbiology Date/Time Source Procedure Growth Status 04/13/20 17:15 Nasopharynx Coronavirus COVID-19 PCR ([facility]) - Final Complete Filsoof,Rafat Mckeon MD Apr 16, 2020 09:44
--- NOTE | 2020-04-16 10:04 | Pulmonology Progress Note ---
Subjective ROS Limited/Unobtainable: No Interval Events: None new Constitutional: Reports: other - last fever yesterday ; Denies: fever HEENT: Repors: no symptoms Gastrointestinal/Abdominal: Reports: no symptoms; Denies: nausea, vomiting, diarrhea Genitourinary: Reports: no symptoms Neurologic: Reports: no symptoms Psychiatric: Denies: depression Skin: Denies: rash Musculoskeletal: Denies: pain Allergies: Coded Allergies: LISINOPRIL (Verified Allergy, Unknown, Hives, 04/12/14) All Systems: reviewed and negative except above Objective Last 24 Hour Vital Signs Date Time Temp Pulse Resp B/P (MAP) Pulse Ox O2 Delivery O2 Flow Rate FiO2 04/16/20 08:00 97.4 97 21 153/56 (88) 96 04/16/20 05:46 157/68 04/16/20 05:46 94 157/68 04/16/20 04:49 96.4 04/16/20 04:00 96.4 94 22 157/68 (97) 95 04/16/20 00:00 98.0 87 20 136/79 (98) 97 04/15/20 21:19 91 158/86 04/15/20 21:18 158/86 04/15/20 21:00 Nasal Cannula 1.0 04/15/20 20:10 97 Nasal Cannula 2.0 28 04/15/20 20:00 97.5 91 24 158/86 (110) 97 04/15/20 16:00 98.2 98 19 156/68 (97) 98 04/15/20 13:08 132/85 04/15/20 13:08 88 132/85 04/15/20 12:00 97.9 88 18 132/85 (101) 95 Intake and Output 04/15/20 04/16/20 19:00 07:00 Intake Total 572 ml 360 ml Output Total 2700 ml 3330 ml Balance -2128 ml -2970 ml Intake Oral 572 ml Other 360 ml Output Urine Total 2700 ml 3330 ml General Appearance: no acute distress HEENT: normocephalic Respiratory: chest wall non-tender, lungs clear Cardiovascular: normal peripheral pulses Abdomen: normal bowel sounds Microbiology Date/Time Source Procedure Growth Status 04/13/20 17:15 Nasopharynx Coronavirus COVID-19 PCR ([facility]) - Final Complete Laboratory Tests 04/16/20 08:35: White Blood Count 5.0, Red Blood Count 2.89L, Hemoglobin 7.6L, Hematocrit 24.9L , Mean Corpuscular Volume 86, Mean Corpuscular Hemoglobin 26.4L, Mean Corpuscular Hemoglobin Concent 30.8L, Red Cell Distribution Width 16.5H, Platelet Count 436, Mean Platelet Volume 6.5, Neutrophils (%) (Auto) , Lymphocytes (%) (Auto) , Monocytes (%) (Auto) , Eosinophils (%) (Auto) , Basophils (%) (Auto) , Differential Total Cells Counted 100, Neutrophils % ( Manual) 63, Lymphocytes % (Manual) 25, Monocytes % (Manual) 10, Eosinophils % ( Manual) 2, Basophils % (Manual) 0, Band Neutrophils 0, Platelet Estimate Adequate, Platelet Morphology Normal, Hypochromasia 1+, Anisocytosis 1+, Sodium Level 140, Potassium Level 3.2L, Chloride Level 104, Carbon Dioxide Level 29, Anion Gap 7, Blood Urea Nitrogen 11, Creatinine 1.0, Estimat Glomerular Filtration Rate > 60, Glucose Level 125H, Calcium Level 8.5 Current Medications Medications (Trade) Dose Ordered Sig/Debbie Route PRN Reason Start Time Stop Time Status Last Admin Dose Admin Acetaminophen (Tylenol) 650 mg Q4H PRN ORAL Mild Pain (Pain Scale 1-3) 04/14/20 06:45 04/25/20 21:14 Acetaminophen (Tylenol) 650 mg Q4H PRN ORAL Temp >100.5 04/14/20 06:45 04/25/20 21:14 Al Hydroxide/Mg Hydroxide (Mylanta II) 30 ml Q6H PRN ORAL dyspepsia 04/14/20 06:50 04/25/20 06:49 Amiodarone HCl (Cordarone) 200 mg DAILY ORAL 04/14/20 09:00 07/05/20 20:59 04/16/20 08:31 Bisacodyl (Dulcolax) 10 mg HSPRN PRN RECTAL Constipation 04/14/20 06:50 06/24/20 06:49 Chlorhexidine Gluconate (Laurie-Hex 2%) 1 applic DAILY@1999 TOPIC 04/14/20 20:00 06/26/20 19:59 Chlorhexidine Gluconate (Laurie-Hex 2%) 1 applic DAILY@1999 TOPIC 04/16/20 20:00 07/15/20 19:59 Dextrose (Dextrose 50%) 25 ml Q30M PRN IV Hypoglycemia 04/14/20 06:45 06/24/20 21:14 Dextrose (Dextrose 50%) 50 ml Q30M PRN IV Hypoglycemia 04/14/20 06:45 06/24/20 21:14 Diltiazem HCl (Cardizem) 90 mg EVERY 8 HOURS ORAL 04/14/20 14:00 05/04/20 14:59 04/16/20 05:46 Diphenhydramine HCl (Benadryl) 25 mg Q6H PRN ORAL Itching/Pruritis 04/14/20 06:53 04/25/20 06:52 Docusate Sodium (Colace) 100 mg Q12HR ORAL 04/14/20 09:00 04/29/20 08:59 04/15/20 20:50 Furosemide (Lasix) 40 mg EVERY 12 HOURS ORAL 04/15/20 09:00 05/15/20 08:59 04/16/20 08:32 Gabapentin (Neurontin) 300 mg BEDTIME ORAL 04/14/20 21:00 04/26/20 20:59 04/15/20 20:50 Heparin Sodium/ Sodium Chloride (Heparin 1000 units/500ml Premix) 1,000 unit ONCE IV 04/16/20 06:00 04/16/20 18:00 Hydralazine HCl (Apresoline) 100 mg Q8HR ORAL 04/14/20 14:00 07/10/20 21:59 04/16/20 05:46 Hydromorphone HCl (Dilaudid) 1 mg Q4H PRN SUBQ Breakthrough 04/14/20 15:00 04/21/20 14:59 04/15/20 09:03 Lidocaine HCl (Xylocaine 1% 30ml) 30 ml ONCE INJ 04/16/20 06:00 04/16/20 18:00 Magnesium Hydroxide (Mom) 30 ml HSPRN PRN ORAL Constipation 04/14/20 07:02 05/14/20 07:01 Methocarbamol (Robaxin) 500 mg QID PRN ORAL spasms 04/14/20 14:30 05/14/20 14:29 04/14/20 23:20 Metoclopramide HCl (Reglan) 10 mg Q6H PRN IVP Nausea & Vomiting 04/14/20 09:15 04/25/20 21:14 Micafungin Sodium 100 mg/Sodium Chloride 100 ml @ 100 mls/hr Q24H IVPB 04/14/20 20:00 04/16/20 19:59 Ondansetron HCl (Zofran) 4 mg Q6H PRN IVP Nausea & Vomiting 04/14/20 07:04 04/25/20 07:03 Oxycodone/ Acetaminophen (Percocet 10/325) 1 tab Q4H PRN ORAL Severe Pain (Pain Scale 7-10) 04/15/20 13:30 04/22/20 13:29 04/16/20 08:32 Pantoprazole (Protonix) 40 mg DAILY IVP 04/14/20 09:00 05/01/20 08:59 04/14/20 08:35 Polyethylene Glycol (Miralax) 17 gm HSPRN PRN ORAL Constipation 04/14/20 07:04 05/14/20 07:03 Polymyxin B Sulfate 016172 units/Dextrose 550 ml @ 550 mls/hr EVERY 12 HOURS IVPB 04/14/20 09:00 04/17/20 11:59 04/14/20 10:45 Potassium Chloride (K-Dur) 40 meq ONCE ONCE ORAL 04/16/20 09:45 04/16/20 09:46 UNV Rivaroxaban (Xarelto) 15 mg DAILY ORAL 04/14/20 09:00 06/29/20 08:59 04/14/20 08:36 Vancomycin HCl (Vanco pharmacy to dose) 1 ea DAILY PRN MISC Per rx protocol 04/14/20 09:00 05/12/20 17:44 Vancomycin/Sodium Chloride 275 ml @ 137.5 mls/ hr Q24H IVPB 04/15/20 08:00 04/20/20 09:00 Assessment/Plan Assessment/Plan IMPRESSION: 1. Hyperkalemia. Corrected 2. Tachycardia; resolved 3. Sepsis 4. Hypertension. 5. Seizure disorder. 6. Acute renal failure. 7. Respiratory failure; extubated 04/05/20 DISCUSSION: Continue O2 Desai/colostomy care Speech and swallow therapy Sevne Yao Omar Syed MD Apr 16, 2020 10:04
--- NOTE | 2020-04-16 10:22 | General Progress Note ---
Assessment/Plan Status: stable Assessment/Plan: 1. History of diabetes. 2. Obesity. 3. Hypertension. 4. Hypercholesterolemia. 5. Diverticulosis/diverticulitis. 6. History of uterine fibroids. 7. Anemi 8. Stool ob positive x3 9. A.fib EGD and colonoscopy: SUMMARY OF FINDINGS: 1. Gastritis, status post biopsy. 2. Ulcerations behind the colostomy bag, most probably ischemic in nature, status post biopsy. RECOMMENDATIONS: Follow up biopsy results and treat accordingly. fu H&H consider adding carafate per colostomy prn blood transfusion fu speech eval Subjective ROS Limited/Unobtainable: Yes Allergies: Coded Allergies: LISINOPRIL (Verified Allergy, Unknown, Hives, 04/12/14) Objective Last 24 Hour Vital Signs Date Time Temp Pulse Resp B/P (MAP) Pulse Ox O2 Delivery O2 Flow Rate FiO2 04/16/20 08:00 97.4 97 21 153/56 (88) 96 04/16/20 05:46 157/68 04/16/20 05:46 94 157/68 04/16/20 04:49 96.4 04/16/20 04:00 96.4 94 22 157/68 (97) 95 04/16/20 00:00 98.0 87 20 136/79 (98) 97 04/15/20 21:19 91 158/86 04/15/20 21:18 158/86 04/15/20 21:00 Nasal Cannula 1.0 04/15/20 20:10 97 Nasal Cannula 2.0 28 04/15/20 20:00 97.5 91 24 158/86 (110) 97 04/15/20 16:00 98.2 98 19 156/68 (97) 98 04/15/20 13:08 132/85 04/15/20 13:08 88 132/85 04/15/20 12:00 97.9 88 18 132/85 (101) 95 Intake and Output 04/15/20 04/16/20 19:00 07:00 Intake Total 572 ml 360 ml Output Total 2700 ml 3330 ml Balance -2128 ml -2970 ml Intake Oral 572 ml Other 360 ml Output Urine Total 2700 ml 3330 ml Laboratory Tests 04/16/20 08:35: White Blood Count 5.0, Red Blood Count 2.89L, Hemoglobin 7.6L, Hematocrit 24.9L , Mean Corpuscular Volume 86, Mean Corpuscular Hemoglobin 26.4L, Mean Corpuscular Hemoglobin Concent 30.8L, Red Cell Distribution Width 16.5H, Platelet Count 436, Mean Platelet Volume 6.5, Neutrophils (%) (Auto) , Lymphocytes (%) (Auto) , Monocytes (%) (Auto) , Eosinophils (%) (Auto) , Basophils (%) (Auto) , Differential Total Cells Counted 100, Neutrophils % ( Manual) 63, Lymphocytes % (Manual) 25, Monocytes % (Manual) 10, Eosinophils % ( Manual) 2, Basophils % (Manual) 0, Band Neutrophils 0, Platelet Estimate Adequate, Platelet Morphology Normal, Hypochromasia 1+, Anisocytosis 1+, Sodium Level 140, Potassium Level 3.2L, Chloride Level 104, Carbon Dioxide Level 29, Anion Gap 7, Blood Urea Nitrogen 11, Creatinine 1.0, Estimat Glomerular Filtration Rate > 60, Glucose Level 125H, Calcium Level 8.5 Height (Feet): 5 Height (Inches): 8.00 Weight (Pounds): 293 General Appearance: alert EENT: normal ENT inspection Neck: supple Cardiovascular: normal rate Respiratory/Chest: decreased breath sounds Abdomen: normal bowel sounds, non tender, soft Extremities: non-tender Arturo Boyd MD Apr 16, 2020 10:22
--- NOTE | 2020-04-16 11:26 | Cardiac Electrophysiology PN ---
Assessment/Plan Assessment/Plan 1. Atrial flutter with rapid ventricular response of 170s. On Cardizem 90 OG tid and amiodarone 200 po daily On Xarelto 15 mg daily. Would benefit from atrial flutter ablation when stable Patient couldn't complete the stress test. 2. Hypertension. On Cardizem 3. S/P Respiratory failure, extubated 4. Acute renal failure, that is improving. 5. Normal left ventricular systolic function by echo on March 26, 2020, with EF of 55%. 6. Severe bilateral LE edema. On Lasix 40 iv bid. Bilateral LE duplex, showed no DVT 7. Rectal bleed. S/P EGD and Colonoscopy by Dr boyd that showed Gastritis and Ulcerations behind the colostomy bag, most probably ischemic in nature, status post biopsy. ADOLFO RN Subjective Subjective On PO Amiodarone and Cardizem. Stress test cancelled as she couldn't tolerate it. Had EGD and colonoscopy for positive OB by Dr Boyd RN in room. Ruled out for Covid. Diuresing very well and edema has subsided. Objective Last 24 Hour Vital Signs Date Time Temp Pulse Resp B/P (MAP) Pulse Ox O2 Delivery O2 Flow Rate FiO2 04/16/20 09:00 Nasal Cannula 1.0 04/16/20 08:00 97.4 97 21 153/56 (88) 96 04/16/20 05:46 157/68 04/16/20 05:46 94 157/68 04/16/20 04:49 96.4 04/16/20 04:00 96.4 94 22 157/68 (97) 95 04/16/20 00:00 98.0 87 20 136/79 (98) 97 04/15/20 21:19 91 158/86 04/15/20 21:18 158/86 04/15/20 21:00 Nasal Cannula 1.0 04/15/20 20:10 97 Nasal Cannula 2.0 28 04/15/20 20:00 97.5 91 24 158/86 (110) 97 04/15/20 16:00 98.2 98 19 156/68 (97) 98 04/15/20 13:08 132/85 04/15/20 13:08 88 132/85 04/15/20 12:00 97.9 88 18 132/85 (101) 95 Intake and Output 04/15/20 04/16/20 19:00 07:00 Intake Total 572 ml 360 ml Output Total 2700 ml 3330 ml Balance -2128 ml -2970 ml Intake Oral 572 ml Other 360 ml Output Urine Total 2700 ml 3330 ml Laboratory Tests Test 04/16/20 08:35 White Blood Count 5.0 K/UL (4.8-10.8) Red Blood Count 2.89 M/UL (4.20-5.40) L Hemoglobin 7.6 G/DL (12.0-16.0) L Hematocrit 24.9 % (37.0-47.0) L Mean Corpuscular Volume 86 FL (80-99) Mean Corpuscular Hemoglobin 26.4 PG (27.0-31.0) L Mean Corpuscular Hemoglobin Concent 30.8 G/DL (32.0-36.0) L Red Cell Distribution Width 16.5 % (11.6-14.8) H Platelet Count 436 K/UL (150-450) Mean Platelet Volume 6.5 FL (6.5-10.1) Neutrophils (%) (Auto) % (45.0-75.0) Lymphocytes (%) (Auto) % (20.0-45.0) Monocytes (%) (Auto) % (1.0-10.0) Eosinophils (%) (Auto) % (0.0-3.0) Basophils (%) (Auto) % (0.0-2.0) Differential Total Cells Counted 100 Neutrophils % (Manual) 63 % (45-75) Lymphocytes % (Manual) 25 % (20-45) Monocytes % (Manual) 10 % (1-10) Eosinophils % (Manual) 2 % (0-3) Basophils % (Manual) 0 % (0-2) Band Neutrophils 0 % (0-8) Platelet Estimate Adequate Platelet Morphology Normal Hypochromasia 1+ Anisocytosis 1+ Sodium Level 140 MMOL/L (136-145) Potassium Level 3.2 MMOL/L (3.5-5.1) L Chloride Level 104 MMOL/L (98-107) Carbon Dioxide Level 29 MMOL/L (21-32) Anion Gap 7 mmol/L (5-15) Blood Urea Nitrogen 11 mg/dL (7-18) Creatinine 1.0 MG/DL (0.55-1.30) Estimat Glomerular Filtration Rate > 60 mL/min (>60) Glucose Level 125 MG/DL (74-106) H Calcium Level 8.5 MG/DL (8.5-10.1) Microbiology Date/Time Source Procedure Growth Status 04/13/20 17:15 Nasopharynx Coronavirus COVID-19 PCR ([facility]) - Final Complete Objective NECK: No JVD LUNGS: Coarse rhonchi. CARDIOVASCULAR: Regular S1 and S2 with no gallop. ABDOMEN: Soft. EXTREMITIES: 1 plus pitting edema. Carlos Dean MD Apr 16, 2020 11:26
[2020-04-16 12:00] VITALS: BP 140/64
--- NOTE | 2020-04-16 14:15 | NUR ---
CASE MANAGEMENT:REVIEW SI;ATRIAL FLUTTER W/RVR. BLE EDEMA. RECTAL BLEEDING. SEPSIS. ARF. 96.4 97 22 157/68 95% 1L NC H/H 7.6/24.9 K+ 3.2 IS; K+DUR PO ONCE HEPARIN IV LASIX IV Q12 VANCOMYCIN IV Q24 MICAFUNGIN IV Q24 DILAUDID IV Q4 PRN HYDRALAZINE PO Q8 MED SURG STATUS DCP;PATIENT HAS BEEN ACCEPT[facility] TO [facility] ON
--- NOTE | 2020-04-16 14:53 | NUR ---
ST PROGRESS REPORT AND TX SESSION: Patient being seen for cognitive re-training and dysphagia tx and management. Patient is now s/p colonoscopy, seen at bedside and agreeable to [facility] intervention session. Patient's current diet orders are for Cardiac Regular texture with Thin Liquids. DYSPHAGIA GOALS: GOAL MET: Patient and caregivers are aware of Patient's aspiration risks and importance of oral hygiene/care. GOAL NOT MET: Patient does not consistently consume >75% of regular solid diet. DISCONTINUED GOAL: MBSS not complete, not indicated at this time. PO INTAKE PER CARE ACTIVITY: 04/15/20 B: 25% L: 50% D: 25% 04/14/20 B: ? L: 50% D: 50% 04/13/20 B: NPO L: 75% D: 100% COGNITIVE RE-TRAINING GOALS: GOAL MET: Patient is orientated x4 with minimal cues. GOAL MET: Patient is able to generate >10 items per category in one minute with min cues. GOAL NOT MET: Patient will solve simple problem solving tasks at 80% accuracy with min prompts. Patient completed the SLUMS ([facility] Scale) on 04/12/20 achieving a score of +13/30 indicated a mod/severe cognitive decline. Patient was seen today, agreeable to re-evaluation with standardized evaluation SLUMS, achieving a score of +24/30, indicating a mild neurocognitive disorder. --->Points missed during delayed recall task (+3/5 items recalled), during mental manipulation task reverse digit span, verbal problem solving task with money, and during story recall/answering questions from verbally presented story. Patient endorses ongoing difficulties with memory for a few years, reports that Patient typically uses a day financial planner due to difficulties with memory, however, of recent Patient has been unable to use a day financial planner due to high pain levels resulting in difficulty focusing and remembering to even check financial planner. Patient states when initially completing evaluation (on 04/12/20), Patient was experiencing a lot of pain. Patient now states taking a stronger pain medication and reports that it is more effective in reducing the severity of pain. --->Of note, Patient was observed with 2 instances of high levels of pain characterized by Patient pausing to talk, wincing in pain, and holding breath; these moments were fleeting and Patient was able to re-focus within 10 seconds. STRAIGHTENER provided Patient documentations/hand-outs of strategies and techniques to improve Patient's memory and ability to independently complete ADLs and preferred activities. Patient reports no swallowing difficulties during meals at this time, Patient provided with education on safe swallow strategies and importance of adequate PO nutrition/hydration. Patient continues to benefit from [facility] intervention focusing on cognitive re-training and for dysphagia management/tx due to cognitive communicative deficits with memory and higher level cognitive tasks (mental manipulation, verbal problem solving) and due to inconsistent PO intake of current diet. STRAIGHTENER plans to follow-up for cognitive re-training and for dysphagia management to monitor need for diet modifications given ongoing inconsistent PO intake. STRAIGHTENER educted Patient on plan to continue to follow-up, Patient expressed understanding. STRAIGHTENER [phone]
--- NOTE | 2020-04-16 15:30 | NUR ---
NURSE NOTES: Pt off unit for PICC line placement today.
--- NOTE | 2020-04-16 15:30 | General Progress Note ---
Assessment/Plan Problem List: (1) VENTURA (acute kidney injury) ICD Codes: N17.9 - Acute kidney failure, unspecified SNOMED: 1252336, 86336271 (2) Acute encephalopathy ICD Codes: G93.40 - Encephalopathy, unspecified SNOMED: 7260436 (3) Hypertension ICD Codes: I10 - Essential (primary) hypertension SNOMED: 79868135 (4) Atrial flutter ICD Codes: I48.92 - Unspecified atrial flutter SNOMED: 5073416 (5) Sacral decubitus ulcer ICD Codes: L89.159 - Pressure ulcer of sacral region, unspecified stage SNOMED: 327073362 (6) Chronic back pain ICD Codes: M54.9 - Dorsalgia, unspecified; G89.29 - Other chronic pain SNOMED: 131599964 (7) Sepsis ICD Codes: A41.9 - Sepsis, unspecified organism SNOMED: 48600530 (8) Hyperkalemia ICD Codes: E87.5 - Hyperkalemia SNOMED: 45402432 Status: stable Assessment/Plan: # Pain -Continue Robaxin for spasms - cont norco and morphine, change breakthrough to dilaudid; pain reports that medication is improved, [place] changed to Percocet which seems to work better for # fever, resolved - on broad antibiotics for multiple infections resolved after addition of vancomycin 04/12- -Infectious disease following, appreciate recommendations -Follow-up blood culture - 0 lactic acid. - UA, neg - chest x-ray stable - C. difficile if diarrhea.: Negative -Patient to receive PICC line on 04/16, has no IV access at this time -Follow-up ID for discharge recommendations #Acute Hypoxic Resp Failure, resolved - s/p extubation and ICU course - now on NC - CTM resp status - lasix per cards and renal - wean o2 #Afib w/ RVR, now in SR, off heparin gtt and on Xarelto - cont amiodarone , cardizem and hydralazine - Cardiology and EP following, appreciate recs - ischemic w/u and ablation prior to dc - DC AC given drop in Hb and + FOBT -> Trend CBC, transfuse for Hb < 7, #Acute Renal Failure 2/2 ATN from Rhabo #Rhabdo - resolved - CTM - Nephrology following, appreciate recs #GI Bleed, Acute Anemia due to blood loss, Iron Deficient - GI consult (Dr Boyd), f/u rec's-> plan for EGD, 04/16 showing gastritis, ulcers near ostomy bag likely ischemic, biopsies obtained, follow-up pathology - fobt positive x 3 -Hemoglobin stable 7.4 #Sepsis, HCAP/UTI, COVID negative , + ESBL; see above - Sputum w/ multiple MDR organisms, now requiring aggressive AB - Now Meropenem, Micagungin, Polymoxin, S/P Vancomyin, Cefepime, Flagyl #Seizure vs prolonged period of immobility # S/P Acute metabolic Encephalopathy #Hx of Colectomy w/ Colostomy DVT and GI ppx; xarelto , holding for bleeding: Restart once cleared by gastroenterology Full Code Dispo 1-2d, pending rehab placement: Accepted at [facility] I spent 38min on this encounter w/ 19min on care/coordination and counseling Subjective Date patient seen: Apr 16, 2020 Time patient seen: 14:11 Allergies: Coded Allergies: LISINOPRIL (Verified Allergy, Unknown, Hives, 04/12/14) Subjective Status post EGD that shows gastritis, and superficial ulcers Hemoglobin stable 7.4 Patient has no IV, plan for PICC line today Objective Last 24 Hour Vital Signs Date Time Temp Pulse Resp B/P (MAP) Pulse Ox O2 Delivery O2 Flow Rate FiO2 04/16/20 14:24 140/64 04/16/20 14:24 94 140/64 04/16/20 12:00 97.8 94 20 140/64 (89) 97 04/16/20 09:00 Nasal Cannula 1.0 04/16/20 08:00 97.4 97 21 153/56 (88) 96 04/16/20 05:46 157/68 04/16/20 05:46 94 157/68 04/16/20 04:49 96.4 04/16/20 04:00 96.4 94 22 157/68 (97) 95 04/16/20 00:00 98.0 87 20 136/79 (98) 97 04/15/20 21:19 91 158/86 04/15/20 21:18 158/86 04/15/20 21:00 Nasal Cannula 1.0 04/15/20 20:10 97 Nasal Cannula 2.0 28 04/15/20 20:00 97.5 91 24 158/86 (110) 97 04/15/20 16:00 98.2 98 19 156/68 (97) 98 Intake and Output 04/15/20 04/16/20 19:00 07:00 Intake Total 572 ml 360 ml Output Total 2700 ml 3330 ml Balance -2128 ml -2970 ml Intake Oral 572 ml Other 360 ml Output Urine Total 2700 ml 3330 ml Laboratory Tests 04/16/20 08:35: White Blood Count 5.0, Red Blood Count 2.89L, Hemoglobin 7.6L, Hematocrit 24.9L , Mean Corpuscular Volume 86, Mean Corpuscular Hemoglobin 26.4L, Mean Corpuscular Hemoglobin Concent 30.8L, Red Cell Distribution Width 16.5H, Platelet Count 436, Mean Platelet Volume 6.5, Neutrophils (%) (Auto) , Lymphocytes (%) (Auto) , Monocytes (%) (Auto) , Eosinophils (%) (Auto) , Basophils (%) (Auto) , Differential Total Cells Counted 100, Neutrophils % ( Manual) 63, Lymphocytes % (Manual) 25, Monocytes % (Manual) 10, Eosinophils % ( Manual) 2, Basophils % (Manual) 0, Band Neutrophils 0, Platelet Estimate Adequate, Platelet Morphology Normal, Hypochromasia 1+, Anisocytosis 1+, Sodium Level 140, Potassium Level 3.2L, Chloride Level 104, Carbon Dioxide Level 29, Anion Gap 7, Blood Urea Nitrogen 11, Creatinine 1.0, Estimat Glomerular Filtration Rate > 60, Glucose Level 125H, Calcium Level 8.5 Height (Feet): 5 Height (Inches): 8.00 Weight (Pounds): 293 Objective GENERAL: No acute distress, appears comfortable, alert, obese, anasarca HEENT: NCAT, non-icteric eyes, pupils PERRLA Neck: No cervical lymphadenopathy, trachea midline CV: Regular rate and rhythm, no murmurs rubs or gallops RESP: Clear to auscultation bilaterally, no wheezes/rhonchi/crackles ABD: Ostomy noted with liquid hate colored stool, soft, non-distended, no TTP EXT: Normal muscle tone, +5/5 muscle strength, 1+ edema bilateral lower extremities NEURO: No obvious deficits, alert and oriented x3 Bell Tanner DO Apr 16, 2020 15:30
--- NOTE | 2020-04-16 15:44 | Pre-Procedure Note/Attestation ---
Pre-Procedure Note/Attestation Complete Prior to Procedure Planned Procedure: not applicable Procedure Narrative: PICC Indications for Procedure Pre-Operative Diagnosis: needs correction IV access Attestation I attest that I discussed the nature of the procedure; its benefits; risks and complications; and alternatives (and the risks and benefits of such alternatives ), prior to the procedure, with the patient (or the patient's legal software support representative). I attest that, if there was a reasonable possibility of needing a blood transfusion, the patient (or the patient's legal software support representative) was given the [facility] standardized written summary, pursuant to the [place] Blood Safety Act ([place] Health and Safety Code # 1645, as amended). I attest that I re-evaluated the patient just prior to the surgery and that there has been no change in the patient's H&P, except as documented below: Arnold Bradley MD Apr 16, 2020 15:44
--- NOTE | 2020-04-16 15:45 | Brief Operative Note ---
Immediate Post Operative Note Operative Note Pre-op Diagnosis: needs terminal system operator IV access Procedure: PICC L arm Surgeon: Karol BRADLEY Anesthesia: local Specimen: none Complications: none Fluids: none Implant(s) used?: No Arnold Bradley MD Apr 16, 2020 15:45
[2020-04-16 16:00] VITALS: BP 146/62
--- NOTE | 2020-04-16 16:05 | NUR ---
NURSE NOTES: Pt received back in room in stable condition. VSS. PICC line noted on ANY with double lumen. Dressing intact, clean, and dry with biopatch on. Pt made comfortable in room.
--- NOTE | 2020-04-16 16:15 | Surgery Progress Note ---
Surgery Progress Note Subjective Symptoms: improved, tolerating diet, voiding well, passing flatus Objective Last 24 Hour Vital Signs Date Time Temp Pulse Resp B/P (MAP) Pulse Ox O2 Delivery O2 Flow Rate FiO2 04/16/20 14:24 140/64 04/16/20 14:24 94 140/64 04/16/20 12:00 97.8 94 20 140/64 (89) 97 04/16/20 09:00 Nasal Cannula 1.0 04/16/20 08:00 97.4 97 21 153/56 (88) 96 04/16/20 05:46 157/68 04/16/20 05:46 94 157/68 04/16/20 04:49 96.4 04/16/20 04:00 96.4 94 22 157/68 (97) 95 04/16/20 00:00 98.0 87 20 136/79 (98) 97 04/15/20 21:19 91 158/86 04/15/20 21:18 158/86 04/15/20 21:00 Nasal Cannula 1.0 04/15/20 20:10 97 Nasal Cannula 2.0 28 04/15/20 20:00 97.5 91 24 158/86 (110) 97 I&O Intake and Output 04/15/20 04/16/20 19:00 07:00 Intake Total 572 ml 360 ml Output Total 2700 ml 3330 ml Balance -2128 ml -2970 ml Intake Oral 572 ml Other 360 ml Output Urine Total 2700 ml 3330 ml Cardiovascular: RSR Respiratory: decreased breath sounds Abdomen: soft, non-tender, present bowel sounds Extremities: no cyanosis Laboratory Tests Test 04/16/20 08:35 White Blood Count 5.0 K/UL (4.8-10.8) Red Blood Count 2.89 M/UL (4.20-5.40) L Hemoglobin 7.6 G/DL (12.0-16.0) L Hematocrit 24.9 % (37.0-47.0) L Mean Corpuscular Volume 86 FL (80-99) Mean Corpuscular Hemoglobin 26.4 PG (27.0-31.0) L Mean Corpuscular Hemoglobin Concent 30.8 G/DL (32.0-36.0) L Red Cell Distribution Width 16.5 % (11.6-14.8) H Platelet Count 436 K/UL (150-450) Mean Platelet Volume 6.5 FL (6.5-10.1) Neutrophils (%) (Auto) % (45.0-75.0) Lymphocytes (%) (Auto) % (20.0-45.0) Monocytes (%) (Auto) % (1.0-10.0) Eosinophils (%) (Auto) % (0.0-3.0) Basophils (%) (Auto) % (0.0-2.0) Differential Total Cells Counted 100 Neutrophils % (Manual) 63 % (45-75) Lymphocytes % (Manual) 25 % (20-45) Monocytes % (Manual) 10 % (1-10) Eosinophils % (Manual) 2 % (0-3) Basophils % (Manual) 0 % (0-2) Band Neutrophils 0 % (0-8) Platelet Estimate Adequate Platelet Morphology Normal Hypochromasia 1+ Anisocytosis 1+ Sodium Level 140 MMOL/L (136-145) Potassium Level 3.2 MMOL/L (3.5-5.1) L Chloride Level 104 MMOL/L (98-107) Carbon Dioxide Level 29 MMOL/L (21-32) Anion Gap 7 mmol/L (5-15) Blood Urea Nitrogen 11 mg/dL (7-18) Creatinine 1.0 MG/DL (0.55-1.30) Estimat Glomerular Filtration Rate > 60 mL/min (>60) Glucose Level 125 MG/DL (74-106) H Calcium Level 8.5 MG/DL (8.5-10.1) Plan Problems: (1) Atrial flutter (2) Hypertension (3) Acute encephalopathy (4) VENTURA (acute kidney injury) (5) Acute and chronic respiratory failure with hypoxia (6) Abscess (7) Fistula (8) Sciatica neuralgia (9) Uncontrolled seizures (10) Forgetfulness (11) Sacral decubitus ulcer Assessment & Plan: Patient identified to have a sacral deep tissue injury upon admission Currently intensive care unit on support Care plan initiated (12) Chronic back pain (13) Overdose of opiate or related narcotic (14) Cellulitis of left leg (15) Pericolonic abscess due to diverticulitis (16) Ventral incisional hernia Assessment & Plan: History of colon resection colostomy Ventral incisional hernia reducible No acute invention monitor parastomal hernia stable ostomy viable and functional no acute intervention planned (17) Chronic pain of both knees (18) Dehydration (19) Hyperkalemia (20) Sepsis Assessment & Plan: Patient admitted identified to have sepsis leukocytosis tachycardia abnormal labs lactic acidosis. Chest x-ray reviewed. Imaging noted. Micro noted. Intensive care unit on support appreciate ICU care Nutritional optimization IV fluids IV antibiotics as per infectious disease tube feeds once stable will follow with recommendations thank you for letting participate patient's care Urosepsis on abx extubated improving downgrade upper ext edema noted US on coag as per heme Patient reports not liking current diet texture of Moist Puree with Thin Liquids. Patient completed PO intake of solids (crackers), Patient's swallow is grossly functional. Plan: 1. Upgrade Diet Texture to Soft Solids and continue Thin Liquids; type/ supplements per RD. 2. Nursing to assist Patient with oral care BID. DAILY ESTIMATED NEEDS: Needs based on Pulmonary, sepsis, wound, VENTURA 75.8kg adj 20-30 kcals/kg [id number] total kcals 1.25-1.5 g protein/kg 94-114 g total protein 25-30 mL/kg 0683-9281 total fluid mLs NUTRITION DIAGNOSIS: Swallowing difficulty r/t respiratory status as evidenced by pt orally intubated, on NGT feeds-> now extubated, pending DRIP BOX TENDER eval. PO DIET RECOMMENDATIONS-->>> Cardiac diet / texture per DRIP BOX TENDER ENTERAL NUTRITION RECOMMENDATIONS: VITAL AF 1.2 @55ml/hr x24 hrs to provide 1320ml, 1584 kcal, 99g pro, 1071ml free H2O - Maintain at goal as tolerated if not cleared for oral diet by DRIP BOX TENDER - Flush per MD/ HOB over 30 degree ADDITIONAL RECOMMENDATIONS: 1) Maintain calibrated bed scale wts (248lbs vs 217lbs last adm) 2) Monitor renal fxn and lytes closely, need for renal formula Creat wnl; lytes low (K,phos,mg) 3) Wound healing: ZnSO4 220mg QD x 10 days+ Boris BID via NGT hold vit C until renal fxn improves 4) NISS w/ TF, h/o DM 5) Monitor po intake if cleared for oral diet; need for snacks/supplements Julian gIlesias Apr 16, 2020 16:15
--- NOTE | 2020-04-16 16:47 | Infectious Diseases Prog Note ---
Assessment/Plan Assessment/Plan ASSESSMENT AND PLAN: 1. esbl e.coli pna/acinetobacter pna, uti, sepsis, fevers, leukocytosis, a.flutter, respiratory failure, atx, dony, + ua, atx fungemia risk ? recurrent sepsis, persistent fevers - fevers better, cultures negative, chest x-ray stable - polymyxin, micafungin and vancomycin x 3 days - 2 week tx course for MDR pna - cultures negative - covid-19 testing negative x 4 - remove isolation - monitor labs - d/w RN and patient 2. Respiratory failure, on vent. 3. Renal failure. 4. Diabetes. 5. Hypertension. 6. Diabetes and hypertension, treatment per primary care team. 7. Patient with history of altered mental status. 8. Seizure history. 9. Chronic neck pain. 10. Acute kidney injury and renal failure. 11. Allergies to lisinopril. 12. Social history is negative. 13. Family history is noncontributory. 14. MAR was noted. 15. Case was discussed with RN. 16. ICU care. 17. Skin care. 18. Continue treatment per primary consultants. Subjective Constitutional: Denies: fever HEENT: Denies: congestion Respiratory: Denies: shortness of breath Cardiovascular: Denies: chest pain Gastrointestinal/Abdominal: Denies: nausea, vomiting, diarrhea Genitourinary: Reports: other - + weiss Neurologic: Denies: headache Psychiatric: Denies: depression Skin: Denies: rash Hematologic: Denies: bleeding Musculoskeletal: Denies: pain Allergies: Coded Allergies: LISINOPRIL (Verified Allergy, Unknown, Hives, 04/12/14) Objective Last 24 Hour Vital Signs Date Time Temp Pulse Resp B/P (MAP) Pulse Ox O2 Delivery O2 Flow Rate FiO2 04/16/20 14:24 140/64 04/16/20 14:24 94 140/64 04/16/20 12:00 97.8 94 20 140/64 (89) 97 04/16/20 09:00 Nasal Cannula 1.0 04/16/20 08:00 97.4 97 21 153/56 (88) 96 04/16/20 05:46 157/68 04/16/20 05:46 94 157/68 04/16/20 04:49 96.4 04/16/20 04:00 96.4 94 22 157/68 (97) 95 04/16/20 00:00 98.0 87 20 136/79 (98) 97 04/15/20 21:19 91 158/86 04/15/20 21:18 158/86 04/15/20 21:00 Nasal Cannula 1.0 04/15/20 20:10 97 Nasal Cannula 2.0 28 04/15/20 20:00 97.5 91 24 158/86 (110) 97 Height (Feet): 5 Height (Inches): 8.00 Weight (Pounds): 293 General Appearance: no acute distress HEENT: normocephalic, atraumatic, anicteric, mucous membranes moist Respiratory/Chest: no accessory muscle use, crackles/rales, rhonchi - bilaterally Cardiovascular: normal rate, regular rhythm, no gallop/murmur, no JVD Abdomen: normal bowel sounds, soft, non tender, no organomegaly, non distended Genitourinary: other - no weiss Extremities: no cyanosis Skin: no rash Neurologic/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 There is some increased atelectasis at the right lung base. There is minimal left basilar atelectasis as well. The heart size is normal. Impression: Increased right basilar atelectasis. Otherwise little price changer one day, findings as noted 04/03/20 - Procedure: XRAY Chest 1v Procedure: XRAY Chest 1v Reason for study: Shortness of breath. Comparison films: 03/29/2020. FINDINGS: Endotracheal tube, NG tube and left PICC line remain in place. Vascularity is normal. There is worsening of bilateral infiltrates. Cardiac and mediastinal silhouette are within normal limits. CP angles are sharp. The bony thorax appear unremarkable. IMPRESSION: Worsening of bilateral infiltrates. Chest x-ray - 04/07/20 - IMPRESSION: Worsening left lung infiltrates with unchanged right lung infiltrates. Chest x-ray - 04/09/20 - Procedure: XRAY Chest 1v Procedure: XRAY Chest 1v Reason for study: Shortness of breath. Comparison films: 04/09/2020. FINDINGS: A single one view chest is obtained. Vascularity is normal. Bilateral infiltrates not significantly changed. Cardiac and mediastinal silhouette are within normal limits. There is decreased left effusion. The bony thorax appear unremarkable. IMPRESSION: No significant change bilateral infiltrates. Decreased left effusion. Chest x-ray - 04/11/20 - Procedure: XRAY Chest 1v Procedure: XRAY Chest 1v Reason for study: Shortness of breath. Comparison films: 04/09/2020. FINDINGS: A single one view chest is obtained. Vascularity is normal. Bilateral infiltrates not significantly changed. Cardiac and mediastinal silhouette are within normal limits. There is decreased left effusion. The bony thorax appear unremarkable. IMPRESSION: No significant change bilateral infiltrates. Decreased left effusion. Chest x-ray - 04/13/20 - Procedure: XRAY Chest 1v Procedure: XRAY Chest 1v Reason for study: Reason For Exam: SOB Comparison films: 04/11/2020. FINDINGS: A single one view chest is obtained. Vascularity is normal. No significant change bilateral infiltrates. Cardiac and mediastinal silhouette are within normal limits. Small left effusion unchanged. The bony thorax appear unremarkable. IMPRESSION: NO SIGNIFICANT CHANGE COMPARED TO PREVIOUS EXAM. Microbiology Date/Time Source Procedure Growth Status 04/12/20 18:35 Blood Blood Culture - Preliminary NO GROWTH AFTER 72 HOURS Resulted 04/13/20 17:15 Nasopharynx Coronavirus COVID-19 PCR ([facility]) - Final Complete 04/12/20 18:30 Stool Clostridium difficile Toxin Assay - Final Complete 04/12/20 18:30 External Cath Urine Culture - Final NO GROWTH AFTER 48 HOURS Complete 03/27/20 19:15 Rectum - Final NO CARBAPENEM-RESISTANT ENTEROBACTERI... Complete Microbiology Date/Time Source Procedure Growth Status 04/13/20 17:15 Nasopharynx Coronavirus COVID-19 PCR ([facility]) - Final Complete Laboratory Tests Test 04/16/20 08:35 White Blood Count 5.0 K/UL (4.8-10.8) Red Blood Count 2.89 M/UL (4.20-5.40) L Hemoglobin 7.6 G/DL (12.0-16.0) L Hematocrit 24.9 % (37.0-47.0) L Mean Corpuscular Volume 86 FL (80-99) Mean Corpuscular Hemoglobin 26.4 PG (27.0-31.0) L Mean Corpuscular Hemoglobin Concent 30.8 G/DL (32.0-36.0) L Red Cell Distribution Width 16.5 % (11.6-14.8) H Platelet Count 436 K/UL (150-450) Mean Platelet Volume 6.5 FL (6.5-10.1) Neutrophils (%) (Auto) % (45.0-75.0) Lymphocytes (%) (Auto) % (20.0-45.0) Monocytes (%) (Auto) % (1.0-10.0) Eosinophils (%) (Auto) % (0.0-3.0) Basophils (%) (Auto) % (0.0-2.0) Differential Total Cells Counted 100 Neutrophils % (Manual) 63 % (45-75) Lymphocytes % (Manual) 25 % (20-45) Monocytes % (Manual) 10 % (1-10) Eosinophils % (Manual) 2 % (0-3) Basophils % (Manual) 0 % (0-2) Band Neutrophils 0 % (0-8) Platelet Estimate Adequate Platelet Morphology Normal Hypochromasia 1+ Anisocytosis 1+ Sodium Level 140 MMOL/L (136-145) Potassium Level 3.2 MMOL/L (3.5-5.1) L Chloride Level 104 MMOL/L (98-107) Carbon Dioxide Level 29 MMOL/L (21-32) Anion Gap 7 mmol/L (5-15) Blood Urea Nitrogen 11 mg/dL (7-18) Creatinine 1.0 MG/DL (0.55-1.30) Estimat Glomerular Filtration Rate > 60 mL/min (>60) Glucose Level 125 MG/DL (74-106) H Calcium Level 8.5 MG/DL (8.5-10.1) Current Medications Medications (Trade) Dose Ordered Sig/Debbie Route PRN Reason Start Time Stop Time Status Last Admin Dose Admin Acetaminophen (Tylenol) 650 mg Q4H PRN ORAL Mild Pain (Pain Scale 1-3) 04/14/20 06:45 04/25/20 21:14 Acetaminophen (Tylenol) 650 mg Q4H PRN ORAL Temp >100.5 04/14/20 06:45 04/25/20 21:14 Al Hydroxide/Mg Hydroxide (Mylanta II) 30 ml Q6H PRN ORAL dyspepsia 04/14/20 06:50 04/25/20 06:49 Amiodarone HCl (Cordarone) 200 mg DAILY ORAL 04/14/20 09:00 07/05/20 20:59 04/16/20 08:31 Bisacodyl (Dulcolax) 10 mg HSPRN PRN RECTAL Constipation 04/14/20 06:50 06/24/20 06:49 Chlorhexidine Gluconate (Laurie-Hex 2%) 1 applic DAILY@1999 TOPIC 04/14/20 20:00 06/26/20 19:59 Chlorhexidine Gluconate (Laurie-Hex 2%) 1 applic DAILY@1999 TOPIC 04/16/20 20:00 07/15/20 19:59 Dextrose (Dextrose 50%) 25 ml Q30M PRN IV Hypoglycemia 04/14/20 06:45 06/24/20 21:14 Dextrose (Dextrose 50%) 50 ml Q30M PRN IV Hypoglycemia 04/14/20 06:45 06/24/20 21:14 Diltiazem HCl (Cardizem) 90 mg EVERY 8 HOURS ORAL 04/14/20 14:00 05/04/20 14:59 04/16/20 14:24 Diphenhydramine HCl (Benadryl) 25 mg Q6H PRN ORAL Itching/Pruritis 04/14/20 06:53 04/25/20 06:52 Docusate Sodium (Colace) 100 mg Q12HR ORAL 04/14/20 09:00 04/29/20 08:59 04/15/20 20:50 Furosemide (Lasix) 40 mg EVERY 12 HOURS ORAL 04/15/20 09:00 05/15/20 08:59 04/16/20 08:32 Gabapentin (Neurontin) 300 mg BEDTIME ORAL 04/14/20 21:00 04/26/20 20:59 04/15/20 20:50 Heparin Sodium/ Sodium Chloride (Heparin 1000 units/500ml Premix) 1,000 unit ONCE IV 04/16/20 06:00 04/16/20 18:00 Hydralazine HCl (Apresoline) 100 mg Q8HR ORAL 04/14/20 14:00 07/10/20 21:59 04/16/20 14:24 Hydromorphone HCl (Dilaudid) 1 mg Q4H PRN SUBQ Breakthrough 04/14/20 15:00 04/21/20 14:59 04/15/20 09:03 Lidocaine HCl (Xylocaine 1% 30ml) 30 ml ONCE INJ 04/16/20 06:00 04/16/20 18:00 Magnesium Hydroxide (Mom) 30 ml HSPRN PRN ORAL Constipation 04/14/20 07:02 05/14/20 07:01 Methocarbamol (Robaxin) 500 mg QID PRN ORAL spasms 04/14/20 14:30 05/14/20 14:29 04/14/20 23:20 Metoclopramide HCl (Reglan) 10 mg Q6H PRN IVP Nausea & Vomiting 04/14/20 09:15 04/25/20 21:14 Micafungin Sodium 100 mg/Sodium Chloride 100 ml @ 100 mls/hr Q24H IVPB 04/14/20 20:00 04/16/20 19:59 Ondansetron HCl (Zofran) 4 mg Q6H PRN IVP Nausea & Vomiting 04/14/20 07:04 04/25/20 07:03 Oxycodone/ Acetaminophen (Percocet 10/325) 1 tab Q4H PRN ORAL Severe Pain (Pain Scale 7-10) 04/15/20 13:30 04/22/20 13:29 04/16/20 16:05 Pantoprazole (Protonix) 40 mg DAILY IVP 04/14/20 09:00 05/01/20 08:59 04/14/20 08:35 Polyethylene Glycol (Miralax) 17 gm HSPRN PRN ORAL Constipation 04/14/20 07:04 05/14/20 07:03 Polymyxin B Sulfate [id number] units/Dextrose 550 ml @ 550 mls/hr EVERY 12 HOURS IVPB 04/14/20 09:00 04/17/20 11:59 04/14/20 10:45 Potassium Chloride (K-Dur) 40 meq ONCE ORAL 04/16/20 11:00 07/15/20 10:59 04/16/20 11:08 Rivaroxaban (Xarelto) 15 mg DAILY ORAL 04/14/20 09:00 06/29/20 08:59 04/14/20 08:36 Vancomycin HCl (Vanco pharmacy to dose) 1 ea DAILY PRN MISC Per rx protocol 04/14/20 09:00 05/12/20 17:44 Vancomycin/Sodium Chloride 275 ml @ 137.5 mls/ hr Q24H IVPB 04/15/20 08:00 04/20/20 09:00 Jose Valdes MD Apr 16, 2020 16:47
--- NOTE | 2020-04-16 17:20 | Hematology/Onc Progress Note ---
Assessment/Plan Assessment/Plan Assessment and Recs # Anemia of iron deficiency, with a ferritin that is less than 50 recentrly --> Anemia workup has been ordered, rule out gi bleed --> recheck ferritin, occult was + --> No evidence of hemolysis is noted, peripheral smear has been reviewed. --> Hgb goal >7. Transfuse prn. --> IRon IV x 5 days started 04/06 as ferritin is low --> Medications have been reviewed --> low threshold for gi evaluation in case has occult + --> currently is on XARELTO --> as per Terrance, may need to hold if h /h lower --> hgb trend 8.2-->7.2->8->7.4->7.6 --> GI eval prn # Hypercoagulable disorder is on xarelto for afib with rvr --> reviewed cards recs --> if any further bleed, consider hold xarelto --> have dw Pcp --> monitor h/h # Leukocytoisis with gram neg pna, uti, sepsis, fevers, leukocytosis, a.flutter , respiratory failure, atx, dony, + ua, atx --> covid is neg --> abx svetlana and micafungin/polymyx-->hola/svetlana-->polymyxin --> as per id recs # Respiratory failure, on vent initially --> now extubated # Renal failure. --> improved # Diabetes. --> endo prn # Hypertension. --> per cards # Diabetes and hypertension, treatment per primary care team. --> a1c goal <8, acchuchecks qac and qhs # Patient with history of altered mental status. --> metabolic encephalopathy # Seizure history. # Chronic neck pain. # Lactic acidsis # HLD # Obesity # Dvt ppx xarelto Appreciate consultation and vanessa ARCOS Subjective Allergies: Coded Allergies: LISINOPRIL (Verified Allergy, Unknown, Hives, 04/12/14) Subjective 04/08 labs have been reviewed, no night sweats, eating overnight, labs pending 04/09 awake, alert with picc, labs from am pending, no major events 04/10 no events, vanessa arcos, duplex study reviewed, major vessels show no dvt 04/11 labs reviewed, laying in bed, no complaints, dw rn, hgb 8 04/12 no events, no bleeding, meds reviewed, no night sweats 04/13 labs reviewed, no bleeding, meds reviewed, no night sweats 04/15 alert and oriented, hgb 7.4, no hemolysis, no bleeding 04/16 med surg, s/p picc, recent covid negative, hgb 7.6 Objective Objective Current Medications Medications (Trade) Dose Ordered Sig/Debbie Route PRN Reason Start Time Stop Time Status Last Admin Dose Admin Acetaminophen (Tylenol) 650 mg Q4H PRN ORAL Mild Pain (Pain Scale 1-3) 04/14/20 06:45 04/25/20 21:14 Acetaminophen (Tylenol) 650 mg Q4H PRN ORAL Temp >100.5 04/14/20 06:45 04/25/20 21:14 Al Hydroxide/Mg Hydroxide (Mylanta II) 30 ml Q6H PRN ORAL dyspepsia 04/14/20 06:50 04/25/20 06:49 Amiodarone HCl (Cordarone) 200 mg DAILY ORAL 04/14/20 09:00 07/05/20 20:59 04/16/20 08:31 Bisacodyl (Dulcolax) 10 mg HSPRN PRN RECTAL Constipation 04/14/20 06:50 06/24/20 06:49 Chlorhexidine Gluconate (Laurie-Hex 2%) 1 applic DAILY@1999 TOPIC 04/14/20 20:00 06/26/20 19:59 Chlorhexidine Gluconate (Laurie-Hex 2%) 1 applic DAILY@1999 TOPIC 04/16/20 20:00 07/15/20 19:59 Dextrose (Dextrose 50%) 25 ml Q30M PRN IV Hypoglycemia 04/14/20 06:45 06/24/20 21:14 Dextrose (Dextrose 50%) 50 ml Q30M PRN IV Hypoglycemia 04/14/20 06:45 06/24/20 21:14 Diltiazem HCl (Cardizem) 90 mg EVERY 8 HOURS ORAL 04/14/20 14:00 05/04/20 14:59 04/16/20 14:24 Diphenhydramine HCl (Benadryl) 25 mg Q6H PRN ORAL Itching/Pruritis 04/14/20 06:53 04/25/20 06:52 Docusate Sodium (Colace) 100 mg Q12HR ORAL 04/14/20 09:00 04/29/20 08:59 04/15/20 20:50 Furosemide (Lasix) 40 mg EVERY 12 HOURS ORAL 04/15/20 09:00 05/15/20 08:59 04/16/20 08:32 Gabapentin (Neurontin) 300 mg BEDTIME ORAL 04/14/20 21:00 04/26/20 20:59 04/15/20 20:50 Heparin Sodium/ Sodium Chloride (Heparin 1000 units/500ml Premix) 1,000 unit ONCE IV 04/16/20 06:00 04/16/20 18:00 Hydralazine HCl (Apresoline) 100 mg Q8HR ORAL 04/14/20 14:00 07/10/20 21:59 04/16/20 14:24 Hydromorphone HCl (Dilaudid) 1 mg Q4H PRN SUBQ Breakthrough 04/14/20 15:00 04/21/20 14:59 04/15/20 09:03 Lidocaine HCl (Xylocaine 1% 30ml) 30 ml ONCE INJ 04/16/20 06:00 04/16/20 18:00 Magnesium Hydroxide (Mom) 30 ml HSPRN PRN ORAL Constipation 04/14/20 07:02 05/14/20 07:01 Methocarbamol (Robaxin) 500 mg QID PRN ORAL spasms 04/14/20 14:30 05/14/20 14:29 04/14/20 23:20 Metoclopramide HCl (Reglan) 10 mg Q6H PRN IVP Nausea & Vomiting 04/14/20 09:15 04/25/20 21:14 Micafungin Sodium 100 mg/Sodium Chloride 100 ml @ 100 mls/hr Q24H IVPB 04/16/20 20:00 04/18/20 19:59 Ondansetron HCl (Zofran) 4 mg Q6H PRN IVP Nausea & Vomiting 04/14/20 07:04 04/25/20 07:03 Oxycodone/ Acetaminophen (Percocet 10/325) 1 tab Q4H PRN ORAL Severe Pain (Pain Scale 7-10) 04/15/20 13:30 04/22/20 13:29 04/16/20 16:05 Pantoprazole (Protonix) 40 mg DAILY IVP 04/14/20 09:00 05/01/20 08:59 04/14/20 08:35 Polyethylene Glycol (Miralax) 17 gm HSPRN PRN ORAL Constipation 04/14/20 07:04 05/14/20 07:03 Polymyxin B Sulfate 456829 units/Dextrose 550 ml @ 550 mls/hr EVERY 12 HOURS IVPB 04/16/20 21:00 04/19/20 23:59 Potassium Chloride (K-Dur) 40 meq ONCE ORAL 04/16/20 11:00 07/15/20 10:59 04/16/20 11:08 Rivaroxaban (Xarelto) 15 mg DAILY ORAL 04/14/20 09:00 06/29/20 08:59 04/14/20 08:36 Vancomycin HCl (Vanco pharmacy to dose) 1 ea DAILY PRN MISC Per rx protocol 04/14/20 09:00 05/12/20 17:44 Vancomycin/Sodium Chloride 275 ml @ 137.5 mls/ hr Q24H IVPB 04/15/20 08:00 04/20/20 09:00 Last 24 Hour Vital Signs Date Time Temp Pulse Resp B/P (MAP) Pulse Ox O2 Delivery O2 Flow Rate FiO2 04/16/20 16:00 98.0 86 20 146/62 (90) 93 04/16/20 14:24 140/64 04/16/20 14:24 94 140/64 04/16/20 12:00 97.8 94 20 140/64 (89) 97 04/16/20 09:00 Nasal Cannula 1.0 04/16/20 08:00 97.4 97 21 153/56 (88) 96 04/16/20 05:46 157/68 04/16/20 05:46 94 157/68 04/16/20 04:49 96.4 04/16/20 04:00 96.4 94 22 157/68 (97) 95 04/16/20 00:00 98.0 87 20 136/79 (98) 97 04/15/20 21:19 91 158/86 04/15/20 21:18 158/86 04/15/20 21:00 Nasal Cannula 1.0 04/15/20 20:10 97 Nasal Cannula 2.0 28 04/15/20 20:00 97.5 91 24 158/86 (110) 97 04/15/20 16:00 98.2 98 19 156/68 (97) 98 04/15/20 13:08 132/85 04/15/20 13:08 88 132/85 04/15/20 12:00 97.9 88 18 132/85 (101) 95 04/15/20 09:00 Nasal Cannula 1.0 04/15/20 08:00 97.7 95 19 164/87 (112) 95 04/15/20 06:10 139/74 04/15/20 06:10 91 139/74 04/15/20 04:00 98.3 91 18 139/74 (95) 97 04/15/20 00:00 98.5 92 18 115/73 (87) 97 04/14/20 21:47 121/76 04/14/20 21:47 83 121/76 04/14/20 21:00 Nasal Cannula 1.0 04/14/20 20:00 98.5 83 18 121/76 (91) 97 04/14/20 19:51 96 Nasal Cannula 2.0 28 Intake and Output 04/15/20 04/16/20 19:00 07:00 Intake Total 572 ml 360 ml Output Total 2700 ml 3330 ml Balance -2128 ml -2970 ml Intake Oral 572 ml Other 360 ml Output Urine Total 2700 ml 3330 ml Labs Test 04/14/20 07:10 04/15/20 05:40 04/16/20 08:35 White Blood Count 5.4 K/UL (4.8-10.8) 5.2 K/UL (4.8-10.8) 5.0 K/UL (4.8-10.8) Red Blood Count 2.83 M/UL (4.20-5.40) 2.80 M/UL (4.20-5.40) 2.89 M/UL (4.20-5.40) Hemoglobin 7.5 G/DL (12.0-16.0) 7.4 G/DL (12.0-16.0) 7.6 G/DL (12.0-16.0) Hematocrit 24.6 % (37.0-47.0) 24.4 % (37.0-47.0) 24.9 % (37.0-47.0) Mean Corpuscular Volume 87 FL (80-99) 87 FL (80-99) 86 FL (80-99) Mean Corpuscular Hemoglobin 26.6 PG (27.0-31.0) 26.3 PG (27.0-31.0) 26.4 PG (27.0-31.0) Mean Corpuscular Hemoglobin Concent 30.5 G/DL (32.0-36.0) 30.1 G/DL (32.0-36.0) 30.8 G/DL (32.0-36.0) Red Cell Distribution Width 16.6 % (11.6-14.8) 16.8 % (11.6-14.8) 16.5 % (11.6-14.8) Platelet Count 369 K/UL (150-450) 379 K/UL (150-450) 436 K/UL (150-450) Mean Platelet Volume 6.1 FL (6.5-10.1) 6.3 FL (6.5-10.1) 6.5 FL (6.5-10.1) Neutrophils (%) (Auto) % (45.0-75.0) % (45.0-75.0) % (45.0-75.0) Lymphocytes (%) (Auto) % (20.0-45.0) % (20.0-45.0) % (20.0-45.0) Monocytes (%) (Auto) % (1.0-10.0) % (1.0-10.0) % (1.0-10.0) Eosinophils (%) (Auto) % (0.0-3.0) % (0.0-3.0) % (0.0-3.0) Basophils (%) (Auto) % (0.0-2.0) % (0.0-2.0) % (0.0-2.0) Differential Total Cells Counted 100 100 100 Neutrophils % (Manual) 65 % (45-75) 62 % (45-75) 63 % (45-75) Lymphocytes % (Manual) 26 % (20-45) 25 % (20-45) 25 % (20-45) Monocytes % (Manual) 7 % (1-10) 13 % (1-10) 10 % (1-10) Eosinophils % (Manual) 2 % (0-3) 0 % (0-3) 2 % (0-3) Basophils % (Manual) 0 % (0-2) 0 % (0-2) 0 % (0-2) Band Neutrophils 0 % (0-8) 0 % (0-8) 0 % (0-8) Platelet Estimate Adequate Adequate Adequate Platelet Morphology Normal Normal Normal Hypochromasia 1+ 1+ 1+ Anisocytosis 1+ 1+ 1+ Sodium Level 138 MMOL/L (136-145) 140 MMOL/L (136-145) 140 MMOL/L (136-145) Potassium Level 3.3 MMOL/L (3.5-5.1) 3.5 MMOL/L (3.5-5.1) 3.2 MMOL/L (3.5-5.1) Chloride Level 104 MMOL/L (98-107) 106 MMOL/L (98-107) 104 MMOL/L (98-107) Carbon Dioxide Level 26 MMOL/L (21-32) 28 MMOL/L (21-32) 29 MMOL/L (21-32) Anion Gap 8 mmol/L (5-15) 6 mmol/L (5-15) 7 mmol/L (5-15) Blood Urea Nitrogen 10 mg/dL (7-18) 11 mg/dL (7-18) 11 mg/dL (7-18) Creatinine 1.0 MG/DL (0.55-1.30) 1.0 MG/DL (0.55-1.30) 1.0 MG/DL (0.55-1.30) Estimat Glomerular Filtration Rate > 60 mL/min (>60) > 60 mL/min (>60) > 60 mL/min (>60) Glucose Level 100 MG/DL (74-106) 90 MG/DL (74-106) 125 MG/DL (74-106) Calcium Level 8.0 MG/DL (8.5-10.1) 8.3 MG/DL (8.5-10.1) 8.5 MG/DL (8.5-10.1) Vancomycin Level Trough 19.3 ug/mL (5.0-12.0) Height (Feet): 5 Height (Inches): 8.00 Weight (Pounds): 293 Objective Physical Exam Sp02 EP Interpretation: reviewed, normal General: Patient appears chronically ill Head: normocephalic, atraumatic ++ngt Respiratory: , crackles - both lower lobes Cardiovascular: tachycardia Gastrointestinal: non tender, soft Musculoskeletal: other - Patient appears chronically debilitated both lower extremities are extended, picc++ Neurologic: other - Some verbal response, but chronic disability Skin: no rash : ++Virgil Chowdhury MD Apr 16, 2020 17:20
--- NOTE | 2020-04-16 17:25 | NUR ---
RADIOLOGY NOTE: LEFT UPPER EXTREMITY PICC PLACED.
--- NOTE | 2020-04-16 17:28 | Diagnostic Imaging Report ---
Indications: Needs long-term IV access Technique: Ultrasound confirms patent compressible left basilic vein. Total sterile technique, including sterile probe cover and sterile gel, hat, mask, sterile gown, large sterile drape, and preparation with 2% chlorhexidine utilized. Local anesthesia with 1% lidocaine. Under real-time ultrasound guidance, puncture basilic vein using 21-gauge needle, documented and archived, passage 0.018 guidewire under direct fluoroscopy, which was used to determine appropriate catheter length, exchange for 4 Icelandic peel-away sheath. 4 Icelandic Bard dual-lumen power PICC cut to 50 cm. It was inserted through the peel-away sheath. Peel-away sheath and guidewire removed. Catheter fixed to the skin. Both catheter ports aspirated and flushed. Patient tolerated procedure well, without immediate complication. Digital radiograph documents satisfactory catheter tip position, at the cavoatrial junction. Total fluoroscopy time 18.8 seconds. Total dose area product [id number] Total number of images: 1 Impression: Successful placement of left arm PICC under sonographic and fluoroscopic guidance, as described above.
--- NOTE | 2020-04-16 19:00 | NUR ---
HAND-OFF: Report given to JOSSELYN Lucas. POC endorsed.
--- NOTE | 2020-04-16 19:43 | NUR ---
NURSE NOTES: Received patient in bed, awake, alert, oriented x4,bedbound, PICC line site is clean dry and patent, patients colostomy is on left lower quadrant, clean dry and intact. P [address], patient is able to make her needs known. Call light is within reach, bed is lowered, locked, alarm is on, will continue to monitor for comfort and safety.
[2020-04-16 20:00] VITALS: BP 161/87
[2020-04-16] MEDS ORDERED: Dyna-Hex 2% Top Sol 2oz TOPIC SCH (20:00)
[2020-04-16] MEDS ORDERED: Polymyxin B Sulfate 500,000 UNITS in D5W 500ml 550 ML IVPB SCH (21:00)
[2020-04-16] MEDS: HYDROmorphone 1mg/ml Carpuject SUBQ PRN (23:58)
[2020-04-17] VITALS: BP 160/78
[2020-04-17 05:29] LABS: HEMATOCRIT 25.7 % (37.0-47.0); HEMOGLOBIN 7.6 G/DL (12.0-16.0); MEAN CORPUSCULAR VOLUME 86 FL (80-99); PLATELET COUNT 454 K/UL (150-450); RED BLOOD COUNT 2.98 M/UL (4.20-5.40); RED CELL DISTRIBUTION WIDTH 16.7 % (11.6-14.8); WHITE BLOOD COUNT 4.8 K/UL (4.8-10.8)
[2020-04-17] MEDS: dilTIAZem HCl 90mg tab ORAL SCH (05:49)
[2020-04-17] MEDS: HydrALAZINE 50mg tab ORAL SCH (05:50)
[2020-04-17 06:33] LABS: BLOOD UREA NITROGEN 10 mg/dL (7-18); CALCIUM 8.4 MG/DL (8.5-10.1); CARBON DIOXIDE 30 MMOL/L (21-32)
[2020-04-17 07:03] LABS: CHLORIDE 104 MMOL/L (98-107); POTASSIUM 3.3 MMOL/L (3.5-5.1); SODIUM 139 MMOL/L (136-145)
--- NOTE | 2020-04-17 07:23 | NUR ---
HAND-OFF: Report given to Chago ARCOS.
--- NOTE | 2020-04-17 07:35 | NUR ---
NURSE NOTES: Patient awake, alert x4; on Nasal Cannula 1 liter, no sing of shortness of breath, no sing of distress; no sing of chest pain; PICC on Left Upper arm, double lumen, TKO; dressing dry and intact; Desai in place, drains yellow urine; Colostomy on Left Lower Quadrant; Left and Right hip dressing dry and intact; Sacral dressing dry and intact; side rails up x2, breaks engaged, bed at lowest position; call light within reach; will keep monitoring.
[2020-04-17 08:00] VITALS: BP 150/83
[2020-04-17] MEDS: Xarelto 15mg tab ORAL SCH (08:22)
[2020-04-17] MEDS: Pantoprazole Inj IVP SCH (08:23)
[2020-04-17] MEDS: Furosemide 40mg tab ORAL SCH (08:23)
[2020-04-17] MEDS: Amiodarone 200mg tab ORAL SCH (08:23)
[2020-04-17] MEDS: Vancomycin 1.5gm/NS Premix q24h IVPB SCH (08:24)
[2020-04-17] MEDS: Docusate 100mg/10ml Liq ORAL SCH (08:26)
--- NOTE | 2020-04-17 08:52 | General Progress Note ---
Assessment/Plan Status: stable Assessment/Plan: 1. History of diabetes. 2. Obesity. 3. Hypertension. 4. Hypercholesterolemia. 5. Diverticulosis/diverticulitis. 6. History of uterine fibroids. 7. Anemi 8. Stool ob positive x3 9. A.fib EGD and colonoscopy: SUMMARY OF FINDINGS: 1. Gastritis, status post biopsy. 2. Ulcerations behind the colostomy bag, most probably ischemic in nature, status post biopsy. RECOMMENDATIONS: Follow up biopsy results and treat accordingly. fu H&H prn blood transfusion pending possible dc Subjective ROS Limited/Unobtainable: No Allergies: Coded Allergies: LISINOPRIL (Verified Allergy, Unknown, Hives, 04/12/14) Objective Last 24 Hour Vital Signs Date Time Temp Pulse Resp B/P (MAP) Pulse Ox O2 Delivery O2 Flow Rate FiO2 04/17/20 08:00 98.5 99 20 150/83 (105) 99 04/17/20 06:19 98.2 04/17/20 05:50 148/78 04/17/20 05:49 78 145/78 04/17/20 00:34 98.2 04/17/20 00:00 98.2 98 20 160/78 (105) 98 04/16/20 21:40 161/74 04/16/20 21:39 78 161/74 04/16/20 21:05 Nasal Cannula 1.0 04/16/20 20:00 98.1 94 22 161/87 (111) 98 04/16/20 16:00 98.0 86 20 146/62 (90) 93 04/16/20 14:24 140/64 04/16/20 14:24 94 140/64 04/16/20 12:00 97.8 94 20 140/64 (89) 97 04/16/20 09:00 Nasal Cannula 1.0 Intake and Output 04/16/20 04/17/20 19:00 07:00 Intake Total 1000 ml Output Total 1800 ml 1100 ml Balance -800 ml -1100 ml Intake Oral 1000 ml Output Urine Total 1800 ml 1100 ml Laboratory Tests 04/17/20 05:00: White Blood Count 4.8, Red Blood Count 2.98L, Hemoglobin 7.6L, Hematocrit 25.7L , Mean Corpuscular Volume 86, Mean Corpuscular Hemoglobin 25.6L, Mean Corpuscular Hemoglobin Concent 29.6L, Red Cell Distribution Width 16.7H, Platelet Count 454H, Mean Platelet Volume 6.3L, Neutrophils (%) (Auto) , Lymphocytes (%) (Auto) , Monocytes (%) (Auto) , Eosinophils (%) (Auto) , Basophils (%) (Auto) , Sodium Level 139, Potassium Level 3.3L, Chloride Level 104, Carbon Dioxide Level 30, Blood Urea Nitrogen 10, Creatinine 1.0, Estimat Glomerular Filtration Rate > 60, Glucose Level 94, Calcium Level 8.4L Height (Feet): 5 Height (Inches): 8.00 Weight (Pounds): 293 General Appearance: no apparent distress EENT: normal ENT inspection Neck: supple Cardiovascular: normal rate Respiratory/Chest: decreased breath sounds Abdomen: normal bowel sounds, non tender, soft Extremities: non-tender Arturo Boyd MD Apr 17, 2020 08:52
[2020-04-17] MEDS ORDERED: Vanco pharmacy to dose MISC (09:19)
[2020-04-17] MEDS ORDERED: VANCOMYCIN1.5 GM/15 IV (09:19)
[2020-04-17] MEDS ORDERED: PACERONE200 MG ORAL (09:19)
[2020-04-17] MEDS ORDERED: CARDIZEM90 MG ORAL (09:19)
[2020-04-17] MEDS ORDERED: [UNRECOGNIZED DRUG - CODE] MC (09:19)
[2020-04-17] MEDS ORDERED: FUROSEMIDE40 MG ORAL (09:19)
[2020-04-17] MEDS ORDERED: ROBAXIN-500MG ORAL (09:19)
[2020-04-17] MEDS ORDERED: MICAFUNGIN100 MG IV (09:19)
[2020-04-17] MEDS ORDERED: XARELTO15 MG ORAL (09:19)
[2020-04-17] MEDS ORDERED: COLACE100 MG/10 ORAL (09:19)
--- NOTE | 2020-04-17 09:20 | Discharge Summary ---
Discharge Summary Hospital Course Date of Admission Mar 26, 2020 at 19:50 Date of Discharge Admitting Diagnosis tachycardia, dehydration HPI Hilaria Hayward is a 69 year old female who was admitted on Mar 26, 2020 at 19:50 for Tachycardia,Dehydration. PE: GENERAL: No acute distress, appears comfortable, alert, obese, anasarca HEENT: NCAT, non-icteric eyes, pupils PERRLA Neck: No cervical lymphadenopathy, trachea midline CV: Regular rate and rhythm, no murmurs rubs or gallops RESP: Clear to auscultation bilaterally, no wheezes/rhonchi/crackles ABD: Ostomy noted with liquid stool, soft, non-distended, no TTP EXT: Normal muscle tone, +5/5 muscle strength, 1+ edema bilateral lower extremities NEURO: No obvious deficits, alert and oriented x3 Hospital Course Ms. Hayward is a 69 year old female with unknown history, presenting with AMS, weaknses, found to have rhabdo, VENTURA, a fib RVR then later was intubated for hypoxia/stridor. Patient was intubated in the ED for acute hypoxic respiratory failure and sent to ICU for further care. Patient was noted to be in A. fib RVR, elevated BNP as well as rhabdomyolysis, VENTURA. Consultants cardiology, ID, nephrology, GI, pulmonology and general surgery were consulted. Throughout ICU course, patient became hemodynamically unstable, patient was started on amiodarone and Cardizem with good response. Patient started on Xarelto. Patient was being treated for ESBL E. coli PNA, actinobacter PNA, UTI , sepsis. Pt respiratory status improved and was extubated, transfered to floor on 04/06. Patient was noted to have rectal bleeding, Xarelto held and patient underwent EGD/colonoscopy by GI on 04/13 which revealed gastritis, ulcerations behind the colostomy bag, most probably ischemic in nature. Patient was cleared by GI to restart Xarelto. Patient was noted to have anemia of iron deficiency, hematology/oncology was following patient and started patient on iron IV for 5 days. Cardiology following patient, recommended Lasix p.o. twice daily for LE edema, and recommends atrial flutter ablation as outpatient. D/w ID , pt to continue polymyxin, micafungin and vancomycin for 3 more days. Patient to be DC'd to SNF in stable condition with follow-up with PCP, cardiology Dr. Crooks for o/p watchman. D/c diagnosis: # Pain # fever, resolved #Acute Hypoxic Resp Failure, resolved #Afib w/ RVR, now in SR, off heparin gtt and on Xarelto #Acute Renal Failure 2/2 ATN from Rhabo #Rhabdo #GI Bleed, Acute Anemia due to blood loss, Iron Deficient #Sepsis, HCAP/UTI, COVID negative , + ESBL; see above #Seizure vs prolonged period of immobility # S/P Acute metabolic Encephalopathy #Hx of Colectomy w/ Colostomy D/c planning >30 mins. Additional 35 mins spent on chart review, previous H&P, progress notes, help desk consultant notes, labs, radiographic imaging, pathology. Discharge Medications New Medications: Micafungin Sodium (Micafungin) 100 Mg Vial 100 MG IV yanick for 3 Days, #3 VIAL Polymyxin B Sulfate,Micronized (Polymyxin B Sulfate) 50,000,000 Unit Powder.ea. [id number] UNIT MC Q12HR for 3 Days, #3 EA Vancomycin HCl in Water (Vancomycin 1,500 mg/15Ml-Water) 1.5 Gm/15 Ml Vial 1.5 GM IV DAILY for 3 Days, #3 VIAL Amiodarone Hcl* (Pacerone*) 200 Mg Tablet 200 MG ORAL DAILY for 90 Days, TAB 3 Refills Diltiazem HCl (Diltiazem HCl) 90 Mg Tablet 90 MG ORAL EVERY 8 HOURS for 90 Days, #270 TAB 3 Refills Docusate Sodium (Docusate Sodium) 50 Mg/5 Ml Liquid 100 MG ORAL Q12HR for 30 Days, #60 ML 3 Refills Furosemide* (Lasix*) 40 Mg Tablet 40 MG ORAL EVERY 12 HOURS for 30 Days, #60 TAB 3 Refills Methocarbamol* (Robaxin-500*) 500 Mg Tablet 500 MG ORAL QID PRN for 30 Days, #30 TAB 3 Refills Rivaroxaban (Xarelto) 15 Mg Tablet 15 MG ORAL DAILY for 90 Days, #180 TAB 3 Refills [Vanco pharmacy to dose] () 1 EA MISC 1 EA MISC DAILY PRN for 3 Days, #3 Continued Medications: Amlodipine Besylate* (Amlodipine Besylate*) 10 Mg Tablet 10 MG ORAL DAILY, TAB Doxazosin Mesylate* (Doxazosin Mesylate*) 4 Mg Tablet 4 MG ORAL DAILY, TAB Duloxetine Hcl* (Cymbalta*) 60 Mg Capsule.dr 60 MG ORAL BID, CAP Gabapentin* (Gabapentin*) 300 Mg Capsule 300 MG ORAL BEDTIME, CAP Hydralazine HCl (Hydralazine HCl) 50 Mg Tablet 50 MG ORAL Q6HR for 30 Days, #30 TAB Hydrocodone/Acetaminophen (Hydrocodon-Acetaminophn 10-325) 1 Ea Tab 1 TAB ORAL Q6H PRN for For Pain, #60 TAB 0 Refills Metoprolol Tartrate* (Metoprolol Tartrate*) 100 Mg Tablet 100 MG ORAL EVERY 12 HOURS, TAB Phosphorus (Phospha 250 Neutral Tablet) 250 Mg Tablet 250 MG ORAL THREE TIMES A DAY for 10 Days, #10 TAB Simvastatin (Zocor) 40 Mg Tablet 40 MG ORAL BEDTIME, TAB Trazodone* (Trazodone*) 150 Mg Tablet 200 MG ORAL BEDTIME, TAB Discontinued Medications: Baclofen* (Baclofen*) 10 Mg Tablet 10 MG ORAL NEEDED, TAB Discharge Condition Upon Discharge: stable Discharge Vital Signs Last Vital Signs Date Time Temp Pulse Resp B/P (MAP) Pulse Ox O2 Delivery O2 Flow Rate FiO2 04/17/20 08:00 98.5 99 20 150/83 (105) 99 04/16/20 21:05 Nasal Cannula 1.0 04/15/20 20:10 28 Discharge Disposition Patient was discharged to [facility] Delphine Cochran M.D. Apr 17, 2020 09:20
--- NOTE | 2020-04-17 09:53 | NUR ---
*-*DISCHARGE PLANNED*-* PATIENT HAS BEEN ACCEPTED AND WILL BE DISCHARGED TO: [facility] P: [phone] FOR NURSE TO NURSE REPORT ROOM#52.[facility] SET FOR 12PM S/W [id number] S/W PATIENTS DAUGHTER, ALMA NUNEZ, WHO IS IN AGREEMENT WITH DISCHARGE PLAN.
--- NOTE | 2020-04-17 10:29 | Pulmonology Progress Note ---
Subjective ROS Limited/Unobtainable: No Interval Events: None new Constitutional: Denies: fever HEENT: Repors: no symptoms Gastrointestinal/Abdominal: Denies: nausea, vomiting, diarrhea Genitourinary: Reports: no symptoms Neurologic: Reports: no symptoms Psychiatric: Denies: depression Skin: Denies: rash Musculoskeletal: Denies: pain Allergies: Coded Allergies: LISINOPRIL (Verified Allergy, Unknown, Hives, 04/12/14) All Systems: reviewed and negative except above Objective Last 24 Hour Vital Signs Date Time Temp Pulse Resp B/P (MAP) Pulse Ox O2 Delivery O2 Flow Rate FiO2 04/17/20 09:00 Nasal Cannula 1.0 04/17/20 08:00 98.5 99 20 150/83 (105) 99 04/17/20 06:19 98.2 04/17/20 05:50 148/78 04/17/20 05:49 78 145/78 04/17/20 00:34 98.2 04/17/20 00:00 98.2 98 20 160/78 (105) 98 04/16/20 21:40 161/74 04/16/20 21:39 78 161/74 04/16/20 21:05 Nasal Cannula 1.0 04/16/20 20:00 98.1 94 22 161/87 (111) 98 04/16/20 16:00 98.0 86 20 146/62 (90) 93 04/16/20 14:24 140/64 04/16/20 14:24 94 140/64 04/16/20 12:00 97.8 94 20 140/64 (89) 97 Intake and Output 04/16/20 04/17/20 19:00 07:00 Intake Total 1000 ml Output Total 1800 ml 1100 ml Balance -800 ml -1100 ml Intake Oral 1000 ml Output Urine Total 1800 ml 1100 ml General Appearance: no acute distress HEENT: normocephalic Respiratory: chest wall non-tender, lungs clear Cardiovascular: normal peripheral pulses Abdomen: normal bowel sounds Laboratory Tests 04/17/20 05:00: White Blood Count 4.8, Red Blood Count 2.98L, Hemoglobin 7.6L, Hematocrit 25.7L , Mean Corpuscular Volume 86, Mean Corpuscular Hemoglobin 25.6L, Mean Corpuscular Hemoglobin Concent 29.6L, Red Cell Distribution Width 16.7H, Platelet Count 454H, Mean Platelet Volume 6.3L, Neutrophils (%) (Auto) , Lymphocytes (%) (Auto) , Monocytes (%) (Auto) , Eosinophils (%) (Auto) , Basophils (%) (Auto) , Sodium Level 139, Potassium Level 3.3L, Chloride Level 104, Carbon Dioxide Level 30, Blood Urea Nitrogen 10, Creatinine 1.0, Estimat Glomerular Filtration Rate > 60, Glucose Level 94, Calcium Level 8.4L Current Medications Medications (Trade) Dose Ordered Sig/Debbie Route PRN Reason Start Time Stop Time Status Last Admin Dose Admin Acetaminophen (Tylenol) 650 mg Q4H PRN ORAL Mild Pain (Pain Scale 1-3) 04/14/20 06:45 04/25/20 21:14 Acetaminophen (Tylenol) 650 mg Q4H PRN ORAL Temp >100.5 04/14/20 06:45 04/25/20 21:14 Al Hydroxide/Mg Hydroxide (Mylanta II) 30 ml Q6H PRN ORAL dyspepsia 04/14/20 06:50 04/25/20 06:49 Amiodarone HCl (Cordarone) 200 mg DAILY ORAL 04/14/20 09:00 07/05/20 20:59 04/17/20 08:23 Bisacodyl (Dulcolax) 10 mg HSPRN PRN RECTAL Constipation 04/14/20 06:50 06/24/20 06:49 Chlorhexidine Gluconate (Laurie-Hex 2%) 1 applic DAILY@1999 TOPIC 04/16/20 20:00 07/15/20 19:59 04/16/20 20:08 Dextrose (Dextrose 50%) 25 ml Q30M PRN IV Hypoglycemia 04/14/20 06:45 06/24/20 21:14 Dextrose (Dextrose 50%) 50 ml Q30M PRN IV Hypoglycemia 04/14/20 06:45 06/24/20 21:14 Diltiazem HCl (Cardizem) 90 mg EVERY 8 HOURS ORAL 04/14/20 14:00 05/04/20 14:59 04/17/20 05:49 Diphenhydramine HCl (Benadryl) 25 mg Q6H PRN ORAL Itching/Pruritis 04/14/20 06:53 04/25/20 06:52 Docusate Sodium (Colace) 100 mg Q12HR ORAL 04/14/20 09:00 04/29/20 08:59 04/16/20 20:09 Furosemide (Lasix) 40 mg EVERY 12 HOURS ORAL 04/15/20 09:00 05/15/20 08:59 04/17/20 08:23 Gabapentin (Neurontin) 300 mg BEDTIME ORAL 04/14/20 21:00 04/26/20 20:59 04/16/20 20:09 Hydralazine HCl (Apresoline) 100 mg Q8HR ORAL 04/14/20 14:00 07/10/20 21:59 04/17/20 05:50 Hydromorphone HCl (Dilaudid) 1 mg Q4H PRN SUBQ Breakthrough 04/14/20 15:00 04/21/20 14:59 04/16/20 23:58 Magnesium Hydroxide (Mom) 30 ml HSPRN PRN ORAL Constipation 04/14/20 07:02 05/14/20 07:01 Methocarbamol (Robaxin) 500 mg QID PRN ORAL spasms 04/14/20 14:30 05/14/20 14:29 04/14/20 23:20 Metoclopramide HCl (Reglan) 10 mg Q6H PRN IVP Nausea & Vomiting 04/14/20 09:15 04/25/20 21:14 Micafungin Sodium 100 mg/Sodium Chloride 100 ml @ 100 mls/hr Q24H IVPB 04/16/20 20:00 04/18/20 19:59 04/16/20 20:00 Ondansetron HCl (Zofran) 4 mg Q6H PRN IVP Nausea & Vomiting 04/14/20 07:04 04/25/20 07:03 Oxycodone/ Acetaminophen (Percocet 10/325) 1 tab Q4H PRN ORAL Severe Pain (Pain Scale 7-10) 04/15/20 13:30 04/22/20 13:29 04/17/20 10:16 Pantoprazole (Protonix) 40 mg DAILY IVP 04/14/20 09:00 05/01/20 08:59 04/17/20 08:23 Polyethylene Glycol (Miralax) 17 gm HSPRN PRN ORAL Constipation 04/14/20 07:04 05/14/20 07:03 Polymyxin B Sulfate 042965 units/Dextrose 550 ml @ 550 mls/hr EVERY 12 HOURS IVPB 04/16/20 21:00 04/19/20 23:59 04/16/20 21:00 Potassium Chloride (K-Dur) 40 meq ONCE ORAL 04/16/20 11:00 07/15/20 10:59 04/16/20 11:08 Rivaroxaban (Xarelto) 15 mg DAILY ORAL 04/14/20 09:00 06/29/20 08:59 04/17/20 08:22 Vancomycin HCl (Vanco pharmacy to dose) 1 ea DAILY PRN MISC Per rx protocol 04/14/20 09:00 05/12/20 17:44 Vancomycin/Sodium Chloride 275 ml @ 137.5 mls/ hr Q24H IVPB 04/15/20 08:00 04/20/20 09:00 04/17/20 08:24 Assessment/Plan Assessment/Plan IMPRESSION: 1. Hyperkalemia. Corrected 2. Tachycardia; resolved 3. Sepsis 4. Hypertension. 5. Seizure disorder. 6. Acute renal failure. 7. Respiratory failure; extubated 04/05/20 DISCUSSION: Continue O2 Desai/colostomy care Speech and swallow therapy Dc planning Seven Yao Omar Syed MD Apr 17, 2020 10:29
--- NOTE | 2020-04-17 10:54 | Cardiac Electrophysiology PN ---
Assessment/Plan Assessment/Plan 1. Atrial flutter with rapid ventricular response of 170s. On Cardizem 90 OG tid and amiodarone 200 po daily On Xarelto 15 mg daily. Would benefit from atrial flutter ablation as out patient Patient couldn't complete the stress test. 2. Hypertension. On Cardizem 3. S/P Respiratory failure, extubated 4. Acute renal failure, that is improving. 5. Normal left ventricular systolic function by echo on March 26, 2020, with EF of 55%. 6. Severe bilateral LE edema. On Lasix 40 po bid. Bilateral LE duplex, showed no DVT 7. Rectal bleed. S/P EGD and Colonoscopy by Dr boyd that showed Gastritis and Ulcerations behind the colostomy bag, most probably ischemic in nature, status post biopsy. ADOLFO RN Subjective Subjective On PO Amiodarone and Cardizem. Stress test cancelled as she couldn't tolerate it. Had EGD and colonoscopy for positive OB by Dr Boyd RN in room. Ruled out for Covid. Being DCed home Objective Last 24 Hour Vital Signs Date Time Temp Pulse Resp B/P (MAP) Pulse Ox O2 Delivery O2 Flow Rate FiO2 04/17/20 09:00 Nasal Cannula 1.0 04/17/20 08:00 98.5 99 20 150/83 (105) 99 04/17/20 06:19 98.2 04/17/20 05:50 148/78 04/17/20 05:49 78 145/78 04/17/20 00:34 98.2 04/17/20 00:00 98.2 98 20 160/78 (105) 98 04/16/20 21:40 161/74 04/16/20 21:39 78 161/74 04/16/20 21:05 Nasal Cannula 1.0 04/16/20 20:00 98.1 94 22 161/87 (111) 98 04/16/20 16:00 98.0 86 20 146/62 (90) 93 04/16/20 14:24 140/64 04/16/20 14:24 94 140/64 04/16/20 12:00 97.8 94 20 140/64 (89) 97 Intake and Output 04/16/20 04/17/20 19:00 07:00 Intake Total 1000 ml Output Total 1800 ml 1100 ml Balance -800 ml -1100 ml Intake Oral 1000 ml Output Urine Total 1800 ml 1100 ml Laboratory Tests Test 04/17/20 05:00 White Blood Count 4.8 K/UL (4.8-10.8) Red Blood Count 2.98 M/UL (4.20-5.40) L Hemoglobin 7.6 G/DL (12.0-16.0) L Hematocrit 25.7 % (37.0-47.0) L Mean Corpuscular Volume 86 FL (80-99) Mean Corpuscular Hemoglobin 25.6 PG (27.0-31.0) L Mean Corpuscular Hemoglobin Concent 29.6 G/DL (32.0-36.0) L Red Cell Distribution Width 16.7 % (11.6-14.8) H Platelet Count 454 K/UL (150-450) H Mean Platelet Volume 6.3 FL (6.5-10.1) L Neutrophils (%) (Auto) % (45.0-75.0) Lymphocytes (%) (Auto) % (20.0-45.0) Monocytes (%) (Auto) % (1.0-10.0) Eosinophils (%) (Auto) % (0.0-3.0) Basophils (%) (Auto) % (0.0-2.0) Sodium Level 139 MMOL/L (136-145) Potassium Level 3.3 MMOL/L (3.5-5.1) L Chloride Level 104 MMOL/L (98-107) Carbon Dioxide Level 30 MMOL/L (21-32) Blood Urea Nitrogen 10 mg/dL (7-18) Creatinine 1.0 MG/DL (0.55-1.30) Estimat Glomerular Filtration Rate > 60 mL/min (>60) Glucose Level 94 MG/DL (74-106) Calcium Level 8.4 MG/DL (8.5-10.1) L Objective NECK: No JVD LUNGS: Coarse rhonchi. CARDIOVASCULAR: Regular S1 and S2 with no gallop. ABDOMEN: Soft. EXTREMITIES: 1 plus pitting edema. Carlos Dean MD Apr 17, 2020 10:54
--- NOTE | 2020-04-17 11:15 | NUR ---
PT NOTE Attempted to see patient for PT treatment. Patient declining to participate with PT, states that she is being discharged. Rafat iniguez RN notified.
--- NOTE | 2020-04-17 11:41 | Hematology/Onc Progress Note ---
Assessment/Plan Assessment/Plan Assessment and Recs # Anemia of iron deficiency, with a ferritin that is less than 50 recentrly --> Anemia workup has been ordered, rule out gi bleed --> recheck ferritin, occult was + --> No evidence of hemolysis is noted, peripheral smear has been reviewed. --> Hgb goal >7. Transfuse prn. --> IRon IV x 5 days started 04/06 as ferritin is low --> Medications have been reviewed --> low threshold for gi evaluation in case has occult + --> currently is on XARELTO --> as per Terrance, may need to hold if h /h lower --> hgb trend 8.2-->7.2->8->7.4->7.6 --> GI eval prn # Hypercoagulable disorder is on xarelto for afib with rvr --> reviewed cards recs --> if any further bleed, consider hold xarelto --> have dw Pcp --> monitor h/h # Leukocytoisis with gram neg pna, uti, sepsis, fevers, leukocytosis, a.flutter , respiratory failure, atx, dony, + ua, atx --> covid is neg --> abx svetlana and micafungin/polymyx-->hola/svetlana-->polymyxin/vanc --> as per id recs # Respiratory failure, on vent initially --> now extubated, nc # Renal failure. --> improved # Diabetes. --> endo prn # Hypertension. --> per cards # Diabetes and hypertension, treatment per primary care team. --> a1c goal <8, accchecks qac and qhs # Patient with history of altered mental status. --> metabolic encephalopathy # Seizure history. # Chronic neck pain. # Lactic acidsis # HLD # Obesity # Dvt ppx xarelto Appreciate consultation and vanessa ARCOS Subjective Allergies: Coded Allergies: LISINOPRIL (Verified Allergy, Unknown, Hives, 04/12/14) Subjective 04/08 labs have been reviewed, no night sweats, eating overnight, labs pending 04/09 awake, alert with picc, labs from am pending, no major events 04/10 no events, vanessa arcos, duplex study reviewed, major vessels show no dvt 04/11 labs reviewed, laying in bed, no complaints, dw rn, hgb 8 04/12 no events, no bleeding, meds reviewed, no night sweats 04/13 labs reviewed, no bleeding, meds reviewed, no night sweats 04/15 alert and oriented, hgb 7.4, no hemolysis, no bleeding 04/16 med surg, s/p picc, recent covid negative, hgb 7.6 04/17 awake and alert, nc, picc intact, no distress Objective Objective Current Medications Medications (Trade) Dose Ordered Sig/Debbie Route PRN Reason Start Time Stop Time Status Last Admin Dose Admin Acetaminophen (Tylenol) 650 mg Q4H PRN ORAL Mild Pain (Pain Scale 1-3) 04/14/20 06:45 04/25/20 21:14 Acetaminophen (Tylenol) 650 mg Q4H PRN ORAL Temp >100.5 04/14/20 06:45 04/25/20 21:14 Al Hydroxide/Mg Hydroxide (Mylanta II) 30 ml Q6H PRN ORAL dyspepsia 04/14/20 06:50 04/25/20 06:49 Amiodarone HCl (Cordarone) 200 mg DAILY ORAL 04/14/20 09:00 07/05/20 20:59 04/17/20 08:23 Bisacodyl (Dulcolax) 10 mg HSPRN PRN RECTAL Constipation 04/14/20 06:50 06/24/20 06:49 Chlorhexidine Gluconate (Laurie-Hex 2%) 1 applic DAILY@1999 TOPIC 04/16/20 20:00 07/15/20 19:59 04/16/20 20:08 Dextrose (Dextrose 50%) 25 ml Q30M PRN IV Hypoglycemia 04/14/20 06:45 06/24/20 21:14 Dextrose (Dextrose 50%) 50 ml Q30M PRN IV Hypoglycemia 04/14/20 06:45 06/24/20 21:14 Diltiazem HCl (Cardizem) 90 mg EVERY 8 HOURS ORAL 04/14/20 14:00 05/04/20 14:59 04/17/20 05:49 Diphenhydramine HCl (Benadryl) 25 mg Q6H PRN ORAL Itching/Pruritis 04/14/20 06:53 04/25/20 06:52 Docusate Sodium (Colace) 100 mg Q12HR ORAL 04/14/20 09:00 04/29/20 08:59 04/16/20 20:09 Furosemide (Lasix) 40 mg EVERY 12 HOURS ORAL 04/15/20 09:00 05/15/20 08:59 04/17/20 08:23 Gabapentin (Neurontin) 300 mg BEDTIME ORAL 04/14/20 21:00 04/26/20 20:59 04/16/20 20:09 Hydralazine HCl (Apresoline) 100 mg Q8HR ORAL 04/14/20 14:00 07/10/20 21:59 04/17/20 05:50 Hydromorphone HCl (Dilaudid) 1 mg Q4H PRN SUBQ Breakthrough 04/14/20 15:00 04/21/20 14:59 04/16/20 23:58 Magnesium Hydroxide (Mom) 30 ml HSPRN PRN ORAL Constipation 04/14/20 07:02 05/14/20 07:01 Methocarbamol (Robaxin) 500 mg QID PRN ORAL spasms 04/14/20 14:30 05/14/20 14:29 04/14/20 23:20 Metoclopramide HCl (Reglan) 10 mg Q6H PRN IVP Nausea & Vomiting 04/14/20 09:15 04/25/20 21:14 Micafungin Sodium 100 mg/Sodium Chloride 100 ml @ 100 mls/hr Q24H IVPB 04/16/20 20:00 04/18/20 19:59 04/16/20 20:00 Ondansetron HCl (Zofran) 4 mg Q6H PRN IVP Nausea & Vomiting 04/14/20 07:04 04/25/20 07:03 Oxycodone/ Acetaminophen (Percocet 10/325) 1 tab Q4H PRN ORAL Severe Pain (Pain Scale 7-10) 04/15/20 13:30 04/22/20 13:29 04/17/20 10:16 Pantoprazole (Protonix) 40 mg DAILY IVP 04/14/20 09:00 05/01/20 08:59 04/17/20 08:23 Polyethylene Glycol (Miralax) 17 gm HSPRN PRN ORAL Constipation 04/14/20 07:04 05/14/20 07:03 Polymyxin B Sulfate [id number] units/Dextrose 550 ml @ 550 mls/hr EVERY 12 HOURS IVPB 04/16/20 21:00 04/19/20 23:59 04/16/20 21:00 Potassium Chloride (K-Dur) 40 meq ONCE ORAL 04/16/20 11:00 07/15/20 10:59 04/16/20 11:08 Rivaroxaban (Xarelto) 15 mg DAILY ORAL 04/14/20 09:00 06/29/20 08:59 04/17/20 08:22 Vancomycin HCl (Vanco pharmacy to dose) 1 ea DAILY PRN MISC Per rx protocol 04/14/20 09:00 05/12/20 17:44 Vancomycin/Sodium Chloride 275 ml @ 137.5 mls/ hr Q24H IVPB 04/15/20 08:00 04/20/20 09:00 04/17/20 08:24 Last 24 Hour Vital Signs Date Time Temp Pulse Resp B/P (MAP) Pulse Ox O2 Delivery O2 Flow Rate FiO2 04/17/20 09:00 Nasal Cannula 1.0 04/17/20 08:00 98.5 99 20 150/83 (105) 99 04/17/20 06:19 98.2 04/17/20 05:50 148/78 04/17/20 05:49 78 145/78 04/17/20 00:34 98.2 04/17/20 00:00 98.2 98 20 160/78 (105) 98 04/16/20 21:40 161/74 04/16/20 21:39 78 161/74 04/16/20 21:05 Nasal Cannula 1.0 04/16/20 20:00 98.1 94 22 161/87 (111) 98 04/16/20 16:00 98.0 86 20 146/62 (90) 93 04/16/20 14:24 140/64 04/16/20 14:24 94 140/64 04/16/20 12:00 97.8 94 20 140/64 (89) 97 04/16/20 09:00 Nasal Cannula 1.0 04/16/20 08:00 97.4 97 21 153/56 (88) 96 04/16/20 05:46 157/68 04/16/20 05:46 94 157/68 04/16/20 04:00 96.4 94 22 157/68 (97) 95 04/16/20 00:00 98.0 87 20 136/79 (98) 97 04/15/20 21:19 91 158/86 04/15/20 21:18 158/86 04/15/20 21:00 Nasal Cannula 1.0 04/15/20 20:10 97 Nasal Cannula 2.0 28 04/15/20 20:00 97.5 91 24 158/86 (110) 97 04/15/20 16:00 98.2 98 19 156/68 (97) 98 04/15/20 13:08 132/85 04/15/20 13:08 88 132/85 04/15/20 12:00 97.9 88 18 132/85 (101) 95 Intake and Output 04/16/20 04/17/20 19:00 07:00 Intake Total 1000 ml Output Total 1800 ml 1100 ml Balance -800 ml -1100 ml Intake Oral 1000 ml Output Urine Total 1800 ml 1100 ml Labs Test 04/15/20 05:40 04/16/20 08:35 04/17/20 05:00 White Blood Count 5.2 K/UL (4.8-10.8) 5.0 K/UL (4.8-10.8) 4.8 K/UL (4.8-10.8) Red Blood Count 2.80 M/UL (4.20-5.40) 2.89 M/UL (4.20-5.40) 2.98 M/UL (4.20-5.40) Hemoglobin 7.4 G/DL (12.0-16.0) 7.6 G/DL (12.0-16.0) 7.6 G/DL (12.0-16.0) Hematocrit 24.4 % (37.0-47.0) 24.9 % (37.0-47.0) 25.7 % (37.0-47.0) Mean Corpuscular Volume 87 FL (80-99) 86 FL (80-99) 86 FL (80-99) Mean Corpuscular Hemoglobin 26.3 PG (27.0-31.0) 26.4 PG (27.0-31.0) 25.6 PG (27.0-31.0) Mean Corpuscular Hemoglobin Concent 30.1 G/DL (32.0-36.0) 30.8 G/DL (32.0-36.0) 29.6 G/DL (32.0-36.0) Red Cell Distribution Width 16.8 % (11.6-14.8) 16.5 % (11.6-14.8) 16.7 % (11.6-14.8) Platelet Count 379 K/UL (150-450) 436 K/UL (150-450) 454 K/UL (150-450) Mean Platelet Volume 6.3 FL (6.5-10.1) 6.5 FL (6.5-10.1) 6.3 FL (6.5-10.1) Neutrophils (%) (Auto) % (45.0-75.0) % (45.0-75.0) % (45.0-75.0) Lymphocytes (%) (Auto) % (20.0-45.0) % (20.0-45.0) % (20.0-45.0) Monocytes (%) (Auto) % (1.0-10.0) % (1.0-10.0) % (1.0-10.0) Eosinophils (%) (Auto) % (0.0-3.0) % (0.0-3.0) % (0.0-3.0) Basophils (%) (Auto) % (0.0-2.0) % (0.0-2.0) % (0.0-2.0) Differential Total Cells Counted 100 100 Neutrophils % (Manual) 62 % (45-75) 63 % (45-75) Lymphocytes % (Manual) 25 % (20-45) 25 % (20-45) Monocytes % (Manual) 13 % (1-10) 10 % (1-10) Eosinophils % (Manual) 0 % (0-3) 2 % (0-3) Basophils % (Manual) 0 % (0-2) 0 % (0-2) Band Neutrophils 0 % (0-8) 0 % (0-8) Platelet Estimate Adequate Adequate Platelet Morphology Normal Normal Hypochromasia 1+ 1+ Anisocytosis 1+ 1+ Sodium Level 140 MMOL/L (136-145) 140 MMOL/L (136-145) 139 MMOL/L (136-145) Potassium Level 3.5 MMOL/L (3.5-5.1) 3.2 MMOL/L (3.5-5.1) 3.3 MMOL/L (3.5-5.1) Chloride Level 106 MMOL/L (98-107) 104 MMOL/L (98-107) 104 MMOL/L (98-107) Carbon Dioxide Level 28 MMOL/L (21-32) 29 MMOL/L (21-32) 30 MMOL/L (21-32) Anion Gap 6 mmol/L (5-15) 7 mmol/L (5-15) Blood Urea Nitrogen 11 mg/dL (7-18) 11 mg/dL (7-18) 10 mg/dL (7-18) Creatinine 1.0 MG/DL (0.55-1.30) 1.0 MG/DL (0.55-1.30) 1.0 MG/DL (0.55-1.30) Estimat Glomerular Filtration Rate > 60 mL/min (>60) > 60 mL/min (>60) > 60 mL/min (>60) Glucose Level 90 MG/DL (74-106) 125 MG/DL (74-106) 94 MG/DL (74-106) Calcium Level 8.3 MG/DL (8.5-10.1) 8.5 MG/DL (8.5-10.1) 8.4 MG/DL (8.5-10.1) Height (Feet): 5 Height (Inches): 8.00 Weight (Pounds): 293 Objective Physical Exam Sp02 EP Interpretation: reviewed, normal General: Patient appears chronically ill Head: normocephalic, atraumatic ++ngt Respiratory: , crackles - both lower lobes, nc+ Cardiovascular: tachycardia Gastrointestinal: non tender, soft Musculoskeletal: other - Patient appears chronically debilitated both lower extremities are extended, picc++ Neurologic: other - Some verbal response, but chronic disability Skin: no rash : ++Virgil Chowdhury MD Apr 17, 2020 11:40
--- NOTE | 2020-04-17 12:42 | Nephrology Progress Note ---
Assessment/Plan Plan #VENTURA due to ATN in the setting of rhabdo- on CKD #hyperkalemia #Rhabdo #UTI sepsis #Lactic acidsis #AMS - toxic metabolic encephalopathy #Hypoxemic resp failure #afib with RVR #HLD #Obesity - lasix 40PO BID - replete K - monitor UOP - replete lytes - monitor K,bmp - plan for EGD/colo - weiss placed - strict I&Os - cardiology eval - amiodarone, diltiazem - s/p IV iron - monitor hemoglobin - norco dose adjuested - ID consult- - antibiotics per ID - follow cx - monitor BMP, mag and phos daily - PT 30 minutes of critical care time- greater than 50% on care coordination and counseling Subjective ROS Limited/Unobtainable: No Constitutional: Denies: no symptoms, chills, diaphoresis, fever, malaise, weakness, other HEENT: Denies: no symptoms, eye pain, blurred vision, tearing, double vision, ear pain, ear discharge, nose pain, nose congestion, throat pain, throat swelling, mouth pain, mouth swelling, other Genitourinary: Denies: no symptoms, burning, discharge, frequency, flank pain, hematuria, incontinence, pain, urgency, other Neurologic/Psychiatric: Denies: no symptoms, anxiety, depressed, emotional problems, headache, numbness, paresthesia, pre-existing deficit, seizure, tingling, tremors, weakness, other Subjective Cr stable very weak evaluated by GI s/p colo and EGD complains of leg pain now pain better on percocet Objective Objective Last 24 Hour Vital Signs Date Time Temp Pulse Resp B/P (MAP) Pulse Ox O2 Delivery O2 Flow Rate FiO2 04/17/20 09:00 Nasal Cannula 1.0 04/17/20 08:01 99 Nasal Cannula 1.0 21 04/17/20 08:00 98.5 99 20 150/83 (105) 99 04/17/20 06:19 98.2 04/17/20 05:50 148/78 04/17/20 05:49 78 145/78 04/17/20 00:34 98.2 04/17/20 00:00 98.2 98 20 160/78 (105) 98 04/16/20 21:40 161/74 04/16/20 21:39 78 161/74 6/29/20 21:05 Nasal Cannula 1.0 04/16/20 20:00 98.1 94 22 161/87 (111) 98 04/16/20 16:00 98.0 86 20 146/62 (90) 93 04/16/20 14:24 140/64 04/16/20 14:24 94 140/64 Intake and Output 04/16/20 04/17/20 19:00 07:00 Intake Total 1000 ml Output Total 1800 ml 1100 ml Balance -800 ml -1100 ml Intake Oral 1000 ml Output Urine Total 1800 ml 1100 ml Laboratory Tests 04/17/20 05:00: White Blood Count 4.8, Red Blood Count 2.98L, Hemoglobin 7.6L, Hematocrit 25.7L , Mean Corpuscular Volume 86, Mean Corpuscular Hemoglobin 25.6L, Mean Corpuscular Hemoglobin Concent 29.6L, Red Cell Distribution Width 16.7H, Platelet Count 454H, Mean Platelet Volume 6.3L, Neutrophils (%) (Auto) , Lymphocytes (%) (Auto) , Monocytes (%) (Auto) , Eosinophils (%) (Auto) , Basophils (%) (Auto) , Sodium Level 139, Potassium Level 3.3L, Chloride Level 104, Carbon Dioxide Level 30, Blood Urea Nitrogen 10, Creatinine 1.0, Estimat Glomerular Filtration Rate > 60, Glucose Level 94, Calcium Level 8.4L Height (Feet): 5 Height (Inches): 8.00 Weight (Pounds): 293 Objective General Appearance: no distress Lines, tubes and drains: peripheral HEENT: normocephalic, atraumatic Neck: non-tender, normal alignment, supple Respiratory/Chest: lungs clear Cardiovascular/Chest: normal peripheral pulses, tachycardia, irregularly irregular Abdomen: soft Skin Exam: normal pigmentation Neurologic: nonfocal Venkat Montes M.D. Apr 17, 2020 12:42
--- NOTE | 2020-04-17 12:53 | NUR ---
SPEECH PATHOLOGY/DYSPHAGIA MANAGEMENT NOTE/DISCHARGE SUMMARY PATIENT LYING SUPINE IN BED, AMENABLE FOR ST INTERVENTION AND STATED SHE WAS DUE TO BE TRANSFERRED TO [facility] MID/DAY. AT THE BEGINNING OF THIS INTERVENTION PATIENT REPORTED MILD UE PAIN, APPROX 10 MINUTES INTO DYSPHAGIA TASKS, SHE EXPERIENCED A SUDDEN SHARP PAIN IN HER ULE WHICH ALTERED HER RHYTHM OF BREATHING AND PRECIPITATED WEEPING/GRIMACING. WHEN ASKED TO RANK THE PAIN ON A SCALE FROM 1-10, SHE SAID ("12") AND THAT SHE HAD NOT EXPERIENCED THIS LEVEL OF PAIN IN THIS LOCATION PRIOR TO THIS EVENT..(CLINICIAN REPORTED INCIDENT TO [facility] ESQUIVEL). AFTER APPROX ONE MINUTE, PAIN SUBSIDED AND PATIENT WAS ABLE TO RESUME THERAPEUTIC DYSPHAGIA TASKS TODAY SHE WAS SEEN FOR ONE FINAL ST INTERVENTION WHICH FOCUSED ON DYSPHAGIA WITH REINFORCEMENT OF NEED FOR CONSISTENT/SUFFICIENT INTAKE TO SUPPORT WOUND HEALING, NUTRITION/HYDRATION NEEDS ALONG WITH ORAL CARE POST P.O. SHE VERBALIZED UNDERSTANDING. SHE CONTINUES TO TOLERATE HER CURRENT DIET TEXTURE OF REGULAR SOLIDS/AND THIN LIQUIDS. PER CHART REVIEW, P.O. INTAKE HAS BEEN VARIABLE, RANGING FROM 25% TO 100%. THIS MORNING SHE REPORTED THAT SHE ONLY ATE THE EGGS ON HER AM TRAY. AT BEDSIDE WERE A VARIETY OF SOFT FOODS BROUGHT IN BY SPOUSE FROM HOME, (INCLUDING CHOCOLATE BOOST). WHEN DRINKING SECOND CONTAINER OF BOOST VIA SIPS FROM [employer] SHE DEMONSTRATED NO OVERT S/S OF ASPIRATION. IN ADDITION TO EGGS INGESTED AT BREAKFAST, PATIENT COMPLETED TWO NUTRITIONAL SUPPLEMENTS/BOOST AND PARTIAL INGESTION OF A BANANA..SHE WAS ALSO ABLE TO HOLD FOODS/LIQUID CONTAINERS WITH RIGHT HAND WITH NO ASSIST. SHE REPORTED THAT HER ABILITY TO SELF/FEED HAD SIGNIFICANTLY IMPROVED FROM THE PREVIOUS WEEK. DYSPHAGIA GOALS MET RELATIVE TO DIET TEXTURE TOLERANCE (DIET TEXTURE ADVANCE STARTING WITH PUREE AND ADVANCING TO REGULAR WITH THIN LIQUIDS). SHE DENIED ANY DIFFICULTIES WITH SWALLOWING SOLIDS/LIQUIDS SINCE RESUMING P.O. GOALS MET FOR SAFE P.O. INTAKE OF LEAST RESTRICTIVE DIET TEXTURE WITH ASPIRATION PRECAUTIONS AND ORAL CARE POST P.O. D/C PENDING TRANSFER TO REHAB FACILITY. Addendum: 04/17/20 at 1357 by MARLYS ROSENBERG DUPLICATE NOTE, PLEASE DISREGARD
--- NOTE | 2020-04-17 13:00 | NUR ---
NURSE NOTES: Patient discharge to [facility]; [facility]; PICC line dressing changed; wound care provided and pictures uploaded upon discharge; printed material given to [facility] personnel; patient and discharging nurse signed belonging lists; family informed patient's discharge by case management; patient stable upon discharge;
--- NOTE | 2020-04-17 13:00 | Surgery Progress Note ---
Surgery Progress Note Subjective Symptoms: improved, pain absent, tolerating diet, passing flatus Additional Comments d/c plan today Objective Last 24 Hour Vital Signs Date Time Temp Pulse Resp B/P (MAP) Pulse Ox O2 Delivery O2 Flow Rate FiO2 04/17/20 09:00 Nasal Cannula 1.0 04/17/20 08:01 99 Nasal Cannula 1.0 21 04/17/20 08:00 98.5 99 20 150/83 (105) 99 04/17/20 06:19 98.2 04/17/20 05:50 148/78 04/17/20 05:49 78 145/78 04/17/20 00:34 98.2 04/17/20 00:00 98.2 98 20 160/78 (105) 98 04/16/20 21:40 161/74 04/16/20 21:39 78 161/74 04/16/20 21:05 Nasal Cannula 1.0 04/16/20 20:00 98.1 94 22 161/87 (111) 98 04/16/20 16:00 98.0 86 20 146/62 (90) 93 04/16/20 14:24 140/64 04/16/20 14:24 94 140/64 I&O Intake and Output 04/16/20 04/17/20 19:00 07:00 Intake Total 1000 ml Output Total 1800 ml 1100 ml Balance -800 ml -1100 ml Intake Oral 1000 ml Output Urine Total 1800 ml 1100 ml Cardiovascular: RSR Respiratory: clear Abdomen: soft, non-tender, present bowel sounds Extremities: no edema, no tenderness, no cyanosis Laboratory Tests Test 04/17/20 05:00 White Blood Count 4.8 K/UL (4.8-10.8) Red Blood Count 2.98 M/UL (4.20-5.40) L Hemoglobin 7.6 G/DL (12.0-16.0) L Hematocrit 25.7 % (37.0-47.0) L Mean Corpuscular Volume 86 FL (80-99) Mean Corpuscular Hemoglobin 25.6 PG (27.0-31.0) L Mean Corpuscular Hemoglobin Concent 29.6 G/DL (32.0-36.0) L Red Cell Distribution Width 16.7 % (11.6-14.8) H Platelet Count 454 K/UL (150-450) H Mean Platelet Volume 6.3 FL (6.5-10.1) L Neutrophils (%) (Auto) % (45.0-75.0) Lymphocytes (%) (Auto) % (20.0-45.0) Monocytes (%) (Auto) % (1.0-10.0) Eosinophils (%) (Auto) % (0.0-3.0) Basophils (%) (Auto) % (0.0-2.0) Sodium Level 139 MMOL/L (136-145) Potassium Level 3.3 MMOL/L (3.5-5.1) L Chloride Level 104 MMOL/L (98-107) Carbon Dioxide Level 30 MMOL/L (21-32) Blood Urea Nitrogen 10 mg/dL (7-18) Creatinine 1.0 MG/DL (0.55-1.30) Estimat Glomerular Filtration Rate > 60 mL/min (>60) Glucose Level 94 MG/DL (74-106) Calcium Level 8.4 MG/DL (8.5-10.1) L Plan Problems: (1) Atrial flutter (2) Hypertension (3) Acute encephalopathy (4) VENTURA (acute kidney injury) (5) Acute and chronic respiratory failure with hypoxia (6) Abscess (7) Fistula (8) Sciatica neuralgia (9) Uncontrolled seizures (10) Forgetfulness (11) Sacral decubitus ulcer Assessment & Plan: Patient identified to have a sacral deep tissue injury upon admission Currently intensive care unit on support Care plan initiated (12) Chronic back pain (13) Overdose of opiate or related narcotic (14) Cellulitis of left leg (15) Pericolonic abscess due to diverticulitis (16) Ventral incisional hernia Assessment & Plan: History of colon resection colostomy Ventral incisional hernia reducible No acute invention monitor parastomal hernia stable ostomy viable and functional no acute intervention planned (17) Chronic pain of both knees (18) Dehydration (19) Hyperkalemia (20) Sepsis Assessment & Plan: Patient admitted identified to have sepsis leukocytosis tachycardia abnormal labs lactic acidosis. Chest x-ray reviewed. Imaging noted. Micro noted. Intensive care unit on support appreciate ICU care Nutritional optimization IV fluids IV antibiotics as per infectious disease tube feeds once stable will follow with recommendations thank you for letting participate patient's care Urosepsis on abx extubated improving downgrade upper ext edema noted US on coag as per heme Patient reports not liking current diet texture of Moist Puree with Thin Liquids. Patient completed PO intake of solids (crackers), Patient's swallow is grossly functional. Plan: 1. Upgrade Diet Texture to Soft Solids and continue Thin Liquids; type/ supplements per RD. 2. Nursing to assist Patient with oral care BID. DAILY ESTIMATED NEEDS: Needs based on Pulmonary, sepsis, wound, VENTURA 75.8kg adj 20-30 kcals/kg 7636-2906 total kcals 1.25-1.5 g protein/kg 94-114 g total protein 25-30 mL/kg 1064-1299 total fluid mLs NUTRITION DIAGNOSIS: Swallowing difficulty r/t respiratory status as evidenced by pt orally intubated, on NGT feeds-> now extubated, pending TAPE COATER eval. PO DIET RECOMMENDATIONS-->>> Cardiac diet / texture per TAPE COATER ENTERAL NUTRITION RECOMMENDATIONS: VITAL AF 1.2 @55ml/hr x24 hrs to provide 1320ml, 1584 kcal, 99g pro, 1071ml free H2O - Maintain at goal as tolerated if not cleared for oral diet by TAPE COATER - Flush per MD/ HOB over 30 degree ADDITIONAL RECOMMENDATIONS: 1) Maintain calibrated bed scale wts (248lbs vs 217lbs last adm) 2) Monitor renal fxn and lytes closely, need for renal formula Creat wnl; lytes low (K,phos,mg) 3) Wound healing: ZnSO4 220mg QD x 10 days+ Boris BID via NGT hold vit C until renal fxn improves 4) NISS w/ TF, h/o DM 5) Monitor po intake if cleared for oral diet; need for snacks/supplements Julian Iglesias Apr 17, 2020 13:00
--- NOTE | 2020-04-17 13:44 | NUR ---
SPEECH PATHOLOGY/DYSPHAGIA MANAGEMENT NOTE/DISCHARGE SUMMARY PATIENT LYING SUPINE IN BED, AMENABLE FOR ST INTERVENTION AND STATED SHE WAS DUE TO BE TRANSFERRED TO [facility] MID/DAY. AT THE BEGINNING OF THIS INTERVENTION PATIENT REPORTED MILD UE PAIN, APPROX 10 MINUTES INTO DYSPHAGIA TASKS, SHE EXPERIENCED A SUDDEN SHARP PAIN IN HER ULE WHICH ALTERED HER RHYTHM OF BREATHING AND PRECIPITATED WEEPING/GRIMACING. WHEN ASKED TO RANK THE PAIN ON A SCALE FROM 1-10, SHE SAID ("12") AND THAT SHE HAD NOT EXPERIENCED THIS LEVEL OF PAIN IN THIS LOCATION PRIOR TO THIS EVENT..(CLINICIAN REPORTED INCIDENT TO [facility]). AFTER APPROX ONE MINUTE, PAIN SUBSIDED AND PATIENT WAS ABLE TO RESUME THERAPEUTIC DYSPHAGIA TASKS TODAY SHE WAS SEEN FOR ONE FINAL ST INTERVENTION WHICH FOCUSED ON DYSPHAGIA WITH REINFORCEMENT OF NEED FOR CONSISTENT/SUFFICIENT INTAKE TO SUPPORT WOUND HEALING, NUTRITION/HYDRATION NEEDS ALONG WITH ORAL CARE POST P.O. SHE VERBALIZED UNDERSTANDING. SHE CONTINUES TO TOLERATE HER CURRENT DIET TEXTURE OF REGULAR SOLIDS/AND THIN LIQUIDS. PER CHART REVIEW, P.O. INTAKE HAS BEEN VARIABLE, RANGING FROM 25% TO 100%. THIS MORNING SHE REPORTED THAT SHE ONLY ATE THE EGGS ON HER AM TRAY. AT BEDSIDE WERE A VARIETY OF SOFT FOODS BROUGHT IN BY SPOUSE FROM HOME, (INCLUDING CHOCOLATE BOOST). WHEN DRINKING SECOND CONTAINER OF BOOST VIA SIPS FROM [employer] SHE DEMONSTRATED NO OVERT S/S OF ASPIRATION. IN ADDITION TO EGGS INGESTED AT BREAKFAST, PATIENT COMPLETED TWO NUTRITIONAL SUPPLEMENTS/BOOST AND PARTIAL INGESTION OF A BANANA..SHE WAS ALSO ABLE TO HOLD FOODS/LIQUID CONTAINERS WITH RIGHT HAND WITH NO ASSIST. SHE REPORTED THAT HER ABILITY TO SELF/FEED HAD SIGNIFICANTLY IMPROVED FROM THE PREVIOUS WEEK. DYSPHAGIA GOALS MET RELATIVE TO DIET TEXTURE TOLERANCE (DIET TEXTURE ADVANCE STARTING WITH PUREE AND ADVANCING TO REGULAR WITH THIN LIQUIDS). SHE DENIED ANY DIFFICULTIES WITH SWALLOWING SOLIDS/LIQUIDS SINCE RESUMING P.O. GOALS MET FOR SAFE P.O. INTAKE OF LEAST RESTRICTIVE DIET TEXTURE WITH ASPIRATION PRECAUTIONS AND ORAL CARE POST P.O. D/C PENDING TRANSFER TO REHAB FACILITY.
--- NOTE | 2020-04-17 13:49 | NUR ---
SPEECH PATHOLOGY/COGNITIVE RETRAINING TASKS/DISCHARGE SUMMARY PATIENT LYING SUPINE IN BED, AMENABLE FOR ST INTERVENTION AND STATED SHE WAS DUE TO BE TRANSFERRED TO [facility] MID/DAY. PATIENT DEMONSTRATED SIGNIFICANTLY IMPROVED COGNITIVE ABILITIES WHEN COMPARED TO THIS CLINICIANS LAST INTERVENTION (5 DAYS PRIOR) TODAY SHE WAS ORIENTED X3 INDEPENDENTLY, AND X4 WITH MIN CUES. GENERATIVE NAMING/MEMORY TASK: PATIENT ABLE TO GENERATE 10 ITEMS PER CATAGORY PER MINUTE WITH MIN CUES. DURING THESE TASKS, PATIENT PRESENTED WITH DIFFICULTY SUSTAINING ATTENTION TO TASK AND REQUIRED 3 REDIRECTS TO KEEP HER FOCUSED. PATIENT ABLE TO RECALL 3 COMPENSATORY MEMORY STRATEGIES FROM HANDOUT WHICH WAS A BEDSIDE. SHE WOULD BENEFIT FROM ST INTERVENTION AT THE NEXT LEVEL OF CARE ([facility]) TO PROVIDE ONGOING COGNITIVE RETRAINING INCLUDING COMPENSATORY MEMORY STRATEGIES, MENTAL MANIPULATION, PROBLEM SOLVING TASKS, PATIENT/FAMILY/STAFF EDUCATION. ST INTERVENTION WOULD ALSO BE BENEFICIAL TO ADDRESS CONSISTENT/SUFFICIENT P.O. INTAKE TO SUPPORT NUTRITION/HYDRATION/WOUND HEALING NEEDS. D/C FROM [facility].
== END 2020-04-17 12:35 | DRG 870 ==
LOC: EDBD 18:47 → EMR 19:45 → SDSOVERFLO 19:50 → EDBEDREQ 03-27 11:18 → EDBEDREQSVC 03-27 11:30 → EDBEDREQ 03-27 19:41 → ICU 03-27 20:25 → 2E 04-08 17:50 → 4E 04-14 05:29
PROC: 0BH17EZ Insertion of Endotracheal Airway into Trachea, Via Natural or Artificial Opening (ICD-10-PCS; principal; 2020-03-27)
PROC: 5A1955Z Respiratory Ventilation, Greater than 96 Consecutive Hours (ICD-10-PCS; principal; 2020-03-27)
PROC: 02HV33Z Insertion of Infusion Device into Superior Vena Cava, Percutaneous Approach (ICD-10-PCS; 2020-03-28)
PROC: B548ZZA Ultrasonography of Superior Vena Cava, Guidance (ICD-10-PCS; 2020-03-28)
PROC: 0DD78ZX Extraction of Stomach, Pylorus, Via Natural or Artificial Opening Endoscopic, Diagnostic (ICD-10-PCS; 2020-04-10)
PROC: 0DDN8ZX Extraction of Sigmoid Colon, Via Natural or Artificial Opening Endoscopic, Diagnostic (ICD-10-PCS; 2020-04-10)
PROC: 02HV33Z Insertion of Infusion Device into Superior Vena Cava, Percutaneous Approach (ICD-10-PCS; 2020-04-16)
PROC: B518ZZA Fluoroscopy of Superior Vena Cava, Guidance (ICD-10-PCS; 2020-04-16)
DX: A41.9 Sepsis, unspecified organism (principal); N17.0 Acute kidney failure with tubular necrosis; G92 Toxic encephalopathy; J96.21 Acute and chronic respiratory failure with hypoxia; J15.5 Pneumonia due to Escherichia coli; N39.0 Urinary tract infection, site not specified; I48.92 Unspecified atrial flutter; I13.0 Hypertensive heart and chronic kidney disease with heart failure and stage 1 through stage 4 chronic kidney disease, or unspecified chronic kidney disease; M62.82 Rhabdomyolysis; Z68.41 Body mass index [BMI] 40.0-44.9, adult; D68.59 Other primary thrombophilia; K63.3 Ulcer of intestine; Z79.01 Long term (current) use of anticoagulants; I50.9 Heart failure, unspecified; N18.9 Chronic kidney disease, unspecified; E11.22 Type 2 diabetes mellitus with diabetic chronic kidney disease; E87.5 Hyperkalemia; E86.0 Dehydration; E78.5 Hyperlipidemia, unspecified; E66.9 Obesity, unspecified; G40.909 Epilepsy, unspecified, not intractable, without status epilepticus; L89.156 Pressure-induced deep tissue damage of sacral region; K43.2 Incisional hernia without obstruction or gangrene; Z20.828 Contact with and (suspected) exposure to other viral communicable diseases; D50.9 Iron deficiency anemia, unspecified; K29.50 Unspecified chronic gastritis without bleeding; Z93.3 Colostomy status
CPT/HCPCS: 31500; 36415; 36569; 36600; 71045; 74018; 76937; 80048; 80053; 80076; 80162; 80202; 80307; 81003; 82270; 82550; 82553; 82728; 82803; 82962; 83540; 83550; 83605; 83690; 83735; 83880; 84100; 84484; 85007; 85025; 85730; 86850; 86900; 86901; 87040; 87070; 87081; 87086; 87181; 87205; 87324; 93005; 93306; 93970; 93971; 94002; 94003; 94150; 96361; 96365; 96375; 99291; J0282; J2250; J7030; J8499; U0002

== ENCOUNTER 2020-04-18 11:56 | Inpatient (IN) | payer MEDICARE, MEDICAID ==
[~2020-04-18] VITALS: Ht 177.8 cm; Wt 90.7 kg
[~2020-04-18 11:56] MED LIST changes: +CARDIZEM90 MG ORAL; +COLACE100 MG/10 ORAL; +FUROSEMIDE40 MG ORAL; +MICAFUNGIN100 MG IV; +PACERONE200 MG ORAL; +ROBAXIN-500MG ORAL; +VANCOMYCIN1.5 GM/15 IV; +Vanco pharmacy to dose MISC; +XARELTO15 MG ORAL; +[UNRECOGNIZED DRUG - CODE] MC
[2020-04-18 12:00] VITALS: BP 103/60
--- NOTE | 2020-04-18 12:01 | NUR ---
Note ellieone in EDM - 04/18/20 at 1324 by ELENA ED Nurse Note: Pt brought in by ambulance from [facility] due to generalized body pain that aggravated this morning. Pt was recently discharged from [facility] for diagnosis of pneumonia. No reports of fever or chills. Reports of uncontrolled Afib HR 140. AAO x4, follows commands with non labored breathing.
--- NOTE | 2020-04-18 12:08 | NUR ---
ED Nurse Note: blood and urine specimens sent down
--- NOTE | 2020-04-18 12:10 | NUR ---
ED Nurse Note: Patient was BIBA RA # [id number] from [facility] c/o generalized chronic body pain that worsened this morning. Pt was recently discharged from [facility] for pneumonia. Afebrile @ triage. Uncontrolled Afib @ 140 at triage. Patient presented anxious, c/o severe body pain 10/, AAO x4, HR147 other VSS at this time. Patient has PIC line on her left uper arm, colostomy bad on left lower abd, and weiss 16F.
[2020-04-18] MEDS ORDERED: dilTIAZem HCl 25mg/5ml Inj IVP ONE (12:30)
--- NOTE | 2020-04-18 12:40 | Emergency Room Report ---
History of Present Illness General Chief Complaint: Pain Source: Patient, Medical Record, EMS Present Illness HPI Disclaimer: Please note that this report is being documented using DRAGON technology. This can lead to erroneous entry secondary to incorrect interpretation by the dictating instrument. HPI: 69-year-old female with a history of rapid atrial fibril ablation, chronic pain, diverticulitis, hypertension, hyperlipidemia presents for evaluation from nursing facility for chronic pain. Patient states she typically takes Percocet for longstanding pain in her joints and is currently being evaluated for inflammatory arthritis. She was found to be in rapid atrial fibrillation by EMS on their arrival. Heart rate was doing 140 blood pressures were stable. She stated she started to feel palpitations and a rapid heart rate this morning after waking up. She had been taking amiodarone, diltiazem and was started on Xarelto as well as metoprolol on her last hospitalization and discharge from the hospital yesterday. She was also treated for pneumonia at that time and tested negative for COVID-19. Denies any shortness of breath, cough, chest congestion, sore throat, fever, chills otherwise. 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 EOMI. Cardiovascular: Tachycardic. S1 and S2 normal. No murmur appreciated Resp: Normal work of breathing. No cough, wheezing or crackles appreciated Abdomen: Abdomen is soft, nondistended. Obese abdomen. Ostomy present in left lower quadrant without signs of surrounding infection. Skin: Intact. No abrasions, laceration or rash over the exposed skin MSK: Normal tone and bulk. Moving all extremities. No obvious deformity. PICC line present in left arm Neuro: Awake and alert. Mentating appropriately. Procedures Critical Care Time Critical Care Time Total critical care time: Approximately 31 minutes Due to a high probability of clinically significant, life threatening deterioration, the patient required the highest level of preparedness to intervene emergently and I personally spent this critical care time directly and personally managing the patient. This critical care time included obtaining a history, examining the patient, pulse oximetry, ordering and reviewing studies , ordering treatments, evaluating response to treatment and updating management plan as needed, frequent reassessment and discussion with other providers as well as arranging for ultimate disposition. This critical to care time was performed to assess and manage the high probability of life-threatening deterioration that could result in multiorgan failure. This critical care time is separate from the separately billable procedures and treating other patients. Medical Decision Making Diagnostic Impression: Primary Impression: Chronic back pain Additional Impression: Rapid atrial fibrillation ER Course This a 69-year-old female presenting for evaluation of body wide pain and found to be in rapid atrial fibrillation. She arrives with stable blood pressures however heart rate persist in the 140s. She has been taking amiodarone, diltiazem metoprolol and started Xarelto on her last visit. Denies any respiratory symptoms this time tested negative for COVID-19 while in the hospital. Will repeat x-ray, broad labs, give diltiazem, oral and IV for rate control. She will require rehospitalization. 1330: Heart rate controlled now with a heart rate approximately 100 to 110 bpm after initial dose of IV diltiazem. She was loaded with oral diltiazem as well. Labs showed elevation in BNP similar to patient's prior presentations as well as baseline anemia. No evidence of an infiltrate on her chest x-ray there was a minor vascular congestion. Patient be admitted for rapid atrial fibrillation to her PMD, Dr. Mendez Laboratory Tests Test 04/18/20 12:40 White Blood Count 4.5 K/UL (4.8-10.8) L Red Blood Count 3.13 M/UL (4.20-5.40) L Hemoglobin 8.0 G/DL (12.0-16.0) L Hematocrit 27.0 % (37.0-47.0) L Mean Corpuscular Volume 86 FL (80-99) Mean Corpuscular Hemoglobin 25.6 PG (27.0-31.0) L Mean Corpuscular Hemoglobin Concent 29.8 G/DL (32.0-36.0) L Red Cell Distribution Width 16.4 % (11.6-14.8) H Platelet Count 451 K/UL (150-450) H Mean Platelet Volume 6.1 FL (6.5-10.1) L Neutrophils (%) (Auto) 64.6 % (45.0-75.0) Lymphocytes (%) (Auto) 20.9 % (20.0-45.0) Monocytes (%) (Auto) 11.6 % (1.0-10.0) H Eosinophils (%) (Auto) 1.9 % (0.0-3.0) Basophils (%) (Auto) 1.0 % (0.0-2.0) Prothrombin Time 13.1 SEC (9.30-11.50) H Prothrombin Time INR 1.2 (0.9-1.1) H Activated Partial Thromboplast Time 35 SEC (23-33) H Urine Color Pale yellow Urine Appearance Clear Urine pH 8 (4.5-8.0) Urine Specific [place] 1.010 (1.005-1.035) Urine Protein Negative (NEGATIVE) Urine Glucose (UA) Negative (NEGATIVE) Urine Ketones Negative (NEGATIVE) Urine Blood 4+ (NEGATIVE) H Urine Nitrite Negative (NEGATIVE) Urine Bilirubin Negative (NEGATIVE) Urine Urobilinogen Normal MG/DL (0.0-1.0) Urine Leukocyte Esterase Negative (NEGATIVE) Urine RBC Pending Urine WBC Pending Urine Squamous Epithelial Cells Pending Urine Bacteria Pending Sodium Level 143 MMOL/L (136-145) Potassium Level 3.0 MMOL/L (3.5-5.1) L Chloride Level 106 MMOL/L (98-107) Carbon Dioxide Level 27 MMOL/L (21-32) Anion Gap 10 mmol/L (5-15) Blood Urea Nitrogen 9 mg/dL (7-18) Creatinine 1.0 MG/DL (0.55-1.30) Estimated Glomerular Filtration Rate > 60 mL/min (>60) Glucose Level 99 MG/DL (74-106) Calcium Level 8.3 MG/DL (8.5-10.1) L Phosphorus Level 3.6 MG/DL (2.5-4.9) Magnesium Level 1.2 MG/DL (1.8-2.4) L Total Bilirubin 0.2 MG/DL (0.2-1.0) Aspartate Amino Transferase (AST) 20 U/L (15-37) Alanine Aminotransferase (ALT) < 6 U/L (12-78) L Alkaline Phosphatase 86 U/L (46-116) Troponin I 0.012 ng/mL (0.000-0.056) Pro-B-Type Natriuretic Peptide 2346 pg/mL (0-125) H Total Protein 6.2 G/DL (6.4-8.2) L Albumin 1.6 G/DL (3.4-5.0) L Globulin 4.6 g/dL Albumin/Globulin Ratio 0.3 (1.0-2.7) L Urine Opiates Screen Positive (NEGATIVE) H Urine Barbiturates Screen Negative (NEGATIVE) Phencyclidine (PCP) Screen Negative (NEGATIVE) Urine Amphetamines Screen Negative (NEGATIVE) Urine Benzodiazepines Screen Negative (NEGATIVE) Urine Cocaine Screen Negative (NEGATIVE) Urine Marijuana (THC) Screen Negative (NEGATIVE) EKG Diagnostic Results EKG Time: 12:15 Rate: tachycardiac Other Impression Rapid atrial fibrillation with normal axis Rhythm Strip Diag. Results Rhythm Strip Time: 12:15 EP Interpretation: yes Rate: 140s Rhythm: other - Atrial fibrillation with rapid ventricular response Chest X-Ray Diagnostic Results Chest X-Ray Diagnostic Results : Chest X-Ray Ordered: Yes # of Views/Limited/Complete: 1 View Indication: Chest Pain EP Interpretation: Yes Interpretation: no consolidation, no effusion, no pneumothorax, no acute cardiopulmonary disease Impression: No acute disease Electronically Signed by: Electronically signed by Dr. Juanito Eugene Last Vital Signs Date Time Temp Pulse Resp B/P (MAP) Pulse Ox O2 Delivery O2 Flow Rate FiO2 04/18/20 11:51 97.9 140 24 103/60 (74) 94 Disposition: ADMITTED INPATIENT Condition: Stable Juanito Eugene MD Apr 18, 2020 12:40
[2020-04-18] MEDS ORDERED: dilTIAZem HCl CD 120mg cap ORAL ONE (12:45)
[2020-04-18 13:02] LABS: EOSINOPHILS % (AUTO) 1.9 % (0.0-3.0); LYMPHOCYTES % (AUTO) 20.9 % (20.0-45.0); MEAN CORPUSCULAR VOLUME 86 FL (80-99); MONOCYTES % (AUTO) 11.6 % (1.0-10.0); NEUTROPHILS % (AUTO) 64.6 % (45.0-75.0); PLATELET COUNT 451 K/UL (150-450); RED BLOOD COUNT 3.13 M/UL (4.20-5.40); RED CELL DISTRIBUTION WIDTH 16.4 % (11.6-14.8); WHITE BLOOD COUNT 4.5 K/UL (4.8-10.8)
[2020-04-18 13:10] LABS: ANION GAP 10 mmol/L (5-15); BLOOD UREA NITROGEN 9 mg/dL (7-18); CALCIUM 8.3 MG/DL (8.5-10.1); CARBON DIOXIDE 27 MMOL/L (21-32); CHLORIDE 106 MMOL/L (98-107); SODIUM 143 MMOL/L (136-145)
[2020-04-18 13:11] VITALS: BP 154/70
[2020-04-18 13:12] LABS: APPEARANCE,URINE CLEAR; BILIRUBIN, URINE NEGATIVE (NEGATIVE); COLOR,URINE PALE YELLOW; GLUCOSE, URINE (UA) NEGATIVE (NEGATIVE); KETONES,URINE NEGATIVE (NEGATIVE); LEUKOCYTE ESTERASE ,URINE NEGATIVE (NEGATIVE); NITRITE,URINE NEGATIVE (NEGATIVE); PH,URINE 8 (4.5-8.0); PROTEIN,URINE NEGATIVE (NEGATIVE); UROBILINOGEN,URINE NORMAL MG/DL (0.0-1.0)
[2020-04-18 13:22] LABS: ALANINE AMINOTRANSFERASE < 6 U/L (12-78); ALBUMIN 1.6 G/DL (3.4-5.0); ALBUMIN/GLOBULIN RATIO 0.3 (1.0-2.7); ALKALINE PHOSPHATASE 86 U/L (46-116); ASPARTATE AMINO TRANSFERASE 20 U/L (15-37); BILIRUBIN,TOTAL 0.2 MG/DL (0.2-1.0); INR 1.2 (0.9-1.1); PHOSPHORUS 3.6 MG/DL (2.5-4.9)
[2020-04-18] MEDS ORDERED: Milk of Magnesia 30ml Ud ORAL PRN (14:30)
[2020-04-18] MEDS ORDERED: Miralax 17gm pkt ORAL PRN (14:30)
[2020-04-18] MEDS ORDERED: Vancomycin 1.5gm/NS Premix 275 ML IVPB SCH (14:30)
--- NOTE | 2020-04-18 14:48 | Diagnostic Imaging Report ---
Indication: Tachypnea Technique: One view of the chest Comparison: 04/13/2020 Findings: There inspiration currently. Previously demonstrated left suprahilar and perihilar infiltrates, right midlung infiltrate are probably unchanged left-sided pleural effusion appears slightly increased. The heart size is normal. Left arm PICC is now present Impression: Slightly increased left pleural effusion Stable bilateral infiltrates
[2020-04-18 15:02] VITALS: BP 152/77
--- NOTE | 2020-04-18 15:02 | NUR ---
ED Nurse Note: Pt HR is 80-100 on ekg monitor tech at this time. No respiratory distress noted. AAO x4 and follows commands.
--- NOTE | 2020-04-18 15:31 | NUR ---
ED Nurse Note: Noted multiple wounds on her sacrum. Unable to upload pictures. ER charge nurse aware.
--- NOTE | 2020-04-18 15:38 | History and Physical ---
History of Present Illness General Reason for Hospitalization: Pain Present Illness HPI 69-year-old female with PMH of A. fib, chronic pain, diverticulitis, HTN, HLD who presents from SNF for uncontrolled chronic pain and A. fib RVR. Patient was at retirement when she was found to have a HR of 150, patient was sent to the ED was found to be in rapid A. fib RVR, was given diltiazem p.o. and IV with return to regular rate. Of note, patient was recently DC'd from hospital on 04/17 for a long hospitalization due to pneumonia, was tested negative for COVID, and was planned to complete IV ABX treatment of Micagungin, Polymoxin, Vancomyin for 3 more days. Patient currently denies any NAVARRO, vision changes, CP, S OB, abdominal pain, pain around her ostomy bag. Patient has no other concerns at this time. ED course: Patient was found to be in A. fib RVR, HR improved with diltiazem. Patient will be admitted for further treatment and evaluation. Allergies: Coded Allergies: LISINOPRIL (Verified Allergy, Unknown, Hives, 04/12/14) COVID-19 Screening Contact w/high risk pt: No Recent Travel to affected area: No Experienced COVID-19 symptoms?: No COVID-19 symptoms experienced: Fever (T>100.4F or >38C), Shortness of Breath Medication History Scheduled Amiodarone Hcl* (Pacerone*), 200 MG ORAL DAILY Amlodipine Besylate* (Amlodipine Besylate*), 10 MG ORAL DAILY, (Reported) Diltiazem HCl (Diltiazem HCl), 90 MG ORAL EVERY 8 HOURS Docusate Sodium (Docusate Sodium), 100 MG ORAL Q12HR Doxazosin Mesylate* (Doxazosin Mesylate*), 4 MG ORAL DAILY, (Reported) Duloxetine Hcl* (Cymbalta*), 60 MG ORAL BID, (Reported) Furosemide* (Lasix*), 40 MG ORAL EVERY 12 HOURS Gabapentin* (Gabapentin*), 300 MG ORAL BEDTIME, (Reported) Hydralazine HCl (Hydralazine HCl), 50 MG ORAL Q6HR Micafungin Sodium (Micafungin), 100 MG IV yanick Phosphorus (Phospha 250 Neutral Tablet), 250 MG ORAL THREE TIMES A DAY Rivaroxaban (Xarelto), 15 MG ORAL DAILY Simvastatin (Zocor), 10 MG ORAL BEDTIME, (Reported) Scheduled PRN Methocarbamol* (Robaxin-500*), 500 MG ORAL QID PRN Discontinued Medications Baclofen* (Baclofen*), 10 MG ORAL NEEDED, (Reported) Discontinued Reason: Medication dose changed Hydrocodone/Acetaminophen (Hydrocodon-Acetaminophn 10-325), 1 TAB ORAL Q6H PRN for For Pain, (Reported) Discontinued Reason: Pt stopped taking med Metoprolol Tartrate* (Metoprolol Tartrate*), 100 MG ORAL EVERY 12 HOURS, ( Reported) Discontinued Reason: Medication dose changed Polymyxin B Sulfate,Micronized (Polymyxin B Sulfate), 50,000,000 UNIT MC Q12HR Discontinued Reason: Pt stopped taking med Trazodone* (Trazodone*), 200 MG ORAL BEDTIME, (Reported) Discontinued Reason: Pt stopped taking med Vancomycin HCl in Water (Vancomycin 1,500 mg/15Ml-Water), 1.5 GM IV DAILY Discontinued Reason: Pt stopped taking med [Vanco pharmacy to dose], 1 EA MISC DAILY PRN Discontinued Reason: Pt stopped taking med Patient History Healthcare decision maker Resuscitation status Advanced Directive on File Review of Systems ROS Narrative 14 point ROS reviewed and negative unless stated in HPI. Physical Exam Physical Exam Narrative General: NAD, A&O x 3 HEENT: NCAT, EOMi, MMM CV: RRR, no murmurs, rubs, or gallops Pulm: CTAB, No wheezes, rhonchi, or rales, no accessory muscle usage or conversational dyspnea GI: Soft, nontender, nondistended, bowel sounds present, ostomy C/D/I with gas present Ext: No lower extremity edema bilaterally Skin: no rashes lesions, normal turgor Last 24 Hour Vital Signs Date Time Temp Pulse Resp B/P (MAP) Pulse Ox O2 Delivery O2 Flow Rate FiO2 04/18/20 13:11 97.9 115 20 154/70 98 Room Air 04/18/20 13:01 147 132/63 04/18/20 12:46 140 103/60 04/18/20 12:00 97.9 138 19 103/60 96 Room Air 04/18/20 11:51 97.9 140 24 103/60 (74) 94 Laboratory Tests Test 04/18/20 12:40 White Blood Count 4.5 K/UL (4.8-10.8) L Red Blood Count 3.13 M/UL (4.20-5.40) L Hemoglobin 8.0 G/DL (12.0-16.0) L Hematocrit 27.0 % (37.0-47.0) L Mean Corpuscular Volume 86 FL (80-99) Mean Corpuscular Hemoglobin 25.6 PG (27.0-31.0) L Mean Corpuscular Hemoglobin Concent 29.8 G/DL (32.0-36.0) L Red Cell Distribution Width 16.4 % (11.6-14.8) H Platelet Count 451 K/UL (150-450) H Mean Platelet Volume 6.1 FL (6.5-10.1) L Neutrophils (%) (Auto) 64.6 % (45.0-75.0) Lymphocytes (%) (Auto) 20.9 % (20.0-45.0) Monocytes (%) (Auto) 11.6 % (1.0-10.0) H Eosinophils (%) (Auto) 1.9 % (0.0-3.0) Basophils (%) (Auto) 1.0 % (0.0-2.0) Prothrombin Time 13.1 SEC (9.30-11.50) H Prothromb Time International Ratio 1.2 (0.9-1.1) H Activated Partial Thromboplast Time 35 SEC (23-33) H Urine Color Pale yellow Urine Appearance Clear Urine pH 8 (4.5-8.0) Urine Specific [place] 1.010 (1.005-1.035) Urine Protein Negative (NEGATIVE) Urine Glucose (UA) Negative (NEGATIVE) Urine Ketones Negative (NEGATIVE) Urine Blood 4+ (NEGATIVE) H Urine Nitrite Negative (NEGATIVE) Urine Bilirubin Negative (NEGATIVE) Urine Urobilinogen Normal MG/DL (0.0-1.0) Urine Leukocyte Esterase Negative (NEGATIVE) Urine RBC 40-60 /HPF (0 - 2) H Urine WBC 0-2 /HPF (0 - 2) Urine Squamous Epithelial Cells Occasional /LPF Urine Bacteria Occasional /HPF (NONE) Sodium Level 143 MMOL/L (136-145) Potassium Level 3.0 MMOL/L (3.5-5.1) L Chloride Level 106 MMOL/L (98-107) Carbon Dioxide Level 27 MMOL/L (21-32) Anion Gap 10 mmol/L (5-15) Blood Urea Nitrogen 9 mg/dL (7-18) Creatinine 1.0 MG/DL (0.55-1.30) Estimat Glomerular Filtration Rate > 60 mL/min (>60) Glucose Level 99 MG/DL (74-106) Calcium Level 8.3 MG/DL (8.5-10.1) L Phosphorus Level 3.6 MG/DL (2.5-4.9) Magnesium Level 1.2 MG/DL (1.8-2.4) L Total Bilirubin 0.2 MG/DL (0.2-1.0) Aspartate Amino Transf (AST/SGOT) 20 U/L (15-37) Alanine Aminotransferase (ALT/SGPT) < 6 U/L (12-78) L Alkaline Phosphatase 86 U/L (46-116) Troponin I 0.012 ng/mL (0.000-0.056) Pro-B-Type Natriuretic Peptide 2346 pg/mL (0-125) H Total Protein 6.2 G/DL (6.4-8.2) L Albumin 1.6 G/DL (3.4-5.0) L Globulin 4.6 g/dL Albumin/Globulin Ratio 0.3 (1.0-2.7) L Urine Opiates Screen Positive (NEGATIVE) H Urine Barbiturates Screen Negative (NEGATIVE) Phencyclidine (PCP) Screen Negative (NEGATIVE) Urine Amphetamines Screen Negative (NEGATIVE) Urine Benzodiazepines Screen Negative (NEGATIVE) Urine Cocaine Screen Negative (NEGATIVE) Urine Marijuana (THC) Screen Negative (NEGATIVE) Height (Feet): 5 Height (Inches): 10.00 Weight (Pounds): 200 Medications Current Medications Medications (Trade) Dose Ordered Sig/Debbie Route PRN Reason Start Time Stop Time Status Last Admin Dose Admin Amiodarone HCl (Cordarone) 200 mg DAILY ORAL 04/19/20 09:00 07/18/20 08:59 Amlodipine Besylate (Norvasc) 10 mg DAILY ORAL 04/19/20 09:00 05/19/20 08:59 Bisacodyl (Dulcolax) 10 mg DAILYPRN PRN RECTAL Constipation 04/18/20 14:30 07/17/20 14:29 Dextrose (Dextrose 50%) 25 ml Q30M PRN IV Hypoglycemia 04/18/20 14:30 07/17/20 14:29 Dextrose (Dextrose 50%) 50 ml Q30M PRN IV Hypoglycemia 04/18/20 14:30 07/17/20 14:29 Diltiazem HCl (Cardizem Tab) 90 mg EVERY 8 HOURS ORAL 04/18/20 22:00 05/18/20 21:59 Diphenhydramine HCl (Benadryl) 25 mg Q6H PRN ORAL Itching/Pruritis 04/18/20 14:30 05/18/20 14:29 Docusate Sodium (Colace) 100 mg EVERY 12 HOURS ORAL 04/18/20 21:00 05/18/20 20:59 Doxazosin Mesylate (Cardura) 4 mg DAILY ORAL 04/19/20 09:00 05/19/20 08:59 Duloxetine HCl (Cymbalta) 60 mg BID ORAL 04/18/20 18:00 07/17/20 17:59 Furosemide (Lasix) 40 mg EVERY 12 HOURS ORAL 04/18/20 21:00 05/18/20 20:59 Gabapentin (Neurontin) 300 mg BEDTIME ORAL 04/18/20 21:00 05/18/20 20:59 Hydralazine HCl (Apresoline) 50 mg Q6HR ORAL 04/18/20 18:00 07/17/20 17:59 Lorazepam (Ativan 2mg/ml 1ml) 0.5 mg Q4H PRN IV For Anxiety 04/18/20 14:30 04/25/20 14:29 Magnesium Hydroxide (Mom) 30 ml HSPRN PRN ORAL Constipation 04/18/20 14:30 05/18/20 14:29 Methocarbamol (Robaxin) 500 mg QIDPRN PRN ORAL Muscle Spasm 04/18/20 14:30 05/18/20 14:29 Micafungin Sodium 100 mg/Sodium Chloride 110 ml @ 110 mls/hr Q24H IVPB 04/18/20 18:00 04/21/20 17:59 Ondansetron HCl (Zofran) 4 mg Q6H PRN IVP Nausea & Vomiting 04/18/20 14:30 05/18/20 14:29 Oxycodone/ Acetaminophen (Percocet 10/325) 1 tab Q4H PRN ORAL pain 04/18/20 12:45 04/25/20 12:44 04/18/20 12:48 Phosphorus (Phospha 250 Neutral) 250 mg THREE TIMES A DAY ORAL 04/18/20 18:00 05/18/20 17:59 Polyethylene Glycol (Miralax) 17 gm DAILYPRN PRN ORAL Constipation 04/18/20 14:30 05/18/20 14:29 Polymyxin B Sulfate 019292 units/Dextrose 550 ml @ 550 mls/hr Q12H IV 04/18/20 17:00 04/25/20 16:59 Potassium Chloride (K-Dur) 40 meq ONCE ORAL 04/18/20 14:44 04/18/20 17:00 Rivaroxaban (Xarelto) 15 mg DAILY ORAL 04/19/20 09:00 07/18/20 08:59 Vancomycin HCl (Vanco pharmacy to dose) 1 ea DAILY PRN MISC Per rx protocol 04/18/20 14:45 05/18/20 14:44 Vancomycin/Sodium Chloride 275 ml @ 183.333 mls/hr Q12HR@0600,1800 IVPB 04/18/20 18:00 04/23/20 17:59 Assessment/Plan Assessment/Plan: 69-year-old female with PMH of A. fib, chronic pain, diverticulitis, HTN, HLD who presents from SNF for uncontrolled chronic pain and A. fib RVR. #Afib w/ RVR -admit to tele, obs -likely 2/2 uncontrolled pain and electrolyte abnormality -s/p diltiazem PO and IV in ED, now rate controlled -cont home amiodarone, cardizem, Xarelto -Cardio, Dr. Crooks, consulted, recs appreciated -EP, Dr. Scott, consulted, recs appreciated #Hypokalemia #Hypomagnesemia -replaced, ctm -replace PRN #Left Plueral Effusion -CXR on admission w/slight increased left pleural effusion -pt w/no conversational dyspnea, lungs CTAB, ctm at this time -Puln, Dr. Cordova consulted #Hx Sepsis, HCAP/UTI, + ESBL -Sputum w/ multiple MDR organisms, now requiring aggressive AB -cont Micagungin, Polymoxin, Vancomyin for 3 more days -ID consulted, recs appreciated #Iron Deficiency Anemia #Hx of FOBT + -s/p EGD/colon on 04/16 showing gastritis, ulcers near ostomy bag likely ischemic , biopsies obtained, follow-up pathology -Hemoglobin stable -ctm Hgb, transfuse for hgb <7 #Chronic Pain -Continue Robaxin for spasms -Cont Percocet PRN -morphine for breakthrough pain #Seizure vs prolonged period of immobility #S/P Acute metabolic Encephalopathy -cont home meds #Hx of Colectomy w/ Colostomy -wound care DVT ppx: Xarelto Full Code Dispo 1-2d I spent 70 mins on this encounter w/ 35 min on care/coordination and pt counseling. D/w Rn at bedside, Dr. Dean, Dr. Crooks, Dr. Valdes, Dr. Iglesias and Pt's PCP, Dr. Montes. Time spent may not reflect in note. Delphine Cochran M.D. Apr 18, 2020 15:38
--- NOTE | 2020-04-18 15:44 | NUR ---
ED Nurse Note: Report given to Sherry ARCOS of telemtry unit.
--- NOTE | 2020-04-18 16:01 | NUR ---
ED Nurse Note: Pt transferred to telemetry via gurney with all her belongings. Pt on portable ekg monitor tech and stable.
[2020-04-18 16:30] VITALS: BP 140/73
--- NOTE | 2020-04-18 17:13 | Consultation ---
History of Present Illness General Date patient seen: Apr 18, 2020 Reason for Hospitalization: Pain Present Illness HPI 69 year old female well know to me from recent admission. She was just discharged yesterday but in facility noted to have worsening pain and cardiac arrhythmia. Was transported to [facility] ED for evaluation and admitted for care and management. Given pain, history, and condition surgery called to assist with care and management with continuity of care while in hospital. patient seen, chart reviewed, patient examined. states is a bit better now but was feeling abd pain and back pain. no n/v/f/c. labs reviewed, micro pending, imaging reviewed. Allergies: Coded Allergies: LISINOPRIL (Verified Allergy, Unknown, Hives, 04/12/14) COVID-19 Screening Contact w/high risk pt: No Recent Travel to affected area: No Experienced COVID-19 symptoms?: No COVID-19 symptoms experienced: Fever (T>100.4F or >38C), Shortness of Breath Medication History Scheduled Amiodarone Hcl* (Pacerone*), 200 MG ORAL DAILY Amlodipine Besylate* (Amlodipine Besylate*), 10 MG ORAL DAILY, (Reported) Diltiazem HCl (Diltiazem HCl), 90 MG ORAL EVERY 8 HOURS Docusate Sodium (Docusate Sodium), 100 MG ORAL Q12HR Doxazosin Mesylate* (Doxazosin Mesylate*), 4 MG ORAL DAILY, (Reported) Duloxetine Hcl* (Cymbalta*), 60 MG ORAL BID, (Reported) Furosemide* (Lasix*), 40 MG ORAL EVERY 12 HOURS Gabapentin* (Gabapentin*), 300 MG ORAL BEDTIME, (Reported) Hydralazine HCl (Hydralazine HCl), 50 MG ORAL Q6HR Micafungin Sodium (Micafungin), 100 MG IV yanick Phosphorus (Phospha 250 Neutral Tablet), 250 MG ORAL THREE TIMES A DAY Rivaroxaban (Xarelto), 15 MG ORAL DAILY Simvastatin (Zocor), 10 MG ORAL BEDTIME, (Reported) Scheduled PRN Methocarbamol* (Robaxin-500*), 500 MG ORAL QID PRN Discontinued Medications Baclofen* (Baclofen*), 10 MG ORAL NEEDED, (Reported) Discontinued Reason: Medication dose changed Hydrocodone/Acetaminophen (Hydrocodon-Acetaminophn 10-325), 1 TAB ORAL Q6H PRN for For Pain, (Reported) Discontinued Reason: Pt stopped taking med Metoprolol Tartrate* (Metoprolol Tartrate*), 100 MG ORAL EVERY 12 HOURS, ( Reported) Discontinued Reason: Medication dose changed Polymyxin B Sulfate,Micronized (Polymyxin B Sulfate), 50,000,000 UNIT MC Q12HR Discontinued Reason: Pt stopped taking med Trazodone* (Trazodone*), 200 MG ORAL BEDTIME, (Reported) Discontinued Reason: Pt stopped taking med Vancomycin HCl in Water (Vancomycin 1,500 mg/15Ml-Water), 1.5 GM IV DAILY Discontinued Reason: Pt stopped taking med [Vanco pharmacy to dose], 1 EA MISC DAILY PRN Discontinued Reason: Pt stopped taking med Patient History Limited by: medical condition History Provided By: Patient, Medical Record, PMD Healthcare decision maker Resuscitation status Advanced Directive on File Past Medical/Surgical History Past Medical/Surgical History: (1) Atrial flutter (2) Hypertension (3) Acute encephalopathy (4) VENTURA (acute kidney injury) (5) Acute and chronic respiratory failure with hypoxia (6) Abscess (7) Fistula (8) Sciatica neuralgia (9) Uncontrolled seizures (10) Forgetfulness (11) Sacral decubitus ulcer (12) Overdose of opiate or related narcotic (13) Cellulitis of left leg (1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 (15) Ventral incisional hernia (16) Chronic pain of both knees (17) Dehydration (18) AMS (altered mental status) (19) Chronic back pain (20) Rapid atrial fibrillation Review of Systems Review of Symptoms General ROS: no weight loss or fever Psychological ROS: no depression or mood changes, no memory loss Ophthalmic ROS: no visual changes or eye irritation ENT ROS: no nasal congestion, hearing loss, dizziness Allergy and Immunology ROS: no allergic symptoms or urticaria Hematological and Lymphatic ROS: no swollen glands, unusual bleeding or bruising Endocrine ROS: no polyuria, polydipsia, weight changes, temperature intolerance Respiratory ROS: no cough, shortness of breath, or wheezing Cardiovascular ROS: no chest pain or dyspnea on exertion Gastrointestinal ROS: +abdominal pain, no bright red blood in stool. +ostomy Musculoskeletal ROS: no myalgias or arthralgias Neurological ROS: no TIA or stroke symptoms Dermatological ROS: no new or changing skin lesions, rashes or pruritis Physical Exam Physical Exam General appearance: alert, cooperative, no distress, appears stated age Head: Normocephalic, without obvious abnormality, atraumatic Eyes: conjunctivae/corneas clear. PERRL, EOM's intact. Fundi benign Throat: Lips, mucosa, and tongue normal. Teeth and gums normal Neck: supple, symmetrical, trachea midline, no adenopathy, thyroid: not enlarged, symmetric, no tenderness/mass/nodules, no carotid bruit and no JVD Lungs: clear to auscultation bilaterally Heart: regular rate and rhythm, S1, S2 normal, no murmur, click, rub or gallop Abdomen: soft, non-tender. Bowel sounds normal. No masses, no organomegaly + ostomy Extremities: extremities normal, atraumatic, no cyanosis or edema Pulses: 2+ and symmetric Skin: Skin color, texture, turgor normal. dti Neurologic: Grossly normal Last 24 Hour Vital Signs Date Time Temp Pulse Resp B/P (MAP) Pulse Ox O2 Delivery O2 Flow Rate FiO2 04/18/20 16:01 98.5 92 18 152/77 100 Room Air 04/18/20 15:02 98.5 92 18 152/77 100 Room Air 04/18/20 13:18 98.5 04/18/20 13:11 97.9 115 20 154/70 98 Room Air 04/18/20 13:01 147 132/63 04/18/20 12:46 140 103/60 04/18/20 12:00 97.9 138 19 103/60 96 Room Air 04/18/20 11:51 97.9 140 24 103/60 (74) 94 Laboratory Tests Test 04/18/20 12:40 White Blood Count 4.5 K/UL (4.8-10.8) L Red Blood Count 3.13 M/UL (4.20-5.40) L Hemoglobin 8.0 G/DL (12.0-16.0) L Hematocrit 27.0 % (37.0-47.0) L Mean Corpuscular Volume 86 FL (80-99) Mean Corpuscular Hemoglobin 25.6 PG (27.0-31.0) L Mean Corpuscular Hemoglobin Concent 29.8 G/DL (32.0-36.0) L Red Cell Distribution Width 16.4 % (11.6-14.8) H Platelet Count 451 K/UL (150-450) H Mean Platelet Volume 6.1 FL (6.5-10.1) L Neutrophils (%) (Auto) 64.6 % (45.0-75.0) Lymphocytes (%) (Auto) 20.9 % (20.0-45.0) Monocytes (%) (Auto) 11.6 % (1.0-10.0) H Eosinophils (%) (Auto) 1.9 % (0.0-3.0) Basophils (%) (Auto) 1.0 % (0.0-2.0) Prothrombin Time 13.1 SEC (9.30-11.50) H Prothromb Time International Ratio 1.2 (0.9-1.1) H Activated Partial Thromboplast Time 35 SEC (23-33) H Urine Color Pale yellow Urine Appearance Clear Urine pH 8 (4.5-8.0) Urine Specific [place] 1.010 (1.005-1.035) Urine Protein Negative (NEGATIVE) Urine Glucose (UA) Negative (NEGATIVE) Urine Ketones Negative (NEGATIVE) Urine Blood 4+ (NEGATIVE) H Urine Nitrite Negative (NEGATIVE) Urine Bilirubin Negative (NEGATIVE) Urine Urobilinogen Normal MG/DL (0.0-1.0) Urine Leukocyte Esterase Negative (NEGATIVE) Urine RBC 40-60 /HPF (0 - 2) H Urine WBC 0-2 /HPF (0 - 2) Urine Squamous Epithelial Cells Occasional /LPF Urine Bacteria Occasional /HPF (NONE) Sodium Level 143 MMOL/L (136-145) Potassium Level 3.0 MMOL/L (3.5-5.1) L Chloride Level 106 MMOL/L (98-107) Carbon Dioxide Level 27 MMOL/L (21-32) Anion Gap 10 mmol/L (5-15) Blood Urea Nitrogen 9 mg/dL (7-18) Creatinine 1.0 MG/DL (0.55-1.30) Estimat Glomerular Filtration Rate > 60 mL/min (>60) Glucose Level 99 MG/DL (74-106) Calcium Level 8.3 MG/DL (8.5-10.1) L Phosphorus Level 3.6 MG/DL (2.5-4.9) Magnesium Level 1.2 MG/DL (1.8-2.4) L Total Bilirubin 0.2 MG/DL (0.2-1.0) Aspartate Amino Transf (AST/SGOT) 20 U/L (15-37) Alanine Aminotransferase (ALT/SGPT) < 6 U/L (12-78) L Alkaline Phosphatase 86 U/L (46-116) Troponin I 0.012 ng/mL (0.000-0.056) Pro-B-Type Natriuretic Peptide 2346 pg/mL (0-125) H Total Protein 6.2 G/DL (6.4-8.2) L Albumin 1.6 G/DL (3.4-5.0) L Globulin 4.6 g/dL Albumin/Globulin Ratio 0.3 (1.0-2.7) L Urine Opiates Screen Positive (NEGATIVE) H Urine Barbiturates Screen Negative (NEGATIVE) Phencyclidine (PCP) Screen Negative (NEGATIVE) Urine Amphetamines Screen Negative (NEGATIVE) Urine Benzodiazepines Screen Negative (NEGATIVE) Urine Cocaine Screen Negative (NEGATIVE) Urine Marijuana (THC) Screen Negative (NEGATIVE) Microbiology Date/Time Source Procedure Growth Status 04/18/20 14:50 Rectum Received Height (Feet): 5 Height (Inches): 10.00 Weight (Pounds): 200 Medications Current Medications Medications (Trade) Dose Ordered Sig/Debbie Route PRN Reason Start Time Stop Time Status Last Admin Dose Admin Amiodarone HCl (Cordarone) 200 mg DAILY ORAL 04/19/20 09:00 07/18/20 08:59 Amlodipine Besylate (Norvasc) 10 mg DAILY ORAL 04/19/20 09:00 05/19/20 08:59 Bisacodyl (Dulcolax) 10 mg DAILYPRN PRN RECTAL Constipation 04/18/20 14:30 07/17/20 14:29 Dextrose (Dextrose 50%) 25 ml Q30M PRN IV Hypoglycemia 04/18/20 14:30 07/17/20 14:29 Dextrose (Dextrose 50%) 50 ml Q30M PRN IV Hypoglycemia 04/18/20 14:30 07/17/20 14:29 Diltiazem HCl (Cardizem Tab) 90 mg EVERY 8 HOURS ORAL 04/18/20 22:00 05/18/20 21:59 Diphenhydramine HCl (Benadryl) 25 mg Q6H PRN ORAL Itching/Pruritis 04/18/20 14:30 05/18/20 14:29 Docusate Sodium (Colace) 100 mg EVERY 12 HOURS ORAL 04/18/20 21:00 05/18/20 20:59 Doxazosin Mesylate (Cardura) 4 mg DAILY ORAL 04/19/20 09:00 05/19/20 08:59 Duloxetine HCl (Cymbalta) 60 mg BID ORAL 04/18/20 18:00 07/17/20 17:59 Furosemide (Lasix) 40 mg EVERY 12 HOURS ORAL 04/18/20 21:00 05/18/20 20:59 Gabapentin (Neurontin) 300 mg BEDTIME ORAL 04/18/20 21:00 05/18/20 20:59 Hydralazine HCl (Apresoline) 50 mg Q6HR ORAL 04/18/20 18:00 07/17/20 17:59 Lorazepam (Ativan 2mg/ml 1ml) 0.5 mg Q4H PRN IV For Anxiety 04/18/20 14:30 04/25/20 14:29 Magnesium Hydroxide (Mom) 30 ml HSPRN PRN ORAL Constipation 04/18/20 14:30 05/18/20 14:29 Magnesium Sulfate 100 ml @ 100 mls/hr Q1H IVPB 04/18/20 15:45 04/18/20 19:44 04/18/20 16:28 Methocarbamol (Robaxin) 500 mg QIDPRN PRN ORAL Muscle Spasm 04/18/20 14:30 05/18/20 14:29 Micafungin Sodium 100 mg/Sodium Chloride 110 ml @ 110 mls/hr Q24H IVPB 04/18/20 18:00 04/21/20 17:59 Ondansetron HCl (Zofran) 4 mg Q6H PRN IVP Nausea & Vomiting 04/18/20 14:30 05/18/20 14:29 Oxycodone/ Acetaminophen (Percocet 10/325) 1 tab Q4H PRN ORAL pain 04/18/20 12:45 04/25/20 12:44 04/18/20 16:49 Phosphorus (Phospha 250 Neutral) 250 mg THREE TIMES A DAY ORAL 04/18/20 18:00 05/18/20 17:59 Polyethylene Glycol (Miralax) 17 gm DAILYPRN PRN ORAL Constipation 04/18/20 14:30 05/18/20 14:29 Polymyxin B Sulfate 064512 units/Dextrose 550 ml @ 550 mls/hr Q12H IV 04/18/20 17:00 04/25/20 16:59 Rivaroxaban (Xarelto) 15 mg DAILY ORAL 04/19/20 09:00 07/18/20 08:59 Vancomycin HCl (Vanco pharmacy to dose) 1 ea DAILY PRN MISC Per rx protocol 04/18/20 14:45 05/18/20 14:44 Vancomycin/Sodium Chloride 275 ml @ 183.333 mls/hr Q12HR@0600,1800 IVPB 04/18/20 18:00 04/23/20 17:59 Assessment/Plan Assessment/Plan: (1) Atrial flutter on rx held s/s anemia prbc cardiology input appreciated (2) Hypertension (3) Acute encephalopathy (4) VENTURA (acute kidney injury) (5) Acute and chronic respiratory failure with hypoxia (6) Abscess (7) Fistula (8) Sciatica neuralgia (9) Uncontrolled seizures (10) Forgetfulness (11) Sacral decubitus ulcer Assessment & Plan: Patient identified to have a sacral deep tissue injury upon admission air mattress prior and will order while in admission Care plan initiated (12) Chronic back pain (13) Overdose of opiate or related narcotic (14) Cellulitis of left leg (15) Pericolonic abscess due to diverticulitis (16) Ventral incisional hernia Assessment & Plan: History of colon resection colostomy Ventral incisional hernia reducible No acute invention monitor parastomal hernia stable ostomy viable and functional no acute intervention planned unlikely etiology of pain (17) Chronic pain of both knees (18) Dehydration (19) Hyperkalemia (20) Sepsis Assessment & Plan: Patient reports not liking current diet texture of Moist Puree with Thin Liquids. Patient completed PO intake of solids (crackers), Patient's swallow is grossly functional. Plan: 1. Upgrade Diet Texture to Soft Solids and continue Thin Liquids; type/ supplements per RD. 2. Nursing to assist Patient with oral care BID. DAILY ESTIMATED NEEDS: Needs based on Pulmonary, sepsis, wound, VENTURA 75.8kg adj 20-30 kcals/kg 0710-8019 total kcals 1.25-1.5 g protein/kg 94-114 g total protein 25-30 mL/kg 0569-2028 total fluid mLs NUTRITION DIAGNOSIS: Swallowing difficulty r/t respiratory status as evidenced by pt orally intubated, on NGT feeds-> now extubated, pending SCHOOL LEADER eval. PO DIET RECOMMENDATIONS-->>> Cardiac diet / texture per SCHOOL LEADER ENTERAL NUTRITION RECOMMENDATIONS: VITAL AF 1.2 @55ml/hr x24 hrs to provide 1320ml, 1584 kcal, 99g pro, 1071ml free H2O - Maintain at goal as tolerated if not cleared for oral diet by SCHOOL LEADER - Flush per MD/ HOB over 30 degree ADDITIONAL RECOMMENDATIONS: 1) Maintain calibrated bed scale wts (248lbs vs 217lbs last adm) 2) Monitor renal fxn and lytes closely, need for renal formula Creat wnl; lytes low (K,phos,mg) 3) Wound healing: ZnSO4 220mg QD x 10 days+ Boris BID via NGT hold vit C until renal fxn improves 4) NISS w/ TF, h/o DM 5) Monitor po intake if cleared for oral diet; need for snacks/supplements Julian Iglesias Apr 18, 2020 17:13
[2020-04-18] MEDS: Phospha 250 Neutral tab ORAL SCH (17:14)
[2020-04-18] MEDS: DULoxetine 30mg cap ORAL SCH (17:14)
[2020-04-18] MEDS: Polymyxin B Sulfate 500,000 UNITS in D5W 500ml 550 ML IV SCH (17:14)
[2020-04-18] MEDS: HydrALAZINE 50mg tab ORAL SCH (17:14)
--- NOTE | 2020-04-18 17:27 | NUR ---
*-*DISCHARGE PLANNING*-* [phone] [facility], WILL ACCEPT PATIENT BACK TO ROOM# 53.B SKILLED, UPON DISCHARGE.
[2020-04-18] MEDS ORDERED: Micafungin 100 MG in NS 110 ML IVPB SCH (18:00)
[2020-04-18] MEDS: Vancomycin 1.25gm/NS Premix q24h IVPB SCH (18:35)
--- NOTE | 2020-04-18 19:00 | NUR ---
NURSE NOTES: Received pt from MARKETING SERVICES VICE PRESIDENT Meera [id number], all admission assessments and instructions done and pt verbally confirmed to understand all. Pt is on continues heart monitoring, pt has Desai cath in place is working well. pt has colostomy bag in place is working well, no leaking noted. pt has PICC FIDENCIO arm is running well. per MARKETING SERVICES VICE PRESIDENT, they didn't give pt KCL and MAG, so RN administered in Tele. pt is on continues heart monitoring. Dr Cochran is aware about admission and K 3, HB 8 MG and other lab results and V/S, she will F/U. pt has multiple wound, Dr Iglesias visited pt. all needs attended, bed is locked and is in the lowest position, call light within easy reach. will continue to monitor.
--- NOTE | 2020-04-18 19:30 | NUR ---
HAND-OFF: Report given to JOSSELYN Lucas.pt is awake and stable, Endorsed plan of care.
--- NOTE | 2020-04-18 19:42 | NUR ---
HAND-OFF: Report given to JOSSELYN Lucas.pt is awake and stable, Endorsed plan of care.
--- NOTE | 2020-04-18 19:52 | NUR ---
NURSE NOTES: Received patient in bed, awake, alert, oriented, no acute distress noted, IV site is clean dry and intact/ PICC line double lumen,Desai catheter is in place, draining well, secured. Patient is able to verbalize her needs, call light is within reach, bed is lowered, locked, alarm is on, will continue to monitor for comfort and safety.
[2020-04-18 20:00] VITALS: BP 125/63
--- NOTE | 2020-04-18 20:04 | Consultation ---
History of Present Illness General Chief Complaint: Pain Present Illness HPI She was discharged yesterday to [facility] - now coming back with afib RVR-- was found to have a HR of 150, patient was sent to the ED was found to be in rapid A. fib RVR, was given diltiazem p.o. and IV with return to regular rate. Of note, patient was recently DC'd from hospital on 04/17 for a long hospitalization due to pneumonia, was tested negative for COVID, and was planned to complete IV ABX treatment of Micagungin, Polymoxin, Vancomyin for 3 more days. Patient currently denies any NAVARRO, vision changes, CP, S OB, abdominal pain, pain around her ostomy bag. Patient has no other concerns at this time. Allergies: Coded Allergies: LISINOPRIL (Verified Allergy, Unknown, Hives, 04/12/14) Medication History Scheduled Amiodarone Hcl* (Pacerone*), 200 MG ORAL DAILY Amlodipine Besylate* (Amlodipine Besylate*), 10 MG ORAL DAILY, (Reported) Diltiazem HCl (Diltiazem HCl), 90 MG ORAL EVERY 8 HOURS Docusate Sodium (Docusate Sodium), 100 MG ORAL Q12HR Doxazosin Mesylate* (Doxazosin Mesylate*), 4 MG ORAL DAILY, (Reported) Duloxetine Hcl* (Cymbalta*), 60 MG ORAL BID, (Reported) Furosemide* (Lasix*), 40 MG ORAL EVERY 12 HOURS Gabapentin* (Gabapentin*), 300 MG ORAL BEDTIME, (Reported) Hydralazine HCl (Hydralazine HCl), 50 MG ORAL Q6HR Micafungin Sodium (Micafungin), 100 MG IV yanick Phosphorus (Phospha 250 Neutral Tablet), 250 MG ORAL THREE TIMES A DAY Rivaroxaban (Xarelto), 15 MG ORAL DAILY Simvastatin (Zocor), 10 MG ORAL BEDTIME, (Reported) Scheduled PRN Methocarbamol* (Robaxin-500*), 500 MG ORAL QID PRN Discontinued Medications Baclofen* (Baclofen*), 10 MG ORAL NEEDED, (Reported) Discontinued Reason: Medication dose changed Hydrocodone/Acetaminophen (Hydrocodon-Acetaminophn 10-325), 1 TAB ORAL Q6H PRN for For Pain, (Reported) Discontinued Reason: Pt stopped taking med Metoprolol Tartrate* (Metoprolol Tartrate*), 100 MG ORAL EVERY 12 HOURS, ( Reported) Discontinued Reason: Medication dose changed Polymyxin B Sulfate,Micronized (Polymyxin B Sulfate), 50,000,000 UNIT MC Q12HR Discontinued Reason: Pt stopped taking med Trazodone* (Trazodone*), 200 MG ORAL BEDTIME, (Reported) Discontinued Reason: Pt stopped taking med Vancomycin HCl in Water (Vancomycin 1,500 mg/15Ml-Water), 1.5 GM IV DAILY Discontinued Reason: Pt stopped taking med [Vanco pharmacy to dose], 1 EA MISC DAILY PRN Discontinued Reason: Pt stopped taking med Patient History Healthcare decision maker Resuscitation status Advanced Directive on File Review of Systems All Other Systems: negative except mentioned in HPI Physical Exam General Appearance: no apparent distress, alert Lines, tubes and drains: peripheral HEENT: normocephalic, atraumatic Neck: non-tender, normal alignment Respiratory/Chest: chest wall non-tender, lungs clear Cardiovascular/Chest: normal peripheral pulses, normal rate, irregularly irregular Abdomen: normal bowel sounds, non tender, soft Extremities: normal range of motion, non-tender Neurologic: alert, oriented x 3 Last 24 Hour Vital Signs Date Time Temp Pulse Resp B/P (MAP) Pulse Ox O2 Delivery O2 Flow Rate FiO2 04/18/20 17:19 97.9 04/18/20 17:14 140/73 04/18/20 16:30 97.9 91 20 140/73 (95) 96 04/18/20 16:30 Room Air 04/18/20 16:29 93 04/18/20 16:01 98.5 92 18 152/77 100 Room Air 04/18/20 15:02 98.5 92 18 152/77 100 Room Air 04/18/20 13:11 97.9 115 20 154/70 98 Room Air 04/18/20 13:01 147 132/63 04/18/20 12:46 140 103/60 04/18/20 12:00 97.9 138 19 103/60 96 Room Air 04/18/20 11:51 97.9 140 24 103/60 (74) 94 Laboratory Tests Test 04/18/20 12:40 White Blood Count 4.5 K/UL (4.8-10.8) L Red Blood Count 3.13 M/UL (4.20-5.40) L Hemoglobin 8.0 G/DL (12.0-16.0) L Hematocrit 27.0 % (37.0-47.0) L Mean Corpuscular Volume 86 FL (80-99) Mean Corpuscular Hemoglobin 25.6 PG (27.0-31.0) L Mean Corpuscular Hemoglobin Concent 29.8 G/DL (32.0-36.0) L Red Cell Distribution Width 16.4 % (11.6-14.8) H Platelet Count 451 K/UL (150-450) H Mean Platelet Volume 6.1 FL (6.5-10.1) L Neutrophils (%) (Auto) 64.6 % (45.0-75.0) Lymphocytes (%) (Auto) 20.9 % (20.0-45.0) Monocytes (%) (Auto) 11.6 % (1.0-10.0) H Eosinophils (%) (Auto) 1.9 % (0.0-3.0) Basophils (%) (Auto) 1.0 % (0.0-2.0) Prothrombin Time 13.1 SEC (9.30-11.50) H Prothromb Time International Ratio 1.2 (0.9-1.1) H Activated Partial Thromboplast Time 35 SEC (23-33) H Urine Color Pale yellow Urine Appearance Clear Urine pH 8 (4.5-8.0) Urine Specific [place] 1.010 (1.005-1.035) Urine Protein Negative (NEGATIVE) Urine Glucose (UA) Negative (NEGATIVE) Urine Ketones Negative (NEGATIVE) Urine Blood 4+ (NEGATIVE) H Urine Nitrite Negative (NEGATIVE) Urine Bilirubin Negative (NEGATIVE) Urine Urobilinogen Normal MG/DL (0.0-1.0) Urine Leukocyte Esterase Negative (NEGATIVE) Urine RBC 40-60 /HPF (0 - 2) H Urine WBC 0-2 /HPF (0 - 2) Urine Squamous Epithelial Cells Occasional /LPF Urine Bacteria Occasional /HPF (NONE) Sodium Level 143 MMOL/L (136-145) Potassium Level 3.0 MMOL/L (3.5-5.1) L Chloride Level 106 MMOL/L (98-107) Carbon Dioxide Level 27 MMOL/L (21-32) Anion Gap 10 mmol/L (5-15) Blood Urea Nitrogen 9 mg/dL (7-18) Creatinine 1.0 MG/DL (0.55-1.30) Estimat Glomerular Filtration Rate > 60 mL/min (>60) Glucose Level 99 MG/DL (74-106) Calcium Level 8.3 MG/DL (8.5-10.1) L Phosphorus Level 3.6 MG/DL (2.5-4.9) Magnesium Level 1.2 MG/DL (1.8-2.4) L Total Bilirubin 0.2 MG/DL (0.2-1.0) Aspartate Amino Transf (AST/SGOT) 20 U/L (15-37) Alanine Aminotransferase (ALT/SGPT) < 6 U/L (12-78) L Alkaline Phosphatase 86 U/L (46-116) Troponin I 0.012 ng/mL (0.000-0.056) Pro-B-Type Natriuretic Peptide 2346 pg/mL (0-125) H Total Protein 6.2 G/DL (6.4-8.2) L Albumin 1.6 G/DL (3.4-5.0) L Globulin 4.6 g/dL Albumin/Globulin Ratio 0.3 (1.0-2.7) L Urine Opiates Screen Positive (NEGATIVE) H Urine Barbiturates Screen Negative (NEGATIVE) Phencyclidine (PCP) Screen Negative (NEGATIVE) Urine Amphetamines Screen Negative (NEGATIVE) Urine Benzodiazepines Screen Negative (NEGATIVE) Urine Cocaine Screen Negative (NEGATIVE) Urine Marijuana (THC) Screen Negative (NEGATIVE) Microbiology Date/Time Source Procedure Growth Status 04/18/20 14:50 Rectum Received Height (Feet): 5 Height (Inches): 10.00 Weight (Pounds): 200 Medications Current Medications Medications (Trade) Dose Ordered Sig/Debbie Route PRN Reason Start Time Stop Time Status Last Admin Dose Admin Amiodarone HCl (Cordarone) 200 mg DAILY ORAL 04/19/20 09:00 07/18/20 08:59 Amlodipine Besylate (Norvasc) 10 mg DAILY ORAL 04/19/20 09:00 05/19/20 08:59 Bisacodyl (Dulcolax) 10 mg DAILYPRN PRN RECTAL Constipation 04/18/20 14:30 07/17/20 14:29 Dextrose (Dextrose 50%) 25 ml Q30M PRN IV Hypoglycemia 04/18/20 14:30 07/17/20 14:29 Dextrose (Dextrose 50%) 50 ml Q30M PRN IV Hypoglycemia 04/18/20 14:30 07/17/20 14:29 Diltiazem HCl (Cardizem Tab) 90 mg EVERY 8 HOURS ORAL 04/18/20 22:00 05/18/20 21:59 Diphenhydramine HCl (Benadryl) 25 mg Q6H PRN ORAL Itching/Pruritis 04/18/20 14:30 05/18/20 14:29 Docusate Sodium (Colace) 100 mg EVERY 12 HOURS ORAL 04/18/20 21:00 05/18/20 20:59 Doxazosin Mesylate (Cardura) 4 mg DAILY ORAL 04/19/20 09:00 05/19/20 08:59 Duloxetine HCl (Cymbalta) 60 mg BID ORAL 04/18/20 18:00 07/17/20 17:59 04/18/20 17:14 Furosemide (Lasix) 40 mg EVERY 12 HOURS ORAL 04/18/20 21:00 05/18/20 20:59 Gabapentin (Neurontin) 300 mg BEDTIME ORAL 04/18/20 21:00 05/18/20 20:59 Hydralazine HCl (Apresoline) 50 mg Q6HR ORAL 04/18/20 18:00 07/17/20 17:59 04/18/20 17:14 Lorazepam (Ativan 2mg/ml 1ml) 0.5 mg Q4H PRN IV For Anxiety 04/18/20 14:30 04/25/20 14:29 Magnesium Hydroxide (Mom) 30 ml HSPRN PRN ORAL Constipation 04/18/20 14:30 05/18/20 14:29 Methocarbamol (Robaxin) 500 mg QIDPRN PRN ORAL Muscle Spasm 04/18/20 14:30 05/18/20 14:29 Micafungin Sodium 100 mg/Sodium Chloride 110 ml @ 110 mls/hr Q24H IVPB 04/18/20 21:00 04/25/20 20:59 Ondansetron HCl (Zofran) 4 mg Q6H PRN IVP Nausea & Vomiting 04/18/20 14:30 05/18/20 14:29 Oxycodone/ Acetaminophen (Percocet 10/325) 1 tab Q4H PRN ORAL pain 04/18/20 12:45 04/25/20 12:44 04/18/20 16:49 Phosphorus (Phospha 250 Neutral) 250 mg THREE TIMES A DAY ORAL 04/18/20 18:00 05/18/20 17:59 04/18/20 17:14 Polyethylene Glycol (Miralax) 17 gm DAILYPRN PRN ORAL Constipation 04/18/20 14:30 05/18/20 14:29 Polymyxin B Sulfate 617578 units/Dextrose 550 ml @ 550 mls/hr Q12H IV 04/18/20 17:00 04/25/20 16:59 04/18/20 17:14 Rivaroxaban (Xarelto) 15 mg DAILY ORAL 04/19/20 09:00 07/18/20 08:59 Vancomycin HCl (Vanco pharmacy to dose) 1 ea DAILY PRN MISC Per rx protocol 04/18/20 14:45 05/18/20 14:44 Vancomycin/Sodium Chloride 275 ml @ 183.333 mls/hr Q12HR@0600,1800 IVPB 04/18/20 18:00 04/23/20 17:59 04/18/20 18:35 Assessment/Plan Diagnosis [place]: #Afib with RVR #HTN #Hypokalemia #Hypomagnesemia #Left Plueral Effusion #Hx Sepsis, HCAP/UTI, + ESBL #Chronic Pain #Iron Deficiency Anemia #Seizure vs prolonged period of immobility #S/P Acute metabolic Encephalopathy #Hx of Colectomy w/ Colostomy - tele - rate control per cardiology - replete lytes - monitor h -s/p EGD/colon on 04/16 showing gastritis, ulcers near ostomy bag likely ischemic , biopsies obtained, follow-up pathology -ctm Hgb, transfuse for hgb <7 -cont home meds -wound care - monitor renal function Time spent 45 min - greater than 50% on care coordination and counseling Venkat Montes M.D. Apr 18, 2020 20:04
--- NOTE | 2020-04-18 20:08 | Infectious Diseases Prog Note ---
Assessment/Plan Assessment/Plan Clinical update: patient discharge and re-admitted for a.fib with RVR Asked to follow-up for antibiotics. 1. hx esbl e.coli pna/acinetobacter pna, uti, sepsis, fevers, leukocytosis, a.flutter, respiratory failure, atx, dony, + ua, atx fungemia risk -s/p treatment - polymyxin, micafungin and vancomycin x 3 days - finish 2 week tx course for MDR pna - blood cultures negative - covid-19 testing negative x 4 - remove isolation - monitor labs - clinically stable - d/w Dr. Cochran 2. Respiratory failure, on vent. 3. Renal failure. 4. Diabetes. 5. Hypertension. 6. Diabetes and hypertension, treatment per primary care team. 7. Patient with history of altered mental status. 8. Seizure history. 9. Chronic neck pain. 10. Acute kidney injury and renal failure. 11. Allergies to lisinopril. 12. Social history is negative. 13. Family history is noncontributory. 14. MAR was noted. 15. Case was discussed with RN. 16. ICU care. 17. Skin care. 18. Continue treatment per primary consultants. Subjective Constitutional: Reports: fatigue; Denies: fever HEENT: Denies: congestion Respiratory: Denies: shortness of breath Gastrointestinal/Abdominal: Denies: nausea, vomiting, diarrhea Genitourinary: Reports: other - + weiss Neurologic: Denies: headache Psychiatric: Denies: depression Skin: Denies: rash Hematologic: Denies: bleeding Musculoskeletal: Denies: pain Allergies: Coded Allergies: LISINOPRIL (Verified Allergy, Unknown, Hives, 04/12/14) Objective Last 24 Hour Vital Signs Date Time Temp Pulse Resp B/P (MAP) Pulse Ox O2 Delivery O2 Flow Rate FiO2 04/18/20 17:19 97.9 04/18/20 17:14 140/73 04/18/20 16:30 97.9 91 20 140/73 (95) 96 04/18/20 16:30 Room Air 04/18/20 16:29 93 04/18/20 16:01 98.5 92 18 152/77 100 Room Air 04/18/20 15:02 98.5 92 18 152/77 100 Room Air 04/18/20 13:11 97.9 115 20 154/70 98 Room Air 04/18/20 13:01 147 132/63 04/18/20 12:46 140 103/60 04/18/20 12:00 97.9 138 19 103/60 96 Room Air 04/18/20 11:51 97.9 140 24 103/60 (74) 94 Height (Feet): 5 Height (Inches): 10.00 Weight (Pounds): 200 General Appearance: no acute distress HEENT: normocephalic, atraumatic, anicteric Respiratory/Chest: lungs clear, normal breath sounds, no respiratory distress, crackles/rales - few , rhonchi - bilaterally - few Cardiovascular: normal rate, regular rhythm, no gallop/murmur Abdomen: normal bowel sounds, soft, non tender, no organomegaly, non distended Genitourinary: other - + weiss Extremities: no cyanosis Skin: no rash 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 Previously demonstrated left suprahilar and perihilar infiltrates, right midlung infiltrate are probably unchanged left- sided pleural effusion appears slightly increased. The heart size is normal. Left arm PICC is now present Impression: Slightly increased left pleural effusion Stable bilateral infiltrates Microbiology Date/Time Source Procedure Growth Status 04/18/20 14:50 Rectum Received previous cultures on last admission noted Laboratory Tests Test 04/18/20 12:40 White Blood Count 4.5 K/UL (4.8-10.8) L Red Blood Count 3.13 M/UL (4.20-5.40) L Hemoglobin 8.0 G/DL (12.0-16.0) L Hematocrit 27.0 % (37.0-47.0) L Mean Corpuscular Volume 86 FL (80-99) Mean Corpuscular Hemoglobin 25.6 PG (27.0-31.0) L Mean Corpuscular Hemoglobin Concent 29.8 G/DL (32.0-36.0) L Red Cell Distribution Width 16.4 % (11.6-14.8) H Platelet Count 451 K/UL (150-450) H Mean Platelet Volume 6.1 FL (6.5-10.1) L Neutrophils (%) (Auto) 64.6 % (45.0-75.0) Lymphocytes (%) (Auto) 20.9 % (20.0-45.0) Monocytes (%) (Auto) 11.6 % (1.0-10.0) H Eosinophils (%) (Auto) 1.9 % (0.0-3.0) Basophils (%) (Auto) 1.0 % (0.0-2.0) Prothrombin Time 13.1 SEC (9.30-11.50) H Prothromb Time International Ratio 1.2 (0.9-1.1) H Activated Partial Thromboplast Time 35 SEC (23-33) H Urine Color Pale yellow Urine Appearance Clear Urine pH 8 (4.5-8.0) Urine Specific [place] 1.010 (1.005-1.035) Urine Protein Negative (NEGATIVE) Urine Glucose (UA) Negative (NEGATIVE) Urine Ketones Negative (NEGATIVE) Urine Blood 4+ (NEGATIVE) H Urine Nitrite Negative (NEGATIVE) Urine Bilirubin Negative (NEGATIVE) Urine Urobilinogen Normal MG/DL (0.0-1.0) Urine Leukocyte Esterase Negative (NEGATIVE) Urine RBC 40-60 /HPF (0 - 2) H Urine WBC 0-2 /HPF (0 - 2) Urine Squamous Epithelial Cells Occasional /LPF Urine Bacteria Occasional /HPF (NONE) Sodium Level 143 MMOL/L (136-145) Potassium Level 3.0 MMOL/L (3.5-5.1) L Chloride Level 106 MMOL/L (98-107) Carbon Dioxide Level 27 MMOL/L (21-32) Anion Gap 10 mmol/L (5-15) Blood Urea Nitrogen 9 mg/dL (7-18) Creatinine 1.0 MG/DL (0.55-1.30) Estimat Glomerular Filtration Rate > 60 mL/min (>60) Glucose Level 99 MG/DL (74-106) Calcium Level 8.3 MG/DL (8.5-10.1) L Phosphorus Level 3.6 MG/DL (2.5-4.9) Magnesium Level 1.2 MG/DL (1.8-2.4) L Total Bilirubin 0.2 MG/DL (0.2-1.0) Aspartate Amino Transf (AST/SGOT) 20 U/L (15-37) Alanine Aminotransferase (ALT/SGPT) < 6 U/L (12-78) L Alkaline Phosphatase 86 U/L (46-116) Troponin I 0.012 ng/mL (0.000-0.056) Pro-B-Type Natriuretic Peptide 2346 pg/mL (0-125) H Total Protein 6.2 G/DL (6.4-8.2) L Albumin 1.6 G/DL (3.4-5.0) L Globulin 4.6 g/dL Albumin/Globulin Ratio 0.3 (1.0-2.7) L Urine Opiates Screen Positive (NEGATIVE) H Urine Barbiturates Screen Negative (NEGATIVE) Phencyclidine (PCP) Screen Negative (NEGATIVE) Urine Amphetamines Screen Negative (NEGATIVE) Urine Benzodiazepines Screen Negative (NEGATIVE) Urine Cocaine Screen Negative (NEGATIVE) Urine Marijuana (THC) Screen Negative (NEGATIVE) Current Medications Medications (Trade) Dose Ordered Sig/Debbie Route PRN Reason Start Time Stop Time Status Last Admin Dose Admin Amiodarone HCl (Cordarone) 200 mg DAILY ORAL 04/19/20 09:00 07/18/20 08:59 Amlodipine Besylate (Norvasc) 10 mg DAILY ORAL 04/19/20 09:00 05/19/20 08:59 Bisacodyl (Dulcolax) 10 mg DAILYPRN PRN RECTAL Constipation 04/18/20 14:30 07/17/20 14:29 Dextrose (Dextrose 50%) 25 ml Q30M PRN IV Hypoglycemia 04/18/20 14:30 07/17/20 14:29 Dextrose (Dextrose 50%) 50 ml Q30M PRN IV Hypoglycemia 04/18/20 14:30 07/17/20 14:29 Diltiazem HCl (Cardizem Tab) 90 mg EVERY 8 HOURS ORAL 04/18/20 22:00 05/18/20 21:59 Diphenhydramine HCl (Benadryl) 25 mg Q6H PRN ORAL Itching/Pruritis 04/18/20 14:30 05/18/20 14:29 Docusate Sodium (Colace) 100 mg EVERY 12 HOURS ORAL 04/18/20 21:00 05/18/20 20:59 Doxazosin Mesylate (Cardura) 4 mg DAILY ORAL 04/19/20 09:00 05/19/20 08:59 Duloxetine HCl (Cymbalta) 60 mg BID ORAL 04/18/20 18:00 07/17/20 17:59 04/18/20 17:14 Furosemide (Lasix) 40 mg EVERY 12 HOURS ORAL 04/18/20 21:00 05/18/20 20:59 Gabapentin (Neurontin) 300 mg BEDTIME ORAL 04/18/20 21:00 05/18/20 20:59 Hydralazine HCl (Apresoline) 50 mg Q6HR ORAL 04/18/20 18:00 07/17/20 17:59 04/18/20 17:14 Lorazepam (Ativan 2mg/ml 1ml) 0.5 mg Q4H PRN IV For Anxiety 04/18/20 14:30 04/25/20 14:29 Magnesium Hydroxide (Mom) 30 ml HSPRN PRN ORAL Constipation 04/18/20 14:30 05/18/20 14:29 Methocarbamol (Robaxin) 500 mg QIDPRN PRN ORAL Muscle Spasm 04/18/20 14:30 05/18/20 14:29 Micafungin Sodium 100 mg/Sodium Chloride 110 ml @ 110 mls/hr Q24H IVPB 04/18/20 21:00 04/25/20 20:59 Ondansetron HCl (Zofran) 4 mg Q6H PRN IVP Nausea & Vomiting 04/18/20 14:30 05/18/20 14:29 Oxycodone/ Acetaminophen (Percocet 10/325) 1 tab Q4H PRN ORAL pain 04/18/20 12:45 04/25/20 12:44 04/18/20 16:49 Phosphorus (Phospha 250 Neutral) 250 mg THREE TIMES A DAY ORAL 04/18/20 18:00 05/18/20 17:59 04/18/20 17:14 Polyethylene Glycol (Miralax) 17 gm DAILYPRN PRN ORAL Constipation 04/18/20 14:30 05/18/20 14:29 Polymyxin B Sulfate 811643 units/Dextrose 550 ml @ 550 mls/hr Q12H IV 04/18/20 17:00 04/25/20 16:59 04/18/20 17:14 Rivaroxaban (Xarelto) 15 mg DAILY ORAL 04/19/20 09:00 07/18/20 08:59 Vancomycin HCl (Vanco pharmacy to dose) 1 ea DAILY PRN MISC Per rx protocol 04/18/20 14:45 05/18/20 14:44 Vancomycin/Sodium Chloride 275 ml @ 183.333 mls/hr Q12HR@0600,1800 IVPB 04/18/20 18:00 04/23/20 17:59 04/18/20 18:35 Jose Valdes MD Apr 18, 2020 20:08
[2020-04-18] MEDS: Docusate 100mg cap ORAL SCH (20:29)
[2020-04-18] MEDS: Furosemide 40mg tab ORAL SCH (20:32)
--- NOTE | 2020-04-18 22:04 | Consultation ---
History of Present Illness General Date patient seen: Apr 18, 2020 Time patient seen: 21:55 Chief Complaint: Pain Present Illness HPI 69-year-old female with PMH of A. fib, chronic pain, diverticulitis, HTN, HLD who presents from SNF for uncontrolled chronic pain and A. fib RVR. [facility] she was found to have a HR of 150, patient was sent to the ED was found to be in rapid A. fib RVR, was given diltiazem p.o. and IV with return to regular rate. Of note, patient was recently DC'd from hospital on 04/17 for a long hospitalization due to pneumonia, was tested negative for COVID, and was planned to complete IV ABX treatment of Micagungin, Polymoxin, Vancomyin for 3 more days. Patient currently denies any NAVARRO, vision changes, CP, SOB, abdominal pain, pain around her ostomy bag. Allergies: Coded Allergies: LISINOPRIL (Verified Allergy, Unknown, Hives, 04/12/14) Medication History Scheduled Amiodarone Hcl* (Pacerone*), 200 MG ORAL DAILY Amlodipine Besylate* (Amlodipine Besylate*), 10 MG ORAL DAILY, (Reported) Diltiazem HCl (Diltiazem HCl), 90 MG ORAL EVERY 8 HOURS Docusate Sodium (Docusate Sodium), 100 MG ORAL Q12HR Doxazosin Mesylate* (Doxazosin Mesylate*), 4 MG ORAL DAILY, (Reported) Duloxetine Hcl* (Cymbalta*), 60 MG ORAL BID, (Reported) Furosemide* (Lasix*), 40 MG ORAL EVERY 12 HOURS Gabapentin* (Gabapentin*), 300 MG ORAL BEDTIME, (Reported) Hydralazine HCl (Hydralazine HCl), 50 MG ORAL Q6HR Micafungin Sodium (Micafungin), 100 MG IV yanick Phosphorus (Phospha 250 Neutral Tablet), 250 MG ORAL THREE TIMES A DAY Rivaroxaban (Xarelto), 15 MG ORAL DAILY Simvastatin (Zocor), 10 MG ORAL BEDTIME, (Reported) Scheduled PRN Methocarbamol* (Robaxin-500*), 500 MG ORAL QID PRN Discontinued Medications Baclofen* (Baclofen*), 10 MG ORAL NEEDED, (Reported) Discontinued Reason: Medication dose changed Hydrocodone/Acetaminophen (Hydrocodon-Acetaminophn 10-325), 1 TAB ORAL Q6H PRN for For Pain, (Reported) Discontinued Reason: Pt stopped taking med Metoprolol Tartrate* (Metoprolol Tartrate*), 100 MG ORAL EVERY 12 HOURS, ( Reported) Discontinued Reason: Medication dose changed Polymyxin B Sulfate,Micronized (Polymyxin B Sulfate), 50,000,000 UNIT MC Q12HR Discontinued Reason: Pt stopped taking med Trazodone* (Trazodone*), 200 MG ORAL BEDTIME, (Reported) Discontinued Reason: Pt stopped taking med Vancomycin HCl in Water (Vancomycin 1,500 mg/15Ml-Water), 1.5 GM IV DAILY Discontinued Reason: Pt stopped taking med [Vanco pharmacy to dose], 1 EA MISC DAILY PRN Discontinued Reason: Pt stopped taking med Patient History Healthcare decision maker Resuscitation status Advanced Directive on File Review of Systems Constitutional: Reports: no symptoms Eye: Reports: no symptoms ENT: Reports: no symptoms Respiratory: Reports: no symptoms Cardiovascular: Reports: no symptoms Gastrointestinal: Reports: no symptoms Genitourinary: Reports: no symptoms Musculoskeletal: Reports: no symptoms Skin: Reports: no symptoms Psychiatric: Reports: no symptoms Neurological: Reports: no symptoms Endocrine: Reports: no symptoms Hematologic/Lymphatic: Reports: no symptoms Physical Exam General Appearance: no apparent distress, alert Lines, tubes and drains: peripheral HEENT: normocephalic, atraumatic, anicteric, mucous membranes moist Neck: non-tender, normal alignment, supple Respiratory/Chest: chest wall non-tender, lungs clear Cardiovascular/Chest: normal peripheral pulses, normal rate, regular rhythm Last 24 Hour Vital Signs Date Time Temp Pulse Resp B/P (MAP) Pulse Ox O2 Delivery O2 Flow Rate FiO2 04/18/20 20:00 86 04/18/20 17:19 97.9 04/18/20 17:14 140/73 04/18/20 16:30 97.9 91 20 140/73 (95) 96 04/18/20 16:30 Room Air 04/18/20 16:29 93 04/18/20 16:01 98.5 92 18 152/77 100 Room Air 04/18/20 15:02 98.5 92 18 152/77 100 Room Air 04/18/20 13:11 97.9 115 20 154/70 98 Room Air 04/18/20 13:01 147 132/63 04/18/20 12:46 140 103/60 04/18/20 12:00 97.9 138 19 103/60 96 Room Air 04/18/20 11:51 97.9 140 24 103/60 (74) 94 Laboratory Tests Test 04/18/20 12:40 White Blood Count 4.5 K/UL (4.8-10.8) L Red Blood Count 3.13 M/UL (4.20-5.40) L Hemoglobin 8.0 G/DL (12.0-16.0) L Hematocrit 27.0 % (37.0-47.0) L Mean Corpuscular Volume 86 FL (80-99) Mean Corpuscular Hemoglobin 25.6 PG (27.0-31.0) L Mean Corpuscular Hemoglobin Concent 29.8 G/DL (32.0-36.0) L Red Cell Distribution Width 16.4 % (11.6-14.8) H Platelet Count 451 K/UL (150-450) H Mean Platelet Volume 6.1 FL (6.5-10.1) L Neutrophils (%) (Auto) 64.6 % (45.0-75.0) Lymphocytes (%) (Auto) 20.9 % (20.0-45.0) Monocytes (%) (Auto) 11.6 % (1.0-10.0) H Eosinophils (%) (Auto) 1.9 % (0.0-3.0) Basophils (%) (Auto) 1.0 % (0.0-2.0) Prothrombin Time 13.1 SEC (9.30-11.50) H Prothromb Time International Ratio 1.2 (0.9-1.1) H Activated Partial Thromboplast Time 35 SEC (23-33) H Urine Color Pale yellow Urine Appearance Clear Urine pH 8 (4.5-8.0) Urine Specific [place] 1.010 (1.005-1.035) Urine Protein Negative (NEGATIVE) Urine Glucose (UA) Negative (NEGATIVE) Urine Ketones Negative (NEGATIVE) Urine Blood 4+ (NEGATIVE) H Urine Nitrite Negative (NEGATIVE) Urine Bilirubin Negative (NEGATIVE) Urine Urobilinogen Normal MG/DL (0.0-1.0) Urine Leukocyte Esterase Negative (NEGATIVE) Urine RBC 40-60 /HPF (0 - 2) H Urine WBC 0-2 /HPF (0 - 2) Urine Squamous Epithelial Cells Occasional /LPF Urine Bacteria Occasional /HPF (NONE) Sodium Level 143 MMOL/L (136-145) Potassium Level 3.0 MMOL/L (3.5-5.1) L Chloride Level 106 MMOL/L (98-107) Carbon Dioxide Level 27 MMOL/L (21-32) Anion Gap 10 mmol/L (5-15) Blood Urea Nitrogen 9 mg/dL (7-18) Creatinine 1.0 MG/DL (0.55-1.30) Estimat Glomerular Filtration Rate > 60 mL/min (>60) Glucose Level 99 MG/DL (74-106) Calcium Level 8.3 MG/DL (8.5-10.1) L Phosphorus Level 3.6 MG/DL (2.5-4.9) Magnesium Level 1.2 MG/DL (1.8-2.4) L Total Bilirubin 0.2 MG/DL (0.2-1.0) Aspartate Amino Transf (AST/SGOT) 20 U/L (15-37) Alanine Aminotransferase (ALT/SGPT) < 6 U/L (12-78) L Alkaline Phosphatase 86 U/L (46-116) Troponin I 0.012 ng/mL (0.000-0.056) Pro-B-Type Natriuretic Peptide 2346 pg/mL (0-125) H Total Protein 6.2 G/DL (6.4-8.2) L Albumin 1.6 G/DL (3.4-5.0) L Globulin 4.6 g/dL Albumin/Globulin Ratio 0.3 (1.0-2.7) L Urine Opiates Screen Positive (NEGATIVE) H Urine Barbiturates Screen Negative (NEGATIVE) Phencyclidine (PCP) Screen Negative (NEGATIVE) Urine Amphetamines Screen Negative (NEGATIVE) Urine Benzodiazepines Screen Negative (NEGATIVE) Urine Cocaine Screen Negative (NEGATIVE) Urine Marijuana (THC) Screen Negative (NEGATIVE) Microbiology Date/Time Source Procedure Growth Status 04/18/20 14:50 Rectum Received Height (Feet): 5 Height (Inches): 10.00 Weight (Pounds): 200 Medications Current Medications Medications (Trade) Dose Ordered Sig/Debbie Route PRN Reason Start Time Stop Time Status Last Admin Dose Admin Amiodarone HCl (Cordarone) 200 mg DAILY ORAL 04/19/20 09:00 07/18/20 08:59 Amlodipine Besylate (Norvasc) 10 mg DAILY ORAL 04/19/20 09:00 05/19/20 08:59 Bisacodyl (Dulcolax) 10 mg DAILYPRN PRN RECTAL Constipation 04/18/20 14:30 07/17/20 14:29 Dextrose (Dextrose 50%) 25 ml Q30M PRN IV Hypoglycemia 04/18/20 14:30 07/17/20 14:29 Dextrose (Dextrose 50%) 50 ml Q30M PRN IV Hypoglycemia 04/18/20 14:30 07/17/20 14:29 Diltiazem HCl (Cardizem Tab) 90 mg EVERY 8 HOURS ORAL 04/18/20 22:00 05/18/20 21:59 Diphenhydramine HCl (Benadryl) 25 mg Q6H PRN ORAL Itching/Pruritis 04/18/20 14:30 05/18/20 14:29 Docusate Sodium (Colace) 100 mg EVERY 12 HOURS ORAL 04/18/20 21:00 05/18/20 20:59 Doxazosin Mesylate (Cardura) 4 mg DAILY ORAL 04/19/20 09:00 05/19/20 08:59 Duloxetine HCl (Cymbalta) 60 mg BID ORAL 04/18/20 18:00 07/17/20 17:59 04/18/20 17:14 Furosemide (Lasix) 40 mg EVERY 12 HOURS ORAL 04/18/20 21:00 05/18/20 20:59 04/18/20 20:32 Gabapentin (Neurontin) 300 mg BEDTIME ORAL 04/18/20 21:00 05/18/20 20:59 04/18/20 20:31 Hydralazine HCl (Apresoline) 50 mg Q6HR ORAL 04/18/20 18:00 07/17/20 17:59 04/18/20 17:14 Lorazepam (Ativan 2mg/ml 1ml) 0.5 mg Q4H PRN IV For Anxiety 04/18/20 14:30 04/25/20 14:29 Magnesium Hydroxide (Mom) 30 ml HSPRN PRN ORAL Constipation 04/18/20 14:30 05/18/20 14:29 Methocarbamol (Robaxin) 500 mg QIDPRN PRN ORAL Muscle Spasm 04/18/20 14:30 05/18/20 14:29 Micafungin Sodium 100 mg/Sodium Chloride 110 ml @ 110 mls/hr Q24H IVPB 04/18/20 21:00 04/25/20 20:59 Ondansetron HCl (Zofran) 4 mg Q6H PRN IVP Nausea & Vomiting 04/18/20 14:30 05/18/20 14:29 Oxycodone/ Acetaminophen (Percocet 10/325) 1 tab Q4H PRN ORAL pain 04/18/20 12:45 04/25/20 12:44 04/18/20 16:49 Phosphorus (Phospha 250 Neutral) 250 mg THREE TIMES A DAY ORAL 04/18/20 18:00 05/18/20 17:59 04/18/20 17:14 Polyethylene Glycol (Miralax) 17 gm DAILYPRN PRN ORAL Constipation 04/18/20 14:30 05/18/20 14:29 Polymyxin B Sulfate 338239 units/Dextrose 550 ml @ 550 mls/hr Q12H IV 04/18/20 17:00 04/25/20 16:59 04/18/20 17:14 Rivaroxaban (Xarelto) 15 mg DAILY ORAL 04/19/20 09:00 07/18/20 08:59 Vancomycin HCl (Vanco pharmacy to dose) 1 ea DAILY PRN MISC Per rx protocol 04/18/20 14:45 05/18/20 14:44 Vancomycin/Sodium Chloride 275 ml @ 183.333 mls/hr Q12HR@0600,1800 IVPB 04/18/20 18:00 04/23/20 17:59 04/18/20 18:35 Assessment/Plan Status: stable Assessment/Plan: Assessment/Plan Assessment/Plan: 69-year-old female with PMH of A. fib, chronic pain, diverticulitis, HTN, HLD who presents from SNF for uncontrolled chronic pain and A. fib RVR. AFIB Hypokalemia Pleural effusion HTN HLD Recommendations: -Converted to NSR -Continue PO amiodarone -Continue cardizem -Continue xarelto -Previous stress test not tolerated -CV status Rafat Crooks MD Apr 18, 2020 22:04
[2020-04-18] MEDS: dilTIAZem HCl 90mg tab ORAL SCH (22:07)
[2020-04-18] MEDS: Micafungin 100 MG in NS 110 ML IVPB SCH (22:08)
[2020-04-19] VITALS (7 sets, daily range): BP systolic 97–144; BP diastolic 54–76
[2020-04-19] MEDS: HydrALAZINE 50mg tab ORAL SCH ×5 (00:32→23:46)
[2020-04-19] MEDS: Polymyxin B Sulfate 500,000 UNITS in D5W 500ml 550 ML IV SCH ×2 (05:24→18:33)
[2020-04-19] MEDS: dilTIAZem HCl 90mg tab ORAL SCH ×3 (06:05→23:46)
[2020-04-19] MEDS: Vancomycin 1.25gm/NS Premix q24h IVPB SCH ×2 (06:05→18:32)
[2020-04-19 06:10] LABS: HEMATOCRIT 22.7 % (37.0-47.0); MEAN CORPUSCULAR VOLUME 87 FL (80-99); PLATELET COUNT 403 K/UL (150-450); RED BLOOD COUNT 2.62 M/UL (4.20-5.40); RED CELL DISTRIBUTION WIDTH 16.6 % (11.6-14.8); WHITE BLOOD COUNT 4.1 K/UL (4.8-10.8)
[2020-04-19 06:36] LABS: ANION GAP 8 mmol/L (5-15); BLOOD UREA NITROGEN 8 mg/dL (7-18); CALCIUM 8.1 MG/DL (8.5-10.1); CARBON DIOXIDE 29 MMOL/L (21-32); CHLORIDE 104 MMOL/L (98-107); POTASSIUM 3.2 MMOL/L (3.5-5.1); SODIUM 141 MMOL/L (136-145)
[2020-04-19 06:44] LABS: HEMOGLOBIN 6.8 G/DL (12.0-16.0)
--- NOTE | 2020-04-19 06:47 | NUR ---
NURSE NOTES: Lab called with hemoglobin results, 6.8 , CN and MD were made aware, will have am shift RN to follow up
--- NOTE | 2020-04-19 07:31 | NUR ---
NURSE NOTES: Received new order from Dr Cochran, transfuse 1 unit of PRBC, schedule CBC 30 min after transfusion, endorsed new orders to am nurse.
--- NOTE | 2020-04-19 07:32 | NUR ---
HAND-OFF: Report given to Edda ARCOS.
--- NOTE | 2020-04-19 07:58 | NUR ---
NURSE NOTES: pt in bed AOx4. pt will be receiving blood transfusion later on. Pt on monitor and storage bin tender, no signs of cardiac or respiratory distress at this time. Bed is locked and in lowest position, call light within reach. Bed alarm on, side rails up x2. Pt is in pain 8/10, will give meds. Will continue to monitor
--- NOTE | 2020-04-19 08:32 | General Progress Note ---
Assessment/Plan Status: stable Assessment/Plan: 69-year-old female with PMH of A. fib, chronic pain, diverticulitis, HTN, HLD who presents from SNF for uncontrolled chronic pain and A. fib RVR. #Afib w/ RVR - resolved -cont medical care on tele -likely 2/2 uncontrolled pain and electrolyte abnormality -s/p diltiazem PO and IV in ED, now rate controlled -cont home amiodarone, cardizem, Xarelto -Cardio, Dr. Crooks, consulted, recs appreciated -EP, Dr. Scott, consulted, recs appreciated #Hypokalemia #Hypomagnesemia -replaced, ctm -replace PRN #Left Plueral Effusion -CXR on admission w/slight increased left pleural effusion -pt w/no conversational dyspnea, lungs CTAB, ctm at this time -Puln, Dr. Cordova consulted #Hx Sepsis, HCAP/UTI, + ESBL -Sputum w/ multiple MDR organisms, now requiring aggressive AB -cont Micagungin, Polymoxin, Vancomyin for 3 more days -ID consulted, recs appreciated #Iron Deficiency Anemia #Hx of FOBT + -s/p EGD/colon on 04/16 showing gastritis, ulcers near ostomy bag likely ischemic , biopsies obtained, follow-up pathology -Hemoglobin stable -ctm Hgb, transfuse for hgb <7 -transfuse 1 U PRBC today -d/w GI, Dr. Boyd, and Heme, Dr Wray, recs appreciated #Chronic Pain -Continue Robaxin for spasms -Cont Percocet PRN -morphine for breakthrough pain #Seizure vs prolonged period of immobility #S/P Acute metabolic Encephalopathy -cont home meds #Hx of Colectomy w/ Colostomy -wound care DVT ppx: Xarelto --> hold given acute anemia, SCDs Full Code I spent 38 mins on this encounter w/ 31 min on care/coordination and pt counseling. D/w Rn, Dr. Crooks, Dr. Iglesias, Pt's PCP, Dr. Montes and Dr. Boyd. Time spent may not reflect in note. Subjective Allergies: Coded Allergies: LISINOPRIL (Verified Allergy, Unknown, Hives, 04/12/14) Subjective No acute events overnight, patient denies any tachycardia/palpitations at this time. Patient notes she feels generalized weakness, denies any F/C, N/V. Hgb this a.m. 6.8, 1 U PRBC ordered. No signs of bleeding per nurse overnight. Objective Last 24 Hour Vital Signs Date Time Temp Pulse Resp B/P (MAP) Pulse Ox O2 Delivery O2 Flow Rate FiO2 04/19/20 08:22 97.7 91 18 144/74 (97) 96 04/19/20 06:05 139/74 04/19/20 06:05 78 139/74 04/19/20 04:09 98.0 04/19/20 04:00 97.8 96 19 135/62 (86) 99 04/19/20 04:00 97 04/19/20 00:32 139/74 04/19/20 00:00 98.0 78 20 134/70 (91) 98 04/19/20 00:00 90 04/18/20 22:07 78 139/74 04/18/20 21:00 Room Air 04/18/20 20:00 86 04/18/20 20:00 97.7 85 20 125/63 (83) 99 04/18/20 17:14 140/73 04/18/20 16:30 97.9 91 20 140/73 (95) 96 04/18/20 16:30 Room Air 04/18/20 16:29 93 04/18/20 16:01 98.5 92 18 152/77 100 Room Air 04/18/20 15:02 98.5 92 18 152/77 100 Room Air 04/18/20 13:11 97.9 115 20 154/70 98 Room Air 04/18/20 13:01 147 132/63 04/18/20 12:46 140 103/60 04/18/20 12:00 97.9 138 19 103/60 96 Room Air 04/18/20 11:51 97.9 140 24 103/60 (74) 94 Intake and Output 04/18/20 04/19/20 19:00 07:00 Intake Total 868 ml 283.333 ml Output Total 350 ml Balance 518 ml 283.333 ml Intake Oral 118 ml IV Total 750 ml 283.333 ml Output Urine Total 350 ml # Voids 2 # Bowel Movements 1 1 Laboratory Tests 04/18/20 12:40: White Blood Count 4.5L, Red Blood Count 3.13L, Hemoglobin 8.0L, Hematocrit 27.0L , Mean Corpuscular Volume 86, Mean Corpuscular Hemoglobin 25.6L, Mean Corpuscular Hemoglobin Concent 29.8L, Red Cell Distribution Width 16.4H, Platelet Count 451H, Mean Platelet Volume 6.1L, Neutrophils (%) (Auto) 64.6, Lymphocytes (%) (Auto) 20.9, Monocytes (%) (Auto) 11.6H, Eosinophils (%) (Auto) 1.9, Basophils (%) (Auto) 1.0, Prothrombin Time 13.1H, Prothromb Time International Ratio 1.2H, Activated Partial Thromboplast Time 35H, Urine Color Pale yellow, Urine Appearance Clear, Urine pH 8, Urine Specific [place] 1.010, Urine Protein Negative, Urine Glucose (UA) Negative, Urine Ketones Negative, Urine Blood 4+H, Urine Nitrite Negative, Urine Bilirubin Negative, Urine Urobilinogen Normal, Urine Leukocyte Esterase Negative, Urine RBC 40-60H, Urine WBC 0-2, Urine Squamous Epithelial Cells Occasional, Urine Bacteria Occasional, Sodium Level 143, Potassium Level 3.0L, Chloride Level 106, Carbon Dioxide Level 27, Anion Gap 10, Blood Urea Nitrogen 9, Creatinine 1.0, Estimat Glomerular Filtration Rate > 60, Glucose Level 99, Calcium Level 8.3L, Phosphorus Level 3.6, Magnesium Level 1.2L, Total Bilirubin 0.2, Aspartate Amino Transf (AST/SGOT) 20, Alanine Aminotransferase (ALT/SGPT) < 6L, Alkaline Phosphatase 86, Troponin I 0.012, Pro-B-Type Natriuretic Peptide 2346H, Total Protein 6.2L, Albumin 1.6L, Globulin 4.6, Albumin/Globulin Ratio 0.3L, Urine Opiates Screen PositiveH, Urine Barbiturates Screen Negative, Phencyclidine (PCP ) Screen Negative, Urine Amphetamines Screen Negative, Urine Benzodiazepines Screen Negative, Urine Cocaine Screen Negative, Urine Marijuana (THC) Screen Negative 04/19/20 05:00: White Blood Count 4.1L, Red Blood Count 2.62L, Hemoglobin 6.8*L, Hematocrit 22.7L, Mean Corpuscular Volume 87, Mean Corpuscular Hemoglobin 25.9L, Mean Corpuscular Hemoglobin Concent 29.9L, Red Cell Distribution Width 16.6H, Platelet Count 403, Mean Platelet Volume 6.3L, Neutrophils (%) (Auto) , Lymphocytes (%) (Auto) , Monocytes (%) (Auto) , Eosinophils (%) (Auto) , Basophils (%) (Auto) , Sodium Level 141, Potassium Level 3.2L, Chloride Level 104, Carbon Dioxide Level 29, Anion Gap 8, Blood Urea Nitrogen 8, Creatinine 1.0 , Estimat Glomerular Filtration Rate > 60, Glucose Level 95, Calcium Level 8.1L , Magnesium Level 1.9, Neutrophils % (Manual) [Pending], Lymphocytes % (Manual) [Pending], Platelet Estimate [Pending], Platelet Morphology [Pending] Height (Feet): 5 Height (Inches): 10.00 Weight (Pounds): 200 Objective General: NAD, A&O x 3 HEENT: NCAT, EOMi, MMM CV: RRR, no murmurs, rubs, or gallops Pulm: CTAB, No wheezes, rhonchi, or rales, no accessory muscle usage or conversational dyspnea GI: Soft, nontender, nondistended, bowel sounds present, ostomy C/D/I with gas and stool present Ext: No lower extremity edema bilaterally Skin: no rashes lesions, normal turgor Delphine Cochran M.D. Apr 19, 2020 08:32
--- NOTE | 2020-04-19 08:41 | Surgery Progress Note ---
Surgery Progress Note Subjective Additional Comments h/h drop anemia transfused prbc no n/v/f/c comfortable no active bleeding noted Objective Last 24 Hour Vital Signs Date Time Temp Pulse Resp B/P (MAP) Pulse Ox O2 Delivery O2 Flow Rate FiO2 04/19/20 08:22 97.7 91 18 144/74 (97) 96 04/19/20 06:05 139/74 04/19/20 06:05 78 139/74 04/19/20 04:09 98.0 04/19/20 04:00 97.8 96 19 135/62 (86) 99 04/19/20 04:00 97 04/19/20 00:32 139/74 04/19/20 00:00 98.0 78 20 134/70 (91) 98 04/19/20 00:00 90 04/18/20 22:07 78 139/74 04/18/20 21:00 Room Air 04/18/20 20:00 86 04/18/20 20:00 97.7 85 20 125/63 (83) 99 04/18/20 17:14 140/73 04/18/20 16:30 97.9 91 20 140/73 (95) 96 04/18/20 16:30 Room Air 04/18/20 16:29 93 04/18/20 16:01 98.5 92 18 152/77 100 Room Air 04/18/20 15:02 98.5 92 18 152/77 100 Room Air 04/18/20 13:11 97.9 115 20 154/70 98 Room Air 04/18/20 13:01 147 132/63 04/18/20 12:46 140 103/60 04/18/20 12:00 97.9 138 19 103/60 96 Room Air 04/18/20 11:51 97.9 140 24 103/60 (74) 94 I&O Intake and Output 04/18/20 04/19/20 19:00 07:00 Intake Total 868 ml 283.333 ml Output Total 350 ml Balance 518 ml 283.333 ml Intake Oral 118 ml IV Total 750 ml 283.333 ml Output Urine Total 350 ml # Voids 2 # Bowel Movements 1 1 Dressing: dry Wound: clean Cardiovascular: RSR Respiratory: clear Abdomen: soft, non-tender, present bowel sounds Extremities: no cyanosis Laboratory Tests Test 04/18/20 12:40 04/19/20 05:00 White Blood Count 4.5 K/UL (4.8-10.8) L 4.1 K/UL (4.8-10.8) L Red Blood Count 3.13 M/UL (4.20-5.40) L 2.62 M/UL (4.20-5.40) L Hemoglobin 8.0 G/DL (12.0-16.0) L 6.8 G/DL (12.0-16.0) *L Hematocrit 27.0 % (37.0-47.0) L 22.7 % (37.0-47.0) L Mean Corpuscular Volume 86 FL (80-99) 87 FL (80-99) Mean Corpuscular Hemoglobin 25.6 PG (27.0-31.0) L 25.9 PG (27.0-31.0) L Mean Corpuscular Hemoglobin Concent 29.8 G/DL (32.0-36.0) L 29.9 G/DL (32.0-36.0) L Red Cell Distribution Width 16.4 % (11.6-14.8) H 16.6 % (11.6-14.8) H Platelet Count 451 K/UL (150-450) H 403 K/UL (150-450) Mean Platelet Volume 6.1 FL (6.5-10.1) L 6.3 FL (6.5-10.1) L Neutrophils (%) (Auto) 64.6 % (45.0-75.0) % (45.0-75.0) Lymphocytes (%) (Auto) 20.9 % (20.0-45.0) % (20.0-45.0) Monocytes (%) (Auto) 11.6 % (1.0-10.0) H % (1.0-10.0) Eosinophils (%) (Auto) 1.9 % (0.0-3.0) % (0.0-3.0) Basophils (%) (Auto) 1.0 % (0.0-2.0) % (0.0-2.0) Prothrombin Time 13.1 SEC (9.30-11.50) H Prothromb Time International Ratio 1.2 (0.9-1.1) H Activated Partial Thromboplast Time 35 SEC (23-33) H Urine Color Pale yellow Urine Appearance Clear Urine pH 8 (4.5-8.0) Urine Specific [place] 1.010 (1.005-1.035) Urine Protein Negative (NEGATIVE) Urine Glucose (UA) Negative (NEGATIVE) Urine Ketones Negative (NEGATIVE) Urine Blood 4+ (NEGATIVE) H Urine Nitrite Negative (NEGATIVE) Urine Bilirubin Negative (NEGATIVE) Urine Urobilinogen Normal MG/DL (0.0-1.0) Urine Leukocyte Esterase Negative (NEGATIVE) Urine RBC 40-60 /HPF (0 - 2) H Urine WBC 0-2 /HPF (0 - 2) Urine Squamous Epithelial Cells Occasional /LPF Urine Bacteria Occasional /HPF (NONE) Sodium Level 143 MMOL/L (136-145) 141 MMOL/L (136-145) Potassium Level 3.0 MMOL/L (3.5-5.1) L 3.2 MMOL/L (3.5-5.1) L Chloride Level 106 MMOL/L (98-107) 104 MMOL/L (98-107) Carbon Dioxide Level 27 MMOL/L (21-32) 29 MMOL/L (21-32) Anion Gap 10 mmol/L (5-15) 8 mmol/L (5-15) Blood Urea Nitrogen 9 mg/dL (7-18) 8 mg/dL (7-18) Creatinine 1.0 MG/DL (0.55-1.30) 1.0 MG/DL (0.55-1.30) Estimat Glomerular Filtration Rate > 60 mL/min (>60) > 60 mL/min (>60) Glucose Level 99 MG/DL (74-106) 95 MG/DL (74-106) Calcium Level 8.3 MG/DL (8.5-10.1) L 8.1 MG/DL (8.5-10.1) L Phosphorus Level 3.6 MG/DL (2.5-4.9) Magnesium Level 1.2 MG/DL (1.8-2.4) L 1.9 MG/DL (1.8-2.4) Total Bilirubin 0.2 MG/DL (0.2-1.0) Aspartate Amino Transf (AST/SGOT) 20 U/L (15-37) Alanine Aminotransferase (ALT/SGPT) < 6 U/L (12-78) L Alkaline Phosphatase 86 U/L (46-116) Troponin I 0.012 ng/mL (0.000-0.056) Pro-B-Type Natriuretic Peptide 2346 pg/mL (0-125) H Total Protein 6.2 G/DL (6.4-8.2) L Albumin 1.6 G/DL (3.4-5.0) L Globulin 4.6 g/dL Albumin/Globulin Ratio 0.3 (1.0-2.7) L Urine Opiates Screen Positive (NEGATIVE) H Urine Barbiturates Screen Negative (NEGATIVE) Phencyclidine (PCP) Screen Negative (NEGATIVE) Urine Amphetamines Screen Negative (NEGATIVE) Urine Benzodiazepines Screen Negative (NEGATIVE) Urine Cocaine Screen Negative (NEGATIVE) Urine Marijuana (THC) Screen Negative (NEGATIVE) Neutrophils % (Manual) Pending Lymphocytes % (Manual) Pending Platelet Estimate Pending Platelet Morphology Pending Plan Problems: (1) Atrial flutter Assessment & Plan: Assessment/Plan: (1) Atrial flutter (2) Hypertension (3) Acute encephalopathy (4) VENTURA (acute kidney injury) (5) Acute and chronic respiratory failure with hypoxia (6) Abscess (7) Fistula (8) Sciatica neuralgia (9) Uncontrolled seizures (10) Forgetfulness (11) Sacral decubitus ulcer Assessment & Plan: Patient identified to have a sacral deep tissue injury upon admission air mattress prior and will order while in admission Care plan initiated (12) Chronic back pain (13) Overdose of opiate or related narcotic (14) Cellulitis of left leg (15) Pericolonic abscess due to diverticulitis (16) Ventral incisional hernia Assessment & Plan: History of colon resection colostomy Ventral incisional hernia reducible No acute invention monitor parastomal hernia stable ostomy viable and functional no acute intervention planned unlikely etiology of pain (17) Chronic pain of both knees (18) Dehydration (19) Hyperkalemia (20) Sepsis Assessment & Plan: Patient reports not liking current diet texture of Moist Puree with Thin Liquids. Patient completed PO intake of solids (crackers), Patient's swallow is grossly functional. Plan: 1. Upgrade Diet Texture to Soft Solids and continue Thin Liquids; type/ supplements per RD. 2. Nursing to assist Patient with oral care BID. DAILY ESTIMATED NEEDS: Needs based on Pulmonary, sepsis, wound, VENTUAR 75.8kg adj 20-30 kcals/kg 5490-2286 total kcals 1.25-1.5 g protein/kg 94-114 g total protein 25-30 mL/kg 2174-2980 total fluid mLs NUTRITION DIAGNOSIS: Swallowing difficulty r/t respiratory status as evidenced by pt orally intubated, on NGT feeds-> now extubated, pending VEGETABLE TIER eval. PO DIET RECOMMENDATIONS-->>> Cardiac diet / texture per VEGETABLE TIER ENTERAL NUTRITION RECOMMENDATIONS: VITAL AF 1.2 @55ml/hr x24 hrs to provide 1320ml, 1584 kcal, 99g pro, 1071ml free H2O - Maintain at goal as tolerated if not cleared for oral diet by VEGETABLE TIER - Flush per MD/ HOB over 30 degree ADDITIONAL RECOMMENDATIONS: 1) Maintain calibrated bed scale wts (248lbs vs 217lbs last adm) 2) Monitor renal fxn and lytes closely, need for renal formula Creat wnl; lytes low (K,phos,mg) 3) Wound healing: ZnSO4 220mg QD x 10 days+ Boris BID via NGT hold vit C until renal fxn improves 4) NISS w/ TF, h/o DM 5) Monitor po intake if cleared for oral diet; need for snacks/supplements Julian Iglesias Apr 19, 2020 08:41
[2020-04-19] MEDS: Furosemide 40mg tab ORAL SCH ×2 (08:46→21:30)
[2020-04-19] MEDS: Docusate 100mg cap ORAL SCH ×3 (08:47→21:00)
[2020-04-19] MEDS: DULoxetine 30mg cap ORAL SCH (08:49)
[2020-04-19] MEDS: Phospha 250 Neutral tab ORAL SCH ×3 (08:49→18:00)
[2020-04-19] MEDS: Doxazosin 4mg tab ORAL SCH (08:50)
--- NOTE | 2020-04-19 08:54 | Consultation ---
History of Present Illness General Chief Complaint: Pain Present Illness Allergies: Coded Allergies: LISINOPRIL (Verified Allergy, Unknown, Hives, 04/12/14) Medication History Scheduled Amiodarone Hcl* (Pacerone*), 200 MG ORAL DAILY Amlodipine Besylate* (Amlodipine Besylate*), 10 MG ORAL DAILY, (Reported) Diltiazem HCl (Diltiazem HCl), 90 MG ORAL EVERY 8 HOURS Docusate Sodium (Docusate Sodium), 100 MG ORAL Q12HR Doxazosin Mesylate* (Doxazosin Mesylate*), 4 MG ORAL DAILY, (Reported) Duloxetine Hcl* (Cymbalta*), 60 MG ORAL BID, (Reported) Furosemide* (Lasix*), 40 MG ORAL EVERY 12 HOURS Gabapentin* (Gabapentin*), 300 MG ORAL BEDTIME, (Reported) Hydralazine HCl (Hydralazine HCl), 50 MG ORAL Q6HR Micafungin Sodium (Micafungin), 100 MG IV yanick Phosphorus (Phospha 250 Neutral Tablet), 250 MG ORAL THREE TIMES A DAY Rivaroxaban (Xarelto), 15 MG ORAL DAILY Simvastatin (Zocor), 10 MG ORAL BEDTIME, (Reported) Scheduled PRN Methocarbamol* (Robaxin-500*), 500 MG ORAL QID PRN Discontinued Medications Baclofen* (Baclofen*), 10 MG ORAL NEEDED, (Reported) Discontinued Reason: Medication dose changed Hydrocodone/Acetaminophen (Hydrocodon-Acetaminophn 10-325), 1 TAB ORAL Q6H PRN for For Pain, (Reported) Discontinued Reason: Pt stopped taking med Metoprolol Tartrate* (Metoprolol Tartrate*), 100 MG ORAL EVERY 12 HOURS, ( Reported) Discontinued Reason: Medication dose changed Polymyxin B Sulfate,Micronized (Polymyxin B Sulfate), 50,000,000 UNIT MC Q12HR Discontinued Reason: Pt stopped taking med Trazodone* (Trazodone*), 200 MG ORAL BEDTIME, (Reported) Discontinued Reason: Pt stopped taking med Vancomycin HCl in Water (Vancomycin 1,500 mg/15Ml-Water), 1.5 GM IV DAILY Discontinued Reason: Pt stopped taking med [Vanco pharmacy to dose], 1 EA MISC DAILY PRN Discontinued Reason: Pt stopped taking med Patient History Healthcare decision maker Resuscitation status Advanced Directive on File Physical Exam Last 24 Hour Vital Signs Date Time Temp Pulse Resp B/P (MAP) Pulse Ox O2 Delivery O2 Flow Rate FiO2 04/19/20 08:48 91 144/74 04/19/20 08:22 97.7 91 18 144/74 (97) 96 04/19/20 06:05 139/74 04/19/20 06:05 78 139/74 04/19/20 04:09 98.0 04/19/20 04:00 97.8 96 19 135/62 (86) 99 04/19/20 04:00 97 04/19/20 00:32 139/74 04/19/20 00:00 98.0 78 20 134/70 (91) 98 04/19/20 00:00 90 04/18/20 22:07 78 139/74 04/18/20 21:00 Room Air 04/18/20 20:00 86 04/18/20 20:00 97.7 85 20 125/63 (83) 99 04/18/20 17:14 140/73 04/18/20 16:30 97.9 91 20 140/73 (95) 96 04/18/20 16:30 Room Air 04/18/20 16:29 93 04/18/20 16:01 98.5 92 18 152/77 100 Room Air 04/18/20 15:02 98.5 92 18 152/77 100 Room Air 04/18/20 13:11 97.9 115 20 154/70 98 Room Air 04/18/20 13:01 147 132/63 04/18/20 12:46 140 103/60 04/18/20 12:00 97.9 138 19 103/60 96 Room Air 04/18/20 11:51 97.9 140 24 103/60 (74) 94 Intake and Output 04/18/20 04/19/20 19:00 07:00 Intake Total 868 ml 283.333 ml Output Total 350 ml Balance 518 ml 283.333 ml Intake Oral 118 ml IV Total 750 ml 283.333 ml Output Urine Total 350 ml # Voids 2 # Bowel Movements 1 1 Laboratory Tests Test 04/18/20 12:40 04/19/20 05:00 White Blood Count 4.5 K/UL (4.8-10.8) L 4.1 K/UL (4.8-10.8) L Red Blood Count 3.13 M/UL (4.20-5.40) L 2.62 M/UL (4.20-5.40) L Hemoglobin 8.0 G/DL (12.0-16.0) L 6.8 G/DL (12.0-16.0) *L Hematocrit 27.0 % (37.0-47.0) L 22.7 % (37.0-47.0) L Mean Corpuscular Volume 86 FL (80-99) 87 FL (80-99) Mean Corpuscular Hemoglobin 25.6 PG (27.0-31.0) L 25.9 PG (27.0-31.0) L Mean Corpuscular Hemoglobin Concent 29.8 G/DL (32.0-36.0) L 29.9 G/DL (32.0-36.0) L Red Cell Distribution Width 16.4 % (11.6-14.8) H 16.6 % (11.6-14.8) H Platelet Count 451 K/UL (150-450) H 403 K/UL (150-450) Mean Platelet Volume 6.1 FL (6.5-10.1) L 6.3 FL (6.5-10.1) L Neutrophils (%) (Auto) 64.6 % (45.0-75.0) % (45.0-75.0) Lymphocytes (%) (Auto) 20.9 % (20.0-45.0) % (20.0-45.0) Monocytes (%) (Auto) 11.6 % (1.0-10.0) H % (1.0-10.0) Eosinophils (%) (Auto) 1.9 % (0.0-3.0) % (0.0-3.0) Basophils (%) (Auto) 1.0 % (0.0-2.0) % (0.0-2.0) Prothrombin Time 13.1 SEC (9.30-11.50) H Prothromb Time International Ratio 1.2 (0.9-1.1) H Activated Partial Thromboplast Time 35 SEC (23-33) H Urine Color Pale yellow Urine Appearance Clear Urine pH 8 (4.5-8.0) Urine Specific [place] 1.010 (1.005-1.035) Urine Protein Negative (NEGATIVE) Urine Glucose (UA) Negative (NEGATIVE) Urine Ketones Negative (NEGATIVE) Urine Blood 4+ (NEGATIVE) H Urine Nitrite Negative (NEGATIVE) Urine Bilirubin Negative (NEGATIVE) Urine Urobilinogen Normal MG/DL (0.0-1.0) Urine Leukocyte Esterase Negative (NEGATIVE) Urine RBC 40-60 /HPF (0 - 2) H Urine WBC 0-2 /HPF (0 - 2) Urine Squamous Epithelial Cells Occasional /LPF Urine Bacteria Occasional /HPF (NONE) Sodium Level 143 MMOL/L (136-145) 141 MMOL/L (136-145) Potassium Level 3.0 MMOL/L (3.5-5.1) L 3.2 MMOL/L (3.5-5.1) L Chloride Level 106 MMOL/L (98-107) 104 MMOL/L (98-107) Carbon Dioxide Level 27 MMOL/L (21-32) 29 MMOL/L (21-32) Anion Gap 10 mmol/L (5-15) 8 mmol/L (5-15) Blood Urea Nitrogen 9 mg/dL (7-18) 8 mg/dL (7-18) Creatinine 1.0 MG/DL (0.55-1.30) 1.0 MG/DL (0.55-1.30) Estimat Glomerular Filtration Rate > 60 mL/min (>60) > 60 mL/min (>60) Glucose Level 99 MG/DL (74-106) 95 MG/DL (74-106) Calcium Level 8.3 MG/DL (8.5-10.1) L 8.1 MG/DL (8.5-10.1) L Phosphorus Level 3.6 MG/DL (2.5-4.9) Magnesium Level 1.2 MG/DL (1.8-2.4) L 1.9 MG/DL (1.8-2.4) Total Bilirubin 0.2 MG/DL (0.2-1.0) Aspartate Amino Transf (AST/SGOT) 20 U/L (15-37) Alanine Aminotransferase (ALT/SGPT) < 6 U/L (12-78) L Alkaline Phosphatase 86 U/L (46-116) Troponin I 0.012 ng/mL (0.000-0.056) Pro-B-Type Natriuretic Peptide 2346 pg/mL (0-125) H Total Protein 6.2 G/DL (6.4-8.2) L Albumin 1.6 G/DL (3.4-5.0) L Globulin 4.6 g/dL Albumin/Globulin Ratio 0.3 (1.0-2.7) L Urine Opiates Screen Positive (NEGATIVE) H Urine Barbiturates Screen Negative (NEGATIVE) Phencyclidine (PCP) Screen Negative (NEGATIVE) Urine Amphetamines Screen Negative (NEGATIVE) Urine Benzodiazepines Screen Negative (NEGATIVE) Urine Cocaine Screen Negative (NEGATIVE) Urine Marijuana (THC) Screen Negative (NEGATIVE) Neutrophils % (Manual) Pending Lymphocytes % (Manual) Pending Platelet Estimate Pending Platelet Morphology Pending Microbiology Date/Time Source Procedure Growth Status 04/18/20 14:50 Rectum Received Height (Feet): 5 Height (Inches): 10.00 Weight (Pounds): 200 Medications Current Medications Medications (Trade) Dose Ordered Sig/Debbie Route PRN Reason Start Time Stop Time Status Last Admin Dose Admin Amiodarone HCl (Cordarone) 200 mg DAILY ORAL 04/19/20 09:00 07/18/20 08:59 04/19/20 08:49 Amlodipine Besylate (Norvasc) 10 mg DAILY ORAL 04/19/20 09:00 05/19/20 08:59 04/19/20 08:48 Bisacodyl (Dulcolax) 10 mg DAILYPRN PRN RECTAL Constipation 04/18/20 14:30 07/17/20 14:29 Dextrose (Dextrose 50%) 25 ml Q30M PRN IV Hypoglycemia 04/18/20 14:30 07/17/20 14:29 Dextrose (Dextrose 50%) 50 ml Q30M PRN IV Hypoglycemia 04/18/20 14:30 07/17/20 14:29 Diltiazem HCl (Cardizem Tab) 90 mg EVERY 8 HOURS ORAL 04/18/20 22:00 05/18/20 21:59 04/19/20 06:05 Diphenhydramine HCl (Benadryl) 25 mg Q6H PRN ORAL Itching/Pruritis 04/18/20 14:30 05/18/20 14:29 Docusate Sodium (Colace) 100 mg EVERY 12 HOURS ORAL 04/18/20 21:00 05/18/20 20:59 Doxazosin Mesylate (Cardura) 4 mg DAILY ORAL 04/19/20 09:00 05/19/20 08:59 04/19/20 08:50 Duloxetine HCl (Cymbalta) 60 mg BID ORAL 04/18/20 18:00 07/17/20 17:59 04/19/20 08:49 Furosemide (Lasix) 40 mg EVERY 12 HOURS ORAL 04/18/20 21:00 05/18/20 20:59 04/19/20 08:46 Gabapentin (Neurontin) 300 mg BEDTIME ORAL 04/18/20 21:00 05/18/20 20:59 04/18/20 20:31 Hydralazine HCl (Apresoline) 50 mg Q6HR ORAL 04/18/20 18:00 07/17/20 17:59 04/19/20 06:05 Lorazepam (Ativan 2mg/ml 1ml) 0.5 mg Q4H PRN IV For Anxiety 04/18/20 14:30 04/25/20 14:29 Magnesium Hydroxide (Mom) 30 ml HSPRN PRN ORAL Constipation 04/18/20 14:30 05/18/20 14:29 Methocarbamol (Robaxin) 500 mg QIDPRN PRN ORAL Muscle Spasm 04/18/20 14:30 05/18/20 14:29 Micafungin Sodium 100 mg/Sodium Chloride 110 ml @ 110 mls/hr Q24H IVPB 04/18/20 21:00 04/25/20 20:59 04/18/20 22:08 Ondansetron HCl (Zofran) 4 mg Q6H PRN IVP Nausea & Vomiting 04/18/20 14:30 05/18/20 14:29 Oxycodone/ Acetaminophen (Percocet 10/325) 1 tab Q4H PRN ORAL pain 04/18/20 12:45 04/25/20 12:44 04/19/20 08:47 Phosphorus (Phospha 250 Neutral) 250 mg THREE TIMES A DAY ORAL 04/18/20 18:00 05/18/20 17:59 04/19/20 08:49 Polyethylene Glycol (Miralax) 17 gm DAILYPRN PRN ORAL Constipation 04/18/20 14:30 05/18/20 14:29 Polymyxin B Sulfate [id number] units/Dextrose 550 ml @ 550 mls/hr Q12H IV 04/18/20 17:00 04/25/20 16:59 04/19/20 05:24 Potassium Chloride (K-Dur) 40 meq DAILY ORAL 04/19/20 09:00 07/18/20 08:59 04/19/20 08:46 Vancomycin HCl (Vanco pharmacy to dose) 1 ea DAILY PRN MISC Per rx protocol 04/18/20 14:45 05/18/20 14:44 Vancomycin/Sodium Chloride 275 ml @ 183.333 mls/hr Q12HR@0600,1800 IVPB 04/18/20 18:00 04/23/20 17:59 04/19/20 06:05 Assessment/Plan Assessment/Plan: Hematology Consultation REQ MD: Marsha Cochran RFC Coaulopathy and iron deficiency anemia DOS 04/19/2020 ID [id number] old female Patient presents with complaints of worsening symptoms patient herself appears Chronically debilitated I did make contact with the patient's reports that the patient was at a nursing facility for over a month Upon coming home she appeared to be weak patient was also taking new meds and became unrepsonsive just discharged yesterday and p/w afib and elev heart rate, has been seen by columba garcia, surgery Is currently on xarelto, meds noted, anemia panel reviewed, s/p intub and ext recently Allergies: LISINOPRIL (Verified Allergy, Unknown, Hives, 04/12/14) COVID-19 Screening Contact w/high risk pt: No Recent Travel to affected area: No Experienced COVID-19 symptoms?: No COVID-19 Testing performed HEALTH SANITARIAN: No Patient History Limited by: medical condition Past Medical History: see triage record Reviewed Nursing Documentation: PMH: Agreed; PSxH: Agreed Nursing Documentation-PMH Hx Cardiac Problems: Yes Hx Hypertension: Yes Hx Pacemaker: No - CHRONIC NECK PAIN Hx Diabetes: Yes Hx Cancer: No Hx Neurological Problems: Yes Hx Seizures: Yes Review of Systems All Other Systems: limited - negative 12 point ros except as noted above, no bleeding Physical Exam Sp02 EP Interpretation: reviewed, normal General: Patient appears chronically ill Head: normocephalic, atraumatic Respiratory: , crackles - both lower lobes Cardiovascular: tachycardia Gastrointestinal: non tender, soft Musculoskeletal: other - Patient appears chronically debilitated both lower extremities are extended Neurologic: other - Some verbal response, but chronic disability Skin: no rash Labs noted Imaging reviewed Assessment and Recs # Anemia of iron deficiency, with a ferritin that is less than 50 recentrly --> Anemia workup has been ordered, rule out gi bleed --> recheck ferritin, occult was + --> No evidence of hemolysis is noted, peripheral smear has been reviewed. --> Hgb goal >7. Transfuse prn. --> IRon IV x 5 days started 04/06 as ferritin is low--> restart after ferritin checked --> Medications have been reviewed --> low threshold for gi evaluation in case has occult + --> holding xarelto at this time --> hgb trend 8.2-->7.2->8->7.4->7.6-->6.8 --> GI eval prn # Hypercoagulable disorder is on xarelto for afib with rvr --> reviewed cards recs --> have dw Pcp --> monitor h/h # Leukopenia with gram neg pna, uti, sepsis, fevers, leukocytosis, a.flutter, respiratory failure, atx, dony, + ua, atx --> covid is neg --> abx svetlana and micafungin/polymyx-->hola/svetlana-->polymyxin/vanc/micafungin --> as per id recs --> wbc trend 4.5-->4.1 # Respiratory failure, on vent initially --> now extubated, mo # Renal failure. --> improved # Diabetes. --> endo prn # Hypertension. --> per cards # Diabetes and hypertension, treatment per primary care team. --> a1c goal <8, acchuchecks qac and qhs # Patient with history of altered mental status. --> metabolic encephalopathy # Seizure history. # Chronic neck pain. # Lactic acidsis # HLD # Obesity # Dvt ppx xarelto (on hold) Appreciate consultation and Virgil Sainz RN, MD Apr 19, 2020 08:54
[2020-04-19] MEDS ORDERED: Xarelto 15mg tab ORAL SCH (09:00)
[2020-04-19] MEDS ORDERED: Amiodarone 200mg tab ORAL SCH (09:00)
[2020-04-19 09:10] LABS: % IRON SATURATION 25 % (15-50); IRON 25 ug/dL (50-175); TOTAL IRON BINDING CAPACITY 100 ug/dL (250-450)
[2020-04-19 09:22] LABS: FERRITIN 290 NG/ML (8-388)
--- NOTE | 2020-04-19 10:05 | NUR ---
PT NOTE Received MD order for PT evaluation. Patient with Hgb of 6.8, scheduled for blood transfusion. PT evaluation deferred due to low Hgb. Encouraged patient to perform bed exercises as able. Edda ARCOS notified, will follow up tomorrow.
--- NOTE | 2020-04-19 10:16 | Nephrology Progress Note ---
Assessment/Plan Plan #Afib with RVR #HTN #Hypokalemia #Hypomagnesemia #Left Plueral Effusion #Hx Sepsis, HCAP/UTI, + ESBL #Chronic Pain #Iron Deficiency Anemia #Seizure vs prolonged period of immobility #S/P Acute metabolic Encephalopathy #Hx of Colectomy w/ Colostomy - tele - rate control per cardiology - holding xarelto - replete lytes - monitor h -s/p EGD/colon on 04/16 showing gastritis, ulcers near ostomy bag likely ischemic , biopsies obtained, follow-up pathology -ctm Hgb, transfuse for hgb <7 -cont home meds -wound care - monitor renal function Time spent 45 min - greater than 50% on care coordination and counseling Subjective ROS Limited/Unobtainable: No Constitutional: Reports: malaise, weakness Subjective rate better controlled no chest pain no SOB hemoglobin low K low Objective Objective Last 24 Hour Vital Signs Date Time Temp Pulse Resp B/P (MAP) Pulse Ox O2 Delivery O2 Flow Rate FiO2 04/19/20 08:48 91 144/74 04/19/20 08:22 97.7 91 18 144/74 (97) 96 04/19/20 06:05 139/74 04/19/20 06:05 78 139/74 04/19/20 04:09 98.0 04/19/20 04:00 97.8 96 19 135/62 (86) 99 04/19/20 04:00 97 04/19/20 00:32 139/74 04/19/20 00:00 98.0 78 20 134/70 (91) 98 04/19/20 00:00 90 04/18/20 22:07 78 139/74 04/18/20 21:00 Room Air 04/18/20 20:00 86 04/18/20 20:00 97.7 85 20 125/63 (83) 99 04/18/20 17:14 140/73 04/18/20 16:30 97.9 91 20 140/73 (95) 96 04/18/20 16:30 Room Air 04/18/20 16:29 93 04/18/20 16:01 98.5 92 18 152/77 100 Room Air 04/18/20 15:02 98.5 92 18 152/77 100 Room Air 04/18/20 13:11 97.9 115 20 154/70 98 Room Air 04/18/20 13:01 147 132/63 04/18/20 12:46 140 103/60 04/18/20 12:00 97.9 138 19 103/60 96 Room Air 04/18/20 11:51 97.9 140 24 103/60 (74) 94 Intake and Output 04/18/20 04/19/20 19:00 07:00 Intake Total 868 ml 283.333 ml Output Total 350 ml Balance 518 ml 283.333 ml Intake Oral 118 ml IV Total 750 ml 283.333 ml Output Urine Total 350 ml # Voids 2 # Bowel Movements 1 1 Laboratory Tests 04/18/20 12:40: White Blood Count 4.5L, Red Blood Count 3.13L, Hemoglobin 8.0L, Hematocrit 27.0L , Mean Corpuscular Volume 86, Mean Corpuscular Hemoglobin 25.6L, Mean Corpuscular Hemoglobin Concent 29.8L, Red Cell Distribution Width 16.4H, Platelet Count 451H, Mean Platelet Volume 6.1L, Neutrophils (%) (Auto) 64.6, Lymphocytes (%) (Auto) 20.9, Monocytes (%) (Auto) 11.6H, Eosinophils (%) (Auto) 1.9, Basophils (%) (Auto) 1.0, Prothrombin Time 13.1H, Prothromb Time International Ratio 1.2H, Activated Partial Thromboplast Time 35H, Urine Color Pale yellow, Urine Appearance Clear, Urine pH 8, Urine Specific [place] 1.010, Urine Protein Negative, Urine Glucose (UA) Negative, Urine Ketones Negative, Urine Blood 4+H, Urine Nitrite Negative, Urine Bilirubin Negative, Urine Urobilinogen Normal, Urine Leukocyte Esterase Negative, Urine RBC 40-60H, Urine WBC 0-2, Urine Squamous Epithelial Cells Occasional, Urine Bacteria Occasional, Sodium Level 143, Potassium Level 3.0L, Chloride Level 106, Carbon Dioxide Level 27, Anion Gap 10, Blood Urea Nitrogen 9, Creatinine 1.0, Estimat Glomerular Filtration Rate > 60, Glucose Level 99, Calcium Level 8.3L, Phosphorus Level 3.6, Magnesium Level 1.2L, Total Bilirubin 0.2, Aspartate Amino Transf (AST/SGOT) 20, Alanine Aminotransferase (ALT/SGPT) < 6L, Alkaline Phosphatase 86, Troponin I 0.012, Pro-B-Type Natriuretic Peptide 2346H, Total Protein 6.2L, Albumin 1.6L, Globulin 4.6, Albumin/Globulin Ratio 0.3L, Urine Opiates Screen PositiveH, Urine Barbiturates Screen Negative, Phencyclidine (PCP ) Screen Negative, Urine Amphetamines Screen Negative, Urine Benzodiazepines Screen Negative, Urine Cocaine Screen Negative, Urine Marijuana (THC) Screen Negative 04/19/20 05:00: White Blood Count 4.1L, Red Blood Count 2.62L, Hemoglobin 6.8*L, Hematocrit 22.7L, Mean Corpuscular Volume 87, Mean Corpuscular Hemoglobin 25.9L, Mean Corpuscular Hemoglobin Concent 29.9L, Red Cell Distribution Width 16.6H, Platelet Count 403, Mean Platelet Volume 6.3L, Neutrophils (%) (Auto) , Lymphocytes (%) (Auto) , Monocytes (%) (Auto) , Eosinophils (%) (Auto) , Basophils (%) (Auto) , Sodium Level 141, Potassium Level 3.2L, Chloride Level 104, Carbon Dioxide Level 29, Anion Gap 8, Blood Urea Nitrogen 8, Creatinine 1.0 , Estimat Glomerular Filtration Rate > 60, Glucose Level 95, Calcium Level 8.1L , Magnesium Level 1.9, Differential Total Cells Counted 100, Neutrophils % ( Manual) 59, Lymphocytes % (Manual) 27, Monocytes % (Manual) 10, Eosinophils % ( Manual) 4H, Basophils % (Manual) 0, Band Neutrophils 0, Platelet Estimate Adequate, Platelet Morphology Normal, Hypochromasia 1+, Anisocytosis 1+, Iron Level 25L, Total Iron Binding Capacity 100L, Percent Iron Saturation 25, Unsaturated Iron Binding 75L, Ferritin 290 Height (Feet): 5 Height (Inches): 10.00 Weight (Pounds): 200 General Appearance: no apparent distress, alert EENT: PERRL/EOMI, normal ENT inspection Neck: non-tender, normal alignment Cardiovascular: irregularly irregular Respiratory/Chest: chest wall non-tender, lungs clear Abdomen: normal bowel sounds, non tender, soft Extremities: normal range of motion, non-tender Neurologic: alert, oriented x 3 Venkat Montes M.D. Apr 19, 2020 10:16
--- NOTE | 2020-04-19 12:31 | NUR ---
CASE MANAGEMENT:INITIAL REVIEW 69 YR OLD FEMALE BIBA FROM [facility] CC;PAIN SI;RAPID A-FIB. BACK PAIN. 97.9 147 24 103/60 94% ON RA H/H 8.0/27.0 K+ 3.0 MAG 1.2 ALB 1.6 UA+ BLOOD, RBC URINE TOX (+) OPIATES COAGULATION = PT 13.1 INR 1.2 APTT 35 CXR ~ Slightly increased left pleural effusion. Stable bilateral infiltrates. IS;CARDIZEM IV EKG TRACING CARDIAC MONITORING ADMITTED TO TELEMETRY TELE STATUS DCP;PATIENT IS FROM [facility] ON [facility]
--- NOTE | 2020-04-19 13:57 | NUR ---
NURSE NOTES:WOUND CARE NOTES:Pt presented on admission with Obesity and multiple Pressure injuries. Unstageable Pressure Injury Sacrum. (L)4.5cm x (W)3.5cm. Base of wound is 10% necrotic,90% slough.Surrounding dry, pink epithelial,bordered by dry black and peeling skin.Pt stated sacral area is tender when she is supine. Resolving Pressure injury L Ischium . Elongated area that is a reabsorbed DTPI. Striated areas of pink epithelial within base of Pressure injury. Pt denied tenderness when palpated. Unstageable Pressure injury R Buttocks.(L)3.5cm x (W)2.5cm. Base of wound is 100% slough. Edges are adherent to base of wound. Darker skin tone without induration periwound.No odor or exudate noted. Reabsorbed DPI R Ischium. Dry, black and peeling skin noted .Pt denied any tenderness when palpated.Bilat lower ext are edematous. Haemosiderin noted to L lower ext. Pt stated distal aspects of both lower ext are painful but stated more painful on RLE. DTPI noted to medial R heel. Intact blood filled blister noted(L)3.5cm x (W)3cm. Periwound is blanchable but fluctuant. Pt complained of tenderness when minimally palpated R heel is boggy but blanchable. Denied tenderness when minimally palpated. Tx.Plan:Cleanse Wounds Sacrum and R Buttocks. Apply TheraHoney to wounds. Apply Moisture Barrier Paste Periwound Cover with Optifoam drsg. Change Daily and prn. Apply Moisture Barrier Paste to R and L Ischial Tuberosities with each Incontinence care. Apply Cavilon To both heels. Cover each Heel and Malleoli with Optifoam drsg. Change every 7 days and prn. Reposition at least every 2hours or as tolerated. Elevate both lower ext. with both heels off-loaded. APM/MAREN Mattress overlay.
--- NOTE | 2020-04-19 14:25 | Cardiac Electrophysiology PN ---
Subjective Subjective [id number] Objective Last 24 Hour Vital Signs Date Time Temp Pulse Resp B/P (MAP) Pulse Ox O2 Delivery O2 Flow Rate FiO2 04/19/20 13:19 134/66 04/19/20 12:06 96.6 82 20 134/66 (88) 97 04/19/20 09:00 Room Air 04/19/20 08:48 91 144/74 04/19/20 08:22 97.7 91 18 144/74 (97) 96 04/19/20 08:00 89 04/19/20 06:05 139/74 04/19/20 06:05 78 139/74 04/19/20 04:09 98.0 04/19/20 04:00 97.8 96 19 135/62 (86) 99 04/19/20 04:00 97 04/19/20 00:32 139/74 04/19/20 00:00 98.0 78 20 134/70 (91) 98 04/19/20 00:00 90 04/18/20 22:07 78 139/74 04/18/20 21:00 Room Air 04/18/20 20:00 86 04/18/20 20:00 97.7 85 20 125/63 (83) 99 04/18/20 17:14 140/73 04/18/20 16:30 97.9 91 20 140/73 (95) 96 04/18/20 16:30 Room Air 04/18/20 16:29 93 04/18/20 16:01 98.5 92 18 152/77 100 Room Air 04/18/20 15:02 98.5 92 18 152/77 100 Room Air Intake and Output 04/18/20 04/19/20 19:00 07:00 Intake Total 868 ml 283.333 ml Output Total 350 ml Balance 518 ml 283.333 ml Intake Oral 118 ml IV Total 750 ml 283.333 ml Output Urine Total 350 ml # Voids 2 # Bowel Movements 1 1 Laboratory Tests Test 04/19/20 05:00 White Blood Count 4.1 K/UL (4.8-10.8) L Red Blood Count 2.62 M/UL (4.20-5.40) L Hemoglobin 6.8 G/DL (12.0-16.0) *L Hematocrit 22.7 % (37.0-47.0) L Mean Corpuscular Volume 87 FL (80-99) Mean Corpuscular Hemoglobin 25.9 PG (27.0-31.0) L Mean Corpuscular Hemoglobin Concent 29.9 G/DL (32.0-36.0) L Red Cell Distribution Width 16.6 % (11.6-14.8) H Platelet Count 403 K/UL (150-450) Mean Platelet Volume 6.3 FL (6.5-10.1) L Neutrophils (%) (Auto) % (45.0-75.0) Lymphocytes (%) (Auto) % (20.0-45.0) Monocytes (%) (Auto) % (1.0-10.0) Eosinophils (%) (Auto) % (0.0-3.0) Basophils (%) (Auto) % (0.0-2.0) Differential Total Cells Counted 100 Neutrophils % (Manual) 59 % (45-75) Lymphocytes % (Manual) 27 % (20-45) Monocytes % (Manual) 10 % (1-10) Eosinophils % (Manual) 4 % (0-3) H Basophils % (Manual) 0 % (0-2) Band Neutrophils 0 % (0-8) Platelet Estimate Adequate Platelet Morphology Normal Hypochromasia 1+ Anisocytosis 1+ Sodium Level 141 MMOL/L (136-145) Potassium Level 3.2 MMOL/L (3.5-5.1) L Chloride Level 104 MMOL/L (98-107) Carbon Dioxide Level 29 MMOL/L (21-32) Anion Gap 8 mmol/L (5-15) Blood Urea Nitrogen 8 mg/dL (7-18) Creatinine 1.0 MG/DL (0.55-1.30) Estimat Glomerular Filtration Rate > 60 mL/min (>60) Glucose Level 95 MG/DL (74-106) Calcium Level 8.1 MG/DL (8.5-10.1) L Magnesium Level 1.9 MG/DL (1.8-2.4) Iron Level 25 ug/dL (50-175) L Total Iron Binding Capacity 100 ug/dL (250-450) L Percent Iron Saturation 25 % (15-50) Unsaturated Iron Binding 75 ug/dL (112-346) L Ferritin 290 NG/ML (8-388) Microbiology Date/Time Source Procedure Growth Status 04/18/20 14:50 Rectum Received Carlos Dean MD Apr 19, 2020 14:24
[2020-04-19] MEDS: Amiodarone 200mg tab ORAL SCH (18:00)
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
--- NOTE | 2020-04-19 18:44 | Consultation ---
DATE OF CONSULTATION: 04/19/2020 CARDIAC ELECTROPHYSIOLOGY CONSULTATION REFERRING PHYSICIAN: Malathi Mendez MD REASON FOR CONSULTATION: Atrial flutter with rapid ventricular response. HISTORY OF PRESENT ILLNESS: Patient is a 69-year-old lady with history of hypertension, hyperlipidemia, paroxysmal atrial flutter, chronic pain, who presented from a SNF for atrial fibrillation, rapid ventricular response, as well as chronic pain. The patient's heart rate was as high as 150 beats per minute. The patient received IV and p.o. Cardizem and then subsequently converted to sinus rhythm. The patient was recently discharged from the hospital on April 17, 2020 after a prolonged hospitalization with pneumonia and was tested negative for COVID, but had typical atrial flutter. The original plan was to do atrial flutter ablation as an outpatient. REVIEW OF SYSTEMS: Negative other than what was mentioned in history of present illness. PAST MEDICAL HISTORY: As mentioned above. FAMILY HISTORY: Noncontributory. ALLERGIES: She is allergic to lisinopril. SOCIAL HISTORY: She lives in prison. Does not smoke or drink alcohol. MEDICATIONS: Per reconciliation. PHYSICAL EXAMINATION: VITAL SIGNS: Blood pressure 134/66, pulse is 82, respirations 18, she is afebrile. NECK: No JVD. LUNGS: Clear. CARDIOVASCULAR: Irregular S1 and S2 with no gallop or murmur. ABDOMEN: Soft. EXTREMITIES: 1+ pitting edema. LABORATORY AND DIAGNOSTIC DATA: Labs show white count 4.9, hemoglobin of 6.8, hematocrit 22.7, and platelet count of 403. Sodium 141, potassium 3.2, BUN of 8, creatinine of 1, and glucose of 95. Troponin is negative and urine toxicology is positive for opiates. ASSESSMENT AND PLAN: 1. Recurrent atrial flutter with rapid ventricular response. We will increase her amiodarone to 200 mg b.i.d. I will discontinue amlodipine, and the patient will be on Cardizem 90 mg every 8 hours and increase it to 90 mg every 6 hours for better rate control. The patient is currently off anticoagulation as hemoglobin is profoundly low at 6. 2. Severe anemia, getting blood transfusion. 3. Hypertension. Maximize Cardizem first, after which we will start Lasix 40 mg IV b.i.d. For blood pressure, the patient is also on hydralazine 50 mg every 6 hours. 4. Hyperlipidemia, on Lipitor. 5. Pleural effusion. Thank you very much for allowing me to participate in the care of this patient. Please do not hesitate to contact me for any questions regarding my evaluation. Carlos Dean M.D. DR: KWESI JOB#: [id number] CC:
--- NOTE | 2020-04-19 18:50 | NUR ---
NURSE NOTES: Vancomycin and polymycin given late, because pt was getting blood transfusion.
--- NOTE | 2020-04-19 19:00 | Consultation ---
DATE OF CONSULTATION: 04/19/2020 PULMONARY CONSULTATION HISTORY OF PRESENT ILLNESS: This is a 69-year-old female with a history of chronic atrial fibrillation, chronic pain, diverticulitis, hypertension, hyperlipidemia, who presented from a care home because of AFib and RVR. Patient was tachycardic and was in AFib with a rate of 150. Patient was given diltiazem and her heart rate subsequently improved. The patient had been discharged recently after having been discharged with pneumonia. The patient has been on micafungin, polymyxin, and vancomycin. The patient is currently feeling better. ALLERGIES: Lisinopril. PAST HISTORY: Cardiac arrhythmias, hypertension, depression, chronic pain, hyperlipidemia. HOME MEDICATIONS: Include amiodarone, amlodipine, Cardizem, Colace, doxazosin, Cymbalta, Lasix, gabapentin, hydralazine, micafungin, Xarelto, and Zocor. PHYSICAL EXAMINATION: GENERAL: A 69-year-old female. HEENT: Unremarkable. Blood pressure is 140/70, heart rate 90, respiratory rate , afebrile, O2 sat 92% on room air. LUNGS: Clear breath sounds bilaterally. ABDOMEN: Soft. There is no edema. NEUROLOGIC: Nonfocal. LABORATORY DATA: Lab testing shows hemoglobin 8, now dropped to 6.8, white count 4.1, platelet count is normal. Chemistries are normal. Coags are negative except for INR 1.2. Toxicology is negative except for opiates. Urinalysis shows few pus cells. IMAGING STUDIES: The patient underwent chest x-ray, which shows a small left effusion and bibasilar infiltrates. IMPRESSION: 1. Small left pleural effusion. 2. Bibasilar infiltrates. 3. History of chronic pain. 4. Atrial fibrillation. 5. [facility] resident. DISCUSSION: Admit to the hospital. Continue medications including Cardizem. Resume home medications. We will order oxygen and pulmonary hygiene. The patient has been started on IV antibiotics as well. Travis Cordova M.D. DR: KATHLEEN JOB#: [id number] CC:
[2020-04-19] MEDS ORDERED: TEMAZEPAM7.5 MG ORAL (19:05)
[2020-04-19] MEDS ORDERED: ACETAMINOPHEN325 M1 ORAL (19:05)
[2020-04-19] MEDS ORDERED: PERCOCET 10-321 EACH ORAL (19:05)
[2020-04-19] MEDS ORDERED: DOCUSATE S50 MG/5 ML PO (19:15)
[2020-04-19] MEDS ORDERED: COLACE100 MG/10 ORAL (19:15)
[2020-04-19] MEDS ORDERED: MICAFUNGIN100 MG IV (19:17)
[2020-04-19] MEDS ORDERED: ROBAXIN-500MG ORAL (19:29)
--- NOTE | 2020-04-19 19:31 | NUR ---
HAND-OFF: Report given to Jg/RN, pt in stable condition, endorsed plan of care.
--- NOTE | 2020-04-19 19:35 | NUR ---
NURSE NOTES: Received report from Edda Gan RN. Pt is in stable condition, denies pain. Will continue plan of care and close monitoring.
[2020-04-19 20:34] LABS: HEMATOCRIT 23.9 % (37.0-47.0); HEMOGLOBIN 7.4 G/DL (12.0-16.0); MEAN CORPUSCULAR VOLUME 85 FL (80-99); PLATELET COUNT 412 K/UL (150-450); RED BLOOD COUNT 2.82 M/UL (4.20-5.40); RED CELL DISTRIBUTION WIDTH 16.6 % (11.6-14.8)
[2020-04-19] MEDS: Micafungin 100 MG in NS 110 ML IVPB SCH (21:30)
[2020-04-19] MEDS: Methocarbamol 500mg tab ORAL PRN (22:38)
--- NOTE | 2020-04-19 23:00 | NUR ---
NURSE NOTES: Reported to Dr. Tabares pt's current Hbg 7.4; after 1 bag PRBCs and previous hbg 6.8. Ordered new 04004/20/20 CBC and notify him of hbg < 7.0. Will closely monitor pt and endorse to AM shift.
[2020-04-20 04:00] VITALS: BP 136/61
[2020-04-20] MEDS: Polymyxin B Sulfate 500,000 UNITS in D5W 500ml 550 ML IV SCH ×2 (04:44→16:55)
[2020-04-20] MEDS: Vancomycin 1.25gm/NS Premix q24h IVPB SCH (05:00)
[2020-04-20] MEDS: HydrALAZINE 50mg tab ORAL SCH ×3 (05:01→17:00)
[2020-04-20] MEDS: dilTIAZem HCl 90mg tab ORAL SCH ×3 (05:01→17:00)
[2020-04-20 05:55] LABS: HEMATOCRIT 25.3 % (37.0-47.0); HEMOGLOBIN 7.8 G/DL (12.0-16.0); MEAN CORPUSCULAR VOLUME 87 FL (80-99); PLATELET COUNT 393 K/UL (150-450); RED BLOOD COUNT 2.92 M/UL (4.20-5.40); RED CELL DISTRIBUTION WIDTH 16.3 % (11.6-14.8)
[2020-04-20 06:09] LABS: ANION GAP 8 mmol/L (5-15); BLOOD UREA NITROGEN 5 mg/dL (7-18); CARBON DIOXIDE 28 MMOL/L (21-32); CHLORIDE 104 MMOL/L (98-107); CREATININE 1.1 MG/DL (0.55-1.30); POTASSIUM 3.4 MMOL/L (3.5-5.1); SODIUM 140 MMOL/L (136-145)
--- NOTE | 2020-04-20 07:33 | NUR ---
HAND-OFF: Report given to Tracey Marvin RN. Pt denies pain at this time; in stable condition. Plan of care endorsed.
--- NOTE | 2020-04-20 07:39 | NUR ---
NURSE NOTES: Received patient in bed awake. O2 via NC in place, no SOB or acute distress. PICC line intact and patent. FC intact, draining yellow colored urine. Colostomy bag intact. Complaining of pain 06/28. HOB elevated. Bed locked in lowest position. Call light within reach. Will continue plan of care.
[2020-04-20 08:00] VITALS: BP 127/63
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
[2020-04-20] MEDS: Furosemide 40mg tab ORAL SCH ×2 (08:21→21:25)
[2020-04-20] MEDS: Doxazosin 4mg tab ORAL SCH (08:22)
[2020-04-20] MEDS: Phospha 250 Neutral tab ORAL SCH ×3 (08:22→16:59)
[2020-04-20] MEDS: Amiodarone 200mg tab ORAL SCH ×2 (08:23→17:00)
[2020-04-20] MEDS: Methocarbamol 500mg tab ORAL PRN ×2 (08:23→18:08)
--- NOTE | 2020-04-20 08:26 | Diagnostic Imaging Report ---
EXAM: XR Chest, 1 View CLINICAL HISTORY: INFECT TECHNIQUE: Frontal view of the chest. COMPARISON: No relevant prior studies available. FINDINGS/IMPRESSION: Left upper extremity PICC line in the superior vena cava. Airspace consolidation with bronchiectasis within the medial aspect left upper lobe. Mild consolidation within the inferior aspect of the right lower lobe. Right perihilar opacity. Infiltrate in these areas are not excluded. No pleural effusion or pneumothorax. The heart size is enlarged. The aorta is calcified.
--- NOTE | 2020-04-20 08:52 | General Progress Note ---
Assessment/Plan Status: stable Assessment/Plan: 69-year-old female with PMH of A. fib, chronic pain, diverticulitis, HTN, HLD who presents from SNF for uncontrolled chronic pain and A. fib RVR. #Afib w/ RVR - resolved -cont medical care on tele -likely 2/2 uncontrolled pain and electrolyte abnormality -s/p diltiazem PO and IV in ED, now rate controlled -cont home amiodarone, cardizem, Xarelto -Cardio, Dr. Crooks, consulted, recs appreciated -EP, Dr. Scott, consulted, recs appreciated -d/w cardio team, cont to hold xarelto for one more day, to restart 04/21 so long no further signs of drop in hgb -cardio team d/w interventional cardio, Dr. Willson, to to be scheduled for watchman next week -if pt remains stable, will likely d/c to SNF tomorrow back on xarelto w/ o/p watchman procedure at [facility] next week #Iron Deficiency Anemia #Hx of FOBT + -s/p EGD/colon on 04/16 showing gastritis, ulcers near ostomy bag likely ischemic , biopsies obtained, follow-up pathology -Hemoglobin stable -ctm Hgb, transfuse for hgb <7 -/: s/p 1 U PRBC -d/w GI, Dr. Boyd, and Heme, Dr Wary, recs appreciated -ctm, no endoscopic intervention at this time #Hypokalemia #Hypomagnesemia -replaced, ctm -replace PRN #Left Plueral Effusion -CXR on admission w/slight increased left pleural effusion -pt w/no conversational dyspnea, lungs CTAB, ctm at this time -Puln, Dr. Cordova consulted #Hx Sepsis, HCAP/UTI, + ESBL -Sputum w/ multiple MDR organisms, now requiring aggressive AB -cont Micagungin, Polymoxin, Vancomyin for 2 more days -ID consulted, recs appreciated #Chronic Pain -Continue Robaxin for spasms -Cont Percocet PRN -morphine for breakthrough pain -pain management consulted, recs appreciated #Seizure vs prolonged period of immobility #S/P Acute metabolic Encephalopathy -cont home meds #Hx of Colectomy w/ Colostomy -wound care DVT ppx: Xarelto --> hold given acute anemia, SCDs Full Code I spent 38 mins on this encounter w/ 31 min on care/coordination and pt counseling. D/w Rn, Dr. Crooks, Dr. Dean, Dr. Iglesias, Dr. Wray, Dr. Montes and Dr. Boyd. Time spent may not reflect in note. Subjective Allergies: Coded Allergies: LISINOPRIL (Verified Allergy, Unknown, Hives, 04/12/14) Subjective No acute events overnight, patient denies any tachycardia/palpitations at this time. s/p 1 U PRBC w/ good response in hgb. Pt states she has generalized pain, not controlled on current meds, states pain in hands b/l. Denies any abd pain, n/v, SOB, CP at this time. Objective Last 24 Hour Vital Signs Date Time Temp Pulse Resp B/P (MAP) Pulse Ox O2 Delivery O2 Flow Rate FiO2 04/20/20 08:00 97.9 94 20 127/63 (84) 93 04/20/20 05:01 92 136/61 04/20/20 05:01 136/61 04/20/20 04:00 98.6 94 18 136/61 (86) 96 04/20/20 04:00 92 04/20/20 03:20 98.6 04/20/20 00:00 90 04/19/20 23:46 96 97/54 04/19/20 23:46 97/54 04/19/20 23:43 98.6 94 18 97/54 (68) 96 04/19/20 21:00 Room Air 04/19/20 20:00 98.3 93 18 114/76 (89) 95 04/19/20 20:00 94 04/19/20 18:00 89 143/72 04/19/20 18:00 143/72 04/19/20 16:00 87 04/19/20 16:00 98.1 89 18 143/72 (95) 95 04/19/20 13:19 134/66 04/19/20 12:06 96.6 82 20 134/66 (88) 97 04/19/20 12:00 88 04/19/20 09:00 Room Air Intake and Output 04/19/20 04/20/20 19:00 07:00 Intake Total 120 ml 500 ml Output Total 1200 ml 1200 ml Balance -1080 ml -700 ml Intake Oral 120 ml 500 ml Output Urine Total 1200 ml 1200 ml # Voids 3 # Bowel Movements 1 Laboratory Tests 04/19/20 18:05: White Blood Count 5.0, Red Blood Count 2.82L, Hemoglobin 7.4L, Hematocrit 23.9L , Mean Corpuscular Volume 85, Mean Corpuscular Hemoglobin 26.2L, Mean Corpuscular Hemoglobin Concent 30.9L, Red Cell Distribution Width 16.6H, Platelet Count 412, Mean Platelet Volume 5.9L, Neutrophils (%) (Auto) , Lymphocytes (%) (Auto) , Monocytes (%) (Auto) , Eosinophils (%) (Auto) , Basophils (%) (Auto) , Differential Total Cells Counted 100, Neutrophils % ( Manual) 56, Lymphocytes % (Manual) 30, Monocytes % (Manual) 6, Eosinophils % ( Manual) 7H, Basophils % (Manual) 1, Band Neutrophils 0, Platelet Estimate Adequate, Platelet Morphology Normal, Polychromasia 1+, Hypochromasia 1+, Anisocytosis 1+ 04/20/20 05:05: White Blood Count 4.0L, Red Blood Count 2.92L, Hemoglobin 7.8L, Hematocrit 25.3L , Mean Corpuscular Volume 87, Mean Corpuscular Hemoglobin 26.8L, Mean Corpuscular Hemoglobin Concent 30.9L, Red Cell Distribution Width 16.3H, Platelet Count 393, Mean Platelet Volume 6.2L, Neutrophils (%) (Auto) , Lymphocytes (%) (Auto) , Monocytes (%) (Auto) , Eosinophils (%) (Auto) , Basophils (%) (Auto) , Sodium Level 140, Potassium Level 3.4L, Chloride Level 104, Carbon Dioxide Level 28, Anion Gap 8, Blood Urea Nitrogen 5L, Creatinine 1.1, Estimat Glomerular Filtration Rate > 60, Glucose Level 113H, Calcium Level 8.0L, Vancomycin Level Trough 29.9H Height (Feet): 5 Height (Inches): 10.00 Weight (Pounds): 200 Objective General: NAD, A&O x 3 HEENT: NCAT, EOMi, MMM CV: RRR, no murmurs, rubs, or gallops Pulm: CTAB, No wheezes, rhonchi, or rales, no accessory muscle usage or conversational dyspnea GI: Soft, nontender, nondistended, bowel sounds present, ostomy C/D/I with gas and stool present Ext: No lower extremity edema bilaterally Skin: no rashes lesions, normal turgor Delphine Cochran M.D. Apr 20, 2020 08:52
[2020-04-20] MEDS: Docusate 100mg cap ORAL SCH ×2 (09:00→21:00)
--- NOTE | 2020-04-20 10:09 | NUR ---
RADIOLOGY DEPT., CHEST X-RAY DONE.-P.DYE
--- NOTE | 2020-04-20 10:13 | Nephrology Progress Note ---
Assessment/Plan Plan #Afib with RVR #HTN #Hypokalemia #Hypomagnesemia #Left Plueral Effusion #Hx Sepsis, HCAP/UTI, + ESBL #Chronic Pain #Iron Deficiency Anemia #Seizure vs prolonged period of immobility #S/P Acute metabolic Encephalopathy #Hx of Colectomy w/ Colostomy - tele - rate control per cardiology - holding xarelto - replete lytes - monitor h -s/p EGD/colon on 04/16 showing gastritis, ulcers near ostomy bag likely ischemic , biopsies obtained, follow-up pathology -ctm Hgb, transfuse for hgb <7 -cont home meds -wound care - monitor renal function Time spent 45 min - greater than 50% on care coordination and counseling Subjective ROS Limited/Unobtainable: No Constitutional: Reports: weakness HEENT: Denies: no symptoms, eye pain, blurred vision, tearing, double vision, ear pain, ear discharge, nose pain, nose congestion, throat pain, throat swelling, mouth pain, mouth swelling, other Genitourinary: Denies: no symptoms, burning, discharge, frequency, flank pain, hematuria, incontinence, pain, urgency, other Neurologic/Psychiatric: Denies: no symptoms, anxiety, depressed, emotional problems, headache, numbness, paresthesia, pre-existing deficit, seizure, tingling, tremors, weakness, other Subjective rate better controlled no chest pain no SOB hemoglobin improved s/p transfusion Objective Objective Last 24 Hour Vital Signs Date Time Temp Pulse Resp B/P (MAP) Pulse Ox O2 Delivery O2 Flow Rate FiO2 04/20/20 08:00 97.9 94 20 127/63 (84) 93 04/20/20 05:01 92 136/61 04/20/20 05:01 136/61 04/20/20 04:00 98.6 94 18 136/61 (86) 96 04/20/20 04:00 92 04/20/20 03:20 98.6 04/20/20 00:00 90 04/19/20 23:46 96 97/54 04/19/20 23:46 97/54 04/19/20 23:43 98.6 94 18 97/54 (68) 96 04/19/20 21:00 Room Air 04/19/20 20:00 98.3 93 18 114/76 (89) 95 04/19/20 20:00 94 7/2/20 18:00 89 143/72 04/19/20 18:00 143/72 04/19/20 16:00 87 04/19/20 16:00 98.1 89 18 143/72 (95) 95 04/19/20 13:19 134/66 04/19/20 12:06 96.6 82 20 134/66 (88) 97 04/19/20 12:00 88 Intake and Output 04/19/20 04/20/20 19:00 07:00 Intake Total 120 ml 500 ml Output Total 1200 ml 1200 ml Balance -1080 ml -700 ml Intake Oral 120 ml 500 ml Output Urine Total 1200 ml 1200 ml # Voids 3 # Bowel Movements 1 Laboratory Tests 04/19/20 18:05: White Blood Count 5.0, Red Blood Count 2.82L, Hemoglobin 7.4L, Hematocrit 23.9L , Mean Corpuscular Volume 85, Mean Corpuscular Hemoglobin 26.2L, Mean Corpuscular Hemoglobin Concent 30.9L, Red Cell Distribution Width 16.6H, Platelet Count 412, Mean Platelet Volume 5.9L, Neutrophils (%) (Auto) , Lymphocytes (%) (Auto) , Monocytes (%) (Auto) , Eosinophils (%) (Auto) , Basophils (%) (Auto) , Differential Total Cells Counted 100, Neutrophils % ( Manual) 56, Lymphocytes % (Manual) 30, Monocytes % (Manual) 6, Eosinophils % ( Manual) 7H, Basophils % (Manual) 1, Band Neutrophils 0, Platelet Estimate Adequate, Platelet Morphology Normal, Polychromasia 1+, Hypochromasia 1+, Anisocytosis 1+ 04/20/20 05:05: White Blood Count 4.0L, Red Blood Count 2.92L, Hemoglobin 7.8L, Hematocrit 25.3L , Mean Corpuscular Volume 87, Mean Corpuscular Hemoglobin 26.8L, Mean Corpuscular Hemoglobin Concent 30.9L, Red Cell Distribution Width 16.3H, Platelet Count 393, Mean Platelet Volume 6.2L, Neutrophils (%) (Auto) , Lymphocytes (%) (Auto) , Monocytes (%) (Auto) , Eosinophils (%) (Auto) , Basophils (%) (Auto) , Sodium Level 140, Potassium Level 3.4L, Chloride Level 104, Carbon Dioxide Level 28, Anion Gap 8, Blood Urea Nitrogen 5L, Creatinine 1.1, Estimat Glomerular Filtration Rate > 60, Glucose Level 113H, Calcium Level 8.0L, Vancomycin Level Trough 29.9H Height (Feet): 5 Height (Inches): 10.00 Weight (Pounds): 200 Venkat Montes M.D. Apr 20, 2020 10:13
--- NOTE | 2020-04-20 10:28 | NUR ---
*-* DISCHARGE PLANNING *-* PATIENT HAS BEEN REFERRED TO: [facility] [place] P: [phone] F: [phone] EFAX: [phone] EMAIL: [email or web address] Addendum: 04/20/20 at 1038 by REI DE LA [place] CM S/W [facility] AT [facility] WONT BE ABLE TO TAKE HER TODAY TILL NEXT WEEK THEY NEED CLEARANCE FROM [facility] AND THEY ARE CLOSED TODAY.
--- NOTE | 2020-04-20 10:31 | NUR ---
PT NOTE Attempted to see patient for PT evaluation. Patient declining to participate with PT due to c/o not feeling well. Chad iniguez RN notified, will follow.
--- NOTE | 2020-04-20 11:07 | Hematology/Onc Progress Note ---
Assessment/Plan Assessment/Plan Assessment and Recs # Anemia of iron deficiency, with a ferritin that is less than 50 recentrly --> Anemia workup has been ordered, rule out gi bleed --> recheck ferritin, occult was + --> No evidence of hemolysis is noted, peripheral smear has been reviewed. --> Hgb goal >7. Transfuse prn. --> IRon IV x 5 days started 04/06 as ferritin is low--> ferritin now 290. --> Medications have been reviewed --> low threshold for gi evaluation in case has occult + --> holding xarelto at this time --> hgb trend 8.2-->7.2->8->7.4->7.6-->6.8->7.8 --> GI eval prn # Hypercoagulable disorder is on xarelto for afib with rvr --> reviewed cards recs --> have dw Pcp --> monitor h/h--> per cards for watchman/ablation future # Leukopenia with gram neg pna, uti, sepsis, fevers, leukocytosis, a.flutter, respiratory failure, atx, dony, + ua, atx --> covid is neg --> abx svetlana and micafungin/polymyx-->hola/svetlana-->polymyxin/vanc/micafungin --> as per id recs --> wbc trend 4.5-->4.1-->4 # Respiratory failure, on vent initially 03/2020 --> now extubated, nc prn # Renal failure. --> improved # Diabetes. --> endo prn # Hypertension. --> per cards # Diabetes and hypertension, treatment per primary care team. --> a1c goal <8, acchuchecks qac and qhs # Patient with history of altered mental status. --> metabolic encephalopathy # Seizure history. # Chronic neck pain. # Lactic acidsis # HLD # Obesity # Dvt ppx xarelto (on hold) Appreciate consultation and vanessa RN Subjective HEENT: Denies: no symptoms, eye pain, blurred vision, tearing, double vision, ear pain, ear discharge, nose pain, nose congestion, throat pain, throat swelling, mouth pain, mouth swelling, other Cardiovascular: Denies: no symptoms, chest pain, edema, irregular heart rate, lightheadedness, palpitations, syncope, other Respiratory: Denies: no symptoms, cough, shortness of breath, SOB with excertion, SOB at rest, sputum, wheezing, other Gastrointestinal/Abdominal: Denies: no symptoms, abdomen distended, abdominal pain, black stools, tarry stools, blood in stool, constipated, diarrhea, difficulty swallowing, nausea, poor appetite, poor fluid intake, rectal bleeding , vomiting, other Neurologic/Psychiatric: Denies: no symptoms, anxiety, depressed, emotional problems, headache, numbness, paresthesia, pre-existing deficit, seizure, tingling, tremors, weakness, other Endocrine: Denies: no symptoms, excessive sweating, flushing, intolerance to cold, intolerance to heat, increased hunger, increased thirst, increased urine, unexplained weight gain, unexplained weight loss, other Allergies: Coded Allergies: LISINOPRIL (Verified Allergy, Unknown, Hives, 04/12/14) Subjective 04/20 in general feeling better, team, off [employer], for watchman by Jackie next week Objective Objective Current Medications Medications (Trade) Dose Ordered Sig/Debbie Route PRN Reason Start Time Stop Time Status Last Admin Dose Admin Amiodarone HCl (Cordarone) 200 mg BID ORAL 04/19/20 18:00 07/18/20 08:59 04/20/20 08:23 Bisacodyl (Dulcolax) 10 mg DAILYPRN PRN RECTAL Constipation 04/18/20 14:30 07/17/20 14:29 Dextrose (Dextrose 50%) 25 ml Q30M PRN IV Hypoglycemia 04/18/20 14:30 07/17/20 14:29 Dextrose (Dextrose 50%) 50 ml Q30M PRN IV Hypoglycemia 04/18/20 14:30 07/17/20 14:29 Diltiazem HCl (Cardizem Tab) 90 mg EVERY 6 HOURS ORAL 04/19/20 18:00 05/18/20 21:59 04/20/20 05:01 Diphenhydramine HCl (Benadryl) 25 mg Q6H PRN ORAL Itching/Pruritis 04/18/20 14:30 05/18/20 14:29 Docusate Sodium (Colace) 100 mg EVERY 12 HOURS ORAL 04/18/20 21:00 05/18/20 20:59 Doxazosin Mesylate (Cardura) 4 mg DAILY ORAL 04/19/20 09:00 05/19/20 08:59 04/20/20 08:22 Duloxetine HCl (Cymbalta) 60 mg BID ORAL 04/19/20 18:00 07/17/20 17:59 04/20/20 08:22 Furosemide (Lasix) 40 mg EVERY 12 HOURS ORAL 04/18/20 21:00 05/18/20 20:59 04/20/20 08:21 Gabapentin (Neurontin) 300 mg BEDTIME ORAL 04/18/20 21:00 05/18/20 20:59 04/19/20 21:31 Hydralazine HCl (Apresoline) 50 mg Q6HR ORAL 04/18/20 18:00 07/17/20 17:59 04/20/20 05:01 Lorazepam (Ativan 2mg/ml 1ml) 0.5 mg Q4H PRN IV For Anxiety 04/18/20 14:30 04/25/20 14:29 Magnesium Hydroxide (Mom) 30 ml HSPRN PRN ORAL Constipation 04/18/20 14:30 05/18/20 14:29 Methocarbamol (Robaxin) 500 mg QIDPRN PRN ORAL Muscle Spasm 04/18/20 14:30 05/18/20 14:29 04/20/20 08:23 Micafungin Sodium 100 mg/Sodium Chloride 110 ml @ 110 mls/hr Q24H IVPB 04/18/20 21:00 04/25/20 20:59 04/19/20 21:30 Ondansetron HCl (Zofran) 4 mg Q6H PRN IVP Nausea & Vomiting 04/18/20 14:30 05/18/20 14:29 Oxycodone/ Acetaminophen (Percocet 10/325) 1 tab Q4H PRN ORAL pain 04/18/20 12:45 04/25/20 12:44 04/20/20 08:23 Phosphorus (Phospha 250 Neutral) 250 mg THREE TIMES A DAY ORAL 04/18/20 18:00 05/18/20 17:59 04/20/20 08:22 Polyethylene Glycol (Miralax) 17 gm DAILYPRN PRN ORAL Constipation 04/18/20 14:30 05/18/20 14:29 Polymyxin B Sulfate 079969 units/Dextrose 550 ml @ 550 mls/hr Q12H IV 04/18/20 17:00 04/25/20 16:59 04/20/20 04:44 Potassium Chloride (K-Dur) 40 meq DAILY ORAL 04/19/20 09:00 07/18/20 08:59 04/20/20 08:21 Vancomycin HCl (Vanco pharmacy to dose) 1 ea DAILY PRN MISC Per rx protocol 04/18/20 14:45 05/18/20 14:44 Last 24 Hour Vital Signs Date Time Temp Pulse Resp B/P (MAP) Pulse Ox O2 Delivery O2 Flow Rate FiO2 04/20/20 08:00 97.9 94 20 127/63 (84) 93 04/20/20 05:01 92 136/61 04/20/20 05:01 136/61 04/20/20 04:00 98.6 94 18 136/61 (86) 96 04/20/20 04:00 92 04/20/20 03:20 98.6 04/20/20 00:00 90 04/19/20 23:46 96 97/54 04/19/20 23:46 97/54 04/19/20 23:43 98.6 94 18 97/54 (68) 96 04/19/20 21:00 Room Air 04/19/20 20:00 98.3 93 18 114/76 (89) 95 04/19/20 20:00 94 04/19/20 18:00 89 143/72 04/19/20 18:00 143/72 04/19/20 16:00 87 04/19/20 16:00 98.1 89 18 143/72 (95) 95 04/19/20 13:19 134/66 04/19/20 12:06 96.6 82 20 134/66 (88) 97 04/19/20 12:00 88 04/19/20 09:00 Room Air 04/19/20 08:48 91 144/74 04/19/20 08:22 97.7 91 18 144/74 (97) 96 04/19/20 08:00 89 04/19/20 06:05 139/74 04/19/20 06:05 78 139/74 04/19/20 04:00 97.8 96 19 135/62 (86) 99 04/19/20 04:00 97 04/19/20 00:32 139/74 04/19/20 00:00 98.0 78 20 134/70 (91) 98 04/19/20 00:00 90 04/18/20 22:07 78 139/74 04/18/20 21:00 Room Air 04/18/20 20:00 86 04/18/20 20:00 97.7 85 20 125/63 (83) 99 04/18/20 17:14 140/73 04/18/20 16:30 97.9 91 20 140/73 (95) 96 04/18/20 16:30 Room Air 04/18/20 16:29 93 04/18/20 16:01 98.5 92 18 152/77 100 Room Air 04/18/20 15:02 98.5 92 18 152/77 100 Room Air 04/18/20 13:11 97.9 115 20 154/70 98 Room Air 04/18/20 13:01 147 132/63 04/18/20 12:46 140 103/60 04/18/20 12:00 97.9 138 19 103/60 96 Room Air 04/18/20 11:51 97.9 140 24 103/60 (74) 94 Intake and Output 04/19/20 04/20/20 19:00 07:00 Intake Total 120 ml 500 ml Output Total 1200 ml 1200 ml Balance -1080 ml -700 ml Intake Oral 120 ml 500 ml Output Urine Total 1200 ml 1200 ml # Voids 3 # Bowel Movements 1 Labs Test 04/18/20 12:40 04/19/20 05:00 04/19/20 18:05 04/20/20 05:05 White Blood Count 4.5 K/UL (4.8-10.8) 4.1 K/UL (4.8-10.8) 5.0 K/UL (4.8-10.8) 4.0 K/UL (4.8-10.8) Red Blood Count 3.13 M/UL (4.20-5.40) 2.62 M/UL (4.20-5.40) 2.82 M/UL (4.20-5.40) 2.92 M/UL (4.20-5.40) Hemoglobin 8.0 G/DL (12.0-16.0) 6.8 G/DL (12.0-16.0) 7.4 G/DL (12.0-16.0) 7.8 G/DL (12.0-16.0) Hematocrit 27.0 % (37.0-47.0) 22.7 % (37.0-47.0) 23.9 % (37.0-47.0) 25.3 % (37.0-47.0) Mean Corpuscular Volume 86 FL (80-99) 87 FL (80-99) 85 FL (80-99) 87 FL (80- 99) Mean Corpuscular Hemoglobin 25.6 PG (27.0-31.0) 25.9 PG (27.0-31.0) 26.2 PG (27.0-31.0) 26.8 PG (27.0-31.0) Mean Corpuscular Hemoglobin Concent 29.8 G/DL (32.0-36.0) 29.9 G/DL (32.0-36.0) 30.9 G/DL (32.0-36.0) 30.9 G/DL (32.0-36.0) Red Cell Distribution Width 16.4 % (11.6-14.8) 16.6 % (11.6-14.8) 16.6 % (11.6-14.8) 16.3 % (11.6-14.8) Platelet Count 451 K/UL (150-450) 403 K/UL (150-450) 412 K/UL (150-450) 393 K/UL (150-450) Mean Platelet Volume 6.1 FL (6.5-10.1) 6.3 FL (6.5-10.1) 5.9 FL (6.5-10.1) 6.2 FL (6.5-10.1) Neutrophils (%) (Auto) 64.6 % (45.0-75.0) % (45.0-75.0) % (45.0-75.0) % (45.0-75.0) Lymphocytes (%) (Auto) 20.9 % (20.0-45.0) % (20.0-45.0) % (20.0-45.0) % (20.0-45.0) Monocytes (%) (Auto) 11.6 % (1.0-10.0) % (1.0-10.0) % (1.0-10.0) % (1.0-10.0) Eosinophils (%) (Auto) 1.9 % (0.0-3.0) % (0.0-3.0) % (0.0-3.0) % (0.0-3.0) Basophils (%) (Auto) 1.0 % (0.0-2.0) % (0.0-2.0) % (0.0-2.0) % (0.0-2.0) Prothrombin Time 13.1 SEC (9.30-11.50) Prothromb Time International Ratio 1.2 (0.9-1.1) Activated Partial Thromboplast Time 35 SEC (23-33) Urine Color Pale yellow Urine Appearance Clear Urine pH 8 (4.5-8.0) Urine Specific [place] 1.010 (1.005-1.035) Urine Protein Negative (NEGATIVE) Urine Glucose (UA) Negative (NEGATIVE) Urine Ketones Negative (NEGATIVE) Urine Blood 4+ (NEGATIVE) Urine Nitrite Negative (NEGATIVE) Urine Bilirubin Negative (NEGATIVE) Urine Urobilinogen Normal MG/DL (0.0-1.0) Urine Leukocyte Esterase Negative (NEGATIVE) Urine RBC 40-60 /HPF (0 - 2) Urine WBC 0-2 /HPF (0 - 2) Urine Squamous Epithelial Cells Occasional /LPF Urine Bacteria Occasional /HPF (NONE) Sodium Level 143 MMOL/L (136-145) 141 MMOL/L (136-145) 140 MMOL/L (136-145) Potassium Level 3.0 MMOL/L (3.5-5.1) 3.2 MMOL/L (3.5-5.1) 3.4 MMOL/L (3.5-5.1) Chloride Level 106 MMOL/L (98-107) 104 MMOL/L (98-107) 104 MMOL/L (98-107) Carbon Dioxide Level 27 MMOL/L (21-32) 29 MMOL/L (21-32) 28 MMOL/L (21-32) Anion Gap 10 mmol/L (5-15) 8 mmol/L (5-15) 8 mmol/L (5-15) Blood Urea Nitrogen 9 mg/dL (7-18) 8 mg/dL (7-18) 5 mg/dL (7-18) Creatinine 1.0 MG/DL (0.55-1.30) 1.0 MG/DL (0.55-1.30) 1.1 MG/DL (0.55-1.30) Estimat Glomerular Filtration Rate > 60 mL/min (>60) > 60 mL/min (>60) > 60 mL/min (>60) Glucose Level 99 MG/DL (74-106) 95 MG/DL (74-106) 113 MG/DL (74-106) Calcium Level 8.3 MG/DL (8.5-10.1) 8.1 MG/DL (8.5-10.1) 8.0 MG/DL (8.5-10.1) Phosphorus Level 3.6 MG/DL (2.5-4.9) Magnesium Level 1.2 MG/DL (1.8-2.4) 1.9 MG/DL (1.8-2.4) Total Bilirubin 0.2 MG/DL (0.2-1.0) Aspartate Amino Transf (AST/SGOT) 20 U/L (15-37) Alanine Aminotransferase (ALT/SGPT) < 6 U/L (12-78) Alkaline Phosphatase 86 U/L (46-116) Troponin I 0.012 ng/mL (0.000-0.056) Pro-B-Type Natriuretic Peptide 2346 pg/mL (0-125) Total Protein 6.2 G/DL (6.4-8.2) Albumin 1.6 G/DL (3.4-5.0) Globulin 4.6 g/dL Albumin/Globulin Ratio 0.3 (1.0-2.7) Urine Opiates Screen Positive (NEGATIVE) Urine Barbiturates Screen Negative (NEGATIVE) Phencyclidine (PCP) Screen Negative (NEGATIVE) Urine Amphetamines Screen Negative (NEGATIVE) Urine Benzodiazepines Screen Negative (NEGATIVE) Urine Cocaine Screen Negative (NEGATIVE) Urine Marijuana (THC) Screen Negative (NEGATIVE) Differential Total Cells Counted 100 100 Neutrophils % (Manual) 59 % (45-75) 56 % (45-75) Lymphocytes % (Manual) 27 % (20-45) 30 % (20-45) Monocytes % (Manual) 10 % (1-10) 6 % (1-10) Eosinophils % (Manual) 4 % (0-3) 7 % (0-3) Basophils % (Manual) 0 % (0-2) 1 % (0-2) Band Neutrophils 0 % (0-8) 0 % (0-8) Platelet Estimate Adequate Adequate Platelet Morphology Normal Normal Hypochromasia 1+ 1+ Anisocytosis 1+ 1+ Iron Level 25 ug/dL (50-175) Total Iron Binding Capacity 100 ug/dL (250-450) Percent Iron Saturation 25 % (15-50) Unsaturated Iron Binding 75 ug/dL (112-346) Ferritin 290 NG/ML (8-388) Polychromasia 1+ Vancomycin Level Trough 29.9 ug/mL (5.0-12.0) Height (Feet): 5 Height (Inches): 10.00 Weight (Pounds): 200 Objective Physical Exam Sp02 EP Interpretation: reviewed, normal General: Patient appears chronically ill Head: normocephalic, atraumatic Respiratory: , crackles - both lower lobes Cardiovascular: tachycardia Gastrointestinal: non tender, soft Musculoskeletal: other - Patient appears chronically debilitated both lower extremities are extended Neurologic: other - Some verbal response, but chronic disability Skin: no rash Virgil Wray MD Apr 20, 2020 11:07
--- NOTE | 2020-04-20 11:35 | Pulmonology Progress Note ---
Subjective ROS Limited/Unobtainable: No Interval Events: None new Constitutional: Reports: no symptoms, fatigue; Denies: fever HEENT: Repors: no symptoms Respiratory: Reports: no symptoms Cardiovascular: Reports: no symptoms Gastrointestinal/Abdominal: Reports: no symptoms; Denies: nausea, vomiting, diarrhea Genitourinary: Reports: no symptoms Psychiatric: Denies: depression Skin: Denies: rash Musculoskeletal: Denies: pain Allergies: Coded Allergies: LISINOPRIL (Verified Allergy, Unknown, Hives, 04/12/14) Objective Last 24 Hour Vital Signs Date Time Temp Pulse Resp B/P (MAP) Pulse Ox O2 Delivery O2 Flow Rate FiO2 04/20/20 08:00 97.9 94 20 127/63 (84) 93 04/20/20 05:01 92 136/61 04/20/20 05:01 136/61 04/20/20 04:00 98.6 94 18 136/61 (86) 96 04/20/20 04:00 92 04/20/20 03:20 98.6 04/20/20 00:00 90 04/19/20 23:46 96 97/54 04/19/20 23:46 97/54 04/19/20 23:43 98.6 94 18 97/54 (68) 96 04/19/20 21:00 Room Air 04/19/20 20:00 98.3 93 18 114/76 (89) 95 04/19/20 20:00 94 04/19/20 18:00 89 143/72 04/19/20 18:00 143/72 04/19/20 16:00 87 04/19/20 16:00 98.1 89 18 143/72 (95) 95 04/19/20 13:19 134/66 04/19/20 12:06 96.6 82 20 134/66 (88) 97 04/19/20 12:00 88 Intake and Output 04/19/20 04/20/20 19:00 07:00 Intake Total 120 ml 500 ml Output Total 1200 ml 1200 ml Balance -1080 ml -700 ml Intake Oral 120 ml 500 ml Output Urine Total 1200 ml 1200 ml # Voids 3 # Bowel Movements 1 General Appearance: no acute distress HEENT: normocephalic Respiratory: chest wall non-tender Cardiovascular: normal peripheral pulses Abdomen: normal bowel sounds Microbiology Date/Time Source Procedure Growth Status 04/18/20 14:50 Nasal Nares MRSA Culture - Final NO METHICILLIN RESISTANT STAPH AUREUS... Complete 04/18/20 14:50 Rectum - Final NO CARBAPENEM-RESISTANT ENTEROBACTERI... Complete 04/18/20 14:50 Rectum VRE Culture - Final Enterococcus Faecalis - Vre Complete Laboratory Tests 04/19/20 18:05: White Blood Count 5.0, Red Blood Count 2.82L, Hemoglobin 7.4L, Hematocrit 23.9L , Mean Corpuscular Volume 85, Mean Corpuscular Hemoglobin 26.2L, Mean Corpuscular Hemoglobin Concent 30.9L, Red Cell Distribution Width 16.6H, Platelet Count 412, Mean Platelet Volume 5.9L, Neutrophils (%) (Auto) , Lymphocytes (%) (Auto) , Monocytes (%) (Auto) , Eosinophils (%) (Auto) , Basophils (%) (Auto) , Differential Total Cells Counted 100, Neutrophils % ( Manual) 56, Lymphocytes % (Manual) 30, Monocytes % (Manual) 6, Eosinophils % ( Manual) 7H, Basophils % (Manual) 1, Band Neutrophils 0, Platelet Estimate Adequate, Platelet Morphology Normal, Polychromasia 1+, Hypochromasia 1+, Anisocytosis 1+ 04/20/20 05:05: White Blood Count 4.0L, Red Blood Count 2.92L, Hemoglobin 7.8L, Hematocrit 25.3L , Mean Corpuscular Volume 87, Mean Corpuscular Hemoglobin 26.8L, Mean Corpuscular Hemoglobin Concent 30.9L, Red Cell Distribution Width 16.3H, Platelet Count 393, Mean Platelet Volume 6.2L, Neutrophils (%) (Auto) , Lymphocytes (%) (Auto) , Monocytes (%) (Auto) , Eosinophils (%) (Auto) , Basophils (%) (Auto) , Sodium Level 140, Potassium Level 3.4L, Chloride Level 104, Carbon Dioxide Level 28, Anion Gap 8, Blood Urea Nitrogen 5L, Creatinine 1.1, Estimat Glomerular Filtration Rate > 60, Glucose Level 113H, Calcium Level 8.0L, Vancomycin Level Trough 29.9H Current Medications Medications (Trade) Dose Ordered Sig/Debbie Route PRN Reason Start Time Stop Time Status Last Admin Dose Admin Amiodarone HCl (Cordarone) 200 mg BID ORAL 04/19/20 18:00 07/18/20 08:59 04/20/20 08:23 Bisacodyl (Dulcolax) 10 mg DAILYPRN PRN RECTAL Constipation 04/18/20 14:30 07/17/20 14:29 Dextrose (Dextrose 50%) 25 ml Q30M PRN IV Hypoglycemia 04/18/20 14:30 07/17/20 14:29 Dextrose (Dextrose 50%) 50 ml Q30M PRN IV Hypoglycemia 04/18/20 14:30 07/17/20 14:29 Diltiazem HCl (Cardizem Tab) 90 mg EVERY 6 HOURS ORAL 04/19/20 18:00 05/18/20 21:59 04/20/20 05:01 Diphenhydramine HCl (Benadryl) 25 mg Q6H PRN ORAL Itching/Pruritis 04/18/20 14:30 05/18/20 14:29 Docusate Sodium (Colace) 100 mg EVERY 12 HOURS ORAL 04/18/20 21:00 05/18/20 20:59 Doxazosin Mesylate (Cardura) 4 mg DAILY ORAL 04/19/20 09:00 05/19/20 08:59 04/20/20 08:22 Duloxetine HCl (Cymbalta) 60 mg BID ORAL 04/19/20 18:00 07/17/20 17:59 04/20/20 08:22 Furosemide (Lasix) 40 mg EVERY 12 HOURS ORAL 04/18/20 21:00 05/18/20 20:59 04/20/20 08:21 Gabapentin (Neurontin) 300 mg BEDTIME ORAL 04/18/20 21:00 05/18/20 20:59 04/19/20 21:31 Hydralazine HCl (Apresoline) 50 mg Q6HR ORAL 04/18/20 18:00 07/17/20 17:59 04/20/20 05:01 Lorazepam (Ativan 2mg/ml 1ml) 0.5 mg Q4H PRN IV For Anxiety 04/18/20 14:30 04/25/20 14:29 Magnesium Hydroxide (Mom) 30 ml HSPRN PRN ORAL Constipation 04/18/20 14:30 05/18/20 14:29 Methocarbamol (Robaxin) 500 mg QIDPRN PRN ORAL Muscle Spasm 04/18/20 14:30 05/18/20 14:29 04/20/20 08:23 Micafungin Sodium 100 mg/Sodium Chloride 110 ml @ 110 mls/hr Q24H IVPB 04/18/20 21:00 04/25/20 20:59 04/19/20 21:30 Ondansetron HCl (Zofran) 4 mg Q6H PRN IVP Nausea & Vomiting 04/18/20 14:30 05/18/20 14:29 Oxycodone/ Acetaminophen (Percocet 10/325) 1 tab Q4H PRN ORAL pain 04/18/20 12:45 04/25/20 12:44 04/20/20 08:23 Phosphorus (Phospha 250 Neutral) 250 mg THREE TIMES A DAY ORAL 04/18/20 18:00 05/18/20 17:59 04/20/20 08:22 Polyethylene Glycol (Miralax) 17 gm DAILYPRN PRN ORAL Constipation 04/18/20 14:30 05/18/20 14:29 Polymyxin B Sulfate 079990 units/Dextrose 550 ml @ 550 mls/hr Q12H IV 04/18/20 17:00 04/25/20 16:59 04/20/20 04:44 Potassium Chloride (K-Dur) 40 meq DAILY ORAL 04/19/20 09:00 07/18/20 08:59 04/20/20 08:21 Vancomycin HCl (Vanco pharmacy to dose) 1 ea DAILY PRN MISC Per rx protocol 04/18/20 14:45 05/18/20 14:44 Assessment/Plan Assessment/Plan IMPRESSION: 1. Small left pleural effusion. 2. Bibasilar infiltrates. 3. History of chronic pain. 4. Atrial fibrillation. 5. detention resident. DISCUSSION: Continue medications including Cardizem. Resume home medications. Continue oxygen and pulmonary hygiene. Seven Yao Omar Syed MD Apr 20, 2020 11:35
[2020-04-20 12:00] VITALS: BP 142/70
--- NOTE | 2020-04-20 12:00 | NUR ---
NURSE NOTES: Low airloss mattress in place.
--- NOTE | 2020-04-20 12:13 | Cardiology Progress Note ---
Assessment/Plan Status: stable Assessment/Plan Assessment/Plan Assessment/Plan: 69-year-old female with PMH of A. fib, chronic pain, diverticulitis, HTN, HLD who presents from SNF for uncontrolled chronic pain and A. fib RVR. AFIB Hypokalemia Pleural effusion HTN HLD Recommendations: -Converted to NSR -Continue PO amiodarone 200 mg BID -Continue cardizem 90 mg q6 -Continue xarelto -Previous stress test not tolerated -CV status -Outpatient cardiac cath and watchman next week -Atrial flutter ablation with EP -ok to d/c Thursday Subjective Cardiovascular: Reports: no symptoms Respiratory: Reports: no symptoms Gastrointestinal/Abdominal: Reports: no symptoms Genitourinary: Reports: no symptoms Subjective no acute events, remains in NSR rates 80s no bleeding no CP/SOB Objective Last 24 Hour Vital Signs Date Time Temp Pulse Resp B/P (MAP) Pulse Ox O2 Delivery O2 Flow Rate FiO2 04/20/20 11:45 88 142/70 04/20/20 11:45 142/70 04/20/20 09:00 Room Air 04/20/20 08:00 97.9 94 20 127/63 (84) 93 04/20/20 08:00 99 04/20/20 05:01 92 136/61 04/20/20 05:01 136/61 04/20/20 04:00 98.6 94 18 136/61 (86) 96 04/20/20 04:00 92 04/20/20 03:20 98.6 04/20/20 00:00 90 04/19/20 23:46 96 97/54 04/19/20 23:46 97/54 04/19/20 23:43 98.6 94 18 97/54 (68) 96 04/19/20 21:00 Room Air 04/19/20 20:00 98.3 93 18 114/76 (89) 95 04/19/20 20:00 94 04/19/20 18:00 89 143/72 04/19/20 18:00 143/72 04/19/20 16:00 87 04/19/20 16:00 98.1 89 18 143/72 (95) 95 04/19/20 13:19 134/66 General Appearance: no apparent distress, alert EENT: PERRL/EOMI, normal ENT inspection, TMs normal, pharynx normal Neck: non-tender, normal alignment, supple Rhythm: NSR Cardiovascular: normal peripheral pulses, normal rate, regular rhythm Respiratory/Chest: chest wall non-tender, lungs clear, normal breath sounds Abdomen: normal bowel sounds, non tender, soft, no organomegaly Extremities: normal range of motion, non-tender, normal inspection Intake and Output 04/19/20 04/20/20 19:00 07:00 Intake Total 120 ml 500 ml Output Total 1200 ml 1200 ml Balance -1080 ml -700 ml Intake Oral 120 ml 500 ml Output Urine Total 1200 ml 1200 ml # Voids 3 # Bowel Movements 1 Laboratory Tests Test 04/19/20 18:05 04/20/20 05:05 White Blood Count 5.0 K/UL (4.8-10.8) 4.0 K/UL (4.8-10.8) L Red Blood Count 2.82 M/UL (4.20-5.40) L 2.92 M/UL (4.20-5.40) L Hemoglobin 7.4 G/DL (12.0-16.0) L 7.8 G/DL (12.0-16.0) L Hematocrit 23.9 % (37.0-47.0) L 25.3 % (37.0-47.0) L Mean Corpuscular Volume 85 FL (80-99) 87 FL (80-99) Mean Corpuscular Hemoglobin 26.2 PG (27.0-31.0) L 26.8 PG (27.0-31.0) L Mean Corpuscular Hemoglobin Concent 30.9 G/DL (32.0-36.0) L 30.9 G/DL (32.0-36.0) L Red Cell Distribution Width 16.6 % (11.6-14.8) H 16.3 % (11.6-14.8) H Platelet Count 412 K/UL (150-450) 393 K/UL (150-450) Mean Platelet Volume 5.9 FL (6.5-10.1) L 6.2 FL (6.5-10.1) L Neutrophils (%) (Auto) % (45.0-75.0) % (45.0-75.0) Lymphocytes (%) (Auto) % (20.0-45.0) % (20.0-45.0) Monocytes (%) (Auto) % (1.0-10.0) % (1.0-10.0) Eosinophils (%) (Auto) % (0.0-3.0) % (0.0-3.0) Basophils (%) (Auto) % (0.0-2.0) % (0.0-2.0) Differential Total Cells Counted 100 Neutrophils % (Manual) 56 % (45-75) Lymphocytes % (Manual) 30 % (20-45) Monocytes % (Manual) 6 % (1-10) Eosinophils % (Manual) 7 % (0-3) H Basophils % (Manual) 1 % (0-2) Band Neutrophils 0 % (0-8) Platelet Estimate Adequate Platelet Morphology Normal Polychromasia 1+ Hypochromasia 1+ Anisocytosis 1+ Sodium Level 140 MMOL/L (136-145) Potassium Level 3.4 MMOL/L (3.5-5.1) L Chloride Level 104 MMOL/L (98-107) Carbon Dioxide Level 28 MMOL/L (21-32) Anion Gap 8 mmol/L (5-15) Blood Urea Nitrogen 5 mg/dL (7-18) L Creatinine 1.1 MG/DL (0.55-1.30) Estimat Glomerular Filtration Rate > 60 mL/min (>60) Glucose Level 113 MG/DL (74-106) H Calcium Level 8.0 MG/DL (8.5-10.1) L Vancomycin Level Trough 29.9 ug/mL (5.0-12.0) H Microbiology Date/Time Source Procedure Growth Status 04/18/20 14:50 Nasal Nares MRSA Culture - Final NO METHICILLIN RESISTANT STAPH AUREUS... Complete 04/18/20 14:50 Rectum - Final NO CARBAPENEM-RESISTANT ENTEROBACTERI... Complete 04/18/20 14:50 Rectum VRE Culture - Final Enterococcus Faecalis - Vre Complete Rafat Crooks MD Apr 20, 2020 12:13
--- NOTE | 2020-04-20 12:34 | Cardiac Electrophysiology PN ---
Assessment/Plan Assessment/Plan 1. Recurrent atrial flutter with rapid ventricular response. Continue amiodarone 200 mg b.i.d. and Cardizem 90 mg po every 6 hours for better rate control. Currently off anticoagulation as hemoglobin is profoundly low at 6. EPS and ablation at [facility] as out patient 2. Severe anemia, s/p blood transfusion. 3. Hypertension. On Cardizem, Lasix 40 mg IV b.i.d. and hydralazine 50 mg every 6 hours. 4. Hyperlipidemia, on Lipitor. 5. Pleural effusion. Subjective Subjective Had atrial fluter with RVR last night and this am again but self terminated. No CP Objective Last 24 Hour Vital Signs Date Time Temp Pulse Resp B/P (MAP) Pulse Ox O2 Delivery O2 Flow Rate FiO2 04/20/20 11:45 88 142/70 04/20/20 11:45 142/70 04/20/20 09:00 Room Air 04/20/20 08:00 97.9 94 20 127/63 (84) 93 04/20/20 08:00 99 04/20/20 05:01 92 136/61 04/20/20 05:01 136/61 04/20/20 04:00 98.6 94 18 136/61 (86) 96 04/20/20 04:00 92 04/20/20 03:20 98.6 04/20/20 00:00 90 04/19/20 23:46 96 97/54 04/19/20 23:46 97/54 04/19/20 23:43 98.6 94 18 97/54 (68) 96 04/19/20 21:00 Room Air 04/19/20 20:00 98.3 93 18 114/76 (89) 95 04/19/20 20:00 94 04/19/20 18:00 89 143/72 04/19/20 18:00 143/72 04/19/20 16:00 87 04/19/20 16:00 98.1 89 18 143/72 (95) 95 04/19/20 13:19 134/66 Intake and Output 04/19/20 04/20/20 19:00 07:00 Intake Total 120 ml 500 ml Output Total 1200 ml 1200 ml Balance -1080 ml -700 ml Intake Oral 120 ml 500 ml Output Urine Total 1200 ml 1200 ml # Voids 3 # Bowel Movements 1 Laboratory Tests Test 04/19/20 18:05 04/20/20 05:05 White Blood Count 5.0 K/UL (4.8-10.8) 4.0 K/UL (4.8-10.8) L Red Blood Count 2.82 M/UL (4.20-5.40) L 2.92 M/UL (4.20-5.40) L Hemoglobin 7.4 G/DL (12.0-16.0) L 7.8 G/DL (12.0-16.0) L Hematocrit 23.9 % (37.0-47.0) L 25.3 % (37.0-47.0) L Mean Corpuscular Volume 85 FL (80-99) 87 FL (80-99) Mean Corpuscular Hemoglobin 26.2 PG (27.0-31.0) L 26.8 PG (27.0-31.0) L Mean Corpuscular Hemoglobin Concent 30.9 G/DL (32.0-36.0) L 30.9 G/DL (32.0-36.0) L Red Cell Distribution Width 16.6 % (11.6-14.8) H 16.3 % (11.6-14.8) H Platelet Count 412 K/UL (150-450) 393 K/UL (150-450) Mean Platelet Volume 5.9 FL (6.5-10.1) L 6.2 FL (6.5-10.1) L Neutrophils (%) (Auto) % (45.0-75.0) % (45.0-75.0) Lymphocytes (%) (Auto) % (20.0-45.0) % (20.0-45.0) Monocytes (%) (Auto) % (1.0-10.0) % (1.0-10.0) Eosinophils (%) (Auto) % (0.0-3.0) % (0.0-3.0) Basophils (%) (Auto) % (0.0-2.0) % (0.0-2.0) Differential Total Cells Counted 100 Neutrophils % (Manual) 56 % (45-75) Lymphocytes % (Manual) 30 % (20-45) Monocytes % (Manual) 6 % (1-10) Eosinophils % (Manual) 7 % (0-3) H Basophils % (Manual) 1 % (0-2) Band Neutrophils 0 % (0-8) Platelet Estimate Adequate Platelet Morphology Normal Polychromasia 1+ Hypochromasia 1+ Anisocytosis 1+ Sodium Level 140 MMOL/L (136-145) Potassium Level 3.4 MMOL/L (3.5-5.1) L Chloride Level 104 MMOL/L (98-107) Carbon Dioxide Level 28 MMOL/L (21-32) Anion Gap 8 mmol/L (5-15) Blood Urea Nitrogen 5 mg/dL (7-18) L Creatinine 1.1 MG/DL (0.55-1.30) Estimat Glomerular Filtration Rate > 60 mL/min (>60) Glucose Level 113 MG/DL (74-106) H Calcium Level 8.0 MG/DL (8.5-10.1) L Vancomycin Level Trough 29.9 ug/mL (5.0-12.0) H Microbiology Date/Time Source Procedure Growth Status 04/18/20 14:50 Nasal Nares MRSA Culture - Final NO METHICILLIN RESISTANT STAPH AUREUS... Complete 04/18/20 14:50 Rectum - Final NO CARBAPENEM-RESISTANT ENTEROBACTERI... Complete 04/18/20 14:50 Rectum VRE Culture - Final Enterococcus Faecalis - Vre Complete Objective NECK: No JVD. LUNGS: Clear. CARDIOVASCULAR: Irregular S1 and S2 with no gallop or murmur. ABDOMEN: Soft. EXTREMITIES: 1+ pitting edema. Carlos Dean MD Apr 20, 2020 12:34
[2020-04-20] MEDS ORDERED: Naloxone 0.4mg/ml Inj IVP PRN (14:00)
--- NOTE | 2020-04-20 14:24 | Surgery Progress Note ---
Surgery Progress Note Subjective Additional Comments improved feels better no n/v/f/c states she may want to go home after this instead of a facility Objective Last 24 Hour Vital Signs Date Time Temp Pulse Resp B/P (MAP) Pulse Ox O2 Delivery O2 Flow Rate FiO2 04/20/20 12:00 91 04/20/20 12:00 97.2 87 20 142/70 (94) 95 04/20/20 11:45 88 142/70 04/20/20 11:45 142/70 04/20/20 09:00 Room Air 04/20/20 08:00 97.9 94 20 127/63 (84) 93 04/20/20 08:00 99 04/20/20 05:01 92 136/61 04/20/20 05:01 136/61 04/20/20 04:00 98.6 94 18 136/61 (86) 96 04/20/20 04:00 92 04/20/20 03:20 98.6 04/20/20 00:00 90 04/19/20 23:46 96 97/54 04/19/20 23:46 97/54 04/19/20 23:43 98.6 94 18 97/54 (68) 96 04/19/20 21:00 Room Air 04/19/20 20:00 98.3 93 18 114/76 (89) 95 04/19/20 20:00 94 04/19/20 18:00 89 143/72 04/19/20 18:00 143/72 04/19/20 16:00 87 04/19/20 16:00 98.1 89 18 143/72 (95) 95 I&O Intake and Output 04/19/20 04/20/20 19:00 07:00 Intake Total 120 ml 500 ml Output Total 1200 ml 1200 ml Balance -1080 ml -700 ml Intake Oral 120 ml 500 ml Output Urine Total 1200 ml 1200 ml # Voids 3 # Bowel Movements 1 Dressing: other Wound: other Drains: other Cardiovascular: RSR Respiratory: decreased breath sounds Abdomen: soft, non-tender, present bowel sounds Extremities: edema, no tenderness, no cyanosis Laboratory Tests Test 04/19/20 18:05 04/20/20 05:05 White Blood Count 5.0 K/UL (4.8-10.8) 4.0 K/UL (4.8-10.8) L Red Blood Count 2.82 M/UL (4.20-5.40) L 2.92 M/UL (4.20-5.40) L Hemoglobin 7.4 G/DL (12.0-16.0) L 7.8 G/DL (12.0-16.0) L Hematocrit 23.9 % (37.0-47.0) L 25.3 % (37.0-47.0) L Mean Corpuscular Volume 85 FL (80-99) 87 FL (80-99) Mean Corpuscular Hemoglobin 26.2 PG (27.0-31.0) L 26.8 PG (27.0-31.0) L Mean Corpuscular Hemoglobin Concent 30.9 G/DL (32.0-36.0) L 30.9 G/DL (32.0-36.0) L Red Cell Distribution Width 16.6 % (11.6-14.8) H 16.3 % (11.6-14.8) H Platelet Count 412 K/UL (150-450) 393 K/UL (150-450) Mean Platelet Volume 5.9 FL (6.5-10.1) L 6.2 FL (6.5-10.1) L Neutrophils (%) (Auto) % (45.0-75.0) % (45.0-75.0) Lymphocytes (%) (Auto) % (20.0-45.0) % (20.0-45.0) Monocytes (%) (Auto) % (1.0-10.0) % (1.0-10.0) Eosinophils (%) (Auto) % (0.0-3.0) % (0.0-3.0) Basophils (%) (Auto) % (0.0-2.0) % (0.0-2.0) Differential Total Cells Counted 100 Neutrophils % (Manual) 56 % (45-75) Lymphocytes % (Manual) 30 % (20-45) Monocytes % (Manual) 6 % (1-10) Eosinophils % (Manual) 7 % (0-3) H Basophils % (Manual) 1 % (0-2) Band Neutrophils 0 % (0-8) Platelet Estimate Adequate Platelet Morphology Normal Polychromasia 1+ Hypochromasia 1+ Anisocytosis 1+ Sodium Level 140 MMOL/L (136-145) Potassium Level 3.4 MMOL/L (3.5-5.1) L Chloride Level 104 MMOL/L (98-107) Carbon Dioxide Level 28 MMOL/L (21-32) Anion Gap 8 mmol/L (5-15) Blood Urea Nitrogen 5 mg/dL (7-18) L Creatinine 1.1 MG/DL (0.55-1.30) Estimat Glomerular Filtration Rate > 60 mL/min (>60) Glucose Level 113 MG/DL (74-106) H Calcium Level 8.0 MG/DL (8.5-10.1) L Vancomycin Level Trough 29.9 ug/mL (5.0-12.0) H Plan Problems: (1) Atrial flutter Assessment & Plan: Assessment/Plan: (1) Atrial flutter (2) Hypertension (3) Acute encephalopathy (4) VENTURA (acute kidney injury) (5) Acute and chronic respiratory failure with hypoxia (6) Abscess (7) Fistula (8) Sciatica neuralgia (9) Uncontrolled seizures (10) Forgetfulness (11) Sacral decubitus ulcer Assessment & Plan: Patient identified to have a sacral deep tissue injury upon admission air mattress prior and will order while in admission Care plan initiated (12) Chronic back pain (13) Overdose of opiate or related narcotic (14) Cellulitis of left leg (15) Pericolonic abscess due to diverticulitis (16) Ventral incisional hernia Assessment & Plan: History of colon resection colostomy Ventral incisional hernia reducible No acute invention monitor parastomal hernia stable ostomy viable and functional no acute intervention planned unlikely etiology of pain (17) Chronic pain of both knees (18) Dehydration (19) Hyperkalemia (20) Sepsis Assessment & Plan: Patient reports not liking current diet texture of Moist Puree with Thin Liquids. Patient completed PO intake of solids (crackers), Patient's swallow is grossly functional. Plan: 1. Upgrade Diet Texture to Soft Solids and continue Thin Liquids; type/ supplements per RD. 2. Nursing to assist Patient with oral care BID. DAILY ESTIMATED NEEDS: Needs based on Pulmonary, sepsis, wound, VENTURA 75.8kg adj 20-30 kcals/kg 3991-4383 total kcals 1.25-1.5 g protein/kg 94-114 g total protein 25-30 mL/kg 7749-6451 total fluid mLs NUTRITION DIAGNOSIS: Swallowing difficulty r/t respiratory status as evidenced by pt orally intubated, on NGT feeds-> now extubated, pending PARTS DEPARTMENT SUPERVISOR eval. PO DIET RECOMMENDATIONS-->>> Cardiac diet / texture per PARTS DEPARTMENT SUPERVISOR ENTERAL NUTRITION RECOMMENDATIONS: VITAL AF 1.2 @55ml/hr x24 hrs to provide 1320ml, 1584 kcal, 99g pro, 1071ml free H2O - Maintain at goal as tolerated if not cleared for oral diet by PARTS DEPARTMENT SUPERVISOR - Flush per MD/ HOB over 30 degree ADDITIONAL RECOMMENDATIONS: 1) Maintain calibrated bed scale wts (248lbs vs 217lbs last adm) 2) Monitor renal fxn and lytes closely, need for renal formula Creat wnl; lytes low (K,phos,mg) 3) Wound healing: ZnSO4 220mg QD x 10 days+ Boris BID via NGT hold vit C until renal fxn improves 4) NISS w/ TF, h/o DM 5) Monitor po intake if cleared for oral diet; need for snacks/supplements Julian Iglesias Apr 20, 2020 14:24
[2020-04-20 16:00] VITALS: BP 126/60
--- NOTE | 2020-04-20 16:32 | Infectious Diseases Prog Note ---
Assessment/Plan Assessment/Plan 1. hx esbl e.coli pna/acinetobacter pna, uti, sepsis, fevers, leukocytosis, a.flutter, respiratory failure, atx, dony, + ua, atx fungemia risk -s/p treatment - polymyxin, micafungin and vancomycin x 1 day - finish 2 week tx course for MDR pna - blood cultures negative - covid-19 testing negative x 4 - remove isolation - monitor labs - clinically stable 2. Respiratory failure, on vent. 3. Renal failure. 4. Diabetes. 5. Hypertension. 6. Diabetes and hypertension, treatment per primary care team. 7. Patient with history of altered mental status. 8. Seizure history. 9. Chronic neck pain. 10. Acute kidney injury and renal failure. 11. Allergies to lisinopril. 12. Social history is negative. 13. Family history is noncontributory. 14. MAR was noted. 15. Case was discussed with RN. 16. ICU care. 17. Skin care. 18. Continue treatment per primary consultants. Subjective Constitutional: Denies: fever HEENT: Denies: congestion Respiratory: Denies: shortness of breath Cardiovascular: Denies: chest pain Gastrointestinal/Abdominal: Denies: nausea, vomiting, diarrhea Genitourinary: Reports: other - + weiss Psychiatric: Denies: depression Skin: Denies: rash Hematologic: Denies: bleeding Musculoskeletal: Denies: pain Allergies: Coded Allergies: LISINOPRIL (Verified Allergy, Unknown, Hives, 04/12/14) Objective Last 24 Hour Vital Signs Date Time Temp Pulse Resp B/P (MAP) Pulse Ox O2 Delivery O2 Flow Rate FiO2 04/20/20 16:00 97.3 88 20 126/60 (82) 96 04/20/20 12:00 91 04/20/20 12:00 97.2 87 20 142/70 (94) 95 04/20/20 11:45 88 142/70 04/20/20 11:45 142/70 04/20/20 09:00 Room Air 04/20/20 08:00 97.9 94 20 127/63 (84) 93 04/20/20 08:00 99 04/20/20 05:01 92 136/61 04/20/20 05:01 136/61 04/20/20 04:00 98.6 94 18 136/61 (86) 96 04/20/20 04:00 92 04/20/20 03:20 98.6 04/20/20 00:00 90 04/19/20 23:46 96 97/54 04/19/20 23:46 97/54 04/19/20 23:43 98.6 94 18 97/54 (68) 96 04/19/20 21:00 Room Air 04/19/20 20:00 98.3 93 18 114/76 (89) 95 04/19/20 20:00 94 04/19/20 18:00 89 143/72 04/19/20 18:00 143/72 Height (Feet): 5 Height (Inches): 10.00 Weight (Pounds): 200 General Appearance: no acute distress HEENT: normocephalic, atraumatic, anicteric, mucous membranes moist Respiratory/Chest: crackles/rales, rhonchi - bilaterally Cardiovascular: normal rate, regular rhythm, no gallop/murmur, no JVD Abdomen: normal bowel sounds, soft, non tender, no organomegaly, non distended Genitourinary: other - + weiss - urine slt cloudy Extremities: no cyanosis Skin: no rash Neurologic/Psychiatric: director of culture II-XII grossly normal, alert, oriented x 3, responsive Lymphatic: no neck adenopathy, no groin adenopathy Musculoskeletal: no effusion Chest x-ray - 04/18/20 - Procedure: XRAY Chest 1v Indication: Tachypnea Technique: One view of the chest Comparison: 04/13/2020 Findings: There inspiration currently. Previously demonstrated left suprahilar and perihilar infiltrates, right midlung infiltrate are probably unchanged left- sided pleural effusion appears slightly increased. The heart size is normal. Left arm PICC is now present Impression: Slightly increased left pleural effusion Stable bilateral infiltrates Chest x-ray - 04/20/20 - FINDINGS/IMPRESSION: Left upper extremity PICC line in the superior vena cava. Airspace consolidation with bronchiectasis within the medial aspect left upper lobe. Mild consolidation within the inferior aspect of the right lower lobe. Right perihilar opacity. Infiltrate in these areas are not excluded. No pleural effusion or pneumothorax. The heart size is enlarged. The aorta is calcified. Microbiology Date/Time Source Procedure Growth Status 04/18/20 14:50 Nasal Nares MRSA Culture - Final NO METHICILLIN RESISTANT STAPH AUREUS... Complete 04/18/20 14:50 Rectum - Final NO CARBAPENEM-RESISTANT ENTEROBACTERI... Complete 04/18/20 14:50 Rectum VRE Culture - Final Enterococcus Faecalis - Vre Complete Laboratory Tests Test 04/19/20 18:05 04/20/20 05:05 White Blood Count 5.0 K/UL (4.8-10.8) 4.0 K/UL (4.8-10.8) L Red Blood Count 2.82 M/UL (4.20-5.40) L 2.92 M/UL (4.20-5.40) L Hemoglobin 7.4 G/DL (12.0-16.0) L 7.8 G/DL (12.0-16.0) L Hematocrit 23.9 % (37.0-47.0) L 25.3 % (37.0-47.0) L Mean Corpuscular Volume 85 FL (80-99) 87 FL (80-99) Mean Corpuscular Hemoglobin 26.2 PG (27.0-31.0) L 26.8 PG (27.0-31.0) L Mean Corpuscular Hemoglobin Concent 30.9 G/DL (32.0-36.0) L 30.9 G/DL (32.0-36.0) L Red Cell Distribution Width 16.6 % (11.6-14.8) H 16.3 % (11.6-14.8) H Platelet Count 412 K/UL (150-450) 393 K/UL (150-450) Mean Platelet Volume 5.9 FL (6.5-10.1) L 6.2 FL (6.5-10.1) L Neutrophils (%) (Auto) % (45.0-75.0) % (45.0-75.0) Lymphocytes (%) (Auto) % (20.0-45.0) % (20.0-45.0) Monocytes (%) (Auto) % (1.0-10.0) % (1.0-10.0) Eosinophils (%) (Auto) % (0.0-3.0) % (0.0-3.0) Basophils (%) (Auto) % (0.0-2.0) % (0.0-2.0) Differential Total Cells Counted 100 Neutrophils % (Manual) 56 % (45-75) Lymphocytes % (Manual) 30 % (20-45) Monocytes % (Manual) 6 % (1-10) Eosinophils % (Manual) 7 % (0-3) H Basophils % (Manual) 1 % (0-2) Band Neutrophils 0 % (0-8) Platelet Estimate Adequate Platelet Morphology Normal Polychromasia 1+ Hypochromasia 1+ Anisocytosis 1+ Sodium Level 140 MMOL/L (136-145) Potassium Level 3.4 MMOL/L (3.5-5.1) L Chloride Level 104 MMOL/L (98-107) Carbon Dioxide Level 28 MMOL/L (21-32) Anion Gap 8 mmol/L (5-15) Blood Urea Nitrogen 5 mg/dL (7-18) L Creatinine 1.1 MG/DL (0.55-1.30) Estimat Glomerular Filtration Rate > 60 mL/min (>60) Glucose Level 113 MG/DL (74-106) H Calcium Level 8.0 MG/DL (8.5-10.1) L Vancomycin Level Trough 29.9 ug/mL (5.0-12.0) H Current Medications Medications (Trade) Dose Ordered Sig/Debbie Route PRN Reason Start Time Stop Time Status Last Admin Dose Admin Amiodarone HCl (Cordarone) 200 mg BID ORAL 04/19/20 18:00 07/18/20 08:59 04/20/20 08:23 Bisacodyl (Dulcolax) 10 mg DAILYPRN PRN RECTAL Constipation 04/18/20 14:30 07/17/20 14:29 Dextrose (Dextrose 50%) 25 ml Q30M PRN IV Hypoglycemia 04/18/20 14:30 07/17/20 14:29 Dextrose (Dextrose 50%) 50 ml Q30M PRN IV Hypoglycemia 04/18/20 14:30 07/17/20 14:29 Diltiazem HCl (Cardizem Tab) 90 mg EVERY 6 HOURS ORAL 04/19/20 18:00 05/18/20 21:59 04/20/20 11:45 Diphenhydramine HCl (Benadryl) 25 mg Q6H PRN ORAL Itching/Pruritis 04/18/20 14:30 05/18/20 14:29 Docusate Sodium (Colace) 100 mg EVERY 12 HOURS ORAL 04/18/20 21:00 05/18/20 20:59 Doxazosin Mesylate (Cardura) 4 mg DAILY ORAL 04/19/20 09:00 05/19/20 08:59 04/20/20 08:22 Duloxetine HCl (Cymbalta) 60 mg BID ORAL 04/19/20 18:00 07/17/20 17:59 04/20/20 08:22 Furosemide (Lasix) 40 mg EVERY 12 HOURS ORAL 04/18/20 21:00 05/18/20 20:59 04/20/20 08:21 Gabapentin (Neurontin) 300 mg BEDTIME ORAL 04/18/20 21:00 05/18/20 20:59 04/19/20 21:31 Hydralazine HCl (Apresoline) 50 mg Q6HR ORAL 04/18/20 18:00 07/17/20 17:59 04/20/20 11:45 Lorazepam (Ativan 2mg/ml 1ml) 0.5 mg Q4H PRN IV For Anxiety 04/18/20 14:30 04/25/20 14:29 Magnesium Hydroxide (Mom) 30 ml HSPRN PRN ORAL Constipation 04/18/20 14:30 05/18/20 14:29 Methocarbamol (Robaxin) 500 mg QIDPRN PRN ORAL Muscle Spasm 04/18/20 14:30 05/18/20 14:29 04/20/20 08:23 Micafungin Sodium 100 mg/Sodium Chloride 110 ml @ 110 mls/hr Q24H IVPB 04/18/20 21:00 04/25/20 20:59 04/19/20 21:30 Naloxone HCl (Narcan) 0.2 mg Q2M PRN IVP respiratory depression 04/20/20 14:00 07/19/20 13:59 Ondansetron HCl (Zofran) 4 mg Q6H PRN IVP Nausea & Vomiting 04/18/20 14:30 05/18/20 14:29 Oxycodone/ Acetaminophen (Percocet 10/325) 1 tab Q4H PRN ORAL pain 04/18/20 12:45 04/25/20 12:44 04/20/20 13:34 Phosphorus (Phospha 250 Neutral) 250 mg THREE TIMES A DAY ORAL 04/18/20 18:00 05/18/20 17:59 04/20/20 13:34 Polyethylene Glycol (Miralax) 17 gm DAILYPRN PRN ORAL Constipation 04/18/20 14:30 05/18/20 14:29 Polymyxin B Sulfate 212898 units/Dextrose 550 ml @ 550 mls/hr Q12H IV 04/18/20 17:00 04/25/20 16:59 04/20/20 04:44 Potassium Chloride (K-Dur) 40 meq DAILY ORAL 04/19/20 09:00 07/18/20 08:59 04/20/20 08:21 Vancomycin HCl (Vanco pharmacy to dose) 1 ea DAILY PRN MISC Per rx protocol 04/18/20 14:45 05/18/20 14:44 Jose Valdes MD Apr 20, 2020 16:32
--- NOTE | 2020-04-20 18:53 | NUR ---
NURSE NOTES: Patient not tolerating SCD, requested to be removed. will inform MD.
--- NOTE | 2020-04-20 19:29 | NUR ---
HAND-OFF: Report given to Deborah ARCOS.
--- NOTE | 2020-04-20 19:35 | NUR ---
NURSE NOTES: Received report from Tracey Marvin RN. Pt in bed, alert, denies pain at this time. Call light within reach with instructions to use if assistance is needed, pt verbalized understanding. Will continue plan of care and close monitoring.
[2020-04-20 20:00] VITALS: BP 159/85
--- NOTE | 2020-04-20 21:00 | Consultation ---
DATE OF CONSULTATION: 04/20/2020 PAIN MANAGEMENT CONSULTATION CONSULTING PHYSICIAN: Yenny Dumont MD. REFERRING PHYSICIAN: Malathi Mendez MD PHYSICIAN ORACLE DATABASE ANALYST: EDELMIRA Rick. CHIEF COMPLAINT: Generalized body pain. HISTORY OF PRESENT ILLNESS: This is a 69-year-old female who is being seen on the telemetry floor of [facility] for comprehensive pain management consultation. Patient is a known patient from her previous hospital admission, now admitted under the care of Dr. Mendez due to atrial fibrillation and being seen by a cruller maker machine for this issue. Has chronic pain throughout her body, mostly in her back, found to have sickle decubitus ulcer as well as injured her joints. The pain is worse with movement. At this time, she is on Percocet 10/325 one tablet every 4 hours as needed for severe pain, Robaxin 500 mg tablet every 8 hours as needed for muscle spasm, gabapentin 300 mg at bedtime. At this time, we were consulted so that the patient would have adequate pain control while here in the hospital. She is comfortable on the current medication regimen and discussed with her in detail about opioid usage, dependency, and tolerance. She seems to understand. REVIEW OF SYSTEMS: Denies rash, fever, chills, sweating, dizziness, drowsiness, blurred vision, sore throat, change in her weight. No shortness of breath, chest pain, palpitations, or cough. No nausea, vomiting, diarrhea, blood in stool or urine. No dysuria. PHYSICAL EXAMINATION: GENERAL: Alert, awake, and oriented. VITAL SIGNS: Blood pressure 138/84, heart rate 95, oxygen saturation is 92%, respiratory rate is 20, temperature is 97.9 degrees Fahrenheit. HEENT: PERRLA. LUNGS: Decreased breath sounds bilaterally. HEART: S1 and S2 regular. ABDOMEN: Ostomy noted. EXTREMITIES: Upper and lower extremity range of motion decreased due to patient's condition. No cyanosis. No clubbing. Sensory is reduced. Reflexes are not obtainable. No adenopathy. ASSESSMENT AND PLAN: This is a 69-year-old female with lumbar degenerative disease, lumbar spondylosis, multiple joint pain, muscle spasm, osteoarthritis, sacral decubitus ulcer. The patient will continued on Percocet and Robaxin as needed and we will add parameters to hold opioids for oversedation or lethargy or systolic blood pressure below 90 or diastolic blood pressure over 60, respiratory rate 12, oxygen saturation below 92% as well as Narcan 0.2 mg IV every 2 minutes as needed for respiratory depression. The patient was discussed with Dr. Dumont and Dr. Dumont concurred. We will follow the patient. Thank you very much for the courtesy of this consultation. Yenny Dumont M.D. EDELMIRA Rick DR: TEGAN JOB#: [id number] CC: LISA
[2020-04-20] MEDS: Micafungin 100 MG in NS 110 ML IVPB SCH (21:25)
[2020-04-20] MEDS: Zolpidem 5mg tab ORAL PRN (21:25)
[2020-04-21] VITALS: BP 146/70
[2020-04-21] MEDS: HydrALAZINE 50mg tab ORAL SCH ×5 (01:05→23:42)
[2020-04-21] MEDS: dilTIAZem HCl 90mg tab ORAL SCH ×5 (01:05→23:43)
[2020-04-21 04:00] VITALS: BP 150/71
[2020-04-21] MEDS: Polymyxin B Sulfate 500,000 UNITS in D5W 500ml 550 ML IV SCH ×2 (05:03→17:04)
[2020-04-21] MEDS: Methocarbamol 500mg tab ORAL PRN ×2 (05:04→18:37)
--- NOTE | 2020-04-21 07:08 | NUR ---
HAND-OFF: Report given to Tracey Marvin RN. Pt denies pain at this time; in stable condition. Plan of care endorsed.
--- NOTE | 2020-04-21 07:43 | NUR ---
NURSE NOTES: Received patient in bed awake. O2 via NC in place, no SOB or acute distress. PICC line intact. Colostomy bag intact. FC intact, draining yellow colored urine. HOB elevated. Bed locked in lowest position. Call light within reach. Will continue plan of care.
[2020-04-21 07:49] LABS: HEMATOCRIT 24.6 % (37.0-47.0); HEMOGLOBIN 7.4 G/DL (12.0-16.0); MEAN CORPUSCULAR VOLUME 88 FL (80-99); PLATELET COUNT 390 K/UL (150-450); RED BLOOD COUNT 2.81 M/UL (4.20-5.40); RED CELL DISTRIBUTION WIDTH 16.2 % (11.6-14.8); WHITE BLOOD COUNT 5.3 K/UL (4.8-10.8)
[2020-04-21 07:54] LABS: ANION GAP 8 mmol/L (5-15); BLOOD UREA NITROGEN 9 mg/dL (7-18); CALCIUM 8.4 MG/DL (8.5-10.1); CARBON DIOXIDE 28 MMOL/L (21-32); CHLORIDE 104 MMOL/L (98-107); CREATININE 1.1 MG/DL (0.55-1.30); POTASSIUM 3.5 MMOL/L (3.5-5.1); SODIUM 140 MMOL/L (136-145)
[2020-04-21 08:00] VITALS: BP 122/65
[2020-04-21] MEDS: Docusate 100mg cap ORAL SCH ×2 (09:00→21:00)
[2020-04-21] MEDS: Doxazosin 4mg tab ORAL SCH (09:06)
[2020-04-21] MEDS: Amiodarone 200mg tab ORAL SCH ×2 (09:07→17:04)
[2020-04-21] MEDS: Phospha 250 Neutral tab ORAL SCH ×3 (09:07→17:04)
[2020-04-21] MEDS: Furosemide 40mg tab ORAL SCH ×2 (09:07→22:10)
--- NOTE | 2020-04-21 10:48 | NUR ---
NURSE NOTES: H and H levels relayed to Dr Mendez, awaiting callback.
--- NOTE | 2020-04-21 11:35 | Pulmonology Progress Note ---
Subjective ROS Limited/Unobtainable: No Interval Events: None new Constitutional: Denies: fever HEENT: Repors: no symptoms Respiratory: Reports: no symptoms Cardiovascular: Reports: no symptoms Gastrointestinal/Abdominal: Denies: nausea, vomiting, diarrhea Genitourinary: Reports: no symptoms Psychiatric: Denies: depression Skin: Denies: rash Musculoskeletal: Denies: pain Allergies: Coded Allergies: LISINOPRIL (Verified Allergy, Unknown, Hives, 04/12/14) Objective Last 24 Hour Vital Signs Date Time Temp Pulse Resp B/P (MAP) Pulse Ox O2 Delivery O2 Flow Rate FiO2 04/21/20 09:00 Room Air 04/21/20 08:00 86 04/21/20 08:00 97.7 86 19 122/65 (84) 97 04/21/20 05:34 96.1 04/21/20 05:03 94 150/71 04/21/20 05:03 150/71 04/21/20 04:00 96.1 94 22 150/71 (97) 96 04/21/20 04:00 82 04/21/20 01:05 94 146/70 04/21/20 01:05 146/70 04/21/20 00:00 96.8 94 20 146/70 (95) 96 04/20/20 21:00 Room Air 04/20/20 20:00 96 04/20/20 20:00 97.4 93 20 159/85 (109) 96 04/20/20 17:00 88 126/60 04/20/20 17:00 126/60 04/20/20 16:00 97.3 88 20 126/60 (82) 96 04/20/20 16:00 90 04/20/20 12:00 91 04/20/20 12:00 97.2 87 20 142/70 (94) 95 04/20/20 11:45 88 142/70 04/20/20 11:45 142/70 Intake and Output 04/20/20 04/21/20 19:00 07:00 Intake Total 750 ml Output Total 1700 ml Balance -950 ml Intake Oral 750 ml Output Urine Total 1700 ml # Voids 1 General Appearance: no acute distress HEENT: normocephalic Respiratory: chest wall non-tender Cardiovascular: normal peripheral pulses Abdomen: normal bowel sounds Microbiology Date/Time Source Procedure Growth Status 04/18/20 14:50 Nasal Nares MRSA Culture - Final NO METHICILLIN RESISTANT STAPH AUREUS... Complete 04/18/20 14:50 Rectum - Final NO CARBAPENEM-RESISTANT ENTEROBACTERI... Complete 04/18/20 14:50 Rectum VRE Culture - Final Enterococcus Faecalis - Vre Complete Laboratory Tests 04/20/20 17:53: Random Vancomycin Level 25.6 04/21/20 06:50: Random Vancomycin Level 24.3, White Blood Count 5.3, Red Blood Count 2.81L, Hemoglobin 7.4L, Hematocrit 24.6L, Mean Corpuscular Volume 88, Mean Corpuscular Hemoglobin 26.5L, Mean Corpuscular Hemoglobin Concent 30.2L, Red Cell Distribution Width 16.2H, Platelet Count 390, Mean Platelet Volume 6.1L, Neutrophils (%) (Auto) , Lymphocytes (%) (Auto) , Monocytes (%) (Auto) , Eosinophils (%) (Auto) , Basophils (%) (Auto) , Differential Total Cells Counted 100, Neutrophils % (Manual) 61, Lymphocytes % (Manual) 28, Monocytes % ( Manual) 10, Eosinophils % (Manual) 1, Basophils % (Manual) 0, Band Neutrophils 0 , Platelet Estimate Adequate, Platelet Morphology Normal, Hypochromasia 1+, Anisocytosis 1+, Sodium Level 140, Potassium Level 3.5, Chloride Level 104, Carbon Dioxide Level 28, Anion Gap 8, Blood Urea Nitrogen 9, Creatinine 1.1, Estimat Glomerular Filtration Rate > 60, Glucose Level 118H, Calcium Level 8.4L Current Medications Medications (Trade) Dose Ordered Sig/Debbie Route PRN Reason Start Time Stop Time Status Last Admin Dose Admin Amiodarone HCl (Cordarone) 200 mg BID ORAL 04/19/20 18:00 07/18/20 08:59 04/21/20 09:07 Bisacodyl (Dulcolax) 10 mg DAILYPRN PRN RECTAL Constipation 04/18/20 14:30 07/17/20 14:29 Dextrose (Dextrose 50%) 25 ml Q30M PRN IV Hypoglycemia 04/18/20 14:30 07/17/20 14:29 Dextrose (Dextrose 50%) 50 ml Q30M PRN IV Hypoglycemia 04/18/20 14:30 07/17/20 14:29 Diltiazem HCl (Cardizem Tab) 90 mg EVERY 6 HOURS ORAL 04/19/20 18:00 05/18/20 21:59 04/21/20 05:03 Diphenhydramine HCl (Benadryl) 25 mg Q6H PRN ORAL Itching/Pruritis 04/18/20 14:30 05/18/20 14:29 Docusate Sodium (Colace) 100 mg EVERY 12 HOURS ORAL 04/18/20 21:00 05/18/20 20:59 Doxazosin Mesylate (Cardura) 4 mg DAILY ORAL 04/19/20 09:00 05/19/20 08:59 04/21/20 09:06 Duloxetine HCl (Cymbalta) 60 mg BID ORAL 04/19/20 18:00 07/17/20 17:59 04/21/20 09:07 Furosemide (Lasix) 40 mg EVERY 12 HOURS ORAL 04/18/20 21:00 05/18/20 20:59 04/21/20 09:07 Gabapentin (Neurontin) 300 mg BEDTIME ORAL 04/18/20 21:00 05/18/20 20:59 04/20/20 21:25 Hydralazine HCl (Apresoline) 50 mg Q6HR ORAL 04/18/20 18:00 07/17/20 17:59 04/21/20 05:03 Lorazepam (Ativan 2mg/ml 1ml) 0.5 mg Q4H PRN IV For Anxiety 04/18/20 14:30 04/25/20 14:29 Magnesium Hydroxide (Mom) 30 ml HSPRN PRN ORAL Constipation 04/18/20 14:30 05/18/20 14:29 Methocarbamol (Robaxin) 500 mg QIDPRN PRN ORAL Muscle Spasm 04/18/20 14:30 05/18/20 14:29 04/21/20 05:04 Micafungin Sodium 100 mg/Sodium Chloride 110 ml @ 110 mls/hr Q24H IVPB 04/18/20 21:00 04/25/20 20:59 04/20/20 21:25 Naloxone HCl (Narcan) 0.2 mg Q2M PRN IVP respiratory depression 04/20/20 14:00 07/19/20 13:59 Ondansetron HCl (Zofran) 4 mg Q6H PRN IVP Nausea & Vomiting 04/18/20 14:30 05/18/20 14:29 Oxycodone/ Acetaminophen (Percocet 10/325) 1 tab Q4H PRN ORAL For Pain 04/20/20 17:30 04/27/20 17:29 04/21/20 09:08 Phosphorus (Phospha 250 Neutral) 250 mg THREE TIMES A DAY ORAL 04/18/20 18:00 05/18/20 17:59 04/21/20 09:07 Polyethylene Glycol (Miralax) 17 gm DAILYPRN PRN ORAL Constipation 04/18/20 14:30 05/18/20 14:29 Polymyxin B Sulfate 624904 units/Dextrose 550 ml @ 550 mls/hr Q12H IV 04/18/20 17:00 04/25/20 16:59 04/21/20 05:03 Potassium Chloride (K-Dur) 40 meq DAILY ORAL 04/19/20 09:00 07/18/20 08:59 04/21/20 09:07 [facility] 1 ea DAILY PRN MISC Per rx protocol 04/18/20 14:45 05/18/20 14:44 Zolpidem Tartrate (Ambien) 5 mg HSPRN PRN ORAL Insomnia 04/20/20 16:30 04/27/20 16:29 04/20/20 21:25 Assessment/Plan Assessment/Plan IMPRESSION: 1. Small left pleural effusion. 2. Bibasilar infiltrates. 3. History of chronic pain. 4. Atrial fibrillation. 5. [facility] resident. DISCUSSION: Continue medications including Cardizem. Resume home medications. Continue oxygen and pulmonary hygiene. Seven Yao Omar Syed MD Apr 21, 2020 11:35
--- NOTE | 2020-04-21 11:41 | General Progress Note ---
Assessment/Plan Status: stable Assessment/Plan: 69-year-old female with PMH of A. fib, chronic pain, diverticulitis, HTN, HLD who presents from SNF for uncontrolled chronic pain and A. fib RVR. #Afib w/ RVR - resolved -cont medical care on tele -likely 2/2 uncontrolled pain and electrolyte abnormality -s/p diltiazem PO and IV in ED, now rate controlled -cont home amiodarone, cardizem -Cardio, Dr. Crooks, consulted, recs appreciated -EP, Dr. Dean, consulted, recs appreciated -Will discuss resumption of Eliquis with consultants #Iron Deficiency Anemia #Hx of FOBT + -s/p EGD/colon on 04/16 showing gastritis, ulcers near ostomy bag likely ischemic -Hemoglobin stable -ctm Hgb, transfuse for hgb <7 -7/2: s/p 1 U PRBC -d/w GI, Dr. Boyd, and Heme, Dr Wray, recs appreciated -ctm, no endoscopic intervention at this time #Hypokalemia #Hypomagnesemia -replaced, ctm -replace PRN #Left Plueral Effusion -CXR on admission w/slight increased left pleural effusion -pt w/no conversational dyspnea, lungs CTAB, ctm at this time -Pulm following #Hx Sepsis, HCAP/UTI, + ESBL -Sputum w/ multiple MDR organisms, now requiring aggressive AB -cont Micagungin, Polymoxin, Vancomyin for 2 more days -ID following #Chronic Pain -Continue Robaxin for spasms -Cont Percocet PRN -morphine for breakthrough pain -pain management eval appreciated #Seizure vs prolonged period of immobility #S/P Acute metabolic Encephalopathy -cont home meds #Hx of Colectomy w/ Colostomy -wound care DVT ppx: Xarelto --> hold given acute anemia, SCDs Full Code I spent 35 mins on this encounter w25 min on care/coordination and pt counseling. D/w RN, consulting MDs Subjective Date patient seen: Apr 21, 2020 Time patient seen: 11:00 Constitutional: Denies: chills, fever Cardiovascular: Denies: chest pain, palpitations Respiratory: Denies: cough, orthopnea, shortness of breath Gastrointestinal/Abdominal: Denies: abdomen distended, abdominal pain Genitourinary: Denies: burning Neurologic/Psychiatric: Denies: anxiety Endocrine: Denies: excessive sweating Allergies: Coded Allergies: LISINOPRIL (Verified Allergy, Unknown, Hives, 04/12/14) Subjective Follow up for rapid atrial fibrillation, acute anemia. Feels well today, no current complaints. Hb is 7.4 today Objective Last 24 Hour Vital Signs Date Time Temp Pulse Resp B/P (MAP) Pulse Ox O2 Delivery O2 Flow Rate FiO2 04/21/20 09:00 Room Air 04/21/20 08:00 86 04/21/20 08:00 97.7 86 19 122/65 (84) 97 04/21/20 05:34 96.1 04/21/20 05:03 94 150/71 04/21/20 05:03 150/71 04/21/20 04:00 96.1 94 22 150/71 (97) 96 04/21/20 04:00 82 04/21/20 01:05 94 146/70 04/21/20 01:05 146/70 04/21/20 00:00 96.8 94 20 146/70 (95) 96 04/20/20 21:00 Room Air 04/20/20 20:00 96 04/20/20 20:00 97.4 93 20 159/85 (109) 96 04/20/20 17:00 88 126/60 04/20/20 17:00 126/60 04/20/20 16:00 97.3 88 20 126/60 (82) 96 04/20/20 16:00 90 04/20/20 12:00 91 04/20/20 12:00 97.2 87 20 142/70 (94) 95 04/20/20 11:45 88 142/70 04/20/20 11:45 142/70 Intake and Output 04/20/20 04/21/20 19:00 07:00 Intake Total 750 ml Output Total 1700 ml Balance -950 ml Intake Oral 750 ml Output Urine Total 1700 ml # Voids 1 Laboratory Tests 04/20/20 17:53: Random Vancomycin Level 25.6 04/21/20 06:50: Random Vancomycin Level 24.3, White Blood Count 5.3, Red Blood Count 2.81L, Hemoglobin 7.4L, Hematocrit 24.6L, Mean Corpuscular Volume 88, Mean Corpuscular Hemoglobin 26.5L, Mean Corpuscular Hemoglobin Concent 30.2L, Red Cell Distribution Width 16.2H, Platelet Count 390, Mean Platelet Volume 6.1L, Neutrophils (%) (Auto) , Lymphocytes (%) (Auto) , Monocytes (%) (Auto) , Eosinophils (%) (Auto) , Basophils (%) (Auto) , Differential Total Cells Counted 100, Neutrophils % (Manual) 61, Lymphocytes % (Manual) 28, Monocytes % ( Manual) 10, Eosinophils % (Manual) 1, Basophils % (Manual) 0, Band Neutrophils 0 , Platelet Estimate Adequate, Platelet Morphology Normal, Hypochromasia 1+, Anisocytosis 1+, Sodium Level 140, Potassium Level 3.5, Chloride Level 104, Carbon Dioxide Level 28, Anion Gap 8, Blood Urea Nitrogen 9, Creatinine 1.1, Estimat Glomerular Filtration Rate > 60, Glucose Level 118H, Calcium Level 8.4L Height (Feet): 5 Height (Inches): 10.00 Weight (Pounds): 200 General Appearance: no apparent distress, alert Neck: normal alignment, supple Cardiovascular: normal peripheral pulses, normal rate Respiratory/Chest: lungs clear, normal breath sounds Abdomen: non tender, soft Marcos Pathak MD Apr 21, 2020 11:41
[2020-04-21 12:00] VITALS: BP 146/76
--- NOTE | 2020-04-21 15:06 | Cardiac Electrophysiology PN ---
Assessment/Plan Assessment/Plan 1. Recurrent atrial flutter with rapid ventricular response. Continue amiodarone 200 mg bid and Cardizem 90 mg po every 6 hours Eliquis was resumed. EPS and ablation at [facility] as out patient 2. Severe anemia, s/p blood transfusion. 3. Hypertension. On Cardizem, Lasix 40 mg po b.i.d. and hydralazine 50 mg every 6 hours. 4. Hyperlipidemia, on Lipitor. 5. Pleural effusion. Subjective Subjective No recurrence of atrial fluter overnight. No CP Objective Last 24 Hour Vital Signs Date Time Temp Pulse Resp B/P (MAP) Pulse Ox O2 Delivery O2 Flow Rate FiO2 04/21/20 12:10 93 146/76 04/21/20 12:09 146/76 04/21/20 12:00 85 04/21/20 12:00 98.2 93 18 146/76 (99) 100 04/21/20 09:00 Room Air 04/21/20 08:00 86 04/21/20 08:00 97.7 86 19 122/65 (84) 97 04/21/20 05:34 96.1 04/21/20 05:03 94 150/71 04/21/20 05:03 150/71 04/21/20 04:00 96.1 94 22 150/71 (97) 96 04/21/20 04:00 82 04/21/20 01:05 94 146/70 04/21/20 01:05 146/70 04/21/20 00:00 96.8 94 20 146/70 (95) 96 04/20/20 21:00 Room Air 04/20/20 20:00 96 04/20/20 20:00 97.4 93 20 159/85 (109) 96 04/20/20 17:00 88 126/60 04/20/20 17:00 126/60 04/20/20 16:00 97.3 88 20 126/60 (82) 96 04/20/20 16:00 90 Intake and Output 04/20/20 04/21/20 19:00 07:00 Intake Total 750 ml Output Total 1700 ml Balance -950 ml Intake Oral 750 ml Output Urine Total 1700 ml # Voids 1 Laboratory Tests Test 04/20/20 17:53 04/21/20 06:50 Random Vancomycin Level 25.6 ug/mL 24.3 ug/mL White Blood Count 5.3 K/UL (4.8-10.8) Red Blood Count 2.81 M/UL (4.20-5.40) L Hemoglobin 7.4 G/DL (12.0-16.0) L Hematocrit 24.6 % (37.0-47.0) L Mean Corpuscular Volume 88 FL (80-99) Mean Corpuscular Hemoglobin 26.5 PG (27.0-31.0) L Mean Corpuscular Hemoglobin Concent 30.2 G/DL (32.0-36.0) L Red Cell Distribution Width 16.2 % (11.6-14.8) H Platelet Count 390 K/UL (150-450) Mean Platelet Volume 6.1 FL (6.5-10.1) L Neutrophils (%) (Auto) % (45.0-75.0) Lymphocytes (%) (Auto) % (20.0-45.0) Monocytes (%) (Auto) % (1.0-10.0) Eosinophils (%) (Auto) % (0.0-3.0) Basophils (%) (Auto) % (0.0-2.0) Differential Total Cells Counted 100 Neutrophils % (Manual) 61 % (45-75) Lymphocytes % (Manual) 28 % (20-45) Monocytes % (Manual) 10 % (1-10) Eosinophils % (Manual) 1 % (0-3) Basophils % (Manual) 0 % (0-2) Band Neutrophils 0 % (0-8) Platelet Estimate Adequate Platelet Morphology Normal Hypochromasia 1+ Anisocytosis 1+ Sodium Level 140 MMOL/L (136-145) Potassium Level 3.5 MMOL/L (3.5-5.1) Chloride Level 104 MMOL/L (98-107) Carbon Dioxide Level 28 MMOL/L (21-32) Anion Gap 8 mmol/L (5-15) Blood Urea Nitrogen 9 mg/dL (7-18) Creatinine 1.1 MG/DL (0.55-1.30) Estimat Glomerular Filtration Rate > 60 mL/min (>60) Glucose Level 118 MG/DL (74-106) H Calcium Level 8.4 MG/DL (8.5-10.1) L Objective NECK: No JVD. LUNGS: Clear. CARDIOVASCULAR: Irregular S1 and S2 with no gallop or murmur. ABDOMEN: Soft. EXTREMITIES: 1+ pitting edema. Carlos Dean MD Apr 21, 2020 15:06
--- NOTE | 2020-04-21 15:11 | Cardiac Electrophysiology PN ---
Assessment/Plan Assessment/Plan 1. Recurrent atrial flutter with rapid ventricular response. Continue amiodarone 200 mg bid and Cardizem 90 mg po every 6 hours Eliquis was resumed. EPS and ablation at [facility] as out patient 2. Severe anemia, s/p blood transfusion. FU GI and hematology 3. Hypertension. On Cardizem, Lasix 40 mg po b.i.d. and hydralazine 50 mg every 6 hours. 4. Hyperlipidemia, on Lipitor. 5. Pleural effusion. 6. History of diverticulitis requiring partial colectomy and colostomy placement. 7. Ischemic colitis proximal to colostomy insertion from last admission. Subjective Subjective No recurrence of atrial fluter overnight. No CP Objective Last 24 Hour Vital Signs Date Time Temp Pulse Resp B/P (MAP) Pulse Ox O2 Delivery O2 Flow Rate FiO2 04/21/20 12:10 93 146/76 04/21/20 12:09 146/76 04/21/20 12:00 85 04/21/20 12:00 98.2 93 18 146/76 (99) 100 04/21/20 09:00 Room Air 04/21/20 08:00 86 04/21/20 08:00 97.7 86 19 122/65 (84) 97 04/21/20 05:34 96.1 04/21/20 05:03 94 150/71 04/21/20 05:03 150/71 04/21/20 04:00 96.1 94 22 150/71 (97) 96 04/21/20 04:00 82 04/21/20 01:05 94 146/70 04/21/20 01:05 146/70 04/21/20 00:00 96.8 94 20 146/70 (95) 96 04/20/20 21:00 Room Air 04/20/20 20:00 96 04/20/20 20:00 97.4 93 20 159/85 (109) 96 04/20/20 17:00 88 126/60 04/20/20 17:00 126/60 04/20/20 16:00 97.3 88 20 126/60 (82) 96 04/20/20 16:00 90 Intake and Output 04/20/20 04/21/20 19:00 07:00 Intake Total 750 ml Output Total 1700 ml Balance -950 ml Intake Oral 750 ml Output Urine Total 1700 ml # Voids 1 Laboratory Tests Test 04/20/20 17:53 04/21/20 06:50 Random Vancomycin Level 25.6 ug/mL 24.3 ug/mL White Blood Count 5.3 K/UL (4.8-10.8) Red Blood Count 2.81 M/UL (4.20-5.40) L Hemoglobin 7.4 G/DL (12.0-16.0) L Hematocrit 24.6 % (37.0-47.0) L Mean Corpuscular Volume 88 FL (80-99) Mean Corpuscular Hemoglobin 26.5 PG (27.0-31.0) L Mean Corpuscular Hemoglobin Concent 30.2 G/DL (32.0-36.0) L Red Cell Distribution Width 16.2 % (11.6-14.8) H Platelet Count 390 K/UL (150-450) Mean Platelet Volume 6.1 FL (6.5-10.1) L Neutrophils (%) (Auto) % (45.0-75.0) Lymphocytes (%) (Auto) % (20.0-45.0) Monocytes (%) (Auto) % (1.0-10.0) Eosinophils (%) (Auto) % (0.0-3.0) Basophils (%) (Auto) % (0.0-2.0) Differential Total Cells Counted 100 Neutrophils % (Manual) 61 % (45-75) Lymphocytes % (Manual) 28 % (20-45) Monocytes % (Manual) 10 % (1-10) Eosinophils % (Manual) 1 % (0-3) Basophils % (Manual) 0 % (0-2) Band Neutrophils 0 % (0-8) Platelet Estimate Adequate Platelet Morphology Normal Hypochromasia 1+ Anisocytosis 1+ Sodium Level 140 MMOL/L (136-145) Potassium Level 3.5 MMOL/L (3.5-5.1) Chloride Level 104 MMOL/L (98-107) Carbon Dioxide Level 28 MMOL/L (21-32) Anion Gap 8 mmol/L (5-15) Blood Urea Nitrogen 9 mg/dL (7-18) Creatinine 1.1 MG/DL (0.55-1.30) Estimat Glomerular Filtration Rate > 60 mL/min (>60) Glucose Level 118 MG/DL (74-106) H Calcium Level 8.4 MG/DL (8.5-10.1) L Objective NECK: No JVD. LUNGS: Clear. CARDIOVASCULAR: Irregular S1 and S2 with no gallop or murmur. ABDOMEN: Soft. EXTREMITIES: 1+ pitting edema. Carlos Dean MD Apr 21, 2020 15:11
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
--- NOTE | 2020-04-21 15:39 | NUR ---
NURSE NOTES: For GI and oliver clearance prior to starting eliquis. Dr Wray and Dr Boyd made aware, awaiting response.
[2020-04-21 16:00] VITALS: BP 158/77
--- NOTE | 2020-04-21 16:20 | NUR ---
NURSE NOTES: OB stool sample sent to lab. Cleared by Dr Wray for eliquis use.
[2020-04-21] MEDS ORDERED: Eliquis 5mg tablet ORAL SCH (18:00)
--- NOTE | 2020-04-21 19:53 | NUR ---
HAND-OFF: Report given to Sunshine ARCOS.
[2020-04-21 20:00] VITALS: BP 155/67
--- NOTE | 2020-04-21 20:00 | NUR ---
NURSE NOTES: Received patient in bed awake, alert and oriented x4. O2 via NC in place 2L, no SOB or acute distress. PICC line intact double lumen, left upper arm. Colostomy bag intact. FC intact, secured to leg, draining yellow clear urine. HOB elevated. Bed locked in lowest position. bed alarm on, Call light within reach. Will continue plan of care
--- NOTE | 2020-04-21 21:16 | Nephrology Progress Note ---
Assessment/Plan Plan #Afib with RVR #HTN #Hypokalemia #Hypomagnesemia #Left Plueral Effusion #Hx Sepsis, HCAP/UTI, + ESBL #Chronic Pain #Iron Deficiency Anemia #Seizure vs prolonged period of immobility #S/P Acute metabolic Encephalopathy #Hx of Colectomy w/ Colostomy - tele - rate control per cardiology - resume AC- on apixaban - replete lytes - monitor h -s/p EGD/colon on 04/16 showing gastritis, ulcers near ostomy bag likely ischemic , biopsies obtained, follow-up pathology -ctm Hgb, transfuse for hgb <7 -cont home meds -wound care - monitor renal function Time spent 45 min - greater than 50% on care coordination and counseling Subjective ROS Limited/Unobtainable: No Constitutional: Reports: weakness HEENT: Denies: no symptoms, eye pain, blurred vision, tearing, double vision, ear pain, ear discharge, nose pain, nose congestion, throat pain, throat swelling, mouth pain, mouth swelling, other Genitourinary: Denies: no symptoms, burning, discharge, frequency, flank pain, hematuria, incontinence, pain, urgency, other Neurologic/Psychiatric: Denies: no symptoms, anxiety, depressed, emotional problems, headache, numbness, paresthesia, pre-existing deficit, seizure, tingling, tremors, weakness, other Subjective rate better controlled no chest pain no SOB hemoglobin improved s/p transfusion plan to start AC Objective Objective Last 24 Hour Vital Signs Date Time Temp Pulse Resp B/P (MAP) Pulse Ox O2 Delivery O2 Flow Rate FiO2 04/21/20 17:04 98 158/77 04/21/20 17:04 158/77 04/21/20 16:00 98.6 98 18 158/77 (104) 100 04/21/20 16:00 93 04/21/20 12:10 93 146/76 04/21/20 12:09 146/76 04/21/20 12:00 85 04/21/20 12:00 98.2 93 18 146/76 (99) 100 04/21/20 09:00 Room Air 04/21/20 08:00 86 04/21/20 08:00 97.7 86 19 122/65 (84) 97 04/21/20 05:34 96.1 04/21/20 05:03 94 150/71 7/4/20 05:03 150/71 04/21/20 04:00 96.1 94 22 150/71 (97) 96 04/21/20 04:00 82 04/21/20 01:05 94 146/70 04/21/20 01:05 146/70 04/21/20 00:00 96.8 94 20 146/70 (95) 96 Intake and Output 04/20/20 04/21/20 19:00 07:00 Intake Total 750 ml Output Total 1700 ml Balance -950 ml Intake Oral 750 ml Output Urine Total 1700 ml # Voids 1 Laboratory Tests 04/21/20 06:50: White Blood Count 5.3, Red Blood Count 2.81L, Hemoglobin 7.4L, Hematocrit 24.6L , Mean Corpuscular Volume 88, Mean Corpuscular Hemoglobin 26.5L, Mean Corpuscular Hemoglobin Concent 30.2L, Red Cell Distribution Width 16.2H, Platelet Count 390, Mean Platelet Volume 6.1L, Neutrophils (%) (Auto) , Lymphocytes (%) (Auto) , Monocytes (%) (Auto) , Eosinophils (%) (Auto) , Basophils (%) (Auto) , Differential Total Cells Counted 100, Neutrophils % ( Manual) 61, Lymphocytes % (Manual) 28, Monocytes % (Manual) 10, Eosinophils % ( Manual) 1, Basophils % (Manual) 0, Band Neutrophils 0, Platelet Estimate Adequate, Platelet Morphology Normal, Hypochromasia 1+, Anisocytosis 1+, Sodium Level 140, Potassium Level 3.5, Chloride Level 104, Carbon Dioxide Level 28, Anion Gap 8, Blood Urea Nitrogen 9, Creatinine 1.1, Estimat Glomerular Filtration Rate > 60, Glucose Level 118H, Calcium Level 8.4L, Random Vancomycin Level 24.3 04/21/20 16:15: Stool Occult Blood [Pending] Height (Feet): 5 Height (Inches): 10.00 Weight (Pounds): 200 Venkat Montes M.D. Apr 21, 2020 21:16
[2020-04-21] MEDS: Micafungin 100 MG in NS 110 ML IVPB SCH (22:10)
[2020-04-22] VITALS: BP 139/63
[2020-04-22] MEDS: Zolpidem 5mg tab ORAL PRN ×2 (02:55→21:51)
[2020-04-22 04:00] VITALS: BP 122/60
[2020-04-22] MEDS: Polymyxin B Sulfate 500,000 UNITS in D5W 500ml 550 ML IV SCH (04:59)
[2020-04-22] MEDS: HydrALAZINE 50mg tab ORAL SCH ×3 (04:59→17:00)
[2020-04-22] MEDS: dilTIAZem HCl 90mg tab ORAL SCH ×3 (04:59→17:00)
[2020-04-22 07:00] LABS: HEMATOCRIT 20.7 % (37.0-47.0); MEAN CORPUSCULAR VOLUME 90 FL (80-99); PLATELET COUNT 291 K/UL (150-450); RED BLOOD COUNT 2.31 M/UL (4.20-5.40); RED CELL DISTRIBUTION WIDTH 16.7 % (11.6-14.8); WHITE BLOOD COUNT 4.7 K/UL (4.8-10.8)
[2020-04-22 07:02] LABS: HEMOGLOBIN 6.1 G/DL (12.0-16.0)
--- NOTE | 2020-04-22 07:15 | NUR ---
NURSE NOTES: Received notification from lab that pt's hgb is 6.[address] Wray awaiting orders. Nils is aware of hgb 7.4 from previous day and said to transfuse 1 unit PRBC if hgb is less than 7.
--- NOTE | 2020-04-22 07:16 | NUR ---
NURSE NOTES: Waiting for Dr Wray to place order to transfuse, consent in chart from previous blood administration and type and cross previously done
[2020-04-22 07:23] LABS: ANION GAP 7 mmol/L (5-15); BLOOD UREA NITROGEN 9 mg/dL (7-18); CALCIUM 6.6 MG/DL (8.5-10.1); CARBON DIOXIDE 24 MMOL/L (21-32); CHLORIDE 96 MMOL/L (98-107); CREATININE 1.2 MG/DL (0.55-1.30); SODIUM 127 MMOL/L (136-145)
[2020-04-22 07:32] LABS: POTASSIUM 2.6 MMOL/L (3.5-5.1)
--- NOTE | 2020-04-22 07:40 | NUR ---
NURSE NOTES: Received order from Dr Wray to transfuse 2 units PRBCs.
[2020-04-22 08:00] VITALS: BP 154/74
[2020-04-22] MEDS ORDERED: Sodium Chloride for KCL Premix X 4hrs IV SCH (08:00)
--- NOTE | 2020-04-22 08:00 | NUR ---
NURSE NOTES: Received pt from JOSSELYN Roberts,pt has NC 2LMP. Pt is on continues heart monitoring, pt has Desai cath in place is working well. pt has colostomy bag in place is working well, no leaking noted. pt has PICC FIDENCIO arm is running well. BS checked by RN 104, and Dr George is aware about HB 6.1, BS 579, NA 127, K 2.6 and other lab results and V/S, ordered to repeat CBC and BMP, noted and carried out. all needs attended, bed is locked and is in the lowest position, call light within easy reach. will continue to monitor.
--- NOTE | 2020-04-22 08:00 | NUR ---
HAND-OFF: Report given to JOSSELYN Blanc.
[2020-04-22] MEDS ORDERED: Tubing IV Secondary IV ONE (08:28)
[2020-04-22 08:37] LABS: HEMATOCRIT 25.1 % (37.0-47.0); HEMOGLOBIN 7.6 G/DL (12.0-16.0); MEAN CORPUSCULAR VOLUME 88 FL (80-99); PLATELET COUNT 358 K/UL (150-450); RED BLOOD COUNT 2.85 M/UL (4.20-5.40); WHITE BLOOD COUNT 5.7 K/UL (4.8-10.8)
--- NOTE | 2020-04-22 08:57 | NUR ---
NURSE NOTES: Dr Wray is aware about HB 7.6 and HCT 25.1 ordered to hold blood transfusion, noted and carried out. will continue to monitor.
[2020-04-22 09:01] LABS: ANION GAP 8 mmol/L (5-15); BLOOD UREA NITROGEN 10 mg/dL (7-18); CALCIUM 8.5 MG/DL (8.5-10.1); CARBON DIOXIDE 30 MMOL/L (21-32); CHLORIDE 104 MMOL/L (98-107); CREATININE 1.2 MG/DL (0.55-1.30); POTASSIUM 3.4 MMOL/L (3.5-5.1); SODIUM 142 MMOL/L (136-145)
--- NOTE | 2020-04-22 09:13 | General Progress Note ---
Assessment/Plan Assessment/Plan: (1) lumbar degenerative disease (2) lumbar spondylosis (3) multiple joint pain and osteoarthritis (4) sacral decubitus ulcer Patient to be continued on Percocet as needed. D/w Dr. Dumont and he concurred. Subjective Date patient seen: Apr 22, 2020 Time patient seen: 08:00 - am Allergies: Coded Allergies: LISINOPRIL (Verified Allergy, Unknown, Hives, 04/12/14) Subjective REVIEW OF SYSTEMS: Denies rash, fever, chills, sweating, dizziness, drowsiness, blurred vision, sore throat, change in her weight. No shortness of breath, chest pain, palpitations, or cough. No nausea, vomiting, diarrhea, blood in stool or urine. No dysuria. SUBJECTIVE: Patient is in bed showing no signs of pain or distress. Pain is a 5/10 on the Percocet using 5 doses in the last 24hrs. No new complaints at this time. Objective Last 24 Hour Vital Signs Date Time Temp Pulse Resp B/P (MAP) Pulse Ox O2 Delivery O2 Flow Rate FiO2 04/22/20 08:00 97.7 93 20 154/74 (100) 97 04/22/20 07:46 89 04/22/20 07:08 98.8 04/22/20 04:59 85 122/60 04/22/20 04:59 122/60 04/22/20 04:00 98.8 85 18 122/60 (80) 95 04/22/20 04:00 85 04/22/20 00:00 98.6 91 19 139/63 (88) 91 04/22/20 00:00 89 04/21/20 23:43 88 138/63 04/21/20 23:42 138/63 04/21/20 21:00 Room Air 04/21/20 20:00 97.5 91 18 155/67 (96) 94 04/21/20 20:00 89 04/21/20 17:04 98 158/77 04/21/20 17:04 158/77 04/21/20 16:00 98.6 98 18 158/77 (104) 100 04/21/20 16:00 93 04/21/20 12:10 93 146/76 04/21/20 12:09 146/76 04/21/20 12:00 85 04/21/20 12:00 98.2 93 18 146/76 (99) 100 Intake and Output 04/21/20 04/22/20 19:00 07:00 Intake Total 480 ml Output Total 350 ml 1600 ml Balance 130 ml -1600 ml Intake Oral 480 ml Output Urine Total 350 ml 1600 ml Laboratory Tests 04/21/20 16:15: Stool Occult Blood Negative 04/22/20 05:00: White Blood Count 4.7L, Red Blood Count 2.31L, Hemoglobin 6.1*L, Hematocrit 20.7L, Mean Corpuscular Volume 90, Mean Corpuscular Hemoglobin 26.4L, Mean Corpuscular Hemoglobin Concent 29.5L, Red Cell Distribution Width 16.7H, Platelet Count 291, Mean Platelet Volume 6.1L, Neutrophils (%) (Auto) , Lymphocytes (%) (Auto) , Monocytes (%) (Auto) , Eosinophils (%) (Auto) , Basophils (%) (Auto) , Differential Total Cells Counted 100, Neutrophils % ( Manual) 70, Lymphocytes % (Manual) 22, Monocytes % (Manual) 5, Eosinophils % ( Manual) 3, Basophils % (Manual) 0, Band Neutrophils 0, Platelet Estimate Adequate, Platelet Morphology Normal, Hypochromasia 1+, Anisocytosis 1+, Sodium Level 127#L, Potassium Level 2.6*L, Chloride Level 96L, Carbon Dioxide Level 24 , Anion Gap 7, Blood Urea Nitrogen 9, Creatinine 1.2, Estimat Glomerular Filtration Rate 54.3, Glucose Level 579#*H, Calcium Level 6.6#L, Random Vancomycin Level 11.6 04/22/20 07:54: POC Whole Blood Glucose 104 04/22/20 08:25: White Blood Count 5.7, Red Blood Count 2.85L, Hemoglobin 7.6L, Hematocrit 25.1L , Mean Corpuscular Volume 88, Mean Corpuscular Hemoglobin 26.5L, Mean Corpuscular Hemoglobin Concent 30.1L, Red Cell Distribution Width 16.0H, Platelet Count 358, Mean Platelet Volume 5.9L, Neutrophils (%) (Auto) , Lymphocytes (%) (Auto) , Monocytes (%) (Auto) , Eosinophils (%) (Auto) , Basophils (%) (Auto) , Neutrophils % (Manual) [Pending], Lymphocytes % (Manual) [Pending], Platelet Estimate [Pending], Platelet Morphology [Pending], Sodium Level 142#, Potassium Level 3.4L, Chloride Level 104, Carbon Dioxide Level 30, Anion Gap 8, Blood Urea Nitrogen 10, Creatinine 1.2, Estimat Glomerular Filtration Rate 54.3, Glucose Level 112#H, Calcium Level 8.5# Height (Feet): 5 Height (Inches): 10.00 Weight (Pounds): 200 Objective GENERAL: Alert, awake, and oriented. LUNGS: Decreased breath sounds bilaterally. HEART: S1 and S2 regular. ABDOMEN: Ostomy noted. EXTREMITIES: No cyanosis. No clubbing. NEURO: No changes. Joby Yoon Apr 22, 2020 09:13
[2020-04-22] MEDS: Doxazosin 4mg tab ORAL SCH (09:19)
[2020-04-22] MEDS: Docusate 100mg cap ORAL SCH ×2 (09:19→21:00)
[2020-04-22] MEDS: Amiodarone 200mg tab ORAL SCH ×2 (09:19→17:00)
[2020-04-22] MEDS: Phospha 250 Neutral tab ORAL SCH ×3 (09:19→17:00)
--- NOTE | 2020-04-22 09:59 | NUR ---
NURSE NOTES: Dr Jeronimo is aware about K 3.4, NA 142 HB 7.6, HCT 251 BS 112, no new order to RN. Will continue to monitor.
[2020-04-22] MEDS ORDERED: Vancomycin 1.25gm/NS Premix q24h IVPB ONE (10:00)
--- NOTE | 2020-04-22 10:02 | Pulmonology Progress Note ---
Subjective ROS Limited/Unobtainable: No Interval Events: None new Constitutional: Denies: fever HEENT: Repors: no symptoms Respiratory: Reports: no symptoms Cardiovascular: Reports: no symptoms Gastrointestinal/Abdominal: Denies: nausea, vomiting, diarrhea Genitourinary: Reports: no symptoms Psychiatric: Denies: depression Skin: Denies: rash Musculoskeletal: Denies: pain Allergies: Coded Allergies: LISINOPRIL (Verified Allergy, Unknown, Hives, 04/12/14) Objective Last 24 Hour Vital Signs Date Time Temp Pulse Resp B/P (MAP) Pulse Ox O2 Delivery O2 Flow Rate FiO2 04/22/20 08:00 97.7 93 20 154/74 (100) 97 04/22/20 07:46 89 04/22/20 07:08 98.8 04/22/20 04:59 85 122/60 04/22/20 04:59 122/60 04/22/20 04:00 98.8 85 18 122/60 (80) 95 04/22/20 04:00 85 04/22/20 00:00 98.6 91 19 139/63 (88) 91 04/22/20 00:00 89 04/21/20 23:43 88 138/63 04/21/20 23:42 138/63 04/21/20 21:00 Room Air 04/21/20 20:00 97.5 91 18 155/67 (96) 94 04/21/20 20:00 89 04/21/20 17:04 98 158/77 04/21/20 17:04 158/77 04/21/20 16:00 98.6 98 18 158/77 (104) 100 04/21/20 16:00 93 04/21/20 12:10 93 146/76 04/21/20 12:09 146/76 04/21/20 12:00 85 04/21/20 12:00 98.2 93 18 146/76 (99) 100 Intake and Output 04/21/20 04/22/20 19:00 07:00 Intake Total 480 ml Output Total 350 ml 1600 ml Balance 130 ml -1600 ml Intake Oral 480 ml Output Urine Total 350 ml 1600 ml General Appearance: no acute distress HEENT: normocephalic Respiratory: chest wall non-tender Cardiovascular: normal peripheral pulses Abdomen: normal bowel sounds Laboratory Tests 04/21/20 16:15: Stool Occult Blood Negative 04/22/20 05:00: White Blood Count 4.7L, Red Blood Count 2.31L, Hemoglobin 6.1*L, Hematocrit 20.7L, Mean Corpuscular Volume 90, Mean Corpuscular Hemoglobin 26.4L, Mean Corpuscular Hemoglobin Concent 29.5L, Red Cell Distribution Width 16.7H, Platelet Count 291, Mean Platelet Volume 6.1L, Neutrophils (%) (Auto) , Lymphocytes (%) (Auto) , Monocytes (%) (Auto) , Eosinophils (%) (Auto) , Basophils (%) (Auto) , Differential Total Cells Counted 100, Neutrophils % ( Manual) 70, Lymphocytes % (Manual) 22, Monocytes % (Manual) 5, Eosinophils % ( Manual) 3, Basophils % (Manual) 0, Band Neutrophils 0, Platelet Estimate Adequate, Platelet Morphology Normal, Hypochromasia 1+, Anisocytosis 1+, Sodium Level 127#L, Potassium Level 2.6*L, Chloride Level 96L, Carbon Dioxide Level 24 , Anion Gap 7, Blood Urea Nitrogen 9, Creatinine 1.2, Estimat Glomerular Filtration Rate 54.3, Glucose Level 579#*H, Calcium Level 6.6#L, Random Vancomycin Level 11.6 04/22/20 07:54: POC Whole Blood Glucose 104 04/22/20 08:25: White Blood Count 5.7, Red Blood Count 2.85L, Hemoglobin 7.6L, Hematocrit 25.1L , Mean Corpuscular Volume 88, Mean Corpuscular Hemoglobin 26.5L, Mean Corpuscular Hemoglobin Concent 30.1L, Red Cell Distribution Width 16.0H, Platelet Count 358, Mean Platelet Volume 5.9L, Neutrophils (%) (Auto) , Lymphocytes (%) (Auto) , Monocytes (%) (Auto) , Eosinophils (%) (Auto) , Basophils (%) (Auto) , Differential Total Cells Counted 100, Neutrophils % ( Manual) 74, Lymphocytes % (Manual) 18L, Monocytes % (Manual) 7, Eosinophils % ( Manual) 1, Basophils % (Manual) 0, Band Neutrophils 0, Platelet Estimate Adequate, Platelet Morphology Normal, Hypochromasia 1+, Anisocytosis 1+, Sodium Level 142#, Potassium Level 3.4L, Chloride Level 104, Carbon Dioxide Level 30, Anion Gap 8, Blood Urea Nitrogen 10, Creatinine 1.2, Estimat Glomerular Filtration Rate 54.3, Glucose Level 112#H, Calcium Level 8.5# Current Medications Medications (Trade) Dose Ordered Sig/Debbie Route PRN Reason Start Time Stop Time Status Last Admin Dose Admin Amiodarone HCl (Cordarone) 200 mg BID ORAL 04/19/20 18:00 07/18/20 08:59 04/22/20 09:19 Bisacodyl (Dulcolax) 10 mg DAILYPRN PRN RECTAL Constipation 04/18/20 14:30 07/17/20 14:29 Dextrose (Dextrose 50%) 25 ml Q30M PRN IV Hypoglycemia 04/18/20 14:30 07/17/20 14:29 Dextrose (Dextrose 50%) 50 ml Q30M PRN IV Hypoglycemia 04/18/20 14:30 07/17/20 14:29 Diltiazem HCl (Cardizem Tab) 90 mg EVERY 6 HOURS ORAL 04/19/20 18:00 05/18/20 21:59 04/22/20 04:59 Diphenhydramine HCl (Benadryl) 25 mg Q6H PRN ORAL Itching/Pruritis 04/18/20 14:30 05/18/20 14:29 Docusate Sodium (Colace) 100 mg EVERY 12 HOURS ORAL 04/18/20 21:00 05/18/20 20:59 04/22/20 09:19 Doxazosin Mesylate (Cardura) 4 mg DAILY ORAL 04/19/20 09:00 05/19/20 08:59 04/22/20 09:19 Duloxetine HCl (Cymbalta) 60 mg BID ORAL 04/19/20 18:00 07/17/20 17:59 04/22/20 09:19 Gabapentin (Neurontin) 300 mg BEDTIME ORAL 04/18/20 21:00 05/18/20 20:59 04/21/20 22:10 Hydralazine HCl (Apresoline) 50 mg Q6HR ORAL 04/18/20 18:00 07/17/20 17:59 04/22/20 04:59 Lorazepam (Ativan 2mg/ml 1ml) 0.5 mg Q4H PRN IV For Anxiety 04/18/20 14:30 04/25/20 14:29 Magnesium Hydroxide (Mom) 30 ml HSPRN PRN ORAL Constipation 04/18/20 14:30 05/18/20 14:29 Methocarbamol (Robaxin) 500 mg QIDPRN PRN ORAL Muscle Spasm 04/18/20 14:30 05/18/20 14:29 04/21/20 18:37 Micafungin Sodium 100 mg/Sodium Chloride 110 ml @ 110 mls/hr Q24H IVPB 04/18/20 21:00 04/25/20 20:59 04/21/20 22:10 Naloxone HCl (Narcan) 0.2 mg Q2M PRN IVP respiratory depression 04/20/20 14:00 07/19/20 13:59 Ondansetron HCl (Zofran) 4 mg Q6H PRN IVP Nausea & Vomiting 04/18/20 14:30 05/18/20 14:29 Oxycodone/ Acetaminophen (Percocet 10/325) 1 tab Q4H PRN ORAL For Pain 04/20/20 17:30 04/27/20 17:29 04/22/20 06:38 Phosphorus (Phospha 250 Neutral) 250 mg THREE TIMES A DAY ORAL 04/18/20 18:00 05/18/20 17:59 04/22/20 09:19 Polyethylene Glycol (Miralax) 17 gm DAILYPRN PRN ORAL Constipation 04/18/20 14:30 05/18/20 14:29 Polymyxin B Sulfate 362513 units/Dextrose 550 ml @ 550 mls/hr Q12H IV 04/18/20 17:00 04/25/20 16:59 04/22/20 04:59 Potassium Chloride (K-Dur) 40 meq DAILY ORAL 04/19/20 09:00 07/18/20 08:59 04/22/20 09:19 Vancomycin HCl (Vanco pharmacy to dose) 1 ea DAILY PRN MISC Per rx protocol 04/18/20 14:45 05/18/20 14:44 Vancomycin/Sodium Chloride 275 ml @ 183.333 mls/hr ONCE ONCE IVPB 04/22/20 10:00 04/22/20 11:29 Zolpidem Tartrate (Ambien) 5 mg HSPRN PRN ORAL Insomnia 04/20/20 16:30 04/27/20 16:29 04/22/20 02:55 Assessment/Plan Assessment/Plan IMPRESSION: 1. Small left pleural effusion. 2. Bibasilar infiltrates. 3. History of chronic pain. 4. Atrial fibrillation. 5. [facility] resident. DISCUSSION: Continue medications including Cardizem. Resume home medications. Continue oxygen and pulmonary hygiene. Seven Yao Omar Syed MD Apr 22, 2020 10:02
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
--- NOTE | 2020-04-22 11:00 | NUR ---
NURSE NOTES: Dr BERNARD is aware about a fib with HR 130, waiting to call back. will continue to monitor.
[2020-04-22 11:45] VITALS: BP 158/77
--- NOTE | 2020-04-22 12:37 | NUR ---
NURSE NOTES: pt has one more episode Afib with HR 134, dR Cormier IS AWARE ORDERED STAT ECG, noted and carried out. will continue to monitor.
--- NOTE | 2020-04-22 13:09 | Cardiac Electrophysiology PN ---
Assessment/Plan Assessment/Plan 1. Recurrent atrial flutter with rapid ventricular response despite amiodarone 200 mg bid and Cardizem 90 mg po every 6 hours Eliquis was resumed. EPS and ablation at [facility] as out patient. Add Lopressor 25 bid 2. Severe anemia, s/p blood transfusion. FU GI and hematology 3. Hypertension. On Cardizem, Lasix 40 mg po b.i.d. and hydralazine 50 mg every 6 hours. Add Lopressor 25 bid 4. Hyperlipidemia, on Lipitor. 5. Pleural effusion. 6. History of diverticulitis requiring partial colectomy and colostomy placement. 7. Ischemic colitis proximal to colostomy insertion from last admission. Subjective Subjective Had recurrence of atrial fluter at 10 am and 12.36 today. No CP or SOB Objective Last 24 Hour Vital Signs Date Time Temp Pulse Resp B/P (MAP) Pulse Ox O2 Delivery O2 Flow Rate FiO2 04/22/20 11:47 96 158/77 04/22/20 11:47 158/77 04/22/20 11:45 97.3 96 20 158/77 (104) 98 04/22/20 11:41 91 04/22/20 09:00 Room Air 04/22/20 08:00 97.7 93 20 154/74 (100) 97 04/22/20 07:46 89 04/22/20 07:08 98.8 04/22/20 04:59 85 122/60 04/22/20 04:59 122/60 04/22/20 04:00 98.8 85 18 122/60 (80) 95 04/22/20 04:00 85 04/22/20 00:00 98.6 91 19 139/63 (88) 91 04/22/20 00:00 89 04/21/20 23:43 88 138/63 04/21/20 23:42 138/63 04/21/20 21:00 Room Air 04/21/20 20:00 97.5 91 18 155/67 (96) 94 04/21/20 20:00 89 04/21/20 17:04 98 158/77 04/21/20 17:04 158/77 04/21/20 16:00 98.6 98 18 158/77 (104) 100 04/21/20 16:00 93 Intake and Output 04/21/20 04/22/20 18:59 06:59 Intake Total 480 ml Output Total 350 ml 1600 ml Balance 130 ml -1600 ml Intake Oral 480 ml Output Urine Total 350 ml 1600 ml Laboratory Tests Test 04/21/20 16:15 04/22/20 05:00 04/22/20 07:54 04/22/20 08:25 Stool Occult Blood Negative (NEGATIVE) White Blood Count 4.7 K/UL (4.8-10.8) L 5.7 K/UL (4.8-10.8) Red Blood Count 2.31 M/UL (4.20-5.40) L 2.85 M/UL (4.20-5.40) L Hemoglobin 6.1 G/DL (12.0-16.0) *L 7.6 G/DL (12.0-16.0) L Hematocrit 20.7 % (37.0-47.0) L 25.1 % (37.0-47.0) L Mean Corpuscular Volume 90 FL (80-99) 88 FL (80-99) Mean Corpuscular Hemoglobin 26.4 PG (27.0-31.0) L 26.5 PG (27.0-31.0) L Mean Corpuscular Hemoglobin Concent 29.5 G/DL (32.0-36.0) L 30.1 G/DL (32.0-36.0) L Red Cell Distribution Width 16.7 % (11.6-14.8) H 16.0 % (11.6-14.8) H Platelet Count 291 K/UL (150-450) 358 K/UL (150-450) Mean Platelet Volume 6.1 FL (6.5-10.1) L 5.9 FL (6.5-10.1) L Neutrophils (%) (Auto) % (45.0-75.0) % (45.0-75.0) Lymphocytes (%) (Auto) % (20.0-45.0) % (20.0-45.0) Monocytes (%) (Auto) % (1.0-10.0) % (1.0-10.0) Eosinophils (%) (Auto) % (0.0-3.0) % (0.0-3.0) Basophils (%) (Auto) % (0.0-2.0) % (0.0-2.0) Differential Total Cells Counted 100 100 Neutrophils % (Manual) 70 % (45-75) 74 % (45-75) Lymphocytes % (Manual) 22 % (20-45) 18 % (20-45) L Monocytes % (Manual) 5 % (1-10) 7 % (1-10) Eosinophils % (Manual) 3 % (0-3) 1 % (0-3) Basophils % (Manual) 0 % (0-2) 0 % (0-2) Band Neutrophils 0 % (0-8) 0 % (0-8) Platelet Estimate Adequate Adequate Platelet Morphology Normal Normal Hypochromasia 1+ 1+ Anisocytosis 1+ 1+ Sodium Level 127 MMOL/L (136-145) #L 142 MMOL/L (136-145) # Potassium Level 2.6 MMOL/L (3.5-5.1) *L 3.4 MMOL/L (3.5-5.1) L Chloride Level 96 MMOL/L (98-107) L 104 MMOL/L (98-107) Carbon Dioxide Level 24 MMOL/L (21-32) 30 MMOL/L (21-32) Anion Gap 7 mmol/L (5-15) 8 mmol/L (5-15) Blood Urea Nitrogen 9 mg/dL (7-18) 10 mg/dL (7-18) Creatinine 1.2 MG/DL (0.55-1.30) 1.2 MG/DL (0.55-1.30) Estimat Glomerular Filtration Rate 54.3 mL/min (>60) 54.3 mL/min (>60) Glucose Level 579 MG/DL (74-106) #*H 112 MG/DL (74-106) #H Calcium Level 6.6 MG/DL (8.5-10.1) #L 8.5 MG/DL (8.5-10.1) # Random Vancomycin Level 11.6 ug/mL POC Whole Blood Glucose 104 MG/DL (74-106) Objective NECK: No JVD. LUNGS: Clear. CARDIOVASCULAR: Irregular S1 and S2 with no gallop or murmur. ABDOMEN: Soft. EXTREMITIES: 1+ pitting edema. Carlos Dean MD Apr 22, 2020 13:09
--- NOTE | 2020-04-22 13:25 | NUR ---
NURSE NOTES: Dr Ramos visited pt and saw all A flutter strips and he ordered to cancelled stat ECG, noted and carried out. will continue to monitor.
--- NOTE | 2020-04-22 13:56 | General Progress Note ---
Assessment/Plan Assessment/Plan: 69-year-old female with PMH of A. fib, chronic pain, diverticulitis, HTN, HLD who presents from [facility] for uncontrolled chronic pain and A. fib RVR. #Afib w/ RVR - resolved -cont medical care on tele -likely 2/2 uncontrolled pain and electrolyte abnormality -s/p diltiazem PO and IV in ED, now rate controlled -cont home amiodarone, cardizem -Cardio, Dr. Crooks, consulted, recs appreciated -EP, Dr. Dean, consulted, recs appreciated -Continue Eliquis and monitor H&H #Iron Deficiency Anemia #Hx of FOBT + -s/p EGD/colon on 04/16 showing gastritis, ulcers near ostomy bag likely ischemic -Hemoglobin stable -ctm Hgb, transfuse for hgb <7 -7/2: s/p 1 U PRBC -d/w GI, Dr. Boyd, and Heme, Dr Wray, recs appreciated -ctm, no endoscopic intervention at this time #Hypokalemia #Hypomagnesemia -replaced, ctm -replace PRN #Left Plueral Effusion -CXR on admission w/slight increased left pleural effusion -pt w/no conversational dyspnea, lungs CTAB, ctm at this time -Pulm following #Hx Sepsis, HCAP/UTI, + ESBL -Sputum w/ multiple MDR organisms, now requiring aggressive AB -cont Micagungin, Polymoxin, Vancomyin for 2 more days -ID following #Chronic Pain -Continue Robaxin for spasms -Cont Percocet PRN -morphine for breakthrough pain -pain management eval appreciated #Seizure vs prolonged period of immobility #S/P Acute metabolic Encephalopathy -cont home meds #Hx of Colectomy w/ Colostomy -wound care DVT ppx: Xarelto --> hold given acute anemia, SCDs Full Code I spent 38 mins on this encounter w 20 min on care/coordination and pt counseling. D/w RN, consulting MDs Subjective Date patient seen: Apr 22, 2020 Time patient seen: 10:12 ROS Limited/Unobtainable: No Constitutional: Denies: chills, fever Cardiovascular: Denies: chest pain Respiratory: Denies: cough Gastrointestinal/Abdominal: Denies: abdominal pain Allergies: Coded Allergies: LISINOPRIL (Verified Allergy, Unknown, Hives, 04/12/14) Subjective Follow up for rapid atrial fibrillation, acute anemia. No new complaints today Labs initially drawn this morning likely an error as repeat tests were similar to yesterday Objective Last 24 Hour Vital Signs Date Time Temp Pulse Resp B/P (MAP) Pulse Ox O2 Delivery O2 Flow Rate FiO2 04/22/20 11:47 96 158/77 04/22/20 11:47 158/77 04/22/20 11:45 97.3 96 20 158/77 (104) 98 04/22/20 11:41 91 04/22/20 09:00 Room Air 04/22/20 08:00 97.7 93 20 154/74 (100) 97 04/22/20 07:46 89 04/22/20 07:08 98.8 04/22/20 04:59 85 122/60 04/22/20 04:59 122/60 04/22/20 04:00 98.8 85 18 122/60 (80) 95 04/22/20 04:00 85 04/22/20 00:00 98.6 91 19 139/63 (88) 91 04/22/20 00:00 89 04/21/20 23:43 88 138/63 04/21/20 23:42 138/63 04/21/20 21:00 Room Air 04/21/20 20:00 97.5 91 18 155/67 (96) 94 04/21/20 20:00 89 04/21/20 17:04 98 158/77 04/21/20 17:04 158/77 04/21/20 16:00 98.6 98 18 158/77 (104) 100 04/21/20 16:00 93 Intake and Output 04/21/20 04/22/20 19:00 07:00 Intake Total 480 ml Output Total 350 ml 1600 ml Balance 130 ml -1600 ml Intake Oral 480 ml Output Urine Total 350 ml 1600 ml Laboratory Tests 04/21/20 16:15: Stool Occult Blood Negative 04/22/20 05:00: White Blood Count 4.7L, Red Blood Count 2.31L, Hemoglobin 6.1*L, Hematocrit 20.7L, Mean Corpuscular Volume 90, Mean Corpuscular Hemoglobin 26.4L, Mean Corpuscular Hemoglobin Concent 29.5L, Red Cell Distribution Width 16.7H, Platelet Count 291, Mean Platelet Volume 6.1L, Neutrophils (%) (Auto) , Lymphocytes (%) (Auto) , Monocytes (%) (Auto) , Eosinophils (%) (Auto) , Basophils (%) (Auto) , Differential Total Cells Counted 100, Neutrophils % ( Manual) 70, Lymphocytes % (Manual) 22, Monocytes % (Manual) 5, Eosinophils % ( Manual) 3, Basophils % (Manual) 0, Band Neutrophils 0, Platelet Estimate Adequate, Platelet Morphology Normal, Hypochromasia 1+, Anisocytosis 1+, Sodium Level 127#L, Potassium Level 2.6*L, Chloride Level 96L, Carbon Dioxide Level 24 , Anion Gap 7, Blood Urea Nitrogen 9, Creatinine 1.2, Estimat Glomerular Filtration Rate 54.3, Glucose Level 579#*H, Calcium Level 6.6#L, Random Vancomycin Level 11.6 04/22/20 07:54: POC Whole Blood Glucose 104 04/22/20 08:25: White Blood Count 5.7, Red Blood Count 2.85L, Hemoglobin 7.6L, Hematocrit 25.1L , Mean Corpuscular Volume 88, Mean Corpuscular Hemoglobin 26.5L, Mean Corpuscular Hemoglobin Concent 30.1L, Red Cell Distribution Width 16.0H, Platelet Count 358, Mean Platelet Volume 5.9L, Neutrophils (%) (Auto) , Lymphocytes (%) (Auto) , Monocytes (%) (Auto) , Eosinophils (%) (Auto) , Basophils (%) (Auto) , Differential Total Cells Counted 100, Neutrophils % ( Manual) 74, Lymphocytes % (Manual) 18L, Monocytes % (Manual) 7, Eosinophils % ( Manual) 1, Basophils % (Manual) 0, Band Neutrophils 0, Platelet Estimate Adequate, Platelet Morphology Normal, Hypochromasia 1+, Anisocytosis 1+, Sodium Level 142#, Potassium Level 3.4L, Chloride Level 104, Carbon Dioxide Level 30, Anion Gap 8, Blood Urea Nitrogen 10, Creatinine 1.2, Estimat Glomerular Filtration Rate 54.3, Glucose Level 112#H, Calcium Level 8.5# Height (Feet): 5 Height (Inches): 10.00 Weight (Pounds): 200 General Appearance: no apparent distress, alert Neck: supple Cardiovascular: normal rate, regular rhythm Respiratory/Chest: lungs clear, normal breath sounds Abdomen: non tender, soft Marcos Pathak MD Apr 22, 2020 13:56
[2020-04-22 16:00] VITALS: BP 146/70
--- NOTE | 2020-04-22 16:03 | Hematology/Onc Progress Note ---
Assessment/Plan Assessment/Plan Assessment and Recs # Anemia of iron deficiency, with a ferritin that is less than 50 recentrly --> Anemia workup has been ordered, rule out gi bleed --> recheck ferritin, occult was + --> No evidence of hemolysis is noted, peripheral smear has been reviewed. --> Hgb goal >7. Transfuse prn. --> IRon IV x 5 days started 04/06 as ferritin is low--> ferritin now 290. --> Medications have been reviewed --> low threshold for gi evaluation in case has occult + --> holding xarelto at this time --> hgb trend 8.2-->7.2->8->7.4->7.6-->6.8->7.8->7.6 --> GI eval prn --> 04/21 stool ob negative # Hypercoagulable disorder is on xarelto for afib with rvr --> reviewed cards recs --> have dw Pcp --> monitor h/h--> per cards for watchman/ablation future # Leukopenia with gram neg pna, uti, sepsis, fevers, leukocytosis, a.flutter, respiratory failure, atx, dony, + ua, atx --> covid is neg --> abx svetlana and micafungin/polymyx-->hola/svetlana-->polymyxin/vanc/micafungin--> vanc --> as per id recs --> wbc trend 4.5-->4.1-->4-->5.7 # Respiratory failure, on vent initially 03/2020 --> now extubated, nc prn # Renal failure. --> improved # Diabetes. --> endo prn # Hypertension. --> per cards # Diabetes and hypertension, treatment per primary care team. --> a1c goal <8, acchuchecks qac and qhs # Patient with history of altered mental status. --> metabolic encephalopathy # Seizure history. # Chronic neck pain. # Lactic acidsis # HLD # Obesity # Dvt ppx xarelto (on hold) Appreciate consultation and vanessa RN Subjective Allergies: Coded Allergies: LISINOPRIL (Verified Allergy, Unknown, Hives, 6/25/14) Subjective 7/3 in general feeling better, dw team, off xarelto, for watchman by Jackie next week 04/22 s/p blood, hgb improved to 7.6, stool ob negative, room air Objective Objective Current Medications Medications (Trade) Dose Ordered Sig/Debbie Route PRN Reason Start Time Stop Time Status Last Admin Dose Admin Amiodarone HCl (Cordarone) 200 mg BID ORAL 04/19/20 18:00 07/18/20 08:59 04/22/20 09:19 Apixaban (Eliquis) 5 mg BID ORAL 04/22/20 18:00 07/21/20 17:59 Bisacodyl (Dulcolax) 10 mg DAILYPRN PRN RECTAL Constipation 04/18/20 14:30 07/17/20 14:29 Dextrose (Dextrose 50%) 25 ml Q30M PRN IV Hypoglycemia 04/18/20 14:30 07/17/20 14:29 Dextrose (Dextrose 50%) 50 ml Q30M PRN IV Hypoglycemia 04/18/20 14:30 07/17/20 14:29 Diltiazem HCl (Cardizem Tab) 90 mg EVERY 6 HOURS ORAL 04/19/20 18:00 05/18/20 21:59 04/22/20 11:47 Diphenhydramine HCl (Benadryl) 25 mg Q6H PRN ORAL Itching/Pruritis 04/18/20 14:30 05/18/20 14:29 Docusate Sodium (Colace) 100 mg EVERY 12 HOURS ORAL 04/18/20 21:00 05/18/20 20:59 04/22/20 09:19 Doxazosin Mesylate (Cardura) 4 mg DAILY ORAL 04/19/20 09:00 05/19/20 08:59 04/22/20 09:19 Duloxetine HCl (Cymbalta) 60 mg BID ORAL 04/19/20 18:00 07/17/20 17:59 04/22/20 09:19 Gabapentin (Neurontin) 300 mg BEDTIME ORAL 04/18/20 21:00 05/18/20 20:59 04/21/20 22:10 Hydralazine HCl (Apresoline) 50 mg Q6HR ORAL 04/18/20 18:00 07/17/20 17:59 04/22/20 11:47 Lorazepam (Ativan 2mg/ml 1ml) 0.5 mg Q4H PRN IV For Anxiety 04/18/20 14:30 04/25/20 14:29 Magnesium Hydroxide (Mom) 30 ml HSPRN PRN ORAL Constipation 04/18/20 14:30 05/18/20 14:29 Methocarbamol (Robaxin) 500 mg QIDPRN PRN ORAL Muscle Spasm 04/18/20 14:30 05/18/20 14:29 04/21/20 18:37 Metoprolol Tartrate (Lopressor) 25 mg Q12HR ORAL 04/22/20 21:00 07/21/20 20:59 Micafungin Sodium 100 mg/Sodium Chloride 110 ml @ 110 mls/hr Q24H IVPB 04/18/20 21:00 04/25/20 20:59 04/21/20 22:10 Naloxone HCl (Narcan) 0.2 mg Q2M PRN IVP respiratory depression 04/20/20 14:00 07/19/20 13:59 Ondansetron HCl (Zofran) 4 mg Q6H PRN IVP Nausea & Vomiting 04/18/20 14:30 05/18/20 14:29 Oxycodone/ Acetaminophen (Percocet 10/325) 1 tab Q4H PRN ORAL For Pain 04/20/20 17:30 04/27/20 17:29 04/22/20 11:43 Phosphorus (Phospha 250 Neutral) 250 mg THREE TIMES A DAY ORAL 04/18/20 18:00 05/18/20 17:59 04/22/20 12:06 Polyethylene Glycol (Miralax) 17 gm DAILYPRN PRN ORAL Constipation 04/18/20 14:30 05/18/20 14:29 Polymyxin B Sulfate [id number] units/Dextrose 550 ml @ 550 mls/hr Q12H IV 04/18/20 17:00 04/25/20 16:59 04/22/20 04:59 Potassium Chloride (K-Dur) 40 meq DAILY ORAL 04/19/20 09:00 07/18/20 08:59 04/22/20 09:19 Vancomycin HCl (Vanco pharmacy to dose) 1 ea DAILY PRN MISC Per rx protocol 04/18/20 14:45 05/18/20 14:44 Vancomycin HCl 750 mg/Sodium Chloride 275 ml @ 183.333 mls/hr Q12H IVPB 04/23/20 00:00 04/28/20 00:00 Zolpidem Tartrate (Ambien) 5 mg HSPRN PRN ORAL Insomnia 04/20/20 16:30 04/27/20 16:29 04/22/20 02:55 Last 24 Hour Vital Signs Date Time Temp Pulse Resp B/P (MAP) Pulse Ox O2 Delivery O2 Flow Rate FiO2 04/22/20 11:47 96 158/77 04/22/20 11:47 158/77 04/22/20 11:45 97.3 96 20 158/77 (104) 98 04/22/20 11:41 91 04/22/20 09:00 Room Air 04/22/20 08:00 97.7 93 20 154/74 (100) 97 04/22/20 07:46 89 04/22/20 07:08 98.8 04/22/20 04:59 85 122/60 04/22/20 04:59 122/60 04/22/20 04:00 98.8 85 18 122/60 (80) 95 04/22/20 04:00 85 04/22/20 00:00 98.6 91 19 139/63 (88) 91 04/22/20 00:00 89 04/21/20 23:43 88 138/63 04/21/20 23:42 138/63 04/21/20 21:00 Room Air 04/21/20 20:00 97.5 91 18 155/67 (96) 94 04/21/20 20:00 89 04/21/20 17:04 98 158/77 04/21/20 17:04 158/77 04/21/20 16:00 98.6 98 18 158/77 (104) 100 04/21/20 16:00 93 04/21/20 12:10 93 146/76 04/21/20 12:09 146/76 04/21/20 12:00 85 04/21/20 12:00 98.2 93 18 146/76 (99) 100 04/21/20 09:00 Room Air 04/21/20 08:00 86 04/21/20 08:00 97.7 86 19 122/65 (84) 97 04/21/20 05:03 94 150/71 04/21/20 05:03 150/71 04/21/20 04:00 96.1 94 22 150/71 (97) 96 04/21/20 04:00 82 04/21/20 01:05 94 146/70 04/21/20 01:05 146/70 04/21/20 00:00 96.8 94 20 146/70 (95) 96 04/20/20 21:00 Room Air 04/20/20 20:00 96 04/20/20 20:00 97.4 93 20 159/85 (109) 96 04/20/20 17:00 88 126/60 04/20/20 17:00 126/60 04/20/20 16:00 97.3 88 20 126/60 (82) 96 04/20/20 16:00 90 Intake and Output 04/21/20 04/22/20 19:00 07:00 Intake Total 480 ml Output Total 350 ml 1600 ml Balance 130 ml -1600 ml Intake Oral 480 ml Output Urine Total 350 ml 1600 ml Labs Test 04/19/20 18:05 04/20/20 05:05 04/20/20 17:53 04/21/20 06:50 White Blood Count 5.0 K/UL (4.8-10.8) 4.0 K/UL (4.8-10.8) 5.3 K/UL (4.8-10.8) Red Blood Count 2.82 M/UL (4.20-5.40) 2.92 M/UL (4.20-5.40) 2.81 M/UL (4.20-5.40) Hemoglobin 7.4 G/DL (12.0-16.0) 7.8 G/DL (12.0-16.0) 7.4 G/DL (12.0-16.0) Hematocrit 23.9 % (37.0-47.0) 25.3 % (37.0-47.0) 24.6 % (37.0-47.0) Mean Corpuscular Volume 85 FL (80-99) 87 FL (80-99) 88 FL (80-99) Mean Corpuscular Hemoglobin 26.2 PG (27.0-31.0) 26.8 PG (27.0-31.0) 26.5 PG (27.0-31.0) Mean Corpuscular Hemoglobin Concent 30.9 G/DL (32.0-36.0) 30.9 G/DL (32.0-36.0) 30.2 G/DL (32.0-36.0) Red Cell Distribution Width 16.6 % (11.6-14.8) 16.3 % (11.6-14.8) 16.2 % (11.6-14.8) Platelet Count 412 K/UL (150-450) 393 K/UL (150-450) 390 K/UL (150-450) Mean Platelet Volume 5.9 FL (6.5-10.1) 6.2 FL (6.5-10.1) 6.1 FL (6.5-10.1) Neutrophils (%) (Auto) % (45.0-75.0) % (45.0-75.0) % (45.0-75.0) Lymphocytes (%) (Auto) % (20.0-45.0) % (20.0-45.0) % (20.0-45.0) Monocytes (%) (Auto) % (1.0-10.0) % (1.0-10.0) % (1.0-10.0) Eosinophils (%) (Auto) % (0.0-3.0) % (0.0-3.0) % (0.0-3.0) Basophils (%) (Auto) % (0.0-2.0) % (0.0-2.0) % (0.0-2.0) Differential Total Cells Counted 100 100 Neutrophils % (Manual) 56 % (45-75) 61 % (45-75) Lymphocytes % (Manual) 30 % (20-45) 28 % (20-45) Monocytes % (Manual) 6 % (1-10) 10 % (1-10) Eosinophils % (Manual) 7 % (0-3) 1 % (0-3) Basophils % (Manual) 1 % (0-2) 0 % (0-2) Band Neutrophils 0 % (0-8) 0 % (0-8) Platelet Estimate Adequate Adequate Platelet Morphology Normal Normal Polychromasia 1+ Hypochromasia 1+ 1+ Anisocytosis 1+ 1+ Sodium Level 140 MMOL/L (136-145) 140 MMOL/L (136-145) Potassium Level 3.4 MMOL/L (3.5-5.1) 3.5 MMOL/L (3.5-5.1) Chloride Level 104 MMOL/L (98-107) 104 MMOL/L (98-107) Carbon Dioxide Level 28 MMOL/L (21-32) 28 MMOL/L (21-32) Anion Gap 8 mmol/L (5-15) 8 mmol/L (5-15) Blood Urea Nitrogen 5 mg/dL (7-18) 9 mg/dL (7-18) Creatinine 1.1 MG/DL (0.55-1.30) 1.1 MG/DL (0.55-1.30) Estimat Glomerular Filtration Rate > 60 mL/min (>60) > 60 mL/min (>60) Glucose Level 113 MG/DL (74-106) 118 MG/DL (74-106) Calcium Level 8.0 MG/DL (8.5-10.1) 8.4 MG/DL (8.5-10.1) Vancomycin Level Trough 29.9 ug/mL (5.0-12.0) Random Vancomycin Level 25.6 ug/mL 24.3 ug/mL Test 04/21/20 16:15 04/22/20 05:00 04/22/20 07:54 04/22/20 08:25 Stool Occult Blood Negative (NEGATIVE) White Blood Count 4.7 K/UL (4.8-10.8) 5.7 K/UL (4.8-10.8) Red Blood Count 2.31 M/UL (4.20-5.40) 2.85 M/UL (4.20-5.40) Hemoglobin 6.1 G/DL (12.0-16.0) 7.6 G/DL (12.0-16.0) Hematocrit 20.7 % (37.0-47.0) 25.1 % (37.0-47.0) Mean Corpuscular Volume 90 FL (80-99) 88 FL (80-99) Mean Corpuscular Hemoglobin 26.4 PG (27.0-31.0) 26.5 PG (27.0-31.0) Mean Corpuscular Hemoglobin Concent 29.5 G/DL (32.0-36.0) 30.1 G/DL (32.0-36.0) Red Cell Distribution Width 16.7 % (11.6-14.8) 16.0 % (11.6-14.8) Platelet Count 291 K/UL (150-450) 358 K/UL (150-450) Mean Platelet Volume 6.1 FL (6.5-10.1) 5.9 FL (6.5-10.1) Neutrophils (%) (Auto) % (45.0-75.0) % (45.0-75.0) Lymphocytes (%) (Auto) % (20.0-45.0) % (20.0-45.0) Monocytes (%) (Auto) % (1.0-10.0) % (1.0-10.0) Eosinophils (%) (Auto) % (0.0-3.0) % (0.0-3.0) Basophils (%) (Auto) % (0.0-2.0) % (0.0-2.0) Differential Total Cells Counted 100 100 Neutrophils % (Manual) 70 % (45-75) 74 % (45-75) Lymphocytes % (Manual) 22 % (20-45) 18 % (20-45) Monocytes % (Manual) 5 % (1-10) 7 % (1-10) Eosinophils % (Manual) 3 % (0-3) 1 % (0-3) Basophils % (Manual) 0 % (0-2) 0 % (0-2) Band Neutrophils 0 % (0-8) 0 % (0-8) Platelet Estimate Adequate Adequate Platelet Morphology Normal Normal Hypochromasia 1+ 1+ Anisocytosis 1+ 1+ Sodium Level 127 MMOL/L (136-145) 142 MMOL/L (136-145) Potassium Level 2.6 MMOL/L (3.5-5.1) 3.4 MMOL/L (3.5-5.1) Chloride Level 96 MMOL/L (98-107) 104 MMOL/L (98-107) Carbon Dioxide Level 24 MMOL/L (21-32) 30 MMOL/L (21-32) Anion Gap 7 mmol/L (5-15) 8 mmol/L (5-15) Blood Urea Nitrogen 9 mg/dL (7-18) 10 mg/dL (7-18) Creatinine 1.2 MG/DL (0.55-1.30) 1.2 MG/DL (0.55-1.30) Estimat Glomerular Filtration Rate 54.3 mL/min (>60) 54.3 mL/min (>60) Glucose Level 579 MG/DL (74-106) 112 MG/DL (74-106) Calcium Level 6.6 MG/DL (8.5-10.1) 8.5 MG/DL (8.5-10.1) Random Vancomycin Level 11.6 ug/mL POC Whole Blood Glucose 104 MG/DL (74-106) Height (Feet): 5 Height (Inches): 10.00 Weight (Pounds): 200 Objective Physical Exam Sp02 EP Interpretation: reviewed, normal General: Patient appears chronically ill Head: normocephalic, atraumatic Respiratory: , crackles - both lower lobes Cardiovascular: tachycardia Gastrointestinal: non tender, soft Musculoskeletal: other - Patient appears chronically debilitated both lower extremities are extended Neurologic: other - Some verbal response, but chronic disability Skin: no rash : abhishek+ Virgil Wray MD Apr 22, 2020 16:03
--- NOTE | 2020-04-22 16:12 | NUR ---
PT Note PT ronald completed, treatment initiated. Patient has pain all over but mostly in both knees, R>L. She also has muscle weakness with limitation in LE ROM due to pain, limiting her mobility. Patient needs physical therapy to increase her muscle strength and balance to improve her functional mobility. Addendum: 04/22/20 at 1613 by FENG BLEVINS PT Amended: Links added.
--- NOTE | 2020-04-22 16:30 | Infectious Diseases Prog Note ---
Assessment/Plan Assessment/Plan 1. hx esbl e.coli pna/acinetobacter pna, uti, sepsis, fevers, leukocytosis, a.flutter, respiratory failure, atx, dnoy, + ua, atx fungemia risk -s/p treatment - s/p polymyxin, micafungin and vancomycin - blood cultures negative - covid-19 testing negative x 4 - remove isolation - monitor labs - clinically stable 2. Respiratory failure, on vent. 3. Renal failure. 4. Diabetes. 5. Hypertension. 6. Diabetes and hypertension, treatment per primary care team. 7. Patient with history of altered mental status. 8. Seizure history. 9. Chronic neck pain. 10. Acute kidney injury and renal failure. 11. Allergies to lisinopril. 12. Social history is negative. 13. Family history is noncontributory. 14. MAR was noted. 15. Case was discussed with RN. 16. ICU care. 17. Skin care. 18. Continue treatment per primary consultants. Subjective Constitutional: Denies: fever Respiratory: Denies: shortness of breath Cardiovascular: Denies: chest pain Gastrointestinal/Abdominal: Denies: nausea, vomiting, diarrhea Genitourinary: Reports: other - + weiss Neurologic: Denies: headache Psychiatric: Denies: depression Skin: Denies: rash Hematologic: Denies: bleeding Musculoskeletal: Denies: pain Allergies: Coded Allergies: LISINOPRIL (Verified Allergy, Unknown, Hives, 04/12/14) Objective Last 24 Hour Vital Signs Date Time Temp Pulse Resp B/P (MAP) Pulse Ox O2 Delivery O2 Flow Rate FiO2 04/22/20 16:00 98.4 91 20 146/70 (95) 97 04/22/20 15:36 88 04/22/20 11:47 96 158/77 04/22/20 11:47 158/77 04/22/20 11:45 97.3 96 20 158/77 (104) 98 04/22/20 11:41 91 04/22/20 09:00 Room Air 04/22/20 08:00 97.7 93 20 154/74 (100) 97 04/22/20 07:46 89 04/22/20 07:08 98.8 04/22/20 04:59 85 122/60 04/22/20 04:59 122/60 04/22/20 04:00 98.8 85 18 122/60 (80) 95 04/22/20 04:00 85 04/22/20 00:00 98.6 91 19 139/63 (88) 91 04/22/20 00:00 89 04/21/20 23:43 88 138/63 04/21/20 23:42 138/63 04/21/20 21:00 Room Air 04/21/20 20:00 97.5 91 18 155/67 (96) 94 04/21/20 20:00 89 04/21/20 17:04 98 158/77 04/21/20 17:04 158/77 Height (Feet): 5 Height (Inches): 10.00 Weight (Pounds): 200 General Appearance: no acute distress HEENT: normocephalic, atraumatic, anicteric, mucous membranes moist Respiratory/Chest: lungs clear, normal breath sounds, no respiratory distress, no accessory muscle use Cardiovascular: normal rate, regular rhythm, no gallop/murmur, no JVD Abdomen: normal bowel sounds, soft, non tender, no organomegaly, non distended Genitourinary: other - + weiss - urine slt cloudy Extremities: no cyanosis Skin: no rash Neurologic/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 Previously demonstrated left suprahilar and perihilar infiltrates, right midlung infiltrate are probably unchanged left- sided pleural effusion appears slightly increased. The heart size is normal. Left arm PICC is now present Impression: Slightly increased left pleural effusion Stable bilateral infiltrates Chest x-ray - 04/20/20 - FINDINGS/IMPRESSION: Left upper extremity PICC line in the superior vena cava. Airspace consolidation with bronchiectasis within the medial aspect left upper lobe. Mild consolidation within the inferior aspect of the right lower lobe. Right perihilar opacity. Infiltrate in these areas are not excluded. No pleural effusion or pneumothorax. The heart size is enlarged. The aorta is calcified. Microbiology Date/Time Source Procedure Growth Status 04/18/20 14:50 Nasal Nares MRSA Culture - Final NO METHICILLIN RESISTANT STAPH AUREUS... Complete 04/18/20 14:50 Rectum - Final NO CARBAPENEM-RESISTANT ENTEROBACTERI... Complete Laboratory Tests Test 04/22/20 05:00 04/22/20 07:54 04/22/20 08:25 White Blood Count 4.7 K/UL (4.8-10.8) L 5.7 K/UL (4.8-10.8) Red Blood Count 2.31 M/UL (4.20-5.40) L 2.85 M/UL (4.20-5.40) L Hemoglobin 6.1 G/DL (12.0-16.0) *L 7.6 G/DL (12.0-16.0) L Hematocrit 20.7 % (37.0-47.0) L 25.1 % (37.0-47.0) L Mean Corpuscular Volume 90 FL (80-99) 88 FL (80-99) Mean Corpuscular Hemoglobin 26.4 PG (27.0-31.0) L 26.5 PG (27.0-31.0) L Mean Corpuscular Hemoglobin Concent 29.5 G/DL (32.0-36.0) L 30.1 G/DL (32.0-36.0) L Red Cell Distribution Width 16.7 % (11.6-14.8) H 16.0 % (11.6-14.8) H Platelet Count 291 K/UL (150-450) 358 K/UL (150-450) Mean Platelet Volume 6.1 FL (6.5-10.1) L 5.9 FL (6.5-10.1) L Neutrophils (%) (Auto) % (45.0-75.0) % (45.0-75.0) Lymphocytes (%) (Auto) % (20.0-45.0) % (20.0-45.0) Monocytes (%) (Auto) % (1.0-10.0) % (1.0-10.0) Eosinophils (%) (Auto) % (0.0-3.0) % (0.0-3.0) Basophils (%) (Auto) % (0.0-2.0) % (0.0-2.0) Differential Total Cells Counted 100 100 Neutrophils % (Manual) 70 % (45-75) 74 % (45-75) Lymphocytes % (Manual) 22 % (20-45) 18 % (20-45) L Monocytes % (Manual) 5 % (1-10) 7 % (1-10) Eosinophils % (Manual) 3 % (0-3) 1 % (0-3) Basophils % (Manual) 0 % (0-2) 0 % (0-2) Band Neutrophils 0 % (0-8) 0 % (0-8) Platelet Estimate Adequate Adequate Platelet Morphology Normal Normal Hypochromasia 1+ 1+ Anisocytosis 1+ 1+ Sodium Level 127 MMOL/L (136-145) #L 142 MMOL/L (136-145) # Potassium Level 2.6 MMOL/L (3.5-5.1) *L 3.4 MMOL/L (3.5-5.1) L Chloride Level 96 MMOL/L (98-107) L 104 MMOL/L (98-107) Carbon Dioxide Level 24 MMOL/L (21-32) 30 MMOL/L (21-32) Anion Gap 7 mmol/L (5-15) 8 mmol/L (5-15) Blood Urea Nitrogen 9 mg/dL (7-18) 10 mg/dL (7-18) Creatinine 1.2 MG/DL (0.55-1.30) 1.2 MG/DL (0.55-1.30) Estimat Glomerular Filtration Rate 54.3 mL/min (>60) 54.3 mL/min (>60) Glucose Level 579 MG/DL (74-106) #*H 112 MG/DL (74-106) #H Calcium Level 6.6 MG/DL (8.5-10.1) #L 8.5 MG/DL (8.5-10.1) # Random Vancomycin Level 11.6 ug/mL POC Whole Blood Glucose 104 MG/DL (74-106) Current Medications Medications (Trade) Dose Ordered Sig/Debbie Route PRN Reason Start Time Stop Time Status Last Admin Dose Admin Amiodarone HCl (Cordarone) 200 mg BID ORAL 04/19/20 18:00 07/18/20 08:59 04/22/20 09:19 Apixaban (Eliquis) 5 mg BID ORAL 04/22/20 18:00 07/21/20 17:59 Bisacodyl (Dulcolax) 10 mg DAILYPRN PRN RECTAL Constipation 04/18/20 14:30 07/17/20 14:29 Dextrose (Dextrose 50%) 25 ml Q30M PRN IV Hypoglycemia 04/18/20 14:30 07/17/20 14:29 Dextrose (Dextrose 50%) 50 ml Q30M PRN IV Hypoglycemia 04/18/20 14:30 07/17/20 14:29 Diltiazem HCl (Cardizem Tab) 90 mg EVERY 6 HOURS ORAL 04/19/20 18:00 05/18/20 21:59 04/22/20 11:47 Diphenhydramine HCl (Benadryl) 25 mg Q6H PRN ORAL Itching/Pruritis 04/18/20 14:30 05/18/20 14:29 Docusate Sodium (Colace) 100 mg EVERY 12 HOURS ORAL 04/18/20 21:00 05/18/20 20:59 04/22/20 09:19 Doxazosin Mesylate (Cardura) 4 mg DAILY ORAL 04/19/20 09:00 05/19/20 08:59 04/22/20 09:19 Duloxetine HCl (Cymbalta) 60 mg BID ORAL 04/19/20 18:00 07/17/20 17:59 04/22/20 09:19 Gabapentin (Neurontin) 300 mg BEDTIME ORAL 04/18/20 21:00 05/18/20 20:59 04/21/20 22:10 Hydralazine HCl (Apresoline) 50 mg Q6HR ORAL 04/18/20 18:00 07/17/20 17:59 04/22/20 11:47 Lorazepam (Ativan 2mg/ml 1ml) 0.5 mg Q4H PRN IV For Anxiety 04/18/20 14:30 04/25/20 14:29 Magnesium Hydroxide (Mom) 30 ml HSPRN PRN ORAL Constipation 04/18/20 14:30 05/18/20 14:29 Methocarbamol (Robaxin) 500 mg QIDPRN PRN ORAL Muscle Spasm 04/18/20 14:30 05/18/20 14:29 04/21/20 18:37 Metoprolol Tartrate (Lopressor) 25 mg Q12HR ORAL 04/22/20 21:00 07/21/20 20:59 Micafungin Sodium 100 mg/Sodium Chloride 110 ml @ 110 mls/hr Q24H IVPB 04/18/20 21:00 04/25/20 20:59 04/21/20 22:10 Naloxone HCl (Narcan) 0.2 mg Q2M PRN IVP respiratory depression 04/20/20 14:00 07/19/20 13:59 Ondansetron HCl (Zofran) 4 mg Q6H PRN IVP Nausea & Vomiting 04/18/20 14:30 05/18/20 14:29 Oxycodone/ Acetaminophen (Percocet 10/325) 1 tab Q4H PRN ORAL For Pain 04/20/20 17:30 04/27/20 17:29 04/22/20 11:43 Phosphorus (Phospha 250 Neutral) 250 mg THREE TIMES A DAY ORAL 04/18/20 18:00 05/18/20 17:59 04/22/20 12:06 Polyethylene Glycol (Miralax) 17 gm DAILYPRN PRN ORAL Constipation 04/18/20 14:30 05/18/20 14:29 Polymyxin B Sulfate 531639 units/Dextrose 550 ml @ 550 mls/hr Q12H IV 04/18/20 17:00 04/25/20 16:59 04/22/20 04:59 Potassium Chloride (K-Dur) 40 meq DAILY ORAL 04/19/20 09:00 07/18/20 08:59 04/22/20 09:19 Vancomycin HCl (Vanco pharmacy to dose) 1 ea DAILY PRN MISC Per rx protocol 04/18/20 14:45 05/18/20 14:44 Vancomycin HCl 750 mg/Sodium Chloride 275 ml @ 183.333 mls/hr Q12H IVPB 04/23/20 00:00 04/28/20 00:00 Zolpidem Tartrate (Ambien) 5 mg HSPRN PRN ORAL Insomnia 04/20/20 16:30 04/27/20 16:29 04/22/20 02:55 Jose Valdes MD Apr 22, 2020 16:30
--- NOTE | 2020-04-22 16:46 | NUR ---
NURSE NOTES: pt has no BM but colostomy bag is full of air, Dr Iglesias is aware and ordered to give milk of mag 30 now, noted and carried out. will continue to monitor.
--- NOTE | 2020-04-22 17:19 | NUR ---
NURSE NOTES: Pt is coughing and stated her cough is worse, Dr George is aware and ordered stat portable CXR, noted and carried out. will continue to monitor.
[2020-04-22] MEDS: Eliquis 5mg tablet ORAL SCH (17:33)
--- NOTE | 2020-04-22 17:34 | Nephrology Progress Note ---
Assessment/Plan Plan #Afib with RVR #HTN #Hypokalemia #Hypomagnesemia #Left Plueral Effusion #Hx Sepsis, HCAP/UTI, + ESBL #Chronic Pain #Iron Deficiency Anemia #Seizure vs prolonged period of immobility #S/P Acute metabolic Encephalopathy #Hx of Colectomy w/ Colostomy - tele - rate control per cardiology - resume AC- on apixaban - replete lytes - monitor h -s/p EGD/colon on 04/16 showing gastritis, ulcers near ostomy bag likely ischemic , biopsies obtained, follow-up pathology -ctm Hgb, transfuse for hgb <7 -cont home meds -wound care - monitor renal function Time spent 45 min - greater than 50% on care coordination and counseling Subjective ROS Limited/Unobtainable: No Constitutional: Reports: weakness HEENT: Denies: no symptoms, eye pain, blurred vision, tearing, double vision, ear pain, ear discharge, nose pain, nose congestion, throat pain, throat swelling, mouth pain, mouth swelling, other Genitourinary: Denies: no symptoms, burning, discharge, frequency, flank pain, hematuria, incontinence, pain, urgency, other Neurologic/Psychiatric: Denies: no symptoms, anxiety, depressed, emotional problems, headache, numbness, paresthesia, pre-existing deficit, seizure, tingling, tremors, weakness, other Subjective rate better controlled no chest pain no SOB hemoglobin improved s/p transfusion plan to start AC Objective Objective Last 24 Hour Vital Signs Date Time Temp Pulse Resp B/P (MAP) Pulse Ox O2 Delivery O2 Flow Rate FiO2 04/22/20 17:00 91 146/70 04/22/20 17:00 146/70 04/22/20 16:00 98.4 91 20 146/70 (95) 97 04/22/20 15:36 88 04/22/20 11:47 96 158/77 04/22/20 11:47 158/77 04/22/20 11:45 97.3 96 20 158/77 (104) 98 04/22/20 11:41 91 04/22/20 09:00 Room Air 04/22/20 08:00 97.7 93 20 154/74 (100) 97 04/22/20 07:46 89 04/22/20 07:08 98.8 04/22/20 04:59 85 122/60 7/5/20 04:59 122/60 04/22/20 04:00 98.8 85 18 122/60 (80) 95 04/22/20 04:00 85 04/22/20 00:00 98.6 91 19 139/63 (88) 91 04/22/20 00:00 89 04/21/20 23:43 88 138/63 04/21/20 23:42 138/63 04/21/20 21:00 Room Air 04/21/20 20:00 97.5 91 18 155/67 (96) 94 04/21/20 20:00 89 Intake and Output 04/21/20 04/22/20 19:00 07:00 Intake Total 480 ml Output Total 350 ml 1600 ml Balance 130 ml -1600 ml Intake Oral 480 ml Output Urine Total 350 ml 1600 ml Laboratory Tests 04/22/20 05:00: White Blood Count 4.7L, Red Blood Count 2.31L, Hemoglobin 6.1*L, Hematocrit 20.7L, Mean Corpuscular Volume 90, Mean Corpuscular Hemoglobin 26.4L, Mean Corpuscular Hemoglobin Concent 29.5L, Red Cell Distribution Width 16.7H, Platelet Count 291, Mean Platelet Volume 6.1L, Neutrophils (%) (Auto) , Lymphocytes (%) (Auto) , Monocytes (%) (Auto) , Eosinophils (%) (Auto) , Basophils (%) (Auto) , Differential Total Cells Counted 100, Neutrophils % ( Manual) 70, Lymphocytes % (Manual) 22, Monocytes % (Manual) 5, Eosinophils % ( Manual) 3, Basophils % (Manual) 0, Band Neutrophils 0, Platelet Estimate Adequate, Platelet Morphology Normal, Hypochromasia 1+, Anisocytosis 1+, Sodium Level 127#L, Potassium Level 2.6*L, Chloride Level 96L, Carbon Dioxide Level 24 , Anion Gap 7, Blood Urea Nitrogen 9, Creatinine 1.2, Estimat Glomerular Filtration Rate 54.3, Glucose Level 579#*H, Calcium Level 6.6#L, Random Vancomycin Level 11.6 04/22/20 07:54: POC Whole Blood Glucose 104 04/22/20 08:25: White Blood Count 5.7, Red Blood Count 2.85L, Hemoglobin 7.6L, Hematocrit 25.1L , Mean Corpuscular Volume 88, Mean Corpuscular Hemoglobin 26.5L, Mean Corpuscular Hemoglobin Concent 30.1L, Red Cell Distribution Width 16.0H, Platelet Count 358, Mean Platelet Volume 5.9L, Neutrophils (%) (Auto) , Lymphocytes (%) (Auto) , Monocytes (%) (Auto) , Eosinophils (%) (Auto) , Basophils (%) (Auto) , Differential Total Cells Counted 100, Neutrophils % ( Manual) 74, Lymphocytes % (Manual) 18L, Monocytes % (Manual) 7, Eosinophils % ( Manual) 1, Basophils % (Manual) 0, Band Neutrophils 0, Platelet Estimate Adequate, Platelet Morphology Normal, Hypochromasia 1+, Anisocytosis 1+, Sodium Level 142#, Potassium Level 3.4L, Chloride Level 104, Carbon Dioxide Level 30, Anion Gap 8, Blood Urea Nitrogen 10, Creatinine 1.2, Estimat Glomerular Filtration Rate 54.3, Glucose Level 112#H, Calcium Level 8.5# Height (Feet): 5 Height (Inches): 10.00 Weight (Pounds): 200 Venkat Montes M.D. Apr 22, 2020 17:33
--- NOTE | 2020-04-22 17:49 | NUR ---
NURSE NOTES: Dr Roy visited pt and is aware pt is coughing ordered Robitussin 100mg po Q6hr PRN, noted and carried out. will continue to monitor.
[2020-04-22] MEDS: guaiFENesin 100mg/5ml Liq ud ORAL PRN (17:54)
--- NOTE | 2020-04-22 18:07 | Diagnostic Imaging Report ---
ADDENDUM - Added by Neyda Flores MD on 04/22/2020 6:17 PM (-05:00) This study is a single frontal view with no lateral provided. Two images are provided but they are not annotated with either upright or decubitus positioning and so could represent repeat of the same projection/image. EXAM: XR Chest, 2 Views CLINICAL HISTORY: COUGH TECHNIQUE: Frontal and lateral views of the chest. COMPARISON: Chest x-ray 04/20/2020 FINDINGS: Stable left PICC line with tip near the cavoatrial junction. Increased coarse interstitial markings in the perihilar distribution bilaterally are noted with more soft tissue fullness around the right hilum. Lung volumes remain low especially on the right but there is a new interface along the peripheral right hemithorax that could reflect an interval pneumothorax. No evidence of tension. Mediastinal contours and osseous structures are unremarkable. No free air out of the diaphragms. IMPRESSION: Possible right pneumothorax. Recommend close follow-up chest x-ray with patient in a slightly different positioning, especially if the patient was imaged decubitus. No evidence of tension. <MYCVCSECTION> Communications: 04/22/20 18:14 Call Doctor Regarding Above results, called LISSETTE SARGENT on 04/22 18:14 (-07:00)
--- NOTE | 2020-04-22 18:15 | NUR ---
NURSE NOTES: Dr George is aware about CXR result ordered stat CXR on lateral decubitus position, noted and carried out. will continue to monitor.
--- NOTE | 2020-04-22 19:25 | NUR ---
HAND-OFF: Report given to JOSSELYN Roberts. Pt is awake and stable,endorsed plan of care. endorsed to F/U CXR result with Dr Jeronimo.
--- NOTE | 2020-04-22 19:30 | NUR ---
NURSE NOTES: Received pt from JOSSELYN Blanc , Pt is alert and oriented x4 on 2 L O2 via NC, in no acute distress, breathing even and unlabored. Pt has Desai cath in place , secured to leg, patent, draining yellow urine. is working well. pt has colostomy bag in place, only flatus at present. PICC FIDENCIO arm, patent, asymptomatic. Pt is sitting in semi fowlers, bed is locked in lowest position, bed alarm on, will continue to monitor pt
[2020-04-22 20:00] VITALS: BP 147/69
[2020-04-23] VITALS: BP 139/64
[2020-04-23] MEDS ORDERED: Vancomycin 750mg/NS 275ml IVPB SCH ×2
--- NOTE | 2020-04-23 00:02 | Diagnostic Imaging Report ---
EXAM: XR Chest, 1 View CLINICAL HISTORY: Cough, Decub images TECHNIQUE: Frontal view of the chest. COMPARISON: earlier same day chest x-ray FINDINGS: Lungs: Mild atelectatic changes in the right middle lobe are incidentally noted. Pleural space: Bilateral decubitus views of the chest were obtained. The right decubitus view shows blunting of the right costophrenic evidenced a possible loculated right basilar effusion. The left decubitus view shows atelectatic changes in the left lung without a significant pleural effusion. No pneumothorax. Heart: Unremarkable. No cardiomegaly. Mediastinum: Unremarkable. Bones/joints: Unremarkable. IMPRESSION: Small right pleural effusion. Right middle lobe atelectasis. Otherwise no acute findings.
[2020-04-23] MEDS: HydrALAZINE 50mg tab ORAL SCH ×5 (02:11→23:47)
[2020-04-23] MEDS: dilTIAZem HCl 90mg tab ORAL SCH ×5 (02:11→23:48)
[2020-04-23 04:00] VITALS: BP 134/71
--- NOTE | 2020-04-23 06:24 | Hematology/Onc Progress Note ---
Assessment/Plan Assessment/Plan Assessment and Recs # Anemia of iron deficiency, with a ferritin that is less than 50 recentrly --> Anemia workup has been ordered, rule out gi bleed --> recheck ferritin, occult was + --> No evidence of hemolysis is noted, peripheral smear has been reviewed. --> Hgb goal >7. Transfuse prn. --> IRon IV x 5 days started 04/06 as ferritin is low--> ferritin now 290. --> Medications have been reviewed --> low threshold for gi evaluation in case has occult + --> holding xarelto at this time-->eliquis restarted --> hgb trend 8.2-->7.2->8->7.4->7.6-->6.8->7.8->7.6 --> GI eval prn --> 04/21 stool ob negative # Hypercoagulable disorder is on xarelto for afib with rvr --> reviewed cards recs --> have dw Pcp --> monitor h/h--> per cards for watchman/ablation future # Leukopenia with gram neg pna, uti, sepsis, fevers, leukocytosis, a.flutter, respiratory failure, atx, dony, + ua, atx --> covid is neg --> abx svetlana and micafungin/polymyx-->hola/svetlana-->polymyxin/vanc/micafungin--> vanc --> as per id recs --> wbc trend 4.5-->4.1-->4-->5.7 # Respiratory failure, on vent initially 03/2020 --> now extubated, nc prn # Renal failure. --> improved # Diabetes. --> endo prn # Hypertension. --> per cards # Diabetes and hypertension, treatment per primary care team. --> a1c goal <8, acchuchecks qac and qhs # Patient with history of altered mental status. --> metabolic encephalopathy # Seizure history. # Chronic neck pain. # Lactic acidsis # HLD # Obesity # Dvt ppx --> eliquis restarted Appreciate consultation and vanessa RN Subjective Cardiovascular: Denies: no symptoms, chest pain, edema, irregular heart rate, lightheadedness, palpitations, syncope, other Respiratory: Denies: no symptoms, cough, shortness of breath, SOB with excertion, SOB at rest, sputum, wheezing, other Gastrointestinal/Abdominal: Denies: no symptoms, abdomen distended, abdominal pain, black stools, tarry stools, blood in stool, constipated, diarrhea, difficulty swallowing, nausea, poor appetite, poor fluid intake, rectal bleeding , vomiting, other Genitourinary: Denies: no symptoms, burning, discharge, frequency, flank pain, hematuria, incontinence, pain, urgency, other Neurologic/Psychiatric: Denies: no symptoms, anxiety, depressed, emotional problems, headache, numbness, paresthesia, pre-existing deficit, seizure, tingling, tremors, weakness, other Endocrine: Denies: no symptoms, excessive sweating, flushing, intolerance to cold, intolerance to heat, increased hunger, increased thirst, increased urine, unexplained weight gain, unexplained weight loss, other Allergies: Coded Allergies: LISINOPRIL (Verified Allergy, Unknown, Hives, 04/12/14) Subjective 04/20 in general feeling better, dw team, off xarelto, for watchman by Jackie next week 04/22 s/p blood, hgb improved to 7.6, stool ob negative, room air 04/23 is back on eliquis, as per cards recs, hgb remains stable Objective Objective Current Medications Medications (Trade) Dose Ordered Sig/Debbie Route PRN Reason Start Time Stop Time Status Last Admin Dose Admin Amiodarone HCl (Cordarone) 200 mg BID ORAL 04/19/20 18:00 07/18/20 08:59 04/22/20 17:00 Apixaban (Eliquis) 5 mg BID ORAL 04/22/20 18:00 07/21/20 17:59 04/22/20 17:33 Bisacodyl (Dulcolax) 10 mg DAILYPRN PRN RECTAL Constipation 04/18/20 14:30 07/17/20 14:29 Dextrose (Dextrose 50%) 25 ml Q30M PRN IV Hypoglycemia 04/18/20 14:30 07/17/20 14:29 Dextrose (Dextrose 50%) 50 ml Q30M PRN IV Hypoglycemia 04/18/20 14:30 07/17/20 14:29 Diltiazem HCl (Cardizem Tab) 90 mg EVERY 6 HOURS ORAL 04/19/20 18:00 05/18/20 21:59 04/23/20 02:11 Diphenhydramine HCl (Benadryl) 25 mg Q6H PRN ORAL Itching/Pruritis 04/18/20 14:30 05/18/20 14:29 Docusate Sodium (Colace) 100 mg EVERY 12 HOURS ORAL 04/18/20 21:00 05/18/20 20:59 04/22/20 09:19 Doxazosin Mesylate (Cardura) 4 mg DAILY ORAL 04/19/20 09:00 05/19/20 08:59 04/22/20 09:19 Duloxetine HCl (Cymbalta) 60 mg BID ORAL 04/19/20 18:00 07/17/20 17:59 04/22/20 17:00 Gabapentin (Neurontin) 300 mg BEDTIME ORAL 04/18/20 21:00 05/18/20 20:59 04/22/20 21:51 Guaifenesin (Robitussin) 100 mg Q6H PRN ORAL For Cough 04/22/20 17:45 07/21/20 17:44 04/22/20 17:54 Hydralazine HCl (Apresoline) 50 mg Q6HR ORAL 04/18/20 18:00 07/17/20 17:59 04/23/20 02:11 Lorazepam (Ativan 2mg/ml 1ml) 0.5 mg Q4H PRN IV For Anxiety 04/18/20 14:30 04/25/20 14:29 Magnesium Hydroxide (Mom) 30 ml HSPRN PRN ORAL Constipation 04/18/20 14:30 05/18/20 14:29 04/22/20 17:00 Methocarbamol (Robaxin) 500 mg QIDPRN PRN ORAL Muscle Spasm 04/18/20 14:30 05/18/20 14:29 04/21/20 18:37 Metoprolol Tartrate (Lopressor) 25 mg Q12HR ORAL 04/22/20 21:00 07/21/20 20:59 04/22/20 21:50 Naloxone HCl (Narcan) 0.2 mg Q2M PRN IVP respiratory depression 04/20/20 14:00 07/19/20 13:59 Ondansetron HCl (Zofran) 4 mg Q6H PRN IVP Nausea & Vomiting 04/18/20 14:30 05/18/20 14:29 Oxycodone/ Acetaminophen (Percocet 10) 1 tab Q4H PRN ORAL For Pain 04/20/20 17:30 04/27/20 17:29 04/23/20 02:15 Phosphorus (Phospha 250 Neutral) 250 mg THREE TIMES A DAY ORAL 04/18/20 18:00 05/18/20 17:59 04/22/20 17:00 Polyethylene Glycol (Miralax) 17 gm DAILYPRN PRN ORAL Constipation 04/18/20 14:30 05/18/20 14:29 Potassium Chloride (K-Dur) 40 meq DAILY ORAL 04/19/20 09:00 07/18/20 08:59 04/22/20 09:19 Zolpidem Tartrate (Ambien) 5 mg HSPRN PRN ORAL Insomnia 04/20/20 16:30 04/27/20 16:29 04/22/20 21:51 Last 24 Hour Vital Signs Date Time Temp Pulse Resp B/P (MAP) Pulse Ox O2 Delivery O2 Flow Rate FiO2 04/23/20 04:00 76 04/23/20 04:00 98.2 77 17 134/71 (92) 97 04/23/20 02:45 98.1 04/23/20 02:11 77 139/64 04/23/20 02:11 139/64 04/23/20 00:00 98.1 73 17 139/64 (89) 97 04/23/20 00:00 77 04/22/20 21:50 102 147/69 04/22/20 21:00 Nasal Cannula 2.0 Nasal Cannula 2.0 04/22/20 20:00 101 04/22/20 20:00 97.8 102 18 147/69 (95) 94 04/22/20 17:00 91 146/70 04/22/20 17:00 146/70 04/22/20 16:00 98.4 91 20 146/70 (95) 97 04/22/20 15:36 88 04/22/20 11:47 96 158/77 04/22/20 11:47 158/77 04/22/20 11:45 97.3 96 20 158/77 (104) 98 04/22/20 11:41 91 04/22/20 09:00 Room Air 04/22/20 08:00 97.7 93 20 154/74 (100) 97 04/22/20 07:46 89 04/22/20 04:59 85 122/60 04/22/20 04:59 122/60 04/22/20 04:00 98.8 85 18 122/60 (80) 95 04/22/20 04:00 85 04/22/20 00:00 98.6 91 19 139/63 (88) 91 04/22/20 00:00 89 04/21/20 23:43 88 138/63 04/21/20 23:42 138/63 04/21/20 21:00 Room Air 04/21/20 20:00 97.5 91 18 155/67 (96) 94 04/21/20 20:00 89 04/21/20 17:04 98 158/77 04/21/20 17:04 158/77 04/21/20 16:00 98.6 98 18 158/77 (104) 100 04/21/20 16:00 93 04/21/20 12:10 93 146/76 04/21/20 12:09 146/76 04/21/20 12:00 85 04/21/20 12:00 98.2 93 18 146/76 (99) 100 04/21/20 09:00 Room Air 04/21/20 08:00 86 04/21/20 08:00 97.7 86 19 122/65 (84) 97 Intake and Output 04/22/20 04/23/20 19:00 07:00 Intake Total 995.000 ml 480 ml Output Total 2400 ml 1500 ml Balance -1405.000 ml -1020 ml Intake Oral 720 ml 480 ml IV Total 275.000 ml Output Urine Total 2400 ml 1500 ml # Voids 1 Labs Test 04/20/20 17:53 04/21/20 06:50 04/21/20 16:15 04/22/20 05:00 Random Vancomycin Level 25.6 ug/mL 24.3 ug/mL 11.6 ug/mL White Blood Count 5.3 K/UL (4.8-10.8) 4.7 K/UL (4.8-10.8) Red Blood Count 2.81 M/UL (4.20-5.40) 2.31 M/UL (4.20-5.40) Hemoglobin 7.4 G/DL (12.0-16.0) 6.1 G/DL (12.0-16.0) Hematocrit 24.6 % (37.0-47.0) 20.7 % (37.0-47.0) Mean Corpuscular Volume 88 FL (80-99) 90 FL (80-99) Mean Corpuscular Hemoglobin 26.5 PG (27.0-31.0) 26.4 PG (27.0-31.0) Mean Corpuscular Hemoglobin Concent 30.2 G/DL (32.0-36.0) 29.5 G/DL (32.0-36.0) Red Cell Distribution Width 16.2 % (11.6-14.8) 16.7 % (11.6-14.8) Platelet Count 390 K/UL (150-450) 291 K/UL (150-450) Mean Platelet Volume 6.1 FL (6.5-10.1) 6.1 FL (6.5-10.1) Neutrophils (%) (Auto) % (45.0-75.0) % (45.0-75.0) Lymphocytes (%) (Auto) % (20.0-45.0) % (20.0-45.0) Monocytes (%) (Auto) % (1.0-10.0) % (1.0-10.0) Eosinophils (%) (Auto) % (0.0-3.0) % (0.0-3.0) Basophils (%) (Auto) % (0.0-2.0) % (0.0-2.0) Differential Total Cells Counted 100 100 Neutrophils % (Manual) 61 % (45-75) 70 % (45-75) Lymphocytes % (Manual) 28 % (20-45) 22 % (20-45) Monocytes % (Manual) 10 % (1-10) 5 % (1-10) Eosinophils % (Manual) 1 % (0-3) 3 % (0-3) Basophils % (Manual) 0 % (0-2) 0 % (0-2) Band Neutrophils 0 % (0-8) 0 % (0-8) Platelet Estimate Adequate Adequate Platelet Morphology Normal Normal Hypochromasia 1+ 1+ Anisocytosis 1+ 1+ Sodium Level 140 MMOL/L (136-145) 127 MMOL/L (136-145) Potassium Level 3.5 MMOL/L (3.5-5.1) 2.6 MMOL/L (3.5-5.1) Chloride Level 104 MMOL/L (98-107) 96 MMOL/L (98-107) Carbon Dioxide Level 28 MMOL/L (21-32) 24 MMOL/L (21-32) Anion Gap 8 mmol/L (5-15) 7 mmol/L (5-15) Blood Urea Nitrogen 9 mg/dL (7-18) 9 mg/dL (7-18) Creatinine 1.1 MG/DL (0.55-1.30) 1.2 MG/DL (0.55-1.30) Estimat Glomerular Filtration Rate > 60 mL/min (>60) 54.3 mL/min (>60) Glucose Level 118 MG/DL (74-106) 579 MG/DL (74-106) Calcium Level 8.4 MG/DL (8.5-10.1) 6.6 MG/DL (8.5-10.1) Stool Occult Blood Negative (NEGATIVE) Test 04/22/20 07:54 04/22/20 08:25 POC Whole Blood Glucose 104 MG/DL (74-106) White Blood Count 5.7 K/UL (4.8-10.8) Red Blood Count 2.85 M/UL (4.20-5.40) Hemoglobin 7.6 G/DL (12.0-16.0) Hematocrit 25.1 % (37.0-47.0) Mean Corpuscular Volume 88 FL (80-99) Mean Corpuscular Hemoglobin 26.5 PG (27.0-31.0) Mean Corpuscular Hemoglobin Concent 30.1 G/DL (32.0-36.0) Red Cell Distribution Width 16.0 % (11.6-14.8) Platelet Count 358 K/UL (150-450) Mean Platelet Volume 5.9 FL (6.5-10.1) Neutrophils (%) (Auto) % (45.0-75.0) Lymphocytes (%) (Auto) % (20.0-45.0) Monocytes (%) (Auto) % (1.0-10.0) Eosinophils (%) (Auto) % (0.0-3.0) Basophils (%) (Auto) % (0.0-2.0) Differential Total Cells Counted 100 Neutrophils % (Manual) 74 % (45-75) Lymphocytes % (Manual) 18 % (20-45) Monocytes % (Manual) 7 % (1-10) Eosinophils % (Manual) 1 % (0-3) Basophils % (Manual) 0 % (0-2) Band Neutrophils 0 % (0-8) Platelet Estimate Adequate Platelet Morphology Normal Hypochromasia 1+ Anisocytosis 1+ Sodium Level 142 MMOL/L (136-145) Potassium Level 3.4 MMOL/L (3.5-5.1) Chloride Level 104 MMOL/L (98-107) Carbon Dioxide Level 30 MMOL/L (21-32) Anion Gap 8 mmol/L (5-15) Blood Urea Nitrogen 10 mg/dL (7-18) Creatinine 1.2 MG/DL (0.55-1.30) Estimat Glomerular Filtration Rate 54.3 mL/min (>60) Glucose Level 112 MG/DL (74-106) Calcium Level 8.5 MG/DL (8.5-10.1) Height (Feet): 5 Height (Inches): 10.00 Weight (Pounds): 200 Objective Physical Exam Sp02 EP Interpretation: reviewed, normal General: Patient appears chronically ill Head: normocephalic, atraumatic Respiratory: , crackles - both lower lobes Cardiovascular: tachycardia Gastrointestinal: non tender, soft Musculoskeletal: other - Patient appears chronically debilitated both lower extremities are extended Neurologic: other - Some verbal response, but chronic disability Skin: no rash : abhishek+ Virgil Wray MD Apr 23, 2020 06:24
[2020-04-23 07:00] LABS: HEMATOCRIT 24.9 % (37.0-47.0); HEMOGLOBIN 7.3 G/DL (12.0-16.0); MEAN CORPUSCULAR VOLUME 89 FL (80-99); PLATELET COUNT 352 K/UL (150-450); RED CELL DISTRIBUTION WIDTH 16.3 % (11.6-14.8); WHITE BLOOD COUNT 4.6 K/UL (4.8-10.8)
[2020-04-23 07:06] LABS: ANION GAP 5 mmol/L (5-15); BLOOD UREA NITROGEN 13 mg/dL (7-18); CALCIUM 8.8 MG/DL (8.5-10.1); CARBON DIOXIDE 31 MMOL/L (21-32); CHLORIDE 109 MMOL/L (98-107); CREATININE 1.4 MG/DL (0.55-1.30); POTASSIUM 3.7 MMOL/L (3.5-5.1); SODIUM 145 MMOL/L (136-145)
--- NOTE | 2020-04-23 07:53 | NUR ---
HAND-OFF: Report given to JOSSELYN Rizzo
[2020-04-23 08:00] VITALS: BP 157/77
--- NOTE | 2020-04-23 08:23 | NUR ---
NURSE NOTES: received report from JOSSELYN Roberts. Pt A/O x4. No s/s of acute respiratory and cardiac distress. On o2 2L NC. PICC line on left upper arm, dressing clean, dry and intact. F/C draining by gravity. Bed in low position, side rails up x3 and call light within reach. Will continue to monitor.
--- NOTE | 2020-04-23 08:59 | Nephrology Progress Note ---
Assessment/Plan Plan #Afib with RVR #HTN #Hypokalemia #Hypomagnesemia #Left Plueral Effusion #Hx Sepsis, HCAP/UTI, + ESBL #Chronic Pain #Iron Deficiency Anemia #Seizure vs prolonged period of immobility #S/P Acute metabolic Encephalopathy #Hx of Colectomy w/ Colostomy - tele - rate control per cardiology - resume AC- on apixaban - replete lytes - monitor h -s/p EGD/colon on 04/16 showing gastritis, ulcers near ostomy bag likely ischemic , biopsies obtained, follow-up pathology -ctm Hgb, transfuse for hgb <7 -cont home meds -wound care - monitor renal function Time spent 45 min - greater than 50% on care coordination and counseling Subjective ROS Limited/Unobtainable: No Constitutional: Reports: weakness HEENT: Denies: no symptoms, eye pain, blurred vision, tearing, double vision, ear pain, ear discharge, nose pain, nose congestion, throat pain, throat swelling, mouth pain, mouth swelling, other Genitourinary: Denies: no symptoms, burning, discharge, frequency, flank pain, hematuria, incontinence, pain, urgency, other Neurologic/Psychiatric: Denies: no symptoms, anxiety, depressed, emotional problems, headache, numbness, paresthesia, pre-existing deficit, seizure, tingling, tremors, weakness, other Subjective rate better controlled no chest pain no SOB hemoglobin improved s/p transfusion plan to start AC Objective Objective Last 24 Hour Vital Signs Date Time Temp Pulse Resp B/P (MAP) Pulse Ox O2 Delivery O2 Flow Rate FiO2 04/23/20 08:00 97.6 81 18 157/77 (103) 97 04/23/20 07:01 98.2 04/23/20 06:31 76 134/71 04/23/20 06:31 134/71 04/23/20 04:00 76 04/23/20 04:00 98.2 77 17 134/71 (92) 97 04/23/20 02:11 77 139/64 04/23/20 02:11 139/64 04/23/20 00:00 98.1 73 17 139/64 (89) 97 04/23/20 00:00 77 04/22/20 21:50 102 147/69 04/22/20 21:00 Nasal Cannula 2.0 Nasal Cannula 2.0 04/22/20 20:00 101 04/22/20 20:00 97.8 102 18 147/69 (95) 94 04/22/20 17:00 91 146/70 04/22/20 17:00 146/70 04/22/20 16:00 98.4 91 20 146/70 (95) 97 04/22/20 15:36 88 04/22/20 11:47 96 158/77 04/22/20 11:47 158/77 04/22/20 11:45 97.3 96 20 158/77 (104) 98 04/22/20 11:41 91 04/22/20 09:00 Room Air Intake and Output 04/22/20 04/23/20 19:00 07:00 Intake Total 995.000 ml 480 ml Output Total 2400 ml 1500 ml Balance -1405.000 ml -1020 ml Intake Oral 720 ml 480 ml IV Total 275.000 ml Output Urine Total 2400 ml 1500 ml # Voids 1 Laboratory Tests 04/23/20 04:30: White Blood Count 4.6L, Red Blood Count 2.80L, Hemoglobin 7.3L, Hematocrit 24.9L , Mean Corpuscular Volume 89, Mean Corpuscular Hemoglobin 26.0L, Mean Corpuscular Hemoglobin Concent 29.2L, Red Cell Distribution Width 16.3H, Platelet Count 352, Mean Platelet Volume 6.3L, Neutrophils (%) (Auto) , Lymphocytes (%) (Auto) , Monocytes (%) (Auto) , Eosinophils (%) (Auto) , Basophils (%) (Auto) , Differential Total Cells Counted 100, Neutrophils % ( Manual) 76H, Lymphocytes % (Manual) 15L, Monocytes % (Manual) 9, Eosinophils % ( Manual) 0, Basophils % (Manual) 0, Band Neutrophils 0, Platelet Estimate Adequate, Platelet Morphology Normal, Hypochromasia 1+, Anisocytosis 1+, Sodium Level 145, Potassium Level 3.7, Chloride Level 109H, Carbon Dioxide Level 31, Anion Gap 5, Blood Urea Nitrogen 13, Creatinine 1.4H, Estimat Glomerular Filtration Rate 45.5, Glucose Level 99, Calcium Level 8.8 Height (Feet): 5 Height (Inches): 10.00 Weight (Pounds): 200 Venkat Montes M.D. Apr 23, 2020 08:59
[2020-04-23] MEDS: Amiodarone 200mg tab ORAL SCH ×2 (09:31→17:51)
[2020-04-23] MEDS: Doxazosin 4mg tab ORAL SCH (09:31)
[2020-04-23] MEDS: Docusate 100mg cap ORAL SCH ×2 (09:31→20:58)
[2020-04-23] MEDS: Furosemide 40mg tab ORAL SCH (09:32)
[2020-04-23] MEDS: Phospha 250 Neutral tab ORAL SCH ×3 (09:33→17:51)
--- NOTE | 2020-04-23 09:58 | General Progress Note ---
Assessment/Plan Assessment/Plan: (1) lumbar degenerative disease (2) lumbar spondylosis (3) multiple joint pain and osteoarthritis (4) sacral decubitus ulcer Patient to be continued on Percocet as needed. D/w Dr. Dumont and he concurred. Subjective Date patient seen: Apr 23, 2020 Time patient seen: 09:15 - am Allergies: Coded Allergies: LISINOPRIL (Verified Allergy, Unknown, Hives, 04/12/14) Subjective REVIEW OF SYSTEMS: Denies rash, fever, chills, sweating, dizziness, drowsiness, blurred vision, sore throat, change in her weight. No shortness of breath, chest pain, palpitations, or cough. No nausea, vomiting, diarrhea, blood in stool or urine. No dysuria. SUBJECTIVE: Patient is in bed smiling denies pain which has been tolerated on the Percocet. No new complaints at this time. Objective Last 24 Hour Vital Signs Date Time Temp Pulse Resp B/P (MAP) Pulse Ox O2 Delivery O2 Flow Rate FiO2 04/23/20 09:32 81 157/77 04/23/20 08:00 97.6 81 18 157/77 (103) 97 04/23/20 07:01 98.2 04/23/20 06:31 76 134/71 04/23/20 06:31 134/71 04/23/20 04:00 76 04/23/20 04:00 98.2 77 17 134/71 (92) 97 04/23/20 02:11 77 139/64 04/23/20 02:11 139/64 04/23/20 00:00 98.1 73 17 139/64 (89) 97 04/23/20 00:00 77 04/22/20 21:50 102 147/69 04/22/20 21:00 Nasal Cannula 2.0 Nasal Cannula 2.0 04/22/20 20:00 101 04/22/20 20:00 97.8 102 18 147/69 (95) 94 04/22/20 17:00 91 146/70 04/22/20 17:00 146/70 04/22/20 16:00 98.4 91 20 146/70 (95) 97 04/22/20 15:36 88 04/22/20 11:47 96 158/77 04/22/20 11:47 158/77 04/22/20 11:45 97.3 96 20 158/77 (104) 98 04/22/20 11:41 91 Intake and Output 04/22/20 04/23/20 19:00 07:00 Intake Total 995.000 ml 480 ml Output Total 2400 ml 1500 ml Balance -1405.000 ml -1020 ml Intake Oral 720 ml 480 ml IV Total 275.000 ml Output Urine Total 2400 ml 1500 ml # Voids 1 Laboratory Tests 04/23/20 04:30: White Blood Count 4.6L, Red Blood Count 2.80L, Hemoglobin 7.3L, Hematocrit 24.9L , Mean Corpuscular Volume 89, Mean Corpuscular Hemoglobin 26.0L, Mean Corpuscular Hemoglobin Concent 29.2L, Red Cell Distribution Width 16.3H, Platelet Count 352, Mean Platelet Volume 6.3L, Neutrophils (%) (Auto) , Lymphocytes (%) (Auto) , Monocytes (%) (Auto) , Eosinophils (%) (Auto) , Basophils (%) (Auto) , Differential Total Cells Counted 100, Neutrophils % ( Manual) 76H, Lymphocytes % (Manual) 15L, Monocytes % (Manual) 9, Eosinophils % ( Manual) 0, Basophils % (Manual) 0, Band Neutrophils 0, Platelet Estimate Adequate, Platelet Morphology Normal, Hypochromasia 1+, Anisocytosis 1+, Sodium Level 145, Potassium Level 3.7, Chloride Level 109H, Carbon Dioxide Level 31, Anion Gap 5, Blood Urea Nitrogen 13, Creatinine 1.4H, Estimat Glomerular Filtration Rate 45.5, Glucose Level 99, Calcium Level 8.8 Height (Feet): 5 Height (Inches): 10.00 Weight (Pounds): 200 Objective GENERAL: Alert, awake, and oriented. LUNGS: Decreased breath sounds bilaterally. HEART: S1 and S2 regular. ABDOMEN: Ostomy noted. EXTREMITIES: No cyanosis. No clubbing. NEURO: No changes. Joby Yoon Apr 23, 2020 09:58
[2020-04-23] MEDS: Eliquis 5mg tablet ORAL SCH ×2 (10:03→17:51)
--- NOTE | 2020-04-23 10:14 | Pulmonology Progress Note ---
Subjective ROS Limited/Unobtainable: No Interval Events: None new Constitutional: Denies: fever HEENT: Repors: no symptoms Respiratory: Reports: no symptoms Cardiovascular: Reports: no symptoms Gastrointestinal/Abdominal: Denies: nausea, vomiting, diarrhea Genitourinary: Reports: no symptoms Psychiatric: Denies: depression Skin: Denies: rash Musculoskeletal: Denies: pain Allergies: Coded Allergies: LISINOPRIL (Verified Allergy, Unknown, Hives, 04/12/14) Objective Last 24 Hour Vital Signs Date Time Temp Pulse Resp B/P (MAP) Pulse Ox O2 Delivery O2 Flow Rate FiO2 04/23/20 09:32 81 157/77 04/23/20 08:00 97.6 81 18 157/77 (103) 97 04/23/20 07:01 98.2 04/23/20 06:31 76 134/71 04/23/20 06:31 134/71 04/23/20 04:00 76 04/23/20 04:00 98.2 77 17 134/71 (92) 97 04/23/20 02:11 77 139/64 04/23/20 02:11 139/64 04/23/20 00:00 98.1 73 17 139/64 (89) 97 04/23/20 00:00 77 04/22/20 21:50 102 147/69 04/22/20 21:00 Nasal Cannula 2.0 Nasal Cannula 2.0 04/22/20 20:00 101 04/22/20 20:00 97.8 102 18 147/69 (95) 94 04/22/20 17:00 91 146/70 04/22/20 17:00 146/70 04/22/20 16:00 98.4 91 20 146/70 (95) 97 04/22/20 15:36 88 04/22/20 11:47 96 158/77 04/22/20 11:47 158/77 04/22/20 11:45 97.3 96 20 158/77 (104) 98 04/22/20 11:41 91 Intake and Output 04/22/20 04/23/20 19:00 07:00 Intake Total 995.000 ml 480 ml Output Total 2400 ml 1500 ml Balance -1405.000 ml -1020 ml Intake Oral 720 ml 480 ml IV Total 275.000 ml Output Urine Total 2400 ml 1500 ml # Voids 1 General Appearance: no acute distress HEENT: normocephalic Respiratory: chest wall non-tender Cardiovascular: normal peripheral pulses Abdomen: normal bowel sounds Laboratory Tests 04/23/20 04:30: White Blood Count 4.6L, Red Blood Count 2.80L, Hemoglobin 7.3L, Hematocrit 24.9L , Mean Corpuscular Volume 89, Mean Corpuscular Hemoglobin 26.0L, Mean Corpuscular Hemoglobin Concent 29.2L, Red Cell Distribution Width 16.3H, Platelet Count 352, Mean Platelet Volume 6.3L, Neutrophils (%) (Auto) , Lymphocytes (%) (Auto) , Monocytes (%) (Auto) , Eosinophils (%) (Auto) , Basophils (%) (Auto) , Differential Total Cells Counted 100, Neutrophils % ( Manual) 76H, Lymphocytes % (Manual) 15L, Monocytes % (Manual) 9, Eosinophils % ( Manual) 0, Basophils % (Manual) 0, Band Neutrophils 0, Platelet Estimate Adequate, Platelet Morphology Normal, Hypochromasia 1+, Anisocytosis 1+, Sodium Level 145, Potassium Level 3.7, Chloride Level 109H, Carbon Dioxide Level 31, Anion Gap 5, Blood Urea Nitrogen 13, Creatinine 1.4H, Estimat Glomerular Filtration Rate 45.5, Glucose Level 99, Calcium Level 8.8 Current Medications Medications (Trade) Dose Ordered Sig/Debbie Route PRN Reason Start Time Stop Time Status Last Admin Dose Admin Amiodarone HCl (Cordarone) 200 mg BID ORAL 04/19/20 18:00 07/18/20 08:59 04/23/20 09:31 Apixaban (Eliquis) 5 mg BID ORAL 04/22/20 18:00 07/21/20 17:59 04/23/20 10:03 Bisacodyl (Dulcolax) 10 mg DAILYPRN PRN RECTAL Constipation 04/18/20 14:30 07/17/20 14:29 Dextrose (Dextrose 50%) 25 ml Q30M PRN IV Hypoglycemia 04/18/20 14:30 07/17/20 14:29 Dextrose (Dextrose 50%) 50 ml Q30M PRN IV Hypoglycemia 04/18/20 14:30 07/17/20 14:29 Diltiazem HCl (Cardizem Tab) 90 mg EVERY 6 HOURS ORAL 04/19/20 18:00 05/18/20 21:59 04/23/20 06:31 Diphenhydramine HCl (Benadryl) 25 mg Q6H PRN ORAL Itching/Pruritis 04/18/20 14:30 05/18/20 14:29 Docusate Sodium (Colace) 100 mg EVERY 12 HOURS ORAL 04/18/20 21:00 05/18/20 20:59 04/23/20 09:31 Doxazosin Mesylate (Cardura) 4 mg DAILY ORAL 04/19/20 09:00 05/19/20 08:59 04/23/20 09:31 Duloxetine HCl (Cymbalta) 60 mg BID ORAL 04/19/20 18:00 07/17/20 17:59 04/23/20 09:31 Furosemide (Lasix) 40 mg DAILY ORAL 04/23/20 09:00 05/23/20 08:59 04/23/20 09:32 Gabapentin (Neurontin) 300 mg BEDTIME ORAL 04/18/20 21:00 05/18/20 20:59 04/22/20 21:51 Guaifenesin (Robitussin) 100 mg Q6H PRN ORAL For Cough 04/22/20 17:45 07/21/20 17:44 04/22/20 17:54 Hydralazine HCl (Apresoline) 50 mg Q6HR ORAL 04/18/20 18:00 07/17/20 17:59 04/23/20 06:31 Lorazepam (Ativan 2mg/ml 1ml) 0.5 mg Q4H PRN IV For Anxiety 04/18/20 14:30 04/25/20 14:29 Magnesium Hydroxide (Mom) 30 ml HSPRN PRN ORAL Constipation 04/18/20 14:30 05/18/20 14:29 04/22/20 17:00 Methocarbamol (Robaxin) 500 mg QIDPRN PRN ORAL Muscle Spasm 04/18/20 14:30 05/18/20 14:29 04/21/20 18:37 Metoprolol Tartrate (Lopressor) 25 mg Q12HR ORAL 04/22/20 21:00 07/21/20 20:59 04/23/20 09:32 Naloxone HCl (Narcan) 0.2 mg Q2M PRN IVP respiratory depression 04/20/20 14:00 07/19/20 13:59 Ondansetron HCl (Zofran) 4 mg Q6H PRN IVP Nausea & Vomiting 04/18/20 14:30 05/18/20 14:29 Oxycodone/ Acetaminophen (Percocet ) 1 tab Q4H PRN ORAL For Pain 04/20/20 17:30 04/27/20 17:29 04/23/20 06:31 Phosphorus (Phospha 250 Neutral) 250 mg THREE TIMES A DAY ORAL 04/18/20 18:00 05/18/20 17:59 04/23/20 09:33 Polyethylene Glycol (Miralax) 17 gm DAILYPRN PRN ORAL Constipation 04/18/20 14:30 05/18/20 14:29 Potassium Chloride (K-Dur) 40 meq DAILY ORAL 04/19/20 09:00 07/18/20 08:59 04/23/20 09:33 Zolpidem Tartrate (Ambien) 5 mg HSPRN PRN ORAL Insomnia 04/20/20 16:30 04/27/20 16:29 04/22/20 21:51 Assessment/Plan Assessment/Plan IMPRESSION: 1. Small left pleural effusion. 2. Bibasilar infiltrates. 3. History of chronic pain. 4. Atrial fibrillation. 5. alf resident. DISCUSSION: Continue medications Continue oxygen and pulmonary hygiene. Seven Yao Omar Syed MD Apr 23, 2020 10:14
--- NOTE | 2020-04-23 10:47 | General Progress Note ---
Assessment/Plan Status: progressing Assessment/Plan: 69-year-old female with PMH of A. fib, chronic pain, diverticulitis, HTN, HLD who presents from SNF for uncontrolled chronic pain and A. fib RVR. #Afib w/ RVR - resolved -cont medical care on tele -likely 2/2 uncontrolled pain and electrolyte abnormality -s/p diltiazem PO and IV in ED, now rate controlled -cont home amiodarone, cardizem -Cardio, Dr. Crooks, consulted, recs appreciated -EP, Dr. Dean, consulted, recs appreciated -Continue Eliquis and monitor H&H #Iron Deficiency Anemia #Hx of FOBT + -s/p EGD/colon on 04/16 showing gastritis, ulcers near ostomy bag likely ischemic -Hemoglobin stable -ctm Hgb, transfuse for hgb <7 -7/2: s/p 1 U PRBC -d/w GI, Dr. Boyd, and Heme, Dr Wray, recs appreciated -ctm, no endoscopic intervention at this time #Hypokalemia #Hypomagnesemia -replaced, ctm -replace PRN #Left Plueral Effusion -CXR on admission w/slight increased left pleural effusion -pt w/no conversational dyspnea, lungs CTAB, ctm at this time -Pulm following #Hx Sepsis, HCAP/UTI, + ESBL -Sputum w/ multiple MDR organisms, now requiring aggressive AB -cont Micagungin, Polymoxin, Vancomyin for 2 more days -ID following #Chronic Pain -Continue Robaxin for spasms -Cont Percocet PRN -morphine for breakthrough pain -pain management eval appreciated #Seizure vs prolonged period of immobility #S/P Acute metabolic Encephalopathy -cont home meds #Hx of Colectomy w/ Colostomy -wound care DVT ppx: Xarelto --> hold given acute anemia, SCDs Full Code I spent 38 mins on this encounter w 20 min on care/coordination and pt counseling. D/w RN, consulting MDs Subjective Date patient seen: Apr 23, 2020 ROS Limited/Unobtainable: No Constitutional: Reports: malaise; Denies: chills, diaphoresis, fever HEENT: Reports: no symptoms; Denies: double vision, throat swelling Cardiovascular: Reports: irregular heart rate, palpitations; Denies: syncope Respiratory: Reports: cough, shortness of breath Gastrointestinal/Abdominal: Reports: no symptoms Genitourinary: Reports: no symptoms Neurologic/Psychiatric: Reports: no symptoms Endocrine: Reports: no symptoms Hematologic/Lymphatic: Reports: anemia, easy bruising Allergies: Coded Allergies: LISINOPRIL (Verified Allergy, Unknown, Hives, 04/12/14) All Systems: reviewed and negative except above Subjective Patient states she wants to go home tomorrow and not to a SNF Objective Last 24 Hour Vital Signs Date Time Temp Pulse Resp B/P (MAP) Pulse Ox O2 Delivery O2 Flow Rate FiO2 04/23/20 09:32 81 157/77 04/23/20 09:00 Nasal Cannula 2.0 Nasal Cannula 2.0 04/23/20 08:00 80 04/23/20 08:00 97.6 81 18 157/77 (103) 97 04/23/20 07:01 98.2 04/23/20 06:31 76 134/71 04/23/20 06:31 134/71 04/23/20 04:00 76 04/23/20 04:00 98.2 77 17 134/71 (92) 97 04/23/20 02:11 77 139/64 04/23/20 02:11 139/64 04/23/20 00:00 98.1 73 17 139/64 (89) 97 04/23/20 00:00 77 04/22/20 21:50 102 147/69 04/22/20 21:00 Nasal Cannula 2.0 Nasal Cannula 2.0 04/22/20 20:00 101 04/22/20 20:00 97.8 102 18 147/69 (95) 94 04/22/20 17:00 91 146/70 04/22/20 17:00 146/70 04/22/20 16:00 98.4 91 20 146/70 (95) 97 04/22/20 15:36 88 04/22/20 11:47 96 158/77 04/22/20 11:47 158/77 04/22/20 11:45 97.3 96 20 158/77 (104) 98 04/22/20 11:41 91 Intake and Output 04/22/20 04/23/20 19:00 07:00 Intake Total 995.000 ml 480 ml Output Total 2400 ml 1500 ml Balance -1405.000 ml -1020 ml Intake Oral 720 ml 480 ml IV Total 275.000 ml Output Urine Total 2400 ml 1500 ml # Voids 1 Laboratory Tests 04/23/20 04:30: White Blood Count 4.6L, Red Blood Count 2.80L, Hemoglobin 7.3L, Hematocrit 24.9L , Mean Corpuscular Volume 89, Mean Corpuscular Hemoglobin 26.0L, Mean Corpuscular Hemoglobin Concent 29.2L, Red Cell Distribution Width 16.3H, Platelet Count 352, Mean Platelet Volume 6.3L, Neutrophils (%) (Auto) , Lymphocytes (%) (Auto) , Monocytes (%) (Auto) , Eosinophils (%) (Auto) , Basophils (%) (Auto) , Differential Total Cells Counted 100, Neutrophils % ( Manual) 76H, Lymphocytes % (Manual) 15L, Monocytes % (Manual) 9, Eosinophils % ( Manual) 0, Basophils % (Manual) 0, Band Neutrophils 0, Platelet Estimate Adequate, Platelet Morphology Normal, Hypochromasia 1+, Anisocytosis 1+, Sodium Level 145, Potassium Level 3.7, Chloride Level 109H, Carbon Dioxide Level 31, Anion Gap 5, Blood Urea Nitrogen 13, Creatinine 1.4H, Estimat Glomerular Filtration Rate 45.5, Glucose Level 99, Calcium Level 8.8 Height (Feet): 5 Height (Inches): 10.00 Weight (Pounds): 200 General Appearance: no apparent distress, lethargic EENT: PERRL/EOMI Neck: non-tender, normal alignment Cardiovascular: normal rate, no JVD, irregularly irregular Respiratory/Chest: no respiratory distress, crackles/rales Abdomen: non tender, soft, other - colosotmy Edema: 1+ Pedal (L), 1+ Pedal (R) Edema: mild edema Neurologic: check processing clerk II-XII grossly normal Heriberto Urias M.D. Apr 23, 2020 10:47
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
--- NOTE | 2020-04-23 11:43 | NUR ---
*-* DISCHARGE PLANNING *-* CM spoke with Keily from [facility] Keily will attempt to call [facility] again and obtain clearance for admission CM will f/u after noon LULÚ MCLEAN P: [phone] F: [phone]
--- NOTE | 2020-04-23 11:48 | NUR ---
RD ASSESSMENT & RECOMMENDATIONS SEE CARE ACTIVITY FOR COMPLETE ASSESSMENT DAILY ESTIMATED NEEDS: Needs based on Wounds/ 75.8kg adj 20-30 kcals/kg 0257-3485 total kcals 1.25-1.5 g protein/kg 94-114 g total protein 25-30 mL/kg 9059-0829 total fluid mLs NUTRITION DIAGNOSIS: Increased protein/micronutrients needs R/T wound healing as evidenced by pt w/ unstageable wounds at sacrum and Rt buttocks, resolving pressure injury at L Ischium, DTPI at medial R heel. CURRENT DIET:CARDIAC PO DIET RECOMMENDATIONS: Cardiac + CCHO MED ADDITIONAL RECOMMENDATIONS: 1) Calibrated bedscale wts: w/ added p200 mattress + pump + SCDs 2) Monitor BGs, need for hypoglycemics: h/o DM 3) Wound healing: MVI x 1, Vit C 500mg QD, ZnSO4 220mg QD x 10 days Boris BID added to tray 4) Monitor lytes, replete as needed . .
[2020-04-23 12:00] VITALS: BP 149/81
[2020-04-23] MEDS: guaiFENesin 100mg/5ml Liq ud ORAL PRN ×2 (13:01→21:43)
--- NOTE | 2020-04-23 13:32 | Surgery Progress Note ---
Surgery Progress Note Subjective Additional Comments resting comfortable no n/v/f/c labs reviewed anemia Objective Last 24 Hour Vital Signs Date Time Temp Pulse Resp B/P (MAP) Pulse Ox O2 Delivery O2 Flow Rate FiO2 04/23/20 12:04 60 149/81 04/23/20 12:03 149/81 04/23/20 12:00 98.1 60 20 149/81 (103) 96 04/23/20 12:00 75 04/23/20 09:32 81 157/77 04/23/20 09:00 Nasal Cannula 2.0 Nasal Cannula 2.0 04/23/20 08:00 80 04/23/20 08:00 97.6 81 18 157/77 (103) 97 04/23/20 07:01 98.2 04/23/20 06:31 76 134/71 04/23/20 06:31 134/71 04/23/20 04:00 76 04/23/20 04:00 98.2 77 17 134/71 (92) 97 04/23/20 02:11 77 139/64 04/23/20 02:11 139/64 04/23/20 00:00 98.1 73 17 139/64 (89) 97 04/23/20 00:00 77 04/22/20 21:50 102 147/69 04/22/20 21:00 Nasal Cannula 2.0 Nasal Cannula 2.0 04/22/20 20:00 101 04/22/20 20:00 97.8 102 18 147/69 (95) 94 04/22/20 17:00 91 146/70 04/22/20 17:00 146/70 04/22/20 16:00 98.4 91 20 146/70 (95) 97 04/22/20 15:36 88 I&O Intake and Output 04/22/20 04/23/20 19:00 07:00 Intake Total 995.000 ml 480 ml Output Total 2400 ml 1500 ml Balance -1405.000 ml -1020 ml Intake Oral 720 ml 480 ml IV Total 275.000 ml Output Urine Total 2400 ml 1500 ml # Voids 1 Dressing: other Wound: other Drains: other Cardiovascular: RSR Respiratory: decreased breath sounds Abdomen: soft, non-tender, present bowel sounds Extremities: no tenderness, no cyanosis Laboratory Tests Test 7/6/20 04:30 White Blood Count 4.6 K/UL (4.8-10.8) L Red Blood Count 2.80 M/UL (4.20-5.40) L Hemoglobin 7.3 G/DL (12.0-16.0) L Hematocrit 24.9 % (37.0-47.0) L Mean Corpuscular Volume 89 FL (80-99) Mean Corpuscular Hemoglobin 26.0 PG (27.0-31.0) L Mean Corpuscular Hemoglobin Concent 29.2 G/DL (32.0-36.0) L Red Cell Distribution Width 16.3 % (11.6-14.8) H Platelet Count 352 K/UL (150-450) Mean Platelet Volume 6.3 FL (6.5-10.1) L Neutrophils (%) (Auto) % (45.0-75.0) Lymphocytes (%) (Auto) % (20.0-45.0) Monocytes (%) (Auto) % (1.0-10.0) Eosinophils (%) (Auto) % (0.0-3.0) Basophils (%) (Auto) % (0.0-2.0) Differential Total Cells Counted 100 Neutrophils % (Manual) 76 % (45-75) H Lymphocytes % (Manual) 15 % (20-45) L Monocytes % (Manual) 9 % (1-10) Eosinophils % (Manual) 0 % (0-3) Basophils % (Manual) 0 % (0-2) Band Neutrophils 0 % (0-8) Platelet Estimate Adequate Platelet Morphology Normal Hypochromasia 1+ Anisocytosis 1+ Sodium Level 145 MMOL/L (136-145) Potassium Level 3.7 MMOL/L (3.5-5.1) Chloride Level 109 MMOL/L (98-107) H Carbon Dioxide Level 31 MMOL/L (21-32) Anion Gap 5 mmol/L (5-15) Blood Urea Nitrogen 13 mg/dL (7-18) Creatinine 1.4 MG/DL (0.55-1.30) H Estimat Glomerular Filtration Rate 45.5 mL/min (>60) Glucose Level 99 MG/DL (74-106) Calcium Level 8.8 MG/DL (8.5-10.1) Plan Problems: (1) Atrial flutter Assessment & Plan: Assessment/Plan: (1) Atrial flutter (2) Hypertension (3) Acute encephalopathy (4) VENTURA (acute kidney injury) (5) Acute and chronic respiratory failure with hypoxia (6) Abscess (7) Fistula (8) Sciatica neuralgia (9) Uncontrolled seizures (10) Forgetfulness (11) Sacral decubitus ulcer Assessment & Plan: Patient identified to have a sacral deep tissue injury upon admission air mattress prior and will order while in admission Care plan initiated Pt presented on admission with Obesity and multiple Pressure injuries. Unstageable Pressure Injury Sacrum. (L)4.5cm x (W)3.5cm. Base of wound is 10% necrotic,90% slough.Surrounding dry, pink epithelial,bordered by dry black and peeling skin.Pt stated sacral area is tender when she is supine. Resolving Pressure injury L Ischium . Elongated area that is a reabsorbed DTPI. Striated areas of pink epithelial within base of Pressure injury. Pt denied tenderness when palpated. Unstageable Pressure injury R Buttocks.(L)3.5cm x (W)2.5cm. Base of wound is 100 % slough. Edges are adherent to base of wound. Darker skin tone without induration periwound.No odor or exudate noted. Reabsorbed DPI R Ischium. Dry, black and peeling skin noted .Pt denied any tenderness when palpated.Bilat lower ext are edematous. Haemosiderin noted to L lower ext. Pt stated distal aspects of both lower ext are painful but stated more painful on RLE. DTPI noted to medial R heel. Intact blood filled blister noted(L)3.5cm x (W) 3cm. Periwound is blanchable but fluctuant. Pt complained of tenderness when minimally palpated R heel is boggy but blanchable. Denied tenderness when minimally palpated. Tx.Plan:Cleanse Wounds Sacrum and R Buttocks. Apply TheraHoney to wounds. Apply Moisture Barrier Paste Periwound Cover with Optifoam drsg. Change Daily and prn. Apply Moisture Barrier Paste to R and L Ischial Tuberosities with each Incontinence care. Apply Cavilon To both heels. Cover each Heel and Malleoli with Optifoam drsg. Change every 7 days and prn. Reposition at least every 2hours or as tolerated. Elevate both lower ext. with both heels off-loaded. APM/MAREN Mattress overlay. (12) Chronic back pain (13) Overdose of opiate or related narcotic (14) Cellulitis of left leg (15) Pericolonic abscess due to diverticulitis (16) Ventral incisional hernia Assessment & Plan: History of colon resection colostomy Ventral incisional hernia reducible No acute invention monitor parastomal hernia stable ostomy viable and functional no acute intervention planned unlikely etiology of pain (17) Chronic pain of both knees (18) Dehydration (19) Hyperkalemia (20) Sepsis Assessment & Plan: Patient reports not liking current diet texture of Moist Puree with Thin Liquids. Patient completed PO intake of solids (crackers), Patient's swallow is grossly functional. Plan: 1. Upgrade Diet Texture to Soft Solids and continue Thin Liquids; type/ supplements per RD. 2. Nursing to assist Patient with oral care BID. DAILY ESTIMATED NEEDS: Needs based on Pulmonary, sepsis, wound, VENTURA 75.8kg adj 20-30 kcals/kg 4684-5137 total kcals 1.25-1.5 g protein/kg 94-114 g total protein 25-30 mL/kg 5993-9268 total fluid mLs NUTRITION DIAGNOSIS: Swallowing difficulty r/t respiratory status as evidenced by pt orally intubated, on NGT feeds-> now extubated, pending [employer] eval. PO DIET RECOMMENDATIONS-->>> Cardiac diet / texture per [employer] ENTERAL NUTRITION RECOMMENDATIONS: VITAL AF 1.2 @55ml/hr x24 hrs to provide 1320ml, 1584 kcal, 99g pro, 1071ml free H2O - Maintain at goal as tolerated if not cleared for oral diet by [employer] - Flush per MD/ HOB over 30 degree ADDITIONAL RECOMMENDATIONS: 1) Maintain calibrated bed scale wts (248lbs vs 217lbs last adm) 2) Monitor renal fxn and lytes closely, need for renal formula Creat wnl; lytes low (K,phos,mg) 3) Wound healing: ZnSO4 220mg QD x 10 days+ Boris BID via NGT hold vit C until renal fxn improves 4) NISS w/ TF, h/o DM 5) Monitor po intake if cleared for oral diet; need for snacks/supplements Julian Iglesias Apr 23, 2020 13:32
--- NOTE | 2020-04-23 13:36 | NUR ---
TRANSFER CM RECIEVED ORDER PER DR CARTER TO TRANSFER TO [facility]MEN CALLED [facility] TO SEE IF PATIENT IS ON LIST AT THIS TIME PATIENT WAS NOT ADDED CLINICALS FAXED TO [facility] F: [phone] CARTER AWARE OF PATIENT STATUS AND INFORMED THAT CLINICALS FAXED
--- NOTE | 2020-04-23 14:09 | NUR ---
CASE MANAGEMENT: REVIEW 04/23/20 SI:RAPID A-FIB. ANEMIA . 98.1 60 75 20 149/81 96% ON RA H/H 7.3/24.9 WBC 4.3 CREAT 1.4 IS:IV LASIX QD LOPRESSOR PO BID ELIQUIS PO BID CARDURA PO QD AMIODARONE PO QD NEURONTIN PO QHS \: 2E TELE UNIT DCP:PATIENT IS FROM [facility] PLAN: ANTICOAGULATION CHANGE POSSIBLE TRANSFER TO [facility] FAXED
--- NOTE | 2020-04-23 14:49 | Cardiac Electrophysiology PN ---
Assessment/Plan Assessment/Plan 1. Recurrent atrial flutter with rapid ventricular response despite amiodarone 200 mg bid, Cardizem 90 mg po every 6 hours and Lopressor 25 bid Eliquis was resumed. Will transfer to [facility] for EPS and ablation 2. Severe anemia, s/p blood transfusion. FU GI and hematology 3. Hypertension. On Cardizem, Lasix 40 mg po bid, hydralazine 50 mg every 6 hours and Lopressor 25 bid 4. Hyperlipidemia, on Lipitor. 5. Pleural effusion. 6. History of diverticulitis requiring partial colectomy and colostomy placement. 7. Ischemic colitis proximal to colostomy insertion from last admission. ADOLFO RN and [facility] Transfer [facility] Subjective Subjective Had recurrence of atrial fluter 3 times yesterday despite being on Amio, Cardizem and Lopressor. Objective Last 24 Hour Vital Signs Date Time Temp Pulse Resp B/P (MAP) Pulse Ox O2 Delivery O2 Flow Rate FiO2 04/23/20 12:04 60 149/81 04/23/20 12:03 149/81 04/23/20 12:00 98.1 60 20 149/81 (103) 96 04/23/20 12:00 75 04/23/20 09:32 81 157/77 04/23/20 09:00 Nasal Cannula 2.0 Nasal Cannula 2.0 04/23/20 08:00 80 04/23/20 08:00 97.6 81 18 157/77 (103) 97 04/23/20 07:01 98.2 04/23/20 06:31 76 134/71 04/23/20 06:31 134/71 04/23/20 04:00 76 04/23/20 04:00 98.2 77 17 134/71 (92) 97 04/23/20 02:11 77 139/64 04/23/20 02:11 139/64 04/23/20 00:00 98.1 73 17 139/64 (89) 97 04/23/20 00:00 77 04/22/20 21:50 102 147/69 04/22/20 21:00 Nasal Cannula 2.0 Nasal Cannula 2.0 04/22/20 20:00 101 04/22/20 20:00 97.8 102 18 147/69 (95) 94 04/22/20 17:00 91 146/70 04/22/20 17:00 146/70 04/22/20 16:00 98.4 91 20 146/70 (95) 97 04/22/20 15:36 88 Intake and Output 04/22/20 04/23/20 19:00 07:00 Intake Total 995.000 ml 480 ml Output Total 2400 ml 1500 ml Balance -1405.000 ml -1020 ml Intake Oral 720 ml 480 ml IV Total 275.000 ml Output Urine Total 2400 ml 1500 ml # Voids 1 Laboratory Tests Test 04/23/20 04:30 White Blood Count 4.6 K/UL (4.8-10.8) L Red Blood Count 2.80 M/UL (4.20-5.40) L Hemoglobin 7.3 G/DL (12.0-16.0) L Hematocrit 24.9 % (37.0-47.0) L Mean Corpuscular Volume 89 FL (80-99) Mean Corpuscular Hemoglobin 26.0 PG (27.0-31.0) L Mean Corpuscular Hemoglobin Concent 29.2 G/DL (32.0-36.0) L Red Cell Distribution Width 16.3 % (11.6-14.8) H Platelet Count 352 K/UL (150-450) Mean Platelet Volume 6.3 FL (6.5-10.1) L Neutrophils (%) (Auto) % (45.0-75.0) Lymphocytes (%) (Auto) % (20.0-45.0) Monocytes (%) (Auto) % (1.0-10.0) Eosinophils (%) (Auto) % (0.0-3.0) Basophils (%) (Auto) % (0.0-2.0) Differential Total Cells Counted 100 Neutrophils % (Manual) 76 % (45-75) H Lymphocytes % (Manual) 15 % (20-45) L Monocytes % (Manual) 9 % (1-10) Eosinophils % (Manual) 0 % (0-3) Basophils % (Manual) 0 % (0-2) Band Neutrophils 0 % (0-8) Platelet Estimate Adequate Platelet Morphology Normal Hypochromasia 1+ Anisocytosis 1+ Sodium Level 145 MMOL/L (136-145) Potassium Level 3.7 MMOL/L (3.5-5.1) Chloride Level 109 MMOL/L (98-107) H Carbon Dioxide Level 31 MMOL/L (21-32) Anion Gap 5 mmol/L (5-15) Blood Urea Nitrogen 13 mg/dL (7-18) Creatinine 1.4 MG/DL (0.55-1.30) H Estimat Glomerular Filtration Rate 45.5 mL/min (>60) Glucose Level 99 MG/DL (74-106) Calcium Level 8.8 MG/DL (8.5-10.1) Objective NECK: No JVD. LUNGS: Clear. CARDIOVASCULAR: Irregular S1 and S2 with no gallop or murmur. ABDOMEN: Soft. EXTREMITIES: 1+ pitting edema. Carlos Dean MD Apr 23, 2020 14:49
[2020-04-23 16:00] VITALS: BP 133/64
--- NOTE | 2020-04-23 16:26 | NUR ---
TRANSFER UPDATE CARMEN SPOKE TO CHARLI FROM TRANSFER CENTER PATIENT IS HAS NOT CLEARED FINANCIALLY CEDAR TO CALL WHEN FINANCIALLY CLEARED AND BED AVAILABLE CM PROVIDED NURSING STATION NUMBER
--- NOTE | 2020-04-23 19:16 | NUR ---
HAND-OFF: Report given to JOSSELYN Roberts.
--- NOTE | 2020-04-23 19:25 | NUR ---
NURSE NOTES: Received report from JOSSELYN Rizzo. Pt A/O x4. No s/s of acute respiratory and cardiac distress. Currently on O2 2L NC. PICC line on DOMENICA patent and dressing intact. Pt pending transfer to [facility] for cardiac ablation by Dr. Dean. Still awaiting bed. F/C, patent and secured to leg, draining yellow clear urine. Bed in lowest position, side rails up x3 and call light within reach, bed alarm on, fall precautions in place. Will continue to monitor.
[2020-04-23 20:00] VITALS: BP 116/59
[2020-04-23] MEDS: Zolpidem 5mg tab ORAL PRN (21:42)
--- NOTE | 2020-04-23 22:48 | Cardiology Progress Note ---
Assessment/Plan Status: doing well, stable Assessment/Plan Assessment/Plan Assessment/Plan: 69-year-old female with PMH of A. fib, chronic pain, diverticulitis, HTN, HLD who presents from SNF for uncontrolled chronic pain and A. fib RVR. AFIB Hypokalemia Pleural effusion HTN HLD Recommendations: -Converted to NSR -Continue PO amiodarone 200 mg BID -Continue cardizem 90 mg q6 -Continue xarelto -Previous stress test not tolerated, will need coronary anatomy study -CV status -Outpatient cardiac cath and watchman next week -Atrial flutter ablation with EP -Transfer to [facility] for ablation Subjective Cardiovascular: Reports: no symptoms Respiratory: Reports: no symptoms Gastrointestinal/Abdominal: Reports: no symptoms Subjective no acute events, remains in NSR rates 80s no bleeding no CP/SOB Awaiting transfer to [facility] for Ablation watchman to be done as outpatient Objective Last 24 Hour Vital Signs Date Time Temp Pulse Resp B/P (MAP) Pulse Ox O2 Delivery O2 Flow Rate FiO2 04/23/20 21:42 83 116/59 04/23/20 20:00 83 04/23/20 20:00 98.1 84 20 116/59 (78) 96 04/23/20 17:51 75 133/64 04/23/20 17:51 133/64 04/23/20 16:00 75 04/23/20 16:00 97.9 79 18 133/64 (87) 96 04/23/20 12:04 60 149/81 04/23/20 12:03 149/81 04/23/20 12:00 98.1 60 20 149/81 (103) 96 04/23/20 12:00 75 04/23/20 09:32 81 157/77 04/23/20 09:00 Nasal Cannula 2.0 Nasal Cannula 2.0 04/23/20 08:00 80 04/23/20 08:00 97.6 81 18 157/77 (103) 97 04/23/20 07:01 98.2 04/23/20 06:31 76 134/71 04/23/20 06:31 134/71 04/23/20 04:00 76 04/23/20 04:00 98.2 77 17 134/71 (92) 97 04/23/20 02:11 77 139/64 04/23/20 02:11 139/64 04/23/20 00:00 98.1 73 17 139/64 (89) 97 04/23/20 00:00 77 General Appearance: no apparent distress, alert EENT: PERRL/EOMI, normal ENT inspection, TMs normal, pharynx normal Neck: non-tender, normal alignment, supple, normal inspection, no JVD Rhythm: NSR Cardiovascular: normal peripheral pulses, normal rate, regular rhythm Respiratory/Chest: chest wall non-tender, lungs clear, normal breath sounds Abdomen: normal bowel sounds, non tender, soft, no organomegaly Extremities: normal range of motion, non-tender, normal inspection, no calf tenderness, no swelling 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, no motor/sensory deficits Intake and Output 04/22/20 04/23/20 19:00 07:00 Intake Total 995.000 ml 480 ml Output Total 2400 ml 1500 ml Balance -1405.000 ml -1020 ml Intake Oral 720 ml 480 ml IV Total 275.000 ml Output Urine Total 2400 ml 1500 ml # Voids 1 Laboratory Tests Test 04/23/20 04:30 White Blood Count 4.6 K/UL (4.8-10.8) L Red Blood Count 2.80 M/UL (4.20-5.40) L Hemoglobin 7.3 G/DL (12.0-16.0) L Hematocrit 24.9 % (37.0-47.0) L Mean Corpuscular Volume 89 FL (80-99) Mean Corpuscular Hemoglobin 26.0 PG (27.0-31.0) L Mean Corpuscular Hemoglobin Concent 29.2 G/DL (32.0-36.0) L Red Cell Distribution Width 16.3 % (11.6-14.8) H Platelet Count 352 K/UL (150-450) Mean Platelet Volume 6.3 FL (6.5-10.1) L Neutrophils (%) (Auto) % (45.0-75.0) Lymphocytes (%) (Auto) % (20.0-45.0) Monocytes (%) (Auto) % (1.0-10.0) Eosinophils (%) (Auto) % (0.0-3.0) Basophils (%) (Auto) % (0.0-2.0) Differential Total Cells Counted 100 Neutrophils % (Manual) 76 % (45-75) H Lymphocytes % (Manual) 15 % (20-45) L Monocytes % (Manual) 9 % (1-10) Eosinophils % (Manual) 0 % (0-3) Basophils % (Manual) 0 % (0-2) Band Neutrophils 0 % (0-8) Platelet Estimate Adequate Platelet Morphology Normal Hypochromasia 1+ Anisocytosis 1+ Sodium Level 145 MMOL/L (136-145) Potassium Level 3.7 MMOL/L (3.5-5.1) Chloride Level 109 MMOL/L (98-107) H Carbon Dioxide Level 31 MMOL/L (21-32) Anion Gap 5 mmol/L (5-15) Blood Urea Nitrogen 13 mg/dL (7-18) Creatinine 1.4 MG/DL (0.55-1.30) H Estimat Glomerular Filtration Rate 45.5 mL/min (>60) Glucose Level 99 MG/DL (74-106) Calcium Level 8.8 MG/DL (8.5-10.1) Rafat Crooks MD Apr 23, 2020 22:48
[2020-04-24] VITALS: BP 132/66
[2020-04-24] MEDS: LORazepam Inj 2mg/ml 1ml IV PRN (03:09)
[2020-04-24 04:00] VITALS: BP 136/67
--- NOTE | 2020-04-24 06:23 | Hematology/Onc Progress Note ---
Assessment/Plan Assessment/Plan Assessment and Recs # Anemia of iron deficiency, with a ferritin that is less than 50 recentrly --> Anemia workup has been ordered, rule out gi bleed --> recheck ferritin, occult was + --> No evidence of hemolysis is noted, peripheral smear has been reviewed. --> Hgb goal >7. Transfuse prn. --> IRon IV x 5 days started 04/06 as ferritin is low--> ferritin now 290. --> Medications have been reviewed --> low threshold for gi evaluation in case has occult + --> holding xarelto at this time-->eliquis restarted --> hgb trend 8.2-->7.2->8->7.4->7.6-->6.8->7.8->7.6-->7.3 --> GI eval prn --> 04/21 stool ob negative # Hypercoagulable disorder is on xarelto for afib with rvr --> reviewed cards recs --> have dw Pcp --> monitor h/h--> per cards for watchman/ablation future # Leukopenia with gram neg pna, uti, sepsis, fevers, leukocytosis, a.flutter, respiratory failure, atx, dony, + ua, atx --> covid is neg --> abx svetlana and micafungin/polymyx-->hola/svetlana-->polymyxin/vanc/micafungin--> vanc --> as per id recs --> wbc trend 4.5-->4.1-->4-->5.7 # Respiratory failure, on vent initially 03/2020 --> now extubated, nc prn # Renal failure. --> improved # Diabetes. --> endo prn # Hypertension. --> per cards # Diabetes and hypertension, treatment per primary care team. --> a1c goal <8, acchuchecks qac and qhs # Patient with history of altered mental status. --> metabolic encephalopathy # Seizure history. # Chronic neck pain. # Lactic acidsis # HLD # Obesity # Dvt ppx --> eliquis restarted Appreciate consultation and vanessa RN Subjective HEENT: Denies: no symptoms, eye pain, blurred vision, tearing, double vision, ear pain, ear discharge, nose pain, nose congestion, throat pain, throat swelling, mouth pain, mouth swelling, other Cardiovascular: Denies: no symptoms, chest pain, edema, irregular heart rate, lightheadedness, palpitations, syncope, other Respiratory: Denies: no symptoms, cough, shortness of breath, SOB with excertion, SOB at rest, sputum, wheezing, other Gastrointestinal/Abdominal: Denies: no symptoms, abdomen distended, abdominal pain, black stools, tarry stools, blood in stool, constipated, diarrhea, difficulty swallowing, nausea, poor appetite, poor fluid intake, rectal bleeding , vomiting, other Genitourinary: Denies: no symptoms, burning, discharge, frequency, flank pain, hematuria, incontinence, pain, urgency, other Neurologic/Psychiatric: Denies: no symptoms, anxiety, depressed, emotional problems, headache, numbness, paresthesia, pre-existing deficit, seizure, tingling, tremors, weakness, other Endocrine: Denies: no symptoms, excessive sweating, flushing, intolerance to cold, intolerance to heat, increased hunger, increased thirst, increased urine, unexplained weight gain, unexplained weight loss, other Hematologic/Lymphatic: Denies: no symptoms, anemia, easy bleeding, easy bruising, adenopathy, other Allergies: Coded Allergies: LISINOPRIL (Verified Allergy, Unknown, Hives, 04/12/14) Subjective 04/20 in general feeling better, dw team, off xarelto, for watchman by Jackie next week 04/22 s/p blood, hgb improved to 7.6, stool ob negative, room air 04/23 is back on eliquis, as per cards recs, hgb remains stable 04/24 has been feeling fatigued, no bleeding, for transfer to [facility] Objective Objective Current Medications Medications (Trade) Dose Ordered Sig/Debbie Route PRN Reason Start Time Stop Time Status Last Admin Dose Admin Amiodarone HCl (Cordarone) 200 mg BID ORAL 04/19/20 18:00 07/18/20 08:59 04/23/20 17:51 Apixaban (Eliquis) 5 mg BID ORAL 04/22/20 18:00 07/21/20 17:59 04/23/20 17:51 Bisacodyl (Dulcolax) 10 mg DAILYPRN PRN RECTAL Constipation 04/18/20 14:30 07/17/20 14:29 Dextrose (Dextrose 50%) 25 ml Q30M PRN IV Hypoglycemia 04/18/20 14:30 07/17/20 14:29 Dextrose (Dextrose 50%) 50 ml Q30M PRN IV Hypoglycemia 04/18/20 14:30 07/17/20 14:29 Diltiazem HCl (Cardizem Tab) 90 mg EVERY 6 HOURS ORAL 04/19/20 18:00 05/18/20 21:59 04/23/20 23:48 Diphenhydramine HCl (Benadryl) 25 mg Q6H PRN ORAL Itching/Pruritis 04/18/20 14:30 05/18/20 14:29 Docusate Sodium (Colace) 100 mg EVERY 12 HOURS ORAL 04/18/20 21:00 05/18/20 20:59 04/23/20 09:31 Doxazosin Mesylate (Cardura) 4 mg DAILY ORAL 04/19/20 09:00 05/19/20 08:59 04/23/20 09:31 Duloxetine HCl (Cymbalta) 60 mg BID ORAL 04/19/20 18:00 07/17/20 17:59 04/23/20 17:51 Furosemide (Lasix) 40 mg DAILY ORAL 04/23/20 09:00 05/23/20 08:59 04/23/20 09:32 Gabapentin (Neurontin) 300 mg BEDTIME ORAL 04/18/20 21:00 05/18/20 20:59 04/23/20 21:43 Guaifenesin (Robitussin) 100 mg Q6H PRN ORAL For Cough 04/22/20 17:45 07/21/20 17:44 04/23/20 21:43 Hydralazine HCl (Apresoline) 50 mg Q6HR ORAL 04/18/20 18:00 07/17/20 17:59 04/23/20 23:47 Lorazepam (Ativan 2mg/ml 1ml) 0.5 mg Q4H PRN IV For Anxiety 04/18/20 14:30 04/25/20 14:29 04/24/20 03:09 Magnesium Hydroxide (Mom) 30 ml HSPRN PRN ORAL Constipation 04/18/20 14:30 05/18/20 14:29 04/22/20 17:00 Methocarbamol (Robaxin) 500 mg QIDPRN PRN ORAL Muscle Spasm 04/18/20 14:30 05/18/20 14:29 04/21/20 18:37 Metoprolol Tartrate (Lopressor) 25 mg Q12HR ORAL 04/22/20 21:00 07/21/20 20:59 04/23/20 21:42 Naloxone HCl (Narcan) 0.2 mg Q2M PRN IVP respiratory depression 04/20/20 14:00 07/19/20 13:59 Ondansetron HCl (Zofran) 4 mg Q6H PRN IVP Nausea & Vomiting 04/18/20 14:30 05/18/20 14:29 Oxycodone/ Acetaminophen (Percocet 10) 1 tab Q4H PRN ORAL For Pain 04/20/20 17:30 04/27/20 17:29 04/24/20 02:03 Phosphorus (Phospha 250 Neutral) 250 mg THREE TIMES A DAY ORAL 04/18/20 18:00 05/18/20 17:59 04/23/20 17:51 Polyethylene Glycol (Miralax) 17 gm DAILYPRN PRN ORAL Constipation 04/18/20 14:30 05/18/20 14:29 Potassium Chloride (K-Dur) 40 meq DAILY ORAL 04/19/20 09:00 07/18/20 08:59 04/23/20 09:33 Zolpidem Tartrate (Ambien) 5 mg HSPRN PRN ORAL Insomnia 04/20/20 16:30 04/27/20 16:29 04/23/20 21:42 Last 24 Hour Vital Signs Date Time Temp Pulse Resp B/P (MAP) Pulse Ox O2 Delivery O2 Flow Rate FiO2 04/24/20 04:41 72 04/24/20 04:00 96.8 74 19 136/67 (90) 98 04/24/20 02:33 98.1 04/24/20 00:00 98.1 74 20 132/66 (88) 97 04/24/20 00:00 73 04/23/20 23:48 80 132/77 04/23/20 23:47 132/77 04/23/20 21:42 83 116/59 04/23/20 21:00 Nasal Cannula 2.0 Nasal Cannula 2.0 04/23/20 20:00 83 04/23/20 20:00 98.1 84 20 116/59 (78) 96 04/23/20 17:51 75 133/64 04/23/20 17:51 133/64 04/23/20 16:00 75 04/23/20 16:00 97.9 79 18 133/64 (87) 96 04/23/20 12:04 60 149/81 04/23/20 12:03 149/81 04/23/20 12:00 98.1 60 20 149/81 (103) 96 04/23/20 12:00 75 04/23/20 09:32 81 157/77 04/23/20 09:00 Nasal Cannula 2.0 Nasal Cannula 2.0 04/23/20 08:00 80 04/23/20 08:00 97.6 81 18 157/77 (103) 97 04/23/20 06:31 76 134/71 04/23/20 06:31 134/71 04/23/20 04:00 76 04/23/20 04:00 98.2 77 17 134/71 (92) 97 04/23/20 02:11 77 139/64 04/23/20 02:11 139/64 04/23/20 00:00 98.1 73 17 139/64 (89) 97 04/23/20 00:00 77 04/22/20 21:50 102 147/69 04/22/20 21:00 Nasal Cannula 2.0 Nasal Cannula 2.0 04/22/20 20:00 101 04/22/20 20:00 97.8 102 18 147/69 (95) 94 04/22/20 17:00 91 146/70 04/22/20 17:00 146/70 04/22/20 16:00 98.4 91 20 146/70 (95) 97 04/22/20 15:36 88 04/22/20 11:47 96 158/77 04/22/20 11:47 158/77 04/22/20 11:45 97.3 96 20 158/77 (104) 98 04/22/20 11:41 91 04/22/20 09:00 Room Air 04/22/20 08:00 97.7 93 20 154/74 (100) 97 04/22/20 07:46 89 Intake and Output 04/23/20 04/24/20 19:00 07:00 Intake Total 120 ml Output Total 500 ml Balance -380 ml Intake Oral 120 ml Output Urine Total 500 ml Labs Test 04/21/20 06:50 04/21/20 16:15 04/22/20 05:00 04/22/20 07:54 White Blood Count 5.3 K/UL (4.8-10.8) 4.7 K/UL (4.8-10.8) Red Blood Count 2.81 M/UL (4.20-5.40) 2.31 M/UL (4.20-5.40) Hemoglobin 7.4 G/DL (12.0-16.0) 6.1 G/DL (12.0-16.0) Hematocrit 24.6 % (37.0-47.0) 20.7 % (37.0-47.0) Mean Corpuscular Volume 88 FL (80-99) 90 FL (80-99) Mean Corpuscular Hemoglobin 26.5 PG (27.0-31.0) 26.4 PG (27.0-31.0) Mean Corpuscular Hemoglobin Concent 30.2 G/DL (32.0-36.0) 29.5 G/DL (32.0-36.0) Red Cell Distribution Width 16.2 % (11.6-14.8) 16.7 % (11.6-14.8) Platelet Count 390 K/UL (150-450) 291 K/UL (150-450) Mean Platelet Volume 6.1 FL (6.5-10.1) 6.1 FL (6.5-10.1) Neutrophils (%) (Auto) % (45.0-75.0) % (45.0-75.0) Lymphocytes (%) (Auto) % (20.0-45.0) % (20.0-45.0) Monocytes (%) (Auto) % (1.0-10.0) % (1.0-10.0) Eosinophils (%) (Auto) % (0.0-3.0) % (0.0-3.0) Basophils (%) (Auto) % (0.0-2.0) % (0.0-2.0) Differential Total Cells Counted 100 100 Neutrophils % (Manual) 61 % (45-75) 70 % (45-75) Lymphocytes % (Manual) 28 % (20-45) 22 % (20-45) Monocytes % (Manual) 10 % (1-10) 5 % (1-10) Eosinophils % (Manual) 1 % (0-3) 3 % (0-3) Basophils % (Manual) 0 % (0-2) 0 % (0-2) Band Neutrophils 0 % (0-8) 0 % (0-8) Platelet Estimate Adequate Adequate Platelet Morphology Normal Normal Hypochromasia 1+ 1+ Anisocytosis 1+ 1+ Sodium Level 140 MMOL/L (136-145) 127 MMOL/L (136-145) Potassium Level 3.5 MMOL/L (3.5-5.1) 2.6 MMOL/L (3.5-5.1) Chloride Level 104 MMOL/L (98-107) 96 MMOL/L (98-107) Carbon Dioxide Level 28 MMOL/L (21-32) 24 MMOL/L (21-32) Anion Gap 8 mmol/L (5-15) 7 mmol/L (5-15) Blood Urea Nitrogen 9 mg/dL (7-18) 9 mg/dL (7-18) Creatinine 1.1 MG/DL (0.55-1.30) 1.2 MG/DL (0.55-1.30) Estimat Glomerular Filtration Rate > 60 mL/min (>60) 54.3 mL/min (>60) Glucose Level 118 MG/DL (74-106) 579 MG/DL (74-106) Calcium Level 8.4 MG/DL (8.5-10.1) 6.6 MG/DL (8.5-10.1) Random Vancomycin Level 24.3 ug/mL 11.6 ug/mL Stool Occult Blood Negative (NEGATIVE) POC Whole Blood Glucose 104 MG/DL (74-106) Test 04/22/20 08:25 04/23/20 04:30 White Blood Count 5.7 K/UL (4.8-10.8) 4.6 K/UL (4.8-10.8) Red Blood Count 2.85 M/UL (4.20-5.40) 2.80 M/UL (4.20-5.40) Hemoglobin 7.6 G/DL (12.0-16.0) 7.3 G/DL (12.0-16.0) Hematocrit 25.1 % (37.0-47.0) 24.9 % (37.0-47.0) Mean Corpuscular Volume 88 FL (80-99) 89 FL (80-99) Mean Corpuscular Hemoglobin 26.5 PG (27.0-31.0) 26.0 PG (27.0-31.0) Mean Corpuscular Hemoglobin Concent 30.1 G/DL (32.0-36.0) 29.2 G/DL (32.0-36.0) Red Cell Distribution Width 16.0 % (11.6-14.8) 16.3 % (11.6-14.8) Platelet Count 358 K/UL (150-450) 352 K/UL (150-450) Mean Platelet Volume 5.9 FL (6.5-10.1) 6.3 FL (6.5-10.1) Neutrophils (%) (Auto) % (45.0-75.0) % (45.0-75.0) Lymphocytes (%) (Auto) % (20.0-45.0) % (20.0-45.0) Monocytes (%) (Auto) % (1.0-10.0) % (1.0-10.0) Eosinophils (%) (Auto) % (0.0-3.0) % (0.0-3.0) Basophils (%) (Auto) % (0.0-2.0) % (0.0-2.0) Differential Total Cells Counted 100 100 Neutrophils % (Manual) 74 % (45-75) 76 % (45-75) Lymphocytes % (Manual) 18 % (20-45) 15 % (20-45) Monocytes % (Manual) 7 % (1-10) 9 % (1-10) Eosinophils % (Manual) 1 % (0-3) 0 % (0-3) Basophils % (Manual) 0 % (0-2) 0 % (0-2) Band Neutrophils 0 % (0-8) 0 % (0-8) Platelet Estimate Adequate Adequate Platelet Morphology Normal Normal Hypochromasia 1+ 1+ Anisocytosis 1+ 1+ Sodium Level 142 MMOL/L (136-145) 145 MMOL/L (136-145) Potassium Level 3.4 MMOL/L (3.5-5.1) 3.7 MMOL/L (3.5-5.1) Chloride Level 104 MMOL/L (98-107) 109 MMOL/L (98-107) Carbon Dioxide Level 30 MMOL/L (21-32) 31 MMOL/L (21-32) Anion Gap 8 mmol/L (5-15) 5 mmol/L (5-15) Blood Urea Nitrogen 10 mg/dL (7-18) 13 mg/dL (7-18) Creatinine 1.2 MG/DL (0.55-1.30) 1.4 MG/DL (0.55-1.30) Estimat Glomerular Filtration Rate 54.3 mL/min (>60) 45.5 mL/min (>60) Glucose Level 112 MG/DL (74-106) 99 MG/DL (74-106) Calcium Level 8.5 MG/DL (8.5-10.1) 8.8 MG/DL (8.5-10.1) Height (Feet): 5 Height (Inches): 10.00 Weight (Pounds): 200 Objective Physical Exam Sp02 EP Interpretation: reviewed, normal General: Patient appears chronically ill Head: normocephalic, atraumatic Respiratory: , crackles - both lower lobes Cardiovascular: tachycardia Gastrointestinal: non tender, soft Musculoskeletal: other - Patient appears chronically debilitated both lower extremities are extended Neurologic: other - Some verbal response, but chronic disability Skin: no rash : abhishek+ Virgil Wray MD Apr 24, 2020 06:23
[2020-04-24] MEDS: dilTIAZem HCl 90mg tab ORAL SCH ×4 (06:52→23:23)
[2020-04-24] MEDS: guaiFENesin 100mg/5ml Liq ud ORAL PRN (06:52)
[2020-04-24] MEDS: HydrALAZINE 50mg tab ORAL SCH ×4 (06:52→23:22)
[2020-04-24 07:03] LABS: HEMATOCRIT 24.7 % (37.0-47.0); HEMOGLOBIN 7.5 G/DL (12.0-16.0); MEAN CORPUSCULAR VOLUME 88 FL (80-99); PLATELET COUNT 338 K/UL (150-450); RED BLOOD COUNT 2.81 M/UL (4.20-5.40); RED CELL DISTRIBUTION WIDTH 16.4 % (11.6-14.8); WHITE BLOOD COUNT 4.3 K/UL (4.8-10.8)
--- NOTE | 2020-04-24 07:47 | NUR ---
NURSE NOTES: Received report from JOSSELYN Roberts. Pt A/O x4. No s/s of acute respiratory and cardiac distress. Currently on O2 2L NC. PICC line on DOMENICA patent and dressing intact. Pt pending transfer to [facility] for cardiac ablation by Dr. Dean. Still awaiting bed. F/C draining by gravity. Bed in low position, side rails up x3 and call light within reach. Will continue to monitor.
[2020-04-24 08:00] VITALS: BP 145/71
--- NOTE | 2020-04-24 08:00 | NUR ---
HAND-OFF: Report given to JOSSELYN Rizzo.
--- NOTE | 2020-04-24 08:08 | NUR ---
NURSE NOTES: Spoke with Mary Jane at [facility], no bed available, Dr Dean to schedule ablation, undetermined time. Addendum: 04/24/20 at 0809 by Alejandra Roblero RN 04/23/201999- incorrect time
--- NOTE | 2020-04-24 08:08 | Nephrology Progress Note ---
Assessment/Plan Plan #Afib with RVR #HTN #Hypokalemia #Hypomagnesemia #Left Plueral Effusion #Hx Sepsis, HCAP/UTI, + ESBL #Chronic Pain #Iron Deficiency Anemia #Seizure vs prolonged period of immobility #S/P Acute metabolic Encephalopathy #Hx of Colectomy w/ Colostomy - tele - rate control per cardiology - resume AC- on apixaban - hold lasix - transfer to [facility] for ablation - replete lytes - monitor h -s/p EGD/colon on 04/16 showing gastritis, ulcers near ostomy bag likely ischemic , biopsies obtained, follow-up pathology -ctm Hgb, transfuse for hgb <7 -cont home meds -wound care - monitor renal function Time spent 45 min - greater than 50% on care coordination and counseling Subjective ROS Limited/Unobtainable: No Constitutional: Reports: weakness; Denies: no symptoms, chills, diaphoresis, fever, malaise, other HEENT: Denies: no symptoms, eye pain, blurred vision, tearing, double vision, ear pain, ear discharge, nose pain, nose congestion, throat pain, throat swelling, mouth pain, mouth swelling, other Genitourinary: Denies: no symptoms, burning, discharge, frequency, flank pain, hematuria, incontinence, pain, urgency, other Neurologic/Psychiatric: Denies: no symptoms, anxiety, depressed, emotional problems, headache, numbness, paresthesia, pre-existing deficit, seizure, tingling, tremors, weakness, other Subjective plan to transfer to [facility] for ablation Cr uptrending - will hold lasix no chest pain no SOB hemoglobin improved s/p transfusion started on AC Objective Objective Last 24 Hour Vital Signs Date Time Temp Pulse Resp B/P (MAP) Pulse Ox O2 Delivery O2 Flow Rate FiO2 04/24/20 06:52 72 136/67 04/24/20 06:52 136/67 04/24/20 04:41 72 04/24/20 04:00 96.8 74 19 136/67 (90) 98 04/24/20 02:33 98.1 04/24/20 00:00 98.1 74 20 132/66 (88) 97 04/24/20 00:00 73 04/23/20 23:48 80 132/77 04/23/20 23:47 132/77 04/23/20 21:42 83 116/59 04/23/20 21:00 Nasal Cannula 2.0 Nasal Cannula 2.0 04/23/20 20:00 83 04/23/20 20:00 98.1 84 20 116/59 (78) 96 04/23/20 17:51 75 133/64 04/23/20 17:51 133/64 04/23/20 16:00 75 04/23/20 16:00 97.9 79 18 133/64 (87) 96 04/23/20 12:04 60 149/81 04/23/20 12:03 149/81 04/23/20 12:00 98.1 60 20 149/81 (103) 96 04/23/20 12:00 75 04/23/20 09:32 81 157/77 04/23/20 09:00 Nasal Cannula 2.0 Nasal Cannula 2.0 Intake and Output 04/23/20 04/24/20 19:00 07:00 Intake Total 120 ml Output Total 500 ml 625 ml Balance -380 ml -625 ml Intake Oral 120 ml Output Urine Total 500 ml 625 ml Laboratory Tests 04/24/20 05:00: White Blood Count 4.3L, Red Blood Count 2.81L, Hemoglobin 7.5L, Hematocrit 24.7L , Mean Corpuscular Volume 88, Mean Corpuscular Hemoglobin 26.6L, Mean Corpuscular Hemoglobin Concent 30.2L, Red Cell Distribution Width 16.4H, Platelet Count 338, Mean Platelet Volume 6.1L, Neutrophils (%) (Auto) , Lymphocytes (%) (Auto) , Monocytes (%) (Auto) , Eosinophils (%) (Auto) , Basophils (%) (Auto) , Neutrophils % (Manual) [Pending], Lymphocytes % (Manual) [Pending], Platelet Estimate [Pending], Platelet Morphology [Pending], Pro-B- Type Natriuretic Peptide 2232H Height (Feet): 5 Height (Inches): 10.00 Weight (Pounds): 200 Venkat Montes M.D. Apr 24, 2020 08:08
[2020-04-24] MEDS: Furosemide 40mg tab ORAL SCH (08:26)
[2020-04-24] MEDS: Doxazosin 4mg tab ORAL SCH (08:26)
[2020-04-24] MEDS: Amiodarone 200mg tab ORAL SCH ×2 (08:26→17:41)
[2020-04-24] MEDS: Docusate 100mg cap ORAL SCH ×2 (08:26→20:45)
[2020-04-24] MEDS: Eliquis 5mg tablet ORAL SCH ×2 (08:27→17:41)
[2020-04-24] MEDS: Phospha 250 Neutral tab ORAL SCH ×3 (08:27→17:40)
[2020-04-24 08:37] LABS: ANION GAP 8 mmol/L (5-15); BLOOD UREA NITROGEN 14 mg/dL (7-18); CALCIUM 8.7 MG/DL (8.5-10.1); CARBON DIOXIDE 29 MMOL/L (21-32); CHLORIDE 107 MMOL/L (98-107); CREATININE 1.5 MG/DL (0.55-1.30); PHOSPHORUS 4.3 MG/DL (2.5-4.9); POTASSIUM 3.5 MMOL/L (3.5-5.1); SODIUM 144 MMOL/L (136-145)
--- NOTE | 2020-04-24 09:05 | NUR ---
Transfer update: CM spoke to Kelly from [facility] Currently patient is financially cleared but no beds at this time [facility] has CM + nurses station phone number when bed is available [facility] T:[phone] Addendum: 04/24/20 at 1244 by BARBARA NUÑEZ LVN CM spoke with transfer center ([facility]) No available beds at this time CM will f/u at the end of work day
--- NOTE | 2020-04-24 09:37 | General Progress Note ---
Assessment/Plan Assessment/Plan: (1) lumbar degenerative disease (2) lumbar spondylosis (3) multiple joint pain and osteoarthritis (4) sacral decubitus ulcer Patient to be continued on Percocet as needed. D/w Dr. Dumont and he concurred. Subjective Date patient seen: Apr 24, 2020 Time patient seen: 08:15 - am Allergies: Coded Allergies: LISINOPRIL (Verified Allergy, Unknown, Hives, 04/12/14) Subjective REVIEW OF SYSTEMS: Denies rash, fever, chills, sweating, dizziness, drowsiness, blurred vision, sore throat, change in her weight. No shortness of breath, chest pain, palpitations, or cough. No nausea, vomiting, diarrhea, blood in stool or urine. No dysuria. SUBJECTIVE: Patient reports pain has been tolerated on the Percocet no new complaints at this time. Objective Last 24 Hour Vital Signs Date Time Temp Pulse Resp B/P (MAP) Pulse Ox O2 Delivery O2 Flow Rate FiO2 04/24/20 08:26 84 145/71 04/24/20 08:00 97.9 84 18 145/71 (95) 97 04/24/20 06:52 72 136/67 04/24/20 06:52 136/67 04/24/20 04:41 72 04/24/20 04:00 96.8 74 19 136/67 (90) 98 04/24/20 02:33 98.1 04/24/20 00:00 98.1 74 20 132/66 (88) 97 04/24/20 00:00 73 04/23/20 23:48 80 132/77 04/23/20 23:47 132/77 04/23/20 21:42 83 116/59 04/23/20 21:00 Nasal Cannula 2.0 Nasal Cannula 2.0 04/23/20 20:00 83 04/23/20 20:00 98.1 84 20 116/59 (78) 96 04/23/20 17:51 75 133/64 04/23/20 17:51 133/64 04/23/20 16:00 75 04/23/20 16:00 97.9 79 18 133/64 (87) 96 04/23/20 12:04 60 149/81 04/23/20 12:03 149/81 04/23/20 12:00 98.1 60 20 149/81 (103) 96 04/23/20 12:00 75 Intake and Output 04/23/20 04/24/20 19:00 07:00 Intake Total 120 ml Output Total 500 ml 625 ml Balance -380 ml -625 ml Intake Oral 120 ml Output Urine Total 500 ml 625 ml Laboratory Tests 04/24/20 05:00: White Blood Count 4.3L, Red Blood Count 2.81L, Hemoglobin 7.5L, Hematocrit 24.7L , Mean Corpuscular Volume 88, Mean Corpuscular Hemoglobin 26.6L, Mean Corpuscular Hemoglobin Concent 30.2L, Red Cell Distribution Width 16.4H, Platelet Count 338, Mean Platelet Volume 6.1L, Neutrophils (%) (Auto) , Lymphocytes (%) (Auto) , Monocytes (%) (Auto) , Eosinophils (%) (Auto) , Basophils (%) (Auto) , Differential Total Cells Counted 100, Neutrophils % ( Manual) 66, Lymphocytes % (Manual) 27, Monocytes % (Manual) 6, Eosinophils % ( Manual) 1, Basophils % (Manual) 0, Band Neutrophils 0, Platelet Estimate Adequate, Platelet Morphology Normal, Hypochromasia 1+, Anisocytosis 1+, Sodium Level 144, Potassium Level 3.5, Chloride Level 107, Carbon Dioxide Level 29, Anion Gap 8, Blood Urea Nitrogen 14, Creatinine 1.5H, Estimat Glomerular Filtration Rate 42.1, Glucose Level 95, Calcium Level 8.7, Phosphorus Level 4.3 , Magnesium Level 1.8, Pro-B-Type Natriuretic Peptide 2232H Height (Feet): 5 Height (Inches): 10.00 Weight (Pounds): 200 Objective GENERAL: Alert, awake, and oriented. LUNGS: Decreased breath sounds bilaterally. HEART: S1 and S2 regular. ABDOMEN: Ostomy noted. EXTREMITIES: No cyanosis. No clubbing. NEURO: No changes. Joby Yoon Apr 24, 2020 09:37
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
--- NOTE | 2020-04-24 09:48 | Pulmonology Progress Note ---
Subjective ROS Limited/Unobtainable: No Interval Events: None new Constitutional: Denies: fever HEENT: Repors: no symptoms Respiratory: Reports: no symptoms Cardiovascular: Reports: no symptoms Gastrointestinal/Abdominal: Denies: nausea, vomiting, diarrhea Genitourinary: Reports: no symptoms Psychiatric: Denies: depression Skin: Denies: rash Musculoskeletal: Denies: pain Allergies: Coded Allergies: LISINOPRIL (Verified Allergy, Unknown, Hives, 04/12/14) All Systems: reviewed and negative except above Objective Last 24 Hour Vital Signs Date Time Temp Pulse Resp B/P (MAP) Pulse Ox O2 Delivery O2 Flow Rate FiO2 04/24/20 08:26 84 145/71 04/24/20 08:00 97.9 84 18 145/71 (95) 97 04/24/20 06:52 72 136/67 04/24/20 06:52 136/67 04/24/20 04:41 72 04/24/20 04:00 96.8 74 19 136/67 (90) 98 04/24/20 02:33 98.1 04/24/20 00:00 98.1 74 20 132/66 (88) 97 04/24/20 00:00 73 04/23/20 23:48 80 132/77 04/23/20 23:47 132/77 04/23/20 21:42 83 116/59 04/23/20 21:00 Nasal Cannula 2.0 Nasal Cannula 2.0 04/23/20 20:00 83 04/23/20 20:00 98.1 84 20 116/59 (78) 96 04/23/20 17:51 75 133/64 04/23/20 17:51 133/64 04/23/20 16:00 75 04/23/20 16:00 97.9 79 18 133/64 (87) 96 04/23/20 12:04 60 149/81 04/23/20 12:03 149/81 04/23/20 12:00 98.1 60 20 149/81 (103) 96 04/23/20 12:00 75 Intake and Output 04/23/20 04/24/20 19:00 07:00 Intake Total 120 ml Output Total 500 ml 625 ml Balance -380 ml -625 ml Intake Oral 120 ml Output Urine Total 500 ml 625 ml General Appearance: no acute distress HEENT: normocephalic Respiratory: chest wall non-tender Cardiovascular: normal peripheral pulses Abdomen: normal bowel sounds Laboratory Tests 04/24/20 05:00: White Blood Count 4.3L, Red Blood Count 2.81L, Hemoglobin 7.5L, Hematocrit 24.7L , Mean Corpuscular Volume 88, Mean Corpuscular Hemoglobin 26.6L, Mean Corpuscular Hemoglobin Concent 30.2L, Red Cell Distribution Width 16.4H, Platelet Count 338, Mean Platelet Volume 6.1L, Neutrophils (%) (Auto) , Lymphocytes (%) (Auto) , Monocytes (%) (Auto) , Eosinophils (%) (Auto) , Basophils (%) (Auto) , Differential Total Cells Counted 100, Neutrophils % ( Manual) 66, Lymphocytes % (Manual) 27, Monocytes % (Manual) 6, Eosinophils % ( Manual) 1, Basophils % (Manual) 0, Band Neutrophils 0, Platelet Estimate Adequate, Platelet Morphology Normal, Hypochromasia 1+, Anisocytosis 1+, Sodium Level 144, Potassium Level 3.5, Chloride Level 107, Carbon Dioxide Level 29, Anion Gap 8, Blood Urea Nitrogen 14, Creatinine 1.5H, Estimat Glomerular Filtration Rate 42.1, Glucose Level 95, Calcium Level 8.7, Phosphorus Level 4.3 , Magnesium Level 1.8, Pro-B-Type Natriuretic Peptide 2232H Current Medications Medications (Trade) Dose Ordered Sig/Debbie Route PRN Reason Start Time Stop Time Status Last Admin Dose Admin Amiodarone HCl (Cordarone) 200 mg BID ORAL 04/19/20 18:00 07/18/20 08:59 04/24/20 08:26 Apixaban (Eliquis) 5 mg BID ORAL 04/22/20 18:00 07/21/20 17:59 04/24/20 08:27 Bisacodyl (Dulcolax) 10 mg DAILYPRN PRN RECTAL Constipation 04/18/20 14:30 07/17/20 14:29 Dextrose (Dextrose 50%) 25 ml Q30M PRN IV Hypoglycemia 04/18/20 14:30 07/17/20 14:29 Dextrose (Dextrose 50%) 50 ml Q30M PRN IV Hypoglycemia 04/18/20 14:30 07/17/20 14:29 Diltiazem HCl (Cardizem Tab) 90 mg EVERY 6 HOURS ORAL 04/19/20 18:00 05/18/20 21:59 04/24/20 06:52 Diphenhydramine HCl (Benadryl) 25 mg Q6H PRN ORAL Itching/Pruritis 04/18/20 14:30 05/18/20 14:29 Docusate Sodium (Colace) 100 mg EVERY 12 HOURS ORAL 04/18/20 21:00 05/18/20 20:59 04/24/20 08:26 Doxazosin Mesylate (Cardura) 4 mg DAILY ORAL 04/19/20 09:00 05/19/20 08:59 04/24/20 08:26 Duloxetine HCl (Cymbalta) 60 mg BID ORAL 04/19/20 18:00 07/17/20 17:59 04/24/20 08:26 Furosemide (Lasix) 40 mg DAILY ORAL 04/23/20 09:00 05/23/20 08:59 04/24/20 08:26 Gabapentin (Neurontin) 300 mg BEDTIME ORAL 04/18/20 21:00 05/18/20 20:59 04/23/20 21:43 Guaifenesin (Robitussin) 100 mg Q6H PRN ORAL For Cough 04/22/20 17:45 07/21/20 17:44 04/24/20 06:52 Hydralazine HCl (Apresoline) 50 mg Q6HR ORAL 04/18/20 18:00 07/17/20 17:59 04/24/20 06:52 Lorazepam (Ativan 2mg/ml 1ml) 0.5 mg Q4H PRN IV For Anxiety 04/18/20 14:30 04/25/20 14:29 04/24/20 03:09 Magnesium Hydroxide (Mom) 30 ml HSPRN PRN ORAL Constipation 04/18/20 14:30 05/18/20 14:29 04/22/20 17:00 Methocarbamol (Robaxin) 500 mg QIDPRN PRN ORAL Muscle Spasm 04/18/20 14:30 05/18/20 14:29 04/21/20 18:37 Metoprolol Tartrate (Lopressor) 25 mg Q12HR ORAL 04/22/20 21:00 07/21/20 20:59 04/24/20 08:26 Naloxone HCl (Narcan) 0.2 mg Q2M PRN IVP respiratory depression 04/20/20 14:00 07/19/20 13:59 Ondansetron HCl (Zofran) 4 mg Q6H PRN IVP Nausea & Vomiting 04/18/20 14:30 05/18/20 14:29 Oxycodone/ Acetaminophen (Percocet 10/325) 1 tab Q4H PRN ORAL For Pain 04/20/20 17:30 04/27/20 17:29 04/24/20 06:52 Phosphorus (Phospha 250 Neutral) 250 mg THREE TIMES A DAY ORAL 04/18/20 18:00 05/18/20 17:59 04/24/20 08:27 Polyethylene Glycol (Miralax) 17 gm DAILYPRN PRN ORAL Constipation 04/18/20 14:30 05/18/20 14:29 Potassium Chloride (K-Dur) 40 meq DAILY ORAL 04/19/20 09:00 07/18/20 08:59 04/24/20 08:27 Zolpidem Tartrate (Ambien) 5 mg HSPRN PRN ORAL Insomnia 04/20/20 16:30 04/27/20 16:29 04/23/20 21:42 Assessment/Plan Assessment/Plan IMPRESSION: 1. Small left pleural effusion. 2. Bibasilar infiltrates. 3. History of chronic pain. 4. Atrial fibrillation. 5. custodial resident. DISCUSSION: Continue medications Continue oxygen and pulmonary hygiene. No new recommendations Seven Yao Omar Syed MD Apr 24, 2020 09:48
--- NOTE | 2020-04-24 09:53 | Surgery Progress Note ---
Surgery Progress Note Subjective Symptoms: improved, tolerating diet, voiding well, passing flatus, BM, pain decreased Objective Last 24 Hour Vital Signs Date Time Temp Pulse Resp B/P (MAP) Pulse Ox O2 Delivery O2 Flow Rate FiO2 04/24/20 08:26 84 145/71 04/24/20 08:00 97.9 84 18 145/71 (95) 97 04/24/20 06:52 72 136/67 04/24/20 06:52 136/67 04/24/20 04:41 72 04/24/20 04:00 96.8 74 19 136/67 (90) 98 04/24/20 02:33 98.1 04/24/20 00:00 98.1 74 20 132/66 (88) 97 04/24/20 00:00 73 04/23/20 23:48 80 132/77 04/23/20 23:47 132/77 04/23/20 21:42 83 116/59 04/23/20 21:00 Nasal Cannula 2.0 Nasal Cannula 2.0 04/23/20 20:00 83 04/23/20 20:00 98.1 84 20 116/59 (78) 96 04/23/20 17:51 75 133/64 04/23/20 17:51 133/64 04/23/20 16:00 75 04/23/20 16:00 97.9 79 18 133/64 (87) 96 04/23/20 12:04 60 149/81 04/23/20 12:03 149/81 04/23/20 12:00 98.1 60 20 149/81 (103) 96 04/23/20 12:00 75 I&O Intake and Output 04/23/20 04/24/20 19:00 07:00 Intake Total 120 ml Output Total 500 ml 625 ml Balance -380 ml -625 ml Intake Oral 120 ml Output Urine Total 500 ml 625 ml Dressing: dry Wound: clean Cardiovascular: RSR Respiratory: clear Abdomen: soft, flat, non-tender, present bowel sounds, other Extremities: no tenderness, no cyanosis Laboratory Tests Test 04/24/20 05:00 White Blood Count 4.3 K/UL (4.8-10.8) L Red Blood Count 2.81 M/UL (4.20-5.40) L Hemoglobin 7.5 G/DL (12.0-16.0) L Hematocrit 24.7 % (37.0-47.0) L Mean Corpuscular Volume 88 FL (80-99) Mean Corpuscular Hemoglobin 26.6 PG (27.0-31.0) L Mean Corpuscular Hemoglobin Concent 30.2 G/DL (32.0-36.0) L Red Cell Distribution Width 16.4 % (11.6-14.8) H Platelet Count 338 K/UL (150-450) Mean Platelet Volume 6.1 FL (6.5-10.1) L Neutrophils (%) (Auto) % (45.0-75.0) Lymphocytes (%) (Auto) % (20.0-45.0) Monocytes (%) (Auto) % (1.0-10.0) Eosinophils (%) (Auto) % (0.0-3.0) Basophils (%) (Auto) % (0.0-2.0) Differential Total Cells Counted 100 Neutrophils % (Manual) 66 % (45-75) Lymphocytes % (Manual) 27 % (20-45) Monocytes % (Manual) 6 % (1-10) Eosinophils % (Manual) 1 % (0-3) Basophils % (Manual) 0 % (0-2) Band Neutrophils 0 % (0-8) Platelet Estimate Adequate Platelet Morphology Normal Hypochromasia 1+ Anisocytosis 1+ Sodium Level 144 MMOL/L (136-145) Potassium Level 3.5 MMOL/L (3.5-5.1) Chloride Level 107 MMOL/L (98-107) Carbon Dioxide Level 29 MMOL/L (21-32) Anion Gap 8 mmol/L (5-15) Blood Urea Nitrogen 14 mg/dL (7-18) Creatinine 1.5 MG/DL (0.55-1.30) H Estimat Glomerular Filtration Rate 42.1 mL/min (>60) Glucose Level 95 MG/DL (74-106) Calcium Level 8.7 MG/DL (8.5-10.1) Phosphorus Level 4.3 MG/DL (2.5-4.9) Magnesium Level 1.8 MG/DL (1.8-2.4) Pro-B-Type Natriuretic Peptide 2232 pg/mL (0-125) H Plan Problems: (1) Atrial flutter Assessment & Plan: Assessment/Plan: (1) Atrial flutter (2) Hypertension (3) Acute encephalopathy (4) VENTURA (acute kidney injury) (5) Acute and chronic respiratory failure with hypoxia (6) Abscess (7) Fistula (8) Sciatica neuralgia (9) Uncontrolled seizures (10) Forgetfulness (11) Sacral decubitus ulcer Assessment & Plan: Patient identified to have a sacral deep tissue injury upon admission air mattress prior and will order while in admission Care plan initiated Pt presented on admission with Obesity and multiple Pressure injuries. Unstageable Pressure Injury Sacrum. (L)4.5cm x (W)3.5cm. Base of wound is 10% necrotic,90% slough.Surrounding dry, pink epithelial,bordered by dry black and peeling skin.Pt stated sacral area is tender when she is supine. Resolving Pressure injury L Ischium . Elongated area that is a reabsorbed DTPI. Striated areas of pink epithelial within base of Pressure injury. Pt denied tenderness when palpated. Unstageable Pressure injury R Buttocks.(L)3.5cm x (W)2.5cm. Base of wound is 100 % slough. Edges are adherent to base of wound. Darker skin tone without induration periwound.No odor or exudate noted. Reabsorbed DPI R Ischium. Dry, black and peeling skin noted .Pt denied any tenderness when palpated.Bilat lower ext are edematous. Haemosiderin noted to L lower ext. Pt stated distal aspects of both lower ext are painful but stated more painful on RLE. DTPI noted to medial R heel. Intact blood filled blister noted(L)3.5cm x (W) 3cm. Periwound is blanchable but fluctuant. Pt complained of tenderness when minimally palpated R heel is boggy but blanchable. Denied tenderness when minimally palpated. Tx.Plan:Cleanse Wounds Sacrum and R Buttocks. Apply TheraHoney to wounds. Apply Moisture Barrier Paste Periwound Cover with Optifoam drsg. Change Daily and prn. Apply Moisture Barrier Paste to R and L Ischial Tuberosities with each Incontinence care. Apply Cavilon To both heels. Cover each Heel and Malleoli with Optifoam drsg. Change every 7 days and prn. Reposition at least every 2hours or as tolerated. Elevate both lower ext. with both heels off-loaded. APM/MAREN Mattress overlay. (12) Chronic back pain (13) Overdose of opiate or related narcotic (14) Cellulitis of left leg (15) Pericolonic abscess due to diverticulitis (16) Ventral incisional hernia Assessment & Plan: History of colon resection colostomy Ventral incisional hernia reducible No acute invention monitor parastomal hernia stable ostomy viable and functional no acute intervention planned unlikely etiology of pain (17) Chronic pain of both knees (18) Dehydration (19) Hyperkalemia (20) Sepsis Assessment & Plan: Patient reports not liking current diet texture of Moist Puree with Thin Liquids. Patient completed PO intake of solids (crackers), Patient's swallow is grossly functional. Plan: 1. Upgrade Diet Texture to Soft Solids and continue Thin Liquids; type/ supplements per RD. 2. Nursing to assist Patient with oral care BID. DAILY ESTIMATED NEEDS: Needs based on Pulmonary, sepsis, wound, VENTURA 75.8kg adj 20-30 kcals/kg 6922-5213 total kcals 1.25-1.5 g protein/kg 94-114 g total protein 25-30 mL/kg 1847-1050 total fluid mLs NUTRITION DIAGNOSIS: Swallowing difficulty r/t respiratory status as evidenced by pt orally intubated, on NGT feeds-> now extubated, pending TANK FARM ATTENDANT eval. PO DIET RECOMMENDATIONS-->>> Cardiac diet / texture per TANK FARM ATTENDANT ENTERAL NUTRITION RECOMMENDATIONS: VITAL AF 1.2 @55ml/hr x24 hrs to provide 1320ml, 1584 kcal, 99g pro, 1071ml free H2O - Maintain at goal as tolerated if not cleared for oral diet by TANK FARM ATTENDANT - Flush per MD/ HOB over 30 degree ADDITIONAL RECOMMENDATIONS: 1) Maintain calibrated bed scale wts (248lbs vs 217lbs last adm) 2) Monitor renal fxn and lytes closely, need for renal formula Creat wnl; lytes low (K,phos,mg) 3) Wound healing: ZnSO4 220mg QD x 10 days+ Boris BID via NGT hold vit C until renal fxn improves 4) NISS w/ TF, h/o DM 5) Monitor po intake if cleared for oral diet; need for snacks/supplements Julian Iglesias Apr 24, 2020 09:52
--- NOTE | 2020-04-24 10:40 | NUR ---
RADIOLOGY: PCXR COMPLETED 0900HRS. NF
--- NOTE | 2020-04-24 11:11 | NUR ---
PT NOTE Attempted to see patient for PT treatment. Patient declining to participate at this time, c/o fatigue. Will re-attempt later as schedule permits, Jo Ann ARCOS notified.
[2020-04-24 12:00] VITALS: BP 127/63
--- NOTE | 2020-04-24 12:06 | Diagnostic Imaging Report ---
Indication: Cough Technique: One view of the chest Comparison: 04/22/2020 Findings: Previously questioned right apical pneumothorax is not evident currently. There is increasing opacity at the right mid and lower lung. Perihilar opacities in the left lung appear slightly less conspicuous. Normal heart size. PICC remains. Impression: Increasing infiltrate and/or pleural fluid in the right mid and lower lung Stable or perhaps slightly decreased left perihilar streaky infiltrates
[2020-04-24] MEDS ORDERED: CARDIZEM90 MG ORAL (15:07)
[2020-04-24] MEDS ORDERED: PACERONE200 MG ORAL (15:07)
[2020-04-24] MEDS ORDERED: ELIQUIS5 MG ORAL (15:07)
[2020-04-24] MEDS ORDERED: LOPRESSOR25 M1 ORAL (15:07)
[2020-04-24 16:00] VITALS: BP 120/64
--- NOTE | 2020-04-24 16:25 | General Progress Note ---
Assessment/Plan Assessment/Plan: 69-year-old female with PMH of A. fib, chronic pain, diverticulitis, HTN, HLD who presents from SNF for uncontrolled chronic pain and A. fib RVR. #Afib w/ RVR - resolved -cont medical care on tele -s/p diltiazem PO and IV in ED, now rate controlled -Increased home amiodarone, cardizem -Cardio, Dr. Crooks, consulted, recs appreciated -EP, Dr. Dean, consulted, recs appreciated -Continue Eliquis and monitor H&H -Will be transfer to [facility] for Ablation #Iron Deficiency Anemia #Hx of FOBT + -s/p EGD/colon on 04/16 showing gastritis, ulcers near ostomy bag likely ischemic -Hemoglobin stable -ctm Hgb, transfuse for hgb <7 -7/2: s/p 1 U PRBC -d/w GI, Dr. Boyd, and Heme, Dr Wray, recs appreciated -ctm, no endoscopic intervention at this time #Hypokalemia #Hypomagnesemia -replaced, ctm -replace PRN #Left Plueral Effusion -CXR on admission w/slight increased left pleural effusion -pt w/no conversational dyspnea, lungs CTAB, ctm at this time -Pulm following #Hx Sepsis, HCAP/UTI, + ESBL -Sputum w/ multiple MDR organisms, now requiring aggressive AB -cont Micagungin, Polymoxin, Vancomyin for 2 more days -ID following #Chronic Pain -Continue Robaxin for spasms -Cont Percocet PRN -morphine for breakthrough pain -pain management eval appreciated #Seizure vs prolonged period of immobility #S/P Acute metabolic Encephalopathy -cont home meds #Hx of Colectomy w/ Colostomy -wound care DVT ppx: Apixaban Full Code I spent 38 mins on this encounter w 20 min on care/coordination and pt counseling. D/w RN, consulting MDs Subjective Constitutional: Reports: malaise HEENT: Reports: no symptoms Cardiovascular: Denies: irregular heart rate, lightheadedness, palpitations Respiratory: Reports: cough Gastrointestinal/Abdominal: Denies: black stools, tarry stools, rectal bleeding Genitourinary: Denies: burning, discharge, frequency Neurologic/Psychiatric: Reports: no symptoms Endocrine: Reports: no symptoms Hematologic/Lymphatic: Reports: no symptoms, anemia Allergies: Coded Allergies: LISINOPRIL (Verified Allergy, Unknown, Hives, 04/12/14) Subjective Patient states she wants to go home tomorrow and not to a SNF Objective Last 24 Hour Vital Signs Date Time Temp Pulse Resp B/P (MAP) Pulse Ox O2 Delivery O2 Flow Rate FiO2 04/24/20 12:03 127/63 04/24/20 12:01 71 127/63 04/24/20 12:00 97.5 71 20 127/63 (84) 96 04/24/20 12:00 71 04/24/20 09:00 Nasal Cannula 2.0 Nasal Cannula 2.0 04/24/20 08:26 84 145/71 04/24/20 08:00 83 04/24/20 08:00 97.9 84 18 145/71 (95) 97 04/24/20 06:52 72 136/67 04/24/20 06:52 136/67 04/24/20 04:41 72 04/24/20 04:00 96.8 74 19 136/67 (90) 98 04/24/20 02:33 98.1 04/24/20 00:00 98.1 74 20 132/66 (88) 97 04/24/20 00:00 73 04/23/20 23:48 80 132/77 04/23/20 23:47 132/77 04/23/20 21:42 83 116/59 04/23/20 21:00 Nasal Cannula 2.0 Nasal Cannula 2.0 04/23/20 20:00 83 04/23/20 20:00 98.1 84 20 116/59 (78) 96 04/23/20 17:51 75 133/64 04/23/20 17:51 133/64 Intake and Output 04/23/20 04/24/20 19:00 07:00 Intake Total 120 ml Output Total 500 ml 625 ml Balance -380 ml -625 ml Intake Oral 120 ml Output Urine Total 500 ml 625 ml Laboratory Tests 04/24/20 05:00: White Blood Count 4.3L, Red Blood Count 2.81L, Hemoglobin 7.5L, Hematocrit 24.7L , Mean Corpuscular Volume 88, Mean Corpuscular Hemoglobin 26.6L, Mean Corpuscular Hemoglobin Concent 30.2L, Red Cell Distribution Width 16.4H, Platelet Count 338, Mean Platelet Volume 6.1L, Neutrophils (%) (Auto) , Lymphocytes (%) (Auto) , Monocytes (%) (Auto) , Eosinophils (%) (Auto) , Basophils (%) (Auto) , Differential Total Cells Counted 100, Neutrophils % ( Manual) 66, Lymphocytes % (Manual) 27, Monocytes % (Manual) 6, Eosinophils % ( Manual) 1, Basophils % (Manual) 0, Band Neutrophils 0, Platelet Estimate Adequate, Platelet Morphology Normal, Hypochromasia 1+, Anisocytosis 1+, Sodium Level 144, Potassium Level 3.5, Chloride Level 107, Carbon Dioxide Level 29, Anion Gap 8, Blood Urea Nitrogen 14, Creatinine 1.5H, Estimat Glomerular Filtration Rate 42.1, Glucose Level 95, Calcium Level 8.7, Phosphorus Level 4.3 , Magnesium Level 1.8, Pro-B-Type Natriuretic Peptide 2232H Height (Feet): 5 Height (Inches): 10.00 Weight (Pounds): 200 General Appearance: WD/WN, no apparent distress, lethargic EENT: PERRL/EOMI, TMs normal Neck: normal alignment, normal inspection Cardiovascular: normal rate, no gallop/murmur, no JVD, irregularly irregular Respiratory/Chest: chest wall non-tender, no respiratory distress, no accessory muscle use, decreased breath sounds Abdomen: soft, no mass, other Extremities: non-tender, normal inspection Edema: trace edema Neurologic: play therapist II-XII grossly normal, no motor/sensory deficits, abnormal gait , oriented x 3, responsive Skin: normal pigmentation, warm/dry Heriberto Urias M.D. Apr 24, 2020 16:25
--- NOTE | 2020-04-24 16:38 | Cardiac Electrophysiology PN ---
Assessment/Plan Assessment/Plan 1. Recurrent atrial flutter with RVR despite amiodarone 200 mg bid, Cardizem 90 mg po every 6 hours and Lopressor 25 bid Eliquis was resumed. Awaiting transfer to [facility] for EPS and ablation 2. Severe anemia, s/p blood transfusion. FU GI and hematology 3. Hypertension. On Cardizem, Lasix 40 mg po bid, hydralazine 50 mg qid and Lopressor 25 bid 4. Hyperlipidemia, on Lipitor. 5. Pleural effusion. 6. History of diverticulitis requiring partial colectomy and colostomy placement. 7. Ischemic colitis proximal to colostomy insertion from last admission. ADOLFO RN and [facility] Transfer [facility] again Hopefully a bed tonight Subjective Subjective Had recurrence of atrial fluter 3 times yesterday despite being on Amio, Cardizem and Lopressor.In SR today Objective Last 24 Hour Vital Signs Date Time Temp Pulse Resp B/P (MAP) Pulse Ox O2 Delivery O2 Flow Rate FiO2 04/24/20 12:03 127/63 04/24/20 12:01 71 127/63 04/24/20 12:00 97.5 71 20 127/63 (84) 96 04/24/20 12:00 71 04/24/20 09:00 Nasal Cannula 2.0 Nasal Cannula 2.0 04/24/20 08:26 84 145/71 04/24/20 08:00 83 04/24/20 08:00 97.9 84 18 145/71 (95) 97 04/24/20 06:52 72 136/67 04/24/20 06:52 136/67 04/24/20 04:41 72 04/24/20 04:00 96.8 74 19 136/67 (90) 98 04/24/20 02:33 98.1 04/24/20 00:00 98.1 74 20 132/66 (88) 97 04/24/20 00:00 73 04/23/20 23:48 80 132/77 04/23/20 23:47 132/77 04/23/20 21:42 83 116/59 04/23/20 21:00 Nasal Cannula 2.0 Nasal Cannula 2.0 04/23/20 20:00 83 04/23/20 20:00 98.1 84 20 116/59 (78) 96 04/23/20 17:51 75 133/64 7/6/20 17:51 133/64 Intake and Output 04/23/20 04/24/20 19:00 07:00 Intake Total 120 ml Output Total 500 ml 625 ml Balance -380 ml -625 ml Intake Oral 120 ml Output Urine Total 500 ml 625 ml Laboratory Tests Test 04/24/20 05:00 White Blood Count 4.3 K/UL (4.8-10.8) L Red Blood Count 2.81 M/UL (4.20-5.40) L Hemoglobin 7.5 G/DL (12.0-16.0) L Hematocrit 24.7 % (37.0-47.0) L Mean Corpuscular Volume 88 FL (80-99) Mean Corpuscular Hemoglobin 26.6 PG (27.0-31.0) L Mean Corpuscular Hemoglobin Concent 30.2 G/DL (32.0-36.0) L Red Cell Distribution Width 16.4 % (11.6-14.8) H Platelet Count 338 K/UL (150-450) Mean Platelet Volume 6.1 FL (6.5-10.1) L Neutrophils (%) (Auto) % (45.0-75.0) Lymphocytes (%) (Auto) % (20.0-45.0) Monocytes (%) (Auto) % (1.0-10.0) Eosinophils (%) (Auto) % (0.0-3.0) Basophils (%) (Auto) % (0.0-2.0) Differential Total Cells Counted 100 Neutrophils % (Manual) 66 % (45-75) Lymphocytes % (Manual) 27 % (20-45) Monocytes % (Manual) 6 % (1-10) Eosinophils % (Manual) 1 % (0-3) Basophils % (Manual) 0 % (0-2) Band Neutrophils 0 % (0-8) Platelet Estimate Adequate Platelet Morphology Normal Hypochromasia 1+ Anisocytosis 1+ Sodium Level 144 MMOL/L (136-145) Potassium Level 3.5 MMOL/L (3.5-5.1) Chloride Level 107 MMOL/L (98-107) Carbon Dioxide Level 29 MMOL/L (21-32) Anion Gap 8 mmol/L (5-15) Blood Urea Nitrogen 14 mg/dL (7-18) Creatinine 1.5 MG/DL (0.55-1.30) H Estimat Glomerular Filtration Rate 42.1 mL/min (>60) Glucose Level 95 MG/DL (74-106) Calcium Level 8.7 MG/DL (8.5-10.1) Phosphorus Level 4.3 MG/DL (2.5-4.9) Magnesium Level 1.8 MG/DL (1.8-2.4) Pro-B-Type Natriuretic Peptide 2232 pg/mL (0-125) H Objective NECK: No JVD. LUNGS: Clear. CARDIOVASCULAR: Irregular S1 and S2 with no gallop or murmur. ABDOMEN: Soft. EXTREMITIES: 1+ pitting edema. Carlos Dean MD Apr 24, 2020 16:38
--- NOTE | 2020-04-24 16:42 | Cardiology Progress Note ---
Assessment/Plan Status: stable Assessment/Plan Assessment/Plan Assessment/Plan: 69-year-old female with PMH of A. fib, chronic pain, diverticulitis, HTN, HLD who presents from SNF for uncontrolled chronic pain and A. fib RVR. AFIB Hypokalemia Pleural effusion HTN HLD Recommendations: -Converted to NSR -Continue PO amiodarone 200 mg BID -Continue cardizem 90 mg q6 -Continue xarelto -Previous stress test not tolerated, will need coronary anatomy study -CV status -Outpatient cardiac cath and watchman next week -Atrial flutter ablation with EP -Transfer to [facility] for ablation Subjective Cardiovascular: Reports: no symptoms Respiratory: Reports: no symptoms Gastrointestinal/Abdominal: Reports: no symptoms Genitourinary: Reports: no symptoms Subjective no acute events, remains in NSR rates 80s no bleeding no CP/SOB Awaiting transfer to [facility] for Ablation watchman to be done as outpatient Objective Last 24 Hour Vital Signs Date Time Temp Pulse Resp B/P (MAP) Pulse Ox O2 Delivery O2 Flow Rate FiO2 04/24/20 12:03 127/63 04/24/20 12:01 71 127/63 04/24/20 12:00 97.5 71 20 127/63 (84) 96 04/24/20 12:00 71 04/24/20 09:00 Nasal Cannula 2.0 Nasal Cannula 2.0 04/24/20 08:26 84 145/71 04/24/20 08:00 83 04/24/20 08:00 97.9 84 18 145/71 (95) 97 04/24/20 06:52 72 136/67 04/24/20 06:52 136/67 04/24/20 04:41 72 04/24/20 04:00 96.8 74 19 136/67 (90) 98 04/24/20 02:33 98.1 04/24/20 00:00 98.1 74 20 132/66 (88) 97 04/24/20 00:00 73 04/23/20 23:48 80 132/77 04/23/20 23:47 132/77 04/23/20 21:42 83 116/59 04/23/20 21:00 Nasal Cannula 2.0 Nasal Cannula 2.0 04/23/20 20:00 83 04/23/20 20:00 98.1 84 20 116/59 (78) 96 04/23/20 17:51 75 133/64 04/23/20 17:51 133/64 General Appearance: no apparent distress, alert EENT: PERRL/EOMI, normal ENT inspection, TMs normal, pharynx normal Neck: non-tender, normal alignment, supple, normal inspection Rhythm: NSR Cardiovascular: normal peripheral pulses, normal rate Respiratory/Chest: chest wall non-tender, lungs clear, normal breath sounds Abdomen: normal bowel sounds, non tender, no organomegaly Extremities: normal range of motion, non-tender, normal inspection 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 normal, no motor/sensory deficits Intake and Output 04/23/20 04/24/20 19:00 07:00 Intake Total 120 ml Output Total 500 ml 625 ml Balance -380 ml -625 ml Intake Oral 120 ml Output Urine Total 500 ml 625 ml Laboratory Tests Test 04/24/20 05:00 White Blood Count 4.3 K/UL (4.8-10.8) L Red Blood Count 2.81 M/UL (4.20-5.40) L Hemoglobin 7.5 G/DL (12.0-16.0) L Hematocrit 24.7 % (37.0-47.0) L Mean Corpuscular Volume 88 FL (80-99) Mean Corpuscular Hemoglobin 26.6 PG (27.0-31.0) L Mean Corpuscular Hemoglobin Concent 30.2 G/DL (32.0-36.0) L Red Cell Distribution Width 16.4 % (11.6-14.8) H Platelet Count 338 K/UL (150-450) Mean Platelet Volume 6.1 FL (6.5-10.1) L Neutrophils (%) (Auto) % (45.0-75.0) Lymphocytes (%) (Auto) % (20.0-45.0) Monocytes (%) (Auto) % (1.0-10.0) Eosinophils (%) (Auto) % (0.0-3.0) Basophils (%) (Auto) % (0.0-2.0) Differential Total Cells Counted 100 Neutrophils % (Manual) 66 % (45-75) Lymphocytes % (Manual) 27 % (20-45) Monocytes % (Manual) 6 % (1-10) Eosinophils % (Manual) 1 % (0-3) Basophils % (Manual) 0 % (0-2) Band Neutrophils 0 % (0-8) Platelet Estimate Adequate Platelet Morphology Normal Hypochromasia 1+ Anisocytosis 1+ Sodium Level 144 MMOL/L (136-145) Potassium Level 3.5 MMOL/L (3.5-5.1) Chloride Level 107 MMOL/L (98-107) Carbon Dioxide Level 29 MMOL/L (21-32) Anion Gap 8 mmol/L (5-15) Blood Urea Nitrogen 14 mg/dL (7-18) Creatinine 1.5 MG/DL (0.55-1.30) H Estimat Glomerular Filtration Rate 42.1 mL/min (>60) Glucose Level 95 MG/DL (74-106) Calcium Level 8.7 MG/DL (8.5-10.1) Phosphorus Level 4.3 MG/DL (2.5-4.9) Magnesium Level 1.8 MG/DL (1.8-2.4) Pro-B-Type Natriuretic Peptide 2232 pg/mL (0-125) H Rafat Crooks MD Apr 24, 2020 16:41
--- NOTE | 2020-04-24 19:20 | NUR ---
NURSE NOTES: RECEIVED REPORT FROM JOSSELYN ROSE. AAOX4, VERBALLY RESPONSIVE AND ABLE TO MAKE NEEDS KNOWN. NO COMPLAINTS OF PAIN OR DISCOMFORT AT THIS TIME. BREATHING IS EVEN AND UNLABORED ON 2LPM VIA NC, NO S/SX OF DISTRESS NOTED. ANY PICC LINE PATENT, INTACT, ASYMPTOMATIC, SALINE-LOCKED. MIMS CATHETER DRAINING WELL TO GRAVITY, WITH CLEAR AND YELLOW URINE. LLQ COLOSTOMY INTACT, ASYMPTOMATIC WITH SMALL AMOUNT OF STOOL NOTED- SOFT INC CONSISTENCY. FALL AND SEIZURE PRECAUTIONS IN PLACE. ON P200 MATTRESS FOR WOUND MANAGEMENT, BED LOCKED AND IN LOWEST POSITION WITH PADDED SIDERAILS UP X 3. CALL LIGHT WITHIN REACH. WILL CONTINUE TO MONITOR FOR ANY CHANGES.
[2020-04-24 20:00] VITALS: BP 155/73
[2020-04-24] MEDS: Zolpidem 5mg tab ORAL PRN (20:52)
--- NOTE | 2020-04-24 21:02 | Infectious Diseases Prog Note ---
Assessment/Plan Assessment/Plan 1. hx esbl e.coli pna/acinetobacter pna, uti, sepsis, fevers, leukocytosis, a.flutter, respiratory failure, atx, dony, + ua, atx fungemia risk -s/p treatment - s/p polymyxin, micafungin and vancomycin - blood cultures negative - covid-19 testing negative x 4 - remove isolation - monitor labs - clinically stable - monitor chest x-ray - 04/24/20 - chest x-ray - increased infiltrate on right but decreased on left, no fevers, no leukocytosis, no sob, dry cough 2. Respiratory failure, on vent. 3. Renal failure. 4. Diabetes. 5. Hypertension. 6. Diabetes and hypertension, treatment per primary care team. 7. Patient with history of altered mental status. 8. Seizure history. 9. Chronic neck pain. 10. Acute kidney injury and renal failure. 11. Allergies to lisinopril. 12. Social history is negative. 13. Family history is noncontributory. 14. MAR was noted. 15. Case was discussed with RN. 16. ICU care. 17. Skin care. 18. Continue treatment per primary consultants. Subjective Constitutional: Reports: fever, fatigue HEENT: Reports: congestion Respiratory: Reports: dry cough; Denies: shortness of breath Cardiovascular: Denies: chest pain Gastrointestinal/Abdominal: Denies: nausea, vomiting, diarrhea Genitourinary: Reports: other - no weiss Neurologic: Denies: headache Psychiatric: Denies: depression Skin: Denies: rash Hematologic: Denies: bleeding Musculoskeletal: Denies: pain Allergies: Coded Allergies: LISINOPRIL (Verified Allergy, Unknown, Hives, 04/12/14) Objective Last 24 Hour Vital Signs Date Time Temp Pulse Resp B/P (MAP) Pulse Ox O2 Delivery O2 Flow Rate FiO2 04/24/20 20:44 80 155/73 04/24/20 17:40 77 120/64 04/24/20 17:40 120/64 04/24/20 16:00 97.7 68 18 120/64 (82) 96 04/24/20 16:00 76 04/24/20 12:03 127/63 04/24/20 12:01 71 127/63 04/24/20 12:00 97.5 71 20 127/63 (84) 96 04/24/20 12:00 71 04/24/20 09:00 Nasal Cannula 2.0 Nasal Cannula 2.0 04/24/20 08:26 84 145/71 04/24/20 08:00 83 04/24/20 08:00 97.9 84 18 145/71 (95) 97 04/24/20 06:52 72 136/67 04/24/20 06:52 136/67 04/24/20 04:41 72 04/24/20 04:00 96.8 74 19 136/67 (90) 98 04/24/20 02:33 98.1 04/24/20 00:00 98.1 74 20 132/66 (88) 97 04/24/20 00:00 73 04/23/20 23:48 80 132/77 04/23/20 23:47 132/77 04/23/20 21:42 83 116/59 04/23/20 21:00 Nasal Cannula 2.0 Nasal Cannula 2.0 Height (Feet): 5 Height (Inches): 10.00 Weight (Pounds): 200 General Appearance: no acute distress HEENT: normocephalic, atraumatic, anicteric, mucous membranes moist Respiratory/Chest: lungs clear, normal breath sounds, no respiratory distress, no accessory muscle use, rhonchi - bilaterally - occasional rhonchi Cardiovascular: normal rate, regular rhythm, no gallop/murmur, no JVD Abdomen: normal bowel sounds, soft, non tender, no organomegaly, non distended Genitourinary: other - no cva pain Extremities: no cyanosis Skin: no rash Neurologic/Psychiatric: 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 Previously demonstrated left suprahilar and perihilar infiltrates, right midlung infiltrate are probably unchanged left- sided pleural effusion appears slightly increased. The heart size is normal. Left arm PICC is now present Impression: Slightly increased left pleural effusion Stable bilateral infiltrates Chest x-ray - 04/20/20 - FINDINGS/IMPRESSION: Left upper extremity PICC line in the superior vena cava. Airspace consolidation with bronchiectasis within the medial aspect left upper lobe. Mild consolidation within the inferior aspect of the right lower lobe. Right perihilar opacity. Infiltrate in these areas are not excluded. No pleural effusion or pneumothorax. The heart size is enlarged. The aorta is calcified. Chest x-ray - 04/22/20 - Procedure: XRAY Chest 2v EXAM: XR Chest, 1 View CLINICAL HISTORY: Cough, Decub images TECHNIQUE: Frontal view of the chest. COMPARISON: earlier same day chest x-ray FINDINGS: Lungs: Mild atelectatic changes in the right middle lobe are incidentally noted. Pleural space: Bilateral decubitus views of the chest were obtained. The right decubitus view shows blunting of the right costophrenic evidenced a possible loculated right basilar effusion. The left decubitus view shows atelectatic changes in the left lung without a significant pleural effusion. No pneumothorax. Heart: Unremarkable. No cardiomegaly. Mediastinum: Unremarkable. Bones/joints: Unremarkable. IMPRESSION: Small right pleural effusion. Right middle lobe atelectasis. Otherwise no acute findings. Chest x-ray - 04/24/20 - Procedure: XRAY Chest 1v Indication: Cough Technique: One view of the chest Comparison: 04/22/2020 Findings: Previously questioned right apical pneumothorax is not evident currently. There is increasing opacity at the right mid and lower lung. Perihilar opacities in the left lung appear slightly less conspicuous. Normal heart size. PICC remains. Impression: Increasing infiltrate and/or pleural fluid in the right mid and lower lung Stable or perhaps slightly decreased left perihilar streaky infiltrates Microbiology Date/Time Source Procedure Growth Status 04/18/20 14:50 Nasal Nares MRSA Culture - Final NO METHICILLIN RESISTANT STAPH AUREUS... Complete 04/18/20 14:50 Rectum - Final NO CARBAPENEM-RESISTANT ENTEROBACTERI... Complete Laboratory Tests Test 04/24/20 05:00 White Blood Count 4.3 K/UL (4.8-10.8) L Red Blood Count 2.81 M/UL (4.20-5.40) L Hemoglobin 7.5 G/DL (12.0-16.0) L Hematocrit 24.7 % (37.0-47.0) L Mean Corpuscular Volume 88 FL (80-99) Mean Corpuscular Hemoglobin 26.6 PG (27.0-31.0) L Mean Corpuscular Hemoglobin Concent 30.2 G/DL (32.0-36.0) L Red Cell Distribution Width 16.4 % (11.6-14.8) H Platelet Count 338 K/UL (150-450) Mean Platelet Volume 6.1 FL (6.5-10.1) L Neutrophils (%) (Auto) % (45.0-75.0) Lymphocytes (%) (Auto) % (20.0-45.0) Monocytes (%) (Auto) % (1.0-10.0) Eosinophils (%) (Auto) % (0.0-3.0) Basophils (%) (Auto) % (0.0-2.0) Differential Total Cells Counted 100 Neutrophils % (Manual) 66 % (45-75) Lymphocytes % (Manual) 27 % (20-45) Monocytes % (Manual) 6 % (1-10) Eosinophils % (Manual) 1 % (0-3) Basophils % (Manual) 0 % (0-2) Band Neutrophils 0 % (0-8) Platelet Estimate Adequate Platelet Morphology Normal Hypochromasia 1+ Anisocytosis 1+ Sodium Level 144 MMOL/L (136-145) Potassium Level 3.5 MMOL/L (3.5-5.1) Chloride Level 107 MMOL/L (98-107) Carbon Dioxide Level 29 MMOL/L (21-32) Anion Gap 8 mmol/L (5-15) Blood Urea Nitrogen 14 mg/dL (7-18) Creatinine 1.5 MG/DL (0.55-1.30) H Estimat Glomerular Filtration Rate 42.1 mL/min (>60) Glucose Level 95 MG/DL (74-106) Calcium Level 8.7 MG/DL (8.5-10.1) Phosphorus Level 4.3 MG/DL (2.5-4.9) Magnesium Level 1.8 MG/DL (1.8-2.4) Pro-B-Type Natriuretic Peptide 2232 pg/mL (0-125) H Current Medications Medications (Trade) Dose Ordered Sig/Debbie Route PRN Reason Start Time Stop Time Status Last Admin Dose Admin Amiodarone HCl (Cordarone) 200 mg BID ORAL 04/19/20 18:00 07/18/20 08:59 04/24/20 17:41 Apixaban (Eliquis) 5 mg BID ORAL 04/22/20 18:00 07/21/20 17:59 04/24/20 17:41 Bisacodyl (Dulcolax) 10 mg DAILYPRN PRN RECTAL Constipation 04/18/20 14:30 07/17/20 14:29 Dextrose (Dextrose 50%) 25 ml Q30M PRN IV Hypoglycemia 04/18/20 14:30 07/17/20 14:29 Dextrose (Dextrose 50%) 50 ml Q30M PRN IV Hypoglycemia 04/18/20 14:30 07/17/20 14:29 Diltiazem HCl (Cardizem Tab) 90 mg EVERY 6 HOURS ORAL 04/19/20 18:00 05/18/20 21:59 04/24/20 17:40 Diphenhydramine HCl (Benadryl) 25 mg Q6H PRN ORAL Itching/Pruritis 04/18/20 14:30 05/18/20 14:29 Docusate Sodium (Colace) 100 mg EVERY 12 HOURS ORAL 04/18/20 21:00 05/18/20 20:59 04/24/20 08:26 Doxazosin Mesylate (Cardura) 4 mg DAILY ORAL 04/19/20 09:00 05/19/20 08:59 04/24/20 08:26 Duloxetine HCl (Cymbalta) 60 mg BID ORAL 04/19/20 18:00 07/17/20 17:59 04/24/20 17:40 Furosemide (Lasix) 40 mg DAILY ORAL 04/23/20 09:00 05/23/20 08:59 04/24/20 08:26 Gabapentin (Neurontin) 300 mg BEDTIME ORAL 04/18/20 21:00 05/18/20 20:59 04/24/20 20:44 Guaifenesin (Robitussin) 100 mg Q6H PRN ORAL For Cough 04/22/20 17:45 07/21/20 17:44 04/24/20 06:52 Hydralazine HCl (Apresoline) 50 mg Q6HR ORAL 04/18/20 18:00 07/17/20 17:59 04/24/20 17:40 Lorazepam (Ativan 2mg/ml 1ml) 0.5 mg Q4H PRN IV For Anxiety 04/18/20 14:30 04/25/20 14:29 04/24/20 03:09 Magnesium Hydroxide (Mom) 30 ml HSPRN PRN ORAL Constipation 04/18/20 14:30 05/18/20 14:29 04/22/20 17:00 Methocarbamol (Robaxin) 500 mg QIDPRN PRN ORAL Muscle Spasm 04/18/20 14:30 05/18/20 14:29 04/21/20 18:37 Metoprolol Tartrate (Lopressor) 25 mg Q12HR ORAL 04/22/20 21:00 07/21/20 20:59 04/24/20 20:44 Naloxone HCl (Narcan) 0.2 mg Q2M PRN IVP respiratory depression 04/20/20 14:00 07/19/20 13:59 Ondansetron HCl (Zofran) 4 mg Q6H PRN IVP Nausea & Vomiting 04/18/20 14:30 05/18/20 14:29 Oxycodone/ Acetaminophen (Percocet 10/325) 1 tab Q4H PRN ORAL For Pain 04/20/20 17:30 04/27/20 17:29 04/24/20 20:45 Phosphorus (Phospha 250 Neutral) 250 mg THREE TIMES A DAY ORAL 04/18/20 18:00 05/18/20 17:59 04/24/20 17:40 Polyethylene Glycol (Miralax) 17 gm DAILYPRN PRN ORAL Constipation 04/18/20 14:30 05/18/20 14:29 Potassium Chloride (K-Dur) 40 meq DAILY ORAL 04/19/20 09:00 07/18/20 08:59 04/24/20 08:27 Zolpidem Tartrate (Ambien) 5 mg HSPRN PRN ORAL Insomnia 04/20/20 16:30 04/27/20 16:29 04/23/20 21:42 Jose Valdes MD Apr 24, 2020 21:02
[2020-04-25] VITALS: BP 155/78
--- NOTE | 2020-04-25 02:00 | NUR ---
NURSE NOTES: KEY ACCOUNT REPRESENTATIVE AT [facility] CALLED TO INFORM US THERE IS STILL NO BED AVAILABLE. UPDATED PATIENT.
[2020-04-25 04:00] VITALS: BP 148/72
[2020-04-25] MEDS: LORazepam Inj 2mg/ml 1ml IV PRN (05:02)
[2020-04-25] MEDS: HydrALAZINE 50mg tab ORAL SCH ×4 (05:10→23:52)
[2020-04-25] MEDS: dilTIAZem HCl 90mg tab ORAL SCH ×4 (05:10→23:52)
--- NOTE | 2020-04-25 06:55 | Hematology/Onc Progress Note ---
Assessment/Plan Assessment/Plan Assessment and Recs # Anemia of iron deficiency, with a ferritin that is less than 50 recentrly --> Anemia workup has been ordered, rule out gi bleed --> recheck ferritin, occult was + --> No evidence of hemolysis is noted, peripheral smear has been reviewed. --> Hgb goal >7. Transfuse prn. --> IRon IV x 5 days started 04/06 as ferritin is low--> ferritin now 290. --> Medications have been reviewed --> low threshold for gi evaluation in case has occult + --> holding xarelto at this time-->eliquis restarted --> hgb trend 8.2-->7.2->8->7.4->7.6-->6.8->7.8->7.6-->7.3 --> GI eval prn --> 04/21 stool ob negative # Hypercoagulable disorder is on xarelto for afib with rvr --> reviewed cards recs --> have dw Pcp --> monitor h/h--> per cards for watchman/ablation future # Leukopenia with gram neg pna, uti, sepsis, fevers, leukocytosis, a.flutter, respiratory failure, atx, dony, + ua, atx --> covid is neg --> abx svetlana and micafungin/polymyx-->hola/svetlana-->polymyxin/vanc/micafungin--> vanc --> as per id recs --> wbc trend 4.5-->4.1-->4-->5.7 # Respiratory failure, on vent initially 03/2020 --> now extubated, nc prn # Renal failure. --> improved # Diabetes. --> endo prn # Hypertension. --> per cards # Diabetes and hypertension, treatment per primary care team. --> a1c goal <8, acchuchecks qac and qhs # Patient with history of altered mental status. --> metabolic encephalopathy # Seizure history. # Chronic neck pain. # Lactic acidsis # HLD # Obesity # Dvt ppx --> eliquis restarted Appreciate consultation and vanessa RN Subjective HEENT: Denies: no symptoms, eye pain, blurred vision, tearing, double vision, ear pain, ear discharge, nose pain, nose congestion, throat pain, throat swelling, mouth pain, mouth swelling, other Cardiovascular: Denies: no symptoms, chest pain, edema, irregular heart rate, lightheadedness, palpitations, syncope, other Gastrointestinal/Abdominal: Denies: no symptoms, abdomen distended, abdominal pain, black stools, tarry stools, blood in stool, constipated, diarrhea, difficulty swallowing, nausea, poor appetite, poor fluid intake, rectal bleeding , vomiting, other Genitourinary: Denies: no symptoms, burning, discharge, frequency, flank pain, hematuria, incontinence, pain, urgency, other Neurologic/Psychiatric: Denies: no symptoms, anxiety, depressed, emotional problems, headache, numbness, paresthesia, pre-existing deficit, seizure, tingling, tremors, weakness, other Endocrine: Denies: no symptoms, excessive sweating, flushing, intolerance to cold, intolerance to heat, increased hunger, increased thirst, increased urine, unexplained weight gain, unexplained weight loss, other Hematologic/Lymphatic: Denies: no symptoms, anemia, easy bleeding, easy bruising, adenopathy, other Allergies: Coded Allergies: LISINOPRIL (Verified Allergy, Unknown, Hives, 04/12/14) Subjective 04/20 in general feeling better, dw team, off xarelto, for watchman by Jackie next week 04/22 s/p blood, hgb improved to 7.6, stool ob negative, room air 04/23 is back on eliquis, as per cards recs, hgb remains stable 04/24 has been feeling fatigued, no bleeding, for transfer to [facility] 04/25 pending bed at [facility], labs noted, hgb low, to transfuse Objective Objective Current Medications Medications (Trade) Dose Ordered Sig/Debbie Route PRN Reason Start Time Stop Time Status Last Admin Dose Admin Amiodarone HCl (Cordarone) 200 mg BID ORAL 04/19/20 18:00 07/18/20 08:59 04/24/20 17:41 Apixaban (Eliquis) 5 mg BID ORAL 04/22/20 18:00 07/21/20 17:59 04/24/20 17:41 Bisacodyl (Dulcolax) 10 mg DAILYPRN PRN RECTAL Constipation 04/18/20 14:30 07/17/20 14:29 Dextrose (Dextrose 50%) 25 ml Q30M PRN IV Hypoglycemia 04/18/20 14:30 07/17/20 14:29 Dextrose (Dextrose 50%) 50 ml Q30M PRN IV Hypoglycemia 04/18/20 14:30 07/17/20 14:29 Diltiazem HCl (Cardizem Tab) 90 mg EVERY 6 HOURS ORAL 04/19/20 18:00 05/18/20 21:59 04/25/20 05:10 Diphenhydramine HCl (Benadryl) 25 mg Q6H PRN ORAL Itching/Pruritis 04/18/20 14:30 05/18/20 14:29 Docusate Sodium (Colace) 100 mg EVERY 12 HOURS ORAL 04/18/20 21:00 05/18/20 20:59 04/24/20 08:26 Doxazosin Mesylate (Cardura) 4 mg DAILY ORAL 04/19/20 09:00 05/19/20 08:59 04/24/20 08:26 Duloxetine HCl (Cymbalta) 60 mg BID ORAL 04/19/20 18:00 07/17/20 17:59 04/24/20 17:40 Gabapentin (Neurontin) 300 mg BEDTIME ORAL 04/18/20 21:00 05/18/20 20:59 04/24/20 20:44 Guaifenesin (Robitussin) 100 mg Q6H PRN ORAL For Cough 04/22/20 17:45 07/21/20 17:44 04/24/20 06:52 Hydralazine HCl (Apresoline) 50 mg Q6HR ORAL 04/18/20 18:00 07/17/20 17:59 04/25/20 05:10 Lorazepam (Ativan 2mg/ml 1ml) 0.5 mg Q4H PRN IV For Anxiety 04/18/20 14:30 04/25/20 14:29 04/25/20 05:02 Magnesium Hydroxide (Mom) 30 ml HSPRN PRN ORAL Constipation 04/18/20 14:30 05/18/20 14:29 04/22/20 17:00 Methocarbamol (Robaxin) 500 mg QIDPRN PRN ORAL Muscle Spasm 04/18/20 14:30 05/18/20 14:29 04/21/20 18:37 Metoprolol Tartrate (Lopressor) 25 mg Q12HR ORAL 04/22/20 21:00 07/21/20 20:59 04/24/20 20:44 Naloxone HCl (Narcan) 0.2 mg Q2M PRN IVP respiratory depression 04/20/20 14:00 07/19/20 13:59 Ondansetron HCl (Zofran) 4 mg Q6H PRN IVP Nausea & Vomiting 04/18/20 14:30 05/18/20 14:29 Oxycodone/ Acetaminophen (Percocet 10/325) 1 tab Q4H PRN ORAL For Pain 04/20/20 17:30 04/27/20 17:29 04/25/20 05:25 Phosphorus (Phospha 250 Neutral) 250 mg THREE TIMES A DAY ORAL 04/18/20 18:00 05/18/20 17:59 04/24/20 17:40 Polyethylene Glycol (Miralax) 17 gm DAILYPRN PRN ORAL Constipation 04/18/20 14:30 05/18/20 14:29 Potassium Chloride (K-Dur) 40 meq DAILY ORAL 04/19/20 09:00 07/18/20 08:59 04/24/20 08:27 Zolpidem Tartrate (Ambien) 5 mg HSPRN PRN ORAL Insomnia 04/20/20 16:30 04/27/20 16:29 04/24/20 20:52 Last 24 Hour Vital Signs Date Time Temp Pulse Resp B/P (MAP) Pulse Ox O2 Delivery O2 Flow Rate FiO2 04/25/20 05:10 76 148/72 04/25/20 05:10 148/72 04/25/20 04:00 70 04/25/20 04:00 98.3 76 17 148/72 (97) 97 04/25/20 00:00 82 04/25/20 00:00 98.7 81 18 155/78 (103) 99 04/24/20 23:23 81 155/78 04/24/20 23:22 155/78 04/24/20 21:00 Nasal Cannula 2.0 Nasal Cannula 2.0 04/24/20 20:44 80 155/73 04/24/20 20:00 77 04/24/20 20:00 99.4 80 18 155/73 (100) 97 04/24/20 17:40 77 120/64 04/24/20 17:40 120/64 04/24/20 16:00 97.7 68 18 120/64 (82) 96 04/24/20 16:00 76 04/24/20 12:03 127/63 04/24/20 12:01 71 127/63 04/24/20 12:00 97.5 71 20 127/63 (84) 96 04/24/20 12:00 71 04/24/20 09:00 Nasal Cannula 2.0 Nasal Cannula 2.0 04/24/20 08:26 84 145/71 04/24/20 08:00 83 04/24/20 08:00 97.9 84 18 145/71 (95) 97 04/24/20 06:52 72 136/67 04/24/20 06:52 136/67 04/24/20 04:41 72 04/24/20 04:00 96.8 74 19 136/67 (90) 98 04/24/20 02:33 98.1 04/24/20 00:00 98.1 74 20 132/66 (88) 97 04/24/20 00:00 73 04/23/20 23:48 80 132/77 04/23/20 23:47 132/77 04/23/20 21:42 83 116/59 04/23/20 21:00 Nasal Cannula 2.0 Nasal Cannula 2.0 04/23/20 20:00 83 04/23/20 20:00 98.1 84 20 116/59 (78) 96 04/23/20 17:51 75 133/64 04/23/20 17:51 133/64 04/23/20 16:00 75 04/23/20 16:00 97.9 79 18 133/64 (87) 96 04/23/20 12:04 60 149/81 04/23/20 12:03 149/81 04/23/20 12:00 98.1 60 20 149/81 (103) 96 04/23/20 12:00 75 04/23/20 09:32 81 157/77 04/23/20 09:00 Nasal Cannula 2.0 Nasal Cannula 2.0 04/23/20 08:00 80 04/23/20 08:00 97.6 81 18 157/77 (103) 97 Intake and Output 04/24/20 04/25/20 19:00 07:00 Intake Total 360 ml Output Total 1000 ml 500 ml Balance -640 ml -500 ml Intake Oral 360 ml Output Urine Total 1000 ml 500 ml # Voids 1 Labs Test 04/22/20 07:54 04/22/20 08:25 04/23/20 04:30 04/24/20 05:00 POC Whole Blood Glucose 104 MG/DL (74-106) White Blood Count 5.7 K/UL (4.8-10.8) 4.6 K/UL (4.8-10.8) 4.3 K/UL (4.8-10.8) Red Blood Count 2.85 M/UL (4.20-5.40) 2.80 M/UL (4.20-5.40) 2.81 M/UL (4.20-5.40) Hemoglobin 7.6 G/DL (12.0-16.0) 7.3 G/DL (12.0-16.0) 7.5 G/DL (12.0-16.0) Hematocrit 25.1 % (37.0-47.0) 24.9 % (37.0-47.0) 24.7 % (37.0-47.0) Mean Corpuscular Volume 88 FL (80-99) 89 FL (80-99) 88 FL (80-99) Mean Corpuscular Hemoglobin 26.5 PG (27.0-31.0) 26.0 PG (27.0-31.0) 26.6 PG (27.0-31.0) Mean Corpuscular Hemoglobin Concent 30.1 G/DL (32.0-36.0) 29.2 G/DL (32.0-36.0) 30.2 G/DL (32.0-36.0) Red Cell Distribution Width 16.0 % (11.6-14.8) 16.3 % (11.6-14.8) 16.4 % (11.6-14.8) Platelet Count 358 K/UL (150-450) 352 K/UL (150-450) 338 K/UL (150-450) Mean Platelet Volume 5.9 FL (6.5-10.1) 6.3 FL (6.5-10.1) 6.1 FL (6.5-10.1) Neutrophils (%) (Auto) % (45.0-75.0) % (45.0-75.0) % (45.0-75.0) Lymphocytes (%) (Auto) % (20.0-45.0) % (20.0-45.0) % (20.0-45.0) Monocytes (%) (Auto) % (1.0-10.0) % (1.0-10.0) % (1.0-10.0) Eosinophils (%) (Auto) % (0.0-3.0) % (0.0-3.0) % (0.0-3.0) Basophils (%) (Auto) % (0.0-2.0) % (0.0-2.0) % (0.0-2.0) Differential Total Cells Counted 100 100 100 Neutrophils % (Manual) 74 % (45-75) 76 % (45-75) 66 % (45-75) Lymphocytes % (Manual) 18 % (20-45) 15 % (20-45) 27 % (20-45) Monocytes % (Manual) 7 % (1-10) 9 % (1-10) 6 % (1-10) Eosinophils % (Manual) 1 % (0-3) 0 % (0-3) 1 % (0-3) Basophils % (Manual) 0 % (0-2) 0 % (0-2) 0 % (0-2) Band Neutrophils 0 % (0-8) 0 % (0-8) 0 % (0-8) Platelet Estimate Adequate Adequate Adequate Platelet Morphology Normal Normal Normal Hypochromasia 1+ 1+ 1+ Anisocytosis 1+ 1+ 1+ Sodium Level 142 MMOL/L (136-145) 145 MMOL/L (136-145) 144 MMOL/L (136-145) Potassium Level 3.4 MMOL/L (3.5-5.1) 3.7 MMOL/L (3.5-5.1) 3.5 MMOL/L (3.5-5.1) Chloride Level 104 MMOL/L (98-107) 109 MMOL/L (98-107) 107 MMOL/L (98-107) Carbon Dioxide Level 30 MMOL/L (21-32) 31 MMOL/L (21-32) 29 MMOL/L (21-32) Anion Gap 8 mmol/L (5-15) 5 mmol/L (5-15) 8 mmol/L (5-15) Blood Urea Nitrogen 10 mg/dL (7-18) 13 mg/dL (7-18) 14 mg/dL (7-18) Creatinine 1.2 MG/DL (0.55-1.30) 1.4 MG/DL (0.55-1.30) 1.5 MG/DL (0.55-1.30) Estimat Glomerular Filtration Rate 54.3 mL/min (>60) 45.5 mL/min (>60) 42.1 mL/min (>60) Glucose Level 112 MG/DL (74-106) 99 MG/DL (74-106) 95 MG/DL (74-106) Calcium Level 8.5 MG/DL (8.5-10.1) 8.8 MG/DL (8.5-10.1) 8.7 MG/DL (8.5-10.1) Phosphorus Level 4.3 MG/DL (2.5-4.9) Magnesium Level 1.8 MG/DL (1.8-2.4) Pro-B-Type Natriuretic Peptide 2232 pg/mL (0-125) Height (Feet): 5 Height (Inches): 10.00 Weight (Pounds): 200 Objective Physical Exam Sp02 EP Interpretation: reviewed, normal General: Patient appears chronically ill Head: normocephalic, atraumatic Respiratory: , crackles - both lower lobes Cardiovascular: tachycardia Gastrointestinal: non tender, soft Musculoskeletal: other - Patient appears chronically debilitated both lower extremities are extended Neurologic: other - Some verbal response, but chronic disability Skin: no rash : abhishek+ Virgil Wray MD Apr 25, 2020 06:55
--- NOTE | 2020-04-25 07:30 | NUR ---
HAND-OFF: Report given to JOSSELYN MERINO. PLAN OF CARE ENDORSED.
--- NOTE | 2020-04-25 07:31 | NUR ---
NURSE NOTES: Received report from Judy/RN. Patient is asleep, lying semi-bustamante, resting comfortably. On 2L nasal cannula, no acute distress/SOB noted. PICC line on left upper arm, Patent and clean. Desai draining well to gravity. Bed in low position and locked, call light within reach, side rails up x3. Encouraged to use call light when needed. Will continue plan of care.
[2020-04-25 08:00] VITALS: BP 139/59
--- NOTE | 2020-04-25 08:41 | Surgery Progress Note ---
Surgery Progress Note Subjective Additional Comments no acute events resting comfortable pending transfer to [facility] for ablation Objective Last 24 Hour Vital Signs Date Time Temp Pulse Resp B/P (MAP) Pulse Ox O2 Delivery O2 Flow Rate FiO2 04/25/20 08:00 97.5 79 18 139/59 (85) 97 04/25/20 05:10 76 148/72 04/25/20 05:10 148/72 04/25/20 04:00 70 04/25/20 04:00 98.3 76 17 148/72 (97) 97 04/25/20 00:00 82 04/25/20 00:00 98.7 81 18 155/78 (103) 99 04/24/20 23:23 81 155/78 04/24/20 23:22 155/78 04/24/20 21:00 Nasal Cannula 2.0 Nasal Cannula 2.0 04/24/20 20:44 80 155/73 04/24/20 20:00 77 04/24/20 20:00 99.4 80 18 155/73 (100) 97 04/24/20 17:40 77 120/64 04/24/20 17:40 120/64 04/24/20 16:00 97.7 68 18 120/64 (82) 96 04/24/20 16:00 76 04/24/20 12:03 127/63 04/24/20 12:01 71 127/63 04/24/20 12:00 97.5 71 20 127/63 (84) 96 04/24/20 12:00 71 04/24/20 09:00 Nasal Cannula 2.0 Nasal Cannula 2.0 I&O Intake and Output 04/24/20 04/25/20 19:00 07:00 Intake Total 360 ml Output Total 1000 ml 500 ml Balance -640 ml -500 ml Intake Oral 360 ml Output Urine Total 1000 ml 500 ml # Voids 1 Cardiovascular: RSR Respiratory: clear Abdomen: soft, non-tender, present bowel sounds Extremities: no tenderness, no cyanosis Plan Problems: (1) Atrial flutter Assessment & Plan: Assessment/Plan: (1) Atrial flutter as per cardiology pending transfer for ablation at [facility] (2) Hypertension (3) Acute encephalopathy (4) VENTURA (acute kidney injury) (5) Acute and chronic respiratory failure with hypoxia (6) Abscess (7) Fistula (8) Sciatica neuralgia (9) Uncontrolled seizures (10) Forgetfulness (11) Sacral decubitus ulcer Assessment & Plan: Patient identified to have a sacral deep tissue injury upon admission air mattress prior and will order while in admission Care plan initiated Pt presented on admission with Obesity and multiple Pressure injuries. Unstageable Pressure Injury Sacrum. (L)4.5cm x (W)3.5cm. Base of wound is 10% necrotic,90% slough.Surrounding dry, pink epithelial,bordered by dry black and peeling skin.Pt stated sacral area is tender when she is supine. Resolving Pressure injury L Ischium . Elongated area that is a reabsorbed DTPI. Striated areas of pink epithelial within base of Pressure injury. Pt denied tenderness when palpated. Unstageable Pressure injury R Buttocks.(L)3.5cm x (W)2.5cm. Base of wound is 100 % slough. Edges are adherent to base of wound. Darker skin tone without induration periwound.No odor or exudate noted. Reabsorbed DPI R Ischium. Dry, black and peeling skin noted .Pt denied any tenderness when palpated.Bilat lower ext are edematous. Haemosiderin noted to L lower ext. Pt stated distal aspects of both lower ext are painful but stated more painful on RLE. DTPI noted to medial R heel. Intact blood filled blister noted(L)3.5cm x (W) 3cm. Periwound is blanchable but fluctuant. Pt complained of tenderness when minimally palpated R heel is boggy but blanchable. Denied tenderness when minimally palpated. Tx.Plan:Cleanse Wounds Sacrum and R Buttocks. Apply TheraHoney to wounds. Apply Moisture Barrier Paste Periwound Cover with Optifoam drsg. Change Daily and prn. Apply Moisture Barrier Paste to R and L Ischial Tuberosities with each Incontinence care. Apply Cavilon To both heels. Cover each Heel and Malleoli with Optifoam drsg. Change every 7 days and prn. Reposition at least every 2hours or as tolerated. Elevate both lower ext. with both heels off-loaded. APM/MAREN Mattress overlay. (12) Chronic back pain (13) Overdose of opiate or related narcotic (14) Cellulitis of left leg (15) Pericolonic abscess due to diverticulitis (16) Ventral incisional hernia Assessment & Plan: History of colon resection colostomy Ventral incisional hernia reducible No acute invention monitor parastomal hernia stable ostomy viable and functional no acute intervention planned unlikely etiology of pain (17) Chronic pain of both knees (18) Dehydration (19) Hyperkalemia (20) Sepsis Assessment & Plan: Patient reports not liking current diet texture of Moist Puree with Thin Liquids. Patient completed PO intake of solids (crackers), Patient's swallow is grossly functional. Plan: 1. Upgrade Diet Texture to Soft Solids and continue Thin Liquids; type/ supplements per RD. 2. Nursing to assist Patient with oral care BID. DAILY ESTIMATED NEEDS: Needs based on Pulmonary, sepsis, wound, VENTURA 75.8kg adj 20-30 kcals/kg 4345-8405 total kcals 1.25-1.5 g protein/kg 94-114 g total protein 25-30 mL/kg 7704-0018 total fluid mLs NUTRITION DIAGNOSIS: Swallowing difficulty r/t respiratory status as evidenced by pt orally intubated, on NGT feeds-> now extubated, pending AUDIT CONTROL CLERK eval. PO DIET RECOMMENDATIONS-->>> Cardiac diet / texture per AUDIT CONTROL CLERK ENTERAL NUTRITION RECOMMENDATIONS: VITAL AF 1.2 @55ml/hr x24 hrs to provide 1320ml, 1584 kcal, 99g pro, 1071ml free H2O - Maintain at goal as tolerated if not cleared for oral diet by AUDIT CONTROL CLERK - Flush per MD/ HOB over 30 degree ADDITIONAL RECOMMENDATIONS: 1) Maintain calibrated bed scale wts (248lbs vs 217lbs last adm) 2) Monitor renal fxn and lytes closely, need for renal formula Creat wnl; lytes low (K,phos,mg) 3) Wound healing: ZnSO4 220mg QD x 10 days+ Boris BID via NGT hold vit C until renal fxn improves 4) NISS w/ TF, h/o DM 5) Monitor po intake if cleared for oral diet; need for snacks/supplements Julian Iglesias Apr 25, 2020 08:41
[2020-04-25] MEDS: Eliquis 5mg tablet ORAL SCH (08:47)
[2020-04-25] MEDS: Docusate 100mg cap ORAL SCH ×2 (08:47→20:21)
[2020-04-25] MEDS: Amiodarone 200mg tab ORAL SCH ×2 (08:48→17:42)
[2020-04-25] MEDS: Doxazosin 4mg tab ORAL SCH (08:48)
[2020-04-25] MEDS: Phospha 250 Neutral tab ORAL SCH ×3 (08:48→17:41)
--- NOTE | 2020-04-25 08:51 | NUR ---
Transfer update: CARMEN spoke to Kelly from [facility] Currently no beds at this time Transfer center has CM + nurses station phone number when bed is available [facility] T:[phone]
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
--- NOTE | 2020-04-25 09:46 | General Progress Note ---
Assessment/Plan Assessment/Plan: (1) lumbar degenerative disease (2) lumbar spondylosis (3) multiple joint pain and osteoarthritis (4) sacral decubitus ulcer Patient to be continued on Percocet as needed. D/w Dr. Dumont and he concurred. Subjective Date patient seen: Apr 25, 2020 Time patient seen: 09:30 - am Allergies: Coded Allergies: LISINOPRIL (Verified Allergy, Unknown, Hives, 04/12/14) Subjective REVIEW OF SYSTEMS: Denies rash, fever, chills, sweating, dizziness, drowsiness, blurred vision, sore throat, change in her weight. No shortness of breath, chest pain, palpitations, or cough. No nausea, vomiting, diarrhea, blood in stool or urine. No dysuria. SUBJECTIVE: Patient in bed pain is tolerated on the Percocet. No signs of pain or distress. No new complaints at this time. Objective Last 24 Hour Vital Signs Date Time Temp Pulse Resp B/P (MAP) Pulse Ox O2 Delivery O2 Flow Rate FiO2 04/25/20 08:48 79 139/59 04/25/20 08:00 97.5 79 18 139/59 (85) 97 04/25/20 05:10 76 148/72 04/25/20 05:10 148/72 04/25/20 04:00 70 04/25/20 04:00 98.3 76 17 148/72 (97) 97 04/25/20 00:00 82 04/25/20 00:00 98.7 81 18 155/78 (103) 99 04/24/20 23:23 81 155/78 04/24/20 23:22 155/78 04/24/20 21:00 Nasal Cannula 2.0 Nasal Cannula 2.0 04/24/20 20:44 80 155/73 04/24/20 20:00 77 04/24/20 20:00 99.4 80 18 155/73 (100) 97 04/24/20 17:40 77 120/64 04/24/20 17:40 120/64 04/24/20 16:00 97.7 68 18 120/64 (82) 96 04/24/20 16:00 76 04/24/20 12:03 127/63 04/24/20 12:01 71 127/63 04/24/20 12:00 97.5 71 20 127/63 (84) 96 04/24/20 12:00 71 Intake and Output 04/24/20 04/25/20 19:00 07:00 Intake Total 360 ml Output Total 1000 ml 500 ml Balance -640 ml -500 ml Intake Oral 360 ml Output Urine Total 1000 ml 500 ml # Voids 1 Height (Feet): 5 Height (Inches): 10.00 Weight (Pounds): 200 Objective GENERAL: Alert, awake, and oriented. LUNGS: Decreased breath sounds bilaterally. HEART: S1 and S2 regular. ABDOMEN: Ostomy noted. EXTREMITIES: No cyanosis. No clubbing. NEURO: No changes. Joby Yoon Apr 25, 2020 09:46
--- NOTE | 2020-04-25 10:51 | Pulmonology Progress Note ---
Subjective ROS Limited/Unobtainable: No Interval Events: None new Constitutional: Reports: fever, fatigue HEENT: Repors: no symptoms Respiratory: Reports: no symptoms Cardiovascular: Reports: no symptoms Gastrointestinal/Abdominal: Denies: nausea, vomiting, diarrhea Genitourinary: Reports: no symptoms Psychiatric: Denies: depression Skin: Denies: rash Musculoskeletal: Denies: pain Allergies: Coded Allergies: LISINOPRIL (Verified Allergy, Unknown, Hives, 04/12/14) All Systems: reviewed and negative except above Objective Last 24 Hour Vital Signs Date Time Temp Pulse Resp B/P (MAP) Pulse Ox O2 Delivery O2 Flow Rate FiO2 04/25/20 09:00 Nasal Cannula 2.0 Nasal Cannula 2.0 04/25/20 08:48 79 139/59 04/25/20 08:00 79 04/25/20 08:00 97.5 79 18 139/59 (85) 97 04/25/20 05:10 76 148/72 04/25/20 05:10 148/72 04/25/20 04:00 70 04/25/20 04:00 98.3 76 17 148/72 (97) 97 04/25/20 00:00 82 04/25/20 00:00 98.7 81 18 155/78 (103) 99 04/24/20 23:23 81 155/78 04/24/20 23:22 155/78 04/24/20 21:00 Nasal Cannula 2.0 Nasal Cannula 2.0 04/24/20 20:44 80 155/73 04/24/20 20:00 77 04/24/20 20:00 99.4 80 18 155/73 (100) 97 04/24/20 17:40 77 120/64 04/24/20 17:40 120/64 04/24/20 16:00 97.7 68 18 120/64 (82) 96 04/24/20 16:00 76 04/24/20 12:03 127/63 04/24/20 12:01 71 127/63 04/24/20 12:00 97.5 71 20 127/63 (84) 96 04/24/20 12:00 71 Intake and Output 04/24/20 04/25/20 19:00 07:00 Intake Total 360 ml Output Total 1000 ml 500 ml Balance -640 ml -500 ml Intake Oral 360 ml Output Urine Total 1000 ml 500 ml # Voids 1 General Appearance: no acute distress HEENT: normocephalic Respiratory: chest wall non-tender Cardiovascular: normal peripheral pulses Abdomen: normal bowel sounds Current Medications Medications (Trade) Dose Ordered Sig/Debbie Route PRN Reason Start Time Stop Time Status Last Admin Dose Admin Amiodarone HCl (Cordarone) 200 mg BID ORAL 04/19/20 18:00 07/18/20 08:59 04/25/20 08:48 Apixaban (Eliquis) 5 mg BID ORAL 04/22/20 18:00 07/21/20 17:59 04/25/20 08:47 Bisacodyl (Dulcolax) 10 mg DAILYPRN PRN RECTAL Constipation 04/18/20 14:30 07/17/20 14:29 Dextrose (Dextrose 50%) 25 ml Q30M PRN IV Hypoglycemia 04/18/20 14:30 07/17/20 14:29 Dextrose (Dextrose 50%) 50 ml Q30M PRN IV Hypoglycemia 04/18/20 14:30 07/17/20 14:29 Diltiazem HCl (Cardizem Tab) 90 mg EVERY 6 HOURS ORAL 04/19/20 18:00 05/18/20 21:59 04/25/20 05:10 Diphenhydramine HCl (Benadryl) 25 mg Q6H PRN ORAL Itching/Pruritis 04/18/20 14:30 05/18/20 14:29 Docusate Sodium (Colace) 100 mg EVERY 12 HOURS ORAL 04/18/20 21:00 05/18/20 20:59 04/25/20 08:47 Doxazosin Mesylate (Cardura) 4 mg DAILY ORAL 04/19/20 09:00 05/19/20 08:59 04/25/20 08:48 Duloxetine HCl (Cymbalta) 60 mg BID ORAL 04/19/20 18:00 07/17/20 17:59 04/25/20 08:47 Gabapentin (Neurontin) 300 mg BEDTIME ORAL 04/18/20 21:00 05/18/20 20:59 04/24/20 20:44 Guaifenesin (Robitussin) 100 mg Q6H PRN ORAL For Cough 04/22/20 17:45 07/21/20 17:44 04/24/20 06:52 Hydralazine HCl (Apresoline) 50 mg Q6HR ORAL 04/18/20 18:00 07/17/20 17:59 04/25/20 05:10 Lorazepam (Ativan 2mg/ml 1ml) 0.5 mg Q4H PRN IV For Anxiety 04/18/20 14:30 04/25/20 14:29 04/25/20 05:02 Magnesium Hydroxide (Mom) 30 ml HSPRN PRN ORAL Constipation 04/18/20 14:30 05/18/20 14:29 04/22/20 17:00 Methocarbamol (Robaxin) 500 mg QIDPRN PRN ORAL Muscle Spasm 04/18/20 14:30 05/18/20 14:29 04/21/20 18:37 Metoprolol Tartrate (Lopressor) 25 mg Q12HR ORAL 04/22/20 21:00 07/21/20 20:59 04/25/20 08:48 Naloxone HCl (Narcan) 0.2 mg Q2M PRN IVP respiratory depression 04/20/20 14:00 07/19/20 13:59 Ondansetron HCl (Zofran) 4 mg Q6H PRN IVP Nausea & Vomiting 04/18/20 14:30 05/18/20 14:29 Oxycodone/ Acetaminophen (Percocet 10/325) 1 tab Q4H PRN ORAL For Pain 04/25/20 09:30 05/02/20 09:29 04/25/20 09:31 Phosphorus (Phospha 250 Neutral) 250 mg THREE TIMES A DAY ORAL 04/18/20 18:00 05/18/20 17:59 04/25/20 08:48 Polyethylene Glycol (Miralax) 17 gm DAILYPRN PRN ORAL Constipation 04/18/20 14:30 05/18/20 14:29 Potassium Chloride (K-Dur) 40 meq DAILY ORAL 04/19/20 09:00 07/18/20 08:59 04/25/20 08:48 Zolpidem Tartrate (Ambien) 5 mg HSPRN PRN ORAL Insomnia 04/20/20 16:30 04/27/20 16:29 04/24/20 20:52 Assessment/Plan Assessment/Plan IMPRESSION: 1. Small left pleural effusion. 2. Bibasilar infiltrates. 3. History of chronic pain. 4. Atrial fibrillation. 5. correction resident. DISCUSSION: Continue medications Continue oxygen and pulmonary hygiene. No new recommendations Travis Cordova M.D. Travis Cordova MD Apr 25, 2020 10:51
[2020-04-25 12:00] VITALS: BP 147/70
--- NOTE | 2020-04-25 12:12 | Cardiac Electrophysiology PN ---
Assessment/Plan Assessment/Plan 1. Recurrent atrial flutter with RVR despite amiodarone 200 mg bid, Cardizem 90 mg po qid and Lopressor 25 bid Hold Eliquis for ablation. Awaiting transfer to [facility] for EPS and ablation. Start Lovenox if OK with hematology 2. Severe anemia, s/p blood transfusion. FU GI and hematology 3. Hypertension. On Cardizem, Lasix 40 mg po bid, hydralazine 50 mg qid and Lopressor 25 bid 4. Hyperlipidemia, on Lipitor. 5. Pleural effusion. 6. History of diverticulitis requiring partial colectomy and colostomy placement. 7. Ischemic colitis proximal to colostomy insertion from last admission. ADOLFO RN and [facility] again Subjective Subjective Awaiting transfer to [facility] for flutter ablation in view of recurrent typical atrial fluter despite being on Amio, Cardizem and Lopressor.In SR today Objective Last 24 Hour Vital Signs Date Time Temp Pulse Resp B/P (MAP) Pulse Ox O2 Delivery O2 Flow Rate FiO2 04/25/20 09:00 Nasal Cannula 2.0 Nasal Cannula 2.0 04/25/20 08:48 79 139/59 04/25/20 08:00 79 04/25/20 08:00 97.5 79 18 139/59 (85) 97 04/25/20 05:10 76 148/72 04/25/20 05:10 148/72 04/25/20 04:00 70 04/25/20 04:00 98.3 76 17 148/72 (97) 97 04/25/20 00:00 82 04/25/20 00:00 98.7 81 18 155/78 (103) 99 04/24/20 23:23 81 155/78 04/24/20 23:22 155/78 04/24/20 21:00 Nasal Cannula 2.0 Nasal Cannula 2.0 04/24/20 20:44 80 155/73 04/24/20 20:00 77 04/24/20 20:00 99.4 80 18 155/73 (100) 97 04/24/20 17:40 77 120/64 04/24/20 17:40 120/64 04/24/20 16:00 97.7 68 18 120/64 (82) 96 04/24/20 16:00 76 Intake and Output 04/24/20 04/25/20 19:00 07:00 Intake Total 360 ml Output Total 1000 ml 500 ml Balance -640 ml -500 ml Intake Oral 360 ml Output Urine Total 1000 ml 500 ml # Voids 1 Objective NECK: No JVD. LUNGS: Clear. CARDIOVASCULAR: Irregular S1 and S2 with no gallop or murmur. ABDOMEN: Soft. EXTREMITIES: 1+ pitting edema. Carlos Dean MD Apr 25, 2020 12:12
--- NOTE | 2020-04-25 13:37 | Nephrology Progress Note ---
Assessment/Plan Plan #Afib with RVR #HTN #Hypokalemia #Hypomagnesemia #Left Plueral Effusion #Hx Sepsis, HCAP/UTI, + ESBL #Chronic Pain #Iron Deficiency Anemia #Seizure vs prolonged period of immobility #S/P Acute metabolic Encephalopathy #Hx of Colectomy w/ Colostomy - tele - rate control per cardiology - resume AC- on apixaban - hold lasix - transfer to [facility] for ablation - replete lytes - monitor h -s/p EGD/colon on 04/16 showing gastritis, ulcers near ostomy bag likely ischemic , biopsies obtained, follow-up pathology -ctm Hgb, transfuse for hgb <7 -cont home meds -wound care - monitor renal function Time spent 45 min - greater than 50% on care coordination and counseling Subjective ROS Limited/Unobtainable: No Constitutional: Reports: malaise, weakness HEENT: Denies: no symptoms, eye pain, blurred vision, tearing, double vision, ear pain, ear discharge, nose pain, nose congestion, throat pain, throat swelling, mouth pain, mouth swelling, other Genitourinary: Denies: no symptoms, burning, discharge, frequency, flank pain, hematuria, incontinence, pain, urgency, other Neurologic/Psychiatric: Denies: no symptoms, anxiety, depressed, emotional problems, headache, numbness, paresthesia, pre-existing deficit, seizure, tingling, tremors, weakness, other Subjective plan to transfer to [facility] for ablation Cr uptrending - will hold lasix no chest pain no SOB hemoglobin improved s/p transfusion started on AC Objective Objective Last 24 Hour Vital Signs Date Time Temp Pulse Resp B/P (MAP) Pulse Ox O2 Delivery O2 Flow Rate FiO2 04/25/20 12:39 75 147/70 04/25/20 12:39 147/70 04/25/20 09:00 Nasal Cannula 2.0 Nasal Cannula 2.0 04/25/20 08:48 79 139/59 04/25/20 08:00 79 04/25/20 08:00 97.5 79 18 139/59 (85) 97 04/25/20 05:10 76 148/72 04/25/20 05:10 148/72 04/25/20 04:00 70 04/25/20 04:00 98.3 76 17 148/72 (97) 97 04/25/20 00:00 82 04/25/20 00:00 98.7 81 18 155/78 (103) 99 04/24/20 23:23 81 155/78 04/24/20 23:22 155/78 04/24/20 21:00 Nasal Cannula 2.0 Nasal Cannula 2.0 04/24/20 20:44 80 155/73 04/24/20 20:00 77 04/24/20 20:00 99.4 80 18 155/73 (100) 97 04/24/20 17:40 77 120/64 04/24/20 17:40 120/64 04/24/20 16:00 97.7 68 18 120/64 (82) 96 04/24/20 16:00 76 Intake and Output 04/24/20 04/25/20 19:00 07:00 Intake Total 360 ml Output Total 1000 ml 500 ml Balance -640 ml -500 ml Intake Oral 360 ml Output Urine Total 1000 ml 500 ml # Voids 1 Height (Feet): 5 Height (Inches): 10.00 Weight (Pounds): 200 Venkat Montes M.D. Apr 25, 2020 13:36
--- NOTE | 2020-04-25 14:17 | NUR ---
CASE MANAGEMENT: REVIEW 04/25/20 SI:ANEMIA 97.9 75 20 147/70 98% ON RA IS:LOPRESSOR PO BID ELIQUIS PO BID CARDURA PO QD AMIODARONE PO QD NEURONTIN PO QHS PHOSPHA NEUTRAL PO TID \: 2E TELE UNIT PLAN: TRANSFER TO [facility] WHEN BED AVAILABLE
--- NOTE | 2020-04-25 15:02 | Discharge Summary ---
Discharge Summary Hospital Course Date of Admission Apr 18, 2020 at 13:08 Date of Discharge 04/25/20 Admitting Diagnosis RAPID AF HPI 69-year-old female with PMH of A. fib, chronic pain, diverticulitis, HTN, HLD who presents from SNF for uncontrolled chronic pain and A. fib RVR. Patient was at intermediate when she was found to have a HR of 150, patient was sent to the ED was found to be in rapid A. fib RVR, was given diltiazem p.o. and IV with return to regular rate. Of note, patient was recently DC'd from hospital on 04/17 for a long hospitalization due to pneumonia, was tested negative for COVID, and was planned to complete IV ABX treatment of Micagungin, Polymoxin, Vancomyin for 3 more days. Patient currently denies any NAVARRO, vision changes, CP, S OB, abdominal pain, pain around her ostomy bag. Consultations EP Cardiology Dr. Dean Infectious disease Nephrology Hematology/onc Pulmonology General surgery Hospital Course 69-year-old female with PMH of A. fib, chronic pain, diverticulitis, HTN, HLD who presents from SNF for uncontrolled chronic pain and A. fib RVR from SNF. A fib RVR resolved after being given diltiazem in ED. Home meds of Amiodarone and Cardizem were increased. On CXR patient had asymptomatic pleural effusion and Pulmonary was consulted and recommended to monitor. Patient completed Micafungin, Polymyxin, Vancomycin for CAP. Patein was anemic below 7 and required 1 unit pRBC transfusion and hematology followed. He Xarelto was held for her A. fib. then Elequis was eventual restarted then switched to Lovenox for future ablation at [facility]. Patient will be transferred to [facility] today. I spent 38 mins on this encounter w 20 min on care/coordination and pt counseling. D/w RN, consulting MDs Discharge Medications New Medications: Amiodarone Hcl* (Pacerone*) 200 Mg Tablet 200 MG ORAL BID for 30 Days, #60 TAB Apixaban (Eliquis) 5 Mg Tablet 5 MG ORAL BID for 30 Days, #60 TAB Diltiazem HCl (Diltiazem HCl) 90 Mg Tablet 90 MG ORAL EVERY 6 HOURS, #30 TAB Metoprolol Tartrate (Metoprolol Tartrate) 25 Mg Tablet 25 MG ORAL Q12HR, #30 TAB Continued Medications: Acetaminophen* (Acetaminophen 325MG Tablet*) 325 Mg Tablet 650 MG ORAL Q6H PRN for Mild Pain (Pain Scale 1-3), TAB (This prescription has been renewed) Docusate Sodium (Docusate Sodium) 50 Mg/5 Ml Liquid 10 ML PO Q12HR for BOWEL MGT (This prescription has been renewed) Doxazosin Mesylate* (Doxazosin Mesylate*) 4 Mg Tablet 4 MG ORAL DAILY, TAB Duloxetine Hcl* (Cymbalta*) 60 Mg Capsule.dr 60 MG ORAL BID, CAP (This prescription has been renewed) Furosemide* (Lasix*) 40 Mg Tablet 40 MG ORAL EVERY 12 HOURS for 30 Days, #60 TAB 3 Refills Gabapentin* (Gabapentin*) 300 Mg Capsule 300 MG ORAL BEDTIME, CAP (This prescription has been renewed) Hydralazine HCl (Hydralazine HCl) 50 Mg Tablet 50 MG ORAL Q6HR for 30 Days, #30 TAB Methocarbamol* (Robaxin-500*) 500 Mg Tablet 500 MG ORAL QID PRN for MUSCLE SPASM (This prescription has been renewed) Micafungin Sodium (Micafungin) 100 Mg Vial 100 MG IV QHS for SEPSIS, VIAL (This prescription has been renewed) Oxycodone Hcl/Acetaminophen 10-325 Mg Tablet (Percocet 10-325 Mg Tablet*) 1 Each Tablet 1 TAB ORAL Q6H PRN for MODERATE TO SEVERE PAIN (This prescription has been renewed) Phosphorus (Phospha 250 Neutral Tablet) 250 Mg Tablet 250 MG ORAL THREE TIMES A DAY for 10 Days, #10 TAB Simvastatin (Zocor) 40 Mg Tablet 10 MG ORAL BEDTIME for cholesterol, TAB Temazepam (Temazepam*) 7.5 Mg Capsule 7.5 MG ORAL BEDTIME PRN for INSOMNIA for 14 Days, CAP (This prescription has been renewed) Discontinued Medications: Amiodarone Hcl* (Pacerone*) 200 Mg Tablet 200 MG ORAL DAILY for 90 Days, TAB 3 Refills Amlodipine Besylate* (Amlodipine Besylate*) 10 Mg Tablet 10 MG ORAL DAILY, TAB Diltiazem HCl (Diltiazem HCl) 90 Mg Tablet 90 MG ORAL EVERY 8 HOURS for 90 Days, #270 TAB 3 Refills Rivaroxaban (Xarelto) 15 Mg Tablet 15 MG ORAL DAILY for 90 Days, #180 TAB 3 Refills Discharge Discharge Vital Signs Last Vital Signs Date Time Temp Pulse Resp B/P (MAP) Pulse Ox O2 Delivery O2 Flow Rate FiO2 04/25/20 12:39 75 147/70 04/25/20 12:00 97.9 20 98 04/25/20 09:00 Nasal Cannula 2.0 Nasal Cannula 2.0 Discharge Disposition Patient was discharged to Heriberto Urias M.D. Apr 25, 2020 15:02
[2020-04-25 15:16] LABS: ANION GAP 6 mmol/L (5-15); BLOOD UREA NITROGEN 18 mg/dL (7-18); CALCIUM 9.1 MG/DL (8.5-10.1); CARBON DIOXIDE 32 MMOL/L (21-32); CHLORIDE 107 MMOL/L (98-107); CREATININE 1.7 MG/DL (0.55-1.30); POTASSIUM 3.9 MMOL/L (3.5-5.1); SODIUM 144 MMOL/L (136-145)
[2020-04-25 15:19] LABS: PHOSPHORUS 4.7 MG/DL (2.5-4.9)
[2020-04-25 16:00] VITALS: BP 126/60
--- NOTE | 2020-04-25 19:23 | NUR ---
NURSE NOTES: RECEIVED REPORT FROM JOSSELYN MERINO. PATIENT AWAKE IN BED, OX4, VERBALLY RESPONSIVE AND ABLE TO MAKE NEEDS KNOWN. NO COMPLAINTS OF PAIN OR DISCOMFORT AT THIS TIME. BREATHING IS EVEN AND UNLABORED ON ROOM AIR, NO S/SX OF DISTRESS NOTED. PICC LINE ON ANY PATENT, INTACT, NO ASYMPTOMATIC, SALINE-LOCKED. MIMS CATHETER DRAINING WELL TO GRAVITY, URINE CLEAR AND YELLOW IN COLOR. LLQ COLOSTOMY EMPTY, STOMA PINK IN COLOR. FALL, SEIZURE AND ASPIRATION PRECAUTIONS IN PLACE. CONTACT ISOLATION IMPLEMENTED. BED LOCKED AND IN LOWEST POSITION, SIDERAILS UP X 3. CALL LIGHT WITHIN REACH. WILL CONTINUE TO MONITOR FOR ANY CHANGES.
[2020-04-25 20:00] VITALS: BP 138/68
[2020-04-25] MEDS: Zolpidem 5mg tab ORAL PRN (20:20)
--- NOTE | 2020-04-25 20:28 | Cardiology Progress Note ---
Assessment/Plan Status: stable Assessment/Plan Assessment/Plan Assessment/Plan: 69-year-old female with PMH of A. fib, chronic pain, diverticulitis, HTN, HLD who presents from SNF for uncontrolled chronic pain and A. fib RVR. AFIB Hypokalemia Pleural effusion HTN HLD Recommendations: -Converted to NSR -Continue PO amiodarone 200 mg BID -Continue cardizem 90 mg q6 -Continue xarelto -Previous stress test not tolerated, will need coronary anatomy study -CV status -Outpatient cardiac cath and watchman next week -Atrial flutter ablation with EP -Transfer to [facility] for ablation Subjective Cardiovascular: Reports: no symptoms Respiratory: Reports: no symptoms Gastrointestinal/Abdominal: Reports: no symptoms Genitourinary: Reports: no symptoms Subjective no acute events, remains in NSR rates 80s no bleeding no CP/SOB Awaiting transfer to [facility] for Ablation watchman to be done as outpatient Objective Last 24 Hour Vital Signs Date Time Temp Pulse Resp B/P (MAP) Pulse Ox O2 Delivery O2 Flow Rate FiO2 04/25/20 20:21 70 149/72 04/25/20 17:42 75 147/70 04/25/20 17:42 126/60 04/25/20 16:00 74 04/25/20 16:00 98.1 75 18 126/60 (82) 97 04/25/20 12:39 75 147/70 04/25/20 12:39 147/70 04/25/20 12:00 71 04/25/20 12:00 97.9 75 20 147/70 (95) 98 04/25/20 09:00 Nasal Cannula 2.0 Nasal Cannula 2.0 04/25/20 08:48 79 139/59 04/25/20 08:00 79 04/25/20 08:00 97.5 79 18 139/59 (85) 97 04/25/20 05:10 76 148/72 04/25/20 05:10 148/72 04/25/20 04:00 70 04/25/20 04:00 98.3 76 17 148/72 (97) 97 04/25/20 00:00 82 04/25/20 00:00 98.7 81 18 155/78 (103) 99 04/24/20 23:23 81 155/78 04/24/20 23:22 155/78 04/24/20 21:00 Nasal Cannula 2.0 Nasal Cannula 2.0 04/24/20 20:44 80 155/73 General Appearance: no apparent distress, alert EENT: PERRL/EOMI, normal ENT inspection, TMs normal, pharynx normal Neck: non-tender, normal alignment, supple, normal inspection, no JVD Rhythm: NSR Cardiovascular: normal peripheral pulses, normal rate Respiratory/Chest: chest wall non-tender, lungs clear, normal breath sounds Abdomen: normal bowel sounds, non tender, soft, no organomegaly Extremities: normal range of motion, non-tender, normal inspection, no calf tenderness, no swelling Neurologic: running specialist II-XII grossly normal, no motor/sensory deficits Intake and Output 04/24/20 04/25/20 19:00 07:00 Intake Total 360 ml Output Total 1000 ml 500 ml Balance -640 ml -500 ml Intake Oral 360 ml Output Urine Total 1000 ml 500 ml # Voids 1 Laboratory Tests Test 04/25/20 14:50 Sodium Level 144 MMOL/L (136-145) Potassium Level 3.9 MMOL/L (3.5-5.1) Chloride Level 107 MMOL/L (98-107) Carbon Dioxide Level 32 MMOL/L (21-32) Anion Gap 6 mmol/L (5-15) Blood Urea Nitrogen 18 mg/dL (7-18) Creatinine 1.7 MG/DL (0.55-1.30) H Estimat Glomerular Filtration Rate 36.4 mL/min (>60) Glucose Level 117 MG/DL (74-106) H Calcium Level 9.1 MG/DL (8.5-10.1) Phosphorus Level 4.7 MG/DL (2.5-4.9) Magnesium Level 1.9 MG/DL (1.8-2.4) Rafat Crooks MD Apr 25, 2020 20:28
[2020-04-26] VITALS: BP 124/60
--- NOTE | 2020-04-26 | NUR ---
NURSE NOTES: PATIENT AWAKE IN BED, AOX4, NO COMPLAINTS OF PAIN OR DISCOMFORT AT THIS TIME. BREATHING EVEN AND UNLABORED ON 2LPM, NO S/SX OF DISTRESS. WILL CONTINUE TO MONITOR FOR ANY CHANGES.
[2020-04-26 04:00] VITALS: BP 128/66
[2020-04-26] MEDS: HydrALAZINE 50mg tab ORAL SCH ×2 (05:47→11:19)
[2020-04-26] MEDS: dilTIAZem HCl 90mg tab ORAL SCH ×2 (05:48→11:19)
[2020-04-26 07:03] LABS: ALANINE AMINOTRANSFERASE 6 U/L (12-78); ALBUMIN 1.8 G/DL (3.4-5.0); ALBUMIN/GLOBULIN RATIO 0.4 (1.0-2.7); ALKALINE PHOSPHATASE 133 U/L (46-116); ANION GAP 7 mmol/L (5-15); ASPARTATE AMINO TRANSFERASE 18 U/L (15-37); BILIRUBIN,TOTAL 0.2 MG/DL (0.2-1.0); BLOOD UREA NITROGEN 22 mg/dL (7-18); CALCIUM 8.8 MG/DL (8.5-10.1); CARBON DIOXIDE 30 MMOL/L (21-32); CHLORIDE 110 MMOL/L (98-107); CREATININE 1.7 MG/DL (0.55-1.30); POTASSIUM 3.6 MMOL/L (3.5-5.1); SODIUM 146 MMOL/L (136-145)
[2020-04-26 07:13] LABS: HEMATOCRIT 24.9 % (37.0-47.0); HEMOGLOBIN 7.4 G/DL (12.0-16.0); MEAN CORPUSCULAR VOLUME 88 FL (80-99); PLATELET COUNT 305 K/UL (150-450); RED BLOOD COUNT 2.84 M/UL (4.20-5.40); RED CELL DISTRIBUTION WIDTH 16.1 % (11.6-14.8); WHITE BLOOD COUNT 4.4 K/UL (4.8-10.8)
--- NOTE | 2020-04-26 07:49 | NUR ---
HAND-OFF: Report given to Clara. Pt mic.
--- NOTE | 2020-04-26 07:50 | NUR ---
NURSE NOTES: Received report from Laurie/JOSSELYN. Patient is awake, alert and oriented X4, eating breakfast in bed. On 2L nasal cannula, no acute distress/SOB noted. PICC line on left upper arm, Patent and clean. Desai draining well to gravity. Bed in low position and locked, call light within reach, side rails up x3. Encouraged to use call light when needed. Will continue plan of care.
[2020-04-26 08:00] VITALS: BP 143/70
[2020-04-26] MEDS: Doxazosin 4mg tab ORAL SCH (08:31)
[2020-04-26] MEDS: Phospha 250 Neutral tab ORAL SCH ×2 (08:31→13:16)
[2020-04-26] MEDS: Amiodarone 200mg tab ORAL SCH (08:33)
[2020-04-26] MEDS: Docusate 100mg cap ORAL SCH (08:33)
--- NOTE | 2020-04-26 08:33 | Hematology/Onc Progress Note ---
Assessment/Plan Assessment/Plan Assessment and Recs # Anemia of iron deficiency, with a ferritin that is less than 50 recentrly --> Anemia workup has been ordered, rule out gi bleed --> recheck ferritin, occult was + --> No evidence of hemolysis is noted, peripheral smear has been reviewed. --> Hgb goal >7. Transfuse prn. --> IRon IV x 5 days started 04/06 as ferritin is low--> ferritin now 290. --> Medications have been reviewed --> low threshold for gi evaluation in case has occult + --> holding xarelto at this time-->eliquis restarted --> hgb trend 8.2-->7.2->8->7.4->7.6-->6.8->7.8->7.6-->7.3-->7.4 --> GI eval prn --> 04/21 stool ob negative # Hypercoagulable disorder is on xarelto for afib with rvr --> reviewed cards recs --> have dw Pcp --> monitor h/h--> per cards for watchman/ablation future # Leukopenia with gram neg pna, uti, sepsis, fevers, leukocytosis, a.flutter, respiratory failure, atx, dony, + ua, atx --> covid is neg --> abx svetlana and micafungin/polymyx-->hola/svetlana-->polymyxin/vanc/micafungin--> vanc --> as per id recs --> wbc trend 4.5-->4.1-->4-->5.7 # Respiratory failure, on vent initially 03/2020 --> now extubated, nc prn # Renal failure. --> improved # Diabetes. --> endo prn # Hypertension. --> per cards # Diabetes and hypertension, treatment per primary care team. --> a1c goal <8, acchuchecks qac and qhs # Patient with history of altered mental status. --> metabolic encephalopathy # Seizure history. # Chronic neck pain. # Lactic acidsis # HLD # Obesity # Dvt ppx --> eliquis restarted (continue but only if no bleeding) Appreciate consultation and dw RN Subjective HEENT: Denies: no symptoms, eye pain, blurred vision, tearing, double vision, ear pain, ear discharge, nose pain, nose congestion, throat pain, throat swelling, mouth pain, mouth swelling, other Cardiovascular: Denies: no symptoms, chest pain, edema, irregular heart rate, lightheadedness, palpitations, syncope, other Gastrointestinal/Abdominal: Denies: no symptoms, abdomen distended, abdominal pain, black stools, tarry stools, blood in stool, constipated, diarrhea, difficulty swallowing, nausea, poor appetite, poor fluid intake, rectal bleeding , vomiting, other Genitourinary: Denies: no symptoms, burning, discharge, frequency, flank pain, hematuria, incontinence, pain, urgency, other Neurologic/Psychiatric: Denies: no symptoms, anxiety, depressed, emotional problems, headache, numbness, paresthesia, pre-existing deficit, seizure, tingling, tremors, weakness, other Endocrine: Denies: no symptoms, excessive sweating, flushing, intolerance to cold, intolerance to heat, increased hunger, increased thirst, increased urine, unexplained weight gain, unexplained weight loss, other Allergies: Coded Allergies: LISINOPRIL (Verified Allergy, Unknown, Hives, 04/12/14) Subjective 7 in general feeling better, dw team, off xarelto, for watchman by Jackie next week 04/22 s/p blood, hgb improved to 7.6, stool ob negative, room air 04/23 is back on eliquis, as per cards recs, hgb remains stable 04/24 has been feeling fatigued, no bleeding, for transfer to [facility] 04/25 pending bed at [facility], labs noted, hgb low, to transfuse 04/26 wbc is 4.4, no bleeding does have a decreased hgb 7.4 Objective Objective Current Medications Medications (Trade) Dose Ordered Sig/Debbie Route PRN Reason Start Time Stop Time Status Last Admin Dose Admin Amiodarone HCl (Cordarone) 200 mg BID ORAL 04/19/20 18:00 07/18/20 08:59 04/25/20 17:42 Bisacodyl (Dulcolax) 10 mg DAILYPRN PRN RECTAL Constipation 04/18/20 14:30 07/17/20 14:29 Dextrose (Dextrose 50%) 25 ml Q30M PRN IV Hypoglycemia 04/18/20 14:30 07/17/20 14:29 Dextrose (Dextrose 50%) 50 ml Q30M PRN IV Hypoglycemia 04/18/20 14:30 07/17/20 14:29 Diltiazem HCl (Cardizem Tab) 90 mg EVERY 6 HOURS ORAL 04/19/20 18:00 05/18/20 21:59 04/26/20 05:48 Diphenhydramine HCl (Benadryl) 25 mg Q6H PRN ORAL Itching/Pruritis 04/18/20 14:30 05/18/20 14:29 Docusate Sodium (Colace) 100 mg EVERY 12 HOURS ORAL 04/18/20 21:00 05/18/20 20:59 04/25/20 08:47 Doxazosin Mesylate (Cardura) 4 mg DAILY ORAL 04/19/20 09:00 05/19/20 08:59 04/25/20 08:48 Duloxetine HCl (Cymbalta) 60 mg BID ORAL 04/19/20 18:00 07/17/20 17:59 04/25/20 17:41 Gabapentin (Neurontin) 300 mg BEDTIME ORAL 04/18/20 21:00 05/18/20 20:59 04/25/20 20:20 Guaifenesin (Robitussin) 100 mg Q6H PRN ORAL For Cough 04/22/20 17:45 07/21/20 17:44 04/24/20 06:52 Hydralazine HCl (Apresoline) 50 mg Q6HR ORAL 04/18/20 18:00 07/17/20 17:59 04/26/20 05:47 Magnesium Hydroxide (Mom) 30 ml HSPRN PRN ORAL Constipation 04/18/20 14:30 05/18/20 14:29 04/22/20 17:00 Methocarbamol (Robaxin) 500 mg QIDPRN PRN ORAL Muscle Spasm 04/18/20 14:30 05/18/20 14:29 04/21/20 18:37 Metoprolol Tartrate (Lopressor) 25 mg Q12HR ORAL 04/22/20 21:00 07/21/20 20:59 04/25/20 20:21 Naloxone HCl (Narcan) 0.2 mg Q2M PRN IVP respiratory depression 04/20/20 14:00 07/19/20 13:59 Ondansetron HCl (Zofran) 4 mg Q6H PRN IVP Nausea & Vomiting 04/18/20 14:30 05/18/20 14:29 Oxycodone/ Acetaminophen (Percocet 10) 1 tab Q4H PRN ORAL For Pain 04/25/20 09:30 05/02/20 09:29 04/26/20 02:36 Phosphorus (Phospha 250 Neutral) 250 mg THREE TIMES A DAY ORAL 04/18/20 18:00 05/18/20 17:59 04/25/20 17:41 Polyethylene Glycol (Miralax) 17 gm DAILYPRN PRN ORAL Constipation 04/18/20 14:30 05/18/20 14:29 Potassium Chloride (K-Dur) 40 meq DAILY ORAL 04/19/20 09:00 07/18/20 08:59 04/25/20 08:48 Zolpidem Tartrate (Ambien) 5 mg HSPRN PRN ORAL Insomnia 04/20/20 16:30 04/27/20 16:29 04/25/20 20:20 Last 24 Hour Vital Signs Date Time Temp Pulse Resp B/P (MAP) Pulse Ox O2 Delivery O2 Flow Rate FiO2 04/26/20 08:00 72 04/26/20 08:00 99.9 72 18 143/70 (94) 98 04/26/20 05:48 74 128/66 04/26/20 05:47 128/66 04/26/20 04:00 98.6 74 19 128/66 (86) 96 04/26/20 04:00 71 04/26/20 00:00 69 04/26/20 00:00 99.0 71 19 124/60 (81) 96 04/25/20 23:52 72 141/71 04/25/20 23:52 141/71 04/25/20 21:00 Nasal Cannula 2.0 Nasal Cannula 2.0 04/25/20 20:21 70 149/72 04/25/20 20:00 98.7 75 19 138/68 (91) 98 04/25/20 20:00 73 04/25/20 17:42 75 147/70 04/25/20 17:42 126/60 04/25/20 16:00 74 04/25/20 16:00 98.1 75 18 126/60 (82) 97 04/25/20 12:39 75 147/70 04/25/20 12:39 147/70 04/25/20 12:00 71 04/25/20 12:00 97.9 75 20 147/70 (95) 98 04/25/20 09:00 Nasal Cannula 2.0 Nasal Cannula 2.0 04/25/20 08:48 79 139/59 04/25/20 08:00 79 04/25/20 08:00 97.5 79 18 139/59 (85) 97 04/25/20 05:10 76 148/72 04/25/20 05:10 148/72 04/25/20 04:00 70 04/25/20 04:00 98.3 76 17 148/72 (97) 97 04/25/20 00:00 82 04/25/20 00:00 98.7 81 18 155/78 (103) 99 04/24/20 23:23 81 155/78 04/24/20 23:22 155/78 04/24/20 21:00 Nasal Cannula 2.0 Nasal Cannula 2.0 04/24/20 20:44 80 155/73 04/24/20 20:00 77 04/24/20 20:00 99.4 80 18 155/73 (100) 97 04/24/20 17:40 77 120/64 04/24/20 17:40 120/64 04/24/20 16:00 97.7 68 18 120/64 (82) 96 04/24/20 16:00 76 04/24/20 12:03 127/63 04/24/20 12:01 71 127/63 04/24/20 12:00 97.5 71 20 127/63 (84) 96 04/24/20 12:00 71 04/24/20 09:00 Nasal Cannula 2.0 Nasal Cannula 2.0 Intake and Output 04/25/20 04/26/20 19:00 07:00 Intake Total 360 ml Output Total 850 ml 1000 ml Balance -490 ml -1000 ml Intake Oral 360 ml Output Urine Total 700 ml 1000 ml Stool Total 150 ml Labs Test 04/24/20 05:00 04/25/20 14:50 04/26/20 06:01 White Blood Count 4.3 K/UL (4.8-10.8) 4.4 K/UL (4.8-10.8) Red Blood Count 2.81 M/UL (4.20-5.40) 2.84 M/UL (4.20-5.40) Hemoglobin 7.5 G/DL (12.0-16.0) 7.4 G/DL (12.0-16.0) Hematocrit 24.7 % (37.0-47.0) 24.9 % (37.0-47.0) Mean Corpuscular Volume 88 FL (80-99) 88 FL (80-99) Mean Corpuscular Hemoglobin 26.6 PG (27.0-31.0) 26.1 PG (27.0-31.0) Mean Corpuscular Hemoglobin Concent 30.2 G/DL (32.0-36.0) 29.8 G/DL (32.0-36.0) Red Cell Distribution Width 16.4 % (11.6-14.8) 16.1 % (11.6-14.8) Platelet Count 338 K/UL (150-450) 305 K/UL (150-450) Mean Platelet Volume 6.1 FL (6.5-10.1) 6.5 FL (6.5-10.1) Neutrophils (%) (Auto) % (45.0-75.0) % (45.0-75.0) Lymphocytes (%) (Auto) % (20.0-45.0) % (20.0-45.0) Monocytes (%) (Auto) % (1.0-10.0) % (1.0-10.0) Eosinophils (%) (Auto) % (0.0-3.0) % (0.0-3.0) Basophils (%) (Auto) % (0.0-2.0) % (0.0-2.0) Differential Total Cells Counted 100 Neutrophils % (Manual) 66 % (45-75) Lymphocytes % (Manual) 27 % (20-45) Monocytes % (Manual) 6 % (1-10) Eosinophils % (Manual) 1 % (0-3) Basophils % (Manual) 0 % (0-2) Band Neutrophils 0 % (0-8) Platelet Estimate Adequate Platelet Morphology Normal Hypochromasia 1+ Anisocytosis 1+ Sodium Level 144 MMOL/L (136-145) 144 MMOL/L (136-145) 146 MMOL/L (136-145) Potassium Level 3.5 MMOL/L (3.5-5.1) 3.9 MMOL/L (3.5-5.1) 3.6 MMOL/L (3.5-5.1) Chloride Level 107 MMOL/L (98-107) 107 MMOL/L (98-107) 110 MMOL/L (98-107) Carbon Dioxide Level 29 MMOL/L (21-32) 32 MMOL/L (21-32) 30 MMOL/L (21-32) Anion Gap 8 mmol/L (5-15) 6 mmol/L (5-15) 7 mmol/L (5-15) Blood Urea Nitrogen 14 mg/dL (7-18) 18 mg/dL (7-18) 22 mg/dL (7-18) Creatinine 1.5 MG/DL (0.55-1.30) 1.7 MG/DL (0.55-1.30) 1.7 MG/DL (0.55-1.30) Estimat Glomerular Filtration Rate 42.1 mL/min (>60) 36.4 mL/min (>60) 36.4 mL/min (>60) Glucose Level 95 MG/DL (74-106) 117 MG/DL (74-106) 102 MG/DL (74-106) Calcium Level 8.7 MG/DL (8.5-10.1) 9.1 MG/DL (8.5-10.1) 8.8 MG/DL (8.5-10.1) Phosphorus Level 4.3 MG/DL (2.5-4.9) 4.7 MG/DL (2.5-4.9) Magnesium Level 1.8 MG/DL (1.8-2.4) 1.9 MG/DL (1.8-2.4) Pro-B-Type Natriuretic Peptide 2232 pg/mL (0-125) Total Bilirubin 0.2 MG/DL (0.2-1.0) Aspartate Amino Transf (AST/SGOT) 18 U/L (15-37) Alanine Aminotransferase (ALT/SGPT) 6 U/L (12-78) Alkaline Phosphatase 133 U/L (46-116) Total Protein 6.4 G/DL (6.4-8.2) Albumin 1.8 G/DL (3.4-5.0) Globulin 4.6 g/dL Albumin/Globulin Ratio 0.4 (1.0-2.7) Height (Feet): 5 Height (Inches): 10.00 Weight (Pounds): 200 Objective Physical Exam Sp02 EP Interpretation: reviewed, normal General: Patient appears chronically ill Head: normocephalic, atraumatic Respiratory: , crackles - both lower lobes Cardiovascular: tachycardia Gastrointestinal: non tender, soft Musculoskeletal: other - Patient appears chronically debilitated both lower extremities are extended Neurologic: other - Some verbal response, but chronic disability Skin: no rash : abhishek+ Virgil Wray MD Apr 26, 2020 08:32
--- NOTE | 2020-04-26 08:57 | NUR ---
Transfer update: CM spoke to [facility] from [facility] Currently no beds at this time and very tight with beds per [facility] Transfer center has CM + nurses station phone number when bed is available CM will call back at noon CM ask if procedure may be done as outpatient, but at this time no per cardio Dr. Dean ~[facility] T:[phone]
--- NOTE | 2020-04-26 09:52 | General Progress Note ---
Assessment/Plan Assessment/Plan: (1) lumbar degenerative disease (2) lumbar spondylosis (3) multiple joint pain and osteoarthritis (4) sacral decubitus ulcer Patient to be continued on Percocet as needed. D/w Dr. Dumont and he concurred. Subjective Date patient seen: Apr 26, 2020 Time patient seen: 09:30 - am Allergies: Coded Allergies: LISINOPRIL (Verified Allergy, Unknown, Hives, 04/12/14) Subjective REVIEW OF SYSTEMS: Denies rash, fever, chills, sweating, dizziness, drowsiness, blurred vision, sore throat, change in her weight. No shortness of breath, chest pain, palpitations, or cough. No nausea, vomiting, diarrhea, blood in stool or urine. No dysuria. SUBJECTIVE: Patient reports no changes to her pain which has been tolerated on the Percocet. She has no new complaints at this time Objective Last 24 Hour Vital Signs Date Time Temp Pulse Resp B/P (MAP) Pulse Ox O2 Delivery O2 Flow Rate FiO2 04/26/20 08:31 72 143/70 04/26/20 08:00 72 04/26/20 08:00 99.9 72 18 143/70 (94) 98 04/26/20 05:48 74 128/66 04/26/20 05:47 128/66 04/26/20 04:00 98.6 74 19 128/66 (86) 96 04/26/20 04:00 71 04/26/20 00:00 69 04/26/20 00:00 99.0 71 19 124/60 (81) 96 04/25/20 23:52 72 141/71 04/25/20 23:52 141/71 04/25/20 21:00 Nasal Cannula 2.0 Nasal Cannula 2.0 04/25/20 20:21 70 149/72 04/25/20 20:00 98.7 75 19 138/68 (91) 98 04/25/20 20:00 73 04/25/20 17:42 75 147/70 04/25/20 17:42 126/60 04/25/20 16:00 74 04/25/20 16:00 98.1 75 18 126/60 (82) 97 04/25/20 12:39 75 147/70 04/25/20 12:39 147/70 04/25/20 12:00 71 04/25/20 12:00 97.9 75 20 147/70 (95) 98 Intake and Output 04/25/20 04/26/20 19:00 07:00 Intake Total 360 ml Output Total 850 ml 1000 ml Balance -490 ml -1000 ml Intake Oral 360 ml Output Urine Total 700 ml 1000 ml Stool Total 150 ml Laboratory Tests 04/25/20 14:50: Sodium Level 144, Potassium Level 3.9, Chloride Level 107, Carbon Dioxide Level 32, Anion Gap 6, Blood Urea Nitrogen 18, Creatinine 1.7H, Estimat Glomerular Filtration Rate 36.4, Glucose Level 117H, Calcium Level 9.1, Phosphorus Level 4.7, Magnesium Level 1.9 04/26/20 06:01: Sodium Level 146H, Potassium Level 3.6, Chloride Level 110H, Carbon Dioxide Level 30, Anion Gap 7, Blood Urea Nitrogen 22H, Creatinine 1.7H, Estimat Glomerular Filtration Rate 36.4, Glucose Level 102, Calcium Level 8.8, White Blood Count 4.4L, Red Blood Count 2.84L, Hemoglobin 7.4L, Hematocrit 24.9L, Mean Corpuscular Volume 88, Mean Corpuscular Hemoglobin 26.1L, Mean Corpuscular Hemoglobin Concent 29.8L, Red Cell Distribution Width 16.1H, Platelet Count 305 , Mean Platelet Volume 6.5, Neutrophils (%) (Auto) , Lymphocytes (%) (Auto) , Monocytes (%) (Auto) , Eosinophils (%) (Auto) , Basophils (%) (Auto) , Neutrophils % (Manual) [Pending], Lymphocytes % (Manual) [Pending], Platelet Estimate [Pending], Platelet Morphology [Pending], Total Bilirubin 0.2, Aspartate Amino Transf (AST/SGOT) 18, Alanine Aminotransferase (ALT/SGPT) 6L, Alkaline Phosphatase 133H, Total Protein 6.4, Albumin 1.8L, Globulin 4.6, Albumin/Globulin Ratio 0.4L 04/26/20 09:00: Prothrombin Time [Pending], Prothromb Time International Ratio [Pending] Height (Feet): 5 Height (Inches): 10.00 Weight (Pounds): 200 Objective GENERAL: Alert, awake, and oriented. LUNGS: Decreased breath sounds bilaterally. HEART: S1 and S2 regular. ABDOMEN: Ostomy noted. EXTREMITIES: No cyanosis. No clubbing. NEURO: No changes. Joby Yoon Apr 26, 2020 09:52
--- NOTE | 2020-04-26 10:11 | Nephrology Progress Note ---
Assessment/Plan Plan #Afib with RVR #HTN #Hypokalemia #Hypomagnesemia #Left Plueral Effusion #Hx Sepsis, HCAP/UTI, + ESBL #Chronic Pain #Iron Deficiency Anemia #Seizure vs prolonged period of immobility #S/P Acute metabolic Encephalopathy #Hx of Colectomy w/ Colostomy - tele - rate control per cardiology - resume AC- on apixaban - hold lasix - D5W 250x1 - transfer to [facility] for ablation - replete lytes - monitor h -s/p EGD/colon on 04/16 showing gastritis, ulcers near ostomy bag likely ischemic , biopsies obtained, follow-up pathology -ctm Hgb, transfuse for hgb <7 -cont home meds -wound care - monitor renal function Time spent 45 min - greater than 50% on care coordination and counseling Subjective ROS Limited/Unobtainable: No Constitutional: Reports: malaise, weakness HEENT: Denies: no symptoms, eye pain, blurred vision, tearing, double vision, ear pain, ear discharge, nose pain, nose congestion, throat pain, throat swelling, mouth pain, mouth swelling, other Genitourinary: Denies: no symptoms, burning, discharge, frequency, flank pain, hematuria, incontinence, pain, urgency, other Neurologic/Psychiatric: Denies: no symptoms, anxiety, depressed, emotional problems, headache, numbness, paresthesia, pre-existing deficit, seizure, tingling, tremors, weakness, other Subjective plan to transfer to [facility] for ablation Cr uptrending - will hold lasix sodium 146 will give D5W 250 x1 no chest pain no SOB hemoglobin improved s/p transfusion started on AC Objective Objective Last 24 Hour Vital Signs Date Time Temp Pulse Resp B/P (MAP) Pulse Ox O2 Delivery O2 Flow Rate FiO2 04/26/20 09:00 Nasal Cannula 2.0 Nasal Cannula 2.0 04/26/20 08:31 72 143/70 04/26/20 08:00 72 04/26/20 08:00 99.9 72 18 143/70 (94) 98 04/26/20 05:48 74 128/66 04/26/20 05:47 128/66 04/26/20 04:00 98.6 74 19 128/66 (86) 96 04/26/20 04:00 71 7/9/20 00:00 69 04/26/20 00:00 99.0 71 19 124/60 (81) 96 04/25/20 23:52 72 141/71 04/25/20 23:52 141/71 04/25/20 21:00 Nasal Cannula 2.0 Nasal Cannula 2.0 04/25/20 20:21 70 149/72 04/25/20 20:00 98.7 75 19 138/68 (91) 98 04/25/20 20:00 73 04/25/20 17:42 75 147/70 04/25/20 17:42 126/60 04/25/20 16:00 74 04/25/20 16:00 98.1 75 18 126/60 (82) 97 04/25/20 12:39 75 147/70 04/25/20 12:39 147/70 04/25/20 12:00 71 04/25/20 12:00 97.9 75 20 147/70 (95) 98 Intake and Output 04/25/20 04/26/20 19:00 07:00 Intake Total 360 ml Output Total 850 ml 1000 ml Balance -490 ml -1000 ml Intake Oral 360 ml Output Urine Total 700 ml 1000 ml Stool Total 150 ml Laboratory Tests 04/25/20 14:50: Sodium Level 144, Potassium Level 3.9, Chloride Level 107, Carbon Dioxide Level 32, Anion Gap 6, Blood Urea Nitrogen 18, Creatinine 1.7H, Estimat Glomerular Filtration Rate 36.4, Glucose Level 117H, Calcium Level 9.1, Phosphorus Level 4.7, Magnesium Level 1.9 04/26/20 06:01: Sodium Level 146H, Potassium Level 3.6, Chloride Level 110H, Carbon Dioxide Level 30, Anion Gap 7, Blood Urea Nitrogen 22H, Creatinine 1.7H, Estimat Glomerular Filtration Rate 36.4, Glucose Level 102, Calcium Level 8.8, White Blood Count 4.4L, Red Blood Count 2.84L, Hemoglobin 7.4L, Hematocrit 24.9L, Mean Corpuscular Volume 88, Mean Corpuscular Hemoglobin 26.1L, Mean Corpuscular Hemoglobin Concent 29.8L, Red Cell Distribution Width 16.1H, Platelet Count 305 , Mean Platelet Volume 6.5, Neutrophils (%) (Auto) , Lymphocytes (%) (Auto) , Monocytes (%) (Auto) , Eosinophils (%) (Auto) , Basophils (%) (Auto) , Neutrophils % (Manual) [Pending], Lymphocytes % (Manual) [Pending], Platelet Estimate [Pending], Platelet Morphology [Pending], Total Bilirubin 0.2, Aspartate Amino Transf (AST/SGOT) 18, Alanine Aminotransferase (ALT/SGPT) 6L, Alkaline Phosphatase 133H, Total Protein 6.4, Albumin 1.8L, Globulin 4.6, Albumin/Globulin Ratio 0.4L 04/26/20 09:00: Prothrombin Time [Pending], Prothromb Time International Ratio [Pending] Height (Feet): 5 Height (Inches): 10.00 Weight (Pounds): 200 Venkat Montes M.D. Apr 26, 2020 10:11
[2020-04-26] MEDS ORDERED: D5W 250 ML IVPB ONE (10:15)
--- NOTE | 2020-04-26 10:57 | Pulmonology Progress Note ---
Subjective ROS Limited/Unobtainable: No Interval Events: None new Constitutional: Reports: fever, fatigue HEENT: Repors: no symptoms Respiratory: Reports: no symptoms Cardiovascular: Reports: no symptoms Gastrointestinal/Abdominal: Denies: nausea, vomiting, diarrhea Genitourinary: Reports: no symptoms Psychiatric: Denies: depression Skin: Denies: rash Musculoskeletal: Denies: pain Allergies: Coded Allergies: LISINOPRIL (Verified Allergy, Unknown, Hives, 04/12/14) All Systems: reviewed and negative except above Objective Last 24 Hour Vital Signs Date Time Temp Pulse Resp B/P (MAP) Pulse Ox O2 Delivery O2 Flow Rate FiO2 04/26/20 09:00 Nasal Cannula 2.0 Nasal Cannula 2.0 04/26/20 08:31 72 143/70 04/26/20 08:00 72 04/26/20 08:00 99.9 72 18 143/70 (94) 98 04/26/20 05:48 74 128/66 04/26/20 05:47 128/66 04/26/20 04:00 98.6 74 19 128/66 (86) 96 04/26/20 04:00 71 04/26/20 00:00 69 04/26/20 00:00 99.0 71 19 124/60 (81) 96 04/25/20 23:52 72 141/71 04/25/20 23:52 141/71 04/25/20 21:00 Nasal Cannula 2.0 Nasal Cannula 2.0 04/25/20 20:21 70 149/72 04/25/20 20:00 98.7 75 19 138/68 (91) 98 04/25/20 20:00 73 04/25/20 17:42 75 147/70 04/25/20 17:42 126/60 04/25/20 16:00 74 04/25/20 16:00 98.1 75 18 126/60 (82) 97 04/25/20 12:39 75 147/70 04/25/20 12:39 147/70 04/25/20 12:00 71 04/25/20 12:00 97.9 75 20 147/70 (95) 98 Intake and Output 04/25/20 04/26/20 19:00 07:00 Intake Total 360 ml Output Total 850 ml 1000 ml Balance -490 ml -1000 ml Intake Oral 360 ml Output Urine Total 700 ml 1000 ml Stool Total 150 ml General Appearance: no acute distress HEENT: normocephalic Respiratory: chest wall non-tender Cardiovascular: normal peripheral pulses Abdomen: normal bowel sounds Laboratory Tests 04/25/20 14:50: Sodium Level 144, Potassium Level 3.9, Chloride Level 107, Carbon Dioxide Level 32, Anion Gap 6, Blood Urea Nitrogen 18, Creatinine 1.7H, Estimat Glomerular Filtration Rate 36.4, Glucose Level 117H, Calcium Level 9.1, Phosphorus Level 4.7, Magnesium Level 1.9 04/26/20 06:01: Sodium Level 146H, Potassium Level 3.6, Chloride Level 110H, Carbon Dioxide Level 30, Anion Gap 7, Blood Urea Nitrogen 22H, Creatinine 1.7H, Estimat Glomerular Filtration Rate 36.4, Glucose Level 102, Calcium Level 8.8, White Blood Count 4.4L, Red Blood Count 2.84L, Hemoglobin 7.4L, Hematocrit 24.9L, Mean Corpuscular Volume 88, Mean Corpuscular Hemoglobin 26.1L, Mean Corpuscular Hemoglobin Concent 29.8L, Red Cell Distribution Width 16.1H, Platelet Count 305 , Mean Platelet Volume 6.5, Neutrophils (%) (Auto) , Lymphocytes (%) (Auto) , Monocytes (%) (Auto) , Eosinophils (%) (Auto) , Basophils (%) (Auto) , Differential Total Cells Counted 100, Neutrophils % (Manual) 69, Lymphocytes % ( Manual) 18L, Monocytes % (Manual) 11H, Eosinophils % (Manual) 2, Basophils % ( Manual) 0, Band Neutrophils 0, Platelet Estimate Adequate, Platelet Morphology Normal, Hypochromasia 3+, Anisocytosis 1+, Total Bilirubin 0.2, Aspartate Amino Transf (AST/SGOT) 18, Alanine Aminotransferase (ALT/SGPT) 6L, Alkaline Phosphatase 133H, Total Protein 6.4, Albumin 1.8L, Globulin 4.6, Albumin/ Globulin Ratio 0.4L 04/26/20 09:00: Prothrombin Time 10.9, Prothromb Time International Ratio 1.0 Current Medications Medications (Trade) Dose Ordered Sig/Debbie Route PRN Reason Start Time Stop Time Status Last Admin Dose Admin Amiodarone HCl (Cordarone) 200 mg BID ORAL 04/19/20 18:00 07/18/20 08:59 04/26/20 08:33 Bisacodyl (Dulcolax) 10 mg DAILYPRN PRN RECTAL Constipation 04/18/20 14:30 07/17/20 14:29 Dextrose 250 ml @ 250 mls/hr ONCE ONCE IVPB 04/26/20 10:15 04/26/20 11:14 Dextrose (Dextrose 50%) 25 ml Q30M PRN IV Hypoglycemia 04/18/20 14:30 07/17/20 14:29 Dextrose (Dextrose 50%) 50 ml Q30M PRN IV Hypoglycemia 04/18/20 14:30 07/17/20 14:29 Diltiazem HCl (Cardizem Tab) 90 mg EVERY 6 HOURS ORAL 04/19/20 18:00 05/18/20 21:59 04/26/20 05:48 Diphenhydramine HCl (Benadryl) 25 mg Q6H PRN ORAL Itching/Pruritis 04/18/20 14:30 05/18/20 14:29 Docusate Sodium (Colace) 100 mg EVERY 12 HOURS ORAL 04/18/20 21:00 05/18/20 20:59 04/26/20 08:33 Doxazosin Mesylate (Cardura) 4 mg DAILY ORAL 04/19/20 09:00 05/19/20 08:59 04/26/20 08:31 Duloxetine HCl (Cymbalta) 60 mg BID ORAL 04/19/20 18:00 07/17/20 17:59 04/26/20 08:31 Gabapentin (Neurontin) 300 mg BEDTIME ORAL 04/18/20 21:00 05/18/20 20:59 04/25/20 20:20 Guaifenesin (Robitussin) 100 mg Q6H PRN ORAL For Cough 04/22/20 17:45 07/21/20 17:44 04/24/20 06:52 Hydralazine HCl (Apresoline) 50 mg Q6HR ORAL 04/18/20 18:00 07/17/20 17:59 04/26/20 05:47 Magnesium Hydroxide (Mom) 30 ml HSPRN PRN ORAL Constipation 04/18/20 14:30 05/18/20 14:29 04/22/20 17:00 Methocarbamol (Robaxin) 500 mg QIDPRN PRN ORAL Muscle Spasm 04/18/20 14:30 05/18/20 14:29 04/21/20 18:37 Metoprolol Tartrate (Lopressor) 25 mg Q12HR ORAL 04/22/20 21:00 07/21/20 20:59 04/26/20 08:31 Naloxone HCl (Narcan) 0.2 mg Q2M PRN IVP respiratory depression 04/20/20 14:00 07/19/20 13:59 Ondansetron HCl (Zofran) 4 mg Q6H PRN IVP Nausea & Vomiting 04/18/20 14:30 05/18/20 14:29 Oxycodone/ Acetaminophen (Percocet 10/325) 1 tab Q4H PRN ORAL For Pain 04/25/20 09:30 05/02/20 09:29 04/26/20 08:31 Phosphorus (Phospha 250 Neutral) 250 mg THREE TIMES A DAY ORAL 04/18/20 18:00 05/18/20 17:59 04/26/20 08:31 Polyethylene Glycol (Miralax) 17 gm DAILYPRN PRN ORAL Constipation 04/18/20 14:30 05/18/20 14:29 Potassium Chloride (K-Dur) 40 meq DAILY ORAL 04/19/20 09:00 07/18/20 08:59 04/26/20 08:32 Zolpidem Tartrate (Ambien) 5 mg HSPRN PRN ORAL Insomnia 04/20/20 16:30 04/27/20 16:29 04/25/20 20:20 Assessment/Plan Assessment/Plan IMPRESSION: 1. Small left pleural effusion. 2. Bibasilar infiltrates. 3. History of chronic pain. 4. Atrial fibrillation. 5. [facility] resident. DISCUSSION: Continue medications Continue oxygen and pulmonary hygiene. No new recommendations Seven Yao Omar Syed MD Apr 26, 2020 10:57
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
[2020-04-26 12:00] VITALS: BP 129/61
--- NOTE | 2020-04-26 13:19 | NUR ---
DISCHARGE PLANNED PATIENT ACCEPTED TO [facility] T: [phone]~ PLEASE CALL FOR REPORT ROOM#[id number] [facility] FOR 3PM
--- NOTE | 2020-04-26 13:34 | NUR ---
RADIOLOGY DEPT., PT WANTED TO SPEAK WITH PHYSICIAN (S) CONCERNING MULTIPLE CHEST X-RAY IMAGING. PT DECLINED IMAGING EXAM THIS MORNING.APRIL
--- NOTE | 2020-04-26 13:37 | General Progress Note ---
Assessment/Plan Problem List: (1) Atrial flutter ICD Codes: I48.92 - Unspecified atrial flutter SNOMED: 4066195 (2) VENTURA (acute kidney injury) ICD Codes: N17.9 - Acute kidney failure, unspecified SNOMED: 0708844, 92222979 (3) Sacral decubitus ulcer ICD Codes: L89.159 - Pressure ulcer of sacral region, unspecified stage SNOMED: 031004308 (4) Colostomy in place ICD Codes: Z93.3 - Colostomy status SNOMED: 244112844, 335819886 (5) Hypertension ICD Codes: I10 - Essential (primary) hypertension SNOMED: 21622790 Status: doing well, stable Assessment/Plan: Patient being transferred to [facility] today for ablation. Held up yesterday because there was no bed. Please see DC summary for full recommendations. I spent 25 mins on this encounter w 15 min on care/coordination and pt counseling. D/w RN, consulting MDs Subjective Constitutional: Reports: no symptoms HEENT: Reports: no symptoms Cardiovascular: Reports: no symptoms Respiratory: Reports: no symptoms Gastrointestinal/Abdominal: Reports: no symptoms Genitourinary: Reports: no symptoms Neurologic/Psychiatric: Reports: no symptoms Endocrine: Reports: no symptoms Hematologic/Lymphatic: Reports: no symptoms Allergies: Coded Allergies: LISINOPRIL (Verified Allergy, Unknown, Hives, 04/12/14) All Systems: reviewed and negative except above Subjective Being transferred to [facility] today and she is excited. Objective Last 24 Hour Vital Signs Date Time Temp Pulse Resp B/P (MAP) Pulse Ox O2 Delivery O2 Flow Rate FiO2 04/26/20 12:00 98.4 83 18 129/61 (83) 100 04/26/20 11:19 83 129/61 04/26/20 11:19 129/61 04/26/20 09:00 Nasal Cannula 2.0 Nasal Cannula 2.0 04/26/20 08:31 72 143/70 04/26/20 08:00 72 04/26/20 08:00 99.9 72 18 143/70 (94) 98 04/26/20 05:48 74 128/66 04/26/20 05:47 128/66 04/26/20 04:00 98.6 74 19 128/66 (86) 96 04/26/20 04:00 71 04/26/20 00:00 69 04/26/20 00:00 99.0 71 19 124/60 (81) 96 04/25/20 23:52 72 141/71 04/25/20 23:52 141/71 04/25/20 21:00 Nasal Cannula 2.0 Nasal Cannula 2.0 04/25/20 20:21 70 149/72 04/25/20 20:00 98.7 75 19 138/68 (91) 98 04/25/20 20:00 73 04/25/20 17:42 75 147/70 04/25/20 17:42 126/60 04/25/20 16:00 74 04/25/20 16:00 98.1 75 18 126/60 (82) 97 Intake and Output 04/25/20 04/26/20 19:00 07:00 Intake Total 360 ml Output Total 850 ml 1000 ml Balance -490 ml -1000 ml Intake Oral 360 ml Output Urine Total 700 ml 1000 ml Stool Total 150 ml Laboratory Tests 04/25/20 14:50: Sodium Level 144, Potassium Level 3.9, Chloride Level 107, Carbon Dioxide Level 32, Anion Gap 6, Blood Urea Nitrogen 18, Creatinine 1.7H, Estimat Glomerular Filtration Rate 36.4, Glucose Level 117H, Calcium Level 9.1, Phosphorus Level 4.7, Magnesium Level 1.9 04/26/20 06:01: Sodium Level 146H, Potassium Level 3.6, Chloride Level 110H, Carbon Dioxide Level 30, Anion Gap 7, Blood Urea Nitrogen 22H, Creatinine 1.7H, Estimat Glomerular Filtration Rate 36.4, Glucose Level 102, Calcium Level 8.8, White Blood Count 4.4L, Red Blood Count 2.84L, Hemoglobin 7.4L, Hematocrit 24.9L, Mean Corpuscular Volume 88, Mean Corpuscular Hemoglobin 26.1L, Mean Corpuscular Hemoglobin Concent 29.8L, Red Cell Distribution Width 16.1H, Platelet Count 305 , Mean Platelet Volume 6.5, Neutrophils (%) (Auto) , Lymphocytes (%) (Auto) , Monocytes (%) (Auto) , Eosinophils (%) (Auto) , Basophils (%) (Auto) , Differential Total Cells Counted 100, Neutrophils % (Manual) 69, Lymphocytes % ( Manual) 18L, Monocytes % (Manual) 11H, Eosinophils % (Manual) 2, Basophils % ( Manual) 0, Band Neutrophils 0, Platelet Estimate Adequate, Platelet Morphology Normal, Hypochromasia 3+, Anisocytosis 1+, Total Bilirubin 0.2, Aspartate Amino Transf (AST/SGOT) 18, Alanine Aminotransferase (ALT/SGPT) 6L, Alkaline Phosphatase 133H, Total Protein 6.4, Albumin 1.8L, Globulin 4.6, Albumin/ Globulin Ratio 0.4L 04/26/20 09:00: Prothrombin Time 10.9, Prothromb Time International Ratio 1.0 Height (Feet): 5 Height (Inches): 10.00 Weight (Pounds): 200 General Appearance: no apparent distress, alert, lethargic EENT: PERRL/EOMI Neck: non-tender, normal alignment, normal inspection Cardiovascular: normal rate, no gallop/murmur, no JVD, irregularly irregular Respiratory/Chest: chest wall non-tender, lungs clear, normal breath sounds, no respiratory distress Abdomen: normal bowel sounds, non tender, soft Pelvis: normal external exam Extremities: non-tender, normal inspection Edema: 1+ Leg (L), 1+ Leg (R) Edema: trace edema Neurologic: dental detail representative II-XII grossly normal, no motor/sensory deficits, alert, oriented x 3, responsive, normal mood/affect Skin: normal pigmentation, warm/dry Heriberto Urias M.D. Apr 26, 2020 13:37
--- NOTE | 2020-04-26 13:52 | Surgery Progress Note ---
Surgery Progress Note Subjective Symptoms: improved, tolerating diet, voiding well, passing flatus, BM, pain decreased Objective Last 24 Hour Vital Signs Date Time Temp Pulse Resp B/P (MAP) Pulse Ox O2 Delivery O2 Flow Rate FiO2 04/26/20 12:00 98.4 83 18 129/61 (83) 100 04/26/20 11:19 83 129/61 04/26/20 11:19 129/61 04/26/20 09:00 Nasal Cannula 2.0 Nasal Cannula 2.0 04/26/20 08:31 72 143/70 04/26/20 08:00 72 04/26/20 08:00 99.9 72 18 143/70 (94) 98 04/26/20 05:48 74 128/66 04/26/20 05:47 128/66 04/26/20 04:00 98.6 74 19 128/66 (86) 96 04/26/20 04:00 71 04/26/20 00:00 69 04/26/20 00:00 99.0 71 19 124/60 (81) 96 04/25/20 23:52 72 141/71 04/25/20 23:52 141/71 04/25/20 21:00 Nasal Cannula 2.0 Nasal Cannula 2.0 04/25/20 20:21 70 149/72 04/25/20 20:00 98.7 75 19 138/68 (91) 98 04/25/20 20:00 73 04/25/20 17:42 75 147/70 04/25/20 17:42 126/60 04/25/20 16:00 74 04/25/20 16:00 98.1 75 18 126/60 (82) 97 I&O Intake and Output 04/25/20 04/26/20 19:00 07:00 Intake Total 360 ml Output Total 850 ml 1000 ml Balance -490 ml -1000 ml Intake Oral 360 ml Output Urine Total 700 ml 1000 ml Stool Total 150 ml Dressing: saturated Wound: clean Cardiovascular: RSR Respiratory: clear Abdomen: soft, non-tender, present bowel sounds Extremities: no edema, no tenderness, no cyanosis Laboratory Tests Test 04/25/20 14:50 04/26/20 06:01 04/26/20 09:00 Sodium Level 144 MMOL/L (136-145) 146 MMOL/L (136-145) H Potassium Level 3.9 MMOL/L (3.5-5.1) 3.6 MMOL/L (3.5-5.1) Chloride Level 107 MMOL/L (98-107) 110 MMOL/L (98-107) H Carbon Dioxide Level 32 MMOL/L (21-32) 30 MMOL/L (21-32) Anion Gap 6 mmol/L (5-15) 7 mmol/L (5-15) Blood Urea Nitrogen 18 mg/dL (7-18) 22 mg/dL (7-18) H Creatinine 1.7 MG/DL (0.55-1.30) H 1.7 MG/DL (0.55-1.30) H Estimat Glomerular Filtration Rate 36.4 mL/min (>60) 36.4 mL/min (>60) Glucose Level 117 MG/DL (74-106) H 102 MG/DL (74-106) Calcium Level 9.1 MG/DL (8.5-10.1) 8.8 MG/DL (8.5-10.1) Phosphorus Level 4.7 MG/DL (2.5-4.9) Magnesium Level 1.9 MG/DL (1.8-2.4) White Blood Count 4.4 K/UL (4.8-10.8) L Red Blood Count 2.84 M/UL (4.20-5.40) L Hemoglobin 7.4 G/DL (12.0-16.0) L Hematocrit 24.9 % (37.0-47.0) L Mean Corpuscular Volume 88 FL (80-99) Mean Corpuscular Hemoglobin 26.1 PG (27.0-31.0) L Mean Corpuscular Hemoglobin Concent 29.8 G/DL (32.0-36.0) L Red Cell Distribution Width 16.1 % (11.6-14.8) H Platelet Count 305 K/UL (150-450) Mean Platelet Volume 6.5 FL (6.5-10.1) Neutrophils (%) (Auto) % (45.0-75.0) Lymphocytes (%) (Auto) % (20.0-45.0) Monocytes (%) (Auto) % (1.0-10.0) Eosinophils (%) (Auto) % (0.0-3.0) Basophils (%) (Auto) % (0.0-2.0) Differential Total Cells Counted 100 Neutrophils % (Manual) 69 % (45-75) Lymphocytes % (Manual) 18 % (20-45) L Monocytes % (Manual) 11 % (1-10) H Eosinophils % (Manual) 2 % (0-3) Basophils % (Manual) 0 % (0-2) Band Neutrophils 0 % (0-8) Platelet Estimate Adequate Platelet Morphology Normal Hypochromasia 3+ Anisocytosis 1+ Total Bilirubin 0.2 MG/DL (0.2-1.0) Aspartate Amino Transf (AST/SGOT) 18 U/L (15-37) Alanine Aminotransferase (ALT/SGPT) 6 U/L (12-78) L Alkaline Phosphatase 133 U/L (46-116) H Total Protein 6.4 G/DL (6.4-8.2) Albumin 1.8 G/DL (3.4-5.0) L Globulin 4.6 g/dL Albumin/Globulin Ratio 0.4 (1.0-2.7) L Prothrombin Time 10.9 SEC (9.30-11.50) Prothromb Time International Ratio 1.0 (0.9-1.1) Plan Problems: (1) Atrial flutter Assessment & Plan: Assessment/Plan: (1) Atrial flutter as per cardiology pending transfer for ablation at [facility] (2) Hypertension (3) Acute encephalopathy (4) VENTURA (acute kidney injury) (5) Acute and chronic respiratory failure with hypoxia (6) Abscess (7) Fistula (8) Sciatica neuralgia (9) Uncontrolled seizures (10) Forgetfulness (11) Sacral decubitus ulcer Assessment & Plan: Patient identified to have a sacral deep tissue injury upon admission air mattress prior and will order while in admission Care plan initiated Pt presented on admission with Obesity and multiple Pressure injuries. Unstageable Pressure Injury Sacrum. (L)4.5cm x (W)3.5cm. Base of wound is 10% necrotic,90% slough.Surrounding dry, pink epithelial,bordered by dry black and peeling skin.Pt stated sacral area is tender when she is supine. Resolving Pressure injury L Ischium . Elongated area that is a reabsorbed DTPI. Striated areas of pink epithelial within base of Pressure injury. Pt denied tenderness when palpated. Unstageable Pressure injury R Buttocks.(L)3.5cm x (W)2.5cm. Base of wound is 100 % slough. Edges are adherent to base of wound. Darker skin tone without induration periwound.No odor or exudate noted. Reabsorbed DPI R Ischium. Dry, black and peeling skin noted .Pt denied any tenderness when palpated.Bilat lower ext are edematous. Haemosiderin noted to L lower ext. Pt stated distal aspects of both lower ext are painful but stated more painful on RLE. DTPI noted to medial R heel. Intact blood filled blister noted(L)3.5cm x (W) 3cm. Periwound is blanchable but fluctuant. Pt complained of tenderness when minimally palpated R heel is boggy but blanchable. Denied tenderness when minimally palpated. Tx.Plan:Cleanse Wounds Sacrum and R Buttocks. Apply TheraHoney to wounds. Apply Moisture Barrier Paste Periwound Cover with Optifoam drsg. Change Daily and prn. Apply Moisture Barrier Paste to R and L Ischial Tuberosities with each Incontinence care. Apply Cavilon To both heels. Cover each Heel and Malleoli with Optifoam drsg. Change every 7 days and prn. Reposition at least every 2hours or as tolerated. Elevate both lower ext. with both heels off-loaded. APM/MAREN Mattress overlay. (12) Chronic back pain (13) Overdose of opiate or related narcotic (14) Cellulitis of left leg (15) Pericolonic abscess due to diverticulitis (16) Ventral incisional hernia Assessment & Plan: History of colon resection colostomy Ventral incisional hernia reducible No acute invention monitor parastomal hernia stable ostomy viable and functional no acute intervention planned unlikely etiology of pain (17) Chronic pain of both knees (18) Dehydration (19) Hyperkalemia (20) Sepsis Assessment & Plan: Patient reports not liking current diet texture of Moist Puree with Thin Liquids. Patient completed PO intake of solids (crackers), Patient's swallow is grossly functional. Plan: 1. Upgrade Diet Texture to Soft Solids and continue Thin Liquids; type/ supplements per RD. 2. Nursing to assist Patient with oral care BID. DAILY ESTIMATED NEEDS: Needs based on Pulmonary, sepsis, wound, VENTURA 75.8kg adj 20-30 kcals/kg 9109-5746 total kcals 1.25-1.5 g protein/kg 94-114 g total protein 25-30 mL/kg 0289-4878 total fluid mLs NUTRITION DIAGNOSIS: Swallowing difficulty r/t respiratory status as evidenced by pt orally intubated, on NGT feeds-> now extubated, pending [employer] eval. PO DIET RECOMMENDATIONS-->>> Cardiac diet / texture per [employer] ENTERAL NUTRITION RECOMMENDATIONS: VITAL AF 1.2 @55ml/hr x24 hrs to provide 1320ml, 1584 kcal, 99g pro, 1071ml free H2O - Maintain at goal as tolerated if not cleared for oral diet by [employer] - Flush per MD/ HOB over 30 degree ADDITIONAL RECOMMENDATIONS: 1) Maintain calibrated bed scale wts (248lbs vs 217lbs last adm) 2) Monitor renal fxn and lytes closely, need for renal formula Creat wnl; lytes low (K,phos,mg) 3) Wound healing: ZnSO4 220mg QD x 10 days+ Boris BID via NGT hold vit C until renal fxn improves 4) NISS w/ TF, h/o DM 5) Monitor po intake if cleared for oral diet; need for snacks/supplements Julian Iglesias Apr 26, 2020 13:52
--- NOTE | 2020-04-26 13:58 | NUR ---
NURSE NOTES: Okay to keep Desai and PICC line per Dr. Urias.
--- NOTE | 2020-04-26 15:30 | Cardiac Electrophysiology PN ---
Assessment/Plan Assessment/Plan 1. Recurrent atrial flutter with RVR despite amiodarone 200 mg bid, Cardizem 90 mg po qid and Lopressor 25 bid Off Eliquis for ablation. Being transferred to [facility] for EPS and ablation. On Lovenox 2. Severe anemia, s/p blood transfusion. FU GI and hematology 3. Hypertension. On Cardizem, Lasix 40 mg po bid, hydralazine 50 mg qid and Lopressor 25 bid 4. Hyperlipidemia, on Lipitor. 5. Pleural effusion. 6. History of diverticulitis requiring partial colectomy and colostomy placement. 7. Ischemic colitis proximal to colostomy insertion from last admission. DW RN , Dr Zuniga and [facility] Subjective Subjective Being transferred to [facility] for flutter ablation in view of recurrent typical atrial fluter despite being on Amio, Cardizem and Lopressor Objective Last 24 Hour Vital Signs Date Time Temp Pulse Resp B/P (MAP) Pulse Ox O2 Delivery O2 Flow Rate FiO2 04/26/20 12:00 67 04/26/20 12:00 98.4 83 18 129/61 (83) 100 04/26/20 11:19 83 129/61 04/26/20 11:19 129/61 04/26/20 09:00 Nasal Cannula 2.0 Nasal Cannula 2.0 04/26/20 08:31 72 143/70 04/26/20 08:00 72 04/26/20 08:00 99.9 72 18 143/70 (94) 98 04/26/20 05:48 74 128/66 04/26/20 05:47 128/66 04/26/20 04:00 98.6 74 19 128/66 (86) 96 04/26/20 04:00 71 04/26/20 00:00 69 04/26/20 00:00 99.0 71 19 124/60 (81) 96 04/25/20 23:52 72 141/71 04/25/20 23:52 141/71 04/25/20 21:00 Nasal Cannula 2.0 Nasal Cannula 2.0 04/25/20 20:21 70 149/72 04/25/20 20:00 98.7 75 19 138/68 (91) 98 04/25/20 20:00 73 04/25/20 17:42 75 147/70 04/25/20 17:42 126/60 04/25/20 16:00 74 04/25/20 16:00 98.1 75 18 126/60 (82) 97 Intake and Output 04/25/20 04/26/20 19:00 07:00 Intake Total 360 ml Output Total 850 ml 1000 ml Balance -490 ml -1000 ml Intake Oral 360 ml Output Urine Total 700 ml 1000 ml Stool Total 150 ml Laboratory Tests Test 04/26/20 06:01 04/26/20 09:00 White Blood Count 4.4 K/UL (4.8-10.8) L Red Blood Count 2.84 M/UL (4.20-5.40) L Hemoglobin 7.4 G/DL (12.0-16.0) L Hematocrit 24.9 % (37.0-47.0) L Mean Corpuscular Volume 88 FL (80-99) Mean Corpuscular Hemoglobin 26.1 PG (27.0-31.0) L Mean Corpuscular Hemoglobin Concent 29.8 G/DL (32.0-36.0) L Red Cell Distribution Width 16.1 % (11.6-14.8) H Platelet Count 305 K/UL (150-450) Mean Platelet Volume 6.5 FL (6.5-10.1) Neutrophils (%) (Auto) % (45.0-75.0) Lymphocytes (%) (Auto) % (20.0-45.0) Monocytes (%) (Auto) % (1.0-10.0) Eosinophils (%) (Auto) % (0.0-3.0) Basophils (%) (Auto) % (0.0-2.0) Differential Total Cells Counted 100 Neutrophils % (Manual) 69 % (45-75) Lymphocytes % (Manual) 18 % (20-45) L Monocytes % (Manual) 11 % (1-10) H Eosinophils % (Manual) 2 % (0-3) Basophils % (Manual) 0 % (0-2) Band Neutrophils 0 % (0-8) Platelet Estimate Adequate Platelet Morphology Normal Hypochromasia 3+ Anisocytosis 1+ Sodium Level 146 MMOL/L (136-145) H Potassium Level 3.6 MMOL/L (3.5-5.1) Chloride Level 110 MMOL/L (98-107) H Carbon Dioxide Level 30 MMOL/L (21-32) Anion Gap 7 mmol/L (5-15) Blood Urea Nitrogen 22 mg/dL (7-18) H Creatinine 1.7 MG/DL (0.55-1.30) H Estimat Glomerular Filtration Rate 36.4 mL/min (>60) Glucose Level 102 MG/DL (74-106) Calcium Level 8.8 MG/DL (8.5-10.1) Total Bilirubin 0.2 MG/DL (0.2-1.0) Aspartate Amino Transf (AST/SGOT) 18 U/L (15-37) Alanine Aminotransferase (ALT/SGPT) 6 U/L (12-78) L Alkaline Phosphatase 133 U/L (46-116) H Total Protein 6.4 G/DL (6.4-8.2) Albumin 1.8 G/DL (3.4-5.0) L Globulin 4.6 g/dL Albumin/Globulin Ratio 0.4 (1.0-2.7) L Prothrombin Time 10.9 SEC (9.30-11.50) Prothromb Time International Ratio 1.0 (0.9-1.1) Objective NECK: No JVD. LUNGS: Clear. CARDIOVASCULAR: Irregular S1 and S2 with no gallop or murmur. ABDOMEN: Soft. EXTREMITIES: 1+ pitting edema. Carlos Dean MD Apr 26, 2020 15:30
--- NOTE | 2020-04-26 15:45 | NUR ---
NURSE NOTES: Patient discharged to [facility], sports physiotherapist removed, Kept Picc line and Desai per MD order. Belonging check done and signed by patient. Wound picture and wound care done. Patient is in stable condition. Patient left via gurney with ambulance personnel
[2020-04-26] MEDS ORDERED: Enoxaparin 60mg Inj SUBQ SCH (21:00)
== END 2020-04-26 15:45 | DRG 308 ==
LOC: EDBD 11:56 → EMR 13:05 → 2E 13:08 → EDBEDREQ 14:10
PROC: 30233N1 Transfusion of Nonautologous Red Blood Cells into Peripheral Vein, Percutaneous Approach (ICD-10-PCS; principal; 2020-04-19)
DX: I48.19 Other persistent atrial fibrillation (principal); G93.41 Metabolic encephalopathy; J96.21 Acute and chronic respiratory failure with hypoxia; D68.59 Other primary thrombophilia; E87.2 Acidosis; K55.9 Vascular disorder of intestine, unspecified; I48.92 Unspecified atrial flutter; E87.6 Hypokalemia; E83.42 Hypomagnesemia; D50.9 Iron deficiency anemia, unspecified; M51.36 Other intervertebral disc degeneration, lumbar region; G89.29 Other chronic pain; M25.562 Pain in left knee; M25.561 Pain in right knee; L89.159 Pressure ulcer of sacral region, unspecified stage; M47.816 Spondylosis without myelopathy or radiculopathy, lumbar region; M19.90 Unspecified osteoarthritis, unspecified site; Z88.8 Allergy status to other drugs, medicaments and biological substances; I10 Essential (primary) hypertension; E78.5 Hyperlipidemia, unspecified; Z79.01 Long term (current) use of anticoagulants; M54.30 Sciatica, unspecified side; E66.9 Obesity, unspecified; R56.9 Unspecified convulsions; E86.0 Dehydration
CPT/HCPCS: 36415; 71045; 71046; 80048; 80053; 80202; 80307; 81003; 82270; 82728; 82962; 83540; 83550; 83735; 83880; 84100; 84484; 85007; 85025; 85610; 85730; 86850; 86900; 86901; 86920; 87081; 93005; 96374; 99291; C9399; J8499